=== PATIENT | male | born 1950 ===

== ENCOUNTER 2017-01-28 16:00 | Inpatient (IN) | payer MEDICAID, OTHER, SELFPAY ==
[2017-01-28 16:01] VITALS: BMI 26.4
[2017-01-28 17:15] LABS: BASO % 0.3 % (0.0-2.0); EOS # 0.1 K/uL (0.0-0.7); EOS % 0.8 % (0.0-4.0); HEMATOCRIT 26.5 % (35.0-51.0); LYMPH # 1.7 K/uL (1.0-4.3); LYMPH % 16.9 % (20.0-40.0); MEAN CELL VOLUME 95.9 fl (80.0-94.0); MEAN CORPUSCULAR HEMOGLOBIN 31.2 pg (27.0-31.0); MEAN CORPUSCULAR HGB CONC 32.6 g/dL (33.0-37.0); MEAN PLATELET VOLUME 7.4 fl (7.2-11.7); MONO # 0.8 K/uL (0.0-0.8); MONO % 7.7 % (0.0-10.0); NEUT # 7.4 K/uL (1.8-7.0); NEUT % 74.3 % (50.0-75.0); RED CELL DISTRIBUTION WIDTH 14.7 % (11.5-14.5); WHITE BLOOD COUNT 9.9 K/uL (4.8-10.8)
[2017-01-28 17:25] LABS: ALB/GLOB RATIO 0.9 (1.0-2.1); BILIRUBIN,TOTAL 0.4 mg/dl (0.2-1.3); TOTAL PROTEIN 5.9 G/DL (6.3-8.2)
[2017-01-28 17:30] LABS: POTASSIUM 5.6 MMOL/L (3.6-5.0)
[2017-01-28 17:37] LABS: TROPONIN I 0.021 ng/mL (0.00-0.120)
[2017-01-28] MEDS ORDERED: Dextrose 50% SYRINGE Inj (50 ml) IVP ONE (17:54)
[2017-01-28] MEDS ORDERED: Insulin Regular 100 units/ml IV STA (17:54)
[2017-01-28] MEDS ORDERED: Nitroglycerin 2% 1GM UD TOP STA (17:57)
--- NOTE | 2017-01-28 18:10 | ED PDOC ---
Lower Extremity Pain/Injury Time Seen by Provider: 01/28/17 16:08 Chief Complaint (Nursing): Lower Extremity Problem/Injury Chief Complaint (Provider): Bilateral Leg Swelling History Per: Patient History/Exam Limitations: no limitations Onset/Duration Of Symptoms: Days (x2 weeks) Current Symptoms Are (Timing): Still Present Severity: Moderate Additional Complaint(s): Иван Merritt is a 67 year old male, with a past medical history inclusive of HTN, COPD, anemia, CKD and alcohol abuse, who presents to the ED on 01/28/17, via EMS, for the evaluation of moderate, bilateral leg swelling that he has experienced x2 weeks. Associated lower extremity/foot redness also reported in addition to some shortness of breath, with patient reporting that symptoms have grown worse since onset. He has also noted the presence of chills and a nonproductive cough, but otherwise denies fever or chest pain. Of note, patient was recently admitted to this facility for acute renal failure 1 month ago under the service of the [facility] residents. He is a current resident of a local homeless fci. PMD: [facility] Past Medical History Reviewed: Historical Data, Nursing Documentation, Vital Signs Vital Signs: Last Vital Signs Temp 98.6 F 01/28/17 16:04 Pulse 100 H 01/28/17 16:04 Resp 22 01/28/17 16:04 BP 183/82 H 01/28/17 16:04 Pulse Ox 94 L 01/28/17 16:04 - Medical History PMH: Anemia, Arthritis, COPD, Depression, HTN, Pneumonia, Chronic Kidney Disease , Seizures Denies: HIV - Surgical History Surgical History: Denies: Coronary Stent - Family History Family History: States: Unknown Family Hx - Social History Current smoker - smoking cessation education provided: Yes (heavy (>10 cigarettes/day)) Alcohol: > 2 Drinks/Day Drugs: Denies - Immunization History Hx Tetanus Toxoid Vaccination: No Hx Influenza Vaccination: No Hx Pneumococcal Vaccination: No - Home Medications Home Medications: Ambulatory Orders Medication Instructions Recorded Citalopram [celEXA] 20 mg PO DAILY #30 tab 01/12/17 Furosemide [Lasix] 40 mg PO DAILY #30 tab 01/12/17 Labetalol [Trandate] 200 mg PO BID@0900,2100 #60 tab 01/12/17 amLODIPine [Norvasc] 10 mg PO DAILY #30 tab 01/12/17 cloNIDine [Catapres] 0.3 mg PO TID #90 tab 01/12/17 hydrALAZINE [Apresoline] 20 mg PO Q8 #90 tab 01/12/17 predniSONE [Prednisone] 20 mg PO DAILY #7 tab 01/12/17 - Allergies Allergies/Adverse Reactions: Allergies Allergy/AdvReac Type Severity Reaction Status Date / Time sulfamethoxazole Allergy RASH Verified 04/09/16 11:57 [From ] trimethoprim [From ] Allergy RASH Verified 04/09/16 11:57 Review of Systems Constitutional: Positive for: Chills. Negative for: Fever Cardiovascular: Positive for: Edema (b/l LE swelling w/redness extending to/ including feet). Negative for: Chest Pain Respiratory: Positive for: Cough. Negative for: Sputum Physical Exam - Reviewed Nursing Documentation Reviewed: Yes Vital Signs Reviewed: Yes - Physical Exam Appears: Positive for: Non-toxic, No Acute Distress (disheveled) Head Exam: Positive for: ATRAUMATIC, NORMOCEPHALIC Skin: Positive for: Normal Color, Warm, Dry Eye Exam: Positive for: Normal appearance, PERRL Neck: Positive for: Normal, Painless ROM, Supple Cardiovascular/Chest: Positive for: Regular Rate, Rhythm, Edema (pitting edema noted to b/l LE both above and below knee, inclusive of feet). Negative for: Murmur Respiratory: Positive for: Rhonchi, Respiratory Distress (mild). Negative for: Decreased Breath Sounds, Rales, Wheezing Gastrointestinal/Abdominal: Positive for: Normal Exam, Soft. Negative for: Tenderness, Distended Extremity: Positive for: Normal ROM, Other (erythema noted to b/l LE) Neurologic/Psych: Positive for: Alert, Oriented (x3) - Laboratory Results Result Diagrams: 01/28/17 17:10 01/28/17 17:10 - ECG ECG: Positive for: Interpreted By Me, Viewed By Me ECG Rhythm: Positive for: Normal QRS, Normal ST Segment, Sinus Rhythm, 1st Degree Heart Block. Negative for: ST/T Changes Rate: 89 O2 Sat by Pulse Oximetry: 94 (RA) Pulse Ox Interpretation: Normal - Radiology X-Ray: Interpreted by Me, Viewed By Me X-Ray Interpretation: Other (CHF) - CT Scan/US US LE Vein Bilat Other Rad Studies (CT/US): Read By Radiologist, Radiology Report Reviewed Other Rad Interpretation: no DVT in visualized vascular segments of the LE Medical Decision Making Medical Decision Makin:08 Initial Impression: bilateral LE swelling/erythema, shortness of breath Differential diagnoses include acute on chronic renal failure, anasarca, new onset CHF. Initial Plan: * EKG * Duplex LE Vein Bilat * CXR * Labs * Troponin I * BNP * Reevaluation 17:54 Labs reviewed, indicative of acute on chronic renal failure and hyperkalemia. Additional Orders: * Blood Type/Screen * Blood Culture * Dextrose 50% 50ml IVP * Insulin HR 4 Units IV * Lasix 40mg IVP * Nitro 1in TOP * Albuterol 0.083% 2.5mg INH * Peak Flow Pre/Post Treatment 18:23 US report reviewed: no DVT in the visualized vascular segments of the LE. See full report for further details. Patient will be admitted to Telemetry as a full inpatient under the service of [facility] for further treatment of acute on chronic renal failure and possible new onset CHF. Plan has been discussed with patient, who is in agreement. Condition fair. Scribe Attestation: Documented by Catarina Meyer, acting as a scribe for Dona Moran MD. Provider Scribe Attestation: All medical record entries made by the Scribe were at my direction and personally dictated by me. I have reviewed the chart and agree that the record accurately reflects my personal performance of the history, physical exam, medical decision making, and the department course for this patient. I have also personally directed, reviewed, and agree with the discharge instructions and disposition. Disposition - Clinical Impression Clinical Impression: Anasarca, Acute on chronic renal failure, Hyperkalemia, Anemia - Patient ED Disposition Is Patient to be Admitted: Yes Discussed With Dr.: Jennifer Barrera Doctor Will See Patient In The: ED Counseled Patient/Family Regarding: Studies Performed, Diagnosis - Disposition Disposition Time: 18:23 Condition: FAIR - Pt Status Changed To: Hospital Disposition Of: Inpatient - Admit Certification Admit to Inpatient:: After my assessment, the patient will require hospitalization for at least two midnights. This is because of the severity of symptoms shown, intensity of services needed, and/or the medical risk in this patient being treated as an outpatient. - POA Present On Arrival: None
[2017-01-28] MEDS ORDERED: Insulin Regular 100 units/ml ONE (18:12)
[2017-01-28] MEDS ORDERED: Nitroglycerin 2% 1GM UD ONE (18:13)
[2017-01-28] MEDS ORDERED: Dextrose 50% SYRINGE Inj (50 ml) ONE (18:13)
[2017-01-28] MEDS ORDERED: Albuterol 0.083% Inhal Sol (2.5 mg/3 mL) UD ONE (18:14)
--- NOTE | 2017-01-28 18:23 | US ---
EXAM: US Duplex Bilateral Lower Extremity Veins. CLINICAL HISTORY: 67 years old, male; Pain; Leg, lower; Bilateral; Additional info: Leg swelling pain TECHNIQUE: Real-time ultrasound scan of the veins of the bilateral lower extremities with color Doppler flow, spectral waveform analysis and compression. EXAM DATE/TIME: 01/28/2017 6:11 PM COMPARISON: There are no prior studies for comparison. FINDINGS: Right deep veins: Common femoral, superficial femoral, popliteal and posterior tibial veins were evaluated. All veins examined are compressible. There are no intraluminal filling defects. There is expected blood flow on Doppler imaging. There is change in waveform with augmentation. Left deep veins: unremarkable Common femoral, superficial femoral, popliteal and posterior tibial veins were evaluated. All veins examined are compressible. There are no intraluminal filling defects. There is expected blood flow on Doppler imaging. There is change in waveform with augmentation. Impression: No deep venous thrombosis in the visualized vascular segments of the lower extremities
[2017-01-28] MEDS: Albuterol 0.083% Inhal Sol (2.5 mg/3 mL) UD INH STA ×2 (18:52→18:53)
--- NOTE | 2017-01-28 20:06 | CP.PCM.HP ---
History of Present Illness - History of Present Illness History of Present Illness: Chief complaint: Flu like Symptoms/ Bilateral leg swelling HPI: 67yo homeless M with PMHx HTN, Alcohol abuse, seizure and COPD, sCHF (2016 ECHO LVEF 45-50%) c/o SOB and GUIDRY admitted for CHF excerbation and acute on chronic CKD. Duration x3-4 weeks which have remained the same, no changes recently. a/w GUIDRY. Denies fever, chills, chest pain, palpitation, headache, dizziness, abdominal pain. Compliant with medications. Went to chest clinic and [place], no new meds recieved. Didn't follow up with [facility] or Nephrology Dr. Sandoval. Denies hemoptysis, weight loss. 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 Due for Cyclophosphamide . Evaluated by Nephro, ID, Pulm, H/O. PMHx: COPD, HTN, alcohol abuse, Seizure, Anemia, Hemorrhoids, Depression, arthritis, Epidural Abscess, CHF PSHx: Denies Social hx: ex smoker. h/o Alcohol abuse. denies drug use. Homeless FHx: denies Allergies: Sulfamethoxazole/ trimethoprim Medications: checked in [facility] and last discharge note PCP: [facility], last visit 02/18/16 ED course: CBC CMP pBNP elevated CXR EKG albuterol lasix 40mg IV x1 Insulin 5mg IV x1 Present on Admission - Present on Admission Any Indicators Present on Admission: No Review of Systems - Constitutional Constitutional: absent: Chills, Fever - Cardiovascular Cardiovascular: Dyspnea. absent: Chest Pain - Respiratory Respiratory: Dyspnea, Dyspnea on Exertion - Gastrointestinal Gastrointestinal: absent: Abdominal Pain - Genitourinary Genitourinary: Voiding Freq/Small Amts - Musculoskeletal Musculoskeletal: absent: Back Pain - Neurological Neurological: absent: Headaches Past Patient History - Infectious Disease Hx of Infectious Diseases: None - Past Medical History & Family History Past Medical History?: Yes - Past Social History Alcohol: > 2 Drinks/Day Drugs: Denies - CARDIAC Hx Cardiac Disorders: Yes - PULMONARY Hx Respiratory Disorders: Yes - NEUROLOGICAL Hx Neurological Disorder: No - HEENT Hx HEENT Problems: No - RENAL Hx Chronic Kidney Disease: Yes - ENDOCRINE/METABOLIC Hx Endocrine Disorders: No - HEMATOLOGICAL/ONCOLOGICAL Hx Blood Disorders: No - INTEGUMENTARY Hx Dermatological Problems: No - MUSCULOSKELETAL/RHEUMATOLOGICAL Hx Musculoskeletal Disorders: Yes - GASTROINTESTINAL Hx Gastrointestinal Disorders: Yes Hx Hemorrhoids: Yes - GENITOURINARY/GYNECOLOGICAL Hx Genitourinary Disorders: No - PSYCHIATRIC Hx Psychophysiologic Disorder: Yes - SURGICAL HISTORY Hx Coronary Stent: No - ANESTHESIA Hx Anesthesia: Yes Hx Anesthesia Reactions: No Meds Allergies/Adverse Reactions: Allergies Allergy/AdvReac Type Severity Reaction Status Date / Time sulfamethoxazole Allergy RASH Verified 04/09/16 11:57 [From ] trimethoprim [From ] Allergy RASH Verified 04/09/16 11:57 Physical Exam - Constitutional Appears: Non-toxic, Chronically Ill - Head Exam Head Exam: ATRAUMATIC, NORMAL INSPECTION - Eye Exam Eye Exam: EOMI. absent: Scleral icterus - ENT Exam ENT Exam: Mucous Membranes Moist - Neck Exam Neck exam: Positive for: Normal Inspection - Respiratory Exam Respiratory Exam: Decreased Breath Sounds (upper lung [place]), Rales (lower lung fieds). absent: Wheezes - Cardiovascular Exam Cardiovascular Exam: REGULAR RHYTHM - GI/Abdominal Exam GI & Abdominal Exam: Normal Bowel Sounds, Soft - Extremities Exam Extremities exam: Positive for: pedal edema (pitting 3+/4+), tenderness - Neurological Exam Neurological exam: Alert, Oriented x3 Results - Vital Signs Recent Vital Signs: Last Vital Signs Temp 98 F 01/28/17 19:53 Pulse 100 H 01/28/17 19:53 Resp 20 01/28/17 19:53 BP 142/88 01/28/17 19:53 Pulse Ox 94 L 01/28/17 18:49 - Labs Result Diagrams: 01/28/17 17:10 01/28/17 17:10 Labs: Laboratory Results - last 24 hr 01/28/17 18:45 Blood Type A POSITIVE Antibody Screen Negative BBK History Checked Patient has bt Assessment & Plan - Assessment and Plan (Free Text) Assessment: 67yo homeless M with PMHx HTN, Alcohol abuse, seizure and COPD, sCHF (12/2016 ECHO LVEF 45-50%) c/o SOB and GUIDRY admitted for CHF excerbation and acute on chronic CKD. 1) acute Systolic CHF exacerbation 12/2016 ECHO LVEF 45-50% -pBNP 7860 -lasix 20mg IV BID -daily weight -I/O -cont tele -duonebs -c/s cardio 2) acute on chronic CKD, h/o +ANCA glomerulonephropathy -monitor BUN/Cr -next cyclophosphamide 600mg PO x1 scheduled for 01/31/17 -c/s [employer] Dr Sandoval 3) HTN, secondary to glomerulopathy -c/w hydralazine, amlodipine, clonidine -hold labetolol d/t CHF exacerbation 4)Latent TB -received immunosuppressive tx cyclophosphamide -INH and vitamin 6 5)hyperkalemia K+ 5.6 -recieved insulin in ED -repeat BMP 6)Anemia, chronic -secondary to CKD -F/U H/H 7)Depression -Celexa 8)DVT prophylaxis -heparin -SCDs prn Decision To Admit - Pt Status Changed To: Hospital Disposition Of: Inpatient - Admit Certification Admit to Inpatient:: After my assessment, the patient will require hospitalization for at least two midnights. This is because of the severity of symptoms shown, intensity of services needed, and/or the medical risk in this patient being treated as an outpatient. - . Bed Request Type: Telemetry Admitting Physician: Andrey Mcwilliams
--- NOTE | 2017-01-29 06:56 | RAD ---
HISTORY: dyspnea COMPARISON: 01/09/2017 FINDINGS: LUNGS: Right upper lobe pneumonia. PLEURA: Small left pleural effusion. CARDIOVASCULAR: Normal. OSSEOUS STRUCTURES: No significant abnormalities. VISUALIZED UPPER ABDOMEN: Normal. OTHER FINDINGS: None. IMPRESSION: Right upper lobe pneumonia and small left pleural effusion.
[2017-01-29] MEDS: Albuterol-Ipratrop 3 mg / 0.5 (3 ml) UD INH SCH ×3 (07:59→19:30)
--- NOTE | 2017-01-29 08:18 | CARD ---
APPROVED REPORT EKG Measurement Heart [id number] <Conclusion> Sinus rhythm with 1st degree AV block Right atrial enlargement Borderline ECG
[2017-01-29] MEDS: Pyridoxine 100 mg Tab PO SCH (08:26)
[2017-01-29 08:58] LABS: HEMATOCRIT 23.5 % (35.0-51.0); MEAN CELL VOLUME 95.2 fl (80.0-94.0); MEAN CORPUSCULAR HEMOGLOBIN 31.2 pg (27.0-31.0); MEAN CORPUSCULAR HGB CONC 32.8 g/dL (33.0-37.0); RED CELL DISTRIBUTION WIDTH 14.9 % (11.5-14.5); WHITE BLOOD COUNT 7.1 K/uL (4.8-10.8)
[2017-01-29] MEDS ORDERED: Enoxaparin 30 mg Syringe SC SCH (09:00)
[2017-01-29 09:05] LABS: CALCIUM 7.8 mg/dL (8.4-10.2); POTASSIUM 4.8 MMOL/L (3.6-5.0)
[2017-01-29 12:02] LABS: MAGNESIUM 1.6 MG/DL (1.6-2.3); PHOSPHOROUS 5.1 mg/dl (2.5-4.5)
--- NOTE | 2017-01-29 13:45 | CP.PCM.PCO ---
Physician Communication Note - Physician Communication Note Physician Communication Note: Kaykay MEDRANO Addendum Addendum: 01/29/17 13:36 67 YO M resting comfortable in bed, was admitted early this morning. PT states his breathing has improved overnight and he is feeling better. Denies Chest pain, N/V/D. - Continue current management.
[2017-01-30 06:56] LABS: HEMATOCRIT 24.2 % (35.0-51.0); MEAN CELL VOLUME 95.5 fl (80.0-94.0); MEAN CORPUSCULAR HGB CONC 32.5 g/dL (33.0-37.0); RED CELL DISTRIBUTION WIDTH 14.9 % (11.5-14.5); WHITE BLOOD COUNT 7.4 K/uL (4.8-10.8)
[2017-01-30 07:14] LABS: ALB/GLOB RATIO 0.8 (1.0-2.1); BILIRUBIN,TOTAL 0.3 mg/dl (0.2-1.3); CALCIUM 7.8 mg/dL (8.4-10.2); MAGNESIUM 1.6 MG/DL (1.6-2.3); PHOSPHOROUS 5.5 mg/dl (2.5-4.5); TOTAL PROTEIN 5.4 G/DL (6.3-8.2)
[2017-01-30 07:20] LABS: POTASSIUM 5.5 MMOL/L (3.6-5.0)
[2017-01-30] MEDS: Albuterol-Ipratrop 3 mg / 0.5 (3 ml) UD INH SCH ×4 (07:41→21:33)
--- NOTE | 2017-01-30 09:31 | CP.PCM.PN ---
Subjective - Date & Time of Evaluation Date of Evaluation: 01/30/17 Time of Evaluation: 07:15 - Subjective Subjective: Patient seen and examined bedside. looks comfortable using O2 NC. Reports B/L swelling worse during the last 7 days. Denies chest pain, SOB, N/V. Reports 1 nonbloddy diarrhea today. Patient pending for cyclophosphamide tomorrow. Objective - Vital Signs/Intake and Output Vital Signs (last 24 hours): Temp Pulse Resp BP Pulse Ox 98.9 F 86 18 128/61 94 L 01/30/17 05:27 01/30/17 05:27 01/30/17 05:27 01/30/17 05:27 01/30/17 05:27 Intake and Output: 01/30/17 01/30/17 06:59 18:59 Intake Total 360 Output Total 400 Balance -40 - Medications Medications: Current Medications Albuterol/Ipratropium (Duoneb 3 Mg/0.5 Mg (3 Ml) Ud) 3 ml INH RTID [facility] Last Admin: 01/30/17 07:41 Dose: 3 ml Amlodipine Besylate (Norvasc) 5 mg PO DAILY [facility] Last Admin: 01/29/17 12:30 Dose: 5 mg Citalopram Hydrobromide (Celexa) 20 mg PO DAILY [facility] Last Admin: 01/29/17 08:22 Dose: 20 mg Clonidine HCl (Catapres) 0.3 mg PO TID [facility] Last Admin: 01/29/17 16:47 Dose: 0.3 mg Furosemide (Lasix) 40 mg IVP STAT STA Stop: 01/30/17 09:30 Furosemide (Lasix) 40 mg IVP DAILY [facility] Heparin Sodium (Porcine) (Heparin) 5,000 units SC Q12 [facility] PRN Reason: Protocol Last Admin: 01/29/17 21:42 Dose: 5,000 units Hydralazine HCl (Apresoline) 25 mg PO Q6 [facility] Last Admin: 01/30/17 05:00 Dose: 25 mg Isoniazid (Niazid) 300 mg PO DAILY [facility] Last Admin: 01/29/17 08:25 Dose: 300 mg Labetalol HCl (Trandate) 200 mg PO BID@0900,2100 [facility] Pyridoxine HCl (Vitamin B6) 100 mg PO DAILY [facility] Last Admin: 01/29/17 08:26 Dose: 100 mg - Labs Labs: 01/30/17 06:10 01/30/17 06:10 - Constitutional Appears: Non-toxic, No Acute Distress - Head Exam Head Exam: ATRAUMATIC, NORMOCEPHALIC - Eye Exam Eye Exam: Normal appearance - Respiratory Exam Respiratory Exam: Decreased Breath Sounds, Rales Additional comments: B/L lung bases rales, Left lung base decreased breath entry - Cardiovascular Exam Cardiovascular Exam: REGULAR RHYTHM, +S1, +S2 - GI/Abdominal Exam GI & Abdominal Exam: Distended, Soft, Normal Bowel Sounds Additional comments: distended for fatty tissue or for anasarca in SHERRY - Extremities Exam Extremities Exam: Pedal Edema - Neurological Exam Neurological Exam: Alert, Awake, Oriented x3 - Psychiatric Exam Psychiatric exam: Normal Affect, Normal Mood - Skin Skin Exam: Erythema (scattered small areas of erythema B/L legs ) Assessment and Plan - Assessment and Plan (Free Text) Plan: 67 yo, m , homeless living in a snf, PMHx HTN, Alcohol abuse, seizure, COPD, CHF (12/2016 ECHO LVEF 45-50%), 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 Cyclophosphamide aisha for tomorrow. cyclophosphamide 650 mg IV x1 scheduled for tomorrow. Cyclophosphamide every month x 6 months. Tomorrow second dosis. 3) Pneumonia HCAP -Recent hospitalization. recent discharge 01/13 -SOB, chills, subjective fever -Afebrile on hospital. possible secondary to immunodepression. -CXR: left upper lobe pneumonia. mild left pleural effusion. -Vancomycin 1.25g IV daily renal dosis -Levofloxacin 750 mg Q48 h renal dosis -Rocephin 1 g IV daily 4) HTN - secondary to glomerulopathy -c/w hydralazine, amlodipine, clonidine -hold labetolol d/t CHF exacerbation 5) Latent TB -Started on treatment on last admission -Uncertain if had f/u with chest clinic -c/w INH and vitamin 6 6)hyperkalemia -secondary to renal failure -K 5.5 -recieved insulin in ED -[employer] consult appreciated -F/U BMP 7)Anemia, chronic -secondary to CKD -F/U H/H 8)Depression -Celexa 9)DVT prophylaxis -heparin -SCDs prn
[2017-01-30] MEDS: Pyridoxine 100 mg Tab PO SCH (09:59)
--- NOTE | 2017-01-30 11:08 | CP.PCM.CON ---
History of Present Illness - History of Present Illness History of Present Illness: Patient is 67 years of age admitted with leg swollen. 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 Patient was treated with Cytoxan 750 mg 4 weeks ago and he developed side effect. Review of Systems - Constitutional Constitutional: As Per HPI, Weakness - Cardiovascular Cardiovascular: Leg Edema. absent: Chest Pain - Respiratory Respiratory: Dyspnea on Exertion. absent: Cough - Gastrointestinal Gastrointestinal: absent: Abdominal Pain - Genitourinary Genitourinary: Nocturia - Musculoskeletal Musculoskeletal: Muscle Weakness - Psychiatric Psychiatric: As Per HPI - Endocrine Endocrine: As Per HPI - Hematologic/Lymphatic Hematologic: As Per HPI Past Patient History - Infectious Disease Hx of Infectious Diseases: None - Past Medical History & Family History Past Medical History?: Yes - Past Social History Alcohol: > 2 Drinks/Day Drugs: Denies - CARDIAC Hx Cardiac Disorders: Yes - PULMONARY Hx Respiratory Disorders: Yes - NEUROLOGICAL Hx Neurological Disorder: No - HEENT Hx HEENT Problems: No - RENAL Hx Chronic Kidney Disease: Yes - ENDOCRINE/METABOLIC Hx Endocrine Disorders: No - HEMATOLOGICAL/ONCOLOGICAL Hx Blood Disorders: No - INTEGUMENTARY Hx Dermatological Problems: No - MUSCULOSKELETAL/RHEUMATOLOGICAL Hx Musculoskeletal Disorders: Yes - GASTROINTESTINAL Hx Gastrointestinal Disorders: Yes Hx Hemorrhoids: Yes - GENITOURINARY/GYNECOLOGICAL Hx Genitourinary Disorders: No - PSYCHIATRIC Hx Psychophysiologic Disorder: Yes - SURGICAL HISTORY Hx Coronary Stent: No - ANESTHESIA Hx Anesthesia: Yes Hx Anesthesia Reactions: No Meds Allergies/Adverse Reactions: Allergies Allergy/AdvReac Type Severity Reaction Status Date / Time sulfamethoxazole Allergy RASH Verified 04/09/16 11:57 [From ] trimethoprim [From ] Allergy RASH Verified 04/09/16 11:57 - Medications Medications: Current Medications Albuterol/Ipratropium (Duoneb 3 Mg/0.5 Mg (3 Ml) Ud) 3 ml INH RTID [facility] Last Admin: 01/30/17 07:41 Dose: 3 ml Amlodipine Besylate (Norvasc) 5 mg PO DAILY [facility] Last Admin: 01/30/17 09:58 Dose: 5 mg Citalopram Hydrobromide (Celexa) 20 mg PO DAILY [facility] Last Admin: 01/30/17 09:46 Dose: 20 mg Clonidine HCl (Catapres) 0.3 mg PO TID [facility] Last Admin: 01/30/17 09:45 Dose: 0.3 mg Furosemide (Lasix) 40 mg IVP DAILY [facility] Heparin Sodium (Porcine) (Heparin) 5,000 units SC Q12 [facility] PRN Reason: Protocol Last Admin: 01/30/17 09:46 Dose: 5,000 units Hydralazine HCl (Apresoline) 25 mg PO Q6 [facility] Last Admin: 01/30/17 09:44 Dose: 25 mg Isoniazid (Niazid) 300 mg PO DAILY [facility] Last Admin: 01/30/17 09:57 Dose: 300 mg Labetalol HCl (Trandate) 200 mg PO BID@0900,2100 [facility] Pyridoxine HCl (Vitamin B6) 100 mg PO DAILY [facility] Last Admin: 01/30/17 09:59 Dose: 100 mg Physical Exam - Constitutional Appears: No Acute Distress - ENT Exam ENT Exam: Mucous Membranes Moist - Respiratory Exam Respiratory Exam: NORMAL BREATHING PATTERN. absent: Chest Wall Tenderness - Cardiovascular Exam Cardiovascular Exam: REGULAR RHYTHM. absent: Rubs - GI/Abdominal Exam GI & Abdominal Exam: Normal Bowel Sounds - Extremities Exam Extremities exam: Negative for: calf tenderness - Back Exam Back exam: absent: CVA tenderness (L), CVA tenderness (R) Results - Vital Signs Recent Vital Signs: Last Vital Signs Temp 98.9 F 01/30/17 05:27 Pulse 92 H 01/30/17 09:58 Resp 18 01/30/17 05:27 BP 150/77 01/30/17 09:59 Pulse Ox 94 L 01/30/17 05:27 - Labs Result Diagrams: 01/30/17 06:10 01/30/17 06:10 Labs: Laboratory Results - last 24 hr 01/29/17 01/30/17 11:47 06:10 WBC 7.4 RBC 2.53 L Hgb 7.8 L Hct 24.2 L MCV 95.5 H MCH 31.0 MCHC 32.5 L RDW 14.9 H Plt Count 229 Sodium 144 Potassium 5.5 H Chloride 115 H Carbon Dioxide 18 L Anion Gap 17 BUN 44 H Creatinine 3.3 H Est GFR ( Amer) 23 Est GFR (Non-Af Amer) 19 Random Glucose 95 Calcium 7.8 L Phosphorus 5.1 H 5.5 H Magnesium 1.6 1.6 Total Bilirubin 0.3 AST 18 ALT 29 Alkaline Phosphatase 79 Total Protein 5.4 L Albumin 2.4 L Globulin 3.0 Albumin/Globulin Ratio 0.8 L Assessment & Plan (1) Anemia Status: Acute Priority: High (2) Acute on chronic renal failure Assessment and Plan: Patient perhaps has at this point acute on chronic kidney disease With the kidney biopsy last admission showed: bx reviewed - 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 Patient was given Cytoxan 750 mg Lasix admission and he had some side effect for which he will need to have another dose of Cytoxan tomorrow which has been scheduled. But we will decrease the dose to 650 mg. Also please transfusion at least 1 unit of packed cells before the chemotherapy should be given which is scheduled for tomorrow. Status: Acute
[2017-01-31] MEDS ORDERED: Albuterol-Ipratrop 3 mg / 0.5 (3 ml) UD INH STA ×2 (00:17→06:36)
--- NOTE | 2017-01-31 02:42 | CP.PCM.CON ---
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 The patient is scheduled to receive Cytoxan tomorrow by nephrology. The patient denies blood problems in the past. He denies abnormal bleeding and bruising but did have hematuria during this admission. Past medical history: tobacco abuse, htn, Past surgical history: None Family history: Denies hematologic and oncologic problems Social history: 1ppd x 35 years, denies alcohol, and illicit drug use. Allergies: Bactrim Review of systems: All remaining review of systems including HEENT, cardiovascular, respiratory, gastrointestinal, genitourinary, musculoskeletal, dermatologic, neurologic, and psychiatric are negative unless mentioned in the HPI. Past Patient History - Infectious Disease Hx of Infectious Diseases: None - Past Medical History & Family History Past Medical History?: Yes - Past Social History Alcohol: > 2 Drinks/Day Drugs: Denies - CARDIAC Hx Cardiac Disorders: Yes - PULMONARY Hx Respiratory Disorders: Yes - NEUROLOGICAL Hx Neurological Disorder: No - HEENT Hx HEENT Problems: No - RENAL Hx Chronic Kidney Disease: Yes - ENDOCRINE/METABOLIC Hx Endocrine Disorders: No - HEMATOLOGICAL/ONCOLOGICAL Hx Blood Disorders: No - INTEGUMENTARY Hx Dermatological Problems: No - MUSCULOSKELETAL/RHEUMATOLOGICAL Hx Musculoskeletal Disorders: Yes - GASTROINTESTINAL Hx Gastrointestinal Disorders: Yes Hx Hemorrhoids: Yes - GENITOURINARY/GYNECOLOGICAL Hx Genitourinary Disorders: No - PSYCHIATRIC Hx Psychophysiologic Disorder: Yes - SURGICAL HISTORY Hx Coronary Stent: No - ANESTHESIA Hx Anesthesia: Yes Hx Anesthesia Reactions: No Meds Allergies/Adverse Reactions: Allergies Allergy/AdvReac Type Severity Reaction Status Date / Time sulfamethoxazole Allergy RASH Verified 04/09/16 11:57 [From ] trimethoprim [From ] Allergy RASH Verified 04/09/16 11:57 - Medications Medications: Current Medications Albuterol/Ipratropium (Duoneb 3 Mg/0.5 Mg (3 Ml) Ud) 3 ml INH RTID [facility] Last Admin: 01/30/17 21:33 Dose: 3 ml Amlodipine Besylate (Norvasc) 5 mg PO DAILY [facility] Last Admin: 01/30/17 09:58 Dose: 5 mg Citalopram Hydrobromide (Celexa) 20 mg PO DAILY [facility] Last Admin: 01/30/17 09:46 Dose: 20 mg Clonidine HCl (Catapres) 0.3 mg PO TID [facility] Last Admin: 01/30/17 17:17 Dose: 0.3 mg Famotidine (Pepcid) 20 mg IVPB ONCE ONE Stop: 01/31/17 11:41 Furosemide (Lasix) 40 mg IVP DAILY [facility] Heparin Sodium (Porcine) (Heparin) 5,000 units SC Q12 [facility] PRN Reason: Protocol Last Admin: 01/30/17 21:28 Dose: 5,000 units Hydralazine HCl (Apresoline) 25 mg PO Q6 [facility] Last Admin: 01/30/17 21:28 Dose: 25 mg Cyclophosphamide 650 mg/ (Sodium Chloride) 250 mls @ 0 mls/hr IV ONCE ONE PRN Reason: Per Protocol Stop: 01/31/17 11:36 Ondansetron HCl 16 mg/ Sodium (Chloride) 58 mls @ 116 mls/hr IVPB ONCE ONE Stop: 01/31/17 12:07 Diphenhydramine HCl 25 mg/ (Sodium Chloride) 50.5 mls @ 101 mls/hr IVPB ONCE ONE Stop: 01/31/17 12:08 Dexamethasone 10 mg/ Sodium (Chloride) 51 mls @ 102 mls/hr IVPB ONCE ONE Stop: 01/31/17 12:08 Levofloxacin/Dextrose (Levaquin 750mg) 150 mls @ 100 mls/hr IVPB QOTHERDAY@ 2100 [facility] Last Admin: 01/30/17 22:00 Dose: 100 mls/hr Ceftriaxone Sodium 1 gm/ (Sodium Chloride) 100 mls @ 100 mls/hr IVPB 2000 [facility] Last Admin: 01/30/17 20:45 Dose: 100 mls/hr Vancomycin HCl 1.25 gm/ Sodium (Chloride) 250 mls @ 166.667 mls/hr IVPB 2200 [facility] Last Admin: 01/31/17 00:33 Dose: 166.667 mls/hr Isoniazid (Niazid) 300 mg PO DAILY [facility] Last Admin: 01/30/17 09:57 Dose: 300 mg Labetalol HCl (Trandate) 200 mg PO BID@0900,2100 [facility] Pyridoxine HCl (Vitamin B6) 100 mg PO DAILY [facility] Last Admin: 01/30/17 09:59 Dose: 100 mg Physical Exam - Head Exam Head Exam: ATRAUMATIC - Eye Exam Eye Exam: Normal appearance - ENT Exam ENT Exam: Mucous Membranes Dry - Respiratory Exam Respiratory Exam: NORMAL BREATHING PATTERN - Cardiovascular Exam Cardiovascular Exam: +S1, +S2 - GI/Abdominal Exam GI & Abdominal Exam: Normal Bowel Sounds - Extremities Exam Extremities exam: Positive for: normal inspection - Neurological Exam Neurological exam: Oriented x3 - Psychiatric Exam Psychiatric exam: Normal Affect, Normal Mood - Skin Skin Exam: Warm Results - Vital Signs Recent Vital Signs: Last Vital Signs Temp 98.7 F 01/30/17 23:40 Pulse 78 01/30/17 23:40 Resp 16 01/30/17 23:40 BP 137/62 01/30/17 23:40 Pulse Ox 95 01/30/17 23:40 - Labs Result Diagrams: 01/30/17 06:10 01/30/17 06:10 Labs: Laboratory Results - last 24 hr 01/28/17 01/30/17 18:45 06:10 WBC 7.4 RBC 2.53 L Hgb 7.8 L Hct 24.2 L MCV 95.5 H MCH 31.0 MCHC 32.5 L RDW 14.9 H Plt Count 229 Sodium 144 Potassium 5.5 H Chloride 115 H Carbon Dioxide 18 L Anion Gap 17 BUN 44 H Creatinine 3.3 H Est GFR ( Amer) 23 Est GFR (Non-Af Amer) 19 Random Glucose 95 Calcium 7.8 L Phosphorus 5.5 H Magnesium 1.6 Total Bilirubin 0.3 AST 18 ALT 29 Alkaline Phosphatase 79 Total Protein 5.4 L Albumin 2.4 L Globulin 3.0 Albumin/Globulin Ratio 0.8 L Blood Type A POSITIVE Antibody Screen Negative Crossmatch See Detail BBK History Checked Patient has bt Assessment & Plan (1) Anemia Assessment and Plan: chronic disease, chemotherapy, renal disease recommend transfusing 2U PRBC consider Procrit supplementation to decrease transfusion dependence Thank you for this interesting consult. Status: Acute Priority: High
[2017-01-31 07:03] LABS: RBC URINE 167 /hpf (0-3); URINE BILIRUBIN NEGATIVE (NEGATIVE); URINE BLOOD MODERATE (NEGATIVE); URINE COLOR YELLOW (YELLOW); URINE GLUCOSE (UA) NEG (Normal); URINE KETONE NEGATIVE (NEGATIVE); URINE LEUKOCYTE ESTERASE NEG Leu/uL (Negative); URINE PROTEIN >=500 mg/dL (NEGATIVE); URINE UROBILINOGEN 0.2-1.0 mg/dL (0.2-1.0); WBC URINE 5 /hpf (0-5)
[2017-01-31 07:11] LABS: HEMATOCRIT 25.7 % (35.0-51.0); MEAN CELL VOLUME 94.4 fl (80.0-94.0); MEAN CORPUSCULAR HEMOGLOBIN 31.6 pg (27.0-31.0); MEAN CORPUSCULAR HGB CONC 33.5 g/dL (33.0-37.0); RED CELL DISTRIBUTION WIDTH 14.8 % (11.5-14.5); WHITE BLOOD COUNT 6.9 K/uL (4.8-10.8)
[2017-01-31 07:39] LABS: ALB/GLOB RATIO 0.8 (1.0-2.1); BILIRUBIN,TOTAL 0.2 mg/dl (0.2-1.3); CALCIUM 7.6 mg/dL (8.4-10.2); TOTAL PROTEIN 5.5 G/DL (6.3-8.2)
--- NOTE | 2017-01-31 08:10 | CP.PCM.PN ---
Subjective - Date & Time of Evaluation Date of Evaluation: 01/31/17 Time of Evaluation: 07:00 - Subjective Subjective: Patient seen and examined bedside. Reports dyspnea today in the morning when he was in the restroom. Duoneb given. Patient comfortable now, breathing w/o difficulty and coughing productive white expectoration . Denies chest pain, palpitation. Urinating frequent. no macrohematuria noted. Objective - Vital Signs/Intake and Output Vital Signs (last 24 hours): Temp Pulse Resp BP Pulse Ox 99.4 F 83 18 144/69 95 01/31/17 07:58 01/31/17 07:58 01/31/17 07:58 01/31/17 07:58 01/31/17 07:58 - Medications Medications: Current Medications Albuterol/Ipratropium (Duoneb 3 Mg/0.5 Mg (3 Ml) Ud) 3 ml INH RTID [facility] Last Admin: 01/30/17 21:33 Dose: 3 ml Amlodipine Besylate (Norvasc) 5 mg PO DAILY [facility] Last Admin: 01/30/17 09:58 Dose: 5 mg Citalopram Hydrobromide (Celexa) 20 mg PO DAILY [facility] Last Admin: 01/30/17 09:46 Dose: 20 mg Clonidine HCl (Catapres) 0.3 mg PO TID [facility] Last Admin: 01/30/17 17:17 Dose: 0.3 mg Famotidine (Pepcid) 20 mg IVPB ONCE ONE Stop: 01/31/17 11:41 Furosemide (Lasix) 40 mg IVP DAILY [facility] Heparin Sodium (Porcine) (Heparin) 5,000 units SC Q12 [facility] PRN Reason: Protocol Last Admin: 01/30/17 21:28 Dose: 5,000 units Hydralazine HCl (Apresoline) 25 mg PO Q6 [facility] Last Admin: 01/31/17 04:42 Dose: 25 mg Cyclophosphamide 650 mg/ (Sodium Chloride) 250 mls @ 0 mls/hr IV ONCE ONE PRN Reason: Per Protocol Stop: 01/31/17 11:36 Ondansetron HCl 16 mg/ Sodium (Chloride) 58 mls @ 116 mls/hr IVPB ONCE ONE Stop: 01/31/17 12:07 Diphenhydramine HCl 25 mg/ (Sodium Chloride) 50.5 mls @ 101 mls/hr IVPB ONCE ONE Stop: 01/31/17 12:08 Dexamethasone 10 mg/ Sodium (Chloride) 51 mls @ 102 mls/hr IVPB ONCE ONE Stop: 01/31/17 12:08 Levofloxacin/Dextrose (Levaquin 750mg) 150 mls @ 100 mls/hr IVPB QOTHERDAY@ 2100 [facility] Last Admin: 01/30/17 22:00 Dose: 100 mls/hr Ceftriaxone Sodium 1 gm/ (Sodium Chloride) 100 mls @ 100 mls/hr IVPB 1999 [facility] Last Admin: 01/30/17 20:45 Dose: 100 mls/hr Vancomycin HCl 1.25 gm/ Sodium (Chloride) 250 mls @ 166.667 mls/hr IVPB 2199 [facility] Last Admin: 01/31/17 00:33 Dose: 166.667 mls/hr Isoniazid (Niazid) 300 mg PO DAILY [facility] Last Admin: 01/30/17 09:57 Dose: 300 mg Labetalol HCl (Trandate) 200 mg PO BID@0900,2100 [facility] Pyridoxine HCl (Vitamin B6) 100 mg PO DAILY [facility] Last Admin: 01/30/17 09:59 Dose: 100 mg - Labs Labs: 01/31/17 05:35 01/31/17 05:35 - Constitutional Appears: Non-toxic, No Acute Distress - Head Exam Head Exam: ATRAUMATIC, NORMOCEPHALIC - Eye Exam Eye Exam: Normal appearance - Respiratory Exam Respiratory Exam: Decreased Breath Sounds, Rales Additional comments: Decreased breath sound left lung base. Scattered rales B/L lung bases - Cardiovascular Exam Cardiovascular Exam: REGULAR RHYTHM, +S1, +S2 - GI/Abdominal Exam GI & Abdominal Exam: Soft, Normal Bowel Sounds. 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 Second dosis due. -Cyclophosphamide hold for HCAP 3) Pneumonia HCAP -Recent hospitalization. recent discharge 01/13 -SOB, chills, subjective fever -Afebrile on hospital. possible secondary to immunodepression. -CXR: left upper lobe pneumonia. mild left pleural effusion. -Vancomycin 1.25g IV daily renal dosis -Levofloxacin 750 mg Q48 h renal dosis -Rocephin 1 g IV daily -ID consult suggested 4) HTN - secondary to glomerulopathy -c/w hydralazine, amlodipine, clonidine -hold labetolol d/t CHF exacerbation 5) Latent TB -Started on treatment on last admission -Uncertain if had f/u with chest clinic -c/w INH and vitamin 6 6)hyperkalemia -resolved -secondary to renal failure -K 5.0 corrected -duoneb received today -Piercing Mill Operator consult appreciated -F/U BMP 7)Anemia, chronic -secondary to CKD -F/U H/H 8)Depression -Celexa 9)DVT prophylaxis -heparin. Patient with CKD -SCDs prn
[2017-01-31] MEDS: Albuterol-Ipratrop 3 mg / 0.5 (3 ml) UD INH SCH ×3 (08:30→21:22)
[2017-01-31] MEDS: Pyridoxine 100 mg Tab PO SCH (09:48)
[2017-01-31] MEDS ORDERED: SODIUM CHLORIDE 0.45% IV ONE (11:35)
[2017-01-31] MEDS ORDERED: CYCLOPHOSPHAMIDE IV ONE (11:35)
[2017-01-31] MEDS ORDERED: Dexamethasone 10 MG in Sodium Chloride 0.9% 50 ML IVPB ONE (11:39)
[2017-01-31] MEDS ORDERED: Lidocaine 1% Inj (20ml) ONE (12:35)
--- NOTE | 2017-01-31 12:58 | PCM.SURG1 ---
Surgeon's Initial Post Op Note - Surgeon's Notes Surgeon: Gentry Long Line Teamster: None Type of Anesthesia: Local Pre-Operative Diagnosis: IV access Operative Findings: Patent right basilic vein Post-Operative Diagnosis: IV access Operation Performed: Right basilic vein 4F SL 40cm PICC placed. Specimen/Specimens Removed: None Estimated Blood Loss: EBL {In ML}: 1 Date of Surgery/Procedure: 01/31/17 Time of Surgery/Procedure: 12:55
--- NOTE | 2017-01-31 13:11 | CP.PCM.PN ---
Subjective - Date & Time of Evaluation Date of Evaluation: 01/31/17 Time of Evaluation: 13:00 - Subjective Subjective: No complaints. Objective - Vital Signs/Intake and Output Vital Signs (last 24 hours): Temp Pulse Resp BP Pulse Ox 98 F 80 18 143/76 97 01/31/17 12:47 01/31/17 12:47 01/31/17 12:47 01/31/17 12:47 01/31/17 12:19 - Medications Medications: Current Medications Albuterol/Ipratropium (Duoneb 3 Mg/0.5 Mg (3 Ml) Ud) 3 ml INH RTID [facility] Last Admin: 01/31/17 08:30 Dose: 3 ml Amlodipine Besylate (Norvasc) 5 mg PO DAILY [facility] Last Admin: 01/31/17 09:50 Dose: 5 mg Citalopram Hydrobromide (Celexa) 20 mg PO DAILY [facility] Last Admin: 01/31/17 09:50 Dose: 20 mg Clonidine HCl (Catapres) 0.3 mg PO TID [facility] Last Admin: 01/31/17 09:48 Dose: 0.3 mg Furosemide (Lasix) 40 mg IVP DAILY [facility] Last Admin: 01/31/17 09:51 Dose: 40 mg Heparin Sodium (Porcine) (Heparin) 5,000 units SC Q12 [facility] PRN Reason: Protocol Last Admin: 01/30/17 21:28 Dose: 5,000 units Hydralazine HCl (Apresoline) 25 mg PO Q6 [facility] Last Admin: 01/31/17 09:49 Dose: 25 mg Levofloxacin/Dextrose (Levaquin 750mg) 150 mls @ 100 mls/hr IVPB QOTHERDAY@ 2100 [facility] Last Admin: 01/30/17 22:00 Dose: 100 mls/hr Ceftriaxone Sodium 1 gm/ (Sodium Chloride) 100 mls @ 100 mls/hr IVPB 2000 [facility] Last Admin: 01/30/17 20:45 Dose: 100 mls/hr Vancomycin HCl 1.25 gm/ Sodium (Chloride) 250 mls @ 166.667 mls/hr IVPB 2200 [facility] Last Admin: 01/31/17 00:33 Dose: 166.667 mls/hr Isoniazid (Niazid) 300 mg PO DAILY [facility] Last Admin: 01/31/17 09:49 Dose: 300 mg Labetalol HCl (Trandate) 200 mg PO BID@0900,2100 [facility] Pyridoxine HCl (Vitamin B6) 100 mg PO DAILY [facility] Last Admin: 01/31/17 09:48 Dose: 100 mg - Labs Labs: 01/31/17 05:35 01/31/17 05:35 - Head Exam Head Exam: ATRAUMATIC - ENT Exam ENT Exam: Mucous Membranes Dry - Respiratory Exam Respiratory Exam: NORMAL BREATHING PATTERN - Cardiovascular Exam Cardiovascular Exam: +S1, +S2 - GI/Abdominal Exam GI & Abdominal Exam: Normal Bowel Sounds - Extremities Exam Extremities Exam: Pedal Edema Assessment and Plan (1) ANCA-associated vasculitis Assessment & Plan: on Cytoxan per nephrology would recommend holding chemotherapy while patient has active infection as chemotherapy will immunocompromise the patient Status: Acute (2) Anemia Assessment & Plan: chronic disease, renal diseas, prior chemotherapy agree with transfusion support Status: Acute
--- NOTE | 2017-01-31 14:28 | CP.PCM.PN ---
Subjective - Date & Time of Evaluation Date of Evaluation: 01/31/17 Time of Evaluation: 14:25 - Subjective Subjective: seen and examined feels warm Objective - Vital Signs/Intake and Output Vital Signs (last 24 hours): Temp Pulse Resp BP Pulse Ox 98 F 84 18 150/82 97 01/31/17 12:47 01/31/17 13:30 01/31/17 12:47 01/31/17 13:30 01/31/17 12:19 - Medications Medications: Current Medications Albuterol/Ipratropium (Duoneb 3 Mg/0.5 Mg (3 Ml) Ud) 3 ml INH RTID [facility] Last Admin: 01/31/17 13:54 Dose: 3 ml Amlodipine Besylate (Norvasc) 5 mg PO DAILY [facility] Last Admin: 01/31/17 09:50 Dose: 5 mg Citalopram Hydrobromide (Celexa) 20 mg PO DAILY [facility] Last Admin: 01/31/17 09:50 Dose: 20 mg Clonidine HCl (Catapres) 0.3 mg PO TID [facility] Last Admin: 01/31/17 13:30 Dose: Not Given Furosemide (Lasix) 40 mg IVP DAILY [facility] Last Admin: 01/31/17 09:51 Dose: 40 mg Heparin Sodium (Porcine) (Heparin) 5,000 units SC Q12 [facility] PRN Reason: Protocol Last Admin: 01/30/17 21:28 Dose: 5,000 units Hydralazine HCl (Apresoline) 25 mg PO Q6 [facility] Last Admin: 01/31/17 09:49 Dose: 25 mg Levofloxacin/Dextrose (Levaquin 750mg) 150 mls @ 100 mls/hr IVPB QOTHERDAY@ 2100 [facility] Last Admin: 01/30/17 22:00 Dose: 100 mls/hr Ceftriaxone Sodium 1 gm/ (Sodium Chloride) 100 mls @ 100 mls/hr IVPB 2000 [facility] Last Admin: 01/30/17 20:45 Dose: 100 mls/hr Vancomycin HCl 1.25 gm/ Sodium (Chloride) 250 mls @ 166.667 mls/hr IVPB 2200 [facility] Last Admin: 01/31/17 00:33 Dose: 166.667 mls/hr Isoniazid (Niazid) 300 mg PO DAILY [facility] Last Admin: 01/31/17 09:49 Dose: 300 mg Labetalol HCl (Trandate) 200 mg PO BID@0900,2100 [facility] Ondansetron HCl (Zofran Inj) 4 mg IVP Q6 [facility] PRN Reason: Nausea/Vomiting Last Admin: 01/31/17 14:22 Dose: 4 mg Pyridoxine HCl (Vitamin B6) 100 mg PO DAILY [facility] Last Admin: 01/31/17 09:48 Dose: 100 mg - Labs Labs: 01/31/17 05:35 01/31/17 05:35 - Constitutional Appears: Non-toxic - Head Exam Head Exam: ATRAUMATIC - Eye Exam Eye Exam: Normal appearance - ENT Exam ENT Exam: Normal Exam - Neck Exam Neck Exam: Normal Inspection - Respiratory Exam Additional comments: dec bs at bases - Cardiovascular Exam Cardiovascular Exam: +S1, +S2 - GI/Abdominal Exam GI & Abdominal Exam: Normal Bowel Sounds - Extremities Exam Additional comments: 1 +edema - Neurological Exam Neurological Exam: Alert, Oriented x3 - Psychiatric Exam Psychiatric exam: Normal Affect - Skin Skin Exam: Warm Assessment and Plan - Assessment and Plan (Free Text) Assessment: arf / pauci-immune gn / anemia / ? gn / chf / htn plan: nicki - renal fxn stable. Cytoxan was held today given concern for infection. Its not clear if he actually has PNA - could possibly be manifestation of vasculitis? Discussed w/ Dr. Jesse Obrien to consider pulm consult for BAL and chest CT to image further. Also he should be on prednisone since his initial diagnosis of pauci-immune vasculitis will restart 40 mg po daily - does not sound like he was taking any po pred after his last discharge. will check crp/esr/ repeat anca. Recc also consider procalcitonin. Please check vanc levels.
--- NOTE | 2017-01-31 18:54 | VASCULAR ---
Procedure: Ultrasound and fluoroscopically placed Right upper extremity PICC. Clinical indication: Long-term IV antibiotics. Technique: The relative risks and indications of the procedure were explained to the patient and written informed consent obtained. The patient was placed supine on the angiographic table and the right arm prepped and draped in the usual sterile fashion. A tourniquet was applied to the right axilla. 1% lidocaine was used to anesthetize the skin and soft tissues at the puncture site above the elbow. The right basilic vein was punctured under direct ultrasound guidance with a micropuncture set. A permanent image was stored. A 0.018 guidewire was advanced centrally and used to measure the length to the SVC/RA junction. A 4 Citizen [place] single-lumen PICC, size 40 cm, was advanced to the SVC/RA junction under fluoroscopic guidance. The catheter was flushed and secured. The patient tolerated the procedure well. Postprocedure chest image was obtained to ensure location of the catheter tip at the SVC right atrial junction. Impression: Ultrasound and fluoroscopically placed right upper extremity PICC. A 4 Citizen [place] single-lumen PICC, size 40 cm was advanced to the SVC/RA junction. PICC ready for use.
[2017-02-01 08:12] LABS: BASO % 0.3 % (0.0-2.0); HEMATOCRIT 26.7 % (35.0-51.0); LYMPH # 0.6 K/uL (1.0-4.3); LYMPH % 14.6 % (20.0-40.0); MEAN CELL VOLUME 95.4 fl (80.0-94.0); MEAN CORPUSCULAR HGB CONC 32.4 g/dL (33.0-37.0); MONO # 0.1 K/uL (0.0-0.8); MONO % 2.8 % (0.0-10.0); NEUT # 3.3 K/uL (1.8-7.0); NEUT % 82.3 % (50.0-75.0); RED CELL DISTRIBUTION WIDTH 14.8 % (11.5-14.5)
[2017-02-01] MEDS: Albuterol-Ipratrop 3 mg / 0.5 (3 ml) UD INH SCH ×3 (08:16→20:47)
[2017-02-01 08:33] LABS: ALB/GLOB RATIO 0.8 (1.0-2.1); BILIRUBIN,TOTAL 0.2 mg/dl (0.2-1.3); TOTAL PROTEIN 5.6 G/DL (6.3-8.2)
[2017-02-01] MEDS: Pyridoxine 100 mg Tab PO SCH (08:36)
--- NOTE | 2017-02-01 08:50 | CP.PCM.PN ---
Subjective - Date & Time of Evaluation Date of Evaluation: 02/01/17 Time of Evaluation: 07:35 - Subjective Subjective: Patient seen and examined bedside feeling better compared with yesterday. Using O2 Nc. Breathing comfortable w/o dyspnea. Denies fever, chest pain, palpitation , N/V/D. Reports is urinating less than usual aprox 600 ml from yesterday. Will ask nurse to f/u diuresis closely Objective - Vital Signs/Intake and Output Vital Signs (last 24 hours): Temp Pulse Resp BP Pulse Ox 97.8 F 68 18 147/75 97 02/01/17 08:14 02/01/17 08:36 02/01/17 08:14 02/01/17 08:36 02/01/17 08:14 - Medications Medications: Current Medications Albuterol/Ipratropium (Duoneb 3 Mg/0.5 Mg (3 Ml) Ud) 3 ml INH RTID [facility] Last Admin: 02/01/17 08:16 Dose: 3 ml Amlodipine Besylate (Norvasc) 5 mg PO DAILY [facility] Last Admin: 02/01/17 08:36 Dose: 5 mg Citalopram Hydrobromide (Celexa) 20 mg PO DAILY [facility] Last Admin: 02/01/17 08:36 Dose: 20 mg Clonidine HCl (Catapres) 0.3 mg PO TID [facility] Last Admin: 02/01/17 08:35 Dose: 0.3 mg Furosemide (Lasix) 40 mg IVP DAILY [facility] Last Admin: 02/01/17 08:36 Dose: 40 mg Heparin Sodium (Porcine) (Heparin) 5,000 units SC Q12 [facility] PRN Reason: Protocol Last Admin: 02/01/17 08:37 Dose: 5,000 units Hydralazine HCl (Apresoline) 25 mg PO Q6 [facility] Last Admin: 02/01/17 04:36 Dose: 25 mg Levofloxacin/Dextrose (Levaquin 750mg) 150 mls @ 100 mls/hr IVPB QOTHERDAY@ 2100 [facility] Last Admin: 01/30/17 22:00 Dose: 100 mls/hr Ceftriaxone Sodium 1 gm/ (Sodium Chloride) 100 mls @ 100 mls/hr IVPB 2000 [facility] Last Admin: 01/31/17 21:30 Dose: 100 mls/hr Vancomycin HCl 1.25 gm/ Sodium (Chloride) 250 mls @ 166.667 mls/hr IVPB 2200 [facility] Last Admin: 01/31/17 22:15 Dose: 166.667 mls/hr Isoniazid (Niazid) 300 mg PO DAILY [facility] Last Admin: 02/01/17 08:36 Dose: 300 mg Labetalol HCl (Trandate) 200 mg PO BID@0900,2100 [facility] Ondansetron HCl (Zofran Inj) 4 mg IVP Q6 [facility] PRN Reason: Nausea/Vomiting Last Admin: 01/31/17 14:22 Dose: 4 mg Prednisone (Prednisone Tab) 40 mg PO DAILY [facility] Last Admin: 02/01/17 08:36 Dose: 40 mg Pyridoxine HCl (Vitamin B6) 100 mg PO DAILY [facility] Last Admin: 02/01/17 08:36 Dose: 100 mg - Labs Labs: 02/01/17 06:45 02/01/17 06:45 - Constitutional Appears: Non-toxic, No Acute Distress - Head Exam Head Exam: ATRAUMATIC, NORMOCEPHALIC - ENT Exam ENT Exam: Normal Exam - Respiratory Exam Respiratory Exam: Decreased Breath Sounds, Rales, Rhonchi Additional comments: Left lung base decreased breath sound and Scattered rales Scattered rales right lung base scattered rhonci anterior chest - Cardiovascular Exam Cardiovascular Exam: REGULAR RHYTHM, +S1, +S2 - GI/Abdominal Exam GI & Abdominal Exam: Soft, Normal Bowel Sounds. 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 Cyclophosphamide hold for possible sepsis (HCAP). next will be second dosis. 3) Pneumonia HCAP -Recent hospitalization. recent discharge 01/13 -SOB, chills, subjective fever -Afebrile on hospital. possible secondary to immunodepression. -CXR: left upper lobe pneumonia. mild left pleural effusion. -Vancomycin 1.25g IV daily renal dosis 3day -Levofloxacin 750 mg Q48 h renal dosis 2day -Rocephin 1 g IV daily 3day -ID consult suggested -Pulmonology consult appreciated -vanco trough for tomorrow 4) HTN - secondary to glomerulopathy -c/w hydralazine, amlodipine, clonidine -hold labetolol d/t CHF exacerbation 5) Latent TB -Started on treatment on last admission -Uncertain if had f/u with chest clinic -c/w INH and vitamin 6 6)hyperkalemia -secondary to renal failure -K 6.0 -duoneb 2 doses yest and 1 dose received today -Kayexalate 30 mg PO -Bradder consult appreciated -F/U BMP 16:00 7)Anemia, chronic -secondary to CKD -Hem-Onc consult appreciated: hold cyclophosphamide for now -F/U H/H 8)Depression -Celexa 9)DVT prophylaxis -heparin. Patient with CKD
--- NOTE | 2017-02-01 09:34 | CT ---
PROCEDURE: HISTORY: RUL Pna COMPARISON: 12/24/2016 TECHNIQUE: FINDINGS: There is re-demonstration of large bilateral pleural effusions with compressive atelectasis at the lung bases. There is a new right upper lobe interstitial infiltrate as well as alveolar infiltrate in the right middle lobe and right lower lobe. There is a small pericardial effusion. There is no significant adenopathy. Right PICC line is in place. The proximal tracheobronchial tree is patent. The upper abdomen is unremarkable. No suspicious skeletal lesions are observed. IMPRESSION: No significant change in large bilateral pleural effusions. New right upper lobe, right middle lobe and right lower lobe infiltrates. Small pericardial effusion.
[2017-02-01] MEDS ORDERED: Sod Polystyrene Sulf 15 gm/60 ml Oral Susp PO ONE ×2 (09:45→18:59)
--- NOTE | 2017-02-01 09:58 | CP.PCM.CON ---
History of Present Illness - History of Present Illness History of Present Illness: This 67 year old male, former cigarette smoker with latent Tb, presented to the emergency room with increased dyspnea on exertion. 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 He had been on treatment and received one dose of cyclophosphamide and was scheduled for another dose when he presented with the above. He has been receiving prophylactic INH along with his other medications. He has had a CT chest performed which shows bilateral pleural effusions and passive basal atelectasis, but also reveals a RUL interstitial and alveolar infiltrate as well. He denies any chest pain or productive cough. No hemoptysis. No fever or chills. Past Patient History - Infectious Disease Hx of Infectious Diseases: None - Past Medical History & Family History Past Medical History?: Yes - Past Social History Smoking Status: Former Smoker (recently quit, was heavy smoker before) Chewing Tobacco Use: No Cigar Use: No Alcohol: > 2 Drinks/Day (previous heavy alcohol intake) Drugs: Denies Home Situation {Lives}: Homeless - CARDIAC Hx Hypertension: Yes - PULMONARY Hx Chronic Obstructive Pulmonary Disease (COPD): Yes Hx Pneumonia: Yes Other/Comment: latent tuberculosis - NEUROLOGICAL Hx Neurological Disorder: No - HEENT Hx HEENT Problems: No - RENAL Hx Chronic Kidney Disease: Yes Other/Comment: glomerulonephritis - ENDOCRINE/METABOLIC Hx Endocrine Disorders: No - HEMATOLOGICAL/ONCOLOGICAL Hx Anemia: Yes - INTEGUMENTARY Hx Dermatological Problems: No - MUSCULOSKELETAL/RHEUMATOLOGICAL Other/Comment: paraspinal abscess - GASTROINTESTINAL Hx Gastrointestinal Disorders: Yes Hx Hemorrhoids: Yes - GENITOURINARY/GYNECOLOGICAL Hx Genitourinary Disorders: No - PSYCHIATRIC Hx Anxiety: Yes - ANESTHESIA Hx Anesthesia: Yes Hx Anesthesia Reactions: No Meds Allergies/Adverse Reactions: Allergies Allergy/AdvReac Type Severity Reaction Status Date / Time sulfamethoxazole Allergy RASH Verified 04/09/16 11:57 [From ] trimethoprim [From ] Allergy RASH Verified 04/09/16 11:57 - Medications Medications: Current Medications Albuterol/Ipratropium (Duoneb 3 Mg/0.5 Mg (3 Ml) Ud) 3 ml INH RTID [facility] Last Admin: 02/01/17 08:16 Dose: 3 ml Amlodipine Besylate (Norvasc) 5 mg PO DAILY [facility] Last Admin: 02/01/17 08:36 Dose: 5 mg Citalopram Hydrobromide (Celexa) 20 mg PO DAILY [facility] Last Admin: 02/01/17 08:36 Dose: 20 mg Clonidine HCl (Catapres) 0.3 mg PO TID [facility] Last Admin: 02/01/17 08:35 Dose: 0.3 mg Furosemide (Lasix) 40 mg IVP DAILY [facility] Last Admin: 02/01/17 08:36 Dose: 40 mg Heparin Sodium (Porcine) (Heparin) 5,000 units SC Q12 [facility] PRN Reason: Protocol Last Admin: 02/01/17 08:37 Dose: 5,000 units Hydralazine HCl (Apresoline) 25 mg PO Q6 [facility] Last Admin: 02/01/17 04:36 Dose: 25 mg Levofloxacin/Dextrose (Levaquin 750mg) 150 mls @ 100 mls/hr IVPB QOTHERDAY@ 2100 [facility] Last Admin: 01/30/17 22:00 Dose: 100 mls/hr Ceftriaxone Sodium 1 gm/ (Sodium Chloride) 100 mls @ 100 mls/hr IVPB 2000 [facility] Last Admin: 01/31/17 21:30 Dose: 100 mls/hr Vancomycin HCl 1.25 gm/ Sodium (Chloride) 250 mls @ 166.667 mls/hr IVPB 2200 [facility] Last Admin: 01/31/17 22:15 Dose: 166.667 mls/hr Isoniazid (Niazid) 300 mg PO DAILY [facility] Last Admin: 02/01/17 08:36 Dose: 300 mg Labetalol HCl (Trandate) 200 mg PO BID@0900,2100 [facility] Ondansetron HCl (Zofran Inj) 4 mg IVP Q6 PRN PRN Reason: Nausea/Vomiting Last Admin: 01/31/17 14:22 Dose: 4 mg Prednisone (Prednisone Tab) 40 mg PO DAILY [facility] Last Admin: 02/01/17 08:36 Dose: 40 mg Pyridoxine HCl (Vitamin B6) 100 mg PO DAILY [facility] Last Admin: 02/01/17 08:36 Dose: 100 mg Physical Exam - Additional Findings Additional findings: Well nourished, well developed, in no distress, cooperative with the exam. No jaundice, + dependant edema of both legs to the knees, no cyanosis, no calf tenderness. Pharynx is pink and moist, no exudate. Nares are patent bilaterally, no bleeding. Neck is supple and trachea midline, no JVD or carotid bruit. + myoid edema, no palpable lymphadenopathy. Dullness on percussion of lung bases, no subcutaneous emphysema, equal expansion. Breath sounds are diminished bilaterally w/o audible wheezing. No bronchial breathing, no egophony, medium rales in the RUL laterally and posteriorly. Sonorous rhonchi are present in dependant areas of both lungs. Heart sounds are distant, rhythm is regular. Results - Vital Signs Recent Vital Signs: Last Vital Signs Temp 97.8 F 02/01/17 08:14 Pulse 68 02/01/17 09:00 Resp 18 02/01/17 08:14 BP 147/75 02/01/17 08:36 Pulse Ox 97 02/01/17 08:14 - Labs Result Diagrams: 02/01/17 06:45 02/03/17 05:20 Labs: Laboratory Results - last 24 hr 01/31/17 01/31/17 02/01/17 16:51 21:30 06:45 WBC 4.0 L RBC 2.80 L Hgb 8.7 L Hct 26.7 L MCV 95.4 H MCH 31.0 MCHC 32.4 L RDW 14.8 H Plt Count 244 MPV 8.0 Neut % (Auto) 82.3 H Lymph % (Auto) 14.6 L [place] % (Auto) 2.8 Eos % (Auto) 0.0 Baso % (Auto) 0.3 Neut # 3.3 Lymph # 0.6 L [place] # 0.1 Eos # 0.0 Baso # 0.0 Sodium 142 Potassium 6.0 H Chloride 111 H Carbon Dioxide 18 L Anion Gap 19 BUN 39 H Creatinine 3.2 H Est GFR ( Amer) 24 Est GFR (Non-Af Amer) 20 Random Glucose 145 H Calcium 8.0 L Total Bilirubin 0.2 AST 21 ALT 22 Alkaline Phosphatase 81 C-React Prot High Sens > 15.00 H Total Protein 5.6 L Albumin 2.5 L Globulin 3.1 Albumin/Globulin Ratio 0.8 L Ur Random Creatinine 41.9 Assessment & Plan (1) ANCA-associated vasculitis Status: Chronic Priority: High (2) Pneumonia Status: Acute Priority: High (3) Pleural effusion Status: Acute Priority: High - Assessment and Plan (Free Text) Plan: Agree with antibiotic regimen for RUL pneumonia in an immune compromised host. Cyclophosphamide currently being held until pneumonia improves. - Date & Time Date: 02/01/17 Time: 09:57
--- NOTE | 2017-02-01 13:43 | CP.PCM.CON ---
History of Present Illness - History of Present Illness History of Present Illness: 67yo homeless M with PMHx HTN, Alcohol abuse, seizure and COPD, sCHF (12/2016 ECHO LVEF 45-50%) c/o SOB and GUIDRY admitted for CHF excerbation and acute on chronic CKD. Duration x3-4 weeks which have remained the same, no changes recently. a/w GUIDRY. Denies fever, chills, chest pain, palpitation, headache, dizziness, abdominal pain. Compliant with medications. Went to chest clinic and [place], no new meds recieved. Didn't follow up with [facility] or Nephrology Dr. Sandoval. Denies hemoptysis, weight loss. 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 Due for Cyclophosphamide . Evaluated by Nephro, ID, Pulm, H/O. PMHx: COPD, HTN, alcohol abuse, Seizure, Anemia, Hemorrhoids, Depression, arthritis, Epidural Abscess, CHF PSHx: Denies Social hx: ex smoker. h/o Alcohol abuse. denies drug use. Homeless FHx: denies Allergies: Sulfamethoxazole/ trimethoprim Review of Systems - Constitutional Constitutional: As Per HPI - EENT Eyes: absent: As Per HPI, Blind Spots, Blurred Vision, Change in Vision, Decreased Night Vision, Diplopia, Discharge, Dry Eye, Exophthalmos, Floaters, Irritation, Itchy Eyes, Loss of Peripheral Vision, Pain, Photophobia, Requires Corrective Lenses, Sees Flashes, Spots in Vision, Tunnel Vision, Other Visual Disturbances, Loss of Vision, Other Ears: absent: As Per HPI, Decreased Hearing, Ear Discharge, Ear Pain, Tinnitus, Abnormal Hearing, Disequilibrium, Dizziness, Other Nose/Mouth/Throat: absent: As Per HPI, Epistaxis, Nasal Congestion, Nasal Discharge, Nasal Obstruction, Nasal Trauma, Nose Pain, Post Nasal Drip, Sinus Pain, Sinus Pressure, Bleeding Gums, Change in Voice, Dental Pain, Dry Mouth, Dysphagia, Halitosis, Hoarsness, Lip Swelling, Mouth Lesions, Mouth Pain, Odynophagia, Sore Throat, Throat Swelling, Tongue Swelling, Facial Pain, Neck Pain, Neck Mass, Other - Cardiovascular Cardiovascular: absent: As Per HPI, Acrocyanosis, Chest Pain, Chest Pain at Rest , Chest Pain with Activity, Claudication, Diaphoresis, Dyspnea, Dyspnea on Exertion, Edema, Irregular Heart Rhythm, Pain Radiating to Arm/Neck/Jaw, Leg Edema, Leg Ulcers, Lightheadedness, Orthopnea, Palpitations, Paroxysmal Nocturnal Dyspnea, Pedal Edema, Radiating Pain, Rapid Heart Rate, Slow Heart Rate, Syncope, Other - Respiratory Respiratory: As Per HPI, Cough, Dyspnea. absent: Hemoptysis - Gastrointestinal Gastrointestinal: absent: As Per HPI, Abdominal Pain, Belching, Bloating, Change in Bowel Habits, Change in Stool Character, [place] Emesis, Constipation, Cramping, Diarrhea, Dyspepsia, Dysphagia, Early Satiety, Excessive Flatus, Fecal Incontinence, Heartburn, Hematemesis, Hematochezia, Loose Stools, Melena, Nausea, Odynophagia, Temesmus, Vomiting, Other - Genitourinary Genitourinary: absent: As Per HPI, Change in Urinary Stream, Difficulty Urinating, Dysuria, Flank Pain, Hematuria, Pyuria, Nocturia, Urinary Incontinence, Urinary Frequency, Urinary Hesitance, Urinary Urgency, Voiding Freq/Small Amts, Freq UTI, Hx Renal/Bladder Calculi, Hx /Renal Surgery, Bladder Distension, Other - Musculoskeletal Musculoskeletal: As Per HPI - Integumentary Integumentary: As Per HPI - Neurological Neurological: absent: As Per HPI, Abnormal Gait, Abnormal Hearing, Abnormal Movements, Abnormal Speech, Behavioral Changes, Burning Sensations, Confusion, Convulsions, Disequilibrium, Dizziness, Numbness, Focal Weakness, Frequent Falls , Headaches, Lack of Coordination, Loss of Vision, Memory Loss, Paresthesias, Radicular Pain, Restless Legs, Sensory Deficit, Syncope, Tingling, Tremor, Vertigo, Weakness, Other Visual Disturbances, Other - Psychiatric Psychiatric: absent: As Per HPI, Abnormal Sleep Pattern, Anhedonia, Anxiety, Auditory Hallucinations, Behavioral Changes, Change in Appetite, Change in Libido, Confusion, Depression, Difficulty Concentrating, Hallucinations, Homicidal Ideation, Hopelessness, Irritability, Memory Loss, Mood Swings, Panic Attacks, Paranoia, Suicidal Ideation, Visual Hallucinations, Tactile Hallucinations, Other - Endocrine Endocrine: absent: As Per HPI, Change in Body Appearance, Change in Libido, Cold Intolorance, Deepening of Voice, Excessive Sweating, Fatigue, Flushing, Heat Intolorance, Increase in Ring/Shoe/Hat Size, Palpitations, Polydipsia, Polyphagia, Polyuria, Other - Hematologic/Lymphatic Hematologic: absent: As Per HPI, Easy Bleeding, Easy Bruising, Lymphadenopathy, Other Past Patient History - Infectious Disease Hx of Infectious Diseases: None - Past Medical History & Family History Past Medical History?: Yes - Past Social History Alcohol: > 2 Drinks/Day Drugs: Denies - CARDIAC Hx Cardiac Disorders: Yes - PULMONARY Hx Respiratory Disorders: Yes - NEUROLOGICAL Hx Neurological Disorder: No - HEENT Hx HEENT Problems: No - RENAL Hx Chronic Kidney Disease: Yes - ENDOCRINE/METABOLIC Hx Endocrine Disorders: No - HEMATOLOGICAL/ONCOLOGICAL Hx Blood Disorders: No - INTEGUMENTARY Hx Dermatological Problems: No - MUSCULOSKELETAL/RHEUMATOLOGICAL Hx Musculoskeletal Disorders: Yes - GASTROINTESTINAL Hx Gastrointestinal Disorders: Yes Hx Hemorrhoids: Yes - GENITOURINARY/GYNECOLOGICAL Hx Genitourinary Disorders: No - PSYCHIATRIC Hx Psychophysiologic Disorder: Yes - SURGICAL HISTORY Hx Coronary Stent: No - ANESTHESIA Hx Anesthesia: Yes Hx Anesthesia Reactions: No Meds Allergies/Adverse Reactions: Allergies Allergy/AdvReac Type Severity Reaction Status Date / Time sulfamethoxazole Allergy RASH Verified 04/09/16 11:57 [From ] trimethoprim [From ] Allergy RASH Verified 04/09/16 11:57 - Medications Medications: Current Medications Albuterol/Ipratropium (Duoneb 3 Mg/0.5 Mg (3 Ml) Ud) 3 ml INH RTID [facility] Last Admin: 02/01/17 08:16 Dose: 3 ml Amlodipine Besylate (Norvasc) 5 mg PO DAILY [facility] Last Admin: 02/01/17 08:36 Dose: 5 mg Citalopram Hydrobromide (Celexa) 20 mg PO DAILY [facility] Last Admin: 02/01/17 08:36 Dose: 20 mg Clonidine HCl (Catapres) 0.3 mg PO TID [facility] Last Admin: 02/01/17 12:30 Dose: 0.3 mg Furosemide (Lasix) 40 mg IVP DAILY [facility] Last Admin: 02/01/17 08:36 Dose: 40 mg Heparin Sodium (Porcine) (Heparin) 5,000 units SC Q12 [facility] PRN Reason: Protocol Last Admin: 02/01/17 08:37 Dose: 5,000 units Hydralazine HCl (Apresoline) 25 mg PO Q6 [facility] Last Admin: 02/01/17 10:00 Dose: 25 mg Levofloxacin/Dextrose (Levaquin 750mg) 150 mls @ 100 mls/hr IVPB QOTHERDAY@ 2100 [facility] Last Admin: 01/30/17 22:00 Dose: 100 mls/hr Ceftriaxone Sodium 1 gm/ (Sodium Chloride) 100 mls @ 100 mls/hr IVPB 2000 [facility] Last Admin: 01/31/17 21:30 Dose: 100 mls/hr Vancomycin HCl 1.25 gm/ Sodium (Chloride) 250 mls @ 166.667 mls/hr IVPB 2200 [facility] Last Admin: 01/31/17 22:15 Dose: 166.667 mls/hr Isoniazid (Niazid) 300 mg PO DAILY [facility] Last Admin: 02/01/17 08:36 Dose: 300 mg Labetalol HCl (Trandate) 200 mg PO BID@0900,2100 [facility] Ondansetron HCl (Zofran Inj) 4 mg IVP Q6 PRN PRN Reason: Nausea/Vomiting Last Admin: 01/31/17 14:22 Dose: 4 mg Prednisone (Prednisone Tab) 40 mg PO DAILY [facility] Last Admin: 02/01/17 08:36 Dose: 40 mg Pyridoxine HCl (Vitamin B6) 100 mg PO DAILY [facility] Last Admin: 02/01/17 08:36 Dose: 100 mg Physical Exam - Constitutional Appears: Non-toxic, Chronically Ill - Head Exam Head Exam: NORMOCEPHALIC - Eye Exam Eye Exam: PERRL. absent: Scleral icterus - ENT Exam ENT Exam: Mucous Membranes Dry, Normal External Ear Exam - Neck Exam Neck exam: Negative for: Lymphadenopathy, Thyromegaly - Respiratory Exam Respiratory Exam: Decreased Breath Sounds, Rhonchi - Cardiovascular Exam Cardiovascular Exam: REGULAR RHYTHM, +S1, +S2 - GI/Abdominal Exam GI & Abdominal Exam: Diminished Bowel Sounds, Soft. absent: Tenderness - Rectal Exam Rectal Exam: Deferred - Exam Exam: NORMAL INSPECTION - Extremities Exam Extremities exam: Positive for: pedal edema, pedal pulses present. Negative for : calf tenderness, tenderness - Back Exam Back exam: absent: CVA tenderness (L), CVA tenderness (R) - Neurological Exam Neurological exam: Alert, CN II-XII Intact, Oriented x3, Reflexes Normal - Psychiatric Exam Psychiatric exam: Normal Mood - Skin Skin Exam: Dry Results - Vital Signs Recent Vital Signs: Last Vital Signs Temp 98.5 F 02/01/17 12:01 Pulse 77 02/01/17 12:30 Resp 18 02/01/17 12:01 BP 148/75 02/01/17 12:30 Pulse Ox 97 02/01/17 12:01 - Labs Result Diagrams: 02/01/17 06:45 02/01/17 06:45 Labs: Laboratory Results - last 24 hr 01/31/17 01/31/17 02/01/17 16:51 21:30 06:45 WBC 4.0 L RBC 2.80 L Hgb 8.7 L Hct 26.7 L MCV 95.4 H MCH 31.0 MCHC 32.4 L RDW 14.8 H Plt Count 244 MPV 8.0 Neut % (Auto) 82.3 H Lymph % (Auto) 14.6 L [place] % (Auto) 2.8 Eos % (Auto) 0.0 Baso % (Auto) 0.3 Neut # 3.3 Lymph # 0.6 L [place] # 0.1 Eos # 0.0 Baso # 0.0 Sodium 142 Potassium 6.0 H Chloride 111 H Carbon Dioxide 18 L Anion Gap 19 BUN 39 H Creatinine 3.2 H Est GFR ( Amer) 24 Est GFR (Non-Af Amer) 20 Random Glucose 145 H Calcium 8.0 L Total Bilirubin 0.2 AST 21 ALT 22 Alkaline Phosphatase 81 C-React Prot High Sens > 15.00 H Total Protein 5.6 L Albumin 2.5 L Globulin 3.1 Albumin/Globulin Ratio 0.8 L Ur Random Creatinine 41.9 Assessment & Plan (1) ANCA-associated vasculitis Status: Acute (2) Acute on chronic renal failure Status: Acute (3) Anasarca Status: Acute
--- NOTE | 2017-02-01 16:20 | CP.PCM.PN ---
Subjective - Date & Time of Evaluation Date of Evaluation: 02/01/17 Time of Evaluation: 04:20 - Subjective Subjective: Sitting up in bed. Feels better with oxygen Objective - Vital Signs/Intake and Output Vital Signs (last 24 hours): Temp Pulse Resp BP Pulse Ox 98.5 F 77 18 148/75 97 02/01/17 12:01 02/01/17 12:30 02/01/17 12:01 02/01/17 12:30 02/01/17 12:01 - Medications Medications: Current Medications Albuterol/Ipratropium (Duoneb 3 Mg/0.5 Mg (3 Ml) Ud) 3 ml INH RTID [facility] Last Admin: 02/01/17 08:16 Dose: 3 ml Amlodipine Besylate (Norvasc) 5 mg PO DAILY [facility] Last Admin: 02/01/17 08:36 Dose: 5 mg Citalopram Hydrobromide (Celexa) 20 mg PO DAILY [facility] Last Admin: 02/01/17 08:36 Dose: 20 mg Clonidine HCl (Catapres) 0.3 mg PO TID [facility] Last Admin: 02/01/17 12:30 Dose: 0.3 mg Furosemide (Lasix) 40 mg IVP DAILY [facility] Last Admin: 02/01/17 08:36 Dose: 40 mg Heparin Sodium (Porcine) (Heparin) 5,000 units SC Q12 [facility] PRN Reason: Protocol Last Admin: 02/01/17 08:37 Dose: 5,000 units Hydralazine HCl (Apresoline) 25 mg PO Q6 [facility] Last Admin: 02/01/17 10:00 Dose: 25 mg Levofloxacin/Dextrose (Levaquin 750mg) 150 mls @ 100 mls/hr IVPB QOTHERDAY@ 2100 [facility] Last Admin: 01/30/17 22:00 Dose: 100 mls/hr Ceftriaxone Sodium 1 gm/ (Sodium Chloride) 100 mls @ 100 mls/hr IVPB 2000 [facility] Last Admin: 01/31/17 21:30 Dose: 100 mls/hr Isoniazid (Niazid) 300 mg PO DAILY [facility] Last Admin: 02/01/17 08:36 Dose: 300 mg Labetalol HCl (Trandate) 200 mg PO BID@0900,2100 [facility] Ondansetron HCl (Zofran Inj) 4 mg IVP Q6 PRN PRN Reason: Nausea/Vomiting Last Admin: 01/31/17 14:22 Dose: 4 mg Prednisone (Prednisone Tab) 40 mg PO DAILY [facility] Last Admin: 02/01/17 08:36 Dose: 40 mg Pyridoxine HCl (Vitamin B6) 100 mg PO DAILY [facility] Last Admin: 02/01/17 08:36 Dose: 100 mg - Labs Labs: 02/01/17 06:45 02/01/17 06:45 - Respiratory Exam Additional comments: B/L expiratory wheezes & rhonchi - Cardiovascular Exam Cardiovascular Exam: REGULAR RHYTHM Additional comments: sinus rythm - Extremities Exam Additional comments: 2-3+ b/l pedal edema Assessment and Plan - Assessment and Plan (Free Text) Assessment: 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 Creatine was stable @ 2.4 Now has developed hyperkalemia Hx/o CHF ? excacerbation Pneumonia with Rt lung infiltrates Plan: Suggest to increase lasix to bid for 2-3 days Low K+ diet Will hold Cytoxan because currently Pt is treated for occult TB
[2017-02-01 17:28] LABS: CALCIUM 5.6 mg/dL (8.4-10.2)
[2017-02-01 17:32] LABS: POTASSIUM 4.2 MMOL/L (3.6-5.0)
[2017-02-01 18:32] LABS: ALB/GLOB RATIO 0.8 (1.0-2.1); BILIRUBIN,TOTAL 0.4 mg/dl (0.2-1.3); CALCIUM 8.1 mg/dL (8.4-10.2); TOTAL PROTEIN 6.2 G/DL (6.3-8.2)
[2017-02-01 18:35] LABS: POTASSIUM 5.8 MMOL/L (3.6-5.0)
[2017-02-02] MEDS: Albuterol-Ipratrop 3 mg / 0.5 (3 ml) UD INH SCH ×3 (07:34→19:35)
[2017-02-02] MEDS: Pyridoxine 100 mg Tab PO SCH (08:30)
[2017-02-02 08:58] LABS: CALCIUM 7.9 mg/dL (8.4-10.2); POTASSIUM 4.9 MMOL/L (3.6-5.0)
[2017-02-02 09:10] LABS: CREATININE, RANDOM URINE 55 mg/dL (20-370)
--- NOTE | 2017-02-02 10:23 | CP.PCM.PN ---
Subjective - Date & Time of Evaluation Date of Evaluation: 02/02/17 Time of Evaluation: 07:40 - Subjective Subjective: Patient seen and examined bedside. Looks comfortable today, breathing w/o difficulty using O2 NC. Reports mild SOB on exertion and 4 nonbloddy diarrhea yesterday (kayexalate related). Denies fever, chest pain, N/V, abd pain. urinating less frequent. Patient agree to have family meeting. We will contact next of kin German King ( brother) [phone]. Next of kin contacted. Is available for family meeting on next Monday afternoon. Objective - Vital Signs/Intake and Output Vital Signs (last 24 hours): Temp Pulse Resp BP Pulse Ox 98.1 F 85 18 171/91 H 95 02/02/17 08:04 02/02/17 08:31 02/02/17 08:04 02/02/17 08:32 02/02/17 08:04 - Medications Medications: Current Medications Albuterol/Ipratropium (Duoneb 3 Mg/0.5 Mg (3 Ml) Ud) 3 ml INH RTID [facility] Last Admin: 02/02/17 07:34 Dose: 3 ml Amlodipine Besylate (Norvasc) 5 mg PO DAILY [facility] Last Admin: 02/02/17 08:31 Dose: 5 mg Citalopram Hydrobromide (Celexa) 20 mg PO DAILY [facility] Last Admin: 02/02/17 08:31 Dose: 20 mg Clonidine HCl (Catapres) 0.3 mg PO TID [facility] Last Admin: 02/02/17 08:30 Dose: 0.3 mg Furosemide (Lasix) 40 mg IVP BID [facility] Last Admin: 02/02/17 08:32 Dose: 40 mg Heparin Sodium (Porcine) (Heparin) 5,000 units SC Q12 [facility] PRN Reason: Protocol Last Admin: 02/02/17 08:32 Dose: 5,000 units Hydralazine HCl (Apresoline) 25 mg PO Q6 [facility] Last Admin: 02/02/17 04:34 Dose: 25 mg Levofloxacin/Dextrose (Levaquin 750mg) 150 mls @ 100 mls/hr IVPB QOTHERDAY@ 2100 [facility] Last Admin: 02/01/17 21:30 Dose: 100 mls/hr Ceftriaxone Sodium 1 gm/ (Sodium Chloride) 100 mls @ 100 mls/hr IVPB 2000 [facility] Last Admin: 02/01/17 19:52 Dose: 100 mls/hr Isoniazid (Niazid) 300 mg PO DAILY [facility] Last Admin: 02/02/17 08:30 Dose: 300 mg Labetalol HCl (Trandate) 200 mg PO BID@0900,2100 [facility] Ondansetron HCl (Zofran Inj) 4 mg IVP Q6 PRN PRN Reason: Nausea/Vomiting Last Admin: 01/31/17 14:22 Dose: 4 mg Prednisone (Prednisone Tab) 40 mg PO DAILY [facility] Last Admin: 02/02/17 08:30 Dose: 40 mg Pyridoxine HCl (Vitamin B6) 100 mg PO DAILY [facility] Last Admin: 02/02/17 08:30 Dose: 100 mg - Labs Labs: 02/01/17 06:45 02/02/17 08:00 - Constitutional Appears: Non-toxic, No Acute Distress - Head Exam Head Exam: ATRAUMATIC, NORMOCEPHALIC - Eye Exam Eye Exam: Normal appearance - Respiratory Exam Respiratory Exam: Decreased Breath Sounds, Rales, Wheezes Additional comments: scattered wheezing anterior chest wall. decreased left lung base breath sounds. rales B/L lung bases. - Cardiovascular Exam Cardiovascular Exam: REGULAR RHYTHM, +S1, +S2 - GI/Abdominal Exam GI & Abdominal Exam: Soft, Normal Bowel Sounds. absent: Tenderness - Extremities Exam Extremities Exam: Pedal Edema. 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 1) acute Systolic CHF exacerbation -ECHO LVEF 45-50% 12/2016 -pBNP 7860 -lasix 40 mg IV BID -daily weight -I/O - Admit to tele 2) acute on chronic CKD IV - h/o +ANCA glomerulonephropathy -monitor BUN/Cr 44/3.0 -French Comber consult appreciated Dr Sandoval: Suggest c/w Lasix,prednisione, low K diet. Cyclophosphamide hold for possible infection (HCAP). next doses would be the second doses for a cycle of 6 doses monthly 3) Pneumonia HCAP -Recent hospitalization. recent discharge 01/13 -SOB, chills, subjective fever -Afebrile on hospital. possible secondary to immunodepression. -CXR: left upper lobe pneumonia. mild left pleural effusion. -Levofloxacin 750 mg Q48 h renal dosis 2day -Rocephin 1 g IV daily 3day -ID consult appreciated -Pulmonology consult appreciated 4) HTN - secondary to glomerulopathy -c/w hydralazine, amlodipine, clonidine -hold labetolol d/t CHF exacerbation 5) Latent TB -Started on treatment on last admission -Uncertain if had f/u with chest clinic -c/w INH and vitamin 6 6)hyperkalemia -resolved -secondary to renal failure -K 4.9 -duoneb PRN -French Comber consult appreciated -F/U BMP 7)Anemia, chronic -secondary to CKD hgb: 8.7 -Hem-Onc consult appreciated: hold cyclophosphamide for now -F/U H/H 8)Depression -Celexa 9)DVT prophylaxis -heparin. Patient with CKD
--- NOTE | 2017-02-02 13:33 | CP.PCM.PN ---
Subjective - Date & Time of Evaluation Date of Evaluation: 02/02/17 Time of Evaluation: 01:25 - Subjective Subjective: Less SOB today Sitting up in bed & eating Objective - Vital Signs/Intake and Output Vital Signs (last 24 hours): Temp Pulse Resp BP Pulse Ox 98.1 F 81 18 160/80 H 97 02/02/17 12:40 02/02/17 12:40 02/02/17 12:40 02/02/17 12:40 02/02/17 12:40 - Medications Medications: Current Medications Albuterol/Ipratropium (Duoneb 3 Mg/0.5 Mg (3 Ml) Ud) 3 ml INH RTID [facility] Last Admin: 02/02/17 07:34 Dose: 3 ml Amlodipine Besylate (Norvasc) 5 mg PO DAILY [facility] Last Admin: 02/02/17 08:31 Dose: 5 mg Citalopram Hydrobromide (Celexa) 20 mg PO DAILY [facility] Last Admin: 02/02/17 08:31 Dose: 20 mg Clonidine HCl (Catapres) 0.3 mg PO TID [facility] Last Admin: 02/02/17 08:30 Dose: 0.3 mg Furosemide (Lasix) 40 mg IVP BID [facility] Last Admin: 02/02/17 08:32 Dose: 40 mg Heparin Sodium (Porcine) (Heparin) 5,000 units SC Q12 [facility] PRN Reason: Protocol Last Admin: 02/02/17 08:32 Dose: 5,000 units Hydralazine HCl (Apresoline) 25 mg PO Q6 [facility] Last Admin: 02/02/17 04:34 Dose: 25 mg Levofloxacin/Dextrose (Levaquin 750mg) 150 mls @ 100 mls/hr IVPB QOTHERDAY@ 2100 [facility] Last Admin: 02/01/17 21:30 Dose: 100 mls/hr Ceftriaxone Sodium 1 gm/ (Sodium Chloride) 100 mls @ 100 mls/hr IVPB 2000 [facility] Last Admin: 02/01/17 19:52 Dose: 100 mls/hr Isoniazid (Niazid) 300 mg PO DAILY [facility] Last Admin: 02/02/17 08:30 Dose: 300 mg Labetalol HCl (Trandate) 200 mg PO BID@0900,2100 [facility] Ondansetron HCl (Zofran Inj) 4 mg IVP Q6 PRN PRN Reason: Nausea/Vomiting Last Admin: 01/31/17 14:22 Dose: 4 mg Prednisone (Prednisone Tab) 40 mg PO DAILY [facility] Last Admin: 02/02/17 08:30 Dose: 40 mg Pyridoxine HCl (Vitamin B6) 100 mg PO DAILY [facility] Last Admin: 02/02/17 08:30 Dose: 100 mg - Labs Labs: 02/01/17 06:45 02/02/17 08:00 - Respiratory Exam Additional comments: Less wheezing today - Cardiovascular Exam Cardiovascular Exam: REGULAR RHYTHM - Extremities Exam Additional comments: 3-4 + bipedaledema while sitting up RErythema & warmth of both lower extrem Assessment and Plan - Assessment and Plan (Free Text) Assessment: Pauci immune crescentic GN. Cytoxan is on hold because of possible latent TB There has been an increase in serum creat & has developed hyperkalemia Pedal edema sec to nephrotic syndrome & CHF Cellulitis of LEs HTN Rt lung pneumonia with RUL infiltrate On Levaquin & INH Plan: Continue with Lasix BID Low K+ diet
[2017-02-02] MEDS ORDERED: Sodium Chloride 3% for Inhalation 4 ML VIAL.NEB IH PRN (17:17)
--- NOTE | 2017-02-02 23:44 | CP.PCM.PN ---
Subjective - Date & Time of Evaluation Date of Evaluation: 02/02/17 Time of Evaluation: 11:00 - Subjective Subjective: Feeling better Objective - Vital Signs/Intake and Output Vital Signs (last 24 hours): Temp Pulse Resp BP Pulse Ox 97.6 F 80 18 155/74 H 95 02/02/17 17:00 02/02/17 21:06 02/02/17 17:00 02/02/17 21:06 02/02/17 17:00 - Medications Medications: Current Medications Albuterol/Ipratropium (Duoneb 3 Mg/0.5 Mg (3 Ml) Ud) 3 ml INH RTID [facility] Last Admin: 02/02/17 19:35 Dose: 3 ml Amlodipine Besylate (Norvasc) 5 mg PO DAILY [facility] Last Admin: 02/02/17 08:31 Dose: 5 mg Citalopram Hydrobromide (Celexa) 20 mg PO DAILY [facility] Last Admin: 02/02/17 08:31 Dose: 20 mg Clonidine HCl (Catapres) 0.3 mg PO TID [facility] Last Admin: 02/02/17 16:16 Dose: 0.3 mg Furosemide (Lasix) 40 mg IVP BID [facility] Last Admin: 02/02/17 16:43 Dose: 40 mg Heparin Sodium (Porcine) (Heparin) 5,000 units SC Q12 [facility] PRN Reason: Protocol Last Admin: 02/02/17 21:07 Dose: 5,000 units Hydralazine HCl (Apresoline) 25 mg PO Q6 [facility] Last Admin: 02/02/17 21:06 Dose: 25 mg Levofloxacin/Dextrose (Levaquin 750mg) 150 mls @ 100 mls/hr IVPB QOTHERDAY@ 2100 [facility] Last Admin: 02/01/17 21:30 Dose: 100 mls/hr Ceftriaxone Sodium 1 gm/ (Sodium Chloride) 100 mls @ 100 mls/hr IVPB 2000 [facility] Last Admin: 02/02/17 21:00 Dose: 100 mls/hr Isoniazid (Niazid) 300 mg PO DAILY [facility] Last Admin: 02/02/17 08:30 Dose: 300 mg Labetalol HCl (Trandate) 200 mg PO BID@0900,2100 [facility] Ondansetron HCl (Zofran Inj) 4 mg IVP Q6 PRN PRN Reason: Nausea/Vomiting Last Admin: 01/31/17 14:22 Dose: 4 mg Prednisone (Prednisone Tab) 40 mg PO DAILY [facility] Last Admin: 02/02/17 08:30 Dose: 40 mg Pyridoxine HCl (Vitamin B6) 100 mg PO DAILY [facility] Last Admin: 02/02/17 08:30 Dose: 100 mg - Labs Labs: 02/01/17 06:45 02/02/17 08:00 - Head Exam Head Exam: ATRAUMATIC - Eye Exam Eye Exam: Normal appearance - ENT Exam ENT Exam: Mucous Membranes Dry - Respiratory Exam Respiratory Exam: NORMAL BREATHING PATTERN - Cardiovascular Exam Cardiovascular Exam: +S1, +S2 - GI/Abdominal Exam GI & Abdominal Exam: Normal Bowel Sounds - Extremities Exam Extremities Exam: Pedal Edema Assessment and Plan (1) ANCA-associated vasculitis Assessment & Plan: Agree with holding immunosuppression until active infection cleared up. Status: Acute (2) Anemia Assessment & Plan: chronic disease, renal disease Status: Acute
[2017-02-03] MEDS ORDERED: Albuterol-Ipratrop 3 mg / 0.5 (3 ml) UD INH STA (03:02)
[2017-02-03 07:27] LABS: CALCIUM 7.5 mg/dL (8.4-10.2); MAGNESIUM 1.4 MG/DL (1.6-2.3); PHOSPHOROUS 6.3 mg/dl (2.5-4.5); POTASSIUM 4.6 MMOL/L (3.6-5.0)
[2017-02-03] MEDS: Albuterol-Ipratrop 3 mg / 0.5 (3 ml) UD INH SCH ×3 (07:47→19:22)
--- NOTE | 2017-02-03 08:09 | CP.PCM.PN ---
<PrabhakarRuddy gupta - Last Filed: 02/03/17 15:45> Subjective - Date & Time of Evaluation Date of Evaluation: 02/03/17 Time of Evaluation: 07:30 - Subjective Subjective: Patient seen and examined bedside feeling better. Using O2 NC. Reports sob last night improved with duoneb. Reports productive cough with white nonbloddy expectoration mainly in the morning. Denies chest pain, N/V/D, dysuria. Objective - Vital Signs/Intake and Output Vital Signs (last 24 hours): Temp Pulse Resp BP Pulse Ox 97.9 F 76 20 151/78 H 96 02/03/17 04:44 02/03/17 04:44 02/03/17 04:44 02/03/17 04:44 02/03/17 04:44 Intake and Output: 02/03/17 02/03/17 06:59 18:59 Intake Total 340 Output Total 400 Balance -60 - Medications Medications: Current Medications Albuterol/Ipratropium (Duoneb 3 Mg/0.5 Mg (3 Ml) Ud) 3 ml INH RTID [facility] Last Admin: 02/03/17 07:47 Dose: 3 ml Amlodipine Besylate (Norvasc) 5 mg PO DAILY [facility] Last Admin: 02/02/17 08:31 Dose: 5 mg Citalopram Hydrobromide (Celexa) 20 mg PO DAILY [facility] Last Admin: 02/02/17 08:31 Dose: 20 mg Clonidine HCl (Catapres) 0.3 mg PO TID [facility] Last Admin: 02/02/17 16:16 Dose: 0.3 mg Furosemide (Lasix) 40 mg IVP BID [facility] Last Admin: 02/02/17 16:43 Dose: 40 mg Heparin Sodium (Porcine) (Heparin) 5,000 units SC Q12 [facility] PRN Reason: Protocol Last Admin: 02/02/17 21:07 Dose: 5,000 units Hydralazine HCl (Apresoline) 25 mg PO Q6 [facility] Last Admin: 02/03/17 04:05 Dose: 25 mg Levofloxacin/Dextrose (Levaquin 750mg) 150 mls @ 100 mls/hr IVPB QOTHERDAY@ 2100 [facility] Last Admin: 02/01/17 21:30 Dose: 100 mls/hr Ceftriaxone Sodium 1 gm/ (Sodium Chloride) 100 mls @ 100 mls/hr IVPB 2000 [facility] Last Admin: 02/02/17 21:00 Dose: 100 mls/hr Isoniazid (Niazid) 300 mg PO DAILY [facility] Last Admin: 02/02/17 08:30 Dose: 300 mg Labetalol HCl (Trandate) 200 mg PO BID@0900,2100 [facility] Ondansetron HCl (Zofran Inj) 4 mg IVP Q6 PRN PRN Reason: Nausea/Vomiting Last Admin: 01/31/17 14:22 Dose: 4 mg Prednisone (Prednisone Tab) 40 mg PO DAILY [facility] Last Admin: 02/02/17 08:30 Dose: 40 mg Pyridoxine HCl (Vitamin B6) 100 mg PO DAILY [facility] Last Admin: 02/02/17 08:30 Dose: 100 mg - Labs Labs: 02/01/17 06:45 02/03/17 05:20 - Constitutional Appears: Non-toxic, No Acute Distress - Head Exam Head Exam: ATRAUMATIC, NORMOCEPHALIC - Eye Exam Eye Exam: Normal appearance - Respiratory Exam Respiratory Exam: Decreased Breath Sounds, Rales, Rhonchi, Wheezes Additional comments: left decreased breath sound left lung base. scattered rales left lung base. Scattered rhonchi and wheezing posterior and anterior chest - Cardiovascular Exam Cardiovascular Exam: REGULAR RHYTHM, +S1, +S2 - GI/Abdominal Exam GI & Abdominal Exam: Soft, Normal Bowel Sounds. absent: Tenderness - Extremities Exam Extremities Exam: Pedal Edema. 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 Family meeting with patient's brother German King ([phone]) and Dr Jesse Obrien Monday 3: 00 PM 1) acute Systolic CHF exacerbation -ECHO LVEF 45-50% 12/2016 -pBNP 7860 -lasix 40 mg IV BID -daily weight -I/O - Admit to tele 2) acute on chronic CKD IV - h/o +ANCA glomerulonephropathy -monitor BUN/Cr 47/2.9 GFR: 22 -Tool Worker consult appreciated Dr Sandoval: Suggest c/w Lasix,prednisione, low K diet. Cyclophosphamide hold for possible infection (HCAP). next doses would be the second doses for a cycle of 6 doses monthly 3) Pneumonia HCAP -Recent hospitalization. recent discharge 01/13 -SOB, chills, subjective fever -Afebrile on hospital. possible secondary to immunodepression. -CXR: left upper lobe pneumonia. mild left pleural effusion. -Levofloxacin 750 mg Q48 h renal dosis 2day -Rocephin 1 g IV daily 4 day -AFB sputum ordered. -Isolation. droplet precaution -ID consult appreciated -Pulmonology consult appreciated: Possible bonchoscopy by monday 4) HTN - secondary to glomerulopathy -c/w hydralazine, amlodipine, clonidine -hold labetolol d/t CHF exacerbation 5) Latent TB -Started on treatment on last admission -Uncertain if had f/u with chest clinic -c/w INH and vitamin 6 -AFB sputum -Isolation. droplet precaution 6)hyperkalemia -resolved -secondary to renal failure -K 4.6 -duoneb PRN -Tool Worker consult appreciated -F/U BMP 7)Anemia, chronic -secondary to CKD hgb: 8.7 -Hem-Onc consult appreciated: hold cyclophosphamide for now -F/U H/H 8)Depression -Celexa 9)DVT prophylaxis -heparin. Patient with CKD <Chasity Boston - Last Filed: 02/05/17 08:39> Objective - Vital Signs/Intake and Output Vital Signs (last 24 hours): Temp Pulse Resp BP Pulse Ox 97.8 F 69 20 170/86 H 96 02/05/17 04:34 02/05/17 04:34 02/05/17 04:34 02/05/17 04:34 02/05/17 04:34 Intake and Output: 02/05/17 02/05/17 06:59 18:59 Output Total 120 Balance -120 - Medications Medications: Current Medications Albuterol/Ipratropium (Duoneb 3 Mg/0.5 Mg (3 Ml) Ud) 3 ml INH RTID [facility] Last Admin: 02/05/17 07:35 Dose: 3 ml Amlodipine Besylate (Norvasc) 5 mg PO DAILY [facility] Last Admin: 02/04/17 09:13 Dose: 5 mg Citalopram Hydrobromide (Celexa) 20 mg PO DAILY [facility] Last Admin: 02/04/17 09:15 Dose: 20 mg Clonidine HCl (Catapres) 0.3 mg PO TID [facility] Last Admin: 02/04/17 17:42 Dose: 0.3 mg Furosemide (Lasix) 80 mg IV DAILY [facility] Last Admin: 02/04/17 17:38 Dose: 80 mg Hydralazine HCl (Apresoline) 25 mg PO Q6 [facility] Last Admin: 02/05/17 04:33 Dose: 25 mg Levofloxacin/Dextrose (Levaquin 750mg) 150 mls @ 100 mls/hr IVPB QOTHERDAY@ 2100 [facility] Last Admin: 02/03/17 21:43 Dose: 100 mls/hr Ceftriaxone Sodium 1 gm/ (Sodium Chloride) 100 mls @ 100 mls/hr IVPB 2000 [facility] Last Admin: 02/04/17 22:28 Dose: 100 mls/hr Heparin Sodium/Dextrose (Heparin 25,000 Units/250ml In D5w) 250 mls @ 16 mls/ hr IV .[id number] [facility] PRN Reason: Protocol Isoniazid (Niazid) 300 mg PO DAILY [facility] Last Admin: 02/04/17 09:12 Dose: 300 mg Labetalol HCl (Trandate) 200 mg PO BID@0900,2100 [facility] Ondansetron HCl (Zofran Inj) 4 mg IVP Q6 PRN PRN Reason: Nausea/Vomiting Last Admin: 01/31/17 14:22 Dose: 4 mg Prednisone (Prednisone Tab) 40 mg PO DAILY [facility] Last Admin: 02/04/17 09:14 Dose: 40 mg Pyridoxine HCl (Vitamin B6) 100 mg PO DAILY [facility] Last Admin: 02/04/17 09:12 Dose: 100 mg - Labs Labs: 02/05/17 06:09 02/05/17 06:09 PT 11.3 SECONDS (9.6-11.2) H 02/04/17 16:00 INR 1.09 (0.92-1.08) H 02/04/17 16:00 APTT 52.6 SECONDS (23.3-32.5) H 02/05/17 06:09 - Skin Additional comments: ATTESTATION STATEMENT ATTENDING STATEMENT PATIENT SEEN AND EXAMINED. DENIES COMPLAINT TODAY. PATIENT UNDER TX FOR HOSPITAL ACQUIRED PNEUMONIA. WILL SPUTUM FOR AFB. CASE DISCUSSED WITH RESIDENT. AGREE WITH PLAN.
[2017-02-03] MEDS ORDERED: Magnesium Sulfate 2 GM in Sodium Chloride 0.9% 100 ML IVPB ONE (08:12)
[2017-02-03] MEDS: Pyridoxine 100 mg Tab PO SCH (09:20)
--- NOTE | 2017-02-03 14:15 | CP.PCM.PN ---
Subjective - Date & Time of Evaluation Date of Evaluation: 02/03/17 Time of Evaluation: 09:00 - Subjective Subjective: afebrile cough less no bloody sputum would not add zyvox at this time as cultures neg thus far Objective - Vital Signs/Intake and Output Vital Signs (last 24 hours): Temp Pulse Resp BP Pulse Ox 98.5 F 81 18 151/84 H 95 02/03/17 08:00 02/03/17 09:26 02/03/17 08:00 02/03/17 09:26 02/03/17 08:00 Intake and Output: 02/03/17 02/03/17 06:59 18:59 Intake Total 340 Output Total 400 Balance -60 - Medications Medications: Current Medications Albuterol/Ipratropium (Duoneb 3 Mg/0.5 Mg (3 Ml) Ud) 3 ml INH RTID [facility] Last Admin: 02/03/17 13:10 Dose: 3 ml Amlodipine Besylate (Norvasc) 5 mg PO DAILY [facility] Last Admin: 02/03/17 09:20 Dose: 5 mg Citalopram Hydrobromide (Celexa) 20 mg PO DAILY [facility] Last Admin: 02/03/17 09:25 Dose: 20 mg Clonidine HCl (Catapres) 0.3 mg PO TID [facility] Last Admin: 02/03/17 09:21 Dose: 0.3 mg Furosemide (Lasix) 40 mg IVP BID [facility] Last Admin: 02/03/17 09:24 Dose: 40 mg Heparin Sodium (Porcine) (Heparin) 5,000 units SC Q12 [facility] PRN Reason: Protocol Last Admin: 02/03/17 09:24 Dose: 5,000 units Hydralazine HCl (Apresoline) 25 mg PO Q6 [facility] Last Admin: 02/03/17 09:26 Dose: 25 mg Levofloxacin/Dextrose (Levaquin 750mg) 150 mls @ 100 mls/hr IVPB QOTHERDAY@ 2100 [facility] Last Admin: 02/01/17 21:30 Dose: 100 mls/hr Ceftriaxone Sodium 1 gm/ (Sodium Chloride) 100 mls @ 100 mls/hr IVPB 2000 [facility] Last Admin: 02/02/17 21:00 Dose: 100 mls/hr Isoniazid (Niazid) 300 mg PO DAILY [facility] Last Admin: 02/03/17 09:22 Dose: 300 mg Labetalol HCl (Trandate) 200 mg PO BID@0900,2100 [facility] Ondansetron HCl (Zofran Inj) 4 mg IVP Q6 PRN PRN Reason: Nausea/Vomiting Last Admin: 01/31/17 14:22 Dose: 4 mg Prednisone (Prednisone Tab) 40 mg PO DAILY [facility] Last Admin: 02/03/17 09:22 Dose: 40 mg Pyridoxine HCl (Vitamin B6) 100 mg PO DAILY [facility] Last Admin: 02/03/17 09:20 Dose: 100 mg - Labs Labs: 02/01/17 06:45 02/03/17 05:20 - Constitutional Appears: Non-toxic, Chronically Ill - Head Exam Head Exam: NORMOCEPHALIC - Eye Exam Eye Exam: absent: Scleral icterus - ENT Exam ENT Exam: Mucous Membranes Dry - Neck Exam Neck Exam: absent: Lymphadenopathy - Respiratory Exam Respiratory Exam: Decreased Breath Sounds, Rhonchi - Cardiovascular Exam Cardiovascular Exam: REGULAR RHYTHM, +S1, +S2 - GI/Abdominal Exam GI & Abdominal Exam: Distended, Soft. absent: Tenderness - Rectal Exam Rectal Exam: Deferred - Extremities Exam Extremities Exam: Pedal Edema. absent: Tenderness - Back Exam Back Exam: absent: CVA tenderness (L), CVA tenderness (R) Assessment and Plan (1) ANCA-associated vasculitis Status: Acute (2) Acute on chronic renal failure Status: Acute (3) Anasarca Status: Acute
--- NOTE | 2017-02-03 14:25 | CP.PCM.PN ---
Subjective - Date & Time of Evaluation Date of Evaluation: 02/03/17 Time of Evaluation: 14:22 - Subjective Subjective: Discussed with renal and heme. Agree that FFB with BAL and brush biopsies of the RUL are warranted since all cultures remain negative. Have discussed this with the patient and he agrees to the procedure. Scheduled for Monday 7:45 AM. Objective - Vital Signs/Intake and Output Vital Signs (last 24 hours): Temp Pulse Resp BP Pulse Ox 98.5 F 81 18 151/84 H 95 02/03/17 08:00 02/03/17 09:26 02/03/17 08:00 02/03/17 09:26 02/03/17 08:00 Intake and Output: 02/03/17 02/03/17 11:59 23:59 Intake Total 340 Output Total 400 Balance -60 - Medications Medications: Current Medications Albuterol/Ipratropium (Duoneb 3 Mg/0.5 Mg (3 Ml) Ud) 3 ml INH RTID [facility] Last Admin: 02/03/17 13:10 Dose: 3 ml Amlodipine Besylate (Norvasc) 5 mg PO DAILY [facility] Last Admin: 02/03/17 09:20 Dose: 5 mg Citalopram Hydrobromide (Celexa) 20 mg PO DAILY [facility] Last Admin: 02/03/17 09:25 Dose: 20 mg Clonidine HCl (Catapres) 0.3 mg PO TID [facility] Last Admin: 02/03/17 09:21 Dose: 0.3 mg Furosemide (Lasix) 40 mg IVP BID [facility] Last Admin: 02/03/17 09:24 Dose: 40 mg Heparin Sodium (Porcine) (Heparin) 5,000 units SC Q12 [facility] PRN Reason: Protocol Last Admin: 02/03/17 09:24 Dose: 5,000 units Hydralazine HCl (Apresoline) 25 mg PO Q6 [facility] Last Admin: 02/03/17 09:26 Dose: 25 mg Levofloxacin/Dextrose (Levaquin 750mg) 150 mls @ 100 mls/hr IVPB QOTHERDAY@ 2100 [facility] Last Admin: 02/01/17 21:30 Dose: 100 mls/hr Ceftriaxone Sodium 1 gm/ (Sodium Chloride) 100 mls @ 100 mls/hr IVPB 2000 [facility] Last Admin: 02/02/17 21:00 Dose: 100 mls/hr Isoniazid (Niazid) 300 mg PO DAILY [facility] Last Admin: 02/03/17 09:22 Dose: 300 mg Labetalol HCl (Trandate) 200 mg PO BID@0900,2100 [facility] Ondansetron HCl (Zofran Inj) 4 mg IVP Q6 PRN PRN Reason: Nausea/Vomiting Last Admin: 01/31/17 14:22 Dose: 4 mg Prednisone (Prednisone Tab) 40 mg PO DAILY [facility] Last Admin: 02/03/17 09:22 Dose: 40 mg Pyridoxine HCl (Vitamin B6) 100 mg PO DAILY [facility] Last Admin: 02/03/17 09:20 Dose: 100 mg - Labs Labs: 02/01/17 06:45 02/03/17 05:20 Assessment and Plan (1) ANCA-associated vasculitis Status: Chronic (2) Pneumonia Status: Acute (3) Pleural effusion Status: Acute
--- NOTE | 2017-02-03 16:18 | CP.PCM.PN ---
Subjective - Date & Time of Evaluation Date of Evaluation: 02/03/17 Time of Evaluation: 13:05 - Subjective Subjective: seen and examined complains of swelling Objective - Vital Signs/Intake and Output Vital Signs (last 24 hours): Temp Pulse Resp BP Pulse Ox 98.5 F 86 18 155/76 H 95 02/03/17 08:00 02/03/17 14:28 02/03/17 08:00 02/03/17 14:28 02/03/17 08:00 Intake and Output: 02/03/17 02/03/17 06:59 18:59 Intake Total 340 Output Total 400 Balance -60 - Medications Medications: Current Medications Albuterol/Ipratropium (Duoneb 3 Mg/0.5 Mg (3 Ml) Ud) 3 ml INH RTID [facility] Last Admin: 02/03/17 13:10 Dose: 3 ml Amlodipine Besylate (Norvasc) 5 mg PO DAILY [facility] Last Admin: 02/03/17 09:20 Dose: 5 mg Citalopram Hydrobromide (Celexa) 20 mg PO DAILY [facility] Last Admin: 02/03/17 09:25 Dose: 20 mg Clonidine HCl (Catapres) 0.3 mg PO TID [facility] Last Admin: 02/03/17 14:28 Dose: 0.3 mg Furosemide (Lasix) 40 mg IVP BID [facility] Last Admin: 02/03/17 09:24 Dose: 40 mg Heparin Sodium (Porcine) (Heparin) 5,000 units SC Q12 [facility] PRN Reason: Protocol Stop: 02/05/17 12:00 Last Admin: 02/03/17 09:24 Dose: 5,000 units Hydralazine HCl (Apresoline) 25 mg PO Q6 [facility] Last Admin: 02/03/17 09:26 Dose: 25 mg Levofloxacin/Dextrose (Levaquin 750mg) 150 mls @ 100 mls/hr IVPB QOTHERDAY@ 2100 [facility] Last Admin: 02/01/17 21:30 Dose: 100 mls/hr Ceftriaxone Sodium 1 gm/ (Sodium Chloride) 100 mls @ 100 mls/hr IVPB 2000 [facility] Last Admin: 02/02/17 21:00 Dose: 100 mls/hr Isoniazid (Niazid) 300 mg PO DAILY [facility] Last Admin: 02/03/17 09:22 Dose: 300 mg Labetalol HCl (Trandate) 200 mg PO BID@0900,2100 [facility] Ondansetron HCl (Zofran Inj) 4 mg IVP Q6 PRN PRN Reason: Nausea/Vomiting Last Admin: 01/31/17 14:22 Dose: 4 mg Prednisone (Prednisone Tab) 40 mg PO DAILY [facility] Last Admin: 02/03/17 09:22 Dose: 40 mg Pyridoxine HCl (Vitamin B6) 100 mg PO DAILY [facility] Last Admin: 02/03/17 09:20 Dose: 100 mg - Labs Labs: 02/01/17 06:45 02/03/17 05:20 - Constitutional Appears: Non-toxic - Head Exam Head Exam: ATRAUMATIC - Eye Exam Eye Exam: Normal appearance - ENT Exam ENT Exam: Normal Exam - Neck Exam Neck Exam: Normal Inspection - Respiratory Exam Additional comments: coarse bs at bases - Cardiovascular Exam Cardiovascular Exam: +S1, +S2 - GI/Abdominal Exam GI & Abdominal Exam: Normal Bowel Sounds - Extremities Exam Additional comments: 2+ edema - Neurological Exam Neurological Exam: Alert, Oriented x3 - Psychiatric Exam Psychiatric exam: Normal Affect - Skin Skin Exam: Warm Assessment and Plan - Assessment and Plan (Free Text) Assessment: ARF / Glomerulonephritis/ Anemia/ CHF/ Latent Tb/ Anemia plan: SHERRY - renal fxn stable, biopsy previously consistent w/ anca neg pauci immune gn s/p 1 dose iv cytoxan which is now on hold due to multiple infiltrates on CT and concern for infection. Reviewed ct w/ Dr. Mayes who agrees that pt needs bronch which will be done on monday. recc inc lasix to 80 iv bid given the persistent significant edema.
[2017-02-04 06:23] LABS: HEMATOCRIT 27.2 % (35.0-51.0); MEAN CELL VOLUME 94.6 fl (80.0-94.0); MEAN CORPUSCULAR HEMOGLOBIN 30.5 pg (27.0-31.0); MEAN CORPUSCULAR HGB CONC 32.2 g/dL (33.0-37.0); RED CELL DISTRIBUTION WIDTH 14.3 % (11.5-14.5); WHITE BLOOD COUNT 7.1 K/uL (4.8-10.8)
[2017-02-04 06:40] LABS: ALB/GLOB RATIO 0.8 (1.0-2.1); BILIRUBIN,TOTAL 0.3 mg/dl (0.2-1.3); CALCIUM 7.6 mg/dL (8.4-10.2); POTASSIUM 4.8 MMOL/L (3.6-5.0); TOTAL PROTEIN 5.5 G/DL (6.3-8.2)
[2017-02-04] MEDS: Albuterol-Ipratrop 3 mg / 0.5 (3 ml) UD INH SCH ×3 (08:45→20:06)
[2017-02-04] MEDS: Pyridoxine 100 mg Tab PO SCH (09:12)
--- NOTE | 2017-02-04 11:27 | CP.PCM.PN ---
Subjective - Date & Time of Evaluation Date of Evaluation: 02/04/17 Time of Evaluation: 11:00 - Subjective Subjective: C/o cough & feeks weak Objective - Vital Signs/Intake and Output Vital Signs (last 24 hours): Temp Pulse Resp BP Pulse Ox 98.8 F 78 20 122/86 95 02/04/17 08:00 02/04/17 09:13 02/04/17 08:00 02/04/17 10:59 02/04/17 08:00 - Medications Medications: Current Medications Albuterol/Ipratropium (Duoneb 3 Mg/0.5 Mg (3 Ml) Ud) 3 ml INH RTID [facility] Last Admin: 02/04/17 08:45 Dose: 3 ml Amlodipine Besylate (Norvasc) 5 mg PO DAILY [facility] Last Admin: 02/04/17 09:13 Dose: 5 mg Citalopram Hydrobromide (Celexa) 20 mg PO DAILY [facility] Last Admin: 02/04/17 09:15 Dose: 20 mg Clonidine HCl (Catapres) 0.3 mg PO TID [facility] Last Admin: 02/04/17 09:13 Dose: 0.3 mg Furosemide (Lasix) 40 mg IVP BID [facility] Last Admin: 02/04/17 09:15 Dose: 40 mg Heparin Sodium (Porcine) (Heparin) 5,000 units SC Q12 [facility] PRN Reason: Protocol Stop: 02/05/17 12:00 Last Admin: 02/04/17 09:14 Dose: 5,000 units Hydralazine HCl (Apresoline) 25 mg PO Q6 [facility] Last Admin: 02/04/17 09:12 Dose: 25 mg Levofloxacin/Dextrose (Levaquin 750mg) 150 mls @ 100 mls/hr IVPB QOTHERDAY@ 2100 [facility] Last Admin: 02/03/17 21:43 Dose: 100 mls/hr Ceftriaxone Sodium 1 gm/ (Sodium Chloride) 100 mls @ 100 mls/hr IVPB 1999 [facility] Last Admin: 02/03/17 20:30 Dose: 100 mls/hr Isoniazid (Niazid) 300 mg PO DAILY [facility] Last Admin: 02/04/17 09:12 Dose: 300 mg Labetalol HCl (Trandate) 200 mg PO BID@0900,2100 [facility] Ondansetron HCl (Zofran Inj) 4 mg IVP Q6 PRN PRN Reason: Nausea/Vomiting Last Admin: 01/31/17 14:22 Dose: 4 mg Prednisone (Prednisone Tab) 40 mg PO DAILY [facility] Last Admin: 02/04/17 09:14 Dose: 40 mg Pyridoxine HCl (Vitamin B6) 100 mg PO DAILY [facility] Last Admin: 02/04/17 09:12 Dose: 100 mg - Labs Labs: 02/04/17 06:00 02/04/17 06:00 - Respiratory Exam Additional comments: Lungs rhonchi - Cardiovascular Exam Cardiovascular Exam: REGULAR RHYTHM - Extremities Exam Additional comments: 2-3+ bipedal edema Assessment and Plan - Assessment and Plan (Free Text) Assessment: 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 Currently treated with Rocephin & INH CHF Plan: Continue diuretics Renal function is improving For Bronchoscopy on Mon.
--- NOTE | 2017-02-04 11:40 | CP.PCM.PN ---
<Felix Medeiros - Last Filed: 02/04/17 12:27> Subjective - Date & Time of Evaluation Date of Evaluation: 02/04/17 Time of Evaluation: 11:40 - Subjective Subjective: pt seen and examined at bedside this morning. Pt had an uneventful overnight. Lying in bed comfortably in NAD on O2 via NC. Reports worsening SOB and GUIDRY ( GUIDRY while talking) as of last night. Has no other complaints. Denies fever, headache, changes in vision, cough, chest pain, N/V/D, urinary symptoms, numbness/tingling, leg pain. Objective - Vital Signs/Intake and Output Vital Signs (last 24 hours): Temp Pulse Resp BP Pulse Ox 98.8 F 78 20 122/86 95 02/04/17 08:00 02/04/17 09:13 02/04/17 08:00 02/04/17 10:59 02/04/17 08:00 - Medications Medications: Current Medications Albuterol/Ipratropium (Duoneb 3 Mg/0.5 Mg (3 Ml) Ud) 3 ml INH RTID [facility] Last Admin: 02/04/17 08:45 Dose: 3 ml Amlodipine Besylate (Norvasc) 5 mg PO DAILY [facility] Last Admin: 02/04/17 09:13 Dose: 5 mg Citalopram Hydrobromide (Celexa) 20 mg PO DAILY [facility] Last Admin: 02/04/17 09:15 Dose: 20 mg Clonidine HCl (Catapres) 0.3 mg PO TID [facility] Last Admin: 02/04/17 09:13 Dose: 0.3 mg Furosemide (Lasix) 40 mg IVP BID [facility] Last Admin: 02/04/17 09:15 Dose: 40 mg Heparin Sodium (Porcine) (Heparin) 5,000 units SC Q12 [facility] PRN Reason: Protocol Stop: 02/05/17 12:00 Last Admin: 02/04/17 09:14 Dose: 5,000 units Hydralazine HCl (Apresoline) 25 mg PO Q6 [facility] Last Admin: 02/04/17 09:12 Dose: 25 mg Levofloxacin/Dextrose (Levaquin 750mg) 150 mls @ 100 mls/hr IVPB QOTHERDAY@ 2100 [facility] Last Admin: 02/03/17 21:43 Dose: 100 mls/hr Ceftriaxone Sodium 1 gm/ (Sodium Chloride) 100 mls @ 100 mls/hr IVPB 2000 [facility] Last Admin: 02/03/17 20:30 Dose: 100 mls/hr Isoniazid (Niazid) 300 mg PO DAILY [facility] Last Admin: 02/04/17 09:12 Dose: 300 mg Labetalol HCl (Trandate) 200 mg PO BID@0900,2100 [facility] Ondansetron HCl (Zofran Inj) 4 mg IVP Q6 PRN PRN Reason: Nausea/Vomiting Last Admin: 01/31/17 14:22 Dose: 4 mg Prednisone (Prednisone Tab) 40 mg PO DAILY [facility] Last Admin: 02/04/17 09:14 Dose: 40 mg Pyridoxine HCl (Vitamin B6) 100 mg PO DAILY [facility] Last Admin: 02/04/17 09:12 Dose: 100 mg - Labs Labs: 02/04/17 06:00 02/04/17 06:00 - Constitutional Appears: Non-toxic, No Acute Distress - Eye Exam Eye Exam: EOMI. absent: Conjunctival injection, Periorbital swelling, Scleral icterus Pupil Exam: PERRL - ENT Exam ENT Exam: Mucous Membranes Moist - Respiratory Exam Respiratory Exam: Rales, Wheezes. absent: Accessory Muscle Use, Chest Wall Tenderness, Respiratory Distress Additional comments: bibasilar rales. Wheezing throughout both lung [place]. - Cardiovascular Exam Cardiovascular Exam: REGULAR RHYTHM, RRR, +S1, +S2. absent: Gallop, JVD, Rubs, Murmur - GI/Abdominal Exam GI & Abdominal Exam: Soft, Normal Bowel Sounds. absent: Distended, Guarding, Rigid, Tenderness - Extremities Exam Extremities Exam: Pedal Edema. absent: Calf Tenderness, Tenderness Additional comments: 2+ pitting edema bilaterally. - Neurological Exam Neurological Exam: Alert, Awake, CN II-XII Intact, Oriented x3 - Psychiatric Exam Psychiatric exam: Normal Affect, Normal Mood Assessment and Plan - Assessment and Plan (Free Text) Assessment: 67 y/o homeless male with PMHx remarkable for HTN, ETOH abuse, seizures, COPD, Systolic HF (LVEF 45-50%), 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 1) Systolic CHF Exacerbation -pBNP 7860 -increased Lasix to 80mg IV BID -daily weight checks, increased to 188lbs (+8lb gain) -I/O: -60 2) Acute on CKD Stage IV - h/o +ANCA glomerulonephropathy -monitor BUN/Cr 47/2.9 GFR: 22 -renal function improving as per Dr. Kapoor. -Nephrology consult as per Dr. Sandoval: Suggests prednisione, low K diet. Cyclophosphamide held due to multiple lung infiltrates on CT, recommends increasing Lasix dosage to 80mg IV BID. 3) HCAP -Recent discharge from hospital 01/13 -Afebrile -CXR: right upper lobe pneumonia. mild left pleural effusion. -Levofloxacin 750 mg Q48 h renal dosage -Rocephin 1 g IV daily -Isolation. droplet precaution -As per Dr. Mayes, pt for bronchoscopy on Tuesday 02/06 at 7:45am. 4) Hypertension, uncontrolled - secondary to glomerulopathy -c/w hydralazine, amlodipine, clonidine -hold labetolol d/t CHF exacerbation 5) Latent TB -c/w INH and vitamin B6 supplementation -AFB sputum 6) Hyperkalemia (resolved) -secondary to renal failure -K 4.6 -follow BMPs 7) Anemia, chronic -secondary to CKD hgb: 8.7 -Hem-Onc consult appreciated: hold cyclophosphamide for now -F/U H/H 8) Depression -Celexa 9) DVT prophylaxis -Heparin <Chasity Boston - Last Filed: 02/05/17 08:53> Objective - Vital Signs/Intake and Output Vital Signs (last 24 hours): Temp Pulse Resp BP Pulse Ox 97.8 F 69 20 170/86 H 96 02/05/17 04:34 02/05/17 04:34 02/05/17 04:34 02/05/17 04:34 02/05/17 04:34 Intake and Output: 02/05/17 02/05/17 06:59 18:59 Output Total 120 Balance -120 - Medications Medications: Current Medications Albuterol/Ipratropium (Duoneb 3 Mg/0.5 Mg (3 Ml) Ud) 3 ml INH RTID [facility] Last Admin: 02/05/17 07:35 Dose: 3 ml Amlodipine Besylate (Norvasc) 5 mg PO DAILY [facility] Last Admin: 02/04/17 09:13 Dose: 5 mg Citalopram Hydrobromide (Celexa) 20 mg PO DAILY [facility] Last Admin: 02/04/17 09:15 Dose: 20 mg Clonidine HCl (Catapres) 0.3 mg PO TID [facility] Last Admin: 02/04/17 17:42 Dose: 0.3 mg Furosemide (Lasix) 80 mg IV DAILY [facility] Last Admin: 02/04/17 17:38 Dose: 80 mg Hydralazine HCl (Apresoline) 25 mg PO Q6 [facility] Last Admin: 02/05/17 04:33 Dose: 25 mg Levofloxacin/Dextrose (Levaquin 750mg) 150 mls @ 100 mls/hr IVPB QOTHERDAY@ 2100 [facility] Last Admin: 02/03/17 21:43 Dose: 100 mls/hr Ceftriaxone Sodium 1 gm/ (Sodium Chloride) 100 mls @ 100 mls/hr IVPB 2000 [facility] Last Admin: 02/04/17 22:28 Dose: 100 mls/hr Heparin Sodium/Dextrose (Heparin 25,000 Units/250ml In D5w) 250 mls @ 16 mls/ hr IV .[id number] [facility] PRN Reason: Protocol Isoniazid (Niazid) 300 mg PO DAILY [facility] Last Admin: 02/04/17 09:12 Dose: 300 mg Labetalol HCl (Trandate) 200 mg PO BID@0900,2100 [facility] Ondansetron HCl (Zofran Inj) 4 mg IVP Q6 PRN PRN Reason: Nausea/Vomiting Last Admin: 01/31/17 14:22 Dose: 4 mg Prednisone (Prednisone Tab) 40 mg PO DAILY [facility] Last Admin: 02/04/17 09:14 Dose: 40 mg Pyridoxine HCl (Vitamin B6) 100 mg PO DAILY [facility] Last Admin: 02/04/17 09:12 Dose: 100 mg - Labs Labs: 02/05/17 06:09 02/05/17 06:09 PT 11.3 SECONDS (9.6-11.2) H 02/04/17 16:00 INR 1.09 (0.92-1.08) H 02/04/17 16:00 APTT 52.6 SECONDS (23.3-32.5) H 02/05/17 06:09 - Skin Additional comments: ATTESTATION STATEMENT ATTENDING STATEMENT PATIENT SEEN AND EXAMINED. TIME OF EXAM IN AM. PATIENT APPEARS SHORT OF BREATH ABLE TO SPEAK IN 2-3 WORD SENTENCES. POSITIVE PERIPHERAL EDEMA.. LUNGS BILATERAL EXP WHEEZES AND BIBASILAR CRACKLES. CASE DISCUSSED WITH RESIDENT. IMP WORSENING FLUID OVERLOAD. WILL GIVE ADDITIONAL LASIX 40MG IV THIS AM. RESIDENT TO REEVALUATE IN THIS AFTERNOON FOR ADDITIONAL DIURETIC. AGREE WITH THIS PLAN.
--- NOTE | 2017-02-04 13:43 | US ---
PROCEDURE: Right Upper Extremity Venous Doppler HISTORY: Right forearm swelling. R/O DVT COMPARISON: None available. TECHNIQUE: Right upper extremity deep veins, including the lower internal jugular, subclavian, axillary and brachial veins, were evaluated flow, compressibility and respiratory phasicity. FINDINGS: Normal flow, compressibility and respiratory phasicity was evaluated in the right upper extremity deep veins. The subclavian vein, axillary vein were fully compressible. The basilic vein is partially compressible. This could be partially due to the catheter versus developing thrombus surrounding the catheter. The cephalic vein is fully compressible. Catheter is seen within the subclavian vein and the axillary vein. Echogenic material seen surrounding the catheter within the subclavian vein which could represent fibrin versus thrombus. Full compressibility of the right antecubital vein, ulnar vein and radial veins were seen. IMPRESSION: Possible developing thrombus in the basilic and axillary veins surrounding the PICC. Discussed with nurse Mcdonough at approximately 1:40 p.m. on 02/04/2017.
--- NOTE | 2017-02-04 15:57 | CP.PCM.PN ---
<DeltaErin - Last Filed: 02/04/17 15:55> Subjective - Date & Time of Evaluation Date of Evaluation: 02/04/17 Time of Evaluation: 14:00 - Subjective Subjective: right upper Ext Doppler US showed possible thrombus formation surrounding PICC line in axillary vein . Will Start Heparin drip will f/u Heparin Nomogram Objective - Vital Signs/Intake and Output Vital Signs (last 24 hours): Temp Pulse Resp BP Pulse Ox 98 F 72 20 158/80 H 96 02/04/17 12:24 02/04/17 12:24 02/04/17 12:24 02/04/17 12:24 02/04/17 12:24 - Medications Medications: Current Medications Albuterol/Ipratropium (Duoneb 3 Mg/0.5 Mg (3 Ml) Ud) 3 ml INH RTID [facility] Last Admin: 02/04/17 13:41 Dose: 3 ml Amlodipine Besylate (Norvasc) 5 mg PO DAILY [facility] Last Admin: 02/04/17 09:13 Dose: 5 mg Citalopram Hydrobromide (Celexa) 20 mg PO DAILY [facility] Last Admin: 02/04/17 09:15 Dose: 20 mg Clonidine HCl (Catapres) 0.3 mg PO TID [facility] Last Admin: 02/04/17 12:03 Dose: 0.3 mg Furosemide (Lasix) 80 mg IV DAILY [facility] Heparin Sodium (Porcine) (Heparin) 5,000 units SC Q12 [facility] PRN Reason: Protocol Stop: 02/05/17 12:00 Last Admin: 02/04/17 09:14 Dose: 5,000 units Hydralazine HCl (Apresoline) 25 mg PO Q6 [facility] Last Admin: 02/04/17 09:12 Dose: 25 mg Levofloxacin/Dextrose (Levaquin 750mg) 150 mls @ 100 mls/hr IVPB QOTHERDAY@ 2100 [facility] Last Admin: 02/03/17 21:43 Dose: 100 mls/hr Ceftriaxone Sodium 1 gm/ (Sodium Chloride) 100 mls @ 100 mls/hr IVPB 2000 [facility] Last Admin: 02/03/17 20:30 Dose: 100 mls/hr Isoniazid (Niazid) 300 mg PO DAILY [facility] Last Admin: 02/04/17 09:12 Dose: 300 mg Labetalol HCl (Trandate) 200 mg PO BID@0900,2100 [facility] Ondansetron HCl (Zofran Inj) 4 mg IVP Q6 PRN PRN Reason: Nausea/Vomiting Last Admin: 01/31/17 14:22 Dose: 4 mg Prednisone (Prednisone Tab) 40 mg PO DAILY [facility] Last Admin: 02/04/17 09:14 Dose: 40 mg Pyridoxine HCl (Vitamin B6) 100 mg PO DAILY [facility] Last Admin: 02/04/17 09:12 Dose: 100 mg - Labs Labs: 02/04/17 06:00 02/04/17 06:00 <Chasity Boston - Last Filed: 02/05/17 09:04> Objective - Vital Signs/Intake and Output Vital Signs (last 24 hours): Temp Pulse Resp BP Pulse Ox 79.5 F L 80 20 164/82 H 96 02/05/17 08:00 02/05/17 08:00 02/05/17 08:00 02/05/17 08:00 02/05/17 08:00 Intake and Output: 02/05/17 02/05/17 06:59 18:59 Output Total 120 Balance -120 - Medications Medications: Current Medications Albuterol/Ipratropium (Duoneb 3 Mg/0.5 Mg (3 Ml) Ud) 3 ml INH RTID [facility] Last Admin: 02/05/17 07:35 Dose: 3 ml Amlodipine Besylate (Norvasc) 5 mg PO DAILY [facility] Last Admin: 02/04/17 09:13 Dose: 5 mg Citalopram Hydrobromide (Celexa) 20 mg PO DAILY [facility] Last Admin: 02/04/17 09:15 Dose: 20 mg Clonidine HCl (Catapres) 0.3 mg PO TID [facility] Last Admin: 02/04/17 17:42 Dose: 0.3 mg Furosemide (Lasix) 80 mg IV DAILY [facility] Last Admin: 02/04/17 17:38 Dose: 80 mg Hydralazine HCl (Apresoline) 25 mg PO Q6 [facility] Last Admin: 02/05/17 04:33 Dose: 25 mg Levofloxacin/Dextrose (Levaquin 750mg) 150 mls @ 100 mls/hr IVPB QOTHERDAY@ 2100 [facility] Last Admin: 02/03/17 21:43 Dose: 100 mls/hr Ceftriaxone Sodium 1 gm/ (Sodium Chloride) 100 mls @ 100 mls/hr IVPB 2000 [facility] Last Admin: 02/04/17 22:28 Dose: 100 mls/hr Heparin Sodium/Dextrose (Heparin 25,000 Units/250ml In D5w) 250 mls @ 16 mls/ hr IV .[id number] [facility] PRN Reason: Protocol Isoniazid (Niazid) 300 mg PO DAILY [facility] Last Admin: 02/04/17 09:12 Dose: 300 mg Labetalol HCl (Trandate) 200 mg PO BID@0900,2100 [facility] Ondansetron HCl (Zofran Inj) 4 mg IVP Q6 PRN PRN Reason: Nausea/Vomiting Last Admin: 01/31/17 14:22 Dose: 4 mg Prednisone (Prednisone Tab) 40 mg PO DAILY [facility] Last Admin: 02/04/17 09:14 Dose: 40 mg Pyridoxine HCl (Vitamin B6) 100 mg PO DAILY [facility] Last Admin: 02/04/17 09:12 Dose: 100 mg - Labs Labs: 02/05/17 06:09 02/05/17 06:09 PT 11.3 SECONDS (9.6-11.2) H 02/04/17 16:00 INR 1.09 (0.92-1.08) H 02/04/17 16:00 APTT 52.6 SECONDS (23.3-32.5) H 02/05/17 06:09 - Skin Additional comments: CASE DISCUSSED WITH RESIDENT. WILL START ON IV HEPARIN DRIP FOR UPPER EXTREMITY DVT. 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 PATIENT REPORTS TO IMPROVEMENT IN SOB. AGREE WITH PLAN.
[2017-02-04] MEDS ORDERED: Heparin 25,000units in D5W 250 ML IV SCH (16:00)
[2017-02-04 17:32] LABS: PARTIAL THROMBOPLASTIN TIME 27.7 SECONDS (23.3-32.5)
[2017-02-05 06:15] LABS: BASO % 0.2 % (0.0-2.0); HEMATOCRIT 27.4 % (35.0-51.0); LYMPH # 1.3 K/uL (1.0-4.3); LYMPH % 16.3 % (20.0-40.0); MEAN CELL VOLUME 94.9 fl (80.0-94.0); MEAN CORPUSCULAR HEMOGLOBIN 30.7 pg (27.0-31.0); MEAN CORPUSCULAR HGB CONC 32.4 g/dL (33.0-37.0); MEAN PLATELET VOLUME 7.5 fl (7.2-11.7); MONO # 0.6 K/uL (0.0-0.8); MONO % 7.3 % (0.0-10.0); NEUT # 5.9 K/uL (1.8-7.0); NEUT % 76.2 % (50.0-75.0); RED CELL DISTRIBUTION WIDTH 14.5 % (11.5-14.5); WHITE BLOOD COUNT 7.8 K/uL (4.8-10.8)
[2017-02-05 06:26] LABS: ALB/GLOB RATIO 0.8 (1.0-2.1); BILIRUBIN,TOTAL 0.2 mg/dl (0.2-1.3); CALCIUM 7.8 mg/dL (8.4-10.2); TOTAL PROTEIN 5.4 G/DL (6.3-8.2)
[2017-02-05 06:30] LABS: POTASSIUM 5.3 MMOL/L (3.6-5.0)
[2017-02-05] MEDS ORDERED: Heparin 25,000units in D5W 250 ML IV SCH (06:37)
[2017-02-05] MEDS: Albuterol-Ipratrop 3 mg / 0.5 (3 ml) UD INH SCH ×3 (07:35→19:59)
[2017-02-05] MEDS: Pyridoxine 100 mg Tab PO SCH (09:02)
--- NOTE | 2017-02-05 09:33 | CP.PCM.PN ---
<Angel Mcgill - Last Filed: 02/05/17 11:10> Subjective - Date & Time of Evaluation Date of Evaluation: 02/05/17 Time of Evaluation: 09:27 - Subjective Subjective: The patient is a 67 y/o homeless man with PMHx HTN, Alcohol abuse, seizure and COPD, sCHF (12/2016 ECHO LVEF 45-50%) c/o SOB and GUIDRY admitted for CHF excerbation and acute on chronic CKD. The patient was seen this morning. There are no acute events overnight. The patient is not in acute distress. The patient reports that the swelling in the arms are better but still has a lot of swelling in the legs. The patient is on O2 nasal cannula at 3L. The patient is tolerating PO and has no complaints. The patient denies bleeding from the nose, mouth, gums, urine, and stool. The patient denies headaches, dizziness, chest pain, dyspnea, abdominal pain, nausea , vomiting, diarrhea, dysuria, and fever. The patient gained 1 lb overnight. Objective - Vital Signs/Intake and Output Vital Signs (last 24 hours): Temp Pulse Resp BP Pulse Ox 79.5 F L 80 20 164/82 H 96 02/05/17 08:00 02/05/17 09:03 02/05/17 08:00 02/05/17 09:03 02/05/17 08:00 Intake and Output: 02/05/17 02/05/17 06:59 18:59 Output Total 120 Balance -120 - Medications Medications: Current Medications Albuterol/Ipratropium (Duoneb 3 Mg/0.5 Mg (3 Ml) Ud) 3 ml INH RTID [facility] Last Admin: 02/05/17 07:35 Dose: 3 ml Amlodipine Besylate (Norvasc) 5 mg PO DAILY [facility] Last Admin: 02/05/17 09:02 Dose: 5 mg Citalopram Hydrobromide (Celexa) 20 mg PO DAILY [facility] Last Admin: 02/05/17 09:02 Dose: 20 mg Clonidine HCl (Catapres) 0.3 mg PO TID [facility] Last Admin: 02/05/17 09:03 Dose: 0.3 mg Furosemide (Lasix) 80 mg IV DAILY [facility] Last Admin: 02/05/17 09:02 Dose: 80 mg Hydralazine HCl (Apresoline) 25 mg PO Q6 [facility] Last Admin: 02/05/17 09:03 Dose: 25 mg Levofloxacin/Dextrose (Levaquin 750mg) 150 mls @ 100 mls/hr IVPB QOTHERDAY@ 2100 [facility] Last Admin: 02/03/17 21:43 Dose: 100 mls/hr Ceftriaxone Sodium 1 gm/ (Sodium Chloride) 100 mls @ 100 mls/hr IVPB 2000 [facility] Last Admin: 02/04/17 22:28 Dose: 100 mls/hr Heparin Sodium/Dextrose (Heparin 25,000 Units/250ml In D5w) 250 mls @ 16 mls/ hr IV .[id number] [facility] PRN Reason: Protocol Last Admin: 02/05/17 09:14 Dose: 16 mls/hr Isoniazid (Niazid) 300 mg PO DAILY [facility] Last Admin: 02/05/17 09:02 Dose: 300 mg Labetalol HCl (Trandate) 200 mg PO BID@0900,2100 [facility] Ondansetron HCl (Zofran Inj) 4 mg IVP Q6 PRN PRN Reason: Nausea/Vomiting Last Admin: 01/31/17 14:22 Dose: 4 mg Prednisone (Prednisone Tab) 40 mg PO DAILY [facility] Last Admin: 02/05/17 09:04 Dose: 40 mg Pyridoxine HCl (Vitamin B6) 100 mg PO DAILY [facility] Last Admin: 02/05/17 09:02 Dose: 100 mg - Labs Labs: 02/05/17 06:09 02/05/17 06:09 PT 11.3 SECONDS (9.6-11.2) H 02/04/17 16:00 INR 1.09 (0.92-1.08) H 02/04/17 16:00 APTT 52.6 SECONDS (23.3-32.5) H 02/05/17 06:09 - Constitutional Appears: No Acute Distress - Head Exam Head Exam: ATRAUMATIC, NORMOCEPHALIC - Eye Exam Eye Exam: absent: Periorbital swelling, Periorbital tenderness, Scleral icterus - ENT Exam ENT Exam: Mucous Membranes Moist - Neck Exam Neck Exam: Full ROM - Respiratory Exam Respiratory Exam: Rhonchi, Wheezes. absent: Accessory Muscle Use, Decreased Breath Sounds, Respiratory Distress, NORMAL BREATHING PATTERN Additional comments: on O2 nasal cannula 3L - Cardiovascular Exam Cardiovascular Exam: REGULAR RHYTHM. absent: Tachycardia - GI/Abdominal Exam GI & Abdominal Exam: Soft, Normal Bowel Sounds. absent: Distended, Tenderness - Extremities Exam Extremities Exam: Pedal Edema. absent: Calf Tenderness, Tenderness Additional comments: +3 bilateral lower extremities - Neurological Exam Neurological Exam: Alert, Awake, Oriented x3 - Skin Skin Exam: Dry, Intact, Warm Assessment and Plan - Assessment and Plan (Free Text) Assessment: The patient is a 67 y/o homeless man with PMHx remarkable for HTN, ETOH abuse, seizures, COPD, Systolic HF (LVEF 45-50%), SHERRY secondary to Khanh Granulomatosis vasculitis admitted for CHF exacerbation and acute on CKD Plan: 1) Systolic CHF Exacerbation -pBNP 7860 -increased Lasix to 80mg IV BID -daily weight checks, increased to 189lbs (+1lb gain) -I/O: -120 -cardiology consult ordered 2) Acute on CKD Stage IV - h/o +ANCA glomerulonephropathy -monitor BUN/Cr 56/2.8 GFR: 23 -renal function improving as per Dr. Kapoor. -Nephrology consult as per Dr. Sandoval: Suggests prednisione, low K diet. Cyclophosphamide held due to multiple lung infiltrates on CT, recommends increasing Lasix dosage to 80mg IV BID. -right upper Ext Doppler US 02/03 showed possible thrombus formation surrounding PICC line in axillary vein 3) HCAP -Recent discharge from hospital 01/13 -Afebrile -CXR: right upper lobe pneumonia. mild left pleural effusion. -Levofloxacin 750 mg Q48 h renal dosage -Rocephin 1 g IV daily -Isolation. droplet precaution -As per Dr. Mayes, pt for bronchoscopy on Tuesday 02/06 at 7:45am. 4) Hypertension, uncontrolled - secondary to glomerulopathy -c/w hydralazine, amlodipine, clonidine -hold labetolol d/t CHF exacerbation 5) Latent TB -c/w INH and vitamin B6 supplementation -AFB sputum 6) Hyperkalemia -secondary to renal failure -K 5.3, possibly due to heparin -follow BMPs 7) Anemia, chronic -secondary to CKD -hgb: 8.9 -Hem-Onc consult appreciated: hold cyclophosphamide for now -F/U H/H 8) Depression -Celexa 9) DVT prophylaxis -Heparin <Darvin,Chasity - Last Filed: 02/06/17 08:21> Objective - Vital Signs/Intake and Output Vital Signs (last 24 hours): Temp Pulse Resp BP Pulse Ox 97.5 F L 73 20 175/88 H 99 02/06/17 05:00 02/06/17 05:21 02/06/17 05:00 02/06/17 07:11 02/06/17 05:00 Intake and Output: 02/06/17 02/06/17 06:59 18:59 Output Total 300 Balance -300 - Medications Medications: Current Medications Albuterol/Ipratropium (Duoneb 3 Mg/0.5 Mg (3 Ml) Ud) 3 ml INH RTID [facility] Last Admin: 02/05/17 19:59 Dose: 3 ml Amlodipine Besylate (Norvasc) 5 mg PO DAILY [facility] Last Admin: 02/05/17 09:02 Dose: 5 mg Citalopram Hydrobromide (Celexa) 20 mg PO DAILY [facility] Last Admin: 02/05/17 09:02 Dose: 20 mg Clonidine HCl (Catapres) 0.3 mg PO TID [facility] Last Admin: 02/05/17 17:26 Dose: 0.3 mg Furosemide (Lasix) 80 mg IV BID [facility] Hydralazine HCl (Apresoline) 25 mg PO Q6 [facility] Last Admin: 02/06/17 05:21 Dose: 25 mg Levofloxacin/Dextrose (Levaquin 750mg) 150 mls @ 100 mls/hr IVPB QOTHERDAY@ 2100 [facility] Last Admin: 02/05/17 23:15 Dose: 100 mls/hr Ceftriaxone Sodium 1 gm/ (Sodium Chloride) 100 mls @ 100 mls/hr IVPB 2000 [facility] Last Admin: 02/05/17 22:16 Dose: 100 mls/hr Isoniazid (Niazid) 300 mg PO DAILY [facility] Last Admin: 02/05/17 09:02 Dose: 300 mg Labetalol HCl (Trandate) 200 mg PO BID@0900,2100 [facility] Metolazone (Zaroxolyn) 5 mg PO QOD [facility] Ondansetron HCl (Zofran Inj) 4 mg IVP Q6 PRN PRN Reason: Nausea/Vomiting Last Admin: 01/31/17 14:22 Dose: 4 mg Prednisone (Prednisone Tab) 40 mg PO DAILY [facility] Last Admin: 02/05/17 09:04 Dose: 40 mg Pyridoxine HCl (Vitamin B6) 100 mg PO DAILY [facility] Last Admin: 02/05/17 09:02 Dose: 100 mg - Labs Labs: 02/06/17 06:30 02/06/17 06:30 PT 11.3 SECONDS (9.6-11.2) H 02/04/17 16:00 INR 1.09 (0.92-1.08) H 02/04/17 16:00 APTT 42.3 SECONDS (23.3-32.5) H 02/05/17 18:30 - Skin Additional comments: Attestation statement Attending aurelio Patient seen and examined. CAse discussed with resident. Zaroxyln added by Leverman. Foor bronchoscopy Mon. 02/06. Patient reports breathing easier today. Agree with plan.
[2017-02-05] MEDS ORDERED: Sod Polystyrene Sulf 15 gm/60 ml Oral Susp PO ONE (10:12)
[2017-02-05] MEDS ORDERED: metOLazone 5 MG TAB PO SCH (11:30)
--- NOTE | 2017-02-05 11:42 | CP.PCM.CON ---
History of Present Illness - History of Present Illness History of Present Illness: History of Present Illness: This 67 year old male, former cigarette smoker with latent Tb, presented to the emergency room with increased dyspnea on exertion. 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 He had been on treatment and received one dose of cyclophosphamide and was scheduled for another dose when he presented with the above. He has been receiving prophylactic INH along with his other medications. He has had a CT chest performed which shows bilateral pleural effusions and passive basal atelectasis, but also reveals a RUL interstitial and alveolar infiltrate as well. He denies any chest pain or productive cough. No hemoptysis. No fever or chills. Cardiology consult called for elevated BNP on 01/28 : 7860 Creat: 2.8 Pt has CKD COPD HTN EKG: NSR Echo: EF: 45-50% Pt denies sob/monzon, chest pain at present Past Patient History - Infectious Disease Hx of Infectious Diseases: None - Past Medical History & Family History Past Medical History?: Yes - Past Social History Smoking Status: Former Smoker (recently quit, was heavy smoker before) Chewing Tobacco Use: No Cigar Use: No Alcohol: > 2 Drinks/Day (previous heavy alcohol intake) Drugs: Denies Home Situation {Lives}: Homeless - CARDIAC Hx Hypertension: Yes - PULMONARY Hx Chronic Obstructive Pulmonary Disease (COPD): Yes Hx Pneumonia: Yes Other/Comment: latent tuberculosis - NEUROLOGICAL Hx Neurological Disorder: No - HEENT Hx HEENT Problems: No - RENAL Hx Chronic Kidney Disease: Yes Other/Comment: glomerulonephritis - ENDOCRINE/METABOLIC Hx Endocrine Disorders: No - HEMATOLOGICAL/ONCOLOGICAL Hx Anemia: Yes - INTEGUMENTARY Hx Dermatological Problems: No - MUSCULOSKELETAL/RHEUMATOLOGICAL Other/Comment: paraspinal abscess - GASTROINTESTINAL Hx Gastrointestinal Disorders: Yes Hx Hemorrhoids: Yes - GENITOURINARY/GYNECOLOGICAL Hx Genitourinary Disorders: No - PSYCHIATRIC Hx Anxiety: Yes - SURGICAL HISTORY Hx Coronary Stent: No - ANESTHESIA Hx Anesthesia: Yes Hx Anesthesia Reactions: No Meds Allergies/Adverse Reactions: Allergies Allergy/AdvReac Type Severity Reaction Status Date / Time sulfamethoxazole Allergy RASH Verified 04/09/16 11:57 [From ] trimethoprim [From ] Allergy RASH Verified 04/09/16 11:57 - Medications Medications: Current Medications Albuterol/Ipratropium (Duoneb 3 Mg/0.5 Mg (3 Ml) Ud) 3 ml INH RTID [facility] Last Admin: 02/05/17 07:35 Dose: 3 ml Amlodipine Besylate (Norvasc) 5 mg PO DAILY [facility] Last Admin: 02/05/17 09:02 Dose: 5 mg Citalopram Hydrobromide (Celexa) 20 mg PO DAILY [facility] Last Admin: 02/05/17 09:02 Dose: 20 mg Clonidine HCl (Catapres) 0.3 mg PO TID [facility] Last Admin: 02/05/17 09:03 Dose: 0.3 mg Furosemide (Lasix) 80 mg IV DAILY [facility] Last Admin: 02/05/17 09:02 Dose: 80 mg Hydralazine HCl (Apresoline) 25 mg PO Q6 [facility] Last Admin: 02/05/17 09:03 Dose: 25 mg Levofloxacin/Dextrose (Levaquin 750mg) 150 mls @ 100 mls/hr IVPB QOTHERDAY@ 2100 [facility] Last Admin: 02/03/17 21:43 Dose: 100 mls/hr Ceftriaxone Sodium 1 gm/ (Sodium Chloride) 100 mls @ 100 mls/hr IVPB 2000 [facility] Last Admin: 02/04/17 22:28 Dose: 100 mls/hr Heparin Sodium/Dextrose (Heparin 25,000 Units/250ml In D5w) 250 mls @ 16 mls/ hr IV .[id number] [facility] PRN Reason: Protocol Last Admin: 02/05/17 09:14 Dose: 16 mls/hr Isoniazid (Niazid) 300 mg PO DAILY [facility] Last Admin: 02/05/17 09:02 Dose: 300 mg Labetalol HCl (Trandate) 200 mg PO BID@0900,2100 [facility] Metolazone (Zaroxolyn) 5 mg PO QOD [facility] Ondansetron HCl (Zofran Inj) 4 mg IVP Q6 PRN PRN Reason: Nausea/Vomiting Last Admin: 01/31/17 14:22 Dose: 4 mg Prednisone (Prednisone Tab) 40 mg PO DAILY [facility] Last Admin: 02/05/17 09:04 Dose: 40 mg Pyridoxine HCl (Vitamin B6) 100 mg PO DAILY [facility] Last Admin: 02/05/17 09:02 Dose: 100 mg Physical Exam - Respiratory Exam Respiratory Exam: Clear to Auscultation Bilateral, NORMAL BREATHING PATTERN - Cardiovascular Exam Cardiovascular Exam: REGULAR RHYTHM Results - Vital Signs Recent Vital Signs: Last Vital Signs Temp 97.5 F L 02/05/17 09:00 Pulse 80 02/05/17 09:03 Resp 20 02/05/17 09:00 BP 164/82 H 02/05/17 09:03 Pulse Ox 96 02/05/17 09:00 - Labs Result Diagrams: 02/05/17 06:09 02/05/17 06:09 Labs: Laboratory Results - last 24 hr 02/04/17 02/04/17 02/05/17 16:00 23:49 06:09 WBC 7.8 RBC 2.89 L Hgb 8.9 L Hct 27.4 L MCV 94.9 H MCH 30.7 MCHC 32.4 L RDW 14.5 Plt Count 272 MPV 7.5 Neut % (Auto) 76.2 H Lymph % (Auto) 16.3 L Scurry % (Auto) 7.3 Eos % (Auto) 0.0 Baso % (Auto) 0.2 Neut # 5.9 Lymph # 1.3 Scurry # 0.6 Eos # 0.0 Baso # 0.0 PT 11.3 H INR 1.09 H APTT 27.7 52.4 H 52.6 H Sodium 139 Potassium 5.3 H Chloride 108 H Carbon Dioxide 20 L Anion Gap 16 BUN 56 H Creatinine 2.8 H Est GFR ( Amer) 28 Est GFR (Non-Af Amer) 23 Random Glucose 110 Calcium 7.8 L Total Bilirubin 0.2 AST 20 ALT 21 Alkaline Phosphatase 71 Total Protein 5.4 L Albumin 2.5 L Globulin 3.0 Albumin/Globulin Ratio 0.8 L Assessment & Plan (1) Acute on chronic renal failure Status: Acute (2) Elevated brain natriuretic peptide (BNP) level Assessment and Plan: Probably represents an element of CHF Although his EF is 45-50% Would suggest continuing Lasix IV Repeat BNP Status: Chronic (3) Hypertension Status: Chronic Priority: Medium (4) History of ETOH abuse Status: Chronic Priority: Low (5) Tobacco abuse Status: Chronic
--- NOTE | 2017-02-05 14:29 | CP.PCM.PN ---
Subjective - Date & Time of Evaluation Date of Evaluation: 02/05/17 Time of Evaluation: 02:30 - Subjective Subjective: Less son today Objective - Vital Signs/Intake and Output Vital Signs (last 24 hours): Temp Pulse Resp BP Pulse Ox 97.5 F L 81 20 164/81 H 96 02/05/17 09:00 02/05/17 12:54 02/05/17 09:00 02/05/17 12:54 02/05/17 09:00 Intake and Output: 02/05/17 02/05/17 06:59 18:59 Output Total 120 Balance -120 - Medications Medications: Current Medications Albuterol/Ipratropium (Duoneb 3 Mg/0.5 Mg (3 Ml) Ud) 3 ml INH RTID [facility] Last Admin: 02/05/17 11:52 Dose: 3 ml Amlodipine Besylate (Norvasc) 5 mg PO DAILY [facility] Last Admin: 02/05/17 09:02 Dose: 5 mg Citalopram Hydrobromide (Celexa) 20 mg PO DAILY [facility] Last Admin: 02/05/17 09:02 Dose: 20 mg Clonidine HCl (Catapres) 0.3 mg PO TID [facility] Last Admin: 02/05/17 12:54 Dose: 0.3 mg Furosemide (Lasix) 80 mg IV DAILY [facility] Last Admin: 02/05/17 09:02 Dose: 80 mg Hydralazine HCl (Apresoline) 25 mg PO Q6 [facility] Last Admin: 02/05/17 09:03 Dose: 25 mg Levofloxacin/Dextrose (Levaquin 750mg) 150 mls @ 100 mls/hr IVPB QOTHERDAY@ 2100 [facility] Last Admin: 02/03/17 21:43 Dose: 100 mls/hr Ceftriaxone Sodium 1 gm/ (Sodium Chloride) 100 mls @ 100 mls/hr IVPB 2000 [facility] Last Admin: 02/04/17 22:28 Dose: 100 mls/hr Heparin Sodium/Dextrose (Heparin 25,000 Units/250ml In D5w) 250 mls @ 16 mls/ hr IV .[id number] [facility] PRN Reason: Protocol Last Admin: 02/05/17 09:14 Dose: 16 mls/hr Isoniazid (Niazid) 300 mg PO DAILY [facility] Last Admin: 02/05/17 09:02 Dose: 300 mg Labetalol HCl (Trandate) 200 mg PO BID@0900,2100 [facility] Metolazone (Zaroxolyn) 5 mg PO QOD [facility] Ondansetron HCl (Zofran Inj) 4 mg IVP Q6 PRN PRN Reason: Nausea/Vomiting Last Admin: 01/31/17 14:22 Dose: 4 mg Prednisone (Prednisone Tab) 40 mg PO DAILY [facility] Last Admin: 02/05/17 09:04 Dose: 40 mg Pyridoxine HCl (Vitamin B6) 100 mg PO DAILY [facility] Last Admin: 02/05/17 09:02 Dose: 100 mg - Labs Labs: 02/05/17 06:09 02/05/17 06:09 PT 11.3 SECONDS (9.6-11.2) H 02/04/17 16:00 INR 1.09 (0.92-1.08) H 02/04/17 16:00 APTT 54.1 SECONDS (23.3-32.5) H 02/05/17 12:10 - Respiratory Exam Additional comments: Lungs rhonchi - Cardiovascular Exam Cardiovascular Exam: REGULAR RHYTHM - Extremities Exam Additional comments: 3+ b/l pedal edema Assessment and Plan - Assessment and Plan (Free Text) Assessment: 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 Pedal edema persists. Zaroxolyn is added Pneumonia Plan: For bronch tomorrow Kayexalate given. Zaroxolyn will promote kaliuresis & help control K+
--- NOTE | 2017-02-05 14:33 | CP.PCM.PN ---
Subjective - Date & Time of Evaluation Date of Evaluation: 02/05/17 Time of Evaluation: 09:00 - Subjective Subjective: remains afebrile with normal wbc's all afb smears/ cultures from prior admmission are negative cultures all negative thus far and renal function about the same cardiac work up in progress no clearcut infectious etiology at this time Objective - Vital Signs/Intake and Output Vital Signs (last 24 hours): Temp Pulse Resp BP Pulse Ox 97.5 F L 81 20 164/81 H 96 02/05/17 09:00 02/05/17 12:54 02/05/17 09:00 02/05/17 12:54 02/05/17 09:00 Intake and Output: 02/05/17 02/05/17 06:59 18:59 Output Total 120 Balance -120 - Medications Medications: Current Medications Albuterol/Ipratropium (Duoneb 3 Mg/0.5 Mg (3 Ml) Ud) 3 ml INH RTID [facility] Last Admin: 02/05/17 11:52 Dose: 3 ml Amlodipine Besylate (Norvasc) 5 mg PO DAILY [facility] Last Admin: 02/05/17 09:02 Dose: 5 mg Citalopram Hydrobromide (Celexa) 20 mg PO DAILY [facility] Last Admin: 02/05/17 09:02 Dose: 20 mg Clonidine HCl (Catapres) 0.3 mg PO TID [facility] Last Admin: 02/05/17 12:54 Dose: 0.3 mg Furosemide (Lasix) 80 mg IV DAILY [facility] Last Admin: 02/05/17 09:02 Dose: 80 mg Hydralazine HCl (Apresoline) 25 mg PO Q6 [facility] Last Admin: 02/05/17 09:03 Dose: 25 mg Levofloxacin/Dextrose (Levaquin 750mg) 150 mls @ 100 mls/hr IVPB QOTHERDAY@ 2100 [facility] Last Admin: 02/03/17 21:43 Dose: 100 mls/hr Ceftriaxone Sodium 1 gm/ (Sodium Chloride) 100 mls @ 100 mls/hr IVPB 2000 [facility] Last Admin: 02/04/17 22:28 Dose: 100 mls/hr Heparin Sodium/Dextrose (Heparin 25,000 Units/250ml In D5w) 250 mls @ 16 mls/ hr IV .[id number] [facility] PRN Reason: Protocol Last Admin: 02/05/17 09:14 Dose: 16 mls/hr Isoniazid (Niazid) 300 mg PO DAILY [facility] Last Admin: 02/05/17 09:02 Dose: 300 mg Labetalol HCl (Trandate) 200 mg PO BID@0900,2100 [facility] Metolazone (Zaroxolyn) 5 mg PO QOD [facility] Ondansetron HCl (Zofran Inj) 4 mg IVP Q6 PRN PRN Reason: Nausea/Vomiting Last Admin: 01/31/17 14:22 Dose: 4 mg Prednisone (Prednisone Tab) 40 mg PO DAILY [facility] Last Admin: 02/05/17 09:04 Dose: 40 mg Pyridoxine HCl (Vitamin B6) 100 mg PO DAILY [facility] Last Admin: 02/05/17 09:02 Dose: 100 mg - Labs Labs: 02/05/17 06:09 02/05/17 06:09 PT 11.3 SECONDS (9.6-11.2) H 02/04/17 16:00 INR 1.09 (0.92-1.08) H 02/04/17 16:00 APTT 54.1 SECONDS (23.3-32.5) H 02/05/17 12:10 - Constitutional Appears: Non-toxic, Cachectic, Chronically Ill - Head Exam Head Exam: NORMOCEPHALIC - Eye Exam Eye Exam: absent: Scleral icterus - ENT Exam ENT Exam: Mucous Membranes Dry, Normal External Ear Exam - Neck Exam Neck Exam: absent: Lymphadenopathy - Respiratory Exam Respiratory Exam: Decreased Breath Sounds, Rales, Rhonchi - Cardiovascular Exam Cardiovascular Exam: REGULAR RHYTHM, +S1, +S2 - GI/Abdominal Exam GI & Abdominal Exam: Distended, Soft. absent: Tenderness - Rectal Exam Rectal Exam: Deferred - Exam Exam: NORMAL INSPECTION - Extremities Exam Extremities Exam: absent: Pedal Edema Assessment and Plan (1) ANCA-associated vasculitis Status: Chronic (2) Acute on chronic renal failure Status: Acute (3) Anasarca Status: Acute - Assessment and Plan (Free Text) Assessment: poor prognosis
[2017-02-06] MEDS ORDERED: Propofol 10 mg/ml Inj (20 ML) ONE (07:03)
[2017-02-06] MEDS ORDERED: Midazolam 2 MG/2 ML VIAL ONE (07:03)
[2017-02-06] MEDS ORDERED: Ketamine 50 mg/ml Inj (10 ml) ONE (07:03)
[2017-02-06] MEDS ORDERED: Succinylcholine 200 mg/10 ml Inj IV ONE (07:17)
[2017-02-06 07:28] LABS: HEMATOCRIT 26.2 % (35.0-51.0); MEAN CELL VOLUME 93.1 fl (80.0-94.0); MEAN CORPUSCULAR HEMOGLOBIN 31.4 pg (27.0-31.0); MEAN CORPUSCULAR HGB CONC 33.8 g/dL (33.0-37.0); RED CELL DISTRIBUTION WIDTH 14.2 % (11.5-14.5); WHITE BLOOD COUNT 8.6 K/uL (4.8-10.8)
[2017-02-06] MEDS ORDERED: Lidocaine 2% Jelly (5 ml) TOP ONE ×2 (07:31→07:53)
[2017-02-06] MEDS ORDERED: Lidocaine 1% Inj (20ml) ONE (07:31)
[2017-02-06] MEDS ORDERED: Sodium Chloride 0.9% 250 ML IV ONE ×3 (07:45→08:20)
[2017-02-06 07:49] LABS: ALB/GLOB RATIO 0.8 (1.0-2.1); BILIRUBIN,TOTAL 0.2 mg/dl (0.2-1.3); CALCIUM 7.7 mg/dL (8.4-10.2); POTASSIUM 5.4 MMOL/L (3.6-5.0); TOTAL PROTEIN 5.3 G/DL (6.3-8.2)
[2017-02-06] MEDS ORDERED: Lidocaine 1% Inj (20ml) TP ONE (07:53)
[2017-02-06] MEDS: Albuterol-Ipratrop 3 mg / 0.5 (3 ml) UD INH SCH ×4 (08:58→19:12)
--- NOTE | 2017-02-06 09:20 | CP.PCM.PN ---
Subjective - Date & Time of Evaluation Date of Evaluation: 02/06/17 Time of Evaluation: 07:00 - Subjective Subjective: pt seen and examined at bedside this morning. Pt had an uneventful overnight. Currently lying in bed on NC, in NAD. Reports slight improvement in SOB from the weekend. Denies improvement in pedal edema. Reports improvement in right arm pain and edema. Has no other complaints. OOB/ambulating without dizziness. Weight today remains at 189lbs. Denies fever/chills, headaches, changes in vision, chest pain, palpitations, N/V/D/C, bleeding episodes, urinary symptoms, leg pain. Objective - Vital Signs/Intake and Output Vital Signs (last 24 hours): Temp Pulse Resp BP Pulse Ox 97.8 F 78 20 156/82 H 99 02/06/17 08:20 02/06/17 09:05 02/06/17 09:05 02/06/17 09:05 02/06/17 09:05 Intake and Output: 02/06/17 02/06/17 06:59 18:59 Intake Total 300 Output Total 300 Balance -300 300 - Medications Medications: Current Medications Albuterol/Ipratropium (Duoneb 3 Mg/0.5 Mg (3 Ml) Ud) 3 ml INH RQID [facility] Amlodipine Besylate (Norvasc) 5 mg PO DAILY [facility] Last Admin: 02/05/17 09:02 Dose: 5 mg Citalopram Hydrobromide (Celexa) 20 mg PO DAILY [facility] Last Admin: 02/05/17 09:02 Dose: 20 mg Clonidine HCl (Catapres) 0.3 mg PO TID [facility] Last Admin: 02/05/17 17:26 Dose: 0.3 mg Furosemide (Lasix) 80 mg IV BID [facility] Hydralazine HCl (Apresoline) 25 mg PO Q6 [facility] Last Admin: 02/06/17 05:21 Dose: 25 mg Levofloxacin/Dextrose (Levaquin 750mg) 150 mls @ 100 mls/hr IVPB QOTHERDAY@ 2100 [facility] Last Admin: 02/05/17 23:15 Dose: 100 mls/hr Ceftriaxone Sodium 1 gm/ (Sodium Chloride) 100 mls @ 100 mls/hr IVPB 2000 [facility] Last Admin: 02/05/17 22:16 Dose: 100 mls/hr Isoniazid (Niazid) 300 mg PO DAILY [facility] Last Admin: 02/05/17 09:02 Dose: 300 mg Labetalol HCl (Trandate) 200 mg PO BID@0900,2100 [facility] Metolazone (Zaroxolyn) 5 mg PO QOD [facility] Ondansetron HCl (Zofran Inj) 4 mg IVP Q6 PRN PRN Reason: Nausea/Vomiting Last Admin: 01/31/17 14:22 Dose: 4 mg Prednisone (Prednisone Tab) 40 mg PO DAILY [facility] Last Admin: 02/05/17 09:04 Dose: 40 mg Pyridoxine HCl (Vitamin B6) 100 mg PO DAILY [facility] Last Admin: 02/05/17 09:02 Dose: 100 mg - Labs Labs: 02/06/17 06:30 02/06/17 06:30 PT 11.3 SECONDS (9.6-11.2) H 02/04/17 16:00 INR 1.09 (0.92-1.08) H 02/04/17 16:00 APTT 42.3 SECONDS (23.3-32.5) H 02/05/17 18:30 - Constitutional Appears: Non-toxic, No Acute Distress - Eye Exam Eye Exam: EOMI Pupil Exam: PERRL - ENT Exam ENT Exam: Mucous Membranes Moist - Respiratory Exam Respiratory Exam: Rales, Wheezes. absent: Accessory Muscle Use, Chest Wall Tenderness, Respiratory Distress Additional comments: bibasilar rales, diffuse wheezing. No change in lung sounds from Monday's examination. - Cardiovascular Exam Cardiovascular Exam: REGULAR RHYTHM, RRR, +S1, +S2. absent: Gallop, JVD, Rubs, Murmur - GI/Abdominal Exam GI & Abdominal Exam: Soft, Normal Bowel Sounds. absent: Guarding, Rigid, Tenderness, Rebound - Extremities Exam Extremities Exam: Pedal Edema. 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 Kapoor. -Nephrology consult as per Dr. Sandoval: Suggests prednisione, low K diet. Cyclophosphamide held due to multiple lung infiltrates on CT, recommends increasing Lasix dosage to 80mg IV BID. -right upper Ext Doppler US 02/03 showed possible thrombus formation surrounding PICC line in axillary vein -restarted on Heparin 25,000 units at 16mls/hr -follow PTT q6 hours -f/u right extremity U/S ordered for tomorrow AM. 3) HCAP -Recent discharge from hospital 01/13 -Afebrile -CXR: right upper lobe pneumonia. mild left pleural effusion. -Levofloxacin 750 mg Q48 h renal dosage -Rocephin 1 g IV daily -Isolation. droplet precaution -Bronchoscopy performed on 02/06, samples were obtained for culture. 4) Hypertension, uncontrolled - secondary to glomerulopathy -c/w hydralazine, amlodipine, clonidine -hold labetolol d/t CHF exacerbation 5) Latent TB -c/w INH and vitamin B6 supplementation -AFB sputum 6) Hyperkalemia -secondary to renal failure -K 5.4 -kayexalate ordered by Dr. Kapoor -follow BMPs 7) Anemia, chronic -secondary to CKD -hgb: 8.9 -Hem-Onc consult: hold cyclophosphamide -F/U H/H 8) Depression -Celexa 9) DVT prophylaxis -restarted on Heparin 25,000 units at 16mls/hr, will follow PTT every 6 hours and base treatment on normogram.
--- NOTE | 2017-02-06 09:26 | RAD ---
HISTORY: post bronchoscopy COMPARISON: Comparison is made to the previous study dated 01/28/2017 FINDINGS: LUNGS: Interval improvement in the previously seen heterogeneous opacity at the right upper lobe. Mild pulmonary vascular congestion. PLEURA: Blunting of the left costophrenic angle suggestive of small pleural effusion. CARDIOVASCULAR: The cardiac silhouette is prominent in size. OSSEOUS STRUCTURES: No significant abnormalities. VISUALIZED UPPER ABDOMEN: Normal. OTHER FINDINGS: None. IMPRESSION: Interval improvement in the right upper lobe. Left pleural effusion. No evidence of pneumothorax.
[2017-02-06] MEDS: Pyridoxine 100 mg Tab PO SCH (11:14)
[2017-02-06] MEDS ORDERED: Heparin 25,000units in D5W 250 ML IV SCH ×2 (13:00→20:30)
--- NOTE | 2017-02-06 13:24 | CP.PCM.PN ---
Subjective - Date & Time of Evaluation Date of Evaluation: 02/06/17 Time of Evaluation: 01:00 - Subjective Subjective: comfortable in bed. Objective - Vital Signs/Intake and Output Vital Signs (last 24 hours): Temp Pulse Resp BP Pulse Ox 97.4 F L 84 18 141/72 96 02/06/17 12:16 02/06/17 12:16 02/06/17 12:16 02/06/17 12:16 02/06/17 12:16 Intake and Output: 02/06/17 02/06/17 06:59 18:59 Intake Total 400 Output Total 300 Balance -300 400 - Medications Medications: Current Medications Albuterol/Ipratropium (Duoneb 3 Mg/0.5 Mg (3 Ml) Ud) 3 ml INH RQID [facility] Amlodipine Besylate (Norvasc) 5 mg PO DAILY [facility] Last Admin: 02/06/17 11:10 Dose: 5 mg Citalopram Hydrobromide (Celexa) 20 mg PO DAILY [facility] Last Admin: 02/06/17 11:06 Dose: 20 mg Clonidine HCl (Catapres) 0.3 mg PO TID [facility] Last Admin: 02/06/17 11:12 Dose: 0.3 mg Furosemide (Lasix) 80 mg IV BID [facility] Hydralazine HCl (Apresoline) 25 mg PO Q6 [facility] Last Admin: 02/06/17 11:11 Dose: 25 mg Levofloxacin/Dextrose (Levaquin 750mg) 150 mls @ 100 mls/hr IVPB QOTHERDAY@ 2100 [facility] Last Admin: 02/05/17 23:15 Dose: 100 mls/hr Ceftriaxone Sodium 1 gm/ (Sodium Chloride) 100 mls @ 100 mls/hr IVPB 2000 [facility] Last Admin: 02/05/17 22:16 Dose: 100 mls/hr Heparin Sodium/Dextrose (Heparin 25,000 Units/250ml In D5w) 250 mls @ 16 mls/ hr IV .[id number] [facility] PRN Reason: Protocol Isoniazid (Niazid) 300 mg PO DAILY [facility] Last Admin: 02/06/17 11:07 Dose: 300 mg Labetalol HCl (Trandate) 200 mg PO BID@0900,2100 [facility] Metolazone (Zaroxolyn) 5 mg PO QOD [facility] Ondansetron HCl (Zofran Inj) 4 mg IVP Q6 PRN PRN Reason: Nausea/Vomiting Last Admin: 01/31/17 14:22 Dose: 4 mg Prednisone (Prednisone Tab) 40 mg PO DAILY [facility] Last Admin: 02/06/17 11:15 Dose: 40 mg Pyridoxine HCl (Vitamin B6) 100 mg PO DAILY [facility] Last Admin: 02/06/17 11:14 Dose: 100 mg - Labs Labs: 02/06/17 06:30 02/06/17 06:30 PT 11.3 SECONDS (9.6-11.2) H 02/04/17 16:00 INR 1.09 (0.92-1.08) H 02/04/17 16:00 APTT 42.3 SECONDS (23.3-32.5) H 02/05/17 18:30 - Respiratory Exam Respiratory Exam: Rhonchi, NORMAL BREATHING PATTERN - Cardiovascular Exam Cardiovascular Exam: REGULAR RHYTHM - Extremities Exam Extremities Exam: Pedal Edema Additional comments: Some decrease in pedal edema Assessment and Plan - Assessment and Plan (Free Text) Assessment: Crescentic GN ( pauci immune) Creat is stable Hyperkalemia Pneumonia Rt lung) Plan: Kayexalate ordered Continue with Lasix & Metolazone
[2017-02-06] MEDS ORDERED: Sod Polystyrene Sulf 15 gm/60 ml Oral Susp PO ONE (13:29)
[2017-02-07 02:03] LABS: PARTIAL THROMBOPLASTIN TIME 93.4 SECONDS (23.3-32.5)
[2017-02-07] MEDS ORDERED: Heparin 25,000units in D5W 250 ML IV SCH (02:15)
[2017-02-07 07:06] LABS: HEMATOCRIT 26.8 % (35.0-51.0); MEAN CELL VOLUME 93.8 fl (80.0-94.0); MEAN CORPUSCULAR HEMOGLOBIN 30.7 pg (27.0-31.0); MEAN CORPUSCULAR HGB CONC 32.7 g/dL (33.0-37.0); RED CELL DISTRIBUTION WIDTH 14.4 % (11.5-14.5); WHITE BLOOD COUNT 10.4 K/uL (4.8-10.8)
[2017-02-07 07:24] LABS: CALCIUM 7.5 mg/dL (8.4-10.2); POTASSIUM 4.3 MMOL/L (3.6-5.0)
[2017-02-07 07:51] LABS: PARTIAL THROMBOPLASTIN TIME 76.3 SECONDS (23.3-32.5)
[2017-02-07] MEDS: Albuterol-Ipratrop 3 mg / 0.5 (3 ml) UD INH SCH ×4 (07:58→19:26)
--- NOTE | 2017-02-07 09:18 | CP.PCM.PN ---
Subjective - Date & Time of Evaluation Date of Evaluation: 02/07/17 Time of Evaluation: 07:30 - Subjective Subjective: pt seen and examined at bedside. Pt had an uneventful overnight. Currently sitting in bed upright in NAD. Pt reports substantial improvement in SOB symptoms since yesterday. Reports he feels like he can breath more comfortably. Able to speak in complete sentences without dyspnea. Reports one episode of epistaxis while sneezing earlier this morning that resolved without further bleeding. Denies any other bleeding such as hematuria, melena, hematochezia, hemoptysis, gingival bleed. Still complains of bilateral lower extremity edema but feels there maybe minor improvement. Has no other complaints. Denies fever/ chills, headaches, changes in vision, CP/SOB, N/V/D/C, urinary symptoms, numbness/tingling. Objective - Vital Signs/Intake and Output Vital Signs (last 24 hours): Temp Pulse Resp BP Pulse Ox 97.9 F 70 18 171/84 H 95 02/07/17 08:00 02/07/17 08:00 02/07/17 08:00 02/07/17 08:00 02/07/17 08:00 - Medications Medications: Current Medications Albuterol/Ipratropium (Duoneb 3 Mg/0.5 Mg (3 Ml) Ud) 3 ml INH RQID [facility] Last Admin: 02/07/17 07:58 Dose: Not Given Amlodipine Besylate (Norvasc) 5 mg PO DAILY [facility] Last Admin: 02/06/17 11:10 Dose: 5 mg Citalopram Hydrobromide (Celexa) 20 mg PO DAILY [facility] Last Admin: 02/06/17 11:06 Dose: 20 mg Clonidine HCl (Catapres) 0.3 mg PO TID [facility] Last Admin: 02/06/17 16:19 Dose: 0.3 mg Furosemide (Lasix) 80 mg IV BID [facility] Last Admin: 02/06/17 16:20 Dose: 80 mg Hydralazine HCl (Apresoline) 25 mg PO Q6 [facility] Last Admin: 02/07/17 04:07 Dose: 25 mg Levofloxacin/Dextrose (Levaquin 750mg) 150 mls @ 100 mls/hr IVPB QOTHERDAY@ 2100 [facility] Last Admin: 02/05/17 23:15 Dose: 100 mls/hr Ceftriaxone Sodium 1 gm/ (Sodium Chloride) 100 mls @ 100 mls/hr IVPB 2000 [facility] Last Admin: 02/06/17 20:30 Dose: 100 mls/hr Heparin Sodium/Dextrose (Heparin 25,000 Units/250ml In D5w) 250 mls @ 15.5 mls/ hr IV .Q16H8M [facility] PRN Reason: Protocol Isoniazid (Niazid) 300 mg PO DAILY [facility] Last Admin: 02/06/17 11:07 Dose: 300 mg Labetalol HCl (Trandate) 200 mg PO BID@0900,2100 [facility] Metolazone (Zaroxolyn) 5 mg PO QOD [facility] Ondansetron HCl (Zofran Inj) 4 mg IVP Q6 PRN PRN Reason: Nausea/Vomiting Last Admin: 01/31/17 14:22 Dose: 4 mg Prednisone (Prednisone Tab) 40 mg PO DAILY [facility] Last Admin: 02/06/17 11:15 Dose: 40 mg Pyridoxine HCl (Vitamin B6) 100 mg PO DAILY [facility] Last Admin: 02/06/17 11:14 Dose: 100 mg - Labs Labs: 02/07/17 06:40 02/07/17 06:45 PT 12.0 SECONDS (9.6-11.2) H 02/07/17 06:45 INR 1.15 (0.92-1.08) H 02/07/17 06:45 APTT 76.3 SECONDS (23.3-32.5) H* D 02/07/17 06:45 - Constitutional Appears: Non-toxic, No Acute Distress - Eye Exam Eye Exam: EOMI. absent: Conjunctival injection, Periorbital swelling, Scleral icterus Pupil Exam: PERRL - ENT Exam ENT Exam: Mucous Membranes Moist - Respiratory Exam Respiratory Exam: Rales, Wheezes, NORMAL BREATHING PATTERN. absent: Accessory Muscle Use, Chest Wall Tenderness, Respiratory Distress Additional comments: improved lung sounds today. Minor wheezes and rales still appreciated on exam. No accessory muscle use. Pt able to speak in complete sentences. - Cardiovascular Exam Cardiovascular Exam: REGULAR RHYTHM, RRR, +S1, +S2. absent: Gallop, JVD, Rubs, Murmur - GI/Abdominal Exam GI & Abdominal Exam: Soft, Normal Bowel Sounds. absent: Guarding, Rigid, Tenderness, Rebound - Extremities Exam Extremities Exam: Pedal Edema Additional comments: 2+ pitting bilaterally. Minor erythema bilaterally on RLE and LLE. No tenderness. 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 Kapoor. -Nephrology consult as per Dr. Sandoval: Suggests prednisione, low K diet. Cyclophosphamide held due to multiple lung infiltrates on CT, recommends increasing Lasix dosage to 80mg IV BID. -right upper Ext Doppler US 02/03 showed: possible thrombus formation surrounding PICC line in axillary vein -Follow up right upper ext doppler: nonocclusive thrombus in distal axillary vein, occulsive thrombus in the basilic vein with a PICC line in place -Heparin continued, may consider removing PICC line and using peripheral line instead. 3) HCAP -Recent discharge from hospital 01/13 -Afebrile -CXR: right upper lobe pneumonia. mild left pleural effusion. -Abx day #8 -Levofloxacin 750 mg Q48 h renal dosage -Rocephin 1 g IV daily -Isolation: droplet precaution -Bronchoscopy performed on 02/06, samples were obtained for culture. -Post Bronchoscopy CXR: interval improvement in right upper lobe infiltrate. No pneumothorax. 4) Hypertension, uncontrolled - secondary to glomerulopathy -c/w hydralazine, amlodipine, clonidine -hold labetolol d/t CHF exacerbation 5) Latent TB -c/w INH and vitamin B6 supplementation -AFB sputum, cytology with PAS staining requested as per Dr. Mayes. 6) Hyperkalemia (resolved) -secondary to renal failure -K 4.3 -follow BMPs 7) Anemia, chronic -secondary to CKD -hgb: 8.8 -Hem-Onc consult: hold cyclophosphamide -F/U H/H 8) Depression -Celexa 9) DVT prophylaxis -last PTT 76.3, heparin adjusted as per normogram -PTT check q6 hours, next check @ 13:00 -Heparin 25,000 units at 15.5mls/hr 10) Pt prefers brother Brady as Power of insurance defense attorney -Contact for Brady is [phone]
[2017-02-07] MEDS: Pyridoxine 100 mg Tab PO SCH (09:32)
--- NOTE | 2017-02-07 09:40 | US ---
PROCEDURE: Upper Extremity Venous Duplex Exam HISTORY: f/u thrombus formation PRIORS: None. TECHNIQUE: Bilateral upper extremity, internal jugular, subclavian, axillary, brachial, ulnar, radial, basilic and upper cephalic veins were evaluated. Flow was assessed with color Doppler, compressibility, assessment of phasic flow and augmentation response. Report prepared by vascular technician. FINDINGS: RIGHT: 1. Internal Jugular: 1.1. Compressibility - Fully compressible: Thrombus - None : Flow - Phasic: Augmentation -Normal: Reflux - None. 2. Subclavian: 2.1. Compressibility - Fully compressible: Thrombus - None : Flow - Phasic: Augmentation -Normal: Reflux - None. 3. Axillary: 3.1. There is a nonocclusive thrombus in the distal axillary vein with partial loss of compressibility and color flow.. 4. Brachial: 4.1. Compressibility - Fully compressible: Thrombus - None: Flow - Phasic: Augmentation -Normal: Reflux - None. 5. Ulnar: 5.1. Compressibility - Fully compressible: Thrombus - None: Flow - Phasic: Augmentation -Normal: Reflux - None. 6. Radial: 6.1. Compressibility - Fully compressible: Thrombus - None: Flow - Phasic: Augmentation - Normal: Reflux - None. 7. Cephalic: 7.1. Compressibility - Fully compressible: Thrombus - None: Flow - Phasic: Augmentation -Normal: Reflux - None. 8. Basilic: 8.1. There is a PICC line in the basilic vein and an occlusive thrombus with loss of compressibility and color flow. OTHER FINDINGS: Right: There is diffuse subcutaneous edema in the forearm. IMPRESSION: 1. Nonocclusive thrombus in the distal axillary vein. 2. Occlusive thrombus in the basilic vein with a PICC line in place.
[2017-02-07] MEDS: Heparin 25,000units in D5W 250 ML IV SCH (09:50)
--- NOTE | 2017-02-07 10:42 | CP.PCM.PN ---
Subjective - Date & Time of Evaluation Date of Evaluation: 02/07/17 Time of Evaluation: 10:39 - Subjective Subjective: Vital signs have been stable. No febrile spike post-bronchoscopy. Oxygenation remains okay. Had some bloody secretions from the nose, but no hemoptysis. Post-bronch CXR shows interval improvement in the RUL infiltrate. Awaiting cytology (with PAS staining requested) and cultures (inclusive of AFB). Objective - Vital Signs/Intake and Output Vital Signs (last 24 hours): Temp Pulse Resp BP Pulse Ox 97.9 F 70 18 171/84 H 95 02/07/17 08:00 02/07/17 09:33 02/07/17 08:00 02/07/17 09:36 02/07/17 08:00 - Medications Medications: Current Medications Albuterol/Ipratropium (Duoneb 3 Mg/0.5 Mg (3 Ml) Ud) 3 ml INH RQID [facility] Last Admin: 02/07/17 07:58 Dose: Not Given Amlodipine Besylate (Norvasc) 5 mg PO DAILY [facility] Last Admin: 02/07/17 09:32 Dose: 5 mg Citalopram Hydrobromide (Celexa) 20 mg PO DAILY [facility] Last Admin: 02/07/17 09:32 Dose: 20 mg Clonidine HCl (Catapres) 0.3 mg PO TID [facility] Last Admin: 02/07/17 09:33 Dose: 0.3 mg Furosemide (Lasix) 80 mg IV BID [facility] Last Admin: 02/07/17 09:36 Dose: 80 mg Hydralazine HCl (Apresoline) 25 mg PO Q6 [facility] Last Admin: 02/07/17 09:32 Dose: 25 mg Levofloxacin/Dextrose (Levaquin 750mg) 150 mls @ 100 mls/hr IVPB QOTHERDAY@ 2100 [facility] Last Admin: 02/05/17 23:15 Dose: 100 mls/hr Ceftriaxone Sodium 1 gm/ (Sodium Chloride) 100 mls @ 100 mls/hr IVPB 2000 [facility] Last Admin: 02/06/17 20:30 Dose: 100 mls/hr Heparin Sodium/Dextrose (Heparin 25,000 Units/250ml In D5w) 250 mls @ 15.5 mls/ hr IV .Q16H8M [facility] PRN Reason: Protocol Last Admin: 02/07/17 09:50 Dose: 15.5 mls/hr Isoniazid (Niazid) 300 mg PO DAILY [facility] Last Admin: 02/07/17 09:32 Dose: 300 mg Labetalol HCl (Trandate) 200 mg PO BID@0900,2100 [facility] Metolazone (Zaroxolyn) 5 mg PO QOD [facility] Last Admin: 02/07/17 09:32 Dose: 5 mg Ondansetron HCl (Zofran Inj) 4 mg IVP Q6 PRN PRN Reason: Nausea/Vomiting Last Admin: 01/31/17 14:22 Dose: 4 mg Prednisone (Prednisone Tab) 40 mg PO DAILY [facility] Last Admin: 02/07/17 09:37 Dose: 40 mg Pyridoxine HCl (Vitamin B6) 100 mg PO DAILY [facility] Last Admin: 02/07/17 09:32 Dose: 100 mg - Labs Labs: 02/07/17 06:40 02/07/17 06:45 PT 12.0 SECONDS (9.6-11.2) H 02/07/17 06:45 INR 1.15 (0.92-1.08) H 02/07/17 06:45 APTT 76.3 SECONDS (23.3-32.5) H* D 02/07/17 06:45 Assessment and Plan (1) ANCA-associated vasculitis Status: Chronic (2) Pneumonia Status: Acute (3) Pleural effusion Status: Acute
--- NOTE | 2017-02-07 10:58 | CP.PCM.PN ---
Subjective - Date & Time of Evaluation Date of Evaluation: 02/07/17 Time of Evaluation: 10:20 - Subjective Subjective: Feels less SOB today Objective - Vital Signs/Intake and Output Vital Signs (last 24 hours): Temp Pulse Resp BP Pulse Ox 97.9 F 70 18 171/84 H 95 02/07/17 08:00 02/07/17 09:33 02/07/17 08:00 02/07/17 09:36 02/07/17 08:00 - Medications Medications: Current Medications Albuterol/Ipratropium (Duoneb 3 Mg/0.5 Mg (3 Ml) Ud) 3 ml INH RQID [facility] Last Admin: 02/07/17 07:58 Dose: Not Given Amlodipine Besylate (Norvasc) 5 mg PO DAILY [facility] Last Admin: 02/07/17 09:32 Dose: 5 mg Citalopram Hydrobromide (Celexa) 20 mg PO DAILY [facility] Last Admin: 02/07/17 09:32 Dose: 20 mg Clonidine HCl (Catapres) 0.3 mg PO TID [facility] Last Admin: 02/07/17 09:33 Dose: 0.3 mg Furosemide (Lasix) 80 mg IV BID [facility] Last Admin: 02/07/17 09:36 Dose: 80 mg Hydralazine HCl (Apresoline) 25 mg PO Q6 [facility] Last Admin: 02/07/17 09:32 Dose: 25 mg Levofloxacin/Dextrose (Levaquin 750mg) 150 mls @ 100 mls/hr IVPB QOTHERDAY@ 2100 [facility] Last Admin: 02/05/17 23:15 Dose: 100 mls/hr Ceftriaxone Sodium 1 gm/ (Sodium Chloride) 100 mls @ 100 mls/hr IVPB 2000 [facility] Last Admin: 02/06/17 20:30 Dose: 100 mls/hr Heparin Sodium/Dextrose (Heparin 25,000 Units/250ml In D5w) 250 mls @ 15.5 mls/ hr IV .Q16H8M [facility] PRN Reason: Protocol Last Admin: 02/07/17 09:50 Dose: 15.5 mls/hr Isoniazid (Niazid) 300 mg PO DAILY [facility] Last Admin: 02/07/17 09:32 Dose: 300 mg Labetalol HCl (Trandate) 200 mg PO BID@0900,2100 [facility] Metolazone (Zaroxolyn) 5 mg PO QOD [facility] Last Admin: 02/07/17 09:32 Dose: 5 mg Ondansetron HCl (Zofran Inj) 4 mg IVP Q6 PRN PRN Reason: Nausea/Vomiting Last Admin: 01/31/17 14:22 Dose: 4 mg Prednisone (Prednisone Tab) 40 mg PO DAILY [facility] Last Admin: 02/07/17 09:37 Dose: 40 mg Pyridoxine HCl (Vitamin B6) 100 mg PO DAILY [facility] Last Admin: 02/07/17 09:32 Dose: 100 mg - Labs Labs: 02/07/17 06:40 02/07/17 06:45 PT 12.0 SECONDS (9.6-11.2) H 02/07/17 06:45 INR 1.15 (0.92-1.08) H 02/07/17 06:45 APTT 76.3 SECONDS (23.3-32.5) H* D 02/07/17 06:45 - Respiratory Exam Additional comments: B/L rhonchi - Cardiovascular Exam Cardiovascular Exam: REGULAR RHYTHM - Extremities Exam Additional comments: Remain edematous Assessment and Plan - Assessment and Plan (Free Text) Assessment: Pauci immune crescentic GN, Creat is stable CHF Pneumonia S/P bronchoscopy Rt arm DVT on anticoagulation Plan: Continue with Lasix & diuretics. K+ is controlled
--- NOTE | 2017-02-07 21:55 | CP.PCM.PN ---
Subjective - Date & Time of Evaluation Date of Evaluation: 02/07/17 Time of Evaluation: 15:00 - Subjective Subjective: Appears comfortable Objective - Vital Signs/Intake and Output Vital Signs (last 24 hours): Temp Pulse Resp BP Pulse Ox 98.0 F 97 H 20 155/78 H 96 02/07/17 15:44 02/07/17 21:51 02/07/17 15:44 02/07/17 21:51 02/07/17 15:44 Intake and Output: 02/07/17 02/08/17 18:59 06:59 Intake Total 600 Balance 600 - Medications Medications: Current Medications Albuterol/Ipratropium (Duoneb 3 Mg/0.5 Mg (3 Ml) Ud) 3 ml INH RQID [facility] Last Admin: 02/07/17 19:26 Dose: 3 ml Amlodipine Besylate (Norvasc) 5 mg PO DAILY [facility] Last Admin: 02/07/17 09:32 Dose: 5 mg Citalopram Hydrobromide (Celexa) 20 mg PO DAILY [facility] Last Admin: 02/07/17 09:32 Dose: 20 mg Clonidine HCl (Catapres) 0.3 mg PO TID [facility] Last Admin: 02/07/17 16:28 Dose: 0.3 mg Furosemide (Lasix) 80 mg IV BID [facility] Last Admin: 02/07/17 18:19 Dose: 80 mg Hydralazine HCl (Apresoline) 25 mg PO Q6 [facility] Last Admin: 02/07/17 21:51 Dose: 25 mg Levofloxacin/Dextrose (Levaquin 750mg) 150 mls @ 100 mls/hr IVPB QOTHERDAY@ 2100 [facility] Last Admin: 02/05/17 23:15 Dose: 100 mls/hr Ceftriaxone Sodium 1 gm/ (Sodium Chloride) 100 mls @ 100 mls/hr IVPB 2000 [facility] Last Admin: 02/06/17 20:30 Dose: 100 mls/hr Heparin Sodium/Dextrose (Heparin 25,000 Units/250ml In D5w) 250 mls @ 15.5 mls/ hr IV .[id number] [facility] PRN Reason: Protocol Last Admin: 02/07/17 09:50 Dose: 15.5 mls/hr Isoniazid (Niazid) 300 mg PO DAILY [facility] Last Admin: 02/07/17 09:32 Dose: 300 mg Labetalol HCl (Trandate) 200 mg PO BID@0900,2100 [facility] Metolazone (Zaroxolyn) 5 mg PO QOD [facility] Last Admin: 02/07/17 09:32 Dose: 5 mg Ondansetron HCl (Zofran Inj) 4 mg IVP Q6 PRN PRN Reason: Nausea/Vomiting Last Admin: 01/31/17 14:22 Dose: 4 mg Prednisone (Prednisone Tab) 40 mg PO DAILY [facility] Last Admin: 02/07/17 09:37 Dose: 40 mg Pyridoxine HCl (Vitamin B6) 100 mg PO DAILY [facility] Last Admin: 02/07/17 09:32 Dose: 100 mg - Labs Labs: 02/07/17 06:40 02/07/17 06:45 PT 12.0 SECONDS (9.6-11.2) H 02/07/17 06:45 INR 1.15 (0.92-1.08) H 02/07/17 06:45 APTT 54.4 SECONDS (23.3-32.5) H 02/07/17 20:20 - Head Exam Head Exam: ATRAUMATIC - Eye Exam Eye Exam: Normal appearance - ENT Exam ENT Exam: Mucous Membranes Dry - Respiratory Exam Respiratory Exam: NORMAL BREATHING PATTERN - Cardiovascular Exam Cardiovascular Exam: +S1, +S2 - GI/Abdominal Exam GI & Abdominal Exam: Normal Bowel Sounds - Extremities Exam Extremities Exam: Normal Inspection Assessment and Plan (1) DVT (deep venous thrombosis) Assessment & Plan: PICC line related agree with therapeutic anticoagulation ultimately PICC line will need to be removed but if pt is to be treated with Cytoxan in the next few days, would wait until this is infused before pulling the patient will ultimately require 3 months of therapeutic anticoagulation given the axillary DVT. Status: Acute (2) ANCA-associated vasculitis Assessment & Plan: per renal Status: Chronic (3) Anemia Assessment & Plan: chronic disease, renal disease Status: Acute
[2017-02-08] MEDS: Heparin 25,000units in D5W 250 ML IV SCH ×3 (00:19→17:14)
[2017-02-08 03:24] LABS: PARTIAL THROMBOPLASTIN TIME 36.5 SECONDS (23.3-32.5)
[2017-02-08] MEDS: Albuterol-Ipratrop 3 mg / 0.5 (3 ml) UD INH SCH ×4 (08:05→19:06)
--- NOTE | 2017-02-08 08:37 | CP.PCM.PN ---
Subjective - Date & Time of Evaluation Date of Evaluation: 02/08/17 Time of Evaluation: 08:35 - Subjective Subjective: pt seen and examined at bedside this morning. Pt had no acute events overnight. Pt lying upright in bed in NAD. Reports one episode of hemoptysis (blood streaked sputum) last night. Denies worsening SOB. Denies improvement in pedal edema. Denies right arm pain/numbness/tingling. No other complaints. OOB/ ambulating without dizziness. Denies fever/chills, headaches, changes in vision , CP/SOB/Palpitations, N/V/D/C, epistaxis, gingival hemorrhage, hematemesis, melena, hematochezia, hematuria. Objective - Vital Signs/Intake and Output Vital Signs (last 24 hours): Temp Pulse Resp BP Pulse Ox 97.6 F 67 20 143/81 96 02/08/17 08:03 02/08/17 08:03 02/08/17 08:03 02/08/17 08:03 02/08/17 08:03 - Medications Medications: Current Medications Albuterol/Ipratropium (Duoneb 3 Mg/0.5 Mg (3 Ml) Ud) 3 ml INH RQID [facility] Last Admin: 02/08/17 08:05 Dose: 3 ml Amlodipine Besylate (Norvasc) 5 mg PO DAILY [facility] Last Admin: 02/07/17 09:32 Dose: 5 mg Citalopram Hydrobromide (Celexa) 20 mg PO DAILY [facility] Last Admin: 02/07/17 09:32 Dose: 20 mg Clonidine HCl (Catapres) 0.3 mg PO TID [facility] Last Admin: 02/07/17 16:28 Dose: 0.3 mg Furosemide (Lasix) 80 mg IV BID [facility] Last Admin: 02/07/17 18:19 Dose: 80 mg Hydralazine HCl (Apresoline) 25 mg PO Q6 [facility] Last Admin: 02/08/17 05:44 Dose: 25 mg Levofloxacin/Dextrose (Levaquin 750mg) 150 mls @ 100 mls/hr IVPB QOTHERDAY@ 2100 [facility] Last Admin: 02/07/17 21:51 Dose: 100 mls/hr Ceftriaxone Sodium 1 gm/ (Sodium Chloride) 100 mls @ 100 mls/hr IVPB 2000 [facility] Last Admin: 02/07/17 21:52 Dose: 100 mls/hr Heparin Sodium/Dextrose (Heparin 25,000 Units/250ml In D5w) 250 mls @ 19 mls/ hr IV .[id number] [facility] PRN Reason: Protocol Last Admin: 02/08/17 03:40 Dose: 19 mls/hr Isoniazid (Niazid) 300 mg PO DAILY [facility] Last Admin: 02/07/17 09:32 Dose: 300 mg Labetalol HCl (Trandate) 200 mg PO BID@0900,2100 [facility] Metolazone (Zaroxolyn) 5 mg PO QOD [facility] Last Admin: 02/07/17 09:32 Dose: 5 mg Ondansetron HCl (Zofran Inj) 4 mg IVP Q6 PRN PRN Reason: Nausea/Vomiting Last Admin: 01/31/17 14:22 Dose: 4 mg Prednisone (Prednisone Tab) 40 mg PO DAILY [facility] Last Admin: 02/07/17 09:37 Dose: 40 mg Pyridoxine HCl (Vitamin B6) 100 mg PO DAILY [facility] Last Admin: 02/07/17 09:32 Dose: 100 mg - Labs Labs: 02/07/17 06:40 02/07/17 06:45 PT 11.5 SECONDS (9.6-11.2) H 02/08/17 01:30 INR 1.11 (0.92-1.08) H 02/08/17 01:30 APTT 36.5 SECONDS (23.3-32.5) H 02/08/17 01:30 - Constitutional Appears: Non-toxic, No Acute Distress - Eye Exam Eye Exam: EOMI. absent: Conjunctival injection, Periorbital swelling, Scleral icterus Pupil Exam: PERRL - ENT Exam ENT Exam: Mucous Membranes Moist - Respiratory Exam Respiratory Exam: Wheezes, NORMAL BREATHING PATTERN. absent: Rhonchi Additional comments: slight expiratory wheezes still appreciated throughout both lung [place] - Cardiovascular Exam Cardiovascular Exam: REGULAR RHYTHM, RRR, +S1, +S2. absent: Gallop, JVD, Rubs, Murmur - GI/Abdominal Exam GI & Abdominal Exam: Soft, Normal Bowel Sounds. absent: Distended, Firm, Guarding, Rigid, Tenderness - Extremities Exam Extremities Exam: Pedal Edema. absent: Tenderness Additional comments: 2+ pedal edema still observed bilaterally on examination. No erythema, nontender , negative homans. - Back Exam Back Exam: NORMAL INSPECTION. 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 Sandoval's recommendations. 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 Kapoor. -Nephrology consult as per Dr. Sandoval: Suggests prednisione, low K diet. Cyclophosphamide held due to multiple lung infiltrates on CT, recommends increasing Lasix dosage to 80mg IV BID. -strict I/Os, possible increase in Lasix dose. 3) Right Axillary DVT -right upper Ext Doppler US 02/03 showed: possible thrombus formation surrounding PICC line in axillary vein -Follow up right upper ext doppler: nonocclusive thrombus in distal axillary vein, occulsive thrombus in the basilic vein with a PICC line in place -Heparin continued, may consider removing PICC line and using peripheral line instead. -last PTT 48.3, heparin adjusted as per normogram -PTT check q6 hours, next check: pending (ordered at 15:00) -Heparin 25,000 units at 19.0mls/hr -pt will need 3 months of anticoagulation 4) HCAP -Recent discharge from hospital 01/13 -Afebrile -CXR: right upper lobe pneumonia. mild left pleural effusion. -Abx day #9 -Levofloxacin 750 mg Q48 h renal dosage -Rocephin 1 g IV daily -Isolation: droplet precaution -Bronchoscopy performed on 02/06, samples were obtained for culture. -Post Bronchoscopy CXR: interval improvement in right upper lobe infiltrate. No pneumothorax. 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 Mayes. 7) Hyperkalemia (resolved) -secondary to renal failure -K 4.3 -follow BMPs 8) Anemia, chronic -secondary to CKD -hgb: 8.8 -Hem-Onc consult: hold cyclophosphamide -F/U H/H 9) Depression -Celexa 10) DVT prophylaxis -last PTT 48.3, heparin adjusted as per normogram -PTT check q6 hours, next check: pending (ordered for 15:00) -Heparin 25,000 units at 19.0mls/hr 11) Pt prefers brother Brady as Power of follow up specialist -Contact for Brady is [phone]
[2017-02-08] MEDS: Pyridoxine 100 mg Tab PO SCH (09:16)
[2017-02-08 09:44] LABS: PARTIAL THROMBOPLASTIN TIME 48.3 SECONDS (23.3-32.5)
--- NOTE | 2017-02-08 10:01 | CP.PCM.PN ---
Subjective - Date & Time of Evaluation Date of Evaluation: 02/08/17 Time of Evaluation: 09:59 - Subjective Subjective: seen and examined no complaints Objective - Vital Signs/Intake and Output Vital Signs (last 24 hours): Temp Pulse Resp BP Pulse Ox 97.6 F 67 20 143/81 96 02/08/17 08:03 02/08/17 09:15 02/08/17 08:03 02/08/17 09:16 02/08/17 08:03 - Medications Medications: Current Medications Albuterol/Ipratropium (Duoneb 3 Mg/0.5 Mg (3 Ml) Ud) [address] [facility] Last Admin: 02/08/17 08:05 Dose: 3 ml Amlodipine Besylate (Norvasc) [address] [facility] Last Admin: 02/08/17 09:15 Dose: 5 mg Citalopram Hydrobromide (Celexa) [address] [facility] Last Admin: 02/08/17 09:15 Dose: 20 mg Clonidine HCl (Catapres) 0.[address] [facility] Last Admin: 02/08/17 09:15 Dose: 0.3 mg Furosemide (Lasix) [address] [facility] Last Admin: 02/08/17 09:16 Dose: 80 mg Hydralazine HCl (Apresoline) [address] [facility] Last Admin: 02/08/17 09:15 Dose: 25 mg Levofloxacin/Dextrose (Levaquin 750mg) 150 mls @ 100 mls/hr IVPB QOTHERDAY@ 2100 [facility] Last Admin: 02/07/17 21:51 Dose: 100 mls/hr Ceftriaxone Sodium 1 gm/ (Sodium Chloride) 100 mls @ 100 mls/hr IVPB 2000 [facility] Last Admin: 02/07/17 21:52 Dose: 100 mls/hr Heparin Sodium/Dextrose (Heparin 25,000 Units/250ml In D5w) 250 mls @ 19 mls/ hr IV .[id number] [facility] PRN Reason: Protocol Last Admin: 02/08/17 03:40 Dose: 19 mls/hr Isoniazid (Niazid) [address] [facility] Last Admin: 02/08/17 09:16 Dose: 300 mg Labetalol HCl (Trandate) 200 mg PO BID@0900,2100 [facility] Metolazone (Zaroxolyn) [address] [facility] Last Admin: 02/07/17 09:32 Dose: 5 mg Ondansetron HCl (Zofran Inj) 4 mg IVP Q6 PRN PRN Reason: Nausea/Vomiting Last Admin: 01/31/17 14:22 Dose: 4 mg Prednisone (Prednisone Tab) [address] [facility] Last Admin: 02/08/17 09:16 Dose: 40 mg Pyridoxine HCl (Vitamin B6) [address] [facility] Last Admin: 02/08/17 09:16 Dose: 100 mg - Labs Labs: 02/07/17 06:40 02/07/17 06:45 PT 11.8 SECONDS (9.6-11.2) H 02/08/17 09:24 INR 1.13 (0.92-1.08) H 02/08/17 09:24 APTT 48.3 SECONDS (23.3-32.5) H 02/08/17 09:24 - Constitutional Appears: Well - Head Exam Head Exam: ATRAUMATIC - Eye Exam Eye Exam: Normal appearance - ENT Exam ENT Exam: Normal Exam - Neck Exam Neck Exam: Normal Inspection - Respiratory Exam Additional comments: wheezing b/l - Cardiovascular Exam Cardiovascular Exam: +S1, +S2 - GI/Abdominal Exam GI & Abdominal Exam: Soft - Extremities Exam Additional comments: 2+ - Neurological Exam Neurological Exam: Alert, Oriented x3 - Psychiatric Exam Psychiatric exam: Normal Affect - Skin Skin Exam: Normal Color Assessment and Plan - Assessment and Plan (Free Text) Assessment: ARF / Pulmonary Infiltartes / Latent Tb/ CHF/ HTN plan: SHERRY - cr remains stable. cyotxan on hold given infection. On po pred. Infiltrates - s/p bronch awaiting results tb per ID. recc give metolazone bid w/ lasx instead of qod. Its not clear how much he is diuresing - output not being recorded
[2017-02-08] MEDS: metOLazone 5 MG TAB PO SCH (17:05)
[2017-02-09 03:56] LABS: PARTIAL THROMBOPLASTIN TIME 74.2 SECONDS (23.3-32.5)
[2017-02-09] MEDS: Heparin 25,000units in D5W 250 ML IV SCH ×2 (05:29→20:32)
[2017-02-09 06:46] LABS: HEMATOCRIT 26.2 % (35.0-51.0); MEAN CELL VOLUME 93.1 fl (80.0-94.0); MEAN CORPUSCULAR HEMOGLOBIN 31.7 pg (27.0-31.0); MEAN CORPUSCULAR HGB CONC 34.1 g/dL (33.0-37.0); RED CELL DISTRIBUTION WIDTH 14.4 % (11.5-14.5); WHITE BLOOD COUNT 9.7 K/uL (4.8-10.8)
[2017-02-09 07:33] LABS: POTASSIUM 4.6 MMOL/L (3.6-5.0)
[2017-02-09 07:37] LABS: CALCIUM 7.6 mg/dL (8.4-10.2)
[2017-02-09] MEDS: Albuterol-Ipratrop 3 mg / 0.5 (3 ml) UD INH SCH ×4 (07:59→19:35)
[2017-02-09] MEDS: metOLazone 5 MG TAB PO SCH ×2 (09:22→16:07)
[2017-02-09] MEDS: Pyridoxine 100 mg Tab PO SCH (09:22)
--- NOTE | 2017-02-09 09:34 | CP.PCM.PN ---
Subjective - Date & Time of Evaluation Date of Evaluation: 02/09/17 Time of Evaluation: 07:00 - Subjective Subjective: pt seen and examined at bedside this morning. No acute events overnight. Trending PTT values. Pt has no new complaints. Lying upright in bed, NAD. Reports feeling as if his condition has improved. Feels as if pedal edema has decreased since yesterday. Reports urinating every 10 minutes. OOB/ambulating without dizziness. Maintained improvement in SOB. Denies fever/chills, headaches , changes in vision, CP/palpitations/orthopnea, N/V/D/C, epistaxis, gingival bleeding, hemoptysis, hematuria, hematochezia, melena, numbness/tingling, leg pain. Objective - Vital Signs/Intake and Output Vital Signs (last 24 hours): Temp Pulse Resp BP Pulse Ox 97.9 F 72 20 152/77 H 99 02/09/17 08:13 02/09/17 09:26 02/09/17 08:13 02/09/17 09:26 02/09/17 08:13 - Medications Medications: Current Medications Albuterol/Ipratropium (Duoneb 3 Mg/0.5 Mg (3 Ml) Ud) 3 ml INH RQID [facility] Last Admin: 02/09/17 07:59 Dose: 3 ml Amlodipine Besylate (Norvasc) 5 mg PO DAILY [facility] Last Admin: 02/09/17 09:26 Dose: 5 mg Citalopram Hydrobromide (Celexa) 20 mg PO DAILY [facility] Last Admin: 02/09/17 09:22 Dose: 20 mg Clonidine HCl (Catapres) 0.3 mg PO TID [facility] Last Admin: 02/09/17 09:22 Dose: 0.3 mg Furosemide (Lasix) 80 mg IV BID [facility] Last Admin: 02/09/17 09:21 Dose: 80 mg Hydralazine HCl (Apresoline) 25 mg PO Q6 [facility] Last Admin: 02/09/17 09:24 Dose: 25 mg Levofloxacin/Dextrose (Levaquin 750mg) 150 mls @ 100 mls/hr IVPB QOTHERDAY@ 2100 [facility] Last Admin: 02/07/17 21:51 Dose: 100 mls/hr Ceftriaxone Sodium 1 gm/ (Sodium Chloride) 100 mls @ 100 mls/hr IVPB 2000 [facility] Last Admin: 02/08/17 21:00 Dose: 100 mls/hr Heparin Sodium/Dextrose (Heparin 25,000 Units/250ml In D5w) 250 mls @ 19 mls/ hr IV .[id number] [facility] PRN Reason: Protocol Last Admin: 02/09/17 05:29 Dose: 19 mls/hr Isoniazid (Niazid) 300 mg PO DAILY [facility] Last Admin: 02/09/17 09:22 Dose: 300 mg Labetalol HCl (Trandate) 200 mg PO BID@0900,2100 [facility] Metolazone (Zaroxolyn) 5 mg PO BID [facility] Last Admin: 02/09/17 09:22 Dose: 5 mg Ondansetron HCl (Zofran Inj) 4 mg IVP Q6 PRN PRN Reason: Nausea/Vomiting Last Admin: 01/31/17 14:22 Dose: 4 mg Prednisone (Prednisone Tab) 40 mg PO DAILY [facility] Last Admin: 02/09/17 09:23 Dose: 40 mg Pyridoxine HCl (Vitamin B6) 100 mg PO DAILY [facility] Last Admin: 02/09/17 09:22 Dose: 100 mg - Labs Labs: 02/09/17 05:30 02/09/17 05:30 PT 11.8 SECONDS (9.6-11.2) H 02/09/17 03:33 INR 1.13 (0.92-1.08) H 02/09/17 03:33 APTT 74.2 SECONDS (23.3-32.5) H* 02/09/17 03:33 - Constitutional Appears: Non-toxic, No Acute Distress - Eye Exam Eye Exam: EOMI. absent: Conjunctival injection, Periorbital swelling, Scleral icterus Pupil Exam: PERRL - ENT Exam ENT Exam: Mucous Membranes Moist - Neck Exam Neck Exam: Full ROM - Respiratory Exam Respiratory Exam: Wheezes (expiratory wheezes still appreciated diffusely, but without worsening.), NORMAL BREATHING PATTERN. absent: Accessory Muscle Use, Chest Wall Tenderness, Respiratory Distress - Cardiovascular Exam Cardiovascular Exam: REGULAR RHYTHM, RRR, +S1, +S2. absent: Gallop, JVD, Rubs, Murmur - GI/Abdominal Exam GI & Abdominal Exam: Soft, Normal Bowel Sounds. absent: Distended, Guarding, Rigid, Tenderness, Mass, Rebound - Extremities Exam Extremities Exam: Pedal Edema (improving pedal edema, decrease in LE diameter bilaterally, 2+ today, ). absent: Calf Tenderness - Back Exam Back Exam: NORMAL INSPECTION. 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 Sandoval's recommendations. 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 Kapoor. -Nephrology consult as per Dr. Sandoval: Suggests prednisione, low K diet. Cyclophosphamide held due to multiple lung infiltrates on CT, recommends increasing Lasix dosage to 80mg IV BID. -strict I/Os, possible increase in Lasix dose. -non-ideal candidate for chemo as he is ill and a poor follow up 3) Right Axillary DVT -right upper Ext Doppler US 02/03 showed: possible thrombus formation surrounding PICC line in axillary vein -Follow up right upper ext doppler: nonocclusive thrombus in distal axillary vein, occulsive thrombus in the basilic vein with a PICC line in place -Heparin continued, may consider removing PICC line and using peripheral line instead. -last PTT 48.3, heparin adjusted as per normogram -PTT check q6 hours, next check: pending -Heparin 25,000 units at 19.0mls/hr -picc line will stay for now -pt will need 3 months of anticoagulation 4) HCAP -Recent discharge from hospital 01/13 -Afebrile -CXR: right upper lobe pneumonia. mild left pleural effusion. -Abx day #10 -Levofloxacin 750 mg Q48 h renal dosage -Rocephin 1 g IV daily -Isolation: droplet precaution -Bronchoscopy performed on 02/06, samples were obtained for culture. -Post Bronchoscopy CXR: interval improvement in right upper lobe infiltrate. No pneumothorax. 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 Mayes. 7) Hyperkalemia (resolved) -secondary to renal failure -K 4.6 -follow BMPs 8) Anemia, chronic -secondary to CKD -hgb: 8.8 -Hem-Onc consult: hold cyclophosphamide -F/U H/H 9) Depression -Celexa 10) DVT prophylaxis -last PTT 71.3, heparin adjusted as per normogram -PTT check q6 hours, next check: pending (ordered for 15:00) -Heparin 25,000 units at 19.0mls/hr 11) Pt prefers brother Brady as Power of assistant city attorney -Contact for Brady is [phone]
--- NOTE | 2017-02-09 09:40 | CP.PCM.PN ---
Subjective - Date & Time of Evaluation Date of Evaluation: 02/09/17 Time of Evaluation: 09:37 - Subjective Subjective: Spoke with laboratory; bronchoscopy specimen for cytology processed and awaiting final result. Microbiology specimen sent out to [facility] for AFB. Lab checking on routine and fungal cultures. Objective - Vital Signs/Intake and Output Vital Signs (last 24 hours): Temp Pulse Resp BP Pulse Ox 97.9 F 72 20 152/77 H 99 02/09/17 08:13 02/09/17 09:26 02/09/17 08:13 02/09/17 09:26 02/09/17 08:13 - Medications Medications: Current Medications Albuterol/Ipratropium (Duoneb 3 Mg/0.5 Mg (3 Ml) Ud) 3 ml INH RQID [facility] Last Admin: 02/09/17 07:59 Dose: 3 ml Amlodipine Besylate (Norvasc) 5 mg PO DAILY [facility] Last Admin: 02/09/17 09:26 Dose: 5 mg Citalopram Hydrobromide (Celexa) 20 mg PO DAILY [facility] Last Admin: 02/09/17 09:22 Dose: 20 mg Clonidine HCl (Catapres) 0.3 mg PO TID [facility] Last Admin: 02/09/17 09:22 Dose: 0.3 mg Furosemide (Lasix) 80 mg IV BID [facility] Last Admin: 02/09/17 09:21 Dose: 80 mg Hydralazine HCl (Apresoline) 25 mg PO Q6 [facility] Last Admin: 02/09/17 09:24 Dose: 25 mg Levofloxacin/Dextrose (Levaquin 750mg) 150 mls @ 100 mls/hr IVPB QOTHERDAY@ 2100 [facility] Last Admin: 02/07/17 21:51 Dose: 100 mls/hr Ceftriaxone Sodium 1 gm/ (Sodium Chloride) 100 mls @ 100 mls/hr IVPB 2000 [facility] Last Admin: 02/08/17 21:00 Dose: 100 mls/hr Heparin Sodium/Dextrose (Heparin 25,000 Units/250ml In D5w) 250 mls @ 19 mls/ hr IV .[id number] [facility] PRN Reason: Protocol Last Admin: 02/09/17 05:29 Dose: 19 mls/hr Isoniazid (Niazid) 300 mg PO DAILY [facility] Last Admin: 02/09/17 09:22 Dose: 300 mg Labetalol HCl (Trandate) 200 mg PO BID@0900,2100 [facility] Metolazone (Zaroxolyn) 5 mg PO BID [facility] Last Admin: 02/09/17 09:22 Dose: 5 mg Ondansetron HCl (Zofran Inj) 4 mg IVP Q6 PRN PRN Reason: Nausea/Vomiting Last Admin: 01/31/17 14:22 Dose: 4 mg Prednisone (Prednisone Tab) 40 mg PO DAILY [facility] Last Admin: 02/09/17 09:23 Dose: 40 mg Pyridoxine HCl (Vitamin B6) 100 mg PO DAILY [facility] Last Admin: 02/09/17 09:22 Dose: 100 mg - Labs Labs: 02/09/17 05:30 02/09/17 05:30 PT 11.8 SECONDS (9.6-11.2) H 02/09/17 03:33 INR 1.13 (0.92-1.08) H 02/09/17 03:33 APTT 74.2 SECONDS (23.3-32.5) H* 02/09/17 03:33 Assessment and Plan (1) ANCA-associated vasculitis Status: Chronic (2) Pneumonia Status: Acute (3) Pleural effusion Status: Acute
[2017-02-09] MEDS ORDERED: Heparin 25,000units in D5W 250 ML IV SCH (10:09)
[2017-02-10 07:20] LABS: HEMATOCRIT 26.5 % (35.0-51.0); MEAN CELL VOLUME 93.8 fl (80.0-94.0); MEAN CORPUSCULAR HEMOGLOBIN 31.2 pg (27.0-31.0); MEAN CORPUSCULAR HGB CONC 33.3 g/dL (33.0-37.0); RED CELL DISTRIBUTION WIDTH 14.4 % (11.5-14.5); WHITE BLOOD COUNT 10.9 K/uL (4.8-10.8)
[2017-02-10 07:37] LABS: ALB/GLOB RATIO 0.8 (1.0-2.1); BILIRUBIN,TOTAL 0.1 mg/dl (0.2-1.3); CALCIUM 7.6 mg/dL (8.4-10.2); POTASSIUM 4.4 MMOL/L (3.6-5.0); TOTAL PROTEIN 4.9 G/DL (6.3-8.2)
[2017-02-10] MEDS: Albuterol-Ipratrop 3 mg / 0.5 (3 ml) UD INH SCH ×4 (08:13→19:01)
--- NOTE | 2017-02-10 08:15 | CP.PCM.PN ---
Subjective - Date & Time of Evaluation Date of Evaluation: 02/10/17 Time of Evaluation: 08:12 - Subjective Subjective: pt seen and examined at bedside this morning. No acute events overnight. Lying in bed comfortably, NAD. Reports no change in condition since yesterday, feels the same. Reports increased painless edema in right upper extremity. No other complaints. Denies fever/chills, headaches, CP/SOB/palpitations, cough, N/V/D/C , epistaxis, hemoptysis, melena, hematochezia, hematuria. Objective - Vital Signs/Intake and Output Vital Signs (last 24 hours): Temp Pulse Resp BP Pulse Ox 98.4 F 80 20 152/81 H 95 02/10/17 04:56 02/10/17 04:59 02/10/17 04:56 02/10/17 04:59 02/10/17 04:56 Intake and Output: 02/10/17 02/10/17 06:59 18:59 Intake Total 730 Output Total 700 Balance 30 - Medications Medications: Current Medications Albuterol/Ipratropium (Duoneb 3 Mg/0.5 Mg (3 Ml) Ud) 3 ml INH RQID [facility] Last Admin: 02/09/17 19:35 Dose: 3 ml Amlodipine Besylate (Norvasc) 5 mg PO DAILY [facility] Last Admin: 02/09/17 09:26 Dose: 5 mg Citalopram Hydrobromide (Celexa) 20 mg PO DAILY [facility] Last Admin: 02/09/17 09:22 Dose: 20 mg Clonidine HCl (Catapres) 0.3 mg PO TID [facility] Last Admin: 02/09/17 16:06 Dose: 0.3 mg Furosemide (Lasix) 80 mg IV BID [facility] Last Admin: 02/09/17 16:06 Dose: 80 mg Hydralazine HCl (Apresoline) 25 mg PO Q6 [facility] Last Admin: 02/10/17 04:59 Dose: 25 mg Levofloxacin/Dextrose (Levaquin 750mg) 150 mls @ 100 mls/hr IVPB QOTHERDAY@ 2100 [facility] Last Admin: 02/09/17 21:27 Dose: 100 mls/hr Heparin Sodium/Dextrose (Heparin 25,000 Units/250ml In D5w) 250 mls @ 15.5 mls/ hr IV .Q16H8M [facility] PRN Reason: Protocol Last Admin: 02/09/17 20:32 Dose: 15.5 mls/hr Isoniazid (Niazid) 300 mg PO DAILY [facility] Last Admin: 02/09/17 09:22 Dose: 300 mg Labetalol HCl (Trandate) 200 mg PO BID@0900,2100 [facility] Metolazone (Zaroxolyn) 5 mg PO BID [facility] Last Admin: 02/09/17 16:07 Dose: 5 mg Ondansetron HCl (Zofran Inj) 4 mg IVP Q6 PRN PRN Reason: Nausea/Vomiting Last Admin: 01/31/17 14:22 Dose: 4 mg Prednisone (Prednisone Tab) 40 mg PO DAILY [facility] Last Admin: 02/09/17 09:23 Dose: 40 mg Pyridoxine HCl (Vitamin B6) 100 mg PO DAILY [facility] Last Admin: 02/09/17 09:22 Dose: 100 mg - Labs Labs: 02/10/17 06:30 02/10/17 06:30 PT 11.8 SECONDS (9.6-11.2) H 02/09/17 03:33 INR 1.13 (0.92-1.08) H 02/09/17 03:33 APTT 61.1 SECONDS (23.3-32.5) H* 02/10/17 06:30 - Constitutional Appears: Non-toxic, No Acute Distress - Eye Exam Eye Exam: EOMI Pupil Exam: PERRL - Respiratory Exam Respiratory Exam: Wheezes, NORMAL BREATHING PATTERN. absent: Clear to Ausculation Bilateral, Rales, Rhonchi, Respiratory Distress - Cardiovascular Exam Cardiovascular Exam: REGULAR RHYTHM, RRR, +S1, +S2. absent: Gallop, JVD, Rubs, Murmur - GI/Abdominal Exam GI & Abdominal Exam: Soft, Normal Bowel Sounds. absent: Distended, Guarding, Rigid, Tenderness - Extremities Exam Extremities Exam: Full ROM, Pedal Edema (improvement in pedal edema) Additional comments: worsening right forearm edema. 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 Sandoval's recommendations. 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 Kapoor. -Nephrology consult as per Dr. Sandoval: Suggests prednisione, low K diet. Cyclophosphamide held due to multiple lung infiltrates on CT, recommends increasing Lasix dosage to 80mg IV BID. -strict I/Os, possible increase in Lasix dose. -non-ideal candidate for chemo as he is ill and a poor follow up 3) Right Axillary DVT -right upper Ext Doppler US 02/03 showed: possible thrombus formation surrounding PICC line in axillary vein -Follow up right upper ext doppler: nonocclusive thrombus in distal axillary vein, occulsive thrombus in the basilic vein with a PICC line in place -Heparin continued, may consider removing PICC line and using peripheral line instead. -last PTT 48.3, heparin adjusted as per normogram -PTT check q6 hours, next check: pending -Heparin 25,000 units at 15.5mls/hr -picc line will stay for now -pt will need 3 months of anticoagulation -f/u Right duplex due to increased RUE edema. 4) HCAP -Recent discharge from hospital 01/13 -Afebrile -CXR: right upper lobe pneumonia. mild left pleural effusion. -Abx day #11 -Levofloxacin 750 mg Q48 h renal dosage -Rocephin 1 g IV (discontinued) -Isolation: discontinued -Bronchoscopy performed on 02/06, samples were obtained for culture. -Post Bronchoscopy CXR: interval improvement in right upper lobe infiltrate. No pneumothorax. 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 Mayes. 7) Hyperkalemia (resolved) -secondary to renal failure -K 4.6 -follow BMPs 8) Anemia, chronic -secondary to CKD -hgb: 8.8 -Hem-Onc consult: hold cyclophosphamide -F/U H/H 9) Depression -Celexa 10) DVT prophylaxis -last PTT 61.3, heparin adjusted as per normogram -PTT check q6 hours, next check: pending (ordered for 15:00) -Heparin 25,000 units at 15.5mls/hr 11) Pt prefers brother Brady as Power of traffic law attorney -Contact for Brady is [phone]
[2017-02-10] MEDS: Pyridoxine 100 mg Tab PO SCH (09:16)
[2017-02-10] MEDS: metOLazone 5 MG TAB PO SCH ×2 (09:16→16:18)
--- NOTE | 2017-02-10 12:05 | CP.PCM.PN ---
Subjective - Date & Time of Evaluation Date of Evaluation: 02/10/17 Time of Evaluation: 12:02 - Subjective Subjective: Remains afebrile. WBC has increased to 10.5 this morning. AFB smear of BAL fluid 'no AFB seen". Prior MTB cultures were negative x4. Fluid cytology was negative for malignancy as well as fungus smear. Routine culture apparently was not done? His CXR after the bronchoscopy showed significant improvement in the pneumonic infiltrate. I see no reason to continue respiratory isolation at this time. A follow up CXR has been requested. Final AFB and fungal cultures are pending. Objective - Vital Signs/Intake and Output Vital Signs (last 24 hours): Temp Pulse Resp BP Pulse Ox 97.6 F 75 20 154/71 H 95 02/10/17 08:34 02/10/17 09:16 02/10/17 08:34 02/10/17 09:16 02/10/17 08:34 Intake and Output: 02/10/17 02/10/17 11:59 23:59 Intake Total 730 Output Total 700 Balance 30 - Medications Medications: Current Medications Albuterol/Ipratropium (Duoneb 3 Mg/0.5 Mg (3 Ml) Ud) 3 ml INH RQID [facility] Last Admin: 02/10/17 11:59 Dose: 3 ml Amlodipine Besylate (Norvasc) 5 mg PO DAILY [facility] Last Admin: 02/10/17 09:16 Dose: 5 mg Citalopram Hydrobromide (Celexa) 20 mg PO DAILY [facility] Last Admin: 02/10/17 09:16 Dose: 20 mg Clonidine HCl (Catapres) 0.3 mg PO TID [facility] Last Admin: 02/10/17 09:14 Dose: 0.3 mg Furosemide (Lasix) 80 mg IV BID [facility] Last Admin: 02/10/17 09:12 Dose: 80 mg Hydralazine HCl (Apresoline) 25 mg PO Q6 [facility] Last Admin: 02/10/17 09:15 Dose: 25 mg Levofloxacin/Dextrose (Levaquin 750mg) 150 mls @ 100 mls/hr IVPB QOTHERDAY@ 2100 [facility] Last Admin: 02/09/17 21:27 Dose: 100 mls/hr Heparin Sodium/Dextrose (Heparin 25,000 Units/250ml In D5w) 250 mls @ 15.5 mls/ hr IV .Q16H8M [facility] PRN Reason: Protocol Last Admin: 02/09/17 20:32 Dose: 15.5 mls/hr Isoniazid (Niazid) 300 mg PO DAILY [facility] Last Admin: 02/10/17 09:16 Dose: 300 mg Labetalol HCl (Trandate) 200 mg PO BID@0900,2100 [facility] Metolazone (Zaroxolyn) 5 mg PO BID [facility] Last Admin: 02/10/17 09:16 Dose: 5 mg Ondansetron HCl (Zofran Inj) 4 mg IVP Q6 PRN PRN Reason: Nausea/Vomiting Last Admin: 01/31/17 14:22 Dose: 4 mg Prednisone (Prednisone Tab) 40 mg PO DAILY [facility] Last Admin: 02/10/17 09:16 Dose: 40 mg Pyridoxine HCl (Vitamin B6) 100 mg PO DAILY [facility] Last Admin: 02/10/17 09:16 Dose: 100 mg - Labs Labs: 02/10/17 06:30 02/10/17 06:30 PT 11.8 SECONDS (9.6-11.2) H 02/09/17 03:33 INR 1.13 (0.92-1.08) H 02/09/17 03:33 APTT 61.1 SECONDS (23.3-32.5) H* 02/10/17 06:30 Assessment and Plan (1) ANCA-associated vasculitis Status: Chronic (2) Pneumonia Status: Acute (3) Pleural effusion Status: Acute
[2017-02-10] MEDS: Heparin 25,000units in D5W 250 ML IV SCH ×2 (13:03→16:10)
--- NOTE | 2017-02-10 15:36 | US ---
PROCEDURE: Right Upper Extremity Venous Doppler HISTORY: right axillary DVT COMPARISON: 02/07/2017 TECHNIQUE: Right extremity deep veins, including the lower internal jugular, subclavian, axillary and brachial veins, were evaluated flow, compressibility and respiratory phasicity. FINDINGS: A right PICC line remains in place. There is redemonstration of partially occlusive thrombus in the axillary vein. There is thrombophlebitis in the basilic vein with loss of compressibility and color flow. The subclavian, brachial and cephalic veins are patent IMPRESSION: 1. Redemonstration of non occlusive thrombus in the axillary vein. 2. Persistent basilic thrombophlebitis.
--- NOTE | 2017-02-10 15:55 | RAD ---
HISTORY: Pneumonia COMPARISON: 02/06/2017 TECHNIQUE: Chest PA and lateral FINDINGS: The right PICC line terminates in the SVC. LUNGS: There is improving right upper lobe pneumonia with residual mild airspace disease. There is a left retrocardiac opacity. PLEURA: There is a small left pleural effusion. There is no large right pleural effusion. No pneumothorax. CARDIOVASCULAR: Normal. OSSEOUS STRUCTURES: No significant abnormalities. VISUALIZED UPPER ABDOMEN: Normal. OTHER FINDINGS: None. IMPRESSION: 1. Improving right upper lobe pneumonia. 2. Small left pleural effusion. Left lower lobe airspace disease cannot be excluded.
[2017-02-11] MEDS: Heparin 25,000units in D5W 250 ML IV SCH ×2 (06:39→18:49)
--- NOTE | 2017-02-11 06:53 | CP.PCM.PN ---
Subjective - Date & Time of Evaluation Date of Evaluation: 02/11/17 Time of Evaluation: 06:53 - Subjective Subjective: pt seen and examined at bedside this morning. No acute events overnight. Lying in bed upright in NAD. Reports feeling the same as yesterday but improvement in right upper extremity edema. No new complaints. Reports urinating frequently. OOB/ambulating without dizziness/lightheadedness. Tolerating PO intake without difficulty. Denies fever/chills, headaches, cough, CP/SOB/Palpitations, N/V/D/C , epistaxis, hemoptysis, hematochezia, melena, hematuria, leg pain, numbness/ tingling. Objective - Vital Signs/Intake and Output Vital Signs (last 24 hours): Temp Pulse Resp BP Pulse Ox 97.9 F 82 20 165/79 H 95 02/11/17 04:14 02/11/17 04:14 02/11/17 04:14 02/11/17 04:14 02/11/17 04:14 Intake and Output: 02/10/17 02/11/17 18:59 06:59 Intake Total 1266 Output Total 1250 Balance 16 - Medications Medications: Current Medications Albuterol/Ipratropium (Duoneb 3 Mg/0.5 Mg (3 Ml) Ud) 3 ml INH RQID [facility] Last Admin: 02/10/17 19:01 Dose: 3 ml Amlodipine Besylate (Norvasc) 5 mg PO DAILY [facility] Last Admin: 02/10/17 09:16 Dose: 5 mg Citalopram Hydrobromide (Celexa) 20 mg PO DAILY [facility] Last Admin: 02/10/17 09:16 Dose: 20 mg Clonidine HCl (Catapres) 0.3 mg PO TID [facility] Last Admin: 02/10/17 16:16 Dose: 0.3 mg Furosemide (Lasix) 80 mg IV BID [facility] Last Admin: 02/10/17 16:16 Dose: 80 mg Hydralazine HCl (Apresoline) 25 mg PO Q6 [facility] Last Admin: 02/11/17 03:22 Dose: 25 mg Levofloxacin/Dextrose (Levaquin 750mg) 150 mls @ 100 mls/hr IVPB QOTHERDAY@ 2100 [facility] Last Admin: 02/09/17 21:27 Dose: 100 mls/hr Heparin Sodium/Dextrose (Heparin 25,000 Units/250ml In D5w) 250 mls @ 15.5 mls/ hr IV .Q16H8M [facility] PRN Reason: Protocol Last Admin: 02/11/17 06:39 Dose: 15.5 mls/hr Isoniazid (Niazid) 300 mg PO DAILY [facility] Last Admin: 02/10/17 09:16 Dose: 300 mg Labetalol HCl (Trandate) 200 mg PO BID@0900,2100 [facility] Metolazone (Zaroxolyn) 5 mg PO BID [facility] Last Admin: 02/10/17 16:18 Dose: 5 mg Ondansetron HCl (Zofran Inj) 4 mg IVP Q6 PRN PRN Reason: Nausea/Vomiting Last Admin: 01/31/17 14:22 Dose: 4 mg Prednisone (Prednisone Tab) 40 mg PO DAILY [facility] Last Admin: 02/10/17 09:16 Dose: 40 mg Pyridoxine HCl (Vitamin B6) 100 mg PO DAILY [facility] Last Admin: 02/10/17 09:16 Dose: 100 mg - Labs Labs: 02/10/17 06:30 02/10/17 06:30 PT 11.8 SECONDS (9.6-11.2) H 02/09/17 03:33 INR 1.13 (0.92-1.08) H 02/09/17 03:33 APTT 55.9 SECONDS (23.3-32.5) H 02/10/17 23:46 - Constitutional Appears: Non-toxic, No Acute Distress - Eye Exam Eye Exam: EOMI. absent: Conjunctival injection, Periorbital swelling, Scleral icterus Pupil Exam: PERRL - ENT Exam ENT Exam: Mucous Membranes Moist - Respiratory Exam Respiratory Exam: Wheezes, NORMAL BREATHING PATTERN. absent: Rales, Rhonchi Additional comments: bilateral expiratory wheezes, no change since yesterday - Cardiovascular Exam Cardiovascular Exam: REGULAR RHYTHM, RRR, +S1, +S2. absent: Gallop, JVD, Rubs, Murmur - GI/Abdominal Exam GI & Abdominal Exam: Soft, Normal Bowel Sounds. absent: Distended, Guarding, Rigid, Tenderness - Extremities Exam Extremities Exam: Pedal Edema. absent: Calf Tenderness Additional comments: 3+ pitting edema bilaterally. Decreased LE edema. 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 Sandoval's recommendations. 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 Kapoor. -Nephrology consult as per Dr. Sandoval: Suggests prednisione, low K diet. Cyclophosphamide held due to multiple lung infiltrates on CT, recommends increasing Lasix dosage to 80mg IV BID. -strict I/Os, possible increase in Lasix dose. -non-ideal candidate for chemo as he is ill and a poor follow up 3) Right Axillary DVT -right upper Ext Doppler US 02/03 showed: possible thrombus formation surrounding PICC line in axillary vein -Follow up right upper ext doppler: nonocclusive thrombus in distal axillary vein, occulsive thrombus in the basilic vein with a PICC line in place -Heparin continued, may consider removing PICC line and using peripheral line instead. -last PTT 57.8, heparin adjusted as per normogram -PTT check q6 hours, next check: pending -Heparin 25,000 units at 15.5mls/hr -picc line will stay for now -f/u Right duplex due to increased RUE edema: redemonstration of nonocclusive thrombus in axillary vein; persistent basilic thrombophlebitis. 4) HCAP -Recent discharge from hospital 01/13 -Afebrile -CXR: right upper lobe pneumonia. mild left pleural effusion. -Abx day #12 -Levofloxacin 750 mg Q48 h renal dosage -Rocephin 1 g IV (discontinued) -Isolation: discontinued -Bronchoscopy performed on 04/03, samples were obtained for culture. -Post Bronchoscopy CXR: interval improvement in right upper lobe infiltrate. No pneumothorax. -Legionella: negative -CXR (02/10): improving Right upper lobe pneumonia; small left pleural effusion ; left lower lobe airspace disease cannot be excluded. 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 Mayes. -AFB negative x4 7) Hyperkalemia (resolved) -secondary to renal failure -K 4.4 -follow BMPs 8) Anemia, chronic -secondary to CKD -hgb: 8.5 -Hem-Onc consult: hold cyclophosphamide -F/U H/H 9) Depression -Celexa 10) DVT prophylaxis -last PTT 57.8, heparin adjusted as per normogram -PTT check q6 hours, next check: pending (ordered for 15:00) -Heparin 25,000 units at 15.5mls/hr 11) Pt prefers brother Brady as Power of employment attorney -Contact for Brady is [phone]
[2017-02-11] MEDS: Albuterol-Ipratrop 3 mg / 0.5 (3 ml) UD INH SCH ×4 (07:28→19:20)
[2017-02-11 07:58] LABS: CALCIUM 7.8 mg/dL (8.4-10.2); POTASSIUM 4.4 MMOL/L (3.6-5.0)
[2017-02-11 08:17] LABS: HEMATOCRIT 25.6 % (35.0-51.0); MEAN CORPUSCULAR HEMOGLOBIN 30.8 pg (27.0-31.0); MEAN CORPUSCULAR HGB CONC 33.1 g/dL (33.0-37.0); RED CELL DISTRIBUTION WIDTH 14.7 % (11.5-14.5); WHITE BLOOD COUNT 11.3 K/uL (4.8-10.8)
[2017-02-11] MEDS: Pyridoxine 100 mg Tab PO SCH (08:45)
[2017-02-11] MEDS: metOLazone 5 MG TAB PO SCH ×2 (08:46→16:51)
[2017-02-12] MEDS ORDERED: Heparin 25,000units in D5W 250 ML IV SCH (07:00)
[2017-02-12] MEDS: Albuterol-Ipratrop 3 mg / 0.5 (3 ml) UD INH SCH ×4 (07:54→19:31)
[2017-02-12] MEDS: metOLazone 5 MG TAB PO SCH ×2 (08:42→16:13)
[2017-02-12] MEDS: Pyridoxine 100 mg Tab PO SCH (08:43)
--- NOTE | 2017-02-12 09:57 | CP.PCM.PN ---
Subjective - Date & Time of Evaluation Date of Evaluation: 02/12/17 Time of Evaluation: 09:55 - Subjective Subjective: The patient is a 67 y/o homeless male with PMHx remarkable for HTN, ETOH abuse, seizures, COPD, Systolic HF (LVEF 45-50%), 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 The patient was seen and examined at bedside this morning. No acute events overnight. Lying in bed upright in NAD. Reports feeling the same as yesterday but improvement in right upper extremity edema. No new complaints. Reports urinating frequently. OOB/ambulating without dizziness/lightheadedness. Tolerating PO intake without difficulty. Denies fever/chills, headaches, cough, CP/SOB/Palpitations, N/V/D/C, epistaxis, hemoptysis, hematochezia, melena, hematuria, leg pain, numbness/tingling. Objective - Vital Signs/Intake and Output Vital Signs (last 24 hours): Temp Pulse Resp BP Pulse Ox 97.7 F 74 18 155/81 H 98 02/12/17 08:01 02/12/17 09:16 02/12/17 08:01 02/12/17 09:16 02/12/17 08:01 Intake and Output: 02/12/17 02/12/17 06:59 18:59 Intake Total 538 Output Total 1720 Balance -1182 - Medications Medications: Current Medications Albuterol/Ipratropium (Duoneb 3 Mg/0.5 Mg (3 Ml) Ud) 3 ml INH RQID [facility] Last Admin: 02/12/17 07:54 Dose: 3 ml Amlodipine Besylate (Norvasc) 5 mg PO DAILY [facility] Last Admin: 02/11/17 08:44 Dose: 5 mg Citalopram Hydrobromide (Celexa) 20 mg PO DAILY [facility] Last Admin: 02/12/17 08:41 Dose: 20 mg Clonidine HCl (Catapres) 0.3 mg PO TID [facility] Last Admin: 02/12/17 08:40 Dose: 0.3 mg Furosemide (Lasix) 80 mg IV BID [facility] Last Admin: 02/12/17 08:42 Dose: 80 mg Hydralazine HCl (Apresoline) 25 mg PO Q6 [facility] Last Admin: 02/12/17 09:16 Dose: 25 mg Heparin Sodium/Dextrose (Heparin 25,000 Units/250ml In D5w) 250 mls @ 15.5 mls/ hr IV .Q16H8M [facility] PRN Reason: Protocol Last Admin: 02/12/17 07:21 Dose: 15.5 mls/hr Isoniazid (Niazid) 300 mg PO DAILY [facility] Last Admin: 02/12/17 08:41 Dose: 300 mg Labetalol HCl (Trandate) 200 mg PO BID@0900,2100 [facility] Lactic Acid (Lac-Hydrin 12% Lotion (225 G)) 1 applic TOP TID [facility] Last Admin: 02/12/17 08:41 Dose: 1 applic Metolazone (Zaroxolyn) 5 mg PO BID [facility] Last Admin: 02/12/17 08:42 Dose: 5 mg Ondansetron HCl (Zofran Inj) 4 mg IVP Q6 PRN PRN Reason: Nausea/Vomiting Last Admin: 01/31/17 14:22 Dose: 4 mg Prednisone (Prednisone Tab) 40 mg PO DAILY [facility] Last Admin: 02/12/17 08:43 Dose: 40 mg Pyridoxine HCl (Vitamin B6) 100 mg PO DAILY [facility] Last Admin: 02/12/17 08:43 Dose: 100 mg - Labs Labs: 02/11/17 05:30 02/11/17 05:30 PT 11.8 SECONDS (9.6-11.2) H 02/09/17 03:33 INR 1.13 (0.92-1.08) H 02/09/17 03:33 APTT 57.4 SECONDS (23.3-32.5) H 02/12/17 07:00 - Constitutional Appears: No Acute Distress - Head Exam Head Exam: ATRAUMATIC, NORMOCEPHALIC - Eye Exam Eye Exam: EOMI. absent: Periorbital swelling Pupil Exam: PERRL - ENT Exam ENT Exam: Mucous Membranes Moist - Respiratory Exam Respiratory Exam: Wheezes. absent: Accessory Muscle Use, Chest Wall Tenderness , Respiratory Distress Additional comments: bibasilar crackles, mild faint diffuse wheeze - Cardiovascular Exam Cardiovascular Exam: REGULAR RHYTHM. absent: Tachycardia - GI/Abdominal Exam GI & Abdominal Exam: Soft, Normal Bowel Sounds. absent: Distended, Tenderness - Extremities Exam Extremities Exam: Pedal Edema. absent: Calf Tenderness, Tenderness Additional comments: 3+ pitting edema bilaterally. Decreased LE edema. -decreased right upper extremity edema - Neurological Exam Neurological Exam: Alert, Awake, Oriented x3 - Skin Skin Exam: Dry, Intact, Normal Color, Warm Assessment and Plan - Assessment and Plan (Free Text) Assessment: The patient is a 67 y/o homeless male with PMHx remarkable for HTN, ETOH abuse, seizures, COPD, Systolic HF (LVEF 45-50%), 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 Plan: 1) Systolic CHF Exacerbation -pBNP 7860 -Lasix 80mg IV BID -Metolazone 5mg PO BID added as per Dr. Sandoval's recommendations. 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 Kapoor. -Nephrology consult as per Dr. Sandoval: Suggests prednisione, low K diet. Cyclophosphamide held due to multiple lung infiltrates on CT, recommends increasing Lasix dosage to 80mg IV BID. -strict I/Os, possible increase in Lasix dose. -non-ideal candidate for chemo as he is ill and a poor follow up 3) Right Axillary DVT -right upper Ext Doppler US 02/03 showed: possible thrombus formation surrounding PICC line in axillary vein -Follow up right upper ext doppler: nonocclusive thrombus in distal axillary vein, occulsive thrombus in the basilic vein with a PICC line in place -Heparin continued, may consider removing PICC line and using peripheral line instead. -last PTT 57.4, heparin adjusted as per normogram -PTT check q6 hours, next check: pending -Heparin 25,000 units at 15.5mls/hr -picc line will stay for now -f/u Right duplex due to increased RUE edema: redemonstration of nonocclusive thrombus in axillary vein; persistent basilic thrombophlebitis. 4) HCAP -Recent discharge from hospital 01/13 -Afebrile -CXR: right upper lobe pneumonia. mild left pleural effusion. -Abx day #12 -DC'ed Levofloxacin 750 mg Q48 h renal dosage -Rocephin 1 g IV (discontinued) -Isolation: discontinued -Bronchoscopy performed on 02/06, samples were obtained for culture. -Post Bronchoscopy CXR: interval improvement in right upper lobe infiltrate. No pneumothorax. -Legionella: negative -CXR (02/10): improving Right upper lobe pneumonia; small left pleural effusion ; left lower lobe airspace disease cannot be excluded. 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 Mayes. -AFB negative x4 7) Hyperkalemia (resolved) -secondary to renal failure -K 4.4 -follow BMPs 8) Anemia, chronic -secondary to CKD -hgb: 8.5 -Hem-Onc consult: hold cyclophosphamide -F/U CBC 9) Depression -Celexa 10) DVT prophylaxis -last PTT 57.4, heparin adjusted as per normogram -PTT check q6 hours, next check: pending (ordered for 13:00) -Heparin 25,000 units at 15.5mls/hr 11) Pt prefers brother Brady as Power of trade mark attorney -Contact for Brady is [phone]
[2017-02-12] MEDS: Heparin 25,000units in D5W 250 ML IV SCH (12:16)
[2017-02-13] MEDS: Heparin 25,000units in D5W 250 ML IV SCH (06:31)
[2017-02-13 06:43] LABS: HEMATOCRIT 24.9 % (35.0-51.0); MEAN CELL VOLUME 93.4 fl (80.0-94.0); MEAN CORPUSCULAR HEMOGLOBIN 30.5 pg (27.0-31.0); MEAN CORPUSCULAR HGB CONC 32.7 g/dL (33.0-37.0); RED CELL DISTRIBUTION WIDTH 14.7 % (11.5-14.5); WHITE BLOOD COUNT 13.3 K/uL (4.8-10.8)
[2017-02-13 07:02] LABS: CALCIUM 7.9 mg/dL (8.4-10.2); POTASSIUM 4.4 MMOL/L (3.6-5.0)
--- NOTE | 2017-02-13 08:03 | CP.PCM.PN ---
Subjective - Date & Time of Evaluation Date of Evaluation: 02/13/17 Time of Evaluation: 07:59 - Subjective Subjective: pt seen and examined at bedside this morning. NAEO. Lying in bed comfortably, NAD. No new complaints. Reports feeling better overall. Reports his legs feel less swollen today. Skin dryness improved with TID ointment application. OOB/ ambulating without dizziness. Reports urinating every 20-30 minutes. Denies fever/chills, headaches, changes in vision, CP/SOB/palpitations, N/V/D/C, bleeding episodes, urinary symptoms, leg pain. Objective - Vital Signs/Intake and Output Vital Signs (last 24 hours): Temp Pulse Resp BP Pulse Ox 97.7 F 110 H 18 164/92 H 95 02/13/17 05:03 02/13/17 05:03 02/13/17 05:03 02/13/17 05:03 02/13/17 05:03 - Medications Medications: Current Medications Albuterol/Ipratropium (Duoneb 3 Mg/0.5 Mg (3 Ml) Ud) 3 ml INH RQID [facility] Last Admin: 02/12/17 19:31 Dose: 3 ml Amlodipine Besylate (Norvasc) 5 mg PO DAILY [facility] Last Admin: 02/12/17 09:15 Dose: 5 mg Citalopram Hydrobromide (Celexa) 20 mg PO DAILY [facility] Last Admin: 02/12/17 08:41 Dose: 20 mg Clonidine HCl (Catapres) 0.3 mg PO TID [facility] Last Admin: 02/12/17 16:14 Dose: 0.3 mg Furosemide (Lasix) 80 mg IV BID [facility] Last Admin: 02/12/17 16:14 Dose: 80 mg Hydralazine HCl (Apresoline) 25 mg PO Q6 [facility] Last Admin: 02/13/17 04:33 Dose: 25 mg Heparin Sodium/Dextrose (Heparin 25,000 Units/250ml In D5w) 250 mls @ 15.5 mls/ hr IV .Q16H8M [facility] PRN Reason: Protocol Last Admin: 02/13/17 06:31 Dose: 15.5 mls/hr Isoniazid (Niazid) 300 mg PO DAILY [facility] Last Admin: 02/12/17 08:41 Dose: 300 mg Lactic Acid (Lac-Hydrin 12% Lotion (225 G)) 1 applic TOP TID [facility] Last Admin: 02/12/17 16:13 Dose: 1 applic Metolazone (Zaroxolyn) 5 mg PO BID [facility] Last Admin: 02/12/17 16:13 Dose: 5 mg Ondansetron HCl (Zofran Inj) 4 mg IVP Q6 PRN PRN Reason: Nausea/Vomiting Last Admin: 01/31/17 14:22 Dose: 4 mg Prednisone (Prednisone Tab) 40 mg PO DAILY [facility] Last Admin: 02/12/17 08:43 Dose: 40 mg Pyridoxine HCl (Vitamin B6) 100 mg PO DAILY [facility] Last Admin: 02/12/17 08:43 Dose: 100 mg - Labs Labs: 02/13/17 06:15 02/13/17 06:15 PT 11.8 SECONDS (9.6-11.2) H 02/09/17 03:33 INR 1.13 (0.92-1.08) H 02/09/17 03:33 APTT 57.7 SECONDS (23.3-32.5) H 02/12/17 18:20 - Constitutional Appears: Non-toxic, No Acute Distress - Eye Exam Eye Exam: EOMI. absent: Scleral icterus Pupil Exam: PERRL - ENT Exam ENT Exam: Mucous Membranes Moist - Respiratory Exam Respiratory Exam: Wheezes, NORMAL BREATHING PATTERN. absent: Clear to Ausculation Bilateral, Rales, Respiratory Distress Additional comments: expiratory wheezes appreciated diffusely posteriorly. No change in lung sounds since prior examination. - Cardiovascular Exam Cardiovascular Exam: REGULAR RHYTHM, RRR, +S1, +S2. absent: Gallop, JVD, Rubs, Murmur - GI/Abdominal Exam GI & Abdominal Exam: Soft, Normal Bowel Sounds. absent: Distended, Guarding, Rigid, Tenderness, Rebound - Extremities Exam Extremities Exam: Full ROM, Pedal Edema. absent: Calf Tenderness - Back Exam Back Exam: NORMAL INSPECTION. absent: rash noted - Neurological Exam Neurological Exam: Alert, Awake, CN II-XII Intact, Oriented x3 - Psychiatric Exam Psychiatric exam: Normal Affect, Normal Mood - Skin Skin Exam: Dry, Intact, Normal Color, Warm Assessment and Plan - Assessment and Plan (Free Text) Assessment: 67 y/o homeless male with PMHx remarkable for HTN, ETOH abuse, seizures, COPD, Systolic HF (LVEF 45-50%), SHERRY secondary to Khanh Granulomatosis vasculitis admitted for CHF exacerbation and acute on CKD Plan: 1) Systolic CHF Exacerbation -pBNP 7860 -daily weight checks: 185lbs (-4lb) -voided: 2100 -cardiology consult ordered 2) Acute on CKD Stage IV - 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 -strict I/Os -non-ideal candidate for chemo as he is ill and a poor follow up 3) Right Axillary DVT -right upper Ext Doppler US 02/03 showed: possible thrombus formation surrounding PICC line in axillary vein -Follow up right upper ext doppler: nonocclusive thrombus in distal axillary vein, occulsive thrombus in the basilic vein with a PICC line in place -f/u Right duplex due to increased RUE edema: redemonstration of nonocclusive thrombus in axillary vein; persistent basilic thrombophlebitis. -Heparin to be held today, possible PICC line removal this afternoon or tomorrow AM. 4) HCAP (resolved) -Afebrile -Abx: discontinued -Isolation: discontinued -Bronchoscopy performed on 02/06, samples were obtained for culture. -Post Bronchoscopy CXR: interval improvement in right upper lobe infiltrate. No pneumothorax. -Legionella: negative -CXR (02/10): improving Right upper lobe pneumonia; small left pleural effusion ; left lower lobe airspace disease cannot be excluded. 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 Mayes. -AFB negative x4 7) Hyperkalemia (resolved) -secondary to renal failure -K 4.4 -follow BMPs 8) Anemia, chronic -secondary to CKD -hgb: 8.5 -Hem-Onc consult: hold cyclophosphamide -F/U H/H 9) Depression -Celexa 10) DVT prophylaxis -Heparin held due to PICC line removal today or tomorrow AM. 11) Pt prefers brother Brady as Power of wage conciliator -Contact for Brady is [phone]
[2017-02-13] MEDS: Albuterol-Ipratrop 3 mg / 0.5 (3 ml) UD INH SCH ×4 (08:40→20:06)
[2017-02-13] MEDS: Pyridoxine 100 mg Tab PO SCH (08:59)
[2017-02-13] MEDS: metOLazone 5 MG TAB PO SCH (09:00)
--- NOTE | 2017-02-13 15:23 | PCM.IRP ---
History of Present Illness - History of Present Illness History of Present Illness: IR requested to remove picc from right arm. Pt with right upper extremity DVT secondary to picc. Picc removed at bedside. Dressing applied. Objective - Vital Signs/Intake and Output Vital Signs (last 24 hours): Vital Signs - 24 hr 02/12/17 02/12/17 02/12/17 15:46 16:13 16:14 Temperature 98.4 F Pulse Rate 74 74 74 Respiratory 20 Rate Blood Pressure 139/68 139/68 139/68 O2 Sat by Pulse 96 Oximetry 02/12/17 02/12/17 02/13/17 21:00 22:20 00:07 Temperature 98.2 F Pulse Rate 79 98 H 88 Respiratory 18 Rate Blood Pressure 152/90 H 156/72 H O2 Sat by Pulse 96 Oximetry 02/13/17 02/13/17 02/13/17 01:00 04:33 05:03 Temperature 98.2 F 97.7 F Pulse Rate 88 108 H 110 H Respiratory 18 18 Rate Blood Pressure 156/72 H 164/92 H 164/92 H O2 Sat by Pulse 96 95 Oximetry 02/13/17 02/13/17 02/13/17 07:59 08:14 08:19 Temperature 97.9 F 97.9 F Pulse Rate 105 H 77 105 H Respiratory 18 18 Rate Blood Pressure 168/88 H 168/88 H O2 Sat by Pulse 96 96 Oximetry 02/13/17 02/13/17 02/13/17 09:00 09:01 09:54 Temperature Pulse Rate 105 H 105 H Respiratory Rate Blood Pressure 168/88 H 168/88 H 168/88 H O2 Sat by Pulse Oximetry 02/13/17 02/13/17 02/13/17 09:55 12:00 12:59 Temperature 97.3 F L Pulse Rate 105 H 84 84 Respiratory 18 Rate Blood Pressure 168/88 H 129/67 126/67 O2 Sat by Pulse 95 Oximetry 02/13/17 13:00 Temperature 97.3 F L Pulse Rate 84 Respiratory 18 Rate Blood Pressure 126/67 O2 Sat by Pulse 95 Oximetry Intake and Output (last 12 hours): Intake & Output 02/12/17 02/13/17 02/13/17 18:59 06:59 18:59 Other: # Bowel Movements 1 - Medications Medications: Current Medications Albuterol/Ipratropium (Duoneb 3 Mg/0.5 Mg (3 Ml) Ud) 3 ml INH RQID [facility] Last Admin: 02/13/17 11:32 Dose: 3 ml Amlodipine Besylate (Norvasc) 5 mg PO DAILY [facility] Last Admin: 02/13/17 09:55 Dose: 5 mg Citalopram Hydrobromide (Celexa) 20 mg PO DAILY [facility] Last Admin: 02/13/17 08:59 Dose: 20 mg Clonidine HCl (Catapres) 0.3 mg PO TID [facility] Last Admin: 02/13/17 12:59 Dose: 0.3 mg Enoxaparin Sodium (Lovenox) 84 mg SC Q12 [facility] PRN Reason: Protocol Hydralazine HCl (Apresoline) 25 mg PO Q6 [facility] Last Admin: 02/13/17 09:00 Dose: 25 mg Isoniazid (Niazid) 300 mg PO DAILY [facility] Last Admin: 02/13/17 08:59 Dose: 300 mg Lactic Acid (Lac-Hydrin 12% Lotion (225 G)) 1 applic TOP TID [facility] Last Admin: 02/13/17 12:59 Dose: 1 applic Ondansetron HCl (Zofran Inj) 4 mg IVP Q6 PRN PRN Reason: Nausea/Vomiting Last Admin: 01/31/17 14:22 Dose: 4 mg Prednisone (Prednisone Tab) 40 mg PO DAILY [facility] Last Admin: 02/13/17 09:00 Dose: 40 mg Pyridoxine HCl (Vitamin B6) 100 mg PO DAILY [facility] Last Admin: 02/13/17 08:59 Dose: 100 mg - Labs Labs (last 24 hours): Laboratory Results - last 24 hr 02/12/17 02/13/17 18:20 06:15 WBC 13.3 H RBC 2.66 L Hgb 8.1 L Hct 24.9 L MCV 93.4 MCH 30.5 MCHC 32.7 L RDW 14.7 H Plt Count 217 APTT 57.7 H Sodium 134 Potassium 4.4 Chloride 101 Carbon Dioxide 24 Anion Gap 14 BUN 90 H Creatinine 2.4 H Est GFR ( Amer) 33 Est GFR (Non-Af Amer) 27 Random Glucose 83 Calcium 7.9 L
[2017-02-13] MEDS: Enoxaparin 80 mg Syringe SC SCH (17:25)
[2017-02-14 06:57] LABS: HEMATOCRIT 28.1 % (35.0-51.0); MEAN CELL VOLUME 93.9 fl (80.0-94.0); MEAN CORPUSCULAR HEMOGLOBIN 30.8 pg (27.0-31.0); MEAN CORPUSCULAR HGB CONC 32.8 g/dL (33.0-37.0); RED CELL DISTRIBUTION WIDTH 15.2 % (11.5-14.5); WHITE BLOOD COUNT 13.4 K/uL (4.8-10.8)
[2017-02-14 07:00] LABS: CALCIUM 8.4 mg/dL (8.4-10.2); POTASSIUM 4.5 MMOL/L (3.6-5.0)
[2017-02-14] MEDS: Albuterol-Ipratrop 3 mg / 0.5 (3 ml) UD INH SCH ×3 (08:02→17:10)
--- NOTE | 2017-02-14 09:03 | CP.PCM.PN ---
Subjective - Date & Time of Evaluation Date of Evaluation: 02/14/17 Time of Evaluation: 08:56 - Subjective Subjective: pt seen and examined at bedside today. NAEO. Lying upright in bed comfortably in NAD. Urinating less frequently today since diuretics were stopped yesterday. Complaining of worsening pedal edema since yesterday. No other complaints. OOB/ ambulating with discomfort due to pedal edema. No other complaints. Reports he wants to go back to [place] this winter and stay with his family. Denies fever/ chills, headaches, changes in vision, CP/SOB/GUIDRY, N/V/D/C, bleeding episodes, urinary symptoms, leg/arm pain. Objective - Vital Signs/Intake and Output Vital Signs (last 24 hours): Temp Pulse Resp BP Pulse Ox 97.4 F L 106 H 18 167/84 H 96 02/14/17 05:00 02/14/17 05:04 02/14/17 05:00 02/14/17 05:04 02/14/17 05:00 - Medications Medications: Current Medications Albuterol/Ipratropium (Duoneb 3 Mg/0.5 Mg (3 Ml) Ud) 3 ml INH RQID [facility] Last Admin: 02/14/17 08:02 Dose: 3 ml Amlodipine Besylate (Norvasc) 5 mg PO DAILY [facility] Last Admin: 02/13/17 09:55 Dose: 5 mg Citalopram Hydrobromide (Celexa) 20 mg PO DAILY [facility] Last Admin: 02/13/17 08:59 Dose: 20 mg Clonidine HCl (Catapres) 0.3 mg PO TID [facility] Last Admin: 02/13/17 17:24 Dose: 0.3 mg Enoxaparin Sodium (Lovenox) 80 mg SC DAILY [facility] PRN Reason: Protocol Last Admin: 02/13/17 17:25 Dose: 80 mg Hydralazine HCl (Apresoline) 25 mg PO Q6 [facility] Last Admin: 02/14/17 05:04 Dose: 25 mg Isoniazid (Niazid) 300 mg PO DAILY [facility] Last Admin: 02/13/17 08:59 Dose: 300 mg Lactic Acid (Lac-Hydrin 12% Lotion (225 G)) 1 applic TOP TID [facility] Last Admin: 02/13/17 17:24 Dose: 1 applic Ondansetron HCl (Zofran Inj) 4 mg IVP Q6 PRN PRN Reason: Nausea/Vomiting Last Admin: 01/31/17 14:22 Dose: 4 mg Prednisone (Prednisone Tab) 40 mg PO DAILY [facility] Last Admin: 02/13/17 09:00 Dose: 40 mg Pyridoxine HCl (Vitamin B6) 100 mg PO DAILY [facility] Last Admin: 02/13/17 08:59 Dose: 100 mg Warfarin Sodium (Coumadin) 5 mg PO ONCE ONE PRN Reason: Protocol Stop: 02/14/17 09:01 - Labs Labs: 02/14/17 06:15 02/14/17 06:15 PT 10.5 SECONDS (9.6-11.2) 02/14/17 06:15 INR 1.01 (0.92-1.08) 02/14/17 06:15 APTT 25.1 SECONDS (23.3-32.5) D 02/13/17 19:10 - Constitutional Appears: Non-toxic, No Acute Distress - Eye Exam Eye Exam: EOMI. absent: Conjunctival injection, Periorbital swelling, Scleral icterus Pupil Exam: PERRL - ENT Exam ENT Exam: Mucous Membranes Moist - Neck Exam Neck Exam: Full ROM, Normal Inspection - Respiratory Exam Respiratory Exam: Rhonchi, Wheezes. absent: Accessory Muscle Use, Chest Wall Tenderness, Clear to Ausculation Bilateral Additional comments: worsened wheezes and rhonic diffusely on posterior lung [place]. - Cardiovascular Exam Cardiovascular Exam: REGULAR RHYTHM, +S1, +S2. absent: Tachycardia, Gallop, JVD , Rubs, Murmur - GI/Abdominal Exam GI & Abdominal Exam: Soft, Normal Bowel Sounds. absent: Distended, Firm, Guarding, Rigid, Tenderness - Extremities Exam Extremities Exam: Pedal Edema. absent: Calf Tenderness, Tenderness Additional comments: 4+ pitting pedal edema bilaterally. Doubled in size since yesterday. Skin intact , well moisturized. 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 -strict I/Os -non-ideal candidate for chemo as he is ill and a poor follow up 3) Right Axillary DVT -right upper Ext Doppler US 02/03 showed: possible thrombus formation surrounding PICC line in axillary vein -Follow up right upper ext doppler: nonocclusive thrombus in distal axillary vein, occulsive thrombus in the basilic vein with a PICC line in place -f/u Right duplex due to increased RUE edema: redemonstration of nonocclusive thrombus in axillary vein; persistent basilic thrombophlebitis. -PICC line removed, started on 80mg Lovenox q daily as pt has an adjust CrCl of 30 -Warfarin bridging started today, first dose of 5mg 4) HCAP (resolved) -Afebrile -Abx: discontinued -Isolation: discontinued -Bronchoscopy performed on 02/06, samples were obtained for culture. -Post Bronchoscopy CXR: interval improvement in right upper lobe infiltrate. No pneumothorax. -Legionella: negative -CXR (02/10): improving Right upper lobe pneumonia; small left pleural effusion ; left lower lobe airspace disease cannot be excluded. 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 Mayes. -AFB negative x4 7) Hyperkalemia (resolved) -secondary to renal failure -K 4.4 -follow BMPs 8) Anemia, chronic -secondary to CKD -hgb: 8.5 -Hem-Onc consult: hold cyclophosphamide -F/U H/H 9) Depression -Celexa 10) DVT prophylaxis -Lovenox 80mg SC q daily -Warfarin 5mg PO 11) Pt prefers brother Brady as Power of attorney law clerk -Contact for Brady is [phone]
[2017-02-14 09:35] VITALS: RESP 20
[2017-02-14] MEDS: Pyridoxine 100 mg Tab PO SCH (09:54)
[2017-02-14] MEDS: Enoxaparin 80 mg Syringe SC SCH (09:54)
--- NOTE | 2017-02-14 13:41 | CP.PCM.DIS ---
Provider - Provider Date of Admission: 01/28/17 18:33 Attending physician: Aaliyah Knott MD Time Spent in preparation of Discharge (in minutes): 35 Diagnosis - Discharge Diagnosis (1) Acute on chronic renal failure Status: Chronic Hospital Course - Lab Results Lab Results: Micro Results 02/04/17 09:10 Sputum Gram Stain - Final 02/04/17 09:10 Sputum Sputum Culture - Final Yeast Species 01/28/17 18:55 Blood-Venous Blood Culture - Final NO GROWTH AFTER 5 DAYS 01/28/17 18:55 Blood-Venous Gram Stain - Final TEST NOT PERFORMED Most Recent Lab Values WBC 13.4 K/uL (4.8-10.8) H 02/14/17 06:15 RBC 2.99 Mil/uL (4.40-5.90) L 02/14/17 06:15 Hgb 9.2 g/dL (12.0-18.0) L 02/14/17 06:15 Hct 28.1 % (35.0-51.0) L 02/14/17 06:15 MCV 93.9 fl (80.0-94.0) 02/14/17 06:15 MCH 30.8 pg (27.0-31.0) 02/14/17 06:15 MCHC 32.8 g/dL (33.0-37.0) L 02/14/17 06:15 RDW 15.2 % (11.5-14.5) H 02/14/17 06:15 Plt Count 241 K/uL (130-400) 02/14/17 06:15 MPV 7.5 fl (7.2-11.7) 02/05/17 06:09 Neut % (Auto) 76.2 % (50.0-75.0) H 02/05/17 06:09 Lymph % (Auto) 16.3 % (20.0-40.0) L 02/05/17 06:09 Dawson % (Auto) 7.3 % (0.0-10.0) 02/05/17 06:09 Eos % (Auto) 0.0 % (0.0-4.0) 02/05/17 06:09 Baso % (Auto) 0.2 % (0.0-2.0) 02/05/17 06:09 Neut # 5.9 K/uL (1.8-7.0) 02/05/17 06:09 Lymph # 1.3 K/uL (1.0-4.3) 02/05/17 06:09 Dawson # 0.6 K/uL (0.0-0.8) 02/05/17 06:09 Eos # 0.0 K/uL (0.0-0.7) 02/05/17 06:09 Baso # 0.0 K/uL (0.0-0.2) 02/05/17 06:09 PT 10.5 SECONDS (9.6-11.2) 02/14/17 06:15 INR 1.01 (0.92-1.08) 02/14/17 06:15 APTT 25.1 SECONDS (23.3-32.5) D 02/13/17 19:10 Sodium 136 mmol/l (132-148) 02/14/17 06:15 Potassium 4.5 MMOL/L (3.6-5.0) 02/14/17 06:15 Chloride 100 mmol/L (98-107) 02/14/17 06:15 Carbon Dioxide 24 mmol/L (22-30) 02/14/17 06:15 Anion Gap 16 (10-20) 02/14/17 06:15 BUN 98 mg/dl (9-20) H 02/14/17 06:15 Creatinine 2.4 mg/dL (0.8-1.5) H 02/14/17 06:15 Est GFR ( Amer) 33 02/14/17 06:15 Est GFR (Non-Af Amer) 27 02/14/17 06:15 POC Glucose (mg/dL) 203 mg/dL (65-110) H 02/07/17 21:11 Random Glucose 81 mg/dL (75-110) 02/14/17 06:15 Calcium 8.4 mg/dL (8.4-10.2) 02/14/17 06:15 Ionized Calcium 4.1 mg/dL (4.80-5.60) L 02/02/17 11:00 Phosphorus 6.3 mg/dl (2.5-4.5) H 02/03/17 05:20 Magnesium 1.9 MG/DL (1.6-2.3) 02/03/17 18:00 Total Bilirubin 0.1 mg/dl (0.2-1.3) L 02/10/17 06:30 AST 20 U/L (17-59) 02/10/17 06:30 ALT 15 U/L (21-72) L D 02/10/17 06:30 Alkaline Phosphatase 56 U/L (38-126) 02/10/17 06:30 Troponin I 0.0210 ng/mL (0.00-0.120) 01/28/17 17:10 C-React Prot High Sens > 15.00 mg/L (1.00-3.00) H 01/31/17 16:51 NT-Pro-B Natriuret Pep 6980 pg/ml (0-900) H 02/06/17 06:30 Total Protein 4.9 G/DL (6.3-8.2) L 02/10/17 06:30 Albumin 2.2 g/dL (3.5-5.0) L 02/10/17 06:30 Globulin 2.7 gm/dL (2.2-3.9) 02/10/17 06:30 Albumin/Globulin Ratio 0.8 (1.0-2.1) L 02/10/17 06:30 Triglycerides 99 mg/DL (0-149) D 02/03/17 05:20 Cholesterol 212 mg/dL (0-199) H 02/03/17 05:20 LDL Cholesterol Direct 122 mg/dL (0-129) 02/03/17 05:20 HDL Cholesterol 39 MG/DL (30-70) 02/03/17 05:20 Procalcitonin 0.06 NG/ML (0.19-0.49) L 02/08/17 05:55 PTH Intact Whole Molec 277 pg/mL (14-64) H 02/02/17 11:00 Urine Color Yellow (YELLOW) 01/30/17 06:48 Urine Clarity Clear (Clear) 01/30/17 06:48 Urine pH 6.0 (5.0-8.0) 01/30/17 06:48 Ur Specific [place] 1.011 (1.003-1.030) 01/30/17 06:48 Urine Protein >=500 mg/dL (NEGATIVE) 01/30/17 06:48 Urine Glucose (UA) Neg mg/dL (Normal) 01/30/17 06:48 Urine Ketones Negative mg/dL (NEGATIVE) 01/30/17 06:48 Urine Blood Moderate (NEGATIVE) 01/30/17 06:48 Urine Nitrate Negative (NEGATIVE) 01/30/17 06:48 Urine Bilirubin Negative (NEGATIVE) 01/30/17 06:48 Urine Urobilinogen 0.2-1.0 mg/dL (0.2-1.0) 01/30/17 06:48 Ur Leukocyte Esterase Neg [place]/uL (Negative) 01/30/17 06:48 Urine RBC (Auto) 167 /hpf (0-3) H 01/30/17 06:48 Urine Microscopic WBC 5 /hpf (0-5) 01/30/17 06:48 Ur Squamous Epith Cells < 1 /hpf (0-5) 01/30/17 06:48 Hyaline Casts 3-5 /hpf (0-2) H 01/30/17 06:48 Urine Yeast (Budding) Occ /hpf (NEGATIVE) H 01/30/17 06:48 Ur Random Creatinine 41.9 mg/dL 01/31/17 21:30 U Random Total Protein 4769 mg/g creat (22-128) H 01/31/17 21:30 Ur Random Sodium 73 meq/L 01/30/17 06:48 Ur Random Potassium 38.6 mmol/L 01/30/17 06:48 Vancomycin Trough 16.0 ug/mL (5.0-10.0) H 02/02/17 08:00 Urine Opiates Screen Negative (NEGATIVE) 01/30/17 06:48 Urine Methadone Screen Negative (NEGATIVE) 01/30/17 06:48 Ur Barbiturates Screen Negative (NEGATIVE) 01/30/17 06:48 Ur Phencyclidine Scrn Negative (NEGATIVE) 01/30/17 06:48 Ur Amphetamines Screen Negative (NEGATIVE) 01/30/17 06:48 U Benzodiazepines Scrn Negative (NEGATIVE) 01/30/17 06:48 U Oth Cocaine Metabols Negative (NEGATIVE) 01/30/17 06:48 U Cannabinoids Screen Negative (NEGATIVE) 01/30/17 06:48 ANCA Screen Negative (NEGATIVE) 01/31/17 16:51 c-ANCA Titer TNP 01/31/17 16:51 Proteinase 3 (PR3) <1.0 AI (<1.0) 01/31/17 16:51 p-ANCA Titer TNP 01/31/17 16:51 Atypical p-ANCA Titer TNP 01/31/17 16:51 Myeloperoxidase Ab <1.0 AI (<1.0) 01/31/17 16:51 Urine Legionella Ag Not detected (Not Detected) 02/02/17 18:01 Blood Type A POSITIVE 01/28/17 18:45 Antibody Screen Negative 01/28/17 18:45 Crossmatch See Detail 01/28/17 18:45 BBK History Checked Patient has bt 01/28/17 18:45 - Hospital Course Hospital Course: 67 y/o homeless male with PMHx remarkable for HTN, ETOH abuse, seizures, COPD, Systolic HF (LVEF 45-50%), 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 Pt was started on Lasix and Predisone for SHERRY and fluid retention. During hospital stay he also was diagnosed with HCAP. He had a bronchoscopy which showed a yeast species. After a course of abx and bronch, his condition improved. Pt reported obvious improvement in his SOB, and was able to sleep and ambulate without GUIDRY or additional O2. Little or no improvement in peripheral edema even when on dual diuretic therapy. Pt also had a PICC line put in for potential cyclophosphamide tx but was an unfavorable candidate. He suffered from an axillary DVT and was started on heparin, then switched to Lovenox and began bridging with warfarin. Pt had an uneventful hospital stay and was discharged in stable condition with an appointment on February 28 at the [facility]. Prescriptions on Discharge: Lovenox 80mg QD Warfarin 5mg QD Prednisone 20mg QD Lasix 80mg BID Follow up CBC/BMP/PT/INR Discharge Exam - Head Exam Head Exam: ATRAUMATIC, NORMOCEPHALIC - Eye Exam Eye Exam: EOMI Pupil Exam: PERRL - ENT Exam ENT Exam: Mucous Membranes Moist - Respiratory Exam Respiratory Exam: Rales, Rhonchi, Wheezes. absent: Accessory Muscle Use, Chest Wall Tenderness, Clear to PA & Lateral, Respiratory Distress - Cardiovascular Exam Cardiovascular Exam: REGULAR RHYTHM, RRR, +S1, +S2. absent: Tachycardia, Clicks , Gallop, JVD, Rubs - GI/Abdominal Exam GI & Abdominal Exam: Normal Bowel Sounds, Soft, Unremarkable. absent: Distended , Tenderness Discharge Plan - Discharge Medications Prescriptions: Furosemide [Lasix] 80 mg PO BID #60 tablet NS - Follow Up Plan Condition: FAIR Disposition: HOME/ ROUTINE Additional Instructions: come in daily for Lovenox dose Follow up PT/INR Follow up CBC/BMP Follow up appointment with Dr. Carty @ [facility] on 02/28 Any worsening of symptoms, such as shortness of breath, edema, bleeding, return to the ER.
[2017-02-14 16:08] VITALS: BP 138/78; PULSE 83; O2SAT 96
[2017-02-14 16:38] VITALS: TEMP 97.7
== END 2017-02-14 20:15 | disposition home or self-care (01) | DRG 550 ==
LOC: H.ER 16:00 → H.ERHOLD 18:33 → H.TEL 21:27 → UNDODISIN 02-14 14:00
PROVIDERS: ADMIT Family Medicine Geriatric Medicine; ATTEND Family Medicine Geriatric Medicine
PROC: 02HV33Z Insertion of Infusion Device into Superior Vena Cava, Percutaneous Approach (ICD-10-PCS; 2017-01-31)
PROC: B518ZZA Fluoroscopy of Superior Vena Cava, Guidance (ICD-10-PCS; 2017-01-31)
PROC: B548ZZA Ultrasonography of Superior Vena Cava, Guidance (ICD-10-PCS; 2017-01-31)
PROC: 0B948ZX Drainage of Right Upper Lobe Bronchus, Via Natural or Artificial Opening Endoscopic, Diagnostic (ICD-10-PCS; 2017-02-06)
PROC: 0BBC8ZX Excision of Right Upper Lung Lobe, Via Natural or Artificial Opening Endoscopic, Diagnostic (ICD-10-PCS; principal; 2017-02-06 07:45)
PROC: 02PYX3Z Removal of Infusion Device from Great Vessel, External Approach (ICD-10-PCS; 2017-02-13)
DX: I13.0 Hypertensive heart and chronic kidney disease with heart failure and stage 1 through stage 4 chronic kidney disease, or unspecified chronic kidney disease (principal); I50.23 Acute on chronic systolic (congestive) heart failure; N17.9 Acute kidney failure, unspecified; M31.31 Wegener's granulomatosis with renal involvement; J18.9 Pneumonia, unspecified organism; I82.621 Acute embolism and thrombosis of deep veins of right upper extremity; N05.9 Unspecified nephritic syndrome with unspecified morphologic changes; N18.4 Chronic kidney disease, stage 4 (severe); E87.5 Hyperkalemia; T82.868A Thrombosis due to vascular prosthetic devices, implants and grafts, initial encounter; J44.0 Chronic obstructive pulmonary disease with (acute) lower respiratory infection; D63.1 Anemia in chronic kidney disease; F32.9 Major depressive disorder, single episode, unspecified; F10.10 Alcohol abuse, uncomplicated; F17.210 Nicotine dependence, cigarettes, uncomplicated; Z59.0 Homelessness; G40.909 Epilepsy, unspecified, not intractable, without status epilepticus; Y95 Nosocomial condition; Y84.8 Other medical procedures as the cause of abnormal reaction of the patient, or of later complication, without mention of misadventure at the time of the procedure; R76.11 Nonspecific reaction to tuberculin skin test without active tuberculosis

== ENCOUNTER 2017-02-14 20:31 | Inpatient (IN) | payer SELFPAY ==
[2017-02-14 20:31] VITALS: BMI 26.4
[2017-02-14 21:27] LABS: BASO % 0.1 % (0.0-2.0); EOS % 0.3 % (0.0-4.0); HEMATOCRIT 23.9 % (35.0-51.0); LYMPH # 0.6 K/uL (1.0-4.3); LYMPH % 5.5 % (20.0-40.0); MEAN CELL VOLUME 93.3 fl (80.0-94.0); MEAN CORPUSCULAR HEMOGLOBIN 31.4 pg (27.0-31.0); MEAN CORPUSCULAR HGB CONC 33.7 g/dL (33.0-37.0); MEAN PLATELET VOLUME 8.5 fl (7.2-11.7); MONO # 0.3 K/uL (0.0-0.8); MONO % 2.9 % (0.0-10.0); NEUT # 9.9 K/uL (1.8-7.0); NEUT % 91.2 % (50.0-75.0); PLATELET COUNT 217 K/uL (130-400); RED CELL DISTRIBUTION WIDTH 14.9 % (11.5-14.5); WHITE BLOOD COUNT 10.8 K/uL (4.8-10.8)
[2017-02-14 21:36] LABS: CALCIUM 8.1 mg/dL (8.4-10.2); POTASSIUM 5.4 MMOL/L (3.6-5.0)
--- NOTE | 2017-02-14 21:36 | ED PDOC ---
HPI: SOB/CHF/COPD Time Seen by Provider: 02/14/17 20:51 Chief Complaint (Nursing): Shortness Of Breath Chief Complaint (Provider): Shortness of Breath History Per: Patient History/Exam Limitations: no limitations Onset/Duration Of Symptoms: Days (today) Current Symptoms Are (Timing): Still Present Exacerbating Factor(s): Exertion Associated Symptoms: Ankle/Leg Swelling Additional Complaint(s): Иван Merritt is a 67 year old male, with a past medical history inclusive of CHF, HTN, COPD, anemia and CKD, who presents to the ED on 02/14/17 with complaints of moderate shortness of breath. Patient reports having been discharged from the hospital this morning where he had been admitted for both CHF exacerbation and acute on chronic renal failure, but that upon leaving the hospital he was unable to walk more than 1 block without becoming acutely short of breath. Associated b/l leg pain (right greater than left) and swelling also reported, with patient returning to ED secondary to feeling as if he is unable to be at home alone. Of note, patient is already receiving anticoagulants for the treatment of a DVT within his RUE. PMD: unable to recall Past Medical History Reviewed: Historical Data, Nursing Documentation, Vital Signs Vital Signs: Last Vital Signs Temp 98.2 F 02/14/17 20:46 Pulse 88 02/14/17 20:46 Resp 16 02/14/17 20:46 BP 139/75 02/14/17 20:46 Pulse Ox 97 02/14/17 22:23 - Medical History PMH: Anemia, Anxiety, Arthritis, CHF, COPD, Depression, Deep Vein Thrombosis ( RUE), HTN, Pneumonia, Chronic Kidney Disease, Seizures Denies: HIV - Surgical History Surgical History: Denies: Coronary Stent - Family History Family History: States: Unknown Family Hx - Social History Ex-Smoker (has not smoked in the last 12 months): Yes Alcohol: Other (yes) Drugs: Denies - Immunization History Hx Tetanus Toxoid Vaccination: No Hx Influenza Vaccination: No Hx Pneumococcal Vaccination: No - Home Medications Home Medications: Ambulatory Orders Medication Instructions Recorded Labetalol [Trandate] 200 mg PO BID@0900,2100 #60 tab 01/12/17 predniSONE [predniSONE Tab] 20 mg PO DAILY #7 tab 01/12/17 Citalopram [celEXA] 20 mg PO DAILY #30 tab 02/14/17 Furosemide [Lasix] 80 mg PO BID #60 tablet NS 02/14/17 amLODIPine [Norvasc] 10 mg PO DAILY #30 tab 02/14/17 cloNIDine [Catapres] 0.3 mg PO TID #90 tab 02/14/17 hydrALAZINE [Apresoline] 20 mg PO Q8 #90 tab 02/14/17 - Allergies Allergies/Adverse Reactions: Allergies Allergy/AdvReac Type Severity Reaction Status Date / Time sulfamethoxazole Allergy RASH Verified 02/14/17 20:45 [From ] trimethoprim [From ] Allergy RASH Verified 02/14/17 20:45 Review of Systems ROS Statement: Except As Marked, All Systems Reviewed And Found Negative Cardiovascular: Positive for: Edema (b/l LE) Respiratory: Positive for: Shortness of Breath, SOB with Exertion Musculoskeletal: Positive for: Leg Pain (b/l) Physical Exam - Reviewed Nursing Documentation Reviewed: Yes Vital Signs Reviewed: Yes - Physical Exam Appears: Positive for: Non-toxic, No Acute Distress Head Exam: Positive for: ATRAUMATIC, NORMOCEPHALIC Skin: Positive for: Normal Color, Warm, Dry Eye Exam: Positive for: Normal appearance, PERRL Neck: Positive for: Normal, Painless ROM, Supple Cardiovascular/Chest: Positive for: Regular Rate, Rhythm, Edema (noted to b/l knees, pitting). Negative for: Murmur Respiratory: Positive for: Normal Breath Sounds. Negative for: Rales, Rhonchi, Wheezing, Respiratory Distress Gastrointestinal/Abdominal: Positive for: Normal Exam, Soft. Negative for: Tenderness Extremity: Positive for: Normal ROM, Calf Tenderness (b/l, right greater than left) Neurologic/Psych: Positive for: Alert, Oriented - Laboratory Results Result Diagrams: 02/14/17 21:15 02/14/17 21:15 - ECG O2 Sat by Pulse Oximetry: 97 (RA) Pulse Ox Interpretation: Normal (R) Medical Decision Making Medical Decision Makin:51 Initial Impression: CHF exacerbation, possible pulmonary embolism though patient is already being anticoagulated for a RUE DVT. Previous records reviewed: 01/30/17 ED Evaluation and subsequent admission progress notes. Initial Plan: * CT Angio Chest PE Protocol * CXR * Duplex LE Vein, Right * Labs * Troponin I * BNP * Urinalysis * Toradol 15mg IVP * Reevaluation 22:22 Discussed case with Family Practice residents, patient will be hospitalized under their service within [facility] for further treatment of CHF exacerbation. Plan has been discussed with patient, who is in agreement. Condition fair. Scribe Attestation: Documented by Catarina Meyer, acting as a scribe for Vick Smith MD. Provider Scribe Attestation: All medical record entries made by the Scribe were at my direction and personally dictated by me. I have reviewed the chart and agree that the record accurately reflects my personal performance of the history, physical exam, medical decision making, and the department course for this patient. I have also personally directed, reviewed, and agree with the discharge instructions and disposition. Disposition - Clinical Impression Clinical Impression: Congestive heart failure - Patient ED Disposition Is Patient to be Admitted: Yes - Disposition Referrals: Brady Anne MD [Primary Care Provider] - Disposition Time: 22:22 Condition: STABLE - Pt Status Changed To: Hospital Disposition Of: Observation
[2017-02-14 21:48] LABS: TROPONIN I 0.018 ng/mL (0.00-0.120)
[2017-02-14 22:15] LABS: MYELOCYTE 1 % (0-0); NEUTROPHIL 91 % (42-75); TOTAL CELLS COUNTED 100
[2017-02-14 22:17] LABS: GIANT PLATELETS PRESENT; LARGE PLATELETS PRESENT
--- NOTE | 2017-02-14 22:39 | US ---
EXAM: US Duplex Right Lower Extremity Veins CLINICAL HISTORY: 67 years old, male; Signs and symptoms; Other: SOB; Additional info: R/O dvt TECHNIQUE: Real-time ultrasound scan of the veins of the right lower extremity with color Doppler flow, spectral waveform analysis and compression. COMPARISON: US - DUPLEX LOWER EXTRM VEIN BILAT 01/28/2017 5:29:30 PM FINDINGS: Deep veins: Unremarkable. No DVT in the common femoral, femoral, proximal deep femoral or popliteal veins. The veins are compressible with normal color flow and augmentation. Superficial veins: Unremarkable. No thrombus in the visualized greater saphenous vein. Soft tissues: No acute findings. No popliteal cyst. IMPRESSION: Normal right lower extremity duplex venous ultrasound.
--- NOTE | 2017-02-15 02:48 | CP.PCM.HP ---
History of Present Illness - History of Present Illness History of Present Illness: 67 yo homeless M w PMHx of ANCA Vasculitis, DVT of RUE, CKD, HTN, etoh abuse, COPD, and CHF is admitted for worsening SOB likely due to CHF & CKD. Pt states that he experiences mild sob while lying supine, however that it worsens to dyspnea upon exertion, limiting him to being able to walk less than 1 block. He also complains of moderate, nonproductive cough and b/l lower extremity edema associated w leg pain. He denies fevers/chills, dizziness, LOC, headaches, chest pain, or palpitations. During previous hospital stay, pt was placed on anticoagulation for which he will receive a total of 3 months of therapy. He also denies n/v/d/c, abdominal pain, or other myalgias. 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 h/o Alcohol abuse. denies drug use. Homeless FHx: denies Medications: Lovenox 80 QD, Warfarin 5 QD, Prednisone 20 QD, Lasix 80 BID, Clonidine 0.3 PO TID, Celexa 20 QD, Norvasc 5 QD, Pyridoxine 100 QD, Metolazone 5 QD ED course: -CBC -BMP -BNP -Troponin STAT x1 -Toradol 15mg x1 -CXR -LE U/S -CTA Chest -UA Present on Admission - Present on Admission Any Indicators Present on Admission: Yes History of DVT/PE: Yes History of Uncontrolled Diabetes: No Urinary Catheter: No Decubitus Ulcer Present: No Review of Systems - Review of Systems Review of Systems: see HPI Past Patient History - Infectious Disease Hx of Infectious Diseases: None - Past Medical History & Family History Past Medical History?: Yes - Past Social History Alcohol: Other (yes) Drugs: Denies - CARDIAC Hx Congestive Heart Failure: Yes Hx Hypertension: Yes - PULMONARY Hx Chronic Obstructive Pulmonary Disease (COPD): Yes Hx Pneumonia: Yes - NEUROLOGICAL Hx Seizures: Yes - HEENT Hx HEENT Problems: No - RENAL Hx Chronic Kidney Disease: Yes - ENDOCRINE/METABOLIC Hx Endocrine Disorders: No - HEMATOLOGICAL/ONCOLOGICAL Hx Anemia: Yes Hx Human Immunodeficiency Virus (HIV): No - INTEGUMENTARY Hx Dermatological Problems: No - MUSCULOSKELETAL/RHEUMATOLOGICAL Hx Arthritis: Yes - GASTROINTESTINAL Hx Gastrointestinal Disorders: Yes Hx Hemorrhoids: Yes - GENITOURINARY/GYNECOLOGICAL Hx Genitourinary Disorders: No - PSYCHIATRIC Hx Anxiety: Yes Hx Depression: Yes - SURGICAL HISTORY Hx Coronary Stent: No - ANESTHESIA Hx Anesthesia: Yes Hx Anesthesia Reactions: No Meds Allergies/Adverse Reactions: Allergies Allergy/AdvReac Type Severity Reaction Status Date / Time sulfamethoxazole Allergy RASH Verified 02/14/17 20:45 [From ] trimethoprim [From ] Allergy RASH Verified 02/14/17 20:45 Physical Exam - Constitutional Appears: No Acute Distress, Unkempt, Older Than Stated Age - Head Exam Head Exam: ATRAUMATIC, NORMAL INSPECTION - Eye Exam Eye Exam: EOMI Pupil Exam: PERRL - ENT Exam ENT Exam: Mucous Membranes Dry - Neck Exam Neck exam: Positive for: Full Rom. Negative for: Tenderness - Respiratory Exam Respiratory Exam: Clear to Auscultation Bilateral, NORMAL BREATHING PATTERN. absent: Rhonchi, Wheezes - Cardiovascular Exam Cardiovascular Exam: REGULAR RHYTHM - GI/Abdominal Exam GI & Abdominal Exam: Normal Bowel Sounds, Soft. absent: Tenderness - Extremities Exam Extremities exam: Positive for: calf tenderness, pedal edema. Negative for: normal inspection Additional comments: b/l pitting edema to knees; +TTP - Neurological Exam Neurological exam: Alert, CN II-XII Intact, Oriented x3 - Psychiatric Exam Psychiatric exam: Anxious, Normal Mood - Skin Skin Exam: Dry, Intact, Normal Color, Warm Results - Vital Signs Recent Vital Signs: Last Vital Signs Temp 98.6 F 02/15/17 01:19 Pulse 75 02/15/17 01:19 Resp 17 02/15/17 01:19 BP 156/77 H 02/15/17 01:19 Pulse Ox 96 02/15/17 01:19 - Labs Result Diagrams: 02/14/17 21:15 02/14/17 21:15 Assessment & Plan - Assessment and Plan (Free Text) Plan: 67 yo homeless M w PMHx of ANCA Vasculitis, DVT of RUE, CKD, HTN, etoh abuse, COPD, and CHF is admitted for worsening SOB likely due to CHF & CKD 1) SOB; Likely due to exacerbation of Systolic CHF -pBNP: 2490 -Lasix 80mg PO BID -f/u Daily Weights -f/u I/O's -f/u CTA Chest -f/u Cardio Consult -f/u Pulm Consult 2) Acute exacerbation of CKD Stage 4 -GFR 29 -- BUN/Cr 107/2.3 -f/u Nephro Consult -f/u BMP 3) RUE DVT -Will need total of 3 months of anticoagulation, as per previous admission note -Warfarin 5mg PO QD -Lovenox 80mg ---Will f/u morning labs to determine if full dose of Lovenox may be given or not -f/u PT/INR/PTT -f/u Hem/Onc Consult 4) HTN -Hydralazine 25mg PO Q8H -Clonidine 0.3mg PO TID -Norvasc 5mg PO Daily 5) Latent TB -Isoniazid 300mg PO Daily -Pyridoxine 100mg PO Daily -f/u ID Consult 6) Anemia -Chronic, secondary to CKD -H/H: 8.0/23.9 -Cyclophosphamide HELD -f/u H/H 7) Depression -Celexa 20mg PO Daily 8) DVT Prophylaxis -Normal RLE U/S -SCDs -Lovenox 80mg
[2017-02-15 02:55] LABS: RBC URINE 456 /hpf (0-3); URINE BACTERIA RARE (<OCC); URINE BILIRUBIN NEGATIVE (NEGATIVE); URINE BLOOD LARGE (NEGATIVE); URINE COLOR YELLOW (YELLOW); URINE GLUCOSE (UA) NEG (Normal); URINE KETONE NEGATIVE (NEGATIVE); URINE LEUKOCYTE ESTERASE NEG Leu/uL (Negative); URINE PROTEIN 100 mg/dL (NEGATIVE); URINE UROBILINOGEN 0.2-1.0 mg/dL (0.2-1.0); WBC URINE 2 /hpf (0-5)
[2017-02-15 06:14] LABS: CALCIUM 8.3 mg/dL (8.4-10.2); POTASSIUM 5.5 MMOL/L (3.6-5.0)
[2017-02-15 06:24] LABS: PARTIAL THROMBOPLASTIN TIME 26.9 SECONDS (23.3-32.5)
[2017-02-15] MEDS ORDERED: Sod Polystyrene Sulf 15 gm/60 ml Oral Susp PO ONE (06:43)
[2017-02-15] MEDS ORDERED: Sod Polystyrene Sulf 15 gm/60 ml Oral Susp ONE (07:10)
[2017-02-15] MEDS ORDERED: Albuterol-Ipratrop 3 mg / 0.5 (3 ml) UD ONE (08:00)
[2017-02-15] MEDS: Pyridoxine 100 mg Tab PO SCH (08:13)
[2017-02-15] MEDS: metOLazone 5 MG TAB PO SCH ×2 (08:14→17:17)
[2017-02-15] MEDS: Albuterol-Ipratrop 3 mg / 0.5 (3 ml) UD INH SCH ×4 (08:18→19:52)
[2017-02-15] MEDS ORDERED: Enoxaparin 80 mg Syringe SC SCH (09:00)
--- NOTE | 2017-02-15 10:33 | CP.PCM.CON ---
History of Present Illness - History of Present Illness History of Present Illness: This patient who is 67 years old homeless who was discharged yesterday afternoon and he came this morning what he said increasing shortness of breath which has not been changed since he left. 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 Review of Systems - Constitutional Constitutional: As Per HPI - EENT Eyes: As Per HPI - Cardiovascular Cardiovascular: Dyspnea on Exertion, Edema. absent: Chest Pain - Respiratory Respiratory: Dyspnea on Exertion - Gastrointestinal Gastrointestinal: Abdominal Pain. absent: Vomiting - Integumentary Integumentary: As Per HPI - Neurological Neurological: As Per HPI - Psychiatric Psychiatric: As Per HPI Past Patient History - Infectious Disease Hx of Infectious Diseases: None - Past Medical History & Family History Past Medical History?: Yes - Past Social History Alcohol: Other (yes) Drugs: Denies - CARDIAC Hx Cardiac Disorders: Yes (HTN,CHF,DVT) - PULMONARY Hx Respiratory Disorders: Yes (COPD) - NEUROLOGICAL Hx Neurological Disorder: Yes (SEIZURE) - HEENT Hx HEENT Problems: No - RENAL Hx Chronic Kidney Disease: Yes - ENDOCRINE/METABOLIC Hx Endocrine Disorders: No - HEMATOLOGICAL/ONCOLOGICAL Hx Blood Disorders: Yes (ANEMIA) - INTEGUMENTARY Hx Dermatological Problems: No - MUSCULOSKELETAL/RHEUMATOLOGICAL Hx Musculoskeletal Disorders: Yes (ARTHRITIS) - GASTROINTESTINAL Hx Gastrointestinal Disorders: Yes Hx Hemorrhoids: Yes - GENITOURINARY/GYNECOLOGICAL Hx Genitourinary Disorders: No - PSYCHIATRIC Hx Psychophysiologic Disorder: Yes (DEPRESSION) - SURGICAL HISTORY Hx Coronary Stent: No - ANESTHESIA Hx Anesthesia: Yes Hx Anesthesia Reactions: No Meds Allergies/Adverse Reactions: Allergies Allergy/AdvReac Type Severity Reaction Status Date / Time sulfamethoxazole Allergy RASH Verified 02/14/17 20:45 [From ] trimethoprim [From ] Allergy RASH Verified 02/14/17 20:45 - Medications Medications: Current Medications Albuterol/Ipratropium (Duoneb 3 Mg/0.5 Mg (3 Ml) Ud) 3 ml INH RQID [facility] Last Admin: 02/15/17 08:18 Dose: 3 ml Amlodipine Besylate (Norvasc) 5 mg PO DAILY [facility] Last Admin: 02/15/17 08:12 Dose: 5 mg Citalopram Hydrobromide (Celexa) 20 mg PO DAILY [facility] Last Admin: 02/15/17 08:12 Dose: 20 mg Clonidine HCl (Catapres) 0.3 mg PO TID [facility] Last Admin: 02/15/17 08:12 Dose: 0.3 mg Enoxaparin Sodium (Lovenox) 80 mg SC DAILY [facility] PRN Reason: Protocol Furosemide (Lasix) 80 mg PO BID [facility] Last Admin: 02/15/17 08:13 Dose: 80 mg Hydralazine HCl (Apresoline) 25 mg PO Q8 [facility] Last Admin: 02/15/17 08:16 Dose: 25 mg Isoniazid (Niazid) 300 mg PO DAILY [facility] Last Admin: 02/15/17 08:12 Dose: 300 mg Metolazone (Zaroxolyn) 5 mg PO BID [facility] Last Admin: 02/15/17 08:14 Dose: 5 mg Ondansetron HCl (Zofran Inj) 4 mg IVP Q6 PRN PRN Reason: Nausea/Vomiting Prednisone (Prednisone Tab) 40 mg PO DAILY [facility] Last Admin: 02/15/17 08:13 Dose: 40 mg Prednisone (Prednisone Tab) 30 mg PO DAILY [facility] Pyridoxine HCl (Vitamin B6) 100 mg PO DAILY [facility] Last Admin: 02/15/17 08:13 Dose: 100 mg Warfarin Sodium (Coumadin) 5 mg PO QD5 [facility] PRN Reason: Protocol Stop: 02/16/17 17:01 Physical Exam - Constitutional Appears: No Acute Distress - ENT Exam ENT Exam: Mucous Membranes Moist - Respiratory Exam Respiratory Exam: Rhonchi. absent: Chest Wall Tenderness - Cardiovascular Exam Cardiovascular Exam: absent: Rubs - Extremities Exam Extremities exam: Negative for: calf tenderness - Back Exam Back exam: absent: CVA tenderness (L), CVA tenderness (R) - Neurological Exam Neurological exam: Alert Results - Vital Signs Recent Vital Signs: Last Vital Signs Temp 98 F 02/15/17 09:30 Pulse 69 02/15/17 09:30 Resp 17 02/15/17 09:30 BP 152/88 H 02/15/17 09:30 Pulse Ox 95 02/15/17 09:30 - Labs Result Diagrams: 02/14/17 21:15 02/15/17 05:16 Labs: Laboratory Results - last 24 hr 02/15/17 02/15/17 02:35 05:16 PT 10.7 INR 1.03 APTT 26.9 Sodium 134 Potassium 5.5 H Chloride 100 Carbon Dioxide 23 Anion Gap 17 BUN 107 H* Creatinine 2.4 H Est GFR ( Amer) 33 Est GFR (Non-Af Amer) 27 Random Glucose 88 Calcium 8.3 L Urine Color Yellow Urine Clarity Slighty-cloudy Urine pH 5.0 Ur Specific [place] 1.009 Urine Protein 100 Urine Glucose (UA) Neg Urine Ketones Negative Urine Blood Large Urine Nitrate Negative Urine Bilirubin Negative Urine Urobilinogen 0.2-1.0 Ur Leukocyte Esterase Neg Urine RBC (Auto) 456 H Urine Microscopic WBC 2 Ur Squamous Epith Cells < 1 Urine Bacteria Rare Assessment & Plan - Assessment and Plan (Free Text) Assessment: 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 The issue of Cytoxan has to be discussed with the primary care physician and also with the ID regarding the risk of tuberculosis versus the Cytoxan with his disease? So we will debate this issue. And meantime we'll continue current treatment as outlined above
--- NOTE | 2017-02-15 10:33 | RAD ---
HISTORY: SOB COMPARISON: No prior. FINDINGS: LUNGS: Stable, large left lower lobe infiltrate. PLEURA: Stable left pleural effusion. CARDIOVASCULAR: No radiographic findings to suggest acute or significant cardiovascular disease. OSSEOUS STRUCTURES: No significant abnormalities. VISUALIZED UPPER ABDOMEN: Normal. OTHER FINDINGS: None. IMPRESSION: No significant interval change compared to the prior examination(s). Persistent left lower lobe infiltrate/left pleural effusion.
--- NOTE | 2017-02-15 10:45 | CP.PCM.CON ---
History of Present Illness - History of Present Illness History of Present Illness: This 67 year old male is well known to me from prior admission to this hospital. He is a cigarette smoker who has not smoked since his last admission a few weeks back. He has a chronic cough with a positive Quantiferon TB Gold test, but multiple sputa, pleural fluid, and a recent BAL have all been negative for tuberculosis. One of those specimens did grow M gordonae. He has glomerulonephritis with nephrotic syndrome and had been given one dose of cyclophosphamide. He has been receiving Isoniazid for prophylaxis of latent tuberculosis. He had been discharged, but returned within a short time because of painful swelling of the LE's (especially the right), SOB and generalized weakness. Past Patient History - Infectious Disease Hx of Infectious Diseases: None - Past Medical History & Family History Past Medical History?: Yes - Past Social History Smoking Status: Smoker Currrent Status Unknown Chewing Tobacco Use: No Cigar Use: No Alcohol: Other (former heavy alcohol consumption) Drugs: Denies - CARDIAC Hx Congestive Heart Failure: Yes Hx Hypertension: Yes - PULMONARY Hx Chronic Obstructive Pulmonary Disease (COPD): Yes Other/Comment: latent TB - NEUROLOGICAL Hx Seizures: Yes - HEENT Hx HEENT Problems: No - RENAL Hx Chronic Kidney Disease: Yes Other/Comment: GN - ENDOCRINE/METABOLIC Hx Endocrine Disorders: No - HEMATOLOGICAL/ONCOLOGICAL Hx Anemia: Yes Hx Chemotherapy: Yes (one dose cyclophosphamide) - INTEGUMENTARY Hx Dermatological Problems: No - MUSCULOSKELETAL/RHEUMATOLOGICAL Hx Arthritis: Yes - GASTROINTESTINAL Hx Hemorrhoids: Yes - GENITOURINARY/GYNECOLOGICAL Hx Genitourinary Disorders: No - PSYCHIATRIC Hx Depression: Yes - ANESTHESIA Hx Anesthesia: Yes Hx Anesthesia Reactions: No Meds Allergies/Adverse Reactions: Allergies Allergy/AdvReac Type Severity Reaction Status Date / Time sulfamethoxazole Allergy RASH Verified 02/14/17 20:45 [From ] trimethoprim [From ] Allergy RASH Verified 02/14/17 20:45 - Medications Medications: Current Medications Albuterol/Ipratropium (Duoneb 3 Mg/0.5 Mg (3 Ml) Ud) 3 ml INH RQID [facility] Last Admin: 02/15/17 08:18 Dose: 3 ml Amlodipine Besylate (Norvasc) 5 mg PO DAILY [facility] Last Admin: 02/15/17 08:12 Dose: 5 mg Citalopram Hydrobromide (Celexa) 20 mg PO DAILY [facility] Last Admin: 02/15/17 08:12 Dose: 20 mg Clonidine HCl (Catapres) 0.3 mg PO TID [facility] Last Admin: 02/15/17 08:12 Dose: 0.3 mg Enoxaparin Sodium (Lovenox) 80 mg SC DAILY [facility] PRN Reason: Protocol Furosemide (Lasix) 80 mg PO BID [facility] Last Admin: 02/15/17 08:13 Dose: 80 mg Hydralazine HCl (Apresoline) 25 mg PO Q8 [facility] Last Admin: 02/15/17 08:16 Dose: 25 mg Isoniazid (Niazid) 300 mg PO DAILY [facility] Last Admin: 02/15/17 08:12 Dose: 300 mg Metolazone (Zaroxolyn) 5 mg PO BID [facility] Last Admin: 02/15/17 08:14 Dose: 5 mg Ondansetron HCl (Zofran Inj) 4 mg IVP Q6 PRN PRN Reason: Nausea/Vomiting Prednisone (Prednisone Tab) 40 mg PO DAILY [facility] Last Admin: 02/15/17 08:13 Dose: 40 mg Prednisone (Prednisone Tab) 30 mg PO DAILY [facility] Pyridoxine HCl (Vitamin B6) 100 mg PO DAILY [facility] Last Admin: 02/15/17 08:13 Dose: 100 mg Warfarin Sodium (Coumadin) 5 mg PO QD5 [facility] PRN Reason: Protocol Stop: 02/16/17 17:01 Physical Exam - Additional Findings Additional findings: Well nourished, well developed, cooperative, follows commands. Alert with apparent good recall. No cyanosis, ++ dependant edema of both LE's. Erythema and increased warmth of the LE's as well (more R than L). No palpable cervical or axillary adenopathy. Neck is supple and trachea midline, no visible JVD. Dullness on percussion left base posteriorly, unequal expansion. Breath sounds are present bilaterally, but diminished in the left base. Scattered sonorous rhonchi are heard in lower lobes (more right than left). No audible wheezes, no bronchial breath sounds. Few basal rales bilaterally. Heart sounds are distant, rhythm regular. Abdomen seems distended, not tympanitic, non-tender. Results - Vital Signs Recent Vital Signs: Last Vital Signs Temp 98 F 02/15/17 09:30 Pulse 69 02/15/17 09:30 Resp 17 02/15/17 09:30 BP 152/88 H 02/15/17 09:30 Pulse Ox 95 02/15/17 09:30 - Labs Result Diagrams: 02/16/17 06:50 02/16/17 06:50 Labs: Laboratory Results - last 24 hr 02/15/17 02/15/17 02:35 05:16 PT 10.7 INR 1.03 APTT 26.9 Sodium 134 Potassium 5.5 H Chloride 100 Carbon Dioxide 23 Anion Gap 17 BUN 107 H* Creatinine 2.4 H Est GFR ( Amer) 33 Est GFR (Non-Af Amer) 27 Random Glucose 88 Calcium 8.3 L Urine Color Yellow Urine Clarity Slighty-cloudy Urine pH 5.0 Ur Specific [place] 1.009 Urine Protein 100 Urine Glucose (UA) Neg Urine Ketones Negative Urine Blood Large Urine Nitrate Negative Urine Bilirubin Negative Urine Urobilinogen 0.2-1.0 Ur Leukocyte Esterase Neg Urine RBC (Auto) 456 H Urine Microscopic WBC 2 Ur Squamous Epith Cells < 1 Urine Bacteria Rare Assessment & Plan (1) ANCA-associated vasculitis Status: Chronic Priority: High (2) Anasarca Status: Chronic Priority: High (3) Productive cough Status: Chronic Priority: High (4) Bronchiectasis Status: Chronic Priority: High - Assessment and Plan (Free Text) Plan: Assess the amount of pleural effusion and possible presence of ascites. I would not treat the M gordonae isolated in one culture. This may have been a contaminant. All MTB cultures have been negative, the last one still being processed. He seems to be tolerating the isoniazid therapy w/o difficulty. Case discussed with Nephrology. Will follow with you. - Date & Time Date: 02/15/17 Time: 10:52
--- NOTE | 2017-02-15 18:02 | CP.PCM.CON ---
History of Present Illness - History of Present Illness History of Present Illness: 67 yo homeless M w PMHx of ANCA Vasculitis, DVT of RUE, CKD, HTN, etoh abuse, COPD, and CHF is admitted for worsening SOB . He denies fevers/chills, dizziness, LOC, headaches, chest pain, or palpitations. 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 h/o Alcohol abuse. denies drug use. Homeless FHx: denies Medications: Lovenox 80 QD, Warfarin 5 QD, Prednisone 20 QD, Lasix 80 BID, Clonidine 0.3 PO TID, Celexa 20 QD, Norvasc 5 QD, Pyridoxine 100 QD, Metolazone 5 QD Review of Systems - Constitutional Constitutional: As Per HPI, Anorexia, Malaise - EENT Eyes: absent: As Per HPI, Blind Spots, Blurred Vision, Change in Vision, Decreased Night Vision, Diplopia, Discharge, Dry Eye, Exophthalmos, Floaters, Irritation, Itchy Eyes, Loss of Peripheral Vision, Pain, Photophobia, Requires Corrective Lenses, Sees Flashes, Spots in Vision, Tunnel Vision, Other Visual Disturbances, Loss of Vision, Other Ears: absent: As Per HPI, Decreased Hearing, Ear Discharge, Ear Pain, Tinnitus, Abnormal Hearing, Disequilibrium, Dizziness, Other Nose/Mouth/Throat: absent: As Per HPI, Epistaxis, Nasal Congestion, Nasal Discharge, Nasal Trauma, Nose Pain, Post Nasal Drip, Sinus Pain, Sinus Pressure , Bleeding Gums, Change in Voice, Dental Pain, Dry Mouth, Dysphagia, Halitosis, Hoarsness, Lip Swelling, Mouth Lesions, Mouth Pain, Odynophagia, Sore Throat, Throat Swelling, Tongue Swelling, Facial Pain, Neck Pain, Neck Mass, Other - Cardiovascular Cardiovascular: As Per HPI - Respiratory Respiratory: As Per HPI - Gastrointestinal Gastrointestinal: absent: As Per HPI, Abdominal Pain, Belching, Bloating, Change in Bowel Habits, Change in Stool Character, Coffee Ground Emesis, Constipation, Cramping, Diarrhea, Dyspepsia, Dysphagia, Early Satiety, Excessive Flatus, Fecal Incontinence, Heartburn, Hematemesis, Hematochezia, Loose Stools, Melena, Nausea, Odynophagia, Temesmus, Vomiting, Other - Genitourinary Genitourinary: absent: As Per HPI, Change in Urinary Stream, Difficulty Urinating, Dysuria, Flank Pain, Hematuria, Pyuria, Nocturia, Urinary Incontinence, Urinary Frequency, Urinary Hesitance, Urinary Urgency, Voiding Freq/Small Amts, Freq UTI, Hx Renal/Bladder Calculi, Hx /Renal Surgery, Bladder Distension, Other - Musculoskeletal Musculoskeletal: As Per HPI - Integumentary Integumentary: As Per HPI - Neurological Neurological: absent: As Per HPI, Abnormal Gait, Abnormal Hearing, Abnormal Movements, Abnormal Speech, Behavioral Changes, Burning Sensations, Confusion, Convulsions, Disequilibrium, Dizziness, Numbness, Focal Weakness, Frequent Falls , Headaches, Lack of Coordination, Loss of Vision, Memory Loss, Paresthesias, Radicular Pain, Restless Legs, Sensory Deficit, Syncope, Tingling, Tremor, Vertigo, Weakness, Other Visual Disturbances, Other - Psychiatric Psychiatric: absent: As Per HPI, Abnormal Sleep Pattern, Anhedonia, Anxiety, Auditory Hallucinations, Behavioral Changes, Change in Appetite, Change in Libido, Confusion, Depression, Difficulty Concentrating, Hallucinations, Homicidal Ideation, Hopelessness, Irritability, Memory Loss, Mood Swings, Panic Attacks, Paranoia, Suicidal Ideation, Visual Hallucinations, Tactile Hallucinations, Other - Endocrine Endocrine: absent: As Per HPI, Change in Body Appearance, Change in Libido, Cold Intolorance, Deepening of Voice, Excessive Sweating, Fatigue, Flushing, Heat Intolorance, Increase in Ring/Shoe/Hat Size, Palpitations, Polydipsia, Polyphagia, Polyuria, Other - Hematologic/Lymphatic Hematologic: absent: As Per HPI, Easy Bleeding, Easy Bruising, Lymphadenopathy, Other Past Patient History - Infectious Disease Hx of Infectious Diseases: None - Past Medical History & Family History Past Medical History?: Yes - Past Social History Smoking Status: Former Smoker - CARDIAC Hx Congestive Heart Failure: Yes Hx Hypertension: Yes - PULMONARY Hx Chronic Obstructive Pulmonary Disease (COPD): Yes Other/Comment: latent TB - NEUROLOGICAL Hx Seizures: Yes - HEENT Hx HEENT Problems: No - RENAL Hx Chronic Kidney Disease: Yes Other/Comment: GN - ENDOCRINE/METABOLIC Hx Endocrine Disorders: No - HEMATOLOGICAL/ONCOLOGICAL Hx Anemia: Yes Hx Chemotherapy: Yes (one dose cyclophosphamide) - INTEGUMENTARY Hx Dermatological Problems: No - MUSCULOSKELETAL/RHEUMATOLOGICAL Hx Arthritis: Yes Hx Falls: No - GASTROINTESTINAL Hx Hemorrhoids: Yes - GENITOURINARY/GYNECOLOGICAL Hx Genitourinary Disorders: No - PSYCHIATRIC Hx Depression: Yes - SURGICAL HISTORY Hx Coronary Stent: No - ANESTHESIA Hx Anesthesia: Yes Hx Anesthesia Reactions: No Meds Allergies/Adverse Reactions: Allergies Allergy/AdvReac Type Severity Reaction Status Date / Time sulfamethoxazole Allergy RASH Verified 02/14/17 20:45 [From ] trimethoprim [From ] Allergy RASH Verified 02/14/17 20:45 - Medications Medications: Current Medications Albuterol/Ipratropium (Duoneb 3 Mg/0.5 Mg (3 Ml) Ud) 3 ml INH RQID [facility] Last Admin: 02/15/17 16:00 Dose: 3 ml Amlodipine Besylate (Norvasc) 5 mg PO DAILY [facility] Last Admin: 02/15/17 08:12 Dose: 5 mg Citalopram Hydrobromide (Celexa) 20 mg PO DAILY [facility] Last Admin: 02/15/17 08:12 Dose: 20 mg Clonidine HCl (Catapres) 0.3 mg PO TID [facility] Last Admin: 02/15/17 17:17 Dose: 0.3 mg Enoxaparin Sodium (Lovenox) 80 mg SC DAILY [facility] PRN Reason: Protocol Furosemide (Lasix) 80 mg PO BID [facility] Last Admin: 02/15/17 17:18 Dose: 80 mg Hydralazine HCl (Apresoline) 25 mg PO Q8 [facility] Last Admin: 02/15/17 17:18 Dose: 25 mg Isoniazid (Niazid) 300 mg PO DAILY [facility] Last Admin: 02/15/17 08:12 Dose: 300 mg Metolazone (Zaroxolyn) 5 mg PO BID [facility] Last Admin: 02/15/17 17:17 Dose: 5 mg Ondansetron HCl (Zofran Inj) 4 mg IVP Q6 PRN PRN Reason: Nausea/Vomiting Prednisone (Prednisone Tab) 30 mg PO DAILY [facility] Last Admin: 02/15/17 12:37 Dose: 30 mg Pyridoxine HCl (Vitamin B6) 100 mg PO DAILY [facility] Last Admin: 02/15/17 08:13 Dose: 100 mg Warfarin Sodium (Coumadin) 5 mg PO QD5 [facility] PRN Reason: Protocol Stop: 02/16/17 17:01 Physical Exam - Constitutional Appears: Non-toxic, Chronically Ill - Head Exam Head Exam: ATRAUMATIC, NORMAL INSPECTION, NORMOCEPHALIC - Eye Exam Eye Exam: EOMI, PERRL. absent: Scleral icterus - ENT Exam ENT Exam: Mucous Membranes Dry - Neck Exam Neck exam: Negative for: Lymphadenopathy, Thyromegaly - Respiratory Exam Respiratory Exam: Decreased Breath Sounds, Rhonchi - Cardiovascular Exam Cardiovascular Exam: REGULAR RHYTHM, +S1, +S2 - GI/Abdominal Exam GI & Abdominal Exam: Diminished Bowel Sounds, Soft. absent: Tenderness - Rectal Exam Rectal Exam: Deferred - Exam Exam: NORMAL INSPECTION - Extremities Exam Extremities exam: Positive for: pedal edema, pedal pulses present. Negative for : calf tenderness, tenderness - Back Exam Back exam: absent: CVA tenderness (L), CVA tenderness (R), paraspinal tenderness - Neurological Exam Neurological exam: Alert, CN II-XII Intact, Oriented x3, Reflexes Normal - Psychiatric Exam Psychiatric exam: Depressed - Skin Skin Exam: Dry Results - Vital Signs Recent Vital Signs: Last Vital Signs Temp 98.0 F 02/15/17 15:48 Pulse 75 02/15/17 17:18 Resp 18 02/15/17 15:48 BP 159/79 H 02/15/17 17:18 Pulse Ox 99 02/15/17 15:48 - Labs Result Diagrams: 02/14/17 21:15 02/15/17 05:16 Assessment & Plan (1) CHF (congestive heart failure) Status: Acute (2) Vasculitis Status: Acute (3) COPD (chronic obstructive pulmonary disease) with chronic bronchitis Status: Acute - Assessment and Plan (Free Text) Assessment: cont INH prophylaxis panculture for fever
[2017-02-16 07:24] LABS: HEMATOCRIT 26.1 % (35.0-51.0); MEAN CELL VOLUME 93.2 fl (80.0-94.0); MEAN CORPUSCULAR HEMOGLOBIN 31.2 pg (27.0-31.0); MEAN CORPUSCULAR HGB CONC 33.5 g/dL (33.0-37.0); RED CELL DISTRIBUTION WIDTH 15.5 % (11.5-14.5); WHITE BLOOD COUNT 10.8 K/uL (4.8-10.8)
[2017-02-16] MEDS: Albuterol-Ipratrop 3 mg / 0.5 (3 ml) UD INH SCH ×4 (07:30→19:56)
[2017-02-16 07:33] LABS: BILIRUBIN,TOTAL 0.3 mg/dl (0.2-1.3); CALCIUM 8.2 mg/dL (8.4-10.2); POTASSIUM 4.7 MMOL/L (3.6-5.0); TOTAL PROTEIN 5.5 G/DL (6.3-8.2)
[2017-02-16] MEDS: Pyridoxine 100 mg Tab PO SCH (08:26)
[2017-02-16] MEDS: Enoxaparin 80 mg Syringe SC SCH (08:26)
[2017-02-16] MEDS: metOLazone 5 MG TAB PO SCH ×2 (08:28→16:43)
--- NOTE | 2017-02-16 09:31 | CP.PCM.PN ---
Subjective - Date & Time of Evaluation Date of Evaluation: 02/16/17 Time of Evaluation: 09:31 - Subjective Subjective: pt seen and examined at beside this morning. NAEO. No new complaints. Reports leg edema seemed to improve yesterday but once he began ambulating today it increased again. Reports poor sleep due to commotion on the floor. Has started urinating more frequently as of yesterdays Lasix administration. SOB has been the same. Refused PT today. Denies fever/chills, headaches, changes in vision, CP/palpitations, N/V/D/C, urinary symptoms, leg pain. Objective - Vital Signs/Intake and Output Vital Signs (last 24 hours): Temp Pulse Resp BP Pulse Ox 98 F 69 20 164/82 H 96 02/16/17 08:00 02/16/17 08:27 02/16/17 08:00 02/16/17 08:27 02/16/17 08:00 - Medications Medications: Current Medications Albuterol/Ipratropium (Duoneb 3 Mg/0.5 Mg (3 Ml) Ud) 3 ml INH RQID [facility] Last Admin: 02/16/17 07:30 Dose: 3 ml Amlodipine Besylate (Norvasc) 5 mg PO DAILY [facility] Last Admin: 02/16/17 08:26 Dose: 5 mg Citalopram Hydrobromide (Celexa) 20 mg PO DAILY [facility] Last Admin: 02/16/17 08:28 Dose: 20 mg Clonidine HCl (Catapres) 0.3 mg PO TID [facility] Last Admin: 02/16/17 08:27 Dose: 0.3 mg Enoxaparin Sodium (Lovenox) 80 mg SC DAILY [facility] PRN Reason: Protocol Last Admin: 02/16/17 08:26 Dose: 80 mg Furosemide (Lasix) 80 mg PO BID [facility] Last Admin: 02/16/17 08:27 Dose: 80 mg Hydralazine HCl (Apresoline) 25 mg PO Q8 [facility] Last Admin: 02/16/17 08:27 Dose: 25 mg Isoniazid (Niazid) 300 mg PO DAILY [facility] Last Admin: 02/16/17 08:27 Dose: 300 mg Metolazone (Zaroxolyn) 5 mg PO BID [facility] Last Admin: 02/16/17 08:28 Dose: 5 mg Ondansetron HCl (Zofran Inj) 4 mg IVP Q6 PRN PRN Reason: Nausea/Vomiting Prednisone (Prednisone Tab) 30 mg PO DAILY [facility] Last Admin: 02/16/17 08:28 Dose: 30 mg Pyridoxine HCl (Vitamin B6) 100 mg PO DAILY [facility] Last Admin: 02/16/17 08:26 Dose: 100 mg Warfarin Sodium (Coumadin) 5 mg PO QD5 [facility] PRN Reason: Protocol Stop: 02/16/17 17:01 Last Admin: 02/15/17 18:41 Dose: 5 mg - Labs Labs: 02/16/17 06:50 02/16/17 06:50 PT 10.7 SECONDS (9.6-11.2) 02/15/17 05:16 INR 1.03 (0.92-1.08) 02/15/17 05:16 APTT 26.9 SECONDS (23.3-32.5) 02/15/17 05:16 - Constitutional Appears: Non-toxic, No Acute Distress - Eye Exam Eye Exam: EOMI. absent: Periorbital swelling, Scleral icterus Pupil Exam: PERRL Additional comments: left lateral subconjunctival hemorrhage - ENT Exam ENT Exam: Mucous Membranes Moist - Respiratory Exam Respiratory Exam: Rales, Wheezes. absent: Accessory Muscle Use, Respiratory Distress Additional comments: rales and wheezes still appreciated on examination, unchanged since prior examination - Cardiovascular Exam Cardiovascular Exam: REGULAR RHYTHM, RRR, +S1, +S2. absent: Gallop, JVD, Rubs, Murmur - GI/Abdominal Exam GI & Abdominal Exam: Soft, Normal Bowel Sounds. absent: Distended, Firm, Guarding, Rigid, Tenderness - Extremities Exam Extremities Exam: Full ROM, Pedal Edema. absent: Calf Tenderness Additional comments: 4+ pitting edema, skin well moisturized without dryness or cracking. Decreased distal LE erythema from prior examination. 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 -pBNP: 2490 -Lasix 80mg PO BID -Weight: 183 (-6lbs) -f/u I/O's -CTA Chest -f/u Cardio Consult -f/u Pulm Consult 2) Acute exacerbation of CKD Stage 4 -GFR 29 -- BUN/Cr 112/2.3 -f/u Nephro Consult -f/u BMP 3) RUE DVT -Will need total of 3 months of anticoagulation, as per previous admission note -Warfarin 5mg PO QD -Lovenox 80mg -f/u PT/INR/PTT -f/u Hem/Onc Consult 4) HTN (uncontrolled) -Hydralazine 25mg PO Q8H -Clonidine 0.3mg PO TID -Norvasc 5mg PO Daily 5) Latent TB -Isoniazid 300mg PO Daily -Pyridoxine 100mg PO Daily -f/u ID Consult 6) Anemia -Chronic, secondary to CKD -H/H: 8.0/23.9 -Cyclophosphamide HELD -f/u H/H 7) Depression -Celexa 20mg PO Daily 8) DVT Prophylaxis -Normal RLE U/S -SCDs -Lovenox 80mg
--- NOTE | 2017-02-16 14:51 | CON ---
DATE: 02/16/2017 REASON FOR CONSULTATION: Shortness of breath and leg swelling. 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 T he patient also has a history of pulmonary tuberculosis. He presented because of shortness of breath and worsening of leg swelling. The patient denies going back to smoking or drinking. MEDICATIONS: Hydralazine 25 mg q. 8 hours, clonidine 0.3 mg t.i.d., Celexa 20 mg once a day, Coumadi n 5 mg daily, Lasix 80 mg p.o. twice a day, Lovenox 80 mg subcutaneously daily, INH 300 mg once a day , Norvasc 5 mg once a day, prednisone 30 mg once a day, pyridoxine 100 mg once a day, Zaroxolyn 5 mg twice a day. PHYSICAL EXAMINATION: GENERAL: The patient is an elderly male who does not appear to be in acute distress. VITAL SIGNS: Blood pressure 148/62, heart rate 90, temperature 98.3, respirations 20. HEENT: Pale conjunctivae. NECK: No JVD. CHEST: Absent breath sounds over the bases. HEART: S1, S2 regular. ABDOMEN: Soft. EXTREMITIES: 2+ pitting edema. Chest x-ray revealed mild cardiomegaly with prominent bronchovascular markings. EKG revealed sinus r hythm at a rate of 92, left atrial enlargement. LABORATORIES: Hemoglobin and hematocrit 8.7 and 26.1, white count and platelet count are within norm al limit. Today's BUN and creatinine are 112 and 2.3. ProBNP is 2490. Venous Doppler of the lower extremities, normal study. Echocardiograph study performed in December this year revealed ejection fraction in the range of 45%-50%. ASSESSMENT: 1. Exacerbation of congestive heart failure, acute systolic. 2. Consider right-sided failure. 3. Anemia. 4. Chronic renal insufficiency. 5. Hypertension. RECOMMENDATIONS: Continue current hydralazine 25 mg q. 8 hours, clonidine 0.3 mg once a day. Change Lasix to 40 mg intravenously twice a day. The patient is not a suitable candidate for either MAN in hibitors or Aldactone therapy. Hi Miles MD cc: [id number] TT: 02/16/2017 14:51:13 Confirmation # [id number] Dictation # [id number] en
[2017-02-17 06:31] LABS: HEMATOCRIT 22.7 % (35.0-51.0); MEAN CELL VOLUME 93.3 fl (80.0-94.0); MEAN CORPUSCULAR HEMOGLOBIN 30.9 pg (27.0-31.0); MEAN CORPUSCULAR HGB CONC 33.1 g/dL (33.0-37.0); RED CELL DISTRIBUTION WIDTH 14.6 % (11.5-14.5); WHITE BLOOD COUNT 10.4 K/uL (4.8-10.8)
[2017-02-17 06:50] LABS: ALB/GLOB RATIO 0.9 (1.0-2.1); BILIRUBIN,TOTAL 0.2 mg/dl (0.2-1.3); CALCIUM 7.6 mg/dL (8.4-10.2); POTASSIUM 4.3 MMOL/L (3.6-5.0); TOTAL PROTEIN 4.8 G/DL (6.3-8.2)
--- NOTE | 2017-02-17 07:51 | CP.PCM.PN ---
Subjective - Date & Time of Evaluation Date of Evaluation: 02/17/17 Time of Evaluation: 07:51 - Subjective Subjective: pt seen and examined at bedside. NAEO. Reports feeling similar to yesterday. Restricted mobility secondary to pedal edema. Reports being able ambulate but feels his legs swell up shortly after. No other complaints. Objective - Vital Signs/Intake and Output Vital Signs (last 24 hours): Temp Pulse Resp BP Pulse Ox 97.9 F 81 20 156/80 H 94 L 02/17/17 05:13 02/17/17 05:13 02/17/17 05:13 02/17/17 05:13 02/17/17 05:13 - Medications Medications: Current Medications Albuterol/Ipratropium (Duoneb 3 Mg/0.5 Mg (3 Ml) Ud) 3 ml INH RQID [facility] Last Admin: 02/16/17 19:56 Dose: 3 ml Amlodipine Besylate (Norvasc) 5 mg PO DAILY [facility] Last Admin: 02/16/17 08:26 Dose: 5 mg Citalopram Hydrobromide (Celexa) 20 mg PO DAILY [facility] Last Admin: 02/16/17 08:28 Dose: 20 mg Clonidine HCl (Catapres) 0.3 mg PO TID [facility] Last Admin: 02/16/17 16:41 Dose: 0.3 mg Enoxaparin Sodium (Lovenox) 80 mg SC DAILY [facility] PRN Reason: Protocol Last Admin: 02/16/17 08:26 Dose: 80 mg Furosemide (Lasix) 80 mg PO BID [facility] Last Admin: 02/16/17 16:42 Dose: 80 mg Hydralazine HCl (Apresoline) 25 mg PO Q8 [facility] Last Admin: 02/17/17 00:35 Dose: 25 mg Isoniazid (Niazid) 300 mg PO DAILY [facility] Last Admin: 02/16/17 08:27 Dose: 300 mg Metolazone (Zaroxolyn) 5 mg PO BID [facility] Last Admin: 02/16/17 16:43 Dose: 5 mg Ondansetron HCl (Zofran Inj) 4 mg IVP Q6 PRN PRN Reason: Nausea/Vomiting Prednisone (Prednisone Tab) 30 mg PO DAILY [facility] Last Admin: 02/16/17 08:28 Dose: 30 mg Pyridoxine HCl (Vitamin B6) 100 mg PO DAILY [facility] Last Admin: 02/16/17 08:26 Dose: 100 mg Warfarin Sodium (Coumadin) 5 mg PO ONCE ONE PRN Reason: Protocol Stop: 02/17/17 17:47 - Labs Labs: 02/17/17 05:55 02/17/17 05:55 PT 19.4 SECONDS (9.6-11.2) H D 02/17/17 05:55 INR 1.87 (0.92-1.08) H D 02/17/17 05:55 APTT 26.9 SECONDS (23.3-32.5) 02/15/17 05:16 - Constitutional Appears: Non-toxic, No Acute Distress - Eye Exam Eye Exam: EOMI Pupil Exam: PERRL Additional comments: left lateral subconjunctival hemorrhage, less prominent today - ENT Exam ENT Exam: Mucous Membranes Moist - Neck Exam Neck Exam: Full ROM - Respiratory Exam Respiratory Exam: Rales, Wheezes (worse on left than right, still prominent diffusely, stable since yesterday ). absent: Accessory Muscle Use, Respiratory Distress - Cardiovascular Exam Cardiovascular Exam: REGULAR RHYTHM, RRR, +S1, +S2. absent: Clicks, Gallop, JVD , Rubs, Murmur - GI/Abdominal Exam GI & Abdominal Exam: Soft, Normal Bowel Sounds. absent: Distended, Firm, Guarding, Rigid, Tenderness - Extremities Exam Extremities Exam: Full ROM, Pedal Edema. absent: Calf Tenderness, Tenderness Additional comments: 3+ pedal edema bilaterally - Neurological Exam Neurological Exam: Alert, Awake, CN II-XII Intact, Oriented x3 - Psychiatric Exam Psychiatric exam: Normal Affect, Normal Mood - Skin Skin Exam: Dry, Intact, Normal Color, Warm Assessment and Plan - Assessment and Plan (Free Text) Assessment: 67 yo homeless M w PMHx of ANCA Vasculitis, DVT of RUE, CKD, HTN, etoh abuse, COPD, and CHF is admitted for worsening SOB. 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 Sandoval, cut steroid dosage in half as this can be causing the elevating BUN. 3) RUE DVT -Will need total of 3 months of anticoagulation, as per previous admission note -Warfarin 5mg PO QD -Lovenox 80mg -f/u PT/INR/PTT -Hem/Onc Consult 4) HTN (uncontrolled) -Hydralazine 25mg PO Q8H -Clonidine 0.3mg PO TID -Norvasc 5mg PO Daily 5) Latent TB -Isoniazid 300mg PO Daily -Pyridoxine 100mg PO Daily -f/u ID Consult 6) Chronic Anemia -Chronic, secondary to CKD -Type and screen -2 units PRBCs -H/H: 7.5/22.7 -once H/H is stable, Cyclophosphamide infusion on Monday 7) Depression -Celexa 20mg PO Daily 8) DVT Prophylaxis -SCDs -Lovenox 80mg -Warfarin 5mg
[2017-02-17] MEDS: Albuterol-Ipratrop 3 mg / 0.5 (3 ml) UD INH SCH ×4 (08:41→19:19)
[2017-02-17] MEDS: Enoxaparin 80 mg Syringe SC SCH (09:04)
[2017-02-17] MEDS: Pyridoxine 100 mg Tab PO SCH (09:04)
[2017-02-17] MEDS: metOLazone 5 MG TAB PO SCH ×2 (09:05→17:16)
--- NOTE | 2017-02-17 09:25 | CP.PCM.PN ---
Subjective - Date & Time of Evaluation Date of Evaluation: 02/17/17 Time of Evaluation: 09:22 - Subjective Subjective: Patient is out of bed sitting eating his breakfast He appears to be comfortable leg swollen decreasing Hemoglobin noted to be going down 7.5 Vital signs stable BUN going up higher disproportion to the creatinine perhaps because of the steroid. To cut down the steroid slowly The plan To give Cytoxan 600 mg however because of the hemoglobin 7.5 please give blood transfusion before we will give him Cytoxan. Objective - Vital Signs/Intake and Output Vital Signs (last 24 hours): Temp Pulse Resp BP Pulse Ox 98.3 F 73 20 154/74 H 96 02/17/17 08:00 02/17/17 09:04 02/17/17 08:00 02/17/17 09:04 02/17/17 08:00 - Medications Medications: Current Medications Albuterol/Ipratropium (Duoneb 3 Mg/0.5 Mg (3 Ml) Ud) 3 ml INH RQID [facility] Last Admin: 02/17/17 08:41 Dose: 3 ml Amlodipine Besylate (Norvasc) 5 mg PO DAILY [facility] Last Admin: 02/17/17 09:04 Dose: 5 mg Citalopram Hydrobromide (Celexa) 20 mg PO DAILY [facility] Last Admin: 02/17/17 09:02 Dose: 20 mg Clonidine HCl (Catapres) 0.3 mg PO TID [facility] Last Admin: 02/17/17 09:01 Dose: 0.3 mg Enoxaparin Sodium (Lovenox) 80 mg SC DAILY [facility] PRN Reason: Protocol Last Admin: 02/17/17 09:04 Dose: 80 mg Furosemide (Lasix) 80 mg PO BID [facility] Last Admin: 02/17/17 09:03 Dose: 80 mg Hydralazine HCl (Apresoline) 25 mg PO Q8 [facility] Last Admin: 02/17/17 09:01 Dose: 25 mg Isoniazid (Niazid) 300 mg PO DAILY [facility] Last Admin: 02/17/17 09:04 Dose: 300 mg Metolazone (Zaroxolyn) 5 mg PO BID [facility] Last Admin: 02/17/17 09:05 Dose: 5 mg Ondansetron HCl (Zofran Inj) 4 mg IVP Q6 PRN PRN Reason: Nausea/Vomiting Prednisone (Prednisone Tab) 30 mg PO DAILY [facility] Last Admin: 02/17/17 09:05 Dose: 30 mg Pyridoxine HCl (Vitamin B6) 100 mg PO DAILY [facility] Last Admin: 02/17/17 09:04 Dose: 100 mg Warfarin Sodium (Coumadin) 5 mg PO ONCE ONE PRN Reason: Protocol Stop: 02/17/17 17:47 - Labs Labs: 02/17/17 05:55 02/17/17 05:55 PT 19.4 SECONDS (9.6-11.2) H D 02/17/17 05:55 INR 1.87 (0.92-1.08) H D 02/17/17 05:55 APTT 26.9 SECONDS (23.3-32.5) 02/15/17 05:16
--- NOTE | 2017-02-17 12:08 | PN ---
DATE: 02/17/2017 SUBJECTIVE: The patient's shortness of breath has improved. He is still experiencing significant bi lateral leg swelling. PHYSICAL EXAMINATION: VITAL SIGNS: Blood pressure 154/74, heart rate 73, temperature 98.3. HEENT: Pale conjunctivae. CHEST: Diminished breath sounds at the bases. HEART: S1, S2. Regular. EXTREMITIES: 2+ pitting edema. LABORATORIES: Today's BUN and creatinine are 118 and 2.2, respectively. INR is 1.87. Today's hemog lobin and hematocrit 7.5 and 22.7, white count and platelet count are within normal limit. Venous du plex performed on 02/10 revealed redemonstration of nonocclusive thrombus in the axillary vein, with persistent phlebitis in the right upper extremity. revealed short run of multifocal atri al tachycardia rather than an atrial fibrillation. ASSESSMENT: 1. Congestive heart failure. 2. Short run of multifocal atrial tachycardia. 3. Anemia. 4. Right axillary nonocclusive thrombus with persistent basics thrombophlebitis. 5. Chronic renal insufficiency. 6. History of pulmonary tuberculosis. RECOMMENDATIONS: Continue hydralazine 25 mg q. 8 hours, clonidine 0.2 mg t.i.d., Coumadin 5 mg to be administered today, Lasix was changed to IV push as 40 mg twice a day. Continue therapeutic subcuta neous Lovenox until therapeutic INR is achieved. Consider verapamil therapy if MAT becomes more freq uent. Hi Miles MD cc: [id number] TT: 02/17/2017 12:08:00 Confirmation # [id number] Dictation # [id number]
[2017-02-18 06:24] LABS: HEMATOCRIT 27.8 % (35.0-51.0); MEAN CELL VOLUME 92.9 fl (80.0-94.0); MEAN CORPUSCULAR HGB CONC 33.4 g/dL (33.0-37.0); RED CELL DISTRIBUTION WIDTH 15.5 % (11.5-14.5)
[2017-02-18 06:41] LABS: CALCIUM 7.6 mg/dL (8.4-10.2); POTASSIUM 4.2 MMOL/L (3.6-5.0)
[2017-02-18] MEDS: Albuterol-Ipratrop 3 mg / 0.5 (3 ml) UD INH SCH ×4 (08:06→19:49)
[2017-02-18] MEDS: metOLazone 5 MG TAB PO SCH ×2 (08:24→17:25)
[2017-02-18] MEDS: Pyridoxine 100 mg Tab PO SCH (08:24)
[2017-02-18] MEDS: Enoxaparin 80 mg Syringe SC SCH (08:25)
--- NOTE | 2017-02-18 10:24 | CP.PCM.PN ---
Subjective - Date & Time of Evaluation Date of Evaluation: 02/18/17 Time of Evaluation: 10:24 - Subjective Subjective: pt seen and examined at bedside. NAEO. Lying comfortably in bed, in pleasant mood, NAD. S/P 2 units PRBC transfusion. Tolerated well without complications. Reports no problems with breathing, and feels his pedal edema has improved. Has no new complaints. OOB/ambulating to bathroom with some difficulty as he feels his legs swell up the longer he walks. Denies fever/chills, headaches, changes in vision, CP/SOB/Palpitations, N/V/D/C, numbness/tingling. Objective - Vital Signs/Intake and Output Vital Signs (last 24 hours): Temp Pulse Resp BP Pulse Ox 98.4 F 112 H 18 154/82 H 96 02/18/17 08:00 02/18/17 08:26 02/18/17 08:00 02/18/17 08:26 02/18/17 08:00 - Medications Medications: Current Medications Albuterol/Ipratropium (Duoneb 3 Mg/0.5 Mg (3 Ml) Ud) 3 ml INH RQID [facility] Last Admin: 02/18/17 08:06 Dose: 3 ml Amlodipine Besylate (Norvasc) 5 mg PO DAILY [facility] Last Admin: 02/18/17 08:26 Dose: 5 mg Citalopram Hydrobromide (Celexa) 20 mg PO DAILY [facility] Last Admin: 02/18/17 08:25 Dose: 20 mg Clonidine HCl (Catapres) 0.3 mg PO TID [facility] Last Admin: 02/18/17 08:23 Dose: 0.3 mg Enoxaparin Sodium (Lovenox) 80 mg SC DAILY [facility] PRN Reason: Protocol Last Admin: 02/18/17 08:25 Dose: 80 mg Furosemide (Lasix) 40 mg IVP BID [facility] Last Admin: 02/18/17 08:25 Dose: 40 mg Hydralazine HCl (Apresoline) 25 mg PO Q8 [facility] Last Admin: 02/18/17 08:24 Dose: 25 mg Isoniazid (Niazid) 300 mg PO DAILY [facility] Last Admin: 02/18/17 08:24 Dose: 300 mg Metolazone (Zaroxolyn) 5 mg PO BID [facility] Last Admin: 02/18/17 08:24 Dose: 5 mg Ondansetron HCl (Zofran Inj) 4 mg IVP Q6 PRN PRN Reason: Nausea/Vomiting Prednisone (Prednisone Tab) 25 mg PO DAILY [facility] Last Admin: 02/18/17 08:26 Dose: 25 mg Pyridoxine HCl (Vitamin B6) 100 mg PO DAILY [facility] Last Admin: 02/18/17 08:24 Dose: 100 mg Warfarin Sodium (Coumadin) 5 mg PO ONCE ONE PRN Reason: Protocol Stop: 02/18/17 17:01 - Labs Labs: 02/18/17 05:57 02/18/17 06:02 PT 29.0 SECONDS (9.6-11.2) H D 02/18/17 05:57 INR 2.79 (0.92-1.08) H D 02/18/17 05:57 APTT 26.9 SECONDS (23.3-32.5) 02/15/17 05:16 - Constitutional Appears: Well, Non-toxic, No Acute Distress - Eye Exam Eye Exam: EOMI Pupil Exam: PERRL Additional comments: fading left subconjunctial hemorrhage. - ENT Exam ENT Exam: Mucous Membranes Moist - Respiratory Exam Respiratory Exam: Wheezes, NORMAL BREATHING PATTERN. absent: Rales, Rhonchi Additional comments: wheezing appreciated diffusely through both posterior lung magaña. Much improved since days prior. - Cardiovascular Exam Cardiovascular Exam: REGULAR RHYTHM, RRR, +S1, +S2. absent: Clicks, Gallop, JVD , Rubs, Murmur - Extremities Exam Extremities Exam: Normal Capillary Refill, Pedal Edema. absent: Calf Tenderness Additional comments: improving pedal edema. 2+ pitting today - Neurological Exam Neurological Exam: Alert, Awake, CN II-XII Intact, Oriented x3 - Psychiatric Exam Psychiatric exam: Normal Affect, Normal Mood - Skin Skin Exam: Intact, Normal Color, Warm. absent: Diaphoretic, Rash, Urticaria Assessment and Plan - Assessment and Plan (Free Text) Assessment: 67 yo homeless M w PMHx of ANCA Vasculitis, DVT of RUE, CKD, HTN, etoh abuse, COPD, and CHF is admitted for worsening SOB. 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 Sandoval, cut steroid dosage in half as this can be causing the elevating BUN. 3) RUE DVT -Will need total of 3 months of anticoagulation, as per previous admission note -Warfarin 5mg PO QD -Lovenox 80mg -INR: 2.79 -Hem/Onc Consult 4) HTN (uncontrolled) -Hydralazine 25mg PO Q8H -Clonidine 0.3mg PO TID -Norvasc 5mg PO Daily 5) Latent TB -Isoniazid 300mg PO Daily -Pyridoxine 100mg PO Daily -f/u ID Consult 6) Chronic Anemia -Chronic, secondary to CKD -Type and screen -S/P 2 units PRBCs -H/H: 9.3/27.8 -once H/H is stable, Cyclophosphamide infusion on Monday 7) Depression -Celexa 20mg PO Daily 8) DVT Prophylaxis -SCDs -Lovenox 80mg -Warfarin 5mg
--- NOTE | 2017-02-18 12:17 | CP.PCM.PN ---
Subjective - Date & Time of Evaluation Date of Evaluation: 02/18/17 Time of Evaluation: 09:00 - Subjective Subjective: no fever all cultures neg thus far Objective - Vital Signs/Intake and Output Vital Signs (last 24 hours): Temp Pulse Resp BP Pulse Ox 98.4 F 112 H 18 154/82 H 96 02/18/17 08:00 02/18/17 09:00 02/18/17 08:00 02/18/17 08:26 02/18/17 08:00 - Medications Medications: Current Medications Albuterol/Ipratropium (Duoneb 3 Mg/0.5 Mg (3 Ml) Ud) 3 ml INH RQID [facility] Last Admin: 02/18/17 11:30 Dose: 3 ml Amlodipine Besylate (Norvasc) 5 mg PO DAILY [facility] Last Admin: 02/18/17 08:26 Dose: 5 mg Citalopram Hydrobromide (Celexa) 20 mg PO DAILY [facility] Last Admin: 02/18/17 08:25 Dose: 20 mg Clonidine HCl (Catapres) 0.3 mg PO TID [facility] Last Admin: 02/18/17 08:23 Dose: 0.3 mg Enoxaparin Sodium (Lovenox) 80 mg SC DAILY [facility] PRN Reason: Protocol Last Admin: 02/18/17 08:25 Dose: 80 mg Furosemide (Lasix) 40 mg IVP BID [facility] Last Admin: 02/18/17 08:25 Dose: 40 mg Hydralazine HCl (Apresoline) 25 mg PO Q8 [facility] Last Admin: 02/18/17 08:24 Dose: 25 mg Isoniazid (Niazid) 300 mg PO DAILY [facility] Last Admin: 02/18/17 08:24 Dose: 300 mg Metolazone (Zaroxolyn) 5 mg PO BID [facility] Last Admin: 02/18/17 08:24 Dose: 5 mg Ondansetron HCl (Zofran Inj) 4 mg IVP Q6 PRN PRN Reason: Nausea/Vomiting Prednisone (Prednisone Tab) 25 mg PO DAILY [facility] Last Admin: 02/18/17 08:26 Dose: 25 mg Pyridoxine HCl (Vitamin B6) 100 mg PO DAILY [facility] Last Admin: 02/18/17 08:24 Dose: 100 mg Warfarin Sodium (Coumadin) 5 mg PO ONCE ONE PRN Reason: Protocol Stop: 02/18/17 17:01 - Labs Labs: 02/18/17 05:57 02/18/17 06:02 PT 29.0 SECONDS (9.6-11.2) H D 02/18/17 05:57 INR 2.79 (0.92-1.08) H D 02/18/17 05:57 APTT 26.9 SECONDS (23.3-32.5) 02/15/17 05:16 - Constitutional Appears: Non-toxic, Cachectic, Chronically Ill - Head Exam Head Exam: NORMOCEPHALIC - Eye Exam Eye Exam: PERRL. absent: Scleral icterus - Neck Exam Neck Exam: absent: Lymphadenopathy - Respiratory Exam Respiratory Exam: Decreased Breath Sounds, Rhonchi - Cardiovascular Exam Cardiovascular Exam: REGULAR RHYTHM, +S1, +S2 - GI/Abdominal Exam GI & Abdominal Exam: Distended, Soft. absent: Tenderness - Rectal Exam Rectal Exam: Deferred - Exam Exam: NORMAL INSPECTION Assessment and Plan (1) CHF (congestive heart failure) Status: Acute (2) Vasculitis Status: Acute (3) COPD (chronic obstructive pulmonary disease) with chronic bronchitis Status: Acute
--- NOTE | 2017-02-18 15:12 | PN ---
DATE: 02/18/2017 The patient denies chest pain. His leg swelling has improved. PHYSICAL EXAMINATION: VITAL SIGNS: Blood pressure 147/70, heart rate 98, temperature 98.2, respirations 20. HEENT: Pale conjunctivae. CHEST: Bilateral rhonchi. HEART: S1, S2 regular. EXTREMITIES: 1+ pitting edema. LABORATORIES: Hemoglobin and hematocrit 9.3 and 27.8, white count and platelet count are within norm al limits. Today's BUN and creatinine are 111 and 1.9. ProBNP is 2290. ASSESSMENT: 1. Improved systolic heart failure. 2. Chronic renal insufficiency. 3. History of vasculitis. 4. Subclavian vein thrombosis. RECOMMENDATIONS: Continue clonidine 0.3 mg once a day, Lasix 40 mg intravenous twice a day, Zaroxoly n 5 mg orally twice a day. Today's INR is 2.79 and the patient will receive Coumadin 5 mg. In the m eantime, I will discontinue subcutaneous Lovenox. Hi Miles MD cc: [id number] TT: 02/18/2017 15:11:59 Confirmation # [id number] Dictation # [id number]
--- NOTE | 2017-02-18 23:13 | CP.PCM.PN ---
Subjective - Date & Time of Evaluation Date of Evaluation: 02/18/17 Time of Evaluation: 11:00 - Subjective Subjective: no new complaints edema + no sob Objective - Vital Signs/Intake and Output Vital Signs (last 24 hours): Temp Pulse Resp BP Pulse Ox 98.4 F 89 16 131/70 96 02/18/17 21:15 02/18/17 21:15 02/18/17 21:15 02/18/17 21:15 02/18/17 21:15 - Medications Medications: Current Medications Albuterol/Ipratropium (Duoneb 3 Mg/0.5 Mg (3 Ml) Ud) 3 ml INH RQID [facility] Last Admin: 02/18/17 19:49 Dose: 3 ml Amlodipine Besylate (Norvasc) 5 mg PO DAILY [facility] Last Admin: 02/18/17 08:26 Dose: 5 mg Citalopram Hydrobromide (Celexa) 20 mg PO DAILY [facility] Last Admin: 02/18/17 08:25 Dose: 20 mg Clonidine HCl (Catapres) 0.3 mg PO TID [facility] Last Admin: 02/18/17 17:25 Dose: Not Given Furosemide (Lasix) 40 mg IVP BID [facility] Last Admin: 02/18/17 17:26 Dose: 40 mg Hydralazine HCl (Apresoline) 25 mg PO Q8 [facility] Last Admin: 02/18/17 17:25 Dose: Not Given Isoniazid (Niazid) 300 mg PO DAILY [facility] Last Admin: 02/18/17 08:24 Dose: 300 mg Metolazone (Zaroxolyn) 5 mg PO BID [facility] Last Admin: 02/18/17 17:25 Dose: 5 mg Ondansetron HCl (Zofran Inj) 4 mg IVP Q6 PRN PRN Reason: Nausea/Vomiting Prednisone (Prednisone Tab) 25 mg PO DAILY [facility] Last Admin: 02/18/17 08:26 Dose: 25 mg Pyridoxine HCl (Vitamin B6) 100 mg PO DAILY [facility] Last Admin: 02/18/17 08:24 Dose: 100 mg - Labs Labs: 02/18/17 05:57 02/18/17 06:02 PT 29.0 SECONDS (9.6-11.2) H D 02/18/17 05:57 INR 2.79 (0.92-1.08) H D 02/18/17 05:57 APTT 26.9 SECONDS (23.3-32.5) 02/15/17 05:16 - Constitutional Appears: Well, Non-toxic, No Acute Distress - Head Exam Head Exam: NORMAL INSPECTION - Eye Exam Eye Exam: Normal appearance - ENT Exam ENT Exam: Mucous Membranes Moist - Neck Exam Neck Exam: Normal Inspection - Respiratory Exam Respiratory Exam: NORMAL BREATHING PATTERN - Cardiovascular Exam Cardiovascular Exam: REGULAR RHYTHM - GI/Abdominal Exam GI & Abdominal Exam: Soft - Extremities Exam Extremities Exam: Pedal Edema - Neurological Exam Neurological Exam: Alert, Oriented x3 Assessment and Plan - Assessment and Plan (Free Text) Plan: Cipriano/crescentric pauciimmune GN ANCA vasculitis/azotemia continue diuretics for edema on prednisone and cytoxan, next dose on monday lytes reviewed bp reviewed, continue meds
[2017-02-19] MEDS: Albuterol-Ipratrop 3 mg / 0.5 (3 ml) UD INH SCH ×4 (08:00→19:37)
--- NOTE | 2017-02-19 09:09 | CP.PCM.PN ---
Subjective - Date & Time of Evaluation Date of Evaluation: 02/19/17 Time of Evaluation: 08:00 - Subjective Subjective: Pt seen sitting up in bed with NC in place. States he is feeling somewhat better today. Pt reports sleeping well and good appetite. States that this morning when he first woke up, he felt a slight chest discomfort which lasted only a few seconds and resolved. When questioned further regarding this, denied feeling chest pain. States it was a "feeling that pain was going to start, but didn't." No chest discomfort since then. Denies SOB. Mild leg swelling, worsens when pt is OOB. Denies fever, chills, N/V/D or abdominal pain. Objective - Vital Signs/Intake and Output Vital Signs (last 24 hours): Temp Pulse Resp BP Pulse Ox 98.6 F 84 20 169/86 H 96 02/19/17 08:00 02/19/17 08:00 02/19/17 08:00 02/19/17 08:00 02/19/17 08:00 - Medications Medications: Current Medications Albuterol/Ipratropium (Duoneb 3 Mg/0.5 Mg (3 Ml) Ud) 3 ml INH RQID [facility] Last Admin: 02/19/17 08:00 Dose: 3 ml Amlodipine Besylate (Norvasc) 5 mg PO DAILY [facility] Last Admin: 02/18/17 08:26 Dose: 5 mg Citalopram Hydrobromide (Celexa) 20 mg PO DAILY [facility] Last Admin: 02/18/17 08:25 Dose: 20 mg Clonidine HCl (Catapres) 0.3 mg PO TID [facility] Last Admin: 02/18/17 17:25 Dose: Not Given Furosemide (Lasix) 40 mg IVP BID [facility] Last Admin: 02/18/17 17:26 Dose: 40 mg Hydralazine HCl (Apresoline) 25 mg PO Q8 [facility] Last Admin: 02/19/17 00:59 Dose: 25 mg Isoniazid (Niazid) 300 mg PO DAILY [facility] Last Admin: 02/18/17 08:24 Dose: 300 mg Metolazone (Zaroxolyn) 5 mg PO BID [facility] Last Admin: 02/18/17 17:25 Dose: 5 mg Ondansetron HCl (Zofran Inj) 4 mg IVP Q6 PRN PRN Reason: Nausea/Vomiting Prednisone (Prednisone Tab) 25 mg PO DAILY [facility] Last Admin: 02/18/17 08:26 Dose: 25 mg Pyridoxine HCl (Vitamin B6) 100 mg PO DAILY [facility] Last Admin: 02/18/17 08:24 Dose: 100 mg - Labs Labs: 02/18/17 05:57 02/18/17 06:02 PT 29.0 SECONDS (9.6-11.2) H D 02/18/17 05:57 INR 2.79 (0.92-1.08) H D 02/18/17 05:57 APTT 26.9 SECONDS (23.3-32.5) 02/15/17 05:16 - Constitutional Appears: No Acute Distress - Eye Exam Eye Exam: Normal appearance - ENT Exam ENT Exam: Mucous Membranes Moist - Respiratory Exam Respiratory Exam: Wheezes (scattered, diffuse), NORMAL BREATHING PATTERN. absent: Accessory Muscle Use, Respiratory Distress - Cardiovascular Exam Cardiovascular Exam: REGULAR RHYTHM, RRR. absent: Gallop, Rubs, Murmur - GI/Abdominal Exam GI & Abdominal Exam: Soft, Normal Bowel Sounds. absent: Tenderness - Extremities Exam Extremities Exam: Pedal Edema (2+). absent: Calf Tenderness - Neurological Exam Neurological Exam: Alert, Awake, Oriented x3 - Psychiatric Exam Psychiatric exam: Normal Affect, Normal Mood - Skin Skin Exam: Dry, Warm Assessment and Plan - Assessment and Plan (Free Text) Assessment: 67 yo homeless M w PMHx of ANCA Vasculitis, DVT of RUE, CKD, HTN, etoh abuse, COPD, and CHF is admitted for worsening SOB. 1. 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 Acute exacerbation of CHF, systolic -Cardio Consult: likely acute systolic HF, consider right sided -Lasix 40mg IV BID -daily weights -f/u I/O's -LE edema improving 3. Acute exacerbation of CKD Stage 4 -BUN/Cr slowly trending down; today 105/1.8 -prednisone dosage decreased, as this can contribute to worsening kidney function 4. RUE DVT -Will need total of 3 months of anticoagulation, as per previous admission note -Lovenox last day was yesterday; now only on warfarin -INR: 3.07 today, slightly supratherapeutic; no bleeding -Decrease warfarin to 4mg today; f/u INR tomorrow -Hem/Onc Consult 5. HTN (uncontrolled) -Hydralazine 25mg PO Q8H -Clonidine 0.3mg PO TID -Norvasc 5mg PO Daily 6. Latent TB -Isoniazid 300mg PO Daily -Pyridoxine 100mg PO Daily -f/u ID Consult 7. Chronic Anemia -Chronic, secondary to CKD -Type and screen -S/P 2 units PRBCs -maintaining H/H 9.3/27.9 8. Depression -Celexa 20mg PO Daily 9. DVT Prophylaxis -SCDs -Warfarin 5mg
[2017-02-19] MEDS: Pyridoxine 100 mg Tab PO SCH (09:32)
[2017-02-19] MEDS: metOLazone 5 MG TAB PO SCH ×2 (09:32→17:29)
[2017-02-19 12:06] LABS: CALCIUM 7.7 mg/dL (8.4-10.2); POTASSIUM 4.5 MMOL/L (3.6-5.0)
[2017-02-19 12:08] LABS: HEMATOCRIT 27.9 % (35.0-51.0); MEAN CELL VOLUME 92.7 fl (80.0-94.0); MEAN CORPUSCULAR HEMOGLOBIN 31.1 pg (27.0-31.0); MEAN CORPUSCULAR HGB CONC 33.5 g/dL (33.0-37.0); WHITE BLOOD COUNT 11.8 K/uL (4.8-10.8)
[2017-02-19] MEDS ORDERED: Metoprolol 1 mg/ml Inj IVP ONE ×2 (16:08→16:59)
--- NOTE | 2017-02-19 16:38 | PCM.RRTMUL ---
COLD STRIP ROLLER Nurse Assessment - Situation COLD STRIP ROLLER Responder Arrival Time:: 08:00 - Ventilator Settings Ventilator Respiratory Rate Setting:: 12 Ventilator Tidal Volume Setting:: 600 - Vital Signs Blood Pressure:: 173/96 Pulse Rate:: 136 Respiratory Rate:: 18 Temperature:: 36.7 C Responder Note - Time COLD STRIP ROLLER was called Time COLD STRIP ROLLER was called:: 15:54 - Location Location: [facility] Discovered by:: Staff - COLD STRIP ROLLER Team COLD STRIP ROLLER Leader:: Rigo Glover Resident:: Shena Ramírez - Vital Signs at Initial Assessment Blood Pressure:: 142/80 Pulse Rate:: 120 Respiratory Rate:: 18 O2 Sat by Pulse Oximetry:: 98 - Acute Change in Patient Acute Change in Patient: (Select all that apply): Acute change in heart rate less than 50 or greater than 120 (>140) - Chest Pain Chest Pain:(If answer is yes, complete next 2 questions): No - Seizure Seizure:: No New Onset:: No - Neurological Status Neurological Status (Select all that apply):: Alert, Responsive, Oriented, Verbal, Follows Commands - Assessment of Findings COLD STRIP ROLLER Interventions: EKG, Lopressor 5mg, IV, x1 EKG: SVT, no acute ST-T changes from prior Summary - Summary of Event Summary of Event: 67M asymptomatic tachycardia denies nausea, diaphoresis, chest pain, or palpitations. A little anxious after family at bedside. GEN: mildly anxious PULM: CTAB, no wheeze/rales CARD: regular tachycardia, no murmurs noted, no JVD ABD: soft, NTND EXT: baseline b/l edema on lasix A/P: 67M with known hypertensive problems after review of charts since this admission consistently hypertensive from midnight - ~0900 in the morning and systolic heart failure. Otherwise patient is - EKG: SVT - Lopressor 5mg, IV, x1 - Re-start Labetalol 200mg, PO, Q12H - plan d/w Dr Glover
[2017-02-20 05:11] LABS: HEMATOCRIT 26.1 % (35.0-51.0); MEAN CELL VOLUME 94.6 fl (80.0-94.0); MEAN CORPUSCULAR HEMOGLOBIN 31.5 pg (27.0-31.0); MEAN CORPUSCULAR HGB CONC 33.3 g/dL (33.0-37.0); RED CELL DISTRIBUTION WIDTH 15.1 % (11.5-14.5); WHITE BLOOD COUNT 9.4 K/uL (4.8-10.8)
[2017-02-20 05:26] LABS: CALCIUM 7.6 mg/dL (8.4-10.2); POTASSIUM 4.7 MMOL/L (3.6-5.0)
[2017-02-20] MEDS: Albuterol-Ipratrop 3 mg / 0.5 (3 ml) UD INH SCH ×4 (07:49→19:10)
--- NOTE | 2017-02-20 09:42 | CP.PCM.PN ---
Subjective - Date & Time of Evaluation Date of Evaluation: 02/20/17 Time of Evaluation: 09:42 - Subjective Subjective: pt seen and examined at beside. S/P BOX GLUER at 16:00 yesterday for asymptomatic tachycardia which resolved after Lopressor dosage and was restarted on Labetolol 200mg for HTN. Other than that, no acute events overnight. Pt sitting upright in bed, comfortably, NAD. Feeling a little down after experience with his family last night. OOB/ambulating with limitations as his legs swell. No new complaints. Denies fever/chills, headaches, changes in vision, CP/SOB/ palpitations, N/V/D/C, urinary symptoms, numbness/tingling. Objective - Vital Signs/Intake and Output Vital Signs (last 24 hours): Temp Pulse Resp BP Pulse Ox 98.4 F 77 18 158/88 H 95 02/20/17 08:35 02/20/17 08:35 02/20/17 08:35 02/20/17 08:35 02/20/17 08:35 Intake and Output: 02/20/17 02/20/17 06:59 18:59 Intake Total 360 Balance 360 - Medications Medications: Current Medications Albuterol/Ipratropium (Duoneb 3 Mg/0.5 Mg (3 Ml) Ud) 3 ml INH RQID [facility] Last Admin: 02/20/17 07:49 Dose: 3 ml Amlodipine Besylate (Norvasc) 5 mg PO DAILY [facility] Last Admin: 02/19/17 09:33 Dose: 5 mg Citalopram Hydrobromide (Celexa) 20 mg PO DAILY [facility] Last Admin: 02/19/17 09:34 Dose: 20 mg Clonidine HCl (Catapres) 0.3 mg PO TID [facility] Last Admin: 02/19/17 17:28 Dose: 0.3 mg Fluticasone Propionate (Flonase) 2 spr JEFE DAILY [facility] Last Admin: 02/19/17 10:30 Dose: 2 spr Furosemide (Lasix) 40 mg IVP BID [facility] Last Admin: 02/19/17 17:29 Dose: 40 mg Hydralazine HCl (Apresoline) 25 mg PO Q8 [facility] Last Admin: 02/20/17 00:06 Dose: 25 mg Isoniazid (Niazid) 300 mg PO DAILY [facility] Last Admin: 02/19/17 09:35 Dose: 300 mg Labetalol HCl (Trandate) 200 mg PO Q12H [facility] Last Admin: 02/19/17 20:46 Dose: 200 mg Metolazone (Zaroxolyn) 5 mg PO BID [facility] Last Admin: 02/19/17 17:29 Dose: 5 mg Ondansetron HCl (Zofran Inj) 4 mg IVP Q6 PRN PRN Reason: Nausea/Vomiting Prednisone (Prednisone Tab) 25 mg PO DAILY [facility] Last Admin: 02/19/17 09:32 Dose: 25 mg Pyridoxine HCl (Vitamin B6) 100 mg PO DAILY [facility] Last Admin: 02/19/17 09:32 Dose: 100 mg - Labs Labs: 02/20/17 04:00 02/20/17 04:00 PT 38.0 SECONDS (9.6-11.2) H* D 02/20/17 04:00 INR 3.65 (0.92-1.08) H 02/20/17 04:00 APTT 26.9 SECONDS (23.3-32.5) 02/15/17 05:16 - Constitutional Appears: Non-toxic, No Acute Distress - Eye Exam Eye Exam: EOMI Pupil Exam: PERRL - ENT Exam ENT Exam: Mucous Membranes Moist - Respiratory Exam Respiratory Exam: Wheezes, NORMAL BREATHING PATTERN. absent: Rales, Rhonchi, Respiratory Distress Additional comments: minor scattered expiratory wheezes in both lung magaña, stable since last physical. - Cardiovascular Exam Cardiovascular Exam: REGULAR RHYTHM, RRR, +S1, +S2, Murmur. absent: JVD, Rubs Additional comments: chronic systolic murmur - GI/Abdominal Exam GI & Abdominal Exam: Soft, Normal Bowel Sounds. absent: Distended, Firm, Guarding, Rigid, Tenderness - Extremities Exam Extremities Exam: Full ROM, Pedal Edema. absent: Calf Tenderness, Joint Swelling, Tenderness Additional comments: - -2+ pitting pedal edema bilaterally -bilateral upper extremity edema, secondary from prolonged positioning - Neurological Exam Neurological Exam: Alert, Awake, CN II-XII Intact, Normal Gait - Psychiatric Exam Psychiatric exam: Normal Affect, Normal Mood. absent: Homicidal Ideation, Suicidal Ideation - Skin Skin Exam: Dry, Intact, Normal Color, Warm Assessment and Plan - Assessment and Plan (Free Text) Assessment: 67 yo homeless M w PMHx of ANCA Vasculitis, DVT of RUE, CKD, HTN, etoh abuse, COPD, and CHF is admitted for worsening SOB. 1. 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 Acute exacerbation of CHF, systolic -Cardio Consult: likely acute systolic HF, consider right sided -Lasix 40mg IV BID -daily weights -f/u I/O's -LE edema stable 3. Acute exacerbation of CKD Stage 4 -BUN/Cr slowly trending down; today 102/1.9 -prednisone dosage at 40 4. RUE DVT/DVT prophylaxis -Will need total of 3 months of anticoagulation, as per previous admission note -Lovenox last dose 02/19; now only on warfarin -INR: 3.65 today, supratherapeutic; no bleeding, will hold warfarin dose today and f/u PT/INR on 02/21. -Hem/Onc Consult -SCDs/ambulation 5. HTN (uncontrolled) -Hydralazine 25mg PO Q8H -Clonidine 0.3mg PO TID -Norvasc 5mg PO Daily -Labetolol 200mg BID added 6. Latent TB -Isoniazid 300mg PO Daily -Pyridoxine 100mg PO Daily -f/u ID Consult 7. Chronic Anemia -Chronic, secondary to CKD -Type and screen -S/P 2 units PRBCs (02/18) -repeat H/H: 8.7/21.1 -discussed case with Dr. Sandoval, pt will recieve one more unit of PRBCs before initiating cyclophosphamide tx on 02/21. 8. Depression -Celexa 20mg PO Daily
[2017-02-20] MEDS: metOLazone 5 MG TAB PO SCH ×2 (09:52→17:19)
[2017-02-20] MEDS: Pyridoxine 100 mg Tab PO SCH (09:56)
--- NOTE | 2017-02-20 16:06 | CARD ---
APPROVED REPORT EKG Measurement Heart [id number] MI [id number] <Conclusion> Sinus tachycardia Possible Left atrial enlargement Septal infarct, age undetermined Abnormal ECG
[2017-02-21 07:12] LABS: HEMATOCRIT 31.8 % (35.0-51.0); MEAN CELL VOLUME 92.3 fl (80.0-94.0); MEAN CORPUSCULAR HEMOGLOBIN 30.8 pg (27.0-31.0); MEAN CORPUSCULAR HGB CONC 33.3 g/dL (33.0-37.0); RED CELL DISTRIBUTION WIDTH 16.2 % (11.5-14.5); WHITE BLOOD COUNT 10.7 K/uL (4.8-10.8)
[2017-02-21 07:17] LABS: CALCIUM 8.2 mg/dL (8.4-10.2); POTASSIUM 4.9 MMOL/L (3.6-5.0)
[2017-02-21] MEDS: Albuterol-Ipratrop 3 mg / 0.5 (3 ml) UD INH SCH ×4 (07:30→19:42)
--- NOTE | 2017-02-21 07:48 | CP.PCM.PN ---
Subjective - Date & Time of Evaluation Date of Evaluation: 02/21/17 Time of Evaluation: 07:48 - Subjective Subjective: pt seen and examined at bedside this morning. No acute events overnight. S/P 1 unit PRBC transfusion last night. Sitting upright comfortably in bed, NAD. Only complaint is that he is worried about beginning the cyclophosphamide treatment after the way it made him feel last time. No other new medical complaints. OOB/ ambulating without dizziness. Denies fever/chills, headaches, changes in vision , dizziness/lightheadedness, CP/SOB/palpitations, N/V/D/C, bleeding episodes, numbness/tingling. Objective - Vital Signs/Intake and Output Vital Signs (last 24 hours): Temp Pulse Resp BP Pulse Ox 97.6 F 110 H 20 183/96 H 95 02/21/17 05:00 02/21/17 05:00 02/21/17 05:00 02/21/17 07:02 02/21/17 05:00 - Medications Medications: Current Medications Albuterol/Ipratropium (Duoneb 3 Mg/0.5 Mg (3 Ml) Ud) 3 ml INH RQID [facility] Last Admin: 02/20/17 19:10 Dose: 3 ml Amlodipine Besylate (Norvasc) 5 mg PO DAILY [facility] Last Admin: 02/20/17 09:52 Dose: 5 mg Citalopram Hydrobromide (Celexa) 20 mg PO DAILY [facility] Last Admin: 02/20/17 09:51 Dose: 20 mg Clonidine HCl (Catapres) 0.3 mg PO TID [facility] Last Admin: 02/20/17 17:18 Dose: 0.3 mg Famotidine (Pepcid) 20 mg IVP ONCE ONE Stop: 02/21/17 10:01 Fluticasone Propionate (Flonase) 2 spr JEFE DAILY [facility] Last Admin: 02/20/17 09:51 Dose: 2 spr Furosemide (Lasix) 40 mg IVP BID [facility] Last Admin: 02/20/17 18:59 Dose: Not Given Hydralazine HCl (Apresoline) 25 mg PO Q8 [facility] Last Admin: 02/21/17 00:41 Dose: 25 mg Cyclophosphamide 600 mg/ (Sodium Chloride) 250 mls @ 0 mls/hr IV ONCE ONE PRN Reason: Per Protocol Stop: 02/21/17 11:32 Dexamethasone 10 mg/ Sodium (Chloride) 51 mls @ 102 mls/hr IVPB ONCE ONE Stop: 02/21/17 12:07 Diphenhydramine HCl 25 mg/ (Sodium Chloride) 50.5 mls @ 101 mls/hr IVPB ONCE ONE Stop: 02/21/17 12:03 Isoniazid (Niazid) 300 mg PO DAILY [facility] Last Admin: 02/20/17 09:52 Dose: 300 mg Labetalol HCl (Trandate) 200 mg PO Q12H [facility] Last Admin: 02/20/17 21:33 Dose: 200 mg Metolazone (Zaroxolyn) 5 mg PO BID [facility] Last Admin: 02/20/17 17:19 Dose: 5 mg Ondansetron HCl (Zofran Inj) 4 mg IVP Q6 PRN PRN Reason: Nausea/Vomiting Prednisone (Prednisone Tab) 25 mg PO DAILY [facility] Last Admin: 02/20/17 09:53 Dose: 25 mg Pyridoxine HCl (Vitamin B6) 100 mg PO DAILY [facility] Last Admin: 02/20/17 09:56 Dose: 100 mg - Labs Labs: 02/21/17 05:50 02/21/17 05:50 PT 31.4 SECONDS (9.6-11.2) H* D 02/21/17 05:50 INR 3.02 (0.92-1.08) H 02/21/17 05:50 APTT 26.9 SECONDS (23.3-32.5) 02/15/17 05:16 - Constitutional Appears: Non-toxic, No Acute Distress - Eye Exam Eye Exam: Conjunctival injection, EOMI Pupil Exam: PERRL - ENT Exam ENT Exam: Mucous Membranes Moist - Respiratory Exam Respiratory Exam: Decreased Breath Sounds, Wheezes, NORMAL BREATHING PATTERN. absent: Rales, Rhonchi, Respiratory Distress Additional comments: decreased breath sounds at lung bases, wheezes not as pronounced today. - Cardiovascular Exam Cardiovascular Exam: REGULAR RHYTHM, RRR, +S1, +S2, Murmur (systolic murmur). absent: JVD - GI/Abdominal Exam GI & Abdominal Exam: Soft, Normal Bowel Sounds. absent: Firm, Guarding, Rigid, Tenderness - Extremities Exam Extremities Exam: Full ROM, Pedal Edema. absent: Calf Tenderness, Tenderness Additional comments: 2+ pitting pedal edema bilaterally, drying skin -decreased bilateral edema of upper extremities after pt has increased activity and ambulation - Neurological Exam Neurological Exam: Alert, Awake, CN II-XII Intact, Oriented x3 - Psychiatric Exam Psychiatric exam: Normal Affect, Normal Mood - Skin Skin Exam: Dry, Intact, Normal Color, Warm Assessment and Plan - Assessment and Plan (Free Text) Assessment: 67 yo homeless M w PMHx of ANCA Vasculitis, DVT of RUE, CKD, HTN, etoh abuse, COPD, and CHF is admitted for worsening SOB. 1. 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 Acute exacerbation of CHF, systolic -Cardio Consult: likely acute systolic HF, consider right sided -Lasix 40mg IV BID -daily weights -f/u I/O's -LE edema stable 3. Acute exacerbation of CKD Stage 4 -BUN/Cr stabilizing; today 103/1.9 -prednisone dosage at 40mg 4. RUE DVT/DVT prophylaxis -Will need total of 3 months of anticoagulation, as per previous admission note -Lovenox last dose 02/19; now only on warfarin -INR: 3.02 today, supratherapeutic; no bleeding, will resume warfarin dose today and f/u PT/INR on 02/22. -Hem/Onc Consult -SCDs/ambulation -Warfarin 4mg 5. HTN (uncontrolled) -Hydralazine 25mg PO Q8H -Clonidine 0.3mg PO TID -Norvasc 5mg PO Daily -Labetolol 200mg BID 6. Latent TB -Isoniazid 300mg PO Daily -Pyridoxine 100mg PO Daily 7. Chronic Anemia -Chronic, secondary to CKD -S/P 3 units PRBCs (02/18)/(02/20) -02/21 H/H: 10.6/31.8 8. Depression -Celexa 20mg PO Daily
[2017-02-21] MEDS ORDERED: Dexamethasone 10 MG in Sodium Chloride 0.9% 50 ML IVPB ONE (09:15)
[2017-02-21] MEDS: Pyridoxine 100 mg Tab PO SCH (09:21)
[2017-02-21] MEDS: metOLazone 5 MG TAB PO SCH ×2 (09:21→17:12)
--- NOTE | 2017-02-21 09:29 | CP.PCM.PN ---
Subjective - Date & Time of Evaluation Date of Evaluation: 02/21/17 Time of Evaluation: 09:25 - Subjective Subjective: Interim events noted. Seated up on EOB. Had [employer] the other day because of tachyarrhythmia. Feels relatively well at the present time. Dependant edema ++ bilaterally. Dullness to percussion of the left lung base. Breath sounds are diminished, but otherwise unremarkable. No egophony or bronchial breathing. Will request CXR 4 views. Objective - Vital Signs/Intake and Output Vital Signs (last 24 hours): Temp Pulse Resp BP Pulse Ox 97.6 F 111 H 18 162/85 H 96 02/21/17 08:00 02/21/17 09:20 02/21/17 08:00 02/21/17 09:22 02/21/17 08:00 - Medications Medications: Current Medications Albuterol/Ipratropium (Duoneb 3 Mg/0.5 Mg (3 Ml) Ud) 3 ml INH RQID [facility] Last Admin: 02/21/17 07:30 Dose: 3 ml Amlodipine Besylate (Norvasc) 5 mg PO DAILY [facility] Last Admin: 02/21/17 09:20 Dose: 5 mg Citalopram Hydrobromide (Celexa) 20 mg PO DAILY [facility] Last Admin: 02/21/17 09:20 Dose: 20 mg Clonidine HCl (Catapres) 0.3 mg PO TID [facility] Last Admin: 02/21/17 09:18 Dose: 0.3 mg Fluticasone Propionate (Flonase) 2 spr JEFE DAILY [facility] Last Admin: 02/21/17 09:20 Dose: 2 spr Furosemide (Lasix) 40 mg IVP BID [facility] Last Admin: 02/21/17 09:22 Dose: 40 mg Hydralazine HCl (Apresoline) 25 mg PO Q8 [facility] Last Admin: 02/21/17 09:19 Dose: 25 mg Cyclophosphamide 600 mg/ (Sodium Chloride) 250 mls @ 0 mls/hr IV ONCE ONE PRN Reason: Per Protocol Stop: 02/21/17 11:32 Dexamethasone 10 mg/ Sodium (Chloride) 51 mls @ 102 mls/hr IVPB ONCE ONE Stop: 02/21/17 09:44 Diphenhydramine HCl 25 mg/ (Sodium Chloride) 50.5 mls @ 101 mls/hr IVPB ONCE ONE Stop: 02/21/17 09:44 Famotidine 20 mg/ Sodium (Chloride) 52 mls @ 104 mls/hr IVPB ONCE ONE Stop: 02/21/17 09:44 Ondansetron HCl 16 mg/ Sodium (Chloride) 58 mls @ 116 mls/hr IVPB ONCE ONE Stop: 02/21/17 09:45 Isoniazid (Niazid) 300 mg PO DAILY [facility] Last Admin: 02/21/17 09:19 Dose: 300 mg Labetalol HCl (Trandate) 200 mg PO Q12H [facility] Last Admin: 02/21/17 09:19 Dose: 200 mg Metolazone (Zaroxolyn) 5 mg PO BID [facility] Last Admin: 02/21/17 09:21 Dose: 5 mg Ondansetron HCl (Zofran Inj) 4 mg IVP Q6 PRN PRN Reason: Nausea/Vomiting Prednisone (Prednisone Tab) 25 mg PO DAILY [facility] Last Admin: 02/21/17 09:18 Dose: 25 mg Pyridoxine HCl (Vitamin B6) 100 mg PO DAILY [facility] Last Admin: 02/21/17 09:21 Dose: 100 mg - Labs Labs: 02/21/17 05:50 02/21/17 05:50 PT 31.4 SECONDS (9.6-11.2) H* D 02/21/17 05:50 INR 3.02 (0.92-1.08) H 02/21/17 05:50 APTT 26.9 SECONDS (23.3-32.5) 02/15/17 05:16 Assessment and Plan (1) ANCA-associated vasculitis Status: Chronic (2) Anasarca Status: Chronic (3) Productive cough Status: Chronic (4) Bronchiectasis Status: Chronic
--- NOTE | 2017-02-21 12:39 | CP.PCM.PN ---
Subjective - Date & Time of Evaluation Date of Evaluation: 02/21/17 Time of Evaluation: 12:35 - Subjective Subjective: Patient is out of bed No significant changes noted No daily weight reported Patient was given 1 unit of packed cells and repeat hemoglobin 10.8 Patient to receive Cytoxan today order was given. Continue monitoring Patient remained having leg edema continue Lasix and Zaroxolyn as order. 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 Objective - Vital Signs/Intake and Output Vital Signs (last 24 hours): Temp Pulse Resp BP Pulse Ox 97.6 F 111 H 18 162/85 H 96 02/21/17 08:00 02/21/17 09:20 02/21/17 08:00 02/21/17 09:22 02/21/17 08:00 - Medications Medications: Current Medications Albuterol/Ipratropium (Duoneb 3 Mg/0.5 Mg (3 Ml) Ud) 3 ml INH RQID [facility] Last Admin: 02/21/17 12:17 Dose: 3 ml Amlodipine Besylate (Norvasc) 5 mg PO DAILY [facility] Last Admin: 02/21/17 09:20 Dose: 5 mg Calcium/Vitamin D (Oyster Shell Calcium/Vitamin D 500 Mg-200 Iu) 1 tab PO BIDWM [facility] Citalopram Hydrobromide (Celexa) 20 mg PO DAILY [facility] Last Admin: 02/21/17 09:20 Dose: 20 mg Clonidine HCl (Catapres) 0.3 mg PO TID [facility] Last Admin: 02/21/17 09:18 Dose: 0.3 mg Fluticasone Propionate (Flonase) 2 spr JEFE DAILY [facility] Last Admin: 02/21/17 09:20 Dose: 2 spr Furosemide (Lasix) 40 mg IVP BID [facility] Last Admin: 02/21/17 09:22 Dose: 40 mg Hydralazine HCl (Apresoline) 25 mg PO Q8 [facility] Last Admin: 02/21/17 09:19 Dose: 25 mg Cyclophosphamide 600 mg/ (Sodium Chloride) 250 mls @ 0 mls/hr IV ONCE ONE PRN Reason: Per Protocol Stop: 02/21/17 11:32 Isoniazid (Niazid) 300 mg PO DAILY [facility] Last Admin: 02/21/17 09:19 Dose: 300 mg Labetalol HCl (Trandate) 200 mg PO Q12H [facility] Last Admin: 02/21/17 09:19 Dose: 200 mg Metolazone (Zaroxolyn) 5 mg PO BID [facility] Last Admin: 02/21/17 09:21 Dose: 5 mg Ondansetron HCl (Zofran Inj) 4 mg IVP Q6 PRN PRN Reason: Nausea/Vomiting Prednisone (Prednisone Tab) 25 mg PO DAILY [facility] Last Admin: 02/21/17 09:18 Dose: 25 mg Pyridoxine HCl (Vitamin B6) 100 mg PO DAILY [facility] Last Admin: 02/21/17 09:21 Dose: 100 mg Warfarin Sodium (Coumadin) 4 mg PO QD5 [facility] PRN Reason: Protocol Stop: 02/21/17 17:01 - Labs Labs: 02/21/17 05:50 02/21/17 05:50 PT 31.4 SECONDS (9.6-11.2) H* D 02/21/17 05:50 INR 3.02 (0.92-1.08) H 02/21/17 05:50 APTT 26.9 SECONDS (23.3-32.5) 02/15/17 05:16
[2017-02-21] MEDS ORDERED: SODIUM CHLORIDE 0.45% IV ONE (13:15)
[2017-02-21] MEDS ORDERED: CYCLOPHOSPHAMIDE IV ONE (13:15)
--- NOTE | 2017-02-21 13:34 | RAD ---
HISTORY: Pleural effusion. COMPARISON: 02/14/2017. TECHNIQUE: Chest PA and lateral FINDINGS: LUNGS: Left lower lobe consolidative changes likely related to left pleural effusion. PLEURA: Left pleural effusion, trace right pleural effusion. CARDIOVASCULAR: No radiographic findings to suggest acute or significant cardiovascular disease. OSSEOUS STRUCTURES: No significant abnormalities. VISUALIZED UPPER ABDOMEN: Normal. OTHER FINDINGS: None. IMPRESSION: Bilateral pleural effusions left larger than right with associated compressive atelectasis left lower lobe. Findings more prominent/conspicuous but likely unchanged compared to prior studies accounting for differences in technique.
--- NOTE | 2017-02-21 13:35 | RAD ---
PROCEDURE: Chest including decubitus views. HISTORY: pleural effusion COMPARISON: February 21, 2017. Two-view chest TECHNIQUE: Standard protocol for this study/examination. FINDINGS: Decubitus radiographs confirm bilateral pleural effusions left larger than right. These are free-flowing pleural effusions. Consolidative changes also identified primarily left lower lobe. IMPRESSION: Bilateral free-flowing pleural effusions.
[2017-02-21] MEDS: Calcium-Vit D 500 mg-200 Units Tab UD PO SCH (17:11)
[2017-02-22] MEDS ORDERED: Oxycodone/Acetaminophen 5/325 mg Tab PO ONE (04:21)
[2017-02-22] MEDS: Albuterol-Ipratrop 3 mg / 0.5 (3 ml) UD INH SCH ×3 (07:43→15:09)
--- NOTE | 2017-02-22 08:21 | CP.PCM.PN ---
Subjective - Date & Time of Evaluation Date of Evaluation: 02/22/17 Time of Evaluation: 08:09 - Subjective Subjective: pt seen and examined at bedside this morning. S/P cyclophosphamide treatment yesterday. Sitting up in bed, comfortably, no acute distress. Reports feeling well overall. OOB/ambulating without difficulty but reports legs swell after prolonged walking/standing. No new medical complaints. Reports feeling relieved and more positive. Denies fever/chills, headaches, changes in vision, CP/SOB/ Palpitations, N/V/D/C, urinary symptoms, numbness/tingling. Objective - Vital Signs/Intake and Output Vital Signs (last 24 hours): Temp Pulse Resp BP Pulse Ox 98.6 F 73 20 176/83 H 98 02/22/17 00:48 02/22/17 02:35 02/22/17 00:48 02/22/17 02:35 02/22/17 00:48 - Medications Medications: Current Medications Albuterol/Ipratropium (Duoneb 3 Mg/0.5 Mg (3 Ml) Ud) 3 ml INH RQID [facility] Last Admin: 02/22/17 07:43 Dose: 3 ml Amlodipine Besylate (Norvasc) 5 mg PO DAILY [facility] Last Admin: 02/21/17 09:20 Dose: 5 mg Calcium/Vitamin D (Oyster Shell Calcium/Vitamin D 500 Mg-200 Iu) 1 tab PO BIDWM [facility] Last Admin: 02/21/17 17:11 Dose: 1 tab Citalopram Hydrobromide (Celexa) 20 mg PO DAILY [facility] Last Admin: 02/21/17 09:20 Dose: 20 mg Clonidine HCl (Catapres) 0.3 mg PO TID [facility] Last Admin: 02/21/17 17:13 Dose: 0.3 mg Fluticasone Propionate (Flonase) 2 spr JEFE DAILY [facility] Last Admin: 02/21/17 09:20 Dose: 2 spr Furosemide (Lasix) 40 mg IVP BID [facility] Last Admin: 02/21/17 17:14 Dose: 40 mg Hydralazine HCl (Apresoline) 25 mg PO Q8 [facility] Last Admin: 02/22/17 02:35 Dose: 25 mg Isoniazid (Niazid) 300 mg PO DAILY [facility] Last Admin: 02/21/17 09:19 Dose: 300 mg Labetalol HCl (Trandate) 200 mg PO Q12H [facility] Last Admin: 02/21/17 23:19 Dose: 200 mg Lactic Acid (Lac-Hydrin 12% Lotion (225 G)) 1 applic TOP TID [facility] Last Admin: 02/21/17 17:13 Dose: 1 applic Metolazone (Zaroxolyn) 5 mg PO BID [facility] Last Admin: 02/21/17 17:12 Dose: 5 mg Ondansetron HCl (Zofran Inj) 4 mg IVP Q4 PRN PRN Reason: Nausea/Vomiting Prednisone (Prednisone Tab) 25 mg PO DAILY [facility] Last Admin: 02/21/17 09:18 Dose: 25 mg Pyridoxine HCl (Vitamin B6) 100 mg PO DAILY [facility] Last Admin: 02/21/17 09:21 Dose: 100 mg - Labs Labs: 02/21/17 05:50 02/21/17 05:50 PT 38.5 SECONDS (9.6-11.2) H* D 02/22/17 04:45 INR 3.70 (0.92-1.08) H 02/22/17 04:45 APTT 26.9 SECONDS (23.3-32.5) 02/15/17 05:16 - Constitutional Appears: Non-toxic, No Acute Distress - Eye Exam Eye Exam: EOMI Pupil Exam: PERRL Additional comments: left lateral subconjuctival hemorrhage still appreciated, diminishing - ENT Exam ENT Exam: Mucous Membranes Moist - Respiratory Exam Respiratory Exam: Decreased Breath Sounds, Wheezes, NORMAL BREATHING PATTERN. absent: Accessory Muscle Use, Clear to Ausculation Bilateral, Rales, Respiratory Distress Additional comments: decreased breath sounds at lung bases, scattered wheezes throughout - Cardiovascular Exam Cardiovascular Exam: REGULAR RHYTHM, RRR, +S1, +S2. absent: Tachycardia, JVD, Rubs, Murmur - GI/Abdominal Exam GI & Abdominal Exam: Soft, Normal Bowel Sounds. absent: Firm, Guarding, Rigid, Tenderness - Extremities Exam Additional comments: bilateral pitting pedal edema, 2+, dry skin improved after topical ointment application - Neurological Exam Neurological Exam: Alert, Awake, Oriented x3 - Psychiatric Exam Psychiatric exam: Normal Affect, Normal Mood Assessment and Plan - Assessment and Plan (Free Text) Assessment: 67 yo homeless M w PMHx of ANCA Vasculitis, DVT of RUE, CKD, HTN, etoh abuse, COPD, and CHF is admitted for worsening SOB. 1. 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 Acute exacerbation of CHF, systolic -Cardio Consult: likely acute systolic HF, consider right sided -Lasix 40mg IV BID -Metolazone 5mg BID -daily weights -f/u I/O's -LE edema stable -Pulmonology consult: Dr. Mayes reports progressive improvement in lungs as per CXR. 3. Acute exacerbation of CKD Stage 4 -BUN/Cr stabilizing; today 103/1.9 -prednisone dosage at 25mg 4. RUE DVT/DVT prophylaxis -Will need total of 3 months of anticoagulation, as per previous admission note -Lovenox last dose 02/19; now only on warfarin -INR: 3.75 today, supratherapeutic; no bleeding, will hold warfarin today -SCDs/ambulation 5. HTN (uncontrolled) -Hydralazine 25mg PO Q8H -Clonidine 0.3mg PO TID -Norvasc 5mg PO Daily -Labetolol 200mg BID 6. Latent TB -Isoniazid 300mg PO Daily -Pyridoxine 100mg PO Daily 7. Chronic Anemia -Chronic, secondary to CKD -S/P 3 units PRBCs (02/18)/(02/20) -02/21 H/H: 10.6/31.8 8. Depression -Celexa 20mg PO Daily
--- NOTE | 2017-02-22 09:12 | CP.PCM.PN ---
Subjective - Date & Time of Evaluation Date of Evaluation: 02/22/17 Time of Evaluation: 09:10 - Subjective Subjective: Chest x-rays show small, free-flowing pleural effusions bilaterally. There appears to be an element of pleural thickening at the left base as well. This represents significant improvement from prior studies. Objective - Vital Signs/Intake and Output Vital Signs (last 24 hours): Temp Pulse Resp BP Pulse Ox 97.7 F 73 20 153/75 H 97 02/22/17 08:00 02/22/17 08:00 02/22/17 08:00 02/22/17 08:00 02/22/17 08:00 Intake and Output: 02/21/17 02/22/17 23:59 11:59 Intake Total 450 Balance 450 - Medications Medications: Current Medications Albuterol/Ipratropium (Duoneb 3 Mg/0.5 Mg (3 Ml) Ud) 3 ml INH RQID [facility] Last Admin: 02/22/17 07:43 Dose: 3 ml Amlodipine Besylate (Norvasc) 5 mg PO DAILY [facility] Last Admin: 02/21/17 09:20 Dose: 5 mg Calcium/Vitamin D (Oyster Shell Calcium/Vitamin D 500 Mg-200 Iu) 1 tab PO BIDWM [facility] Last Admin: 02/21/17 17:11 Dose: 1 tab Citalopram Hydrobromide (Celexa) 20 mg PO DAILY [facility] Last Admin: 02/21/17 09:20 Dose: 20 mg Clonidine HCl (Catapres) 0.3 mg PO TID [facility] Last Admin: 02/21/17 17:13 Dose: 0.3 mg Fluticasone Propionate (Flonase) 2 spr JEFE DAILY [facility] Last Admin: 02/21/17 09:20 Dose: 2 spr Furosemide (Lasix) 40 mg IVP BID [facility] Last Admin: 02/21/17 17:14 Dose: 40 mg Hydralazine HCl (Apresoline) 25 mg PO Q8 [facility] Last Admin: 02/22/17 02:35 Dose: 25 mg Isoniazid (Niazid) 300 mg PO DAILY [facility] Last Admin: 02/21/17 09:19 Dose: 300 mg Labetalol HCl (Trandate) 200 mg PO Q12H [facility] Last Admin: 02/21/17 23:19 Dose: 200 mg Lactic Acid (Lac-Hydrin 12% Lotion (225 G)) 1 applic TOP TID [facility] Last Admin: 02/21/17 17:13 Dose: 1 applic Metolazone (Zaroxolyn) 5 mg PO BID [facility] Last Admin: 02/21/17 17:12 Dose: 5 mg Ondansetron HCl (Zofran Inj) 4 mg IVP Q4 PRN PRN Reason: Nausea/Vomiting Prednisone (Prednisone Tab) 25 mg PO DAILY [facility] Last Admin: 02/21/17 09:18 Dose: 25 mg Pyridoxine HCl (Vitamin B6) 100 mg PO DAILY [facility] Last Admin: 02/21/17 09:21 Dose: 100 mg - Labs Labs: 02/21/17 05:50 02/21/17 05:50 PT 38.5 SECONDS (9.6-11.2) H* D 02/22/17 04:45 INR 3.70 (0.92-1.08) H 02/22/17 04:45 APTT 26.9 SECONDS (23.3-32.5) 02/15/17 05:16 Assessment and Plan (1) ANCA-associated vasculitis Status: Chronic (2) Anasarca Status: Chronic (3) Productive cough Status: Chronic (4) Bronchiectasis Status: Chronic
[2017-02-22] MEDS: Pyridoxine 100 mg Tab PO SCH (09:14)
[2017-02-22] MEDS: metOLazone 5 MG TAB PO SCH ×2 (09:16→16:19)
[2017-02-22] MEDS: Calcium-Vit D 500 mg-200 Units Tab UD PO SCH ×2 (09:18→16:19)
[2017-02-22 12:41] VITALS: PULSE 78
[2017-02-22 15:58] VITALS: RESP 20; TEMP 97.9; O2SAT 98
[2017-02-22 16:24] VITALS: BP 149/79
--- NOTE | 2017-02-23 10:05 | CP.PCM.DIS ---
Provider - Provider Date of Admission: 02/15/17 15:27 Attending physician: Aaliyah Knott MD Primary care physician: Brady Anne MD Time Spent in preparation of Discharge (in minutes): 35 Hospital Course - Lab Results Lab Results: Most Recent Lab Values WBC 10.7 K/uL (4.8-10.8) 02/21/17 05:50 RBC 3.44 Mil/uL (4.40-5.90) L 02/21/17 05:50 Hgb 10.6 g/dL (12.0-18.0) L 02/21/17 05:50 Hct 31.8 % (35.0-51.0) L 02/21/17 05:50 MCV 92.3 fl (80.0-94.0) D 02/21/17 05:50 MCH 30.8 pg (27.0-31.0) 02/21/17 05:50 MCHC 33.3 g/dL (33.0-37.0) 02/21/17 05:50 RDW 16.2 % (11.5-14.5) H 02/21/17 05:50 Plt Count 169 K/uL (130-400) 02/21/17 05:50 MPV 8.5 fl (7.2-11.7) 02/14/17 21:15 Neut % (Auto) 91.2 % (50.0-75.0) H 02/14/17 21:15 Lymph % (Auto) 5.5 % (20.0-40.0) L 02/14/17 21:15 Harding % (Auto) 2.9 % (0.0-10.0) 02/14/17 21:15 Eos % (Auto) 0.3 % (0.0-4.0) 02/14/17 21:15 Baso % (Auto) 0.1 % (0.0-2.0) 02/14/17 21:15 Neut # 9.9 K/uL (1.8-7.0) H 02/14/17 21:15 Lymph # 0.6 K/uL (1.0-4.3) L 02/14/17 21:15 Harding # 0.3 K/uL (0.0-0.8) 02/14/17 21:15 Eos # 0.0 K/uL (0.0-0.7) 02/14/17 21:15 Baso # 0.0 K/uL (0.0-0.2) 02/14/17 21:15 Neutrophils % (Manual) 91 % (42-75) H 02/14/17 21:15 Band Neutrophils % 1 % (0-2) 02/14/17 21:15 Lymphocytes % (Manual) 4 % (20-50) L 02/14/17 21:15 Monocytes % (Manual) 3 % (0-10) 02/14/17 21:15 Myelocytes % 1 % (0-0) H 02/14/17 21:15 Platelet Estimate Normal (NORMAL) 02/14/17 21:15 Large Platelets Present 02/14/17 21:15 Giant Platelets Present 02/14/17 21:15 Hypochromasia (manual) Moderate 02/14/17 21:15 Anisocytosis (manual) Slight 02/14/17 21:15 Ovalocytes Slight 02/14/17 21:15 Schistocytes Slight 02/14/17 21:15 PT 38.5 SECONDS (9.6-11.2) H* D 02/22/17 04:45 INR 3.70 (0.92-1.08) H 02/22/17 04:45 APTT 26.9 SECONDS (23.3-32.5) 02/15/17 05:16 Sodium 139 mmol/l (132-148) 02/21/17 05:50 Potassium 4.9 MMOL/L (3.6-5.0) 02/21/17 05:50 Chloride 105 mmol/L (98-107) 02/21/17 05:50 Carbon Dioxide 22 mmol/L (22-30) 02/21/17 05:50 Anion Gap 17 (10-20) 02/21/17 05:50 BUN 103 mg/dl (9-20) H* 02/21/17 05:50 Creatinine 1.9 mg/dL (0.8-1.5) H 02/21/17 05:50 Est GFR ( Amer) 43 02/21/17 05:50 Est GFR (Non-Af Amer) 36 02/21/17 05:50 Random Glucose 87 mg/dL (75-110) 02/21/17 05:50 Calcium 8.2 mg/dL (8.4-10.2) L 02/21/17 05:50 Total Bilirubin 0.2 mg/dl (0.2-1.3) 02/17/17 05:55 AST 28 U/L (17-59) 02/17/17 05:55 ALT 29 U/L (21-72) 02/17/17 05:55 Alkaline Phosphatase 41 U/L (38-126) 02/17/17 05:55 Troponin I 0.0180 ng/mL (0.00-0.120) 02/14/17 21:15 NT-Pro-B Natriuret Pep 2290 pg/ml (0-900) H 02/18/17 06:02 Total Protein 4.8 G/DL (6.3-8.2) L 02/17/17 05:55 Albumin 2.3 g/dL (3.5-5.0) L 02/17/17 05:55 Globulin 2.5 gm/dL (2.2-3.9) 02/17/17 05:55 Albumin/Globulin Ratio 0.9 (1.0-2.1) L 02/17/17 05:55 Urine Color Yellow (YELLOW) 02/15/17 02:35 Urine Clarity Slighty-cloudy (Clear) 02/15/17 02:35 Urine pH 5.0 (5.0-8.0) 02/15/17 02:35 Ur Specific [place] 1.009 (1.003-1.030) 02/15/17 02:35 Urine Protein 100 mg/dL (NEGATIVE) 02/15/17 02:35 Urine Glucose (UA) Neg mg/dL (Normal) 02/15/17 02:35 Urine Ketones Negative mg/dL (NEGATIVE) 02/15/17 02:35 Urine Blood Large (NEGATIVE) 02/15/17 02:35 Urine Nitrate Negative (NEGATIVE) 02/15/17 02:35 Urine Bilirubin Negative (NEGATIVE) 02/15/17 02:35 Urine Urobilinogen 0.2-1.0 mg/dL (0.2-1.0) 02/15/17 02:35 Ur Leukocyte Esterase Neg Thai/uL (Negative) 02/15/17 02:35 Urine RBC (Auto) 456 /hpf (0-3) H 02/15/17 02:35 Urine Microscopic WBC 2 /hpf (0-5) 02/15/17 02:35 Ur Squamous Epith Cells < 1 /hpf (0-5) 02/15/17 02:35 Urine Bacteria Rare (<OCC) 02/15/17 02:35 Blood Type A POSITIVE 02/20/17 12:23 Antibody Screen Negative 02/20/17 12:23 Crossmatch See Detail 02/20/17 12:23 BBK History Checked Patient has bt 02/20/17 12:23 - Hospital Course Hospital Course: 67 yo homeless male with a PMHx remarkable for ANCA Vasculitis, DVT of RUE, CKD , HTN, etoh abuse, COPD, and CHF was admitted for worsening SOB. He was found to have SOB secondary to acute exacerbation of systolic CHF and his ANCA negative paucimmune GN. During his stay, his SOB improved with IV lasix administration and pulmonology and nephrology were on board. It was decided he would need cyclophosphomide treatment. He was transfused with 3 units of PRBCs. Hemoglobin was stable at 10.6. He was given a lower dose of cyclophosphamide and tolerated it well. Pulmonology and Nephrology signed off and considered the pt stable. After an uneventful hospital stay he was discharged in stable condition. Prescriptions: Hydralazine 25mg PO Q8 Clonidine 0.3 PO TID Furosemide 40mg PO daily Amlodipine 10mg PO Daily Labetolol 200mg PO BID Prednisone 20mg PO daily Discharge Exam - Head Exam Head Exam: NORMAL INSPECTION - Eye Exam Eye Exam: EOMI Pupil Exam: PERRL Additional comments: left subconjunctival hemorrhage, resolving - ENT Exam ENT Exam: Mucous Membranes Moist - Neck Exam Neck exam: Full Rom - Respiratory Exam Respiratory Exam: Wheezes, NORMAL BREATHING PATTERN. absent: Accessory Muscle Use, Rales, Rhonchi Additional comments: scattered wheezes throughout, decreased breath sounds at lung bases - Cardiovascular Exam Cardiovascular Exam: REGULAR RHYTHM, RRR, +S1, +S2, Systolic Murmur. absent: JVD - GI/Abdominal Exam GI & Abdominal Exam: Normal Bowel Sounds, Unremarkable - Extremities Exam Extremities exam: pedal edema, pedal pulses present Additional comments: 2+ pitting edema - Neurological Exam Neurological exam: Alert, CN II-XII Intact, Normal Gait, Oriented x3, Reflexes Normal - Psychiatric Exam Psychiatric exam: Normal Affect, Normal Mood - Skin Skin Exam: Dry, Intact, Normal Color, Warm Discharge Plan - Follow Up Plan Condition: STABLE Disposition: HOME/ ROUTINE Instructions: Cyclophosphamide (By injection), Heart Failure (DC), Neutropenia (GEN), Chemo Induced Nausea and Vomiting (GEN) Additional Instructions: FOLLOW UP::[facility] 02/24/17 for latent TB at [address]am [address] [place] [address] Please bring discharge instructions with you. FOLLOW UP:: Infusion Center at 9am 03/21/17 [facility] [phone] Time :8 am Referrals: Brady Anne MD [Primary Care Provider] -
== END 2017-02-22 16:10 | disposition home or self-care (01) | DRG 561 ==
LOC: H.ER 20:31 → H.ERHOLD 22:22 → H.TEL 02-15 10:17 → OBSVTOIN 02-15 15:27 → H.TEL 02-16 19:22
PROVIDERS: ADMIT Family Medicine Geriatric Medicine; ATTEND Family Medicine Geriatric Medicine
PROC: 3E0F7GC Introduction of Other Therapeutic Substance into Respiratory Tract, Via Natural or Artificial Opening (ICD-10-PCS; principal; 2017-02-15)
DX: I77.6 Arteritis, unspecified (principal); I50.33 Acute on chronic diastolic (congestive) heart failure; J90 Pleural effusion, not elsewhere classified; N18.4 Chronic kidney disease, stage 4 (severe); I82.621 Acute embolism and thrombosis of deep veins of right upper extremity; N04.9 Nephrotic syndrome with unspecified morphologic changes; I47.1 Supraventricular tachycardia; I13.0 Hypertensive heart and chronic kidney disease with heart failure and stage 1 through stage 4 chronic kidney disease, or unspecified chronic kidney disease; J44.9 Chronic obstructive pulmonary disease, unspecified; Z59.0 Homelessness; J47.9 Bronchiectasis, uncomplicated; Z86.718 Personal history of other venous thrombosis and embolism; Z79.01 Long term (current) use of anticoagulants; R76.11 Nonspecific reaction to tuberculin skin test without active tuberculosis; F32.9 Major depressive disorder, single episode, unspecified; G40.909 Epilepsy, unspecified, not intractable, without status epilepticus; F10.10 Alcohol abuse, uncomplicated; M19.90 Unspecified osteoarthritis, unspecified site; K64.9 Unspecified hemorrhoids; Z87.891 Personal history of nicotine dependence; D63.1 Anemia in chronic kidney disease

== ENCOUNTER 2017-02-24 15:51 | Inpatient (IN) | payer SELFPAY ==
[2017-02-24 15:51] VITALS: BMI 26.4
--- NOTE | 2017-02-24 16:34 | ED PDOC ---
HPI: General Adult Time Seen by Provider: 02/24/17 16:12 Chief Complaint (Nursing): Shortness Of Breath Chief Complaint (Provider): Shortness Of Breath History Per: Patient History/Exam Limitations: no limitations Onset/Duration Of Symptoms: Days (x2 days) Additional Complaint(s): 67 y/o male with a past medical history of CHF, COPD, Deep Vein thrombosis, and hypertension who presents to the emergency department with a complaint of shortness of breath x2 days. Associated with vomiting (non-bloody), bloody urine (no clots), and back pain. Reports taking all high blood pressure medications as directed. Denies diarrhea. Of note, patient visited the ER on 02/23/17 and was diagnosed with ANCA Vasculitis, DVT of RUE, CKD, hTN, COPD, and CHF. Was admitted for worsening shortness of breath. PMD: Dr. Quentin Chu MD Past Medical History Reviewed: Historical Data, Nursing Documentation, Vital Signs Vital Signs: Last Vital Signs Temp 99.1 F 02/28/17 13:00 Pulse 83 02/28/17 13:00 Resp 18 02/28/17 13:00 BP 151/73 H 02/28/17 13:00 Pulse Ox 95 02/28/17 13:00 - Medical History PMH: Anemia, Anxiety, Arthritis, CHF, COPD, Depression, Deep Vein Thrombosis ( RUE), HTN, Pneumonia, Chronic Kidney Disease, Seizures Denies: HIV - Surgical History Surgical History: Denies: Coronary Stent - Family History Family History: States: Unknown Family Hx - Social History Alcohol: Social Drugs: Denies - Immunization History Hx Tetanus Toxoid Vaccination: No Hx Influenza Vaccination: No Hx Pneumococcal Vaccination: No - Home Medications Home Medications: Ambulatory Orders Medication Instructions Recorded Furosemide [Lasix] 40 mg PO DAILY vial 02/22/17 Labetalol [Trandate] 200 mg PO BID tab 02/22/17 amLODIPine [Norvasc] 10 mg PO DAILY tab 02/22/17 cloNIDine [Catapres] 0.3 mg PO TID tab 02/22/17 hydrALAZINE [Apresoline] 20 mg PO Q8 tab 02/22/17 predniSONE [predniSONE Tab] 20 mg PO DAILY tab 02/22/17 - Allergies Allergies/Adverse Reactions: Allergies Allergy/AdvReac Type Severity Reaction Status Date / Time sulfamethoxazole Allergy RASH Verified 02/24/17 15:59 [From ] trimethoprim [From ] Allergy RASH Verified 02/24/17 15:59 Review of Systems ROS Statement: Except As Marked, All Systems Reviewed And Found Negative Gastrointestinal: Positive for: Vomiting (Non bloody). Negative for: Diarrhea Genitourinary Male: Positive for: Hematuria (No clogs) Musculoskeletal: Positive for: Back Pain Physical Exam - Reviewed Nursing Documentation Reviewed: Yes Vital Signs Reviewed: Yes - Physical Exam Appears: Positive for: Non-toxic, Uncomfortable, In Acute Distress Head Exam: Positive for: ATRAUMATIC, NORMOCEPHALIC Skin: Positive for: Normal Color, Warm, Dry ENT: Positive for: Normal ENT Inspection. Negative for: Pharyngeal Erythema Neck: Positive for: Normal, Supple Cardiovascular/Chest: Positive for: Tachycardia (with regular rhythm). Negative for: Murmur Respiratory: Positive for: Normal Breath Sounds. Negative for: Accessory Muscle Use, Respiratory Distress Gastrointestinal/Abdominal: Positive for: Normal Exam, Soft. Negative for: Tenderness Extremity: Positive for: Pedal Edema (3+ pitting edema bilaterally to lower legs ). Negative for: Deformity Neurologic/Psych: Positive for: Alert, Oriented - Laboratory Results Result Diagrams: 02/27/17 06:25 02/28/17 05:40 - ECG O2 Sat by Pulse Oximetry: 96 (RA) Pulse Ox Interpretation: Normal Medical Decision Making Medical Decision Making: Time: 16:12 Initial impression: Vomiting differential includes gastritis, electrolyte abnormality, exacerbation of acute on chronic kidney disease, and coronary syndrome Initial plan: Type and Screen Stat ABG Shock Panel Electrocardiogram Stat Alcohol Serum Stat B-type Natriuretic Peptide COMP Metabolic Panel Magnesium Stat Phosphorous Stat Troponin I Stat ED Urine (POC) EKG-ED (EDNURTX) Stat CBC w/ differential Partial Thromboplastin Time (COAG) Chest Portable (RAD) Catapres 0.1 mg PO Lasix 40 mg IVP Blood Culture Stat Urine Culture Stat [place] Neck Whipper CONT IV Insertion ([place]) Urinalysis Stat Reevaluation Pt's labs c/w renal disease and heart failure. CXR w LEFT pleural effusion. 1600 On reeval, persistent tachycardia. Pt has comorbidities concerning for acute coronary disease and worsening heart/renal failure, w clinical signs demonstrating this. Needs hospitalization for stabilization. Scribe Attestation: Documented by Citlalli Mccollum, acting as a scribe for Katy Montano MD. Provider Scribe Attestation: All medical record entries made by the Scribe were at my direction and personally dictated by me. I have reviewed the chart and agree that the record accurately reflects my personal performance of the history, physical exam, medical decision making, and the department course for this patient. I have also personally directed, reviewed, and agree with the discharge instructions and disposition. Disposition - Clinical Impression Clinical Impression: Heart failure, CHF (congestive heart failure), Hypertension, Tachycardia Discussed With : Jennifer Barrera Counseled Patient/Family Regarding: Studies Performed, Diagnosis - Disposition Disposition Time: 18:00 Condition: GUARDED - Pt Status Changed To: Hospital Disposition Of: Observation - POA Present On Arrival: Deep Vein Thrombosis / PE (history)
[2017-02-24 16:38] LABS: ABG ALLEN TEST YES; ARTERIAL BLOOD GAS HCO3 23.6 mmol/L (21-28); ARTERIAL BLOOD GAS PH 7.42 (7.35-7.45); ARTERIAL BLOOD GAS PO2 85 mm/Hg (80-100)
[2017-02-24 17:09] LABS: BASO % 0.5 % (0.0-2.0); EOS # 0.2 K/uL (0.0-0.7); EOS % 2.1 % (0.0-4.0); LYMPH # 1.3 K/uL (1.0-4.3); LYMPH % 16.4 % (20.0-40.0); MEAN CELL VOLUME 91.6 fl (80.0-94.0); MEAN CORPUSCULAR HEMOGLOBIN 31.4 pg (27.0-31.0); MEAN CORPUSCULAR HGB CONC 34.2 g/dL (33.0-37.0); MEAN PLATELET VOLUME 7.7 fl (7.2-11.7); MONO # 0.4 K/uL (0.0-0.8); NEUT # 5.8 K/uL (1.8-7.0); WHITE BLOOD COUNT 7.6 K/uL (4.8-10.8)
--- NOTE | 2017-02-24 17:11 | RAD ---
HISTORY: Shortness of breath COMPARISON: 02/21/2017 FINDINGS: LUNGS: There is mild pulmonary venous congestion. PLEURA: There is no large right pleural effusion. There is a small left pleural effusion. No pneumothorax. There is fluid in the horizontal fissure. CARDIOVASCULAR: There is mild cardiomegaly. OSSEOUS STRUCTURES: No significant abnormalities. VISUALIZED UPPER ABDOMEN: Normal. OTHER FINDINGS: None. IMPRESSION: Small left pleural effusion. No evidence of large or pleural effusion. Mild pulmonary venous congestion.
[2017-02-24 17:30] LABS: ALCOHOL SERUM < 10 mg/dl (0-10); ALKALINE PHOSPHATASE 57 U/L (38-126); ALT/SGPT 28 U/L (21-72); AST/SGOT 33 U/L (17-59); BILIRUBIN,TOTAL 0.5 mg/dl (0.2-1.3); CARBON DIOXIDE 22 mmol/L (22-30); CHLORIDE 106 mmol/L (98-107); GFR AFRICAN-AMERICAN 29; GLUCOSE,RANDOM 102 mg/dL (75-110); MAGNESIUM 1.9 MG/DL (1.6-2.3); PHOSPHOROUS 5.5 mg/dl (2.5-4.5); SODIUM 139 mmol/l (132-148); TOTAL PROTEIN 5.8 G/DL (6.3-8.2)
[2017-02-24 17:41] LABS: PARTIAL THROMBOPLASTIN TIME 33.2 SECONDS (23.3-32.5)
[2017-02-24 17:43] LABS: BLOOD UREA NITROGEN 104 mg/dl (9-20)
[2017-02-24] MEDS ORDERED: Metoprolol Succinate 100 mg XL Tab PO STA (18:22)
[2017-02-24 18:50] LABS: RBC URINE 1558 /hpf (0-3); URINE BACTERIA RARE (<OCC); URINE BILIRUBIN NEGATIVE (NEGATIVE); URINE BLOOD LARGE (NEGATIVE); URINE COLOR RED (YELLOW); URINE GLUCOSE (UA) NEG (Normal); URINE KETONE NEGATIVE (NEGATIVE); URINE LEUKOCYTE ESTERASE NEG Leu/uL (Negative); URINE PROTEIN >=500 mg/dL (NEGATIVE); URINE UROBILINOGEN 0.2-1.0 mg/dL (0.2-1.0); WBC URINE 1 /hpf (0-5)
--- NOTE | 2017-02-24 18:59 | CP.PCM.HP ---
History of Present Illness - History of Present Illness History of Present Illness: 67 yo homeless M w PMHx of ANCA Vasculitis, DVT of RUE, CKD, HTN, etoh abuse, COPD, and CHF is admitted for SOB likely due to CHF & CKD. SOB in all positions , a/w GUIDRY and b/l lower extremity edema and tenderness. SOB same from last admission. He denies fevers/chills, dizziness, LOC, headaches, chest pain, or palpitations. During previous hospital stay, pt completed cytoxan and was transfused 3u pRBC, a/w vomiting. c/o hematuria, dysuria, left groin pain x3 days. On coumadin, duration for 3 months. 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 h/o Alcohol abuse. denies drug use. Homeless FHx: denies Medications: Warfarin 5 PO daily Celexa 20 PO daily Hydralazine 25mg PO Q8 Clonidine 0.3 PO TID Furosemide 40mg PO daily Amlodipine 10mg PO Daily Labetolol 200mg PO BID Prednisone 20mg PO daily ED course: -CBC, CMP BUN/Cr 104/2.7 INR 1.7 ABG pCO2/pO2/pH/lactate 34/85/7.42/0.4 pBNP 4290 -EKG with tachycardia -UA with RBC 1558 metoprolol 100mg PO x1 clonidine 0.1mg x1 lasix 40mg IV x1 Present on Admission - Present on Admission Any Indicators Present on Admission: Yes History of DVT/PE: Yes Review of Systems - Constitutional Constitutional: absent: Chills, Fever - EENT Eyes: absent: Change in Vision - Cardiovascular Cardiovascular: Dyspnea. absent: Chest Pain - Respiratory Respiratory: Dyspnea - Gastrointestinal Gastrointestinal: absent: Abdominal Pain - Genitourinary Genitourinary: Dysuria, Flank Pain, Hematuria - Musculoskeletal Musculoskeletal: absent: Back Pain - Integumentary Integumentary: absent: Unusual Bruising - Neurological Neurological: absent: Headaches - Hematologic/Lymphatic Hematologic: absent: Easy Bleeding Past Patient History - Infectious Disease Hx of Infectious Diseases: None - Past Medical History & Family History Past Medical History?: Yes - Past Social History Alcohol: Social Drugs: Denies - CARDIAC Hx Congestive Heart Failure: Yes Hx Hypertension: Yes - PULMONARY Hx Chronic Obstructive Pulmonary Disease (COPD): Yes Hx Pneumonia: Yes - NEUROLOGICAL Hx Seizures: Yes - HEENT Hx HEENT Problems: No - RENAL Hx Chronic Kidney Disease: Yes - ENDOCRINE/METABOLIC Hx Endocrine Disorders: No - HEMATOLOGICAL/ONCOLOGICAL Hx Anemia: Yes Hx Human Immunodeficiency Virus (HIV): No - INTEGUMENTARY Hx Dermatological Problems: No - MUSCULOSKELETAL/RHEUMATOLOGICAL Hx Arthritis: Yes - GASTROINTESTINAL Hx Hemorrhoids: Yes - GENITOURINARY/GYNECOLOGICAL Hx Genitourinary Disorders: No - PSYCHIATRIC Hx Anxiety: Yes Hx Depression: Yes - SURGICAL HISTORY Hx Coronary Stent: No - ANESTHESIA Hx Anesthesia: Yes Hx Anesthesia Reactions: No Meds Allergies/Adverse Reactions: Allergies Allergy/AdvReac Type Severity Reaction Status Date / Time sulfamethoxazole Allergy RASH Verified 02/24/17 15:59 [From ] trimethoprim [From ] Allergy RASH Verified 02/24/17 15:59 Physical Exam - Constitutional Appears: Well, No Acute Distress - Head Exam Head Exam: ATRAUMATIC, NORMAL INSPECTION - Eye Exam Eye Exam: Normal appearance - Neck Exam Neck exam: Positive for: Normal Inspection - Respiratory Exam Respiratory Exam: Rales (lower lung [place]) - Cardiovascular Exam Cardiovascular Exam: Tachycardia - GI/Abdominal Exam GI & Abdominal Exam: Soft. absent: Tenderness - Extremities Exam Extremities exam: Positive for: pedal edema, tenderness Additional comments: b/l posterior tib pulse present - Neurological Exam Neurological exam: Alert, Oriented x3 - Skin Skin Exam: Dry, Warm Results - Vital Signs Recent Vital Signs: Last Vital Signs Temp 98.3 F 02/24/17 16:00 Pulse 119 H 02/24/17 18:13 Resp 23 02/24/17 18:13 BP 175/99 H 02/24/17 18:13 Pulse Ox 96 02/24/17 18:13 - Labs Result Diagrams: 02/24/17 17:00 02/24/17 17:00 - EKG Data Rate: Tachycardia Assessment & Plan - Assessment and Plan (Free Text) Assessment: 67 yo homeless M w PMHx of ANCA Vasculitis, DVT of RUE, CKD, HTN, etoh abuse, COPD, and CHF is admitted for SOB likely due to CHF exacerbation and fluid overload 1) acute exacerbation of Systolic CHF, fluid overload -likely d/t recent transfusion -EKG with tachycardia -pBNP: 4290 -Lasix 40mg PO BID -Daily Weights -I/O's 2) hematuria - may be 2/2 cytoxan or coumadin -UA RBC 1558 - hold coumadin -H/H stable 3) RUE DVT -INR 1.7 -held Warfarin 5mg PO QD d/t hematuria -consider Hem/Onc Consult 4) HTN -Hydralazine 25mg PO Q8H -Clonidine 0.3mg PO TID -Norvasc 10mg PO Daily -Labetolol 200mg PO BID 5) CKD Stage 4, ANCA Vasculitis -BUN/Cr 104/2.7 -CrCl 32 -Prednisone 20mg PO daily -consider Nephro Consult 6) chronic Anemia -recent transfusion -H/H stable 7) Depression -Celexa 20mg PO Daily 8) Latent TB -Isoniazid 300mg PO Daily -Pyridoxine 100mg PO Daily 9) DVT Prophylaxis -held coumadin d/t hematuria -SCDs Decision To Admit - Pt Status Changed To: Hospital Disposition Of: Inpatient - Admit Certification Admit to Inpatient:: After my assessment, the patient will require hospitalization for at least two midnights. This is because of the severity of symptoms shown, intensity of services needed, and/or the medical risk in this patient being treated as an outpatient. - . Bed Request Type: Telemetry Admitting Physician: Samantha Lopez
[2017-02-25 06:13] LABS: HEMATOCRIT 27.4 % (35.0-51.0); MEAN CELL VOLUME 91.9 fl (80.0-94.0); MEAN CORPUSCULAR HEMOGLOBIN 31.1 pg (27.0-31.0); MEAN CORPUSCULAR HGB CONC 33.8 g/dL (33.0-37.0); WHITE BLOOD COUNT 6.6 K/uL (4.8-10.8)
[2017-02-25 06:29] LABS: ALB/GLOB RATIO 0.9 (1.0-2.1); BILIRUBIN,TOTAL 0.4 mg/dl (0.2-1.3); CALCIUM 7.7 mg/dL (8.4-10.2); POTASSIUM 4.9 MMOL/L (3.6-5.0); TOTAL PROTEIN 5.1 G/DL (6.3-8.2)
[2017-02-25 06:35] LABS: PARTIAL THROMBOPLASTIN TIME 39.3 SECONDS (23.3-32.5)
--- NOTE | 2017-02-25 07:26 | CP.PCM.PN ---
Addendum entered and electronically signed by Micki Ryan MD 02/25/17 13:55: Pt noted to be DNR/DNI on prior admission. I spoke to pt regarding this. Pt states that if his heart were to stop, he wants everything done to help him. States if his breathing stops, would like everything done to help him. Pt then adds that if nothing works, then he "doesn 't want to be a vegetable." Full code status maintained as of now. Original Note: Subjective - Date & Time of Evaluation Date of Evaluation: 02/25/17 Time of Evaluation: 08:00 - Subjective Subjective: Pt seen this morning, with c/o severe left sided groin/back pain and nausea. States his urine continues to be red. Bilateral leg swelling continues. Denies any current chest pain. C/o mild shortness of breath, but is not currently using NC. Pt also c/o severe right foot pain since yesterday. Denies trauma or injury. Objective - Vital Signs/Intake and Output Vital Signs (last 24 hours): Temp Pulse Resp BP Pulse Ox 98.8 F 79 20 138/66 94 L 02/25/17 04:53 02/25/17 04:53 02/25/17 04:53 02/25/17 04:53 02/25/17 04:53 Intake and Output: 02/25/17 02/25/17 06:59 18:59 Intake Total 240 Output Total 400 Balance -160 - Medications Medications: Current Medications Acetaminophen (Tylenol 325mg Tab) 650 mg PO Q6 PRN PRN Reason: Pain, Mild (1-3) Last Admin: 02/25/17 01:56 Dose: 650 mg Amlodipine Besylate (Norvasc) 10 mg PO DAILY [facility] Citalopram Hydrobromide (Celexa) 20 mg PO DAILY [facility] Clonidine HCl (Catapres) 0.3 mg PO TID [facility] Furosemide (Lasix) 40 mg IV BID [facility] Last Admin: 02/25/17 00:31 Dose: 40 mg Hydralazine HCl (Apresoline) 20 mg PO Q8 [facility] Last Admin: 02/25/17 00:35 Dose: 20 mg Isoniazid (Niazid) 300 mg PO DAILY [facility] Labetalol HCl (Trandate) 200 mg PO BID [facility] Metoclopramide HCl (Reglan) 10 mg IVP Q6 PRN PRN Reason: Nausea/Vomiting Prednisone (Prednisone Tab) 20 mg PO DAILY [facility] Pyridoxine HCl (Vitamin B6) 100 mg PO DAILY [facility] - Labs Labs: 02/25/17 05:53 02/25/17 05:53 PT 17.8 SECONDS (9.6-11.2) H 02/25/17 05:53 INR 1.71 (0.92-1.08) H 02/25/17 05:53 APTT 39.3 SECONDS (23.3-32.5) H 02/25/17 05:53 - Constitutional Appears: Non-toxic, No Acute Distress - Head Exam Head Exam: NORMAL INSPECTION - Eye Exam Eye Exam: EOMI, Normal appearance, PERRL - ENT Exam ENT Exam: Mucous Membranes Moist - Neck Exam Neck Exam: Full ROM - Respiratory Exam Respiratory Exam: Rales (crackles at b/l bases, L>R), NORMAL BREATHING PATTERN. absent: Rhonchi, Wheezes, Respiratory Distress - Cardiovascular Exam Cardiovascular Exam: REGULAR RHYTHM, RRR. absent: Irregular Rhythm - GI/Abdominal Exam GI & Abdominal Exam: Soft, Tenderness (left flank fullness/tenderness to palpation with some guarding), Normal Bowel Sounds. absent: Distended - Back Exam Back Exam: CVA tenderness (L) - Neurological Exam Neurological Exam: Alert, Awake, Oriented x3 Assessment and Plan - Assessment and Plan (Free Text) Assessment: 67 yo homeless M w PMHx of ANCA Vasculitis, DVT of RUE, CKD, HTN, etoh abuse, COPD, and CHF is admitted for CHF exacerbation and gross hematuria. 1. Acute exacerbation of Systolic CHF, fluid overload -pBNP: 4290 -Lasix 40mg PO BID -added on Metolazone 5mg PO every other day for better diuresis -consider increasing hydralazine dose -Daily Weights -I/O's 2. Hematuria -likely 2/2 nephrolithasis -hold coumadin for now; no anticoagulation meds at all for now -CT abd/pelv without contrast done - shows 3mm nonobstructing stone in lower pole of left kidney with no hydronephrosis -monitor H/H -Flomax daily; no IVF because of CHF/fluid overload -strain urine -if persists, consider other causes; consider urology referral -abdominal US ordered to r/o hemoperitoneum, as pt was on anticoagulation recently 3. RUE DVT -INR 1.7 -held Warfarin 5mg PO QD d/t hematuria -consider Hem/Onc Consult 4. HTN -Hydralazine 25mg PO Q8H -Clonidine 0.3mg PO TID -Labetolol 200mg PO BID -Norvasc discontinued, as this may further lead to LE swelling 5. CKD Stage 4, ANCA Vasculitis -BUN/Cr worse today than admission, with Cr 3.2 -Nephro consult appreciated -f/u myloperoxidase Ab and proteinase-3 Ab 6. Chronic Anemia -s/p 3 units PRBCs during prior admission -H/H dropped 1 point over 1 day -possibly 2/2 hematuria vs other pathology -f/u fecal occult blood -monitor 7. Depression -Celexa 20mg PO Daily 8. Latent TB -Isoniazid 300mg PO Daily -Pyridoxine 100mg PO Daily 9. DVT Prophylaxis -SCDs for now
[2017-02-25] MEDS ORDERED: Oxycodone/Acetaminophen 5/325 mg Tab PO STA (08:17)
[2017-02-25] MEDS: Pyridoxine 100 mg Tab PO SCH (09:12)
[2017-02-25] MEDS ORDERED: Oxycodone/Acetaminophen 5/325 mg Tab PO PRN (11:25)
--- NOTE | 2017-02-25 11:41 | CT ---
PROCEDURE: CT Abdomen and Pelvis without intravenous contrast HISTORY: hematuria, CKD, LLQ pain COMPARISON: None. TECHNIQUE: Helical CT scan of the abdomen and pelvis was performed without administration of intravenous contrast. Oral contrast was not administered. Coronal and sagittal reformatted images were obtained. [employer]. Radiation dose: Total exam DLP = 901.92 mGy-cm. This CT exam was performed using one or more of the following dose reduction techniques: Automated exposure control, adjustment of the mA and/or kV according to patient size, and/or use of iterative reconstruction technique. FINDINGS: LOWER THORAX: There is a small right pleural effusion. There is a live moderate left pleural effusion with compressive atelectasis in the left lower lobe. LIVER: The liver is normal in size. There is no intrahepatic biliary ductal dilatation. GALLBLADDER AND BILE DUCTS: There are probable small gallstones. PANCREAS: The pancreas is normal in size without calcifications or ductal dilatation. SPLEEN: The spleen is normal in size. ADRENALS: Both adrenal glands are normal in size without discrete nodule. KIDNEYS AND URETERS: Both kidneys are normal in size. There is no hydronephrosis. There is a 3 mm nonobstructing stone in the left lower pole. VASCULATURE: There are early atherosclerotic aortoiliac. No aortic aneurysm. BOWEL: Calcifications the small bowel loops are normal in caliber. There is mild colonic diverticulosis without CT evidence for acute diverticulitis. No bowel dilatation or obstruction. APPENDIX: Normal appendix. PERITONEUM: No free fluid. No free air. LYMPH NODES: Unremarkable. No enlarged lymph nodes. BLADDER: Grossly normal in appearance. REPRODUCTIVE: There is mild enlargement of the prostate gland with central coarse calcifications. BONES: No acute fracture. There is mild multilevel degenerative disc disease. OTHER FINDINGS: There is diffuse anasarca. IMPRESSION: 1. 3 mm nonobstructing stone in the lower pole of the left kidney. No hydronephrosis. 2. Mild colonic diverticulosis without CT evidence for acute diverticulitis. 3. Small right and moderate left pleural effusions and diffuse anasarca.
--- NOTE | 2017-02-25 11:41 | CP.PCM.CON ---
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 Review of Systems - Constitutional Constitutional: As Per HPI Past Patient History - Infectious Disease Hx of Infectious Diseases: None - Past Medical History & Family History Past Medical History?: Yes - Past Social History Alcohol: Social Drugs: Denies - CARDIAC Hx Congestive Heart Failure: Yes Hx Hypertension: Yes - PULMONARY Hx Chronic Obstructive Pulmonary Disease (COPD): Yes Hx Pneumonia: Yes - NEUROLOGICAL Hx Seizures: Yes - HEENT Hx HEENT Problems: No - RENAL Hx Chronic Kidney Disease: Yes - ENDOCRINE/METABOLIC Hx Endocrine Disorders: No - HEMATOLOGICAL/ONCOLOGICAL Hx Anemia: Yes Hx Human Immunodeficiency Virus (HIV): No - INTEGUMENTARY Hx Dermatological Problems: No - MUSCULOSKELETAL/RHEUMATOLOGICAL Hx Arthritis: Yes - GASTROINTESTINAL Hx Hemorrhoids: Yes - GENITOURINARY/GYNECOLOGICAL Hx Genitourinary Disorders: No - PSYCHIATRIC Hx Anxiety: Yes Hx Depression: Yes - SURGICAL HISTORY Hx Coronary Stent: No - ANESTHESIA Hx Anesthesia: Yes Hx Anesthesia Reactions: No Meds Allergies/Adverse Reactions: Allergies Allergy/AdvReac Type Severity Reaction Status Date / Time sulfamethoxazole Allergy RASH Verified 02/24/17 15:59 [From ] trimethoprim [From ] Allergy RASH Verified 02/24/17 15:59 - Medications Medications: Current Medications Acetaminophen (Tylenol 325mg Tab) 650 mg PO Q6 PRN PRN Reason: Pain, Mild (1-3) Last Admin: 02/25/17 01:56 Dose: 650 mg Amlodipine Besylate (Norvasc) 10 mg PO DAILY [facility] Last Admin: 02/25/17 09:12 Dose: 10 mg Citalopram Hydrobromide (Celexa) 20 mg PO DAILY [facility] Last Admin: 02/25/17 09:13 Dose: 20 mg Clonidine HCl (Catapres) 0.3 mg PO TID [facility] Last Admin: 02/25/17 09:11 Dose: 0.3 mg Furosemide (Lasix) 40 mg IV BID [facility] Last Admin: 02/25/17 09:14 Dose: 40 mg Hydralazine HCl (Apresoline) 20 mg PO Q8 [facility] Last Admin: 02/25/17 09:12 Dose: 20 mg Isoniazid (Niazid) 300 mg PO DAILY [facility] Last Admin: 02/25/17 09:12 Dose: 300 mg Labetalol HCl (Trandate) 200 mg PO BID [facility] Last Admin: 02/25/17 09:13 Dose: 200 mg Morphine Sulfate (Morphine) 2 mg IVP Q4 PRN PRN Reason: Pain, severe (8-10) Ondansetron HCl (Zofran Inj) 4 mg IVP Q4 PRN PRN Reason: Nausea/Vomiting Oxycodone/Acetaminophen (Percocet 5/325 Mg Tab) 2 tab PO Q4 PRN PRN Reason: Pain, moderate (4-7) Stop: 02/28/17 11:26 Prednisone (Prednisone Tab) 20 mg PO DAILY [facility] Last Admin: 02/25/17 09:12 Dose: 20 mg Pyridoxine HCl (Vitamin B6) 100 mg PO DAILY [facility] Last Admin: 02/25/17 09:12 Dose: 100 mg Physical Exam - Constitutional Appears: Chronically Ill - Head Exam Head Exam: ATRAUMATIC, NORMOCEPHALIC - Eye Exam Additional comments: No icterus. Conjunctiva pale - ENT Exam ENT Exam: Mucous Membranes Moist - Neck Exam Additional comments: JVD + @ 40 degrees - Respiratory Exam Additional comments: B/L crackles - Cardiovascular Exam Cardiovascular Exam: REGULAR RHYTHM - GI/Abdominal Exam Additional comments: Fullness & tenderness with guarding over Lt lower abdomen /flank - Rectal Exam Rectal Exam: Deferred - Extremities Exam Additional comments: Massive edema of both LEs upto thighs Results - Vital Signs Recent Vital Signs: Last Vital Signs Temp 99.4 F 02/25/17 07:57 Pulse 84 02/25/17 09:13 Resp 18 02/25/17 07:57 BP 153/75 H 02/25/17 09:14 Pulse Ox 95 02/25/17 07:57 - Labs Result Diagrams: 02/25/17 05:53 02/25/17 05:53 Labs: Laboratory Results - last 24 hr 02/25/17 05:53 WBC 6.6 RBC 2.98 L Hgb 9.3 L Hct 27.4 L MCV 91.9 MCH 31.1 H MCHC 33.8 RDW 16.0 H Plt Count 140 PT 17.8 H INR 1.71 H APTT 39.3 H Sodium 139 Potassium 4.9 Chloride 106 Carbon Dioxide 21 L Anion Gap 17 BUN 101 H* Creatinine 3.2 H Est GFR ( Amer) 24 Est GFR (Non-Af Amer) 20 Random Glucose 85 Calcium 7.7 L Total Bilirubin 0.4 AST 28 ALT 27 Alkaline Phosphatase 52 Total Protein 5.1 L Albumin 2.5 L Globulin 2.7 Albumin/Globulin Ratio 0.9 L Assessment & Plan - Assessment and Plan (Free Text) Assessment: 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 Suggest to add Metolazone Control of CHF will improve renal perfusion & function Discontinue Norvasc which may be contributing to pedal edema. Hydralazine dose can be increased. Will repeat proteinase 3 & myeloperoxidase Abs
--- NOTE | 2017-02-25 11:51 | RAD ---
PROCEDURE: Right Foot Radiographs. HISTORY: pain, tenderness to midfoot COMPARISON: 12/17/2016 FINDINGS: BONES: There is no acute fracture or bone destruction. Bone alignment and mineralization are normal. JOINTS: There is mild degenerative osteoarthrosis in the 1st MTP joint. There is a small plantar calcaneal spur. SOFT TISSUES: There is moderate dorsal soft tissue swelling. OTHER FINDINGS: None. IMPRESSION: No acute fracture or dislocation. Moderate dorsal soft tissue swelling.
[2017-02-26 07:28] LABS: CALCIUM 7.7 mg/dL (8.4-10.2); PARTIAL THROMBOPLASTIN TIME 39.8 SECONDS (23.3-32.5); POTASSIUM 4.7 MMOL/L (3.6-5.0)
[2017-02-26 07:35] LABS: BASO % 0.3 % (0.0-2.0); EOS # 0.1 K/uL (0.0-0.7); EOS % 1.7 % (0.0-4.0); HEMATOCRIT 25.3 % (35.0-51.0); LYMPH # 0.9 K/uL (1.0-4.3); MEAN CELL VOLUME 91.2 fl (80.0-94.0); MEAN CORPUSCULAR HEMOGLOBIN 31.1 pg (27.0-31.0); MEAN CORPUSCULAR HGB CONC 34.1 g/dL (33.0-37.0); MEAN PLATELET VOLUME 7.9 fl (7.2-11.7); MONO # 0.3 K/uL (0.0-0.8); MONO % 5.4 % (0.0-10.0); NEUT # 3.7 K/uL (1.8-7.0); NEUT % 74.6 % (50.0-75.0); RED CELL DISTRIBUTION WIDTH 15.5 % (11.5-14.5)
[2017-02-26] MEDS: Pyridoxine 100 mg Tab PO SCH (08:45)
--- NOTE | 2017-02-26 09:24 | CP.PCM.PN ---
Subjective - Date & Time of Evaluation Date of Evaluation: 02/26/17 Time of Evaluation: 09:18 - Subjective Subjective: pt seen and examined at bedside. No acute events overnight. Lying in bed comfortably, NAD. Reports mild improvement in flank pain. States hematuria has improved as well, yesterday urine was bright red "koolaid" colored but today it is more brownish but w/o dysuria, pyuria, increased freq. Unsure if he has passed a stone yet. Denies having an appetite or thirst and has not been taking much PO. Foot pain from yesterday improved and no longer symptomatic. No new medical complaints. Denies fever/chills, headaches, changes in vision, CP/SOB/ palpitations, V/D/C, urinary symptoms, numbness/tingling. Objective - Vital Signs/Intake and Output Vital Signs (last 24 hours): Temp Pulse Resp BP Pulse Ox 98.2 F 112 H 18 145/81 94 L 02/26/17 08:06 02/26/17 08:45 02/26/17 08:06 02/26/17 08:45 02/26/17 08:06 - Medications Medications: Current Medications Acetaminophen (Tylenol 325mg Tab) 650 mg PO Q6 PRN PRN Reason: Pain, Mild (1-3) Last Admin: 02/25/17 01:56 Dose: 650 mg Citalopram Hydrobromide (Celexa) 20 mg PO DAILY [facility] Last Admin: 02/26/17 08:45 Dose: 20 mg Clonidine HCl (Catapres) 0.3 mg PO TID [facility] Last Admin: 02/26/17 08:45 Dose: 0.3 mg Furosemide (Lasix) 40 mg IV BID [facility] Last Admin: 02/25/17 18:35 Dose: 40 mg Hydralazine HCl (Apresoline) 20 mg PO Q8 [facility] Last Admin: 02/26/17 08:42 Dose: 20 mg Isoniazid (Niazid) 300 mg PO DAILY [facility] Last Admin: 02/26/17 08:46 Dose: 300 mg Labetalol HCl (Trandate) 200 mg PO BID [facility] Last Admin: 02/26/17 08:45 Dose: 200 mg Metolazone (Zaroxolyn) 5 mg PO QOTHERDAY [facility] Morphine Sulfate (Morphine) 2 mg IVP Q4 PRN PRN Reason: Pain, severe (8-10) Ondansetron HCl (Zofran Inj) 4 mg IVP Q4 PRN PRN Reason: Nausea/Vomiting Last Admin: 02/25/17 18:33 Dose: 4 mg Oxycodone/Acetaminophen (Percocet 5/325 Mg Tab) 2 tab PO Q4 PRN PRN Reason: Pain, moderate (4-7) Stop: 02/28/17 11:26 Prednisone (Prednisone Tab) 20 mg PO DAILY [facility] Last Admin: 02/26/17 08:45 Dose: 20 mg Pyridoxine HCl (Vitamin B6) 100 mg PO DAILY [facility] Last Admin: 02/26/17 08:45 Dose: 100 mg Tamsulosin HCl (Flomax) 0.4 mg PO DAILY [facility] Last Admin: 02/26/17 08:47 Dose: 0.4 mg - Labs Labs: 02/26/17 05:05 02/26/17 05:05 PT 16.0 SECONDS (9.6-11.2) H 02/26/17 05:05 INR 1.54 (0.92-1.08) H 02/26/17 05:05 APTT 39.8 SECONDS (23.3-32.5) H 02/26/17 05:05 - Constitutional Appears: Non-toxic, No Acute Distress - Eye Exam Eye Exam: EOMI Pupil Exam: PERRL - ENT Exam ENT Exam: Mucous Membranes Moist - Respiratory Exam Respiratory Exam: Rales, NORMAL BREATHING PATTERN. absent: Rhonchi, Wheezes, Respiratory Distress Additional comments: bibasilar rales - Cardiovascular Exam Cardiovascular Exam: REGULAR RHYTHM, RRR, +S1, +S2, Murmur. absent: Tachycardia , JVD, Rubs - GI/Abdominal Exam GI & Abdominal Exam: Firm (LUQ/LLQ), Tenderness (LLQ), Normal Bowel Sounds. absent: Guarding, Rigid, Organomegaly, Rebound - Extremities Exam Extremities Exam: Full ROM, Pedal Edema (2+ bilaterally, Neg Amanda's, no erythema). absent: Calf Tenderness - Back Exam Back Exam: NORMAL INSPECTION. absent: CVA tenderness (L), CVA tenderness (R) - Neurological Exam Neurological Exam: Alert, Awake, CN II-XII Intact, Oriented x3 - Psychiatric Exam Psychiatric exam: Normal Affect, Normal Mood - Skin Skin Exam: Dry, Intact, Normal Color, Warm Assessment and Plan - Assessment and Plan (Free Text) Assessment: 67 yo homeless M w PMHx of ANCA Vasculitis, DVT of RUE, CKD, HTN, etoh abuse, COPD, and CHF is admitted for CHF exacerbation and gross hematuria. 1. Acute exacerbation of Systolic CHF, fluid overload -pBNP: 4290 -Lasix 40mg PO BID -Metolazone 5mg PO every other day -consider increasing hydralazine dose -Daily Weights -I/O's 2. Hematuria -likely 2/2 nephrolithasis -hold coumadin for now; no anticoagulation meds at all for now -CT abd/pelv without contrast done - shows 3mm nonobstructing stone in lower pole of left kidney with no hydronephrosis -monitor H/H -Flomax daily; no IVF because of CHF/fluid overload -strain urine -if persists, consider other causes; consider urology referral -abdominal US ordered to r/o hemoperitoneum, as pt was on anticoagulation recently -1st Urine Cx: VRE -ID Consult appreciated -F/u Urine Cx: pending 3. RUE DVT -INR 1.54 -held Warfarin 5mg PO QD d/t hematuria -consider Hem/Onc Consult 4. HTN -Hydralazine 25mg PO Q8H -Clonidine 0.3mg PO BID -Labetolol 200mg PO BID -Norvasc discontinued, as this may further lead to LE swelling 5. CKD Stage 4, ANCA Vasculitis -BUN/Cr worse today than admission, with Cr 3.7 -Nephro consult appreciated -f/u myloperoxidase Ab and proteinase-3 Ab 6. Chronic Anemia -s/p 3 units PRBCs during prior admission -H/H dropped 1 point over 1 day -possibly 2/2 hematuria vs other pathology -f/u fecal occult blood -monitor 7. Depression -Celexa 20mg PO Daily 8. Latent TB -Isoniazid 300mg PO Daily -Pyridoxine 100mg PO Daily 9. DVT Prophylaxis -SCDs/ambulation for now
[2017-02-26] MEDS ORDERED: Sodium Chloride 0.9% 500 ML IV ONE (10:45)
[2017-02-26] MEDS: metOLazone 5 MG TAB PO SCH (12:29)
--- NOTE | 2017-02-26 13:49 | CP.PCM.PN ---
Subjective - Date & Time of Evaluation Date of Evaluation: 02/26/17 Time of Evaluation: 01:50 - Subjective Subjective: Less SOB today Objective - Vital Signs/Intake and Output Vital Signs (last 24 hours): Temp Pulse Resp BP Pulse Ox 97.8 F 77 18 130/68 95 02/26/17 12:38 02/26/17 12:38 02/26/17 12:38 02/26/17 12:38 02/26/17 12:38 - Medications Medications: Current Medications Acetaminophen (Tylenol 325mg Tab) 650 mg PO Q6 PRN PRN Reason: Pain, Mild (1-3) Last Admin: 02/25/17 01:56 Dose: 650 mg Citalopram Hydrobromide (Celexa) 20 mg PO DAILY [facility] Last Admin: 02/26/17 08:45 Dose: 20 mg Clonidine HCl (Catapres) 0.3 mg PO BID [facility] Furosemide (Lasix) 40 mg PO BID [facility] Hydralazine HCl (Apresoline) 20 mg PO Q8 [facility] Last Admin: 02/26/17 08:42 Dose: 20 mg Isoniazid (Niazid) 300 mg PO DAILY [facility] Last Admin: 02/26/17 08:46 Dose: 300 mg Labetalol HCl (Trandate) 200 mg PO BID [facility] Last Admin: 02/26/17 08:45 Dose: 200 mg Metolazone (Zaroxolyn) 5 mg PO QOTHERDAY [facility] Last Admin: 02/26/17 12:29 Dose: 5 mg Morphine Sulfate (Morphine) 2 mg IVP Q4 PRN PRN Reason: Pain, severe (8-10) Ondansetron HCl (Zofran Inj) 4 mg IVP Q4 PRN PRN Reason: Nausea/Vomiting Last Admin: 02/25/17 18:33 Dose: 4 mg Oxycodone/Acetaminophen (Percocet 5/325 Mg Tab) 2 tab PO Q4 PRN PRN Reason: Pain, moderate (4-7) Stop: 02/28/17 11:26 Prednisone (Prednisone Tab) 20 mg PO DAILY [facility] Last Admin: 02/26/17 08:45 Dose: 20 mg Pyridoxine HCl (Vitamin B6) 100 mg PO DAILY [facility] Last Admin: 02/26/17 08:45 Dose: 100 mg Tamsulosin HCl (Flomax) 0.4 mg PO DAILY [facility] Last Admin: 02/26/17 08:47 Dose: 0.4 mg - Labs Labs: 02/26/17 05:05 02/26/17 05:05 PT 16.0 SECONDS (9.6-11.2) H 02/26/17 05:05 INR 1.54 (0.92-1.08) H 02/26/17 05:05 APTT 39.8 SECONDS (23.3-32.5) H 02/26/17 05:05 - Respiratory Exam Additional comments: B/L rhonchi - Cardiovascular Exam Cardiovascular Exam: REGULAR RHYTHM - GI/Abdominal Exam GI & Abdominal Exam: Soft Additional comments: Lt flank tenderness - Extremities Exam Additional comments: Significant decrease in pedal edema Assessment and Plan - Assessment and Plan (Free Text) Assessment: Pauci immune crescentic GN Acute on chronic renal failure. Decompensated CHF sec to missed meds Lt renal calculus Plan: Continue current meds & monitor renal function BUN has been high since last adm, ? sec to steroids.Chect FOB to r/o blood in GI tract Suggest Urology evaluation
--- NOTE | 2017-02-26 14:38 | US ---
HISTORY: left flank fullness; r/o hemoperitoneum COMPARISON: None. TECHNIQUE: Grayscale imaging was performed. FINDINGS: LIVER: Measures 18.6 cm. Normal echogenicity of the liver parenchyma. No mass. No intrahepatic bile duct dilatation. GALLBLADDER: Contracted. COMMON BILE DUCT: Measures 5 mm. No stones. No dilatation. PANCREAS: Unremarkable as visualized. No mass. No ductal dilatation. RIGHT KIDNEY: Measures 10.7cm. Normal echogenicity. No calculus, mass, or hydronephrosis. LEFT KIDNEY: Measures 7.9cm. Normal echogenicity. No calculus, mass, or hydronephrosis. SPLEEN: Normal in size and contour. No mass. AORTA: No aneurysmal dilatation. IVC: Unremarkable. OTHER FINDINGS: There are bilateral pleural effusions, left larger than right. No ascites. IMPRESSION: Bilateral pleural effusions, left larger than right. No ascites.
[2017-02-26 17:24] LABS: PROTEINASE-3 <1.0 AI (<1.0)
[2017-02-27 07:41] LABS: BASO % 0.5 % (0.0-2.0); EOS # 0.2 K/uL (0.0-0.7); EOS % 2.4 % (0.0-4.0); HEMATOCRIT 27.2 % (35.0-51.0); LYMPH # 0.9 K/uL (1.0-4.3); LYMPH % 14.6 % (20.0-40.0); MEAN CELL VOLUME 91.4 fl (80.0-94.0); MEAN CORPUSCULAR HEMOGLOBIN 30.7 pg (27.0-31.0); MEAN CORPUSCULAR HGB CONC 33.6 g/dL (33.0-37.0); MEAN PLATELET VOLUME 7.5 fl (7.2-11.7); MONO # 0.3 K/uL (0.0-0.8); MONO % 5.1 % (0.0-10.0); NEUT # 4.9 K/uL (1.8-7.0); NEUT % 77.4 % (50.0-75.0); RED CELL DISTRIBUTION WIDTH 15.7 % (11.5-14.5); WHITE BLOOD COUNT 6.4 K/uL (4.8-10.8)
[2017-02-27 07:59] LABS: ALB/GLOB RATIO 0.9 (1.0-2.1); BILIRUBIN,TOTAL 0.3 mg/dl (0.2-1.3); CALCIUM 7.5 mg/dL (8.4-10.2); POTASSIUM 4.5 MMOL/L (3.6-5.0); TOTAL PROTEIN 5.5 G/DL (6.3-8.2)
[2017-02-27] MEDS: Pyridoxine 100 mg Tab PO SCH (09:31)
--- NOTE | 2017-02-27 09:46 | CP.PCM.PN ---
Subjective - Date & Time of Evaluation Date of Evaluation: 02/27/17 Time of Evaluation: 07:10 - Subjective Subjective: pt seen and examined at bedside this morning. No acute events overnight. Sitting upright in bed, comfortably, NAD. Reports minor right sided chest congestion that bothered him for 20ish minutes and resolved. OOB/ambulating without difficulty but reports prolonged ambulation or standing makes his right foot hurt. Improved enuresis without visible hematuria. Urine is yellow today. Unsure if he passed stone but still reports minor 3/10 left flank pain. No new medical complaints. Denies fever/chills, headaches, visual disturbances, CP/SOB/ Palpitations, N/V/D/C, urinary symptoms, numbness/tingling. Objective - Vital Signs/Intake and Output Vital Signs (last 24 hours): Temp Pulse Resp BP Pulse Ox 97.8 F 72 18 156/78 H 94 L 02/27/17 08:00 02/27/17 08:00 02/27/17 08:00 02/27/17 09:30 02/27/17 08:00 Intake and Output: 02/27/17 02/27/17 06:59 18:59 Intake Total 250 Balance 250 - Medications Medications: Current Medications Acetaminophen (Tylenol 325mg Tab) 650 mg PO Q6 PRN PRN Reason: Pain, Mild (1-3) Last Admin: 02/25/17 01:56 Dose: 650 mg Citalopram Hydrobromide (Celexa) 20 mg PO DAILY [facility] Last Admin: 02/27/17 09:30 Dose: 20 mg Clonidine HCl (Catapres) 0.3 mg PO BID [facility] Last Admin: 02/27/17 09:29 Dose: 0.3 mg Furosemide (Lasix) 40 mg PO BID [facility] Last Admin: 02/27/17 09:30 Dose: 40 mg Hydralazine HCl (Apresoline) 20 mg PO Q8 [facility] Last Admin: 02/27/17 09:28 Dose: 20 mg Isoniazid (Niazid) 300 mg PO DAILY [facility] Last Admin: 02/27/17 09:31 Dose: 300 mg Labetalol HCl (Trandate) 200 mg PO BID [facility] Last Admin: 02/27/17 09:31 Dose: 200 mg Metolazone (Zaroxolyn) 5 mg PO QOTHERDAY [facility] Last Admin: 02/26/17 12:29 Dose: 5 mg Morphine Sulfate (Morphine) 2 mg IVP Q4 PRN PRN Reason: Pain, severe (8-10) Ondansetron HCl (Zofran Inj) 4 mg IVP Q4 PRN PRN Reason: Nausea/Vomiting Last Admin: 02/25/17 18:33 Dose: 4 mg Oxycodone/Acetaminophen (Percocet 5/325 Mg Tab) 2 tab PO Q4 PRN PRN Reason: Pain, moderate (4-7) Stop: 02/28/17 11:26 Prednisone (Prednisone Tab) 20 mg PO DAILY [facility] Last Admin: 02/27/17 09:31 Dose: 20 mg Pyridoxine HCl (Vitamin B6) 100 mg PO DAILY [facility] Last Admin: 02/27/17 09:31 Dose: 100 mg Tamsulosin HCl (Flomax) 0.4 mg PO DAILY [facility] Last Admin: 02/27/17 09:30 Dose: 0.4 mg - Labs Labs: 02/27/17 06:25 02/27/17 06:25 PT 14.8 SECONDS (9.6-11.2) H 02/27/17 06:25 INR 1.42 (0.92-1.08) H 02/27/17 06:25 APTT 39.8 SECONDS (23.3-32.5) H 02/26/17 05:05 - Constitutional Appears: Non-toxic, No Acute Distress - Eye Exam Eye Exam: EOMI Pupil Exam: PERRL - ENT Exam ENT Exam: Mucous Membranes Moist - Respiratory Exam Respiratory Exam: Rales (bibasilar rales, unchanged from previous examination), NORMAL BREATHING PATTERN. absent: Accessory Muscle Use, Wheezes, Respiratory Distress - Cardiovascular Exam Cardiovascular Exam: REGULAR RHYTHM, RRR, +S1, +S2, Murmur. absent: Tachycardia , Gallop, JVD, Rubs - GI/Abdominal Exam GI & Abdominal Exam: Firm (left sided abdominal fullness), Soft, Tenderness ( LLQ tenderness to palpation), Normal Bowel Sounds. absent: Distended, Guarding , Rigid, Mass, Rebound - Extremities Exam Extremities Exam: Pedal Edema (bilateral 2+ pitting edema. No erythema, skin moist and intact. ), Tenderness (tenderness to palpation of dorsal aspect of left foot. No signs of trauma/injury/infection.). absent: Calf Tenderness, Joint Swelling - Back Exam Back Exam: NORMAL INSPECTION. absent: CVA tenderness (L), CVA tenderness (R) - Neurological Exam Neurological Exam: Alert, Awake, CN II-XII Intact, Oriented x3 - Psychiatric Exam Psychiatric exam: Normal Affect, Normal Mood - Skin Skin Exam: Dry, Intact, Normal Color, Warm Assessment and Plan - Assessment and Plan (Free Text) Assessment: 67 yo homeless M w PMHx of ANCA Vasculitis, DVT of RUE, CKD, HTN, etoh abuse, COPD, and CHF is admitted for CHF exacerbation and gross hematuria. Plan: 1. Acute exacerbation of Systolic CHF, fluid overload -pBNP: 4290 -Lasix 40mg PO BID -Metolazone 5mg PO every other day -consider increasing hydralazine dose -Daily Weights -I/O's 2. Hematuria -likely 2/2 nephrolithasis -CT abd/pelv without contrast done - shows 3mm nonobstructing stone in lower pole of left kidney with no hydronephrosis -monitor H/H -Flomax daily -strain urine -abdominal US: b/l pleural effusions, left greater than right. No ascites. -1st Urine Cx: VRE -ID Consult appreciated: recommends no ABx treatment as he is afebrile and asymptomatic -F/u Urine Cx: pending -F/u UA: negative for infection. +RBCs, less than on admission. 3. RUE DVT -INR 1.42 -restarted Warfarin 5mg PO QD 4. HTN -Hydralazine 25mg PO Q8H -Clonidine 0.3mg PO BID -Labetolol 200mg PO BID -Norvasc discontinued, as this may further lead to LE swelling 5. CKD Stage 4, ANCA Vasculitis -BUN/Cr: 98/3.7 (02/27) -Nephro consult appreciated -myeloperoxidase Ab: <1.0 -proteinase-3 Ab: <1.0 6. Chronic Anemia -s/p 3 units PRBCs during prior admission -H/H dropped 1 point over 1 day -possibly 2/2 hematuria vs other pathology -f/u fecal occult blood -monitor 7. Depression -Celexa 20mg PO Daily 8. Latent TB -Isoniazid 300mg PO Daily -Pyridoxine 100mg PO Daily 9. DVT Prophylaxis -Lovenox 30 SC QD -SCDs/ambulation for now
[2017-02-27 11:49] LABS: RBC URINE 252 /hpf (0-3); URINE BACTERIA RARE (<OCC); URINE BILIRUBIN NEGATIVE (NEGATIVE); URINE BLOOD LARGE (NEGATIVE); URINE COLOR YELLOW (YELLOW); URINE GLUCOSE (UA) NEG (Normal); URINE KETONE NEGATIVE (NEGATIVE); URINE LEUKOCYTE ESTERASE NEG Leu/uL (Negative); URINE PROTEIN >=500 mg/dL (NEGATIVE); URINE UROBILINOGEN 0.2-1.0 mg/dL (0.2-1.0); WBC URINE 8 /hpf (0-5)
--- NOTE | 2017-02-27 13:17 | CP.PCM.CON ---
History of Present Illness - History of Present Illness History of Present Illness: 67 yo homeless male with PMHx of ANCA Vasculitis, DVT of RUE, CKD, HTN, etoh abuse, COPD, and CHF is admitted for SOB likely due to CHF & CKD. During previous hospital stay, pt completed cytoxan and was transfused 3u pRBC, a/w vomiting. c/o hematuria, dysuria, left groin pain x3 days. On coumadin, duration for 3 months. Urine culture positive for VRE and ID consulted Past Patient History - Infectious Disease Hx of Infectious Diseases: None - Past Medical History & Family History Past Medical History?: Yes - Past Social History Alcohol: Social Drugs: Denies - CARDIAC Hx Congestive Heart Failure: Yes Hx Hypertension: Yes - PULMONARY Hx Chronic Obstructive Pulmonary Disease (COPD): Yes Hx Pneumonia: Yes - NEUROLOGICAL Hx Seizures: Yes - HEENT Hx HEENT Problems: No - RENAL Hx Chronic Kidney Disease: Yes - ENDOCRINE/METABOLIC Hx Endocrine Disorders: No - HEMATOLOGICAL/ONCOLOGICAL Hx Anemia: Yes Hx Human Immunodeficiency Virus (HIV): No - INTEGUMENTARY Hx Dermatological Problems: No - MUSCULOSKELETAL/RHEUMATOLOGICAL Hx Arthritis: Yes - GASTROINTESTINAL Hx Hemorrhoids: Yes - GENITOURINARY/GYNECOLOGICAL Hx Genitourinary Disorders: No - PSYCHIATRIC Hx Anxiety: Yes Hx Depression: Yes - SURGICAL HISTORY Hx Coronary Stent: No - ANESTHESIA Hx Anesthesia: Yes Hx Anesthesia Reactions: No Meds Allergies/Adverse Reactions: Allergies Allergy/AdvReac Type Severity Reaction Status Date / Time sulfamethoxazole Allergy RASH Verified 02/24/17 15:59 [From ] trimethoprim [From ] Allergy RASH Verified 02/24/17 15:59 - Medications Medications: Current Medications Acetaminophen (Tylenol 325mg Tab) 650 mg PO Q6 PRN PRN Reason: Pain, Mild (1-3) Last Admin: 02/25/17 01:56 Dose: 650 mg Citalopram Hydrobromide (Celexa) 20 mg PO DAILY [facility] Last Admin: 02/27/17 09:30 Dose: 20 mg Clonidine HCl (Catapres) 0.3 mg PO BID [facility] Last Admin: 02/27/17 09:29 Dose: 0.3 mg Enoxaparin Sodium (Lovenox) 30 mg SC DAILY [facility] PRN Reason: Protocol Furosemide (Lasix) 40 mg PO BID [facility] Last Admin: 02/27/17 09:30 Dose: 40 mg Hydralazine HCl (Apresoline) 20 mg PO Q8 [facility] Last Admin: 02/27/17 09:28 Dose: 20 mg Isoniazid (Niazid) 300 mg PO DAILY [facility] Last Admin: 02/27/17 09:31 Dose: 300 mg Labetalol HCl (Trandate) 200 mg PO BID [facility] Last Admin: 02/27/17 09:31 Dose: 200 mg Metolazone (Zaroxolyn) 5 mg PO QOTHERDAY [facility] Last Admin: 02/26/17 12:29 Dose: 5 mg Morphine Sulfate (Morphine) 2 mg IVP Q4 PRN PRN Reason: Pain, severe (8-10) Ondansetron HCl (Zofran Inj) 4 mg IVP Q4 PRN PRN Reason: Nausea/Vomiting Last Admin: 02/25/17 18:33 Dose: 4 mg Oxycodone/Acetaminophen (Percocet 5/325 Mg Tab) 2 tab PO Q4 PRN PRN Reason: Pain, moderate (4-7) Stop: 02/28/17 11:26 Last Admin: 02/27/17 12:28 Dose: 2 tab Prednisone (Prednisone Tab) 20 mg PO DAILY [facility] Last Admin: 02/27/17 09:31 Dose: 20 mg Pyridoxine HCl (Vitamin B6) 100 mg PO DAILY [facility] Last Admin: 02/27/17 09:31 Dose: 100 mg Tamsulosin HCl (Flomax) 0.4 mg PO DAILY [facility] Last Admin: 02/27/17 09:30 Dose: 0.4 mg Warfarin Sodium (Coumadin) 5 mg PO QD5 [facility] PRN Reason: Protocol Stop: 02/27/17 17:01 Results - Vital Signs Recent Vital Signs: Last Vital Signs Temp 97.8 F 02/27/17 08:00 Pulse 72 02/27/17 08:00 Resp 18 02/27/17 08:00 BP 156/78 H 02/27/17 09:30 Pulse Ox 94 L 02/27/17 08:00 - Labs Result Diagrams: 02/27/17 06:25 02/27/17 06:25 Labs: Laboratory Results - last 24 hr 02/25/17 02/27/17 02/27/17 13:19 06:25 11:27 WBC 6.4 RBC 2.97 L Hgb 9.1 L Hct 27.2 L MCV 91.4 MCH 30.7 MCHC 33.6 RDW 15.7 H Plt Count 148 MPV 7.5 Neut % (Auto) 77.4 H Lymph % (Auto) 14.6 L [place] % (Auto) 5.1 Eos % (Auto) 2.4 Baso % (Auto) 0.5 Neut # 4.9 Lymph # 0.9 L [place] # 0.3 Eos # 0.2 Baso # 0.0 PT 14.8 H INR 1.42 H Sodium 139 Potassium 4.5 Chloride 103 Carbon Dioxide 21 L Anion Gap 20 BUN 98 H Creatinine 3.7 H Est GFR ( Amer) 20 Est GFR (Non-Af Amer) 17 Random Glucose 102 Calcium 7.5 L Total Bilirubin 0.3 AST 25 ALT 25 Alkaline Phosphatase 53 Total Protein 5.5 L Albumin 2.6 L Globulin 2.9 Albumin/Globulin Ratio 0.9 L Urine Color Yellow Urine Clarity Clear Urine pH 6.0 Ur Specific [place] 1.012 Urine Protein >=500 Urine Glucose (UA) Neg Urine Ketones Negative Urine Blood Large Urine Nitrate Negative Urine Bilirubin Negative Urine Urobilinogen 0.2-1.0 Ur Leukocyte Esterase Neg Urine RBC (Auto) 252 H Urine Microscopic WBC 8 H Ur Squamous Epith Cells 1 Urine Bacteria Rare Hyaline Casts 0-2 Proteinase 3 (PR3) <1.0 Myeloperoxidase Ab <1.0 Assessment & Plan - Assessment and Plan (Free Text) Assessment: VRE fecium in urine culture in absence of any system signs of infection. Repeat UA negative for signs of infection. VRE most likely a colonizer. Monitor Pt at this time
--- NOTE | 2017-02-27 18:57 | CARD ---
APPROVED REPORT EKG Measurement Heart [id number] <Conclusion> Sinus tachycardia Otherwise normal ECG
[2017-02-28 06:56] LABS: CALCIUM 7.5 mg/dL (8.4-10.2); POTASSIUM 4.5 MMOL/L (3.6-5.0)
--- NOTE | 2017-02-28 08:08 | CP.PCM.PN ---
Subjective - Date & Time of Evaluation Date of Evaluation: 02/28/17 Time of Evaluation: 08:04 - Subjective Subjective: pt seen and examined at bedside. No acute events overnight. Pt became agitated and angry when breakfast was delivered late. Sitting up in bed comfortably, NAD. Reports worsening right ankle pain. Denies inciting event, just reports the it "pulsates and hurts" cant describe the pain further. It is 4/10, nonradiating, constant, and exacerbated with ambulation and weight bearing. Also reports an episode of dizziness that resolved with rest. Hmeaturia resolved. Lingering left flank pain controlled with medications. No other new medical complaints. Denies fever/chills, changes in vision, bleeding, CP/SOB/ Palpitations, N/V/D/C, urinary symptoms, numbness/tingling. Objective - Vital Signs/Intake and Output Vital Signs (last 24 hours): Temp Pulse Resp BP Pulse Ox 97.6 F 72 20 151/79 H 95 02/28/17 00:13 02/28/17 02:20 02/28/17 00:13 02/28/17 02:20 02/28/17 00:13 Intake and Output: 02/28/17 02/28/17 06:59 18:59 Intake Total 850 Balance 850 - Medications Medications: Current Medications Acetaminophen (Tylenol 325mg Tab) 650 mg PO Q6 PRN PRN Reason: Pain, Mild (1-3) Last Admin: 02/25/17 01:56 Dose: 650 mg Citalopram Hydrobromide (Celexa) 20 mg PO DAILY [facility] Last Admin: 02/27/17 09:30 Dose: 20 mg Clonidine HCl (Catapres) 0.3 mg PO BID [facility] Last Admin: 02/27/17 16:51 Dose: 0.3 mg Furosemide (Lasix) 40 mg PO BID [facility] Last Admin: 02/27/17 16:52 Dose: 40 mg Heparin Sodium (Porcine) (Heparin) 5,000 units SC Q12 [facility] PRN Reason: Protocol Last Admin: 02/27/17 21:28 Dose: 5,000 units Hydralazine HCl (Apresoline) 20 mg PO Q8 [facility] Last Admin: 02/28/17 02:20 Dose: 20 mg Isoniazid (Niazid) 300 mg PO DAILY [facility] Last Admin: 02/27/17 09:31 Dose: 300 mg Labetalol HCl (Trandate) 200 mg PO BID [facility] Last Admin: 02/27/17 16:53 Dose: 200 mg Metolazone (Zaroxolyn) 5 mg PO QOTHERDAY [facility] Last Admin: 02/26/17 12:29 Dose: 5 mg Morphine Sulfate (Morphine) 2 mg IVP Q4 PRN PRN Reason: Pain, severe (8-10) Ondansetron HCl (Zofran Inj) 4 mg IVP Q4 PRN PRN Reason: Nausea/Vomiting Last Admin: 02/25/17 18:33 Dose: 4 mg Oxycodone/Acetaminophen (Percocet 5/325 Mg Tab) 2 tab PO Q4 PRN PRN Reason: Pain, moderate (4-7) Stop: 02/28/17 11:26 Last Admin: 02/27/17 12:28 Dose: 2 tab Prednisone (Prednisone Tab) 20 mg PO DAILY [facility] Last Admin: 02/27/17 09:31 Dose: 20 mg Pyridoxine HCl (Vitamin B6) 100 mg PO DAILY [facility] Last Admin: 02/27/17 09:31 Dose: 100 mg Tamsulosin HCl (Flomax) 0.4 mg PO DAILY [facility] Last Admin: 02/27/17 09:30 Dose: 0.4 mg - Labs Labs: 02/27/17 06:25 02/28/17 05:40 PT 13.6 SECONDS (9.6-11.2) H 02/28/17 05:40 INR 1.31 (0.92-1.08) H 02/28/17 05:40 APTT 39.8 SECONDS (23.3-32.5) H 02/26/17 05:05 - Constitutional Appears: Non-toxic, No Acute Distress - Eye Exam Eye Exam: EOMI Pupil Exam: PERRL - ENT Exam ENT Exam: Mucous Membranes Moist - Respiratory Exam Respiratory Exam: Rales (bibasilar rales ), Wheezes (expiratory wheezes ant and posterior, diffusely throught all lung [place].), NORMAL BREATHING PATTERN. absent: Accessory Muscle Use, Clear to Ausculation Bilateral, Rhonchi, Respiratory Distress - Cardiovascular Exam Cardiovascular Exam: REGULAR RHYTHM, RRR, +S1, +S2, Murmur (systolic murmur). absent: Tachycardia, JVD, Rubs - GI/Abdominal Exam GI & Abdominal Exam: Soft, Tenderness (left flank tenderness to palpation, 3/10) , Normal Bowel Sounds. absent: Distended, Firm, Guarding, Rigid, Rebound - Extremities Exam Extremities Exam: Full ROM, Pedal Edema (2+ pitting edema bilaterally, slight improvement since yesterday), Tenderness (right ankle tenderness around lateral and medial malleloi, no erythema, bruising). absent: Calf Tenderness - Back Exam Back Exam: absent: CVA tenderness (L), CVA tenderness (R) - Neurological Exam Neurological Exam: Awake, CN II-XII Intact, Oriented x3 - Psychiatric Exam Psychiatric exam: Normal Affect, Normal Mood - Skin Skin Exam: Dry, Intact, Normal Color, Warm Assessment and Plan - Assessment and Plan (Free Text) Assessment: 67 yo homeless M w PMHx of ANCA Vasculitis, DVT of RUE, CKD, HTN, etoh abuse, COPD, and CHF is admitted for CHF exacerbation and gross hematuria. Plan: 1. Acute on Chronic Kidney Injury -CKD Stage 4, ANCA Vasculitis -BUN/Cr: 95/3.5 (02/28) -Nephro consult appreciated -myeloperoxidase Ab: <1.0 -proteinase-3 Ab: <1.0 2. Hematuria (resolved) -secondary to nephrolithasis -CT abd/pelv without contrast done - shows 3mm nonobstructing stone in lower pole of left kidney with no hydronephrosis -monitor H/H -Flomax daily -abdominal US: b/l pleural effusions, left greater than right. No ascites. -1st Urine Cx: VRE -ID Consult appreciated: recommends no ABx treatment as he is afebrile and asymptomatic -F/u UA: negative for infection. +RBCs, less than on admission. -F/u Urine Cx: negative for growth 3. Systolic CHF -pBNP: 4290 -Lasix 40mg PO BID -Metolazone 5mg PO every other day -consider increasing hydralazine dose -Daily Weights -I/O's 4. RUE DVT -INR 1.31 (subtherapeutic) -restarted Warfarin 5mg PO QD 5. HTN (uncontrolled) -Hydralazine 25mg PO Q8H -Clonidine 0.3mg PO BID -Labetolol 200mg PO BID 6. Chronic Anemia -s/p 3 units PRBCs during prior admission -H/H dropped 1 point over 1 day -possibly 2/2 hematuria vs other pathology -f/u fecal occult blood -monitor 7. Depression -Celexa 20mg PO Daily 8. Latent TB -Isoniazid 300mg PO Daily -Pyridoxine 100mg PO Daily 9. DVT Prophylaxis -Heparin 5000 units SC BID -ambulation encouraged
[2017-02-28] MEDS ORDERED: Enoxaparin 30 mg Syringe SC SCH (09:00)
[2017-02-28] MEDS: Pyridoxine 100 mg Tab PO SCH (09:19)
[2017-02-28] MEDS: metOLazone 5 MG TAB PO SCH (09:20)
--- NOTE | 2017-02-28 11:18 | CP.PCM.PN ---
Subjective - Date & Time of Evaluation Date of Evaluation: 02/28/17 Time of Evaluation: 11:15 - Subjective Subjective: Patient appeared to be comfortable in the bed No distress not whatsoever Eating well , sitting down Serum creatinine coming down slightly and improving so the B UN Hemoglobin noted to be stable Legs edema decreasing The impression and plan Patient with end can negative vasculitis who was given Cytoxan about 10 days ago or so that he required Cytoxan every 4 weeks for additional 4 doses. Hematuria appeared to be resolving whites the Coumadin dose Continue diuretics Lasix and Zaroxolyn From renal standpoint of view I we will follow-up him as needed. to be follow- up as outpatient. Objective - Vital Signs/Intake and Output Vital Signs (last 24 hours): Temp Pulse Resp BP Pulse Ox 97.7 F 117 H 18 146/90 96 02/28/17 08:04 02/28/17 09:00 02/28/17 08:04 02/28/17 08:04 02/28/17 08:04 Intake and Output: 02/28/17 02/28/17 06:59 18:59 Intake Total 850 Balance 850 - Medications Medications: Current Medications Acetaminophen (Tylenol 325mg Tab) 650 mg PO Q6 PRN PRN Reason: Pain, Mild (1-3) Last Admin: 02/25/17 01:56 Dose: 650 mg Citalopram Hydrobromide (Celexa) 20 mg PO DAILY [facility] Last Admin: 02/28/17 09:20 Dose: 20 mg Clonidine HCl (Catapres) 0.3 mg PO BID [facility] Last Admin: 02/28/17 09:18 Dose: 0.3 mg Furosemide (Lasix) 40 mg PO BID [facility] Last Admin: 02/28/17 09:19 Dose: 40 mg Heparin Sodium (Porcine) (Heparin) 5,000 units SC Q12 [facility] PRN Reason: Protocol Last Admin: 02/28/17 09:21 Dose: 5,000 units Hydralazine HCl (Apresoline) 20 mg PO Q8 [facility] Last Admin: 02/28/17 09:19 Dose: 20 mg Isoniazid (Niazid) 300 mg PO DAILY [facility] Last Admin: 02/28/17 09:19 Dose: 300 mg Labetalol HCl (Trandate) 200 mg PO BID [facility] Last Admin: 02/28/17 09:20 Dose: 200 mg Metolazone (Zaroxolyn) 5 mg PO QOTHERDAY [facility] Last Admin: 02/28/17 09:20 Dose: 5 mg Morphine Sulfate (Morphine) 2 mg IVP Q4 PRN PRN Reason: Pain, severe (8-10) Ondansetron HCl (Zofran Inj) 4 mg IVP Q4 PRN PRN Reason: Nausea/Vomiting Last Admin: 02/25/17 18:33 Dose: 4 mg Oxycodone/Acetaminophen (Percocet 5/325 Mg Tab) 2 tab PO Q4 PRN PRN Reason: Pain, moderate (4-7) Stop: 02/28/17 11:26 Last Admin: 02/27/17 12:28 Dose: 2 tab Prednisone (Prednisone Tab) 20 mg PO DAILY [facility] Last Admin: 02/28/17 09:20 Dose: 20 mg Pyridoxine HCl (Vitamin B6) 100 mg PO DAILY [facility] Last Admin: 02/28/17 09:19 Dose: 100 mg Tamsulosin HCl (Flomax) 0.4 mg PO DAILY [facility] Last Admin: 02/28/17 09:18 Dose: 0.4 mg Warfarin Sodium (Coumadin) 5 mg PO QD5 [facility] PRN Reason: Protocol Stop: 02/28/17 17:01 - Labs Labs: 02/27/17 06:25 02/28/17 05:40 PT 13.6 SECONDS (9.6-11.2) H 02/28/17 05:40 INR 1.31 (0.92-1.08) H 02/28/17 05:40 APTT 39.8 SECONDS (23.3-32.5) H 02/26/17 05:05
[2017-03-01 07:06] LABS: CALCIUM 7.5 mg/dL (8.4-10.2); POTASSIUM 4.6 MMOL/L (3.6-5.0)
[2017-03-01 08:18] VITALS: RESP 18
[2017-03-01] MEDS: Pyridoxine 100 mg Tab PO SCH (10:01)
[2017-03-01 12:06] VITALS: BP 145/85; PULSE 87; TEMP 98.3; O2SAT 95
--- NOTE | 2017-03-02 06:42 | CP.PCM.DIS ---
Provider - Provider Date of Admission: 02/24/17 18:24 Attending physician: Aaliyah Knott MD Time Spent in preparation of Discharge (in minutes): 35 Diagnosis - Discharge Diagnosis (1) SHERRY (acute kidney injury) Status: Acute Priority: Medium (2) Nephrolithiasis Status: Acute Hospital Course - Lab Results Lab Results: Micro Results 02/27/17 11:27 Urine,Clean Catch Urine Culture - Final No Growth (<1,000 CFU/ML) 02/26/17 13:00 Urine,Clean Catch Urine Culture - Final No Growth (<1,000 CFU/ML) Most Recent Lab Values WBC 6.4 K/uL (4.8-10.8) 02/27/17 06:25 RBC 2.97 Mil/uL (4.40-5.90) L 02/27/17 06:25 Hgb 9.1 g/dL (12.0-18.0) L 02/27/17 06:25 Hct 27.2 % (35.0-51.0) L 02/27/17 06:25 MCV 91.4 fl (80.0-94.0) 02/27/17 06:25 MCH 30.7 pg (27.0-31.0) 02/27/17 06:25 MCHC 33.6 g/dL (33.0-37.0) 02/27/17 06:25 RDW 15.7 % (11.5-14.5) H 02/27/17 06:25 Plt Count 148 K/uL (130-400) 02/27/17 06:25 MPV 7.5 fl (7.2-11.7) 02/27/17 06:25 Neut % (Auto) 77.4 % (50.0-75.0) H 02/27/17 06:25 Lymph % (Auto) 14.6 % (20.0-40.0) L 02/27/17 06:25 [place] % (Auto) 5.1 % (0.0-10.0) 02/27/17 06:25 Eos % (Auto) 2.4 % (0.0-4.0) 02/27/17 06:25 Baso % (Auto) 0.5 % (0.0-2.0) 02/27/17 06:25 Neut # 4.9 K/uL (1.8-7.0) 02/27/17 06:25 Lymph # 0.9 K/uL (1.0-4.3) L 02/27/17 06:25 [place] # 0.3 K/uL (0.0-0.8) 02/27/17 06:25 Eos # 0.2 K/uL (0.0-0.7) 02/27/17 06:25 Baso # 0.0 K/uL (0.0-0.2) 02/27/17 06:25 ESR 88 mm/hr (0-20) H 02/25/17 13:19 PT 18.8 SECONDS (9.6-11.2) H D 03/01/17 04:35 INR 1.81 (0.92-1.08) H D 03/01/17 04:35 APTT 39.8 SECONDS (23.3-32.5) H 02/26/17 05:05 pCO2 34 mm/Hg (35-45) L 02/24/17 16:30 pO2 85 mm/Hg (80-100) 02/24/17 16:30 HCO3 23.6 mmol/L (21-28) 02/24/17 16:30 ABG pH 7.42 (7.35-7.45) 02/24/17 16:30 ABG Total CO2 23.1 mmol/L (22-28) 02/24/17 16:30 ABG O2 Saturation 100.2 % (95-98) H 02/24/17 16:30 ABG Base Excess -1.7 mmol/L (-2.0-3.0) 02/24/17 16:30 [place] Test Yes 02/24/17 16:30 ABG Potassium 4.7 mmol/L (3.6-5.2) 02/24/17 16:30 A-a O2 Difference 101.0 mm/Hg 02/24/17 16:30 Sodium 135.0 mmol/L (132-148) 02/24/17 16:30 Chloride 109.0 mmol/L (98-107) H 02/24/17 16:30 Glucose 101 mg/dL (75-110) 02/24/17 16:30 Lactate 0.4 mmol/L (0.7-2.1) L 02/24/17 16:30 FiO2 32.0 % 02/24/17 16:30 Sodium 138 mmol/l (132-148) 03/01/17 04:35 Potassium 4.6 MMOL/L (3.6-5.0) 03/01/17 04:35 Chloride 105 mmol/L (98-107) 03/01/17 04:35 Carbon Dioxide 22 mmol/L (22-30) 03/01/17 04:35 Anion Gap 16 (10-20) 03/01/17 04:35 BUN 88 mg/dl (9-20) H 03/01/17 04:35 Creatinine 3.4 mg/dL (0.8-1.5) H 03/01/17 04:35 Est GFR ( Amer) 22 03/01/17 04:35 Est GFR (Non-Af Amer) 18 03/01/17 04:35 Random Glucose 90 mg/dL (75-110) 03/01/17 04:35 Calcium 7.5 mg/dL (8.4-10.2) L 03/01/17 04:35 Phosphorus 5.5 mg/dl (2.5-4.5) H 02/24/17 17:00 Magnesium 1.9 MG/DL (1.6-2.3) 02/24/17 17:00 Total Bilirubin 0.3 mg/dl (0.2-1.3) 02/27/17 06:25 AST 25 U/L (17-59) 02/27/17 06:25 ALT 25 U/L (21-72) 02/27/17 06:25 Alkaline Phosphatase 53 U/L (38-126) 02/27/17 06:25 Troponin I 0.0250 ng/mL (0.00-0.120) 02/24/17 17:00 NT-Pro-B Natriuret Pep 4290 pg/ml (0-900) H 02/24/17 17:00 Total Protein 5.5 G/DL (6.3-8.2) L 02/27/17 06:25 Albumin 2.6 g/dL (3.5-5.0) L 02/27/17 06:25 Globulin 2.9 gm/dL (2.2-3.9) 02/27/17 06:25 Albumin/Globulin Ratio 0.9 (1.0-2.1) L 02/27/17 06:25 Procalcitonin 1.26 NG/ML (0.19-0.49) H 02/26/17 13:30 Arterial Blood Potassium 4.7 mmol/L (3.6-5.2) 02/24/17 16:30 Urine Color Yellow (YELLOW) 02/27/17 11:27 Urine Clarity Clear (Clear) 02/27/17 11:27 Urine pH 6.0 (5.0-8.0) 02/27/17 11:27 Ur Specific [place] 1.012 (1.003-1.030) 02/27/17 11:27 Urine Protein >=500 mg/dL (NEGATIVE) 02/27/17 11:27 Urine Glucose (UA) Neg mg/dL (Normal) 02/27/17 11:27 Urine Ketones Negative mg/dL (NEGATIVE) 02/27/17 11:27 Urine Blood Large (NEGATIVE) 02/27/17 11:27 Urine Nitrate Negative (NEGATIVE) 02/27/17 11:27 Urine Bilirubin Negative (NEGATIVE) 02/27/17 11:27 Urine Urobilinogen 0.2-1.0 mg/dL (0.2-1.0) 02/27/17 11:27 Ur Leukocyte Esterase Neg [place]/uL (Negative) 02/27/17 11:27 Urine RBC (Auto) 252 /hpf (0-3) H 02/27/17 11:27 Urine Microscopic WBC 8 /hpf (0-5) H 02/27/17 11:27 Ur Squamous Epith Cells 1 /hpf (0-5) 02/27/17 11:27 Urine Bacteria Rare (<OCC) 02/27/17 11:27 Hyaline Casts 0-2 /hpf (0-2) 02/27/17 11:27 Alcohol, Quantitative < 10 mg/dl (0-10) 02/24/17 17:00 Proteinase 3 (PR3) <1.0 AI (<1.0) 02/25/17 13:19 Myeloperoxidase Ab <1.0 AI (<1.0) 02/25/17 13:19 Blood Type A POSITIVE 02/24/17 17:00 Antibody Screen Negative 02/24/17 17:00 BBK History Checked Patient has bt 02/24/17 17:00 - Hospital Course Hospital Course: 67 yo homeless M w PMHx of ANCA Vasculitis, DVT of RUE, CKD, HTN, etoh abuse, COPD, and CHF is admitted for CHF exacerbation and gross hematuria.During his stay, BUN was found to be 108 and Cr 3.7. On abdominal CT he was found to have a left kidney stone. During his stay he was treated with pain medications and cautious fluids. Over the course of several days, his hematuria resolved but no kidney stone was found. He was found to have SHERRY on top of chronic renal insuff that slowly improved during his stay. Nephro was consulted, Steroids were continued, as well as diuresis. BUN/Cr trended down to 95/3.4 respectively. After an uneventful hospital stay, the pt was discharged in stable condition with orders to follow up at the [facility] and with Cardiology on 03/07. Discharge Exam - Head Exam Head Exam: ATRAUMATIC, NORMOCEPHALIC - Eye Exam Eye Exam: EOMI Pupil Exam: PERRL - ENT Exam ENT Exam: Mucous Membranes Moist - Neck Exam Neck exam: Full Rom - Respiratory Exam Respiratory Exam: Rales (bibasilar rales, unchanged ), NORMAL BREATHING PATTERN. absent: Accessory Muscle Use, Wheezes, Respiratory Distress - Cardiovascular Exam Cardiovascular Exam: REGULAR RHYTHM, RRR, +S1, +S2, Systolic Murmur. absent: Tachycardia, JVD, Rubs - GI/Abdominal Exam GI & Abdominal Exam: Normal Bowel Sounds, Soft, Unremarkable. absent: Tenderness - Extremities Exam Extremities exam: pedal edema (2+ pitting edema bilaterally) - Back Exam Back exam: absent: CVA tenderness (L), CVA tenderness (R) - Neurological Exam Neurological exam: Alert, CN II-XII Intact, Oriented x3 Discharge Plan - Discharge Medications Prescriptions: Citalopram [celEXA] 20 mg PO DAILY #30 tab cloNIDine [Catapres] 0.3 mg PO BID #60 tab Furosemide [Lasix] 40 mg PO BID #60 tab hydrALAZINE [Apresoline] 20 mg PO Q8 #90 tab Isoniazid [Niazid] 300 mg PO DAILY #30 tab Labetalol [Trandate] 200 mg PO BID #60 tab predniSONE [predniSONE Tab] 10 mg PO DAILY #10 tab Pyridoxine [Vitamin B6] 100 mg PO DAILY #30 tab Warfarin [Coumadin] 5 mg PO 1800 #30 tab - Follow Up Plan Condition: GUARDED Disposition: HOME/ ROUTINE Instructions: Heart Failure (DC), Hypertension (DC) Additional Instructions: follow up with on 03/07/17
== END 2017-03-01 15:30 | disposition home or self-care (01) | DRG 544 ==
LOC: H.ER 15:51 → H.ERHOLD 18:24 → H.TEL 20:35
PROVIDERS: ADMIT Family Medicine Geriatric Medicine; ATTEND Family Medicine Geriatric Medicine
DX: I13.0 Hypertensive heart and chronic kidney disease with heart failure and stage 1 through stage 4 chronic kidney disease, or unspecified chronic kidney disease (principal); I50.23 Acute on chronic systolic (congestive) heart failure; N17.9 Acute kidney failure, unspecified; N04.7 Nephrotic syndrome with diffuse crescentic glomerulonephritis; Z79.01 Long term (current) use of anticoagulants; N18.4 Chronic kidney disease, stage 4 (severe); Z86.718 Personal history of other venous thrombosis and embolism; R31.0 Gross hematuria; N20.0 Calculus of kidney; R76.11 Nonspecific reaction to tuberculin skin test without active tuberculosis; D64.9 Anemia, unspecified; F32.9 Major depressive disorder, single episode, unspecified; F41.8 Other specified anxiety disorders; Z88.2 Allergy status to sulfonamides; I77.89 Other specified disorders of arteries and arterioles

== ENCOUNTER 2017-03-06 17:06 | Inpatient (IN) | payer SELFPAY ==
[2017-03-06] MEDS ORDERED: Iohexol 240 (50 ml) PO STA (18:22)
[2017-03-06] MEDS ORDERED: Sodium Chloride 0.9% 1,000 ML IV STA (18:22)
--- NOTE | 2017-03-06 18:45 | ED PDOC ---
HPI: Abdomen Time Seen by Provider: 03/06/17 17:59 Chief Complaint (Nursing): GI Problem Chief Complaint (Provider): GI Problem History Per: Patient History/Exam Limitations: language barrier Onset/Duration Of Symptoms: Days (x7) Current Symptoms Are (Timing): Still Present Associated Symptoms: Fever, Vomiting, Diarrhea Additional Complaint(s): 17:59 Иван Merritt is a 67 year old male with a history of chronic kidney disease and hypertension that presents to the ED with a chief complaint of fever, vomiting, diarrhea, and a burning sensation in his chest that he has been experiencing for the past seven days. Past Medical History Reviewed: Historical Data, Nursing Documentation, Vital Signs Vital Signs: Last Vital Signs Temp 97.5 F L 03/08/17 12:36 Pulse 73 03/08/17 12:36 Resp 18 03/08/17 12:36 BP 166/84 H 03/08/17 12:36 Pulse Ox 97 03/08/17 12:36 - Medical History PMH: Anemia, Anxiety, Arthritis, CHF, COPD, Depression, Deep Vein Thrombosis ( RUE), HTN, Pneumonia, Chronic Kidney Disease, Seizures Denies: HIV - Surgical History Surgical History: Denies: Coronary Stent - Family History Family History: States: Unknown Family Hx - Immunization History Hx Tetanus Toxoid Vaccination: No Hx Influenza Vaccination: No Hx Pneumococcal Vaccination: No - Home Medications Home Medications: Ambulatory Orders Medication Instructions Recorded Citalopram Hydrobromide [Celexa] 20 mg PO DAILY 03/08/17 Furosemide [Lasix] 40 mg PO BID 03/08/17 Isoniazid [Niazid] 300 mg PO DAILY 03/08/17 Labetalol [Trandate] 200 mg PO BID 03/08/17 Pyridoxine [Vitamin B6] 100 mg PO DAILY 03/08/17 Warfarin [Coumadin] 5 mg PO 1800 03/08/17 cloNIDine [Catapres] 0.3 mg PO BID 03/08/17 hydrALAZINE [Apresoline] 20 mg PO Q8H 03/08/17 predniSONE [predniSONE Tab] 10 mg PO DAILY 03/08/17 - Allergies Allergies/Adverse Reactions: Allergies Allergy/AdvReac Type Severity Reaction Status Date / Time sulfamethoxazole Allergy RASH Verified 03/06/17 17:55 [From ] trimethoprim [From ] Allergy RASH Verified 03/06/17 17:55 Review of Systems Constitutional: Positive for: Fever Gastrointestinal: Positive for: Vomiting, Abdominal Pain, Diarrhea Physical Exam - Reviewed Nursing Documentation Reviewed: Yes Vital Signs Reviewed: Yes - Physical Exam Appears: Positive for: Non-toxic, In Acute Distress (in mild distress) Head Exam: Positive for: ATRAUMATIC, NORMOCEPHALIC Skin: Positive for: Normal Color, Warm, Dry Eye Exam: Positive for: Normal appearance, EOMI, PERRL Cardiovascular/Chest: Positive for: Regular Rate, Rhythm. Negative for: Murmur Respiratory: Positive for: Normal Breath Sounds, Respiratory Distress (in mild respiratory distress) Gastrointestinal/Abdominal: Positive for: Tenderness (generalized abdominal tenderness) Neurologic/Psych: Positive for: Alert, Oriented - Laboratory Results Result Diagrams: 03/08/17 09:45 03/08/17 05:15 - ECG Interpretation Of ECG: ST @ 99, no ST-T changes. O2 Sat by Pulse Oximetry: 94 (RA) Pulse Ox Interpretation: Normal - Radiology X-Ray: Interpreted by Me X-Ray Interpretation: COPD Medical Decision Making Medical Decision Makin:21 Initial Impression: Pyelonephritis vs. Acute Abdominal Pain Initial Plan: * CT A/P with PO and IV contrast * Chest X-Ray * EKG * Venous Blood Gas Shock Panel * CMP * CBC * PTT * PT * Lipase * Urine Dip * Urine culture * Urinalysis * Blood culture * Iohexol 50 ml PO * Sodium Chloride 1000 mL IV at 125 mLs/hr * Reevaluation Scribe Attestation: Documented by Cindy George, acting as a scribe for Sofie Dennis MD. Provider Scribe Attestation: All medical record entries made by the Scribe were at my direction and personally dictated by me. I have reviewed the chart and agree that the record accurately reflects my personal performance of the history, physical exam, medical decision making, and the department course for this patient. I have also personally directed, reviewed, and agree with the discharge instructions and disposition. Disposition - Clinical Impression Clinical Impression: Chest pain, Acute on chronic renal failure - Patient ED Disposition Is Patient to be Admitted: Transfer of Care - Disposition Disposition Time: 19:00 Condition: STABLE Patient Signed Over To: Vick Smith Handoff Comments: Pending CT.
[2017-03-06 18:48] LABS: BASO # 0.1 K/uL (0.0-0.2); EOS # 0.1 K/uL (0.0-0.7); EOS % 0.7 % (0.0-4.0); HEMATOCRIT 29.7 % (35.0-51.0); LYMPH # 1.3 K/uL (1.0-4.3); LYMPH % 18.2 % (20.0-40.0); MEAN CELL VOLUME 91.3 fl (80.0-94.0); MEAN CORPUSCULAR HEMOGLOBIN 30.5 pg (27.0-31.0); MEAN CORPUSCULAR HGB CONC 33.4 g/dL (33.0-37.0); MEAN PLATELET VOLUME 7.2 fl (7.2-11.7); MONO # 0.4 K/uL (0.0-0.8); MONO % 5.1 % (0.0-10.0); NEUT # 5.4 K/uL (1.8-7.0); RED CELL DISTRIBUTION WIDTH 16.1 % (11.5-14.5); WHITE BLOOD COUNT 7.2 K/uL (4.8-10.8)
[2017-03-06] MEDS ORDERED: Iohexol 240 (50 ml) ONE (18:52)
[2017-03-06] MEDS ORDERED: Albuterol-Ipratrop 3 mg / 0.5 (3 ml) UD INH STA (18:55)
[2017-03-06 18:57] LABS: VENOUS BLOOD GAS BASE EXCESS -3.8 mmol/L (0.0-2.0); VENOUS BLOOD GAS PCO2 34 mmHg (40-60); VENOUS BLOOD PH 7.39 (7.32-7.43)
[2017-03-06 19:02] LABS: RBC URINE 952 /hpf (0-3); URINE BILIRUBIN NEGATIVE (NEGATIVE); URINE BLOOD LARGE (NEGATIVE); URINE COLOR RED (YELLOW); URINE GLUCOSE (UA) 50 mg/dL (Normal); URINE KETONE NEGATIVE (NEGATIVE); URINE LEUKOCYTE ESTERASE NEG Leu/uL (Negative); URINE PROTEIN >=500 mg/dL (NEGATIVE); URINE UROBILINOGEN 0.2-1.0 mg/dL (0.2-1.0)
[2017-03-06 19:05] LABS: ALB/GLOB RATIO 0.9 (1.0-2.1); BILIRUBIN,TOTAL 0.6 mg/dl (0.2-1.3); CALCIUM 8.3 mg/dL (8.4-10.2); POTASSIUM 4.5 MMOL/L (3.6-5.0); TOTAL PROTEIN 7.1 G/DL (6.3-8.2)
[2017-03-06 19:27] LABS: PARTIAL THROMBOPLASTIN TIME 27.4 SECONDS (23.3-32.5)
--- NOTE | 2017-03-06 20:16 | ED PDOC ---
- Laboratory Results Result Diagrams: 03/06/17 18:30 03/06/17 18:30 - ECG O2 Sat by Pulse Oximetry: 94 (RA) Medical Decision Making Medical Decision Makin:00 Patient signed over to me by Dr. Sofie Dennis pending remainder of ED workup. 1130PM: Pt. w/ worsening Cr, neg trop, pt. states he's still c/o of CP. Will admit for r/o ACS and worsening renal failure. Disposition - Clinical Impression Clinical Impression: Chest pain, Acute on chronic renal failure - POA Present On Arrival: None - Disposition Disposition: Hospitalized as Observation Patient Disposition Time: 23:30 Condition: STABLE
--- NOTE | 2017-03-06 22:46 | CT ---
EXAM: CT Abdomen and Pelvis without and with Intravenous Contrast CLINICAL HISTORY: 67 years old, male; Pain; Abdominal pain; Generalized; Additional info: Abd pain, fever, v/d TECHNIQUE: Axial computed tomography images of the abdomen and pelvis without intravenous contrast. Oral contrast was utilized. This CT exam was performed using one or more of the following dose reduction techniques: automated exposure control, adjustment of the mA and/or kV according to patient size, and/or use of iterative reconstruction technique. Coronal and sagittal reformatted images were created and reviewed. COMPARISON: CT - ABD PELVIS W/O PO OR IV CONT 02/25/2017 9:47:29 AM FINDINGS: Lower thorax: Small left-sided pleural effusion, with adjacent compressive atelectasis. The heart is enlarged, with a small pericardial effusion. ABDOMEN: Liver: No acute findings. Gallbladder and bile ducts: The gallbladder is minimally distended, without calcified stones. No significant intra- or extrahepatic biliary ductal dilation. Pancreas: Limited evaluation without intravenous contrast. Spleen: No acute findings. Adrenals: No acute findings. Kidneys and ureters: No acute findings. No hydronephrosis or renal calculi. PELVIS: Bladder: No acute findings. Reproductive: No acute findings. Appendix: The appendix is not visualized, however no pericecal inflammatory change is detected. ABDOMEN and PELVIS: Stomach and bowel: Trace dilatation within multiple loops of small bowel with mild mural thickening. No surrounding inflammation or fluid is identified to confirm an enteritis. Colonic diverticulosis, without inflammation. Peritoneum: No significant fluid collection. No free air. Lymph nodes: No pathologically enlarged lymph nodes. Vasculature: Calcified atherosclerotic disease. Bones: No acute fracture. Moderate degenerative disease, with osteophyte formation and disc space narrowing, specifically at the levels of L4/L5. In IMPRESSION: Mural thickening with mild dilatation within multiple loops of small bowel without surrounding inflammation or fluid to confirm an enteritis. Small left-sided pleural effusion with adjacent compressive atelectasis. Scattered diverticulosis, without diverticulitis.
--- NOTE | 2017-03-06 23:53 | CP.PCM.HP ---
History of Present Illness - History of Present Illness History of Present Illness: CC: fever, vomiting, diarrhea, and a burning sensation in his chest x 7 days 67 yo homeless M w PMHx of ANCA Vasculitis, DVT of RUE, CKD, HTN, etoh abuse, COPD, and CHF is admitted for c/o fever, vomiting, diarrhea, and a burning sensation in his chest that he has been experiencing for the past seven days. Also states gross hematuria ( due to underlying vasculitis). He denies chills, dizziness,LOC, headaches, SOB, cough, chest pain, or palpitations, abdominal pain or focal weakness. Patient admits being non adherent to all medications since last discharge from hospital 3 days ago. Of note: during previous hospital stay at [facility], (DC date 03/02/17) pt was treated for CHF exacerbation and gross hematuria. Patient has not been to PMD since then. PMD: 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 h/o Alcohol abuse. denies drug use. Homeless FHx: denies Medications: (not currently adherent to any medication), list below from last DC summary 03/02/17 Citalopram [celEXA] 20 mg PO DAILY cloNIDine [Catapres] 0.3 mg PO BID Furosemide [Lasix] 40 mg PO BID hydrALAZINE [Apresoline] 20 mg PO Q8 Isoniazid [Niazid] 300 mg PO DAILY Labetalol [Trandate] 200 mg PO BID predniSONE [predniSONE Tab] 10 mg PO DAILY Pyridoxine [Vitamin B6] 100 mg PO DAILY Warfarin [Coumadin] 5 mg PO ED course: CT A/P with PO and IV contrast Chest X-Ray EKG Venous Blood Gas Shock Panel CMP CBC coags, troponins Lipase Urine Dip Urine culture Urinalysis Blood culture IVF Present on Admission - Present on Admission Any Indicators Present on Admission: No Review of Systems - Review of Systems Review of Systems: see hpi Past Patient History - Infectious Disease Hx of Infectious Diseases: None - Past Medical History & Family History Past Medical History?: Yes - Past Social History Smoking Status: Never Smoked - CARDIAC Hx Congestive Heart Failure: Yes Hx Hypertension: Yes - PULMONARY Hx Chronic Obstructive Pulmonary Disease (COPD): Yes Hx Pneumonia: Yes - NEUROLOGICAL Hx Seizures: Yes - HEENT Hx HEENT Problems: No - RENAL Hx Chronic Kidney Disease: Yes - ENDOCRINE/METABOLIC Hx Endocrine Disorders: No - HEMATOLOGICAL/ONCOLOGICAL Hx Anemia: Yes Hx Human Immunodeficiency Virus (HIV): No - INTEGUMENTARY Hx Dermatological Problems: No - MUSCULOSKELETAL/RHEUMATOLOGICAL Hx Arthritis: Yes - GASTROINTESTINAL Hx Hemorrhoids: Yes - GENITOURINARY/GYNECOLOGICAL Hx Genitourinary Disorders: No - PSYCHIATRIC Hx Anxiety: Yes Hx Depression: Yes - SURGICAL HISTORY Hx Coronary Stent: No - ANESTHESIA Hx Anesthesia: Yes Hx Anesthesia Reactions: No Meds Allergies/Adverse Reactions: Allergies Allergy/AdvReac Type Severity Reaction Status Date / Time sulfamethoxazole Allergy RASH Verified 03/06/17 17:55 [From ] trimethoprim [From ] Allergy RASH Verified 03/06/17 17:55 Physical Exam - Constitutional Appears: No Acute Distress, Unkempt - Head Exam Head Exam: ATRAUMATIC - Eye Exam Eye Exam: EOMI Pupil Exam: PERRL - ENT Exam ENT Exam: Mucous Membranes Moist - Neck Exam Neck exam: Positive for: Full Rom. Negative for: Tenderness - Respiratory Exam Respiratory Exam: Clear to Auscultation Bilateral. absent: Accessory Muscle Use , Respiratory Distress - Cardiovascular Exam Cardiovascular Exam: +S1, +S2 - GI/Abdominal Exam GI & Abdominal Exam: Normal Bowel Sounds, Soft, Tenderness. absent: Distended Additional comments: mild generalized non specific abdominal tenderness to palpation - Extremities Exam Extremities exam: Positive for: pedal pulses present. Negative for: calf tenderness - Back Exam Back exam: absent: CVA tenderness (L), CVA tenderness (R) - Neurological Exam Neurological exam: Alert, Oriented x3 - Psychiatric Exam Psychiatric exam: Normal Affect - Skin Skin Exam: Dry, Warm Results - Vital Signs Recent Vital Signs: Last Vital Signs Temp 100.1 F H 03/06/17 17:55 Pulse 92 H 03/06/17 17:55 Resp 16 03/06/17 17:55 BP 163/91 H 03/06/17 17:55 Pulse Ox 94 L 03/06/17 20:16 - Labs Result Diagrams: 03/06/17 18:30 03/06/17 18:30 Labs: Laboratory Results - last 24 hr 03/06/17 03/06/17 03/06/17 18:30 18:30 18:30 WBC 7.2 RBC 3.25 L Hgb 9.9 L Hct 29.7 L MCV 91.3 MCH 30.5 MCHC 33.4 RDW 16.1 H Plt Count 234 MPV 7.2 Neut % (Auto) 75.0 Lymph % (Auto) 18.2 L [place] % (Auto) 5.1 Eos % (Auto) 0.7 Baso % (Auto) 1.0 Neut # 5.4 Lymph # 1.3 [place] # 0.4 Eos # 0.1 Baso # 0.1 PT 12.9 H INR 1.24 H APTT 27.4 pO2 VBG pH VBG pCO2 VBG HCO3 VBG Total CO2 VBG O2 Sat (Calc) VBG Base Excess VBG Potassium Glucose Lactate FiO2 Sodium 139 Potassium 4.5 Chloride 107 Carbon Dioxide 19 L Anion Gap 18 BUN 79 H Creatinine 4.4 H Est GFR ( Amer) 16 Est GFR (Non-Af Amer) 14 Random Glucose 104 Calcium 8.3 L Total Bilirubin 0.6 AST 35 ALT 18 L D Alkaline Phosphatase 61 Total Protein 7.1 Albumin 3.3 L D Globulin 3.8 Albumin/Globulin Ratio 0.9 L Lipase 135 Venous Blood Potassium Urine Color Urine Clarity Urine pH Ur Specific [place] Urine Protein Urine Glucose (UA) Urine Ketones Urine Blood Urine Nitrate Urine Bilirubin Urine Urobilinogen Ur Leukocyte Esterase Urine RBC (Auto) Ur Squamous Epith Cells Hyaline Casts 03/06/17 03/06/17 18:30 18:55 WBC RBC Hgb Hct MCV MCH MCHC RDW Plt Count MPV Neut % (Auto) Lymph % (Auto) [place] % (Auto) Eos % (Auto) Baso % (Auto) Neut # Lymph # [place] # Eos # Baso # PT INR APTT pO2 39 VBG pH 7.39 VBG pCO2 34 L VBG HCO3 21.6 VBG Total CO2 21.6 L VBG O2 Sat (Calc) 83.8 H VBG Base Excess -3.8 L VBG Potassium 4.4 Glucose 102 Lactate 0.7 FiO2 21.0 Sodium 137.0 Potassium Chloride 107.0 Carbon Dioxide Anion Gap BUN Creatinine Est GFR ( Amer) Est GFR (Non-Af Amer) Random Glucose Calcium Total Bilirubin AST ALT Alkaline Phosphatase Total Protein Albumin Globulin Albumin/Globulin Ratio Lipase Venous Blood Potassium 4.4 Urine Color Red Urine Clarity Slighty-cloudy Urine pH 6.0 Ur Specific [place] 1.016 Urine Protein >=500 Urine Glucose (UA) 50 Urine Ketones Negative Urine Blood Large Urine Nitrate Negative Urine Bilirubin Negative Urine Urobilinogen 0.2-1.0 Ur Leukocyte Esterase Neg Urine RBC (Auto) 952 H Ur Squamous Epith Cells < 1 Hyaline Casts >20 H Assessment & Plan - Assessment and Plan (Free Text) Assessment: 67 yo homeless M w PMHx of ANCA Vasculitis, DVT of RUE, CKD, HTN, etoh abuse, COPD, and CHF is admitted to rule out ACS, c/o fever, vomiting, diarrhea, and a burning sensation in his chest. Chest discomfort GERD v. ACS troponins x 3 ( #1 WNL, 2, 3 pending) EKG: no ST changes ED course:CT A/P with PO and IV contrast Chest X-Ray EKG Venous Blood Gas Shock Panel, cbc, cmp, lipase,Urine culture,Urinalysis,Blood culture, IVF admit to telemetry cont cardiac monitoring Echocardiogram on 12/08/2016 reports LVEF of 45-50% with infero-lateral wall hypokinesis and mild concentric left ventricular hypertrophy. Non localized, general abdominal pain CT abdo w/ contrast: unremarkable Pepcid PO BID CKD 2/2 pauci immune, ANCA vasculitis restart home meds cautious hydration if necessary( received IVF in ER) repeat labs in AM Chronic HTN 2/2 CKD restart home medication CHF, systolic Echocardiogram on 12/08/2016 reports LVEF of 45-50% with infero-lateral wall hypokinesis and mild concentric left ventricular hypertrophy. Ppx DVT - Patient to restart home med warfarin 5mg PO daily Diet HH, renal diet
--- NOTE | 2017-03-07 07:22 | CARD ---
APPROVED REPORT EKG Measurement Heart [id number] <Conclusion> Sinus rhythm with frequent ventricular-paced complexes Prolonged QT Abnormal ECG
[2017-03-07] MEDS: Pyridoxine 100 mg Tab PO SCH (08:56)
[2017-03-07] MEDS ORDERED: Sodium Chloride 0.9% 1,000 ML IV SCH ×2 (09:15→10:46)
[2017-03-07 09:26] LABS: ALB/GLOB RATIO 0.8 (1.0-2.1); BILIRUBIN,TOTAL 0.4 mg/dl (0.2-1.3); POTASSIUM 4.3 MMOL/L (3.6-5.0)
--- NOTE | 2017-03-07 09:38 | CP.PCM.PN ---
Subjective - Date & Time of Evaluation Date of Evaluation: 03/07/17 Time of Evaluation: 07:55 - Subjective Subjective: Patient was seen and examined at bedside this morning. 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 Patient reports a history of nausea, vomiting, non bloody diarrheas since the last 8 days. Patient is complaining of abdominal pain, and epigastric burning sensation. Objective - Vital Signs/Intake and Output Vital Signs (last 24 hours): Temp Pulse Resp BP Pulse Ox 98.6 F 122 H 18 167/82 H 92 L 03/07/17 08:06 03/07/17 08:56 03/07/17 08:06 03/07/17 08:56 03/07/17 08:06 - Medications Medications: Current Medications Amlodipine Besylate (Norvasc) 10 mg PO DAILY [facility] Last Admin: 03/07/17 08:56 Dose: 10 mg Clonidine HCl (Catapres) 0.3 mg PO BID [facility] Last Admin: 03/07/17 08:54 Dose: 0.3 mg Famotidine (Pepcid) 20 mg PO BID [facility] Last Admin: 03/07/17 08:56 Dose: 20 mg Furosemide (Lasix) 40 mg PO DAILY [facility] Last Admin: 03/07/17 08:55 Dose: 40 mg Hydralazine HCl (Apresoline) 20 mg PO Q8 [facility] Last Admin: 03/07/17 08:54 Dose: 20 mg Hydralazine HCl (Apresoline) 20 mg IV TID [facility] Sodium Chloride (Sodium Chloride 0.9%) 1,000 mls @ 100 mls/hr IV .Q10H [facility] Stop: 03/08/17 09:02 Isoniazid (Niazid) 300 mg PO DAILY [facility] Last Admin: 03/07/17 08:55 Dose: 300 mg Labetalol HCl (Trandate) 200 mg PO BID [facility] Last Admin: 03/07/17 08:56 Dose: 200 mg Lactic Acid (Lac-Hydrin 12% Lotion (225 G)) 1 applic TOP DAILY [facility] Last Admin: 03/07/17 08:56 Dose: 1 applic Pantoprazole Sodium (Protonix Inj) 40 mg IVP DAILY [facility] Prednisone (Prednisone Tab) 20 mg PO DAILY [facility] Pyridoxine HCl (Vitamin B6) 100 mg PO DAILY [facility] Last Admin: 03/07/17 08:56 Dose: 100 mg Warfarin Sodium (Coumadin) 5 mg PO QD5 [facility] PRN Reason: Protocol Stop: 03/07/17 17:01 - Labs Labs: 03/07/17 07:50 PT 13.2 SECONDS (9.6-11.2) H 03/07/17 07:50 INR 1.27 (0.92-1.08) H 03/07/17 07:50 APTT 27.4 SECONDS (23.3-32.5) 03/06/17 18:30 - Constitutional Appears: Other (looks uncomfortable because pain and general discomfort) - Eye Exam Eye Exam: Normal appearance - ENT Exam ENT Exam: Mucous Membranes Moist - Respiratory Exam Respiratory Exam: Clear to Ausculation Bilateral (clear right lung field to auscultation), Rales (middle and lower left lung field) - Cardiovascular Exam Cardiovascular Exam: REGULAR RHYTHM, +S1, +S2, Murmur - GI/Abdominal Exam GI & Abdominal Exam: Distended, Soft, Tenderness (diffuse tender to palpation, but no rigidity or rebound noted), Hyperactive Bowel Sounds. absent: Guarding, Rigid - Extremities Exam Extremities Exam: Pedal Edema Additional comments: Bilateral lower extremities edema below knees, pitting 2 +, DP and PT pulses diminished bilateral - Neurological Exam Neurological Exam: Alert, Awake, Oriented x3 - Skin Skin Exam: Dry, Intact, Normal Color Assessment and Plan - Assessment and Plan (Free Text) Assessment: 67 yo homeless M w PMHx of ANCA Vasculitis, DVT of RUE, CKD, HTN, etoh abuse, COPD, and CHF is admitted to rule out ACS, complaining of PO intolerance and diarrheas. Plan: Plan: 1) Nausea, vomiting, diarrheas and abdominal pain. -NPO -Hold IV fluids hydration for now until Nephrology evaluates patient -F/U obstructive abdominal X ray series ordered on 03/07/17. Pending official report. -CT abdomen at ED showed : Mural thickening with mild dilatation within multiple loops of small bowel without surrounding inflammation or fluid to confirm an enteritis. Small left- sided pleural effusion with adjacent compressive atelectasis. Scattered diverticulosis, without diverticulitis. 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 F/U Nephrology consult recommendations. Dr Joaquin -Repeat BUN/Creatinine on 03/07/17: 7.3/4.4 -BUN/creatinine at ED was :74/4.4 -Prednisone 20 mg PO on hold for now -Start Methylprednisolone 20 mg IV daily 4)Congestive Heart Failure -Pro-BNP on 03/07/17 was 4410, but stable from previous baseline -Continue Furosemide 40 mg IV daily -Hold Furosemide 40 mg PO because NPO status 5) HTN most likely secondary to CKD -Hydralazine 20 mg IV TID -Labetalol 20 mg IV BID -Hold PO antihypertensive while NPO, resume PO medications and discontinue IV antihypertensives when patient is out of NPO -Hold Hydralazine 20 mg PO TID -Hold Labetalol 200 mg PO BID 6)DVT prophylaxis -SCDs -Heparin 5000 units BID SC -No Lovenox due to impaired renal function -Hold Walfarin PO 7) Latent TB -Positive QFT on 12/2016 -Isoniazid 300 mg daily -Patient reports he has not been complaint with TB treatment -Hold Isoniazid 8)H/O Reactive FTA-ABS -Asymptomatic at this time -F/U T. Pallidum antibodies titer ordered on 03/07/17
--- NOTE | 2017-03-07 10:22 | CARD ---
APPROVED REPORT EKG Measurement Heart [id number] <Conclusion> Sinus tachycardia Otherwise normal ECG
--- NOTE | 2017-03-07 11:01 | RAD ---
HISTORY: Fever COMPARISON: No prior. FINDINGS: LUNGS: There appears to be mild asymmetric pulmonary vascular congestive changes right side more pronounced than the left. Previously noted small left-sided effusion has diminished in size PLEURA: No significant pleural effusion identified, no pneumothorax apparent. CARDIOVASCULAR: Heart size unchanged OSSEOUS STRUCTURES: No significant abnormalities. VISUALIZED UPPER ABDOMEN: Normal. OTHER FINDINGS: None. IMPRESSION: There appears to be mild asymmetric pulmonary vascular congestive changes right side more pronounced than the left. Previously noted small left-sided effusion has diminished in size
--- NOTE | 2017-03-07 12:35 | RAD ---
Chest abdominal series dated 03/07/2017. History: Rule out abdominal obstruction. Frontal view of the chest and supine/erect views of the abdomen performed. Comparison made with chest radiograph and CT scan chest both dated 03/06/2017. Findings: The current study reveals patchy infiltrate changes seen throughout the right upper and to a lesser degree right mid lung field. No free air seen under the diaphragmatic surfaces. The no evidence of acute mechanical bowel obstruction with oral contrast material not present in the colon. Distended air-filled loop of bowel in the mid abdomen could represent air within the stomach as well as small bowel. Impression: Patchy infiltrate changes seen in the right upper and to a lesser degree right mid lung zone. No evidence of acute mechanical bowel obstruction.
[2017-03-07] MEDS: Sodium Chloride 0.9% 1,000 ML IV SCH (15:40)
[2017-03-07] MEDS: Labetalol 5mg/ml (4ml) IVP SCH (16:01)
[2017-03-07] MEDS: methylPREDNISolone 20 MG in Sodium Chloride 0.9% 50 ML IVPB SCH (17:00)
[2017-03-08 07:32] LABS: CALCIUM 7.8 mg/dL (8.4-10.2); POTASSIUM 4.9 MMOL/L (3.6-5.0)
[2017-03-08 07:44] LABS: BASO % 0.4 % (0.0-2.0); EOS % 0.1 % (0.0-4.0); HEMATOCRIT 25.6 % (35.0-51.0); LYMPH # 0.5 K/uL (1.0-4.3); LYMPH % 16.8 % (20.0-40.0); MEAN CELL VOLUME 90.5 fl (80.0-94.0); MEAN CORPUSCULAR HEMOGLOBIN 30.4 pg (27.0-31.0); MEAN CORPUSCULAR HGB CONC 33.6 g/dL (33.0-37.0); MEAN PLATELET VOLUME 7.5 fl (7.2-11.7); MONO # 0.1 K/uL (0.0-0.8); MONO % 3.5 % (0.0-10.0); NEUT # 2.2 K/uL (1.8-7.0); NEUT % 79.2 % (50.0-75.0); RED CELL DISTRIBUTION WIDTH 15.2 % (11.5-14.5)
[2017-03-08 07:46] LABS: WHITE BLOOD COUNT 2.8 K/uL (4.8-10.8)
[2017-03-08] MEDS: methylPREDNISolone 20 MG in Sodium Chloride 0.9% 50 ML IVPB SCH (08:52)
[2017-03-08] MEDS: Labetalol 5mg/ml (4ml) IVP SCH ×2 (08:52→16:03)
[2017-03-08] MEDS: Pyridoxine 100 mg Tab PO SCH (08:53)
--- NOTE | 2017-03-08 08:54 | CP.PCM.PN ---
Subjective - Date & Time of Evaluation Date of Evaluation: 03/08/17 Time of Evaluation: 07:00 - Subjective Subjective: Patient was seen and examined at bedside this morning. Patient feels better this morning, and states he feels hungry. Denies nausea, vomiting, diarrheas, heartburn sensation, abdominal pain at this evaluation. Reports mild pain in his feet. Patient had an uneventful night. Objective - Vital Signs/Intake and Output Vital Signs (last 24 hours): Temp Pulse Resp BP Pulse Ox 97.5 F L 80 18 156/79 H 97 03/08/17 08:10 03/08/17 08:10 03/08/17 08:10 03/08/17 08:10 03/08/17 08:10 Intake and Output: 03/08/17 03/08/17 06:59 18:59 Intake Total 1200 Balance 1200 - Medications Medications: Current Medications Furosemide (Lasix) 40 mg IVP DAILY [facility] Heparin Sodium (Porcine) (Heparin) 5,000 units SC Q12 ZORAIDA PRN Reason: Protocol Last Admin: 03/07/17 21:33 Dose: 5,000 units Sodium Chloride (Sodium Chloride 0.9%) 1,000 mls @ 80 mls/hr IV .[id number] [facility] Stop: 03/08/17 14:43 Last Admin: 03/07/17 15:40 Dose: 80 mls/hr Methylprednisolone 20 mg/ (Sodium Chloride) 50 mls @ 100 mls/hr IVPB DAILY [facility] Last Admin: 03/07/17 17:00 Dose: 100 mls/hr Ketorolac Tromethamine (Toradol) 15 mg IVP Q12 PRN PRN Reason: Pain, moderate (4-7) Last Admin: 03/07/17 16:04 Dose: 15 mg Labetalol HCl (Trandate) 20 mg IVP BID [facility] Last Admin: 03/07/17 16:01 Dose: 20 mg Lactic Acid (Lac-Hydrin 12% Lotion (225 G)) 1 applic TOP DAILY [facility] Last Admin: 03/07/17 08:56 Dose: 1 applic Pantoprazole Sodium (Protonix Inj) 40 mg IVP DAILY [facility] Last Admin: 03/07/17 10:29 Dose: 40 mg Pyridoxine HCl (Vitamin B6) 100 mg PO DAILY [facility] Last Admin: 03/07/17 08:56 Dose: 100 mg - Labs Labs: 03/08/17 05:15 03/08/17 05:15 PT 13.2 SECONDS (9.6-11.2) H 03/07/17 07:50 INR 1.27 (0.92-1.08) H 03/07/17 07:50 APTT 27.4 SECONDS (23.3-32.5) 03/06/17 18:30 - Constitutional Appears: Non-toxic, No Acute Distress - Eye Exam Eye Exam: Normal appearance - ENT Exam ENT Exam: Mucous Membranes Moist - Respiratory Exam Respiratory Exam: Clear to Ausculation Bilateral (right lung field), Rales ( fine rales in middle and lower lung field), NORMAL BREATHING PATTERN - Cardiovascular Exam Cardiovascular Exam: REGULAR RHYTHM, +S1, +S2 - GI/Abdominal Exam GI & Abdominal Exam: Soft, Normal Bowel Sounds. absent: Distended, Tenderness - Extremities Exam Extremities Exam: Pedal Edema. absent: Calf Tenderness Additional comments: Bilateral below knees edema, pitting 2+. DP and PT pulses diminished bilateral. Radial pulses bilateral. - Neurological Exam Neurological Exam: Alert, Awake, Oriented x3 - Psychiatric Exam Psychiatric exam: Normal Affect, Normal Mood - Skin Skin Exam: Dry, Intact, Pallor Assessment and Plan - Assessment and Plan (Free Text) Assessment: 67 yo homeless M w PMHx of ANCA Vasculitis, DVT of RUE, CKD, HTN, etoh abuse, COPD, and CHF is admitted to rule out ACS, complaining of PO intolerance and diarrheas, improving. Plan: Plan: 1) Nausea, vomiting, diarrheas and abdominal pain. -Improving, denies symptoms at this time -Advance diet from Liquid clear to [place] diet, assess diet tolerance -IV fluids @ 60 ml/hr as per Nephrology recommendations,f/u Nephrology recommendations -Obstructive abdominal X ray series ordered on 03/07/17 showed patchy infiltrate changes seen in the right upper and to a lesser degree right mid lung zone. No evidence of acute mechanical bowel obstruction. -CT abdomen at ED showed : Mural thickening with mild dilatation within multiple loops of small bowel without surrounding inflammation or fluid to confirm an enteritis. Small left- sided pleural effusion with adjacent compressive atelectasis. Scattered diverticulosis, without diverticulitis. 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 Nephrology consult recommendations. Dr Sandoval suggested to continue gentle hydration perhaps 60 mL/h for the next 24 hours and GI evaluation. Keep monitor kidney function. Dr. Sandoval will check the date of the last Cytoxan was given to determine the next dose. -Repeat BUN/Creatinine trending up 78/5.2 -BUN/creatinine at ED was :74/4.4 -Prednisone 20 mg PO on hold for now -Methylprednisolone 20 mg IV daily -F/U CBC w/diff and BMP 4) Leucopenia with persistent anemia. -Anemia could be related to CKD, and vasculitis but active bleeding can not be r /o -Jluis/Onc consult appreciated. Dr. Bobo. F/u recommendations -F/U FOBT -F/U Fugitell test -F/U temperature, if decrease, then consider ID consult 5)Congestive Heart Failure -Improving at physical exam -Pro-BNP on 03/07/17 was 4410, but stable from previous baseline -Continue Furosemide 40 mg IV daily -Hold Furosemide 40 mg PO because NPO status 6) HTN most likely secondary to CKD -Hydralazine 20 mg IV TID -Labetalol 20 mg IV BID -Hold Hydralazine 20 mg PO TID -Hold Labetalol 200 mg PO BID 7)DVT prophylaxis -SCDs -Heparin 5000 units BID SC -No Lovenox due to impaired renal function -Hold Walfarin PO 8) Latent TB -Positive QFT on 12/2016 -Isoniazid 300 mg daily -Patient reports he has not been complaint with TB treatment -Hold Isoniazid 9)H/O Reactive FTA-ABS -Asymptomatic at this time -F/U T. Pallidum antibodies titer ordered on 03/07/17.Pending
[2017-03-08 09:59] LABS: HEMATOCRIT 25.5 % (35.0-51.0); MEAN CELL VOLUME 90.6 fl (80.0-94.0); MEAN CORPUSCULAR HEMOGLOBIN 30.6 pg (27.0-31.0); MEAN CORPUSCULAR HGB CONC 33.8 g/dL (33.0-37.0); RED CELL DISTRIBUTION WIDTH 15.4 % (11.5-14.5); WHITE BLOOD COUNT 3.6 K/uL (4.8-10.8)
--- NOTE | 2017-03-08 12:50 | CP.PCM.CON ---
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 h/o Alcohol abuse. denies drug use. Homeless FHx: denies Medications: (not currently adherent to any medication), list below from last DC summary 03/02/17 Citalopram [celEXA] 20 mg PO DAILY cloNIDine [Catapres] 0.3 mg PO BID Furosemide [Lasix] 40 mg PO BID hydrALAZINE [Apresoline] 20 mg PO Q8 Isoniazid [Niazid] 300 mg PO DAILY Labetalol [Trandate] 200 mg PO BID predniSONE [predniSONE Tab] 10 mg PO DAILY Pyridoxine [Vitamin B6] 100 mg PO DAILY Warfarin [Coumadin] 5 mg PO Review of Systems - Constitutional Constitutional: As Per HPI - EENT Eyes: As Per HPI - Cardiovascular Cardiovascular: As Per HPI. absent: Chest Pain - Respiratory Respiratory: As Per HPI. absent: Hemoptysis - Gastrointestinal Gastrointestinal: Abdominal Pain, Vomiting - Reproductive: Male Reproductive:Male: As Per HPI - Musculoskeletal Musculoskeletal: As Per HPI - Neurological Neurological: As Per HPI Past Patient History - Infectious Disease Hx of Infectious Diseases: None - Past Medical History & Family History Past Medical History?: Yes - Past Social History Smoking Status: Never Smoked - CARDIAC Hx Congestive Heart Failure: Yes Hx Hypertension: Yes - PULMONARY Hx Chronic Obstructive Pulmonary Disease (COPD): Yes Hx Pneumonia: Yes - NEUROLOGICAL Hx Seizures: Yes - HEENT Hx HEENT Problems: No - RENAL Hx Chronic Kidney Disease: Yes - ENDOCRINE/METABOLIC Hx Endocrine Disorders: No - HEMATOLOGICAL/ONCOLOGICAL Hx Anemia: Yes Hx Human Immunodeficiency Virus (HIV): No - INTEGUMENTARY Hx Dermatological Problems: No - MUSCULOSKELETAL/RHEUMATOLOGICAL Hx Arthritis: Yes Hx Falls: Yes - GASTROINTESTINAL Hx Hemorrhoids: Yes - GENITOURINARY/GYNECOLOGICAL Hx Genitourinary Disorders: No - PSYCHIATRIC Hx Anxiety: Yes Hx Depression: Yes Hx Substance Use: No - SURGICAL HISTORY Hx Coronary Stent: No - ANESTHESIA Hx Anesthesia: Yes Hx Anesthesia Reactions: No Meds Allergies/Adverse Reactions: Allergies Allergy/AdvReac Type Severity Reaction Status Date / Time sulfamethoxazole Allergy RASH Verified 03/06/17 17:55 [From ] trimethoprim [From ] Allergy RASH Verified 03/06/17 17:55 - Medications Medications: Current Medications Furosemide (Lasix) 40 mg IVP DAILY [facility] Last Admin: 03/08/17 08:51 Dose: 40 mg Heparin Sodium (Porcine) (Heparin) 5,000 units SC Q12 ZORAIDA PRN Reason: Protocol Last Admin: 03/08/17 08:51 Dose: 5,000 units Sodium Chloride (Sodium Chloride 0.9%) 1,000 mls @ 80 mls/hr IV .[id number] [facility] Stop: 03/08/17 14:43 Last Admin: 03/07/17 15:40 Dose: 80 mls/hr Methylprednisolone 20 mg/ (Sodium Chloride) 50 mls @ 100 mls/hr IVPB DAILY [facility] Last Admin: 03/08/17 08:52 Dose: 100 mls/hr Ketorolac Tromethamine (Toradol) 15 mg IVP Q12 PRN PRN Reason: Pain, moderate (4-7) Last Admin: 03/07/17 16:04 Dose: 15 mg Labetalol HCl (Trandate) 20 mg IVP BID [facility] Last Admin: 03/08/17 08:52 Dose: 20 mg Lactic Acid (Lac-Hydrin 12% Lotion (225 G)) 1 applic TOP DAILY [facility] Last Admin: 03/08/17 08:51 Dose: 1 applic Pantoprazole Sodium (Protonix Inj) 40 mg IVP DAILY [facility] Last Admin: 03/08/17 08:52 Dose: 40 mg Pyridoxine HCl (Vitamin B6) 100 mg PO DAILY [facility] Last Admin: 03/08/17 08:53 Dose: 100 mg Physical Exam - Constitutional Appears: No Acute Distress - ENT Exam ENT Exam: Mucous Membranes Dry - Neck Exam Neck exam: Negative for: Lymphadenopathy - Respiratory Exam Respiratory Exam: NORMAL BREATHING PATTERN. absent: Chest Wall Tenderness - Cardiovascular Exam Cardiovascular Exam: REGULAR RHYTHM. absent: Rubs - GI/Abdominal Exam GI & Abdominal Exam: Normal Bowel Sounds - Extremities Exam Extremities exam: Negative for: calf tenderness - Back Exam Back exam: absent: CVA tenderness (L), CVA tenderness (R) - Neurological Exam Neurological exam: Alert Results - Vital Signs Recent Vital Signs: Last Vital Signs Temp 97.5 F L 03/08/17 12:36 Pulse 73 03/08/17 12:36 Resp 18 03/08/17 12:36 BP 166/84 H 03/08/17 12:36 Pulse Ox 97 03/08/17 12:36 - Labs Result Diagrams: 03/08/17 09:45 03/08/17 05:15 Labs: Laboratory Results - last 24 hr 03/07/17 03/08/17 03/08/17 16:30 05:15 05:15 WBC 2.8 L D RBC 2.83 L Hgb 8.6 L Hct 25.6 L MCV 90.5 MCH 30.4 MCHC 33.6 RDW 15.2 H Plt Count 218 MPV 7.5 Neut % (Auto) 79.2 H Lymph % (Auto) 16.8 L Stokes % (Auto) 3.5 Eos % (Auto) 0.1 Baso % (Auto) 0.4 Neut # 2.2 Lymph # 0.5 L Stokes # 0.1 Eos # 0.0 Baso # 0.0 Sodium 134 Potassium 4.9 Chloride 106 Carbon Dioxide 19 L Anion Gap 14 BUN 78 H Creatinine 5.2 H Est GFR ( Amer) 14 Est GFR (Non-Af Amer) 11 Random Glucose 173 H Calcium 7.8 L Troponin I 0.0350 03/08/17 09:45 WBC 3.6 L RBC 2.81 L Hgb 8.6 L Hct 25.5 L MCV 90.6 MCH 30.6 MCHC 33.8 RDW 15.4 H Plt Count 214 MPV Neut % (Auto) Lymph % (Auto) Stokes % (Auto) Eos % (Auto) Baso % (Auto) Neut # Lymph # Stokes # Eos # Baso # Sodium Potassium Chloride Carbon Dioxide Anion Gap BUN Creatinine Est GFR ( Amer) Est GFR (Non-Af Amer) Random Glucose Calcium Troponin I Assessment & Plan - Assessment and Plan (Free Text) Assessment: Patient appears to have acute kidney injury superimposed on chronic kidney disease which is probably related to his vasculitis Patient appeared to be hypovolemic and intravascular. Suggest to continue gentle hydration perhaps 60 mL/h for the next 24 hours and the GI evaluation Keep monitor kidney function We will check the date of the last Cytoxan was given to determine the next dose.
--- NOTE | 2017-03-08 13:37 | CP.PCM.CON ---
History of Present Illness - History of Present Illness History of Present Illness: 67 year old male with a history of tobacco abuse, HTN, latent TB, renal failure secondary to ANCA vasculitis s/p steroids and Cytoxan, admitted with vomiting, chest pain, and hematuria, found to be leukopenic and anemic. The patient is well known to me from prior admissions. His hematuria in the past was felt to be related to vasculitis. He has not had leukopenia in the past. Past medical history: tobacco abuse, htn, Past surgical history: None Family history: Denies hematologic and oncologic problems Social history: 1ppd x 35 years, denies alcohol, and illicit drug use. Allergies: Bactrim Review of systems: All remaining review of systems including HEENT, cardiovascular, respiratory, gastrointestinal, genitourinary, musculoskeletal, dermatologic, neurologic, and psychiatric are negative unless mentioned in the HPI. Past Patient History - Infectious Disease Hx of Infectious Diseases: None - Past Medical History & Family History Past Medical History?: Yes - Past Social History Smoking Status: Never Smoked - CARDIAC Hx Congestive Heart Failure: Yes Hx Hypertension: Yes - PULMONARY Hx Chronic Obstructive Pulmonary Disease (COPD): Yes Hx Pneumonia: Yes - NEUROLOGICAL Hx Seizures: Yes - HEENT Hx HEENT Problems: No - RENAL Hx Chronic Kidney Disease: Yes - ENDOCRINE/METABOLIC Hx Endocrine Disorders: No - HEMATOLOGICAL/ONCOLOGICAL Hx Anemia: Yes Hx Human Immunodeficiency Virus (HIV): No - INTEGUMENTARY Hx Dermatological Problems: No - MUSCULOSKELETAL/RHEUMATOLOGICAL Hx Arthritis: Yes Hx Falls: Yes - GASTROINTESTINAL Hx Hemorrhoids: Yes - GENITOURINARY/GYNECOLOGICAL Hx Genitourinary Disorders: No - PSYCHIATRIC Hx Anxiety: Yes Hx Depression: Yes Hx Substance Use: No - SURGICAL HISTORY Hx Coronary Stent: No - ANESTHESIA Hx Anesthesia: Yes Hx Anesthesia Reactions: No Meds Allergies/Adverse Reactions: Allergies Allergy/AdvReac Type Severity Reaction Status Date / Time sulfamethoxazole Allergy RASH Verified 03/06/17 17:55 [From ] trimethoprim [From ] Allergy RASH Verified 03/06/17 17:55 - Medications Medications: Current Medications Furosemide (Lasix) 40 mg IVP DAILY [facility] Last Admin: 03/08/17 08:51 Dose: 40 mg Heparin Sodium (Porcine) (Heparin) 5,000 units SC Q12 ZORAIDA PRN Reason: Protocol Last Admin: 03/08/17 08:51 Dose: 5,000 units Sodium Chloride (Sodium Chloride 0.9%) 1,000 mls @ 80 mls/hr IV .[id number] [facility] Stop: 03/08/17 14:43 Last Admin: 03/07/17 15:40 Dose: 80 mls/hr Methylprednisolone 20 mg/ (Sodium Chloride) 50 mls @ 100 mls/hr IVPB DAILY [facility] Last Admin: 03/08/17 08:52 Dose: 100 mls/hr Ketorolac Tromethamine (Toradol) 15 mg IVP Q12 PRN PRN Reason: Pain, moderate (4-7) Last Admin: 03/07/17 16:04 Dose: 15 mg Labetalol HCl (Trandate) 20 mg IVP BID [facility] Last Admin: 03/08/17 08:52 Dose: 20 mg Lactic Acid (Lac-Hydrin 12% Lotion (225 G)) 1 applic TOP DAILY [facility] Last Admin: 03/08/17 08:51 Dose: 1 applic Pantoprazole Sodium (Protonix Inj) 40 mg IVP DAILY [facility] Last Admin: 03/08/17 08:52 Dose: 40 mg Pyridoxine HCl (Vitamin B6) 100 mg PO DAILY [facility] Last Admin: 03/08/17 08:53 Dose: 100 mg Physical Exam - Head Exam Head Exam: ATRAUMATIC - Eye Exam Eye Exam: Normal appearance - ENT Exam ENT Exam: Mucous Membranes Dry - Respiratory Exam Respiratory Exam: NORMAL BREATHING PATTERN - Cardiovascular Exam Cardiovascular Exam: +S1, +S2 - GI/Abdominal Exam GI & Abdominal Exam: Normal Bowel Sounds - Extremities Exam Extremities exam: Positive for: pedal edema - Neurological Exam Neurological exam: Oriented x3 - Psychiatric Exam Psychiatric exam: Normal Affect, Normal Mood - Skin Skin Exam: Warm Results - Vital Signs Recent Vital Signs: Last Vital Signs Temp 97.5 F L 03/08/17 12:36 Pulse 73 03/08/17 12:36 Resp 18 03/08/17 12:36 BP 166/84 H 03/08/17 12:36 Pulse Ox 97 03/08/17 12:36 - Labs Result Diagrams: 03/08/17 09:45 03/08/17 05:15 Labs: Laboratory Results - last 24 hr 03/07/17 03/08/17 03/08/17 16:30 05:15 05:15 WBC 2.8 L D RBC 2.83 L Hgb 8.6 L Hct 25.6 L MCV 90.5 MCH 30.4 MCHC 33.6 RDW 15.2 H Plt Count 218 MPV 7.5 Neut % (Auto) 79.2 H Lymph % (Auto) 16.8 L Bledsoe % (Auto) 3.5 Eos % (Auto) 0.1 Baso % (Auto) 0.4 Neut # 2.2 Lymph # 0.5 L Bledsoe # 0.1 Eos # 0.0 Baso # 0.0 Sodium 134 Potassium 4.9 Chloride 106 Carbon Dioxide 19 L Anion Gap 14 BUN 78 H Creatinine 5.2 H Est GFR ( Amer) 14 Est GFR (Non-Af Amer) 11 Random Glucose 173 H Calcium 7.8 L Troponin I 0.0350 03/08/17 09:45 WBC 3.6 L RBC 2.81 L Hgb 8.6 L Hct 25.5 L MCV 90.6 MCH 30.6 MCHC 33.8 RDW 15.4 H Plt Count 214 MPV Neut % (Auto) Lymph % (Auto) Bledsoe % (Auto) Eos % (Auto) Baso % (Auto) Neut # Lymph # Bledsoe # Eos # Baso # Sodium Potassium Chloride Carbon Dioxide Anion Gap BUN Creatinine Est GFR ( Amer) Est GFR (Non-Af Amer) Random Glucose Calcium Troponin I Assessment & Plan (1) Leukopenia Assessment and Plan: likely benign no neutropenia Status: Acute (2) Anemia Assessment and Plan: hematuria prior work up consistent with chronic disease and chronic kidney disease transfusion support PRN Thank you for this interesting consult. Status: Acute Priority: High
[2017-03-08] MEDS: Sodium Chloride 0.9% 1,000 ML IV SCH ×2 (15:44→15:45)
[2017-03-09 07:12] LABS: BASO % 0.2 % (0.0-2.0); HEMATOCRIT 24.7 % (35.0-51.0); LYMPH # 0.8 K/uL (1.0-4.3); LYMPH % 11.3 % (20.0-40.0); MEAN CORPUSCULAR HEMOGLOBIN 30.9 pg (27.0-31.0); MEAN CORPUSCULAR HGB CONC 34.3 g/dL (33.0-37.0); MEAN PLATELET VOLUME 7.5 fl (7.2-11.7); MONO # 0.5 K/uL (0.0-0.8); MONO % 6.8 % (0.0-10.0); NEUT # 5.5 K/uL (1.8-7.0); NEUT % 81.7 % (50.0-75.0); RED CELL DISTRIBUTION WIDTH 15.4 % (11.5-14.5); WHITE BLOOD COUNT 6.7 K/uL (4.8-10.8)
[2017-03-09 07:34] LABS: CALCIUM 7.6 mg/dL (8.4-10.2); POTASSIUM 5.2 MMOL/L (3.6-5.0)
[2017-03-09] MEDS: Pyridoxine 100 mg Tab PO SCH ×2 (08:37→10:22)
--- NOTE | 2017-03-09 08:52 | CP.PCM.PN ---
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 Worsening kidney function despite direct clinically doing better Patient was given Cytoxan approximately 3 weeks ago If kidney function continued to rise by tomorrow we will give the dose of Cytoxan perhaps tomorrow instead of next week. Objective - Vital Signs/Intake and Output Vital Signs (last 24 hours): Temp Pulse Resp BP Pulse Ox 98.9 F 86 18 158/86 H 96 03/09/17 08:14 03/09/17 08:31 03/09/17 08:14 03/09/17 08:31 03/09/17 08:14 Intake and Output: 03/09/17 03/09/17 06:59 18:59 Output Total 100 Balance -100 - Medications Medications: Current Medications Citalopram Hydrobromide (Celexa) 20 mg PO DAILY [facility]S [facility] Last Admin: 03/09/17 08:29 Dose: 20 mg Clonidine HCl (Catapres) 0.3 mg PO BID [facility] 234 BEDS AT [facility] Last Admin: 03/09/17 08:28 Dose: 0.3 mg Furosemide (Lasix) 40 mg PO BID [facility] 234 BEDS AT [facility] Heparin Sodium (Porcine) (Heparin) 5,000 units SC Q12 ZORAIDA PRN Reason: Protocol Last Admin: 03/09/17 08:29 Dose: 5,000 units Hydralazine HCl (Apresoline) 20 mg PO Q8H [facility]S [facility]CLUDE 234 BEDS AT [facility] Sodium Chloride (Sodium Chloride 0.9%) 1,000 mls @ 60 mls/hr IV .[id number] [facility]S [facility] 234 BEDS AT [facility] Stop: 03/09/17 15:22 Last Admin: 03/08/17 15:45 Dose: 60 mls/hr Ketorolac Tromethamine (Toradol) 15 mg IVP Q12 PRN PRN Reason: Pain, moderate (4-7) Last Admin: 03/07/17 16:04 Dose: 15 mg Labetalol HCl (Trandate) 200 mg PO BID [facility] 234 BEDS [facility] Last Admin: 03/09/17 08:31 Dose: 200 mg Lactic Acid (Lac-Hydrin 12% Lotion (225 G)) 1 applic TOP DAILY [facility] 234 B[facility]S AT [facility] Last Admin: 03/09/17 08:30 Dose: 1 applic Pantoprazole Sodium (Protonix Inj) 40 mg IVP DAILY [facility] 234 BEDS AT [facility] Last Admin: 03/09/17 08:31 Dose: 40 mg Prednisone (Prednisone Tab) 10 mg PO DAILY [facility] 234 B[facility]S [facility] Last Admin: 03/09/17 08:30 Dose: 10 mg Pyridoxine HCl (Vitamin B6) 100 mg PO DAILY [facility] 234 BEDS AT [facility] Last Admin: 03/09/17 08:37 Dose: Not Given - Labs Labs: 03/09/17 05:40 03/09/17 05:40 PT 13.2 SECONDS (9.6-11.2) H 03/07/17 07:50 INR 1.27 (0.92-1.08) H 03/07/17 07:50 APTT 27.4 SECONDS (23.3-32.5) 03/06/17 18:30
[2017-03-09] MEDS ORDERED: Pyridoxine 100 mg Tab PO SCH (09:00)
--- NOTE | 2017-03-09 09:03 | CP.PCM.PN ---
Subjective - Date & Time of Evaluation Date of Evaluation: 03/09/17 Time of Evaluation: 07:00 - Subjective Subjective: Patient was seen and examined at bedside this morning. Patient feels better than yesterday. Denies nausea, vomiting, abdominal pain or other complains at this evaluation. Reports he is voiding well, but has not had a bowel movement since admission. Objective - Vital Signs/Intake and Output Vital Signs (last 24 hours): Temp Pulse Resp BP Pulse Ox 98.9 F 86 18 158/86 H 96 03/09/17 08:14 03/09/17 08:31 03/09/17 08:14 03/09/17 08:31 03/09/17 08:14 Intake and Output: 03/09/17 03/09/17 06:59 18:59 Output Total 100 Balance -100 - Medications Medications: Current Medications Citalopram Hydrobromide (Celexa) 20 mg PO DAILY [facility] Last Admin: 03/09/17 08:29 Dose: 20 mg Clonidine HCl (Catapres) 0.3 mg PO BID [facility] Last Admin: 03/09/17 08:28 Dose: 0.3 mg Furosemide (Lasix) 40 mg PO BID [facility] Heparin Sodium (Porcine) (Heparin) 5,000 units SC Q12 [facility] PRN Reason: Protocol Last Admin: 03/09/17 08:29 Dose: 5,000 units Hydralazine HCl (Apresoline) 20 mg PO Q8H [facility] Sodium Chloride (Sodium Chloride 0.9%) 1,000 mls @ 60 mls/hr IV .[id number] [facility] Stop: 03/09/17 15:22 Last Admin: 03/08/17 15:45 Dose: 60 mls/hr Ketorolac Tromethamine (Toradol) 15 mg IVP Q12 PRN PRN Reason: Pain, moderate (4-7) Last Admin: 03/07/17 16:04 Dose: 15 mg Labetalol HCl (Trandate) 200 mg PO BID [facility] Last Admin: 03/09/17 08:31 Dose: 200 mg Lactic Acid (Lac-Hydrin 12% Lotion (225 G)) 1 applic TOP DAILY [facility] Last Admin: 03/09/17 08:30 Dose: 1 applic Pantoprazole Sodium (Protonix Inj) 40 mg IVP DAILY [facility] Last Admin: 03/09/17 08:31 Dose: 40 mg Prednisone (Prednisone Tab) 10 mg PO DAILY [facility] Last Admin: 03/09/17 08:30 Dose: 10 mg Pyridoxine HCl (Vitamin B6) 100 mg PO DAILY [facility] Last Admin: 03/09/17 08:37 Dose: Not Given - Labs Labs: 03/09/17 05:40 03/09/17 05:40 PT 13.2 SECONDS (9.6-11.2) H 03/07/17 07:50 INR 1.27 (0.92-1.08) H 03/07/17 07:50 APTT 27.4 SECONDS (23.3-32.5) 03/06/17 18:30 - Constitutional Appears: Non-toxic, No Acute Distress - Eye Exam Eye Exam: Normal appearance - ENT Exam ENT Exam: Mucous Membranes Moist - Respiratory Exam Respiratory Exam: Rales (fine rales to auscultation in middle and lower left lung field, right lung clear to auscultation), NORMAL BREATHING PATTERN. absent : Rhonchi, Wheezes - Cardiovascular Exam Cardiovascular Exam: REGULAR RHYTHM, +S1, +S2 - GI/Abdominal Exam GI & Abdominal Exam: Soft, Normal Bowel Sounds (Protuberant, but no rigidity or guarding noted). absent: Tenderness - Extremities Exam Extremities Exam: Pedal Edema Additional comments: Bilateral pitting 2+ edema of lower extremities below knees, improved from previous exam - Neurological Exam Neurological Exam: Alert, Awake, Oriented x3 - Psychiatric Exam Psychiatric exam: Normal Affect, Normal Mood - Skin Skin Exam: Dry, Intact, Pallor Assessment and Plan - Assessment and Plan (Free Text) Assessment: 67 yo homeless M w PMHx of ANCA Vasculitis, DVT of RUE, CKD, HTN, etoh abuse, COPD, and CHF who was admitted to rule out ACS, PO intolerance likely related to a viral gastroenteritis, now with worsening kidney function. Plan: Plan: 1) Nausea, vomiting, diarrheas and abdominal pain most likely due to a viral gastroenteritis -resolving, afebrile, denies symptoms at this time -Advance tolerating [place] diet, assess diet tolerance and advance -IV fluids @ 60 ml/hr as per Nephrology recommendations,f/u Nephrology recommendations -CT abdomen at ED showed : Mural thickening with mild dilatation within multiple loops of small bowel without surrounding inflammation or fluid to confirm an enteritis. Small left-sided pleural effusion with adjacent compressive atelectasis. Scattered diverticulosis, without diverticulitis. 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 Nephrology consult recommendations. Dr Sandoval suggested to continue gentle hydration perhaps 60 mL/h for the next 24 hours and GI evaluation. Keep monitor kidney function. As per Dr. Sandoval patient was given Cytoxan approximately 3 weeks ago.Recommendations are: If kidney function continued to rise by tomorrow we will give the dose of Cytoxan perhaps tomorrow instead of next week. -Repeat BUN/Creatinine trending up 84/5.4 -BUN/creatinine at ED was :74/4.4 -Prednisone 10 mg PO daily -BMP today showed a K+ 5.2, patient asymptomatic -EKG stat ordered, f/u results -Repeat potassium at 2 pm. f/u results -Kayexalate 15 mg PO once 3)Chest pain, most likely due to GERD -Resolved -EKG at ED showed no acute ST/T wave changes -Repeat EKG on 03/08/17 showed NSR -Troponin x 3: first two WNL, #3 was indeterminate:<0.05, repeat troponin on 03/09 was WNL -Protonix 40 mg PO daily 4) Leucopenia with persistent anemia. -Anemia could be related to CKD, and vasculitis but active bleeding can not be r /o -Jluis/Onc consult appreciated. Leucopenia likely benign -F/U FOBT -F/U Fugitell test -F/U temperature, if decrease, then consider ID consult 5)Congestive Heart Failure -Improving at physical exam -Pro-BNP on 03/07/17 was 4410, but stable from previous baseline -Continue Furosemide 40 mg PO BID 6) HTN most likely secondary to CKD -Hydralazine 20 mg PO TID -Labetalol 200 mg PO BID -Continue monitoring 7)DVT prophylaxis -SCDs -Heparin 5000 units BID SC -No Lovenox due to impaired renal function -Hold Walfarin PO 8) Latent TB -Positive QFT on 12/2016 -Isoniazid 300 mg daily -Patient reports he has not been complaint with TB treatment -Hold Isoniazid 9)H/O Reactive FTA-ABS -Asymptomatic at this time -F/U T. Pallidum antibodies titer ordered on 03/07/17.Pending
[2017-03-09] MEDS ORDERED: Sod Polystyrene Sulf 15 gm/60 ml Oral Susp PO ONE (09:45)
--- NOTE | 2017-03-09 15:49 | CT ---
PROCEDURE: CT Chest without contrast HISTORY: crackles on left lower lobe COMPARISON: Comparison is made to the previous study dated 01/31/2017 TECHNIQUE: Contiguous axial images were obtained through the chest without intravenous contrast enhancement. Sagittal and coronal reconstructions were performed. Radiation dose (DLP): 525.03 mGy-cm. This CT exam was performed using one or more of the following dose reduction techniques: Automated exposure control, adjustment of the mA and/or kV according to patient size, and/or use of iterative reconstruction technique. FINDINGS: LUNGS: Interval significant improvement in the previously seen right upper lobe opacities and infiltrate since the previous exam. Mild central bronchiectasis is seen at the right lung upper lobe. Interval appearance of small opacity at the lingula. Otherwise no significant interval change in the lungs. MEDIASTINUM: Unremarkable thoracic aorta. No aneurysm. [id number] cardiomegaly. Main pulmonary artery unremarkable. No vascular congestion. Slightly prominent lymph nodes are again seen. PLEURA: Moderate bilateral pleural effusions are again seen. The pleural effusions are slightly smaller compared to the previous exam. BONES: No fracture. No destructive lesion. UPPER ABDOMEN: No evidence of acute pathology. OTHER FINDINGS: None. IMPRESSION: Interval improvement in the right upper lobe opacities and infiltrates in the previous exam. Interval appearance of small infiltrate at the lingula since the previous study. Interval slight decrease in the size of the bilateral moderate pleural effusions since the previous study. Otherwise no significant interval change.
[2017-03-09] MEDS: Sodium Chloride 0.9% 1,000 ML IV SCH (17:07)
--- NOTE | 2017-03-10 08:43 | CARD ---
APPROVED REPORT EKG Measurement Heart [id number] [place] [id number] <Conclusion> Normal sinus rhythm Prolonged QT Abnormal ECG
[2017-03-10 09:43] LABS: HEMATOCRIT 24.8 % (35.0-51.0); MEAN CELL VOLUME 90.4 fl (80.0-94.0); MEAN CORPUSCULAR HEMOGLOBIN 30.7 pg (27.0-31.0); MEAN CORPUSCULAR HGB CONC 33.9 g/dL (33.0-37.0); RED CELL DISTRIBUTION WIDTH 15.5 % (11.5-14.5); WHITE BLOOD COUNT 7.1 K/uL (4.8-10.8)
[2017-03-10] MEDS: Pyridoxine 100 mg Tab PO SCH (09:44)
--- NOTE | 2017-03-10 09:57 | CP.PCM.PN ---
Subjective - Date & Time of Evaluation Date of Evaluation: 03/10/17 Time of Evaluation: 07:40 - Subjective Subjective: Patient was seen and examined at bedside this morning. Patient reports white sputum production since yesterday, denies blood in it. Denies chest pain, nausea , vomiting, abdominal pain, diarrheas or other complains at this evaluation. Objective - Vital Signs/Intake and Output Vital Signs (last 24 hours): Temp Pulse Resp BP Pulse Ox 97.8 F 80 18 150/85 95 03/10/17 08:09 03/10/17 08:09 03/10/17 08:09 03/10/17 08:09 03/10/17 08:09 - Medications Medications: Current Medications Citalopram Hydrobromide (Celexa) 20 mg PO DAILY [facility] Last Admin: 03/09/17 08:29 Dose: 20 mg Clonidine HCl (Catapres) 0.3 mg PO BID [facility] Last Admin: 03/09/17 17:02 Dose: 0.3 mg Furosemide (Lasix) 40 mg PO BID [facility] Last Admin: 03/09/17 17:03 Dose: 40 mg Heparin Sodium (Porcine) (Heparin) 5,000 units SC Q12 [facility] PRN Reason: Protocol Last Admin: 03/09/17 21:47 Dose: 5,000 units Hydralazine HCl (Apresoline) 20 mg PO Q8H [facility] Last Admin: 03/10/17 02:00 Dose: Not Given Ketorolac Tromethamine (Toradol) 15 mg IVP Q12 PRN PRN Reason: Pain, moderate (4-7) Last Admin: 03/07/17 16:04 Dose: 15 mg Labetalol HCl (Trandate) 200 mg PO BID [facility] Last Admin: 03/09/17 17:03 Dose: 200 mg Lactic Acid (Lac-Hydrin 12% Lotion (225 G)) 1 applic TOP DAILY [facility] Last Admin: 03/09/17 08:30 Dose: 1 applic Metronidazole (Flagyl) 500 mg PO Q8 [facility] Pantoprazole Sodium (Protonix Inj) 40 mg IVP DAILY [facility] Last Admin: 03/09/17 08:31 Dose: 40 mg Prednisone (Prednisone Tab) 10 mg PO DAILY [facility] Last Admin: 03/09/17 08:30 Dose: 10 mg Pyridoxine HCl (Vitamin B6) 100 mg PO DAILY [facility] Last Admin: 03/09/17 10:22 Dose: 100 mg - Labs Labs: 03/09/17 05:40 03/09/17 10:30 PT 13.2 SECONDS (9.6-11.2) H 03/07/17 07:50 INR 1.27 (0.92-1.08) H 03/07/17 07:50 APTT 27.4 SECONDS (23.3-32.5) 03/06/17 18:30 - Constitutional Appears: Non-toxic, No Acute Distress - Eye Exam Eye Exam: Normal appearance - ENT Exam ENT Exam: Mucous Membranes Moist - Respiratory Exam Respiratory Exam: Rales (fine rales to auscultation of middle and lower lobes on left lung field), NORMAL BREATHING PATTERN - Cardiovascular Exam Cardiovascular Exam: REGULAR RHYTHM, +S1, +S2 - GI/Abdominal Exam GI & Abdominal Exam: Soft, Normal Bowel Sounds. absent: Guarding, Rigid, Tenderness, Rebound Additional comments: Protuberant - Extremities Exam Additional comments: Bilateral lower extremities edema pitting 2+, DP and PT pulses diminished bilateral. Radial pulses present and bilateral. - Neurological Exam Neurological Exam: Alert, Awake, Oriented x3 - Psychiatric Exam Psychiatric exam: Normal Affect, Normal Mood - Skin Skin Exam: Dry, Intact, Normal Color Assessment and Plan - Assessment and Plan (Free Text) Assessment: 67 yo homeless M w PMHx of ANCA Vasculitis, DVT of RUE, CKD, HTN, etoh abuse, COPD, and CHF who was admitted to rule out ACS, PO intolerance likely related to a viral gastroenteritis that is improving, now with worsening kidney function. Plan: Plan: 1) CKD most likely secondary to ANCA vasculitis, with associated dehydration -Nephrology consult appreciated. Nephrology consult recommendations. Dr Sandoval suggested to continue gentle hydration perhaps 60 mL/h for the next 24 hours and GI evaluation. Keep monitor kidney function. As per Dr. Sandoval patient was given Cytoxan approximately 3 weeks ago.Recommendations are: If kidney function continued to rise by tomorrow we will give the dose of Cytoxan perhaps today instead of next week. F/u Grill Cook recommendations -Repeat BUN/Creatinine stable: 83/4.8 -BUN/creatinine at ED was :74/4.4 -Prednisone 10 mg PO daily -BMP today showed a K+ 4.1/WNL -EKG stat showed persistent QT prolongation seen in previous EKG -s/p Kayexalate 15 mg PO once 2)Nausea, vomiting, diarrheas and abdominal pain most likely due to a viral gastroenteritis -resolving, afebrile, denies symptoms at this time -Renal diet, tolerating PO. IV fluids discontinued -C-diff toxin positive: Start Flagyl 500 mg TID PO -Blood culture showed no growth after 3 days -CT abdomen at ED showed : Mural thickening with mild dilatation within multiple loops of small bowel without surrounding inflammation or fluid to confirm an enteritis. Small left-sided pleural effusion with adjacent compressive atelectasis. Scattered diverticulosis, without diverticulitis. -Lipase at ED was WNL/135 3)Chest pain, most likely due to GERD -Resolved -EKG at ED showed no acute ST/T wave changes -Repeat EKG on 03/08/17 showed NSR -Troponin x 3: first two WNL, #3 was indeterminate:<0.05, repeat troponin on 03/09 was WNL -Protonix 40 mg PO daily 4) Leucopenia with persistent anemia. -Anemia could be related to CKD, and vasculitis but active bleeding can not be r /o -Jluis/Onc consult appreciated. Leucopenia likely benign -F/U FOBT -F/U Fugitell test -F/U temperature, if decrease, then consider ID consult 5)Congestive Heart Failure -Improving at physical exam -Pro-BNP on 03/07/17 was 4410, but stable from previous baseline -Continue Furosemide 40 mg PO BID 6) HTN most likely secondary to CKD -Hydralazine 20 mg PO TID -Labetalol 200 mg PO BID -Continue monitoring 7)DVT prophylaxis -SCDs -Heparin 5000 units BID SC -No Lovenox due to impaired renal function -Hold Walfarin PO 8) Latent TB -Positive QFT on 12/2016 -Isoniazid 300 mg daily -Hold Isoniazid. There is a possibility that Isoniazid was stopped by TB center. But we need confirmation. 9)H/O Reactive FTA-ABS -Asymptomatic at this time -F/U T. Pallidum antibodies titer ordered on 03/07/17.Pending
[2017-03-10 10:05] LABS: CALCIUM 7.1 mg/dL (8.4-10.2); POTASSIUM 4.1 MMOL/L (3.6-5.0)
--- NOTE | 2017-03-10 10:58 | CP.PCM.PN ---
Subjective - Date & Time of Evaluation Date of Evaluation: 03/08/17 Time of Evaluation: 11:00 - Subjective Subjective: No SOB Objective - Vital Signs/Intake and Output Vital Signs (last 24 hours): Temp Pulse Resp BP Pulse Ox 97.8 F 80 18 150/85 95 03/10/17 08:09 03/10/17 09:46 03/10/17 08:09 03/10/17 09:46 03/10/17 08:09 - Medications Medications: Current Medications Citalopram Hydrobromide (Celexa) 20 mg PO DAILY [facility] Last Admin: 03/10/17 09:44 Dose: 20 mg Clonidine HCl (Catapres) 0.3 mg PO BID [facility] Last Admin: 03/10/17 09:46 Dose: 0.3 mg Furosemide (Lasix) 40 mg PO BID [facility] Last Admin: 03/10/17 09:45 Dose: 40 mg Heparin Sodium (Porcine) (Heparin) 5,000 units SC Q12 [facility] PRN Reason: Protocol Last Admin: 03/10/17 09:44 Dose: 5,000 units Hydralazine HCl (Apresoline) 20 mg PO Q8H [facility] Last Admin: 03/10/17 09:45 Dose: 20 mg Ketorolac Tromethamine (Toradol) 15 mg IVP Q12 PRN PRN Reason: Pain, moderate (4-7) Last Admin: 03/07/17 16:04 Dose: 15 mg Labetalol HCl (Trandate) 200 mg PO BID [facility] Last Admin: 03/10/17 09:43 Dose: 200 mg Lactic Acid (Lac-Hydrin 12% Lotion (225 G)) 1 applic TOP DAILY [facility] Last Admin: 03/10/17 09:46 Dose: 1 applic Metronidazole (Flagyl) 500 mg PO Q8 [facility] Last Admin: 03/10/17 09:42 Dose: 500 mg Pantoprazole Sodium (Protonix Inj) 40 mg IVP DAILY [facility] Last Admin: 03/10/17 09:47 Dose: 40 mg Prednisone (Prednisone Tab) 10 mg PO DAILY [facility] Last Admin: 03/10/17 09:46 Dose: 10 mg Pyridoxine HCl (Vitamin B6) 100 mg PO DAILY [facility] Last Admin: 03/10/17 09:44 Dose: 100 mg - Labs Labs: 03/10/17 09:00 03/10/17 09:00 PT 13.2 SECONDS (9.6-11.2) H 03/07/17 07:50 INR 1.27 (0.92-1.08) H 03/07/17 07:50 APTT 27.4 SECONDS (23.3-32.5) 03/06/17 18:30 - Respiratory Exam Additional comments: Lungs clear - Cardiovascular Exam Cardiovascular Exam: REGULAR RHYTHM - Extremities Exam Additional comments: 1-2+ bipedal edema Assessment and Plan - Assessment and Plan (Free Text) Assessment: Pauci immune crescentic GN. Renal function is stable CHF HTN C.diff colitis Plan: Continue current MX Cytoxan when C. diff is resolved
[2017-03-10] MEDS: guaiFENesin 100 mg/5 ml Syrup UD PO PRN (23:00)
[2017-03-11 08:04] LABS: HEMATOCRIT 24.4 % (35.0-51.0); MEAN CORPUSCULAR HEMOGLOBIN 30.8 pg (27.0-31.0); MEAN CORPUSCULAR HGB CONC 34.3 g/dL (33.0-37.0); RED CELL DISTRIBUTION WIDTH 15.5 % (11.5-14.5); WHITE BLOOD COUNT 5.8 K/uL (4.8-10.8)
[2017-03-11 08:11] LABS: CALCIUM 6.9 mg/dL (8.4-10.2); POTASSIUM 4.2 MMOL/L (3.6-5.0)
--- NOTE | 2017-03-11 09:07 | CP.PCM.PN ---
Addendum entered and electronically signed by Ana Davison MD 03/11/17 18:42: Patient was noted to be tachycardic, EKG was ordered and HR was WNL, and did not show acute ST or T wave changes, similar findings seen in previous EKG. Consider H/H,and Type & Scree if patient is found to be persistently tachycardic. Consider PRBC transfusion as needed. Consider CT angio if Fever associated w/ tachycardia due to recent history of DVT. Original Note: Subjective - Date & Time of Evaluation Date of Evaluation: 03/11/17 Time of Evaluation: 08:15 - Subjective Subjective: 67 yo homeless M w PMHx of ANCA Vasculitis, DVT of RUE, CKD, HTN, etoh abuse, COPD, and CHF who was admitted with N/V/, PO intolerance, fever, abd pain, diarrhea, hematuria. Patient's GI symptoms have resolved, PO well tolerated. We are following impaired renal function secondary to chronic vasculitis , and recent complains of productive cough, SOB, and new infiltrate in left lung most likely evidence of pneumonia. Patient was seen and examined at bedside this morning. Patient was having his breakfast at the time of evaluation. Still reporting productive cough associated with white sputum, without blood in it, and a increased SOB from baseline. Denies chest pain, heartburn, nausea, vomiting, abdominal pain, diarrheas. Objective - Vital Signs/Intake and Output Vital Signs (last 24 hours): Temp Pulse Resp BP Pulse Ox 98.7 F 99 H 18 175/83 H 94 L 03/11/17 08:01 03/11/17 08:48 03/11/17 08:01 03/11/17 08:48 03/11/17 08:01 - Medications Medications: Current Medications Citalopram Hydrobromide (Celexa) 20 mg PO DAILY [facility] Last Admin: 03/11/17 08:48 Dose: 20 mg Clonidine HCl (Catapres) 0.3 mg PO BID [facility] Last Admin: 03/11/17 08:48 Dose: 0.3 mg Furosemide (Lasix) 40 mg PO BID [facility] Last Admin: 03/11/17 08:47 Dose: 40 mg Guaifenesin (Robitussin) 100 mg PO Q6 PRN PRN Reason: Cough Last Admin: 03/10/17 23:00 Dose: 100 mg Heparin Sodium (Porcine) (Heparin) 5,000 units SC Q12 [facility] PRN Reason: Protocol Last Admin: 03/11/17 08:46 Dose: 5,000 units Hydralazine HCl (Apresoline) 20 mg PO Q8H [facility] Last Admin: 03/11/17 00:48 Dose: 20 mg Ketorolac Tromethamine (Toradol) 15 mg IVP Q12 PRN PRN Reason: Pain, moderate (4-7) Last Admin: 03/07/17 16:04 Dose: 15 mg Labetalol HCl (Trandate) 200 mg PO BID [facility] Last Admin: 03/11/17 08:47 Dose: 200 mg Lactic Acid (Lac-Hydrin 12% Lotion (225 G)) 1 applic TOP DAILY [facility] Last Admin: 03/11/17 08:44 Dose: 1 applic Metronidazole (Flagyl) 500 mg PO Q8 [facility] Last Admin: 03/11/17 08:46 Dose: 500 mg Pantoprazole Sodium (Protonix Inj) 40 mg IVP DAILY [facility] Last Admin: 03/11/17 08:48 Dose: 40 mg Prednisone (Prednisone Tab) 10 mg PO DAILY [facility] Last Admin: 03/11/17 08:47 Dose: 10 mg Warfarin Sodium (Coumadin) 3 mg PO ONCE ONE PRN Reason: Protocol Stop: 03/10/17 15:38 - Labs Labs: 03/11/17 05:30 03/11/17 06:00 PT 11.7 SECONDS (9.6-11.2) H 03/11/17 05:30 INR 1.13 (0.92-1.08) H 03/11/17 05:30 APTT 27.4 SECONDS (23.3-32.5) 03/06/17 18:30 - Constitutional Appears: Non-toxic, No Acute Distress - Eye Exam Eye Exam: Normal appearance - ENT Exam ENT Exam: Mucous Membranes Moist - Respiratory Exam Respiratory Exam: Rales (Fine rales in left lower lobe, improving. Right lung fild clear to auscultation. ), NORMAL BREATHING PATTERN - Cardiovascular Exam Cardiovascular Exam: REGULAR RHYTHM, +S1, +S2 - GI/Abdominal Exam GI & Abdominal Exam: Soft, Normal Bowel Sounds. absent: Guarding, Rigid, Tenderness Additional comments: Protuberant - Extremities Exam Extremities Exam: absent: Calf Tenderness Additional comments: Bilateral lower extremities edema, pitting 2 +, below knees. Radial pulses present and bilateral. DP pulses diminished bilateral - Neurological Exam Neurological Exam: Alert, Awake, Oriented x3 - Psychiatric Exam Psychiatric exam: Normal Affect, Normal Mood - Skin Skin Exam: Dry, Intact, Normal Color Assessment and Plan - Assessment and Plan (Free Text) Assessment: 67 yo homeless M w PMHx of ANCA Vasculitis, DVT of RUE, CKD, HTN, etoh abuse, COPD, and CHF who was admitted to rule out ACS, PO intolerance likely related to a viral gastroenteritis that resolved, now with worsening kidney function most likely due to ANCA vasculitis, found C-diff toxin positive. Plan: 1)Cough Patient is complaining of 1 days productive cough associated with white sputum production, and increased baseline SOB -Chest CT scan showed small infiltrate at the lingula most likely due to a HCAP because patient recent hospitalization -Nephrology was consulted, Dr. Kapoor, and patient was placed in renal dose of antibiotics -Vancomycin 650 mg IV BID -Zosyn 2.25 mg IV TID -Start Duoneb Q 8 scheduled -f/u Vanco Trough on 03/13/17 -Nasal cannula 2 LPM -monitor respiratory status, O2 Sat, VS -ID consulted, Dr. Silver, because recurrent HCAP and treatment with different antibiotics. Waiting for Dr. Silver recommendations. -Pulmunology consulted, Dr. Pate on board. Agreed with current antibiotics , and will see patient today or tomorrow. 2) CKD most likely secondary to ANCA vasculitis, with associated dehydration -Nephrology consult appreciated. Nephrology consult recommendations. Dr Sandoval suggested to continue gentle hydration perhaps 60 mL/h for the next 24 hours and GI evaluation. Keep monitor kidney function. As per Dr. Sandoval patient was given Cytoxan approximately 3 weeks ago.Recommendations are: If kidney function continued to rise by tomorrow we will give the dose of Cytoxan perhaps today instead of next week. F/u Visual Manager recommendations -Repeat BUN/Creatinine still elevated but stable on 03/11/17:82/4.5 -BUN/creatinine at ED was :74/4.4 -Prednisone 10 mg PO daily -BMP today showed a K+ 4.1/WNL -EKG stat showed persistent QT prolongation seen in previous EKG -s/p Kayexalate 15 mg PO once -Renal diet, tolerating PO. IV fluids discontinued -F/U BMP, Albumin -F/U Creatinine clearance, 24 hours 2)C-diff toxin positive -Asymptomatic -Continue Flagyl 500 mg TID PO -Continue contact precautions 3) GERD -Asymptomatic -Protonix 40 mg PO daily 4)Chronic anemia most likely secondary to CKD -Resolved leucopenia -Stable, afebrile, no evidence of active bleeding -H/H on 03/11/17 stable, 8.3/24.4 -Jluis/Onc consult appreciated. Leucopenia likely benign, no intervention at this time. Recommended transfusion support PRN. -FOBT : negative -F/U Fugitell test -F/U temperature, if decrease, then consider ID consult -Blood culture showed no growth after 4 days -F/U CBC 5)Congestive Heart Failure -Improving at physical exam -Pro-BNP on 03/07/17 was 4410, but stable from previous baseline -Continue Furosemide 40 mg PO BID 6) HTN most likely secondary to CKD -Hydralazine 20 mg PO TID -Labetalol 200 mg PO BID -Continue monitoring 7)H/O DVT in RUE -I spoke with Dr. Bobo, and He is aware of patient previous DVT in RUE, Hematuria found in current admission. He recommended RUE dupplex venous ultrasound. If DVT treat with Heparin drip and warfarin 5 mg daily; if no DVT continue with prophylactic heparin. -Heparin prophylactic 5000 units BID SC -No Lovenox due to impaired renal function -Hold Walfarin PO 5 mg daily -PT/INR on 03/11/17: 11.7/1.13 -F/U Pt/INR -F/U RUE venous ultrasound ordered for 03/12/17 8) Latent TB -Positive QFT on 12/2016 -Isoniazid 300 mg daily -Hold Isoniazid. There is a possibility that Isoniazid was stopped by TB center. But we need confirmation. 9)H/O Reactive FTA-ABS -Asymptomatic at this time -F/U T. Pallidum antibodies titer ordered on 03/07/17.Pending
--- NOTE | 2017-03-11 10:43 | CP.PCM.PN ---
Subjective - Date & Time of Evaluation Date of Evaluation: 03/11/17 Time of Evaluation: 10:10 - Subjective Subjective: Feels better. No respiratory distress. Objective - Vital Signs/Intake and Output Vital Signs (last 24 hours): Temp Pulse Resp BP Pulse Ox 98.7 F 99 H 18 175/83 H 94 L 03/11/17 08:01 03/11/17 10:06 03/11/17 08:01 03/11/17 10:06 03/11/17 08:01 - Medications Medications: Current Medications Citalopram Hydrobromide (Celexa) 20 mg PO DAILY [facility] Last Admin: 03/11/17 08:48 Dose: 20 mg Clonidine HCl (Catapres) 0.3 mg PO BID [facility] Last Admin: 03/11/17 08:48 Dose: 0.3 mg Furosemide (Lasix) 40 mg PO BID [facility] Last Admin: 03/11/17 08:47 Dose: 40 mg Guaifenesin (Robitussin) 100 mg PO Q6 PRN PRN Reason: Cough Last Admin: 03/10/17 23:00 Dose: 100 mg Heparin Sodium (Porcine) (Heparin) 5,000 units SC Q12 [facility] PRN Reason: Protocol Last Admin: 03/11/17 08:46 Dose: 5,000 units Hydralazine HCl (Apresoline) 20 mg PO Q8H [facility] Last Admin: 03/11/17 10:06 Dose: 20 mg Ketorolac Tromethamine (Toradol) 15 mg IVP Q12 PRN PRN Reason: Pain, moderate (4-7) Last Admin: 03/07/17 16:04 Dose: 15 mg Labetalol HCl (Trandate) 200 mg PO BID [facility] Last Admin: 03/11/17 08:47 Dose: 200 mg Lactic Acid (Lac-Hydrin 12% Lotion (225 G)) 1 applic TOP DAILY [facility] Last Admin: 03/11/17 08:44 Dose: 1 applic Metronidazole (Flagyl) 500 mg PO Q8 [facility] Last Admin: 03/11/17 08:46 Dose: 500 mg Pantoprazole Sodium (Protonix Inj) 40 mg IVP DAILY [facility] Last Admin: 03/11/17 08:48 Dose: 40 mg Prednisone (Prednisone Tab) 10 mg PO DAILY [facility] Last Admin: 03/11/17 08:47 Dose: 10 mg - Labs Labs: 03/11/17 05:30 03/11/17 06:00 PT 11.7 SECONDS (9.6-11.2) H 03/11/17 05:30 INR 1.13 (0.92-1.08) H 03/11/17 05:30 APTT 27.4 SECONDS (23.3-32.5) 03/06/17 18:30 - Respiratory Exam Additional comments: B/L rhonchi - Cardiovascular Exam Cardiovascular Exam: REGULAR RHYTHM - Extremities Exam Additional comments: 1+ pitting edema of both LEs Assessment and Plan - Assessment and Plan (Free Text) Assessment: Pauci immune crescentic GN. Renal function is improving CHF stable but still has some pedal edema. On Lasix Pnueumonia Anemia C.diff colitis Plan: Continue to monitor renal function Due for second dose of Cytoxan. Will hold cytoxan untill C. diff infection is cleared C.diff test was performed on 03/09/17
[2017-03-11] MEDS: SODIUM CHLORIDE 0.9% IVPB SCH (13:23)
[2017-03-11] MEDS: VANCOMYCIN IVPB SCH (13:23)
--- NOTE | 2017-03-11 16:38 | US ---
PROCEDURE: Right Upper Extremity Venous Doppler HISTORY: h/o recent DVT in RUE COMPARISON: 02/10/2017 TECHNIQUE: Right upper extremity deep veins, including the lower internal jugular, subclavian, axillary and brachial veins, were evaluated flow, compressibility and respiratory phasicity. FINDINGS: Previously identified right PICC line has been removed. Previously identified echogenic thrombus anteriorly in the right axillary vein is not as well appreciated. Minor amount of anterior wall thickening is noted although the vessel is patent with normal compressibility. Right internal jugular vein and right subclavian vein are patent with normal compressibility and no thrombus. Right brachium vein is patent with normal compressibility. There is some mild wall thickening anteriorly in the region of the right basilic vein, decreased from prior study. Vessel compresses and has flow on the present study. Right brachium vein right cephalic vein are unremarkable. Right ulnar vein is also within normal limits as well as the right radial vein. IMPRESSION: Interval decrease in thrombus in the right axillary vein with some mild persistent wall thickening. Interval decrease in thrombophlebitis and echogenicity involving the right basilic vein with a mild amount of residual anterior wall thickening noted. The vessel is patent on the present study. No appreciable acute thrombus noted.
--- NOTE | 2017-03-11 18:46 | CP.PCM.CON ---
History of Present Illness - History of Present Illness History of Present Illness: CC: PNA. Pulmonary consult for a 67 y/o M with new onset of productive cough with tick scanty whitish sputum, non bloody, associated to SOB, chest congestion and worsening symptom of for 2 days with no relief. Aggravated factor: Hx of PPD (+ ) 15 yrs ago, never Tx with INH due to ETOH abuse, Patient AD on 03-09 with CC of abdominal pain ,fever , vomiting , diarrhea with improvement As per Pt; He was born in [facility], came to [facility] 32 yrs ago, 15 yrs ago for the work he had PPD + but was told could not take any medication 2nd to alcohol abuse. Pt said he stop drinking and smoking 1 yr ago. 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 Pt was admitted to [facility] [place] was on 02/24/17 for CHF Exacerbation, gross hematuria, discharged on 03/01/17, Pt did not f/u with PMD since discharged. Actually Pt is homeless, admitted to [facility], [facility] on 03/07/17 due to Abdominal pain, v/n, leg edema,gross hematuria 2nd to underlying vasculitis, burning sensation in chest, fever 100.1 CT Chest 03/09/17, reported improved infiltrate RUL, decreased b/l pleural effusion, new small infiltrate at the lingula. Pt denied: Fever, chills, dizziness, coughing with blood, CP, palpitations, abdominal pain, n/v/d, sick contact. PMHx: COPD, PNA, PPD (+), ANCA Vasculitis DVT RUE, CKD, HTN, CHF systolic, Seizure, Thrombocytopenia, O/A, Depression, Hx of Alcohol abuse and heavy smoker one yr ago. Ext U-S showed: wall thickening in the R axillary vein, R bacilic vein. No acute thrombus noted. Stool C Dif (pos) Review of Systems - Constitutional Constitutional: Fever (on date of admission) - EENT Eyes: Other (negative) Ears: Other (negative) Nose/Mouth/Throat: Other (negative) - Cardiovascular Cardiovascular: Rapid Heart Rate - Respiratory Respiratory: Cough, Dyspnea, Dyspnea on Exertion, Wheezing, Chest Congestion - Gastrointestinal Gastrointestinal: Other (negative) - Musculoskeletal Musculoskeletal: Arthralgias - Integumentary Integumentary: Other (negative) - Neurological Neurological: Other (negative) - Psychiatric Psychiatric: Anxiety, Depression - Endocrine Endocrine: Other (negative) - Hematologic/Lymphatic Hematologic: Other (anemia) Past Patient History - Infectious Disease Hx of Infectious Diseases: None - Past Medical History & Family History Past Medical History?: Yes Pertinent Family History: Unknown - Past Social History Smoking Status: Former Smoker (1 PPD one year ago.) Alcohol: Other (Alcohol abuse stopped one year ago.) Drugs: Denies Home Situation {Lives}: With Family - CARDIAC Hx Cardiac Disorders: Yes Hx Congestive Heart Failure: Yes Hx Hypertension: Yes - PULMONARY Hx Respiratory Disorders: Yes Hx Chronic Obstructive Pulmonary Disease (COPD): Yes Hx Pneumonia: Yes - NEUROLOGICAL Hx Neurological Disorder: Yes Hx Seizures: Yes - HEENT Hx HEENT Problems: No - RENAL Hx Chronic Kidney Disease: Yes - ENDOCRINE/METABOLIC Hx Endocrine Disorders: No - HEMATOLOGICAL/ONCOLOGICAL Hx Anemia: Yes Hx Human Immunodeficiency Virus (HIV): No - INTEGUMENTARY Hx Dermatological Problems: No - MUSCULOSKELETAL/RHEUMATOLOGICAL Hx Musculoskeletal Disorders: Yes Hx Arthritis: Yes Hx Falls: Yes - GASTROINTESTINAL Hx Gastrointestinal Disorders: Yes Hx Hemorrhoids: Yes - GENITOURINARY/GYNECOLOGICAL Hx Genitourinary Disorders: No - PSYCHIATRIC Hx Psychophysiologic Disorder: Yes Hx Anxiety: Yes Hx Depression: Yes Hx Substance Use: No - SURGICAL HISTORY Hx Coronary Stent: No - ANESTHESIA Hx Anesthesia: Yes Hx Anesthesia Reactions: No Meds Allergies/Adverse Reactions: Allergies Allergy/AdvReac Type Severity Reaction Status Date / Time sulfamethoxazole Allergy RASH Verified 03/06/17 17:55 [From ] trimethoprim [From ] Allergy RASH Verified 03/06/17 17:55 - Medications Medications: Current Medications Albuterol/Ipratropium (Duoneb 3 Mg/0.5 Mg (3 Ml) Ud) 3 ml INH RQ8 [facility] Citalopram Hydrobromide (Celexa) 20 mg PO DAILY [facility] Last Admin: 03/11/17 08:48 Dose: 20 mg Clonidine HCl (Catapres) 0.3 mg PO BID [facility] Last Admin: 03/11/17 17:19 Dose: 0.3 mg Furosemide (Lasix) 40 mg PO BID [facility] Last Admin: 03/11/17 17:17 Dose: 40 mg Guaifenesin (Robitussin) 100 mg PO Q6 PRN PRN Reason: Cough Last Admin: 03/10/17 23:00 Dose: 100 mg Heparin Sodium (Porcine) (Heparin) 5,000 units SC Q12 [facility] PRN Reason: Protocol Last Admin: 03/11/17 08:46 Dose: 5,000 units Hydralazine HCl (Apresoline) 20 mg PO Q8H [facility] Last Admin: 03/11/17 17:45 Dose: 20 mg Vancomycin HCl 650 mg/ Sodium (Chloride) 250 mls @ 250 mls/hr IVPB Q12H [facility] Last Admin: 03/11/17 13:23 Dose: 250 mls/hr Piperacillin Sod/Tazobactam (Sod 2.25 gm/ Sodium Chloride) 100 mls @ 100 mls/ hr IVPB Q8 [facility] Last Admin: 03/11/17 17:45 Dose: 100 mls/hr Ketorolac Tromethamine (Toradol) 15 mg IVP Q12 PRN PRN Reason: Pain, moderate (4-7) Last Admin: 03/07/17 16:04 Dose: 15 mg Labetalol HCl (Trandate) 200 mg PO BID [facility] Last Admin: 03/11/17 17:17 Dose: 200 mg Lactic Acid (Lac-Hydrin 12% Lotion (225 G)) 1 applic TOP DAILY [facility] Last Admin: 03/11/17 08:44 Dose: 1 applic Metronidazole (Flagyl) 500 mg PO Q8 [facility] Last Admin: 03/11/17 17:18 Dose: 500 mg Pantoprazole Sodium (Protonix Inj) 40 mg IVP DAILY [facility] Last Admin: 03/11/17 08:48 Dose: 40 mg Prednisone (Prednisone Tab) 10 mg PO DAILY [facility] Last Admin: 03/11/17 08:47 Dose: 10 mg Physical Exam - Constitutional Appears: No Acute Distress - Head Exam Head Exam: NORMAL INSPECTION - Eye Exam Eye Exam: PERRL - ENT Exam ENT Exam: Normal Oropharynx - Neck Exam Neck exam: Positive for: Normal Inspection - Respiratory Exam Respiratory Exam: Decreased Breath Sounds (at bases), Rhonchi (scattered), Wheezes (few) - Cardiovascular Exam Cardiovascular Exam: REGULAR RHYTHM, Systolic Murmur (1/6 LSB) - GI/Abdominal Exam GI & Abdominal Exam: Normal Bowel Sounds, Soft - Extremities Exam Additional comments: +3 Pitting edema L/E. - Back Exam Back exam: NORMAL INSPECTION - Neurological Exam Neurological exam: Alert, Oriented x3 Additional comments: no focal motor/sensory deficit - Psychiatric Exam Psychiatric exam: Depressed - Skin Skin Exam: Warm Results - Vital Signs Recent Vital Signs: Last Vital Signs Temp 97.3 F L 03/11/17 16:36 Pulse 85 03/11/17 17:45 Resp 20 03/11/17 16:36 BP 143/75 03/11/17 17:45 Pulse Ox 98 03/11/17 16:36 reviewed J.P. - Labs Result Diagrams: 03/14/17 06:15 03/14/17 06:15 Labs: Laboratory Results - last 24 hr 03/10/17 03/11/17 03/11/17 15:00 05:30 05:30 WBC 5.8 RBC 2.71 L Hgb 8.3 L Hct 24.4 L MCV 90.0 MCH 30.8 MCHC 34.3 RDW 15.5 H Plt Count 236 PT 11.7 H INR 1.13 H Sodium Potassium Chloride Carbon Dioxide Anion Gap BUN Creatinine Est GFR ( Amer) Est GFR (Non-Af Amer) Random Glucose Calcium Stool Occult Blood Negative 03/11/17 06:00 WBC RBC Hgb Hct MCV MCH MCHC RDW Plt Count PT INR Sodium 137 Potassium 4.2 Chloride 110 H Carbon Dioxide 18 L Anion Gap 13 BUN 82 H Creatinine 4.5 H Est GFR ( Amer) 16 Est GFR (Non-Af Amer) 13 Random Glucose 86 Calcium 6.9 L Stool Occult Blood reviewed J.P. - EKG Data EKG comments: Reviewed J.P. - Imaging and Cardiology CT scan - chest Status: Report reviewed by me (RachelP.) CT scan - abdomen Status: Report reviewed by me (RachelP.) CT scan - pelvis Status: Report reviewed by me (JEthanP.) Venous US Status: Report reviewed by me (RachelP.) Assessment & Plan - Assessment and Plan (Free Text) Assessment: L UL new infiltrate Acute high. Improved RUL infiltrate on CT chest 03/09. Pt has developed a new small infiltrate at the Lingula COPD Chronic high Plan: Pt had + PPD, not been Tx with due to Hx of alcohol abuse. Previous infiltrate RUL January improved, He has developed a new infiltrate at the Lingula, Patient is immunosuppressed treated with Cytoxan and Prednisone can not r/o active TB. To be in respiratory isolation, sputum AFB x 3, continue current abx coverage. - Date & Time Date: 03/11/17 Time: 18:00
--- NOTE | 2017-03-11 21:09 | CP.PCM.PN ---
Subjective - Date & Time of Evaluation Date of Evaluation: 03/11/17 Time of Evaluation: 18:15 - Subjective Subjective: No complaints. Objective - Vital Signs/Intake and Output Vital Signs (last 24 hours): Temp Pulse Resp BP Pulse Ox 98 F 73 18 140/68 98 03/11/17 20:01 03/11/17 20:01 03/11/17 20:01 03/11/17 20:01 03/11/17 20:01 - Medications Medications: Current Medications Albuterol/Ipratropium (Duoneb 3 Mg/0.5 Mg (3 Ml) Ud) 3 ml INH RQ8 [facility] Citalopram Hydrobromide (Celexa) 20 mg PO DAILY [facility] Last Admin: 03/11/17 08:48 Dose: 20 mg Clonidine HCl (Catapres) 0.3 mg PO BID [facility] Last Admin: 03/11/17 17:19 Dose: 0.3 mg Furosemide (Lasix) 40 mg PO BID [facility] Last Admin: 03/11/17 17:17 Dose: 40 mg Guaifenesin (Robitussin) 100 mg PO Q6 PRN PRN Reason: Cough Last Admin: 03/10/17 23:00 Dose: 100 mg Heparin Sodium (Porcine) (Heparin) 5,000 units SC Q12 [facility] PRN Reason: Protocol Last Admin: 03/11/17 08:46 Dose: 5,000 units Hydralazine HCl (Apresoline) 20 mg PO Q8H [facility] Last Admin: 03/11/17 17:45 Dose: 20 mg Vancomycin HCl 650 mg/ Sodium (Chloride) 250 mls @ 250 mls/hr IVPB Q12H [facility] Last Admin: 03/11/17 13:23 Dose: 250 mls/hr Piperacillin Sod/Tazobactam (Sod 2.25 gm/ Sodium Chloride) 100 mls @ 100 mls/ hr IVPB Q8 [facility] Last Admin: 03/11/17 17:45 Dose: 100 mls/hr Ketorolac Tromethamine (Toradol) 15 mg IVP Q12 PRN PRN Reason: Pain, moderate (4-7) Last Admin: 03/07/17 16:04 Dose: 15 mg Labetalol HCl (Trandate) 200 mg PO BID [facility] Last Admin: 03/11/17 17:17 Dose: 200 mg Lactic Acid (Lac-Hydrin 12% Lotion (225 G)) 1 applic TOP DAILY [facility] Last Admin: 03/11/17 08:44 Dose: 1 applic Metronidazole (Flagyl) 500 mg PO Q8 [facility] Last Admin: 03/11/17 17:18 Dose: 500 mg Pantoprazole Sodium (Protonix Inj) 40 mg IVP DAILY [facility] Last Admin: 03/11/17 08:48 Dose: 40 mg Prednisone (Prednisone Tab) 10 mg PO DAILY [facility] Last Admin: 03/11/17 08:47 Dose: 10 mg - Labs Labs: 03/11/17 05:30 03/11/17 06:00 PT 11.7 SECONDS (9.6-11.2) H 03/11/17 05:30 INR 1.13 (0.92-1.08) H 03/11/17 05:30 APTT 27.4 SECONDS (23.3-32.5) 03/06/17 18:30 - Head Exam Head Exam: ATRAUMATIC - Eye Exam Eye Exam: Normal appearance - ENT Exam ENT Exam: Mucous Membranes Dry - Respiratory Exam Respiratory Exam: NORMAL BREATHING PATTERN - Cardiovascular Exam Cardiovascular Exam: +S1, +S2 - GI/Abdominal Exam GI & Abdominal Exam: Normal Bowel Sounds - Extremities Exam Extremities Exam: Pedal Edema Assessment and Plan (1) Anemia Assessment & Plan: work up consistent with hypoproliferative erythroid response anemia of CKD and chronic disease FOBT negative consider erythropoietin to decreased transfusion dependence Status: Acute (2) DVT (deep venous thrombosis) Assessment & Plan: provoked from PICC line on prior admission repeat ultrasound; if residual thrombus then would recommend heparin drip fdc anticoagulation may be difficult and not safe if medical compliance and f/u remains an issue Status: Acute
[2017-03-12] MEDS: VANCOMYCIN IVPB SCH (00:08)
[2017-03-12] MEDS: SODIUM CHLORIDE 0.9% IVPB SCH (00:08)
[2017-03-12 06:58] LABS: MEAN CELL VOLUME 91.3 fl (80.0-94.0); MEAN CORPUSCULAR HEMOGLOBIN 30.6 pg (27.0-31.0); MEAN CORPUSCULAR HGB CONC 33.5 g/dL (33.0-37.0); RED CELL DISTRIBUTION WIDTH 15.4 % (11.5-14.5); WHITE BLOOD COUNT 5.8 K/uL (4.8-10.8)
[2017-03-12 07:17] LABS: CALCIUM 6.8 mg/dL (8.4-10.2); POTASSIUM 4.3 MMOL/L (3.6-5.0)
[2017-03-12] MEDS: Albuterol-Ipratrop 3 mg / 0.5 (3 ml) UD INH SCH ×4 (07:28→23:54)
--- NOTE | 2017-03-12 09:05 | CP.PCM.PN ---
Addendum entered and electronically signed by Tiffany Fajardo MD 03/12/17 14:02: Discuss result of right upper extermity u/s with Dr. Bobo, heme/onc. He recommends starting on heparin drip per nomogram and monitor H:H. Original Note: Subjective - Date & Time of Evaluation Date of Evaluation: 03/12/17 Time of Evaluation: 09:05 - Subjective Subjective: Pt being followed for HAP and C diff. No overnight event, afebrile. Patient states diarrhea has improved with 1 loos bowel movement a day and tolerating po well. He reports productive cough and SOB has improved also. Denies chest pain and palpitation. Denies fever, chill, nausea, vomiting, abdominal pain, blood in stool. Objective - Vital Signs/Intake and Output Vital Signs (last 24 hours): Temp Pulse Resp BP Pulse Ox 97.6 F 87 20 161/80 H 93 L 03/12/17 07:54 03/12/17 08:58 03/12/17 07:54 03/12/17 08:58 03/12/17 07:54 Intake and Output: 03/12/17 03/12/17 06:59 18:59 Intake Total 450 Output Total 800 Balance -350 - Medications Medications: Current Medications Albuterol/Ipratropium (Duoneb 3 Mg/0.5 Mg (3 Ml) Ud) 3 ml INH RQ8 [facility] Last Admin: 03/12/17 07:28 Dose: 3 ml Citalopram Hydrobromide (Celexa) 20 mg PO DAILY [facility] Last Admin: 03/12/17 08:57 Dose: 20 mg Clonidine HCl (Catapres) 0.3 mg PO BID [facility] Last Admin: 03/12/17 08:56 Dose: 0.3 mg Furosemide (Lasix) 40 mg PO BID [facility] Last Admin: 03/12/17 08:58 Dose: 40 mg Guaifenesin (Robitussin) 100 mg PO Q6 PRN PRN Reason: Cough Last Admin: 03/10/17 23:00 Dose: 100 mg Heparin Sodium (Porcine) (Heparin) 5,000 units SC Q12 [facility] PRN Reason: Protocol Last Admin: 03/12/17 08:57 Dose: 5,000 units Hydralazine HCl (Apresoline) 20 mg PO Q8H [facility] Last Admin: 03/12/17 08:56 Dose: 20 mg Vancomycin HCl 650 mg/ Sodium (Chloride) 250 mls @ 250 mls/hr IVPB Q12H [facility] Last Admin: 03/12/17 00:08 Dose: 250 mls/hr Piperacillin Sod/Tazobactam (Sod 2.25 gm/ Sodium Chloride) 100 mls @ 100 mls/ hr IVPB Q8 [facility] Last Admin: 03/12/17 08:59 Dose: 100 mls/hr Ketorolac Tromethamine (Toradol) 15 mg IVP Q12 PRN PRN Reason: Pain, moderate (4-7) Last Admin: 03/07/17 16:04 Dose: 15 mg Labetalol HCl (Trandate) 200 mg PO BID [facility] Last Admin: 03/12/17 08:58 Dose: 200 mg Lactic Acid (Lac-Hydrin 12% Lotion (225 G)) 1 applic TOP DAILY [facility] Last Admin: 03/12/17 08:57 Dose: 1 applic Metronidazole (Flagyl) 500 mg PO Q8 [facility] Last Admin: 03/12/17 01:00 Dose: 500 mg Pantoprazole Sodium (Protonix Inj) 40 mg IVP DAILY [facility] Last Admin: 03/12/17 08:58 Dose: 40 mg Prednisone (Prednisone Tab) 10 mg PO DAILY [facility] Last Admin: 03/12/17 08:58 Dose: 10 mg - Labs Labs: 03/12/17 05:15 03/12/17 05:15 PT 11.8 SECONDS (9.6-11.2) H 03/12/17 05:15 INR 1.13 (0.92-1.08) H 03/12/17 05:15 APTT 27.4 SECONDS (23.3-32.5) 03/06/17 18:30 - Additional Findings Additional findings: - Constitutional Appears: Non-toxic, No Acute Distress, Pleasant, Talking in full sentence - Eye Exam Eye Exam: Normal appearance - ENT Exam ENT Exam: Mucous Membranes Moist - Respiratory Exam Respiratory Exam: Fine rales in left lower lobe, improving since admission. NORMAL BREATHING PATTERN. - Cardiovascular Exam Cardiovascular Exam: REGULAR RHYTHM, +S1, +S2, no appreciable murmur, gallop, rub - GI/Abdominal Exam GI & Abdominal Exam: Soft, Normal Bowel Sounds. absent: Guarding, Rigid, Tenderness Additional comments: Protuberant - Extremities Exam Extremities Exam: absent: Calf Tenderness Additional comments: Bilateral lower extremities edema, pitting 2 +, below knees. Radial pulses present and bilateral. DP pulses +1 faint bilateral - Neurological Exam Neurological Exam: Alert, Awake, Oriented x3 - Psychiatric Exam Psychiatric exam: Normal Affect, Normal Mood - Skin Skin Exam: Dry, Intact, Normal Color Assessment and Plan - Assessment and Plan (Free Text) Assessment: 67 yo homeless M w PMHx of ANCA Vasculitis, Provoke DVT of RUE (01/2017), CKD, HTN, etoh abuse, COPD, and CHF who was admitted to rule out ACS. ACS ruled out but found to have C-diff toxin positive and Pneumonia. Plan: Hospital acquire Pneumonia -Pulmunology consult appreciated, Dr. Pate -ID consult appreciated, Dr. 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 Keep monitor kidney function. -BUN/creatinine stable at 79/4.3 -c/w Prednisone 10 mg PO daily -will consider starting cytoxan once c. diff infection resolve -F/U Creatinine clearance, 24 hours C-diff toxin positive -Asymptomatic -Continue Flagyl 500 mg TID PO day #2 (03/10) -Continue contact precautions H/O Provoke DVT in RUE -Jluis/Onc consult appreciated, Dr. Bobo -stable -repeat u/s right upper ex 03/11: interval decrease in thrombus, mild amount of residual anterior wall thickening, vessel is patent, no appreciable acute thrombus note -will hold heparin drip and c/w prophylactic Heparin 5000 units BID [facility] -Hold home medication Warfarin PO 5 mg daily secondary to hematuria -correction anticoagulation not recommend secondary to pt noncompliance Chronic anemia most likely secondary to CKD -Jluis/Onc consult appreciated, Dr. Bobo -no evidence of active bleeding, FOBT : negative -H/H stable, 8.02/28 -will consider erythropoietin to prevent transfusion Latent TB -Pulmunology consult appreciated, Dr. Pate -Positive QFT on 12/2016 -Isoniazid was stopped per TB center, awaiting confirmation -f/u sputum cx r/o active TB and c/w tb precaution per pulmonary H/O Reactive FTA-ABS -Asymptomatic at this time -F/U T. Pallidum antibodies titer ordered on 03/07/17.Pending Congestive Heart Failure -Improving at physical exam -Pro-BNP on 03/07/17 was 4410, but stable from previous baseline -Continue Furosemide 40 mg PO BID HTN most likely secondary to CKD -Hydralazine 20 mg PO TID -Labetalol 200 mg PO BID -Continue monitoring GERD -Asymptomatic -Protonix 40 mg PO daily
--- NOTE | 2017-03-12 13:24 | CP.PCM.CON ---
History of Present Illness - History of Present Illness History of Present Illness: 67 yo homeless M is admitted for c/o fever, vomiting, diarrhea, and a burning sensation in his chest that he has been experiencing for the past seven days. Also states gross hematuria ( due to underlying vasculitis). 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 h/o Alcohol abuse. denies drug use. Homeless FHx: denies Review of Systems - Constitutional Constitutional: As Per HPI - EENT Eyes: absent: As Per HPI, Blind Spots, Blurred Vision, Change in Vision, Decreased Night Vision, Diplopia, Discharge, Dry Eye, Exophthalmos, Floaters, Irritation, Itchy Eyes, Loss of Peripheral Vision, Pain, Photophobia, Requires Corrective Lenses, Sees Flashes, Spots in Vision, Tunnel Vision, Other Visual Disturbances, Loss of Vision, Other Ears: absent: As Per HPI, Decreased Hearing, Ear Discharge, Ear Pain, Tinnitus, Abnormal Hearing, Disequilibrium, Dizziness, Other Nose/Mouth/Throat: absent: As Per HPI, Epistaxis, Nasal Congestion, Nasal Discharge, Nasal Obstruction, Nasal Trauma, Nose Pain, Post Nasal Drip, Sinus Pain, Sinus Pressure, Bleeding Gums, Change in Voice, Dental Pain, Dry Mouth, Dysphagia, Halitosis, Hoarsness, Lip Swelling, Mouth Lesions, Mouth Pain, Odynophagia, Sore Throat, Throat Swelling, Tongue Swelling, Facial Pain, Neck Pain, Neck Mass, Other - Cardiovascular Cardiovascular: As Per HPI - Respiratory Respiratory: As Per HPI, Cough, Dyspnea. absent: Hemoptysis - Gastrointestinal Gastrointestinal: As Per HPI, Diarrhea - Genitourinary Genitourinary: As Per HPI, Hematuria - Musculoskeletal Musculoskeletal: absent: As Per HPI, Abnormal Gait, Arthralgias, Atrophy, Back Pain, Deformity, Joint Swelling, Limited Range of Motion, Loss of Height, Muscle Cramps, Muscle Weakness, Myalgias, Neck Pain, Numbness, Radiating Pain into Limb, Stiffness, Tingling, Other - Integumentary Integumentary: absent: As Per HPI, Acne, Alopecia, Bleeding Lesions, Change in Hair, Change in Nails, Change in Pigmentation, Changing Lesions, Dry Skin, Erythema, Furuncle, Hirsutism, Lesions, New Lesions, Non-Healing Lesions, Photosensitivity, Pruritus, Rash, Skin Pain, Skin Ulcer, Sores, Striae, Swelling , Unusual Bruising, Wounds, Jaundice, Other - Neurological Neurological: absent: As Per HPI, Abnormal Gait, Abnormal Hearing, Abnormal Movements, Abnormal Speech, Behavioral Changes, Burning Sensations, Confusion, Convulsions, Disequilibrium, Dizziness, Numbness, Focal Weakness, Frequent Falls , Headaches, Lack of Coordination, Loss of Vision, Memory Loss, Paresthesias, Radicular Pain, Restless Legs, Sensory Deficit, Syncope, Tingling, Tremor, Vertigo, Weakness, Other Visual Disturbances, Other - Psychiatric Psychiatric: absent: As Per HPI, Abnormal Sleep Pattern, Anhedonia, Anxiety, Auditory Hallucinations, Behavioral Changes, Change in Appetite, Change in Libido, Confusion, Depression, Difficulty Concentrating, Hallucinations, Homicidal Ideation, Hopelessness, Irritability, Memory Loss, Mood Swings, Panic Attacks, Paranoia, Suicidal Ideation, Visual Hallucinations, Tactile Hallucinations, Other - Endocrine Endocrine: absent: As Per HPI, Change in Body Appearance, Change in Libido, Cold Intolorance, Deepening of Voice, Excessive Sweating, Fatigue, Flushing, Heat Intolorance, Increase in Ring/Shoe/Hat Size, Palpitations, Polydipsia, Polyphagia, Polyuria, Other - Hematologic/Lymphatic Hematologic: absent: As Per HPI, Easy Bleeding, Easy Bruising, Lymphadenopathy, Other Past Patient History - Infectious Disease Hx of Infectious Diseases: None - Past Medical History & Family History Past Medical History?: Yes - Past Social History Smoking Status: Former Smoker (1 PPD one year ago.) Alcohol: Other (Alcohol abuse stopped one year ago.) Drugs: Denies Home Situation {Lives}: With Family - CARDIAC Hx Cardiac Disorders: Yes Hx Congestive Heart Failure: Yes Hx Hypertension: Yes - PULMONARY Hx Respiratory Disorders: Yes Hx Chronic Obstructive Pulmonary Disease (COPD): Yes Hx Pneumonia: Yes - NEUROLOGICAL Hx Neurological Disorder: Yes Hx Seizures: Yes - HEENT Hx HEENT Problems: No - RENAL Hx Chronic Kidney Disease: Yes - ENDOCRINE/METABOLIC Hx Endocrine Disorders: No - HEMATOLOGICAL/ONCOLOGICAL Hx Anemia: Yes Hx Human Immunodeficiency Virus (HIV): No - INTEGUMENTARY Hx Dermatological Problems: No - MUSCULOSKELETAL/RHEUMATOLOGICAL Hx Musculoskeletal Disorders: Yes Hx Arthritis: Yes Hx Falls: Yes - GASTROINTESTINAL Hx Gastrointestinal Disorders: Yes Hx Hemorrhoids: Yes - GENITOURINARY/GYNECOLOGICAL Hx Genitourinary Disorders: No - PSYCHIATRIC Hx Psychophysiologic Disorder: Yes Hx Anxiety: Yes Hx Depression: Yes Hx Substance Use: No - SURGICAL HISTORY Hx Coronary Stent: No - ANESTHESIA Hx Anesthesia: Yes Hx Anesthesia Reactions: No Meds Allergies/Adverse Reactions: Allergies Allergy/AdvReac Type Severity Reaction Status Date / Time sulfamethoxazole Allergy RASH Verified 03/06/17 17:55 [From ] trimethoprim [From ] Allergy RASH Verified 03/06/17 17:55 - Medications Medications: Current Medications Albuterol/Ipratropium (Duoneb 3 Mg/0.5 Mg (3 Ml) Ud) 3 ml INH RQ8 [facility] Last Admin: 03/12/17 07:28 Dose: 3 ml Citalopram Hydrobromide (Celexa) 20 mg PO DAILY [facility] Last Admin: 03/12/17 08:57 Dose: 20 mg Clonidine HCl (Catapres) 0.3 mg PO BID [facility] Last Admin: 03/12/17 08:56 Dose: 0.3 mg Furosemide (Lasix) 40 mg PO BID [facility] Last Admin: 03/12/17 08:58 Dose: 40 mg Guaifenesin (Robitussin) 100 mg PO Q6 PRN PRN Reason: Cough Last Admin: 03/10/17 23:00 Dose: 100 mg Heparin Sodium (Porcine) (Heparin) 5,000 units SC Q12 [facility]AIDA PRN Reason: Protocol Last Admin: 03/12/17 08:57 Dose: 5,000 units Hydralazine HCl (Apresoline) 20 mg PO Q8H [facility] Last Admin: 03/12/17 08:56 Dose: 20 mg Vancomycin HCl 650 mg/ Sodium (Chloride) 250 mls @ 250 mls/hr IVPB Q12H [facility] Last Admin: 03/12/17 00:08 Dose: 250 mls/hr Piperacillin Sod/Tazobactam (Sod 2.25 gm/ Sodium Chloride) 100 mls @ 100 mls/ hr IVPB Q8 [facility] Last Admin: 03/12/17 08:59 Dose: 100 mls/hr Ketorolac Tromethamine (Toradol) 15 mg IVP Q12 PRN PRN Reason: Pain, moderate (4-7) Last Admin: 03/07/17 16:04 Dose: 15 mg Labetalol HCl (Trandate) 200 mg PO BID [facility] Last Admin: 03/12/17 08:58 Dose: 200 mg Lactic Acid (Lac-Hydrin 12% Lotion (225 G)) 1 applic TOP DAILY [facility] Last Admin: 03/12/17 08:57 Dose: 1 applic Metronidazole (Flagyl) 500 mg PO Q8 [facility] Last Admin: 03/12/17 10:00 Dose: Not Given Pantoprazole Sodium (Protonix Inj) 40 mg IVP DAILY [facility] Last Admin: 03/12/17 08:58 Dose: 40 mg Prednisone (Prednisone Tab) 10 mg PO DAILY [facility] Last Admin: 03/12/17 08:58 Dose: 10 mg Physical Exam - Constitutional Appears: Non-toxic, Chronically Ill - Head Exam Head Exam: ATRAUMATIC, NORMAL INSPECTION, NORMOCEPHALIC - Eye Exam Eye Exam: PERRL. absent: Scleral icterus - ENT Exam ENT Exam: Mucous Membranes Dry, Normal External Ear Exam, Normal Oropharynx - Neck Exam Neck exam: Negative for: Lymphadenopathy, Thyromegaly - Respiratory Exam Respiratory Exam: Decreased Breath Sounds, Rhonchi - Cardiovascular Exam Cardiovascular Exam: Tachycardia, REGULAR RHYTHM, +S1, +S2 - GI/Abdominal Exam GI & Abdominal Exam: Diminished Bowel Sounds, Distended, Soft. absent: Guarding , Rebound, Rigid, Tenderness - Rectal Exam Rectal Exam: Deferred - Exam Exam: NORMAL INSPECTION - Extremities Exam Extremities exam: Positive for: pedal edema, pedal pulses present. Negative for : calf tenderness, tenderness - Back Exam Back exam: absent: CVA tenderness (L), CVA tenderness (R), paraspinal tenderness - Neurological Exam Neurological exam: Alert, CN II-XII Intact, Oriented x3, Reflexes Normal - Psychiatric Exam Psychiatric exam: Depressed - Skin Skin Exam: Dry Results - Vital Signs Recent Vital Signs: Last Vital Signs Temp 98.1 F 03/12/17 11:55 Pulse 113 H 05/07/17 11:55 Resp 20 03/12/17 11:55 BP 153/86 H 03/12/17 11:55 Pulse Ox 97 03/12/17 11:55 - Labs Result Diagrams: 03/12/17 05:15 03/12/17 05:15 Labs: Laboratory Results - last 24 hr 03/12/17 03/12/17 03/12/17 05:15 05:15 05:15 WBC 5.8 RBC 2.74 L Hgb 8.4 L Hct 25.0 L MCV 91.3 MCH 30.6 MCHC 33.5 RDW 15.4 H Plt Count 257 PT 11.8 H INR 1.13 H Sodium 139 Potassium 4.3 Chloride 110 H Carbon Dioxide 19 L Anion Gap 14 BUN 79 H Creatinine 4.3 H Est GFR ( Amer) 17 Est GFR (Non-Af Amer) 14 Random Glucose 79 Calcium 6.8 L Albumin 2.4 L Assessment & Plan (1) Acute on chronic renal failure Status: Acute (2) Chest pain Status: Acute (3) Leukopenia Status: Acute (4) Anemia Status: Acute Priority: High (5) CHF (congestive heart failure) Status: Acute (6) COPD (chronic obstructive pulmonary disease) with chronic bronchitis Status: Acute - Assessment and Plan (Free Text) Assessment: infiltrates of unclear etiology if cultures negativew consider d/c antibiotics recc PO vanco and IV Flagyl for c diff needs follow up in chest clinic
[2017-03-12] MEDS ORDERED: Sodium Chloride 3% for Inhalation 4 ML VIAL.NEB IH PRN (13:33)
--- NOTE | 2017-03-12 14:07 | CP.PCM.PN ---
Subjective - Date & Time of Evaluation Date of Evaluation: 03/12/17 Time of Evaluation: 02:15 - Subjective Subjective: No sob noted Pt states that he vomited today Objective - Vital Signs/Intake and Output Vital Signs (last 24 hours): Temp Pulse Resp BP Pulse Ox 98.1 F 113 H 20 153/86 H 97 03/12/17 11:55 03/12/17 11:55 03/12/17 11:55 03/12/17 11:55 03/12/17 11:55 Intake and Output: 03/12/17 03/12/17 06:59 18:59 Intake Total 450 Output Total 800 Balance -350 - Medications Medications: Current Medications Albuterol/Ipratropium (Duoneb 3 Mg/0.5 Mg (3 Ml) Ud) 3 ml INH RQ8 [facility] Last Admin: 03/12/17 07:28 Dose: 3 ml Citalopram Hydrobromide (Celexa) 20 mg PO DAILY [facility] Last Admin: 03/12/17 08:57 Dose: 20 mg Clonidine HCl (Catapres) 0.3 mg PO BID [facility] Last Admin: 03/12/17 08:56 Dose: 0.3 mg Furosemide (Lasix) 40 mg PO BID [facility] Last Admin: 03/12/17 08:58 Dose: 40 mg Guaifenesin (Robitussin) 100 mg PO Q6 PRN PRN Reason: Cough Last Admin: 03/10/17 23:00 Dose: 100 mg Hydralazine HCl (Apresoline) 20 mg PO Q8H [facility] Last Admin: 03/12/17 08:56 Dose: 20 mg Piperacillin Sod/Tazobactam (Sod 2.25 gm/ Sodium Chloride) 100 mls @ 100 mls/ hr IVPB Q8 [facility] Last Admin: 03/12/17 08:59 Dose: 100 mls/hr Metronidazole (Flagyl 500mg/100ml Ns) 100 mls @ 100 mls/hr IVPB Q8 [facility] Ketorolac Tromethamine (Toradol) 15 mg IVP Q12 PRN PRN Reason: Pain, moderate (4-7) Last Admin: 03/07/17 16:04 Dose: 15 mg Labetalol HCl (Trandate) 200 mg PO BID [facility] Last Admin: 03/12/17 08:58 Dose: 200 mg Lactic Acid (Lac-Hydrin 12% Lotion (225 G)) 1 applic TOP DAILY [facility] Last Admin: 03/12/17 08:57 Dose: 1 applic Pantoprazole Sodium (Protonix Inj) 40 mg IVP DAILY [facility] Last Admin: 03/12/17 08:58 Dose: 40 mg Prednisone (Prednisone Tab) 10 mg PO DAILY [facility] Last Admin: 03/12/17 08:58 Dose: 10 mg Vancomycin HCl (Vancocin (Oral/Rectal Use)) 250 mg PO Q8 [facility] - Labs Labs: 03/12/17 05:15 03/12/17 05:15 PT 11.8 SECONDS (9.6-11.2) H 03/12/17 05:15 INR 1.13 (0.92-1.08) H 03/12/17 05:15 APTT 27.4 SECONDS (23.3-32.5) 03/06/17 18:30 - Respiratory Exam Additional comments: Lungs clear - Cardiovascular Exam Cardiovascular Exam: REGULAR RHYTHM - Extremities Exam Additional comments: No chane Pitting edema persists Assessment and Plan - Assessment and Plan (Free Text) Assessment: Orescentic pauci immune GN ( vasculitis) Renal function is stable Pneumonia CHF C.diff colitis Plan: Continue to monitor renal function Monitor vanco peak & trough levels
[2017-03-12] MEDS ORDERED: Heparin 25,000units in D5W 250 ML IV SCH ×2 (14:15→18:00)
[2017-03-12] MEDS: metroNIDAZOLE 500mg/100ml NS 100 ML IVPB SCH (16:09)
[2017-03-12] MEDS: Vancomycin 500 mg (Oral/Rectal USE) PO SCH (16:13)
[2017-03-12] MEDS: guaiFENesin 100 mg/5 ml Syrup UD PO PRN ×2 (16:14→21:15)
--- NOTE | 2017-03-12 16:33 | CP.PCM.PN ---
Subjective - Date & Time of Evaluation Date of Evaluation: 03/12/17 Time of Evaluation: 13:00 - Subjective Subjective: F/U Infiltrate GREGORY Pt c/o of cough with white phlegms, chest congestion. Objective - Vital Signs/Intake and Output Vital Signs (last 24 hours): Temp Pulse Resp BP Pulse Ox 97.4 F L 81 20 147/70 96 03/12/17 15:47 03/12/17 16:14 03/12/17 15:47 03/12/17 16:14 03/12/17 15:47 Intake and Output: 03/12/17 03/12/17 06:59 18:59 Intake Total 450 Output Total 800 Balance -350 - Medications Medications: Current Medications Albuterol/Ipratropium (Duoneb 3 Mg/0.5 Mg (3 Ml) Ud) 3 ml INH RQ8 [facility] Last Admin: 03/12/17 16:01 Dose: 3 ml Citalopram Hydrobromide (Celexa) 20 mg PO DAILY [facility] Last Admin: 03/12/17 08:57 Dose: 20 mg Clonidine HCl (Catapres) 0.3 mg PO BID [facility] Last Admin: 03/12/17 16:13 Dose: 0.3 mg Furosemide (Lasix) 40 mg PO BID [facility] Last Admin: 03/12/17 16:13 Dose: 40 mg Guaifenesin (Robitussin) 100 mg PO Q6 PRN PRN Reason: Cough Last Admin: 03/12/17 16:14 Dose: 100 mg Hydralazine HCl (Apresoline) 20 mg PO Q8H [facility] Last Admin: 03/12/17 08:56 Dose: 20 mg Piperacillin Sod/Tazobactam (Sod 2.25 gm/ Sodium Chloride) 100 mls @ 100 mls/ hr IVPB Q8 [facility] Last Admin: 03/12/17 08:59 Dose: 100 mls/hr Metronidazole (Flagyl 500mg/100ml Ns) 100 mls @ 100 mls/hr IVPB Q8 [facility] Last Admin: 03/12/17 16:09 Dose: 100 mls/hr Heparin Sodium/Dextrose (Heparin 25,000 Units/250ml In D5w) 250 mls @ 15 mls/ hr IV .[id number] [facility]ORAIDA PRN Reason: Protocol Ketorolac Tromethamine (Toradol) 15 mg IVP Q12 PRN PRN Reason: Pain, moderate (4-7) Last Admin: 03/07/17 16:04 Dose: 15 mg Labetalol HCl (Trandate) 200 mg PO BID [facility] Last Admin: 03/12/17 16:14 Dose: 200 mg Lactic Acid (Lac-Hydrin 12% Lotion (225 G)) 1 applic TOP DAILY [facility] Last Admin: 03/12/17 08:57 Dose: 1 applic Pantoprazole Sodium (Protonix Inj) 40 mg IVP DAILY [facility] Last Admin: 03/12/17 08:58 Dose: 40 mg Prednisone (Prednisone Tab) 10 mg PO DAILY [facility] Last Admin: 03/12/17 08:58 Dose: 10 mg Vancomycin HCl (Vancocin (Oral/Rectal Use)) 250 mg PO Q8 [facility] Last Admin: 03/12/17 16:13 Dose: 250 mg - Labs Labs: 03/12/17 05:15 03/12/17 05:15 PT 11.8 SECONDS (9.6-11.2) H 03/12/17 05:15 INR 1.13 (0.92-1.08) H 03/12/17 05:15 APTT 28.9 SECONDS (23.3-32.5) 03/12/17 15:00 - Constitutional Appears: No Acute Distress - Head Exam Head Exam: NORMAL INSPECTION - Eye Exam Eye Exam: PERRL - ENT Exam ENT Exam: Normal Oropharynx - Neck Exam Neck Exam: Normal Inspection - Respiratory Exam Respiratory Exam: Decreased Breath Sounds (at bases), Rhonchi (b/l), Wheezes ( few scattered) - Cardiovascular Exam Cardiovascular Exam: REGULAR RHYTHM, Murmur (systolic 1/6 LSB) - GI/Abdominal Exam GI & Abdominal Exam: Soft, Normal Bowel Sounds - Extremities Exam Additional comments: +3 Pitting L/E - Back Exam Back Exam: NORMAL INSPECTION - Neurological Exam Neurological Exam: Alert, Oriented x3 - Psychiatric Exam Psychiatric exam: Depressed - Skin Skin Exam: Warm Assessment and Plan (1) Lung infiltrate on CT Assessment & Plan: Left lung. Status: Acute (2) COPD (chronic obstructive pulmonary disease) Status: Chronic - Assessment and Plan (Free Text) Plan: Continue respiratory isolation, f/u Sputum AFB, continue current abx coverage.
[2017-03-12] MEDS ORDERED: Heparin 25,000units in D5W 25,000 UNITS/250 ML BAG IV ONE (19:00)
[2017-03-13] MEDS: Vancomycin 500 mg (Oral/Rectal USE) PO SCH ×3 (00:42→17:13)
[2017-03-13] MEDS: metroNIDAZOLE 500mg/100ml NS 100 ML IVPB SCH ×3 (01:37→17:16)
[2017-03-13 07:17] LABS: HEMATOCRIT 29.3 % (35.0-51.0); MEAN CELL VOLUME 95.2 fl (80.0-94.0); MEAN CORPUSCULAR HEMOGLOBIN 30.3 pg (27.0-31.0); MEAN CORPUSCULAR HGB CONC 31.8 g/dL (33.0-37.0); WHITE BLOOD COUNT 8.4 K/uL (4.8-10.8)
[2017-03-13 07:35] LABS: PARTIAL THROMBOPLASTIN TIME 41.8 SECONDS (23.3-32.5)
[2017-03-13] MEDS: Albuterol-Ipratrop 3 mg / 0.5 (3 ml) UD INH SCH ×3 (08:03→23:56)
[2017-03-13 09:40] LABS: CALCIUM 6.9 mg/dL (8.4-10.2); POTASSIUM 4.2 MMOL/L (3.6-5.0)
--- NOTE | 2017-03-13 10:03 | CP.PCM.PN ---
Subjective - Date & Time of Evaluation Date of Evaluation: 03/13/17 Time of Evaluation: 07:10 - Subjective Subjective: 67 yo homeless M w PMHx of ANCA Vasculitis, DVT of RUE, CKD, HTN, etoh abuse, COPD, and CHF who was admitted with N/V/, PO intolerance, fever, abd pain, diarrhea, hematuria. Patient's GI symptoms have resolved, PO well tolerated. We are following impaired renal function secondary to chronic vasculitis , and recent complains of persistent SOB, and cough. Patient was seen and examined at bedside this morning. Patient still complaining of cough, but without sputum production. Patient still reporting SOB today. Patient is in continuous 2 LMP nasal cannula. Denies nausea, vomiting , and abdominal pain, but reports one large diarrhea this morning, without blood in it. Patient is voiding without any complains. Objective - Vital Signs/Intake and Output Vital Signs (last 24 hours): Temp Pulse Resp BP Pulse Ox 99.2 F 122 H 20 179/93 H 93 L 03/13/17 08:06 03/13/17 09:43 03/13/17 08:06 03/13/17 09:43 03/13/17 08:06 - Medications Medications: Current Medications Albuterol/Ipratropium (Duoneb 3 Mg/0.5 Mg (3 Ml) Ud) 3 ml INH RQ8 [facility] Last Admin: 03/13/17 08:03 Dose: 3 ml Citalopram Hydrobromide (Celexa) 20 mg PO DAILY [facility] Last Admin: 03/13/17 09:43 Dose: 20 mg Clonidine HCl (Catapres) 0.3 mg PO BID [facility] Last Admin: 03/13/17 09:43 Dose: 0.3 mg Furosemide (Lasix) 40 mg PO BID [facility] Last Admin: 03/13/17 09:42 Dose: 40 mg Guaifenesin (Robitussin) 100 mg PO Q6 PRN PRN Reason: Cough Last Admin: 03/12/17 21:15 Dose: 100 mg Hydralazine HCl (Apresoline) 20 mg PO Q8H [facility] Last Admin: 03/13/17 09:38 Dose: 20 mg Piperacillin Sod/Tazobactam (Sod 2.25 gm/ Sodium Chloride) 100 mls @ 100 mls/ hr IVPB Q8 [facility] Last Admin: 03/13/17 00:41 Dose: 100 mls/hr Metronidazole (Flagyl 500mg/100ml Ns) 100 mls @ 100 mls/hr IVPB Q8 [facility] Last Admin: 03/13/17 09:38 Dose: 100 mls/hr Heparin Sodium/Dextrose (Heparin 25,000 Units/250ml In D5w) 25,000 units in 250 mls @ 15 mls/hr IV .[id number] ONE Stop: 03/13/17 11:39 Last Admin: 03/12/17 21:07 Dose: 15 mls/hr Ketorolac Tromethamine (Toradol) 15 mg IVP Q12 PRN PRN Reason: Pain, moderate (4-7) Last Admin: 03/07/17 16:04 Dose: 15 mg Labetalol HCl (Trandate) 200 mg PO BID [facility] Last Admin: 03/13/17 09:40 Dose: 200 mg Lactic Acid (Lac-Hydrin 12% Lotion (225 G)) 1 applic TOP DAILY [facility] Last Admin: 03/13/17 09:42 Dose: 1 applic Pantoprazole Sodium (Protonix Inj) 40 mg IVP DAILY [facility] Last Admin: 03/13/17 09:44 Dose: 40 mg Prednisone (Prednisone Tab) 10 mg PO DAILY [facility] Last Admin: 03/13/17 09:44 Dose: 10 mg Vancomycin HCl (Vancocin (Oral/Rectal Use)) 250 mg PO Q8 [facility] Last Admin: 03/13/17 09:45 Dose: 250 mg - Labs Labs: 03/13/17 05:55 03/13/17 09:15 PT 12.1 SECONDS (9.6-11.2) H 03/13/17 05:15 INR 1.16 (0.92-1.08) H 03/13/17 05:15 APTT 41.8 SECONDS (23.3-32.5) H 03/13/17 05:15 - Constitutional Appears: Non-toxic, No Acute Distress - Eye Exam Eye Exam: Normal appearance - ENT Exam ENT Exam: Mucous Membranes Moist - Respiratory Exam Respiratory Exam: NORMAL BREATHING PATTERN Additional comments: fine left lower lobe crackles to auscultation, but improving from previous exam. Clear right lung field to auscultation. NC at 3 LPM. - Cardiovascular Exam Cardiovascular Exam: Tachycardia, REGULAR RHYTHM, +S1, +S2 - GI/Abdominal Exam GI & Abdominal Exam: Soft, Normal Bowel Sounds. absent: Tenderness Additional comments: Protuberant. - Extremities Exam Extremities Exam: absent: Calf Tenderness Additional comments: Bilateral pitting 2 + edema of lower extremities, improving from previous exam. - Neurological Exam Neurological Exam: Alert, Awake, Oriented x3 - Skin Skin Exam: Dry, Intact, Pallor Assessment and Plan - Assessment and Plan (Free Text) Assessment: 67 yo homeless M w PMHx of ANCA Vasculitis, DVT of RUE, CKD, HTN, etoh abuse, COPD, and CHF who was admitted to rule out ACS, PO intolerance likely related to a viral gastroenteritis that resolved, now with worsening kidney function most likely due to ANCA vasculitis, found to have C-diff toxin positive and Pneumonia. Plan: Hospital acquire Pneumonia -Pulmunology consult appreciated, Dr. Echols : wants to r/o active TB; respiratory isolation, sputum AFB x 3, continue current abx coverage -ID consult appreciated, Dr. Silver: Recommended PO Vanco, and IV Flagyl for C- diff. F/U in chest clinic( Flagyl was changed from PO to IV on 03/12/17)( Flagyl PO was started on 03/10/17) day #3 -Chest CT scan showed small infiltrate at the lingula most likely due to a HCAP (recent hospitalization 01/2017) -Now on Vancomycin 250 mg PO Q8 and Zosyn 2.25 mg IV TID renal dose (approved by Nephrology) day #3 ( started on 03/11/17) -c/w Duoneb Q 8 scheduled -c/w Oxygen 2 LPM in NC -f/u Vanco Trough on 03/13/17. Pendingbmp -f/u Fugitell test. Pending -f/u sputum for TB (history of la+ QFG, previously on INH). Pending CKD most likely secondary to ANCA vasculitis -Nephrology consult appreciated: Dr Sandoval and Dr. Kapoor on board - GI evaluation. Keep monitor kidney function. -BUN/creatinine stable at 73/4.2 -c/w Prednisone 10 mg PO daily -will consider starting cytoxan once c. diff infection resolve -Creatinine clearance, 24 hours: 12/low levels C-diff toxin positive -Asymptomatic -Changed to IV route as per ID recommendations, Flagyl 500 mg TID IV day #3 () -Continue contact precautions H/O Provoke DVT in RUE -Jluis/Onc consult appreciated, Dr. Bobo -stable -repeat u/s right upper ex /: interval decrease in thrombus, mild amount of residual anterior wall thickening, vessel is patent, no appreciable acute thrombus note -started Heparin drip on 03/12/17, bolus and infusion 15ml/hr, PTT 6 hours after was 41.8. As per DVT nomogram we continue with rebolus: 3360 units, and then infusion 16.5 ml/hr -Hold home medication Warfarin PO 5 mg daily because patient is in therapeutic treatment for DVT -fpc anticoagulation not recommend secondary to pt noncompliance Chronic anemia most likely secondary to CKD -Jluis/Onc consult appreciated, Dr. Bobo -no evidence of active bleeding, FOBT : negative -H/H stable, 9.3/29.3 -will consider erythropoietin to prevent transfusion Latent TB -Pulmunology consult appreciated, Dr. Pate -Positive QFT on 12/2016 -Isoniazid was stopped per TB center, awaiting confirmation -f/u sputum cx r/o active TB and c/w tb precaution per pulmonary H/O Reactive FTA-ABS -Asymptomatic at this time -F/U T. Pallidum antibodies titer ordered on 03/07/17.Pending Congestive Heart Failure -Improving at physical exam -Pro-BNP on 03/07/17 was 4410, but stable from previous baseline -Continue Furosemide 40 mg PO BID HTN most likely secondary to CKD -Hydralazine 20 mg PO TID -Labetalol 200 mg PO BID -Continue monitoring GERD -Asymptomatic -Protonix 40 mg PO daily
--- NOTE | 2017-03-13 11:16 | CP.PCM.PN ---
Subjective - Date & Time of Evaluation Date of Evaluation: 03/13/17 Time of Evaluation: 10:35 - Subjective Subjective: C/o diarrhea, fatigue Objective - Vital Signs/Intake and Output Vital Signs (last 24 hours): Temp Pulse Resp BP Pulse Ox 99.2 F 122 H 20 179/93 H 93 L 03/13/17 08:06 03/13/17 09:43 03/13/17 08:06 03/13/17 09:43 03/13/17 08:06 - Medications Medications: Current Medications Albuterol/Ipratropium (Duoneb 3 Mg/0.5 Mg (3 Ml) Ud) 3 ml INH RQ8 [facility] Last Admin: 03/13/17 08:03 Dose: 3 ml Citalopram Hydrobromide (Celexa) 20 mg PO DAILY [facility] Last Admin: 03/13/17 09:43 Dose: 20 mg Clonidine HCl (Catapres) 0.3 mg PO BID [facility] Last Admin: 03/13/17 09:43 Dose: 0.3 mg Furosemide (Lasix) 40 mg PO BID [facility] Last Admin: 03/13/17 09:42 Dose: 40 mg Guaifenesin (Robitussin) 100 mg PO Q6 PRN PRN Reason: Cough Last Admin: 03/12/17 21:15 Dose: 100 mg Hydralazine HCl (Apresoline) 20 mg PO Q8H [facility] Last Admin: 03/13/17 09:38 Dose: 20 mg Piperacillin Sod/Tazobactam (Sod 2.25 gm/ Sodium Chloride) 100 mls @ 100 mls/ hr IVPB Q8 [facility] Last Admin: 03/13/17 00:41 Dose: 100 mls/hr Metronidazole (Flagyl 500mg/100ml Ns) 100 mls @ 100 mls/hr IVPB Q8 [facility] Last Admin: 03/13/17 09:38 Dose: 100 mls/hr Heparin Sodium/Dextrose (Heparin 25,000 Units/250ml In D5w) 25,000 units in 250 mls @ 15 mls/hr IV .[id number] ONE Stop: 03/13/17 11:39 Last Admin: 03/12/17 21:07 Dose: 15 mls/hr Ketorolac Tromethamine (Toradol) 15 mg IVP Q12 PRN PRN Reason: Pain, moderate (4-7) Last Admin: 03/07/17 16:04 Dose: 15 mg Labetalol HCl (Trandate) 200 mg PO BID [facility] Last Admin: 03/13/17 09:40 Dose: 200 mg Lactic Acid (Lac-Hydrin 12% Lotion (225 G)) 1 applic TOP DAILY [facility] Last Admin: 03/13/17 09:42 Dose: 1 applic Pantoprazole Sodium (Protonix Inj) 40 mg IVP DAILY [facility] Last Admin: 03/13/17 09:44 Dose: 40 mg Prednisone (Prednisone Tab) 10 mg PO DAILY [facility] Last Admin: 03/13/17 09:44 Dose: 10 mg Vancomycin HCl (Vancocin (Oral/Rectal Use)) 250 mg PO Q8 [facility] Last Admin: 03/13/17 09:45 Dose: 250 mg - Labs Labs: 03/13/17 05:55 03/13/17 09:15 PT 12.1 SECONDS (9.6-11.2) H 03/13/17 05:15 INR 1.16 (0.92-1.08) H 03/13/17 05:15 APTT 41.8 SECONDS (23.3-32.5) H 03/13/17 05:15 - Respiratory Exam Additional comments: Lungs clear - Cardiovascular Exam Cardiovascular Exam: REGULAR RHYTHM - Extremities Exam Extremities Exam: Pedal Edema Additional comments: No change Assessment and Plan - Assessment and Plan (Free Text) Assessment: Crescentic GN(pauci immune) Creat. is stable Pneumonia on ABx Anemia Hb is improved Plan: Continue to monitor renal function Monitor vanco peak & trough levels
[2017-03-13] MEDS ORDERED: Heparin 25,000units in D5W 25,000 UNITS/250 ML BAG IV SCH (13:00)
--- NOTE | 2017-03-13 13:19 | CARD ---
APPROVED REPORT EKG Measurement Heart [id number] <Conclusion> Normal sinus rhythm Possible septal infarct, age undetermined Abnormal ECG
--- NOTE | 2017-03-13 17:58 | CP.PCM.PN ---
Subjective - Date & Time of Evaluation Date of Evaluation: 03/13/17 Time of Evaluation: 11:40 - Subjective Subjective: F/U L Lung infiltrate Cough productive , Chest congestion Objective - Vital Signs/Intake and Output Vital Signs (last 24 hours): Temp Pulse Resp BP Pulse Ox 97.8 F 82 20 145/76 98 03/13/17 17:17 03/13/17 17:17 03/13/17 17:17 03/13/17 17:17 03/13/17 17:17 - Medications Medications: Current Medications Albuterol/Ipratropium (Duoneb 3 Mg/0.5 Mg (3 Ml) Ud) 3 ml INH RQ8 [facility] Last Admin: 03/13/17 16:11 Dose: 3 ml Citalopram Hydrobromide (Celexa) 20 mg PO DAILY [facility] Last Admin: 03/13/17 09:43 Dose: 20 mg Clonidine HCl (Catapres) 0.3 mg PO BID [facility] Last Admin: 03/13/17 09:43 Dose: 0.3 mg Ferrous Sulfate (Feosol) 325 mg PO DAILY [facility] Last Admin: 03/13/17 13:14 Dose: 325 mg Furosemide (Lasix) 60 mg PO BID [facility] Last Admin: 03/13/17 17:12 Dose: 60 mg Guaifenesin (Robitussin) 100 mg PO Q6 PRN PRN Reason: Cough Last Admin: 03/12/17 21:15 Dose: 100 mg Hydralazine HCl (Apresoline) 20 mg PO Q8H [facility] Last Admin: 03/13/17 17:09 Dose: 20 mg Piperacillin Sod/Tazobactam (Sod 2.25 gm/ Sodium Chloride) 100 mls @ 100 mls/ hr IVPB Q8 [facility] Last Admin: 03/13/17 11:41 Dose: 100 mls/hr Metronidazole (Flagyl 500mg/100ml Ns) 100 mls @ 100 mls/hr IVPB Q8 [facility] Last Admin: 03/13/17 17:16 Dose: 100 mls/hr Heparin Sodium/Dextrose (Heparin 25,000 Units/250ml In D5w) 25,000 units in 250 mls @ 16.5 mls/hr IV .[id number] [facility] PRN Reason: Protocol Last Admin: 03/13/17 13:21 Dose: 16.5 mls/hr Ketorolac Tromethamine (Toradol) 15 mg IVP Q12 PRN PRN Reason: Pain, moderate (4-7) Last Admin: 03/07/17 16:04 Dose: 15 mg Labetalol HCl (Trandate) 200 mg PO BID [facility] Last Admin: 03/13/17 17:13 Dose: 200 mg Lactic Acid (Lac-Hydrin 12% Lotion (225 G)) 1 applic TOP DAILY [facility] Last Admin: 03/13/17 09:42 Dose: 1 applic Pantoprazole Sodium (Protonix Ec Tab) 40 mg PO DAILY [facility] Prednisone (Prednisone Tab) 10 mg PO DAILY [facility] Last Admin: 03/13/17 09:44 Dose: 10 mg Vancomycin HCl (Vancocin (Oral/Rectal Use)) 250 mg PO Q8 [facility] Last Admin: 03/13/17 17:13 Dose: 250 mg - Labs Labs: 03/13/17 05:55 03/13/17 11:38 PT 12.1 SECONDS (9.6-11.2) H 03/13/17 05:15 INR 1.16 (0.92-1.08) H 03/13/17 05:15 APTT 41.8 SECONDS (23.3-32.5) H 03/13/17 05:15 - Constitutional Appears: No Acute Distress - Head Exam Head Exam: NORMAL INSPECTION - Eye Exam Eye Exam: PERRL - ENT Exam ENT Exam: Normal Oropharynx - Neck Exam Neck Exam: Normal Inspection - Respiratory Exam Respiratory Exam: Decreased Breath Sounds (at bases), Rhonchi (b/l), Wheezes ( few scattered) - Cardiovascular Exam Cardiovascular Exam: REGULAR RHYTHM, Murmur (systolic 1/6 LSB) - GI/Abdominal Exam GI & Abdominal Exam: Soft, Normal Bowel Sounds - Extremities Exam Extremities Exam: Pedal Edema Additional comments: +3 pitting edema L/E - Back Exam Back Exam: NORMAL INSPECTION - Neurological Exam Neurological Exam: Alert, Oriented x3 Additional comments: no focal motor/sensory deficit - Psychiatric Exam Psychiatric exam: Depressed - Skin Skin Exam: Warm Assessment and Plan (1) Lung infiltrate on CT Status: Acute (2) COPD (chronic obstructive pulmonary disease) Status: Chronic - Assessment and Plan (Free Text) Plan: Continue current Abt Tx , one sputum AFB (neg) , Patient on C Diff Rx
--- NOTE | 2017-03-13 21:16 | CP.PCM.PCO ---
Assessment & Plan - Assessment and Plan (Free Text) Plan: PTT supratherapeutic at 129.8 - according to nomogram will hold Heparin drip x 1 hr and decrease infusion by 3 units/kg/hr - will repeat PTT in 3 hours and then again Q6, dose will be adjusted accordingly - plan was formulated after speaking to pharmacy in accordance with subhash heparin nomogram Tanja PGY2
[2017-03-14] MEDS: Vancomycin 500 mg (Oral/Rectal USE) PO SCH ×3 (00:06→17:12)
[2017-03-14] MEDS: metroNIDAZOLE 500mg/100ml NS 100 ML IVPB SCH ×3 (01:06→18:04)
[2017-03-14 06:50] LABS: HEMATOCRIT 23.3 % (35.0-51.0); MEAN CELL VOLUME 90.8 fl (80.0-94.0); MEAN CORPUSCULAR HGB CONC 33.1 g/dL (33.0-37.0); RED CELL DISTRIBUTION WIDTH 15.8 % (11.5-14.5); WHITE BLOOD COUNT 6.1 K/uL (4.8-10.8)
[2017-03-14 06:55] LABS: CALCIUM 6.7 mg/dL (8.4-10.2); POTASSIUM 4.3 MMOL/L (3.6-5.0)
[2017-03-14] MEDS ORDERED: Sodium Chloride 3% for Inhalation 4 ML VIAL.NEB IH PRN (07:47)
[2017-03-14] MEDS: Albuterol-Ipratrop 3 mg / 0.5 (3 ml) UD INH SCH ×2 (07:52→16:25)
--- NOTE | 2017-03-14 08:52 | CP.PCM.PN ---
Subjective - Date & Time of Evaluation Date of Evaluation: 03/14/17 Time of Evaluation: 07:30 - Subjective Subjective: 67 yo homeless M w PMHx of ANCA Vasculitis, DVT of RUE, CKD, HTN, etoh abuse, COPD, and CHF who was admitted with N/V/, PO intolerance, fever, abd pain, diarrhea, hematuria. Patient's GI symptoms have resolved, PO well tolerated. We are following impaired renal function secondary to chronic vasculitis , and recent complains of persistent SOB/cough and DVT therapeutic treatment with Heparin drip. Patient was seen and examined at bedside this morning. Still complaining of SOB , and now non-productive cough. Reports a dark color diarrhea this morning, but denies fresh red blood in stools. Denies nausea, vomiting, chest pain, urinary symptoms, lightheadedness/dizziness or other complains. Objective - Vital Signs/Intake and Output Vital Signs (last 24 hours): Temp Pulse Resp BP Pulse Ox 97 F L 77 18 159/78 H 97 03/14/17 00:11 03/14/17 01:06 03/14/17 00:11 03/14/17 01:06 03/14/17 00:11 - Medications Medications: Current Medications Albuterol/Ipratropium (Duoneb 3 Mg/0.5 Mg (3 Ml) Ud) 3 ml INH RQ8 [facility] Last Admin: 03/14/17 07:52 Dose: 3 ml Citalopram Hydrobromide (Celexa) 20 mg PO DAILY [facility] Last Admin: 03/13/17 09:43 Dose: 20 mg Clonidine HCl (Catapres) 0.3 mg PO BID [facility] Last Admin: 03/13/17 18:18 Dose: 0.3 mg Ferrous Sulfate (Feosol) 325 mg PO DAILY [facility] Last Admin: 03/13/17 13:14 Dose: 325 mg Furosemide (Lasix) 60 mg PO BID [facility] Last Admin: 03/13/17 17:12 Dose: 60 mg Guaifenesin (Robitussin) 100 mg PO Q6 PRN PRN Reason: Cough Last Admin: 03/12/17 21:15 Dose: 100 mg Hydralazine HCl (Apresoline) 20 mg PO Q8H [facility] Last Admin: 03/14/17 01:06 Dose: 20 mg Piperacillin Sod/Tazobactam (Sod 2.25 gm/ Sodium Chloride) 100 mls @ 100 mls/ hr IVPB Q8 [facility] Last Admin: 03/14/17 00:06 Dose: 100 mls/hr Metronidazole (Flagyl 500mg/100ml Ns) 100 mls @ 100 mls/hr IVPB Q8 [facility] Last Admin: 03/14/17 01:06 Dose: 100 mls/hr Heparin Sodium/Dextrose (Heparin 25,000 Units/250ml In D5w) 25,000 units in 250 mls @ 16.5 mls/hr IV .[id number] [facility] PRN Reason: Protocol Last Admin: 03/13/17 13:21 Dose: 16.5 mls/hr Ketorolac Tromethamine (Toradol) 15 mg IVP Q12 PRN PRN Reason: Pain, moderate (4-7) Last Admin: 03/07/17 16:04 Dose: 15 mg Labetalol HCl (Trandate) 200 mg PO BID [facility] Last Admin: 03/13/17 17:13 Dose: 200 mg Lactic Acid (Lac-Hydrin 12% Lotion (225 G)) 1 applic TOP DAILY [facility] Last Admin: 03/13/17 09:42 Dose: 1 applic Pantoprazole Sodium (Protonix Ec Tab) 40 mg PO DAILY [facility] Prednisone (Prednisone Tab) 10 mg PO DAILY [facility] Last Admin: 03/13/17 09:44 Dose: 10 mg Vancomycin HCl (Vancocin (Oral/Rectal Use)) 250 mg PO Q8 [facility] Last Admin: 03/14/17 00:06 Dose: 250 mg - Labs Labs: 03/14/17 06:15 03/14/17 06:15 PT 12.1 SECONDS (9.6-11.2) H 03/13/17 05:15 INR 1.16 (0.92-1.08) H 03/13/17 05:15 APTT 67.9 SECONDS (23.3-32.5) H* D 03/14/17 06:30 - Constitutional Appears: Non-toxic, No Acute Distress - Eye Exam Eye Exam: Normal appearance - ENT Exam ENT Exam: Mucous Membranes Moist - Respiratory Exam Respiratory Exam: Rales (persistent fine lower lobe crackles to auscultation of left lung. Clear right lung field to auscultation. ), NORMAL BREATHING PATTERN - Cardiovascular Exam Cardiovascular Exam: REGULAR RHYTHM, +S1, +S2 - GI/Abdominal Exam GI & Abdominal Exam: Soft, Normal Bowel Sounds. absent: Tenderness Additional comments: Protuberant to inspection - Extremities Exam Extremities Exam: absent: Calf Tenderness Additional comments: Bilateral pitting 2+ edema in lower extremities below knees. Persistent, but stable. No lesions noted. - Neurological Exam Neurological Exam: Alert, Awake, Oriented x3 - Skin Skin Exam: Dry, Intact, Normal Color Assessment and Plan - Assessment and Plan (Free Text) Assessment: 67 yo homeless M w PMHx of ANCA Vasculitis, DVT of RUE, CKD, HTN, etoh abuse, COPD, and CHF who was admitted to rule out ACS, PO intolerance likely related to a viral gastroenteritis that resolved, now with worsening kidney function most likely due to ANCA vasculitis, receiving treatment for positive C-diff toxin, Pneumonia and persistent DVT in RUE with Heparin drip. Plan: Hospital acquire Pneumonia -Still symptomatic with SOB and cough, afebrile -Pulmunology consult appreciated, Dr. Echols : wants to r/o active TB; respiratory isolation, sputum AFB x 3, continue current abx coverage -ID consult appreciated, Dr. Silver: c/w PO vancomycin and IV Flagyl for C-diff -Chest CT scan showed small infiltrate at the lingula most likely due to a HCAP (recent hospitalization 01/2017) -c/w Vancomycin 250 mg PO Q8 day # 4 -c/w Zosyn 2.25 mg IV TID renal dose (approved by Nephrology) day #4 ( started on 03/11/17) -c/w Duoneb Q 8 scheduled -c/w Oxygen 2 LPM in [place] -Vanco Trough on 03/13/17 was 11.2, Vanco peak was 11.2 -f/u Fugitell test. Pending CKD most likely secondary to ANCA vasculitis -Nephrology consult appreciated: Dr Sandoval and Dr. Kapoor on board - GI evaluation. Keep monitor kidney function. -BUN/creatinine stable at 73/4.2 -c/w Prednisone 10 mg PO daily -will consider starting cytoxan once c. diff infection resolve -Creatinine clearance, 24 hours: 12/low levels C-diff toxin positive -Asymptomatic -Changed to IV route as per ID recommendations, Flagyl 500 mg TID IV day #4 () -Continue contact precautions H/O Provoke DVT in RUE -Jluis/Onc consult appreciated, Dr. Bobo -H/H this morning was 7.7/23.3, repeat STAT H/H was 8.1/23.9 -Heparin drip was stopped and discontinued -Type & cross -Transfuse 2 units of PRBC -F/U FOBT ordered today -repeat u/s right upper ex 03/11: interval decrease in thrombus, mild amount of residual anterior wall thickening, vessel is patent, no appreciable acute thrombus note -Hold home medication Warfarin PO 5 mg daily because patient is in therapeutic treatment for DVT -nursing home anticoagulation not recommend secondary to pt noncompliance Chronic anemia most likely secondary to CKD -Jluis/Onc consult appreciated, Dr. Bobo -no evidence of active bleeding, FOBT : negative -H/H stable, 9.3/29.3 -will consider erythropoietin to prevent transfusion Latent TB -Pulmunology consult appreciated, Dr. Pate -Positive QFT on 12/2016 -Isoniazid was stopped per TB center, awaiting confirmation -First sputum AFB was negative. f/u ABF X 2, sputum culture results. Pending. H/O Reactive FTA-ABS -Asymptomatic at this time -F/U T. Pallidum antibodies titer ordered on 03/07/17.Pending Congestive Heart Failure -Improving at physical exam, but persistent SOB and crackles at PE -Pro-BNP on 03/07/17 was 4410, but stable from previous baseline -Increased Furosemide from 40 mg to 60 mg PO BID -Give Furosemide 40 mg IVP once and re-assess HTN most likely secondary to CKD -Hydralazine 20 mg PO TID -Labetalol 200 mg PO BID -Continue monitoring GERD -Asymptomatic -Protonix 40 mg PO daily
[2017-03-14 09:39] LABS: HEMATOCRIT 23.9 % (35.0-51.0)
[2017-03-14] MEDS: Pantoprazole 40 mg EC Tab PO SCH (10:14)
--- NOTE | 2017-03-14 11:26 | RAD ---
HISTORY: SOB, cough COMPARISON: 03/06/2017 TECHNIQUE: Chest PA and lateral FINDINGS: LUNGS: Right upper lobe opacity. Infiltrate/atelectasis. Volume loss with elevation of minor fissure. Patchy opacity seen beneath minor fissure as well, new since prior examination. PLEURA: Small moderate left pleural effusion, new since prior examination. No right pleural effusion. CARDIOVASCULAR: Normal. OSSEOUS STRUCTURES: No significant abnormalities. VISUALIZED UPPER ABDOMEN: Normal. OTHER FINDINGS: None. IMPRESSION: Right upper lobe opacity with right upper lobe volume loss. Opacity mid right lung beneath level of minor fissure, new since prior examination. Small to moderate left pleural effusion, new since prior examination.
[2017-03-14 11:52] LABS: IRON 77 ug/dL (49-181)
[2017-03-14] MEDS: Calcium-Vit D 500 mg-200 Units Tab UD PO SCH ×2 (11:59→17:13)
--- NOTE | 2017-03-14 12:10 | CP.PCM.PN ---
Subjective - Date & Time of Evaluation Date of Evaluation: 03/14/17 Time of Evaluation: 06:00 - Subjective Subjective: afeb nad Objective - Vital Signs/Intake and Output Vital Signs (last 24 hours): Temp Pulse Resp BP Pulse Ox 97.8 F 84 18 154/72 H 98 03/14/17 09:00 03/14/17 10:15 03/14/17 09:00 03/14/17 11:56 03/14/17 09:00 - Medications Medications: Current Medications Albuterol/Ipratropium (Duoneb 3 Mg/0.5 Mg (3 Ml) Ud) 3 ml INH RQ8 [facility] Last Admin: 03/14/17 07:52 Dose: 3 ml Calcium/Vitamin D (Oyster Shell Calcium/Vitamin D 500 Mg-200 Iu) 1 tab PO BIDWM [facility] Last Admin: 03/14/17 11:59 Dose: 1 tab Citalopram Hydrobromide (Celexa) 20 mg PO DAILY [facility] Last Admin: 03/14/17 10:12 Dose: 20 mg Clonidine HCl (Catapres) 0.3 mg PO BID [facility] Last Admin: 03/14/17 10:11 Dose: 0.3 mg Ferrous Sulfate (Feosol) 325 mg PO DAILY [facility] Last Admin: 03/14/17 10:12 Dose: 325 mg Furosemide (Lasix) 60 mg PO BID [facility] Last Admin: 03/14/17 10:13 Dose: 60 mg Guaifenesin (Robitussin) 100 mg PO Q6 PRN PRN Reason: Cough Last Admin: 03/12/17 21:15 Dose: 100 mg Hydralazine HCl (Apresoline) 20 mg PO Q8H [facility] Last Admin: 03/14/17 10:10 Dose: 20 mg Piperacillin Sod/Tazobactam (Sod 2.25 gm/ Sodium Chloride) 100 mls @ 100 mls/ hr IVPB Q8 [facility] Last Admin: 03/14/17 10:17 Dose: 100 mls/hr Metronidazole (Flagyl 500mg/100ml Ns) 100 mls @ 100 mls/hr IVPB Q8 [facility] Last Admin: 03/14/17 11:58 Dose: 100 mls/hr Labetalol HCl (Trandate) 200 mg PO BID [facility] Last Admin: 03/14/17 10:15 Dose: 200 mg Lactic Acid (Lac-Hydrin 12% Lotion (225 G)) 1 applic TOP DAILY [facility] Last Admin: 03/14/17 10:12 Dose: 1 applic Pantoprazole Sodium (Protonix Ec Tab) 40 mg PO DAILY [facility] Last Admin: 03/14/17 10:14 Dose: 40 mg Prednisone (Prednisone Tab) 10 mg PO DAILY [facility] Last Admin: 03/14/17 10:14 Dose: 10 mg Sodium Bicarbonate (Sodium Bicarbonate Tab) 1,300 mg PO BID [facility] Last Admin: 03/14/17 11:59 Dose: 1,300 mg Vancomycin HCl (Vancocin (Oral/Rectal Use)) 250 mg PO Q8 [facility] Last Admin: 03/14/17 10:16 Dose: 250 mg - Labs Labs: 03/14/17 09:00 03/14/17 06:15 PT 12.1 SECONDS (9.6-11.2) H 03/13/17 05:15 INR 1.16 (0.92-1.08) H 03/13/17 05:15 APTT 67.9 SECONDS (23.3-32.5) H* D 03/14/17 06:30 - Constitutional Appears: Non-toxic, Chronically Ill - Head Exam Head Exam: NORMOCEPHALIC - Eye Exam Eye Exam: absent: Scleral icterus - ENT Exam ENT Exam: Mucous Membranes Dry - Neck Exam Neck Exam: absent: Lymphadenopathy - Respiratory Exam Respiratory Exam: Decreased Breath Sounds, Clear to Ausculation Bilateral - Cardiovascular Exam Cardiovascular Exam: REGULAR RHYTHM, +S1, +S2 - GI/Abdominal Exam GI & Abdominal Exam: Distended, Soft. absent: Tenderness Assessment and Plan (1) Acute on chronic renal failure Status: Acute (2) Chest pain Status: Acute (3) Leukopenia Status: Acute (4) Anemia Status: Acute (5) CHF (congestive heart failure) Status: Acute (6) COPD (chronic obstructive pulmonary disease) with chronic bronchitis Status: Acute
--- NOTE | 2017-03-14 14:32 | CP.PCM.PN ---
Subjective - Date & Time of Evaluation Date of Evaluation: 03/14/17 Time of Evaluation: 13:30 - Subjective Subjective: F/U L Lung infiltrate. Cough yellowish sputum , GUIDRY Objective - Vital Signs/Intake and Output Vital Signs (last 24 hours): Temp Pulse Resp BP Pulse Ox 97.6 F 82 18 154/72 H 98 03/14/17 13:00 03/14/17 13:00 03/14/17 13:00 03/14/17 13:00 03/14/17 13:00 Intake and Output: 03/14/17 03/14/17 06:59 18:59 Output Total 600 Balance -600 - Medications Medications: Current Medications Albuterol/Ipratropium (Duoneb 3 Mg/0.5 Mg (3 Ml) Ud) 3 ml INH RQ8 [facility] Last Admin: 03/14/17 07:52 Dose: 3 ml Calcium/Vitamin D (Oyster Shell Calcium/Vitamin D 500 Mg-200 Iu) 1 tab PO BIDWM [facility] Last Admin: 03/14/17 11:59 Dose: 1 tab Citalopram Hydrobromide (Celexa) 20 mg PO DAILY [facility] Last Admin: 03/14/17 10:12 Dose: 20 mg Clonidine HCl (Catapres) 0.3 mg PO BID [facility] Last Admin: 03/14/17 10:11 Dose: 0.3 mg Ferrous Sulfate (Feosol) 325 mg PO DAILY [facility] Last Admin: 03/14/17 10:12 Dose: 325 mg Furosemide (Lasix) 60 mg PO BID [facility] Last Admin: 03/14/17 10:13 Dose: 60 mg Guaifenesin (Robitussin) 100 mg PO Q6 PRN PRN Reason: Cough Last Admin: 03/12/17 21:15 Dose: 100 mg Hydralazine HCl (Apresoline) 20 mg PO Q8H [facility] Last Admin: 03/14/17 10:10 Dose: 20 mg Piperacillin Sod/Tazobactam (Sod 2.25 gm/ Sodium Chloride) 100 mls @ 100 mls/ hr IVPB Q8 [facility] Last Admin: 03/14/17 10:17 Dose: 100 mls/hr Metronidazole (Flagyl 500mg/100ml Ns) 100 mls @ 100 mls/hr IVPB Q8 [facility] Last Admin: 03/14/17 11:58 Dose: 100 mls/hr Labetalol HCl (Trandate) 200 mg PO BID [facility] Last Admin: 03/14/17 10:15 Dose: 200 mg Lactic Acid (Lac-Hydrin 12% Lotion (225 G)) 1 applic TOP DAILY [facility] Last Admin: 03/14/17 10:12 Dose: 1 applic Pantoprazole Sodium (Protonix Ec Tab) 40 mg PO DAILY [facility] Last Admin: 03/14/17 10:14 Dose: 40 mg Prednisone (Prednisone Tab) 10 mg PO DAILY [facility] Last Admin: 03/14/17 10:14 Dose: 10 mg Sodium Bicarbonate (Sodium Bicarbonate Tab) 1,300 mg PO BID [facility] Last Admin: 03/14/17 11:59 Dose: 1,300 mg Vancomycin HCl (Vancocin (Oral/Rectal Use)) 250 mg PO Q8 [facility] Last Admin: 03/14/17 10:16 Dose: 250 mg - Labs Labs: 03/14/17 09:00 03/14/17 06:15 PT 12.1 SECONDS (9.6-11.2) H 03/13/17 05:15 INR 1.16 (0.92-1.08) H 03/13/17 05:15 APTT 67.9 SECONDS (23.3-32.5) H* D 03/14/17 06:30 - Constitutional Appears: No Acute Distress - Head Exam Head Exam: NORMAL INSPECTION - Eye Exam Eye Exam: PERRL - ENT Exam ENT Exam: Normal Exam - Neck Exam Neck Exam: Normal Inspection - Respiratory Exam Respiratory Exam: Rhonchi (scattered), Wheezes (scattered) - Cardiovascular Exam Cardiovascular Exam: REGULAR RHYTHM - GI/Abdominal Exam GI & Abdominal Exam: Soft, Normal Bowel Sounds - Extremities Exam Extremities Exam: Pedal Edema (leg edema) - Back Exam Back Exam: NORMAL INSPECTION - Neurological Exam Neurological Exam: Alert. absent: Motor Sensory Deficit - Psychiatric Exam Psychiatric exam: Normal Mood - Skin Skin Exam: Warm Assessment and Plan (1) Lung infiltrate on CT Status: Acute (2) COPD (chronic obstructive pulmonary disease) Status: Chronic - Assessment and Plan (Free Text) Plan: Continue DuoNeb , Zosyn , treated for C Diff, Hgb 7.7, f/u Sputum AFB one negative
[2017-03-14] MEDS ORDERED: Epoetin Alfa 20000 UNIT/ML Inj SC ONE (15:31)
--- NOTE | 2017-03-14 15:38 | CP.PCM.PN ---
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 Hypertension control with meds as ordered. Patient not on ACEI/ARB due to SHERRY Monitor Input/Output, daily weights and renal function with basic metabolic panel will d/c NSAIDs. added Oscal D and sodium bicarb supplement. consider switching PO to IV lasix 80 mg twice a day. will also give Epogen. he got 1 unit PRBC today. ordered Iron studies Check urine analysis, spot protein/creatinine and albumin/creatinine ratio, renal sonogram. Urine for eosinophils, CPK, uric acid. Check for 25-OH vitamin D, iPTH, phosphorus level. order calcium acetate 667 mg TID with meals will hold dosing cytoxan until acute infection resolves. he had got 2 doses before Dose meds/antibiotics for reduced GFR. Avoid fleets enema/magnesium based laxatives. Avoid nephrotoxins/NSAIDs/ iodinated contrast (unless needed emergently) Glycemic control Further work up for as per primary team Thanks for allowing me to participate in care of your patient. Will follow patient with you. Please call if any Qs Dr Darren Samano Office: [phone] Subjective: Noted events overnight. Patients doesn't feel well. c/o leg swelling and SOB with cough. Denies chest pain, palpitation. denies urinary complaints Physical Examination: General Appearance: tachypnoea but in no acute respiratory distress, co- operative. Vitals reviewed and noted as below Lungs: Increased respiratory rate/effort. Breath sounds bilateral with crackles/ rales Heart: Normal rate. s1s2 normal. No rub or gallop. Extremities: 2+ edema. Neurological: Patient is alert, awake and oriented to person, place and time. No focal deficit. Strength bilateral appropriate and equal Skin: Warm and dry. Normal turgor. No rash. Palpitation: Normal elasticity for age Abdomen: Abdomen is soft. Bowel sounds +. There is no abdominal tenderness, no guarding/rigidity or organomegaly : kidney or bladder not palpable Labs/imaging reviewed. Past medical history, past surgical history, family history, social history, allergy reviewed and noted as below Objective - Vital Signs/Intake and Output Vital Signs (last 24 hours): Temp Pulse Resp BP Pulse Ox 97.6 F 82 18 154/72 H 98 03/14/17 13:00 03/14/17 13:00 03/14/17 13:00 03/14/17 13:00 03/14/17 13:00 Intake and Output: 03/14/17 03/14/17 06:59 18:59 Output Total 600 Balance -600 - Medications Medications: Current Medications Albuterol/Ipratropium (Duoneb 3 Mg/0.5 Mg (3 Ml) Ud) 3 ml INH RQ8 [facility] Last Admin: 03/14/17 07:52 Dose: 3 ml Calcium/Vitamin D (Oyster Shell Calcium/Vitamin D 500 Mg-200 Iu) 1 tab PO BIDWM [facility] Last Admin: 03/14/17 11:59 Dose: 1 tab Citalopram Hydrobromide (Celexa) 20 mg PO DAILY [facility] Last Admin: 03/14/17 10:12 Dose: 20 mg Clonidine HCl (Catapres) 0.3 mg PO BID [facility] Last Admin: 03/14/17 10:11 Dose: 0.3 mg Epoetin José Manuel (Procrit) 20,000 unit SC ONCE ONE Stop: 03/14/17 15:32 Ferrous Sulfate (Feosol) 325 mg PO DAILY [facility] Last Admin: 03/14/17 10:12 Dose: 325 mg Furosemide (Lasix) 60 mg PO BID [facility] Last Admin: 03/14/17 10:13 Dose: 60 mg Guaifenesin (Robitussin) 100 mg PO Q6 PRN PRN Reason: Cough Last Admin: 03/12/17 21:15 Dose: 100 mg Hydralazine HCl (Apresoline) 20 mg PO Q8H [facility] Last Admin: 03/14/17 10:10 Dose: 20 mg Piperacillin Sod/Tazobactam (Sod 2.25 gm/ Sodium Chloride) 100 mls @ 100 mls/ hr IVPB Q8 [facility] Last Admin: 03/14/17 10:17 Dose: 100 mls/hr Metronidazole (Flagyl 500mg/100ml Ns) 100 mls @ 100 mls/hr IVPB Q8 [facility] Last Admin: 03/14/17 11:58 Dose: 100 mls/hr Labetalol HCl (Trandate) 200 mg PO BID [facility] Last Admin: 03/14/17 10:15 Dose: 200 mg Lactic Acid (Lac-Hydrin 12% Lotion (225 G)) 1 applic TOP DAILY [facility] Last Admin: 03/14/17 10:12 Dose: 1 applic Pantoprazole Sodium (Protonix Ec Tab) 40 mg PO DAILY [facility] Last Admin: 03/14/17 10:14 Dose: 40 mg Prednisone (Prednisone Tab) 10 mg PO DAILY [facility] Last Admin: 03/14/17 10:14 Dose: 10 mg Sodium Bicarbonate (Sodium Bicarbonate Tab) 1,300 mg PO BID [facility] Last Admin: 03/14/17 11:59 Dose: 1,300 mg Vancomycin HCl (Vancocin (Oral/Rectal Use)) 250 mg PO Q8 [facility] Last Admin: 03/14/17 10:16 Dose: 250 mg - Labs Labs: 03/14/17 09:00 03/14/17 06:15 PT 12.1 SECONDS (9.6-11.2) H 03/13/17 05:15 INR 1.16 (0.92-1.08) H 03/13/17 05:15 APTT 67.9 SECONDS (23.3-32.5) H* D 03/14/17 06:30
--- NOTE | 2017-03-14 17:05 | CP.PCM.PN ---
Subjective - Date & Time of Evaluation Date of Evaluation: 03/14/17 Time of Evaluation: 15:00 - Subjective Subjective: Appears comfortable for PRBC transfusion today Objective - Vital Signs/Intake and Output Vital Signs (last 24 hours): Temp Pulse Resp BP Pulse Ox 97.6 F 84 18 156/79 H 94 L 03/14/17 16:13 03/14/17 16:13 03/14/17 16:13 03/14/17 16:13 03/14/17 16:13 Intake and Output: 03/14/17 03/14/17 06:59 18:59 Output Total 600 Balance -600 - Medications Medications: Current Medications Albuterol/Ipratropium (Duoneb 3 Mg/0.5 Mg (3 Ml) Ud) 3 ml INH RQ8 [facility] Last Admin: 03/14/17 16:25 Dose: 3 ml Calcium Acetate (Phoslo) 667 mg PO WM [facility] Calcium/Vitamin D (Oyster Shell Calcium/Vitamin D 500 Mg-200 Iu) 1 tab PO BIDWM [facility] Last Admin: 03/14/17 11:59 Dose: 1 tab Citalopram Hydrobromide (Celexa) 20 mg PO DAILY [facility] Last Admin: 03/14/17 10:12 Dose: 20 mg Clonidine HCl (Catapres) 0.3 mg PO BID [facility] Last Admin: 03/14/17 10:11 Dose: 0.3 mg Ferrous Sulfate (Feosol) 325 mg PO DAILY [facility] Last Admin: 03/14/17 10:12 Dose: 325 mg Furosemide (Lasix) 80 mg IV BID [facility] Guaifenesin (Robitussin) 100 mg PO Q6 PRN PRN Reason: Cough Last Admin: 03/12/17 21:15 Dose: 100 mg Hydralazine HCl (Apresoline) 20 mg PO Q8H [facility] Last Admin: 03/14/17 10:10 Dose: 20 mg Piperacillin Sod/Tazobactam (Sod 2.25 gm/ Sodium Chloride) 100 mls @ 100 mls/ hr IVPB Q8 [facility] Last Admin: 03/14/17 10:17 Dose: 100 mls/hr Metronidazole (Flagyl 500mg/100ml Ns) 100 mls @ 100 mls/hr IVPB Q8 [facility] Last Admin: 03/14/17 11:58 Dose: 100 mls/hr Labetalol HCl (Trandate) 200 mg PO BID [facility] Last Admin: 03/14/17 10:15 Dose: 200 mg Lactic Acid (Lac-Hydrin 12% Lotion (225 G)) 1 applic TOP DAILY [facility] Last Admin: 03/14/17 10:12 Dose: 1 applic Pantoprazole Sodium (Protonix Ec Tab) 40 mg PO DAILY [facility] Last Admin: 03/14/17 10:14 Dose: 40 mg Prednisone (Prednisone Tab) 10 mg PO DAILY [facility] Last Admin: 03/14/17 10:14 Dose: 10 mg Sodium Bicarbonate (Sodium Bicarbonate Tab) 1,300 mg PO BID [facility] Last Admin: 03/14/17 11:59 Dose: 1,300 mg Vancomycin HCl (Vancocin (Oral/Rectal Use)) 250 mg PO Q8 [facility] Last Admin: 03/14/17 10:16 Dose: 250 mg - Labs Labs: 03/14/17 09:00 03/14/17 06:15 PT 12.1 SECONDS (9.6-11.2) H 03/13/17 05:15 INR 1.16 (0.92-1.08) H 03/13/17 05:15 APTT 67.9 SECONDS (23.3-32.5) H* D 03/14/17 06:30 - Head Exam Head Exam: ATRAUMATIC - ENT Exam ENT Exam: Mucous Membranes Dry - Respiratory Exam Respiratory Exam: NORMAL BREATHING PATTERN - Cardiovascular Exam Cardiovascular Exam: +S1, +S2 - GI/Abdominal Exam GI & Abdominal Exam: Normal Bowel Sounds Assessment and Plan (1) Anemia Assessment & Plan: chronic disease, CKD 2U PRBC today will give procrit in AM if hgb < 11 Status: Acute (2) DVT (deep venous thrombosis) Assessment & Plan: provoked from DVT heparin drip given prior noncompliance, high risk for outpatient anticoagulation Status: Acute
[2017-03-14] MEDS ORDERED: Calcium Acetate 667 MG Capsule PO SCH (18:30)
[2017-03-14 22:26] LABS: VITAMIN D 25 OH TOTAL < 12.8 NG/ML (30.0-100.0)
[2017-03-15] MEDS: Albuterol-Ipratrop 3 mg / 0.5 (3 ml) UD INH SCH ×4 (00:46→23:23)
[2017-03-15] MEDS: Vancomycin 500 mg (Oral/Rectal USE) PO SCH ×3 (02:24→16:56)
[2017-03-15] MEDS: metroNIDAZOLE 500mg/100ml NS 100 ML IVPB SCH ×3 (03:20→17:03)
--- NOTE | 2017-03-15 06:29 | CP.PCM.PN ---
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 Patient was seen and examined at bedside this morning. Still complaining of SOB , and dry, non-productive cough this morning. Denies chest pain, nausea, vomiting, night sweats, abdominal pain. Reports that last episode of soft stools was yesterday afternoon. Voiding without any complains. Tolerating PO. Objective - Vital Signs/Intake and Output Vital Signs (last 24 hours): Temp Pulse Resp BP Pulse Ox 98.2 F 77 18 164/74 H 95 03/15/17 05:00 03/15/17 05:00 03/15/17 05:00 03/15/17 05:00 03/15/17 05:00 Intake and Output: 03/14/17 03/15/17 18:59 06:59 Intake Total 1445 Output Total 1350 2100 Balance 95 -2100 - Medications Medications: Current Medications Albuterol/Ipratropium (Duoneb 3 Mg/0.5 Mg (3 Ml) Ud) 3 ml INH RQ8 [facility] Last Admin: 03/15/17 00:46 Dose: 3 ml Calcium Acetate (Phoslo) 667 mg PO WM [facility] Last Admin: 03/14/17 18:40 Dose: 667 mg Calcium/Vitamin D (Oyster Shell Calcium/Vitamin D 500 Mg-200 Iu) 1 tab PO BIDWM [facility] Last Admin: 03/14/17 17:13 Dose: 1 tab Citalopram Hydrobromide (Celexa) 20 mg PO DAILY [facility] Last Admin: 03/14/17 10:12 Dose: 20 mg Clonidine HCl (Catapres) 0.3 mg PO BID [facility] Last Admin: 03/14/17 17:09 Dose: 0.3 mg Ferrous Sulfate (Feosol) 325 mg PO DAILY [facility] Last Admin: 03/14/17 10:12 Dose: 325 mg Furosemide (Lasix) 80 mg IV BID [facility] Last Admin: 03/14/17 18:05 Dose: 80 mg Guaifenesin (Robitussin) 100 mg PO Q6 PRN PRN Reason: Cough Last Admin: 03/12/17 21:15 Dose: 100 mg Hydralazine HCl (Apresoline) 20 mg PO Q8H [facility] Last Admin: 03/15/17 02:24 Dose: 20 mg Piperacillin Sod/Tazobactam (Sod 2.25 gm/ Sodium Chloride) 100 mls @ 100 mls/ hr IVPB Q8 [facility] Last Admin: 03/15/17 02:25 Dose: 100 mls/hr Metronidazole (Flagyl 500mg/100ml Ns) 100 mls @ 100 mls/hr IVPB Q8 [facility] Last Admin: 03/15/17 03:20 Dose: 100 mls/hr Labetalol HCl (Trandate) 200 mg PO BID [facility] Last Admin: 03/14/17 17:11 Dose: 200 mg Lactic Acid (Lac-Hydrin 12% Lotion (225 G)) 1 applic TOP DAILY [facility] Last Admin: 03/14/17 10:12 Dose: 1 applic Pantoprazole Sodium (Protonix Ec Tab) 40 mg PO DAILY [facility] Last Admin: 03/14/17 10:14 Dose: 40 mg Prednisone (Prednisone Tab) 10 mg PO DAILY [facility] Last Admin: 03/14/17 10:14 Dose: 10 mg Sodium Bicarbonate (Sodium Bicarbonate Tab) 1,300 mg PO BID [facility] Last Admin: 03/14/17 17:10 Dose: 1,300 mg Vancomycin HCl (Vancocin (Oral/Rectal Use)) 250 mg PO Q8 [facility] Last Admin: 03/15/17 02:24 Dose: 250 mg - Labs Labs: 03/14/17 09:00 03/14/17 06:15 PT 12.1 SECONDS (9.6-11.2) H 03/13/17 05:15 INR 1.16 (0.92-1.08) H 03/13/17 05:15 APTT 67.9 SECONDS (23.3-32.5) H* D 03/14/17 06:30 - Constitutional Appears: Non-toxic, No Acute Distress - Eye Exam Eye Exam: Normal appearance - ENT Exam ENT Exam: Mucous Membranes Moist - Respiratory Exam Respiratory Exam: Clear to Ausculation Bilateral, NORMAL BREATHING PATTERN. absent: Rales, Rhonchi, Wheezes - Cardiovascular Exam Cardiovascular Exam: REGULAR RHYTHM, +S1, +S2 - GI/Abdominal Exam GI & Abdominal Exam: Soft, Normal Bowel Sounds. absent: Tenderness Additional comments: Protuberant - Extremities Exam Extremities Exam: Pedal Edema (Bilateral lower extremities below knee edema pitting 2+, improving. ). absent: Calf Tenderness - Neurological Exam Neurological Exam: Alert, Awake, Oriented x3 - Psychiatric Exam Psychiatric exam: Normal Affect, Normal Mood - Skin Skin Exam: Dry, Intact, Normal Color Assessment and Plan - Assessment and Plan (Free Text) Assessment: 67 yo homeless M w PMHx of ANCA Vasculitis, DVT of RUE, CKD, HTN, etoh abuse, COPD, and CHF who was admitted to rule out ACS, PO intolerance likely related to a viral gastroenteritis that resolved, now with worsening kidney function most likely due to ANCA vasculitis, receiving treatment for positive C-diff toxin, Pneumonia. H/o positive TB QFT, pending for AFB sputum x 3. Plan: Hospital acquire Pneumonia -Still symptomatic with SOB and cough, but afebrile -Pulmunology consult appreciated, Dr. Echols : wants to r/o active TB; respiratory isolation, sputum AFB x 3, continue current abx coverage -ID consult appreciated, Dr. Silver: c/w PO vancomycin and IV Flagyl for C-diff -Chest CT scan showed small infiltrate at the lingula most likely due to a HCAP (recent hospitalization 01/2017) -c/w Vancomycin 250 mg PO Q8 day # 5 -c/w Zosyn 2.25 mg IV TID renal dose (approved by Nephrology) day #5 ( started on 03/11/17) -c/w Duoneb Q 8 scheduled -c/w Oxygen 2 LPM in [place] -Vanco Trough on 03/13/17 was 11.2, Vanco peak was 11.2 -f/u Fugitell test. Pending CKD most likely secondary to ANCA vasculitis -Nephrology on board - Keep monitor kidney function with BMP -BUN/creatinine improving, 64/4.0 -c/w Prednisone 10 mg PO daily -IV lasix 80 mg twice a day today and may be able to lower it to lasix 40 IV bid tomorrow -Vitamin D deficiency most likely secondary to CKD -Vitamin D 25 decreased : < 12.8 -Hypocalcemia most likely secondary to CKD -Start calcium acetate 667 mg TID with meals and weekly vit D 50,000 units -will consider starting cytoxan once c. diff infection resolve -Creatinine clearance, 24 hours: 12/low levels C-diff toxin positive -Improving -c/w Flagyl 500 mg TID IV day #5 (03/10) -Continue contact precautions H/O Provoke DVT in RUE -Jluis/Onc consult appreciated, Dr. Bobo -H/H improving this morning was 9.4/28.5 -Heparin drip was stopped and discontinued -s/p 2 units of transfused PRBC -FOBT ordered today -repeat u/s right upper ex 03/11: interval decrease in thrombus, mild amount of residual anterior wall thickening, vessel is patent, no appreciable acute thrombus note -Hold home medication Warfarin PO 5 mg daily because patient is in therapeutic treatment for DVT -senior care anticoagulation not recommend secondary to pt noncompliance Chronic anemia most likely secondary to CKD -Jluis/Onc consult appreciated, Dr. Bobo -no evidence of active bleeding, FOBT : negative -H/H improving this morning was 9.4/28.5 -S/p Procrit once Latent TB -AFB sputum stain negative X 2, pending -f/u third ABF sputum , sputum culture results. Pending. -Pulmunology consult appreciated, Dr. Echols -Positive QFT on 12/2016 -Isoniazid was stopped per TB center, awaiting confirmation H/O Reactive FTA-ABS -Asymptomatic at this time -F/U T. Pallidum antibodies titer ordered on 03/07/17.Pending Congestive Heart Failure -Improving at physical exam, but persistent SOB, but no crackles at PE -Pro-BNP on 03/07/17 was 4410, but stable from previous baseline -c/w Furosemide 40 mg IVP BID -Increased Labetalol dose from 200 mg to 400 PO BID -not on ACEI/ARB due to SHERRY. HTN most likely secondary to CKD -Hydralazine 20 mg PO TID -Increased Labetalol dose from 200 mg to 400 PO BID -Continue monitoring GERD -Asymptomatic -Protonix 40 mg PO daily
[2017-03-15 07:13] LABS: BASO % 0.4 % (0.0-2.0); EOS # 0.1 K/uL (0.0-0.7); EOS % 1.3 % (0.0-4.0); HEMATOCRIT 28.5 % (35.0-51.0); LYMPH # 1.4 K/uL (1.0-4.3); LYMPH % 22.7 % (20.0-40.0); MEAN CELL VOLUME 87.7 fl (80.0-94.0); MEAN CORPUSCULAR HEMOGLOBIN 28.9 pg (27.0-31.0); MEAN CORPUSCULAR HGB CONC 32.9 g/dL (33.0-37.0); MEAN PLATELET VOLUME 7.4 fl (7.2-11.7); MONO # 0.5 K/uL (0.0-0.8); MONO % 8.5 % (0.0-10.0); NEUT # 4.1 K/uL (1.8-7.0); NEUT % 67.1 % (50.0-75.0); NRBC % 0.1 % (0.0-0.0); RED CELL DISTRIBUTION WIDTH 17.5 % (11.5-14.5); WHITE BLOOD COUNT 6.1 K/uL (4.8-10.8)
[2017-03-15 07:25] LABS: CALCIUM 7.1 mg/dL (8.4-10.2)
[2017-03-15] MEDS: Ergocalciferol 50,000 Intl Units Cap PO SCH (09:10)
[2017-03-15] MEDS: Pantoprazole 40 mg EC Tab PO SCH (09:33)
[2017-03-15] MEDS ORDERED: Sodium Chloride 3% for Inhalation 4 ML VIAL.NEB IH PRN ×2 (09:38→09:40)
--- NOTE | 2017-03-15 10:39 | CARD ---
APPROVED REPORT EKG Measurement Heart [id number] <Conclusion> Poor data quality, interpretation may be adversely affected Normal sinus rhythm Septal infarct, age undetermined Abnormal ECG
--- NOTE | 2017-03-15 10:39 | CARD ---
APPROVED REPORT EKG Measurement Heart [id number] <Conclusion> Normal sinus rhythm with sinus arrhythmia Septal infarct, age undetermined Abnormal ECG
--- NOTE | 2017-03-15 11:25 | CP.PCM.PN ---
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 Hypertension control with meds as ordered. Patient not on ACEI/ARB due to SHERRY. will increase labetalol to 400 mg bid Monitor Input/Output, daily weights and renal function with basic metabolic panel continue with sodium bicarb supplement. continue with IV lasix 80 mg twice a day today and may be able to lower it to lasix 40 IV bid tomorrow. plan for Epogen as per heme. he got PRBC yesterday ordered calcium acetate 667 mg TID with meals and weekly vit D 50,000 units will hold dosing cytoxan until acute infection resolves. he had got 2 doses before Dose meds/antibiotics for reduced GFR. Avoid fleets enema/magnesium based laxatives. Avoid nephrotoxins/NSAIDs/ iodinated contrast (unless needed emergently) Further work up for as per primary team Thanks for allowing me to participate in care of your patient. Will follow patient with you. Please call if any Qs Dr Darren Samano Office: [phone] Subjective: Noted events overnight. Patients feels better. improved leg swelling and SOB. has cough. Denies chest pain, palpitation. denies urinary complaints. made 3.5 L urine with IV lasix Physical Examination: General Appearance: in no acute respiratory distress, co-operative. Vitals reviewed and noted as below Lungs: Improved respiratory rate/effort. Breath sounds bilateral clearer with basal crackles Heart: Normal rate. s1s2 normal. No rub or gallop. Extremities: 1+ edema. Neurological: Patient is alert, awake and oriented to person, place and time. No focal deficit. Strength bilateral appropriate and equal Skin: Warm and dry. Normal turgor. No rash. Palpitation: Normal elasticity for age Abdomen: Abdomen is soft. Bowel sounds +. There is no abdominal tenderness, no guarding/rigidity or organomegaly : kidney or bladder not palpable Labs/imaging reviewed. Past medical history, past surgical history, family history, social history, allergy reviewed Objective - Vital Signs/Intake and Output Vital Signs (last 24 hours): Temp Pulse Resp BP Pulse Ox 97.9 F 78 18 181/85 H 95 03/15/17 08:24 03/15/17 09:34 03/15/17 08:24 03/15/17 09:34 03/15/17 08:24 Intake and Output: 03/15/17 03/15/17 06:59 18:59 Output Total 2100 Balance -2100 - Medications Medications: Current Medications Albuterol/Ipratropium (Duoneb 3 Mg/0.5 Mg (3 Ml) Ud) 3 ml INH RQ8 [facility] Last Admin: 03/15/17 07:54 Dose: 3 ml Calcium Acetate (Phoslo) 667 mg PO WM [facility] Last Admin: 03/15/17 08:30 Dose: 667 mg Citalopram Hydrobromide (Celexa) 20 mg PO DAILY [facility] Last Admin: 03/15/17 09:31 Dose: 20 mg Clonidine HCl (Catapres) 0.3 mg PO BID [facility] Last Admin: 03/15/17 09:30 Dose: 0.3 mg Ergocalciferol (Drisdol 50,000 Intl Units Cap) 1 cap PO Q7D [facility] Last Admin: 03/15/17 09:10 Dose: 1 cap Ferrous Sulfate (Feosol) 325 mg PO DAILY [facility] Last Admin: 03/15/17 09:31 Dose: 325 mg Furosemide (Lasix) 80 mg IV BID [facility] Last Admin: 03/15/17 09:32 Dose: 80 mg Guaifenesin (Robitussin) 100 mg PO Q6 PRN PRN Reason: Cough Last Admin: 03/12/17 21:15 Dose: 100 mg Hydralazine HCl (Apresoline) 20 mg PO Q8H [facility] Last Admin: 03/15/17 09:30 Dose: 20 mg Piperacillin Sod/Tazobactam (Sod 2.25 gm/ Sodium Chloride) 100 mls @ 100 mls/ hr IVPB Q8 [facility] Last Admin: 03/15/17 09:34 Dose: 100 mls/hr Metronidazole (Flagyl 500mg/100ml Ns) 100 mls @ 100 mls/hr IVPB Q8 [facility] Last Admin: 03/15/17 09:31 Dose: 100 mls/hr Labetalol HCl (Trandate) 200 mg PO BID [facility] Last Admin: 03/15/17 09:34 Dose: 200 mg Lactic Acid (Lac-Hydrin 12% Lotion (225 G)) 1 applic TOP DAILY [facility] Last Admin: 03/15/17 09:32 Dose: 1 applic Pantoprazole Sodium (Protonix Ec Tab) 40 mg PO DAILY [facility] Last Admin: 03/15/17 09:33 Dose: 40 mg Prednisone (Prednisone Tab) 10 mg PO DAILY [facility] Last Admin: 03/15/17 09:33 Dose: 10 mg Sodium Bicarbonate (Sodium Bicarbonate Tab) 1,300 mg PO BID [facility] Last Admin: 03/15/17 09:33 Dose: 1,300 mg Vancomycin HCl (Vancocin (Oral/Rectal Use)) 250 mg PO Q8 [facility] Last Admin: 03/15/17 09:35 Dose: 250 mg - Labs Labs: 03/15/17 06:10 03/15/17 06:10 PT 12.1 SECONDS (9.6-11.2) H 03/13/17 05:15 INR 1.16 (0.92-1.08) H 03/13/17 05:15 APTT 30.3 SECONDS (23.3-32.5) D 03/15/17 06:10
--- NOTE | 2017-03-15 13:52 | CP.PCM.PN ---
Subjective - Date & Time of Evaluation Date of Evaluation: 03/15/17 Time of Evaluation: 10:00 - Subjective Subjective: F/U L Lung infiltrate Cough improved, occasional cough with productive scanty phlegms, less chest congestion, mild GUIDRY walking to bathroom. Objective - Vital Signs/Intake and Output Vital Signs (last 24 hours): Temp Pulse Resp BP Pulse Ox 98.4 F 74 18 159/83 H 97 03/15/17 12:33 03/15/17 12:33 03/15/17 12:33 03/15/17 12:33 03/15/17 12:33 Intake and Output: 03/15/17 03/15/17 06:59 18:59 Output Total 2100 Balance -2100 - Medications Medications: Current Medications Albuterol/Ipratropium (Duoneb 3 Mg/0.5 Mg (3 Ml) Ud) 3 ml INH RQ8 [facility] Last Admin: 03/15/17 07:54 Dose: 3 ml Calcium Acetate (Phoslo) 667 mg PO WM [facility] Last Admin: 03/15/17 12:50 Dose: 667 mg Citalopram Hydrobromide (Celexa) 20 mg PO DAILY [facility] Last Admin: 03/15/17 09:31 Dose: 20 mg Clonidine HCl (Catapres) 0.3 mg PO BID [facility] Last Admin: 03/15/17 09:30 Dose: 0.3 mg Ergocalciferol (Drisdol 50,000 Intl Units Cap) 1 cap PO Q7D [facility] Last Admin: 03/15/17 09:10 Dose: 1 cap Ferrous Sulfate (Feosol) 325 mg PO DAILY [facility] Last Admin: 03/15/17 09:31 Dose: 325 mg Furosemide (Lasix) 80 mg IV ONCE ONE Stop: 03/15/17 17:01 Furosemide (Lasix) 40 mg IVP BID [facility] Stop: 03/21/17 10:00 Guaifenesin (Robitussin) 100 mg PO Q6 PRN PRN Reason: Cough Last Admin: 03/12/17 21:15 Dose: 100 mg Hydralazine HCl (Apresoline) 20 mg PO Q8H [facility] Last Admin: 03/15/17 09:30 Dose: 20 mg Piperacillin Sod/Tazobactam (Sod 2.25 gm/ Sodium Chloride) 100 mls @ 100 mls/ hr IVPB Q8 [facility] Last Admin: 03/15/17 09:34 Dose: 100 mls/hr Metronidazole (Flagyl 500mg/100ml Ns) 100 mls @ 100 mls/hr IVPB Q8 [facility] Last Admin: 03/15/17 09:31 Dose: 100 mls/hr Labetalol HCl (Trandate) 400 mg PO BID [facility] Lactic Acid (Lac-Hydrin 12% Lotion (225 G)) 1 applic TOP DAILY [facility] Last Admin: 03/15/17 09:32 Dose: 1 applic Pantoprazole Sodium (Protonix Ec Tab) 40 mg PO DAILY [facility] Last Admin: 03/15/17 09:33 Dose: 40 mg Prednisone (Prednisone Tab) 10 mg PO DAILY [facility] Last Admin: 03/15/17 09:33 Dose: 10 mg Sodium Bicarbonate (Sodium Bicarbonate Tab) 1,300 mg PO BID [facility] Last Admin: 03/15/17 09:33 Dose: 1,300 mg Vancomycin HCl (Vancocin (Oral/Rectal Use)) 250 mg PO Q8 [facility] Last Admin: 03/15/17 09:35 Dose: 250 mg - Labs Labs: 03/15/17 06:10 03/15/17 06:10 PT 12.1 SECONDS (9.6-11.2) H 03/13/17 05:15 INR 1.16 (0.92-1.08) H 03/13/17 05:15 APTT 30.3 SECONDS (23.3-32.5) D 03/15/17 06:10 - Constitutional Appears: No Acute Distress - Head Exam Head Exam: NORMAL INSPECTION - Eye Exam Eye Exam: PERRL - ENT Exam ENT Exam: Normal Oropharynx - Neck Exam Neck Exam: Normal Inspection - Respiratory Exam Respiratory Exam: Rhonchi (b/l), Wheezes (scattered) - Cardiovascular Exam Cardiovascular Exam: REGULAR RHYTHM, Murmur (systolic 1/6 LSB) - GI/Abdominal Exam GI & Abdominal Exam: Soft, Normal Bowel Sounds - Extremities Exam Extremities Exam: Pedal Edema - Back Exam Back Exam: NORMAL INSPECTION - Neurological Exam Neurological Exam: Alert, Oriented x3. absent: Motor Sensory Deficit - Psychiatric Exam Psychiatric exam: Normal Mood - Skin Skin Exam: Warm Assessment and Plan (1) Lung infiltrate on CT Status: Acute (2) COPD (chronic obstructive pulmonary disease) Status: Chronic - Assessment and Plan (Free Text) Plan: Continue Zosyn. Vanco, Duoneb, Solumedrol, f/u [employer]
[2017-03-15 18:36] LABS: (1-3)-B-D GLUCAN 445 pg/mL
[2017-03-16] MEDS: metroNIDAZOLE 500mg/100ml NS 100 ML IVPB SCH ×3 (00:22→16:34)
[2017-03-16] MEDS: Vancomycin 500 mg (Oral/Rectal USE) PO SCH ×3 (01:00→16:37)
[2017-03-16 07:37] LABS: HEMATOCRIT 26.8 % (35.0-51.0); MEAN CELL VOLUME 86.1 fl (80.0-94.0); MEAN CORPUSCULAR HEMOGLOBIN 29.8 pg (27.0-31.0); MEAN CORPUSCULAR HGB CONC 34.6 g/dL (33.0-37.0); RED CELL DISTRIBUTION WIDTH 17.8 % (11.5-14.5); WHITE BLOOD COUNT 5.6 K/uL (4.8-10.8)
[2017-03-16 07:48] LABS: CALCIUM 7.1 mg/dL (8.4-10.2); POTASSIUM 3.9 MMOL/L (3.6-5.0)
[2017-03-16] MEDS: Albuterol-Ipratrop 3 mg / 0.5 (3 ml) UD INH SCH ×3 (08:13→23:43)
[2017-03-16] MEDS: Pantoprazole 40 mg EC Tab PO SCH (09:51)
--- NOTE | 2017-03-16 11:58 | CP.PCM.PN ---
Subjective - Date & Time of Evaluation Date of Evaluation: 03/16/17 Time of Evaluation: 11:45 - Subjective Subjective: Feels better today No sob Objective - Vital Signs/Intake and Output Vital Signs (last 24 hours): Temp Pulse Resp BP Pulse Ox 98 F 74 20 172/88 H 97 03/16/17 09:13 03/16/17 09:36 03/16/17 09:13 03/16/17 09:36 03/16/17 09:13 - Medications Medications: Current Medications Albuterol/Ipratropium (Duoneb 3 Mg/0.5 Mg (3 Ml) Ud) 3 ml INH RQ8 [facility] Last Admin: 03/16/17 08:13 Dose: 3 ml Calcium Acetate (Phoslo) 667 mg PO WM [facility] Last Admin: 03/16/17 08:30 Dose: 667 mg Citalopram Hydrobromide (Celexa) 20 mg PO DAILY [facility] Last Admin: 03/16/17 09:33 Dose: 20 mg Clonidine HCl (Catapres) 0.3 mg PO BID [facility] Last Admin: 03/16/17 09:33 Dose: 0.3 mg Ergocalciferol (Drisdol 50,000 Intl Units Cap) 1 cap PO Q7D [facility] Last Admin: 03/15/17 09:10 Dose: 1 cap Ferrous Sulfate (Feosol) 325 mg PO DAILY [facility] Last Admin: 03/16/17 09:34 Dose: 325 mg Furosemide (Lasix) 40 mg IVP BID [facility] Stop: 03/21/17 10:00 Last Admin: 03/16/17 09:34 Dose: 40 mg Guaifenesin (Robitussin) 100 mg PO Q6 PRN PRN Reason: Cough Last Admin: 03/12/17 21:15 Dose: 100 mg Heparin Sodium (Porcine) (Heparin) 5,000 units SC Q12 [facility] PRN Reason: Protocol Last Admin: 03/16/17 09:34 Dose: 5,000 units Hydralazine HCl (Apresoline) 20 mg PO Q8H [facility] Last Admin: 03/16/17 09:33 Dose: 20 mg Piperacillin Sod/Tazobactam (Sod 2.25 gm/ Sodium Chloride) 100 mls @ 100 mls/ hr IVPB Q8 [facility] Last Admin: 03/16/17 09:31 Dose: 100 mls/hr Metronidazole (Flagyl 500mg/100ml Ns) 100 mls @ 100 mls/hr IVPB Q8 [facility] Last Admin: 03/16/17 09:32 Dose: 100 mls/hr Labetalol HCl (Trandate) 400 mg PO BID [facility] Last Admin: 03/16/17 09:36 Dose: 400 mg Lactic Acid (Lac-Hydrin 12% Lotion (225 G)) 1 applic TOP DAILY [facility] Last Admin: 03/16/17 09:34 Dose: 1 applic Pantoprazole Sodium (Protonix Ec Tab) 40 mg PO DAILY [facility] Last Admin: 03/16/17 09:51 Dose: 40 mg Prednisone (Prednisone Tab) 10 mg PO DAILY [facility] Last Admin: 03/16/17 09:35 Dose: 10 mg Sodium Bicarbonate (Sodium Bicarbonate Tab) 1,300 mg PO BID [facility] Last Admin: 03/16/17 09:36 Dose: 1,300 mg Vancomycin HCl (Vancocin (Oral/Rectal Use)) 250 mg PO Q8 [facility] Last Admin: 03/16/17 09:36 Dose: 250 mg - Labs Labs: 03/16/17 06:40 03/16/17 06:40 PT 12.1 SECONDS (9.6-11.2) H 03/13/17 05:15 INR 1.16 (0.92-1.08) H 03/13/17 05:15 APTT 29.6 SECONDS (23.3-32.5) 03/16/17 06:40 - Respiratory Exam Additional comments: Lungs clear - Cardiovascular Exam Cardiovascular Exam: REGULAR RHYTHM - Extremities Exam Additional comments: improving pedal edema Assessment and Plan - Assessment and Plan (Free Text) Assessment: Crescentic ( pauci immune) GN. Renal function is stable HTN CHF C.diff colitis Plan: Continue to monitor renal function Tx with PO vanco for c.diff
--- NOTE | 2017-03-16 17:08 | CP.PCM.PN ---
Subjective - Date & Time of Evaluation Date of Evaluation: 03/16/17 Time of Evaluation: 10:00 - Subjective Subjective: F/U Lung Infiltrate Objective - Vital Signs/Intake and Output Vital Signs (last 24 hours): Temp Pulse Resp BP Pulse Ox 97.5 F L 71 18 153/76 H 94 L 03/16/17 16:26 03/16/17 16:37 03/16/17 16:26 03/16/17 16:37 03/16/17 16:26 - Medications Medications: Current Medications Albuterol/Ipratropium (Duoneb 3 Mg/0.5 Mg (3 Ml) Ud) 3 ml INH RQ8 [facility] Last Admin: 03/16/17 15:42 Dose: 3 ml Calcium Acetate (Phoslo) 667 mg PO WM [facility] Last Admin: 03/16/17 12:47 Dose: 667 mg Citalopram Hydrobromide (Celexa) 20 mg PO DAILY [facility] Last Admin: 03/16/17 09:33 Dose: 20 mg Clonidine HCl (Catapres) 0.3 mg PO BID [facility] Last Admin: 03/16/17 16:35 Dose: 0.3 mg Ergocalciferol (Drisdol 50,000 Intl Units Cap) 1 cap PO Q7D [facility] Last Admin: 03/15/17 09:10 Dose: 1 cap Ferrous Sulfate (Feosol) 325 mg PO DAILY [facility] Last Admin: 03/16/17 09:34 Dose: 325 mg Furosemide (Lasix) 40 mg IVP BID [facility] Stop: 03/21/17 10:00 Last Admin: 03/16/17 16:36 Dose: 40 mg Guaifenesin (Robitussin) 100 mg PO Q6 PRN PRN Reason: Cough Last Admin: 03/12/17 21:15 Dose: 100 mg Heparin Sodium (Porcine) (Heparin) 5,000 units SC Q12 [facility] PRN Reason: Protocol Last Admin: 03/16/17 09:34 Dose: 5,000 units Hydralazine HCl (Apresoline) 20 mg PO Q8H [facility] Last Admin: 03/16/17 16:35 Dose: 20 mg Piperacillin Sod/Tazobactam (Sod 2.25 gm/ Sodium Chloride) 100 mls @ 100 mls/ hr IVPB Q8 [facility] Last Admin: 05/11/17 09:31 Dose: 100 mls/hr Metronidazole (Flagyl 500mg/100ml Ns) 100 mls @ 100 mls/hr IVPB Q8 [facility] Last Admin: 03/16/17 16:34 Dose: 100 mls/hr Labetalol HCl (Trandate) 400 mg PO BID [facility] Last Admin: 03/16/17 16:37 Dose: 400 mg Lactic Acid (Lac-Hydrin 12% Lotion (225 G)) 1 applic TOP DAILY [facility] Last Admin: 03/16/17 09:34 Dose: 1 applic Pantoprazole Sodium (Protonix Ec Tab) 40 mg PO DAILY [facility] Last Admin: 03/16/17 09:51 Dose: 40 mg Prednisone (Prednisone Tab) 10 mg PO DAILY [facility] Last Admin: 03/16/17 09:35 Dose: 10 mg Sodium Bicarbonate (Sodium Bicarbonate Tab) 1,300 mg PO BID [facility] Last Admin: 03/16/17 16:36 Dose: 1,300 mg Vancomycin HCl (Vancocin (Oral/Rectal Use)) 250 mg PO Q8 [facility] Last Admin: 03/16/17 16:37 Dose: 250 mg - Labs Labs: 03/16/17 06:40 03/16/17 06:40 PT 12.1 SECONDS (9.6-11.2) H 03/13/17 05:15 INR 1.16 (0.92-1.08) H 03/13/17 05:15 APTT 29.6 SECONDS (23.3-32.5) 03/16/17 06:40 - Constitutional Appears: No Acute Distress - Head Exam Head Exam: NORMAL INSPECTION - Eye Exam Eye Exam: PERRL - ENT Exam ENT Exam: Normal Oropharynx - Neck Exam Neck Exam: Normal Inspection - Respiratory Exam Respiratory Exam: Rhonchi (b/l), Wheezes (scattered) - Cardiovascular Exam Cardiovascular Exam: REGULAR RHYTHM, Murmur (systolic 1/6 LSB) - GI/Abdominal Exam GI & Abdominal Exam: Soft, Normal Bowel Sounds - Extremities Exam Extremities Exam: Pedal Edema - Back Exam Back Exam: NORMAL INSPECTION - Neurological Exam Neurological Exam: Alert, Oriented x3. absent: Motor Sensory Deficit - Psychiatric Exam Psychiatric exam: Normal Mood - Skin Skin Exam: Warm Assessment and Plan (1) Lung infiltrate on CT Status: Acute (2) COPD (chronic obstructive pulmonary disease) Status: Chronic
[2017-03-16] MEDS ORDERED: Epoetin Alfa 20000 UNIT/ML Inj SC ONE (17:29)
--- NOTE | 2017-03-16 17:29 | CP.PCM.PN ---
Subjective - Date & Time of Evaluation Date of Evaluation: 03/16/17 Time of Evaluation: 16:00 - Subjective Subjective: No complaints. Objective - Vital Signs/Intake and Output Vital Signs (last 24 hours): Temp Pulse Resp BP Pulse Ox 97.5 F L 71 18 153/76 H 94 L 03/16/17 16:26 03/16/17 16:37 03/16/17 16:26 03/16/17 16:37 03/16/17 16:26 - Medications Medications: Current Medications Albuterol/Ipratropium (Duoneb 3 Mg/0.5 Mg (3 Ml) Ud) 3 ml INH RQ8 [facility] Last Admin: 03/16/17 15:42 Dose: 3 ml Calcium Acetate (Phoslo) 667 mg PO WM [facility] Last Admin: 03/16/17 12:47 Dose: 667 mg Citalopram Hydrobromide (Celexa) 20 mg PO DAILY [facility] Last Admin: 03/16/17 09:33 Dose: 20 mg Clonidine HCl (Catapres) 0.3 mg PO BID [facility] Last Admin: 03/16/17 16:35 Dose: 0.3 mg Ergocalciferol (Drisdol 50,000 Intl Units Cap) 1 cap PO Q7D [facility] Last Admin: 03/15/17 09:10 Dose: 1 cap Ferrous Sulfate (Feosol) 325 mg PO DAILY [facility] Last Admin: 03/16/17 09:34 Dose: 325 mg Furosemide (Lasix) 40 mg IVP BID [facility] Stop: 03/21/17 10:00 Last Admin: 03/16/17 16:36 Dose: 40 mg Guaifenesin (Robitussin) 100 mg PO Q6 PRN PRN Reason: Cough Last Admin: 03/12/17 21:15 Dose: 100 mg Heparin Sodium (Porcine) (Heparin) 5,000 units SC Q12 [facility] PRN Reason: Protocol Last Admin: 03/16/17 09:34 Dose: 5,000 units Hydralazine HCl (Apresoline) 20 mg PO Q8H [facility] Last Admin: 03/16/17 16:35 Dose: 20 mg Piperacillin Sod/Tazobactam (Sod 2.25 gm/ Sodium Chloride) 100 mls @ 100 mls/ hr IVPB Q8 [facility] Last Admin: 03/16/17 09:31 Dose: 100 mls/hr Metronidazole (Flagyl 500mg/100ml Ns) 100 mls @ 100 mls/hr IVPB Q8 [facility] Last Admin: 03/16/17 16:34 Dose: 100 mls/hr Labetalol HCl (Trandate) 400 mg PO BID [facility] Last Admin: 03/16/17 16:37 Dose: 400 mg Lactic Acid (Lac-Hydrin 12% Lotion (225 G)) 1 applic TOP DAILY [facility] Last Admin: 03/16/17 09:34 Dose: 1 applic Pantoprazole Sodium (Protonix Ec Tab) 40 mg PO DAILY [facility] Last Admin: 03/16/17 09:51 Dose: 40 mg Prednisone (Prednisone Tab) 10 mg PO DAILY [facility] Last Admin: 03/16/17 09:35 Dose: 10 mg Sodium Bicarbonate (Sodium Bicarbonate Tab) 1,300 mg PO BID [facility] Last Admin: 03/16/17 16:36 Dose: 1,300 mg Vancomycin HCl (Vancocin (Oral/Rectal Use)) 250 mg PO Q8 [facility] Last Admin: 03/16/17 16:37 Dose: 250 mg - Labs Labs: 03/16/17 06:40 03/16/17 06:40 PT 12.1 SECONDS (9.6-11.2) H 03/13/17 05:15 INR 1.16 (0.92-1.08) H 03/13/17 05:15 APTT 29.6 SECONDS (23.3-32.5) 03/16/17 06:40 - Head Exam Head Exam: ATRAUMATIC - Eye Exam Eye Exam: Normal appearance - ENT Exam ENT Exam: Mucous Membranes Dry - Respiratory Exam Respiratory Exam: NORMAL BREATHING PATTERN - Cardiovascular Exam Cardiovascular Exam: +S1, +S2 - GI/Abdominal Exam GI & Abdominal Exam: Normal Bowel Sounds Assessment and Plan (1) Anemia Assessment & Plan: episodes of hematuria, chronic disease, CKD s/p PRBC transfusion will given Procrit in attempts to decrease transfusion dependence Status: Acute (2) DVT (deep venous thrombosis) Assessment & Plan: provoked from PICC line heparin drip stopped for hematuria and drop in H/H not an ideal candidate for outpatient bed bug exterminator anticoagulation given concern for compliance agree with DVT prophylaxis for now Status: Acute
--- NOTE | 2017-03-16 18:15 | CP.PCM.PN ---
Subjective - Date & Time of Evaluation Date of Evaluation: 03/16/17 Time of Evaluation: 08:00 - Subjective Subjective: weak and coughing but less SOB denies fever all cultures negative AFB pending Objective - Vital Signs/Intake and Output Vital Signs (last 24 hours): Temp Pulse Resp BP Pulse Ox 97.5 F L 71 18 153/76 H 94 L 03/16/17 16:26 03/16/17 16:37 03/16/17 16:26 03/16/17 16:37 03/16/17 16:26 - Medications Medications: Current Medications Albuterol/Ipratropium (Duoneb 3 Mg/0.5 Mg (3 Ml) Ud) 3 ml INH RQ8 [facility] Last Admin: 03/16/17 15:42 Dose: 3 ml Calcium Acetate (Phoslo) 667 mg PO WM [facility] Last Admin: 03/16/17 17:53 Dose: 667 mg Citalopram Hydrobromide (Celexa) 20 mg PO DAILY [facility] Last Admin: 03/16/17 09:33 Dose: 20 mg Clonidine HCl (Catapres) 0.3 mg PO BID [facility] Last Admin: 03/16/17 16:35 Dose: 0.3 mg Ergocalciferol (Drisdol 50,000 Intl Units Cap) 1 cap PO Q7D [facility] Last Admin: 03/15/17 09:10 Dose: 1 cap Ferrous Sulfate (Feosol) 325 mg PO DAILY [facility] Last Admin: 03/16/17 09:34 Dose: 325 mg Furosemide (Lasix) 40 mg IVP BID [facility] Stop: 03/21/17 10:00 Last Admin: 03/16/17 16:36 Dose: 40 mg Guaifenesin (Robitussin) 100 mg PO Q6 PRN PRN Reason: Cough Last Admin: 03/12/17 21:15 Dose: 100 mg Heparin Sodium (Porcine) (Heparin) 5,000 units SC Q12 [facility] PRN Reason: Protocol Last Admin: 03/16/17 09:34 Dose: 5,000 units Hydralazine HCl (Apresoline) 20 mg PO Q8H [facility] Last Admin: 03/16/17 16:35 Dose: 20 mg Piperacillin Sod/Tazobactam (Sod 2.25 gm/ Sodium Chloride) 100 mls @ 100 mls/ hr IVPB Q8 [facility] Last Admin: 03/16/17 17:52 Dose: 100 mls/hr Metronidazole (Flagyl 500mg/100ml Ns) 100 mls @ 100 mls/hr IVPB Q8 [facility] Last Admin: 03/16/17 16:34 Dose: 100 mls/hr Labetalol HCl (Trandate) 400 mg PO BID [facility] Last Admin: 03/16/17 16:37 Dose: 400 mg Lactic Acid (Lac-Hydrin 12% Lotion (225 G)) 1 applic TOP DAILY [facility] Last Admin: 03/16/17 09:34 Dose: 1 applic Pantoprazole Sodium (Protonix Ec Tab) 40 mg PO DAILY [facility] Last Admin: 03/16/17 09:51 Dose: 40 mg Prednisone (Prednisone Tab) 10 mg PO DAILY [facility] Last Admin: 03/16/17 09:35 Dose: 10 mg Sodium Bicarbonate (Sodium Bicarbonate Tab) 1,300 mg PO BID [facility] Last Admin: 03/16/17 16:36 Dose: 1,300 mg Vancomycin HCl (Vancocin (Oral/Rectal Use)) 250 mg PO Q8 [facility] Last Admin: 03/16/17 16:37 Dose: 250 mg - Labs Labs: 03/16/17 06:40 03/16/17 06:40 PT 12.1 SECONDS (9.6-11.2) H 03/13/17 05:15 INR 1.16 (0.92-1.08) H 03/13/17 05:15 APTT 29.6 SECONDS (23.3-32.5) 03/16/17 06:40 - Constitutional Appears: Non-toxic, Chronically Ill - Head Exam Head Exam: NORMOCEPHALIC - Eye Exam Eye Exam: PERRL. absent: Scleral icterus - ENT Exam ENT Exam: Mucous Membranes Dry - Neck Exam Neck Exam: absent: Lymphadenopathy - Respiratory Exam Respiratory Exam: Decreased Breath Sounds, Prolonged Expiratory Phase, Rhonchi - Cardiovascular Exam Cardiovascular Exam: REGULAR RHYTHM, +S1, +S2 - GI/Abdominal Exam GI & Abdominal Exam: Distended, Soft. absent: Tenderness - Rectal Exam Rectal Exam: Deferred - Exam Exam: NORMAL INSPECTION - Extremities Exam Extremities Exam: Pedal Edema - Back Exam Back Exam: absent: CVA tenderness (L), CVA tenderness (R) - Neurological Exam Neurological Exam: Alert, Awake, Oriented x3 Neuro motor strength exam: Left Upper Extremity: 3, Right Upper Extremity: 3, Left Lower Extremity: 3, Right Lower Extremity: 3 Assessment and Plan (1) Acute on chronic renal failure Status: Acute (2) Chest pain Status: Acute (3) Leukopenia Status: Acute (4) Anemia Status: Acute (5) CHF (congestive heart failure) Status: Acute (6) COPD (chronic obstructive pulmonary disease) with chronic bronchitis Status: Acute - Assessment and Plan (Free Text) Assessment: s/p c diff colitis + TB quantiferon increased LFT's on INH last admission- followed at chest clinic
--- NOTE | 2017-03-16 18:22 | CP.PCM.PN ---
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 Patient was seen and examined at bedside this morning. Patient still complaining of SOB and dry cough, however have improved compare with yesterday. No bowel movements reported today, denies recent episode of diarrheas. Denies episodes of blood in stools. Denies chest pain, nausea, vomiting, abdominal pain or other complains. Objective - Vital Signs/Intake and Output Vital Signs (last 24 hours): Temp Pulse Resp BP Pulse Ox 97.5 F L 71 18 153/76 H 94 L 03/16/17 16:26 03/16/17 16:37 03/16/17 16:26 03/16/17 16:37 03/16/17 16:26 - Medications Medications: Current Medications Albuterol/Ipratropium (Duoneb 3 Mg/0.5 Mg (3 Ml) Ud) 3 ml INH RQ8 [facility] Last Admin: 03/16/17 15:42 Dose: 3 ml Calcium Acetate (Phoslo) 667 mg PO WM [facility] Last Admin: 03/16/17 17:53 Dose: 667 mg Citalopram Hydrobromide (Celexa) 20 mg PO DAILY [facility] Last Admin: 03/16/17 09:33 Dose: 20 mg Clonidine HCl (Catapres) 0.3 mg PO BID [facility] Last Admin: 03/16/17 16:35 Dose: 0.3 mg Ergocalciferol (Drisdol 50,000 Intl Units Cap) 1 cap PO Q7D [facility] Last Admin: 03/15/17 09:10 Dose: 1 cap Ferrous Sulfate (Feosol) 325 mg PO DAILY [facility] Last Admin: 03/16/17 09:34 Dose: 325 mg Furosemide (Lasix) 40 mg IVP BID [facility] Stop: 03/21/17 10:00 Last Admin: 03/16/17 16:36 Dose: 40 mg Guaifenesin (Robitussin) 100 mg PO Q6 PRN PRN Reason: Cough Last Admin: 05/07/17 21:15 Dose: 100 mg Heparin Sodium (Porcine) (Heparin) 5,000 units SC Q12 [facility] PRN Reason: Protocol Last Admin: 03/16/17 09:34 Dose: 5,000 units Hydralazine HCl (Apresoline) 20 mg PO Q8H [facility] Last Admin: 03/16/17 16:35 Dose: 20 mg Piperacillin Sod/Tazobactam (Sod 2.25 gm/ Sodium Chloride) 100 mls @ 100 mls/ hr IVPB Q8 [facility] Last Admin: 03/16/17 17:52 Dose: 100 mls/hr Metronidazole (Flagyl 500mg/100ml Ns) 100 mls @ 100 mls/hr IVPB Q8 [facility] Last Admin: 03/16/17 16:34 Dose: 100 mls/hr Labetalol HCl (Trandate) 400 mg PO BID [facility] Last Admin: 03/16/17 16:37 Dose: 400 mg Lactic Acid (Lac-Hydrin 12% Lotion (225 G)) 1 applic TOP DAILY [facility] Last Admin: 03/16/17 09:34 Dose: 1 applic Pantoprazole Sodium (Protonix Ec Tab) 40 mg PO DAILY [facility] Last Admin: 03/16/17 09:51 Dose: 40 mg Prednisone (Prednisone Tab) 10 mg PO DAILY [facility] Last Admin: 03/16/17 09:35 Dose: 10 mg Sodium Bicarbonate (Sodium Bicarbonate Tab) 1,300 mg PO BID [facility] Last Admin: 03/16/17 16:36 Dose: 1,300 mg Vancomycin HCl (Vancocin (Oral/Rectal Use)) 250 mg PO Q8 [facility] Last Admin: 03/16/17 16:37 Dose: 250 mg - Labs Labs: 03/16/17 06:40 03/16/17 06:40 PT 12.1 SECONDS (9.6-11.2) H 03/13/17 05:15 INR 1.16 (0.92-1.08) H 03/13/17 05:15 APTT 29.6 SECONDS (23.3-32.5) 03/16/17 06:40 - Constitutional Appears: Non-toxic, No Acute Distress - ENT Exam ENT Exam: Mucous Membranes Moist - Respiratory Exam Respiratory Exam: Rales (Persistent, but improved fine rales in left lower lobe , right lobes clear to auscultation), NORMAL BREATHING PATTERN - Cardiovascular Exam Cardiovascular Exam: REGULAR RHYTHM, +S1, +S2 - GI/Abdominal Exam GI & Abdominal Exam: Soft, Normal Bowel Sounds. absent: Tenderness Additional comments: Protuberant - Extremities Exam Extremities Exam: absent: Calf Tenderness Additional comments: Bilateral pitting 2+ edema in lower extremities below knees - Neurological Exam Neurological Exam: Alert, Awake, Oriented x3 - Skin Skin Exam: Dry, Intact, Normal Color Assessment and Plan - Assessment and Plan (Free Text) Assessment: 67 yo homeless M w PMHx of ANCA Vasculitis, DVT of RUE, CKD, HTN, etoh abuse, COPD, and CHF who was admitted to rule out ACS, PO intolerance likely related to a viral gastroenteritis that resolved, now with worsening kidney function most likely due to ANCA vasculitis, receiving treatment for positive C-diff toxin, Pneumonia. H/o positive TB QFT, pending for AFB sputum # 3 Plan: Hospital acquire Pneumonia -Still symptomatic with SOB and cough, but afebrile -Pulmunology consult appreciated, Dr. Echols : wants to r/o active TB; respiratory isolation, sputum AFB x 3, continue current abx coverage -ID consult appreciated, Dr. Silver: c/w PO vancomycin and IV Flagyl for C-diff -Chest CT scan showed small infiltrate at the lingula most likely due to a HCAP (recent hospitalization 01/2017) -c/w Vancomycin 250 mg PO Q8 day # 6 -c/w Zosyn 2.25 mg IV TID renal dose (approved by Nephrology) day #6 ( started on 03/11/17) -c/w Duoneb Q 8 scheduled -c/w Oxygen 2 LPM in [place] -Vanco Trough on 03/13/17 was 11.2, Vanco peak was 11.2 -f/u Fugitell test. Pending CKD most likely secondary to ANCA vasculitis -Nephrology on board - Keep monitor kidney function with BMP -BUN/creatinine still improving, 62/4.0 -c/w Prednisone 10 mg PO daily -IV lasix decreased to lasix 40 IV BID -Vitamin D deficiency most likely secondary to CKD -Vitamin D 25 decreased : < 12.8 -Hypocalcemia most likely secondary to CKD -Start calcium acetate 667 mg TID with meals and weekly vit D 50,000 units -will consider starting cytoxan once c. diff infection resolve -Creatinine clearance, 24 hours: 12/low levels C-diff toxin positive -Improving -c/w Flagyl 500 mg TID IV day #6 (03/10) -Continue contact precautions H/O Provoke DVT in RUE -Jluis/Onc consult appreciated, Dr. Bobo -H/H stable 9.3/.8 -s/p Heparin drip -s/p 2 units of transfused PRBC -FOBT ordered today -repeat u/s right upper ex 03/11: interval decrease in thrombus, mild amount of residual anterior wall thickening, vessel is patent, no appreciable acute thrombus note -senior living anticoagulation with Coumadin PO not recommended secondary to pt noncompliance with f/u and high risk for bleeding. Dr. Bobo agree for DVT prophylaxis for now Chronic anemia most likely secondary to CKD -Jluis/Onc consult appreciated, Dr. Bobo -no evidence of active bleeding, FOBT : negative -H/H stable 9.3.8 -S/p Procrit once Latent TB -AFB sputum stain negative X 3, pending cultures -Pulmunology consult appreciated, Dr. Echols -Positive QFT on 12/2016 -Isoniazid was stopped per TB center, awaiting confirmation H/O Reactive FTA-ABS -Asymptomatic at this time -F/U T. Pallidum antibodies titer ordered on 03/07/17.Pending Congestive Heart Failure -stable , improving SOB -Pro-BNP on 03/07/17 was 4410, but stable from previous baseline -c/w Furosemide 40 mg IVP BID -Increased Labetalol dose from 200 mg to 400 PO BID -not on ACEI/ARB due to SHERRY. HTN most likely secondary to CKD -Hydralazine 20 mg PO TID -Increased Labetalol dose from 200 mg to 400 PO BID -Continue monitoring GERD -Asymptomatic -Protonix 40 mg PO daily DVT prophylaxis Heparin 5000 units SC BID. Re-started on 03/15/17
[2017-03-17] MEDS: metroNIDAZOLE 500mg/100ml NS 100 ML IVPB SCH ×3 (00:23→16:36)
[2017-03-17] MEDS: Vancomycin 500 mg (Oral/Rectal USE) PO SCH ×3 (00:24→16:38)
[2017-03-17 06:41] LABS: MEAN CELL VOLUME 87.6 fl (80.0-94.0); MEAN CORPUSCULAR HEMOGLOBIN 29.7 pg (27.0-31.0); MEAN CORPUSCULAR HGB CONC 33.9 g/dL (33.0-37.0); RED CELL DISTRIBUTION WIDTH 17.1 % (11.5-14.5); WHITE BLOOD COUNT 6.6 K/uL (4.8-10.8)
[2017-03-17 07:47] LABS: CALCIUM 7.1 mg/dL (8.4-10.2); POTASSIUM 4.2 MMOL/L (3.6-5.0)
[2017-03-17] MEDS: Albuterol-Ipratrop 3 mg / 0.5 (3 ml) UD INH SCH ×2 (08:20→15:30)
[2017-03-17] MEDS: Pantoprazole 40 mg EC Tab PO SCH (09:01)
--- NOTE | 2017-03-17 11:00 | CP.PCM.PN ---
Subjective - Date & Time of Evaluation Date of Evaluation: 03/17/17 Time of Evaluation: 10:20 - Subjective Subjective: Feels better today No sob Objective - Vital Signs/Intake and Output Vital Signs (last 24 hours): Temp Pulse Resp BP Pulse Ox 97.3 F L 77 18 180/91 H 95 03/17/17 08:02 03/17/17 09:01 03/17/17 08:02 03/17/17 09:02 03/17/17 08:02 - Medications Medications: Current Medications Albuterol/Ipratropium (Duoneb 3 Mg/0.5 Mg (3 Ml) Ud) 3 ml INH RQ8 [facility] Last Admin: 03/17/17 08:20 Dose: 3 ml Calcium Acetate (Phoslo) 667 mg PO WM [facility] Last Admin: 03/17/17 09:01 Dose: 667 mg Citalopram Hydrobromide (Celexa) 20 mg PO DAILY [facility] Last Admin: 03/17/17 09:01 Dose: 20 mg Clonidine HCl (Catapres) 0.3 mg PO BID [facility] Last Admin: 03/17/17 09:01 Dose: 0.3 mg Ergocalciferol (Drisdol 50,000 Intl Units Cap) 1 cap PO Q7D [facility] Last Admin: 03/15/17 09:10 Dose: 1 cap Ferrous Sulfate (Feosol) 325 mg PO DAILY [facility] Last Admin: 03/17/17 09:02 Dose: 325 mg Furosemide (Lasix) 40 mg IVP BID [facility] Stop: 03/21/17 10:00 Last Admin: 03/17/17 09:02 Dose: 40 mg Guaifenesin (Robitussin) 100 mg PO Q6 PRN PRN Reason: Cough Last Admin: 03/12/17 21:15 Dose: 100 mg Heparin Sodium (Porcine) (Heparin) 5,000 units SC Q12 [facility] PRN Reason: Protocol Last Admin: 03/17/17 09:02 Dose: 5,000 units Hydralazine HCl (Apresoline) 20 mg PO Q8H [facility] Last Admin: 03/17/17 09:05 Dose: 20 mg Piperacillin Sod/Tazobactam (Sod 2.25 gm/ Sodium Chloride) 100 mls @ 100 mls/ hr IVPB Q8 [facility] Last Admin: 05/12/17 09:04 Dose: 100 mls/hr Metronidazole (Flagyl 500mg/100ml Ns) 100 mls @ 100 mls/hr IVPB Q8 [facility] Last Admin: 03/17/17 09:03 Dose: 100 mls/hr Labetalol HCl (Trandate) 400 mg PO BID [facility] Last Admin: 03/17/17 09:02 Dose: 400 mg Lactic Acid (Lac-Hydrin 12% Lotion (225 G)) 1 applic TOP DAILY [facility] Last Admin: 03/17/17 09:04 Dose: 1 applic Pantoprazole Sodium (Protonix Ec Tab) 40 mg PO DAILY [facility] Last Admin: 03/17/17 09:01 Dose: 40 mg Prednisone (Prednisone Tab) 10 mg PO DAILY [facility] Last Admin: 03/17/17 09:02 Dose: 10 mg Sodium Bicarbonate (Sodium Bicarbonate Tab) 1,300 mg PO BID [facility] Last Admin: 03/17/17 09:00 Dose: 1,300 mg Vancomycin HCl (Vancocin (Oral/Rectal Use)) 250 mg PO Q8 [facility] Last Admin: 03/17/17 09:03 Dose: 250 mg - Labs Labs: 03/17/17 05:45 03/17/17 05:45 PT 12.1 SECONDS (9.6-11.2) H 03/13/17 05:15 INR 1.16 (0.92-1.08) H 03/13/17 05:15 APTT 29.6 SECONDS (23.3-32.5) 03/16/17 06:40 - Respiratory Exam Additional comments: Lungs clear - Cardiovascular Exam Cardiovascular Exam: REGULAR RHYTHM - Extremities Exam Additional comments: No edema or cyanosis Assessment and Plan - Assessment and Plan (Free Text) Assessment: Crescentin GN ( pauci immune) Tx with steroids & Cytoxan Second dose of cytoxan is on hold because of C. diff colitis Pneumonis CHF Plan: Continue current Mx Repeat stool for C.diff toxin
--- NOTE | 2017-03-17 12:15 | CP.PCM.PN ---
Subjective - Date & Time of Evaluation Date of Evaluation: 03/17/17 Time of Evaluation: 06:50 - Subjective Subjective: Patient was seen and examined at bedside this morning. Patient reports that SOB and dry cough are imptoving. He had an uneventful night. Still on oxygen by [place]. Denies chest pain, nausea, vomiting, abdominal pain, diarrheas or other complains. Tolerating PO without difficulty. Objective - Vital Signs/Intake and Output Vital Signs (last 24 hours): Temp Pulse Resp BP Pulse Ox 97.3 F L 77 18 180/91 H 95 03/17/17 08:02 03/17/17 09:01 03/17/17 08:02 03/17/17 09:02 03/17/17 08:02 - Medications Medications: Current Medications Albuterol/Ipratropium (Duoneb 3 Mg/0.5 Mg (3 Ml) Ud) 3 ml INH RQ8 [facility] Last Admin: 03/17/17 08:20 Dose: 3 ml Calcium Acetate (Phoslo) 667 mg PO WM [facility] Last Admin: 03/17/17 09:01 Dose: 667 mg Citalopram Hydrobromide (Celexa) 20 mg PO DAILY [facility] Last Admin: 03/17/17 09:01 Dose: 20 mg Clonidine HCl (Catapres) 0.3 mg PO BID [facility] Last Admin: 03/17/17 09:01 Dose: 0.3 mg Ergocalciferol (Drisdol 50,000 Intl Units Cap) 1 cap PO Q7D [facility] Last Admin: 03/15/17 09:10 Dose: 1 cap Ferrous Sulfate (Feosol) 325 mg PO DAILY [facility] Last Admin: 03/17/17 09:02 Dose: 325 mg Furosemide (Lasix) 40 mg IVP BID [facility] Stop: 03/21/17 10:00 Last Admin: 03/17/17 09:02 Dose: 40 mg Guaifenesin (Robitussin) 100 mg PO Q6 PRN PRN Reason: Cough Last Admin: 03/12/17 21:15 Dose: 100 mg Heparin Sodium (Porcine) (Heparin) 5,000 units SC Q12 [facility] PRN Reason: Protocol Last Admin: 03/17/17 09:02 Dose: 5,000 units Hydralazine HCl (Apresoline) 20 mg PO Q8H [facility] Last Admin: 03/17/17 09:05 Dose: 20 mg Piperacillin Sod/Tazobactam (Sod 2.25 gm/ Sodium Chloride) 100 mls @ 100 mls/ hr IVPB Q8 [facility] Last Admin: 03/17/17 09:04 Dose: 100 mls/hr Metronidazole (Flagyl 500mg/100ml Ns) 100 mls @ 100 mls/hr IVPB Q8 [facility] Last Admin: 03/17/17 09:03 Dose: 100 mls/hr Labetalol HCl (Trandate) 400 mg PO BID [facility] Last Admin: 03/17/17 09:02 Dose: 400 mg Lactic Acid (Lac-Hydrin 12% Lotion (225 G)) 1 applic TOP DAILY [facility] Last Admin: 03/17/17 09:04 Dose: 1 applic Pantoprazole Sodium (Protonix Ec Tab) 40 mg PO DAILY [facility] Last Admin: 03/17/17 09:01 Dose: 40 mg Prednisone (Prednisone Tab) 10 mg PO DAILY [facility] Last Admin: 03/17/17 09:02 Dose: 10 mg Sodium Bicarbonate (Sodium Bicarbonate Tab) 1,300 mg PO BID [facility] Last Admin: 03/17/17 09:00 Dose: 1,300 mg Vancomycin HCl (Vancocin (Oral/Rectal Use)) 250 mg PO Q8 [facility] Last Admin: 03/17/17 09:03 Dose: 250 mg - Labs Labs: 03/17/17 05:45 03/17/17 05:45 PT 12.1 SECONDS (9.6-11.2) H 03/13/17 05:15 INR 1.16 (0.92-1.08) H 03/13/17 05:15 APTT 29.6 SECONDS (23.3-32.5) 03/16/17 06:40 - Constitutional Appears: Non-toxic, No Acute Distress - ENT Exam ENT Exam: Mucous Membranes Moist - Respiratory Exam Respiratory Exam: Rales, NORMAL BREATHING PATTERN. absent: Rhonchi, Wheezes Additional comments: Un-changed fine crackles in left middle and lower lung field. Clear right lung to auscultation. - Cardiovascular Exam Cardiovascular Exam: REGULAR RHYTHM, +S1, +S2 - GI/Abdominal Exam GI & Abdominal Exam: Soft, Normal Bowel Sounds. absent: Distended, Tenderness Additional comments: Protuberant - Neurological Exam Neurological Exam: Alert, Awake, Oriented x3 - Skin Skin Exam: Dry, Intact, Normal Color Assessment and Plan - Assessment and Plan (Free Text) Assessment: 67 yo homeless M w PMHx of ANCA Vasculitis, DVT of RUE, CKD, HTN, etoh abuse, COPD, and CHF who was admitted to rule out ACS, PO intolerance likely related to a viral gastroenteritis that resolved, now with worsening kidney function most likely due to ANCA vasculitis, receiving treatment for positive C-diff toxin, Pneumonia. H/o positive TB QFT, pending for AFB sputum # 3. Plan: Hospital acquire Pneumonia -Still symptomatic with SOB and cough, but afebrile, improving -Pulmunology consult appreciated, Dr. Echols : wants to r/o active TB; respiratory isolation, sputum AFB x 3, continue current abx coverage -Chest CT scan showed small infiltrate at the lingula most likely due to a HCAP (recent hospitalization 01/2017) -c/w Vancomycin 250 mg PO Q8 day # 5. -c/w Zosyn 2.25 mg IV TID renal dose (approved by Nephrology) day #6 ( started on 03/11/17). Continue 2 more days of Zosyn. Complete 7 days total and then discontinue. -c/w Duoneb Q 8hours -c/w Oxygen 2 LPM in [place] -Vanco Trough on 03/13/17 was 11.2, Vanco peak was 11.2 -f/u Fugitell test. Pending CKD most likely secondary to ANCA vasculitis -Nephrology on board - Keep monitor kidney function with BMP -BUN/creatinine still improving, 61/3.9 -c/w Prednisone 10 mg PO daily -IV lasix decreased to lasix 40 IV BID -Vitamin D deficiency most likely secondary to CKD -Vitamin D 25 decreased : < 12.8 -Hypocalcemia most likely secondary to CKD -Start calcium acetate 667 mg TID with meals and weekly vit D 50,000 units -will consider starting cytoxan once c. diff infection resolve -Creatinine clearance, 24 hours: 12/low levels C-diff toxin positive -Improving, denies diarrheas -ID consult appreciated, Dr. Silver: c/w PO vancomycin and IV Flagyl for C-diff on day #5 -Consider discontinuation after Zosyn treatment is completed. Then change IV Flagyl to PO for C-diff treatment. -Continue contact precautions H/O Provoke DVT in RUE -Jluis/Onc consult appreciated, Dr. Bobo -H/H stable 9.3/26.8 -s/p Heparin drip -s/p 2 units of transfused PRBC -FOBT ordered today -repeat u/s right upper ex /: interval decrease in thrombus, mild amount of residual anterior wall thickening, vessel is patent, no appreciable acute thrombus note -longterm anticoagulation with Coumadin PO not recommended secondary to pt noncompliance with f/u and high risk for bleeding. Dr. Bobo agree for DVT prophylaxis for now Chronic anemia most likely secondary to CKD -Jluis/Onc consult appreciated, Dr. Bobo -no evidence of active bleeding, FOBT : negative -H/H trending up: 9.8/29.0 -S/p Procrit once Latent TB -Airborne isolation -AFB sputum stain negative X 3, pending cultures -Pulmunology consult appreciated, Dr. Echols -Positive QFT on 12/2016 -Isoniazid was stopped per TB center, awaiting confirmation H/O Reactive FTA-ABS -Asymptomatic at this time -F/U T. Pallidum antibodies titer ordered on 03/07/17.Pending Congestive Heart Failure -stable , improving SOB -Pro-BNP on 03/07/17 was 4410, but stable from previous baseline -c/w Furosemide 40 mg IVP BID -Increased Labetalol dose from 200 mg to 400 PO BID -not on ACEI/ARB due to SHERRY. HTN most likely secondary to CKD -Hydralazine 20 mg PO TID -Increased Labetalol dose from 200 mg to 400 PO BID -Continue monitoring GERD -Asymptomatic -Protonix 40 mg PO daily DVT prophylaxis Heparin 5000 units SC BID. Re-started on 03/15/17
--- NOTE | 2017-03-17 14:48 | CP.PCM.PN ---
Subjective - Date & Time of Evaluation Date of Evaluation: 03/17/17 Time of Evaluation: 13:00 - Subjective Subjective: F/U Lung Infiltrate Less cough, less chest congestion, GUIRDY improved. Objective - Vital Signs/Intake and Output Vital Signs (last 24 hours): Temp Pulse Resp BP Pulse Ox 97.8 F 68 18 163/83 H 98 03/17/17 12:16 03/17/17 12:16 03/17/17 12:16 03/17/17 12:16 03/17/17 12:16 - Medications Medications: Current Medications Albuterol/Ipratropium (Duoneb 3 Mg/0.5 Mg (3 Ml) Ud) 3 ml INH RQ8 [facility] Last Admin: 03/17/17 08:20 Dose: 3 ml Calcium Acetate (Phoslo) 667 mg PO WM [facility] Last Admin: 03/17/17 09:01 Dose: 667 mg Citalopram Hydrobromide (Celexa) 20 mg PO DAILY [facility] Last Admin: 03/17/17 09:01 Dose: 20 mg Clonidine HCl (Catapres) 0.3 mg PO BID [facility] Last Admin: 03/17/17 09:01 Dose: 0.3 mg Ergocalciferol (Drisdol 50,000 Intl Units Cap) 1 cap PO Q7D [facility] Last Admin: 03/15/17 09:10 Dose: 1 cap Ferrous Sulfate (Feosol) 325 mg PO DAILY [facility] Last Admin: 03/17/17 09:02 Dose: 325 mg Furosemide (Lasix) 40 mg IVP BID [facility] Stop: 03/21/17 10:00 Last Admin: 03/17/17 09:02 Dose: 40 mg Guaifenesin (Robitussin) 100 mg PO Q6 PRN PRN Reason: Cough Last Admin: 03/12/17 21:15 Dose: 100 mg Heparin Sodium (Porcine) (Heparin) 5,000 units SC Q12 [facility] PRN Reason: Protocol Last Admin: 03/17/17 09:02 Dose: 5,000 units Hydralazine HCl (Apresoline) 20 mg PO Q8H [facility] Last Admin: 03/17/17 09:05 Dose: 20 mg Piperacillin Sod/Tazobactam (Sod 2.25 gm/ Sodium Chloride) 100 mls @ 100 mls/ hr IVPB Q8 [facility] Last Admin: 03/17/17 09:04 Dose: 100 mls/hr Metronidazole (Flagyl 500mg/100ml Ns) 100 mls @ 100 mls/hr IVPB Q8 [facility] Last Admin: 03/17/17 09:03 Dose: 100 mls/hr Labetalol HCl (Trandate) 400 mg PO BID [facility] Last Admin: 03/17/17 09:02 Dose: 400 mg Lactic Acid (Lac-Hydrin 12% Lotion (225 G)) 1 applic TOP DAILY [facility] Last Admin: 03/17/17 09:04 Dose: 1 applic Pantoprazole Sodium (Protonix Ec Tab) 40 mg PO DAILY [facility] Last Admin: 03/17/17 09:01 Dose: 40 mg Prednisone (Prednisone Tab) 10 mg PO DAILY [facility] Last Admin: 03/17/17 09:02 Dose: 10 mg Sodium Bicarbonate (Sodium Bicarbonate Tab) 1,300 mg PO BID [facility] Last Admin: 03/17/17 09:00 Dose: 1,300 mg Vancomycin HCl (Vancocin (Oral/Rectal Use)) 250 mg PO Q8 [facility] Last Admin: 03/17/17 09:03 Dose: 250 mg - Labs Labs: 03/17/17 05:45 03/17/17 05:45 PT 12.1 SECONDS (9.6-11.2) H 03/13/17 05:15 INR 1.16 (0.92-1.08) H 03/13/17 05:15 APTT 29.6 SECONDS (23.3-32.5) 03/16/17 06:40 - Constitutional Appears: No Acute Distress - Head Exam Head Exam: NORMAL INSPECTION - Eye Exam Eye Exam: PERRL - ENT Exam ENT Exam: Normal Oropharynx - Neck Exam Neck Exam: Normal Inspection - Respiratory Exam Respiratory Exam: Rhonchi (scattered) - Cardiovascular Exam Cardiovascular Exam: REGULAR RHYTHM, Murmur (systolic, 1/6 LSB) - GI/Abdominal Exam GI & Abdominal Exam: Soft, Normal Bowel Sounds - Extremities Exam Extremities Exam: Pedal Edema - Back Exam Back Exam: NORMAL INSPECTION - Neurological Exam Neurological Exam: Alert, Oriented x3. absent: Motor Sensory Deficit - Psychiatric Exam Psychiatric exam: Normal Affect, Normal Mood - Skin Skin Exam: Warm Assessment and Plan (1) Lung infiltrate on CT Status: Acute (2) COPD (chronic obstructive pulmonary disease) Status: Chronic - Assessment and Plan (Free Text) Plan: Waiting to complete 3 Sputum AFB, continue Zosyn, Vanco and rest of Tx.
[2017-03-18] MEDS: Vancomycin 500 mg (Oral/Rectal USE) PO SCH ×3 (00:29→16:49)
[2017-03-18] MEDS: Albuterol-Ipratrop 3 mg / 0.5 (3 ml) UD INH SCH ×3 (00:45→16:23)
[2017-03-18] MEDS: metroNIDAZOLE 500mg/100ml NS 100 ML IVPB SCH ×3 (01:37→16:46)
[2017-03-18 07:43] LABS: BASO % 0.4 % (0.0-2.0); EOS # 0.1 K/uL (0.0-0.7); EOS % 0.9 % (0.0-4.0); HEMATOCRIT 27.7 % (35.0-51.0); LYMPH % 25.7 % (20.0-40.0); MEAN CELL VOLUME 86.8 fl (80.0-94.0); MEAN CORPUSCULAR HEMOGLOBIN 29.6 pg (27.0-31.0); MEAN CORPUSCULAR HGB CONC 34.1 g/dL (33.0-37.0); MEAN PLATELET VOLUME 7.1 fl (7.2-11.7); MONO # 0.7 K/uL (0.0-0.8); MONO % 8.8 % (0.0-10.0); NEUT % 64.2 % (50.0-75.0); RED CELL DISTRIBUTION WIDTH 17.5 % (11.5-14.5); WHITE BLOOD COUNT 7.8 K/uL (4.8-10.8)
--- NOTE | 2017-03-18 08:51 | CP.PCM.PN ---
Subjective - Date & Time of Evaluation Date of Evaluation: 03/18/17 Time of Evaluation: 08:15 - Subjective Subjective: Pt is being follow up for Hospital acquire pneumonia with shortness of breath, in airborne isolation r/o TB and contact isolation for C diff +. Overnight: afebrile, 02 saturation >96% RA Pt is laying in bed NAD with NC 2L states that he is breathing better, less coughing. He reports tolerating po well and voiding without difficulty. Pt states diarrhea has resolved. Denies fever, chill, nausea, vomiting, sob, chest pain, palpitation, headache, dizziness. Objective - Vital Signs/Intake and Output Vital Signs (last 24 hours): Temp Pulse Resp BP Pulse Ox 98.0 F 64 20 185/99 H 98 03/18/17 08:19 03/18/17 08:19 03/18/17 08:19 03/18/17 08:19 03/18/17 08:19 - Medications Medications: Current Medications Albuterol/Ipratropium (Duoneb 3 Mg/0.5 Mg (3 Ml) Ud) 3 ml INH RQ8 [facility] Last Admin: 03/18/17 00:45 Dose: 3 ml Calcium Acetate (Phoslo) 667 mg PO WM [facility] Last Admin: 03/17/17 18:52 Dose: 667 mg Citalopram Hydrobromide (Celexa) 20 mg PO DAILY [facility] Last Admin: 03/17/17 09:01 Dose: 20 mg Clonidine HCl (Catapres) 0.3 mg PO BID [facility] Last Admin: 03/17/17 16:34 Dose: 0.3 mg Ergocalciferol (Drisdol 50,000 Intl Units Cap) 1 cap PO Q7D [facility] Last Admin: 03/15/17 09:10 Dose: 1 cap Ferrous Sulfate (Feosol) 325 mg PO DAILY [facility] Last Admin: 03/17/17 09:02 Dose: 325 mg Furosemide (Lasix) 40 mg IVP BID [facility] Stop: 03/21/17 10:00 Last Admin: 03/17/17 16:34 Dose: 40 mg Guaifenesin (Robitussin) 100 mg PO Q6 PRN PRN Reason: Cough Last Admin: 03/12/17 21:15 Dose: 100 mg Heparin Sodium (Porcine) (Heparin) 5,000 units SC Q12 [facility] PRN Reason: Protocol Last Admin: 03/17/17 21:30 Dose: 5,000 units Hydralazine HCl (Apresoline) 20 mg PO Q8H [facility] Last Admin: 03/18/17 00:28 Dose: 20 mg Piperacillin Sod/Tazobactam (Sod 2.25 gm/ Sodium Chloride) 100 mls @ 100 mls/ hr IVPB Q8 [facility] Last Admin: 03/18/17 00:30 Dose: 100 mls/hr Metronidazole (Flagyl 500mg/100ml Ns) 100 mls @ 100 mls/hr IVPB Q8 [facility] Last Admin: 03/18/17 01:37 Dose: 100 mls/hr Labetalol HCl (Trandate) 400 mg PO BID [facility] Last Admin: 03/17/17 16:38 Dose: 400 mg Lactic Acid (Lac-Hydrin 12% Lotion (225 G)) 1 applic TOP DAILY [facility] Last Admin: 03/17/17 09:04 Dose: 1 applic Pantoprazole Sodium (Protonix Ec Tab) 40 mg PO DAILY [facility] Last Admin: 03/17/17 09:01 Dose: 40 mg Prednisone (Prednisone Tab) 10 mg PO DAILY [facility] Last Admin: 03/17/17 09:02 Dose: 10 mg Sodium Bicarbonate (Sodium Bicarbonate Tab) 1,300 mg PO BID [facility] Last Admin: 03/17/17 16:35 Dose: 1,300 mg Vancomycin HCl (Vancocin (Oral/Rectal Use)) 250 mg PO Q8 [facility] Last Admin: 03/18/17 00:29 Dose: 250 mg - Labs Labs: 03/18/17 06:00 03/17/17 05:45 PT 12.1 SECONDS (9.6-11.2) H 03/13/17 05:15 INR 1.16 (0.92-1.08) H 03/13/17 05:15 APTT 29.6 SECONDS (23.3-32.5) 03/16/17 06:40 - Constitutional Appears: Non-toxic, No Acute Distress - Head Exam Head Exam: NORMAL INSPECTION - Eye Exam Eye Exam: Normal appearance - ENT Exam ENT Exam: Mucous Membranes Moist - Neck Exam Neck Exam: Full ROM - Respiratory Exam Additional comments: fine crackles in lower left lung. improve air entery - Cardiovascular Exam Cardiovascular Exam: REGULAR RHYTHM, +S1, +S2. absent: Murmur - GI/Abdominal Exam GI & Abdominal Exam: Soft, Normal Bowel Sounds. absent: Distended, Tenderness - Extremities Exam Extremities Exam: Full ROM, Normal Capillary Refill, Pedal Edema (+1). absent: Calf Tenderness - Back Exam Back Exam: Full ROM - Neurological Exam Neurological Exam: Alert, Awake, CN II-XII Intact, Oriented x3 - Psychiatric Exam Psychiatric exam: Normal Affect, Normal Mood - Skin Skin Exam: Normal Color, Warm Assessment and Plan - Assessment and Plan (Free Text) Assessment: 67 yo homeless M w PMHx of ANCA Vasculitis, CKD, DVT of RUE, HTN, etoh abuse, COPD, and CHF who was admitted to rule out ACS and viral gastroenteritis that resolving and receiving treatment for positive C-diff toxin, Pneumonia. H/o positive TB QFT, AFB sputum x 3 neg. Plan: Hospital acquire Pneumonia -Chest CT scan showed small infiltrate at the lingula, recent hospitalization 2016 - afebrile, no leukocytosis, clinically improving -Pulmunology consult appreciated, Dr. Echols : wants to r/o active TB sputum AFB x 3 negative, discontinue isolation today -c/w Zosyn 2.25 mg IV TID renal dose (approved by Nephrology) day #6 ( started on 03/12/17) will complete 7 days total and then discontinue. -c/w Duoneb Q 8hours, Oxygen 2L NC prn -f/u Fugitell test C-diff toxin positive -Improving, denies diarrheas -ID consult appreciated, Dr. 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 Samano and associates -BUN/creatinine improving, 61/3.9 -c/w Prednisone 10 mg PO daily -continue management as per nephro H/O Provoke DVT in RUE -Heme/Onc consult appreciated, Dr. Bobo snf anticoagulation with Coumadin PO not recommended secondary to pt noncompliance and high risk for bleeding. DVT prophylaxis -repeat u/s right upper ex 03/11: interval decrease in thrombus, mild amount of residual anterior wall thickening, vessel is patent, no appreciable acute thrombus note -s/p Heparin drip secondary to drop of H:H -continue management as per heme/onc Chronic anemia most likely secondary to CKD -Heme/Onc consult appreciated, Dr. Bobo -s/p 2 units of transfused PRBC and epotien x1 -H/H stable .3/.8 -no evidence of active bleeding, FOBT : negative -H/H stable at 08/02 -f/u FOBT Latent TB -Pulmunology consult appreciated, Dr. Echols -Isoniazid was stopped per TB center secondary to elevated liver enzyme -Positive QFT on 12/2016 -AFB sputum stain negative X 3 -Airborne isolation discontinue H/O Reactive FTA-ABS -Asymptomatic at this time -F/U T. Pallidum antibodies titer Congestive Heart Failure -stable, improving SOB -Pro-BNP on 03/07/17 was 4410, but stable from previous baseline -c/w Furosemide 40 mg IVP BID and Labetalol dose from 200 mg to 400 PO BID -not on ACEI/ARB due to SHERRY. HTN most likely secondary to CKD -mild elevation -started Norvasc 10mg po once today -Hydralazine 20 mg PO TID -Labetalol 400 PO BID -will consider increasing dosage -Continue monitoring GERD -Asymptomatic -Protonix 40 mg PO daily DVT prophylaxis Heparin 5000 units SC BID.
[2017-03-18] MEDS: Pantoprazole 40 mg EC Tab PO SCH (09:55)
--- NOTE | 2017-03-18 11:56 | CP.PCM.PN ---
Subjective - Date & Time of Evaluation Date of Evaluation: 03/18/17 Time of Evaluation: 11:56 - Subjective Subjective: no events overnight Objective - Vital Signs/Intake and Output Vital Signs (last 24 hours): Temp Pulse Resp BP Pulse Ox 98 F 64 20 185/99 H 98 03/18/17 09:00 03/18/17 09:58 03/18/17 09:00 03/18/17 09:58 03/18/17 09:00 - Medications Medications: Current Medications Albuterol/Ipratropium (Duoneb 3 Mg/0.5 Mg (3 Ml) Ud) 3 ml INH RQ8 [facility] Last Admin: 03/18/17 08:53 Dose: 3 ml Amlodipine Besylate (Norvasc) 10 mg PO DAILY [facility] Calcium Acetate (Phoslo) 667 mg PO WM [facility] Last Admin: 03/18/17 09:55 Dose: 667 mg Citalopram Hydrobromide (Celexa) 20 mg PO DAILY [facility] Last Admin: 03/18/17 09:57 Dose: 20 mg Clonidine HCl (Catapres) 0.3 mg PO BID [facility] Last Admin: 03/18/17 09:55 Dose: 0.3 mg Ergocalciferol (Drisdol 50,000 Intl Units Cap) 1 cap PO Q7D [facility] Last Admin: 03/15/17 09:10 Dose: 1 cap Ferrous Sulfate (Feosol) 325 mg PO DAILY [facility] Last Admin: 03/18/17 09:58 Dose: 325 mg Furosemide (Lasix) 40 mg IVP BID [facility] Stop: 03/21/17 10:00 Last Admin: 03/18/17 09:56 Dose: 40 mg Guaifenesin (Robitussin) 100 mg PO Q6 PRN PRN Reason: Cough Last Admin: 03/12/17 21:15 Dose: 100 mg Heparin Sodium (Porcine) (Heparin) 5,000 units SC Q12 [facility] PRN Reason: Protocol Last Admin: 03/18/17 09:56 Dose: 5,000 units Hydralazine HCl (Apresoline) 20 mg PO Q8H [facility] Last Admin: 03/18/17 09:58 Dose: 20 mg Piperacillin Sod/Tazobactam (Sod 2.25 gm/ Sodium Chloride) 100 mls @ 100 mls/ hr IVPB Q8 [facility] Last Admin: 03/18/17 10:00 Dose: 100 mls/hr Metronidazole (Flagyl 500mg/100ml Ns) 100 mls @ 100 mls/hr IVPB Q8 [facility] Last Admin: 03/18/17 10:01 Dose: 100 mls/hr Labetalol HCl (Trandate) 400 mg PO BID [facility] Last Admin: 03/18/17 09:57 Dose: 400 mg Lactic Acid (Lac-Hydrin 12% Lotion (225 G)) 1 applic TOP DAILY [facility] Last Admin: 03/18/17 09:58 Dose: 1 applic Pantoprazole Sodium (Protonix Ec Tab) 40 mg PO DAILY [facility] Last Admin: 03/18/17 09:55 Dose: 40 mg Prednisone (Prednisone Tab) 10 mg PO DAILY [facility] Last Admin: 03/18/17 09:59 Dose: 10 mg Sodium Bicarbonate (Sodium Bicarbonate Tab) 1,300 mg PO BID [facility] Last Admin: 03/18/17 09:55 Dose: 1,300 mg Vancomycin HCl (Vancocin (Oral/Rectal Use)) 250 mg PO Q8 [facility] Last Admin: 03/18/17 09:59 Dose: 250 mg - Labs Labs: 03/18/17 06:00 03/17/17 05:45 PT 12.1 SECONDS (9.6-11.2) H 03/13/17 05:15 INR 1.16 (0.92-1.08) H 03/13/17 05:15 APTT 29.6 SECONDS (23.3-32.5) 03/16/17 06:40 - Constitutional Appears: Well, Non-toxic, No Acute Distress - Head Exam Head Exam: NORMAL INSPECTION - Eye Exam Eye Exam: Normal appearance - ENT Exam ENT Exam: Mucous Membranes Moist - Neck Exam Neck Exam: Normal Inspection - Respiratory Exam Respiratory Exam: NORMAL BREATHING PATTERN - Cardiovascular Exam Cardiovascular Exam: +S1, +S2 - GI/Abdominal Exam GI & Abdominal Exam: Soft - Neurological Exam Neurological Exam: Alert, Awake, Oriented x3 - Psychiatric Exam Psychiatric exam: Flat Affect - Skin Skin Exam: Dry, Warm Assessment and Plan - Assessment and Plan (Free Text) Plan: Crescentric GN ( pauci immune)/c difficile colitis/chf renal function stable lytes reviewed on abx for c diff infection awaiting infection to resolve before giving another dose of cytoxan
--- NOTE | 2017-03-18 13:51 | CP.PCM.PN ---
Subjective - Date & Time of Evaluation Date of Evaluation: 03/18/17 - Subjective Subjective: F/U L Lung Infiltrate. Productive cough improved, less chest congestion, minimal GUIDRY when coming out from the bathroom Objective - Vital Signs/Intake and Output Vital Signs (last 24 hours): Temp Pulse Resp BP Pulse Ox 98.1 F 68 20 151/82 H 98 03/18/17 12:19 03/18/17 12:19 03/18/17 12:19 03/18/17 12:19 03/18/17 12:19 - Medications Medications: Current Medications Albuterol/Ipratropium (Duoneb 3 Mg/0.5 Mg (3 Ml) Ud) 3 ml INH RQ8 [facility] Last Admin: 03/18/17 08:53 Dose: 3 ml Amlodipine Besylate (Norvasc) 10 mg PO DAILY [facility] Calcium Acetate (Phoslo) 667 mg PO WM [facility] Last Admin: 03/18/17 09:55 Dose: 667 mg Citalopram Hydrobromide (Celexa) 20 mg PO DAILY [facility] Last Admin: 03/18/17 09:57 Dose: 20 mg Clonidine HCl (Catapres) 0.3 mg PO BID [facility] Last Admin: 03/18/17 09:55 Dose: 0.3 mg Ergocalciferol (Drisdol 50,000 Intl Units Cap) 1 cap PO Q7D [facility] Last Admin: 03/15/17 09:10 Dose: 1 cap Ferrous Sulfate (Feosol) 325 mg PO DAILY [facility] Last Admin: 03/18/17 09:58 Dose: 325 mg Furosemide (Lasix) 40 mg IVP BID [facility] Stop: 03/21/17 10:00 Last Admin: 03/18/17 09:56 Dose: 40 mg Guaifenesin (Robitussin) 100 mg PO Q6 PRN PRN Reason: Cough Last Admin: 03/12/17 21:15 Dose: 100 mg Heparin Sodium (Porcine) (Heparin) 5,000 units SC Q12 [facility] PRN Reason: Protocol Last Admin: 03/18/17 09:56 Dose: 5,000 units Hydralazine HCl (Apresoline) 20 mg PO Q8H [facility] Last Admin: 03/18/17 09:58 Dose: 20 mg Piperacillin Sod/Tazobactam (Sod 2.25 gm/ Sodium Chloride) 100 mls @ 100 mls/ hr IVPB Q8 [facility] Last Admin: 03/18/17 10:00 Dose: 100 mls/hr Metronidazole (Flagyl 500mg/100ml Ns) 100 mls @ 100 mls/hr IVPB Q8 [facility] Last Admin: 03/18/17 10:01 Dose: 100 mls/hr Labetalol HCl (Trandate) 400 mg PO BID [facility] Last Admin: 03/18/17 09:57 Dose: 400 mg Lactic Acid (Lac-Hydrin 12% Lotion (225 G)) 1 applic TOP DAILY [facility] Last Admin: 03/18/17 09:58 Dose: 1 applic Pantoprazole Sodium (Protonix Ec Tab) 40 mg PO DAILY [facility] Last Admin: 03/18/17 09:55 Dose: 40 mg Prednisone (Prednisone Tab) 10 mg PO DAILY [facility] Last Admin: 03/18/17 09:59 Dose: 10 mg Sodium Bicarbonate (Sodium Bicarbonate Tab) 1,300 mg PO BID [facility] Last Admin: 03/18/17 09:55 Dose: 1,300 mg Vancomycin HCl (Vancocin (Oral/Rectal Use)) 250 mg PO Q8 [facility] Last Admin: 03/18/17 09:59 Dose: 250 mg - Labs Labs: 03/18/17 06:00 03/17/17 05:45 PT 12.1 SECONDS (9.6-11.2) H 03/13/17 05:15 INR 1.16 (0.92-1.08) H 03/13/17 05:15 APTT 29.6 SECONDS (23.3-32.5) 03/16/17 06:40 - Constitutional Appears: No Acute Distress - Head Exam Head Exam: NORMAL INSPECTION - Eye Exam Eye Exam: PERRL - ENT Exam ENT Exam: Normal Oropharynx - Neck Exam Neck Exam: Normal Inspection - Respiratory Exam Respiratory Exam: Rhonchi (b/l) - Cardiovascular Exam Cardiovascular Exam: REGULAR RHYTHM, Murmur (systolic) - GI/Abdominal Exam GI & Abdominal Exam: Soft, Normal Bowel Sounds - Extremities Exam Extremities Exam: Pedal Edema - Back Exam Back Exam: NORMAL INSPECTION - Neurological Exam Neurological Exam: Alert, Oriented x3. absent: Motor Sensory Deficit - Psychiatric Exam Psychiatric exam: Normal Mood - Skin Skin Exam: Warm Assessment and Plan (1) Lung infiltrate on CT Status: Acute (2) COPD (chronic obstructive pulmonary disease) Status: Chronic - Assessment and Plan (Free Text) Plan: F/U Sputum AFB, continue Vanco, and rest of Tx.
[2017-03-19] MEDS: Albuterol-Ipratrop 3 mg / 0.5 (3 ml) UD INH SCH ×3 (00:19→15:55)
[2017-03-19] MEDS: metroNIDAZOLE 500mg/100ml NS 100 ML IVPB SCH ×3 (00:29→17:55)
[2017-03-19] MEDS: Vancomycin 500 mg (Oral/Rectal USE) PO SCH ×3 (00:34→17:56)
[2017-03-19] MEDS: Pantoprazole 40 mg EC Tab PO SCH (09:04)
--- NOTE | 2017-03-19 09:35 | CP.PCM.PN ---
Subjective - Date & Time of Evaluation Date of Evaluation: 03/19/17 Time of Evaluation: 08:10 - Subjective Subjective: Patient is being follow up for Hospital acquire pneumonia with shortness of breath, and contact isolation for positive C diff toxin. Patient is laying in bed in no acute distress, with NC 2LPM, had an uneventful night. Patient reports that is breathing with less SOB than yesterday, cough is improving as well. States one soft stool this morning, but denies blood in stool. Voiding without any complains. Denies chest pain, nausea, vomiting, chills, abdominal pain, or other complains. Objective - Vital Signs/Intake and Output Vital Signs (last 24 hours): Temp Pulse Resp BP Pulse Ox 97.8 F 81 18 152/88 H 93 L 03/19/17 04:58 03/19/17 09:09 03/19/17 04:58 03/19/17 09:09 03/19/17 04:58 Intake and Output: 03/19/17 03/19/17 06:59 18:59 Intake Total 540 Output Total 300 Balance 240 - Medications Medications: Current Medications Albuterol/Ipratropium (Duoneb 3 Mg/0.5 Mg (3 Ml) Ud) 3 ml INH RQ8 [facility] Last Admin: 03/19/17 08:00 Dose: 3 ml Amlodipine Besylate (Norvasc) 10 mg PO DAILY [facility] Last Admin: 03/19/17 09:09 Dose: 10 mg Calcium Acetate (Phoslo) 667 mg PO WM [facility] Last Admin: 03/19/17 09:09 Dose: 667 mg Citalopram Hydrobromide (Celexa) 20 mg PO DAILY [facility] Last Admin: 03/19/17 09:07 Dose: 20 mg Clonidine HCl (Catapres) 0.3 mg PO BID [facility] Last Admin: 03/19/17 09:07 Dose: 0.3 mg Ergocalciferol (Drisdol 50,000 Intl Units Cap) 1 cap PO Q7D [facility] Last Admin: 03/15/17 09:10 Dose: 1 cap Ferrous Sulfate (Feosol) 325 mg PO DAILY [facility] Last Admin: 03/19/17 09:05 Dose: 325 mg Furosemide (Lasix) 40 mg IVP BID [facility] Stop: 03/21/17 10:00 Last Admin: 03/19/17 09:08 Dose: 40 mg Guaifenesin (Robitussin) 100 mg PO Q6 PRN PRN Reason: Cough Last Admin: 03/12/17 21:15 Dose: 100 mg Heparin Sodium (Porcine) (Heparin) 5,000 units SC Q12 [facility] PRN Reason: Protocol Last Admin: 03/19/17 09:07 Dose: 5,000 units Hydralazine HCl (Apresoline) 20 mg PO Q8H [facility] Last Admin: 03/19/17 09:09 Dose: 20 mg Piperacillin Sod/Tazobactam (Sod 2.25 gm/ Sodium Chloride) 100 mls @ 100 mls/ hr IVPB Q8 [facility] Last Admin: 03/19/17 09:03 Dose: 100 mls/hr Metronidazole (Flagyl 500mg/100ml Ns) 100 mls @ 100 mls/hr IVPB Q8 [facility] Last Admin: 03/19/17 09:04 Dose: 100 mls/hr Labetalol HCl (Trandate) 400 mg PO Q12 [facility] Last Admin: 03/19/17 09:07 Dose: 400 mg Lactic Acid (Lac-Hydrin 12% Lotion (225 G)) 1 applic TOP DAILY [facility] Last Admin: 03/19/17 09:08 Dose: 1 applic Pantoprazole Sodium (Protonix Ec Tab) 40 mg PO DAILY [facility] Last Admin: 03/19/17 09:04 Dose: 40 mg Prednisone (Prednisone Tab) 10 mg PO DAILY [facility] Last Admin: 03/19/17 09:04 Dose: 10 mg Sodium Bicarbonate (Sodium Bicarbonate Tab) 1,300 mg PO BID [facility] Last Admin: 03/19/17 09:04 Dose: 1,300 mg Vancomycin HCl (Vancocin (Oral/Rectal Use)) 250 mg PO Q8 [facility] Last Admin: 03/19/17 09:05 Dose: 250 mg - Labs Labs: 03/18/17 06:00 03/17/17 05:45 PT 12.1 SECONDS (9.6-11.2) H 03/13/17 05:15 INR 1.16 (0.92-1.08) H 03/13/17 05:15 APTT 29.6 SECONDS (23.3-32.5) 03/16/17 06:40 - Constitutional Appears: Non-toxic, No Acute Distress - ENT Exam ENT Exam: Mucous Membranes Moist - Respiratory Exam Respiratory Exam: Clear to Ausculation Bilateral (Right lung clear to auscultation. ), Rales, NORMAL BREATHING PATTERN. absent: Rhonchi (very mild fine crackles, diffuse to auscultation in left lowe lung), Wheezes - Cardiovascular Exam Cardiovascular Exam: REGULAR RHYTHM, +S1, +S2 - GI/Abdominal Exam GI & Abdominal Exam: Soft, Normal Bowel Sounds. absent: Guarding, Rigid, Tenderness Additional comments: protuberant - Extremities Exam Extremities Exam: absent: Calf Tenderness Additional comments: Stable pitting 2+ bilateral edema in lower extremities below knees. - Neurological Exam Neurological Exam: Alert, Awake, Oriented x3 - Psychiatric Exam Psychiatric exam: Normal Affect, Normal Mood - Skin Skin Exam: Dry, Intact, Normal Color Assessment and Plan - Assessment and Plan (Free Text) Assessment: 67 yo homeless M w PMHx of ANCA Vasculitis, CKD, DVT of RUE, HTN, etoh abuse, COPD, and CHF who was admitted to rule out ACS and viral gastroenteritis that resolving and receiving treatment for positive C-diff toxin, Pneumonia. H/o positive TB QFT, AFB sputum x 3 neg. Plan: Hospital acquire Pneumonia -Chest CT scan showed small infiltrate at the lingula, recent hospitalization 2016 - afebrile, no leukocytosis, clinically improving -Pulmunology consult appreciated, Dr. Echols : wants to r/o active TB sputum AFB x 3 negative, discontinue isolation today -c/w Zosyn 2.25 mg IV TID renal dose (approved by Nephrology) day #7 ( started on 03/12/17) will complete 7 days total and then discontinue. Consider discontinue today. -c/w Duoneb Q 8hours, Oxygen 2L NC prn -f/u Fugitell test -Anticipated DC tomorrow. 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 -Call Nephrology tomorrow for discharge instructions C-diff toxin positive -Improving, denies diarrheas -ID consult appreciated, Dr. Silver: c/w PO vancomycin and IV Flagyl for C-diff on day #7 (renal dose) -Continue contact precautions. 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 Samano and associates -BUN/creatinine improving, 61/3.9 -c/w Prednisone 10 mg PO daily -continue management as per nephro H/O Provoke DVT in RUE -Heme/Onc consult appreciated, Dr. Bobo senior living anticoagulation with Coumadin PO not recommended secondary to pt noncompliance and high risk for bleeding. DVT prophylaxis -repeat u/s right upper ex 03/11: interval decrease in thrombus, mild amount of residual anterior wall thickening, vessel is patent, no appreciable acute thrombus note -s/p Heparin drip secondary to drop of H:H -continue management as per heme/onc -Consider Aspirin 81 mg as DC medication Chronic anemia most likely secondary to CKD -Heme/Onc consult appreciated, Dr. Bobo -s/p 2 units of transfused PRBC and epotien x1 -H/H stable ./.7 -no evidence of active bleeding, FOBT : negative -H/H stable at 08/02 -f/u FOBT Latent TB -Pulmunology consult appreciated, Dr. Echols -Isoniazid was stopped per TB center secondary to elevated liver enzyme -Positive QFT on 12/2016 -AFB sputum stain negative X 3 -Airborne isolation discontinue H/O Reactive FTA-ABS -Asymptomatic at this time -F/U T. Pallidum antibodies titer Congestive Heart Failure -stable, improving SOB -Pro-BNP on 03/07/17 was 4410, but stable from previous baseline -c/w Furosemide 40 mg IVP BID and Labetalol dose from 200 mg to 400 PO BID -not on ACEI/ARB due to SHERRY. HTN most likely secondary to CKD -mild elevation -started Norvasc 10mg po once today -Hydralazine 20 mg PO TID -Labetalol 400 PO BID -will consider increasing dosage -Continue monitoring GERD -Asymptomatic -Protonix 40 mg PO daily DVT prophylaxis Heparin 5000 units SC BID.
--- NOTE | 2017-03-19 17:03 | CP.PCM.PN ---
Subjective - Date & Time of Evaluation Date of Evaluation: 03/19/17 Time of Evaluation: 12:10 - Subjective Subjective: F/U L Lung infiltrate. Pt with occasional dry cough, no SOB, no GUIDRY, feels with not chest congested. Objective - Vital Signs/Intake and Output Vital Signs (last 24 hours): Temp Pulse Resp BP Pulse Ox 97.5 F L 109 H 18 132/80 96 03/19/17 16:00 03/19/17 16:00 03/19/17 16:00 03/19/17 16:00 03/19/17 16:00 Intake and Output: 03/19/17 03/19/17 06:59 18:59 Intake Total 540 Output Total 300 Balance 240 - Medications Medications: Current Medications Albuterol/Ipratropium (Duoneb 3 Mg/0.5 Mg (3 Ml) Ud) 3 ml INH RQ8 [facility]S [facility] 234 BEDS AT [facility] Last Admin: 03/19/17 15:55 Dose: 3 ml Amlodipine Besylate (Norvasc) 10 mg PO DAILY COUNTS INCLUDE 234 BEDS AT THE [facility] Last Admin: 03/19/17 09:09 Dose: 10 mg Calcium Acetate (Phoslo) 667 mg PO WM COUNTS INCLUDE 234 BEDS AT THE [facility] Last Admin: 03/19/17 12:54 Dose: 667 mg Citalopram Hydrobromide (Celexa) 20 mg PO DAILY COUNTS INCLUDE 234 BEDS AT THE [facility] Last Admin: 03/19/17 09:07 Dose: 20 mg Clonidine HCl (Catapres) 0.3 mg PO BID COUNTS INCLUDE 234 BEDS AT THE [facility] Last Admin: 03/19/17 09:07 Dose: 0.3 mg Ergocalciferol (Drisdol 50,000 Intl Units Cap) 1 cap PO Q7D COUNTS INCLUDE 234 BEDS AT THE [facility] Last Admin: 03/15/17 09:10 Dose: 1 cap Ferrous Sulfate (Feosol) 325 mg PO DAILY COUNTS INCLUDE 234 BEDS AT [facility] Last Admin: 03/19/17 09:05 Dose: 325 mg Furosemide (Lasix) 40 mg IVP BID COUNTS INCLUDE 234 BEDS AT THE [facility] Stop: 03/21/17 10:00 Last Admin: 03/19/17 09:08 Dose: 40 mg Guaifenesin (Robitussin) 100 mg PO Q6 PRN PRN Reason: Cough Last Admin: 03/12/17 21:15 Dose: 100 mg Heparin Sodium (Porcine) (Heparin) 5,000 units SC Q12 [facility] PRN Reason: Protocol Last Admin: 03/19/17 09:07 Dose: 5,000 units Hydralazine HCl (Apresoline) 20 mg PO Q8H COUNTS INCLUDE 234 BEDS AT THE [facility] Last Admin: 03/19/17 09:09 Dose: 20 mg Metronidazole (Flagyl 500mg/100ml Ns) 100 mls @ 100 mls/hr IVPB Q8 COUNTS INCLUDE 234 BEDS AT THE [facility] Last Admin: 03/19/17 09:04 Dose: 100 mls/hr Labetalol HCl (Trandate) 400 mg PO Q12 COUNTS INCLUDE 234 BEDS AT [facility] Last Admin: 03/19/17 09:07 Dose: 400 mg Lactic Acid (Lac-Hydrin 12% Lotion (225 G)) 1 applic TOP DAILY COUNTS INCLUDE 234 BEDS AT [facility] Last Admin: 03/19/17 09:08 Dose: 1 applic Pantoprazole Sodium (Protonix Ec Tab) 40 mg PO DAILY COUNTS INCLUDE 234 BEDS AT THE [facility] Last Admin: 03/19/17 09:04 Dose: 40 mg Prednisone (Prednisone Tab) 10 mg PO DAILY COUNTS INCLUDE 234 BEDS AT [facility] Last Admin: 03/19/17 09:04 Dose: 10 mg Fluticasone/Salmeterol (Advair Diskus 500/50) 1 puff IH Q12 COUNTS INCLUDE 234 BEDS AT THE [facility] Sodium Bicarbonate (Sodium Bicarbonate Tab) 1,300 mg PO BID COUNTS INCLUDE 234 BEDS AT THE [facility] Last Admin: 03/19/17 09:04 Dose: 1,300 mg Vancomycin HCl (Vancocin (Oral/Rectal Use)) 250 mg PO Q8 COUNTS INCLUDE 234 BEDS AT [facility] Last Admin: 03/19/17 09:05 Dose: 250 mg - Labs Labs: 03/18/17 06:00 03/17/17 05:45 PT 12.1 SECONDS (9.6-11.2) H 03/13/17 05:15 INR 1.16 (0.92-1.08) H 03/13/17 05:15 APTT 29.6 SECONDS (23.3-32.5) 03/16/17 06:40 - Constitutional Appears: No Acute Distress - Head Exam Head Exam: NORMAL INSPECTION - Eye Exam Eye Exam: PERRL - ENT Exam ENT Exam: Normal Oropharynx - Neck Exam Neck Exam: Normal Inspection - Respiratory Exam Respiratory Exam: Rhonchi (b/l scattered) - Cardiovascular Exam Cardiovascular Exam: REGULAR RHYTHM, Murmur (systolic 1/6 LSB) - GI/Abdominal Exam GI & Abdominal Exam: Soft, Normal Bowel Sounds - Extremities Exam Extremities Exam: Pedal Edema - Back Exam Back Exam: NORMAL INSPECTION - Neurological Exam Neurological Exam: Alert, Oriented x3. absent: Motor Sensory Deficit - Psychiatric Exam Psychiatric exam: Normal Mood - Skin Skin Exam: Warm Assessment and Plan (1) Lung infiltrate on CT Status: Acute (2) COPD (chronic obstructive pulmonary disease) Status: Chronic - Assessment and Plan (Free Text) Assessment: Sputum AFB negative, new Lung L lung infiltrate 2d to HCAP , previous RUL infiltrate from previous CT -28 was improved , COPD improved , f/u CT Chest 5- 14 Plan: Continue Duoneb, Prednisone, Advair and rest of Tx.
[2017-03-19] MEDS: Fluticasone-Salmeterol 500-50mcg Diskus IH SCH (21:58)
[2017-03-20] MEDS: Albuterol-Ipratrop 3 mg / 0.5 (3 ml) UD INH SCH ×3 (00:19→15:26)
[2017-03-20] MEDS: metroNIDAZOLE 500mg/100ml NS 100 ML IVPB SCH ×3 (01:54→17:29)
[2017-03-20] MEDS: Vancomycin 500 mg (Oral/Rectal USE) PO SCH ×3 (01:58→17:26)
[2017-03-20] MEDS: Fluticasone-Salmeterol 500-50mcg Diskus IH SCH ×2 (09:00→20:37)
[2017-03-20] MEDS: Pantoprazole 40 mg EC Tab PO SCH (09:05)
--- NOTE | 2017-03-20 09:29 | CP.PCM.PN ---
Subjective - Date & Time of Evaluation Date of Evaluation: 03/20/17 Time of Evaluation: 07:30 - Subjective Subjective: Patient is being follow up for Hospital acquire pneumonia , and positive C diff toxin infection. Patient was seen and examined at bedside this morning. Patient reports he feels better this morning, SOB and cough continue improving. Patient was seen lying in bed, in no acute distress and breathing comfortable in room air. Reports one soft non bloody stool this morning. Voiding without any complains. Denies chest pain, nausea, vomiting, abdominal pain or other complains at this evaluation. Objective - Vital Signs/Intake and Output Vital Signs (last 24 hours): Temp Pulse Resp BP Pulse Ox 97.9 F 108 H 18 172/97 H 96 03/20/17 08:03 03/20/17 09:05 03/20/17 08:03 03/20/17 09:05 03/20/17 08:03 - Medications Medications: Current Medications Albuterol/Ipratropium (Duoneb 3 Mg/0.5 Mg (3 Ml) Ud) 3 ml INH RQ8 [facility] Last Admin: 03/20/17 07:44 Dose: 3 ml Amlodipine Besylate (Norvasc) 10 mg PO DAILY [facility] Last Admin: 03/20/17 09:03 Dose: 10 mg Calcium Acetate (Phoslo) 667 mg PO WM [facility] Last Admin: 03/20/17 08:30 Dose: 667 mg Citalopram Hydrobromide (Celexa) 20 mg PO DAILY [facility] Last Admin: 03/20/17 09:02 Dose: 20 mg Clonidine HCl (Catapres) 0.3 mg PO BID [facility] Last Admin: 03/20/17 09:01 Dose: 0.3 mg Ergocalciferol (Drisdol 50,000 Intl Units Cap) 1 cap PO Q7D [facility] Last Admin: 03/15/17 09:10 Dose: 1 cap Ferrous Sulfate (Feosol) 325 mg PO DAILY [facility] Last Admin: 03/20/17 09:02 Dose: 325 mg Furosemide (Lasix) 40 mg IVP BID [facility] Stop: 03/21/17 10:00 Last Admin: 03/20/17 09:03 Dose: 40 mg Guaifenesin (Robitussin) 100 mg PO Q6 PRN PRN Reason: Cough Last Admin: 03/12/17 21:15 Dose: 100 mg Heparin Sodium (Porcine) (Heparin) 5,000 units SC Q12 [facility] PRN Reason: Protocol Last Admin: 03/20/17 09:02 Dose: 5,000 units Hydralazine HCl (Apresoline) 20 mg PO Q8H [facility] Last Admin: 03/20/17 09:00 Dose: 20 mg Metronidazole (Flagyl 500mg/100ml Ns) 100 mls @ 100 mls/hr IVPB Q8 [facility] Last Admin: 03/20/17 09:02 Dose: 100 mls/hr Labetalol HCl (Trandate) 400 mg PO Q12 [facility] Last Admin: 03/20/17 09:05 Dose: 400 mg Lactic Acid (Lac-Hydrin 12% Lotion (225 G)) 1 applic TOP DAILY [facility] Last Admin: 03/20/17 09:03 Dose: 1 applic Pantoprazole Sodium (Protonix Ec Tab) 40 mg PO DAILY [facility] Last Admin: 03/20/17 09:05 Dose: 40 mg Prednisone (Prednisone Tab) 10 mg PO DAILY [facility] Last Admin: 03/20/17 09:04 Dose: 10 mg Fluticasone/Salmeterol (Advair Diskus 500/50) 1 puff IH Q12 [facility] Last Admin: 03/20/17 09:00 Dose: 1 puff Sodium Bicarbonate (Sodium Bicarbonate Tab) 1,300 mg PO BID [facility] Last Admin: 03/20/17 09:05 Dose: 1,300 mg Vancomycin HCl (Vancocin (Oral/Rectal Use)) 250 mg PO Q8 [facility] Last Admin: 03/20/17 09:06 Dose: 250 mg - Labs Labs: 03/18/17 06:00 03/17/17 05:45 PT 12.1 SECONDS (9.6-11.2) H 03/13/17 05:15 INR 1.16 (0.92-1.08) H 03/13/17 05:15 APTT 29.6 SECONDS (23.3-32.5) 03/16/17 06:40 - Constitutional Appears: Non-toxic, No Acute Distress - ENT Exam ENT Exam: Mucous Membranes Moist - Respiratory Exam Respiratory Exam: Clear to Ausculation Bilateral, NORMAL BREATHING PATTERN - Cardiovascular Exam Cardiovascular Exam: REGULAR RHYTHM - Extremities Exam Extremities Exam: absent: Calf Tenderness Additional comments: Bilateral pitting 2+ edema below knees, improving. Amanda's sign negative bilateral - Neurological Exam Neurological Exam: Alert, Awake, Oriented x3 - Skin Skin Exam: Dry, Intact, Normal Color Assessment and Plan - Assessment and Plan (Free Text) Assessment: 67 yo homeless M w PMHx of ANCA Vasculitis, CKD, DVT of RUE, HTN, etoh abuse, COPD, and CHF who was admitted to rule out ACS and viral gastroenteritis that resolving and receiving treatment for positive C-diff toxin, Pneumonia. H/o positive TB QFT, AFB sputum x 3 neg. Plan: Hospital acquire Pneumonia -Chest CT scan showed small infiltrate at the lingula, recent hospitalization 2016 - afebrile, no leukocytosis, clinically improving -Pulmunology consult appreciated, Dr. Echols : wants to r/o active TB sputum AFB x 3 negative, discontinue isolation today -c/w Duoneb Q 8hours, Oxygen 2L NC prn -f/u Fugitell test -S/P Zosyn 2.25 mg IV TID renal dose for 7 days. -Anticipated DC after 3 days of abx treatment for c-diff infection. 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 -Call Nephrology for plan after DC C-diff toxin positive -Improving, denies diarrheas -ID consult appreciated, Dr. Silver: F/U recommendations for ABx after discharge c/w PO vancomycin and IV Flagyl for C-diff on day #8 (renal dose). ID recommendations to continue 3 mores days of current antibiotic regimen. -s/p Flagyl PO 03/10/17-03/12/17 -Continue contact precautions. 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 DVT prophylaxis -repeat u/s right upper ex 03/11: interval decrease in thrombus, mild amount of residual anterior wall thickening, vessel is patent, no appreciable acute thrombus note -s/p Heparin drip secondary to drop of H:H -continue management as per heme/onc -Consider Aspirin 81 mg as DC medication Chronic anemia most likely secondary to CKD -Heme/Onc consult appreciated, Dr. Bobo -s/p 2 units of transfused PRBC and epotien x1 -H/H stable .03/02.7 -no evidence of active bleeding, FOBT : negative -H/H stable at 08/02 -f/u FOBT Latent TB -Pulmunology consult appreciated, Dr. Echols -Isoniazid was stopped per TB center secondary to elevated liver enzyme -Positive QFT on 12/2016 -AFB sputum stain negative X 3 -Airborne isolation discontinue H/O Reactive FTA-ABS -Asymptomatic at this time -F/U T. Pallidum antibodies titer Congestive Heart Failure -stable, improving SOB -Pro-BNP on 03/07/17 was 4410, but stable from previous baseline -c/w Furosemide 40 mg IVP BID and Labetalol dose from 200 mg to 400 PO BID -not on ACEI/ARB due to SHERRY. HTN most likely secondary to CKD -mild elevation -started Norvasc 10mg po daily on 03/18/17. F/U lower extremities edema. -Hydralazine 20 mg PO TID -Labetalol 400 PO BID -will consider increasing dosage -Continue monitoring GERD -Asymptomatic -Protonix 40 mg PO daily DVT prophylaxis Heparin 5000 units SC BID.
[2017-03-20 10:39] LABS: BASO # 0.1 K/uL (0.0-0.2); BASO % 1.3 % (0.0-2.0); EOS # 0.1 K/uL (0.0-0.7); EOS % 1.1 % (0.0-4.0); HEMATOCRIT 27.4 % (35.0-51.0); LYMPH # 1.9 K/uL (1.0-4.3); LYMPH % 21.8 % (20.0-40.0); MEAN CELL VOLUME 88.1 fl (80.0-94.0); MEAN CORPUSCULAR HEMOGLOBIN 29.7 pg (27.0-31.0); MEAN CORPUSCULAR HGB CONC 33.7 g/dL (33.0-37.0); MEAN PLATELET VOLUME 6.8 fl (7.2-11.7); MONO # 0.6 K/uL (0.0-0.8); MONO % 6.9 % (0.0-10.0); NEUT % 68.9 % (50.0-75.0); NRBC % 0.1 % (0.0-0.0); RED CELL DISTRIBUTION WIDTH 17.6 % (11.5-14.5); WHITE BLOOD COUNT 8.7 K/uL (4.8-10.8)
--- NOTE | 2017-03-20 10:56 | CT ---
PROCEDURE: CT Chest without contrast HISTORY: PNA COMPARISON: 03/09/2017 TECHNIQUE: Contiguous axial images were obtained through the chest without intravenous contrast enhancement. Sagittal and coronal reconstructions were performed. Radiation dose (DLP): 483 mGy-cm. This CT exam was performed using one or more of the following dose reduction techniques: Automated exposure control, adjustment of the mA and/or kV according to patient size, and/or use of iterative reconstruction technique. FINDINGS: LUNGS: Worsening bilateral pleural effusions with compressive atelectasis at the lung bases. Additional patchy bilateral interstitial infiltrates/opacities. MEDIASTINUM: Unremarkable thoracic aorta. No aneurysm. Normal sized heart. Minimal pericardial effusion. Main pulmonary artery unremarkable. No vascular congestion. No lymphadenopathy. PLEURA: See above. BONES: No fracture. No destructive lesion. UPPER ABDOMEN: Grossly unremarkable. OTHER FINDINGS: None. IMPRESSION: Worsening bilateral pleural effusions with compressive atelectasis at the lung bases. Additional patchy bilateral interstitial infiltrates/opacities.
[2017-03-20 11:07] LABS: CALCIUM 6.7 mg/dL (8.4-10.2); PHOSPHOROUS 4.7 mg/dl (2.5-4.5); POTASSIUM 3.6 MMOL/L (3.6-5.0)
--- NOTE | 2017-03-20 13:23 | CP.PCM.PN ---
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 Hypertension control with meds as ordered. Patient not on ACEI/ARB due to SHERRY. continue with current BP regimen Monitor Input/Output, daily weights and renal function with basic metabolic panel while here continue with sodium bicarb supplement. change to lasix 40 PO bid . continue with calcium acetate 667 mg TID with meals and weekly vit D 50,000 units x 8 weeks will hold dosing cytoxan until acute infection resolves. he had got 2 doses before. likely will assess as outpt Dose meds/antibiotics for reduced GFR. Avoid fleets enema/magnesium based laxatives. Avoid nephrotoxins/NSAIDs/ iodinated contrast (unless needed emergently) Further work up as per primary team. pt being planned for d/c home. stable from renal perspective. Thanks for allowing me to participate in care of your patient. follow up in office 3-5 days after discharge. Please call if any Qs Dr Darren Samano Office: [phone] Subjective: Noted events overnight. Patients feels better. much improved leg swelling and SOB. Denies chest pain, palpitation. denies urinary complaints. Physical Examination: General Appearance: in no acute respiratory distress, co-operative. Vitals reviewed and noted as below Lungs: Improved respiratory rate/effort. Breath sounds bilateral clearer Heart: Normal rate. s1s2 normal. No rub or gallop. Extremities: trace edema. Neurological: Patient is alert, awake and oriented to person, place and time. No focal deficit. Strength bilateral appropriate and equal Skin: Warm and dry. Normal turgor. No rash. Palpitation: Normal elasticity for age Abdomen: Abdomen is soft. Bowel sounds +. There is no abdominal tenderness, no guarding/rigidity or organomegaly : kidney or bladder not palpable Labs/imaging reviewed. Past medical history, past surgical history, family history, social history, allergy reviewed Objective - Vital Signs/Intake and Output Vital Signs (last 24 hours): Temp Pulse Resp BP Pulse Ox 98.3 F 83 16 150/83 92 L 03/20/17 12:00 03/20/17 12:00 03/20/17 12:00 03/20/17 12:00 03/20/17 12:00 - Medications Medications: Current Medications Albuterol/Ipratropium (Duoneb 3 Mg/0.5 Mg (3 Ml) Ud) 3 ml INH RQ8 [facility] Last Admin: 03/20/17 07:44 Dose: 3 ml Amlodipine Besylate (Norvasc) 10 mg PO DAILY [facility] Last Admin: 03/20/17 09:03 Dose: 10 mg Calcium Acetate (Phoslo) 667 mg PO WM [facility] Last Admin: 03/20/17 11:21 Dose: 667 mg Citalopram Hydrobromide (Celexa) 20 mg PO DAILY [facility] Last Admin: 03/20/17 09:02 Dose: 20 mg Clonidine HCl (Catapres) 0.3 mg PO BID [facility] Last Admin: 03/20/17 09:01 Dose: 0.3 mg Ergocalciferol (Drisdol 50,000 Intl Units Cap) 1 cap PO Q7D [facility] Last Admin: 03/15/17 09:10 Dose: 1 cap Ferrous Sulfate (Feosol) 325 mg PO DAILY [facility] Last Admin: 03/20/17 09:02 Dose: 325 mg Furosemide (Lasix) 40 mg IVP BID [facility] Stop: 03/21/17 10:00 Last Admin: 03/20/17 09:03 Dose: 40 mg Guaifenesin (Robitussin) 100 mg PO Q6 PRN PRN Reason: Cough Last Admin: 03/12/17 21:15 Dose: 100 mg Heparin Sodium (Porcine) (Heparin) 5,000 units SC Q12 [facility] PRN Reason: Protocol Last Admin: 03/20/17 09:02 Dose: 5,000 units Hydralazine HCl (Apresoline) 20 mg PO Q8H [facility] Last Admin: 03/20/17 09:00 Dose: 20 mg Metronidazole (Flagyl 500mg/100ml Ns) 100 mls @ 100 mls/hr IVPB Q8 [facility] Last Admin: 03/20/17 09:02 Dose: 100 mls/hr Labetalol HCl (Trandate) 400 mg PO Q12 [facility] Last Admin: 03/20/17 09:05 Dose: 400 mg Lactic Acid (Lac-Hydrin 12% Lotion (225 G)) 1 applic TOP DAILY [facility] Last Admin: 03/20/17 09:03 Dose: 1 applic Pantoprazole Sodium (Protonix Ec Tab) 40 mg PO DAILY [facility] Last Admin: 03/20/17 09:05 Dose: 40 mg Prednisone (Prednisone Tab) 10 mg PO DAILY [facility] Last Admin: 03/20/17 09:04 Dose: 10 mg Fluticasone/Salmeterol (Advair Diskus 500/50) 1 puff IH Q12 [facility] Last Admin: 03/20/17 09:00 Dose: 1 puff Sodium Bicarbonate (Sodium Bicarbonate Tab) 1,300 mg PO BID [facility] Last Admin: 03/20/17 09:05 Dose: 1,300 mg Vancomycin HCl (Vancocin (Oral/Rectal Use)) 250 mg PO Q8 [facility] Last Admin: 03/20/17 09:06 Dose: 250 mg - Labs Labs: 03/20/17 10:30 03/20/17 10:30 PT 12.1 SECONDS (9.6-11.2) H 03/13/17 05:15 INR 1.16 (0.92-1.08) H 03/13/17 05:15 APTT 29.6 SECONDS (23.3-32.5) 03/16/17 06:40
--- NOTE | 2017-03-20 16:44 | CP.PCM.PN ---
Subjective - Date & Time of Evaluation Date of Evaluation: 03/20/17 Time of Evaluation: 09:20 - Subjective Subjective: F/U L Lung infiltrate. Pt with no SOB, no GUIDRY, no cough. Objective - Vital Signs/Intake and Output Vital Signs (last 24 hours): Temp Pulse Resp BP Pulse Ox 97.9 F 86 20 148/86 96 03/20/17 15:31 03/20/17 15:31 03/20/17 15:31 03/20/17 15:31 03/20/17 15:31 - Medications Medications: Current Medications Albuterol/Ipratropium (Duoneb 3 Mg/0.5 Mg (3 Ml) Ud) 3 ml INH RQ8 [facility] Last Admin: 03/20/17 15:26 Dose: 3 ml Amlodipine Besylate (Norvasc) 10 mg PO DAILY [facility] Last Admin: 03/20/17 09:03 Dose: 10 mg Calcium Acetate (Phoslo) 667 mg PO WM [facility] Last Admin: 03/20/17 11:21 Dose: 667 mg Citalopram Hydrobromide (Celexa) 20 mg PO DAILY [facility] Last Admin: 03/20/17 09:02 Dose: 20 mg Clonidine HCl (Catapres) 0.3 mg PO BID [facility] Last Admin: 03/20/17 09:01 Dose: 0.3 mg Ergocalciferol (Drisdol 50,000 Intl Units Cap) 1 cap PO Q7D [facility] Last Admin: 03/15/17 09:10 Dose: 1 cap Ferrous Sulfate (Feosol) 325 mg PO DAILY [facility] Last Admin: 03/20/17 09:02 Dose: 325 mg Furosemide (Lasix) 40 mg PO Q12 [facility] Guaifenesin (Robitussin) 100 mg PO Q6 PRN PRN Reason: Cough Last Admin: 03/12/17 21:15 Dose: 100 mg Heparin Sodium (Porcine) (Heparin) 5,000 units SC Q12 [facility] PRN Reason: Protocol Last Admin: 03/20/17 09:02 Dose: 5,000 units Hydralazine HCl (Apresoline) 20 mg PO Q8H [facility] Last Admin: 03/20/17 09:00 Dose: 20 mg Metronidazole (Flagyl 500mg/100ml Ns) 100 mls @ 100 mls/hr IVPB Q8 [facility] Last Admin: 03/20/17 09:02 Dose: 100 mls/hr Labetalol HCl (Trandate) 400 mg PO Q12 [facility] Last Admin: 03/20/17 09:05 Dose: 400 mg Lactic Acid (Lac-Hydrin 12% Lotion (225 G)) 1 applic TOP DAILY [facility] Last Admin: 03/20/17 09:03 Dose: 1 applic Pantoprazole Sodium (Protonix Ec Tab) 40 mg PO DAILY [facility] Last Admin: 03/20/17 09:05 Dose: 40 mg Prednisone (Prednisone Tab) 10 mg PO DAILY [facility] Last Admin: 03/20/17 09:04 Dose: 10 mg Fluticasone/Salmeterol (Advair Diskus 500/50) 1 puff IH Q12 [facility] Last Admin: 03/20/17 09:00 Dose: 1 puff Sodium Bicarbonate (Sodium Bicarbonate Tab) 1,300 mg PO BID [facility] Last Admin: 03/20/17 09:05 Dose: 1,300 mg Vancomycin HCl (Vancocin (Oral/Rectal Use)) 250 mg PO Q8 [facility] Last Admin: 03/20/17 09:06 Dose: 250 mg - Labs Labs: 03/20/17 10:30 03/20/17 10:30 PT 12.1 SECONDS (9.6-11.2) H 03/13/17 05:15 INR 1.16 (0.92-1.08) H 03/13/17 05:15 APTT 29.6 SECONDS (23.3-32.5) 03/16/17 06:40 - Constitutional Appears: No Acute Distress - Head Exam Head Exam: NORMAL INSPECTION - Eye Exam Eye Exam: PERRL - ENT Exam ENT Exam: Normal Oropharynx - Neck Exam Neck Exam: Normal Inspection - Respiratory Exam Respiratory Exam: Decreased Breath Sounds (at bases), Rhonchi (few at bases) - Cardiovascular Exam Cardiovascular Exam: REGULAR RHYTHM, Murmur (systolic 1/6 LSB) - GI/Abdominal Exam GI & Abdominal Exam: Soft, Normal Bowel Sounds - Extremities Exam Extremities Exam: Pedal Edema - Back Exam Back Exam: NORMAL INSPECTION - Neurological Exam Neurological Exam: Alert, Oriented x3. absent: Motor Sensory Deficit - Psychiatric Exam Psychiatric exam: Normal Mood - Skin Skin Exam: Warm Assessment and Plan (1) Lung infiltrate on CT Status: Acute (2) COPD (chronic obstructive pulmonary disease) Status: Chronic - Assessment and Plan (Free Text) Plan: CT Chest: Worsening b/l pleural effusion, patchy b/l interstitial infiltrate, previous lingular infiltrate resolved, old RUL infiltrate resolved. Continue Lasix, Duoneb, Advair and rest of Tx. CHF worsening
[2017-03-20 18:40] VITALS: BMI 27.3
[2017-03-21] MEDS: Albuterol-Ipratrop 3 mg / 0.5 (3 ml) UD INH SCH ×4 (00:25→23:27)
[2017-03-21] MEDS: metroNIDAZOLE 500mg/100ml NS 100 ML IVPB SCH ×3 (00:36→16:37)
[2017-03-21] MEDS: Vancomycin 500 mg (Oral/Rectal USE) PO SCH ×3 (00:41→16:56)
[2017-03-21 07:13] LABS: BASO % 0.4 % (0.0-2.0); EOS # 0.1 K/uL (0.0-0.7); EOS % 0.7 % (0.0-4.0); HEMATOCRIT 29.1 % (35.0-51.0); LYMPH # 2.2 K/uL (1.0-4.3); MEAN CELL VOLUME 87.1 fl (80.0-94.0); MEAN CORPUSCULAR HEMOGLOBIN 29.5 pg (27.0-31.0); MEAN CORPUSCULAR HGB CONC 33.9 g/dL (33.0-37.0); MEAN PLATELET VOLUME 7.2 fl (7.2-11.7); MONO # 0.7 K/uL (0.0-0.8); MONO % 8.2 % (0.0-10.0); NEUT # 5.4 K/uL (1.8-7.0); NEUT % 64.7 % (50.0-75.0); NRBC % 0.2 % (0.0-0.0); RED CELL DISTRIBUTION WIDTH 17.7 % (11.5-14.5); WHITE BLOOD COUNT 8.3 K/uL (4.8-10.8)
[2017-03-21] MEDS: Fluticasone-Salmeterol 500-50mcg Diskus IH SCH ×2 (09:37→22:16)
[2017-03-21] MEDS: Pantoprazole 40 mg EC Tab PO SCH (09:44)
--- NOTE | 2017-03-21 12:28 | CP.PCM.PN ---
Subjective - Date & Time of Evaluation Date of Evaluation: 03/21/17 Time of Evaluation: 07:00 - Subjective Subjective: Patient is being follow up for Hospital acquire pneumonia , and positive C diff toxin infection. Patient was seen and examined at bedside this morning. Patient is felling better this morning, reports less SOB, and coughing sporadically. Denies chest pain , nausea, vomiting, abdominal pain, diarrheas. Voiding without complains. No events overnight. Objective - Vital Signs/Intake and Output Vital Signs (last 24 hours): Temp Pulse Resp BP Pulse Ox 97.7 F 75 20 131/75 98 03/21/17 12:25 03/21/17 12:25 03/21/17 12:25 03/21/17 12:25 03/21/17 12:25 - Medications Medications: Current Medications Albuterol/Ipratropium (Duoneb 3 Mg/0.5 Mg (3 Ml) Ud) 3 ml INH RQ8 [facility] Last Admin: 03/21/17 07:50 Dose: 3 ml Amlodipine Besylate (Norvasc) 10 mg PO DAILY [facility] Last Admin: 03/21/17 09:43 Dose: 10 mg Calcium Acetate (Phoslo) 667 mg PO WM [facility] Last Admin: 03/21/17 09:43 Dose: 667 mg Citalopram Hydrobromide (Celexa) 20 mg PO DAILY [facility] Last Admin: 03/21/17 09:39 Dose: 20 mg Clonidine HCl (Catapres) 0.3 mg PO BID [facility] Last Admin: 03/21/17 09:39 Dose: 0.3 mg Ergocalciferol (Drisdol 50,000 Intl Units Cap) 1 cap PO Q7D [facility] Last Admin: 03/15/17 09:10 Dose: 1 cap Ferrous Sulfate (Feosol) 325 mg PO DAILY [facility] Last Admin: 03/21/17 09:40 Dose: 325 mg Furosemide (Lasix) 40 mg PO Q12 [facility] Last Admin: 03/21/17 09:42 Dose: 40 mg Guaifenesin (Robitussin) 100 mg PO Q6 PRN PRN Reason: Cough Last Admin: 03/12/17 21:15 Dose: 100 mg Heparin Sodium (Porcine) (Heparin) 5,000 units SC Q12 [facility] PRN Reason: Protocol Last Admin: 03/21/17 09:41 Dose: 5,000 units Hydralazine HCl (Apresoline) 20 mg PO Q8H [facility] Last Admin: 03/21/17 09:38 Dose: 20 mg Metronidazole (Flagyl 500mg/100ml Ns) 100 mls @ 100 mls/hr IVPB Q8 [facility] Last Admin: 03/21/17 09:41 Dose: 100 mls/hr Labetalol HCl (Trandate) 400 mg PO Q12 [facility] Last Admin: 03/21/17 09:46 Dose: 400 mg Lactic Acid (Lac-Hydrin 12% Lotion (225 G)) 1 applic TOP DAILY [facility] Last Admin: 03/21/17 09:42 Dose: 1 applic Pantoprazole Sodium (Protonix Ec Tab) 40 mg PO DAILY [facility] Last Admin: 03/21/17 09:44 Dose: 40 mg Prednisone (Prednisone Tab) 10 mg PO DAILY [facility] Last Admin: 03/21/17 09:44 Dose: 10 mg Fluticasone/Salmeterol (Advair Diskus 500/50) 1 puff IH Q12 [facility] Last Admin: 03/21/17 09:37 Dose: 1 puff Sodium Bicarbonate (Sodium Bicarbonate Tab) 1,300 mg PO BID [facility] Last Admin: 03/21/17 09:45 Dose: 1,300 mg Vancomycin HCl (Vancocin (Oral/Rectal Use)) 250 mg PO Q8 [facility] Last Admin: 03/21/17 00:41 Dose: 250 mg - Labs Labs: 03/21/17 05:55 03/20/17 10:30 PT 12.1 SECONDS (9.6-11.2) H 03/13/17 05:15 INR 1.16 (0.92-1.08) H 03/13/17 05:15 APTT 29.6 SECONDS (23.3-32.5) 03/16/17 06:40 - Constitutional Appears: Non-toxic, No Acute Distress - ENT Exam ENT Exam: Mucous Membranes Moist - Respiratory Exam Respiratory Exam: Clear to Ausculation Bilateral, Rales (very few crackles to auscultation of left lower lobe), NORMAL BREATHING PATTERN - Cardiovascular Exam Cardiovascular Exam: REGULAR RHYTHM, +S1, +S2 - GI/Abdominal Exam GI & Abdominal Exam: Soft, Normal Bowel Sounds. absent: Distended, Tenderness Additional comments: Protuberant - Extremities Exam Extremities Exam: Pedal Edema. absent: Calf Tenderness Additional comments: Edema pitting 2+ noted in lower extremities below knees, satble. - Back Exam Back Exam: absent: CVA tenderness (L), CVA tenderness (R) - Neurological Exam Neurological Exam: Alert, Awake, Oriented x3 - Skin Skin Exam: Dry, Intact, Normal Color Assessment and Plan - Assessment and Plan (Free Text) Assessment: 67 yo homeless M w PMHx of ANCA Vasculitis, CKD, DVT of RUE, HTN, etoh abuse, COPD, and CHF who was admitted to rule out ACS and viral gastroenteritis that resolving and receiving treatment for positive C-diff toxin, Pneumonia. H/o positive TB QFT, AFB sputum x 3 neg. Plan: Hospital acquire Pneumonia -Chest CT scan showed small infiltrate at the lingula, recent hospitalization 2016 - afebrile, no leukocytosis, clinically improving -Pulmunology consult appreciated, Dr. Echols : wants to r/o active TB sputum AFB x 3 negative, discontinue isolation today -c/w Duoneb Q 8hours, Oxygen 2L NC prn -f/u Fugitell test -S/P Zosyn 2.25 mg IV TID renal dose for 7 days. -Anticipated DC after 3 days of abx treatment for c-diff infection. Consider break up worker for transportation. -Call Nephrology for plan after DC. Questionable to continue Cytoxan treatment because patient poor compliance with f/u as outpatient and Renal function is improving. -Anticipated DC for tomorrow C-diff toxin positive -Improving, denies diarrheas -ID consult appreciated c/w PO vancomycin and IV Flagyl for C-diff on day #9 (renal dose). ID recommendations to continue 3 mores days of current antibiotic regimen. -s/p Flagyl PO 03/10/17-03/12/17 -Continue contact precautions. 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 Samano and associates -BUN/creatinine improving, 55/3.4 -c/w Prednisone 10 mg PO daily -continue management as per nephro H/O Provoke DVT in RUE -Heme/Onc consult appreciated, Dr. Bobo exterminator termite anticoagulation with Coumadin PO not recommended secondary to pt noncompliance and high risk for bleeding. DVT prophylaxis -repeat u/s right upper ex 03/11: interval decrease in thrombus, mild amount of residual anterior wall thickening, vessel is patent, no appreciable acute thrombus note -s/p Heparin drip secondary to drop of H:H -continue management as per heme/onc -Started Aspirin 81 mg PO daily Chronic anemia most likely secondary to CKD -Heme/Onc consult appreciated, Dr. Bobo -s/p 2 units of transfused PRBC and epotien x1 -H/H stable 9.9/29.1 -no evidence of active bleeding, FOBT : negative H/O Latent TB -Pulmunology consult appreciated, Dr. Echols -Isoniazid was stopped per TB center secondary to elevated liver enzyme -Positive QFT on 12/2016 -AFB sputum stain negative X 3 -Airborne isolation discontinue H/O Reactive FTA-ABS -Asymptomatic at this time -F/U T. Pallidum antibodies titer Congestive Heart Failure -stable, improving SOB -Pro-BNP on 03/07/17 was 4410, but stable from previous baseline -c/w Furosemide 40 mg IVP BID and Labetalol dose from 200 mg to 400 PO BID -not on ACEI/ARB due to SHERRY. HTN most likely secondary to CKD -mild elevation -started Norvasc 10mg po daily on 03/18/17. F/U lower extremities edema. -Hydralazine 20 mg PO TID -Labetalol 400 PO BID -will consider increasing dosage -Continue monitoring GERD -Asymptomatic -Protonix 40 mg PO daily DVT prophylaxis Heparin 5000 units SC BID.
--- NOTE | 2017-03-21 13:16 | CP.PCM.PN ---
Subjective - Date & Time of Evaluation Date of Evaluation: 03/21/17 Time of Evaluation: 13:16 - Subjective Subjective: renal follow up notes no events overnight no urinary complaints Objective - Vital Signs/Intake and Output Vital Signs (last 24 hours): Temp Pulse Resp BP Pulse Ox 97.7 F 75 20 131/75 98 03/21/17 12:25 03/21/17 12:25 03/21/17 12:25 03/21/17 12:25 03/21/17 12:25 - Medications Medications: Current Medications Albuterol/Ipratropium (Duoneb 3 Mg/0.5 Mg (3 Ml) Ud) 3 ml INH RQ8 [facility] Last Admin: 03/21/17 07:50 Dose: 3 ml Amlodipine Besylate (Norvasc) 10 mg PO DAILY [facility] Last Admin: 03/21/17 09:43 Dose: 10 mg Aspirin (Aspirin Chewable) 81 mg PO DAILY [facility] Calcium Acetate (Phoslo) 667 mg PO WM [facility] Last Admin: 03/21/17 09:43 Dose: 667 mg Citalopram Hydrobromide (Celexa) 20 mg PO DAILY [facility] Last Admin: 03/21/17 09:39 Dose: 20 mg Clonidine HCl (Catapres) 0.3 mg PO BID [facility] Last Admin: 03/21/17 09:39 Dose: 0.3 mg Ergocalciferol (Drisdol 50,000 Intl Units Cap) 1 cap PO Q7D [facility] Last Admin: 03/15/17 09:10 Dose: 1 cap Ferrous Sulfate (Feosol) 325 mg PO DAILY [facility] Last Admin: 03/21/17 09:40 Dose: 325 mg Furosemide (Lasix) 40 mg PO Q12 [facility] Last Admin: 03/21/17 09:42 Dose: 40 mg Guaifenesin (Robitussin) 100 mg PO Q6 PRN PRN Reason: Cough Last Admin: 03/12/17 21:15 Dose: 100 mg Heparin Sodium (Porcine) (Heparin) 5,000 units SC Q12 [facility] PRN Reason: Protocol Last Admin: 03/21/17 09:41 Dose: 5,000 units Hydralazine HCl (Apresoline) 20 mg PO Q8H [facility] Last Admin: 03/21/17 09:38 Dose: 20 mg Metronidazole (Flagyl 500mg/100ml Ns) 100 mls @ 100 mls/hr IVPB Q8 [facility] Last Admin: 03/21/17 09:41 Dose: 100 mls/hr Labetalol HCl (Trandate) 400 mg PO Q12 [facility] Last Admin: 03/21/17 09:46 Dose: 400 mg Lactic Acid (Lac-Hydrin 12% Lotion (225 G)) 1 applic TOP DAILY [facility] Last Admin: 03/21/17 09:42 Dose: 1 applic Pantoprazole Sodium (Protonix Ec Tab) 40 mg PO DAILY [facility] Last Admin: 03/21/17 09:44 Dose: 40 mg Prednisone (Prednisone Tab) 10 mg PO DAILY [facility] Last Admin: 03/21/17 09:44 Dose: 10 mg Fluticasone/Salmeterol (Advair Diskus 500/50) 1 puff IH Q12 [facility] Last Admin: 03/21/17 09:37 Dose: 1 puff Sodium Bicarbonate (Sodium Bicarbonate Tab) 1,300 mg PO BID [facility] Last Admin: 03/21/17 09:45 Dose: 1,300 mg Vancomycin HCl (Vancocin (Oral/Rectal Use)) 250 mg PO Q8 [facility] Last Admin: 03/21/17 00:41 Dose: 250 mg - Labs Labs: 03/21/17 05:55 03/20/17 10:30 PT 12.1 SECONDS (9.6-11.2) H 03/13/17 05:15 INR 1.16 (0.92-1.08) H 03/13/17 05:15 APTT 29.6 SECONDS (23.3-32.5) 03/16/17 06:40 - Constitutional Appears: Non-toxic, No Acute Distress - Head Exam Head Exam: NORMAL INSPECTION - Eye Exam Eye Exam: Normal appearance - ENT Exam ENT Exam: Mucous Membranes Moist - Respiratory Exam Respiratory Exam: NORMAL BREATHING PATTERN - Cardiovascular Exam Cardiovascular Exam: +S1, +S2 - GI/Abdominal Exam GI & Abdominal Exam: Soft - Extremities Exam Extremities Exam: Normal Capillary Refill - Neurological Exam Neurological Exam: Alert, Oriented x3 - Psychiatric Exam Psychiatric exam: Normal Mood - Skin Skin Exam: Dry, Intact Assessment and Plan - Assessment and Plan (Free Text) Plan: SHERRY/ANCA vasculitis/ckd stage 3/anemia/c diff cr stable, non oliguric lytes reviewed anemia: stable transfuse prn bp ok, continue current meds continue sodium bicarb and lasix continue binders ok to dsicharge today, stable per renal
--- NOTE | 2017-03-21 14:52 | CP.PCM.PN ---
Subjective - Date & Time of Evaluation Date of Evaluation: 03/21/17 Time of Evaluation: 10:20 - Subjective Subjective: F/U L Lung Infiltrate. Objective - Vital Signs/Intake and Output Vital Signs (last 24 hours): Temp Pulse Resp BP Pulse Ox 97.7 F 75 20 131/75 98 03/21/17 12:25 03/21/17 12:25 03/21/17 12:25 03/21/17 12:25 03/21/17 12:25 - Medications Medications: Current Medications Albuterol/Ipratropium (Duoneb 3 Mg/0.5 Mg (3 Ml) Ud) 3 ml INH RQ8 [facility] Last Admin: 03/21/17 07:50 Dose: 3 ml Amlodipine Besylate (Norvasc) 10 mg PO DAILY [facility] Last Admin: 03/21/17 09:43 Dose: 10 mg Aspirin (Aspirin Chewable) 81 mg PO DAILY [facility] Calcium Acetate (Phoslo) 667 mg PO WM [facility] Last Admin: 03/21/17 09:43 Dose: 667 mg Citalopram Hydrobromide (Celexa) 20 mg PO DAILY [facility] Last Admin: 03/21/17 09:39 Dose: 20 mg Clonidine HCl (Catapres) 0.3 mg PO BID [facility] Last Admin: 03/21/17 09:39 Dose: 0.3 mg Ergocalciferol (Drisdol 50,000 Intl Units Cap) 1 cap PO Q7D [facility] Last Admin: 03/15/17 09:10 Dose: 1 cap Ferrous Sulfate (Feosol) 325 mg PO DAILY [facility] Last Admin: 03/21/17 09:40 Dose: 325 mg Furosemide (Lasix) 40 mg PO Q12 [facility] Last Admin: 03/21/17 09:42 Dose: 40 mg Guaifenesin (Robitussin) 100 mg PO Q6 PRN PRN Reason: Cough Last Admin: 03/12/17 21:15 Dose: 100 mg Heparin Sodium (Porcine) (Heparin) 5,000 units SC Q12 [facility] PRN Reason: Protocol Last Admin: 03/21/17 09:41 Dose: 5,000 units Hydralazine HCl (Apresoline) 20 mg PO Q8H [facility] Last Admin: 03/21/17 09:38 Dose: 20 mg Metronidazole (Flagyl 500mg/100ml Ns) 100 mls @ 100 mls/hr IVPB Q8 [facility] Last Admin: 03/21/17 09:41 Dose: 100 mls/hr Labetalol HCl (Trandate) 400 mg PO Q12 [facility] Last Admin: 03/21/17 09:46 Dose: 400 mg Lactic Acid (Lac-Hydrin 12% Lotion (225 G)) 1 applic TOP DAILY [facility] Last Admin: 03/21/17 09:42 Dose: 1 applic Pantoprazole Sodium (Protonix Ec Tab) 40 mg PO DAILY [facility] Last Admin: 03/21/17 09:44 Dose: 40 mg Prednisone (Prednisone Tab) 10 mg PO DAILY [facility] Last Admin: 03/21/17 09:44 Dose: 10 mg Fluticasone/Salmeterol (Advair Diskus 500/50) 1 puff IH Q12 [facility] Last Admin: 03/21/17 09:37 Dose: 1 puff Sodium Bicarbonate (Sodium Bicarbonate Tab) 1,300 mg PO BID [facility] Last Admin: 03/21/17 09:45 Dose: 1,300 mg Vancomycin HCl (Vancocin (Oral/Rectal Use)) 250 mg PO Q8 [facility] Last Admin: 03/21/17 00:41 Dose: 250 mg - Labs Labs: 03/21/17 05:55 03/20/17 10:30 PT 12.1 SECONDS (9.6-11.2) H 03/13/17 05:15 INR 1.16 (0.92-1.08) H 03/13/17 05:15 APTT 29.6 SECONDS (23.3-32.5) 03/16/17 06:40 - Constitutional Appears: No Acute Distress - Head Exam Head Exam: NORMAL INSPECTION - Eye Exam Eye Exam: PERRL - ENT Exam ENT Exam: Normal Oropharynx - Neck Exam Neck Exam: Normal Inspection - Respiratory Exam Respiratory Exam: Decreased Breath Sounds (at bases), Rhonchi (few at bases) - Cardiovascular Exam Cardiovascular Exam: REGULAR RHYTHM, Murmur (systolic 1/6 LSB) - GI/Abdominal Exam GI & Abdominal Exam: Soft, Normal Bowel Sounds - Extremities Exam Extremities Exam: Pedal Edema - Back Exam Back Exam: NORMAL INSPECTION - Neurological Exam Neurological Exam: Alert, Oriented x3. absent: Motor Sensory Deficit - Psychiatric Exam Psychiatric exam: Normal Mood - Skin Skin Exam: Warm Assessment and Plan (1) Lung infiltrate on CT Status: Acute (2) COPD (chronic obstructive pulmonary disease) Status: Chronic
[2017-03-22 07:04] LABS: CALCIUM 7.5 mg/dL (8.4-10.2)
[2017-03-22] MEDS: Albuterol-Ipratrop 3 mg / 0.5 (3 ml) UD INH SCH (07:26)
[2017-03-22 07:40] LABS: PARTIAL THROMBOPLASTIN TIME 26.9 SECONDS (23.3-32.5)
[2017-03-22] MEDS: Pantoprazole 40 mg EC Tab PO SCH (09:20)
[2017-03-22] MEDS: metroNIDAZOLE 500mg/100ml NS 100 ML IVPB SCH (09:23)
[2017-03-22] MEDS: Vancomycin 500 mg (Oral/Rectal USE) PO SCH (09:25)
[2017-03-22] MEDS: Fluticasone-Salmeterol 500-50mcg Diskus IH SCH (09:27)
--- NOTE | 2017-03-22 10:38 | CP.PCM.DIS ---
Provider - Provider Date of Admission: 03/07/17 13:53 Attending physician: Aaliyah Knott MD Time Spent in preparation of Discharge (in minutes): 30 Diagnosis - Discharge Diagnosis (1) Chest pain Status: Acute Priority: High Comment: Most likely GERD. Resolved. ACS was ruled out (2) COPD (chronic obstructive pulmonary disease) with chronic bronchitis Status: Chronic Priority: Medium (3) SHERRY (acute kidney injury) Status: Acute Priority: Medium (4) Acute on chronic renal failure Status: Acute Priority: High Comment: Improved. F/[facility] nephrology as outpatient (5) Clostridium difficile infection Status: Acute Priority: High Comment: resolved with treatment (6) Pneumonia Status: Acute Priority: High Comment: improved clinically (7) DVT (deep venous thrombosis) Status: Chronic Comment: Controlled. Hospital Course - Lab Results Lab Results: Micro Results 03/14/17 17:52 Other: Please Indicate Mycobacterial Culture - Preliminary 03/12/17 10:24 Other: Please Indicate Mycobacterial Culture - Preliminary 03/15/17 12:30 Sputum Induced Gram Stain - Final 03/15/17 12:30 Sputum Induced Sputum Culture - Final NORMAL ORAL ANNA Most Recent Lab Values WBC 8.3 K/uL (4.8-10.8) 03/21/17 05:55 RBC 3.35 Mil/uL (4.40-5.90) L 03/21/17 05:55 Hgb 9.9 g/dL (12.0-18.0) L 03/21/17 05:55 Hct 29.1 % (35.0-51.0) L 03/21/17 05:55 MCV 87.1 fl (80.0-94.0) 03/21/17 05:55 MCH 29.5 pg (27.0-31.0) 03/21/17 05:55 MCHC 33.9 g/dL (33.0-37.0) 03/21/17 05:55 RDW 17.7 % (11.5-14.5) H 03/21/17 05:55 Plt Count 235 K/uL (130-400) 03/21/17 05:55 MPV 7.2 fl (7.2-11.7) 03/21/17 05:55 Neut % (Auto) 64.7 % (50.0-75.0) 03/21/17 05:55 Lymph % (Auto) 26.0 % (20.0-40.0) 03/21/17 05:55 [place] % (Auto) 8.2 % (0.0-10.0) 03/21/17 05:55 Eos % (Auto) 0.7 % (0.0-4.0) 03/21/17 05:55 Baso % (Auto) 0.4 % (0.0-2.0) 03/21/17 05:55 Neut # 5.4 K/uL (1.8-7.0) 03/21/17 05:55 Lymph # 2.2 K/uL (1.0-4.3) 03/21/17 05:55 [place] # 0.7 K/uL (0.0-0.8) 03/21/17 05:55 Eos # 0.1 K/uL (0.0-0.7) 03/21/17 05:55 Baso # 0.0 K/uL (0.0-0.2) 03/21/17 05:55 PT 11.7 SECONDS (9.6-11.2) H 03/22/17 05:50 INR 1.13 (0.92-1.08) H 03/22/17 05:50 APTT 26.9 SECONDS (23.3-32.5) 03/22/17 05:50 pO2 39 mm/Hg (30-55) 03/06/17 18:55 VBG pH 7.39 (7.32-7.43) 03/06/17 18:55 VBG pCO2 34 mmHg (40-60) L 03/06/17 18:55 VBG HCO3 21.6 mmol/L 03/06/17 18:55 VBG Total CO2 21.6 mmol/L (22-28) L 03/06/17 18:55 VBG O2 Sat (Calc) 83.8 % (40-65) H 03/06/17 18:55 VBG Base Excess -3.8 mmol/L (0.0-2.0) L 03/06/17 18:55 VBG Potassium 4.4 mmol/L (3.6-5.2) 03/06/17 18:55 Sodium 137.0 mmol/L (132-148) 03/06/17 18:55 Chloride 107.0 mmol/L (98-107) 03/06/17 18:55 Glucose 102 mg/dL (75-110) 03/06/17 18:55 Lactate 0.7 mmol/L (0.7-2.1) 03/06/17 18:55 FiO2 21.0 % 03/06/17 18:55 Sodium 137 mmol/l (132-148) 03/22/17 05:50 Potassium 4.0 MMOL/L (3.6-5.0) 03/22/17 05:50 Chloride 106 mmol/L (98-107) 03/22/17 05:50 Carbon Dioxide 22 mmol/L (22-30) 03/22/17 05:50 Anion Gap 13 (10-20) 03/22/17 05:50 BUN 52 mg/dl (9-20) H 03/22/17 05:50 Creatinine 3.2 mg/dL (0.8-1.5) H 03/22/17 05:50 Est GFR ( Amer) 24 03/22/17 05:50 Est GFR (Non-Af Amer) 20 03/22/17 05:50 Random Glucose 82 mg/dL (75-110) 03/22/17 05:50 Calcium 7.5 mg/dL (8.4-10.2) L 03/22/17 05:50 Phosphorus 4.7 mg/dl (2.5-4.5) H 03/20/17 10:30 Iron 77 ug/dL (49-181) 03/14/17 09:00 TIBC 160 ug/dL (250-450) L 03/14/17 09:00 % Saturation 48 % (20-55) 03/14/17 09:00 Ferritin 880.0 ng/mL 03/14/17 05:30 Total Bilirubin 0.4 mg/dl (0.2-1.3) 03/07/17 07:50 AST 49 U/L (17-59) 03/07/17 07:50 ALT 21 U/L (21-72) 03/07/17 07:50 Alkaline Phosphatase 58 U/L (38-126) 03/07/17 07:50 Troponin I 0.0350 ng/mL (0.00-0.120) 03/07/17 16:30 NT-Pro-B Natriuret Pep 4410 pg/ml (0-900) H 03/07/17 06:47 Total Protein 6.0 G/DL (6.3-8.2) L 03/07/17 07:50 Albumin 2.4 g/dL (3.5-5.0) L 03/12/17 05:15 Globulin 3.4 gm/dL (2.2-3.9) 03/07/17 07:50 Albumin/Globulin Ratio 0.8 (1.0-2.1) L 03/07/17 07:50 Lipase 135 U/L (23-300) 03/06/17 18:30 25-OH Vitamin D Total < 12.8 NG/ML (30.0-100.0) L 03/14/17 09:00 PTH Intact Whole Molec 197 pg/mL (14-64) H 03/14/17 05:30 Venous Blood Potassium 4.4 mmol/L (3.6-5.2) 03/06/17 18:55 Urine Color Red (YELLOW) 03/06/17 18:30 Urine Clarity Slighty-cloudy (Clear) 03/06/17 18:30 Urine pH 6.0 (5.0-8.0) 03/06/17 18:30 Ur Specific Stella 1.016 (1.003-1.030) 03/06/17 18:30 Urine Protein >=500 mg/dL (NEGATIVE) 03/06/17 18:30 Urine Glucose (UA) 50 mg/dL (Normal) 03/06/17 18:30 Urine Ketones Negative mg/dL (NEGATIVE) 03/06/17 18:30 Urine Blood Large (NEGATIVE) 03/06/17 18:30 Urine Nitrate Negative (NEGATIVE) 03/06/17 18:30 Urine Bilirubin Negative (NEGATIVE) 03/06/17 18:30 Urine Urobilinogen 0.2-1.0 mg/dL (0.2-1.0) 03/06/17 18:30 Ur Leukocyte Esterase Neg [place]/uL (Negative) 03/06/17 18:30 Urine RBC (Auto) 952 /hpf (0-3) H 03/06/17 18:30 Ur Squamous Epith Cells < 1 /hpf (0-5) 03/06/17 18:30 Hyaline Casts >20 /hpf (0-2) H 03/06/17 18:30 Urine Collection Time 24 HRS 03/13/17 11:38 Urine Total Volume 2100 mL 03/13/17 11:38 Creatinine Clearance 12.0 mL/min (107-139) L 03/13/17 11:38 Stool Occult Blood Negative (NEGATIVE) 03/10/17 15:00 Vancomycin Peak 11.2 ug/mL (30.0-40.0) L 03/13/17 13:00 Vancomycin Trough 11.2 ug/mL (5.0-10.0) H 03/13/17 13:00 C. difficile Ag & Toxin Positive antigen (NEGATIVE) 03/09/17 19:03 Beta-(1,3)-D-Glucan 445 pg/mL H 03/09/17 05:40 Blood Type A POSITIVE 03/12/17 16:38 Antibody Screen Negative 03/12/17 16:38 Crossmatch See Detail 03/12/17 16:38 BBK History Checked Patient has bt 03/12/17 16:38 - Hospital Course Hospital Course: 67 yo homeless Male with PMHx of ANCA Vasculitis, DVT of RUE, CKD, HTN, etoh abuse, COPD, and CHF who was admitted to r/o ACS. During admission ACS was ruled out with EKG showing NSR and no acute ST or/and T wave changes, and negative troponinI X 4. During admission patient was found to have C-diff infection, ID was consulted, patient was treated with PO Vancomycin ( renal dose ) and Flagyl IV. Also patient was found to have a new infiltrate in Chest xray and chest CT scan, and was managed as a HCAP due to patient recent hospitalization prior to this admission. Also pulmunology was consulted due patient history of positive QFT, and sputum x 3 were neg.Because patient h/o of recent DVT in RUE, ultrasound was done and showed findings possible consistent with thrombus seen in previous admission, and heparin drip was started by protocol. Heparin drip was stopped due to a drop in H/H and patient was transfused with 2 units of PRBC, that improved H/H, and patient was placed in Heparin prophylaxis. No recommendations for chcf anticoagulation was given because patient poor compliance with f/uand high risk for bleeding . Nephrology was consulted to worsening renal function. Renal function was improving progressively after close management by Nephro, and recommendations for f/u given. Due to positive FTA-ABS, T. Pallidum titers ordered, but still pending results. F/U in TB clinic on March 31, 2017 Home medications Amlodipine 10 mg daily Aspirin 81 mg daily Ca Acetate 667 mg daily Citalopram 20 mg daily Clonidine 0.3 mg BID Ferrous S 325 mg daily Advair Diskus 1puff Q12 Furosemide 40 mg Q12 Hydralazine 20 mg Q8 Labetalol 400 mg Q12 Pantoprazole 40 mg daily prednisone 10 mg daily - Date & Time of H&P Date of H&P: 03/06/17 Time of H&P: 23:50 Discharge Exam - Head Exam Head Exam: NORMAL INSPECTION - ENT Exam ENT Exam: Mucous Membranes Moist - Respiratory Exam Respiratory Exam: Clear to PA & Lateral - Cardiovascular Exam Cardiovascular Exam: REGULAR RHYTHM, +S1, +S2 - GI/Abdominal Exam GI & Abdominal Exam: Normal Bowel Sounds, Soft. absent: Distended, Rigid, Tenderness - Extremities Exam Additional comments: No calf tenderness noted. Stable lower extremities edema pitting 2 + below knees - Neurological Exam Neurological exam: Alert, Oriented x3 - Skin Skin Exam: Dry, Intact, Normal Color Discharge Plan - Discharge Medications Prescriptions: amLODIPine [Norvasc] 10 mg PO DAILY #30 tab Aspirin [Aspirin Chewable] 81 mg PO DAILY #30 Calcium Acetate [Phoslo] 667 mg PO WM #30 tab Ferrous Sulfate [Feosol] 325 mg PO DAILY #30 tab Fluticasone/Salmeterol 500/50 [Advair Diskus 500/50] 1 puff IH Q12 #1 puff Furosemide [Lasix] 40 mg PO Q12 #60 tab Labetalol [Trandate] 400 mg PO Q12 #60 tab Pantoprazole [Protonix EC Tab] 40 mg PO DAILY #30 ect - Follow Up Plan Condition: STABLE Disposition: HOME/ ROUTINE Instructions: Chronic Kidney Disease (DC), Gastroenteritis (DC) Additional Instructions: F/U as outpatient with PMD and Nephrology
[2017-03-22 12:09] VITALS: BP 142/74; PULSE 82; RESP 18; TEMP 97.8; O2SAT 97
[2017-03-22] MEDS: Ergocalciferol 50,000 Intl Units Cap PO SCH (12:49)
== END 2017-03-22 14:20 | disposition home or self-care (01) | DRG 541 ==
LOC: H.ER 17:06 → H.ERHOLD 23:45 → H.TEL 03-07 04:08 → OBSVTOIN 03-07 13:53 → H.TEL 03-11 18:18
PROVIDERS: ADMIT Family Medicine Geriatric Medicine; ATTEND Family Medicine Geriatric Medicine
PROC: 30233N1 Transfusion of Nonautologous Red Blood Cells into Peripheral Vein, Percutaneous Approach (ICD-10-PCS; principal; 2017-03-14)
DX: J44.0 Chronic obstructive pulmonary disease with (acute) lower respiratory infection (principal); J18.9 Pneumonia, unspecified organism; N17.9 Acute kidney failure, unspecified; I13.0 Hypertensive heart and chronic kidney disease with heart failure and stage 1 through stage 4 chronic kidney disease, or unspecified chronic kidney disease; E87.2 Acidosis; I50.22 Chronic systolic (congestive) heart failure; N18.3 Chronic kidney disease, stage 3 (moderate); A04.7 Enterocolitis due to Clostridium difficile; E86.1 Hypovolemia; E86.0 Dehydration; A08.4 Viral intestinal infection, unspecified; N05.7 Unspecified nephritic syndrome with diffuse crescentic glomerulonephritis; Y95 Nosocomial condition; Z59.0 Homelessness; Z86.718 Personal history of other venous thrombosis and embolism; D63.1 Anemia in chronic kidney disease; K21.9 Gastro-esophageal reflux disease without esophagitis; Z88.2 Allergy status to sulfonamides; F32.9 Major depressive disorder, single episode, unspecified; R31.0 Gross hematuria; I77.89 Other specified disorders of arteries and arterioles; R76.11 Nonspecific reaction to tuberculin skin test without active tuberculosis; Z91.19 Patient's noncompliance with other medical treatment and regimen; F41.9 Anxiety disorder, unspecified; Z72.0 Tobacco use; E55.9 Vitamin D deficiency, unspecified; E83.51 Hypocalcemia; N25.81 Secondary hyperparathyroidism of renal origin; E83.39 Other disorders of phosphorus metabolism

== ENCOUNTER 2017-04-02 12:27 | Inpatient (IN) | payer SELFPAY ==
[2017-04-02] MEDS ORDERED: Nitroglycerin 2% 15 INCH/30 GM TUBE TOP STA (12:44)
[2017-04-02] MEDS ORDERED: Albuterol-Ipratrop 3 mg / 0.5 (3 ml) UD IH STA (12:44)
--- NOTE | 2017-04-02 12:49 | ED PDOC ---
HPI: SOB/CHF/COPD Time Seen by Provider: 04/02/17 12:38 Chief Complaint (Nursing): Respiratory Distress History Per: Patient (Worsening SOB over 2 days assoc with cough and blood tinged sputum. Denies chest pain. No fever. Swelling lower ext but no calf pain. ) Onset/Duration Of Symptoms: Days (2) Current Symptoms Are (Timing): Still Present Quality: Tightness Exacerbating Factor(s): Exertion Current Respiratory Medications: See Home Med List Severity: Moderate Associated Symptoms: Bloody Cough, Ankle/Leg Swelling. denies: Chest Pain, Leg/ Calf Pain Past Medical History Vital Signs: Last Vital Signs Temp 98.8 F 04/02/17 12:41 Pulse 151 H 04/02/17 13:42 Resp 84 H 04/02/17 12:41 BP 170/98 H 04/02/17 13:42 Pulse Ox 86 L 04/02/17 13:47 - Medical History PMH: Anemia, Anxiety, Arthritis, CHF, COPD, Depression, Deep Vein Thrombosis ( RUE), HTN, Pneumonia, Chronic Kidney Disease, Seizures Denies: HIV - Surgical History Surgical History: Denies: Coronary Stent - Family History Family History: States: Unknown Family Hx - Immunization History Hx Tetanus Toxoid Vaccination: No Hx Influenza Vaccination: No Hx Pneumococcal Vaccination: No - Home Medications Home Medications: Ambulatory Orders Medication Instructions Recorded Citalopram Hydrobromide [Celexa] 20 mg PO DAILY 03/08/17 cloNIDine [Catapres] 0.3 mg PO BID 03/08/17 hydrALAZINE [Apresoline] 20 mg PO Q8H 03/08/17 predniSONE [predniSONE Tab] 10 mg PO DAILY 03/08/17 Aspirin [Aspirin Chewable] 81 mg PO DAILY #30 03/22/17 Calcium Acetate [Phoslo] 667 mg PO WM #30 tab 03/22/17 Ferrous Sulfate [Feosol] 325 mg PO DAILY #30 tab 03/22/17 Fluticasone/Salmeterol 500/50 1 puff IH Q12 #1 puff 03/22/17 [Advair Diskus 500/50] Furosemide [Lasix] 40 mg PO Q12 #60 tab 03/22/17 Labetalol [Trandate] 400 mg PO Q12 #60 tab 03/22/17 Pantoprazole [Protonix EC Tab] 40 mg PO DAILY #30 ect 03/22/17 amLODIPine [Norvasc] 10 mg PO DAILY #30 tab 03/22/17 - Allergies Allergies/Adverse Reactions: Allergies Allergy/AdvReac Type Severity Reaction Status Date / Time sulfamethoxazole Allergy RASH Verified 03/06/17 17:55 [From ] trimethoprim [From ] Allergy RASH Verified 03/06/17 17:55 Review of Systems ROS Statement: Except As Marked, All Systems Reviewed And Found Negative Cardiovascular: Positive for: Edema Respiratory: Positive for: Shortness of Breath, Hemoptysis Physical Exam - Reviewed Nursing Documentation Reviewed: Yes Vital Signs Reviewed: Yes - Physical Exam Appears: Positive for: Non-toxic, In Acute Distress Head Exam: Positive for: ATRAUMATIC, NORMAL INSPECTION, NORMOCEPHALIC Skin: Positive for: Normal Color, Warm, DRY Eye Exam: Positive for: EOMI, Normal appearance, PERRL ENT: Positive for: Normal ENT Inspection Neck: Positive for: Normal, Painless ROM Cardiovascular/Chest: Positive for: Tachycardia, Irregularly Irregular Respiratory: Positive for: CNT, Normal Breath Sounds Gastrointestinal/Abdominal: Positive for: Normal Exam, Bowel Sounds, Soft Back: Positive for: Normal Inspection Extremity: Positive for: Normal ROM, Swelling (2+ pitting edema lower ext bilat) Neurologic/Psych: Positive for: Alert, Oriented - Laboratory Results Result Diagrams: 04/02/17 13:00 04/02/17 13:00 - ECG O2 Sat by Pulse Oximetry: 86 - Critical Care Total Time (In Min): 35 Disposition - Clinical Impression Clinical Impression: CHF (congestive heart failure), Tachycardia, Acute on chronic renal failure - Patient ED Disposition Is Patient to be Admitted: Yes - Disposition Disposition Time: 13:25 Condition: GUARDED
[2017-04-02] MEDS ORDERED: Albuterol-Ipratrop 3 mg / 0.5 (3 ml) UD ONE (12:51)
[2017-04-02] MEDS ORDERED: Digoxin 500 mcg/2ml (0.5 mg/2ml) Inj IVP STA (13:11)
[2017-04-02 13:14] LABS: ABG ALLEN TEST YES; ARTERIAL BLOOD GAS HCO3 19.3 mmol/L (21-28); ARTERIAL BLOOD GAS O2 SAT 100.3 % (95-98); ARTERIAL BLOOD GAS PCO2 31 mm/Hg (35-45); ARTERIAL BLOOD GAS PH 7.35 (7.35-7.45); ARTERIAL BLOOD GAS PO2 336 mm/Hg (80-100); ARTERIAL BLOOD GAS TCO2 18.1 mmol/L (22-28)
[2017-04-02 13:45] LABS: BASO % 0.3 % (0.0-2.0); EOS % 0.6 % (0.0-4.0); HEMOGLOBIN 8.4 g/dL (12.0-18.0); LYMPH # 2.1 K/uL (1.0-4.3); LYMPH % 29.2 % (20.0-40.0); MEAN CELL VOLUME 90.5 fl (80.0-94.0); MEAN CORPUSCULAR HGB CONC 32.1 g/dL (33.0-37.0); MONO # 0.6 K/uL (0.0-0.8); MONO % 8.5 % (0.0-10.0); NEUT # 4.4 K/uL (1.8-7.0); NEUT % 61.4 % (50.0-75.0); RBC 2.89 Mil/uL (4.40-5.90); RED CELL DISTRIBUTION WIDTH 18.9 % (11.5-14.5); WHITE BLOOD COUNT 7.1 K/uL (4.8-10.8)
[2017-04-02 13:57] LABS: ALB/GLOB RATIO 0.9 (1.0-2.1); ALBUMIN 3.2 g/dL (3.5-5.0); CALCIUM 7.1 mg/dL (8.4-10.2)
[2017-04-02 14:20] LABS: TROPONIN I 0.285 ng/mL (0.00-0.120)
--- NOTE | 2017-04-02 15:17 | CP.CCUPN ---
CCU Subjective - Physician Review Events Since Last Encounter (Free Text): 04/02/17 15:13 67 male with history of HTN, CHF, renal insufficiency, COPD, anemia, seizer came complaining of worsening SOB, no fever, no cough, no chest pain, patient was started on BIPAP in the emergency room for respiratory distress, patient awake, alert, oriented, move all extremities, follow commands, events reviewed CCU Objective - Vital Signs / Intake & Output Vital Signs (Last 4 hours): Vital Signs Pulse BP Pulse Ox 04/02/17 14:36 177/124 H 04/02/17 14:18 86 L 04/02/17 13:42 151 H 170/98 H 100 04/02/17 13:30 85 L 04/02/17 13:16 110 H - Physical Exam Head: Positive for: Atraumatic, Normocephalic Pupils: Positive for: PERRL Conjunctiva: Positive for: Normal Ears: Positive for: Normal Mouth: Positive for: Moist Mucous Membranes Nose (External): Positive for: Atraumatic Neck: Positive for: Normal Range of Motion Respiratory/Chest: Positive for: Rales Cardiovascular: Positive for: Irregular Rhythm Abdomen: Positive for: Normal Bowel Sounds Upper Extremity: Positive for: Normal Inspection Lower Extremity: Positive for: Edema Neurological: Positive for: Speech Normal Psychiatric: Positive for: Alert, Oriented x 3 - Medications Active Medications: Active Medications Generic Name Dose Route Start Last Admin Trade Name Freq PRN Reason Stop Dose Admin Diltiazem HCl 125 mg/ Sodium 125 mls @ 5 mls/hr 04/02/17 13:10 04/02/17 13:39 Chloride IV 04/03/17 13:09 5 mls/hr .Q24H ONE Administration Protocol 5 MG/HR - Patient Studies Lab Studies: Lab Studies 04/02/17 Range/Units 13:11 pCO2 31 L (35-45) mm/Hg pO2 336 H (80-100) mm/Hg HCO3 19.3 L (21-28) mmol/L ABG pH 7.35 (7.35-7.45) ABG Total CO2 18.1 L (22-28) mmol/L ABG O2 Saturation 100.3 H (95-98) % ABG Base Excess -7.3 L (-2.0-3.0) mmol/L Nahun Test Yes ABG Potassium 4.6 (3.6-5.2) mmol/L A-a O2 Difference 338.0 mm/Hg Sodium 137.0 (132-148) mmol/L Chloride 111.0 H (98-107) mmol/L Glucose 100 (75-110) mg/dL Lactate 0.8 (0.7-2.1) mmol/L Mechanical Rate 14 FiO2 100.0 % Inspiratory BiPAP 12 Expiratory BiPAP 6 Arterial Blood Potassium 4.6 (3.6-5.2) mmol/L Laboratory Results - last 24 hr 04/02/17 13:11 pCO2 31 L pO2 336 H HCO3 19.3 L ABG pH 7.35 ABG Total CO2 18.1 L ABG O2 Saturation 100.3 H ABG Base Excess -7.3 L Nahun Test Yes ABG Potassium 4.6 A-a O2 Difference 338.0 Sodium 137.0 Chloride 111.0 H Glucose 100 Lactate 0.8 Mechanical Rate 14 FiO2 100.0 Inspiratory BiPAP 12 Expiratory BiPAP 6 Arterial Blood Potassium 4.6 EKG/Cardiology Studies: Cardiology / EKG Studies 04/02/17 13:35 ELECTROCARDIOGRAM Stat Comment: Mode Of Transportation: Reason For Exam: chest pain Isolation: Contact Assessment/Plan - Assessment and Plan (Free Text) Assessment: A/P Respiratory insufficiency, CHF, HTN, NSTEMI, COPD, renal failure, seizer, anemia , MAT vs A fib - BIPAP - Lasex, asprin, heparin, nitrates, morphine, - Renal consult - Cardiology consult - Echocardiogram - Lower extremities venous Doppler - Cardiac enzymes - BP control Critical care 35 min
--- NOTE | 2017-04-02 15:51 | RAD ---
HISTORY: cough COMPARISON: Comparison made with prior study 03/14/[address] scan of the chest dated 03/19/2017. . FINDINGS: LUNGS: Diffuse bilateral infiltrates with more dense appearing changes in the right upper lobe and both lung bases. Rule out pneumonia and/or pulmonary venous congestion. Bilateral effusions left larger than right. PLEURA: As above no pneumothorax seen. CARDIOVASCULAR: Cardiomegaly. OSSEOUS STRUCTURES: No significant abnormalities. VISUALIZED UPPER ABDOMEN: Normal. OTHER FINDINGS: None. IMPRESSION: Cardiomegaly. Diffuse bilateral infiltrates with more dense appearing changes in the right upper lobe and both lung bases. Rule out pneumonia and/or pulmonary venous congestion. Bilateral effusions left larger than right.
[2017-04-02] MEDS ORDERED: Heparin 25,000units in D5W 25,000 UNITS/250 ML BAG IV SCH (17:15)
--- NOTE | 2017-04-02 17:48 | CP.PCM.HP ---
History of Present Illness - History of Present Illness History of Present Illness: 67 y/o homeless M with PMH including HTN, CHF, CKD, ANCA vasculitis and DVT of RUE (detected on 02/04/17) presents to ED with roughly 4 day history of progressive SOB. Patient reports noticing increasing SOB, lower extremity edema and progressive exercise intolerance which became associated with chest pain today. Chest pain was retrosternal, non radiating, "pressure" like in quality and 9/10 intensity. Patient also notes associated subjective fever, chills and cough productive of blood tinged mucus. He denies headache, visual disturbances , abdominal pain or focal weakness. He had one episode of non-bloody emesis prior to arrival and had 2 watery, non-bloody BMs daily over the last 2 days. At his baseline, patient is able to tolerate walking up to 1/2 a block but has been SOB even at rest over the last several days. He has been prescribed multiple medications for comorbidities but has only been taking lasix irregularly in addition to another unknown antihypertensive agent. On prior visit, he was determined as not a good candidate for rn long term care anticoagulation due to his poor compliance and risk for bleeding. PMD: [facility] Present on Admission - Present on Admission Any Indicators Present on Admission: Yes History of DVT/PE: Yes History of Uncontrolled Diabetes: No Urinary Catheter: No Decubitus Ulcer Present: No Review of Systems - Constitutional Constitutional: Chills, Fatigue, Fever - EENT Eyes: absent: Change in Vision - Cardiovascular Cardiovascular: Chest Pain, Chest Pain at Rest, Dyspnea, Leg Edema, Rapid Heart Rate. absent: Pain Radiating to Arm/Neck/Jaw - Respiratory Respiratory: Cough, Dyspnea - Gastrointestinal Gastrointestinal: Vomiting. absent: Abdominal Pain, Diarrhea, Hematemesis, Nausea - Genitourinary Genitourinary: absent: Dysuria, Hematuria (no gross hematuria), Urinary Urgency - Neurological Neurological: absent: Confusion, Focal Weakness, Headaches Past Patient History - Infectious Disease Hx of Infectious Diseases: None - Past Medical History & Family History Past Medical History?: Yes - Past Social History Smoking Status: Former Smoker - CARDIAC Hx Cardiac Disorders: Yes Hx Hypertension: Yes - PULMONARY Hx Respiratory Disorders: Yes Hx Chronic Obstructive Pulmonary Disease (COPD): Yes - RENAL Hx Chronic Kidney Disease: Yes - ENDOCRINE/METABOLIC Hx Endocrine Disorders: No - HEMATOLOGICAL/ONCOLOGICAL Hx Anemia: Yes - GASTROINTESTINAL Hx Gastrointestinal Disorders: Yes Hx Hemorrhoids: Yes - GENITOURINARY/GYNECOLOGICAL Hx Genitourinary Disorders: No - PSYCHIATRIC Hx Psychophysiologic Disorder: Yes - SURGICAL HISTORY Hx Coronary Stent: No - ANESTHESIA Hx Anesthesia: Yes Hx Anesthesia Reactions: No Meds Allergies/Adverse Reactions: Allergies Allergy/AdvReac Type Severity Reaction Status Date / Time sulfamethoxazole Allergy RASH Verified 03/06/17 17:55 [From ] trimethoprim [From ] Allergy RASH Verified 03/06/17 17:55 Physical Exam - Constitutional Appears: Other (Uncomfortable, Short of breath. No acute distress. ) - Eye Exam Eye Exam: EOMI, PERRL. absent: Scleral icterus - ENT Exam ENT Exam: Mucous Membranes Moist - Neck Exam Neck exam: Positive for: Full Rom, Normal Inspection - Respiratory Exam Respiratory Exam: Chest Wall Tenderness, Rales, Rhonchi. absent: Accessory Muscle Use, Clear to Auscultation Bilateral Additional comments: B/L air entry present with diffuse rales and rhonchii. No retractions or signs of acute respiratory distress noted. - Cardiovascular Exam Cardiovascular Exam: Tachycardia, +S1, +S2. absent: Systolic Murmur - GI/Abdominal Exam GI & Abdominal Exam: Normal Bowel Sounds, Soft. absent: Distended, Rebound, Tenderness - Extremities Exam Extremities exam: Positive for: calf tenderness (b/l) Additional comments: B/L lower extremity pitting edema (3+) present up to knees. Pulses poorly palpable secondary to swelling. Erythema and warmth also present b/l extending to mid calf although no focal ulcerations or excoriations are present. - Neurological Exam Neurological exam: Alert, CN II-XII Intact, Oriented x3 - Psychiatric Exam Psychiatric exam: Normal Affect, Normal Mood - Skin Skin Exam: Erythema (Lower extremity ), Intact, Warm Results - Vital Signs Recent Vital Signs: Last Vital Signs Temp 98.8 F 04/02/17 12:41 Pulse 116 H 04/02/17 15:18 Resp 36 H 04/02/17 15:18 BP 177/124 H 04/02/17 15:18 Pulse Ox 100 04/02/17 15:18 - Labs Result Diagrams: 04/02/17 13:00 04/02/17 13:00 Labs: Laboratory Results - last 24 hr 04/02/17 13:11 pCO2 31 L pO2 336 H HCO3 19.3 L ABG pH 7.35 ABG Total CO2 18.1 L ABG O2 Saturation 100.3 H ABG Base Excess -7.3 L Nahun Test Yes ABG Potassium 4.6 A-a O2 Difference 338.0 Sodium 137.0 Chloride 111.0 H Glucose 100 Lactate 0.8 Mechanical Rate 14 FiO2 100.0 Inspiratory BiPAP 12 Expiratory BiPAP 6 Arterial Blood Potassium 4.6 Assessment & Plan - Assessment and Plan (Free Text) Assessment: 67 y/o homeless male with PMH including HTN, CHF, CKD, ANCA vasculitis and DVT of RUE (detected on 02/04/17) presented to ED with roughly 4 day history of progressive SOB, lower extremity edema, exercise intolerance and retrosternal chest pain. Plan: NSTEMI -Initial EKG in ER detected tachycardia with signs of MAT and possible lateral ischemia -Cardizem 25mg IV STAT administered followed by starting of Cardizem drip. Subsequent EKG revealed sinus tachycardia -ASA 325mg PO, Morphine 2mg IV and Nitroglycerin TOP given -Heparin started per protocol -Morphine 2mg IV PRN -Coreg 3.125mg PO Q12 -Repeat EKG -Admitted to ICU for close monitoring -Cardiology consult requested Respiratory insufficiency -Etiology likely secondary to NSTEMI vs acute CHF exacerbation -Patient placed on BIPAP in ER -Current settings: IPAP 12 / EPAP 6 / 60% O2, Satting at 100% -Will wean as tolerated -Follow ABG Systolic CHF with acute exacerbation -Last echo performed 12/08/16 revealing mild LVH and a mildly impaired EF of 45-50 %. Inferolateral hypokinesis was also detected. -ProBNP: 167,000 -IV Lasix 60mg given x2 -Carvedilol 3.125mg PO Q12h -Not a good candidate for MAN-i due to SHERRY at this time -Strict I/Os. Daily weights. -Repeat bedside echo Acute Renal Failure -BUN/Cr: 77/6.0 compared to 52/3.2 on previous admission from 10 days ago -Etiology undetermined -Nephrology consulted -Possible dialysis Shortess of Breath with History of DVT -RUE DVT detected on 02/04/17 however patient was not a good candidate for [place] [facility] anticoagulation -D-dimer also elevated at admission but of undetermined significance -B/L upper and lower extremity U/S ordered -Will consider V/Q scan -On heparin drip HTN -Uncontrolled secondary to medication non-adherence -Amlodipine 10mg PO daily -Clonidine 0.3mg PO bid -Carvedilol was started by cardio at admission -Home Labetalol 400mg Q12h and Hydralazine 20mg Q8H held DVT Prophylaxis -On Heparin drip -SCDs
[2017-04-02] MEDS: Nitroglycerin 2% 15 INCH/30 GM TUBE TOP SCH (19:49)
--- NOTE | 2017-04-02 20:30 | CON ---
DATE: 04/02/2017 REASON FOR CONSULTATION: Shortness of breath. HISTORY OF PRESENT ILLNESS: The patient is a 67-year-old male who has a history of congesti ve heart failure, history of pulmonary TB in the past, history of chronic renal insufficiency. Biops y was suggestive of vasculitis at that time and the patient was treated with steroid therapy a few mo nths ago. He presented because of shortness of breath and required BiPAP. The patient denies any fe spencer or chills. The patient denies any hemoptysis. MEDICATIONS: The patient is currently on Cardizem infusion at 5 mg per hour and nitro paste 1 inch q . 6 hours. He did receive earlier digoxin 0.25 mg as a single intravenous dose, Lasix at 40 mg intra venously as a single dose and aspirin 325 mg orally. PHYSICAL EXAMINATION: GENERAL: The patient is an elderly male who is mildly tachypneic, but does not appear to be in acute distress. VITAL SIGNS: Blood pressure 166/100, heart rate 116, respirations 36, temperature 98.8. HEENT: Pale conjunctivae. CHEST: Bilateral dry crepitations. HEART: S1, S2 regular. ABDOMEN: Soft. EXTREMITIES: 2+ pitting edema. LABORATORY DATA: Hemoglobin and hematocrit 8.4 and 26.2, white count and platelet count are within n ormal limits. D-dimer is 1.83. SMA-7: Sodium 138, potassium 4.6, chloride 109, CO2 15, glucose 100 , BUN 77, creatinine 6.0. Troponin 0.285. ProBNP is 167,000. EKG revealed sinus tachycardia at a r ate of 151, septal infarct of indeterminate age. Echocardiography study performed in December of s year revealed an ejection fraction in the range of 45% to 50%, mild concentric LVH with inferolater al hypokinesis. Chest x-ray revealed normal cardiac silhouette, mild CHF, right upper lobe and middl e lobe infiltrate. ASSESSMENT: 1. Exacerbation of congestive heart failure. 2. History of pulmonary tuberculosis. 3. Worsening renal insufficiency. 4. Consider non-ST elevation myocardial infarction. RECOMMENDATIONS: Start aspirin 81 mg once a day, Plavix 75 mg once a day, subcutaneous heparin 5000 units q. 8 hours, Coreg 3.125 mg twice a day. The patient is not a suitable candidate for MAN inhibi tors or Aldactone therapy. Cardiac catheterization will not be justified in view of worsening renal function and nephrology evaluation is recommended. Hi Miles MD cc: [id number] TT: 04/02/2017 20:30:09 Confirmation # [id number] Dictation # [id number] mn
[2017-04-02] MEDS: Fluticasone-Salmeterol 500-50mcg Diskus IH SCH (20:59)
[2017-04-03] MEDS: Nitroglycerin 2% 15 INCH/30 GM TUBE TOP SCH ×4 (01:30→18:40)
[2017-04-03 01:31] LABS: SQUAMOUS EPITHIAL < 1 /hpf (0-5); URINE BACTERIA RARE (<OCC); URINE BILIRUBIN NEGATIVE (NEGATIVE); URINE BLOOD LARGE (NEGATIVE); URINE CLARITY SLIGHTY-CLOUDY (Clear); URINE COLOR YELLOW (YELLOW); URINE GLUCOSE (UA) 150 mg/dL (Normal); URINE NITRATE NEGATIVE (NEGATIVE); URINE PROTEIN >=500 mg/dL (NEGATIVE); URINE UROBILINOGEN 0.2-1.0 mg/dL (0.2-1.0)
[2017-04-03 01:35] LABS: URINE LEUKOCYTE ESTERASE SMALL Leu/uL (Negative)
[2017-04-03 01:45] LABS: CREATININE, RANDOM URINE 86.4 mg/dL
[2017-04-03] MEDS: Heparin 25,000units in D5W 25,000 UNITS/250 ML BAG IV SCH ×2 (04:45→16:27)
[2017-04-03 05:55] LABS: HEMOGLOBIN 8.5 g/dL (12.0-18.0); MEAN CELL VOLUME 89.8 fl (80.0-94.0); MEAN CORPUSCULAR HEMOGLOBIN 29.3 pg (27.0-31.0); MEAN CORPUSCULAR HGB CONC 32.7 g/dL (33.0-37.0); RBC 2.88 Mil/uL (4.40-5.90); RED CELL DISTRIBUTION WIDTH 18.7 % (11.5-14.5); WHITE BLOOD COUNT 6.7 K/uL (4.8-10.8)
[2017-04-03 06:13] LABS: ALBUMIN 3.1 g/dL (3.5-5.0)
[2017-04-03 06:18] LABS: ALB/GLOB RATIO 0.9 (1.0-2.1)
--- NOTE | 2017-04-03 08:57 | CP.PCM.PN ---
Subjective - Date & Time of Evaluation Date of Evaluation: 04/03/17 Time of Evaluation: 07:05 - Subjective Subjective: 67 y/o admitted with possible NSTEMI and respiratory distress being being f/u for respiratory status, worsening renal function and possible NSTEMI. Patient was seen and examined in ICU unit this morning. Patient still reporting SOB, but denies chest pain, nausea, vomiting, abdominal pain. Reports feeling weak, and thirsty. Monitor VS: BP: 149/100, HR: 84/min, O2sat : 100 % in BiPAP, FiO2: 60. Reports one semi-liquid non bloody diarrhea yesterday. Objective - Vital Signs/Intake and Output Vital Signs (last 24 hours): Temp Pulse Resp BP Pulse Ox 97.6 F 80 19 156/98 H 100 04/03/17 08:00 04/03/17 08:00 04/03/17 08:00 04/03/17 08:00 04/03/17 08:00 Intake and Output: 04/03/17 04/03/17 06:59 18:59 Intake Total 387 Output Total 150 Balance 237 - Medications Medications: Current Medications Amlodipine Besylate (Norvasc) 10 mg PO DAILY [facility] Aspirin (Aspirin Chewable) 81 mg PO DAILY [facility] Atorvastatin Calcium (Lipitor) 20 mg PO HS [facility] Carvedilol (Coreg) 3.125 mg PO Q12 [facility] Last Admin: 04/02/17 21:00 Dose: 3.125 mg Clonidine HCl (Catapres) 0.3 mg PO BID [facility] Clopidogrel Bisulfate (Plavix) 75 mg PO DAILY [facility] Ferrous Sulfate (Feosol) 325 mg PO DAILY [facility] Furosemide (Lasix) 60 mg IVP BID [facility] Diltiazem HCl 125 mg/ Sodium (Chloride) 125 mls @ 5 mls/hr IV .Q24H ONE; 5 MG/ HR PRN Reason: Protocol Stop: 04/03/17 13:09 Last Titration: 04/03/17 03:59 Dose: 2.5 mg/hr, 2.5 mls/hr Heparin Sodium/Dextrose (Heparin 25,000 Units/250ml In D5w) 25,000 units in 250 mls @ 10 mls/hr IV .Q24H [facility]; Per Protocol PRN Reason: Protocol Last Admin: 04/02/17 20:55 Dose: 10 mls/hr Heparin Sodium/Dextrose (Heparin 25,000 Units/250ml In D5w) 25,000 units in 250 mls @ 12 mls/hr IV .[id number] [facility] PRN Reason: Protocol Last Admin: 04/03/17 04:45 Dose: 12 mls/hr Nitroglycerin (Nitro-Bid 2% Oint) 1 inch TOP Q6H [facility] Last Admin: 04/03/17 01:30 Dose: 1 inch Pantoprazole Sodium (Protonix Ec Tab) 40 mg PO DAILY [facility] Fluticasone/Salmeterol (Advair Diskus 500/50) 1 puff IH Q12 [facility] Last Admin: 04/02/17 20:59 Dose: 1 puff Sevelamer Carbonate (Renvela) 0.8 gm PO TIDWM [facility] Sodium Bicarbonate (Sodium Bicarbonate Tab) 650 mg PO BID [facility] - Labs Labs: 04/03/17 05:41 04/03/17 05:41 APTT 35.4 SECONDS (23.3-32.5) H 04/03/17 03:43 - ENT Exam ENT Exam: Mucous Membranes Moist - Respiratory Exam Additional comments: moderate increased respiratory rate. Mild decreased breath sounds, fine crackles in right lower lobe. No rhonchi or wheezing. - Cardiovascular Exam Cardiovascular Exam: REGULAR RHYTHM, +S1, +S2 - GI/Abdominal Exam GI & Abdominal Exam: Distended, Soft, Normal Bowel Sounds. absent: Guarding, Rigid, Tenderness - Extremities Exam Additional comments: Lower extremities bilateral edema below knees pitting 3+ - Neurological Exam Neurological Exam: Alert, Awake, Oriented x3 - Skin Skin Exam: Dry, Intact, Pallor Assessment and Plan - Assessment and Plan (Free Text) Assessment: 67 y/o homeless male with PMH including HTN, CHF, CKD, ANCA vasculitis and DVT of RUE (detected on 02/04/17) admitted for management of NSTEMI, respiratory distress, and worsening renal function. Plan: NSTEMI -ICU monitoring -Heparin started per protocol -C/w aspiring 81 mg daily -C/w plavix 75 mg daily -Coreg 3.125mg PO Q12 -F/U repeat EKG -F/U PTT -Not a good candidate for MAN-i due to impaired renal function -Troponin I X 2 trending up 0.2850, 0.5490 -Cardiology consult appreciated, f/u recommendations Respiratory Distress -Etiology likely secondary to NSTEMI vs acute CHF exacerbation vs worsening of ANCA vasculitis -c/w BIPAP , O2 Sat at 100%, and consider weaning as tolerated - ABG: normal anion gap compensated metabolic acidosis (9.7) -Non compliance with home medications -F/U repeat ABG Systolic CHF with acute exacerbation -Last echo performed 12/08/16 revealing mild LVH and a mildly impaired EF of 45-50 %. Inferolateral hypokinesis was also detected. -ProBNP: 167,000 -IV Lasix 60mg given once today -Carvedilol 3.125mg PO Q12h -Not a good candidate for MAN-i or Aldactone due to impaired renal function -Strict I/Os. Daily weights. -Repeat bedside echo Acute on Chronic Kidney disease CKD most likely secondary to ANCA vasculitis -Patient is no complaint with medications -BUN/Cr: worsening 84/6.4 -Nephrology consulted, on board -Possible a good candidate for Dialysis History of DVT in RUE -RUE DVT detected on 02/04/17 however patient was not a good candidate for [place] [facility] anticoagulation -D-dimer also elevated at admission but of undetermined significance -B/L upper extremities US showed partial compression of the right basilic vein, possible due to a chronic thrombus -B/L lower extremities US showed no evidence of DVT -Will consider V/Q scan -On heparin drip HTN -Most likely secondary to medication non-adherence and worsening renal function -Amlodipine 10mg PO daily -Clonidine 0.3mg PO bid -Carvedilol was started by cardio at admission -Home Labetalol 400mg Q12h - Hydralazine 20mg Q8H held DVT Prophylaxis -On Heparin drip -SCDs
[2017-04-03] MEDS: Fluticasone-Salmeterol 500-50mcg Diskus IH SCH ×2 (09:15→21:00)
[2017-04-03] MEDS: Pantoprazole 40 mg EC Tab PO SCH (09:31)
[2017-04-03] MEDS: Sevelamer Carb 0.8 gm/Packet PO SCH ×3 (09:31→16:29)
--- NOTE | 2017-04-03 10:27 | RAD ---
PROCEDURE: CHEST RADIOGRAPH, 1 VIEW HISTORY: CHF COMPARISON: 04/02/2017 FINDINGS: LUNGS: Multifocal hazy opacities throughout both lungs slightly increased from the prior radiograph. PLEURA: Left-sided pleural effusion. CARDIOVASCULAR: Enlarged cardiomediastinal silhouette. OSSEOUS STRUCTURES: The osseous structures demonstrate degenerative changes. VISUALIZED UPPER ABDOMEN: Normal. OTHER FINDINGS: None. IMPRESSION: Multifocal hazy opacities throughout both lungs slightly increased from prior radiograph. The official diagnosis includes edema, hemorrhage, multifocal pneumonia. Left-sided pleural effusion.
[2017-04-03 13:49] LABS: ABG ALLEN TEST YES; ARTERIAL BLOOD GAS HCO3 20.1 mmol/L (21-28); ARTERIAL BLOOD GAS O2 SAT 100.6 % (95-98); ARTERIAL BLOOD GAS PCO2 30 mm/Hg (35-45); ARTERIAL BLOOD GAS PH 7.38 (7.35-7.45); ARTERIAL BLOOD GAS PO2 99 mm/Hg (80-100); ARTERIAL BLOOD GAS TCO2 18.6 mmol/L (22-28)
--- NOTE | 2017-04-03 13:50 | US ---
PROCEDURE: Bilateral Upper Extremity Venous Doppler HISTORY: H/O DVT in upper extremity COMPARISON: 03/11/2017. TECHNIQUE: Bilateral extremity deep veins, including the lower internal jugular, subclavian, axillary and brachial veins, were evaluated flow, compressibility and respiratory phasicity. FINDINGS: Normal flow, compressibility and respiratory phasicity was observed in the left upper extremity deep veins. Normal flow, compressibility and respiratory phasicity was observed in the right upper extremity deep veins. Partial compression of the right basilic vein. Underlying chronic thrombus cannot be excluded. Right IJV not imaged. IMPRESSION: Partial compression of the right basilic vein. This is likely due to chronic thrombus. No other thrombus identified.
--- NOTE | 2017-04-03 13:55 | US ---
PROCEDURE: Bilateral lower extremity venous duplex Doppler. HISTORY: r/o dvt COMPARISON: None available. TECHNIQUE: Bilateral common femoral, superficial femoral, popliteal and posterior tibial veins were evaluated. Flow was assessed with color Doppler, compressibility, assessment of phasic flow and augmentation response. FINDINGS: COMMON FEMORAL VEIN: Right CFV: Unremarkable. Left CFV: Unremarkable. SUPERFICIAL FEMORAL VEIN: Right SFV: Unremarkable. Left SFV: Unremarkable. POPLITEAL VEIN: Right Popliteal: Unremarkable. Left Popliteal: Unremarkable. POSTERIOR TIBIAL VEIN: Right PTV: Unremarkable. Left PTV: Unremarkable. OTHER FINDINGS: Bilateral lower extremity soft tissue edema. IMPRESSION: No evidence of deep venous thrombosis.
--- NOTE | 2017-04-03 14:18 | CP.CCUPN ---
CCU Subjective - Physician Review Events Since Last Encounter (Free Text): 04/03/17 17:18 The Patient was seen and examined at the bedside, Medical records reviewed, all clinical/lab/hemodynamic/radiographic data were reviewed and management issues were discussed and formulated, Events reviewed 67 Y/O Male with PMHx of of HTN, CHF, ANCA vasculitis, COPD, anemia, seizer Depression, Deep Vein Thrombosis (RUE), Pneumonia and Chronic Kidney Disease. Who was initially presented to the ER with complaining of 4-day history of worsening SOB, No chest pain, fefer/chills admitted to ICU Respiratory insufficiency from Systolic CHF with acute exacerbation with possible NSTEMI. Pt on IV Lasix, heparin and cardiazem drips Has been BIPAP dependent, desaturating on NC/VM Awake, follow commands Afebrile CCU Objective - Vital Signs / Intake & Output Vital Signs (Last 4 hours): Vital Signs Temp Pulse Resp BP Pulse Ox 04/03/17 13:59 87 26 H 162/85 H 100 04/03/17 12:30 88 04/03/17 12:00 97.5 F L 88 23 158/98 H 99 Intake and Output (Last 8hrs): Intake & Output 04/02/17 04/03/17 04/03/17 22:59 06:59 14:59 Intake Total 530 117 84 Output Total 50 150 Balance 480 -33 84 Weight 185 lb Intake: IV 50 117 84 Oral 480 Output: Urine 50 150 Urethral (Wang) 50 150 - Physical Exam Head: Positive for: Atraumatic, Normocephalic Pupils: Positive for: PERRL Conjunctiva: Positive for: Normal Ears: Positive for: Normal Mouth: Positive for: Moist Mucous Membranes Nose (External): Positive for: Atraumatic Neck: Positive for: Normal Range of Motion Respiratory/Chest: Positive for: Good Air Exchange, Respiratory Distress (Mild) , Rales, Tachypneic. Negative for: Clear to Auscultation, Wheezes, Rhonchi Cardiovascular: Positive for: Irregular Rhythm, Peripheal Pulses Present, Tachycardic Abdomen: Positive for: Normal Bowel Sounds. Negative for: Tenderness, Distention Upper Extremity: Positive for: Normal Inspection Lower Extremity: Positive for: Edema Neurological: Positive for: GCS=15, CN II-XII Intact, Speech Normal Psychiatric: Positive for: Alert, Oriented x 3, Normal Insight, Normal Concentration - Medications Active Medications: Active Medications Generic Name Dose Route Start Last Admin Trade Name Fina PRN Reason Stop Dose Admin Amlodipine Besylate 10 mg 04/03/17 09:00 04/03/17 09:30 Norvasc PO 10 mg DAILY ZORAIDA Administration Aspirin 81 mg 04/03/17 09:00 04/03/17 09:15 Aspirin Chewable PO 81 mg DAILY ZORAIDA Administration Atorvastatin Calcium 20 mg 04/03/17 22:00 Lipitor PO HS ZORAIDA Carvedilol 3.125 mg 04/02/17 21:00 04/03/17 09:27 Coreg PO 3.125 mg Q12 ZORAIDA Administration Clonidine HCl 0.3 mg 04/03/17 09:00 04/03/17 09:16 Catapres PO 0.3 mg BID ZORAIDA Administration Clopidogrel Bisulfate 75 mg 04/03/17 09:00 04/03/17 09:31 Plavix PO 75 mg DAILY ZORAIDA Administration Ferrous Sulfate 325 mg 04/03/17 09:00 04/03/17 09:28 Feosol PO 325 mg DAILY ZORAIDA Administration Heparin Sodium (Porcine) 2,600 units 04/03/17 13:29 Heparin Lock Flush IVF 04/03/17 13:30 ONCE ONE Heparin Sodium/Dextrose 25,000 units in 250 mls @ 10 mls/hr 04/02/17 17:15 20:55 Heparin 25,000 Units/250ml In D5w IV 10 mls/hr .Q24H ZORAIDA Administration Protocol Per Protocol Heparin Sodium/Dextrose 25,000 units in 250 mls @ 12 mls/hr 04/03/17 04:45 13:31 Heparin 25,000 Units/250ml In D5w IV 14 mls/hr .[id number] ZORAIDA Titration Protocol Methylprednisolone 125 mg 04/03/17 13:22 Solu-Medrol IVP 04/03/17 13:23 ONCE ONE Nitroglycerin 1 inch 04/02/17 19:00 04/03/17 12:14 Nitro-Bid 2% Oint TOP 1 inch Q6H ZORAIDA Administration Pantoprazole Sodium 40 mg 04/03/17 09:00 04/03/17 09:31 Protonix Ec Tab PO 40 mg DAILY ZORAIDA Administration Fluticasone/Salmeterol 1 puff 04/02/17 21:00 04/03/17 09:15 Advair Diskus 500/50 IH 1 puff Q12 ZORAIDA Administration Sevelamer Carbonate 0.8 gm 04/03/17 08:00 04/03/17 12:15 Renvela PO 0.8 gm TIDWM ZORAIDA Administration Sodium Bicarbonate 650 mg 04/03/17 09:00 04/03/17 09:31 Sodium Bicarbonate Tab PO 650 mg BID ZORAIDA Administration - Patient Studies Lab Studies: Microbiology Studies 04/02/17 13:40 Blood Culture - Preliminary Blood-Venous NO GROWTH AFTER 24 HOURS 04/02/17 17:49 MRSA Culture (Admit) - Final Naris MRSA NOT DETECTED Lab Studies 04/03/17 04/03/17 04/03/17 Range/Units 13:40 12:56 12:56 WBC (4.8-10.8) K/uL RBC (4.40-5.90) Mil/uL Hgb (12.0-18.0) g/dL Hct (35.0-51.0) % MCV (80.0-94.0) fl MCH (27.0-31.0) pg MCHC (33.0-37.0) g/dL RDW (11.5-14.5) % Plt Count (130-400) K/uL APTT 33.9 H (23.3-32.5) SECONDS pCO2 30 L (35-45) mm/Hg pO2 99 (80-100) mm/Hg HCO3 20.1 L (21-28) mmol/L ABG pH 7.38 (7.35-7.45) ABG Total CO2 18.6 L (22-28) mmol/L ABG O2 Saturation 100.6 H (95-98) % ABG Base Excess -6.2 L (-2.0-3.0) mmol/L Nahun Test Yes ABG Potassium 5.0 (3.6-5.2) mmol/L A-a O2 Difference 291.0 mm/Hg Glucose 186 H (75-110) mg/dL Lactate 0.7 (0.7-2.1) mmol/L Vent Mode Bipap Mechanical Rate 12 FiO2 60.0 % Tidal Volume 0 PEEP 0 Pressure Support 0 Inspiratory BiPAP 12 Expiratory BiPAP 6 Sodium 135.0 (132-148) mmol/l Potassium (3.6-5.0) MMOL/L Chloride 108.0 H (98-107) mmol/L Carbon Dioxide (22-30) mmol/L Anion Gap (10-20) BUN (9-20) mg/dl Creatinine (0.8-1.5) mg/dL Est GFR ( Amer) Est GFR (Non-Af Amer) Random Glucose (75-110) mg/dL Calcium (8.4-10.2) mg/dL Iron (49-181) ug/dL Total Bilirubin (0.2-1.3) mg/dl AST (17-59) U/L ALT (21-72) U/L Alkaline Phosphatase (38-126) U/L Troponin I 0.3840 H* (0.00-0.120) ng/mL Total Protein (6.3-8.2) G/DL Albumin (3.5-5.0) g/dL Globulin (2.2-3.9) gm/dL Albumin/Globulin Ratio (1.0-2.1) Triglycerides (0-149) mg/DL Cholesterol (0-199) mg/dL LDL Cholesterol Direct (0-129) mg/dL HDL Cholesterol (30-70) MG/DL 25-OH Vitamin D Total (30.0-100.0) NG/ML Procalcitonin (0.19-0.49) NG/ML TSH 3rd Generation (0.46-4.68) mIU/ML Arterial Blood Potassium 5.0 (3.6-5.2) mmol/L Urine Color (YELLOW) Urine Clarity (Clear) Urine pH (5.0-8.0) Ur Specific [place] (1.003-1.030) Urine Protein (NEGATIVE) mg/dL Urine Glucose (UA) (Normal) mg/dL Urine Ketones (NEGATIVE) mg/dL Urine Blood (NEGATIVE) Urine Nitrate (NEGATIVE) Urine Bilirubin (NEGATIVE) Urine Urobilinogen (0.2-1.0) mg/dL Ur Leukocyte Esterase (Negative) Thai/uL Urine RBC (Auto) (0-3) /hpf Urine Microscopic WBC (0-5) /hpf Ur Squamous Epith Cells (0-5) /hpf Urine Bacteria (<OCC) Urine Yeast (Budding) (NEGATIVE) /hpf Ur Random Creatinine mg/dL Ur Random Sodium meq/L Ur Random Potassium mmol/L Ur Random Phosphorus mg/dL 04/03/17 04/03/17 04/03/17 Range/Units 05:41 05:41 05:41 WBC 6.7 (4.8-10.8) K/uL RBC 2.88 L (4.40-5.90) Mil/uL Hgb 8.5 L (12.0-18.0) g/dL Hct 25.9 L (35.0-51.0) % MCV 89.8 (80.0-94.0) fl MCH 29.3 (27.0-31.0) pg MCHC 32.7 L (33.0-37.0) g/dL RDW 18.7 H (11.5-14.5) % Plt Count 178 (130-400) K/uL APTT (23.3-32.5) SECONDS pCO2 (35-45) mm/Hg pO2 (80-100) mm/Hg HCO3 (21-28) mmol/L ABG pH (7.35-7.45) ABG Total CO2 (22-28) mmol/L ABG O2 Saturation (95-98) % ABG Base Excess (-2.0-3.0) mmol/L Nahun Test ABG Potassium (3.6-5.2) mmol/L A-a O2 Difference mm/Hg Glucose (75-110) mg/dL Lactate (0.7-2.1) mmol/L Vent Mode Mechanical Rate FiO2 % Tidal Volume PEEP Pressure Support Inspiratory BiPAP Expiratory BiPAP Sodium 137 (132-148) mmol/l Potassium 5.4 H (3.6-5.0) MMOL/L Chloride 107 (98-107) mmol/L Carbon Dioxide 16 L (22-30) mmol/L Anion Gap 19 (10-20) BUN 84 H (9-20) mg/dl Creatinine 6.4 H (0.8-1.5) mg/dL Est GFR ( Amer) 11 Est GFR (Non-Af Amer) 9 Random Glucose 172 H (75-110) mg/dL Calcium 7.0 L (8.4-10.2) mg/dL Iron 40 L (49-181) ug/dL Total Bilirubin 0.3 (0.2-1.3) mg/dl AST 21 (17-59) U/L ALT 17 L (21-72) U/L Alkaline Phosphatase 58 (38-126) U/L Troponin I (0.00-0.120) ng/mL Total Protein 6.7 (6.3-8.2) G/DL Albumin 3.1 L (3.5-5.0) g/dL Globulin 3.6 (2.2-3.9) gm/dL Albumin/Globulin Ratio 0.9 L (1.0-2.1) Triglycerides (0-149) mg/DL Cholesterol (0-199) mg/dL LDL Cholesterol Direct (0-129) mg/dL HDL Cholesterol (30-70) MG/DL 25-OH Vitamin D Total (30.0-100.0) NG/ML Procalcitonin (0.19-0.49) NG/ML TSH 3rd Generation (0.46-4.68) mIU/ML Arterial Blood Potassium (3.6-5.2) mmol/L Urine Color (YELLOW) Urine Clarity (Clear) Urine pH (5.0-8.0) Ur Specific [place] (1.003-1.030) Urine Protein (NEGATIVE) mg/dL Urine Glucose (UA) (Normal) mg/dL Urine Ketones (NEGATIVE) mg/dL Urine Blood (NEGATIVE) Urine Nitrate (NEGATIVE) Urine Bilirubin (NEGATIVE) Urine Urobilinogen (0.2-1.0) mg/dL Ur Leukocyte Esterase (Negative) Thai/uL Urine RBC (Auto) (0-3) /hpf Urine Microscopic WBC (0-5) /hpf Ur Squamous Epith Cells (0-5) /hpf Urine Bacteria (<OCC) Urine Yeast (Budding) (NEGATIVE) /hpf Ur Random Creatinine mg/dL Ur Random Sodium meq/L Ur Random Potassium mmol/L Ur Random Phosphorus mg/dL 04/03/17 04/03/17 04/03/17 Range/Units 05:41 03:43 01:20 WBC (4.8-10.8) K/uL RBC (4.40-5.90) Mil/uL Hgb (12.0-18.0) g/dL Hct (35.0-51.0) % MCV (80.0-94.0) fl MCH (27.0-31.0) pg MCHC (33.0-37.0) g/dL RDW (11.5-14.5) % Plt Count (130-400) K/uL APTT 35.4 H (23.3-32.5) SECONDS pCO2 (35-45) mm/Hg pO2 (80-100) mm/Hg HCO3 (21-28) mmol/L ABG pH (7.35-7.45) ABG Total CO2 (22-28) mmol/L ABG O2 Saturation (95-98) % ABG Base Excess (-2.0-3.0) mmol/L Nahun Test ABG Potassium (3.6-5.2) mmol/L A-a O2 Difference mm/Hg Glucose (75-110) mg/dL Lactate (0.7-2.1) mmol/L Vent Mode Mechanical Rate FiO2 % Tidal Volume PEEP Pressure Support Inspiratory BiPAP Expiratory BiPAP Sodium (132-148) mmol/l Potassium (3.6-5.0) MMOL/L Chloride (98-107) mmol/L Carbon Dioxide (22-30) mmol/L Anion Gap (10-20) BUN (9-20) mg/dl Creatinine (0.8-1.5) mg/dL Est GFR ( Amer) Est GFR (Non-Af Amer) Random Glucose (75-110) mg/dL Calcium (8.4-10.2) mg/dL Iron (49-181) ug/dL Total Bilirubin (0.2-1.3) mg/dl AST (17-59) U/L ALT (21-72) U/L Alkaline Phosphatase (38-126) U/L Troponin I (0.00-0.120) ng/mL Total Protein (6.3-8.2) G/DL Albumin (3.5-5.0) g/dL Globulin (2.2-3.9) gm/dL Albumin/Globulin Ratio (1.0-2.1) Triglycerides (0-149) mg/DL Cholesterol (0-199) mg/dL LDL Cholesterol Direct (0-129) mg/dL HDL Cholesterol (30-70) MG/DL 25-OH Vitamin D Total < 12.8 L (30.0-100.0) NG/ML Procalcitonin (0.19-0.49) NG/ML TSH 3rd Generation (0.46-4.68) mIU/ML Arterial Blood Potassium (3.6-5.2) mmol/L Urine Color (YELLOW) Urine Clarity (Clear) Urine pH (5.0-8.0) Ur Specific [place] (1.003-1.030) Urine Protein (NEGATIVE) mg/dL Urine Glucose (UA) (Normal) mg/dL Urine Ketones (NEGATIVE) mg/dL Urine Blood (NEGATIVE) Urine Nitrate (NEGATIVE) Urine Bilirubin (NEGATIVE) Urine Urobilinogen (0.2-1.0) mg/dL Ur Leukocyte Esterase (Negative) Thai/uL Urine RBC (Auto) (0-3) /hpf Urine Microscopic WBC (0-5) /hpf Ur Squamous Epith Cells (0-5) /hpf Urine Bacteria (<OCC) Urine Yeast (Budding) (NEGATIVE) /hpf Ur Random Creatinine 86.4 mg/dL Ur Random Sodium 40 meq/L Ur Random Potassium 47.0 mmol/L Ur Random Phosphorus 46.2 mg/dL 04/03/17 04/02/17 04/02/17 Range/Units 01:15 23:17 21:00 WBC (4.8-10.8) K/uL RBC (4.40-5.90) Mil/uL Hgb (12.0-18.0) g/dL Hct (35.0-51.0) % MCV (80.0-94.0) fl MCH (27.0-31.0) pg MCHC (33.0-37.0) g/dL RDW (11.5-14.5) % Plt Count (130-400) K/uL APTT (23.3-32.5) SECONDS pCO2 (35-45) mm/Hg pO2 (80-100) mm/Hg HCO3 (21-28) mmol/L ABG pH (7.35-7.45) ABG Total CO2 (22-28) mmol/L ABG O2 Saturation (95-98) % ABG Base Excess (-2.0-3.0) mmol/L Nahun Test ABG Potassium (3.6-5.2) mmol/L A-a O2 Difference mm/Hg Glucose (75-110) mg/dL Lactate (0.7-2.1) mmol/L Vent Mode Mechanical Rate FiO2 % Tidal Volume PEEP Pressure Support Inspiratory BiPAP Expiratory BiPAP Sodium (132-148) mmol/l Potassium (3.6-5.0) MMOL/L Chloride (98-107) mmol/L Carbon Dioxide (22-30) mmol/L Anion Gap (10-20) BUN (9-20) mg/dl Creatinine (0.8-1.5) mg/dL Est GFR ( Amer) Est GFR (Non-Af Amer) Random Glucose (75-110) mg/dL Calcium (8.4-10.2) mg/dL Iron (49-181) ug/dL Total Bilirubin (0.2-1.3) mg/dl AST (17-59) U/L ALT (21-72) U/L Alkaline Phosphatase (38-126) U/L Troponin I 0.5490 H* (0.00-0.120) ng/mL Total Protein (6.3-8.2) G/DL Albumin (3.5-5.0) g/dL Globulin (2.2-3.9) gm/dL Albumin/Globulin Ratio (1.0-2.1) Triglycerides (0-149) mg/DL Cholesterol (0-199) mg/dL LDL Cholesterol Direct (0-129) mg/dL HDL Cholesterol (30-70) MG/DL 25-OH Vitamin D Total (30.0-100.0) NG/ML Procalcitonin 2.07 H (0.19-0.49) NG/ML TSH 3rd Generation (0.46-4.68) mIU/ML Arterial Blood Potassium (3.6-5.2) mmol/L Urine Color Yellow (YELLOW) Urine Clarity Slighty-cloudy (Clear) Urine pH 5.0 (5.0-8.0) Ur Specific [place] 1.013 (1.003-1.030) Urine Protein >=500 (NEGATIVE) mg/dL Urine Glucose (UA) 150 (Normal) mg/dL Urine Ketones Negative (NEGATIVE) mg/dL Urine Blood Large (NEGATIVE) Urine Nitrate Negative (NEGATIVE) Urine Bilirubin Negative (NEGATIVE) Urine Urobilinogen 0.2-1.0 (0.2-1.0) mg/dL Ur Leukocyte Esterase Small (Negative) Thai/uL Urine RBC (Auto) 222 H (0-3) /hpf Urine Microscopic WBC 7 H (0-5) /hpf Ur Squamous Epith Cells < 1 (0-5) /hpf Urine Bacteria Rare (<OCC) Urine Yeast (Budding) Few H (NEGATIVE) /hpf Ur Random Creatinine mg/dL Ur Random Sodium meq/L Ur Random Potassium mmol/L Ur Random Phosphorus mg/dL 04/02/17 Range/Units 21:00 WBC (4.8-10.8) K/uL RBC (4.40-5.90) Mil/uL Hgb (12.0-18.0) g/dL Hct (35.0-51.0) % MCV (80.0-94.0) fl MCH (27.0-31.0) pg MCHC (33.0-37.0) g/dL RDW (11.5-14.5) % Plt Count (130-400) K/uL APTT (23.3-32.5) SECONDS pCO2 (35-45) mm/Hg pO2 (80-100) mm/Hg HCO3 (21-28) mmol/L ABG pH (7.35-7.45) ABG Total CO2 (22-28) mmol/L ABG O2 Saturation (95-98) % ABG Base Excess (-2.0-3.0) mmol/L Nahun Test ABG Potassium (3.6-5.2) mmol/L A-a O2 Difference mm/Hg Glucose (75-110) mg/dL Lactate (0.7-2.1) mmol/L Vent Mode Mechanical Rate FiO2 % Tidal Volume PEEP Pressure Support Inspiratory BiPAP Expiratory BiPAP Sodium (132-148) mmol/l Potassium (3.6-5.0) MMOL/L Chloride (98-107) mmol/L Carbon Dioxide (22-30) mmol/L Anion Gap (10-20) BUN (9-20) mg/dl Creatinine (0.8-1.5) mg/dL Est GFR ( Amer) Est GFR (Non-Af Amer) Random Glucose (75-110) mg/dL Calcium (8.4-10.2) mg/dL Iron (49-181) ug/dL Total Bilirubin (0.2-1.3) mg/dl AST (17-59) U/L ALT (21-72) U/L Alkaline Phosphatase (38-126) U/L Troponin I (0.00-0.120) ng/mL Total Protein (6.3-8.2) G/DL Albumin (3.5-5.0) g/dL Globulin (2.2-3.9) gm/dL Albumin/Globulin Ratio (1.0-2.1) Triglycerides 121 D (0-149) mg/DL Cholesterol 257 H (0-199) mg/dL LDL Cholesterol Direct 148 H (0-129) mg/dL HDL Cholesterol 39 (30-70) MG/DL 25-OH Vitamin D Total (30.0-100.0) NG/ML Procalcitonin (0.19-0.49) NG/ML TSH 3rd Generation 2.14 (0.46-4.68) mIU/ML Arterial Blood Potassium (3.6-5.2) mmol/L Urine Color (YELLOW) Urine Clarity (Clear) Urine pH (5.0-8.0) Ur Specific [place] (1.003-1.030) Urine Protein (NEGATIVE) mg/dL Urine Glucose (UA) (Normal) mg/dL Urine Ketones (NEGATIVE) mg/dL Urine Blood (NEGATIVE) Urine Nitrate (NEGATIVE) Urine Bilirubin (NEGATIVE) Urine Urobilinogen (0.2-1.0) mg/dL Ur Leukocyte Esterase (Negative) Thai/uL Urine RBC (Auto) (0-3) /hpf Urine Microscopic WBC (0-5) /hpf Ur Squamous Epith Cells (0-5) /hpf Urine Bacteria (<OCC) Urine Yeast (Budding) (NEGATIVE) /hpf Ur Random Creatinine mg/dL Ur Random Sodium meq/L Ur Random Potassium mmol/L Ur Random Phosphorus mg/dL Laboratory Results - last 24 hr 04/02/17 04/02/17 04/02/17 21:00 21:00 23:17 WBC RBC Hgb Hct MCV MCH MCHC RDW Plt Count APTT pCO2 pO2 HCO3 ABG pH ABG Total CO2 ABG O2 Saturation ABG Base Excess Nahun Test ABG Potassium A-a O2 Difference Glucose Lactate Vent Mode Mechanical Rate FiO2 Tidal Volume PEEP Pressure Support Inspiratory BiPAP Expiratory BiPAP Sodium Potassium Chloride Carbon Dioxide Anion Gap BUN Creatinine Est GFR ( Amer) Est GFR (Non-Af Amer) Random Glucose Calcium Iron Total Bilirubin AST ALT Alkaline Phosphatase Troponin I 0.5490 H* Total Protein Albumin Globulin Albumin/Globulin Ratio Triglycerides 121 D Cholesterol 257 H LDL Cholesterol Direct 148 H HDL Cholesterol 39 25-OH Vitamin D Total Procalcitonin 2.07 H TSH 3rd Generation 2.14 Arterial Blood Potassium Urine Color Urine Clarity Urine pH Ur Specific [place] Urine Protein Urine Glucose (UA) Urine Ketones Urine Blood Urine Nitrate Urine Bilirubin Urine Urobilinogen Ur Leukocyte Esterase Urine RBC (Auto) Urine Microscopic WBC Ur Squamous Epith Cells Urine Bacteria Urine Yeast (Budding) Ur Random Creatinine Ur Random Sodium Ur Random Potassium Ur Random Phosphorus 04/03/17 04/03/17 04/03/17 01:15 01:20 03:43 WBC RBC Hgb Hct MCV MCH MCHC RDW Plt Count APTT 35.4 H pCO2 pO2 HCO3 ABG pH ABG Total CO2 ABG O2 Saturation ABG Base Excess N[place]un Test ABG Potassium A-a O2 Difference Glucose Lactate Vent Mode Mechanical Rate FiO2 Tidal Volume PEEP Pressure Support Inspiratory BiPAP Expiratory BiPAP Sodium Potassium Chloride Carbon Dioxide Anion Gap BUN Creatinine Est GFR ( Amer) Est GFR (Non-Af Amer) Random Glucose Calcium Iron Total Bilirubin AST ALT Alkaline Phosphatase Troponin I Total Protein Albumin Globulin Albumin/Globulin Ratio Triglycerides Cholesterol LDL Cholesterol Direct HDL Cholesterol 25-OH Vitamin D Total Procalcitonin TSH 3rd Generation Arterial Blood Potassium Urine Color Yellow Urine Clarity Slighty-cloudy Urine pH 5.0 Ur Specific [place] 1.013 Urine Protein >=500 Urine Glucose (UA) 150 Urine Ketones Negative Urine Blood Large Urine Nitrate Negative Urine Bilirubin Negative Urine Urobilinogen 0.2-1.0 Ur Leukocyte Esterase Small Urine RBC (Auto) 222 H Urine Microscopic WBC 7 H Ur Squamous Epith Cells < 1 Urine Bacteria Rare Urine Yeast (Budding) Few H Ur Random Creatinine 86.4 Ur Random Sodium 40 Ur Random Potassium 47.0 Ur Random Phosphorus 46.2 04/03/17 04/03/17 04/03/17 05:41 05:41 05:41 WBC 6.7 RBC 2.88 L Hgb 8.5 L Hct 25.9 L MCV 89.8 MCH 29.3 MCHC 32.7 L RDW 18.7 H Plt Count 178 APTT pCO2 pO2 HCO3 ABG pH ABG Total CO2 ABG O2 Saturation ABG Base Excess Nahun Test ABG Potassium A-a O2 Difference Glucose Lactate Vent Mode Mechanical Rate FiO2 Tidal Volume PEEP Pressure Support Inspiratory BiPAP Expiratory BiPAP Sodium Potassium Chloride Carbon Dioxide Anion Gap BUN Creatinine Est GFR ( Amer) Est GFR (Non-Af Amer) Random Glucose Calcium Iron 40 L Total Bilirubin AST ALT Alkaline Phosphatase Troponin I Total Protein Albumin Globulin Albumin/Globulin Ratio Triglycerides Cholesterol LDL Cholesterol Direct HDL Cholesterol 25-OH Vitamin D Total < 12.8 L Procalcitonin TSH 3rd Generation Arterial Blood Potassium Urine Color Urine Clarity Urine pH Ur Specific [place] Urine Protein Urine Glucose (UA) Urine Ketones Urine Blood Urine Nitrate Urine Bilirubin Urine Urobilinogen Ur Leukocyte Esterase Urine RBC (Auto) Urine Microscopic WBC Ur Squamous Epith Cells Urine Bacteria Urine Yeast (Budding) Ur Random Creatinine Ur Random Sodium Ur Random Potassium Ur Random Phosphorus 04/03/17 04/03/17 04/03/17 05:41 12:56 12:56 WBC RBC Hgb Hct MCV MCH MCHC RDW Plt Count APTT 33.9 H pCO2 pO2 HCO3 ABG pH ABG Total CO2 ABG O2 Saturation ABG Base Excess [place]un Test ABG Potassium A-a O2 Difference Glucose Lactate Vent Mode Mechanical Rate FiO2 Tidal Volume PEEP Pressure Support Inspiratory BiPAP Expiratory BiPAP Sodium 137 Potassium 5.4 H Chloride 107 Carbon Dioxide 16 L Anion Gap 19 BUN 84 H Creatinine 6.4 H Est GFR ( Amer) 11 Est GFR (Non-Af Amer) 9 Random Glucose 172 H Calcium 7.0 L Iron Total Bilirubin 0.3 AST 21 ALT 17 L Alkaline Phosphatase 58 Troponin I 0.3840 H* Total Protein 6.7 Albumin 3.1 L Globulin 3.6 Albumin/Globulin Ratio 0.9 L Triglycerides Cholesterol LDL Cholesterol Direct HDL Cholesterol 25-OH Vitamin D Total Procalcitonin TSH 3rd Generation Arterial Blood Potassium Urine Color Urine Clarity Urine pH Ur Specific [place] Urine Protein Urine Glucose (UA) Urine Ketones Urine Blood Urine Nitrate Urine Bilirubin Urine Urobilinogen Ur Leukocyte Esterase Urine RBC (Auto) Urine Microscopic WBC Ur Squamous Epith Cells Urine Bacteria Urine Yeast (Budding) Ur Random Creatinine Ur Random Sodium Ur Random Potassium Ur Random Phosphorus 04/03/17 13:40 WBC RBC Hgb Hct MCV MCH MCHC RDW Plt Count APTT pCO2 30 L pO2 99 HCO3 20.1 L ABG pH 7.38 ABG Total CO2 18.6 L ABG O2 Saturation 100.6 H ABG Base Excess -6.2 L [place] Test Yes ABG Potassium 5.0 A-a O2 Difference 291.0 Glucose 186 H Lactate 0.7 Vent Mode Bipap Mechanical Rate 12 FiO2 60.0 Tidal Volume 0 PEEP 0 Pressure Support 0 Inspiratory BiPAP 12 Expiratory BiPAP 6 Sodium 135.0 Potassium Chloride 108.0 H Carbon Dioxide Anion Gap BUN Creatinine Est GFR ( Amer) Est GFR (Non-Af Amer) Random Glucose Calcium Iron Total Bilirubin AST ALT Alkaline Phosphatase Troponin I Total Protein Albumin Globulin Albumin/Globulin Ratio Triglycerides Cholesterol LDL Cholesterol Direct HDL Cholesterol 25-OH Vitamin D Total Procalcitonin TSH 3rd Generation Arterial Blood Potassium 5.0 Urine Color Urine Clarity Urine pH Ur Specific [place] Urine Protein Urine Glucose (UA) Urine Ketones Urine Blood Urine Nitrate Urine Bilirubin Urine Urobilinogen Ur Leukocyte Esterase Urine RBC (Auto) Urine Microscopic WBC Ur Squamous Epith Cells Urine Bacteria Urine Yeast (Budding) Ur Random Creatinine Ur Random Sodium Ur Random Potassium Ur Random Phosphorus EKG/Cardiology Studies: Cardiology / EKG Studies 04/02/17 13:35 ELECTROCARDIOGRAM Stat Comment: Mode Of Transportation: Reason For Exam: chest pain Isolation: Contact 04/03/17 EKG [ELECTROCARDIOGRAM] Stat Comment: Mode Of Transportation: PORTABLE Reason For Exam: NSTEMI Isolation: Contact 04/03/17 09:00 ELECTROCARDIOGRAM DAILY Comment: Mode Of Transportation: Reason For Exam: Chest pain Isolation: Contact Review of Systems - Cardiovascular Cardiovascular: Dyspnea, Dyspnea on Exertion, Edema, Irregular Heart Rhythm, Leg Edema. absent: Acrocyanosis, Chest Pain, Chest Pain at Rest, Chest Pain with Activity, Claudication, Diaphoresis - Respiratory Respiratory: Cough, Dyspnea, Dyspnea on Exertion. absent: Hemoptysis, Wheezing , Snoring, Stridor, Pain on Inspiration, Chest Congestion, Excessive Mucous Production, Change in Mucous Color, Pain with Coughing - Gastrointestinal Gastrointestinal: absent: As Per HPI, Abdominal Pain, Belching, Bloating, Change in Bowel Habits, Change in Stool Character, Coffee Ground Emesis, Constipation, Cramping, Diarrhea, Dyspepsia, Dysphagia, Early Satiety, Excessive Flatus, Fecal Incontinence, Heartburn, Hematemesis, Hematochezia, Loose Stools, Melena, Nausea, Odynophagia, Temesmus, Vomiting, Other, UNREMARKABLE Critical Care Progress Note - Extremities/Vascular Does the Patient have a Central Venous Catheter?: No Does the Patient need a Central Venous Catheter?: No Does the Patient have a Wang Catheter?: Yes Does the Patient need a Wang Catheter?: Yes - Nutrition Nutrition: Nutrition Category Date Time Status Renal Diet [DIET] Diets 04/02/17 Dinner Active Assessment/Plan (1) Acute systolic congestive heart failure Current Visit: Yes Status: Acute (2) Acute on chronic renal failure Current Visit: Yes Status: Acute Priority: High (3) NSTEMI (non-ST elevated myocardial infarction) Current Visit: Yes Status: Acute (4) Hyperkalemia Current Visit: No Status: Acute (5) Lower leg edema Current Visit: No Status: Acute Priority: High (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
--- NOTE | 2017-04-03 17:36 | PN ---
DATE: 04/03/2017 SUBJECTIVE: The patient is currently on BiPAP. He denies any chest pain. PHYSICAL EXAMINATION: VITAL SIGNS: Blood pressure 141/89, heart rate 86, temperature 98, respirations 23. HEENT: Pale conjunctivae. CHEST: Bilateral rhonchi. HEART: S1, S2 regular. EXTREMITIES: 2+ pitting edema. LABORATORIES: Hemoglobin and hematocrit 8.5 and 25.9, white count and platelet count are within norm al limits. Today's BUN and creatinine are 84 and 6.4, potassium is 5.4, glucose ____. Troponin is 0 .384. Today's EKG revealed sinus rhythm at a rate of 90. Consider anterolateral ischemia, prolonged QT interval. ASSESSMENT: 1. Status post [id number] myocardial infarction. 2. Worsening renal insufficiency. 3. History of organized Wegerner's glomerulonephritis. 4. Anemia 5. Hyperlipidemia. RECOMMENDATIONS: The case was discussed at length with the medical team including the branch service associate celi alfonso the workforce consultant. The patient will be maintained on aspirin 81 mg once a day, clonidine 0.____ mg twice a day, Coreg 3.125 mg twice a day, Lipitor at 20 mg once a day, Plavix 75 mg once a day, Norvas c 5 mg once a day, heparin can be changed to subcutaneous at 5000 units q. 8 hours. In my opinion, t he patient may benefit from hemodialysis if still indicated at this point. My recollection that his creatinine clearance in December was 11, which is close to the dialysis threshold. The patient is no t a suitable candidate for invasive cardiac workup, at least at this time. Hi Miles MD cc: [id number] TT: 04/03/2017 17:36:24 Confirmation # [id number] Dictation # [id number] nini
[2017-04-03] MEDS ORDERED: Heparin 25,000units in D5W 25,000 UNITS/250 ML BAG IV SCH ×2 (21:40→21:45)
[2017-04-04] MEDS: Nitroglycerin 2% 15 INCH/30 GM TUBE TOP SCH ×4 (01:07→22:03)
[2017-04-04] MEDS: methylPREDNISolone 80 MG in Sodium Chloride 0.9% 50 ML IVPB SCH ×3 (01:08→16:54)
[2017-04-04 05:33] LABS: HEMOGLOBIN 6.8 g/dL (12.0-18.0); MEAN CELL VOLUME 90.9 fl (80.0-94.0); MEAN CORPUSCULAR HEMOGLOBIN 29.6 pg (27.0-31.0); MEAN CORPUSCULAR HGB CONC 32.6 g/dL (33.0-37.0); RBC 2.29 Mil/uL (4.40-5.90); RED CELL DISTRIBUTION WIDTH 19.7 % (11.5-14.5); WHITE BLOOD COUNT 6.6 K/uL (4.8-10.8)
[2017-04-04 05:42] LABS: ALB/GLOB RATIO 0.8 (1.0-2.1); ALBUMIN 2.5 g/dL (3.5-5.0); CALCIUM 6.8 mg/dL (8.4-10.2)
--- NOTE | 2017-04-04 08:08 | CARD ---
APPROVED REPORT EKG Measurement Heart [id number] <Conclusion> Normal sinus rhythm Septal infarct, age undetermined T wave abnormality, consider anterolateral ischemia Prolonged QT Abnormal ECG
[2017-04-04] MEDS: Fluticasone-Salmeterol 500-50mcg Diskus IH SCH ×2 (09:37→21:27)
[2017-04-04] MEDS: Pantoprazole 40 mg EC Tab PO SCH (09:40)
[2017-04-04] MEDS: Sevelamer Carb 0.8 gm/Packet PO SCH ×3 (09:40→16:53)
--- NOTE | 2017-04-04 10:07 | CP.PCM.CON ---
History of Present Illness - History of Present Illness History of Present Illness: This patient home is 67 years old was admitted because of worsening shortness of breath difficulty breathing worsening kidney function. 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 With chronic kidney disease with serum creatinine in the range of 3.5 or so patient has multiple admission and he required to be given Cytoxan dialyze dose was given 02/21 . PMHx of of HTN, CHF, ANCA neg.vasculitis, COPD, anemia, seizer Depression, Deep Vein Thrombosis (RUE), Pneumonia and Chronic Kidney Disease. Patient admitted with severe anemia as well hemoglobin around 6 + With multiple admission in the past because he is noncompliance he does not take any medication when he goes home to the assisted Review of Systems - Review of Systems Systems not reviewed;Unavailable: Respiratory Distress - Constitutional Constitutional: As Per HPI - EENT Eyes: As Per HPI - Cardiovascular Cardiovascular: Chest Pain, Dyspnea, Dyspnea on Exertion, Edema, Orthopnea - Respiratory Respiratory: Dyspnea, Chest Congestion, Excessive Mucous Production - Gastrointestinal Gastrointestinal: Abdominal Pain - Genitourinary Genitourinary: Nocturia - Neurological Neurological: As Per HPI Past Patient History - Infectious Disease Hx of Infectious Diseases: None - Past Medical History & Family History Past Medical History?: Yes - Past Social History Smoking Status: Former Smoker - CARDIAC Hx Cardiac Disorders: Yes Hx Hypertension: Yes - PULMONARY Hx Respiratory Disorders: Yes Hx Chronic Obstructive Pulmonary Disease (COPD): Yes - NEUROLOGICAL Hx Neurological Disorder: Yes - HEENT Hx HEENT Problems: No - RENAL Hx Chronic Kidney Disease: Yes - ENDOCRINE/METABOLIC Hx Endocrine Disorders: No - HEMATOLOGICAL/ONCOLOGICAL Hx Anemia: Yes - INTEGUMENTARY Hx Dermatological Problems: No - MUSCULOSKELETAL/RHEUMATOLOGICAL Hx Musculoskeletal Disorders: Yes - GASTROINTESTINAL Hx Gastrointestinal Disorders: Yes Hx Hemorrhoids: Yes - GENITOURINARY/GYNECOLOGICAL Hx Genitourinary Disorders: No - PSYCHIATRIC Hx Psychophysiologic Disorder: Yes - SURGICAL HISTORY Hx Coronary Stent: No - ANESTHESIA Hx Anesthesia: Yes Hx Anesthesia Reactions: No Meds Allergies/Adverse Reactions: Allergies Allergy/AdvReac Type Severity Reaction Status Date / Time sulfamethoxazole Allergy RASH Verified 03/06/17 17:55 [From ] trimethoprim [From ] Allergy RASH Verified 03/06/17 17:55 - Medications Medications: Current Medications Amlodipine Besylate (Norvasc) 10 mg PO DAILY [facility] Last Admin: 04/04/17 09:39 Dose: 10 mg Aspirin (Aspirin Chewable) 81 mg PO DAILY [facility] Last Admin: 04/04/17 09:38 Dose: 81 mg Atorvastatin Calcium (Lipitor) 20 mg PO HS [facility] Last Admin: 04/03/17 21:01 Dose: 20 mg Carvedilol (Coreg) 3.125 mg PO Q12 [facility] Last Admin: 04/04/17 09:39 Dose: 3.125 mg Clonidine HCl (Catapres) 0.3 mg PO BID [facility] Last Admin: 04/04/17 09:38 Dose: 0.3 mg Clopidogrel Bisulfate (Plavix) 75 mg PO DAILY [facility] Last Admin: 04/04/17 09:39 Dose: 75 mg Ferrous Sulfate (Feosol) 325 mg PO DAILY [facility] Last Admin: 04/04/17 09:39 Dose: 325 mg Piperacillin Sod/Tazobactam (Sod 2.25 gm/ Sodium Chloride) 100 mls @ 100 mls/ hr IVPB Q8 [facility] Last Admin: 04/04/17 09:41 Dose: 100 mls/hr Methylprednisolone 80 mg/ (Sodium Chloride) 50 mls @ 100 mls/hr IVPB Q8 [facility] Last Admin: 04/04/17 09:40 Dose: 100 mls/hr Nitroglycerin (Nitro-Bid 2% Oint) 1 inch TOP Q6H [facility] Last Admin: 04/04/17 06:36 Dose: 1 inch Pantoprazole Sodium (Protonix Ec Tab) 40 mg PO DAILY [facility] Last Admin: 04/04/17 09:40 Dose: 40 mg Fluticasone/Salmeterol (Advair Diskus 500/50) 1 puff IH Q12 [facility] Last Admin: 04/04/17 09:37 Dose: 1 puff Sevelamer Carbonate (Renvela) 0.8 gm PO TIDWM [facility] Last Admin: 04/04/17 09:40 Dose: 0.8 gm Sodium Bicarbonate (Sodium Bicarbonate Tab) 650 mg PO BID [facility] Last Admin: 04/04/17 09:40 Dose: 650 mg Physical Exam - Constitutional Appears: In Acute Distress - ENT Exam ENT Exam: Mucous Membranes Moist - Respiratory Exam Respiratory Exam: Decreased Breath Sounds, Rales, Rhonchi. absent: Chest Wall Tenderness - Cardiovascular Exam Cardiovascular Exam: REGULAR RHYTHM. absent: Rubs - GI/Abdominal Exam GI & Abdominal Exam: Normal Bowel Sounds - Extremities Exam Extremities exam: Negative for: calf tenderness - Back Exam Back exam: absent: CVA tenderness (L), CVA tenderness (R) - Neurological Exam Neurological exam: Alert Results - Vital Signs Recent Vital Signs: Last Vital Signs Temp 97.5 F L 04/04/17 07:39 Pulse 103 H 04/04/17 09:39 Resp 19 04/04/17 07:39 BP 136/60 04/04/17 09:39 Pulse Ox 100 04/04/17 07:39 - Labs Result Diagrams: 04/04/17 04:35 04/04/17 04:35 Labs: Laboratory Results - last 24 hr 04/02/17 04/03/17 04/03/17 21:00 05:41 12:56 WBC RBC Hgb Hct MCV MCH MCHC RDW Plt Count APTT 33.9 H pCO2 pO2 HCO3 ABG pH ABG Total CO2 ABG O2 Saturation ABG Base Excess N[place]un Test ABG Potassium A-a O2 Difference Sodium Chloride Glucose Lactate Vent Mode Mechanical Rate FiO2 Tidal Volume PEEP Pressure Support Inspiratory BiPAP Expiratory BiPAP Potassium Carbon Dioxide Anion Gap BUN Creatinine Est GFR ( Amer) Est GFR (Non-Af Amer) Random Glucose Calcium Total Bilirubin AST ALT Alkaline Phosphatase Troponin I Total Protein Albumin Globulin Albumin/Globulin Ratio 25-OH Vitamin D Total < 12.8 L Procalcitonin 2.07 H Arterial Blood Potassium 04/03/17 04/03/17 04/03/17 12:56 13:40 20:00 WBC RBC Hgb Hct MCV MCH MCHC RDW Plt Count APTT pCO2 30 L pO2 99 HCO3 20.1 L ABG pH 7.38 ABG Total CO2 18.6 L ABG O2 Saturation 100.6 H ABG Base Excess -6.2 L [place]un Test Yes ABG Potassium 5.0 A-a O2 Difference 291.0 Sodium 135.0 Chloride 108.0 H Glucose 186 H Lactate 0.7 Vent Mode Bipap Mechanical Rate 12 FiO2 60.0 Tidal Volume 0 PEEP 0 Pressure Support 0 Inspiratory BiPAP 12 Expiratory BiPAP 6 Potassium Carbon Dioxide Anion Gap BUN Creatinine Est GFR ( Amer) Est GFR (Non-Af Amer) Random Glucose Calcium Total Bilirubin AST ALT Alkaline Phosphatase Troponin I 0.3840 H* 0.3260 H* Total Protein Albumin Globulin Albumin/Globulin Ratio 25-OH Vitamin D Total Procalcitonin Arterial Blood Potassium 5.0 04/03/17 04/04/17 04/04/17 20:00 04:35 04:35 WBC 6.6 RBC 2.29 L Hgb 6.8 L Hct 20.8 L MCV 90.9 MCH 29.6 MCHC 32.6 L RDW 19.7 H Plt Count 166 APTT 36.0 H pCO2 pO2 HCO3 ABG pH ABG Total CO2 ABG O2 Saturation ABG Base Excess N[place]un Test ABG Potassium A-a O2 Difference Sodium 136 Chloride 107 Glucose Lactate Vent Mode Mechanical Rate FiO2 Tidal Volume PEEP Pressure Support Inspiratory BiPAP Expiratory BiPAP Potassium 5.3 H Carbon Dioxide 16 L Anion Gap 18 BUN 93 H Creatinine 6.5 H Est GFR ( Amer) 10 Est GFR (Non-Af Amer) 9 Random Glucose 146 H Calcium 6.8 L Total Bilirubin 0.1 L AST 15 L D ALT 23 Alkaline Phosphatase 42 Troponin I Total Protein 5.6 L Albumin 2.5 L Globulin 3.1 Albumin/Globulin Ratio 0.8 L 25-OH Vitamin D Total Procalcitonin Arterial Blood Potassium 04/04/17 04:35 WBC RBC Hgb Hct MCV MCH MCHC RDW Plt Count APTT 55.3 H pCO2 pO2 HCO3 ABG pH ABG Total CO2 ABG O2 Saturation ABG Base Excess Anhun Test ABG Potassium A-a O2 Difference Sodium Chloride Glucose Lactate Vent Mode Mechanical Rate FiO2 Tidal Volume PEEP Pressure Support Inspiratory BiPAP Expiratory BiPAP Potassium Carbon Dioxide Anion Gap BUN Creatinine Est GFR ( Amer) Est GFR (Non-Af Amer) Random Glucose Calcium Total Bilirubin AST ALT Alkaline Phosphatase Troponin I Total Protein Albumin Globulin Albumin/Globulin Ratio 25-OH Vitamin D Total Procalcitonin Arterial Blood Potassium Assessment & Plan (1) Acute on chronic renal failure Assessment and Plan: Acute on chronic kidney disease with worsening kidney function accompany with congestive heart failure and volume overloaded and massive leg edema. And severe anemia hemoglobin around 6 ANCA negative vasculitis proven by kidney biopsy previously with status post Cytoxan treatment I believe twice last dose 02/21/2017. Because of the worsening kidney function rising BUN/creatinine and the congestive heart failure syndrome patient will need dialysis as discuss with the primary care physician Dr. Weaver. We will proceed to prep temporary dialysis catheter and go ahead with the dialysis and blood transfusion. Also patient will need Cytoxan treatment as soon as his condition improving and able to take the Cytoxan. Status: Acute Priority: High (2) Acute systolic congestive heart failure Status: Acute
--- NOTE | 2017-04-04 10:16 | CP.PCM.PN ---
Subjective - Date & Time of Evaluation Date of Evaluation: 04/04/17 Time of Evaluation: 07:50 - Subjective Subjective: 67 y/o admitted with possible NSTEMI and respiratory distress being f/u for respiratory status, worsening renal function and possible NSTEMI. Patient was seen and examined in ICU unit. Patient with less respiratory distress this morning, still in BiPAP machine set at 60 %, O2sat 100 %. Patient had an uneventful night, and has been afebrile since admission. Objective - Vital Signs/Intake and Output Vital Signs (last 24 hours): Temp Pulse Resp BP Pulse Ox 97.5 F L 103 H 19 136/60 100 04/04/17 07:39 04/04/17 09:39 04/04/17 07:39 04/04/17 09:39 04/04/17 07:39 Intake and Output: 04/04/17 04/04/17 06:59 18:59 Intake Total 804 650 Output Total 125 Balance 679 650 - Medications Medications: Current Medications Amlodipine Besylate (Norvasc) 10 mg PO DAILY [facility] Last Admin: 04/04/17 09:39 Dose: 10 mg Aspirin (Aspirin Chewable) 81 mg PO DAILY [facility] Last Admin: 04/04/17 09:38 Dose: 81 mg Atorvastatin Calcium (Lipitor) 20 mg PO HS [facility] Last Admin: 04/03/17 21:01 Dose: 20 mg Carvedilol (Coreg) 3.125 mg PO Q12 [facility] Last Admin: 04/04/17 09:39 Dose: 3.125 mg Clonidine HCl (Catapres) 0.3 mg PO BID [facility] Last Admin: 04/04/17 09:38 Dose: 0.3 mg Clopidogrel Bisulfate (Plavix) 75 mg PO DAILY [facility] Last Admin: 04/04/17 09:39 Dose: 75 mg Ferrous Sulfate (Feosol) 325 mg PO DAILY [facility] Last Admin: 04/04/17 09:39 Dose: 325 mg Piperacillin Sod/Tazobactam (Sod 2.25 gm/ Sodium Chloride) 100 mls @ 100 mls/ hr IVPB Q8 [facility] Last Admin: 04/04/17 09:41 Dose: 100 mls/hr Methylprednisolone 80 mg/ (Sodium Chloride) 50 mls @ 100 mls/hr IVPB Q8 [facility] Last Admin: 04/04/17 09:40 Dose: 100 mls/hr Nitroglycerin (Nitro-Bid 2% Oint) 1 inch TOP Q6H [facility] Last Admin: 04/04/17 06:36 Dose: 1 inch Pantoprazole Sodium (Protonix Ec Tab) 40 mg PO DAILY [facility] Last Admin: 04/04/17 09:40 Dose: 40 mg Fluticasone/Salmeterol (Advair Diskus 500/50) 1 puff IH Q12 [facility] Last Admin: 04/04/17 09:37 Dose: 1 puff Sevelamer Carbonate (Renvela) 0.8 gm PO TIDWM [facility] Last Admin: 04/04/17 09:40 Dose: 0.8 gm Sodium Bicarbonate (Sodium Bicarbonate Tab) 650 mg PO BID [facility] Last Admin: 04/04/17 09:40 Dose: 650 mg - Labs Labs: 04/04/17 04:35 04/04/17 04:35 APTT 55.3 SECONDS (23.3-32.5) H 04/04/17 04:35 - Constitutional Appears: Non-toxic, No Acute Distress - Eye Exam Additional comments: right subconjunctival hemorrhage, stable compared with yesterday. - Additional Findings Additional findings: ENT Exam ENT Exam: Mucous Membranes Moist - Respiratory Exam Additional comments: moderate increased respiratory rate. Mild decreased breath sounds, fine crackles in right lower lobe. No rhonchi or wheezing. - Cardiovascular Exam Cardiovascular Exam: REGULAR RHYTHM, +S1, +S2 - GI/Abdominal Exam GI & Abdominal Exam: Distended, Soft, Normal Bowel Sounds. absent: Guarding, Rigid, Tenderness - Extremities Exam Additional comments: Lower extremities bilateral edema below knees pitting 3+ - Neurological Exam Neurological Exam: Alert, Awake, Oriented x3 - Skin Skin Exam: Dry, Intact, Pallor Assessment and Plan - Assessment and Plan (Free Text) Assessment: 67 y/o homeless male with PMH including HTN, CHF, CKD, ANCA vasculitis and DVT of RUE (detected on 02/04/17) admitted for management of NSTEMI, respiratory distress, and worsening renal function. Plan: Respiratory Distress -Etiology likely secondary to NSTEMI vs acute CHF exacerbation vs worsening of ANCA vasculitis vs Multifocal pneumonia( likely HCAP due to recent hospitalization) CXR showed : possible evidence of multifocal pneumonia , left sided pleural effusion -c/w BIPAP , O2 Sat at 100%, and consider weaning as tolerated - ABG: normal anion gap compensated metabolic acidosis (9.7) -Vancomycin 1 gm IV day #2 -Zosyn 2.25 Q 8 hrs day #2 -S/P Solu-medrol 125 mg IV once on 04/03/17 -c/w Solu-medrol 80 mg Q 8 IV day #1 -Consider c/w Furosemide. D/W Insights Strategist -Repeat ABG on 04/03/17 showed no significant changes from previous one. Anemia Likely secondary to ANCA vasculitis associated with CKD, but also patient is in heparin drip for ACS -Held Heparin drip -Dropped of H/H today from 8.5/25.9 to 6.8/20.8 -Consider blood transfusion NSTEMI -ICU monitoring -Held Heparin drip due to dropped in H/H -C/w aspirin 81 mg daily -C/w plavix 75 mg daily -Coreg 3.125mg PO Q12 - PTT today was 55.3 -Not a good candidate for MAN-i due to impaired renal function -Troponin I X 2 trending up 0.2850, 0.5490 -Cardiology on board, f/u recommendations Systolic CHF with acute exacerbation -Last echo performed 12/08/16 revealing mild LVH and a mildly impaired EF of 45-50 %. Inferolateral hypokinesis was also detected. -ProBNP: 167,000 -IV Lasix 60mg given once today -Carvedilol 3.125mg PO Q12h -Not a good candidate for MAN-i or Aldactone due to impaired renal function -Strict I/Os. Daily weights. -Bedside echo pending report Acute on Chronic Kidney disease CKD most likely secondary to ANCA vasculitis -Patient is no complaint with medications -BUN/Cr: worsening 93/6.5 -Nephrology consulted, on board - Permanent Cath for Dialysis as per Nephro rec -Consider Cytoxin History of DVT in RUE -RUE DVT detected on 02/04/17 however patient was not a good candidate for chcf anticoagulation -D-dimer also elevated at admission but of undetermined significance -B/L upper extremities US showed partial compression of the right basilic vein, possible due to a chronic thrombus -B/L lower extremities US showed no evidence of DVT -Will consider V/Q scan -Held Heparin drip due to dropped in H/H HTN -Most likely secondary to medication non-adherence and worsening renal function -Amlodipine 10mg PO daily -Clonidine 0.3mg PO bid -Carvedilol was started by cardio at admission -Home Labetalol 400mg Q12h - Hydralazine 20mg Q8H held DVT Prophylaxis -Held Heparin drip due to dropped in H/H -SCDs
--- NOTE | 2017-04-04 12:27 | CP.CCUPN ---
<Jaycob Del Riosteffany - Last Filed: 04/04/17 15:42> CCU Subjective - Physician Review Subjective (Free Text): 04/04/17 12:23 Patient seen and examined at bedside and discussed with ICU attending during rounds. Patient is sitting with head of bed elevated and appears comfortable. His respiratory distress appears to be improving as patient has tolerated trial of nasal canula @7L from BIPAP, currently satting at 96%. Patient reports improvement in his SOB and denies chest pain, abdominal pain, nausea or vomiting. He continues to experience cough productive of nonbloody sputum. He produced approximately 325ml of chandana urine over the last 24 hrs. Hemoglobin dropped today from 8.5 to 6.8 however no clear source of bleeding identified. CCU Objective - Vital Signs / Intake & Output Vital Signs (Last 4 hours): Vital Signs Pulse Resp BP Pulse Ox 04/04/17 10:00 74 22 131/78 98 04/04/17 09:39 103 H 136/60 04/04/17 09:38 103 H 136/60 04/04/17 08:25 71 Intake and Output (Last 8hrs): Intake & Output 04/03/17 04/04/17 04/04/17 22:59 06:59 14:59 Intake Total 900 398 650 Output Total 250 75 Balance 650 323 650 Intake: IV 430 128 150 Intake, Piggyback 350 150 Oral 120 120 500 Output: Urine 250 75 Urethral (Wang) 250 75 - Physical Exam Head: Positive for: Atraumatic, Normocephalic Pupils: Positive for: PERRL Extroacular Muscles: Positive for: EOMI Mouth: Positive for: Dry Neck: Positive for: Normal Range of Motion Respiratory/Chest: Positive for: Tachypneic, Other (B/L air entry present but slightly decreased in left lung magaña compared to right. No rhonchii are audible today which is an improvement from prior assessments. ). Negative for: Wheezes Cardiovascular: Positive for: Regular Rate and Rhythm, Peripheal Pulses Present , Tachycardic Abdomen: Positive for: Normal Bowel Sounds. Negative for: Tenderness, Distention, Rebound Upper Extremity: Positive for: Normal Inspection, Capillary Refill < 2s Lower Extremity: Positive for: Edema (Pitting edema present up to knees b/l (3+) ) Neurological: Positive for: GCS=15, CN II-XII Intact, Speech Normal Skin: Positive for: Erythematous (chronic lower extremity erythema b/l) Psychiatric: Positive for: Alert, Oriented x 3, Normal Insight - Medications Active Medications: Active Medications Generic Name Dose Route Start Last Admin Trade Name Freq PRN Reason Stop Dose Admin Amlodipine Besylate 10 mg 04/03/17 09:00 04/04/17 09:39 Norvasc PO 10 mg DAILY ZORAIDA Administration Aspirin 81 mg 04/03/17 09:00 04/04/17 09:38 Aspirin Chewable PO 81 mg DAILY ZORAIDA Administration Atorvastatin Calcium 20 mg 04/03/17 22:00 04/03/17 21:01 Lipitor PO 20 mg HS ZORAIDA Administration Carvedilol 3.125 mg 04/02/17 21:00 04/04/17 09:39 Coreg PO 3.125 mg Q12 ZORAIDA Administration Clonidine HCl 0.3 mg 04/03/17 09:00 04/04/17 09:38 Catapres PO 0.3 mg BID ZORAIDA Administration Clopidogrel Bisulfate 75 mg 04/03/17 09:00 04/04/17 09:39 Plavix PO 75 mg DAILY ZORAIDA Administration Ferrous Sulfate 325 mg 04/03/17 09:00 04/04/17 09:39 Feosol PO 325 mg DAILY ZORAIDA Administration Piperacillin Sod/Tazobactam 100 mls @ 100 mls/hr 04/03/17 18:30 04/04/17 09: 41 Sod 2.25 gm/ Sodium Chloride IVPB 100 mls/hr Q8 ZORAIDA Administration Methylprednisolone 80 mg/ 50 mls @ 100 mls/hr 04/04/17 01:00 04/04/17 09:40 Sodium Chloride IVPB 100 mls/hr Q8 ZORAIDA Administration Nitroglycerin 1 inch 04/02/17 19:00 04/04/17 06:36 Nitro-Bid 2% Oint TOP 1 inch Q6H ZORAIDA Administration Pantoprazole Sodium 40 mg 04/03/17 09:00 04/04/17 09:40 Protonix Ec Tab PO 40 mg DAILY ZORAIDA Administration Fluticasone/Salmeterol 1 puff 04/02/17 21:00 04/04/17 09:37 Advair Diskus 500/50 IH 1 puff Q12 ZORAIDA Administration Sevelamer Carbonate 0.8 gm 04/03/17 08:00 04/04/17 09:40 Renvela PO 0.8 gm TIDWM ZORAIDA Administration Sodium Bicarbonate 650 mg 04/03/17 09:00 04/04/17 09:40 Sodium Bicarbonate Tab PO 650 mg BID ZORAIDA Administration - Patient Studies Lab Studies: Microbiology Studies 04/02/17 14:00 Urine Culture - Final Urine,Wang No Growth (<1,000 CFU/ML) 04/02/17 15:00 Blood Culture - Preliminary Blood-Venous NO GROWTH AFTER 24 HOURS 04/02/17 13:40 Blood Culture - Preliminary Blood-Venous NO GROWTH AFTER 24 HOURS 04/02/17 17:49 MRSA Culture (Admit) - Final Naris MRSA NOT DETECTED Lab Studies 04/04/17 04/04/17 04/04/17 Range/Units 04:35 04:35 04:35 WBC 6.6 (4.8-10.8) K/uL RBC 2.29 L (4.40-5.90) Mil/uL Hgb 6.8 L (12.0-18.0) g/dL Hct 20.8 L (35.0-51.0) % MCV 90.9 (80.0-94.0) fl MCH 29.6 (27.0-31.0) pg MCHC 32.6 L (33.0-37.0) g/dL RDW 19.7 H (11.5-14.5) % Plt Count 166 (130-400) K/uL APTT 55.3 H (23.3-32.5) SECONDS pCO2 (35-45) mm/Hg pO2 (80-100) mm/Hg HCO3 (21-28) mmol/L ABG pH (7.35-7.45) ABG Total CO2 (22-28) mmol/L ABG O2 Saturation (95-98) % ABG Base Excess (-2.0-3.0) mmol/L Nahun Test ABG Potassium (3.6-5.2) mmol/L A-a O2 Difference mm/Hg Sodium 136 (132-148) mmol/L Chloride 107 (98-107) mmol/L Glucose (75-110) mg/dL Lactate (0.7-2.1) mmol/L Vent Mode Mechanical Rate FiO2 % Tidal Volume PEEP Pressure Support Inspiratory BiPAP Expiratory BiPAP Potassium 5.3 H (3.6-5.0) MMOL/L Carbon Dioxide 16 L (22-30) mmol/L Anion Gap 18 (10-20) BUN 93 H (9-20) mg/dl Creatinine 6.5 H (0.8-1.5) mg/dL Est GFR ( Amer) 10 Est GFR (Non-Af Amer) 9 Random Glucose 146 H (75-110) mg/dL Calcium 6.8 L (8.4-10.2) mg/dL Total Bilirubin 0.1 L (0.2-1.3) mg/dl AST 15 L D (17-59) U/L ALT 23 (21-72) U/L Alkaline Phosphatase 42 (38-126) U/L Troponin I (0.00-0.120) ng/mL Total Protein 5.6 L (6.3-8.2) G/DL Albumin 2.5 L (3.5-5.0) g/dL Globulin 3.1 (2.2-3.9) gm/dL Albumin/Globulin Ratio 0.8 L (1.0-2.1) Arterial Blood Potassium (3.6-5.2) mmol/L 04/03/17 04/03/17 04/03/17 Range/Units 20:00 20:00 13:40 WBC (4.8-10.8) K/uL RBC (4.40-5.90) Mil/uL Hgb (12.0-18.0) g/dL Hct (35.0-51.0) % MCV (80.0-94.0) fl MCH (27.0-31.0) pg MCHC (33.0-37.0) g/dL RDW (11.5-14.5) % Plt Count (130-400) K/uL APTT 36.0 H (23.3-32.5) SECONDS pCO2 30 L (35-45) mm/Hg pO2 99 (80-100) mm/Hg HCO3 20.1 L (21-28) mmol/L ABG pH 7.38 (7.35-7.45) ABG Total CO2 18.6 L (22-28) mmol/L ABG O2 Saturation 100.6 H (95-98) % ABG Base Excess -6.2 L (-2.0-3.0) mmol/L Nahun Test Yes ABG Potassium 5.0 (3.6-5.2) mmol/L A-a O2 Difference 291.0 mm/Hg Sodium 135.0 (132-148) mmol/L Chloride 108.0 H (98-107) mmol/L Glucose 186 H (75-110) mg/dL Lactate 0.7 (0.7-2.1) mmol/L Vent Mode Bipap Mechanical Rate 12 FiO2 60.0 % Tidal Volume 0 PEEP 0 Pressure Support 0 Inspiratory BiPAP 12 Expiratory BiPAP 6 Potassium (3.6-5.0) MMOL/L Carbon Dioxide (22-30) mmol/L Anion Gap (10-20) BUN (9-20) mg/dl Creatinine (0.8-1.5) mg/dL Est GFR ( Amer) Est GFR (Non-Af Amer) Random Glucose (75-110) mg/dL Calcium (8.4-10.2) mg/dL Total Bilirubin (0.2-1.3) mg/dl AST (17-59) U/L ALT (21-72) U/L Alkaline Phosphatase (38-126) U/L Troponin I 0.3260 H* (0.00-0.120) ng/mL Total Protein (6.3-8.2) G/DL Albumin (3.5-5.0) g/dL Globulin (2.2-3.9) gm/dL Albumin/Globulin Ratio (1.0-2.1) Arterial Blood Potassium 5.0 (3.6-5.2) mmol/L 04/03/17 04/03/17 Range/Units 12:56 12:56 WBC (4.8-10.8) K/uL RBC (4.40-5.90) Mil/uL Hgb (12.0-18.0) g/dL Hct (35.0-51.0) % MCV (80.0-94.0) fl MCH (27.0-31.0) pg MCHC (33.0-37.0) g/dL RDW (11.5-14.5) % Plt Count (130-400) K/uL APTT 33.9 H (23.3-32.5) SECONDS pCO2 (35-45) mm/Hg pO2 (80-100) mm/Hg HCO3 (21-28) mmol/L ABG pH (7.35-7.45) ABG Total CO2 (22-28) mmol/L ABG O2 Saturation (95-98) % ABG Base Excess (-2.0-3.0) mmol/L Nahun Test ABG Potassium (3.6-5.2) mmol/L A-a O2 Difference mm/Hg Sodium (132-148) mmol/L Chloride (98-107) mmol/L Glucose (75-110) mg/dL Lactate (0.7-2.1) mmol/L Vent Mode Mechanical Rate FiO2 % Tidal Volume PEEP Pressure Support Inspiratory BiPAP Expiratory BiPAP Potassium (3.6-5.0) MMOL/L Carbon Dioxide (22-30) mmol/L Anion Gap (10-20) BUN (9-20) mg/dl Creatinine (0.8-1.5) mg/dL Est GFR ( Amer) Est GFR (Non-Af Amer) Random Glucose (75-110) mg/dL Calcium (8.4-10.2) mg/dL Total Bilirubin (0.2-1.3) mg/dl AST (17-59) U/L ALT (21-72) U/L Alkaline Phosphatase (38-126) U/L Troponin I 0.3840 H* (0.00-0.120) ng/mL Total Protein (6.3-8.2) G/DL Albumin (3.5-5.0) g/dL Globulin (2.2-3.9) gm/dL Albumin/Globulin Ratio (1.0-2.1) Arterial Blood Potassium (3.6-5.2) mmol/L Laboratory Results - last 24 hr 04/03/17 04/03/17 04/03/17 12:56 12:56 13:40 WBC RBC Hgb Hct MCV MCH MCHC RDW Plt Count APTT 33.9 H pCO2 30 L pO2 99 HCO3 20.1 L ABG pH 7.38 ABG Total CO2 18.6 L ABG O2 Saturation 100.6 H ABG Base Excess -6.2 L Nahun Test Yes ABG Potassium 5.0 A-a O2 Difference 291.0 Sodium 135.0 Chloride 108.0 H Glucose 186 H Lactate 0.7 Vent Mode Bipap Mechanical Rate 12 FiO2 60.0 Tidal Volume 0 PEEP 0 Pressure Support 0 Inspiratory BiPAP 12 Expiratory BiPAP 6 Potassium Carbon Dioxide Anion Gap BUN Creatinine Est GFR ( Amer) Est GFR (Non-Af Amer) Random Glucose Calcium Total Bilirubin AST ALT Alkaline Phosphatase Troponin I 0.3840 H* Total Protein Albumin Globulin Albumin/Globulin Ratio Arterial Blood Potassium 5.0 04/03/17 04/03/17 04/04/17 20:00 20:00 04:35 WBC 6.6 RBC 2.29 L Hgb 6.8 L Hct 20.8 L MCV 90.9 MCH 29.6 MCHC 32.6 L RDW 19.7 H Plt Count 166 APTT 36.0 H pCO2 pO2 HCO3 ABG pH ABG Total CO2 ABG O2 Saturation ABG Base Excess Nahun Test ABG Potassium A-a O2 Difference Sodium Chloride Glucose Lactate Vent Mode Mechanical Rate FiO2 Tidal Volume PEEP Pressure Support Inspiratory BiPAP Expiratory BiPAP Potassium Carbon Dioxide Anion Gap BUN Creatinine Est GFR ( Amer) Est GFR (Non-Af Amer) Random Glucose Calcium Total Bilirubin AST ALT Alkaline Phosphatase Troponin I 0.3260 H* Total Protein Albumin Globulin Albumin/Globulin Ratio Arterial Blood Potassium 04/04/17 04/04/17 04:35 04:35 WBC RBC Hgb Hct MCV MCH MCHC RDW Plt Count APTT 55.3 H pCO2 pO2 HCO3 ABG pH ABG Total CO2 ABG O2 Saturation ABG Base Excess Nahun Test ABG Potassium A-a O2 Difference Sodium 136 Chloride 107 Glucose Lactate Vent Mode Mechanical Rate FiO2 Tidal Volume PEEP Pressure Support Inspiratory BiPAP Expiratory BiPAP Potassium 5.3 H Carbon Dioxide 16 L Anion Gap 18 BUN 93 H Creatinine 6.5 H Est GFR ( Amer) 10 Est GFR (Non-Af Amer) 9 Random Glucose 146 H Calcium 6.8 L Total Bilirubin 0.1 L AST 15 L D ALT 23 Alkaline Phosphatase 42 Troponin I Total Protein 5.6 L Albumin 2.5 L Globulin 3.1 Albumin/Globulin Ratio 0.8 L Arterial Blood Potassium Review of Systems - Constitutional Constitutional: absent: Fever, Chills - Cardiovascular Cardiovascular: Leg Edema. absent: Chest Pain, Diaphoresis, Palpitations - Respiratory Respiratory: Cough, Dyspnea, Chest Congestion. absent: Wheezing - Gastrointestinal Gastrointestinal: absent: Abdominal Pain, Diarrhea, Hematemesis, Hematochezia, Nausea, Vomiting - Genitourinary Genitourinary: absent: Hematuria Critical Care Progress Note - Nutrition Nutrition: Nutrition Category Date Time Status Renal Diet [DIET] Diets 04/02/17 Dinner Active Assessment/Plan - Assessment and Plan (Free Text) Assessment: 67 y/o homeless male with PMH including HTN, CHF, CKD, ANCA vasculitis and DVT of RUE (detected on 02/04/17) presented to ED with roughly 4 day history of progressive SOB, lower extremity edema, exercise intolerance and retrosternal chest pain. Patient was admitted to ICU on 04/02/17 for respiratory insufficiency likely secondary to acute exacerbation of systolic CHF and possible NSTEMI. Plan: Respiratory insufficiency -Etiology likely secondary to NSTEMI vs acute CHF exacerbation -Patient intially placed on BIPAP -Has tolerated trial of O2 via NC @7L, currently satting at 96% -Will continue to wean as tolerated -Follow ABG Systolic CHF with acute exacerbation -Last echo performed 12/08/16 revealing mild LVH and a mildly impaired EF of 45-50 %. Inferolateral hypokinesis was also detected. -Bedside echo performed today, pending final read -ProBNP: 167,000 on admission -Has been receiving IV Lasix bid (between 60-80mg) with only 325cc urine output over the last 24 hrs -Carvedilol 3.125mg PO Q12h -Not a good candidate for MAN-i due to SHERRY at this time -Continue strict I/Os. Daily weights. S/P NSTEMI -S/P likely NSTEMI on 04/02/17 based on serial troponins peaking at 0.5490 -Initial EKG in ER detected tachycardia with signs of MAT and possible lateral ischemia -Subsequent EKG revealed sinus tachycardia -Had improvement with Cardizem drip and heparin drip, which have been discontinued -Cardiology consultation appreciated -Patient was not a good candidate for invasive cardiac workup due to co- existing acute renal failure -Will continue with Coreg 3.125mg PO Q12, ASA 81mg PO daily, Plavix 75mg PO daily Acute Renal Failure on Chronic CKD -BUN/Cr worsening (from 77/6.0 > 93/6.5) compared to 52/3.2 on previous admission from 2 weeks ago -Etiology possibly related to CHF exacerbation versus related to history of ANCA negative vasculitis -Nephrology consulted -Patient will require placement of temporary dialysis catheter and receive dialysis today -Cytoxan treatment to be restarted after patient becomes more stable Shortess of Breath with History of DVT -RUE DVT detected on 02/04/17 however patient was not a good candidate for nursing home anticoagulation -D-dimer also elevated at admission but of undetermined significance -B/L upper and lower extremity U/S ordered which revealed no acute thrombus formations -Will consider V/Q scan HTN -Uncontrolled secondary to medication non-adherence -Amlodipine 10mg PO daily -Clonidine 0.3mg PO bid -Carvedilol was started by cardio at admission -Home Labetalol 400mg Q12h and Hydralazine 20mg Q8H held DVT Prophylaxis -On Heparin SC -SCDs <Latef,Robby M - Last Filed: 04/04/17 15:53> CCU Objective - Vital Signs / Intake & Output Vital Signs (Last 4 hours): Vital Signs Temp Pulse Resp BP Pulse Ox 04/04/17 14:55 97.9 F 88 22 143/85 95 04/04/17 12:00 97.6 F 90 23 140/83 96 Intake and Output (Last 8hrs): Intake & Output 04/04/17 04/04/17 04/04/17 06:59 14:59 22:59 Intake Total 398 890 Output Total 75 Balance 323 890 Intake: IV 128 150 Intake, Piggyback 150 Oral 120 740 Output: Urine 75 Urethral (Wang) 75 - Medications Active Medications: Active Medications Generic Name Dose Route Start Last Admin Trade Name Freq PRN Reason Stop Dose Admin Amlodipine Besylate 10 mg 04/03/17 09:00 04/04/17 09:39 Norvasc PO 10 mg DAILY ZORAIDA Administration Aspirin 81 mg 04/03/17 09:00 04/04/17 09:38 Aspirin Chewable PO 81 mg DAILY ZORAIDA Administration Atorvastatin Calcium 20 mg 04/03/17 22:00 04/03/17 21:01 Lipitor PO 20 mg HS ZORAIDA Administration Carvedilol 3.125 mg 04/02/17 21:00 04/04/17 09:39 Coreg PO 3.125 mg Q12 ZORAIDA Administration Clonidine HCl 0.3 mg 04/03/17 09:00 04/04/17 09:38 Catapres PO 0.3 mg BID ZORAIDA Administration Clopidogrel Bisulfate 75 mg 04/03/17 09:00 04/04/17 09:39 Plavix PO 75 mg DAILY ZORAIDA Administration Ferrous Sulfate 325 mg 04/03/17 09:00 04/04/17 09:39 Feosol PO 325 mg DAILY ZORAIDA Administration Piperacillin Sod/Tazobactam 100 mls @ 100 mls/hr 04/03/17 18:30 04/04/17 09: 41 Sod 2.25 gm/ Sodium Chloride IVPB 100 mls/hr Q8 ZORAIDA Administration Methylprednisolone 80 mg/ 50 mls @ 100 mls/hr 04/04/17 01:00 04/04/17 09:40 Sodium Chloride IVPB 100 mls/hr Q8 ZORAIDA Administration Nitroglycerin 1 inch 04/02/17 19:00 04/04/17 13:09 Nitro-Bid 2% Oint TOP 1 inch Q6H ZORAIDA Administration Pantoprazole Sodium 40 mg 04/03/17 09:00 04/04/17 09:40 Protonix Ec Tab PO 40 mg DAILY ZORAIDA Administration Fluticasone/Salmeterol 1 puff 04/02/17 21:00 04/04/17 09:37 Advair Diskus 500/50 IH 1 puff Q12 ZORAIDA Administration Sevelamer Carbonate 0.8 gm 04/03/17 08:00 04/04/17 13:11 Renvela PO 0.8 gm TIDWM ZORAIDA Administration Sodium Bicarbonate 650 mg 04/03/17 09:00 04/04/17 09:40 Sodium Bicarbonate Tab PO 650 mg BID ZORAIDA Administration - Patient Studies Lab Studies: Microbiology Studies 04/02/17 15:00 Blood Culture - Preliminary Blood-Venous NO GROWTH AFTER 48 HOURS 04/02/17 13:40 Blood Culture - Preliminary Blood-Venous NO GROWTH AFTER 48 HOURS 04/02/17 14:00 Urine Culture - Final Urine,Wang No Growth (<1,000 CFU/ML) Lab Studies 04/04/17 04/04/17 04/04/17 Range/Units 04:35 04:35 04:35 WBC 6.6 (4.8-10.8) K/uL RBC 2.29 L (4.40-5.90) Mil/uL Hgb 6.8 L (12.0-18.0) g/dL Hct 20.8 L (35.0-51.0) % MCV 90.9 (80.0-94.0) fl MCH 29.6 (27.0-31.0) pg MCHC 32.6 L (33.0-37.0) g/dL RDW 19.7 H (11.5-14.5) % Plt Count 166 (130-400) K/uL APTT 55.3 H (23.3-32.5) SECONDS Sodium 136 (132-148) mmol/l Potassium 5.3 H (3.6-5.0) MMOL/L Chloride 107 (98-107) mmol/L Carbon Dioxide 16 L (22-30) mmol/L Anion Gap 18 (10-20) BUN 93 H (9-20) mg/dl Creatinine 6.5 H (0.8-1.5) mg/dL Est GFR ( Amer) 10 Est GFR (Non-Af Amer) 9 Random Glucose 146 H (75-110) mg/dL Calcium 6.8 L (8.4-10.2) mg/dL Total Bilirubin 0.1 L (0.2-1.3) mg/dl AST 15 L D (17-59) U/L ALT 23 (21-72) U/L Alkaline Phosphatase 42 (38-126) U/L Troponin I (0.00-0.120) ng/mL Total Protein 5.6 L (6.3-8.2) G/DL Albumin 2.5 L (3.5-5.0) g/dL Globulin 3.1 (2.2-3.9) gm/dL Albumin/Globulin Ratio 0.8 L (1.0-2.1) 04/03/17 04/03/17 Range/Units 20:00 20:00 WBC (4.8-10.8) K/uL RBC (4.40-5.90) Mil/uL Hgb (12.0-18.0) g/dL Hct (35.0-51.0) % MCV (80.0-94.0) fl MCH (27.0-31.0) pg MCHC (33.0-37.0) g/dL RDW (11.5-14.5) % Plt Count (130-400) K/uL APTT 36.0 H (23.3-32.5) SECONDS Sodium (132-148) mmol/l Potassium (3.6-5.0) MMOL/L Chloride (98-107) mmol/L Carbon Dioxide (22-30) mmol/L Anion Gap (10-20) BUN (9-20) mg/dl Creatinine (0.8-1.5) mg/dL Est GFR ( Amer) Est GFR (Non-Af Amer) Random Glucose (75-110) mg/dL Calcium (8.4-10.2) mg/dL Total Bilirubin (0.2-1.3) mg/dl AST (17-59) U/L ALT (21-72) U/L Alkaline Phosphatase (38-126) U/L Troponin I 0.3260 H* (0.00-0.120) ng/mL Total Protein (6.3-8.2) G/DL Albumin (3.5-5.0) g/dL Globulin (2.2-3.9) gm/dL Albumin/Globulin Ratio (1.0-2.1) Laboratory Results - last 24 hr 04/03/17 04/03/17 04/04/17 20:00 20:00 04:35 WBC 6.6 RBC 2.29 L Hgb 6.8 L Hct 20.8 L MCV 90.9 MCH 29.6 MCHC 32.6 L RDW 19.7 H Plt Count 166 APTT 36.0 H Sodium Potassium Chloride Carbon Dioxide Anion Gap BUN Creatinine Est GFR ( Amer) Est GFR (Non-Af Amer) Random Glucose Calcium Total Bilirubin AST ALT Alkaline Phosphatase Troponin I 0.3260 H* Total Protein Albumin Globulin Albumin/Globulin Ratio 04/04/17 04/04/17 04:35 04:35 WBC RBC Hgb Hct MCV MCH MCHC RDW Plt Count APTT 55.3 H Sodium 136 Potassium 5.3 H Chloride 107 Carbon Dioxide 16 L Anion Gap 18 BUN 93 H Creatinine 6.5 H Est GFR ( Amer) 10 Est GFR (Non-Af Amer) 9 Random Glucose 146 H Calcium 6.8 L Total Bilirubin 0.1 L AST 15 L D ALT 23 Alkaline Phosphatase 42 Troponin I Total Protein 5.6 L Albumin 2.5 L Globulin 3.1 Albumin/Globulin Ratio 0.8 L Critical Care Progress Note - Nutrition Nutrition: Nutrition Category Date Time Status Renal Diet [DIET] Diets 04/02/17 Dinner Active Assessment/Plan (1) Acute systolic congestive heart failure Current Visit: Yes Status: Acute (2) Acute on chronic renal failure Current Visit: Yes Status: Acute Priority: High (3) NSTEMI (non-ST elevated myocardial infarction) Current Visit: Yes Status: Acute (4) Hyperkalemia Current Visit: No Status: Acute (5) Lower leg edema Current Visit: No Status: Acute Priority: High (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 Priority: High (7) COPD (chronic obstructive pulmonary disease) with chronic bronchitis Current Visit: No Status: Chronic Priority: Medium (8) DVT (deep venous thrombosis) Current Visit: No Status: Chronic Attending/Attestation - Attestation I have personally seen and examined this patient.: Yes I have fully participated in the care of the patient.: Yes I have reviewed all pertinent clinical information: Yes Notes (Text): 04/04/17 15:52 Today: Tuesday, April 04, 2017 The Patient was seen and examined at the bedside, Medical records reviewed, all clinical/lab/hemodynamic/radiographic data were reviewed and management issues were discussed and formulated, Events reviewed Pain issues, skin care, head of the bed elevation, GI/DVT prophylaxis, glycemic control were addressed. I discussed the plan of care with the resident and agree with the above history and physical and assessment/plans as transcribed in Dr. Del Rio note
[2017-04-04] MEDS ORDERED: Lidocaine 1% Inj (20ml) ONE (14:20)
--- NOTE | 2017-04-04 14:47 | PCM.SURG1 ---
Surgeon's Initial Post Op Note - Surgeon's Notes Surgeon: Herb Diaz MD Clinical Research Tech: NONE Type of Anesthesia: Local Pre-Operative Diagnosis: Renal failure, poor venous access Operative Findings: Patent right basilic vein, patent right IJV. Post-Operative Diagnosis: Renal failure, poor venous access Operation Performed: 1. Dual lumen picc placement right basilic vein, 35 cm. Tip in SVC. 2. Non-tunneled HD catheter placement right IJV. Specimen/Specimens Removed: None Estimated Blood Loss: EBL {In ML}: 5 Blood Products Given: N/A Drains Used: No Drains Post-Op Condition: Poor Date of Surgery/Procedure: 04/04/17 Time of Surgery/Procedure: 14:45
--- NOTE | 2017-04-04 14:57 | CARD ---
APPROVED REPORT EXAM: Two-dimensional and M-mode echocardiogram with Doppler and color Doppler. Other Information Quality : GoodRhythm : NSR INDICATION Congestive Heart Failure 2D DIMENSIONS IVSd1.07 (0.7-1.1cm)LVDd6.48 (3.9-5.9cm) PWd0.90 (0.7-1.1cm)IVSs1.07 (0.8-1.2cm) LVDs5.47 (2.5-4.0cm)FS (%) 15.6 % PWs1.09 (0.8-1.2cm) M-Mode DIMENSIONS Left Atrium (MM)3.64 (2.5-4.0cm)IVSd0.79 (0.7-1.1cm) Aortic Root3.28 (2.2-3.7cm)LVDd6.65 (4.0-5.6cm) Aortic Cusp Exc.1.95 (1.5-2.0cm)PWd1.13 (0.7-1.1cm) IVSs1.16 cmFS (%) 20 % LVDs5.29 (2.0-3.8cm)PWs1.65 cm Mitral Valve MV E Evzisrwg37.7cm/sMV DECEL [id number] A Hhgtdyci633.0cm/s MV HGZ40ouL/A ratio0.8MVA (PHT)3.77cm2 TDI Lateral E' Peak V10.67cm/sMedial E' Peak V6.60cm/sE/Lateral E'7.7 E/Medial E'12.4 LEFT VENTRICLE LV was globular in shape and moderately dilated. There is normal left ventricular wall thickness. Left ventricle systolic function is moderately impaired. The Ejection Fraction is 30-35%. There was generalised moderate hypokinesia particularly pronounced in the septum. Transmitral Doppler flow pattern is Grade I-abnormal relaxation pattern. RIGHT VENTRICLE The right ventricle is normal size. There is normal right ventricular wall thickness. The right ventricular systolic function is normal. ATRIA The left atrium size is normal. The right atrium size is normal. AORTIC VALVE The aortic valve is normal in structure and function. No aortic regurgitation is present. There is no aortic valvular stenosis. MITRAL VALVE The mitral valve is normal in structure. There is no evidence of mitral valve prolapse. There is no mitral valve stenosis. Mitral regurgitation is moderate. TRICUSPID VALVE The tricuspid valve is normal in structure and function. There is no tricuspid valve regurgitation noted. PULMONIC VALVE The pulmonary valve is normal in structure and function. There is no pulmonic valvular regurgitation. GREAT VESSELS The aortic root is normal in size. The IVC is normal in size and collapses >50% with inspiration. PERICARDIAL EFFUSION There is a small circumferential pericardial effusion. <Conclusion> LV was globular in shape and moderately dilated. There was generalised moderate hypokinesia particularly pronounced in the septum. Left ventricle systolic function is moderately impaired. The Ejection Fraction is 30-35%. Transmitral Doppler flow pattern is Grade I-abnormal relaxation pattern. Mitral regurgitation is moderate.
--- NOTE | 2017-04-04 17:15 | PN ---
DATE: 04/04/2017 The patient's shortness of breath has improved slightly. He denies chest pain. He is currently on n sadie O2. PHYSICAL EXAMINATION: VITAL SIGNS: Blood pressure 143/85, heart rate 88, temperature 97.9, respirations 22. HEENT: Pale conjunctivae. CHEST: Bilateral rhonchi. HEART: S1, S2 regular. EXTREMITIES: 2+ pitting edema. LABORATORIES: Hemoglobin and hematocrit 6.8 and 20.8 respectively. White count and platelet count a re 6.6 and 166,000. SMA-7: Sodium 136, potassium 5.3, chloride 107, CO2 16, glucose 146, BUN 93, cr eatinine 6.5. Chest CT scan was performed and the report is still pending. ASSESSMENT: 1. Worsening renal insufficiency. 2. Consider non-ST elevation myocardial infarction. 3. Congestive heart failure. The repeat echocardiograph study performed during this admission revea led generalized moderate hypokinesis, particularly pronounced in the septum with moderately impaired systolic function. Ejection fraction was estimated in the range of 30%-35%. Mild mitral insufficien cy. RECOMMENDATIONS: Continue aspirin 81 mg once a day, clonidine at 0.3 mg twice a day, Coreg at 3.125 mg twice a day, Lipitor at 20 mg once a day, Solu-Medrol at 80 mg intravenously q. 8 hours, Norvasc a t 10 mg once a day, Zosyn at 2.25 g intravenously q. 8 hours, Plavix 75 mg once a day. IV heparin wa s discontinued, which I recommended yesterday to the resident team. Hi Miles MD cc: [id number] TT: 04/04/2017 17:14:19 Confirmation # [id number] Dictation # [id number] en
--- NOTE | 2017-04-04 18:59 | CT ---
PROCEDURE: CT Chest without contrast HISTORY: respiratory distress COMPARISON: None. TECHNIQUE: Contiguous axial images were obtained through the chest without intravenous contrast enhancement. Sagittal and coronal reconstructions were performed. Radiation dose (DLP): 599 mGy-cm. This CT exam was performed using one or more of the following dose reduction techniques: Automated exposure control, adjustment of the mA and/or kV according to patient size, and/or use of iterative reconstruction technique. FINDINGS: LUNGS: Large bilateral pleural effusions with compressive atelectasis and bilateral upper lobe infiltrates. MEDIASTINUM: Unremarkable thoracic aorta. No aneurysm. Cardiomegaly with pericardial effusion.. Main pulmonary artery unremarkable. No vascular congestion. No lymphadenopathy. PLEURA: No pleural fluid. No pneumothorax. BONES: No fracture. No destructive lesion. UPPER ABDOMEN: Grossly unremarkable. OTHER FINDINGS: None. IMPRESSION: Large bilateral pleural effusions, compressive atelectasis and upper lobe infiltrates along with cardiomegaly and pericardial effusion. Correlate for CHF..
[2017-04-05] MEDS: methylPREDNISolone 80 MG in Sodium Chloride 0.9% 50 ML IVPB SCH ×3 (00:40→21:55)
[2017-04-05] MEDS: Nitroglycerin 2% 15 INCH/30 GM TUBE TOP SCH ×4 (00:42→18:11)
[2017-04-05 07:00] LABS: HEMOGLOBIN 8.5 g/dL (12.0-18.0); MEAN CELL VOLUME 87.7 fl (80.0-94.0); MEAN CORPUSCULAR HEMOGLOBIN 29.3 pg (27.0-31.0); MEAN CORPUSCULAR HGB CONC 33.4 g/dL (33.0-37.0); RBC 2.9 Mil/uL (4.40-5.90); RED CELL DISTRIBUTION WIDTH 17.9 % (11.5-14.5); WHITE BLOOD COUNT 8.3 K/uL (4.8-10.8)
[2017-04-05 07:25] LABS: ALB/GLOB RATIO 0.8 (1.0-2.1); ALBUMIN 2.3 g/dL (3.5-5.0)
[2017-04-05] MEDS: Pantoprazole 40 mg EC Tab PO SCH (08:31)
[2017-04-05] MEDS: Sevelamer Carb 0.8 gm/Packet PO SCH ×3 (08:32→16:25)
[2017-04-05] MEDS: Fluticasone-Salmeterol 500-50mcg Diskus IH SCH ×2 (08:32→21:54)
--- NOTE | 2017-04-05 09:30 | CP.PCM.PN ---
Subjective - Date & Time of Evaluation Date of Evaluation: 04/05/17 Time of Evaluation: 07:15 - Subjective Subjective: 67 y/o admitted with possible NSTEMI and respiratory distress being f/u for respiratory status, renal function after dialysis, and questionable NSTEMI. Patient was seen and examined at bedside in ICU unit this morning. Patient still with SOB in oxygen 4 LPM by NC, however slowly improving. patient has been afebrile. Patient had dialysis yesterday, and 2 PRBC were transfused. Patient tolerated both treatments well. Wang catheter in place with clear yellow urine. Objective - Vital Signs/Intake and Output Vital Signs (last 24 hours): Temp Pulse Resp BP Pulse Ox 98.3 F 88 29 H 170/95 H 96 04/05/17 08:00 04/05/17 08:31 04/05/17 08:00 04/05/17 08:31 04/05/17 08:00 Intake and Output: 04/05/17 04/05/17 06:59 18:59 Intake Total 900 Output Total 2150 Balance -1250 - Medications Medications: Current Medications Amlodipine Besylate (Norvasc) 10 mg PO DAILY [facility] Last Admin: 04/05/17 08:30 Dose: 10 mg Aspirin (Aspirin Chewable) 81 mg PO DAILY [facility] Last Admin: 04/05/17 08:29 Dose: 81 mg Atorvastatin Calcium (Lipitor) 20 mg PO HS [facility] Last Admin: 04/04/17 22:02 Dose: Not Given Carvedilol (Coreg) 3.125 mg PO Q12 [facility] Last Admin: 04/05/17 08:31 Dose: 3.125 mg Clonidine HCl (Catapres) 0.3 mg PO BID [facility] Last Admin: 04/05/17 08:30 Dose: 0.3 mg Clopidogrel Bisulfate (Plavix) 75 mg PO DAILY [facility] Last Admin: 04/05/17 08:30 Dose: 75 mg Ferrous Sulfate (Feosol) 325 mg PO DAILY [facility] Last Admin: 04/05/17 08:32 Dose: 325 mg Piperacillin Sod/Tazobactam (Sod 2.25 gm/ Sodium Chloride) 100 mls @ 100 mls/ hr IVPB Q8 [facility] Last Admin: 04/05/17 08:46 Dose: 100 mls/hr Methylprednisolone 80 mg/ (Sodium Chloride) 50 mls @ 100 mls/hr IVPB Q8 [facility] Last Admin: 04/05/17 08:29 Dose: 100 mls/hr Nitroglycerin (Nitro-Bid 2% Oint) 1 inch TOP Q6H [facility] Last Admin: 04/05/17 06:51 Dose: 1 inch Pantoprazole Sodium (Protonix Ec Tab) 40 mg PO DAILY [facility] Last Admin: 04/05/17 08:31 Dose: 40 mg Fluticasone/Salmeterol (Advair Diskus 500/50) 1 puff IH Q12 [facility] Last Admin: 04/05/17 08:32 Dose: 1 puff Sevelamer Carbonate (Renvela) 0.8 gm PO TIDWM [facility] Last Admin: 04/05/17 08:32 Dose: 0.8 gm Sodium Bicarbonate (Sodium Bicarbonate Tab) 650 mg PO BID [facility] Last Admin: 04/05/17 08:31 Dose: 650 mg - Labs Labs: 04/05/17 06:47 04/05/17 06:47 APTT 55.3 SECONDS (23.3-32.5) H 04/04/17 04:35 - Additional Findings Additional findings: Constitutional Appears: Non-toxic, No Acute Distress - Eye Exam Additional comments: right subconjunctival hemorrhage, stable compared with yesterday. - Additional Findings Additional findings: ENT Exam ENT Exam: Mucous Membranes Moist - Respiratory Exam Additional comments: moderate increased respiratory rate. Mild decreased breath sounds, fine crackles in right lower lobe. No rhonchi or wheezing. - Cardiovascular Exam Cardiovascular Exam: REGULAR RHYTHM, +S1, +S2 - GI/Abdominal Exam GI & Abdominal Exam: Distended, Soft, Normal Bowel Sounds. absent: Guarding, Rigid, Tenderness - Extremities Exam Additional comments: Lower extremities bilateral edema below knees pitting 3+ - Neurological Exam Neurological Exam: Alert, Awake, Oriented x3 - Skin Skin Exam: Dry, Intact, Pallor Assessment and Plan - Assessment and Plan (Free Text) Assessment: 67 y/o homeless male with PMH including HTN, CHF, CKD, ANCA vasculitis and DVT of RUE (detected on 02/04/17) admitted for management of NSTEMI, respiratory distress, and worsening renal function, now on dialysis, and s/p 2 units of transfused PRBC. Plan: Respiratory Distress -Improving -Etiology likely secondary to NSTEMI vs acute CHF exacerbation vs worsening of ANCA vasculitis vs Multifocal pneumonia( likely HCAP due to recent hospitalization) CXR showed : possible evidence of multifocal pneumonia , left sided pleural effusion -Oxygen by NC -Vancomycin 1 gm IV once on 04/03/17. Discuss abx with ID -Zosyn 2.25 Q 8 hrs day #2 -ID consult appreciated, Dr. Silver, due to recent hospitalization and multiple antibiotic treatment in the previous admissions -Reduced frequency to BID, Solu-medrol 80 mg Q12 IV day #2 -Furosemide 80 mg IV once today -Consider c/w Furosemide. D/W [employer] Anemia Likely secondary to ANCA vasculitis associated with CKD, but also patient is in heparin drip for ACS -s/p 2 units of PRBC transfusion - H/H improved after transfusion, 8.5/25.5 -Continue monitoring of H/H NSTEMI -ICU monitoring -C/w aspirin 81 mg daily -C/w plavix 75 mg daily -Coreg 3.125mg PO Q12 -s/p Heparin drip -Not a good candidate for MAN-i due to impaired renal function -Troponin I X 2 trending up 0.2850, 0.5490 -Cardiology on board, f/u recommendations Systolic CHF with acute exacerbation -Last echo performed 12/08/16 revealing mild LVH and a mildly impaired EF of 45-50 %. Inferolateral hypokinesis was also detected. -ProBNP: 167,000 -IV Lasix 60mg given once today -Carvedilol 3.125mg PO Q12h -Not a good candidate for MAN-i or Aldactone due to impaired renal function -Strict I/Os. Daily weights. -Bedside echo pending report Acute on Chronic Kidney disease CKD most likely secondary to ANCA vasculitis -Patient is no complaint with medications -BUN/Cr: worsening 57/3.9 improving after HD yesterday -Nephrology consulted, on board - Permanent Cath for Dialysis as per Nephro rec -Consider Cytoxin by Nephrology History of DVT in RUE -RUE DVT detected on 02/04/17 however patient was not a good candidate for shelter anticoagulation -D-dimer also elevated at admission but of undetermined significance -B/L upper extremities US showed partial compression of the right basilic vein, possible due to a chronic thrombus -B/L lower extremities US showed no evidence of DVT -Will consider V/Q scan -S/P Heparin drip ( for therapeutic management of ACS), was stopped because dropped in H/H HTN -Most likely secondary to medication non-adherence and worsening renal function -Amlodipine 10mg PO daily -Clonidine 0.3mg PO bid -c/w Carvedilol was started by cardio at admission -Home Labetalol 400mg Q12h -Re-start home Hydralazine, but decreased dose from 20mg to 10 mg Q8H. Patient is in dialysis DVT Prophylaxis -S/P Heparin drip ( for therapeutic management of ACS), was stopped because dropped in H/H -SCDs -Start Heparin 5000 units SC BID once today Consider daily evaluation before renew order, because patient has two episodes of dropping H/H after heparin drip ( once in this admission, and once in previous admission)
--- NOTE | 2017-04-05 10:08 | CARD ---
APPROVED REPORT EKG Measurement Heart [id number] <Conclusion> Sinus tachycardia Septal infarct, age undetermined T wave abnormality, consider lateral ischemia Abnormal ECG
--- NOTE | 2017-04-05 10:08 | CARD ---
APPROVED REPORT EKG Measurement Heart [id number] 112P [id number] <Conclusion> Sinus tachycardia Septal infarct, age undetermined Abnormal ECG
--- NOTE | 2017-04-05 11:41 | CP.PCM.PN ---
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 Discussed with the resident in ICU. Objective - Vital Signs/Intake and Output Vital Signs (last 24 hours): Temp Pulse Resp BP Pulse Ox 98.3 F 75 22 140/76 96 04/05/17 08:00 04/05/17 10:00 04/05/17 10:00 04/05/17 10:00 04/05/17 10:00 Intake and Output: 04/05/17 04/05/17 06:59 18:59 Intake Total 900 630 Output Total 2150 Balance -1250 630 - Medications Medications: Current Medications Amlodipine Besylate (Norvasc) 10 mg PO DAILY [facility] Last Admin: 04/05/17 08:30 Dose: 10 mg Aspirin (Aspirin Chewable) 81 mg PO DAILY [facility] Last Admin: 04/05/17 08:29 Dose: 81 mg Atorvastatin Calcium (Lipitor) 20 mg PO HS [facility] Last Admin: 04/04/17 22:02 Dose: Not Given Carvedilol (Coreg) 3.125 mg PO Q12 [facility] Last Admin: 04/05/17 08:31 Dose: 3.125 mg Clonidine HCl (Catapres) 0.3 mg PO BID [facility] Last Admin: 04/05/17 08:30 Dose: 0.3 mg Clopidogrel Bisulfate (Plavix) 75 mg PO DAILY [facility] Last Admin: 04/05/17 08:30 Dose: 75 mg Ferrous Sulfate (Feosol) 325 mg PO DAILY [facility] Last Admin: 04/05/17 08:32 Dose: 325 mg Heparin Sodium (Porcine) (Heparin) 5,000 units SC Q12 [facility] PRN Reason: Protocol Hydralazine HCl (Apresoline) 10 mg PO TID [facility] Piperacillin Sod/Tazobactam (Sod 2.25 gm/ Sodium Chloride) 100 mls @ 100 mls/ hr IVPB Q8 [facility] Last Admin: 04/05/17 08:46 Dose: 100 mls/hr Methylprednisolone 80 mg/ (Sodium Chloride) 50 mls @ 100 mls/hr IVPB Q12 [facility] Nitroglycerin (Nitro-Bid 2% Oint) 1 inch TOP Q6H [facility] Last Admin: 04/05/17 06:51 Dose: 1 inch Pantoprazole Sodium (Protonix Ec Tab) 40 mg PO DAILY [facility] Last Admin: 04/05/17 08:31 Dose: 40 mg Fluticasone/Salmeterol (Advair Diskus 500/50) 1 puff IH Q12 [facility] Last Admin: 04/05/17 08:32 Dose: 1 puff Sevelamer Carbonate (Renvela) 0.8 gm PO TIDWM [facility] Last Admin: 04/05/17 08:32 Dose: 0.8 gm Sodium Bicarbonate (Sodium Bicarbonate Tab) 650 mg PO BID [facility] Last Admin: 04/05/17 08:31 Dose: 650 mg - Labs Labs: 04/05/17 06:47 04/05/17 06:47 APTT 55.3 SECONDS (23.3-32.5) H 04/04/17 04:35 Assessment and Plan (1) Acute on chronic renal failure Status: Acute (2) Acute systolic congestive heart failure Status: Acute
--- NOTE | 2017-04-05 12:58 | CP.CCUPN ---
<Evelyn Del Rio - Last Filed: 04/05/17 12:19> CCU Subjective - Physician Review Subjective (Free Text): 04/05/17 13:04 Patient seen and examined at bedside with ICU attending during morning rounds. He is sitting upright in bed and appears comfortable. He has been able to wean his O2 via NC from 7L to 4L and continues to sat at 96%. He reports continued improvement in his SOB but still has a cough, productive of nonbloody sputum. He denies chest pain, abdominal pain, nausea or vomiting. Patient is s/p 2 units pRBC yesterday, which he tolerated well. Hemoglobin up from 6.8 > 8.5. CCU Objective - Vital Signs / Intake & Output Vital Signs (Last 4 hours): Vital Signs Temp Pulse Resp BP Pulse Ox 04/05/17 12:00 97.5 F L 111 H 28 H 132/70 93 L 04/05/17 10:00 75 22 140/76 96 04/05/17 09:00 88 23 155/87 H 95 04/05/17 08:31 88 170/95 H 04/05/17 08:30 88 170/95 H Intake and Output (Last 8hrs): Intake & Output 04/04/17 04/05/17 04/05/17 22:59 06:59 14:59 Intake Total 150 900 630 Output Total 400 2150 Balance -250 -1250 630 Intake: Intake, Piggyback 150 150 150 Oral 100 480 Blood Product 650 Output: Urine 400 300 Urethral (Wang) 400 300 Other 1850 Other: # Bowel Movements 1 - Physical Exam Head: Positive for: Atraumatic, Normocephalic Pupils: Positive for: PERRL Extroacular Muscles: Positive for: EOMI Mouth: Positive for: Dry Respiratory/Chest: Positive for: Tachypneic, Other (B/L air entry present but slightly decreased in left lung [place] compared to right. No wheezes, rales or rhonchii are audible. ). Negative for: Accessory Muscle Use, Wheezes Cardiovascular: Positive for: Regular Rate and Rhythm, Peripheal Pulses Present. Negative for: Tachycardic Abdomen: Positive for: Normal Bowel Sounds. Negative for: Tenderness, Distention, Rebound Upper Extremity: Positive for: Normal Inspection, Capillary Refill < 2s Lower Extremity: Positive for: Edema (3+ Pitting edema present below knees b/l) Neurological: Positive for: GCS=15, CN II-XII Intact, Speech Normal Skin: Positive for: Erythematous (chronic lower extremity erythema b/l) Psychiatric: Positive for: Alert, Oriented x 3, Normal Insight - Medications Active Medications: Active Medications Generic Name Dose Route Start Last Admin Trade Name Freq PRN Reason Stop Dose Admin Amlodipine Besylate 10 mg 04/03/17 09:00 04/05/17 08:30 Norvasc PO 10 mg DAILY [facility] Administration Aspirin 81 mg 04/03/17 09:00 04/05/17 08:29 Aspirin Chewable PO 81 mg DAILY [facility] Administration Atorvastatin Calcium 20 mg 04/03/17 22:00 04/04/17 22:02 Lipitor PO Not Given HS [facility] Carvedilol 3.125 mg 04/02/17 21:00 04/05/17 08:31 Coreg PO 3.125 mg Q12 [facility] Administration Clonidine HCl 0.3 mg 04/03/17 09:00 04/05/17 08:30 Catapres PO 0.3 mg BID [facility] Administration Clopidogrel Bisulfate 75 mg 04/03/17 09:00 04/05/17 08:30 Plavix PO 75 mg DAILY [facility] Administration Ferrous Sulfate 325 mg 04/03/17 09:00 04/05/17 08:32 Feosol PO 325 mg DAILY [facility] Administration Heparin Sodium (Porcine) 5,000 units 04/05/17 21:00 Heparin SC Q12 [facility] Protocol Hydralazine HCl 10 mg 04/05/17 13:00 Apresoline PO TID [facility] Piperacillin Sod/Tazobactam 100 mls @ 100 mls/hr 04/03/17 18:30 04/05/17 08: 46 Sod 2.25 gm/ Sodium Chloride IVPB 100 mls/hr Q8 [facility] Administration Methylprednisolone 80 mg/ 50 mls @ 100 mls/hr 04/05/17 21:00 Sodium Chloride IVPB Q12 [facility] Nitroglycerin 1 inch 04/02/17 19:00 04/05/17 06:51 Nitro-Bid 2% Oint TOP 1 inch Q6H [facility] Administration Pantoprazole Sodium 40 mg 04/03/17 09:00 04/05/17 08:31 Protonix Ec Tab PO 40 mg DAILY [facility] Administration Fluticasone/Salmeterol 1 puff 04/02/17 21:00 04/05/17 08:32 Advair Diskus 500/50 IH 1 puff Q12 [facility] Administration Sevelamer Carbonate 0.8 gm 04/03/17 08:00 04/05/17 08:32 Renvela PO 0.8 gm TIDWM [facility] Administration Sodium Bicarbonate 650 mg 04/03/17 09:00 04/05/17 08:31 Sodium Bicarbonate Tab PO 650 mg BID [facility] Administration - Patient Studies Lab Studies: Microbiology Studies 04/02/17 15:00 Blood Culture - Preliminary Blood-Venous NO GROWTH AFTER 48 HOURS 04/02/17 13:40 Blood Culture - Preliminary Blood-Venous NO GROWTH AFTER 48 HOURS 04/02/17 14:00 Urine Culture - Final Urine,Wang No Growth (<1,000 CFU/ML) Lab Studies 04/05/17 04/05/17 04/04/17 Range/Units 06:47 06:47 18:30 WBC 8.3 (4.8-10.8) K/uL RBC 2.90 L (4.40-5.90) Mil/uL Hgb 8.5 L (12.0-18.0) g/dL Hct 25.5 L (35.0-51.0) % MCV 87.7 D (80.0-94.0) fl MCH 29.3 (27.0-31.0) pg MCHC 33.4 (33.0-37.0) g/dL RDW 17.9 H (11.5-14.5) % Plt Count 190 (130-400) K/uL Sodium 138 (132-148) mmol/l Potassium 3.9 (3.6-5.0) MMOL/L Chloride 108 H (98-107) mmol/L Carbon Dioxide 19 L (22-30) mmol/L Anion Gap 15 (10-20) BUN 57 H (9-20) mg/dl Creatinine 3.9 H (0.8-1.5) mg/dL Est GFR ( Amer) 19 Est GFR (Non-Af Amer) 16 Random Glucose 153 H (75-110) mg/dL Calcium 6.0 L* (8.4-10.2) mg/dL Total Bilirubin 0.2 (0.2-1.3) mg/dl AST 14 L (17-59) U/L ALT 23 (21-72) U/L Alkaline Phosphatase 41 (38-126) U/L NT-Pro-B Natriuret Pep 00826 H (0-900) pg/ml Total Protein 5.2 L (6.3-8.2) G/DL Albumin 2.3 L (3.5-5.0) g/dL Globulin 2.9 (2.2-3.9) gm/dL Albumin/Globulin Ratio 0.8 L (1.0-2.1) U Random Total Protein (50-250) mg/L Ur Total Protein 24 Hr (<150) mg/24 h Hep Bs Antigen (NEGATIVE) Blood Type A POSITIVE Antibody Screen Negative Crossmatch See Detail BBK History Checked Patient has bt 04/04/17 04/04/17 Range/Units 07:00 05:00 WBC (4.8-10.8) K/uL RBC (4.40-5.90) Mil/uL Hgb (12.0-18.0) g/dL Hct (35.0-51.0) % MCV (80.0-94.0) fl MCH (27.0-31.0) pg MCHC (33.0-37.0) g/dL RDW (11.5-14.5) % Plt Count (130-400) K/uL Sodium (132-148) mmol/l Potassium (3.6-5.0) MMOL/L Chloride (98-107) mmol/L Carbon Dioxide (22-30) mmol/L Anion Gap (10-20) BUN (9-20) mg/dl Creatinine (0.8-1.5) mg/dL Est GFR ( Amer) Est GFR (Non-Af Amer) Random Glucose (75-110) mg/dL Calcium (8.4-10.2) mg/dL Total Bilirubin (0.2-1.3) mg/dl AST (17-59) U/L ALT (21-72) U/L Alkaline Phosphatase (38-126) U/L NT-Pro-B Natriuret Pep (0-900) pg/ml Total Protein (6.3-8.2) G/DL Albumin (3.5-5.0) g/dL Globulin (2.2-3.9) gm/dL Albumin/Globulin Ratio (1.0-2.1) U Random Total Protein 3219 H (50-250) mg/L Ur Total Protein 24 Hr 1191 H (<150) mg/24 h Hep Bs Antigen Negative (NEGATIVE) Blood Type Antibody Screen Crossmatch BBK History Checked Laboratory Results - last 24 hr 04/04/17 04/04/17 04/04/17 05:00 07:00 18:30 WBC RBC Hgb Hct MCV MCH MCHC RDW Plt Count Sodium Potassium Chloride Carbon Dioxide Anion Gap BUN Creatinine Est GFR ( Amer) Est GFR (Non-Af Amer) Random Glucose Calcium Total Bilirubin AST ALT Alkaline Phosphatase NT-Pro-B Natriuret Pep Total Protein Albumin Globulin Albumin/Globulin Ratio U Random Total Protein 3219 H Ur Total Protein 24 Hr 1191 H Hep Bs Antigen Negative Blood Type A POSITIVE Antibody Screen Negative Crossmatch See Detail BBK History Checked Patient has bt 04/05/17 04/05/17 06:47 06:47 WBC 8.3 RBC 2.90 L Hgb 8.5 L Hct 25.5 L MCV 87.7 D MCH 29.3 MCHC 33.4 RDW 17.9 H Plt Count 190 Sodium 138 Potassium 3.9 Chloride 108 H Carbon Dioxide 19 L Anion Gap 15 BUN 57 H Creatinine 3.9 H Est GFR ( Amer) 19 Est GFR (Non-Af Amer) 16 Random Glucose 153 H Calcium 6.0 L* Total Bilirubin 0.2 AST 14 L ALT 23 Alkaline Phosphatase 41 NT-Pro-B Natriuret Pep 08481 H Total Protein 5.2 L Albumin 2.3 L Globulin 2.9 Albumin/Globulin Ratio 0.8 L U Random Total Protein Ur Total Protein 24 Hr Hep Bs Antigen Blood Type Antibody Screen Crossmatch BBK History Checked Review of Systems - Constitutional Constitutional: absent: Fever, Chills - EENT Nose/Mouth/Throat: Dry Mouth - Cardiovascular Cardiovascular: Leg Edema. absent: Chest Pain, Diaphoresis, Palpitations - Respiratory Respiratory: Cough. 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 Patient was admitted to ICU on 04/02/17 for respiratory insufficiency likely secondary to acute exacerbation of systolic CHF and possible NSTEMI. Plan: Respiratory insufficiency -Etiology likely secondary to NSTEMI vs acute CHF exacerbation -Patient intially placed on BIPAP -CT Chest performed yesterday which reveals large pleural effusions and upper lobe infiltrates. -If effusion does not improve with lasix, may consider IR guided drainage -WBC remains within normal limits. No fevers measured. -Received Vancomycin on 04/03 (1 dose) and Has been receiving Zosyn 2.25 IV Q8h ( Started 04/03, Current day 3) -Obtain vancomycin trough during dialysis tomorrow and consider vancomycin dosing adjustments -Will repeat CXR for tomorrow -Has tolerated wean of O2 via NC from 7L to 4L, currently satting at 96% -Will continue to wean as tolerated Systolic CHF with acute exacerbation -Last echo performed 12/08/16 revealing mild LVH and a mildly impaired EF of 45-50 %. Inferolateral hypokinesis was also detected. -Repeat echo performed yesterday, detects generalized hypokinesia and a decreased LVEF of 30-35%. -ProBNP: 167,000 on admission -Has been receiving IV Lasix with 700cc urine output over the last 24 hrs -Additional 1850cc UF removed during dialysis -Carvedilol 3.125mg PO Q12h -Not a good candidate for MAN-i due to SHERRY at this time -Continue strict I/Os. Daily weights. S/P NSTEMI -S/P likely NSTEMI on 04/02/17 based on serial troponins peaking at 0.5490 -Initial EKG in ER detected tachycardia with signs of MAT and possible lateral ischemia -Subsequent EKG revealed sinus tachycardia -Had improvement with Cardizem drip and heparin drip, which have been discontinued -Cardiology consultation appreciated -Patient was not a good candidate for invasive cardiac workup due to co- existing acute renal failure -Will continue with Coreg 3.125mg PO Q12, ASA 81mg PO daily, Plavix 75mg PO daily Acute Renal Failure on Chronic CKD -BUN/Cr worsening (from 77/6.0 > 93/6.5) compared to 52/3.2 on previous admission from 2 weeks ago -Etiology possibly related to CHF exacerbation versus related to history of 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 New DVT ruled out HTN -Uncontrolled secondary to medication non-adherence -Amlodipine 10mg PO daily -Clonidine 0.3mg PO bid -Carvedilol was started by cardio at admission -Home Labetalol 400mg Q12h and Hydralazine 20mg Q8H held Hypocalcemia -Patient is normal sinus rhythm. No twitching movements noted. -Will monitor serum calcium DVT Prophylaxis -On Heparin SC -SCDs <Keshawn Dykes - Last Filed: 04/05/17 15:08> CCU Subjective - Physician Review Subjective (Free Text): Attestation: Patient seen and examined at the bedside with Resident Dr. Deanne Del Rio; and I agree with his documented outline of plans and management as discussed on AM rounds, reflecting my review of all applicable clinical data, and participation in the care of the patient throughout the day in ICU; today, April 05, 2017.
--- NOTE | 2017-04-05 14:43 | VASCULAR ---
PROCEDURE: Date of procedure: 04/04/2017 Procedure: 1. Placement of a right arm PICC with ultrasound and fluoroscopic guidance, CPT 85732 2. PICC tip confirmation with spot radiograph and is in the superior vena cava Medications: 4cc 1 percent lidocaine HISTORY: Renal failure, poor venous access, TECHNIQUE: Following informed consent and procedure time-out, the patient was placed supine on the interventional table and the right arm prepped and draped in the usual sterile fashion. Ultrasound showed a patent and compressible right basilic vein. After the skin was anesthetized with lidocaine, the basilic vein was accessed with micro micropuncture technique using ultrasound guidance. A guidewire was then advanced under fluoroscopic guidance into the superior vena cava. An image documenting ultrasound guidance for vascular access was permanently saved. The length of the dual-lumen 4 Swazi PICC was trimmed to 35 centimeters and advanced through a peel-away sheath. The PICC was position with tip of PICC confirm a spot radiograph the superior vena cava. The PICC was secured to the patient's skin. The PICC was flushed. A biopatch and sterile dressing was applied. IMPRESSION: Placement of a dual-lumen 4 Swazi PICC trimmed to 35 centimeters via right basilic vein. The tip of the PICC is confirmed with spot radiograph and is in the superior vena cava.
--- NOTE | 2017-04-05 14:48 | VASCULAR ---
PROCEDURE: Date of procedure: 04/04/2017 Procedure: Placement of a non tunneled hemodialysis catheter, CPT 81495 Medications: 6cc 1 percent lidocaine HISTORY: Acute renal failure TECHNIQUE: Following informed consent, the patient's right neck was prepped and draped in the usual sterile fashion. Ultrasound showed a patent and compressible right internal jugular vein. After the skin was anesthetized with 1% lidocaine, the internal jugular vein was accessed under direct ultrasound guidance with micropuncture technique and a guidewire was advanced under fluorospocic guidance into the SVC. The venotomy was then dilated to accommodate a non tunneled 15 hemodialysis catheter. An image documenting ultrasound guidance for vascular access was permanently saved. The catheter was tested and has adequate blood return for hemodialysis. The catheter was flushed and loaded with heparin per specified amounts. The catheter was secured to patient's skin. A dressing was applied. Post procedure chest x-ray showed a hemodialysis catheter at the caval atrial junction. IMPRESSION: Placement of a non tunneled 15 centimeter hemodialysis catheter via the right internal jugular vein. The tip of the catheter was confirmed with a postoperative chest x-ray and is at the superior vena cava-cavoatrial junction. The catheter is functional ready for use.
--- NOTE | 2017-04-05 14:53 | CP.PCM.CON ---
History of Present Illness - History of Present Illness History of Present Illness: PT WELL KNOWN TO ID SERVICE WITH VASCULITIS PROGRESSING TO RENAL FAILURE NOW IN ICU ON HD HAS HX + PPD BUT NEGATIVE AFB SMEARS / CULTURES ' 67 y/o homeless M with PMH including HTN, CHF, CKD, ANCA vasculitis and DVT of RUE (detected on 02/04/17) presents to ED with roughly 4 day history of progressive SOB. Patient reports noticing increasing SOB, lower extremity edema and progressive exercise intolerance which became associated with chest pain today. Chest pain was retrosternal, non radiating, "pressure" like in quality and 9/10 intensity. Patient also notes associated subjective fever, chills and cough productive of blood tinged mucus. He denies headache, visual disturbances , abdominal pain or focal weakness. Review of Systems - Constitutional Constitutional: As Per HPI - EENT Eyes: absent: As Per HPI, Blind Spots, Blurred Vision, Change in Vision, Decreased Night Vision, Diplopia, Discharge, Dry Eye, Exophthalmos, Floaters, Irritation, Itchy Eyes, Loss of Peripheral Vision, Pain, Photophobia, Requires Corrective Lenses, Sees Flashes, Spots in Vision, Tunnel Vision, Other Visual Disturbances, Loss of Vision, Other Ears: absent: As Per HPI, Decreased Hearing, Ear Discharge, Ear Pain, Tinnitus, Abnormal Hearing, Disequilibrium, Dizziness, Other Nose/Mouth/Throat: absent: As Per HPI, Epistaxis, Nasal Congestion, Nasal Discharge, Nasal Obstruction, Nasal Trauma, Nose Pain, Post Nasal Drip, Sinus Pain, Sinus Pressure, Bleeding Gums, Change in Voice, Dental Pain, Dry Mouth, Dysphagia, Halitosis, Hoarsness, Lip Swelling, Mouth Lesions, Mouth Pain, Odynophagia, Sore Throat, Throat Swelling, Tongue Swelling, Facial Pain, Neck Pain, Neck Mass, Other - Cardiovascular Cardiovascular: As Per HPI - Respiratory Respiratory: As Per HPI - Gastrointestinal Gastrointestinal: As Per HPI - Genitourinary Genitourinary: absent: As Per HPI, Change in Urinary Stream, Difficulty Urinating, Dysuria, Flank Pain, Hematuria, Pyuria, Nocturia, Urinary Incontinence, Urinary Frequency, Urinary Hesitance, Urinary Urgency, Voiding Freq/Small Amts, Freq UTI, Hx Renal/Bladder Calculi, Hx /Renal Surgery, Bladder Distension, Other - Musculoskeletal Musculoskeletal: absent: As Per HPI, Abnormal Gait, Arthralgias, Atrophy, Back Pain, Deformity, Joint Swelling, Limited Range of Motion, Loss of Height, Muscle Cramps, Muscle Weakness, Myalgias, Neck Pain, Numbness, Radiating Pain into Limb, Stiffness, Tingling, Other - Integumentary Integumentary: absent: As Per HPI, Acne, Alopecia, Bleeding Lesions, Change in Hair, Change in Nails, Change in Pigmentation, Changing Lesions, Dry Skin, Erythema, Furuncle, Hirsutism, Lesions, New Lesions, Non-Healing Lesions, Photosensitivity, Pruritus, Rash, Skin Pain, Skin Ulcer, Sores, Striae, Swelling , Unusual Bruising, Wounds, Jaundice, Other - Neurological Neurological: absent: As Per HPI, Abnormal Gait, Abnormal Hearing, Abnormal Movements, Abnormal Speech, Behavioral Changes, Burning Sensations, Confusion, Convulsions, Disequilibrium, Dizziness, Numbness, Focal Weakness, Frequent Falls , Headaches, Lack of Coordination, Loss of Vision, Memory Loss, Paresthesias, Radicular Pain, Restless Legs, Sensory Deficit, Syncope, Tingling, Tremor, Vertigo, Weakness, Other Visual Disturbances, Other - Psychiatric Psychiatric: absent: As Per HPI, Abnormal Sleep Pattern, Anhedonia, Anxiety, Auditory Hallucinations, Behavioral Changes, Change in Appetite, Change in Libido, Confusion, Depression, Difficulty Concentrating, Hallucinations, Homicidal Ideation, Hopelessness, Irritability, Memory Loss, Mood Swings, Panic Attacks, Paranoia, Suicidal Ideation, Visual Hallucinations, Tactile Hallucinations, Other - Endocrine Endocrine: absent: As Per HPI, Change in Body Appearance, Change in Libido, Cold Intolorance, Deepening of Voice, Excessive Sweating, Fatigue, Flushing, Heat Intolorance, Increase in Ring/Shoe/Hat Size, Palpitations, Polydipsia, Polyphagia, Polyuria, Other - Hematologic/Lymphatic Hematologic: absent: As Per HPI, Easy Bleeding, Easy Bruising, Lymphadenopathy, Other Past Patient History - Infectious Disease Hx of Infectious Diseases: None - Past Medical History & Family History Past Medical History?: Yes - Past Social History Smoking Status: Former Smoker - CARDIAC Hx Cardiac Disorders: Yes Hx Hypertension: Yes - PULMONARY Hx Respiratory Disorders: Yes Hx Chronic Obstructive Pulmonary Disease (COPD): Yes - NEUROLOGICAL Hx Neurological Disorder: Yes - HEENT Hx HEENT Problems: No - RENAL Hx Chronic Kidney Disease: Yes - ENDOCRINE/METABOLIC Hx Endocrine Disorders: No - HEMATOLOGICAL/ONCOLOGICAL Hx Anemia: Yes - INTEGUMENTARY Hx Dermatological Problems: No - MUSCULOSKELETAL/RHEUMATOLOGICAL Hx Musculoskeletal Disorders: Yes - GASTROINTESTINAL Hx Gastrointestinal Disorders: Yes Hx Hemorrhoids: Yes - GENITOURINARY/GYNECOLOGICAL Hx Genitourinary Disorders: No - PSYCHIATRIC Hx Psychophysiologic Disorder: Yes - SURGICAL HISTORY Hx Coronary Stent: No - ANESTHESIA Hx Anesthesia: Yes Hx Anesthesia Reactions: No Meds Allergies/Adverse Reactions: Allergies Allergy/AdvReac Type Severity Reaction Status Date / Time sulfamethoxazole Allergy RASH Verified 03/06/17 17:55 [From ] trimethoprim [From ] Allergy RASH Verified 03/06/17 17:55 - Medications Medications: Current Medications Amlodipine Besylate (Norvasc) 10 mg PO DAILY [facility] Last Admin: 04/05/17 08:30 Dose: 10 mg Aspirin (Aspirin Chewable) 81 mg PO DAILY [facility] [place] Last Admin: 04/05/17 08:29 Dose: 81 mg Atorvastatin Calcium (Lipitor) 20 mg PO HS [facility] [place] Last Admin: 04/04/17 22:02 Dose: Not Given Carvedilol (Coreg) 3.125 mg PO Q12 [facility] [place] Last Admin: 04/05/17 08:31 Dose: 3.125 mg Clonidine HCl (Catapres) 0.3 mg PO BID [facility] [place] Last Admin: 04/05/17 08:30 Dose: 0.3 mg Clopidogrel Bisulfate (Plavix) 75 mg PO DAILY [facility] [place] Last Admin: 04/05/17 08:30 Dose: 75 mg Ferrous Sulfate (Feosol) 325 mg PO DAILY [facility] [place] Last Admin: 04/05/17 08:32 Dose: 325 mg Heparin Sodium (Porcine) (Heparin) 5,000 units SC Q12 [facility] [place] PRN Reason: Protocol Hydralazine HCl (Apresoline) 10 mg PO TID [facility] [place] Last Admin: 04/05/17 12:23 Dose: 10 mg Piperacillin Sod/Tazobactam (Sod 2.25 gm/ Sodium Chloride) 100 mls @ 100 mls/ hr IVPB Q8 [facility] [place] Last Admin: 04/05/17 08:46 Dose: 100 mls/hr Methylprednisolone 80 mg/ (Sodium Chloride) 50 mls @ 100 mls/hr IVPB Q12 [facility] [place] Nitroglycerin (Nitro-Bid 2% Oint) 1 inch TOP Q6H [facility] [place] Last Admin: 04/05/17 12:24 Dose: 1 inch Pantoprazole Sodium (Protonix Ec Tab) 40 mg PO DAILY [facility] [place] Last Admin: 04/05/17 08:31 Dose: 40 mg Fluticasone/Salmeterol (Advair Diskus 500/50) 1 puff IH Q12 [facility] [place] Last Admin: 04/05/17 08:32 Dose: 1 puff Sevelamer Carbonate (Renvela) 0.8 gm PO TIDWM [facility] [place] Last Admin: 04/05/17 12:24 Dose: 0.8 gm Sodium Bicarbonate (Sodium Bicarbonate Tab) 650 mg PO BID [facility] [place] Last Admin: 04/05/17 08:31 Dose: 650 mg Physical Exam - Constitutional Appears: Non-toxic, Cachectic, Chronically Ill - Head Exam Head Exam: NORMOCEPHALIC - Eye Exam Eye Exam: PERRL. absent: Scleral icterus - ENT Exam ENT Exam: Mucous Membranes Dry, Normal External Ear Exam - Neck Exam Neck exam: Negative for: Lymphadenopathy, Thyromegaly - Respiratory Exam Respiratory Exam: Decreased Breath Sounds, Rhonchi - Cardiovascular Exam Cardiovascular Exam: REGULAR RHYTHM, +S1, +S2 - GI/Abdominal Exam GI & Abdominal Exam: Diminished Bowel Sounds, Soft. absent: Tenderness - Rectal Exam Rectal Exam: Deferred - Exam Exam: NORMAL INSPECTION - Extremities Exam Extremities exam: Negative for: calf tenderness, pedal edema - Back Exam Back exam: absent: CVA tenderness (L), CVA tenderness (R) - Neurological Exam Neurological exam: Alert, CN II-XII Intact, Oriented x3, Reflexes Normal - Psychiatric Exam Psychiatric exam: Normal Mood - Skin Skin Exam: Dry, Intact Results - Vital Signs Recent Vital Signs: Last Vital Signs Temp 97.5 F L 04/05/17 12:00 Pulse 72 04/05/17 14:00 Resp 23 04/05/17 14:00 BP 142/81 04/05/17 14:00 Pulse Ox 96 04/05/17 14:00 - Labs Result Diagrams: 04/05/17 06:47 04/05/17 06:47 Labs: Laboratory Results - last 24 hr 04/04/17 04/04/17 04/04/17 05:00 05:00 07:00 WBC RBC Hgb Hct MCV MCH MCHC RDW Plt Count Sodium Potassium Chloride Carbon Dioxide Anion Gap BUN Creatinine Est GFR ( Amer) Est GFR (Non-Af Amer) Random Glucose Calcium Total Bilirubin AST ALT Alkaline Phosphatase NT-Pro-B Natriuret Pep Total Protein Albumin Globulin Albumin/Globulin Ratio U Random Total Protein 3219 H Ur Total Protein 24 Hr 1191 H Hep Bs Antigen Negative Hep Bs Antibody Negative Blood Type Antibody Screen Crossmatch BBK History Checked 04/04/17 04/05/17 04/05/17 18:30 06:47 06:47 WBC 8.3 RBC 2.90 L Hgb 8.5 L Hct 25.5 L MCV 87.7 D MCH 29.3 MCHC 33.4 RDW 17.9 H Plt Count 190 Sodium 138 Potassium 3.9 Chloride 108 H Carbon Dioxide 19 L Anion Gap 15 BUN 57 H Creatinine 3.9 H Est GFR ( Amer) 19 Est GFR (Non-Af Amer) 16 Random Glucose 153 H Calcium 6.0 L* Total Bilirubin 0.2 AST 14 L ALT 23 Alkaline Phosphatase 41 NT-Pro-B Natriuret Pep 33785 H Total Protein 5.2 L Albumin 2.3 L Globulin 2.9 Albumin/Globulin Ratio 0.8 L U Random Total Protein Ur Total Protein 24 Hr Hep Bs Antigen Hep Bs Antibody Blood Type A POSITIVE Antibody Screen Negative Crossmatch See Detail BBK History Checked Patient has bt Assessment & Plan (1) Acute on chronic renal failure Status: Acute Priority: High (2) Acute systolic congestive heart failure Status: Acute (3) CHF (congestive heart failure) Status: Acute (4) NSTEMI (non-ST elevated myocardial infarction) Status: Acute
--- NOTE | 2017-04-05 17:08 | PN ---
DATE: 04/05/2017 SUBJECTIVE: The patient underwent hemodialysis yesterday. Shortness of breath has improved. PHYSICAL EXAMINATION: VITAL SIGNS: Blood pressure 142/81, heart rate 72, temperature 97.5, respirations 23. HEENT: Pale conjunctivae. CHEST: Bilateral bibasilar rhonchi. HEART: S1, S2 regular. EXTREMITIES: 2+ pitting edema. LABORATORIES: Hemoglobin and hematocrit 8.5 and 25.5. White count and platelet count are within nor mal limits. Today's BUN and creatinine are 153 and 6.0. . Infectious disease has evaluated t he patient and his conclusion included acute on chronic renal failure, acute systolic congestive hear t failure, CHF, Non-STEMI. Dr. Sandoval's evaluation was also reviewed and he stated the patient compl eted hemodialysis yesterday and received 2 units of packed RBCs. ASSESSMENT: 1. End-stage renal disease. Hemodialysis was ordered and initiated yesterday. 2. Anemia. The patient received 2 units packed red blood cell transfusion. 3. Non-ST elevation myocardial infarction. 4. Acute systolic heart failure. RECOMMENDATIONS: His case was discussed at length with the primary physician, Dr. 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 . Continue current hydralazine at 10 mg t.i.d., aspirin 81 mg once a day, clonidine 0.3 mg once a day, Coreg at 3.125 mg twice a day, subcutaneous heparin 5000 units twice a day, Lipitor 20 mg once a day, Solu-Medrol at 8 mg intravenously q. 12 hours, Norvasc at 10 mg once a day, Zosyn 2.25 mg intravenous q. 8 hours, Plavix 75 mg once a day. The patient is not a suitable c andidate for any invasive cardiac workup. Hi Miles MD cc: [id number] TT: 04/05/2017 17:07:46 Confirmation # [id number] Dictation # [id number] mn
[2017-04-06] MEDS: Nitroglycerin 2% 15 INCH/30 GM TUBE TOP SCH ×4 (00:58→19:30)
[2017-04-06 05:30] LABS: HEMOGLOBIN 8.2 g/dL (12.0-18.0); MEAN CELL VOLUME 89.6 fl (80.0-94.0); MEAN CORPUSCULAR HEMOGLOBIN 28.5 pg (27.0-31.0); MEAN CORPUSCULAR HGB CONC 31.7 g/dL (33.0-37.0); RBC 2.89 Mil/uL (4.40-5.90); RED CELL DISTRIBUTION WIDTH 18.2 % (11.5-14.5); WHITE BLOOD COUNT 11.3 K/uL (4.8-10.8)
[2017-04-06 05:42] LABS: ALB/GLOB RATIO 0.9 (1.0-2.1); ALBUMIN 2.7 g/dL (3.5-5.0); CALCIUM 6.8 mg/dL (8.4-10.2); MAGNESIUM 1.8 MG/DL (1.6-2.3)
[2017-04-06] MEDS: Pantoprazole 40 mg EC Tab PO SCH (08:51)
[2017-04-06] MEDS: Sevelamer Carb 0.8 gm/Packet PO SCH ×3 (08:52→16:28)
[2017-04-06] MEDS: methylPREDNISolone 80 MG in Sodium Chloride 0.9% 50 ML IVPB SCH ×2 (08:53→21:54)
--- NOTE | 2017-04-06 10:23 | CP.PCM.PN ---
Subjective - Date & Time of Evaluation Date of Evaluation: 04/06/17 Time of Evaluation: 10:21 - Subjective Subjective: note Cytoxan will be given Monday because they can not given tomorrow as i am told Objective - Vital Signs/Intake and Output Vital Signs (last 24 hours): Temp Pulse Resp BP Pulse Ox 97.4 F L 79 24 180/100 H 98 04/06/17 08:00 04/06/17 10:00 04/06/17 10:00 04/06/17 10:00 04/06/17 10:00 Intake and Output: 04/06/17 04/06/17 06:59 18:59 Intake Total 750 630 Output Total 480 Balance 270 630 - Medications Medications: Current Medications Amlodipine Besylate (Norvasc) 10 mg PO DAILY [facility] Last Admin: 04/06/17 08:58 Dose: 10 mg Aspirin (Aspirin Chewable) 81 mg PO DAILY [facility] Last Admin: 04/06/17 08:51 Dose: 81 mg Atorvastatin Calcium (Lipitor) 20 mg PO HS [facility] Last Admin: 04/05/17 21:56 Dose: 20 mg Carvedilol (Coreg) 3.125 mg PO Q12 [facility] Last Admin: 04/06/17 08:52 Dose: 3.125 mg Clonidine HCl (Catapres) 0.3 mg PO BID [facility] Last Admin: 04/06/17 08:51 Dose: 0.3 mg Clopidogrel Bisulfate (Plavix) 75 mg PO DAILY [facility] Last Admin: 04/06/17 08:52 Dose: 75 mg Famotidine (Pepcid) 20 mg IVPB ONCE ONE Stop: 04/10/17 10:15 Ferrous Sulfate (Feosol) 325 mg PO DAILY [facility] Last Admin: 04/06/17 08:52 Dose: 325 mg Heparin Sodium (Porcine) (Heparin) 5,000 units SC Q12 [facility] PRN Reason: Protocol Last Admin: 04/06/17 08:53 Dose: 5,000 units Hydralazine HCl (Apresoline) 20 mg PO TID [facility] Piperacillin Sod/Tazobactam (Sod 2.25 gm/ Sodium Chloride) 100 mls @ 100 mls/ hr IVPB Q8 [facility] Last Admin: 04/06/17 09:07 Dose: 100 mls/hr Methylprednisolone 80 mg/ (Sodium Chloride) 50 mls @ 100 mls/hr IVPB Q12 [facility] Last Admin: 04/06/17 08:53 Dose: 100 mls/hr Diphenhydramine HCl 25 mg/ (Sodium Chloride) 50.5 mls @ 101 mls/hr IVPB ONCE ONE Stop: 04/10/17 10:43 Cyclophosphamide 650 mg/ (Sodium Chloride) 250 mls @ 0 mls/hr IV ONCE ONE PRN Reason: Per Protocol Stop: 04/10/17 10:15 Dexamethasone 10 mg/ Sodium (Chloride) 51 mls @ 102 mls/hr IVPB ONCE ONE Stop: 04/10/17 10:43 Ondansetron HCl 16 mg/ Sodium (Chloride) 58 mls @ 116 mls/hr IVPB ONCE ONE Stop: 04/10/17 10:43 Nitroglycerin (Nitro-Bid 2% Oint) 1 inch TOP Q6H [facility] Last Admin: 04/06/17 06:31 Dose: 1 inch Pantoprazole Sodium (Protonix Ec Tab) 40 mg PO DAILY [facility] Last Admin: 04/06/17 08:51 Dose: 40 mg Fluticasone/Salmeterol (Advair Diskus 500/50) 1 puff IH Q12 [facility] Last Admin: 04/05/17 21:54 Dose: 1 puff Sevelamer Carbonate (Renvela) 0.8 gm PO TIDWM [facility] Last Admin: 04/06/17 08:52 Dose: 0.8 gm Sodium Bicarbonate (Sodium Bicarbonate Tab) 650 mg PO BID [facility] Last Admin: 04/05/17 16:25 Dose: 650 mg - Labs Labs: 04/06/17 05:00 04/06/17 05:00 APTT 55.3 SECONDS (23.3-32.5) H 04/04/17 04:35 Assessment and Plan (1) Acute on chronic renal failure Status: Acute (2) Acute systolic congestive heart failure Status: Acute
[2017-04-06] MEDS: Fluticasone-Salmeterol 500-50mcg Diskus IH SCH ×2 (12:05→21:37)
--- NOTE | 2017-04-06 14:26 | PN ---
DATE: 04/06/2017 The patient is still experiencing productive cough. He denies any chest pain. PHYSICAL EXAMINATION: VITAL SIGNS: Blood pressure 181/100, heart rate 85, temperature 97.9, respiration 31. HEENT: Pale conjunctivae. CHEST: Bilateral rhonchi. HEART: S1, S2 regular. EXTREMITIES: 1+ pitting edema. LABORATORIES: Hemoglobin and hematocrit 8.1 and 25.9. White count and platelet count are 11.3 and 2 06,000. Today's BUN and creatinine are 80 and 4.7. Potassium is within normal limits at 4.8. Gluco se is 128. ProBNP is 87,400. Yesterday's chest CT scan report: Large bilateral pleural effusion with compressive atelectasis and upper lobe infiltrate along with cardiomegaly and pericardial effusion. Correlate for CHF. ASSESSMENT: 1. Congestive heart failure, acute systolic. 2. End-stage renal disease, on hemodialysis. 3. Bilateral pleural effusion with compression atelectasis. 4. Non-ST elevation myocardial infarction. 5. Manual circumferential pleural effusion seen on the echocardiograph study, as per my own review, and it is not a large pericardial effusion. RECOMMENDATIONS: Continue hydralazine 20 mg t.i.d., aspirin 81 mg once a day, clonidine 0.____ mg tw ice a day, Coreg 3.125 mg twice a day. The patient was already started on cyclophosphamide intraveno usly. Continue Lasix 40 mg intravenously daily, heparin 5000 units q. 12 hours, Solu-Medrol 80 mg tw ice a day, Norvasc 10 mg once a day, Plavix 75 mg once a day. Case was discussed with Dr. Seb abraham. The patient is not a suitable candidate for invasive cardiac workup. Hi Miles MD cc: [id number] TT: 04/06/2017 14:25:05 Confirmation # [id number] Dictation # [id number] ashlyn
--- NOTE | 2017-04-06 15:30 | CP.CCUPN ---
CCU Subjective - Physician Review Subjective (Free Text): [employer]IST PROGRESS NOTE Patient examined, interim events reviewed: Awake, alert, responsive, ambulating to bathroom, Kathleen removed this AM, on nasal cannula oxygen with 98% SPO2. No overt distress, no new complaints. Afebrile, no fever spikes, BP trend levels remain high, 170-180s. HR 87, RR 25 , 98% SPO2 on NC. 24H I/O's= positive 2 liters. ROS: as above, no other pertinent negs or positives on 10 system review. PMFSH: all nursing and historical notes reviewed, no new pertinent data relevant to current problems. No other distress noted: EXAM- HEENT: no icterus, pupils equal and reactive NECK: no visible JVD, supple, carotids equal upstroke bilat/no bruits CHEST: decreased BS bases, no wheezes HEART: regular, distant, S1S2, no murmur audible, no rubs. ABD: soft, no increased distention, no focal tenderness, no HSM. BS hypoactive , EXT: Chronic bilat cellulitic skin changes; + LE Edema bilat; no peripheral/ digital cyanosis, no calf tenderness or palpable cords, distal pulses intact and symmetrical NEURO: no gross focal motor deficits SKIN: no rashes LABS: WBC= 11.3 HGB= 8.2 PLTs= 206K Na= 136 K= 4.8 HCO3= 20 BUN/Cr= 80/4.7 BS= 128 MAJOR PROBLEMS NOW: 1. Acute Resp Insuff 2 Pulm Edema 2. NSTEMI with decompensated Left CHF 3. Acute on CKD requiring Acute HD 4. Uncontrolled / Accelerated HTN 5. Chronic Disease Anemia PLAN: 1. Empiric Abx coverage noted. 2. Lasix PRN, otherwise HD and PRBCs as per Nephro. 3. Watch BP trends while on IV steroids. 4. Stable oxygenation for now on nasal cannula, hold BiPAP for now. 5. Stable for stepdown transfer bed.
[2017-04-06] MEDS ORDERED: Lidocaine 2% Jelly (Uro-Jet) TOP STA (17:00)
--- NOTE | 2017-04-06 18:00 | CT ---
PROCEDURE: CT Abdomen and Pelvis without intravenous contrast HISTORY: assess for extravasation of urine COMPARISON: None. TECHNIQUE: Unenhanced study. Neither oral nor intravenous contrast administered. Radiation dose: Total exam DLP = 1020.85 mGy-cm. This CT exam was performed using one or more of the following dose reduction techniques: Automated exposure control, adjustment of the mA and/or kV according to patient size, and/or use of iterative reconstruction technique. FINDINGS: LOWER THORAX: Bilateral pleural effusions similar to that seen on the prior CT of the thorax 04/04/2017. Stable small pericardial effusion. LIVER: Unremarkable. No gross lesion or ductal dilatation. GALLBLADDER AND BILE DUCTS: Contracted without gross abnormality. PANCREAS: Unremarkable. No gross lesion or ductal dilatation. SPLEEN: Unremarkable. ADRENALS: Unremarkable. No mass. KIDNEYS AND URETERS: Unremarkable. No hydronephrosis. No solid mass. VASCULATURE: Unremarkable. No aortic aneurysm. BOWEL: Unremarkable. No obstruction. No gross mural thickening. APPENDIX: No abnormalities to suggest acute appendicitis. No right lower quadrant inflammatory processes identified. PERITONEUM: Trace fluid in the pelvis mean Hounsfield unit values 20.4. LYMPH NODES: Unremarkable. No enlarged lymph nodes. BLADDER: Small capacitance bladder. No focal bladder abnormalities. REPRODUCTIVE: Unremarkable. BONES: No acute fracture. OTHER FINDINGS: Severe anasarca, IMPRESSION: Small collection of fluid in the pelvis. It is not likely that this represents fluid, urinoma. The retrograde study would be more sensitive and specific if trauma to the urinary bladder and extravasation is suspected. Unremarkable appearance of the urinary bladder. No focal or diffuse findings. Severe diffuse anasarca.
--- NOTE | 2017-04-06 18:31 | CP.PCM.PN ---
Addendum entered and electronically signed by Aaliyah Knott MD 15:43: Late entry pt seen 04/06 by me I saw and evaluated the patient. I discussed the case with the resident and agree with the findings and plan as documented in the resident's note. pt to leave ICU. Order to remove kunz Addendum entered and electronically signed by Thu Chapman MD 04/07/17 15:28 : I saw and evaluated the patient. I discussed the case with the resident and agree with the findings and plan as documented in the resident's note. For HD tomorrow. Original Note: Subjective - Date & Time of Evaluation Date of Evaluation: 04/06/17 Time of Evaluation: 08:00 - Subjective Subjective: Patient seen and examined at bedside, laying in bed comfortably, reports he still feels mild SOB. Kunz catheter in place draining clear yellow urine. Tolerating PO diet. Has complaint of penile discomfort due to the kunz, everytime he moves. No other concerns or complaints at this time. Objective - Vital Signs/Intake and Output Vital Signs (last 24 hours): Temp Pulse Resp BP Pulse Ox 98.2 F 87 26 H 150/92 H 100 04/06/17 16:00 04/06/17 16:29 04/06/17 16:00 04/06/17 16:29 04/06/17 16:00 Intake and Output: 04/06/17 04/06/17 06:59 18:59 Intake Total 750 1450 Output Total 480 250 Balance 270 1200 - Medications Medications: Current Medications Amlodipine Besylate (Norvasc) 10 mg PO DAILY [facility] Last Admin: 04/06/17 08:58 Dose: 10 mg Aspirin (Aspirin Chewable) 81 mg PO DAILY [facility] Last Admin: 04/06/17 08:51 Dose: 81 mg Atorvastatin Calcium (Lipitor) 20 mg PO HS [facility] Last Admin: 04/05/17 21:56 Dose: 20 mg Carvedilol (Coreg) 3.125 mg PO Q12 [facility] Last Admin: 04/06/17 08:52 Dose: 3.125 mg Clonidine HCl (Catapres) 0.3 mg PO BID [facility] Last Admin: 04/06/17 16:28 Dose: 0.3 mg Clopidogrel Bisulfate (Plavix) 75 mg PO DAILY [facility] Last Admin: 04/06/17 08:52 Dose: 75 mg Famotidine (Pepcid) 20 mg IVPB ONCE ONE Stop: 04/10/17 10:15 Ferrous Sulfate (Feosol) 325 mg PO DAILY [facility] Last Admin: 04/06/17 08:52 Dose: 325 mg Furosemide (Lasix) 60 mg IVP DAILY [facility] Last Admin: 04/06/17 13:50 Dose: 60 mg Guaifenesin/Dextromethorphan (Robitussin Dm) 10 ml PO Q4 PRN PRN Reason: Cough Heparin Sodium (Porcine) (Heparin) 5,000 units SC Q12 [facility] PRN Reason: Protocol Last Admin: 04/06/17 08:53 Dose: 5,000 units Hydralazine HCl (Apresoline) 20 mg PO TID [facility] Last Admin: 04/06/17 16:29 Dose: 20 mg Piperacillin Sod/Tazobactam (Sod 2.25 gm/ Sodium Chloride) 100 mls @ 100 mls/ hr IVPB Q8 [facility] Last Admin: 04/06/17 16:26 Dose: 100 mls/hr Methylprednisolone 80 mg/ (Sodium Chloride) 50 mls @ 100 mls/hr IVPB Q12 [facility] Last Admin: 04/06/17 08:53 Dose: 100 mls/hr Diphenhydramine HCl 25 mg/ (Sodium Chloride) 50.5 mls @ 101 mls/hr IVPB ONCE ONE Stop: 04/10/17 10:43 Cyclophosphamide 650 mg/ (Sodium Chloride) 250 mls @ 0 mls/hr IV ONCE ONE PRN Reason: Per Protocol Stop: 04/10/17 10:15 Dexamethasone 10 mg/ Sodium (Chloride) 51 mls @ 102 mls/hr IVPB ONCE ONE Stop: 04/10/17 10:43 Ondansetron HCl 16 mg/ Sodium (Chloride) 58 mls @ 116 mls/hr IVPB ONCE ONE Stop: 04/10/17 10:43 Nitroglycerin (Nitro-Bid 2% Oint) 1 inch TOP Q6H [facility] Last Admin: 04/06/17 12:06 Dose: 1 inch Pantoprazole Sodium (Protonix Ec Tab) 40 mg PO DAILY [facility] Last Admin: 04/06/17 08:51 Dose: 40 mg Fluticasone/Salmeterol (Advair Diskus 500/50) 1 puff IH Q12 [facility] Last Admin: 04/06/17 12:05 Dose: 1 puff Sevelamer Carbonate (Renvela) 0.8 gm PO TIDWM [facility] Last Admin: 04/06/17 16:28 Dose: 0.8 gm Sodium Bicarbonate (Sodium Bicarbonate Tab) 650 mg PO BID [facility] Last Admin: 04/06/17 16:27 Dose: 650 mg Spironolactone (Aldactone) 50 mg PO DAILY [facility] - Labs Labs: 04/06/17 05:00 04/06/17 05:00 APTT 55.3 SECONDS (23.3-32.5) H 04/04/17 04:35 - Constitutional Appears: No Acute Distress - Head Exam Head Exam: ATRAUMATIC, NORMOCEPHALIC - Eye Exam Eye Exam: EOMI - ENT Exam ENT Exam: Mucous Membranes Moist - Neck Exam Neck Exam: Full ROM - Respiratory Exam Respiratory Exam: Rhonchi (mild, diffuse, saturating 96% O2 on 4L nasal cannula) - Cardiovascular Exam Cardiovascular Exam: +S1, +S2. 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 Patient was found to have NSTEMI. He received hemodialysis + 2 units pRBC's for first time on 04/04/17. Blood culture negative x 3 days, Urine culture negative. Patient scheduled for hemodialysis + 1 unit pRBC's today. Echo 04/02/17: Systolic CHF with LVEF 30-35%. 1. Respiratory Distress -Improving, O2 saturation 96% on 4L nasal cannula -Likely 2dary to acute CHF Exacerbation vs NSTEMI vs acute on CKD vs multifocal PNA -CXR 04/03/17: multifocal hazy opacities increased bilaterally in lungs compared to prior CXR, left sided pleural effusion, dx includes edema,hemorrhage, multifocal PNA -CT Chest 04/04/17: Large bilateral pleural effusions, compressive atelectasis and upper lobe infiltrates, cardiomegaly, pericardial effusion-correlate for CHF -ID consult appreciated, Dr. Silver, due to recent hospitalization and multiple antibiotic treatment in the previous admissions -Solumedrol 80 mg IVPB Q12 -Zosyn 2.25mg IVPB Q8 2. 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 NSTEMI -stable, ICU monitoring -Continue with aspirin 81 mg daily, Plavix 75 mg daily, Coreg 3.125mg PO Q12, Heparin 5,000 units SC BID -Not a good candidate for MAN inhibitor due to impaired renal function -Troponin elevated (serial measurement :0.285, 0.549, 0.384, 0.326) -Cardiology on board, f/u recommendations 4. Systolic CHF with Acute Exacerbation -Echo 04/02/17: LVEF 30-35%, with generalized moderate hypokinesia particularly pronounced in the septum -Cardio consult appreciated Dr. Miles: patient is not a suitable candidate for invasive cardiac workup, recommend continue with Coreg 3.125mg Q12, SC Heparin 5,000 units BID, Lipitor, Solumedrol, Zosyn 2.25mg IV Q8, Plavix 75mg QD -Lasix 60mg IVPB QD -ProBNP: improved to 87,400 (04/05/17) from 167,000 (04/02/17) -Not a good candidate for MAN-i or Aldactone due to impaired renal function -Strict I/Os. Daily weights. 5. 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 Hx of RUE DVT -RUE DVT detected on 02/04/17 however patient was not a good candidate for retirement anticoagulation -D-dimer also elevated at admission but of undetermined significance -B/L upper extremities US showed partial compression of the right basilic vein, possible due to a chronic thrombus -B/L lower extremities US showed no evidence of DVT -Discontinued Heparin drip ( for therapeutic management of ACS), was stopped because dropped in H/H -continue anticoagulation as above 7. HTN -uncontrolled, likely due to medication non-adherence and worsening renal function -Cardio consult appreciated Dr. Miles: continue with Hydralazine, Clonidine , Norvasc -Hydralazine increased to 20 mg TID 8. DVT Prophylaxis -SCDs -Heparin 5000 units SC BID
[2017-04-07] MEDS: Nitroglycerin 2% 15 INCH/30 GM TUBE TOP SCH ×4 (01:55→20:26)
[2017-04-07 06:53] LABS: HEMOGLOBIN 9.5 g/dL (12.0-18.0); MEAN CELL VOLUME 87.2 fl (80.0-94.0); MEAN CORPUSCULAR HEMOGLOBIN 28.9 pg (27.0-31.0); MEAN CORPUSCULAR HGB CONC 33.1 g/dL (33.0-37.0); RBC 3.28 Mil/uL (4.40-5.90); RED CELL DISTRIBUTION WIDTH 17.5 % (11.5-14.5); WHITE BLOOD COUNT 11.2 K/uL (4.8-10.8)
[2017-04-07 07:33] LABS: ALB/GLOB RATIO 0.9 (1.0-2.1); ALBUMIN 2.7 g/dL (3.5-5.0); CALCIUM 7.5 mg/dL (8.4-10.2)
[2017-04-07] MEDS: Fluticasone-Salmeterol 500-50mcg Diskus IH SCH ×2 (09:14→20:26)
[2017-04-07] MEDS: Pantoprazole 40 mg EC Tab PO SCH (09:20)
[2017-04-07] MEDS: Sevelamer Carb 0.8 gm/Packet PO SCH ×3 (09:20→17:55)
[2017-04-07] MEDS: methylPREDNISolone 80 MG in Sodium Chloride 0.9% 50 ML IVPB SCH ×2 (09:21→20:30)
--- NOTE | 2017-04-07 11:57 | CP.PCM.PN ---
Subjective - Date & Time of Evaluation Date of Evaluation: 04/07/17 Time of Evaluation: 11:54 - Subjective Subjective: Patient continued to improve less shortness of breath less edema Patient scheduled for Cytoxan treatment for Monday Patient scheduled for hemodialysis for tomorrow to be continue for now and continue to observe kidney function The case discussed with the primary team and intensive care unit. Again acute renal failure superimposed on chronic kidney disease related Vasculitis as noted in my previous note Continue current management Objective - Vital Signs/Intake and Output Vital Signs (last 24 hours): Temp Pulse Resp BP Pulse Ox 97.7 F 77 22 180/100 H 96 04/07/17 07:43 04/07/17 09:19 04/07/17 07:43 04/07/17 09:19 04/07/17 07:43 Intake and Output: 04/07/17 04/07/17 06:59 18:59 Intake Total 300 Output Total 160 Balance 140 - Medications Medications: Current Medications Amlodipine Besylate (Norvasc) 10 mg PO DAILY [facility] Last Admin: 04/07/17 09:19 Dose: 10 mg Aspirin (Aspirin Chewable) 81 mg PO DAILY [facility] Last Admin: 04/07/17 09:16 Dose: 81 mg Atorvastatin Calcium (Lipitor) 20 mg PO HS [facility] Last Admin: 04/06/17 21:41 Dose: 20 mg Carvedilol (Coreg) 3.125 mg PO Q12 [facility] Last Admin: 04/07/17 09:17 Dose: 3.125 mg Clonidine HCl (Catapres) 0.3 mg PO BID [facility] Last Admin: 04/07/17 09:17 Dose: 0.3 mg Clopidogrel Bisulfate (Plavix) 75 mg PO DAILY [facility] Last Admin: 04/07/17 09:20 Dose: 75 mg Famotidine (Pepcid) 20 mg IVPB ONCE ONE Stop: 04/10/17 10:15 Ferrous Sulfate (Feosol) 325 mg PO DAILY [facility] Last Admin: 04/07/17 09:18 Dose: 325 mg Furosemide (Lasix) 60 mg IVP DAILY [facility] Last Admin: 04/07/17 09:19 Dose: 60 mg Guaifenesin/Dextromethorphan (Robitussin Dm) 10 ml PO Q4 PRN PRN Reason: Cough Heparin Sodium (Porcine) (Heparin) 5,000 units SC Q12 [facility] PRN Reason: Protocol Last Admin: 04/07/17 09:18 Dose: 5,000 units Hydralazine HCl (Apresoline) 20 mg PO TID [facility] Last Admin: 04/07/17 09:15 Dose: 20 mg Piperacillin Sod/Tazobactam (Sod 2.25 gm/ Sodium Chloride) 100 mls @ 100 mls/ hr IVPB Q8 [facility] Last Admin: 04/07/17 09:21 Dose: 100 mls/hr Methylprednisolone 80 mg/ (Sodium Chloride) 50 mls @ 100 mls/hr IVPB Q12 [facility] Last Admin: 04/07/17 09:21 Dose: 100 mls/hr Diphenhydramine HCl 25 mg/ (Sodium Chloride) 50.5 mls @ 101 mls/hr IVPB ONCE ONE Stop: 04/10/17 10:43 Cyclophosphamide 650 mg/ (Sodium Chloride) 250 mls @ 0 mls/hr IV ONCE ONE PRN Reason: Per Protocol Stop: 04/10/17 10:15 Dexamethasone 10 mg/ Sodium (Chloride) 51 mls @ 102 mls/hr IVPB ONCE ONE Stop: 04/10/17 10:43 Ondansetron HCl 16 mg/ Sodium (Chloride) 58 mls @ 116 mls/hr IVPB ONCE ONE Stop: 04/10/17 10:43 Nitroglycerin (Nitro-Bid 2% Oint) 1 inch TOP Q6H [facility] Last Admin: 04/07/17 07:10 Dose: 1 inch Pantoprazole Sodium (Protonix Ec Tab) 40 mg PO DAILY [facility] Last Admin: 04/07/17 09:20 Dose: 40 mg Fluticasone/Salmeterol (Advair Diskus 500/50) 1 puff IH Q12 [facility] Last Admin: 04/07/17 09:14 Dose: 1 puff Sevelamer Carbonate (Renvela) 0.8 gm PO TIDWM [facility] Last Admin: 04/07/17 09:20 Dose: 0.8 gm Sodium Bicarbonate (Sodium Bicarbonate Tab) 650 mg PO BID [facility] Last Admin: 04/07/17 09:20 Dose: 650 mg Spironolactone (Aldactone) 50 mg PO DAILY [facility] Last Admin: 04/07/17 09:15 Dose: 50 mg - Labs Labs: 04/07/17 04:30 04/07/17 04:30 APTT 55.3 SECONDS (23.3-32.5) H 04/04/17 04:35 Assessment and Plan (1) Acute on chronic renal failure Status: Acute (2) Acute systolic congestive heart failure Status: Acute
--- NOTE | 2017-04-07 14:23 | PN ---
DATE: 04/07/2017 The patient denies chest pain. He is experiencing productive cough. PHYSICAL EXAMINATION: VITAL SIGNS: Blood pressure 155/92, heart rate 81, temperature 97.5, respirations 18. HEENT: Pale conjunctivae. CHEST: Bibasal rhonchi. HEART: S1, S2 regular. EXTREMITIES: 2+ pitting edema. LABORATORIES: Hemoglobin and hematocrit 9.7 and 28.7. White count and platelet count are 11.1 and 2 03,000. Today's BUN and creatinine are 54 and 3.3, glucose 131. ASSESSMENT: 1. Acute systolic heart failure. 2. Consider non-ST elevation myocardial infarction. 3. Advanced renal insufficiency, requiring hemodialysis. 4. Anemia. 5. Evidence of atrial tachycardia on the cardiac monitor technician. RECOMMENDATIONS: Continue current IV cyclophosphamide and dexamethasone. Continue heparin 5000 unit s subcutaneous twice a day, Lasix 40 mg intravenous once a day, Lipitor 20 mg once a day, Coreg 3.125 mg twice a day. I recommend discontinuation of Aldactone. Increase hydralazine to 50 mg t.i.d. Hi Miles MD cc: [id number] TT: 04/07/2017 14:23:40 Confirmation # [id number] Dictation # [id number] tn
--- NOTE | 2017-04-07 20:31 | CP.PCM.PN ---
Subjective - Date & Time of Evaluation Date of Evaluation: 04/07/17 Time of Evaluation: 08:25 - Subjective Subjective: Patient sitting in bed comfortably, on 4L O2 via nasal cannula with normal O2 saturation. Reports voiding small amounts of urine and ambulating to the bathroom without difficulty. Feels SOB has improved. Tolerating PO diet, has no concerns or complaint at this time. Objective - Vital Signs/Intake and Output Vital Signs (last 24 hours): Temp Pulse Resp BP Pulse Ox 98.1 F 90 18 178/87 H 100 04/07/17 16:00 04/07/17 17:54 04/07/17 16:00 04/07/17 17:54 04/07/17 16:00 - Medications Medications: Current Medications Amlodipine Besylate (Norvasc) 10 mg PO DAILY [facility] Last Admin: 04/07/17 09:19 Dose: 10 mg Aspirin (Aspirin Chewable) 81 mg PO DAILY [facility] Last Admin: 04/07/17 09:16 Dose: 81 mg Atorvastatin Calcium (Lipitor) 20 mg PO HS [facility] Last Admin: 04/06/17 21:41 Dose: 20 mg Carvedilol (Coreg) 3.125 mg PO Q12 [facility] Last Admin: 04/07/17 09:17 Dose: 3.125 mg Clonidine HCl (Catapres) 0.3 mg PO BID [facility] Last Admin: 04/07/17 17:54 Dose: 0.3 mg Clopidogrel Bisulfate (Plavix) 75 mg PO DAILY [facility] Last Admin: 04/07/17 09:20 Dose: 75 mg Famotidine (Pepcid) 20 mg IVPB ONCE ONE Stop: 04/10/17 10:15 Ferrous Sulfate (Feosol) 325 mg PO DAILY [facility] Last Admin: 04/07/17 09:18 Dose: 325 mg Furosemide (Lasix) 40 mg IVP DAILY [facility] Guaifenesin/Dextromethorphan (Robitussin Dm) 10 ml PO Q4 PRN PRN Reason: Cough Heparin Sodium (Porcine) (Heparin) 5,000 units SC Q12 [facility] PRN Reason: Protocol Last Admin: 04/07/17 09:18 Dose: 5,000 units Hydralazine HCl (Apresoline) 50 mg PO TID [facility] Last Admin: 04/07/17 17:53 Dose: 50 mg Piperacillin Sod/Tazobactam (Sod 2.25 gm/ Sodium Chloride) 100 mls @ 100 mls/ hr IVPB Q8 [facility] Last Admin: 04/07/17 17:56 Dose: 100 mls/hr Methylprednisolone 80 mg/ (Sodium Chloride) 50 mls @ 100 mls/hr IVPB Q12 [facility] Last Admin: 04/07/17 09:21 Dose: 100 mls/hr Diphenhydramine HCl 25 mg/ (Sodium Chloride) 50.5 mls @ 101 mls/hr IVPB ONCE ONE Stop: 04/10/17 10:43 Cyclophosphamide 650 mg/ (Sodium Chloride) 250 mls @ 0 mls/hr IV ONCE ONE PRN Reason: Per Protocol Stop: 04/10/17 10:15 Dexamethasone 10 mg/ Sodium (Chloride) 51 mls @ 102 mls/hr IVPB ONCE ONE Stop: 04/10/17 10:43 Ondansetron HCl 16 mg/ Sodium (Chloride) 58 mls @ 116 mls/hr IVPB ONCE ONE Stop: 04/10/17 10:43 Nitroglycerin (Nitro-Bid 2% Oint) 1 inch TOP Q6H [facility] Last Admin: 04/07/17 20:26 Dose: 1 inch Pantoprazole Sodium (Protonix Ec Tab) 40 mg PO DAILY [facility] Last Admin: 04/07/17 09:20 Dose: 40 mg Fluticasone/Salmeterol (Advair Diskus 500/50) 1 puff IH Q12 [facility] Last Admin: 04/07/17 20:26 Dose: 1 puff Sevelamer Carbonate (Renvela) 0.8 gm PO TIDWM [facility] Last Admin: 04/07/17 17:55 Dose: 0.8 gm Sodium Bicarbonate (Sodium Bicarbonate Tab) 650 mg PO BID [facility] Last Admin: 04/07/17 17:56 Dose: 650 mg Spironolactone (Aldactone) 50 mg PO DAILY [facility] - Labs Labs: 04/07/17 04:30 04/07/17 04:30 APTT 55.3 SECONDS (23.3-32.5) H 04/04/17 04:35 - Constitutional Appears: Well, Non-toxic - Head Exam Head Exam: ATRAUMATIC, NORMOCEPHALIC - Eye Exam Eye Exam: EOMI, PERRL - ENT Exam ENT Exam: Mucous Membranes Moist - Neck Exam Neck Exam: Full ROM. absent: Lymphadenopathy - Respiratory Exam Respiratory Exam: Rhonchi (minimal bilateral lower lobe). absent: Accessory Muscle Use (on 4L O2 via nasal cannula) - Cardiovascular Exam Cardiovascular Exam: +S1, +S2. absent: Gallop, Rubs - Exam Exam: absent: Scrotal Swelling (penile swelling improved, non tender) - Extremities Exam Extremities Exam: Full ROM, Pedal Edema (+1 pitting, bilateral). 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 Patient was found to have NSTEMI. He received hemodialysis + 2 units pRBC's for first time on 04/04/17. Blood culture negative x 3 days, Urine culture negative. 2nd session of hemodialysis + 1 unit pRBC's on 04/06/17 . Echo 04/02/17: Systolic CHF with LVEF 30-35%. 1. Respiratory Distress -Improving, O2 saturation 98% on 4L nasal cannula -Likely 2dary to acute CHF Exacerbation vs NSTEMI vs acute on CKD vs multifocal PNA -CXR 04/03/17: multifocal hazy opacities increased bilaterally in lungs compared to prior CXR, left sided pleural effusion, dx includes edema,hemorrhage, multifocal PNA -CT Chest 04/04/17: Large bilateral pleural effusions, compressive atelectasis and upper lobe infiltrates, cardiomegaly, pericardial effusion-correlate for CHF -ID consult appreciated, Dr. Silver, due to recent hospitalization and multiple antibiotic treatment in the previous admissions -Solumedrol 80 mg IVPB Q12 -Zosyn 2.25mg IVPB Q8 2. 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 NSTEMI -stable, ICU monitoring -Continue with aspirin 81 mg daily, Plavix 75 mg daily, Coreg 3.125mg PO Q12, Heparin 5,000 units SC BID -Not a good candidate for MAN inhibitor due to impaired renal function -Troponin elevated (serial measurement :0.285, 0.549, 0.384, 0.326) -Cardiology on board, f/u recommendations 4. Systolic CHF with Acute Exacerbation -Echo 04/02/17: LVEF 30-35%, with generalized moderate hypokinesia particularly pronounced in the septum -Cardio consult appreciated Dr. Miles: patient is not a suitable candidate for invasive cardiac workup, recommend continue with Coreg 3.125mg Q12, SC Heparin 5,000 units BID, Lipitor 20 mg PO QD, Solumedrol, Zosyn 2.25mg IV Q8, Plavix 75mg QD -Lasix 40mg IVPB QD -ProBNP: improved to 87,400 (04/05/17) from 167,000 (04/02/17) -Not a good candidate for MAN-i or Aldactone due to impaired renal function -Strict I/Os. Daily weights. 5. 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 pt voiding small amounts and on HD 6. Hx of RUE DVT -RUE DVT detected on 02/04/17 however patient was not a good candidate for middle or intermediate [employer] principal anticoagulation -D-dimer also elevated at admission but of undetermined significance -B/L upper extremities US showed partial compression of the right basilic vein, possible due to a chronic thrombus -B/L lower extremities US showed no evidence of DVT -Discontinued Heparin drip ( for therapeutic management of ACS), was stopped because dropped in H/H -continue anticoagulation as above 7. HTN -uncontrolled, likely due to medication non-adherence and worsening renal function -Cardio consult appreciated Dr. Miles: continue with Hydralazine, Clonidine , Norvasc -Hydralazine increased to 50 mg TID -Aladactone 50mg PO daily 8. DVT Prophylaxis -SCDs -Heparin 5000 units SC BID
[2017-04-08] MEDS: Nitroglycerin 2% 15 INCH/30 GM TUBE TOP SCH ×4 (00:18→18:09)
[2017-04-08 06:56] LABS: HEMOGLOBIN 9.7 g/dL (12.0-18.0); MEAN CELL VOLUME 89.3 fl (80.0-94.0); MEAN CORPUSCULAR HEMOGLOBIN 28.3 pg (27.0-31.0); MEAN CORPUSCULAR HGB CONC 31.7 g/dL (33.0-37.0); RBC 3.44 Mil/uL (4.40-5.90); RED CELL DISTRIBUTION WIDTH 17.7 % (11.5-14.5)
--- NOTE | 2017-04-08 06:58 | CP.PCM.PN ---
Subjective - Date & Time of Evaluation Date of Evaluation: 04/08/17 Time of Evaluation: 06:58 - Subjective Subjective: Patient was seen and examined at bedside this morning. Patient appears no acute distress however appears very anxious about dialysis. Patient was getting hemodialysis this morning. Patient also complaints of swelling of penis. Denies fever, chills, SOB, chest pain, N/V/D, headache and dizziness. Objective - Vital Signs/Intake and Output Vital Signs (last 24 hours): Temp Pulse Resp BP Pulse Ox 97.9 F 79 17 142/71 100 04/08/17 04:00 04/08/17 06:00 04/08/17 06:00 04/08/17 06:00 04/08/17 06:00 Intake and Output: 04/07/17 04/08/17 18:59 06:59 Intake Total 780 Output Total 100 Balance 680 - Medications Medications: Current Medications Amlodipine Besylate (Norvasc) 10 mg PO DAILY [facility] Last Admin: 04/07/17 09:19 Dose: 10 mg Aspirin (Aspirin Chewable) 81 mg PO DAILY [facility] Last Admin: 04/07/17 09:16 Dose: 81 mg Atorvastatin Calcium (Lipitor) 20 mg PO HS [facility] Last Admin: 04/07/17 21:20 Dose: 20 mg Carvedilol (Coreg) 3.125 mg PO Q12 [facility] Last Admin: 04/07/17 20:27 Dose: 3.125 mg Clonidine HCl (Catapres) 0.3 mg PO BID [facility] Last Admin: 04/07/17 17:54 Dose: 0.3 mg Clopidogrel Bisulfate (Plavix) 75 mg PO DAILY [facility] Last Admin: 04/07/17 09:20 Dose: 75 mg Famotidine (Pepcid) 20 mg IVPB ONCE ONE Stop: 04/10/17 10:15 Ferrous Sulfate (Feosol) 325 mg PO DAILY [facility] Last Admin: 04/07/17 09:18 Dose: 325 mg Furosemide (Lasix) 40 mg IVP DAILY [facility] Guaifenesin/Dextromethorphan (Robitussin Dm) 10 ml PO Q4 PRN PRN Reason: Cough Heparin Sodium (Porcine) (Heparin) 5,000 units SC Q12 [facility] PRN Reason: Protocol Last Admin: 04/07/17 20:30 Dose: 5,000 units Hydralazine HCl (Apresoline) 50 mg PO TID [facility] Last Admin: 04/07/17 17:53 Dose: 50 mg Piperacillin Sod/Tazobactam (Sod 2.25 gm/ Sodium Chloride) 100 mls @ 100 mls/ hr IVPB Q8 [facility] Last Admin: 04/08/17 00:19 Dose: 100 mls/hr Methylprednisolone 80 mg/ (Sodium Chloride) 50 mls @ 100 mls/hr IVPB Q12 [facility] Last Admin: 04/07/17 20:30 Dose: 100 mls/hr Diphenhydramine HCl 25 mg/ (Sodium Chloride) 50.5 mls @ 101 mls/hr IVPB ONCE ONE Stop: 04/10/17 10:43 Cyclophosphamide 650 mg/ (Sodium Chloride) 250 mls @ 0 mls/hr IV ONCE ONE PRN Reason: Per Protocol Stop: 04/10/17 10:15 Dexamethasone 10 mg/ Sodium (Chloride) 51 mls @ 102 mls/hr IVPB ONCE ONE Stop: 04/10/17 10:43 Ondansetron HCl 16 mg/ Sodium (Chloride) 58 mls @ 116 mls/hr IVPB ONCE ONE Stop: 04/10/17 10:43 Nitroglycerin (Nitro-Bid 2% Oint) 1 inch TOP Q6H [facility] Last Admin: 04/08/17 00:18 Dose: 1 inch Pantoprazole Sodium (Protonix Ec Tab) 40 mg PO DAILY [facility] Last Admin: 04/07/17 09:20 Dose: 40 mg Fluticasone/Salmeterol (Advair Diskus 500/50) 1 puff IH Q12 [facility] Last Admin: 04/07/17 20:26 Dose: 1 puff Sevelamer Carbonate (Renvela) 0.8 gm PO TIDWM [facility] Last Admin: 04/07/17 17:55 Dose: 0.8 gm Sodium Bicarbonate (Sodium Bicarbonate Tab) 650 mg PO BID [facility] Last Admin: 04/07/17 17:56 Dose: 650 mg Spironolactone (Aldactone) 50 mg PO DAILY [facility] - Labs Labs: 04/07/17 04:30 04/07/17 04:30 APTT 55.3 SECONDS (23.3-32.5) H 04/04/17 04:35 - Constitutional Appears: Non-toxic, No Acute Distress - Head Exam Head Exam: ATRAUMATIC, NORMAL INSPECTION - Eye Exam Eye Exam: EOMI, Normal appearance Pupil Exam: NORMAL ACCOMODATION - ENT Exam ENT Exam: Mucous Membranes Moist, Normal Exam - Neck Exam Neck Exam: Full ROM Additional comments: HD catheter placement right IJV - Respiratory Exam Additional comments: Rhonchi (minimal bilateral lower lobe), 4L O2 via nasal cannula - Cardiovascular Exam Cardiovascular Exam: REGULAR RHYTHM, RRR, +S1, +S2 Additional comments: picc placement on right basilic vein. - GI/Abdominal Exam GI & Abdominal Exam: Distended. 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 . Echo 04/02/17: Systolic CHF with LVEF 30-35%. Plan: 1. Urinary retention and penile edema -kunz was removed due to patient's discomfort -still able to void -urology consulted 2. Diffse Anasarca -CT of abdomen and pelvis showed Small collection of fluid in the pelvis. It is not likely that this represents fluid, urinoma. The retrograde study would be more sensitive and specific if trauma to the urinary bladder and extravasation is suspected.Unremarkable appearance of the urinary bladder. No focal or diffuse findings. Severe diffuse anasarca. -continue with lasix and aldactone -monitor bmp closely 3.Respiratory Distress -Improving, O2 saturation 98% on 4L nasal cannula -Likely 2dary to acute CHF Exacerbation vs NSTEMI vs acute on CKD vs multifocal PNA -ID consult appreciated, Dr. Silver, due to recent hospitalization and multiple antibiotic treatment in the previous admissions -Solumedrol 80 mg IVPB Q12 -Zosyn 2.25mg IVPB Q8 4. 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 NSTEMI -stable -Continue with aspirin 81 mg daily, Plavix 75 mg daily, Coreg 3.125mg PO Q12, Heparin 5,000 units SC BID -Not a good candidate for MAN inhibitor due to impaired renal function -Cardiology on board, f/u recommendations 6. Systolic CHF with Acute Exacerbation -Echo 04/02/17: LVEF 30-35%, with generalized moderate hypokinesia particularly pronounced in the septum -Cardio consult appreciated Dr. Miles: patient is not a suitable candidate for invasive cardiac workup -Lasix 40mg IVPB QD -aldactone 50mg PO daily -Strict I/Os. Daily weights. 7. 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 pt voiding small amounts and on HD 8. HTN -uncontrolled, likely due to medication non-adherence and worsening renal function -Cardio consult appreciated Dr. Miles: continue with Hydralazine, Clonidine , Norvasc -Hydralazine increased to 50 mg TID -Aladactone 50mg PO daily 9. DVT Prophylaxis -hx of dvt -SCDs -Heparin 5000 units SC
[2017-04-08 07:29] LABS: CALCIUM 7.3 mg/dL (8.4-10.2)
[2017-04-08] MEDS: Fluticasone-Salmeterol 500-50mcg Diskus IH SCH ×2 (08:24→20:28)
[2017-04-08] MEDS: Pantoprazole 40 mg EC Tab PO SCH (08:25)
[2017-04-08] MEDS: Sevelamer Carb 0.8 gm/Packet PO SCH ×3 (08:26→16:22)
[2017-04-08] MEDS: methylPREDNISolone 80 MG in Sodium Chloride 0.9% 50 ML IVPB SCH ×2 (08:33→20:27)
[2017-04-08] MEDS ORDERED: Metoprolol 1 mg/ml Inj IVP ONE (13:02)
--- NOTE | 2017-04-08 19:07 | CP.PCM.PN ---
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 Will plan for dialysis monday. Continue with Nephrovite 1 tab/day. PRBC as needed for anemia. On MARCELINA as epogen added, last Hb 9.7. check TSAT and Ferritin. consider heme eval as with monoclonal protein IgG kappa Continue with phos binders but increased to 1600 mg TID , last phos level 7.7 supplement with Vit d weekly BP control with meds as ordered. Patient on RAAS noel as with Aldactone Glycemic control, Dialysis consistent diet Further work up/management as per primary team Dose meds/antibiotics (if needed) for GFR <10 status. Avoid fleets enema/ magnesium based laxatives. pt planned for cytoxan on monday as per Dr Sandoval Thanks for allowing me to participate in care of your patient. Will follow patient with you. Please call if any Qs Dr Darren Samano Office: [phone] Subjective: Noted events overnight. Patients feels okay. Denies chest pain, palpitation. Improved shortness of breath, leg swelling. No urinary complaints, says not much urine Physical Examination: General Appearance: Comfortable, in no acute respiratory distress, co- operative. Vitals reviewed and noted as below Lungs: Normal respiratory rate/effort. Breath sounds bilateral equal and basal crackles Heart: Normal rate. s1s2 normal. No rub or gallop. Extremities: 1-2+ edema. Neurological: Patient is alert, awake and oriented to person, place and time. No focal deficit. Strength bilateral appropriate and equal Skin: Warm and dry. Normal turgor. No rash. Palpitation: Normal elasticity for age Abdomen: Abdomen is soft. Bowel sounds +. There is no abdominal tenderness, no guarding/rigidity or organomegaly : kidney or bladder not palpable Access: catheter Labs/imaging reviewed. Past medical history, past surgical history, family history, social history, allergy reviewed Objective - Vital Signs/Intake and Output Vital Signs (last 24 hours): Temp Pulse Resp BP Pulse Ox 97.9 F 81 21 136/87 98 04/08/17 16:00 04/08/17 18:00 04/08/17 18:00 04/08/17 18:00 04/08/17 18:00 Intake and Output: 04/08/17 04/09/17 18:59 06:59 Intake Total 1790 Output Total 3000 Balance -1210 - Medications Medications: Current Medications Amlodipine Besylate (Norvasc) 10 mg PO DAILY [facility] Last Admin: 04/08/17 08:25 Dose: 10 mg Aspirin (Aspirin Chewable) 81 mg PO DAILY [facility] Last Admin: 04/08/17 08:25 Dose: 81 mg Atorvastatin Calcium (Lipitor) 20 mg PO HS [facility] Last Admin: 04/07/17 21:20 Dose: 20 mg Carvedilol (Coreg) 3.125 mg PO Q12 [facility] Last Admin: 04/08/17 12:26 Dose: 3.125 mg Clonidine HCl (Catapres) 0.3 mg PO BID [facility] Last Admin: 04/08/17 16:21 Dose: 0.3 mg Clopidogrel Bisulfate (Plavix) 75 mg PO DAILY [facility] Last Admin: 04/08/17 08:25 Dose: 75 mg Ergocalciferol (Drisdol 50,000 Intl Units Cap) 1 cap PO Q7D [facility] Famotidine (Pepcid) 20 mg IVPB ONCE ONE Stop: 04/10/17 10:15 Ferrous Sulfate (Feosol) 325 mg PO DAILY [facility] Last Admin: 04/08/17 09:05 Dose: 325 mg Furosemide (Lasix) 40 mg IVP DAILY [facility] Last Admin: 04/08/17 08:36 Dose: 40 mg Guaifenesin/Dextromethorphan (Robitussin Dm) 10 ml PO Q4 PRN PRN Reason: Cough Heparin Sodium (Porcine) (Heparin) 5,000 units SC Q12 [facility] PRN Reason: Protocol Last Admin: 04/08/17 08:37 Dose: 5,000 units Hydralazine HCl (Apresoline) 50 mg PO TID [facility] Last Admin: 04/08/17 16:20 Dose: 50 mg Piperacillin Sod/Tazobactam (Sod 2.25 gm/ Sodium Chloride) 100 mls @ 100 mls/ hr IVPB Q8 [facility] Last Admin: 04/08/17 16:23 Dose: 100 mls/hr Methylprednisolone 80 mg/ (Sodium Chloride) 50 mls @ 100 mls/hr IVPB Q12 [facility] Last Admin: 04/08/17 08:33 Dose: 100 mls/hr Diphenhydramine HCl 25 mg/ (Sodium Chloride) 50.5 mls @ 101 mls/hr IVPB ONCE ONE Stop: 04/10/17 10:43 Cyclophosphamide 650 mg/ (Sodium Chloride) 250 mls @ 0 mls/hr IV ONCE ONE PRN Reason: Per Protocol Stop: 04/10/17 10:15 Dexamethasone 10 mg/ Sodium (Chloride) 51 mls @ 102 mls/hr IVPB ONCE ONE Stop: 04/10/17 10:43 Ondansetron HCl 16 mg/ Sodium (Chloride) 58 mls @ 116 mls/hr IVPB ONCE ONE Stop: 04/10/17 10:43 Nitroglycerin (Nitro-Bid 2% Oint) 1 inch TOP Q6H [facility] Last Admin: 04/08/17 18:09 Dose: 1 inch Pantoprazole Sodium (Protonix Ec Tab) 40 mg PO DAILY [facility] Last Admin: 04/08/17 08:25 Dose: 40 mg Fluticasone/Salmeterol (Advair Diskus 500/50) 1 puff IH Q12 [facility] Last Admin: 04/08/17 08:24 Dose: 1 puff Sevelamer Carbonate (Renvela) 1.6 gm PO TIDWM [facility] Sodium Bicarbonate (Sodium Bicarbonate Tab) 650 mg PO BID [facility] Last Admin: 04/08/17 16:21 Dose: 650 mg Spironolactone (Aldactone) 50 mg PO DAILY [facility] Last Admin: 04/08/17 08:24 Dose: 50 mg Vitamin B Complex/Vit C/Folic Acid (Nephro-Yemi) 1 tab PO DAILY [facility] - Labs Labs: 04/08/17 05:30 04/08/17 05:30 APTT 55.3 SECONDS (23.3-32.5) H 04/04/17 04:35
--- NOTE | 2017-04-08 19:52 | CP.PCM.PN ---
Subjective - Date & Time of Evaluation Date of Evaluation: 04/08/17 Time of Evaluation: 19:49 - Subjective Subjective: UROLOGY Pt seen today with penile edema. This is part of a l;arger issue of significant bilateral leg edema He is able to void without the need of a kuzn cath. Suspect with diuretic management his penile swelling will resolve Objective - Vital Signs/Intake and Output Vital Signs (last 24 hours): Temp Pulse Resp BP Pulse Ox 97.9 F 81 21 136/87 98 04/08/17 16:00 04/08/17 18:00 04/08/17 18:00 04/08/17 18:00 04/08/17 18:00 Intake and Output: 04/08/17 04/09/17 18:59 06:59 Intake Total 1790 Output Total 3000 Balance -1210 - Medications Medications: Current Medications Amlodipine Besylate (Norvasc) 10 mg PO DAILY [facility] Last Admin: 04/08/17 08:25 Dose: 10 mg Aspirin (Aspirin Chewable) 81 mg PO DAILY [facility] Last Admin: 04/08/17 08:25 Dose: 81 mg Atorvastatin Calcium (Lipitor) 20 mg PO HS [facility] Last Admin: 04/07/17 21:20 Dose: 20 mg Carvedilol (Coreg) 3.125 mg PO Q12 [facility] Last Admin: 04/08/17 12:26 Dose: 3.125 mg Clonidine HCl (Catapres) 0.3 mg PO BID [facility] Last Admin: 04/08/17 16:21 Dose: 0.3 mg Clopidogrel Bisulfate (Plavix) 75 mg PO DAILY [facility] Last Admin: 04/08/17 08:25 Dose: 75 mg Epoetin José Manuel (Procrit) 4,000 unit IV MWF [facility] Stop: 04/17/17 09:01 Ergocalciferol (Drisdol 50,000 Intl Units Cap) 1 cap PO Q7D [facility] Famotidine (Pepcid) 20 mg IVPB ONCE ONE Stop: 04/10/17 10:15 Ferrous Sulfate (Feosol) 325 mg PO DAILY [facility] Last Admin: 04/08/17 09:05 Dose: 325 mg Furosemide (Lasix) 40 mg IVP DAILY [facility] Last Admin: 04/08/17 08:36 Dose: 40 mg Guaifenesin/Dextromethorphan (Robitussin Dm) 10 ml PO Q4 PRN PRN Reason: Cough Heparin Sodium (Porcine) (Heparin) 5,000 units SC Q12 [facility] PRN Reason: Protocol Last Admin: 04/08/17 08:37 Dose: 5,000 units Hydralazine HCl (Apresoline) 50 mg PO TID [facility] Last Admin: 04/08/17 16:20 Dose: 50 mg Piperacillin Sod/Tazobactam (Sod 2.25 gm/ Sodium Chloride) 100 mls @ 100 mls/ hr IVPB Q8 [facility] Last Admin: 04/08/17 16:23 Dose: 100 mls/hr Methylprednisolone 80 mg/ (Sodium Chloride) 50 mls @ 100 mls/hr IVPB Q12 [facility] Last Admin: 04/08/17 08:33 Dose: 100 mls/hr Diphenhydramine HCl 25 mg/ (Sodium Chloride) 50.5 mls @ 101 mls/hr IVPB ONCE ONE Stop: 04/10/17 10:43 Cyclophosphamide 650 mg/ (Sodium Chloride) 250 mls @ 0 mls/hr IV ONCE ONE PRN Reason: Per Protocol Stop: 04/10/17 10:15 Dexamethasone 10 mg/ Sodium (Chloride) 51 mls @ 102 mls/hr IVPB ONCE ONE Stop: 04/10/17 10:43 Ondansetron HCl 16 mg/ Sodium (Chloride) 58 mls @ 116 mls/hr IVPB ONCE ONE Stop: 04/10/17 10:43 Nitroglycerin (Nitro-Bid 2% Oint) 1 inch TOP Q6H [facility] Last Admin: 04/08/17 18:09 Dose: 1 inch Pantoprazole Sodium (Protonix Ec Tab) 40 mg PO DAILY [facility] Last Admin: 04/08/17 08:25 Dose: 40 mg Fluticasone/Salmeterol (Advair Diskus 500/50) 1 puff IH Q12 [facility] Last Admin: 04/08/17 08:24 Dose: 1 puff Sevelamer Carbonate (Renvela) 1.6 gm PO TIDWM [facility] Sodium Bicarbonate (Sodium Bicarbonate Tab) 650 mg PO BID [facility] Last Admin: 04/08/17 16:21 Dose: 650 mg Spironolactone (Aldactone) 50 mg PO DAILY [facility] Last Admin: 04/08/17 08:24 Dose: 50 mg Vitamin B Complex/Vit C/Folic Acid (Nephro-Yemi) 1 tab PO DAILY [facility] - Labs Labs: 04/08/17 05:30 04/08/17 05:30 APTT 55.3 SECONDS (23.3-32.5) H 04/04/17 04:35
[2017-04-08] MEDS: Ergocalciferol 50,000 Intl Units Cap PO SCH (20:26)
[2017-04-09] MEDS: Nitroglycerin 2% 15 INCH/30 GM TUBE TOP SCH ×4 (01:00→19:30)
[2017-04-09 07:09] LABS: BASO % 0.1 % (0.0-2.0); HEMOGLOBIN 9.7 g/dL (12.0-18.0); LYMPH # 0.7 K/uL (1.0-4.3); LYMPH % 5.3 % (20.0-40.0); MEAN CELL VOLUME 89.2 fl (80.0-94.0); MEAN CORPUSCULAR HEMOGLOBIN 28.8 pg (27.0-31.0); MEAN CORPUSCULAR HGB CONC 32.3 g/dL (33.0-37.0); MEAN PLATELET VOLUME 8.7 fl (7.2-11.7); MONO # 0.4 K/uL (0.0-0.8); NEUT # 11.7 K/uL (1.8-7.0); NEUT % 91.6 % (50.0-75.0); PLATELET COUNT 201 K/uL (130-400); RBC 3.36 Mil/uL (4.40-5.90); RED CELL DISTRIBUTION WIDTH 17.9 % (11.5-14.5); WHITE BLOOD COUNT 12.7 K/uL (4.8-10.8)
[2017-04-09 07:20] LABS: CALCIUM 7.5 mg/dL (8.4-10.2)
[2017-04-09] MEDS: Fluticasone-Salmeterol 500-50mcg Diskus IH SCH ×2 (08:12→20:52)
[2017-04-09] MEDS: Sevelamer Carb 0.8 gm/Packet PO SCH ×3 (08:12→16:57)
[2017-04-09] MEDS: Pantoprazole 40 mg EC Tab PO SCH (08:14)
[2017-04-09] MEDS: Multivitamin Vitamin B Complex (Nephro-Vite) Tab PO SCH (08:14)
[2017-04-09] MEDS: methylPREDNISolone 80 MG in Sodium Chloride 0.9% 50 ML IVPB SCH ×2 (08:19→20:58)
[2017-04-09 08:29] LABS: LYMPHOCYTE 4 % (20-50); MONOCYTE 3 % (0-10); MYELOCYTE 4 % (0-0); NEUTROPHIL 87 % (42-75); PLATELET ESTIMATE NORMAL (NORMAL); REACTIVE LYMPHOCYTES 2 % (0-0); TOTAL CELLS COUNTED 100
[2017-04-09 08:30] LABS: ANISOCYTOSIS SLIGHT; OVALOCYTES SLIGHT
[2017-04-09 08:32] LABS: HYPOCHROMIC SLIGHT
[2017-04-09 10:40] LABS: IRON 147 ug/dL (49-181)
[2017-04-09 10:50] LABS: % IRON SATURATION 92 % (20-55); TOTAL IRON BINDING CAPACITY 160 ug/dL (250-450)
--- NOTE | 2017-04-09 13:48 | CP.PCM.PN ---
Subjective - Date & Time of Evaluation Date of Evaluation: 04/09/17 Time of Evaluation: 07:00 - Subjective Subjective: events noted rx in progress Objective - Vital Signs/Intake and Output Vital Signs (last 24 hours): Temp Pulse Resp BP Pulse Ox 97.7 F 100 H 17 127/84 96 04/09/17 07:42 04/09/17 10:04 04/09/17 10:00 04/09/17 10:04 04/09/17 10:00 Intake and Output: 04/09/17 04/09/17 06:59 18:59 Intake Total 820 500 Output Total 100 0 Balance 720 500 - Medications Medications: Current Medications Amlodipine Besylate (Norvasc) 10 mg PO DAILY [facility] Last Admin: 04/09/17 08:16 Dose: 10 mg Aspirin (Aspirin Chewable) 81 mg PO DAILY [facility] Last Admin: 04/09/17 08:15 Dose: 81 mg Atorvastatin Calcium (Lipitor) 20 mg PO HS [facility] Last Admin: 04/08/17 22:16 Dose: 20 mg Carvedilol (Coreg) 3.125 mg PO Q12 [facility] Last Admin: 04/09/17 08:14 Dose: 3.125 mg Clonidine HCl (Catapres) 0.3 mg PO BID [facility] Last Admin: 04/09/17 10:04 Dose: 0.3 mg Clopidogrel Bisulfate (Plavix) 75 mg PO DAILY [facility] Last Admin: 04/09/17 08:13 Dose: 75 mg Epoetin José Manuel (Procrit) 4,000 unit IV MWF [facility] Stop: 04/17/17 09:01 Ergocalciferol (Drisdol 50,000 Intl Units Cap) 1 cap PO Q7D [facility] Last Admin: 04/08/17 20:26 Dose: 1 cap Famotidine (Pepcid) 20 mg IVPB ONCE ONE Stop: 04/10/17 10:15 Ferrous Sulfate (Feosol) 325 mg PO DAILY [facility] Last Admin: 04/09/17 08:13 Dose: 325 mg Furosemide (Lasix) 60 mg IV DAILY [facility] Furosemide (Lasix) 20 mg IV ONCE ONE Stop: 04/09/17 10:33 Guaifenesin/Dextromethorphan (Robitussin Dm) 10 ml PO Q4 PRN PRN Reason: Cough Heparin Sodium (Porcine) (Heparin) 5,000 units SC Q12 [facility] PRN Reason: Protocol Last Admin: 04/09/17 08:17 Dose: 5,000 units Hydralazine HCl (Apresoline) 50 mg PO TID [facility] Last Admin: 04/09/17 08:13 Dose: 50 mg Piperacillin Sod/Tazobactam (Sod 2.25 gm/ Sodium Chloride) 100 mls @ 100 mls/ hr IVPB Q8 [facility] Last Admin: 04/09/17 08:20 Dose: 100 mls/hr Methylprednisolone 80 mg/ (Sodium Chloride) 50 mls @ 100 mls/hr IVPB Q12 [facility] Last Admin: 04/09/17 08:19 Dose: 100 mls/hr Diphenhydramine HCl 25 mg/ (Sodium Chloride) 50.5 mls @ 101 mls/hr IVPB ONCE ONE Stop: 04/10/17 10:43 Cyclophosphamide 650 mg/ (Sodium Chloride) 250 mls @ 0 mls/hr IV ONCE ONE PRN Reason: Per Protocol Stop: 04/10/17 10:15 Dexamethasone 10 mg/ Sodium (Chloride) 51 mls @ 102 mls/hr IVPB ONCE ONE Stop: 04/10/17 10:43 Ondansetron HCl 16 mg/ Sodium (Chloride) 58 mls @ 116 mls/hr IVPB ONCE ONE Stop: 04/10/17 10:43 Nitroglycerin (Nitro-Bid 2% Oint) 1 inch TOP Q6H [facility] Last Admin: 04/09/17 06:05 Dose: 1 inch Pantoprazole Sodium (Protonix Ec Tab) 40 mg PO DAILY [facility] Last Admin: 04/09/17 08:14 Dose: 40 mg Fluticasone/Salmeterol (Advair Diskus 500/50) 1 puff IH Q12 [facility] Last Admin: 04/09/17 08:12 Dose: 1 puff Sevelamer Carbonate (Renvela) 1.6 gm PO TIDWM [facility] Last Admin: 04/09/17 11:58 Dose: 1.6 gm Sodium Bicarbonate (Sodium Bicarbonate Tab) 650 mg PO BID [facility] Last Admin: 04/09/17 08:12 Dose: 650 mg Spironolactone (Aldactone) 50 mg PO DAILY [facility] Last Admin: 04/09/17 08:15 Dose: 50 mg Vitamin B Complex/Vit C/Folic Acid (Nephro-Yemi) 1 tab PO DAILY [facility] Last Admin: 04/09/17 08:14 Dose: 1 tab - Labs Labs: 04/09/17 05:30 04/09/17 05:30 APTT 55.3 SECONDS (23.3-32.5) H 04/04/17 04:35 - Constitutional Appears: Non-toxic, Chronically Ill - Head Exam Head Exam: NORMOCEPHALIC - ENT Exam ENT Exam: Mucous Membranes Dry - Neck Exam Neck Exam: absent: Lymphadenopathy - Respiratory Exam Respiratory Exam: Decreased Breath Sounds, Clear to Ausculation Bilateral - Cardiovascular Exam Cardiovascular Exam: REGULAR RHYTHM, +S1, +S2 - GI/Abdominal Exam GI & Abdominal Exam: Distended, Soft. absent: Tenderness - Rectal Exam Rectal Exam: Deferred Assessment and Plan (1) Acute on chronic renal failure Status: Acute (2) Acute systolic congestive heart failure Status: Acute (3) CHF (congestive heart failure) Status: Acute (4) NSTEMI (non-ST elevated myocardial infarction) Status: Acute
--- NOTE | 2017-04-09 14:29 | CP.PCM.PN ---
Subjective - Date & Time of Evaluation Date of Evaluation: 04/09/17 Time of Evaluation: 08:50 - Subjective Subjective: Patient seen and examined at bedside, sitting in bed eating breakfast, in no acute distress. Patient reports concern over his penile swelling, reassured patient and reviewed findings from urology consult that it is expected swelling will decrease with diuretic management. Otherwise pt is tolerating PO diet, reports able to urinate into urinal at bedside, is comfortable on 4L supplemental O2 via nasal cannula. Denies chest pain, SOB, headaches, dizziness or weakness. Has no other concerns or complaints at this time. Objective - Vital Signs/Intake and Output Vital Signs (last 24 hours): Temp Pulse Resp BP Pulse Ox 97.7 F 100 H 17 127/84 96 04/09/17 07:42 04/09/17 10:04 04/09/17 10:00 04/09/17 10:04 04/09/17 10:00 Intake and Output: 04/09/17 04/09/17 06:59 18:59 Intake Total 820 500 Output Total 100 0 Balance 720 500 - Medications Medications: Current Medications Amlodipine Besylate (Norvasc) 10 mg PO DAILY [facility] Last Admin: 04/09/17 08:16 Dose: 10 mg Aspirin (Aspirin Chewable) 81 mg PO DAILY [facility] Last Admin: 04/09/17 08:15 Dose: 81 mg Atorvastatin Calcium (Lipitor) 20 mg PO HS [facility] Last Admin: 04/08/17 22:16 Dose: 20 mg Carvedilol (Coreg) 3.125 mg PO Q12 [facility] Last Admin: 04/09/17 08:14 Dose: 3.125 mg Clonidine HCl (Catapres) 0.3 mg PO BID [facility] Last Admin: 04/09/17 10:04 Dose: 0.3 mg Clopidogrel Bisulfate (Plavix) 75 mg PO DAILY [facility] Last Admin: 04/09/17 08:13 Dose: 75 mg Epoetin José Manuel (Procrit) 4,000 unit IV MWF [facility] Stop: 04/17/17 09:01 Ergocalciferol (Drisdol 50,000 Intl Units Cap) 1 cap PO Q7D [facility] Last Admin: 04/08/17 20:26 Dose: 1 cap Famotidine (Pepcid) 20 mg IVPB ONCE ONE Stop: 04/10/17 10:15 Ferrous Sulfate (Feosol) 325 mg PO DAILY [facility] Last Admin: 04/09/17 08:13 Dose: 325 mg Furosemide (Lasix) 60 mg IV DAILY [facility] Guaifenesin/Dextromethorphan (Robitussin Dm) 10 ml PO Q4 PRN PRN Reason: Cough Heparin Sodium (Porcine) (Heparin) 5,000 units SC Q12 [facility] PRN Reason: Protocol Last Admin: 04/09/17 08:17 Dose: 5,000 units Hydralazine HCl (Apresoline) 50 mg PO TID [facility] Last Admin: 04/09/17 08:13 Dose: 50 mg Piperacillin Sod/Tazobactam (Sod 2.25 gm/ Sodium Chloride) 100 mls @ 100 mls/ hr IVPB Q8 [facility] Last Admin: 04/09/17 08:20 Dose: 100 mls/hr Methylprednisolone 80 mg/ (Sodium Chloride) 50 mls @ 100 mls/hr IVPB Q12 [facility] Last Admin: 04/09/17 08:19 Dose: 100 mls/hr Diphenhydramine HCl 25 mg/ (Sodium Chloride) 50.5 mls @ 101 mls/hr IVPB ONCE ONE Stop: 04/10/17 10:43 Cyclophosphamide 650 mg/ (Sodium Chloride) 250 mls @ 0 mls/hr IV ONCE ONE PRN Reason: Per Protocol Stop: 04/10/17 10:15 Dexamethasone 10 mg/ Sodium (Chloride) 51 mls @ 102 mls/hr IVPB ONCE ONE Stop: 04/10/17 10:43 Ondansetron HCl 16 mg/ Sodium (Chloride) 58 mls @ 116 mls/hr IVPB ONCE ONE Stop: 04/10/17 10:43 Nitroglycerin (Nitro-Bid 2% Oint) 1 inch TOP Q6H [facility] Last Admin: 04/09/17 06:05 Dose: 1 inch Pantoprazole Sodium (Protonix Ec Tab) 40 mg PO DAILY [facility] Last Admin: 04/09/17 08:14 Dose: 40 mg Fluticasone/Salmeterol (Advair Diskus 500/50) 1 puff IH Q12 [facility] Last Admin: 04/09/17 08:12 Dose: 1 puff Sevelamer Carbonate (Renvela) 1.6 gm PO TIDWM [facility] Last Admin: 04/09/17 11:58 Dose: 1.6 gm Sodium Bicarbonate (Sodium Bicarbonate Tab) 650 mg PO BID [facility] Last Admin: 04/09/17 08:12 Dose: 650 mg Spironolactone (Aldactone) 50 mg PO DAILY [facility] Last Admin: 04/09/17 08:15 Dose: 50 mg Vitamin B Complex/Vit C/Folic Acid (Nephro-Yemi) 1 tab PO DAILY [facility] Last Admin: 04/09/17 08:14 Dose: 1 tab - Labs Labs: 04/09/17 05:30 04/09/17 05:30 APTT 55.3 SECONDS (23.3-32.5) H 04/04/17 04:35 - Constitutional Appears: Non-toxic, No Acute Distress - Head Exam Head Exam: ATRAUMATIC, NORMOCEPHALIC - Eye Exam Eye Exam: EOMI, PERRL - ENT Exam ENT Exam: Mucous Membranes Moist - Neck Exam Neck Exam: Full ROM. absent: Lymphadenopathy - Respiratory Exam Respiratory Exam: Wheezes (mild wheeze). absent: Rales, Rhonchi, Respiratory Distress - Cardiovascular Exam Cardiovascular Exam: REGULAR RHYTHM, +S1, +S2 - GI/Abdominal Exam GI & Abdominal Exam: Soft, Normal Bowel Sounds. absent: Distended, Tenderness - Exam Exam: absent: Scrotal Swelling (+ penile swelling, non-tender) - Extremities Exam Extremities Exam: Full ROM, Pedal Edema (+1 pitting bilaterally) - Back Exam Back Exam: absent: CVA tenderness (L), CVA tenderness (R) - Neurological Exam Neurological Exam: Alert, Awake, Oriented x3 - Psychiatric Exam Psychiatric exam: Agitated (when subject of future discharge plans was discussed ) - Skin Skin Exam: Dry, Intact, Normal Color Assessment and Plan - Assessment and Plan (Free Text) Assessment: 67 yr old M admitted for respiratory distress and found to have Acute on Chronic Kidney Injury and CHF exacerbation, with PMHx of HTN, COPD, CKD, 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 Patient was found to have NSTEMI. He received hemodialysis + 2 units pRBC's for first time on 04/04/17. Blood culture negative x 3 days, Urine culture negative. 2nd session of hemodialysis + 1 unit pRBC's on 04/06/17 . Echo 04/02/17: Systolic CHF with LVEF 30-35%. Patient stable. 1. Respiratory Distress -Improving, O2 saturation 98% on 4L nasal cannula -Likely 2dary to acute CHF Exacerbation vs NSTEMI vs acute on CKD vs multifocal PNA -CXR 04/03/17: multifocal hazy opacities increased bilaterally in lungs compared to prior CXR, left sided pleural effusion, dx includes edema,hemorrhage, multifocal PNA -CT Chest 04/04/17: Large bilateral pleural effusions, compressive atelectasis and upper lobe infiltrates, cardiomegaly, pericardial effusion-correlate for CHF -ID consult appreciated, Dr. Silver: follow recommendations -discontinued Solumedrol 80 mg IVPB Q12 for tomorrow as patient will receive Dexamethasone 10 mg IV for Cytoxan tx -Zosyn 2.25mg IVPB Q8 -one time dose of Ipratropium INH given for mild wheezing this AM 2. Penile swelling -likely secondary to diffuse anasarca -CT Abd and Pelvis: severe diffuse anasarca, unremarkable appearance of urinary bladder, no focal or diffuse -Urology consult appreciated Dr. Henley: follow recommendations -diuretic management: lasix and aldactone 3. 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 NSTEMI -stable, ICU monitoring -Continue with aspirin 81 mg daily, Plavix 75 mg daily, Coreg 3.125mg PO Q12, Heparin 5,000 units SC BID -Not a good candidate for MAN inhibitor due to impaired renal function -Troponin elevated (serial measurement :0.285, 0.549, 0.384, 0.326) -Cardiology on board, consult appreciated Dr. Miles: f/u recommendations 5. Systolic CHF with Acute Exacerbation -Echo 04/02/17: LVEF 30-35%, with generalized moderate hypokinesia particularly pronounced in the septum -Cardio consult appreciated Dr. Miles: patient is not a suitable candidate for invasive cardiac workup, recommend continue with Coreg 3.125mg Q12, SC Heparin 5,000 units BID, Lipitor 20 mg PO QD, Zosyn 2.25mg IV Q8, Plavix 75mg QD -Increased Lasix 60mg IVPB QD -ProBNP: improved to 87,400 (04/05/17) from 167,000 (04/02/17) -Not a good candidate for MAN-i due to impaired renal function -Strict I/Os. Daily weights. 6. 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 pt voiding small amounts and on HD 7. Hx of RUE DVT -RUE DVT detected on 02/04/17 however patient was not a good candidate for mcc anticoagulation -D-dimer also elevated at admission but of undetermined significance -B/L upper extremities US showed partial compression of the right basilic vein, possible due to a chronic thrombus -B/L lower extremities US showed no evidence of DVT -Discontinued Heparin drip ( for therapeutic management of ACS), was stopped because dropped in H/H -continue anticoagulation as above 8. HTN -uncontrolled, likely due to medication non-adherence and worsening renal function -Cardio consult appreciated Dr. Miles: continue with Hydralazine, Clonidine , Norvasc -Hydralazine increased to 50 mg TID -Aldactone 50mg PO daily 9. DVT Prophylaxis -SCDs -Heparin 5000 units SC BID
[2017-04-09] MEDS ORDERED: Ipratropium 0.02% Inhal Soln (0.5 mg/2.5 ml) UD IH STA (14:42)
--- NOTE | 2017-04-09 14:46 | CARD ---
APPROVED REPORT EKG Measurement Heart [id number] <Conclusion> Multifocal Atrial Tachycardia Septal infarct, age undetermined Abnormal ECG
--- NOTE | 2017-04-09 16:44 | CP.PCM.PN ---
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 Continue with Nephrovite 1 tab/day. PRBC as needed for anemia. On MARCELINA as epogen added, last Hb 9.7. TSAT 92% and Ferritin. 1200 consider heme eval as with monoclonal protein IgG kappa Continue with phos binders but increased to 1600 mg TID , last phos level 6.6 supplement with Vit d weekly BP control with meds as ordered. Patient on RAAS noel as with Aldactone. caution with serum K Glycemic control, Dialysis consistent diet can attempt to diurese with lasix 80 mg IVP with PO metalozone 5 mg Further work up/management as per primary team Dose meds/antibiotics (if needed) for GFR <10 status. Avoid fleets enema/ magnesium based laxatives. pt planned for cytoxan on monday as per Dr Sandoval Thanks for allowing me to participate in care of your patient. Will follow patient with you. Please call if any Qs Dr Darren Samano Office: [phone] Subjective: Noted events overnight. Patients feels okay. Denies chest pain, palpitation. Improved shortness of breath, c/o scrotal and leg swelling. No urinary complaints, says not much urine Physical Examination: General Appearance: Comfortable, in no acute respiratory distress, co- operative. Vitals reviewed and noted as below Lungs: Normal respiratory rate/effort. Breath sounds bilateral equal and basal crackles Heart: Normal rate. s1s2 normal. No rub or gallop. Extremities: 2+ edema. Neurological: Patient is alert, awake and oriented to person, place and time. No focal deficit. Strength bilateral appropriate and equal Skin: Warm and dry. Normal turgor. No rash. Palpitation: Normal elasticity for age Abdomen: Abdomen is soft. Bowel sounds +. There is no abdominal tenderness, no guarding/rigidity or organomegaly : kidney or bladder not palpable. has scrotal swelling Access: catheter Labs/imaging reviewed. Past medical history, past surgical history, family history, social history, allergy reviewed Objective - Vital Signs/Intake and Output Vital Signs (last 24 hours): Temp Pulse Resp BP Pulse Ox 97.7 F 80 17 141/86 96 04/09/17 07:42 04/09/17 12:33 04/09/17 10:00 04/09/17 12:33 04/09/17 10:00 Intake and Output: 04/09/17 04/09/17 06:59 18:59 Intake Total 820 500 Output Total 100 0 Balance 720 500 - Medications Medications: Current Medications Amlodipine Besylate (Norvasc) 10 mg PO DAILY [facility] Last Admin: 04/09/17 08:16 Dose: 10 mg Aspirin (Aspirin Chewable) 81 mg PO DAILY [facility] Last Admin: 04/09/17 08:15 Dose: 81 mg Atorvastatin Calcium (Lipitor) 20 mg PO HS [facility] Last Admin: 04/08/17 22:16 Dose: 20 mg Carvedilol (Coreg) 3.125 mg PO Q12 [facility] Last Admin: 04/09/17 08:14 Dose: 3.125 mg Clonidine HCl (Catapres) 0.3 mg PO BID [facility] Last Admin: 04/09/17 10:04 Dose: 0.3 mg Clopidogrel Bisulfate (Plavix) 75 mg PO DAILY [facility] Last Admin: 04/09/17 08:13 Dose: 75 mg Epoetin José Manuel (Procrit) 4,000 unit IV MWF [facility] Stop: 04/17/17 09:01 Ergocalciferol (Drisdol 50,000 Intl Units Cap) 1 cap PO Q7D [facility] Last Admin: 04/08/17 20:26 Dose: 1 cap Famotidine (Pepcid) 20 mg IVPB ONCE ONE Stop: 04/10/17 10:15 Ferrous Sulfate (Feosol) 325 mg PO DAILY [facility] Last Admin: 04/09/17 08:13 Dose: 325 mg Furosemide (Lasix) 60 mg IV DAILY [facility] Guaifenesin/Dextromethorphan (Robitussin Dm) 10 ml PO Q4 PRN PRN Reason: Cough Heparin Sodium (Porcine) (Heparin) 5,000 units SC Q12 [facility] PRN Reason: Protocol Last Admin: 04/09/17 08:17 Dose: 5,000 units Hydralazine HCl (Apresoline) 50 mg PO TID [facility] Last Admin: 04/09/17 12:33 Dose: 50 mg Piperacillin Sod/Tazobactam (Sod 2.25 gm/ Sodium Chloride) 100 mls @ 100 mls/ hr IVPB Q8 [facility] Last Admin: 04/09/17 08:20 Dose: 100 mls/hr Methylprednisolone 80 mg/ (Sodium Chloride) 50 mls @ 100 mls/hr IVPB Q12 [facility] Last Admin: 04/09/17 08:19 Dose: 100 mls/hr Diphenhydramine HCl 25 mg/ (Sodium Chloride) 50.5 mls @ 101 mls/hr IVPB ONCE ONE Stop: 04/10/17 10:43 Cyclophosphamide 650 mg/ (Sodium Chloride) 250 mls @ 0 mls/hr IV ONCE ONE PRN Reason: Per Protocol Stop: 04/10/17 10:15 Dexamethasone 10 mg/ Sodium (Chloride) 51 mls @ 102 mls/hr IVPB ONCE ONE Stop: 04/10/17 10:43 Ondansetron HCl 16 mg/ Sodium (Chloride) 58 mls @ 116 mls/hr IVPB ONCE ONE Stop: 04/10/17 10:43 Nitroglycerin (Nitro-Bid 2% Oint) 1 inch TOP Q6H [facility] Last Admin: 04/09/17 06:05 Dose: 1 inch Pantoprazole Sodium (Protonix Ec Tab) 40 mg PO DAILY [facility] Last Admin: 04/09/17 08:14 Dose: 40 mg Fluticasone/Salmeterol (Advair Diskus 500/50) 1 puff IH Q12 [facility] Last Admin: 04/09/17 08:12 Dose: 1 puff Sevelamer Carbonate (Renvela) 1.6 gm PO TIDWM [facility] Last Admin: 04/09/17 11:58 Dose: 1.6 gm Sodium Bicarbonate (Sodium Bicarbonate Tab) 650 mg PO BID [facility] Last Admin: 04/09/17 08:12 Dose: 650 mg Spironolactone (Aldactone) 50 mg PO DAILY [facility] Last Admin: 04/09/17 08:15 Dose: 50 mg Vitamin B Complex/Vit C/Folic Acid (Nephro-Yemi) 1 tab PO DAILY [facility] Last Admin: 04/09/17 08:14 Dose: 1 tab - Labs Labs: 04/09/17 05:30 04/09/17 05:30 APTT 55.3 SECONDS (23.3-32.5) H 04/04/17 04:35
[2017-04-10] MEDS: Nitroglycerin 2% 15 INCH/30 GM TUBE TOP SCH ×3 (01:35→18:37)
[2017-04-10 05:28] LABS: MEAN CELL VOLUME 89.2 fl (80.0-94.0); MEAN CORPUSCULAR HEMOGLOBIN 28.5 pg (27.0-31.0); RBC 3.15 Mil/uL (4.40-5.90); RED CELL DISTRIBUTION WIDTH 17.5 % (11.5-14.5); WHITE BLOOD COUNT 14.7 K/uL (4.8-10.8)
[2017-04-10 05:30] LABS: ALB/GLOB RATIO 0.9 (1.0-2.1); ALBUMIN 2.4 g/dL (3.5-5.0); CALCIUM 7.5 mg/dL (8.4-10.2)
[2017-04-10] MEDS ORDERED: Albuterol 0.083% Inhal Sol (2.5 mg/3 mL) UD INH ONE (07:03)
--- NOTE | 2017-04-10 09:17 | CP.PCM.PN ---
Subjective - Date & Time of Evaluation Date of Evaluation: 04/10/17 Time of Evaluation: 08:00 - Subjective Subjective: Patient seen and examined at bedside, sitting comfortably in bed, reports he is feeling better, ambulating without difficulty, had a bowel movement this AM and able to void small amount of urine. Denies chest pain, SOB, headaches, weakness or dizziness. Patient is still concerned in regards to his penile swelling which he feels has not improved since yesterday. He has no other concerns or complaints at this time. Objective - Vital Signs/Intake and Output Vital Signs (last 24 hours): Temp Pulse Resp BP Pulse Ox 97.7 F 81 17 166/88 H 99 04/10/17 07:41 04/10/17 07:41 04/10/17 07:41 04/10/17 07:41 04/10/17 07:41 Intake and Output: 04/10/17 04/10/17 06:59 18:59 Intake Total 340 130 Output Total 200 Balance 140 130 - Medications Medications: Current Medications Amlodipine Besylate (Norvasc) 10 mg PO DAILY [facility] Last Admin: 04/09/17 08:16 Dose: 10 mg Aspirin (Aspirin Chewable) 81 mg PO DAILY [facility] Last Admin: 04/09/17 08:15 Dose: 81 mg Atorvastatin Calcium (Lipitor) 20 mg PO HS [facility] Last Admin: 04/09/17 21:06 Dose: 20 mg Carvedilol (Coreg) 3.125 mg PO Q12 [facility] Last Admin: 04/09/17 20:52 Dose: 3.125 mg Clonidine HCl (Catapres) 0.3 mg PO BID [facility] Last Admin: 04/09/17 16:58 Dose: 0.3 mg Clopidogrel Bisulfate (Plavix) 75 mg PO DAILY [facility] Last Admin: 04/09/17 08:13 Dose: 75 mg Epoetin José Manuel (Procrit) 4,000 unit IV MWF [facility] Stop: 04/17/17 09:01 Ergocalciferol (Drisdol 50,000 Intl Units Cap) 1 cap PO Q7D [facility] Last Admin: 04/08/17 20:26 Dose: 1 cap Famotidine (Pepcid) 20 mg IVPB ONCE ONE Stop: 04/10/17 10:15 Furosemide (Lasix) 80 mg IVP DAILY [facility] Guaifenesin/Dextromethorphan (Robitussin Dm) 10 ml PO Q4 PRN PRN Reason: Cough Heparin Sodium (Porcine) (Heparin) 5,000 units SC Q12 [facility] PRN Reason: Protocol Last Admin: 04/09/17 20:53 Dose: 5,000 units Hydralazine HCl (Apresoline) 50 mg PO TID [facility] Last Admin: 04/09/17 16:58 Dose: 50 mg Piperacillin Sod/Tazobactam (Sod 2.25 gm/ Sodium Chloride) 100 mls @ 100 mls/ hr IVPB Q8 [facility] Last Admin: 04/10/17 01:34 Dose: 100 mls/hr Methylprednisolone 80 mg/ (Sodium Chloride) 50 mls @ 100 mls/hr IVPB Q12 [facility] Last Admin: 04/09/17 20:58 Dose: 100 mls/hr Diphenhydramine HCl 25 mg/ (Sodium Chloride) 50.5 mls @ 101 mls/hr IVPB ONCE ONE Stop: 04/10/17 10:43 Cyclophosphamide 650 mg/ (Sodium Chloride) 250 mls @ 0 mls/hr IV ONCE ONE PRN Reason: Per Protocol Stop: 04/10/17 10:15 Dexamethasone 10 mg/ Sodium (Chloride) 51 mls @ 102 mls/hr IVPB ONCE ONE Stop: 04/10/17 10:43 Ondansetron HCl 16 mg/ Sodium (Chloride) 58 mls @ 116 mls/hr IVPB ONCE ONE Stop: 04/10/17 10:43 Metolazone (Zaroxolyn) 5 mg PO DAILY [facility] Nitroglycerin (Nitro-Bid 2% Oint) 1 inch TOP Q6H [facility] Last Admin: 04/10/17 07:04 Dose: 1 inch Pantoprazole Sodium (Protonix Ec Tab) 40 mg PO DAILY [facility] Last Admin: 04/09/17 08:14 Dose: 40 mg Fluticasone/Salmeterol (Advair Diskus 500/50) 1 puff IH Q12 [facility] Last Admin: 04/09/17 20:52 Dose: 1 puff Sevelamer Carbonate (Renvela) 1.6 gm PO TIDWM [facility] Last Admin: 04/09/17 16:57 Dose: 1.6 gm Sodium Bicarbonate (Sodium Bicarbonate Tab) 650 mg PO BID [facility] Last Admin: 04/09/17 17:00 Dose: 650 mg Vitamin B Complex/Vit C/Folic Acid (Nephro-Yemi) 1 tab PO DAILY [facility] Last Admin: 04/09/17 08:14 Dose: 1 tab - Labs Labs: 04/10/17 04:20 04/10/17 04:20 APTT 55.3 SECONDS (23.3-32.5) H 04/04/17 04:35 - Constitutional Appears: Well, No Acute Distress - Head Exam Head Exam: ATRAUMATIC, NORMOCEPHALIC - Eye Exam Eye Exam: EOMI, PERRL - ENT Exam ENT Exam: Mucous Membranes Moist - Neck Exam Neck Exam: Full ROM. absent: Lymphadenopathy - Respiratory Exam Respiratory Exam: Rhonchi (mild ronchi in bilateral lower lobes). absent: Accessory Muscle Use - Cardiovascular Exam Cardiovascular Exam: REGULAR RHYTHM, +S1, +S2. absent: Gallop, Rubs - GI/Abdominal Exam GI & Abdominal Exam: Soft, Normal Bowel Sounds. absent: Tenderness - Exam Exam: absent: Scrotal Swelling (penile swelling same as yesterday) - Extremities Exam Extremities Exam: Full ROM, Pedal Edema (+2 pitting edema) - Back Exam Back Exam: absent: CVA tenderness (L), CVA tenderness (R) - Neurological Exam Neurological Exam: Alert, Awake, CN II-XII Intact, Oriented x3 - Psychiatric Exam Psychiatric exam: Normal Affect, Normal Mood - Skin Skin Exam: Dry, Intact, Warm Assessment and Plan - Assessment and Plan (Free Text) Assessment: 67 yr old M admitted for respiratory distress and found to have Acute on Chronic Kidney Injury and CHF exacerbation, with PMHx of HTN, COPD, CKD, 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 Patient was found to have NSTEMI. He received hemodialysis + 2 units pRBC's for first time on 04/04/17. Blood culture negative x 5 days, Urine culture negative. 2nd session of hemodialysis + 1 unit pRBC's on 04/06/17 . Echo 04/02/17: Systolic CHF with LVEF 30-35%. Patient stable. Today scheduled for HD, Cytoxan tx as per protocol. 1. Respiratory Distress -Improving, O2 saturation 98% on 4L nasal cannula -Likely 2dary to acute CHF Exacerbation vs NSTEMI vs acute on CKD vs multifocal PNA -CXR 04/03/17: multifocal hazy opacities increased bilaterally in lungs compared to prior CXR, left sided pleural effusion, dx includes edema,hemorrhage, multifocal PNA -CT Chest 04/04/17: Large bilateral pleural effusions, compressive atelectasis and upper lobe infiltrates, cardiomegaly, pericardial effusion-correlate for CHF -ID consult appreciated, Dr. Silver: follow recommendations -Solumedrol 80 mg IVPB Q12 -Zosyn 2.25mg IVPB Q8 2. Penile swelling -stable -likely secondary to diffuse anasarca -CT Abd and Pelvis: severe diffuse anasarca, unremarkable appearance of urinary bladder, no focal or diffuse -Urology consult appreciated Dr. Henley: follow recommendations -diuretic management: lasix, Metolazone 5mg PO QD -will consider continuing Aldactone (will discuss with nephro first) 3. 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 NSTEMI -stable, ICU monitoring -Continue with aspirin 81 mg daily, Plavix 75 mg daily, Coreg 3.125mg PO Q12, Heparin 5,000 units SC BID -Not a good candidate for MAN inhibitor due to impaired renal function -Troponin elevated (serial measurement :0.285, 0.549, 0.384, 0.326) -Cardiology on board, consult appreciated Dr. Miles: f/u recommendations 5. Systolic CHF with Acute Exacerbation -Echo 04/02/17: LVEF 30-35%, with generalized moderate hypokinesia particularly pronounced in the septum -Cardio consult appreciated Dr. Miles: patient is not a suitable candidate for invasive cardiac workup, recommend continue with Coreg 3.125mg Q12, SC Heparin 5,000 units BID, Lipitor 20 mg PO QD, Zosyn 2.25mg IV Q8, Plavix 75mg QD -Increased Lasix to 80mg IVPB QD -ProBNP: improved to 87,400 (04/05/17) from 167,000 (04/02/17) -Not a good candidate for MAN-i due to impaired renal function -Strict I/Os. Daily weights. 6. 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 pt voiding small amounts and on HD as needed (thus far had HD on Tue 04/04/Thur 04/06 /Sat 04/08), HD scheduled for today 7. Hx of RUE DVT -RUE DVT detected on 02/04/17 however patient was not a good candidate for longterm anticoagulation -D-dimer also elevated at admission but of undetermined significance -B/L upper extremities US showed partial compression of the right basilic vein, possible due to a chronic thrombus -B/L lower extremities US showed no evidence of DVT -Discontinued Heparin drip ( for therapeutic management of ACS), was stopped because dropped in H/H -continue anticoagulation as above 8. HTN -uncontrolled, likely due to medication non-adherence and worsening renal function -Cardio consult appreciated Dr. Miles: continue with Hydralazine, Clonidine , Norvasc -Hydralazine 50 mg TID 9. DVT Prophylaxis -SCDs -Heparin 5000 units SC BID
[2017-04-10] MEDS: Multivitamin Vitamin B Complex (Nephro-Vite) Tab PO SCH (09:53)
[2017-04-10] MEDS: Epoetin Alfa 4000 UNIT/ML Inj IV SCH (09:55)
[2017-04-10] MEDS: Pantoprazole 40 mg EC Tab PO SCH (09:55)
[2017-04-10] MEDS: Sevelamer Carb 0.8 gm/Packet PO SCH ×3 (09:56→17:33)
[2017-04-10] MEDS: methylPREDNISolone 80 MG in Sodium Chloride 0.9% 50 ML IVPB SCH ×2 (09:57→20:00)
[2017-04-10] MEDS: Fluticasone-Salmeterol 500-50mcg Diskus IH SCH ×2 (10:00→21:07)
[2017-04-10] MEDS ORDERED: Dexamethasone 10 MG in Sodium Chloride 0.9% 50 ML IVPB ONE ×2 (11:15→14:49)
--- NOTE | 2017-04-10 11:24 | CP.PCM.PN ---
Subjective - Date & Time of Evaluation Date of Evaluation: 04/10/17 Time of Evaluation: 11:22 - Subjective Subjective: Patient receiving extra hemodialysis treatment today because of the volume and leg edema Patient tolerating hemodialysis with ultrafiltration goal 3500 today and 3500 tomorrow. Patient scheduled to receive Cytoxan 650 mg today post dialysis. Prognosis is poor for recovery of his kidney function however we will continue attempting Treatment of his basic disease. Objective - Vital Signs/Intake and Output Vital Signs (last 24 hours): Temp Pulse Resp BP Pulse Ox 97.7 F 81 17 159/94 H 99 04/10/17 07:41 04/10/17 07:41 04/10/17 07:41 04/10/17 09:52 04/10/17 07:41 Intake and Output: 04/10/17 04/10/17 06:59 18:59 Intake Total 340 130 Output Total 200 Balance 140 130 - Medications Medications: Current Medications Amlodipine Besylate (Norvasc) 10 mg PO DAILY [facility] Last Admin: 04/09/17 08:16 Dose: 10 mg Aspirin (Aspirin Chewable) 81 mg PO DAILY [facility] Last Admin: 04/10/17 09:50 Dose: 81 mg Atorvastatin Calcium (Lipitor) 20 mg PO HS [facility] Last Admin: 04/09/17 21:06 Dose: 20 mg Carvedilol (Coreg) 3.125 mg PO Q12 [facility] Last Admin: 04/09/17 20:52 Dose: 3.125 mg Clonidine HCl (Catapres) 0.3 mg PO BID [facility] Last Admin: 04/10/17 09:51 Dose: Not Given Clopidogrel Bisulfate (Plavix) 75 mg PO DAILY [facility] Last Admin: 04/10/17 09:53 Dose: 75 mg Epoetin José Manuel (Procrit) 4,000 unit IV MWF [facility] Stop: 04/17/17 09:01 Last Admin: 04/10/17 09:55 Dose: 4,000 unit Ergocalciferol (Drisdol 50,000 Intl Units Cap) 1 cap PO Q7D [facility] Last Admin: 04/08/17 20:26 Dose: 1 cap Furosemide (Lasix) 80 mg IVP DAILY [facility] Last Admin: 04/10/17 09:52 Dose: 80 mg Guaifenesin/Dextromethorphan (Robitussin Dm) 10 ml PO Q4 PRN PRN Reason: Cough Heparin Sodium (Porcine) (Heparin) 5,000 units SC Q12 [facility] PRN Reason: Protocol Last Admin: 04/10/17 10:01 Dose: Not Given Hydralazine HCl (Apresoline) 50 mg PO TID [facility] Last Admin: 04/10/17 09:50 Dose: Not Given Piperacillin Sod/Tazobactam (Sod 2.25 gm/ Sodium Chloride) 100 mls @ 100 mls/ hr IVPB Q8 [facility] Last Admin: 04/10/17 09:58 Dose: 100 mls/hr Methylprednisolone 80 mg/ (Sodium Chloride) 50 mls @ 100 mls/hr IVPB Q12 [facility] Last Admin: 04/10/17 09:57 Dose: 100 mls/hr Diphenhydramine HCl 25 mg/ (Sodium Chloride) 50.5 mls @ 101 mls/hr IVPB ONCE ONE Stop: 04/10/17 11:29 Cyclophosphamide 650 mg/ (Sodium Chloride) 250 mls @ 0 mls/hr IV ONCE ONE PRN Reason: Per Protocol Stop: 04/10/17 10:15 Dexamethasone 10 mg/ Sodium (Chloride) 51 mls @ 102 mls/hr IVPB ONCE ONE Stop: 04/10/17 11:44 Ondansetron HCl 16 mg/ Sodium (Chloride) 58 mls @ 116 mls/hr IVPB ONCE ONE Stop: 04/10/17 11:44 Famotidine 20 mg/ Sodium (Chloride) 52 mls @ 104 mls/hr IVPB ONCE ONE Stop: 04/10/17 11:44 Metolazone (Zaroxolyn) 5 mg PO DAILY [facility] Nitroglycerin (Nitro-Bid 2% Oint) 1 inch TOP Q6H [facility] Last Admin: 04/10/17 07:04 Dose: 1 inch Pantoprazole Sodium (Protonix Ec Tab) 40 mg PO DAILY [facility] Last Admin: 04/10/17 09:55 Dose: 40 mg Fluticasone/Salmeterol (Advair Diskus 500/50) 1 puff IH Q12 [facility] Last Admin: 04/10/17 10:00 Dose: 1 puff Sevelamer Carbonate (Renvela) 1.6 gm PO TIDWM [facility] Last Admin: 04/10/17 09:56 Dose: 1.6 gm Sodium Bicarbonate (Sodium Bicarbonate Tab) 650 mg PO BID [facility] Last Admin: 04/10/17 09:56 Dose: 650 mg Vitamin B Complex/Vit C/Folic Acid (Nephro-Yemi) 1 tab PO DAILY [facility] Last Admin: 04/10/17 09:53 Dose: 1 tab - Labs Labs: 04/10/17 04:20 04/10/17 04:20 APTT 55.3 SECONDS (23.3-32.5) H 04/04/17 04:35 Assessment and Plan (1) Acute on chronic renal failure Status: Acute (2) Acute systolic congestive heart failure Status: Acute
[2017-04-10] MEDS: metOLazone 5 MG TAB PO SCH (12:46)
[2017-04-10] MEDS ORDERED: SODIUM CHLORIDE 0.45% IV ONE (14:00)
[2017-04-10] MEDS ORDERED: CYCLOPHOSPHAMIDE IV ONE (14:00)
[2017-04-11] MEDS: Nitroglycerin 2% 15 INCH/30 GM TUBE TOP SCH ×4 (00:55→17:59)
[2017-04-11 08:10] LABS: MEAN CELL VOLUME 89.5 fl (80.0-94.0); MEAN CORPUSCULAR HEMOGLOBIN 28.6 pg (27.0-31.0); MEAN CORPUSCULAR HGB CONC 31.9 g/dL (33.0-37.0); RBC 3.16 Mil/uL (4.40-5.90); RED CELL DISTRIBUTION WIDTH 17.8 % (11.5-14.5); WHITE BLOOD COUNT 17.2 K/uL (4.8-10.8)
[2017-04-11 08:16] LABS: CALCIUM 7.4 mg/dL (8.4-10.2)
[2017-04-11] MEDS: Fluticasone-Salmeterol 500-50mcg Diskus IH SCH ×2 (08:34→21:01)
[2017-04-11] MEDS: Multivitamin Vitamin B Complex (Nephro-Vite) Tab PO SCH (08:34)
[2017-04-11] MEDS: Pantoprazole 40 mg EC Tab PO SCH (08:35)
[2017-04-11] MEDS: Sevelamer Carb 0.8 gm/Packet PO SCH ×4 (08:37→16:27)
[2017-04-11] MEDS: metOLazone 5 MG TAB PO SCH ×2 (08:37→14:14)
--- NOTE | 2017-04-11 13:25 | CP.PCM.PN ---
Subjective - Date & Time of Evaluation Date of Evaluation: 04/11/17 Time of Evaluation: 07:50 - Subjective Subjective: Patient seen and examined at bedside. Sitting in chair comfortably, ambulating without difficulty, denies SOB and is comfortable on room air. Patient reports he is still concerned about his penile swelling, is voiding small amounts of urine. Has a good appetite and denies nausea,vomiting or dizziness. Patient has no other concerns or complaints at this time. Objective - Vital Signs/Intake and Output Vital Signs (last 24 hours): Temp Pulse Resp BP Pulse Ox 98.3 F 72 20 166/90 H 96 04/11/17 07:38 04/11/17 08:36 04/11/17 07:38 04/11/17 08:36 04/11/17 07:38 Intake and Output: 04/11/17 04/11/17 06:59 18:59 Intake Total 270 270 Output Total 3000 Balance 270 -2730 - Medications Medications: Current Medications Amlodipine Besylate (Norvasc) 10 mg PO DAILY [facility] Last Admin: 04/11/17 08:39 Dose: Not Given Aspirin (Aspirin Chewable) 81 mg PO DAILY [facility] Last Admin: 04/11/17 08:35 Dose: 81 mg Atorvastatin Calcium (Lipitor) 20 mg PO HS [facility] Last Admin: 04/10/17 21:07 Dose: 20 mg Carvedilol (Coreg) 3.125 mg PO Q12 [facility] Last Admin: 04/11/17 08:36 Dose: 3.125 mg Citalopram Hydrobromide (Celexa) 20 mg PO DAILY [facility] Last Admin: 04/11/17 12:31 Dose: 20 mg Clonidine HCl (Catapres) 0.3 mg PO BID [facility] Last Admin: 04/11/17 08:35 Dose: Not Given Clopidogrel Bisulfate (Plavix) 75 mg PO DAILY [facility] Last Admin: 04/11/17 08:35 Dose: 75 mg Epoetin José Manuel (Procrit) 4,000 unit IV MWF [facility] Stop: 04/17/17 09:01 Last Admin: 04/10/17 09:55 Dose: 4,000 unit Ergocalciferol (Drisdol 50,000 Intl Units Cap) 1 cap PO Q7D [facility] Last Admin: 04/08/17 20:26 Dose: 1 cap Furosemide (Lasix) 80 mg IVP DAILY [facility] Last Admin: 04/11/17 08:39 Dose: Not Given Guaifenesin/Dextromethorphan (Robitussin Dm) 10 ml PO Q4 PRN PRN Reason: Cough Heparin Sodium (Porcine) (Heparin) 5,000 units SC Q12 [facility] PRN Reason: Protocol Last Admin: 04/11/17 08:36 Dose: 5,000 units Hydralazine HCl (Apresoline) 50 mg PO TID [facility] Last Admin: 04/11/17 12:19 Dose: Not Given Piperacillin Sod/Tazobactam (Sod 2.25 gm/ Sodium Chloride) 100 mls @ 100 mls/ hr IVPB Q8 [facility] Last Admin: 04/11/17 08:38 Dose: 100 mls/hr Metolazone (Zaroxolyn) 5 mg PO DAILY [facility] Last Admin: 04/11/17 08:37 Dose: Not Given Nitroglycerin (Nitro-Bid 2% Oint) 1 inch TOP Q6H [facility] Last Admin: 04/11/17 12:32 Dose: 1 inch Pantoprazole Sodium (Protonix Ec Tab) 40 mg PO DAILY [facility] Last Admin: 04/11/17 08:35 Dose: 40 mg Fluticasone/Salmeterol (Advair Diskus 500/50) 1 puff IH Q12 [facility] Last Admin: 04/11/17 08:34 Dose: 1 puff Sevelamer Carbonate (Renvela) 1.6 gm PO TIDWM [facility] Last Admin: 04/11/17 12:32 Dose: 1.6 gm Sodium Bicarbonate (Sodium Bicarbonate Tab) 650 mg PO BID [facility] Last Admin: 04/11/17 08:34 Dose: 650 mg Vitamin B Complex/Vit C/Folic Acid (Nephro-Yemi) 1 tab PO DAILY [facility] Last Admin: 04/11/17 08:34 Dose: 1 tab - Labs Labs: 04/11/17 06:30 04/11/17 06:30 APTT 55.3 SECONDS (23.3-32.5) H 04/04/17 04:35 - Constitutional Appears: Well, No Acute Distress - Head Exam Head Exam: ATRAUMATIC, NORMOCEPHALIC - Eye Exam Eye Exam: EOMI, PERRL - ENT Exam ENT Exam: Mucous Membranes Moist - Neck Exam Neck Exam: Full ROM. absent: Lymphadenopathy - Respiratory Exam Respiratory Exam: Clear to Ausculation Bilateral, NORMAL BREATHING PATTERN. absent: Rales, Rhonchi - Cardiovascular Exam Cardiovascular Exam: REGULAR RHYTHM, +S1, +S2 - GI/Abdominal Exam GI & Abdominal Exam: Soft, Normal Bowel Sounds. absent: Distended, Tenderness - Exam Exam: absent: Scrotal Swelling (penile swelling not improved since yesterday) - Extremities Exam Extremities Exam: Full ROM, Pedal Edema (pitting +3 up to below knees). 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 Patient was found to have NSTEMI. He received hemodialysis + 2 units pRBC's for first time on 04/04/17. Blood culture negative x 5 days, Urine culture negative. 2nd session of hemodialysis + 1 unit pRBC's on 04/06/17 . Echo 04/02/17: Systolic CHF with LVEF 30-35%. HD, Cytoxan tx as per protocol was given 04/10/17. Patient is stable. 1. Respiratory Distress -Improving, O2 saturation 96% on room air -Likely 2dary to acute CHF Exacerbation vs NSTEMI vs acute on CKD vs multifocal PNA -CXR 04/03/17: multifocal hazy opacities increased bilaterally in lungs compared to prior CXR, left sided pleural effusion, dx includes edema,hemorrhage, multifocal PNA -CT Chest 04/04/17: Large bilateral pleural effusions, compressive atelectasis and upper lobe infiltrates, cardiomegaly, pericardial effusion-correlate for CHF -ID consult appreciated, Dr. Silver: follow recommendations -will discuss with Dr. Sandoval whether to resume Solumedrol 80 mg IVPB Q12 -Zosyn 2.25mg IVPB Q8 2. Penile swelling -stable -likely secondary to diffuse anasarca -CT Abd and Pelvis: severe diffuse anasarca, unremarkable appearance of urinary bladder, no focal or diffuse -Urology consult appreciated Dr. Henley: follow recommendations -diuretic management: lasix, Metolazone 5mg PO QD -will consider continuing Aldactone after checking K+ tomorrow and discussing with nephro 3. 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 NSTEMI -stable -Continue with aspirin 81 mg daily, Plavix 75 mg daily, Coreg 3.125mg PO Q12, Heparin 5,000 units SC BID -Not a good candidate for MAN inhibitor due to impaired renal function -Troponin elevated (serial measurement :0.285, 0.549, 0.384, 0.326) -Cardiology on board, consult appreciated Dr. Miles: f/u recommendations 5. Systolic CHF with Acute Exacerbation -Echo 04/02/17: LVEF 30-35%, with generalized moderate hypokinesia particularly pronounced in the septum -Cardio consult appreciated Dr. Miles: patient is not a suitable candidate for invasive cardiac workup, recommend continue with Coreg 3.125mg Q12, SC Heparin 5,000 units BID, Lipitor 20 mg PO QD, Zosyn 2.25mg IV Q8, Plavix 75mg QD -Increased Lasix to 80mg IVPB QD -ProBNP: improved to 87,400 (04/05/17) from 167,000 (04/02/17) -Not a good candidate for MAN-i due to impaired renal function -Strict I/Os. Daily weights. 6. 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 pt voiding small amounts and on HD as needed (thus far had HD on Tue 04/04/Thur 04/06 /Sat 04/08 and Mon 04/10 7. 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 HTN -uncontrolled, likely due to medication non-adherence and worsening renal function -Cardio consult appreciated Dr. Miles: continue with Hydralazine, Clonidine , Norvasc -Hydralazine 50 mg TID 9. DVT Prophylaxis -SCDs -Heparin 5000 units SC BID
[2017-04-12] MEDS: Nitroglycerin 2% 15 INCH/30 GM TUBE TOP SCH ×4 (01:03→20:50)
[2017-04-12 07:18] LABS: MEAN CELL VOLUME 89.4 fl (80.0-94.0); MEAN CORPUSCULAR HEMOGLOBIN 28.8 pg (27.0-31.0); MEAN CORPUSCULAR HGB CONC 32.2 g/dL (33.0-37.0); RBC 3.48 Mil/uL (4.40-5.90); RED CELL DISTRIBUTION WIDTH 17.7 % (11.5-14.5); WHITE BLOOD COUNT 16.8 K/uL (4.8-10.8)
[2017-04-12 07:41] LABS: CALCIUM 7.6 mg/dL (8.4-10.2)
[2017-04-12] MEDS: Fluticasone-Salmeterol 500-50mcg Diskus IH SCH ×2 (08:22→20:49)
[2017-04-12] MEDS: Sevelamer Carb 0.8 gm/Packet PO SCH ×3 (08:23→16:45)
[2017-04-12] MEDS: Epoetin Alfa 4000 UNIT/ML Inj IV SCH (08:25)
[2017-04-12] MEDS: Pantoprazole 40 mg EC Tab PO SCH (08:25)
[2017-04-12] MEDS: Multivitamin Vitamin B Complex (Nephro-Vite) Tab PO SCH (08:26)
[2017-04-12] MEDS: metOLazone 5 MG TAB PO SCH (08:27)
--- NOTE | 2017-04-12 10:53 | CP.PCM.PN ---
Subjective - Date & Time of Evaluation Date of Evaluation: 04/12/17 Time of Evaluation: 07:45 - Subjective Subjective: Patient seen and examined at bedside, sitting in bed eating breakfast. Reports he tolerated hemodialysis well last night, has good appetite, normal bowel movement, voiding small amounts of urine and ambulating without difficulty. Denies SOB, weakness or dizziness. Patient notes diffuse body swelling has not improved despite diuretic treatment. Objective - Vital Signs/Intake and Output Vital Signs (last 24 hours): Temp Pulse Resp BP Pulse Ox 98.2 F 63 20 158/73 H 91 L 04/12/17 07:54 04/12/17 08:26 04/12/17 07:54 04/12/17 08:26 04/12/17 07:54 - Medications Medications: Current Medications Amlodipine Besylate (Norvasc) 10 mg PO DAILY [facility] Last Admin: 04/12/17 08:24 Dose: 10 mg Aspirin (Aspirin Chewable) 81 mg PO DAILY [facility] Last Admin: 04/12/17 08:24 Dose: 81 mg Atorvastatin Calcium (Lipitor) 20 mg PO HS [facility] Last Admin: 04/11/17 21:05 Dose: 20 mg Carvedilol (Coreg) 3.125 mg PO Q12 [facility] Last Admin: 04/12/17 08:26 Dose: 3.125 mg Citalopram Hydrobromide (Celexa) 20 mg PO DAILY [facility] Last Admin: 04/12/17 08:27 Dose: 20 mg Clonidine HCl (Catapres) 0.3 mg PO BID [facility] Last Admin: 04/12/17 08:25 Dose: 0.3 mg Clopidogrel Bisulfate (Plavix) 75 mg PO DAILY [facility] Last Admin: 04/12/17 08:24 Dose: 75 mg Epoetin [place] (Procrit) 4,000 unit IV TTS [facility] Stop: 04/18/17 09:01 Ergocalciferol (Drisdol 50,000 Intl Units Cap) 1 cap PO Q7D [facility] Last Admin: 04/08/17 20:26 Dose: 1 cap Furosemide (Lasix) 80 mg IVP DAILY [facility] Guaifenesin/Dextromethorphan (Robitussin Dm) 10 ml PO Q4 PRN PRN Reason: Cough Heparin Sodium (Porcine) (Heparin) 5,000 units SC Q12 [facility] PRN Reason: Protocol Last Admin: 04/12/17 08:26 Dose: 5,000 units Hydralazine HCl (Apresoline) 50 mg PO TID [facility] Last Admin: 04/12/17 08:24 Dose: 50 mg Piperacillin Sod/Tazobactam (Sod 2.25 gm/ Sodium Chloride) 100 mls @ 100 mls/ hr IVPB Q8 [facility] Last Admin: 04/12/17 08:28 Dose: 100 mls/hr Ipratropium [place] (Atrovent) 0.5 mg IH RQ6 PRN PRN Reason: Wheezing Metolazone (Zaroxolyn) 5 mg PO DAILY [facility] Last Admin: 04/12/17 08:27 Dose: 5 mg Nitroglycerin (Nitro-Bid 2% Oint) 1 inch TOP Q6H [facility] Last Admin: 04/12/17 05:59 Dose: 1 inch Pantoprazole Sodium (Protonix Ec Tab) 40 mg PO DAILY [facility] Last Admin: 04/12/17 08:25 Dose: 40 mg Fluticasone/Salmeterol (Advair Diskus 500/50) 1 puff IH Q12 [facility] Last Admin: 04/12/17 08:22 Dose: 1 puff Sevelamer Carbonate (Renvela) 1.6 gm PO TIDWM [facility] Last Admin: 04/12/17 08:23 Dose: 1.6 gm Sodium Bicarbonate (Sodium Bicarbonate Tab) 650 mg PO BID [facility] Last Admin: 04/12/17 08:26 Dose: 650 mg Vitamin B Complex/Vit C/Folic Acid (Nephro-Yemi) 1 tab PO DAILY [facility] Last Admin: 04/12/17 08:26 Dose: 1 tab - Labs Labs: 04/12/17 05:50 04/12/17 05:50 APTT 55.3 SECONDS (23.3-32.5) H 04/04/17 04:35 - Constitutional Appears: Well, Non-toxic, No Acute Distress - Head Exam Head Exam: ATRAUMATIC, NORMOCEPHALIC - Eye Exam Eye Exam: EOMI, PERRL - ENT Exam ENT Exam: Mucous Membranes Moist - Neck Exam Neck Exam: Full ROM. absent: Lymphadenopathy - Respiratory Exam Respiratory Exam: Clear to Ausculation Bilateral, NORMAL BREATHING PATTERN. absent: Rales, Rhonchi - Cardiovascular Exam Cardiovascular Exam: REGULAR RHYTHM, +S1, +S2 - GI/Abdominal Exam GI & Abdominal Exam: Soft (obese), Normal Bowel Sounds. absent: Distended, Tenderness - Exam Exam: Scrotal Swelling (, penile swelling unchanged) - Extremities Exam Extremities Exam: Full ROM, Pedal Edema (+3 bilateral up to knees, notable stasis dermatitis ) - Back Exam Back Exam: absent: CVA tenderness (L), CVA tenderness (R) - Neurological Exam Neurological Exam: Alert, Awake, CN II-XII Intact, Normal Gait, Oriented x3 - Psychiatric Exam Psychiatric exam: Normal Affect, Normal Mood - Skin Skin Exam: Dry, Intact, Warm Assessment and Plan - Assessment and Plan (Free Text) Assessment: 67 yr old M admitted for respiratory distress and found to have Acute on Chronic Kidney Injury and CHF exacerbation, with PMHx of HTN, COPD, CKD, 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 Patient was found to have NSTEMI. He received hemodialysis + 2 units pRBC's for first time on 04/04/17. Blood culture negative x 5 days, Urine culture negative. 2nd session of hemodialysis + 1 unit pRBC's on 04/06/17 . Echo 04/02/17: Systolic CHF with LVEF 30-35%. HD, Cytoxan tx as per protocol was given 04/10/17, patient had HD on 04/11/17 in evening as well. Diffuse anasarca unchanged. Patient stable. 1. Respiratory Distress -Improving, O2 saturation 91% on room air, pt comfortable this AM -Likely 2dary to acute CHF Exacerbation vs NSTEMI vs acute on CKD vs multifocal PNA -CXR 04/03/17: multifocal hazy opacities increased bilaterally in lungs compared to prior CXR, left sided pleural effusion, dx includes edema,hemorrhage, multifocal PNA -CT Chest 04/04/17: Large bilateral pleural effusions, compressive atelectasis and upper lobe infiltrates, cardiomegaly, pericardial effusion-correlate for CHF -ID consult appreciated, Dr. Silver: follow recommendations -Prednisone 40mg PO QD -Zosyn 2.25mg IVPB Q8 (on Day 10)-will discuss with ID when to d/c -f/u repeat CXR 2. Diffuse Anasarca -unchanged -likely secondary to CHF and CKD -CT Abd and Pelvis: severe diffuse anasarca, unremarkable appearance of urinary bladder, no focal or diffuse -Urology consult appreciated Dr. Henley: follow recommendations -diuretic management: lasix, Metolazone 5mg PO QD, resumed Aldactone 50 mg PO QD 3. 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 NSTEMI -stable -Continue with aspirin 81 mg daily, Plavix 75 mg daily, Coreg 3.125mg PO Q12, Heparin 5,000 units SC BID -Not a good candidate for MAN inhibitor due to impaired renal function -Troponin elevated (serial measurement :0.285, 0.549, 0.384, 0.326) -Cardiology on board, consult appreciated Dr. Miles: f/u recommendations 5. Systolic CHF with Acute Exacerbation -Echo 04/02/17: LVEF 30-35%, with generalized moderate hypokinesia particularly pronounced in the septum -Cardio consult appreciated Dr. Miles: patient is not a suitable candidate for invasive cardiac workup, recommend continue with Coreg 3.125mg Q12, SC Heparin 5,000 units BID, Lipitor 20 mg PO QD, Zosyn 2.25mg IV Q8, Plavix 75mg QD -Lasix 80mg IVPB QD -ProBNP: improved to 87,400 (04/05/17) from 167,000 (04/02/17) -Not a good candidate for MAN-i due to impaired renal function -Strict I/Os. Daily weights. 6. 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 pt voiding small amounts and on HD as needed (had HD in evening) 7. Hx of RUE DVT -RUE DVT detected on 02/04/17 however patient was not a good candidate for [employer] anticoagulation -D-dimer also elevated at admission but of undetermined significance -B/L upper extremities US showed partial compression of the right basilic vein, possible due to a chronic thrombus -B/L lower extremities US showed no evidence of DVT -Discontinued Heparin drip ( for therapeutic management of ACS), was stopped because dropped in H/H -continue anticoagulation as above 8. HTN -uncontrolled, likely due to medication non-adherence and worsening renal function -Cardio consult appreciated Dr. Miles: continue with Hydralazine, Clonidine , Norvasc -Hydralazine 50 mg PO TID, resumed Aldactone 50mg PO QD 9. DVT Prophylaxis -SCDs -Heparin 5000 units SC BID
--- NOTE | 2017-04-12 11:19 | CP.PCM.PN ---
Subjective - Date & Time of Evaluation Date of Evaluation: 04/12/17 Time of Evaluation: 11:13 - Subjective Subjective: Plan of care has been discussed with the resident Dr. Barfield regarding dialysis outpatient and the Cytoxan every 4 weeks 3 more doses to come And to cut down the steroid to taper it down And the prognosis is guarded patient is not responding urine output still poor despite large doses of diuretic and to be switched to oral medication. Patient most likely will continue to need dialysis. And to have social work msw involved to arrange for outpatient dialysis and management of his oral medication as outpatient. Objective - Vital Signs/Intake and Output Vital Signs (last 24 hours): Temp Pulse Resp BP Pulse Ox 98.2 F 63 20 158/73 H 91 L 04/12/17 07:54 04/12/17 08:26 04/12/17 07:54 04/12/17 08:26 04/12/17 07:54 - Medications Medications: Current Medications Amlodipine Besylate (Norvasc) 10 mg PO DAILY [facility] Last Admin: 04/12/17 08:24 Dose: 10 mg Aspirin (Aspirin Chewable) 81 mg PO DAILY [facility] Last Admin: 04/12/17 08:24 Dose: 81 mg Atorvastatin Calcium (Lipitor) 20 mg PO HS [facility] Last Admin: 04/11/17 21:05 Dose: 20 mg Carvedilol (Coreg) 3.125 mg PO Q12 [facility] Last Admin: 04/12/17 08:26 Dose: 3.125 mg Citalopram Hydrobromide (Celexa) 20 mg PO DAILY [facility] Last Admin: 04/12/17 08:27 Dose: 20 mg Clonidine HCl (Catapres) 0.3 mg PO BID [facility] Last Admin: 04/12/17 08:25 Dose: 0.3 mg Clopidogrel Bisulfate (Plavix) 75 mg PO DAILY [facility] Last Admin: 04/12/17 08:24 Dose: 75 mg Epoetin José Manuel (Procrit) 4,000 unit IV TTS [facility] Stop: 04/18/17 09:01 Ergocalciferol (Drisdol 50,000 Intl Units Cap) 1 cap PO Q7D [facility] Last Admin: 04/08/17 20:26 Dose: 1 cap Furosemide (Lasix) 80 mg IVP DAILY [facility] Guaifenesin/Dextromethorphan (Robitussin Dm) 10 ml PO Q4 PRN PRN Reason: Cough Heparin Sodium (Porcine) (Heparin) 5,000 units SC Q12 [facility] PRN Reason: Protocol Last Admin: 04/12/17 08:26 Dose: 5,000 units Hydralazine HCl (Apresoline) 50 mg PO TID [facility] Last Admin: 04/12/17 08:24 Dose: 50 mg Piperacillin Sod/Tazobactam (Sod 2.25 gm/ Sodium Chloride) 100 mls @ 100 mls/ hr IVPB Q8 [facility] Last Admin: 04/12/17 08:28 Dose: 100 mls/hr Ipratropium [place] (Atrovent) 0.5 mg IH RQ6 PRN PRN Reason: Wheezing Metolazone (Zaroxolyn) 5 mg PO DAILY [facility] Last Admin: 04/12/17 08:27 Dose: 5 mg Nitroglycerin (Nitro-Bid 2% Oint) 1 inch TOP Q6H [facility] Last Admin: 04/12/17 05:59 Dose: 1 inch Pantoprazole Sodium (Protonix Ec Tab) 40 mg PO DAILY [facility] Last Admin: 04/12/17 08:25 Dose: 40 mg Fluticasone/Salmeterol (Advair Diskus 500/50) 1 puff IH Q12 [facility] Last Admin: 04/12/17 08:22 Dose: 1 puff Sevelamer Carbonate (Renvela) 1.6 gm PO TIDWM [facility] Last Admin: 04/12/17 08:23 Dose: 1.6 gm Sodium Bicarbonate (Sodium Bicarbonate Tab) 650 mg PO BID [facility] Last Admin: 04/12/17 08:26 Dose: 650 mg Vitamin B Complex/Vit C/Folic Acid (Nephro-Yemi) 1 tab PO DAILY [facility] Last Admin: 04/12/17 08:26 Dose: 1 tab - Labs Labs: 04/12/17 05:50 04/12/17 05:50 APTT 55.3 SECONDS (23.3-32.5) H 04/04/17 04:35 Assessment and Plan (1) Acute on chronic renal failure Status: Acute (2) Acute systolic congestive heart failure Status: Acute
--- NOTE | 2017-04-12 14:57 | RAD ---
HISTORY: hx of bilateral pleural effusions COMPARISON: Chest x-ray performed 04/03/17, lung bases on CT of the abdomen and pelvis performed 04/06/17 TECHNIQUE: Chest PA and lateral FINDINGS: Right-sided PICC extends expected location of the distal SVC. Right-sided central venous catheter also extends to the SVC. LUNGS: Small left pleural effusion and associated atelectasis or infiltrate. Subtle infiltrate at the right lung base. No definite pneumothorax. Please note that chest x-ray has limited sensitivity for the detection of pulmonary masses. CARDIOVASCULAR: Borderline cardiomegaly. OSSEOUS STRUCTURES: Degenerative changes. VISUALIZED UPPER ABDOMEN: Unremarkable. OTHER FINDINGS: None. IMPRESSION: Right-sided PICC extends expected location of the distal SVC. Right-sided central venous catheter also extends to the SVC. Small left pleural effusion and associated atelectasis or infiltrate. Subtle infiltrate at the right lung base.
--- NOTE | 2017-04-12 18:42 | CP.PCM.PN ---
Subjective - Date & Time of Evaluation Date of Evaluation: 04/12/17 Time of Evaluation: 09:00 - Subjective Subjective: cultures thus far neg iv rx to be completed at 7 days then reculture Objective - Vital Signs/Intake and Output Vital Signs (last 24 hours): Temp Pulse Resp BP Pulse Ox 98.5 F 82 20 143/70 95 04/12/17 16:14 04/12/17 16:45 04/12/17 16:14 04/12/17 16:45 04/12/17 16:14 - Medications Medications: Current Medications Amlodipine Besylate (Norvasc) 10 mg PO DAILY [facility] Last Admin: 04/12/17 08:24 Dose: 10 mg Aspirin (Aspirin Chewable) 81 mg PO DAILY [facility] Last Admin: 04/12/17 08:24 Dose: 81 mg Atorvastatin Calcium (Lipitor) 20 mg PO HS [facility] Last Admin: 04/11/17 21:05 Dose: 20 mg Carvedilol (Coreg) 3.125 mg PO Q12 [facility] Last Admin: 04/12/17 08:26 Dose: 3.125 mg Citalopram Hydrobromide (Celexa) 20 mg PO DAILY [facility] Last Admin: 04/12/17 08:27 Dose: 20 mg Clonidine HCl (Catapres) 0.3 mg PO BID [facility] Last Admin: 04/12/17 16:45 Dose: 0.3 mg Clopidogrel Bisulfate (Plavix) 75 mg PO DAILY [facility] Last Admin: 04/12/17 08:24 Dose: 75 mg Epoetin José Manuel (Procrit) 4,000 unit IV TTS [facility] Stop: 04/18/17 09:01 Ergocalciferol (Drisdol 50,000 Intl Units Cap) 1 cap PO Q7D [facility] Last Admin: 04/08/17 20:26 Dose: 1 cap Furosemide (Lasix) 80 mg IVP DAILY [facility] Last Admin: 04/12/17 11:56 Dose: Not Given Guaifenesin/Dextromethorphan (Robitussin Dm) 10 ml PO Q4 PRN PRN Reason: Cough Heparin Sodium (Porcine) (Heparin) 5,000 units SC Q12 [facility] PRN Reason: Protocol Last Admin: 04/12/17 08:26 Dose: 5,000 units Hydralazine HCl (Apresoline) 50 mg PO TID [facility] Last Admin: 04/12/17 16:44 Dose: 50 mg Ipratropium [place] (Atrovent) 0.5 mg IH RQ6 PRN PRN Reason: Wheezing Metolazone (Zaroxolyn) 5 mg PO DAILY [facility] Last Admin: 04/12/17 08:27 Dose: 5 mg Nitroglycerin (Nitro-Bid 2% Oint) 1 inch TOP Q6H [facility] Last Admin: 04/12/17 12:08 Dose: 1 inch Pantoprazole Sodium (Protonix Ec Tab) 40 mg PO DAILY [facility] Last Admin: 04/12/17 08:25 Dose: 40 mg Prednisone (Prednisone Tab) 40 mg PO DAILY [facility] Last Admin: 04/12/17 12:06 Dose: 40 mg Fluticasone/Salmeterol (Advair Diskus 500/50) 1 puff IH Q12 [facility] Last Admin: 04/12/17 08:22 Dose: 1 puff Sevelamer Carbonate (Renvela) 1.6 gm PO TIDWM [facility] Last Admin: 04/12/17 16:45 Dose: 1.6 gm Sodium Bicarbonate (Sodium Bicarbonate Tab) 650 mg PO BID [facility] Last Admin: 04/12/17 16:44 Dose: 650 mg Spironolactone (Aldactone) 50 mg PO DAILY [facility] Last Admin: 04/12/17 12:08 Dose: 50 mg Vitamin B Complex/Vit C/Folic Acid (Nephro-Yemi) 1 tab PO DAILY [facility] Last Admin: 04/12/17 08:26 Dose: 1 tab - Labs Labs: 04/12/17 05:50 04/12/17 05:50 APTT 55.3 SECONDS (23.3-32.5) H 04/04/17 04:35 - Constitutional Appears: Chronically Ill - Head Exam Head Exam: NORMOCEPHALIC - Eye Exam Eye Exam: PERRL. absent: Scleral icterus - ENT Exam ENT Exam: Mucous Membranes Dry - Neck Exam Neck Exam: absent: Lymphadenopathy - Respiratory Exam Respiratory Exam: Decreased Breath Sounds, Rhonchi - Cardiovascular Exam Cardiovascular Exam: REGULAR RHYTHM - GI/Abdominal Exam GI & Abdominal Exam: Distended, Soft Assessment and Plan (1) Acute on chronic renal failure Status: Acute (2) Acute systolic congestive heart failure Status: Acute (3) CHF (congestive heart failure) Status: Acute (4) NSTEMI (non-ST elevated myocardial infarction) Status: Acute
[2017-04-13] MEDS: Nitroglycerin 2% 15 INCH/30 GM TUBE TOP SCH ×5 (02:42→20:26)
[2017-04-13] MEDS: Fluticasone-Salmeterol 500-50mcg Diskus IH SCH ×2 (08:42→20:15)
[2017-04-13] MEDS: Multivitamin Vitamin B Complex (Nephro-Vite) Tab PO SCH (08:43)
[2017-04-13] MEDS: metOLazone 5 MG TAB PO SCH (08:44)
[2017-04-13] MEDS: Pantoprazole 40 mg EC Tab PO SCH (08:44)
[2017-04-13] MEDS: Sevelamer Carb 0.8 gm/Packet PO SCH ×3 (08:45→17:14)
[2017-04-13] MEDS ORDERED: Epoetin Alfa 4000 UNIT/ML Inj IV SCH (09:00)
--- NOTE | 2017-04-13 10:42 | CP.PCM.PN ---
Subjective - Date & Time of Evaluation Date of Evaluation: 04/13/17 Time of Evaluation: 07:10 - Subjective Subjective: Patient seen and examined at bedside, laying comfortably in bed, with normal O2 saturation on room air. Patient reports good appetite, normal stool output, minimal urine output. Patient is aware he is getting hemodialysis today. Had bilateral leg pain last night for which he received Tylenol, pain has resolved. Has no concerns or complaints at this time. Objective - Vital Signs/Intake and Output Vital Signs (last 24 hours): Temp Pulse Resp BP Pulse Ox 98.6 F 75 18 164/86 H 99 04/13/17 08:23 04/13/17 08:23 04/13/17 08:23 04/13/17 08:23 04/13/17 08:23 - Medications Medications: Current Medications Amlodipine Besylate (Norvasc) 10 mg PO DAILY [facility] Last Admin: 04/12/17 08:24 Dose: 10 mg Aspirin (Aspirin Chewable) 81 mg PO DAILY [facility] Last Admin: 04/13/17 08:46 Dose: 81 mg Atorvastatin Calcium (Lipitor) 20 mg PO HS [facility] Last Admin: 04/12/17 22:00 Dose: 20 mg Carvedilol (Coreg) 3.125 mg PO Q12 [facility] Last Admin: 04/12/17 20:49 Dose: 3.125 mg Citalopram Hydrobromide (Celexa) 20 mg PO DAILY [facility] Last Admin: 04/13/17 08:43 Dose: 20 mg Clonidine HCl (Catapres) 0.3 mg PO BID [facility] Last Admin: 04/12/17 16:45 Dose: 0.3 mg Clopidogrel Bisulfate (Plavix) 75 mg PO DAILY [facility] Last Admin: 04/13/17 08:44 Dose: 75 mg Epoetin José Manuel (Procrit) 4,000 unit IV TTS [facility] Stop: 04/18/17 09:01 Last Admin: 04/13/17 10:34 Dose: 4,000 unit Ergocalciferol (Drisdol 50,000 Intl Units Cap) 1 cap PO Q7D [facility] Last Admin: 04/08/17 20:26 Dose: 1 cap Furosemide (Lasix) 80 mg IVP DAILY [facility] Last Admin: 04/12/17 11:56 Dose: Not Given Guaifenesin/Dextromethorphan (Robitussin Dm) 10 ml PO Q4 PRN PRN Reason: Cough Heparin Sodium (Porcine) (Heparin) 5,000 units SC Q12 [facility] PRN Reason: Protocol Last Admin: 04/13/17 10:34 Dose: 5,000 units Hydralazine HCl (Apresoline) 50 mg PO TID [facility] Last Admin: 04/12/17 16:44 Dose: 50 mg Ipratropium [place] (Atrovent) 0.5 mg IH RQ6 PRN PRN Reason: Wheezing Metolazone (Zaroxolyn) 5 mg PO DAILY [facility] Last Admin: 04/13/17 08:44 Dose: 5 mg Nitroglycerin (Nitro-Bid 2% Oint) 1 inch TOP Q6H [facility] Last Admin: 04/13/17 06:02 Dose: 1 inch Pantoprazole Sodium (Protonix Ec Tab) 40 mg PO DAILY [facility] Last Admin: 04/13/17 08:44 Dose: 40 mg Prednisone (Prednisone Tab) 40 mg PO DAILY [facility] Last Admin: 04/13/17 08:45 Dose: 40 mg Fluticasone/Salmeterol (Advair Diskus 500/50) 1 puff IH Q12 [facility] Last Admin: 04/13/17 08:42 Dose: 1 puff Sevelamer Carbonate (Renvela) 1.6 gm PO TIDWM [facility] Last Admin: 04/13/17 08:45 Dose: 1.6 gm Sodium Bicarbonate (Sodium Bicarbonate Tab) 650 mg PO BID [facility] Last Admin: 04/13/17 08:46 Dose: 650 mg Spironolactone (Aldactone) 50 mg PO DAILY [facility] Last Admin: 04/13/17 08:45 Dose: 50 mg Vitamin B Complex/Vit C/Folic Acid (Nephro-Yemi) 1 tab PO DAILY [facility] Last Admin: 04/13/17 08:43 Dose: 1 tab - Labs Labs: 04/12/17 05:50 04/12/17 05:50 APTT 55.3 SECONDS (23.3-32.5) H 04/04/17 04:35 - Constitutional Appears: Well, No Acute Distress - Head Exam Head Exam: ATRAUMATIC, NORMOCEPHALIC - Eye Exam Eye Exam: EOMI, PERRL - ENT Exam ENT Exam: Mucous Membranes Moist - Neck Exam Neck Exam: Full ROM. absent: Lymphadenopathy - Respiratory Exam Respiratory Exam: Rhonchi (bilateral mild in lower lobes), NORMAL BREATHING PATTERN - Cardiovascular Exam Cardiovascular Exam: REGULAR RHYTHM, +S1, +S2 - GI/Abdominal Exam GI & Abdominal Exam: Soft (obese), Normal Bowel Sounds. absent: Distended, Tenderness - Exam Exam: Scrotal Swelling ( and penile swelling unchanged ) - Extremities Exam Extremities Exam: Full ROM, Pedal Edema (pitting +2 up to below knees, stasis dermatitis bilaterally). 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 Patient was found to have NSTEMI. Patient is currently receiving HD as needed. Blood culture negative x 5 days, Urine culture negative. Patient is s/p transfusion 3 units pRBC's. Echo 04/02/17: Systolic CHF with LVEF 30-35%. Cytoxan tx was given 04/10/17, pt needs 3 more tx (1 every 4 weeks). Diffuse anasarca unchanged. Patient receiving HD today, stable. 1. Respiratory Distress -Improving, O2 saturation comfortable on room air, pt comfortable this AM -Likely 2dary to acute CHF Exacerbation vs NSTEMI vs acute on CKD vs multifocal PNA -CXR 04/03/17: multifocal hazy opacities increased bilaterally in lungs compared to prior CXR, left sided pleural effusion, dx includes edema,hemorrhage, multifocal PNA -CT Chest 04/04/17: Large bilateral pleural effusions, compressive atelectasis and upper lobe infiltrates, cardiomegaly, pericardial effusion-correlate for CHF -ID consult appreciated, Dr. Silver: follow recommendations , d/c'd Zosyn (s/p 10 days tx) -Prednisone 40mg PO QD, will taper -CXR 04/12/17: Small left pleural effusion and associated atelectasis or infiltrate, subtle infiltrate at the right lung base 2. Diffuse Anasarca -unchanged -likely secondary to CHF and CKD -CT Abd and Pelvis: severe diffuse anasarca, unremarkable appearance of urinary bladder, no focal or diffuse -Urology consult appreciated Dr. Henley: follow recommendations -diuretic management: lasix, Metolazone 5mg PO QD, Aldactone 50 mg PO QD 3. 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 NSTEMI -stable -Continue with aspirin 81 mg daily, Plavix 75 mg daily, Coreg 3.125mg PO Q12, Heparin 5,000 units SC BID -Not a good candidate for MAN inhibitor due to impaired renal function -Troponin elevated (serial measurement :0.285, 0.549, 0.384, 0.326) -Cardiology on board, consult appreciated Dr. Miles: f/u recommendations 5. Systolic CHF with Acute Exacerbation -Echo 04/02/17: LVEF 30-35%, with generalized moderate hypokinesia particularly pronounced in the septum -Cardio consult appreciated Dr. Miles: patient is not a suitable candidate for invasive cardiac workup, recommend continue with Coreg 3.125mg Q12, SC Heparin 5,000 units BID, Lipitor 20 mg PO QD, Plavix 75mg QD -Lasix 80mg IVPB QD -ProBNP: improved to 87,400 (04/05/17) from 167,000 (04/02/17) -Not a good candidate for MAN-i due to impaired renal function -Strict I/Os. Daily weights. 6. 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 pt voiding small amounts and on HD as needed, has HD today 7. Hx of RUE DVT -RUE DVT detected on 02/04/17 however patient was not a good candidate for group home anticoagulation -D-dimer also elevated at admission but of undetermined significance -B/L upper extremities US showed partial compression of the right basilic vein, possible due to a chronic thrombus -B/L lower extremities US showed no evidence of DVT -Discontinued Heparin drip ( for therapeutic management of ACS), was stopped because dropped in H/H -continue anticoagulation as above 8. HTN -uncontrolled, likely due to medication non-adherence and worsening renal function -Cardio consult appreciated Dr. Miles: continue with Hydralazine, Clonidine , Norvasc -monitor BP 9. DVT Prophylaxis -SCDs -Heparin 5000 units SC BID
--- NOTE | 2017-04-13 11:05 | CP.PCM.PN ---
Subjective - Date & Time of Evaluation Date of Evaluation: 04/13/17 Time of Evaluation: 11:04 - Subjective Subjective: He was seen on hemodialysis Tolerating very well Vital sign stable Ultrafiltration 4000 mL to be removed Still have bilateral leg edema at least 2+ Continue fluid restriction And tapered down the steroid as discussed Objective - Vital Signs/Intake and Output Vital Signs (last 24 hours): Temp Pulse Resp BP Pulse Ox 98.6 F 75 18 164/86 H 99 04/13/17 08:23 04/13/17 08:23 04/13/17 08:23 04/13/17 08:23 04/13/17 08:23 - Medications Medications: Current Medications Amlodipine Besylate (Norvasc) 10 mg PO DAILY [facility] Last Admin: 04/12/17 08:24 Dose: 10 mg Aspirin (Aspirin Chewable) 81 mg PO DAILY [facility] Last Admin: 04/13/17 08:46 Dose: 81 mg Atorvastatin Calcium (Lipitor) 20 mg PO HS [facility] Last Admin: 04/12/17 22:00 Dose: 20 mg Carvedilol (Coreg) 3.125 mg PO Q12 [facility] Last Admin: 04/12/17 20:49 Dose: 3.125 mg Citalopram Hydrobromide (Celexa) 20 mg PO DAILY [facility] Last Admin: 04/13/17 08:43 Dose: 20 mg Clonidine HCl (Catapres) 0.3 mg PO BID [facility] Last Admin: 04/12/17 16:45 Dose: 0.3 mg Clopidogrel Bisulfate (Plavix) 75 mg PO DAILY [facility] Last Admin: 04/13/17 08:44 Dose: 75 mg Epoetin José Manuel (Procrit) 4,000 unit IV TTS [facility] Stop: 04/18/17 09:01 Last Admin: 04/13/17 10:34 Dose: 4,000 unit Ergocalciferol (Drisdol 50,000 Intl Units Cap) 1 cap PO Q7D [facility] Last Admin: 04/08/17 20:26 Dose: 1 cap Furosemide (Lasix) 80 mg IVP DAILY [facility] Last Admin: 04/12/17 11:56 Dose: Not Given Guaifenesin/Dextromethorphan (Robitussin Dm) 10 ml PO Q4 PRN PRN Reason: Cough Heparin Sodium (Porcine) (Heparin) 5,000 units SC Q12 [facility] PRN Reason: Protocol Last Admin: 04/13/17 10:34 Dose: 5,000 units Hydralazine HCl (Apresoline) 50 mg PO TID [facility] Last Admin: 04/12/17 16:44 Dose: 50 mg Ipratropium [place] (Atrovent) 0.5 mg IH RQ6 PRN PRN Reason: Wheezing Metolazone (Zaroxolyn) 5 mg PO DAILY [facility] Last Admin: 04/13/17 08:44 Dose: 5 mg Nitroglycerin (Nitro-Bid 2% Oint) 1 inch TOP Q6H [facility] Last Admin: 04/13/17 06:02 Dose: 1 inch Pantoprazole Sodium (Protonix Ec Tab) 40 mg PO DAILY [facility] Last Admin: 04/13/17 08:44 Dose: 40 mg Prednisone (Prednisone Tab) 40 mg PO DAILY [facility] Last Admin: 04/13/17 08:45 Dose: 40 mg Fluticasone/Salmeterol (Advair Diskus 500/50) 1 puff IH Q12 [facility] Last Admin: 04/13/17 08:42 Dose: 1 puff Sevelamer Carbonate (Renvela) 1.6 gm PO TIDWM [facility] Last Admin: 04/13/17 08:45 Dose: 1.6 gm Sodium Bicarbonate (Sodium Bicarbonate Tab) 650 mg PO BID [facility] Last Admin: 04/13/17 08:46 Dose: 650 mg Spironolactone (Aldactone) 50 mg PO DAILY [facility] Last Admin: 04/13/17 08:45 Dose: 50 mg Vitamin B Complex/Vit C/Folic Acid (Nephro-Yemi) 1 tab PO DAILY [facility] Last Admin: 04/13/17 08:43 Dose: 1 tab - Labs Labs: 04/12/17 05:50 04/12/17 05:50 APTT 55.3 SECONDS (23.3-32.5) H 04/04/17 04:35 Assessment and Plan (1) Acute on chronic renal failure Status: Acute (2) Acute systolic congestive heart failure Status: Acute
[2017-04-13 15:12] LABS: HEMOGLOBIN 10.2 g/dL (12.0-18.0); MEAN CELL VOLUME 88.8 fl (80.0-94.0); MEAN CORPUSCULAR HEMOGLOBIN 28.8 pg (27.0-31.0); MEAN CORPUSCULAR HGB CONC 32.4 g/dL (33.0-37.0); RBC 3.53 Mil/uL (4.40-5.90); RED CELL DISTRIBUTION WIDTH 18.2 % (11.5-14.5); WHITE BLOOD COUNT 14.5 K/uL (4.8-10.8)
[2017-04-13 15:24] LABS: CALCIUM 7.7 mg/dL (8.4-10.2)
[2017-04-14] MEDS: Nitroglycerin 2% 15 INCH/30 GM TUBE TOP SCH ×4 (01:00→19:51)
[2017-04-14 06:47] LABS: HEMOGLOBIN 8.1 g/dL (12.0-18.0); MEAN CELL VOLUME 89.1 fl (80.0-94.0); MEAN CORPUSCULAR HEMOGLOBIN 28.9 pg (27.0-31.0); MEAN CORPUSCULAR HGB CONC 32.4 g/dL (33.0-37.0); RBC 2.81 Mil/uL (4.40-5.90); RED CELL DISTRIBUTION WIDTH 18.2 % (11.5-14.5); WHITE BLOOD COUNT 11.4 K/uL (4.8-10.8)
[2017-04-14 07:06] LABS: CALCIUM 6.8 mg/dL (8.4-10.2)
[2017-04-14] MEDS: Pantoprazole 40 mg EC Tab PO SCH (09:00)
[2017-04-14] MEDS: Fluticasone-Salmeterol 500-50mcg Diskus IH SCH ×2 (09:00→21:37)
[2017-04-14] MEDS: metOLazone 5 MG TAB PO SCH (09:01)
[2017-04-14] MEDS: Sevelamer Carb 0.8 gm/Packet PO SCH ×3 (09:03→17:23)
[2017-04-14] MEDS: Multivitamin Vitamin B Complex (Nephro-Vite) Tab PO SCH (09:06)
[2017-04-14] MEDS ORDERED: Albuterol 0.083% Inhal Sol (2.5 mg/3 mL) UD INH STA (12:17)
--- NOTE | 2017-04-14 17:58 | CP.PCM.PN ---
Subjective - Date & Time of Evaluation Date of Evaluation: 04/14/17 Time of Evaluation: 07:40 - Subjective Subjective: Patient seen and examined at bedside, in no acute distress, breathing comfortably on room air. Denies chest pain, SOB, weakness, dizziness, headaches or palpitations. Patient is not content in regards to his abd and LE edema. Has no other concerns or complaints at this time. Objective - Vital Signs/Intake and Output Vital Signs (last 24 hours): Temp Pulse Resp BP Pulse Ox 98 F 77 20 141/74 97 04/14/17 16:05 04/14/17 16:05 04/14/17 16:05 04/14/17 17:24 04/14/17 16:05 - Medications Medications: Current Medications Amlodipine Besylate (Norvasc) 10 mg PO DAILY [facility] Last Admin: 04/14/17 09:00 Dose: 10 mg Aspirin (Aspirin Chewable) 81 mg PO DAILY [facility] Last Admin: 04/14/17 09:03 Dose: 81 mg Atorvastatin Calcium (Lipitor) 20 mg PO HS [facility] Last Admin: 04/13/17 22:28 Dose: 20 mg Carvedilol (Coreg) 3.125 mg PO Q12 [facility] Last Admin: 04/14/17 09:02 Dose: 3.125 mg Citalopram Hydrobromide (Celexa) 20 mg PO DAILY [facility] Last Admin: 04/14/17 09:05 Dose: 20 mg Clonidine HCl (Catapres) 0.3 mg PO BID [facility] Last Admin: 04/14/17 17:23 Dose: 0.3 mg Clopidogrel Bisulfate (Plavix) 75 mg PO DAILY [facility] Last Admin: 04/14/17 09:03 Dose: 75 mg Epoetin José Manuel (Procrit) 10,000 unit IV TTS [facility] Stop: 04/18/17 09:01 Ergocalciferol (Drisdol 50,000 Intl Units Cap) 1 cap PO Q7D [facility] Last Admin: 04/08/17 20:26 Dose: 1 cap Furosemide (Lasix) 80 mg IVP DAILY [facility] Last Admin: 04/14/17 09:06 Dose: 80 mg Guaifenesin/Dextromethorphan (Robitussin Dm) 10 ml PO Q4 PRN PRN Reason: Cough Heparin Sodium (Porcine) (Heparin) 5,000 units SC Q12 [facility] PRN Reason: Protocol Last Admin: 04/14/17 09:05 Dose: 5,000 units Hydralazine HCl (Apresoline) 50 mg PO TID [facility] Last Admin: 04/14/17 17:24 Dose: 50 mg Ipratropium [place] (Atrovent) 0.5 mg IH RQ6 PRN PRN Reason: Wheezing Metolazone (Zaroxolyn) 5 mg PO DAILY [facility] Last Admin: 04/14/17 09:01 Dose: 5 mg Nitroglycerin (Nitro-Bid 2% Oint) 1 inch TOP Q6H [facility] Last Admin: 04/14/17 13:26 Dose: 1 inch Pantoprazole Sodium (Protonix Ec Tab) 40 mg PO DAILY [facility] Last Admin: 04/14/17 09:00 Dose: 40 mg Prednisone (Prednisone Tab) 40 mg PO DAILY [facility] Last Admin: 04/14/17 09:01 Dose: 40 mg Fluticasone/Salmeterol (Advair Diskus 500/50) 1 puff IH Q12 [facility] Last Admin: 04/14/17 09:00 Dose: 1 puff Sevelamer Carbonate (Renvela) 1.6 gm PO TIDWM [facility] Last Admin: 04/14/17 17:23 Dose: 1.6 gm Sodium Bicarbonate (Sodium Bicarbonate Tab) 650 mg PO BID [facility] Last Admin: 04/14/17 17:22 Dose: 650 mg Spironolactone (Aldactone) 50 mg PO DAILY [facility] Last Admin: 04/14/17 09:02 Dose: 50 mg Vitamin B Complex/Vit C/Folic Acid (Nephro-Yemi) 1 tab PO DAILY [facility] Last Admin: 04/14/17 09:06 Dose: 1 tab - Labs Labs: 04/14/17 05:20 04/14/17 05:20 APTT 55.3 SECONDS (23.3-32.5) H 04/04/17 04:35 - Constitutional Appears: Well, Non-toxic, No Acute Distress - Head Exam Head Exam: ATRAUMATIC, NORMOCEPHALIC - Eye Exam Eye Exam: EOMI, PERRL - ENT Exam ENT Exam: Mucous Membranes Moist - Neck Exam Neck Exam: Full ROM. absent: Lymphadenopathy - Respiratory Exam Respiratory Exam: Rhonchi (minimal in bilateral LL). absent: Respiratory Distress - Cardiovascular Exam Cardiovascular Exam: REGULAR RHYTHM, +S1, +S2 - GI/Abdominal Exam GI & Abdominal Exam: Distended (mild), Soft (obese), Normal Bowel Sounds. absent: Tenderness - Exam Exam: Scrotal Swelling (and penile swelling unchanged) - Extremities Exam Extremities Exam: Full ROM, Pedal Edema (+3 up to knees). 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 Patient was found to have NSTEMI. Patient is currently receiving HD as needed. Blood culture negative x 5 days, Urine culture negative. Patient is s/p transfusion 3 units pRBC's. Echo 04/02/17: Systolic CHF with LVEF 30-35%. Cytoxan tx was given 04/10/17, pt needs 3 more tx (1 every 4 weeks). Diffuse anasarca unchanged. Patient had HD 04/13/17. Asymptomatic anemia H/H 8.1.1 this AM. 1. Respiratory Distress -Improving, O2 saturation comfortable on room air, pt comfortable this AM -Likely 2dary to acute CHF Exacerbation vs NSTEMI vs acute on CKD vs multifocal PNA -CXR 04/03/17: multifocal hazy opacities increased bilaterally in lungs compared to prior CXR, left sided pleural effusion, dx includes edema,hemorrhage, multifocal PNA -CT Chest 04/04/17: Large bilateral pleural effusions, compressive atelectasis and upper lobe infiltrates, cardiomegaly, pericardial effusion-correlate for CHF -ID consult appreciated, Dr. Silver: follow recommendations , d/c'd Zosyn (s/p 10 days tx) -Prednisone 40mg PO QD (day 3), will taper -CXR 04/12/17: Small left pleural effusion and associated atelectasis or infiltrate, subtle infiltrate at the right lung base 2. Diffuse Anasarca -unchanged -likely secondary to CHF and CKD -CT Abd and Pelvis: severe diffuse anasarca, unremarkable appearance of urinary bladder, no focal or diffuse -Urology consult appreciated Dr. Henley: follow recommendations -diuretic management: lasix, Metolazone 5mg PO QD, Aldactone 50 mg PO QD 3. 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 NSTEMI -stable -Continue with aspirin 81 mg daily, Plavix 75 mg daily, Coreg 3.125mg PO Q12, Heparin 5,000 units SC BID -Not a good candidate for MAN inhibitor due to impaired renal function -Troponin elevated (serial measurement :0.285, 0.549, 0.384, 0.326) -Cardiology on board, consult appreciated Dr. Miles: f/u recommendations 5. Systolic CHF with Acute Exacerbation -Echo 04/02/17: LVEF 30-35%, with generalized moderate hypokinesia particularly pronounced in the septum -Cardio consult appreciated Dr. Miles: patient is not a suitable candidate for invasive cardiac workup, recommend continue with Coreg 3.125mg Q12, SC Heparin 5,000 units BID, Lipitor 20 mg PO QD, Plavix 75mg QD -Lasix 80mg IVPB QD -ProBNP: improved to 87,400 (04/05/17) from 167,000 (04/02/17) -Not a good candidate for MAN-i due to impaired renal function -Strict I/Os. Daily weights. 6. 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 Hx of RUE DVT -RUE DVT detected on 02/04/17 however patient was not a good candidate for alf anticoagulation -D-dimer also elevated at admission but of undetermined significance -B/L upper extremities US showed partial compression of the right basilic vein, possible due to a chronic thrombus -B/L lower extremities US showed no evidence of DVT -Discontinued Heparin drip ( for therapeutic management of ACS), was stopped because dropped in H/H -continue anticoagulation as above 8. HTN -uncontrolled, likely due to medication non-adherence and worsening renal function -Cardio consult appreciated Dr. Miles: continue with Hydralazine, Clonidine , Norvasc -monitor BP 9. DVT Prophylaxis -SCDs -Heparin 5000 units SC BID
[2017-04-14 21:15] LABS: CREATININE, RANDOM URINE 50.6 mg/dL
[2017-04-15] MEDS: Nitroglycerin 2% 15 INCH/30 GM TUBE TOP SCH ×4 (01:24→19:09)
[2017-04-15 08:03] LABS: HEMOGLOBIN 7.9 g/dL (12.0-18.0); MEAN CELL VOLUME 88.5 fl (80.0-94.0); MEAN CORPUSCULAR HGB CONC 32.8 g/dL (33.0-37.0); RBC 2.71 Mil/uL (4.40-5.90); RED CELL DISTRIBUTION WIDTH 18.5 % (11.5-14.5); WHITE BLOOD COUNT 11.4 K/uL (4.8-10.8)
[2017-04-15 08:29] LABS: CALCIUM 6.6 mg/dL (8.4-10.2)
[2017-04-15] MEDS: Fluticasone-Salmeterol 500-50mcg Diskus IH SCH ×2 (08:47→21:05)
[2017-04-15] MEDS: Sevelamer Carb 0.8 gm/Packet PO SCH ×3 (08:48→16:39)
[2017-04-15] MEDS: Pantoprazole 40 mg EC Tab PO SCH (08:51)
[2017-04-15] MEDS: Multivitamin Vitamin B Complex (Nephro-Vite) Tab PO SCH (08:51)
[2017-04-15] MEDS: metOLazone 5 MG TAB PO SCH (08:52)
--- NOTE | 2017-04-15 13:47 | PN ---
DATE: 04/15/2017 The patient is currently undergoing hemodialysis. He denies chest pain or shortness of breath. PHYSICAL EXAMINATION: VITAL SIGNS: Blood pressure 164/90, heart rate 105, temperature 97.9, respirations 20. HEENT: Pale conjunctivae. CHEST: Bilateral rhonchi. HEART: S1, S2 regular. ABDOMEN: Soft. EXTREMITIES: 2+ pitting edema. LABORATORIES: Today's hemoglobin and hematocrit prior to hemodialysis is 7.9 and 24. White count an d platelet count are 11.4 and 160. Today's BUN and creatinine prior to hemodialysis is 75 and 3.3. Potassium is 6.6. ASSESSMENT: 1. Cardiomyopathy. 2. End-stage renal disease on hemodialysis. 3. Uncontrolled hypertension. 4. Anemia. RECOMMENDATIONS: Continue current Zaroxolyn at 5 mg once a day, prednisone at 40 mg once a day, Plav ix 75 mg once a day, Norvasc 10 mg once a day, Lasix at 80 mg intravenously daily, subcutaneous hepar in 5000 units twice a day. Increase Coreg to 6.25 mg twice a day. Consider initiating MAN inhibitor if cleared by remodeler. Hi Miles MD cc: [id number] TT: 04/15/2017 13:46:26 Confirmation # [id number] Dictation # [id number] [email or web address]
--- NOTE | 2017-04-15 14:32 | CP.PCM.PN ---
Subjective - Date & Time of Evaluation Date of Evaluation: 04/15/17 Time of Evaluation: 02:45 - Subjective Subjective: Seen on dialysis Appears comfortable Objective - Vital Signs/Intake and Output Vital Signs (last 24 hours): Temp Pulse Resp BP Pulse Ox 97.9 F 105 H 20 164/90 H 98 04/15/17 08:17 04/15/17 08:52 04/15/17 08:17 04/15/17 09:06 04/15/17 08:17 Intake and Output: 04/15/17 04/15/17 06:59 18:59 Output Total 400 Balance -400 - Medications Medications: Current Medications Amlodipine Besylate (Norvasc) 10 mg PO DAILY [facility] Last Admin: 04/15/17 08:48 Dose: 10 mg Aspirin (Aspirin Chewable) 81 mg PO DAILY [facility] Last Admin: 04/15/17 08:48 Dose: 81 mg Atorvastatin Calcium (Lipitor) 20 mg PO HS [facility] Last Admin: 04/14/17 21:38 Dose: 20 mg Carvedilol (Coreg) 6.25 mg PO Q12 [facility] Citalopram Hydrobromide (Celexa) 20 mg PO DAILY [facility] Last Admin: 04/15/17 08:52 Dose: 20 mg Clonidine HCl (Catapres) 0.3 mg PO BID [facility] Last Admin: 04/15/17 08:52 Dose: 0.3 mg Clopidogrel Bisulfate (Plavix) 75 mg PO DAILY [facility] Last Admin: 04/15/17 08:51 Dose: 75 mg Epoetin José Manuel (Procrit) 10,000 unit IV TTS [facility] Stop: 04/18/17 09:01 Ergocalciferol (Drisdol 50,000 Intl Units Cap) 1 cap PO Q7D [facility] Last Admin: 04/08/17 20:26 Dose: 1 cap Furosemide (Lasix) 80 mg IVP DAILY [facility] Last Admin: 04/15/17 09:06 Dose: 80 mg Guaifenesin/Dextromethorphan (Robitussin Dm) 10 ml PO Q4 PRN PRN Reason: Cough Heparin Sodium (Porcine) (Heparin) 5,000 units SC Q12 [facility] PRN Reason: Protocol Last Admin: 04/15/17 08:51 Dose: 5,000 units Hydralazine HCl (Apresoline) 50 mg PO TID [facility] Last Admin: 04/15/17 12:53 Dose: Not Given Ipratropium [place] (Atrovent) 0.5 mg IH RQ6 PRN PRN Reason: Wheezing Metolazone (Zaroxolyn) 5 mg PO DAILY [facility] Last Admin: 04/15/17 08:52 Dose: 5 mg Nitroglycerin (Nitro-Bid 2% Oint) 1 inch TOP Q6H [facility] Last Admin: 04/15/17 12:54 Dose: Not Given Pantoprazole Sodium (Protonix Ec Tab) 40 mg PO DAILY [facility] Last Admin: 04/15/17 08:51 Dose: 40 mg Prednisone (Prednisone Tab) 40 mg PO DAILY [facility] Last Admin: 04/15/17 08:48 Dose: 40 mg Fluticasone/Salmeterol (Advair Diskus 500/50) 1 puff IH Q12 [facility] Last Admin: 04/15/17 08:47 Dose: 1 puff Sevelamer Carbonate (Renvela) 1.6 gm PO TIDWM [facility] Last Admin: 04/15/17 12:54 Dose: 1.6 gm Sodium Bicarbonate (Sodium Bicarbonate Tab) 650 mg PO BID [facility] Last Admin: 04/15/17 08:49 Dose: 650 mg Spironolactone (Aldactone) 50 mg PO DAILY [facility] Last Admin: 04/15/17 08:52 Dose: 50 mg Vitamin B Complex/Vit C/Folic Acid (Nephro-Yemi) 1 tab PO DAILY [facility] Last Admin: 04/15/17 08:51 Dose: 1 tab - Labs Labs: 04/15/17 06:00 04/15/17 06:00 APTT 55.3 SECONDS (23.3-32.5) H 04/04/17 04:35 - Respiratory Exam Additional comments: Lungs clear - Cardiovascular Exam Cardiovascular Exam: REGULAR RHYTHM - Extremities Exam Additional comments: 2-3+ edema of both legs Assessment and Plan - Assessment and Plan (Free Text) Assessment: ESRD on HD [facility] GN Anemia CHF Plan: Continue HD per schedule Receiving 2 U PRBC with dialysis today
--- NOTE | 2017-04-15 14:55 | CP.PCM.PN ---
Subjective - Date & Time of Evaluation Date of Evaluation: 04/15/17 Time of Evaluation: 11:00 - Subjective Subjective: Patient seen and examined at bedside with attending during morning rounds. Patient reports SOB is improved compared to prior assessments but does appear slightly SOB on examination today, however with no signs of respiratory distress. He is able to speak in full sentences and denies fevers, chills or chest pain. He has been producing small amounts of urine. Hemoglobin this morning slightly decreased to 7.9 from 8.1 yesterday. Patient understands plan for transfusion with hemodialysis today. Objective - Vital Signs/Intake and Output Vital Signs (last 24 hours): Temp Pulse Resp BP Pulse Ox 97.9 F 105 H 20 164/90 H 98 04/15/17 08:17 04/15/17 08:52 04/15/17 08:17 04/15/17 09:06 04/15/17 08:17 Intake and Output: 04/15/17 04/15/17 06:59 18:59 Output Total 400 Balance -400 - Medications Medications: Current Medications Amlodipine Besylate (Norvasc) 10 mg PO DAILY [facility] Last Admin: 04/15/17 08:48 Dose: 10 mg Aspirin (Aspirin Chewable) 81 mg PO DAILY [facility] Last Admin: 04/15/17 08:48 Dose: 81 mg Atorvastatin Calcium (Lipitor) 20 mg PO HS [facility] Last Admin: 04/14/17 21:38 Dose: 20 mg Carvedilol (Coreg) 6.25 mg PO Q12 [facility] Citalopram Hydrobromide (Celexa) 20 mg PO DAILY [facility] Last Admin: 04/15/17 08:52 Dose: 20 mg Clonidine HCl (Catapres) 0.3 mg PO BID [facility] Last Admin: 04/15/17 08:52 Dose: 0.3 mg Clopidogrel Bisulfate (Plavix) 75 mg PO DAILY [facility] Last Admin: 04/15/17 08:51 Dose: 75 mg Epoetin José Manuel (Procrit) 10,000 unit IV TTS [facility] Stop: 04/18/17 09:01 Ergocalciferol (Drisdol 50,000 Intl Units Cap) 1 cap PO Q7D [facility] Last Admin: 04/08/17 20:26 Dose: 1 cap Furosemide (Lasix) 80 mg IVP DAILY [facility] Last Admin: 04/15/17 09:06 Dose: 80 mg Guaifenesin/Dextromethorphan (Robitussin Dm) 10 ml PO Q4 PRN PRN Reason: Cough Heparin Sodium (Porcine) (Heparin) 5,000 units SC Q12 [facility] PRN Reason: Protocol Last Admin: 04/15/17 08:51 Dose: 5,000 units Hydralazine HCl (Apresoline) 50 mg PO TID [facility] Last Admin: 04/15/17 12:53 Dose: Not Given Ipratropium [place] (Atrovent) 0.5 mg IH RQ6 PRN PRN Reason: Wheezing Metolazone (Zaroxolyn) 5 mg PO DAILY [facility] Last Admin: 04/15/17 08:52 Dose: 5 mg Nitroglycerin (Nitro-Bid 2% Oint) 1 inch TOP Q6H [facility] Last Admin: 04/15/17 12:54 Dose: Not Given Pantoprazole Sodium (Protonix Ec Tab) 40 mg PO DAILY [facility] Last Admin: 04/15/17 08:51 Dose: 40 mg Prednisone (Prednisone Tab) 40 mg PO DAILY [facility] Last Admin: 04/15/17 08:48 Dose: 40 mg Fluticasone/Salmeterol (Advair Diskus 500/50) 1 puff IH Q12 [facility] Last Admin: 04/15/17 08:47 Dose: 1 puff Sevelamer Carbonate (Renvela) 1.6 gm PO TIDWM [facility] Last Admin: 04/15/17 12:54 Dose: 1.6 gm Sodium Bicarbonate (Sodium Bicarbonate Tab) 650 mg PO BID [facility] Last Admin: 04/15/17 08:49 Dose: 650 mg Spironolactone (Aldactone) 50 mg PO DAILY [facility] Last Admin: 04/15/17 08:52 Dose: 50 mg Vitamin B Complex/Vit C/Folic Acid (Nephro-Yemi) 1 tab PO DAILY [facility] Last Admin: 04/15/17 08:51 Dose: 1 tab - Labs Labs: 04/15/17 06:00 04/15/17 06:00 APTT 55.3 SECONDS (23.3-32.5) H 04/04/17 04:35 - Constitutional Appears: Non-toxic, No Acute Distress - Head Exam Head Exam: ATRAUMATIC, NORMOCEPHALIC - Eye Exam Eye Exam: EOMI, PERRL - ENT Exam ENT Exam: Mucous Membranes Moist - Respiratory Exam Additional comments: B/L air entry present with scattered rhonchii present at lung bases b/l. No wheezing, retractions or respiratory distress present. Patient speaking in full sentences. - Cardiovascular Exam Cardiovascular Exam: REGULAR RHYTHM, +S1, +S2 - GI/Abdominal Exam GI & Abdominal Exam: Distended (mild ), Soft, Normal Bowel Sounds. absent: Tenderness, Rebound - Exam Exam: Scrotal Swelling - Extremities Exam Additional comments: B/L 3+ lower extremity pitting edema present up to knees. Chronic stasis dermatitis changes present b/l. 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 Patient was admitted to ICU from 04/02-04/06 for respiratory insufficiency likely secondary to acute exacerbation of systolic CHF and possible NSTEMI but remained stable for transfer to medical floor. Patient is currently receiving HD as needed for acute on chronic kidney disease and his exacerbation of systolic heart failure is improving. 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 Daily weights Respiratory Insufficiency -Likely secondary to acute CHF Exacerbation vs NSTEMI vs acute on CKD vs multifocal PNA -Patient continues to improve, satting well on room air -CXR performed on 04/12/17 reveals small left pleural effusion and associated atelectasis or infiltrate, subtle infiltrate at the right lung base -CT Chest 04/04/17: Large bilateral pleural effusions, compressive atelectasis and upper lobe infiltrates, cardiomegaly, pericardial effusion-correlate for CHF -ID consult appreciated, Dr. 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 Will transfuse 2 units pRBC with dialysis -Continue monitoring of H/H Diffuse Anasarca -Likely secondary to CHF and CKD -CT Abd and Pelvis: severe diffuse anasarca, unremarkable appearance of urinary bladder, no focal or diffuse -Urology consult appreciated Dr. Henley: follow recommendations -diuretic management: lasix, Metolazone 5mg PO QD, Aldactone 50 mg PO QD HTN -Uncontrolled, likely due to medication non-adherence and worsening renal function -Cardio consult appreciated Dr. Miles: continue with Hydralazine, Clonidine , Norvasc -Continue BP monitoring History of RUE DVT -RUE DVT detected on 02/04/17 however patient was not a good candidate for care home anticoagulation -D-dimer also elevated at admission but of undetermined significance -B/L upper extremities US showed partial compression of the right basilic vein, possible due to a chronic thrombus -B/L lower extremities US showed no evidence of DVT -Discontinued Heparin drip (for therapeutic management of ACS), was stopped because dropped in H/H DVT Prophylaxis -SCDs -Heparin 5000 units SC BID
[2017-04-15] MEDS: EPOETIN ALFA 10,000 UNIT/ML ML IV SCH ×2 (15:02→16:38)
[2017-04-15] MEDS: Ergocalciferol 50,000 Intl Units Cap PO SCH (16:40)
[2017-04-16] MEDS: Nitroglycerin 2% 15 INCH/30 GM TUBE TOP SCH ×4 (00:56→18:13)
[2017-04-16 05:56] LABS: HEMOGLOBIN 9.6 g/dL (12.0-18.0); MEAN CORPUSCULAR HEMOGLOBIN 28.5 pg (27.0-31.0); MEAN CORPUSCULAR HGB CONC 32.4 g/dL (33.0-37.0); RBC 3.36 Mil/uL (4.40-5.90); RED CELL DISTRIBUTION WIDTH 17.2 % (11.5-14.5); WHITE BLOOD COUNT 14.8 K/uL (4.8-10.8)
[2017-04-16 06:05] LABS: CALCIUM 6.6 mg/dL (8.4-10.2)
[2017-04-16] MEDS: Sevelamer Carb 0.8 gm/Packet PO SCH ×3 (08:13→16:44)
[2017-04-16] MEDS: Fluticasone-Salmeterol 500-50mcg Diskus IH SCH ×2 (08:14→20:42)
[2017-04-16] MEDS: Pantoprazole 40 mg EC Tab PO SCH (08:15)
[2017-04-16] MEDS: Multivitamin Vitamin B Complex (Nephro-Vite) Tab PO SCH (08:17)
[2017-04-16] MEDS: metOLazone 5 MG TAB PO SCH (08:20)
--- NOTE | 2017-04-16 10:32 | CP.PCM.PN ---
Subjective - Date & Time of Evaluation Date of Evaluation: 04/16/17 Time of Evaluation: 08:35 - Subjective Subjective: Patient seen and examined at bedside, in no acute distress. Denies chest pain, weakness, dizziness, palpitations. Is ambulating without difficulty, tolerating PO diet. Has no concerns or complaints at this time. Objective - Vital Signs/Intake and Output Vital Signs (last 24 hours): Temp Pulse Resp BP Pulse Ox 98.6 F 87 20 159/91 H 96 04/16/17 07:24 04/16/17 07:24 04/16/17 07:24 04/16/17 07:24 04/16/17 07:24 - Medications Medications: Current Medications Amlodipine Besylate (Norvasc) 10 mg PO DAILY [facility] Last Admin: 04/16/17 08:20 Dose: 10 mg Aspirin (Aspirin Chewable) 81 mg PO DAILY [facility] Last Admin: 04/16/17 08:18 Dose: 81 mg Atorvastatin Calcium (Lipitor) 20 mg PO HS [facility] Last Admin: 04/15/17 21:05 Dose: 20 mg Carvedilol (Coreg) 6.25 mg PO Q12 [facility] Last Admin: 04/16/17 08:16 Dose: 6.25 mg Citalopram Hydrobromide (Celexa) 20 mg PO DAILY [facility] Last Admin: 04/16/17 08:18 Dose: 20 mg Clonidine HCl (Catapres) 0.3 mg PO BID [facility] Last Admin: 04/16/17 08:18 Dose: 0.3 mg Clopidogrel Bisulfate (Plavix) 75 mg PO DAILY [facility] Last Admin: 04/16/17 08:15 Dose: 75 mg Epoetin José Manuel (Procrit) 10,000 unit IV TTS [facility] Stop: 04/18/17 09:01 Last Admin: 04/15/17 16:38 Dose: Not Given Ergocalciferol (Drisdol 50,000 Intl Units Cap) 1 cap PO Q7D [facility] Last Admin: 04/15/17 16:40 Dose: 1 cap Furosemide (Lasix) 80 mg IVP DAILY [facility] Last Admin: 04/15/17 09:06 Dose: 80 mg Guaifenesin/Dextromethorphan (Robitussin Dm) 10 ml PO Q4 PRN PRN Reason: Cough Heparin Sodium (Porcine) (Heparin) 5,000 units SC Q12 [facility] PRN Reason: Protocol Last Admin: 04/16/17 08:19 Dose: 5,000 units Hydralazine HCl (Apresoline) 50 mg PO TID [facility] Last Admin: 04/16/17 08:16 Dose: 50 mg Ipratropium [place] (Atrovent) 0.5 mg IH RQ6 PRN PRN Reason: Wheezing Metolazone (Zaroxolyn) 5 mg PO DAILY [facility] Last Admin: 04/16/17 08:20 Dose: 5 mg Nitroglycerin (Nitro-Bid 2% Oint) 1 inch TOP Q6H [facility] Last Admin: 04/16/17 06:05 Dose: 1 inch Pantoprazole Sodium (Protonix Ec Tab) 40 mg PO DAILY [facility] Last Admin: 04/16/17 08:15 Dose: 40 mg Prednisone (Prednisone Tab) 30 mg PO DAILY [facility] Fluticasone/Salmeterol (Advair Diskus 500/50) 1 puff IH Q12 [facility] Last Admin: 04/16/17 08:14 Dose: 1 puff Sevelamer Carbonate (Renvela) 1.6 gm PO TIDWM [facility] Last Admin: 04/16/17 08:13 Dose: 1.6 gm Sodium Bicarbonate (Sodium Bicarbonate Tab) 650 mg PO BID [facility] Last Admin: 04/16/17 08:16 Dose: 650 mg Spironolactone (Aldactone) 50 mg PO DAILY [facility] Last Admin: 04/16/17 08:17 Dose: 50 mg Vitamin B Complex/Vit C/Folic Acid (Nephro-Yemi) 1 tab PO DAILY [facility] Last Admin: 04/16/17 08:17 Dose: 1 tab - Labs Labs: 04/16/17 05:40 04/16/17 05:40 APTT 55.3 SECONDS (23.3-32.5) H 04/04/17 04:35 - Constitutional Appears: Well, No Acute Distress - Head Exam Head Exam: ATRAUMATIC, NORMOCEPHALIC - Eye Exam Eye Exam: EOMI, PERRL - ENT Exam ENT Exam: Mucous Membranes Moist - Neck Exam Neck Exam: Full ROM. absent: Lymphadenopathy - Respiratory Exam Respiratory Exam: Clear to Ausculation Bilateral, NORMAL BREATHING PATTERN - Cardiovascular Exam Cardiovascular Exam: REGULAR RHYTHM, +S1, +S2 - GI/Abdominal Exam GI & Abdominal Exam: Soft (obese), Normal Bowel Sounds. absent: Tenderness - Exam Exam: Scrotal Swelling (and penile swelling improved) - Extremities Exam Extremities Exam: Full ROM, Pedal Edema (pitting +3 up to knees, bilateral LE stasis dermatitis ) - Back Exam Back Exam: absent: CVA tenderness (L), CVA tenderness (R) - Neurological Exam Neurological Exam: Alert, Awake, CN II-XII Intact, Oriented x3 - Psychiatric Exam Psychiatric exam: Normal Affect, Normal Mood - Skin Skin Exam: Dry, Intact, Warm Assessment and Plan - Assessment and Plan (Free Text) Assessment: 67 yr old M admitted for respiratory distress and found to have Acute on Chronic Kidney Injury and CHF exacerbation, with PMHx of HTN, COPD, CKD, 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 Patient was found to have NSTEMI. Patient is currently receiving HD as needed. Blood culture negative x 5 days, Urine culture negative. Patient is s/p transfusion 5 units pRBC's. Echo 04/02/17: Systolic CHF with LVEF 30-35%. Cytoxan tx was given 04/10/17, pt needs 3 more tx (1 every 4 weeks). Diffuse anasarca improved. Patient had HD 04/15/17 with transfusion 2 units pRBC's. Asymptomatic anemia H/H 9.6/29.6 this AM. 1. 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 Diffuse Anasarca -improved -likely secondary to CHF and CKD -CT Abd and Pelvis: severe diffuse anasarca, unremarkable appearance of urinary bladder, no focal or diffuse -Urology consult appreciated Dr. Henley: follow recommendations -diuretic management: lasix, Metolazone 5mg PO QD, Aldactone 50 mg PO QD 3. COPD -stable O2 saturation comfortable on room air, pt comfortable this AM -Likely 2dary to acute CHF Exacerbation vs NSTEMI vs acute on CKD vs multifocal PNA -CXR 04/03/17: multifocal hazy opacities increased bilaterally in lungs compared to prior CXR, left sided pleural effusion, dx includes edema,hemorrhage, multifocal PNA -CT Chest 04/04/17: Large bilateral pleural effusions, compressive atelectasis and upper lobe infiltrates, cardiomegaly, pericardial effusion-correlate for CHF -ID consult appreciated, Dr. Silver: follow recommendations , d/c'd Zosyn (s/p 10 days tx) -will taper Prednisone 40 mg PO QD to 30mg PO QD tomorrow -CXR 04/12/17: Small left pleural effusion and associated atelectasis or infiltrate, subtle infiltrate at the right lung base 4. 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 Systolic CHF with Acute Exacerbation -Echo 04/02/17: LVEF 30-35%, with generalized moderate hypokinesia particularly pronounced in the septum -Cardio consult appreciated Dr. Miles: patient is not a suitable candidate for invasive cardiac workup, recommend continue with Coreg 3.125mg Q12, SC Heparin 5,000 units BID, Lipitor 20 mg PO QD, Plavix 75mg QD -Lasix 80mg IVPB QD -ProBNP: improved to 87,400 (04/05/17) from 167,000 (04/02/17) -Not a good candidate for MAN-i due to impaired renal function -Strict I/Os. Daily weights. 6. NSTEMI -stable -Continue with aspirin 81 mg daily, Plavix 75 mg daily, Coreg 3.125mg PO Q12, Heparin 5,000 units SC BID -Not a good candidate for MAN inhibitor due to impaired renal function -Troponin elevated (serial measurement :0.285, 0.549, 0.384, 0.326) -Cardiology on board, consult appreciated Dr. Miles: f/u recommendations 7. 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 HTN -uncontrolled, likely due to medication non-adherence and worsening renal function -Cardio consult appreciated Dr. Miles: continue with Hydralazine, Clonidine , Norvasc -monitor BP 9. DVT Prophylaxis -SCDs -Heparin 5000 units SC BID
--- NOTE | 2017-04-16 15:05 | CP.PCM.PN ---
Subjective - Date & Time of Evaluation Date of Evaluation: 04/16/17 Time of Evaluation: 02:45 - Subjective Subjective: Feels better today Objective - Vital Signs/Intake and Output Vital Signs (last 24 hours): Temp Pulse Resp BP Pulse Ox 98.6 F 87 20 159/91 H 96 04/16/17 07:24 04/16/17 07:24 04/16/17 07:24 04/16/17 12:04 04/16/17 07:24 - Medications Medications: Current Medications Amlodipine Besylate (Norvasc) 10 mg PO DAILY [facility] Last Admin: 04/16/17 08:20 Dose: 10 mg Aspirin (Aspirin Chewable) 81 mg PO DAILY [facility] Last Admin: 04/16/17 08:18 Dose: 81 mg Atorvastatin Calcium (Lipitor) 20 mg PO HS [facility] Last Admin: 04/15/17 21:05 Dose: 20 mg Carvedilol (Coreg) 6.25 mg PO Q12 [facility] Last Admin: 04/16/17 08:16 Dose: 6.25 mg Citalopram Hydrobromide (Celexa) 20 mg PO DAILY [facility] Last Admin: 04/16/17 08:18 Dose: 20 mg Clonidine HCl (Catapres) 0.3 mg PO BID [facility] Last Admin: 04/16/17 08:18 Dose: 0.3 mg Clopidogrel Bisulfate (Plavix) 75 mg PO DAILY [facility] Last Admin: 04/16/17 08:15 Dose: 75 mg Epoetin José Manuel (Procrit) 10,000 unit IV TTS [facility] Stop: 04/18/17 09:01 Last Admin: 04/15/17 16:38 Dose: Not Given Ergocalciferol (Drisdol 50,000 Intl Units Cap) 1 cap PO Q7D [facility] Last Admin: 04/15/17 16:40 Dose: 1 cap Furosemide (Lasix) 80 mg IVP DAILY [facility] Last Admin: 04/16/17 12:04 Dose: 80 mg Guaifenesin/Dextromethorphan (Robitussin Dm) 10 ml PO Q4 PRN PRN Reason: Cough Heparin Sodium (Porcine) (Heparin) 5,000 units SC Q12 [facility] PRN Reason: Protocol Last Admin: 04/16/17 08:19 Dose: 5,000 units Hydralazine HCl (Apresoline) 50 mg PO TID [facility] Last Admin: 04/16/17 12:05 Dose: 50 mg Ipratropium [place] (Atrovent) 0.5 mg IH RQ6 PRN PRN Reason: Wheezing Metolazone (Zaroxolyn) 5 mg PO DAILY [facility] Last Admin: 04/16/17 08:20 Dose: 5 mg Nitroglycerin (Nitro-Bid 2% Oint) 1 inch TOP Q6H [facility] Last Admin: 04/16/17 12:06 Dose: 1 inch Pantoprazole Sodium (Protonix Ec Tab) 40 mg PO DAILY [facility] Last Admin: 04/16/17 08:15 Dose: 40 mg Prednisone (Prednisone Tab) 30 mg PO DAILY [facility] Fluticasone/Salmeterol (Advair Diskus 500/50) 1 puff IH Q12 [facility] Last Admin: 04/16/17 08:14 Dose: 1 puff Sevelamer Carbonate (Renvela) 1.6 gm PO TIDWM [facility] Last Admin: 04/16/17 12:04 Dose: 1.6 gm Sodium Bicarbonate (Sodium Bicarbonate Tab) 650 mg PO BID [facility] Last Admin: 04/16/17 08:16 Dose: 650 mg Spironolactone (Aldactone) 50 mg PO DAILY [facility] Last Admin: 04/16/17 08:17 Dose: 50 mg Vitamin B Complex/Vit C/Folic Acid (Nephro-Yemi) 1 tab PO DAILY [facility] Last Admin: 04/16/17 08:17 Dose: 1 tab - Labs Labs: 04/16/17 05:40 04/16/17 05:40 APTT 55.3 SECONDS (23.3-32.5) H 04/04/17 04:35 - Respiratory Exam Additional comments: Lungs clear - Cardiovascular Exam Cardiovascular Exam: REGULAR RHYTHM - Extremities Exam Additional comments: Both legs remai edematous Assessment and Plan - Assessment and Plan (Free Text) Assessment: ESRD on HD [facility] GN, vasculitis CHF Anemia Plan: UF goal was increased yesterday Continue HD TTS
[2017-04-17] MEDS: Nitroglycerin 2% 15 INCH/30 GM TUBE TOP SCH ×4 (00:22→19:19)
[2017-04-17 07:23] LABS: HEMOGLOBIN 9.3 g/dL (12.0-18.0); MEAN CELL VOLUME 89.2 fl (80.0-94.0); MEAN CORPUSCULAR HEMOGLOBIN 29.2 pg (27.0-31.0); MEAN CORPUSCULAR HGB CONC 32.7 g/dL (33.0-37.0); RBC 3.19 Mil/uL (4.40-5.90); RED CELL DISTRIBUTION WIDTH 17.4 % (11.5-14.5); WHITE BLOOD COUNT 13.3 K/uL (4.8-10.8)
[2017-04-17 07:55] LABS: ALBUMIN 2.4 g/dL (3.5-5.0); CALCIUM 6.4 mg/dL (8.4-10.2)
[2017-04-17] MEDS: Fluticasone-Salmeterol 500-50mcg Diskus IH SCH ×2 (08:17→21:00)
[2017-04-17] MEDS: Sevelamer Carb 0.8 gm/Packet PO SCH ×3 (08:19→16:04)
[2017-04-17] MEDS: Multivitamin Vitamin B Complex (Nephro-Vite) Tab PO SCH (08:20)
[2017-04-17] MEDS: Pantoprazole 40 mg EC Tab PO SCH (08:20)
[2017-04-17] MEDS: metOLazone 5 MG TAB PO SCH (08:21)
--- NOTE | 2017-04-17 12:23 | CP.PCM.PN ---
Subjective - Date & Time of Evaluation Date of Evaluation: 04/17/17 Time of Evaluation: 08:00 - Subjective Subjective: Patient seen and examined at bedside. Denies SOB, chest pain, palpitations, dizziness, weakness or headaches. Ambulating without difficulty. Tolerating PO diet, has no concerns or complaints at this time. Objective - Vital Signs/Intake and Output Vital Signs (last 24 hours): Temp Pulse Resp BP Pulse Ox 97.8 F 77 20 157/84 H 99 04/17/17 07:28 04/17/17 12:08 04/17/17 07:28 04/17/17 12:08 04/17/17 07:28 - Medications Medications: Current Medications Amlodipine Besylate (Norvasc) 10 mg PO DAILY [facility] Last Admin: 04/17/17 08:20 Dose: 10 mg Aspirin (Aspirin Chewable) 81 mg PO DAILY [facility] Last Admin: 04/17/17 08:20 Dose: 81 mg Atorvastatin Calcium (Lipitor) 20 mg PO HS [facility] Last Admin: 04/16/17 21:33 Dose: 20 mg Carvedilol (Coreg) 6.25 mg PO Q12 [facility] Last Admin: 04/17/17 08:18 Dose: 6.25 mg Citalopram Hydrobromide (Celexa) 20 mg PO DAILY [facility] Last Admin: 04/17/17 08:18 Dose: 20 mg Clonidine HCl (Catapres) 0.3 mg PO BID [facility] Last Admin: 04/17/17 08:18 Dose: 0.3 mg Clopidogrel Bisulfate (Plavix) 75 mg PO DAILY [facility] Last Admin: 04/17/17 08:21 Dose: 75 mg Epoetin José Manuel (Procrit) 10,000 unit IV TTS [facility] Stop: 04/18/17 09:01 Last Admin: 04/15/17 16:38 Dose: Not Given Ergocalciferol (Drisdol 50,000 Intl Units Cap) 1 cap PO Q7D [facility] Last Admin: 04/15/17 16:40 Dose: 1 cap Furosemide (Lasix) 80 mg IVP DAILY [facility] Last Admin: 04/17/17 08:20 Dose: 80 mg Guaifenesin/Dextromethorphan (Robitussin Dm) 10 ml PO Q4 PRN PRN Reason: Cough Heparin Sodium (Porcine) (Heparin) 5,000 units SC Q12 [facility] PRN Reason: Protocol Last Admin: 04/17/17 08:18 Dose: 5,000 units Hydralazine HCl (Apresoline) 50 mg PO TID [facility] Last Admin: 04/17/17 12:08 Dose: 50 mg Ipratropium [place] (Atrovent) 0.5 mg IH RQ6 PRN PRN Reason: Wheezing Metolazone (Zaroxolyn) 5 mg PO DAILY [facility] Last Admin: 04/17/17 08:21 Dose: 5 mg Nitroglycerin (Nitro-Bid 2% Oint) 1 inch TOP Q6H [facility] Last Admin: 04/17/17 12:08 Dose: 1 inch Pantoprazole Sodium (Protonix Ec Tab) 40 mg PO DAILY [facility] Last Admin: 04/17/17 08:20 Dose: 40 mg Prednisone (Prednisone Tab) 30 mg PO DAILY [facility] Last Admin: 04/17/17 08:19 Dose: 30 mg Fluticasone/Salmeterol (Advair Diskus 500/50) 1 puff IH Q12 [facility] Last Admin: 04/17/17 08:17 Dose: 1 puff Sevelamer Carbonate (Renvela) 1.6 gm PO TIDWM [facility] Last Admin: 04/17/17 12:09 Dose: 1.6 gm Sodium Bicarbonate (Sodium Bicarbonate Tab) 650 mg PO BID [facility] Last Admin: 04/17/17 08:19 Dose: 650 mg Spironolactone (Aldactone) 50 mg PO DAILY [facility] Last Admin: 04/17/17 08:19 Dose: 50 mg Vitamin B Complex/Vit C/Folic Acid (Nephro-Yemi) 1 tab PO DAILY [facility] Last Admin: 04/17/17 08:20 Dose: 1 tab - Labs Labs: 04/17/17 06:30 04/17/17 06:30 APTT 55.3 SECONDS (23.3-32.5) H 04/04/17 04:35 - Constitutional Appears: Well, Non-toxic, No Acute Distress - Head Exam Head Exam: ATRAUMATIC, NORMOCEPHALIC - Eye Exam Eye Exam: EOMI, PERRL - ENT Exam ENT Exam: Mucous Membranes Moist - Neck Exam Neck Exam: Full ROM. absent: Lymphadenopathy - Respiratory Exam Respiratory Exam: Clear to Ausculation Bilateral, NORMAL BREATHING PATTERN - Cardiovascular Exam Cardiovascular Exam: REGULAR RHYTHM, +S1, +S2 - GI/Abdominal Exam GI & Abdominal Exam: Soft, Normal Bowel Sounds. 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 Patient was found to have NSTEMI. Patient is currently receiving HD as needed. Blood culture negative x 5 days, Urine culture negative. Patient is s/p transfusion 5 units pRBC's. Echo 04/02/17: Systolic CHF with LVEF 30-35%. Cytoxan tx was given 04/10/17, pt needs 3 more tx (1 every 4 weeks). Diffuse anasarca improved. Patient had HD 04/15/17 with transfusion 2 units pRBC's. Asymptomatic anemia H/H 9.3/28.4 this AM. 1. 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 Diffuse Anasarca -improved -likely secondary to CHF and CKD -CT Abd and Pelvis: severe diffuse anasarca, unremarkable appearance of urinary bladder, no focal or diffuse -Urology consult appreciated Dr. Henley: follow recommendations -diuretic management: lasix, Metolazone 5mg PO QD, Aldactone 50 mg PO QD 3. COPD -stable O2 saturation comfortable on room air, pt comfortable this AM -Likely 2dary to acute CHF Exacerbation vs NSTEMI vs acute on CKD vs multifocal PNA -CXR 04/03/17: multifocal hazy opacities increased bilaterally in lungs compared to prior CXR, left sided pleural effusion, dx includes edema,hemorrhage, multifocal PNA -CT Chest 04/04/17: Large bilateral pleural effusions, compressive atelectasis and upper lobe infiltrates, cardiomegaly, pericardial effusion-correlate for CHF -ID consult appreciated, Dr. Silver: follow recommendations , d/c'd Zosyn (s/p 10 days tx) -Prednisone 30mg PO QD, will taper further on 04/19 -CXR 04/12/17: Small left pleural effusion and associated atelectasis or infiltrate, subtle infiltrate at the right lung base 4. 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 Systolic CHF with Acute Exacerbation -Echo 04/02/17: LVEF 30-35%, with generalized moderate hypokinesia particularly pronounced in the septum -Cardio consult appreciated Dr. Miles: patient is not a suitable candidate for invasive cardiac workup, recommend continue with Coreg 3.125mg Q12, SC Heparin 5,000 units BID, Lipitor 20 mg PO QD, Plavix 75mg QD -Lasix 80mg IVPB QD -ProBNP: improved to 87,400 (04/05/17) from 167,000 (04/02/17) -Not a good candidate for MAN-i due to impaired renal function -Strict I/Os. Daily weights. 6. NSTEMI -stable -Continue with aspirin 81 mg daily, Plavix 75 mg daily, Coreg 3.125mg PO Q12, Heparin 5,000 units SC BID -Not a good candidate for MAN inhibitor due to impaired renal function -Troponin elevated (serial measurement :0.285, 0.549, 0.384, 0.326) -Cardiology on board, consult appreciated Dr. Miles: f/u recommendations 7. Hx of RUE DVT -RUE DVT detected on 02/04/17 however patient was not a good candidate for exterminator helper anticoagulation -D-dimer also elevated at admission but of undetermined significance -B/L upper extremities US showed partial compression of the right basilic vein, possible due to a chronic thrombus -B/L lower extremities US showed no evidence of DVT -Discontinued Heparin drip ( for therapeutic management of ACS), was stopped because dropped in H/H -continue anticoagulation as above 8. HTN -uncontrolled, likely due to medication non-adherence and worsening renal function -Cardio consult appreciated Dr. Miles: continue with Hydralazine, Clonidine , Norvasc -monitor BP 9. DVT Prophylaxis -SCDs -Heparin 5000 units SC BID
[2017-04-18] MEDS: Nitroglycerin 2% 15 INCH/30 GM TUBE TOP SCH ×4 (00:44→20:17)
[2017-04-18 06:36] LABS: HEMOGLOBIN 9.3 g/dL (12.0-18.0); MEAN CELL VOLUME 89.4 fl (80.0-94.0); MEAN CORPUSCULAR HEMOGLOBIN 28.9 pg (27.0-31.0); MEAN CORPUSCULAR HGB CONC 32.4 g/dL (33.0-37.0); RBC 3.21 Mil/uL (4.40-5.90); RED CELL DISTRIBUTION WIDTH 16.9 % (11.5-14.5); WHITE BLOOD COUNT 12.5 K/uL (4.8-10.8)
[2017-04-18 07:03] LABS: CALCIUM 6.5 mg/dL (8.4-10.2)
[2017-04-18] MEDS: Multivitamin Vitamin B Complex (Nephro-Vite) Tab PO SCH (08:29)
[2017-04-18] MEDS: Sevelamer Carb 0.8 gm/Packet PO SCH ×3 (08:31→17:11)
[2017-04-18] MEDS: Pantoprazole 40 mg EC Tab PO SCH (08:33)
[2017-04-18] MEDS: Fluticasone-Salmeterol 500-50mcg Diskus IH SCH ×2 (08:34→21:56)
[2017-04-18] MEDS: metOLazone 5 MG TAB PO SCH (13:00)
--- NOTE | 2017-04-18 13:21 | CP.PCM.PN ---
Subjective - Date & Time of Evaluation Date of Evaluation: 04/18/17 Time of Evaluation: 13:19 - Subjective Subjective: Patient appeared to reach end stage renal disease with the need for chronic hemodialysis as outpatient Patient responded to hemodialysis is doing much better Waiting for the manager social to arrange for placement as outpatient for end stage renal disease dialysis. Objective - Vital Signs/Intake and Output Vital Signs (last 24 hours): Temp Pulse Resp BP Pulse Ox 97.9 F 103 H 20 166/91 H 98 04/18/17 07:54 04/18/17 07:54 04/18/17 07:54 04/18/17 07:54 04/18/17 07:54 - Medications Medications: Current Medications Amlodipine Besylate (Norvasc) 10 mg PO DAILY [facility] Last Admin: 04/17/17 08:20 Dose: 10 mg Aspirin (Aspirin Chewable) 81 mg PO DAILY [facility] Last Admin: 04/18/17 08:48 Dose: 81 mg Atorvastatin Calcium (Lipitor) 20 mg PO HS [facility] Last Admin: 04/17/17 21:22 Dose: 20 mg Carvedilol (Coreg) 6.25 mg PO Q12 [facility] Last Admin: 04/17/17 20:54 Dose: 6.25 mg Citalopram Hydrobromide (Celexa) 20 mg PO DAILY [facility] Last Admin: 04/18/17 08:30 Dose: 20 mg Clonidine HCl (Catapres) 0.3 mg PO BID [facility] Last Admin: 04/17/17 16:04 Dose: 0.3 mg Clopidogrel Bisulfate (Plavix) 75 mg PO DAILY [facility] Last Admin: 04/18/17 08:32 Dose: 75 mg Ergocalciferol (Drisdol 50,000 Intl Units Cap) 1 cap PO Q7D [facility] Last Admin: 04/15/17 16:40 Dose: 1 cap Furosemide (Lasix) 80 mg IVP DAILY [facility] Last Admin: 04/17/17 08:20 Dose: 80 mg Guaifenesin/Dextromethorphan (Robitussin Dm) 10 ml PO Q4 PRN PRN Reason: Cough Heparin Sodium (Porcine) (Heparin) 5,000 units SC Q12 [facility] PRN Reason: Protocol Last Admin: 04/18/17 09:12 Dose: 5,000 units Hydralazine HCl (Apresoline) 50 mg PO TID [facility] Last Admin: 04/17/17 16:03 Dose: 50 mg Ipratropium [place] (Atrovent) 0.5 mg IH RQ6 PRN PRN Reason: Wheezing Metolazone (Zaroxolyn) 5 mg PO DAILY [facility] Last Admin: 04/17/17 08:21 Dose: 5 mg Nitroglycerin (Nitro-Bid 2% Oint) 1 inch TOP Q6H [facility] Last Admin: 04/18/17 13:13 Dose: 1 inch Pantoprazole Sodium (Protonix Ec Tab) 40 mg PO DAILY [facility] Last Admin: 04/18/17 08:33 Dose: 40 mg Prednisone (Prednisone Tab) 30 mg PO DAILY [facility] Last Admin: 04/18/17 08:29 Dose: 30 mg Fluticasone/Salmeterol (Advair Diskus 500/50) 1 puff IH Q12 [facility] Last Admin: 04/18/17 08:34 Dose: 1 puff Sevelamer Carbonate (Renvela) 1.6 gm PO TIDWM [facility] Last Admin: 04/18/17 13:06 Dose: 1.6 gm Sodium Bicarbonate (Sodium Bicarbonate Tab) 650 mg PO BID [facility] Last Admin: 04/18/17 08:29 Dose: 650 mg Spironolactone (Aldactone) 50 mg PO DAILY [facility] Last Admin: 04/18/17 13:07 Dose: 50 mg Vitamin B Complex/Vit C/Folic Acid (Nephro-Yemi) 1 tab PO DAILY [facility] Last Admin: 04/18/17 08:29 Dose: 1 tab - Labs Labs: 04/18/17 05:25 04/18/17 05:25 APTT 55.3 SECONDS (23.3-32.5) H 04/04/17 04:35 Assessment and Plan (1) Acute on chronic renal failure Status: Acute (2) Acute systolic congestive heart failure Status: Acute
--- NOTE | 2017-04-18 14:31 | CP.PCM.PN ---
Subjective - Date & Time of Evaluation Date of Evaluation: 04/18/17 Time of Evaluation: 07:00 - Subjective Subjective: Patient seen and examined at bedside, sitting in bed in no acute distress. Denies SOB, weakness, dizziness or palpitations. Patient has good insight into his diagnosed heart failure and kidney disease and demonstrated understanding via asking questions and teaching back the need for hemodialysis 3 times per week for life. Patient reports good appetite, normal stool output, and is ambulating without difficulty. He has no concerns or complaints at this time. Objective - Vital Signs/Intake and Output Vital Signs (last 24 hours): Temp Pulse Resp BP Pulse Ox 97.9 F 103 H 20 164/85 H 98 04/18/17 07:54 04/18/17 07:54 04/18/17 07:54 04/18/17 14:02 04/18/17 07:54 - Medications Medications: Current Medications Amlodipine Besylate (Norvasc) 10 mg PO DAILY [facility] Last Admin: 04/17/17 08:20 Dose: 10 mg Aspirin (Aspirin Chewable) 81 mg PO DAILY [facility] Last Admin: 04/18/17 08:48 Dose: 81 mg Atorvastatin Calcium (Lipitor) 20 mg PO HS [facility] Last Admin: 04/17/17 21:22 Dose: 20 mg Carvedilol (Coreg) 6.25 mg PO Q12 [facility] Last Admin: 04/18/17 14:01 Dose: 6.25 mg Citalopram Hydrobromide (Celexa) 20 mg PO DAILY [facility] Last Admin: 04/18/17 08:30 Dose: 20 mg Clonidine HCl (Catapres) 0.3 mg PO BID [facility] Last Admin: 04/18/17 14:00 Dose: 0.3 mg Clopidogrel Bisulfate (Plavix) 75 mg PO DAILY [facility] Last Admin: 04/18/17 08:32 Dose: 75 mg Ergocalciferol (Drisdol 50,000 Intl Units Cap) 1 cap PO Q7D [facility] Last Admin: 04/15/17 16:40 Dose: 1 cap Furosemide (Lasix) 80 mg IVP DAILY [facility] Last Admin: 04/17/17 08:20 Dose: 80 mg Guaifenesin/Dextromethorphan (Robitussin Dm) 10 ml PO Q4 PRN PRN Reason: Cough Heparin Sodium (Porcine) (Heparin) 5,000 units SC Q12 [facility] PRN Reason: Protocol Last Admin: 04/18/17 09:12 Dose: 5,000 units Hydralazine HCl (Apresoline) 50 mg PO TID [facility] Last Admin: 04/18/17 14:02 Dose: 50 mg Ipratropium [place] (Atrovent) 0.5 mg IH RQ6 PRN PRN Reason: Wheezing Metolazone (Zaroxolyn) 5 mg PO DAILY [facility] Last Admin: 04/18/17 13:00 Dose: 5 mg Nitroglycerin (Nitro-Bid 2% Oint) 1 inch TOP Q6H [facility] Last Admin: 04/18/17 13:13 Dose: 1 inch Pantoprazole Sodium (Protonix Ec Tab) 40 mg PO DAILY [facility] Last Admin: 04/18/17 08:33 Dose: 40 mg Prednisone (Prednisone Tab) 30 mg PO DAILY [facility] Last Admin: 04/18/17 08:29 Dose: 30 mg Fluticasone/Salmeterol (Advair Diskus 500/50) 1 puff IH Q12 [facility] Last Admin: 04/18/17 08:34 Dose: 1 puff Sevelamer Carbonate (Renvela) 1.6 gm PO TIDWM [facility] Last Admin: 04/18/17 13:06 Dose: 1.6 gm Sodium Bicarbonate (Sodium Bicarbonate Tab) 650 mg PO BID [facility] Last Admin: 04/18/17 08:29 Dose: 650 mg Spironolactone (Aldactone) 50 mg PO DAILY [facility] Last Admin: 04/18/17 13:07 Dose: 50 mg Vitamin B Complex/Vit C/Folic Acid (Nephro-Yemi) 1 tab PO DAILY [facility] Last Admin: 04/18/17 08:29 Dose: 1 tab - Labs Labs: 04/18/17 05:25 04/18/17 05:25 APTT 55.3 SECONDS (23.3-32.5) H 04/04/17 04:35 - Constitutional Appears: Well, No Acute Distress - Head Exam Head Exam: ATRAUMATIC, NORMOCEPHALIC - Eye Exam Eye Exam: EOMI, PERRL - ENT Exam ENT Exam: Mucous Membranes Moist - Neck Exam Neck Exam: Full ROM. absent: Lymphadenopathy - Respiratory Exam Respiratory Exam: Clear to Ausculation Bilateral, NORMAL BREATHING PATTERN - Cardiovascular Exam Cardiovascular Exam: REGULAR RHYTHM, +S1, +S2 Additional comments: PERM Cath in right upper chest: dressing dry and intact - GI/Abdominal Exam GI & Abdominal Exam: Soft (obese), Normal Bowel Sounds. absent: Tenderness - Exam Exam: Scrotal Swelling (minimal, penile swelling also minimal, significant improvement) - Extremities Exam Extremities Exam: Full ROM, Normal Inspection (of bilateral upp extremities with PICC line in right proximal arm-dressing clean/dry/intact), Pedal Edema (+ 3 up to knees) - Back Exam Back Exam: absent: CVA tenderness (L), CVA tenderness (R) - Neurological Exam Neurological Exam: Alert, Awake, CN II-XII Intact, Oriented x3 - Psychiatric Exam Psychiatric exam: Normal Affect, Normal Mood - Skin Skin Exam: Dry, Intact, Warm Assessment and Plan - Assessment and Plan (Free Text) Assessment: 67 yr old M admitted for respiratory distress and found to have Acute on Chronic Kidney Injury and CHF exacerbation, with PMHx of HTN, COPD, CKD, 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 Patient was found to have NSTEMI. HD is scheduled TTS. Blood culture negative x 5 days, Urine culture negative. Patient is s/p transfusion 5 units pRBC's. Echo 04/02/17 : Systolic CHF with LVEF 30-35%. Cytoxan tx was given 04/10/17, pt needs 3 more tx (1 every 4 weeks). Diffuse anasarca improved. Patient had HD today. Asymptomatic anemia stable with H/H 9.3/28.7 this AM. 1. 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 Diffuse Anasarca -improved -likely secondary to CHF and CKD -CT Abd and Pelvis: severe diffuse anasarca, unremarkable appearance of urinary bladder, no focal or diffuse -Urology consult appreciated Dr. Henley: follow recommendations -diuretic management: lasix, Metolazone 5mg PO QD, Aldactone 50 mg PO QD 3. COPD -stable O2 saturation comfortable on room air, pt comfortable this AM -Likely 2dary to acute CHF Exacerbation vs NSTEMI vs acute on CKD vs multifocal PNA -CXR 04/03/17: multifocal hazy opacities increased bilaterally in lungs compared to prior CXR, left sided pleural effusion, dx includes edema,hemorrhage, multifocal PNA -CT Chest 04/04/17: Large bilateral pleural effusions, compressive atelectasis and upper lobe infiltrates, cardiomegaly, pericardial effusion-correlate for CHF -ID consult appreciated, Dr. Silver: follow recommendations , d/c'd Zosyn (s/p 10 days tx) -Prednisone 30mg PO QD, will taper to Prednisone 20mg PO QD on 04/19 -CXR 04/12/17: Small left pleural effusion and associated atelectasis or infiltrate, subtle infiltrate at the right lung base 4. 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 Systolic CHF with Acute Exacerbation -Echo 04/02/17: LVEF 30-35%, with generalized moderate hypokinesia particularly pronounced in the septum -Cardio consult appreciated Dr. Miles: patient is not a suitable candidate for invasive cardiac workup, recommend continue with Coreg 3.125mg Q12, SC Heparin 5,000 units BID, Lipitor 20 mg PO QD, Plavix 75mg QD -Lasix 80mg IVPB QD -ProBNP: improved to 87,400 (04/05/17) from 167,000 (04/02/17) -Not a good candidate for MAN-i due to impaired renal function -Strict I/Os. Daily weights. 6. NSTEMI -stable -Continue with aspirin 81 mg daily, Plavix 75 mg daily, Coreg 3.125mg PO Q12, Heparin 5,000 units SC BID -Not a good candidate for MAN inhibitor due to impaired renal function -Troponin elevated (serial measurement :0.285, 0.549, 0.384, 0.326) -Cardiology on board, consult appreciated Dr. Miles: f/u recommendations 7. Hx of RUE DVT -RUE DVT detected on 02/04/17 however patient was not a good candidate for long term care phlebotomist anticoagulation -D-dimer also elevated at admission but of undetermined significance -B/L upper extremities US showed partial compression of the right basilic vein, possible due to a chronic thrombus -B/L lower extremities US showed no evidence of DVT -Discontinued Heparin drip ( for therapeutic management of ACS), was stopped because dropped in H/H -continue anticoagulation as above 8. HTN -uncontrolled, likely due to medication non-adherence and worsening renal function -Cardio consult appreciated Dr. Miles: continue with Hydralazine, Clonidine , Norvasc -monitor BP 9. DVT Prophylaxis -SCDs -Heparin 5000 units SC BID
[2017-04-18] MEDS: EPOETIN ALFA 10,000 UNIT/ML ML IV SCH (23:35)
[2017-04-19] MEDS: Nitroglycerin 2% 15 INCH/30 GM TUBE TOP SCH ×4 (00:45→19:55)
[2017-04-19 09:02] LABS: BASO % 0.1 % (0.0-2.0); EOS % 0.4 % (0.0-4.0); HEMOGLOBIN 10.5 g/dL (12.0-18.0); LYMPH # 1.7 K/uL (1.0-4.3); LYMPH % 16.8 % (20.0-40.0); MEAN CELL VOLUME 89.7 fl (80.0-94.0); MEAN CORPUSCULAR HEMOGLOBIN 29.5 pg (27.0-31.0); MEAN CORPUSCULAR HGB CONC 32.9 g/dL (33.0-37.0); MEAN PLATELET VOLUME 7.7 fl (7.2-11.7); MONO # 0.7 K/uL (0.0-0.8); MONO % 7.4 % (0.0-10.0); NEUT # 7.4 K/uL (1.8-7.0); NEUT % 75.3 % (50.0-75.0); NRBC % 0.1 % (0.0-0.0); RBC 3.56 Mil/uL (4.40-5.90); RED CELL DISTRIBUTION WIDTH 17.1 % (11.5-14.5); WHITE BLOOD COUNT 9.9 K/uL (4.8-10.8)
[2017-04-19 09:15] LABS: ALB/GLOB RATIO 1.1 (1.0-2.1); ALBUMIN 2.9 g/dL (3.5-5.0); CALCIUM 7.4 mg/dL (8.4-10.2)
[2017-04-19] MEDS: Fluticasone-Salmeterol 500-50mcg Diskus IH SCH ×2 (09:15→21:13)
[2017-04-19] MEDS: Multivitamin Vitamin B Complex (Nephro-Vite) Tab PO SCH (09:16)
[2017-04-19] MEDS: metOLazone 5 MG TAB PO SCH (09:17)
[2017-04-19] MEDS: Pantoprazole 40 mg EC Tab PO SCH (09:18)
[2017-04-19] MEDS: Sevelamer Carb 0.8 gm/Packet PO SCH ×3 (09:19→17:15)
--- NOTE | 2017-04-19 14:35 | CP.PCM.PN ---
Subjective - Date & Time of Evaluation Date of Evaluation: 04/19/17 Time of Evaluation: 07:25 - Subjective Subjective: Patient seen and examined at bedside, in no acute distress, reports he is concerned about his body swelling, tolerated HD well yesterday. Denies chest pain, SOB, weakness or dizziness. Has normal stool output, good appetite, minimal urine output persists. He has no other concerns or complaints at this time. Objective - Vital Signs/Intake and Output Vital Signs (last 24 hours): Temp Pulse Resp BP Pulse Ox 98.4 F 69 20 156/81 H 96 04/19/17 07:56 04/19/17 07:56 04/19/17 07:56 04/19/17 09:17 04/19/17 07:56 - Medications Medications: Current Medications Amlodipine Besylate (Norvasc) 10 mg PO DAILY [facility] Last Admin: 04/19/17 09:16 Dose: 10 mg Aspirin (Aspirin Chewable) 81 mg PO DAILY [facility] Last Admin: 04/19/17 09:19 Dose: 81 mg Atorvastatin Calcium (Lipitor) 20 mg PO HS [facility] Last Admin: 04/18/17 21:55 Dose: 20 mg Carvedilol (Coreg) 6.25 mg PO Q12 [facility] Last Admin: 04/19/17 09:18 Dose: 6.25 mg Citalopram Hydrobromide (Celexa) 20 mg PO DAILY [facility] Last Admin: 04/19/17 09:19 Dose: 20 mg Clonidine HCl (Catapres) 0.3 mg PO BID [facility] Last Admin: 04/19/17 09:16 Dose: 0.3 mg Clopidogrel Bisulfate (Plavix) 75 mg PO DAILY [facility] Last Admin: 04/19/17 09:17 Dose: 75 mg Ergocalciferol (Drisdol 50,000 Intl Units Cap) 1 cap PO Q7D [facility] Last Admin: 04/15/17 16:40 Dose: 1 cap Furosemide (Lasix) 80 mg IVP DAILY [facility] Last Admin: 04/19/17 09:17 Dose: 80 mg Guaifenesin/Dextromethorphan (Robitussin Dm) 10 ml PO Q4 PRN PRN Reason: Cough Heparin Sodium (Porcine) (Heparin) 5,000 units SC Q12 [facility] PRN Reason: Protocol Last Admin: 04/19/17 09:18 Dose: 5,000 units Hydralazine HCl (Apresoline) 50 mg PO TID [facility] Last Admin: 04/19/17 09:15 Dose: 50 mg Ipratropium [place] (Atrovent) 0.5 mg IH RQ6 PRN PRN Reason: Wheezing Metolazone (Zaroxolyn) 5 mg PO DAILY [facility] Last Admin: 04/19/17 09:17 Dose: 5 mg Nitroglycerin (Nitro-Bid 2% Oint) 1 inch TOP Q6H [facility] Last Admin: 04/19/17 08:00 Dose: 1 inch Pantoprazole Sodium (Protonix Ec Tab) 40 mg PO DAILY [facility] Last Admin: 04/19/17 09:18 Dose: 40 mg Prednisone (Prednisone Tab) 30 mg PO DAILY [facility] Last Admin: 04/19/17 09:18 Dose: 30 mg Fluticasone/Salmeterol (Advair Diskus 500/50) 1 puff IH Q12 [facility] Last Admin: 04/19/17 09:15 Dose: 1 puff Sevelamer Carbonate (Renvela) 1.6 gm PO TIDWM [facility] Last Admin: 04/19/17 12:38 Dose: 1.6 gm Sodium Bicarbonate (Sodium Bicarbonate Tab) 650 mg PO BID [facility] Last Admin: 04/19/17 09:17 Dose: 650 mg Spironolactone (Aldactone) 50 mg PO DAILY [facility] Last Admin: 04/19/17 09:17 Dose: 50 mg Vitamin B Complex/Vit C/Folic Acid (Nephro-Yemi) 1 tab PO DAILY [facility] Last Admin: 04/19/17 09:16 Dose: 1 tab - Labs Labs: 04/19/17 08:46 04/19/17 08:46 APTT 55.3 SECONDS (23.3-32.5) H 04/04/17 04:35 - Constitutional Appears: Well, No Acute Distress - Head Exam Head Exam: ATRAUMATIC, NORMOCEPHALIC - Eye Exam Eye Exam: EOMI, PERRL - ENT Exam ENT Exam: Mucous Membranes Moist - Neck Exam Neck Exam: Full ROM. absent: Lymphadenopathy - Respiratory Exam Respiratory Exam: Rhonchi (mild, diffuse in bilateral lower lobes) - Cardiovascular Exam Cardiovascular Exam: REGULAR RHYTHM, +S1, +S2 - GI/Abdominal Exam GI & Abdominal Exam: Soft (obese), Normal Bowel Sounds. absent: Distended, Tenderness - Exam Exam: Scrotal Swelling (, penile swelling with 2 nontender lesions on glans) - Extremities Exam Extremities Exam: Full ROM, Pedal Edema (+3 bilateral). 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 Patient was found to have NSTEMI. HD is scheduled TTS. Blood culture negative x 5 days, Urine culture negative. Patient is s/p transfusion 5 units pRBC's. Echo 04/02/17 : Systolic CHF with LVEF 30-35%. Cytoxan tx was given 04/10/17, pt needs 3 more tx (1 every 4 weeks). Diffuse anasarca improved. Patient had HD yesterday, scheduled for next HD tomorrow. Asymptomatic anemia stable with H/H 10.5/31.9 this AM. SW is working on arranging outpatient HD. 1. 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 Diffuse Anasarca -improved -likely secondary to CHF and CKD -CT Abd and Pelvis: severe diffuse anasarca, unremarkable appearance of urinary bladder, no focal or diffuse -Urology consult appreciated Dr. Henley: follow recommendations -diuretic management: lasix, Metolazone 5mg PO QD, Aldactone 50 mg PO QD 3. COPD -stable O2 saturation comfortable on room air, pt comfortable this AM -Likely 2dary to acute CHF Exacerbation vs NSTEMI vs acute on CKD vs multifocal PNA -CXR 04/03/17: multifocal hazy opacities increased bilaterally in lungs compared to prior CXR, left sided pleural effusion, dx includes edema,hemorrhage, multifocal PNA -CT Chest 04/04/17: Large bilateral pleural effusions, compressive atelectasis and upper lobe infiltrates, cardiomegaly, pericardial effusion-correlate for CHF -ID consult appreciated, Dr. Silver: follow recommendations , d/c'd Zosyn (s/p 10 days tx) -Prednisone tapered to Prednisone 20mg PO QD -CXR 04/12/17: Small left pleural effusion and associated atelectasis or infiltrate, subtle infiltrate at the right lung base 4. 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 Systolic CHF with Acute Exacerbation -Echo 04/02/17: LVEF 30-35%, with generalized moderate hypokinesia particularly pronounced in the septum -Cardio consult appreciated Dr. Miles: patient is not a suitable candidate for invasive cardiac workup, recommend continue with Coreg 3.125mg Q12, SC Heparin 5,000 units BID, Lipitor 20 mg PO QD, Plavix 75mg QD -Lasix 80mg IVPB QD -ProBNP: improved to 87,400 (04/05/17) from 167,000 (04/02/17) -Not a good candidate for MAN-i due to impaired renal function -Strict I/Os. Daily weights. 6. NSTEMI-stable -Continue with aspirin 81 mg daily, Plavix 75 mg daily, Coreg 3.125mg PO Q12, Heparin 5,000 units SC BID -Not a good candidate for MAN inhibitor due to impaired renal function -Troponin elevated (serial measurement :0.285, 0.549, 0.384, 0.326) -Cardiology on board, consult appreciated Dr. Miles: f/u recommendations 7. 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 HTN -uncontrolled, improving -likely due to medication non-adherence and worsening renal function -Cardio consult appreciated Dr. Miles: continue with Hydralazine, Clonidine , Norvasc -monitor BP 9. DVT Prophylaxis -SCDs -Heparin 5000 units SC BID
[2017-04-20] MEDS: Nitroglycerin 2% 15 INCH/30 GM TUBE TOP SCH ×4 (01:45→18:13)
--- NOTE | 2017-04-20 06:41 | CP.PCM.PN ---
Subjective - Date & Time of Evaluation Date of Evaluation: 04/20/17 Time of Evaluation: 10:30 - Subjective Subjective: Patient seen and examined at bedside, was being prepped for HD, laying in bed in no acute distress. Patient notes increased swelling of right arm compared to last night. Denies chest pain, SOB, weakness or dizziness. Reports good appetite , minimal urine output, normal stool output. Has no concerns or complaints at this time. Objective - Vital Signs/Intake and Output Vital Signs (last 24 hours): Temp Pulse Resp BP Pulse Ox 97.8 F 77 20 158/78 H 99 04/20/17 00:16 04/20/17 00:16 04/20/17 00:16 04/20/17 00:16 04/20/17 00:16 Intake and Output: 04/19/17 04/20/17 18:59 06:59 Intake Total 200 Balance 200 - Medications Medications: Current Medications Amlodipine Besylate (Norvasc) 10 mg PO DAILY [facility] Last Admin: 04/19/17 09:16 Dose: 10 mg Aspirin (Aspirin Chewable) 81 mg PO DAILY [facility] Last Admin: 04/19/17 09:19 Dose: 81 mg Atorvastatin Calcium (Lipitor) 20 mg PO HS [facility] Last Admin: 04/19/17 21:13 Dose: 20 mg Carvedilol (Coreg) 6.25 mg PO Q12 [facility] Last Admin: 04/19/17 21:12 Dose: 6.25 mg Citalopram Hydrobromide (Celexa) 20 mg PO DAILY [facility] Last Admin: 04/19/17 09:19 Dose: 20 mg Clonidine HCl (Catapres) 0.3 mg PO BID [facility] Last Admin: 04/19/17 17:16 Dose: 0.3 mg Clopidogrel Bisulfate (Plavix) 75 mg PO DAILY [facility] Last Admin: 04/19/17 09:17 Dose: 75 mg Ergocalciferol (Drisdol 50,000 Intl Units Cap) 1 cap PO Q7D [facility] Last Admin: 04/15/17 16:40 Dose: 1 cap Furosemide (Lasix) 80 mg IVP DAILY [facility] Last Admin: 04/19/17 09:17 Dose: 80 mg Guaifenesin/Dextromethorphan (Robitussin Dm) 10 ml PO Q4 PRN PRN Reason: Cough Heparin Sodium (Porcine) (Heparin) 5,000 units SC Q12 [facility] PRN Reason: Protocol Last Admin: 04/19/17 21:12 Dose: 5,000 units Hydralazine HCl (Apresoline) 50 mg PO TID [facility] Last Admin: 04/19/17 17:16 Dose: 50 mg Ipratropium [place] (Atrovent) 0.5 mg IH RQ6 PRN PRN Reason: Wheezing Metolazone (Zaroxolyn) 5 mg PO DAILY [facility] Last Admin: 04/19/17 09:17 Dose: 5 mg Nitroglycerin (Nitro-Bid 2% Oint) 1 inch TOP Q6H [facility] Last Admin: 04/20/17 06:04 Dose: 1 inch Pantoprazole Sodium (Protonix Ec Tab) 40 mg PO DAILY [facility] Last Admin: 04/19/17 09:18 Dose: 40 mg Prednisone (Prednisone Tab) 20 mg PO DAILY [facility] Fluticasone/Salmeterol (Advair Diskus 500/50) 1 puff IH Q12 [facility] Last Admin: 04/19/17 21:13 Dose: 1 puff Sevelamer Carbonate (Renvela) 1.6 gm PO TIDWM [facility] Last Admin: 04/19/17 17:15 Dose: 1.6 gm Sodium Bicarbonate (Sodium Bicarbonate Tab) 650 mg PO BID [facility] Last Admin: 04/19/17 17:16 Dose: 650 mg Spironolactone (Aldactone) 50 mg PO DAILY [facility] Last Admin: 04/19/17 09:17 Dose: 50 mg Vitamin B Complex/Vit C/Folic Acid (Nephro-Yemi) 1 tab PO DAILY [facility] Last Admin: 04/19/17 09:16 Dose: 1 tab - Labs Labs: 04/19/17 08:46 04/19/17 08:46 APTT 55.3 SECONDS (23.3-32.5) H 04/04/17 04:35 - Constitutional Appears: Well, No Acute Distress - Head Exam Head Exam: ATRAUMATIC, NORMOCEPHALIC - Eye Exam Eye Exam: EOMI, PERRL - ENT Exam ENT Exam: Mucous Membranes Moist - Neck Exam Neck Exam: Full ROM. absent: Lymphadenopathy - Respiratory Exam Respiratory Exam: Clear to Ausculation Bilateral, NORMAL BREATHING PATTERN - Cardiovascular Exam Cardiovascular Exam: REGULAR RHYTHM, +S1, +S2 - GI/Abdominal Exam GI & Abdominal Exam: Soft (obese), Normal Bowel Sounds. absent: Tenderness - Extremities Exam Extremities Exam: Full ROM (right forearm with increased pitting edema +2 ( compared to yesterday), bilateral LE pitting edema +2 persists with stasis dermatitis , PICC line in RUE clean/dry/intact/nontender; right chest PERMcath dry/intact/nontender) - Back Exam Back Exam: absent: CVA tenderness (L), CVA tenderness (R) - Neurological Exam Neurological Exam: Alert, Awake, CN II-XII Intact, Normal Gait, Oriented x3 - Psychiatric Exam Psychiatric exam: Normal Affect, Normal Mood - Skin Skin Exam: Dry, Intact, Warm Assessment and Plan - Assessment and Plan (Free Text) Assessment: 67 yr old M admitted for respiratory distress and found to have Acute on Chronic Kidney Injury and CHF exacerbation, with PMHx of HTN, COPD, CKD, 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 Patient was found to have NSTEMI. HD is scheduled TTS. Blood culture negative x 5 days, Urine culture negative. Patient is s/p transfusion 5 units pRBC's. Echo 04/02/17 : Systolic CHF with LVEF 30-35%. Cytoxan tx was given 04/10/17, pt needs 3 more tx (1 every 4 weeks). Diffuse anasarca persists with increased right forearm swelling this AM. Patient is scheduled for HD today. Asymptomatic anemia stable with H/H 9.3/27.7 this AM. SW is working on arranging outpatient HD. 1. 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 Diffuse Anasarca -stable, persists -likely secondary to CHF and CKD -CT Abd and Pelvis: severe diffuse anasarca, unremarkable appearance of urinary bladder, no focal or diffuse -Urology consult appreciated Dr. Henley: follow recommendations -diuretic management: lasix, Metolazone 5mg PO QD, Aldactone 50 mg PO QD 4. COPD -stable O2 saturation comfortable on room air, pt comfortable this AM -Likely 2dary to acute CHF Exacerbation vs NSTEMI vs acute on CKD vs multifocal PNA -CXR 04/03/17: multifocal hazy opacities increased bilaterally in lungs compared to prior CXR, left sided pleural effusion, dx includes edema,hemorrhage, multifocal PNA -CT Chest 04/04/17: Large bilateral pleural effusions, compressive atelectasis and upper lobe infiltrates, cardiomegaly, pericardial effusion-correlate for CHF -ID consult appreciated, Dr. Silver: follow recommendations , d/c'd Zosyn (s/p 10 days tx) -Prednisone 20mg PO QD -CXR 04/12/17: Small left pleural effusion and associated atelectasis or infiltrate, subtle infiltrate at the right lung base 5. 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 Systolic CHF with Acute Exacerbation -Echo 04/02/17: LVEF 30-35%, with generalized moderate hypokinesia particularly pronounced in the septum -Cardio consult appreciated Dr. Miles: patient is not a suitable candidate for invasive cardiac workup, recommend continue with Coreg 3.125mg Q12, SC Heparin 5,000 units BID, Lipitor 20 mg PO QD, Plavix 75mg QD -Lasix 80mg IVPB QD -ProBNP: improved to 87,400 (04/05/17) from 167,000 (04/02/17) -Not a good candidate for MAN-i due to impaired renal function -Strict I/Os. Daily weights. 7. NSTEMI-stable -Continue with aspirin 81 mg daily, Plavix 75 mg daily, Coreg 3.125mg PO Q12, Heparin 5,000 units SC BID -Not a good candidate for MAN inhibitor due to impaired renal function -Troponin elevated (serial measurement :0.285, 0.549, 0.384, 0.326) -Cardiology on board, consult appreciated Dr. Miles: f/u recommendations 8. Hx of RUE DVT -RUE DVT detected on 02/04/17 however patient was not a good candidate for fci anticoagulation -D-dimer also elevated at admission but of undetermined significance -B/L upper extremities US showed partial compression of the right basilic vein, possible due to a chronic thrombus -B/L lower extremities US showed no evidence of DVT -Discontinued Heparin drip ( for therapeutic management of ACS), was stopped because dropped in H/H -continue anticoagulation as above 9. HTN -uncontrolled, improving -likely due to medication non-adherence and worsening renal function -Cardio consult appreciated Dr. Miles: continue with Hydralazine, Clonidine , Norvasc -monitor BP 10. DVT Prophylaxis -SCDs -Heparin 5000 units SC BID
[2017-04-20 06:52] LABS: HEMOGLOBIN 9.3 g/dL (12.0-18.0); MEAN CORPUSCULAR HEMOGLOBIN 30.1 pg (27.0-31.0); MEAN CORPUSCULAR HGB CONC 33.4 g/dL (33.0-37.0); RBC 3.07 Mil/uL (4.40-5.90); RED CELL DISTRIBUTION WIDTH 17.5 % (11.5-14.5); WHITE BLOOD COUNT 9.6 K/uL (4.8-10.8)
[2017-04-20] MEDS: Fluticasone-Salmeterol 500-50mcg Diskus IH SCH ×2 (09:31→21:10)
[2017-04-20] MEDS: Multivitamin Vitamin B Complex (Nephro-Vite) Tab PO SCH (09:35)
[2017-04-20] MEDS: Pantoprazole 40 mg EC Tab PO SCH (09:36)
[2017-04-20] MEDS: Sevelamer Carb 0.8 gm/Packet PO SCH ×3 (09:36→18:13)
[2017-04-20] MEDS: metOLazone 5 MG TAB PO SCH ×2 (09:38→11:47)
--- NOTE | 2017-04-20 23:08 | CP.PCM.PN ---
Subjective - Date & Time of Evaluation Date of Evaluation: 04/20/17 Time of Evaluation: 19:00 - Subjective Subjective: Spent 45 minutes. Family meeting was held with brother (Manual) over phone and patient using manager molecular Jeffrey. Patient brother informed that his family is not willing to accepted his home. Patient stated he will like to arrange to go to [facility] however he needs help to arrangement and he might talk to his cousin in the [place] to help him. Patient is aware of not able to going to his brother's house. Objective - Vital Signs/Intake and Output Vital Signs (last 24 hours): Temp Pulse Resp BP Pulse Ox 98.4 F 78 18 161/73 H 96 04/20/17 16:08 04/20/17 21:10 04/20/17 16:08 04/20/17 21:10 04/20/17 16:08 - Medications Medications: Current Medications Amlodipine Besylate (Norvasc) 10 mg PO DAILY [facility] Last Admin: 04/20/17 11:45 Dose: 10 mg Aspirin (Aspirin Chewable) 81 mg PO DAILY [facility] Last Admin: 04/20/17 09:33 Dose: 81 mg Atorvastatin Calcium (Lipitor) 20 mg PO HS [facility] Last Admin: 04/20/17 21:10 Dose: 20 mg Carvedilol (Coreg) 6.25 mg PO Q12 [facility] Last Admin: 04/20/17 21:10 Dose: 6.25 mg Citalopram Hydrobromide (Celexa) 20 mg PO DAILY [facility] Last Admin: 04/20/17 09:33 Dose: 20 mg Clonidine HCl (Catapres) 0.3 mg PO BID [facility] Last Admin: 04/20/17 18:12 Dose: 0.3 mg Clopidogrel Bisulfate (Plavix) 75 mg PO DAILY [facility] Last Admin: 04/20/17 09:35 Dose: 75 mg Epoetin [place] (Procrit) 10,000 unit IV TTS [facility] Ergocalciferol (Drisdol 50,000 Intl Units Cap) 1 cap PO Q7D [facility] Last Admin: 04/15/17 16:40 Dose: 1 cap Furosemide (Lasix) 80 mg IVP DAILY [facility] Last Admin: 04/20/17 11:44 Dose: 80 mg Guaifenesin/Dextromethorphan (Robitussin Dm) 10 ml PO Q4 PRN PRN Reason: Cough Heparin Sodium (Porcine) (Heparin) 5,000 units SC Q12 [facility] PRN Reason: Protocol Last Admin: 04/20/17 21:10 Dose: 5,000 units Hydralazine HCl (Apresoline) 50 mg PO TID [facility] Last Admin: 04/20/17 18:10 Dose: 50 mg Ipratropium [place] (Atrovent) 0.5 mg IH RQ6 PRN PRN Reason: Wheezing Metolazone (Zaroxolyn) 5 mg PO DAILY [facility] Last Admin: 04/20/17 11:47 Dose: 5 mg Nitroglycerin (Nitro-Bid 2% Oint) 1 inch TOP Q6H [facility] Last Admin: 04/20/17 18:13 Dose: 1 inch Pantoprazole Sodium (Protonix Ec Tab) 40 mg PO DAILY [facility] Last Admin: 04/20/17 09:36 Dose: 40 mg Prednisone (Prednisone Tab) 20 mg PO DAILY [facility] Last Admin: 04/20/17 09:36 Dose: 20 mg Fluticasone/Salmeterol (Advair Diskus 500/50) 1 puff IH Q12 [facility] Last Admin: 04/20/17 21:10 Dose: 1 puff Sevelamer Carbonate (Renvela) 1.6 gm PO TIDWM [facility] Last Admin: 04/20/17 18:13 Dose: 1.6 gm Spironolactone (Aldactone) 50 mg PO DAILY [facility] Last Admin: 04/20/17 09:32 Dose: 50 mg Vitamin B Complex/Vit C/Folic Acid (Nephro-Yemi) 1 tab PO DAILY [facility] Last Admin: 04/20/17 09:35 Dose: 1 tab - Labs Labs: 04/20/17 05:45 04/20/17 05:45 APTT 55.3 SECONDS (23.3-32.5) H 04/04/17 04:35
[2017-04-21] MEDS: Nitroglycerin 2% 15 INCH/30 GM TUBE TOP SCH ×4 (00:30→18:21)
[2017-04-21 07:02] LABS: HEMOGLOBIN 9.7 g/dL (12.0-18.0); MEAN CELL VOLUME 91.1 fl (80.0-94.0); MEAN CORPUSCULAR HEMOGLOBIN 30.2 pg (27.0-31.0); MEAN CORPUSCULAR HGB CONC 33.2 g/dL (33.0-37.0); RBC 3.21 Mil/uL (4.40-5.90); RED CELL DISTRIBUTION WIDTH 17.6 % (11.5-14.5); WHITE BLOOD COUNT 10.5 K/uL (4.8-10.8)
--- NOTE | 2017-04-21 09:50 | CP.PCM.PN ---
Subjective - Date & Time of Evaluation Date of Evaluation: 04/21/17 Time of Evaluation: 09:48 - Subjective Subjective: Patient appeared to be doing much better Serum creatinine is stable less than 3 I am considering to stop hemodialysis for a few days to monitor his kidney function and to see what happens. Monitor his kidney function waiting for the 24 hours urine for creatinine clearance to be completed which has not been done yet. 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 , ANCA neg.associated vasculitis (Dec bx), DVT of RUE, CHF, CKD, COPD, HTN, etoh abuse, Seizure, Anemia, Objective - Vital Signs/Intake and Output Vital Signs (last 24 hours): Temp Pulse Resp BP Pulse Ox 98.2 F 102 H 20 172/87 H 95 04/21/17 07:46 04/21/17 07:46 04/21/17 07:46 04/21/17 07:46 04/21/17 07:46 Intake and Output: 04/21/17 04/21/17 06:59 18:59 Intake Total 200 Output Total 150 Balance 50 - Medications Medications: Current Medications Amlodipine Besylate (Norvasc) 10 mg PO DAILY [facility] Last Admin: 04/20/17 11:45 Dose: 10 mg Aspirin (Aspirin Chewable) 81 mg PO DAILY [facility] Last Admin: 04/20/17 09:33 Dose: 81 mg Atorvastatin Calcium (Lipitor) 20 mg PO HS [facility] Last Admin: 04/20/17 21:10 Dose: 20 mg Carvedilol (Coreg) 6.25 mg PO Q12 [facility] Last Admin: 04/20/17 21:10 Dose: 6.25 mg Citalopram Hydrobromide (Celexa) 20 mg PO DAILY [facility] Last Admin: 04/20/17 09:33 Dose: 20 mg Clonidine HCl (Catapres) 0.3 mg PO BID [facility] Last Admin: 04/20/17 18:12 Dose: 0.3 mg Clopidogrel Bisulfate (Plavix) 75 mg PO DAILY [facility] Last Admin: 04/20/17 09:35 Dose: 75 mg Epoetin José Manuel (Procrit) 10,000 unit IV TTS [facility] Ergocalciferol (Drisdol 50,000 Intl Units Cap) 1 cap PO Q7D [facility] Last Admin: 04/15/17 16:40 Dose: 1 cap Furosemide (Lasix) 80 mg IVP DAILY [facility] Last Admin: 04/20/17 11:44 Dose: 80 mg Guaifenesin/Dextromethorphan (Robitussin Dm) 10 ml PO Q4 PRN PRN Reason: Cough Heparin Sodium (Porcine) (Heparin) 5,000 units SC Q12 [facility] PRN Reason: Protocol Last Admin: 04/20/17 21:10 Dose: 5,000 units Hydralazine HCl (Apresoline) 50 mg PO TID [facility] Last Admin: 04/20/17 18:10 Dose: 50 mg Ipratropium [place] (Atrovent) 0.5 mg IH RQ6 PRN PRN Reason: Wheezing Metolazone (Zaroxolyn) 5 mg PO DAILY [facility] Last Admin: 04/20/17 11:47 Dose: 5 mg Nitroglycerin (Nitro-Bid 2% Oint) 1 inch TOP Q6H [facility] Last Admin: 04/21/17 06:01 Dose: 1 inch Pantoprazole Sodium (Protonix Ec Tab) 40 mg PO DAILY [facility] Last Admin: 04/20/17 09:36 Dose: 40 mg Prednisone (Prednisone Tab) 20 mg PO DAILY [facility] Last Admin: 04/20/17 09:36 Dose: 20 mg Fluticasone/Salmeterol (Advair Diskus 500/50) 1 puff IH Q12 [facility] Last Admin: 04/20/17 21:10 Dose: 1 puff Sevelamer Carbonate (Renvela) 1.6 gm PO TIDWM [facility] Last Admin: 04/20/17 18:13 Dose: 1.6 gm Spironolactone (Aldactone) 50 mg PO DAILY [facility] Last Admin: 04/20/17 09:32 Dose: 50 mg Vitamin B Complex/Vit C/Folic Acid (Nephro-Yemi) 1 tab PO DAILY [facility] Last Admin: 04/20/17 09:35 Dose: 1 tab - Labs Labs: 04/21/17 05:50 04/21/17 05:50 APTT 55.3 SECONDS (23.3-32.5) H 04/04/17 04:35 - Constitutional Appears: No Acute Distress - ENT Exam ENT Exam: Mucous Membranes Moist - Respiratory Exam Respiratory Exam: absent: Chest Wall Tenderness - GI/Abdominal Exam GI & Abdominal Exam: Normal Bowel Sounds - Extremities Exam Extremities Exam: absent: Calf Tenderness - Back Exam Back Exam: absent: CVA tenderness (L), CVA tenderness (R) - Neurological Exam Neurological Exam: Alert Assessment and Plan (1) Acute on chronic renal failure Status: Acute (2) Acute systolic congestive heart failure Status: Acute
[2017-04-21] MEDS: Fluticasone-Salmeterol 500-50mcg Diskus IH SCH ×2 (10:13→21:34)
[2017-04-21] MEDS: Multivitamin Vitamin B Complex (Nephro-Vite) Tab PO SCH (10:16)
[2017-04-21] MEDS: metOLazone 5 MG TAB PO SCH (10:17)
[2017-04-21] MEDS: Pantoprazole 40 mg EC Tab PO SCH (10:17)
[2017-04-21] MEDS: Sevelamer Carb 0.8 gm/Packet PO SCH ×3 (10:17→18:20)
--- NOTE | 2017-04-21 11:15 | CP.PCM.PN ---
Subjective - Date & Time of Evaluation Date of Evaluation: 04/21/17 Time of Evaluation: 07:15 - Subjective Subjective: Patient seen and examined at bedside, in no acute distress. Reports his right arm swelling has decreased, he is voiding small amount of urine into urinal at bedside. Is tolerating PO diet, tolerated HD well yesterday. Ambulating without difficulty. Denies SOB, weakness, chest pain or dizziness. Patient has no other concerns or complaints at this time. Objective - Vital Signs/Intake and Output Vital Signs (last 24 hours): Temp Pulse Resp BP Pulse Ox 98.2 F 102 H 20 172/87 H 95 04/21/17 07:46 04/21/17 10:16 04/21/17 07:46 04/21/17 10:16 04/21/17 07:46 Intake and Output: 04/21/17 04/21/17 06:59 18:59 Intake Total 200 Output Total 150 Balance 50 - Medications Medications: Current Medications Amlodipine Besylate (Norvasc) 10 mg PO DAILY [facility] Last Admin: 04/21/17 10:16 Dose: 10 mg Aspirin (Aspirin Chewable) 81 mg PO DAILY [facility] Last Admin: 04/21/17 10:14 Dose: 81 mg Atorvastatin Calcium (Lipitor) 20 mg PO HS [facility] Last Admin: 04/20/17 21:10 Dose: 20 mg Carvedilol (Coreg) 6.25 mg PO Q12 [facility] Last Admin: 04/21/17 10:15 Dose: 6.25 mg Citalopram Hydrobromide (Celexa) 20 mg PO DAILY [facility] Last Admin: 04/21/17 10:15 Dose: 20 mg Clonidine HCl (Catapres) 0.3 mg PO BID [facility] Last Admin: 04/21/17 10:14 Dose: 0.3 mg Clopidogrel Bisulfate (Plavix) 75 mg PO DAILY [facility] Last Admin: 04/21/17 10:16 Dose: 75 mg Epoetin José Manuel (Procrit) 10,000 unit IV TTS [facility] Ergocalciferol (Drisdol 50,000 Intl Units Cap) 1 cap PO Q7D [facility] Last Admin: 04/15/17 16:40 Dose: 1 cap Furosemide (Lasix) 80 mg IVP DAILY [facility] Last Admin: 04/20/17 11:44 Dose: 80 mg Guaifenesin/Dextromethorphan (Robitussin Dm) 10 ml PO Q4 PRN PRN Reason: Cough Heparin Sodium (Porcine) (Heparin) 5,000 units SC Q12 [facility] PRN Reason: Protocol Last Admin: 04/21/17 10:15 Dose: 5,000 units Hydralazine HCl (Apresoline) 50 mg PO TID [facility] Last Admin: 04/21/17 10:13 Dose: 50 mg Ipratropium [place] (Atrovent) 0.5 mg IH RQ6 PRN PRN Reason: Wheezing Metolazone (Zaroxolyn) 5 mg PO DAILY [facility] Last Admin: 04/21/17 10:17 Dose: 5 mg Nitroglycerin (Nitro-Bid 2% Oint) 1 inch TOP Q6H [facility] Last Admin: 04/21/17 06:01 Dose: 1 inch Pantoprazole Sodium (Protonix Ec Tab) 40 mg PO DAILY [facility] Last Admin: 04/21/17 10:17 Dose: 40 mg Prednisone (Prednisone Tab) 20 mg PO DAILY [facility] Last Admin: 04/21/17 10:17 Dose: 20 mg Fluticasone/Salmeterol (Advair Diskus 500/50) 1 puff IH Q12 [facility] Last Admin: 04/21/17 10:13 Dose: 1 puff Sevelamer Carbonate (Renvela) 1.6 gm PO TIDWM [facility] Last Admin: 04/21/17 10:17 Dose: 1.6 gm Spironolactone (Aldactone) 50 mg PO DAILY [facility] Last Admin: 04/21/17 10:14 Dose: 50 mg Vitamin B Complex/Vit C/Folic Acid (Nephro-Yemi) 1 tab PO DAILY [facility] Last Admin: 04/21/17 10:16 Dose: 1 tab - Labs Labs: 04/21/17 05:50 04/21/17 05:50 APTT 55.3 SECONDS (23.3-32.5) H 04/04/17 04:35 - Constitutional Appears: Well, No Acute Distress - Head Exam Head Exam: ATRAUMATIC, NORMOCEPHALIC - Eye Exam Eye Exam: EOMI, PERRL - ENT Exam ENT Exam: Mucous Membranes Moist - Neck Exam Neck Exam: Full ROM. absent: Lymphadenopathy - Respiratory Exam Respiratory Exam: Clear to Ausculation Bilateral, NORMAL BREATHING PATTERN - Cardiovascular Exam Cardiovascular Exam: REGULAR RHYTHM, +S1, +S2 - GI/Abdominal Exam GI & Abdominal Exam: Soft (obese), Normal Bowel Sounds. absent: Tenderness - Extremities Exam Extremities Exam: Full ROM, Pedal Edema (bilateral, pitting +3 up to knees; diffuse anasarca of bilateral forearms and penis; stasis dermatitis in forearms and b/l LE). 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 Patient was found to have NSTEMI. HD is scheduled TTS. Blood culture negative x 5 days, Urine culture negative. Patient is s/p transfusion 5 units pRBC's. Echo 04/02/17 : Systolic CHF with LVEF 30-35%. Cytoxan tx was given 04/10/17, pt needs 3 more tx (1 every 4 weeks). Diffuse anasarca persists, right forearm swelling has improved this AM. Patient had HD yesterday. Asymptomatic anemia stable with H/H 9.7/29.3 this AM. SW is working on arranging outpatient HD. 1. 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 Sandoval will consider holding off on HD to reassess renal function baseline 2. Right forearm swelling -improved, acute, likely secondary to diffuse anasarca vs extending thrombus -RUE DVT detected on 02/04/17 however patient was not a good candidate for watermaster anticoagulation -RUE duplex 04/20/17: No evidence of vein thrombosis of the RUE with normal venous flow. 3. Diffuse Anasarca -stable, persists -likely secondary to CHF and CKD -CT Abd and Pelvis: severe diffuse anasarca, unremarkable appearance of urinary bladder, no focal or diffuse -Urology consult appreciated Dr. Henley: follow recommendations -diuretic management: lasix, Metolazone 5mg PO QD, Aldactone 50 mg PO QD 4. COPD -stable O2 saturation comfortable on room air, pt comfortable this AM -Likely 2dary to acute CHF Exacerbation vs NSTEMI vs acute on CKD vs multifocal PNA -CXR 04/03/17: multifocal hazy opacities increased bilaterally in lungs compared to prior CXR, left sided pleural effusion, dx includes edema,hemorrhage, multifocal PNA -CT Chest 04/04/17: Large bilateral pleural effusions, compressive atelectasis and upper lobe infiltrates, cardiomegaly, pericardial effusion-correlate for CHF -ID consult appreciated, Dr. Silver: follow recommendations , d/c'd Zosyn (s/p 10 days tx) -Prednisone 20mg PO QD, will taper to Prednisone 10mg PO QD on 04/24/17 -CXR 04/12/17: Small left pleural effusion and associated atelectasis or infiltrate, subtle infiltrate at the right lung base 5. 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 Systolic CHF with Acute Exacerbation -Echo 04/02/17: LVEF 30-35%, with generalized moderate hypokinesia particularly pronounced in the septum -Cardio consult appreciated Dr. Miles: patient is not a suitable candidate for invasive cardiac workup, recommend continue with Coreg 3.125mg Q12, SC Heparin 5,000 units BID, Lipitor 20 mg PO QD, Plavix 75mg QD -Lasix 80mg IVPB QD -ProBNP: improved to 87,400 (04/05/17) from 167,000 (04/02/17) -Not a good candidate for MAN-i due to impaired renal function -Strict I/Os. Daily weights. 7. NSTEMI -stable -Continue with aspirin 81 mg daily, Plavix 75 mg daily, Coreg 3.125mg PO Q12, Heparin 5,000 units SC BID -Not a good candidate for MAN inhibitor due to impaired renal function -Troponin elevated (serial measurement :0.285, 0.549, 0.384, 0.326) -Cardiology on board, consult appreciated Dr. Miles: f/u recommendations 8. Hx of RUE DVT -RUE DVT detected on 02/04/17 however patient was not a good candidate for jail anticoagulation -RUE duplex 04/20/17: No evidence of vein thrombosis of the RUE with normal venous flow -D-dimer also elevated at admission but of undetermined significance -B/L upper extremities US showed partial compression of the right basilic vein, possible due to a chronic thrombus -B/L lower extremities US showed no evidence of DVT -Discontinued Heparin drip ( for therapeutic management of ACS), was stopped because dropped in H/H -continue anticoagulation as above 9. HTN -uncontrolled, improving -likely due to medication non-adherence and worsening renal function -Cardio consult appreciated Dr. Miles: continue with Hydralazine, Clonidine , Norvasc -monitor BP 10. DVT Prophylaxis -SCDs -Heparin 5000 units SC BID
--- NOTE | 2017-04-21 11:46 | US ---
PROCEDURE: Right Upper Extremity Venous Duplex Exam HISTORY: swelling of right arm worse PRIORS: None. TECHNIQUE: Right upper extremity, internal jugular, subclavian, axillary, brachial, ulnar, radial, basilic and upper cephalic veins were evaluated. Flow was assessed with color Doppler, compressibility, assessment of phasic flow and augmentation response. Report prepared by echo vascular technologist. FINDINGS: RIGHT: 1. Internal Jugular: 1.1. Compressibility - Fully compressible: Thrombus - None : Flow - Phasic: Augmentation -Normal: Reflux - None. 2. Subclavian: 2.1. Compressibility - Fully compressible: Thrombus - None : Flow - Phasic: Augmentation -Normal: Reflux - None. 3. Axillary: 3.1. Compressibility - Fully compressible: Thrombus - None : Flow - Phasic: Augmentation -Normal: Reflux - None. 4. Brachial: 4.1. Compressibility - Fully compressible: Thrombus - None: Flow - Phasic: Augmentation -Normal: Reflux - None. 5. Ulnar: 5.1. Compressibility - Fully compressible: Thrombus - None: Flow - Phasic: Augmentation -Normal: Reflux - None. 6. Radial: 6.1. Compressibility - Fully compressible: Thrombus - None: Flow - Phasic: Augmentation - Normal: Reflux - None. 7. Cephalic: 7.1. Compressibility - Fully compressible: Thrombus - None: Flow - Phasic: Augmentation -Normal: Reflux - None. 8. Basilic: 8.1. Compressibility - Fully compressible: Thrombus - None: Flow - Phasic: Augmentation -Normal: Reflux - None. OTHER FINDINGS: Right: There is a PICC line in the right basilic brachial axillary and subclavian veins . IMPRESSION: Right: No evidence of vein thrombosis of the right upper extremity with normal venous flow. PICC line seen at the right arm extending to the right subclavian vein.
--- NOTE | 2017-04-21 12:53 | CP.PCM.PN ---
Subjective - Date & Time of Evaluation Date of Evaluation: 04/21/17 Time of Evaluation: 06:00 - Subjective Subjective: improving slowly renal function better Objective - Vital Signs/Intake and Output Vital Signs (last 24 hours): Temp Pulse Resp BP Pulse Ox 98.2 F 102 H 20 172/87 H 95 04/21/17 07:46 04/21/17 10:16 04/21/17 07:46 04/21/17 10:16 04/21/17 07:46 Intake and Output: 04/21/17 04/21/17 06:59 18:59 Intake Total 200 Output Total 150 Balance 50 - Medications Medications: Current Medications Amlodipine Besylate (Norvasc) 10 mg PO DAILY [facility] Last Admin: 04/21/17 10:16 Dose: 10 mg Aspirin (Aspirin Chewable) 81 mg PO DAILY [facility] Last Admin: 04/21/17 10:14 Dose: 81 mg Atorvastatin Calcium (Lipitor) 20 mg PO HS [facility] Last Admin: 04/20/17 21:10 Dose: 20 mg Carvedilol (Coreg) 6.25 mg PO Q12 [facility] Last Admin: 04/21/17 10:15 Dose: 6.25 mg Citalopram Hydrobromide (Celexa) 20 mg PO DAILY [facility] Last Admin: 04/21/17 10:15 Dose: 20 mg Clonidine HCl (Catapres) 0.3 mg PO BID [facility] Last Admin: 04/21/17 10:14 Dose: 0.3 mg Clopidogrel Bisulfate (Plavix) 75 mg PO DAILY [facility] Last Admin: 04/21/17 10:16 Dose: 75 mg Epoetin José Manuel (Procrit) 10,000 unit IV TTS [facility] Ergocalciferol (Drisdol 50,000 Intl Units Cap) 1 cap PO Q7D [facility] Last Admin: 04/15/17 16:40 Dose: 1 cap Furosemide (Lasix) 80 mg IVP DAILY [facility] Last Admin: 04/20/17 11:44 Dose: 80 mg Guaifenesin/Dextromethorphan (Robitussin Dm) 10 ml PO Q4 PRN PRN Reason: Cough Heparin Sodium (Porcine) (Heparin) 5,000 units SC Q12 [facility] PRN Reason: Protocol Last Admin: 04/21/17 10:15 Dose: 5,000 units Hydralazine HCl (Apresoline) 50 mg PO TID [facility] Last Admin: 04/21/17 10:13 Dose: 50 mg Ipratropium [place] (Atrovent) 0.5 mg IH RQ6 PRN PRN Reason: Wheezing Metolazone (Zaroxolyn) 5 mg PO DAILY [facility] Last Admin: 04/21/17 10:17 Dose: 5 mg Nitroglycerin (Nitro-Bid 2% Oint) 1 inch TOP Q6H [facility] Last Admin: 04/21/17 06:01 Dose: 1 inch Pantoprazole Sodium (Protonix Ec Tab) 40 mg PO DAILY [facility] Last Admin: 04/21/17 10:17 Dose: 40 mg Prednisone (Prednisone Tab) 20 mg PO DAILY [facility] Last Admin: 04/21/17 10:17 Dose: 20 mg Fluticasone/Salmeterol (Advair Diskus 500/50) 1 puff IH Q12 [facility] Last Admin: 04/21/17 10:13 Dose: 1 puff Sevelamer Carbonate (Renvela) 1.6 gm PO TIDWM [facility] Last Admin: 04/21/17 10:17 Dose: 1.6 gm Spironolactone (Aldactone) 50 mg PO DAILY [facility] Last Admin: 04/21/17 10:14 Dose: 50 mg Vitamin B Complex/Vit C/Folic Acid (Nephro-Yemi) 1 tab PO DAILY [facility] Last Admin: 04/21/17 10:16 Dose: 1 tab - Labs Labs: 04/21/17 05:50 04/21/17 05:50 APTT 55.3 SECONDS (23.3-32.5) H 04/04/17 04:35 - Constitutional Appears: Non-toxic, Chronically Ill - Head Exam Head Exam: NORMOCEPHALIC - Eye Exam Eye Exam: PERRL - ENT Exam ENT Exam: Mucous Membranes Dry - Neck Exam Neck Exam: absent: Lymphadenopathy - Respiratory Exam Respiratory Exam: Decreased Breath Sounds - Cardiovascular Exam Cardiovascular Exam: REGULAR RHYTHM - GI/Abdominal Exam GI & Abdominal Exam: Distended, Soft - Rectal Exam Rectal Exam: Deferred - Exam Exam: NORMAL INSPECTION - Extremities Exam Extremities Exam: absent: Pedal Edema - Back Exam Back Exam: absent: CVA tenderness (L), CVA tenderness (R) - Neurological Exam Neurological Exam: Alert, Awake, Oriented x3 - Psychiatric Exam Psychiatric exam: Normal Mood Assessment and Plan (1) Acute on chronic renal failure Status: Acute (2) Acute systolic congestive heart failure Status: Acute (3) CHF (congestive heart failure) Status: Acute (4) NSTEMI (non-ST elevated myocardial infarction) Status: Acute
[2017-04-22] MEDS: Nitroglycerin 2% 15 INCH/30 GM TUBE TOP SCH ×4 (00:50→18:07)
[2017-04-22 03:58] LABS: URINE CREATININE 51.9 mg/dL
[2017-04-22] MEDS: Sevelamer Carb 0.8 gm/Packet PO SCH ×3 (08:36→16:47)
[2017-04-22] MEDS: Fluticasone-Salmeterol 500-50mcg Diskus IH SCH ×2 (08:38→21:26)
[2017-04-22] MEDS: Multivitamin Vitamin B Complex (Nephro-Vite) Tab PO SCH (08:43)
[2017-04-22] MEDS: metOLazone 5 MG TAB PO SCH (08:44)
[2017-04-22] MEDS: Pantoprazole 40 mg EC Tab PO SCH (08:45)
[2017-04-22] MEDS: EPOETIN ALFA 10,000 UNIT/ML ML IV SCH (09:34)
--- NOTE | 2017-04-22 10:14 | CP.PCM.PN ---
Subjective - Date & Time of Evaluation Date of Evaluation: 04/22/17 Time of Evaluation: 08:30 - Subjective Subjective: Patient seen and examined at bedside, laying in bed in no acute distress. Denies SOB, chest pain, weakness or dizziness. Patient is tolerating PO diet, ambulating without difficulty. Has no concerns or complaints at this time. Objective - Vital Signs/Intake and Output Vital Signs (last 24 hours): Temp Pulse Resp BP Pulse Ox 98.4 F 114 H 20 171/105 H 95 04/22/17 08:32 04/22/17 08:32 04/22/17 08:32 04/22/17 08:40 04/22/17 08:32 Intake and Output: 04/22/17 04/22/17 06:59 18:59 Intake Total 100 Output Total 200 Balance -100 - Medications Medications: Current Medications Amlodipine Besylate (Norvasc) 10 mg PO DAILY [facility] Last Admin: 04/22/17 08:45 Dose: 10 mg Aspirin (Aspirin Chewable) 81 mg PO DAILY [facility] Last Admin: 04/22/17 08:44 Dose: 81 mg Atorvastatin Calcium (Lipitor) 20 mg PO HS [facility] Last Admin: 04/21/17 21:34 Dose: 20 mg Carvedilol (Coreg) 6.25 mg PO Q12 [facility] Last Admin: 04/22/17 08:39 Dose: 6.25 mg Citalopram Hydrobromide (Celexa) 20 mg PO DAILY [facility] Last Admin: 04/22/17 08:44 Dose: 20 mg Clonidine HCl (Catapres) 0.3 mg PO BID [facility] Last Admin: 04/22/17 08:44 Dose: 0.3 mg Clopidogrel Bisulfate (Plavix) 75 mg PO DAILY [facility] Last Admin: 04/22/17 08:43 Dose: 75 mg Epoetin José Manuel (Procrit) 10,000 unit IV TTS [facility] Last Admin: 04/22/17 09:34 Dose: Not Given Ergocalciferol (Drisdol 50,000 Intl Units Cap) 1 cap PO Q7D [facility] Last Admin: 04/15/17 16:40 Dose: 1 cap Furosemide (Lasix) 80 mg IVP DAILY [facility] Last Admin: 04/22/17 08:40 Dose: 80 mg Guaifenesin/Dextromethorphan (Robitussin Dm) 10 ml PO Q4 PRN PRN Reason: Cough Heparin Sodium (Porcine) (Heparin) 5,000 units SC Q12 [facility] PRN Reason: Protocol Last Admin: 04/22/17 08:40 Dose: 5,000 units Hydralazine HCl (Apresoline) 50 mg PO TID [facility] Last Admin: 04/22/17 08:41 Dose: 50 mg Ipratropium [place] (Atrovent) 0.5 mg IH RQ6 PRN PRN Reason: Wheezing Metolazone (Zaroxolyn) 5 mg PO DAILY [facility] Last Admin: 04/22/17 08:44 Dose: 5 mg Nitroglycerin (Nitro-Bid 2% Oint) 1 inch TOP Q6H [facility] Last Admin: 04/22/17 06:40 Dose: 1 inch Pantoprazole Sodium (Protonix Ec Tab) 40 mg PO DAILY [facility] Last Admin: 04/22/17 08:45 Dose: 40 mg Prednisone (Prednisone Tab) 20 mg PO DAILY [facility] Last Admin: 04/22/17 08:44 Dose: 20 mg Fluticasone/Salmeterol (Advair Diskus 500/50) 1 puff IH Q12 [facility] Last Admin: 04/22/17 08:38 Dose: 1 puff Sevelamer Carbonate (Renvela) 1.6 gm PO TIDWM [facility] Last Admin: 04/22/17 08:36 Dose: 1.6 gm Spironolactone (Aldactone) 50 mg PO DAILY [facility] Last Admin: 04/22/17 08:39 Dose: 50 mg Vitamin B Complex/Vit C/Folic Acid (Nephro-Yemi) 1 tab PO DAILY [facility] Last Admin: 04/22/17 08:43 Dose: 1 tab - Labs Labs: 04/21/17 05:50 04/21/17 05:50 APTT 55.3 SECONDS (23.3-32.5) H 04/04/17 04:35 - Constitutional Appears: Well, No Acute Distress - Head Exam Head Exam: ATRAUMATIC, NORMOCEPHALIC - Eye Exam Eye Exam: EOMI, PERRL - ENT Exam ENT Exam: Mucous Membranes Moist - Neck Exam Neck Exam: Full ROM. absent: Lymphadenopathy - Respiratory Exam Respiratory Exam: Clear to Ausculation Bilateral, NORMAL BREATHING PATTERN - Cardiovascular Exam Cardiovascular Exam: REGULAR RHYTHM, +S1, +S2 - GI/Abdominal Exam GI & Abdominal Exam: Soft (obese), Normal Bowel Sounds. absent: Tenderness - Extremities Exam Extremities Exam: Full ROM, Pedal Edema (+3 pitting, bilateral with stasis dermatitis) Additional comments: RUE PICC line in place, dressing clean/dry/intact, Right chest PERM Cath in place,dressing dry/intact - Back Exam Back Exam: absent: CVA tenderness (L), CVA tenderness (R) - Neurological Exam Neurological Exam: Alert, Awake, CN II-XII Intact, Normal Gait, Oriented x3 - Psychiatric Exam Psychiatric exam: Normal Affect, Normal Mood - Skin Skin Exam: Dry, Intact, Warm Assessment and Plan - Assessment and Plan (Free Text) Assessment: 67 yr old M admitted for respiratory distress and found to have Acute on Chronic Kidney Injury and CHF exacerbation, with PMHx of HTN, COPD, CKD, 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 Patient was found to have NSTEMI. HD is scheduled TTS. Blood culture negative x 5 days, Urine culture negative. Patient is s/p transfusion 5 units pRBC's. Echo 04/02/17 : Systolic CHF with LVEF 30-35%. Cytoxan tx was given 04/10/17, pt needs 3 more tx (1 every 4 weeks). Diffuse anasarca persists, right forearm swelling has resolved this AM. Asymptomatic anemia stable with H/H 9.7/29.3 yesterday. SW is working on arranging outpatient HD. No HD scheduled for today to reassess renal function baseline. 1. 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 Sandoval will consider holding off on HD to reassess renal function baseline 2. Right forearm swelling -resolved, acute, likely secondary to diffuse anasarca vs extending thrombus -RUE DVT detected on 02/04/17 however patient was not a good candidate for terminal operations supervisor anticoagulation -RUE duplex 04/20/17: No evidence of vein thrombosis of the RUE with normal venous flow. 3. Diffuse Anasarca -stable, persists -likely secondary to CHF and CKD -CT Abd and Pelvis: severe diffuse anasarca, unremarkable appearance of urinary bladder, no focal or diffuse -Urology consult appreciated Dr. Henley: follow recommendations -diuretic management: lasix, Metolazone 5mg PO QD, Aldactone 50 mg PO QD 4. COPD -stable O2 saturation comfortable on room air, pt comfortable this AM -Likely 2dary to acute CHF Exacerbation vs NSTEMI vs acute on CKD vs multifocal PNA -CXR 04/03/17: multifocal hazy opacities increased bilaterally in lungs compared to prior CXR, left sided pleural effusion, dx includes edema,hemorrhage, multifocal PNA -CT Chest 04/04/17: Large bilateral pleural effusions, compressive atelectasis and upper lobe infiltrates, cardiomegaly, pericardial effusion-correlate for CHF -ID consult appreciated, Dr. Silver: follow recommendations , d/c'd Zosyn (s/p 10 days tx) -Prednisone 20mg PO QD, will taper to Prednisone 10mg PO QD on 04/24/17 -CXR 04/12/17: Small left pleural effusion and associated atelectasis or infiltrate, subtle infiltrate at the right lung base 5. 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 Systolic CHF with Acute Exacerbation -Echo 04/02/17: LVEF 30-35%, with generalized moderate hypokinesia particularly pronounced in the septum -Cardio consult appreciated Dr. Miles: patient is not a suitable candidate for invasive cardiac workup, recommend continue with Coreg 3.125mg Q12, SC Heparin 5,000 units BID, Lipitor 20 mg PO QD, Plavix 75mg QD -Lasix 80mg IVPB QD -ProBNP: improved to 87,400 (04/05/17) from 167,000 (04/02/17) -Not a good candidate for MAN-i due to impaired renal function -Strict I/Os. Daily weights. 7. NSTEMI -stable -Continue with aspirin 81 mg daily, Plavix 75 mg daily, Coreg 3.125mg PO Q12, Heparin 5,000 units SC BID -Not a good candidate for MAN inhibitor due to impaired renal function -Troponin elevated (serial measurement :0.285, 0.549, 0.384, 0.326) -Cardiology on board, consult appreciated Dr. Miles: f/u recommendations 8. Hx of RUE DVT -RUE DVT detected on 02/04/17 however patient was not a good candidate for terminal operations supervisor anticoagulation -RUE duplex 04/20/17: No evidence of vein thrombosis of the RUE with normal venous flow -D-dimer also elevated at admission but of undetermined significance -B/L upper extremities US showed partial compression of the right basilic vein, possible due to a chronic thrombus -B/L lower extremities US showed no evidence of DVT -Discontinued Heparin drip ( for therapeutic management of ACS), was stopped because dropped in H/H -continue anticoagulation as above 9. HTN -uncontrolled, improving -likely due to medication non-adherence and worsening renal function -Cardio consult appreciated Dr. Miles: continue with Hydralazine, Clonidine , Norvasc -monitor BP 10. DVT Prophylaxis -SCDs -Heparin 5000 units SC BID
--- NOTE | 2017-04-22 15:35 | CP.PCM.PN ---
Subjective - Date & Time of Evaluation Date of Evaluation: 04/22/17 Time of Evaluation: 02:30 - Subjective Subjective: Comfortable supine Feels better Objective - Vital Signs/Intake and Output Vital Signs (last 24 hours): Temp Pulse Resp BP Pulse Ox 98.4 F 114 H 20 137/73 95 04/22/17 08:32 04/22/17 08:32 04/22/17 08:32 04/22/17 12:16 04/22/17 08:32 Intake and Output: 04/22/17 04/22/17 06:59 18:59 Intake Total 100 Output Total 200 Balance -100 - Medications Medications: Current Medications Amlodipine Besylate (Norvasc) 10 mg PO DAILY [facility] Last Admin: 04/22/17 08:45 Dose: 10 mg Aspirin (Aspirin Chewable) 81 mg PO DAILY [facility] Last Admin: 04/22/17 08:44 Dose: 81 mg Atorvastatin Calcium (Lipitor) 20 mg PO HS [facility] Last Admin: 04/21/17 21:34 Dose: 20 mg Carvedilol (Coreg) 6.25 mg PO Q12 [facility] Last Admin: 04/22/17 08:39 Dose: 6.25 mg Citalopram Hydrobromide (Celexa) 20 mg PO DAILY [facility] Last Admin: 04/22/17 08:44 Dose: 20 mg Clonidine HCl (Catapres) 0.3 mg PO BID [facility] Last Admin: 04/22/17 08:44 Dose: 0.3 mg Clopidogrel Bisulfate (Plavix) 75 mg PO DAILY [facility] Last Admin: 04/22/17 08:43 Dose: 75 mg Epoetin José Manuel (Procrit) 10,000 unit IV TTS [facility] Last Admin: 04/22/17 09:34 Dose: Not Given Ergocalciferol (Drisdol 50,000 Intl Units Cap) 1 cap PO Q7D [facility] Last Admin: 04/15/17 16:40 Dose: 1 cap Furosemide (Lasix) 80 mg IVP DAILY [facility] Last Admin: 04/22/17 08:40 Dose: 80 mg Guaifenesin/Dextromethorphan (Robitussin Dm) 10 ml PO Q4 PRN PRN Reason: Cough Heparin Sodium (Porcine) (Heparin) 5,000 units SC Q12 [facility] PRN Reason: Protocol Last Admin: 04/22/17 08:40 Dose: 5,000 units Hydralazine HCl (Apresoline) 50 mg PO TID [facility] Last Admin: 04/22/17 12:13 Dose: 50 mg Ipratropium [place] (Atrovent) 0.5 mg IH RQ6 PRN PRN Reason: Wheezing Metolazone (Zaroxolyn) 5 mg PO DAILY [facility] Last Admin: 04/22/17 08:44 Dose: 5 mg Nitroglycerin (Nitro-Bid 2% Oint) 1 inch TOP Q6H [facility] Last Admin: 04/22/17 12:21 Dose: 1 inch Pantoprazole Sodium (Protonix Ec Tab) 40 mg PO DAILY [facility] Last Admin: 04/22/17 08:45 Dose: 40 mg Prednisone (Prednisone Tab) 20 mg PO DAILY [facility] Last Admin: 04/22/17 08:44 Dose: 20 mg Fluticasone/Salmeterol (Advair Diskus 500/50) 1 puff IH Q12 [facility] Last Admin: 04/22/17 08:38 Dose: 1 puff Sevelamer Carbonate (Renvela) 1.6 gm PO TIDWM [facility] Last Admin: 04/22/17 12:11 Dose: 1.6 gm Spironolactone (Aldactone) 50 mg PO DAILY [facility] Last Admin: 04/22/17 08:39 Dose: 50 mg Vitamin B Complex/Vit C/Folic Acid (Nephro-Yemi) 1 tab PO DAILY [facility] Last Admin: 04/22/17 08:43 Dose: 1 tab - Labs Labs: 04/21/17 05:50 04/21/17 05:50 APTT 55.3 SECONDS (23.3-32.5) H 04/04/17 04:35 - Respiratory Exam Additional comments: Lungs clear - Cardiovascular Exam Cardiovascular Exam: REGULAR RHYTHM - Extremities Exam Additional comments: 1+ edema of both LEs Assessment and Plan - Assessment and Plan (Free Text) Assessment: 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 Hold dialysis & monitor BP controlled
[2017-04-22] MEDS: Ergocalciferol 50,000 Intl Units Cap PO SCH (16:47)
[2017-04-23] MEDS: Nitroglycerin 2% 15 INCH/30 GM TUBE TOP SCH ×4 (01:09→18:01)
[2017-04-23] MEDS: Fluticasone-Salmeterol 500-50mcg Diskus IH SCH ×2 (08:14→21:13)
[2017-04-23] MEDS: Sevelamer Carb 0.8 gm/Packet PO SCH ×3 (08:15→16:49)
[2017-04-23] MEDS: Multivitamin Vitamin B Complex (Nephro-Vite) Tab PO SCH (08:17)
[2017-04-23] MEDS: metOLazone 5 MG TAB PO SCH (08:17)
[2017-04-23] MEDS: Pantoprazole 40 mg EC Tab PO SCH (08:17)
--- NOTE | 2017-04-23 10:43 | CP.PCM.PN ---
Subjective - Date & Time of Evaluation Date of Evaluation: 04/23/17 Time of Evaluation: 09:20 - Subjective Subjective: Patient seen and examined at bedside, laying in bed in no acute distress with O2 via NC @2L. Patient currently denies SOB, chest pain, weakness or dizziness but has noted episodes of dyspnea when ambulating to the bathroom, not associated with chest pain, palpitations, increased swelling of lower extremities. Patient is tolerating PO diet. Has no concerns or complaints at this time. Noted to have elevated BP 170s systolic: currently asymptomatic. Objective - Vital Signs/Intake and Output Vital Signs (last 24 hours): Temp Pulse Resp BP Pulse Ox 98.4 F 112 H 20 178/97 H 96 04/23/17 08:39 04/23/17 08:39 04/23/17 08:39 04/23/17 10:05 04/23/17 08:39 - Medications Medications: Current Medications Amlodipine Besylate (Norvasc) 10 mg PO DAILY [facility] Last Admin: 04/23/17 08:20 Dose: 10 mg Aspirin (Aspirin Chewable) 81 mg PO DAILY [facility] Last Admin: 04/23/17 08:20 Dose: 81 mg Atorvastatin Calcium (Lipitor) 20 mg PO HS [facility] Last Admin: 04/22/17 22:25 Dose: 20 mg Carvedilol (Coreg) 6.25 mg PO Q12 [facility] Last Admin: 04/23/17 08:19 Dose: 6.25 mg Citalopram Hydrobromide (Celexa) 20 mg PO DAILY [facility] Last Admin: 04/23/17 08:20 Dose: 20 mg Clonidine HCl (Catapres) 0.3 mg PO BID [facility] Last Admin: 04/23/17 08:19 Dose: 0.3 mg Clopidogrel Bisulfate (Plavix) 75 mg PO DAILY [facility] Last Admin: 04/23/17 08:19 Dose: 75 mg Epoetin José Manuel (Procrit) 10,000 unit IV TTS [facility] Last Admin: 04/22/17 09:34 Dose: Not Given Ergocalciferol (Drisdol 50,000 Intl Units Cap) 1 cap PO Q7D [facility] Last Admin: 04/22/17 16:47 Dose: 1 cap Furosemide (Lasix) 80 mg IVP DAILY [facility] Last Admin: 04/23/17 10:05 Dose: 80 mg Guaifenesin/Dextromethorphan (Robitussin Dm) 10 ml PO Q4 PRN PRN Reason: Cough Heparin Sodium (Porcine) (Heparin) 5,000 units SC Q12 [facility] PRN Reason: Protocol Last Admin: 04/23/17 08:17 Dose: 5,000 units Hydralazine HCl (Apresoline) 50 mg PO TID [facility] Last Admin: 04/23/17 08:18 Dose: 50 mg Ipratropium [place] (Atrovent) 0.5 mg IH RQ6 PRN PRN Reason: Wheezing Metolazone (Zaroxolyn) 5 mg PO DAILY [facility] Last Admin: 04/23/17 08:17 Dose: 5 mg Nitroglycerin (Nitro-Bid 2% Oint) 1 inch TOP Q6H [facility] Last Admin: 04/23/17 07:03 Dose: 1 inch Pantoprazole Sodium (Protonix Ec Tab) 40 mg PO DAILY [facility] Last Admin: 04/23/17 08:17 Dose: 40 mg Prednisone (Prednisone Tab) 20 mg PO DAILY [facility] Last Admin: 04/23/17 08:20 Dose: 20 mg Fluticasone/Salmeterol (Advair Diskus 500/50) 1 puff IH Q12 [facility] Last Admin: 04/23/17 08:14 Dose: 1 puff Sevelamer Carbonate (Renvela) 1.6 gm PO TIDWM [facility] Last Admin: 04/23/17 08:15 Dose: 1.6 gm Spironolactone (Aldactone) 50 mg PO DAILY [facility] Last Admin: 04/23/17 08:17 Dose: 50 mg Vitamin B Complex/Vit C/Folic Acid (Nephro-Yemi) 1 tab PO DAILY [facility] Last Admin: 04/23/17 08:17 Dose: 1 tab - Labs Labs: 04/21/17 05:50 04/21/17 05:50 APTT 55.3 SECONDS (23.3-32.5) H 04/04/17 04:35 - Constitutional Appears: Non-toxic - Head Exam Head Exam: ATRAUMATIC - Eye Exam Eye Exam: EOMI - ENT Exam ENT Exam: Mucous Membranes Dry - Neck Exam Neck Exam: Full ROM - Respiratory Exam Respiratory Exam: Decreased Breath Sounds - Cardiovascular Exam Cardiovascular Exam: +S1, +S2 - GI/Abdominal Exam GI & Abdominal Exam: Soft. absent: Tenderness - Extremities Exam Additional comments: Full ROM, Pedal Edema (+2 pitting, bilateral with stasis dermatitis) - Back Exam Back Exam: absent: CVA tenderness (L), CVA tenderness (R) - Neurological Exam Neurological Exam: Alert - Psychiatric Exam Psychiatric exam: Normal Affect - Skin Skin Exam: Normal Color Additional comments: RUE PICC line in place, dressing clean/dry/intact, Right chest PERM Cath in place,dressing dry/intact Assessment and Plan - Assessment and Plan (Free Text) Assessment: 67 yr old M admitted for respiratory distress and found to have Acute on Chronic Kidney Injury and CHF exacerbation. 1. 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 Sandoval will consider holding off on HD to reassess renal function baseline 2. Right forearm swelling -resolved, acute, likely secondary to diffuse anasarca vs extending thrombus -RUE DVT detected on 02/04/17 however patient was not a good candidate for care home anticoagulation -RUE duplex 04/20/17: No evidence of vein thrombosis of the RUE with normal venous flow. 3. Diffuse Anasarca -stable, persists -likely secondary to CHF and CKD -CT Abd and Pelvis: severe diffuse anasarca, unremarkable appearance of urinary bladder, no focal or diffuse -Urology consult appreciated Dr. Henley: follow recommendations -diuretic management: lasix, Metolazone 5mg PO QD, Aldactone 50 mg PO QD 4. COPD -stable O2 saturation comfortable on room air, pt comfortable this AM -Likely 2dary to acute CHF Exacerbation vs NSTEMI vs acute on CKD vs multifocal PNA -CXR 04/03/17: multifocal hazy opacities increased bilaterally in lungs compared to prior CXR, left sided pleural effusion, dx includes edema,hemorrhage, multifocal PNA -CT Chest 04/04/17: Large bilateral pleural effusions, compressive atelectasis and upper lobe infiltrates, cardiomegaly, pericardial effusion-correlate for CHF -ID consult appreciated, Dr. Silver: follow recommendations , d/c'd Zosyn (s/p 10 days tx) -Prednisone 20mg PO QD, will taper to Prednisone 10mg PO QD on 04/24/17 -CXR 04/12/17: Small left pleural effusion and associated atelectasis or infiltrate, subtle infiltrate at the right lung base 5. 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 Systolic CHF with Acute Exacerbation -Echo 04/02/17: LVEF 30-35%, with generalized moderate hypokinesia particularly pronounced in the septum -Cardio consult appreciated Dr. Miles: patient is not a suitable candidate for invasive cardiac workup, recommend continue with Coreg 3.125mg Q12, SC Heparin 5,000 units BID, Lipitor 20 mg PO QD, Plavix 75mg QD -Lasix 80mg IVPB QD -ProBNP: improved to 87,400 (04/05/17) from 167,000 (04/02/17) -Not a good candidate for MAN-i due to impaired renal function -Strict I/Os. Daily weights. 7. NSTEMI -stable -Continue with aspirin 81 mg daily, Plavix 75 mg daily, Coreg 3.125mg PO Q12, Heparin 5,000 units SC BID -Not a good candidate for MAN inhibitor due to impaired renal function -Troponin elevated (serial measurement :0.285, 0.549, 0.384, 0.326) -Cardiology on board, consult appreciated Dr. Miles: f/u recommendations 8. 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 HTN -uncontrolled, improving -likely due to medication non-adherence and worsening renal function -Cardio consult appreciated Dr. Miles: continue with Hydralazine, Clonidine , Norvasc -monitor BP 10. DVT Prophylaxis -SCDs -Heparin 5000 units SC BID
[2017-04-23] MEDS ORDERED: Docusate-Senna 50 mg-8.6 mg Tab PO ONE (11:27)
--- NOTE | 2017-04-23 15:38 | CP.PCM.PN ---
Subjective - Date & Time of Evaluation Date of Evaluation: 04/23/17 Time of Evaluation: 03:00 - Subjective Subjective: Ambulating well. No SOB Objective - Vital Signs/Intake and Output Vital Signs (last 24 hours): Temp Pulse Resp BP Pulse Ox 98.4 F 112 H 20 178/97 H 96 04/23/17 08:39 04/23/17 08:39 04/23/17 08:39 04/23/17 10:05 04/23/17 08:39 - Medications Medications: Current Medications Amlodipine Besylate (Norvasc) 10 mg PO DAILY [facility] Last Admin: 04/23/17 08:20 Dose: 10 mg Aspirin (Aspirin Chewable) 81 mg PO DAILY [facility] Last Admin: 04/23/17 08:20 Dose: 81 mg Atorvastatin Calcium (Lipitor) 20 mg PO HS [facility] Last Admin: 04/22/17 22:25 Dose: 20 mg Carvedilol (Coreg) 6.25 mg PO Q12 [facility] Last Admin: 04/23/17 08:19 Dose: 6.25 mg Citalopram Hydrobromide (Celexa) 20 mg PO DAILY [facility] Last Admin: 04/23/17 08:20 Dose: 20 mg Clonidine HCl (Catapres) 0.3 mg PO BID [facility] Last Admin: 04/23/17 08:19 Dose: 0.3 mg Clopidogrel Bisulfate (Plavix) 75 mg PO DAILY [facility] Last Admin: 04/23/17 08:19 Dose: 75 mg Epoetin José Manuel (Procrit) 10,000 unit IV TTS [facility] Last Admin: 04/22/17 09:34 Dose: Not Given Ergocalciferol (Drisdol 50,000 Intl Units Cap) 1 cap PO Q7D [facility] Last Admin: 04/22/17 16:47 Dose: 1 cap Furosemide (Lasix) 80 mg IVP DAILY [facility] Last Admin: 04/23/17 10:05 Dose: 80 mg Guaifenesin/Dextromethorphan (Robitussin Dm) 10 ml PO Q4 PRN PRN Reason: Cough Heparin Sodium (Porcine) (Heparin) 5,000 units SC Q12 [facility] PRN Reason: Protocol Last Admin: 04/23/17 08:17 Dose: 5,000 units Hydralazine HCl (Apresoline) 50 mg PO TID [facility] Last Admin: 04/23/17 12:16 Dose: 50 mg Ipratropium [place] (Atrovent) 0.5 mg IH RQ6 PRN PRN Reason: Wheezing Metolazone (Zaroxolyn) 5 mg PO DAILY [facility] Last Admin: 04/23/17 08:17 Dose: 5 mg Nitroglycerin (Nitro-Bid 2% Oint) 1 inch TOP Q6H [facility] Last Admin: 04/23/17 12:16 Dose: 1 inch Pantoprazole Sodium (Protonix Ec Tab) 40 mg PO DAILY [facility] Last Admin: 04/23/17 08:17 Dose: 40 mg Prednisone (Prednisone Tab) 20 mg PO DAILY [facility] Last Admin: 04/23/17 08:20 Dose: 20 mg Fluticasone/Salmeterol (Advair Diskus 500/50) 1 puff IH Q12 [facility] Last Admin: 04/23/17 08:14 Dose: 1 puff Sevelamer Carbonate (Renvela) 1.6 gm PO TIDWM [facility] Last Admin: 04/23/17 12:15 Dose: 1.6 gm Spironolactone (Aldactone) 50 mg PO DAILY [facility] Last Admin: 04/23/17 08:17 Dose: 50 mg Vitamin B Complex/Vit C/Folic Acid (Nephro-Yemi) 1 tab PO DAILY [facility] Last Admin: 04/23/17 08:17 Dose: 1 tab - Labs Labs: 04/21/17 05:50 04/21/17 05:50 APTT 55.3 SECONDS (23.3-32.5) H 04/04/17 04:35 - Respiratory Exam Additional comments: Decreased BS on Lt Rt clear - Cardiovascular Exam Cardiovascular Exam: REGULAR RHYTHM - Extremities Exam Extremities Exam: Pedal Edema Assessment and Plan - Assessment and Plan (Free Text) Assessment: 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 Renal sunction remains stable Continue current Mx
[2017-04-24] MEDS: Nitroglycerin 2% 15 INCH/30 GM TUBE TOP SCH ×4 (00:53→18:33)
[2017-04-24] MEDS: Fluticasone-Salmeterol 500-50mcg Diskus IH SCH ×2 (08:20→21:15)
[2017-04-24] MEDS: Multivitamin Vitamin B Complex (Nephro-Vite) Tab PO SCH (08:24)
[2017-04-24] MEDS: Sevelamer Carb 0.8 gm/Packet PO SCH ×3 (08:25→16:32)
[2017-04-24] MEDS: metOLazone 5 MG TAB PO SCH (08:26)
[2017-04-24] MEDS: Pantoprazole 40 mg EC Tab PO SCH (09:32)
--- NOTE | 2017-04-24 11:04 | CP.PCM.PN ---
Subjective - Date & Time of Evaluation Date of Evaluation: 04/24/17 Time of Evaluation: 07:35 - Subjective Subjective: Patient seen and examined at bedside, no overnight events, in no acute distress. Denies SOB, chest pain, weakness or dizziness. Reports minimal urine output, normal stool output, good appetite, no difficulty ambulating, no concerns or complaints at this time. Objective - Vital Signs/Intake and Output Vital Signs (last 24 hours): Temp Pulse Resp BP Pulse Ox 98.4 F 71 20 166/92 H 96 04/24/17 09:00 04/24/17 09:00 04/24/17 09:00 04/24/17 10:19 04/24/17 09:00 Intake and Output: 04/24/17 04/24/17 06:59 18:59 Intake Total 200 150 Output Total 150 50 Balance 50 100 - Medications Medications: Current Medications Amlodipine Besylate (Norvasc) 10 mg PO DAILY REPLACED BY [facility] Last Admin: 04/24/17 08:25 Dose: 10 mg Aspirin (Aspirin Chewable) 81 mg PO DAILY REPLACED BY [facility] Last Admin: 04/24/17 08:22 Dose: 81 mg Atorvastatin Calcium (Lipitor) 20 mg PO HS REPLACED BY [facility] Last Admin: 04/23/17 21:14 Dose: 20 mg Carvedilol (Coreg) 6.25 mg PO Q12 REPLACED BY [facility] Last Admin: 04/24/17 08:22 Dose: 6.25 mg Citalopram Hydrobromide (Celexa) 20 mg PO DAILY REPLACED BY [facility] Last Admin: 04/24/17 08:22 Dose: 20 mg Clonidine HCl (Catapres) 0.3 mg PO BID REPLACED BY [facility] Last Admin: 04/24/17 08:22 Dose: 0.3 mg Clopidogrel Bisulfate (Plavix) 75 mg PO DAILY REPLACED BY [facility] Last Admin: 04/24/17 08:25 Dose: 75 mg Epoetin José Manuel (Procrit) 10,000 unit IV TTS REPLACED BY [facility] Last Admin: 04/22/17 09:34 Dose: Not Given Ergocalciferol (Drisdol 50,000 Intl Units Cap) 1 cap PO Q7D REPLACED BY [facility] Last Admin: 04/22/17 16:47 Dose: 1 cap Furosemide (Lasix) 80 mg IVP DAILY REPLACED BY [facility] Last Admin: 04/24/17 10:19 Dose: 80 mg Guaifenesin/Dextromethorphan (Robitussin Dm) 10 ml PO Q4 PRN PRN Reason: Cough Heparin Sodium (Porcine) (Heparin) 5,000 units SC Q12 [facility] PRN Reason: Protocol Last Admin: 04/24/17 08:23 Dose: 5,000 units Hydralazine HCl (Apresoline) 50 mg PO TID REPLACED BY [facility] Last Admin: 04/24/17 08:21 Dose: 50 mg Ipratropium [place] (Atrovent) 0.5 mg IH RQ6 PRN PRN Reason: Wheezing Metolazone (Zaroxolyn) 5 mg PO DAILY REPLACED BY [facility] Last Admin: 04/24/17 08:26 Dose: 5 mg Nitroglycerin (Nitro-Bid 2% Oint) 1 inch TOP Q6H REPLACED BY [facility] Last Admin: 04/24/17 06:19 Dose: 1 inch Pantoprazole Sodium (Protonix Ec Tab) 40 mg PO DAILY REPLACED BY [facility] Last Admin: 04/24/17 09:32 Dose: 40 mg Prednisone (Prednisone Tab) 20 mg PO DAILY REPLACED BY [facility] Last Admin: 04/24/17 08:25 Dose: 20 mg Fluticasone/Salmeterol (Advair Diskus 500/50) 1 puff IH Q12 REPLACED BY [facility] Last Admin: 04/24/17 08:20 Dose: 1 puff Sevelamer Carbonate (Renvela) 1.6 gm PO TIDWM REPLACED BY [facility] Last Admin: 04/24/17 08:25 Dose: 1.6 gm Spironolactone (Aldactone) 50 mg PO DAILY REPLACED BY [facility] Last Admin: 04/24/17 08:21 Dose: 50 mg Vitamin B Complex/Vit C/Folic Acid (Nephro-Yemi) 1 tab PO DAILY REPLACED BY [facility] Last Admin: 04/24/17 08:24 Dose: 1 tab - Labs Labs: 04/21/17 05:50 04/21/17 05:50 APTT 55.3 SECONDS (23.3-32.5) H 04/04/17 04:35 - Constitutional Appears: Well, No Acute Distress - Head Exam Head Exam: ATRAUMATIC, NORMOCEPHALIC - Eye Exam Eye Exam: EOMI, PERRL - ENT Exam ENT Exam: Mucous Membranes Moist - Neck Exam Neck Exam: Full ROM. absent: Lymphadenopathy - Respiratory Exam Respiratory Exam: Rhonchi (diffuse) - Cardiovascular Exam Cardiovascular Exam: REGULAR RHYTHM, +S1, +S2 - GI/Abdominal Exam GI & Abdominal Exam: Soft (obese). absent: Distended, Tenderness - Extremities Exam Extremities Exam: Full ROM, Pedal Edema (pitting, +3 up to knees) - Back Exam Back Exam: absent: CVA tenderness (L), CVA tenderness (R) - Neurological Exam Neurological Exam: Alert, Awake, CN II-XII Intact - Psychiatric Exam Psychiatric exam: Normal Affect, Normal Mood - Skin Skin Exam: Dry, Intact, Warm Assessment and Plan - Assessment and Plan (Free Text) Assessment: 67 yr old M admitted for respiratory distress and found to have Acute on Chronic Kidney Injury and CHF exacerbation. HD held for now. 1. 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 Diffuse Anasarca -stable, persists -likely secondary to CHF and CKD -CT Abd and Pelvis: severe diffuse anasarca, unremarkable appearance of urinary bladder, no focal or diffuse -Urology consult appreciated Dr. Henley: follow recommendations -diuretic management: lasix, Metolazone 5mg PO QD, Aldactone 50 mg PO QD 3. COPD -stable O2 saturation comfortable on room air, pt comfortable this AM -Likely 2dary to acute CHF Exacerbation vs NSTEMI vs acute on CKD vs multifocal PNA -CXR 04/03/17: multifocal hazy opacities increased bilaterally in lungs compared to prior CXR, left sided pleural effusion, dx includes edema,hemorrhage, multifocal PNA -CT Chest 04/04/17: Large bilateral pleural effusions, compressive atelectasis and upper lobe infiltrates, cardiomegaly, pericardial effusion-correlate for CHF -ID consult appreciated, Dr. Silver: follow recommendations , d/c'd Zosyn (s/p 10 days tx) - Prednisone 10mg PO QD -CXR 04/12/17: Small left pleural effusion and associated atelectasis or infiltrate, subtle infiltrate at the right lung base 4. 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 Systolic CHF with Acute Exacerbation -Echo 04/02/17: LVEF 30-35%, with generalized moderate hypokinesia particularly pronounced in the septum -Cardio consult appreciated Dr. Miles: patient is not a suitable candidate for invasive cardiac workup, recommend continue with Coreg 3.125mg Q12, SC Heparin 5,000 units BID, Lipitor 20 mg PO QD, Plavix 75mg QD -Lasix 80mg IVPB QD -ProBNP: improved to 87,400 (04/05/17) from 167,000 (04/02/17) -Not a good candidate for MAN-i due to impaired renal function -Strict I/Os. Daily weights. 6. NSTEMI -stable -Continue with aspirin 81 mg daily, Plavix 75 mg daily, Coreg 3.125mg PO Q12, Heparin 5,000 units SC BID -Not a good candidate for MAN inhibitor due to impaired renal function -Troponin elevated (serial measurement :0.285, 0.549, 0.384, 0.326) -Cardiology on board, consult appreciated Dr. Miles: f/u recommendations 7. Hx of RUE DVT -RUE DVT detected on 02/04/17 however patient was not a good candidate for long term care phlebotomist anticoagulation -RUE duplex 04/20/17: No evidence of vein thrombosis of the RUE with normal venous flow -D-dimer also elevated at admission but of undetermined significance -B/L upper extremities US showed partial compression of the right basilic vein, possible due to a chronic thrombus -B/L lower extremities US showed no evidence of DVT -Discontinued Heparin drip ( for therapeutic management of ACS), was stopped because dropped in H/H -continue anticoagulation as above 8. HTN -uncontrolled, improving -likely due to medication non-adherence and worsening renal function -Cardio consult appreciated Dr. Miles: continue with Hydralazine, Clonidine , Norvasc -monitor BP 9. DVT Prophylaxis -SCDs -Heparin 5000 units SC BID
[2017-04-24 11:59] LABS: HEMOGLOBIN 9.8 g/dL (12.0-18.0); MEAN CELL VOLUME 92.4 fl (80.0-94.0); MEAN CORPUSCULAR HEMOGLOBIN 30.3 pg (27.0-31.0); MEAN CORPUSCULAR HGB CONC 32.8 g/dL (33.0-37.0); RBC 3.22 Mil/uL (4.40-5.90); RED CELL DISTRIBUTION WIDTH 20.4 % (11.5-14.5)
[2017-04-24 12:19] LABS: CALCIUM 6.9 mg/dL (8.4-10.2)
[2017-04-25] MEDS: Nitroglycerin 2% 15 INCH/30 GM TUBE TOP SCH ×4 (01:16→18:35)
[2017-04-25] MEDS: Fluticasone-Salmeterol 500-50mcg Diskus IH SCH ×2 (08:12→21:13)
[2017-04-25 08:13] LABS: CALCIUM 6.7 mg/dL (8.4-10.2)
--- NOTE | 2017-04-25 08:14 | CP.PCM.PN ---
Subjective - Date & Time of Evaluation Date of Evaluation: 04/25/17 Time of Evaluation: 08:10 - Subjective Subjective: Patient seen and examined at bedside, in no distress, no events overnight. Patient notes increased swelling of bilateral lower extremities. Continues to have minimal urine output. Reports mild SOB. Denies weakness, dizziness or chest pain. Patient did not have hemodialysis today as it was held to re-assess baseline renal function. No other concerns or complaints at this time. Objective - Vital Signs/Intake and Output Vital Signs (last 24 hours): Temp Pulse Resp BP Pulse Ox 97.0 F L 71 20 186/91 H 94 L 04/25/17 08:06 04/25/17 08:06 04/25/17 08:06 04/25/17 08:06 04/25/17 08:06 Intake and Output: 04/25/17 04/25/17 06:59 18:59 Intake Total 200 Output Total 150 Balance 50 - Medications Medications: Current Medications Amlodipine Besylate (Norvasc) 10 mg PO DAILY [facility] Last Admin: 04/24/17 08:25 Dose: 10 mg Aspirin (Aspirin Chewable) 81 mg PO DAILY [facility] Last Admin: 04/24/17 08:22 Dose: 81 mg Atorvastatin Calcium (Lipitor) 20 mg PO HS [facility] Last Admin: 04/24/17 21:14 Dose: 20 mg Carvedilol (Coreg) 6.25 mg PO Q12 [facility] Last Admin: 04/24/17 21:14 Dose: 6.25 mg Citalopram Hydrobromide (Celexa) 20 mg PO DAILY [facility] Last Admin: 04/24/17 08:22 Dose: 20 mg Clonidine HCl (Catapres) 0.3 mg PO BID [facility] Last Admin: 04/24/17 16:31 Dose: 0.3 mg Clopidogrel Bisulfate (Plavix) 75 mg PO DAILY [facility] Last Admin: 04/24/17 08:25 Dose: 75 mg Epoetin José Manuel (Procrit) 10,000 unit IV TTS [facility] Last Admin: 04/22/17 09:34 Dose: Not Given Ergocalciferol (Drisdol 50,000 Intl Units Cap) 1 cap PO Q7D [facility] Last Admin: 04/22/17 16:47 Dose: 1 cap Furosemide (Lasix) 80 mg IVP DAILY [facility] Last Admin: 06/19/17 10:19 Dose: 80 mg Guaifenesin/Dextromethorphan (Robitussin Dm) 10 ml PO Q4 PRN PRN Reason: Cough Heparin Sodium (Porcine) (Heparin) 5,000 units SC Q12 [facility] PRN Reason: Protocol Last Admin: 04/24/17 21:15 Dose: 5,000 units Hydralazine HCl (Apresoline) 50 mg PO TID [facility] Last Admin: 04/24/17 16:30 Dose: 50 mg Ipratropium [place] (Atrovent) 0.5 mg IH RQ6 PRN PRN Reason: Wheezing Metolazone (Zaroxolyn) 5 mg PO DAILY [facility] Last Admin: 04/24/17 08:26 Dose: 5 mg Nitroglycerin (Nitro-Bid 2% Oint) 1 inch TOP Q6H [facility] Last Admin: 04/25/17 06:22 Dose: 1 inch Pantoprazole Sodium (Protonix Ec Tab) 40 mg PO DAILY [facility] Last Admin: 04/24/17 09:32 Dose: 40 mg Prednisone (Prednisone Tab) 10 mg PO DAILY [facility] Fluticasone/Salmeterol (Advair Diskus 500/50) 1 puff IH Q12 [facility] Last Admin: 04/24/17 21:15 Dose: 1 puff Sevelamer Carbonate (Renvela) 1.6 gm PO TIDWM [facility] Last Admin: 04/24/17 16:32 Dose: 1.6 gm Spironolactone (Aldactone) 50 mg PO DAILY [facility] Last Admin: 04/24/17 08:21 Dose: 50 mg Vitamin B Complex/Vit C/Folic Acid (Nephro-Yemi) 1 tab PO DAILY [facility] Last Admin: 04/24/17 08:24 Dose: 1 tab - Labs Labs: 04/24/17 11:05 04/25/17 06:00 APTT 55.3 SECONDS (23.3-32.5) H 04/04/17 04:35 - Constitutional Appears: Well, No Acute Distress - Head Exam Head Exam: ATRAUMATIC, NORMOCEPHALIC - Eye Exam Eye Exam: EOMI, Periorbital swelling (minimal), PERRL - ENT Exam ENT Exam: Mucous Membranes Moist - Neck Exam Neck Exam: Full ROM. absent: Lymphadenopathy - Respiratory Exam Respiratory Exam: Rales (minimal and crackles), NORMAL BREATHING PATTERN - Cardiovascular Exam Cardiovascular Exam: REGULAR RHYTHM, +S1, +S2 - GI/Abdominal Exam GI & Abdominal Exam: Soft (obese), Normal Bowel Sounds. absent: Distended, Tenderness - Extremities Exam Extremities Exam: Full ROM (RUE PICC line in place, patent/clean/dry; right chest PERMCath in place , dressing dry/intact), Pedal Edema (+3 bilateral pitting edema). absent: Calf Tenderness - Back Exam Back Exam: absent: CVA tenderness (L), CVA tenderness (R) - Neurological Exam Neurological Exam: Alert, Awake, CN II-XII Intact, Oriented x3 - Psychiatric Exam Psychiatric exam: Normal Affect, Normal Mood - Skin Skin Exam: Dry, Intact, Warm Assessment and Plan - Assessment and Plan (Free Text) Assessment: 67 yr old M admitted for respiratory distress and found to have Acute on Chronic Kidney Injury and CHF exacerbation. HD will resume tomorrow as patients renal function did not respond to diuretics/medical management. Patient is stable. RUE PICC line and right chest PERMCath patent. 1. 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 Diffuse Anasarca -stable, persists -likely secondary to CHF and CKD -CT Abd and Pelvis: severe diffuse anasarca, unremarkable appearance of urinary bladder, no focal or diffuse -Urology consult appreciated Dr. Henley: follow recommendations -diuretic management: lasix, Metolazone 5mg PO QD, Aldactone 50 mg PO QD 3. COPD -stable O2 saturation comfortable on room air, pt comfortable this AM -Likely 2dary to acute CHF Exacerbation vs NSTEMI vs acute on CKD vs multifocal PNA -CXR 04/03/17: multifocal hazy opacities increased bilaterally in lungs compared to prior CXR, left sided pleural effusion, dx includes edema,hemorrhage, multifocal PNA -CT Chest 04/04/17: Large bilateral pleural effusions, compressive atelectasis and upper lobe infiltrates, cardiomegaly, pericardial effusion-correlate for CHF -ID consult appreciated, Dr. Silver: follow recommendations , d/c'd Zosyn (s/p 10 days tx) - Prednisone 10mg PO QD -CXR 04/12/17: Small left pleural effusion and associated atelectasis or infiltrate, subtle infiltrate at the right lung base 4. 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 Systolic CHF with Acute Exacerbation -Echo 04/02/17: LVEF 30-35%, with generalized moderate hypokinesia particularly pronounced in the septum -Cardio consult appreciated Dr. Miles: patient is not a suitable candidate for invasive cardiac workup, recommend continue with Coreg 3.125mg Q12, SC Heparin 5,000 units BID, Lipitor 20 mg PO QD, Plavix 75mg QD -Lasix 80mg IVPB QD -ProBNP: improved to 87,400 (04/05/17) from 167,000 (04/02/17) -Not a good candidate for MAN-i due to impaired renal function -Strict I/Os. Daily weights. 6. NSTEMI -stable -Continue with aspirin 81 mg daily, Plavix 75 mg daily, Coreg 3.125mg PO Q12, Heparin 5,000 units SC BID -Not a good candidate for MAN inhibitor due to impaired renal function -Troponin elevated (serial measurement :0.285, 0.549, 0.384, 0.326) -Cardiology on board, consult appreciated Dr. Miles: f/u recommendations 7. Hx of RUE DVT -RUE DVT detected on 02/04/17 however patient was not a good candidate for termite exterminator anticoagulation -RUE duplex 04/20/17: No evidence of vein thrombosis of the RUE with normal venous flow -D-dimer also elevated at admission but of undetermined significance -B/L upper extremities US showed partial compression of the right basilic vein, possible due to a chronic thrombus -B/L lower extremities US showed no evidence of DVT -Discontinued Heparin drip ( for therapeutic management of ACS), was stopped because dropped in H/H -continue anticoagulation as above 8. HTN -uncontrolled, improving -likely due to medication non-adherence and worsening renal function -Cardio consult appreciated Dr. Miles: continue with Hydralazine, Clonidine , Norvasc -monitor BP 9. DVT Prophylaxis -SCDs -Heparin 5000 units SC BID
[2017-04-25] MEDS: Multivitamin Vitamin B Complex (Nephro-Vite) Tab PO SCH (08:15)
[2017-04-25] MEDS: metOLazone 5 MG TAB PO SCH (08:16)
[2017-04-25] MEDS: Sevelamer Carb 0.8 gm/Packet PO SCH ×3 (08:16→16:22)
[2017-04-25] MEDS: Pantoprazole 40 mg EC Tab PO SCH (10:12)
[2017-04-25] MEDS: EPOETIN ALFA 10,000 UNIT/ML ML IV SCH (10:13)
--- NOTE | 2017-04-25 13:16 | CP.PCM.PN ---
Subjective - Date & Time of Evaluation Date of Evaluation: 04/25/17 Time of Evaluation: 13:15 - Subjective Subjective: Patient and bed keep retaining fluid despite given large doses of diuretics including Lasix and Zaroxolyn BUN/creatinine continued to rise Patient getting more edema 24 hours urine for creatinine clearance 12 mL per minute We will resume dialysis is not responding to diuretics Objective - Vital Signs/Intake and Output Vital Signs (last 24 hours): Temp Pulse Resp BP Pulse Ox 97.7 F 90 20 143/74 96 04/25/17 08:35 04/25/17 13:03 04/25/17 13:02 04/25/17 13:03 04/25/17 13:02 Intake and Output: 04/25/17 04/25/17 06:59 18:59 Intake Total 200 Output Total 150 Balance 50 - Medications Medications: Current Medications Amlodipine Besylate (Norvasc) 10 mg PO DAILY [facility] Last Admin: 04/25/17 08:15 Dose: 10 mg Aspirin (Aspirin Chewable) 81 mg PO DAILY [facility] Last Admin: 04/25/17 08:13 Dose: 81 mg Atorvastatin Calcium (Lipitor) 20 mg PO HS [facility] Last Admin: 04/24/17 21:14 Dose: 20 mg Carvedilol (Coreg) 6.25 mg PO Q12 [facility] Last Admin: 04/25/17 08:14 Dose: 6.25 mg Citalopram Hydrobromide (Celexa) 20 mg PO DAILY [facility] Last Admin: 04/25/17 08:14 Dose: 20 mg Clonidine HCl (Catapres) 0.3 mg PO BID [facility] Last Admin: 04/25/17 08:13 Dose: 0.3 mg Clopidogrel Bisulfate (Plavix) 75 mg PO DAILY [facility] Last Admin: 04/25/17 08:16 Dose: 75 mg Epoetin José Manuel (Procrit) 10,000 unit IV TTS [facility] Last Admin: 04/25/17 10:13 Dose: Not Given Ergocalciferol (Drisdol 50,000 Intl Units Cap) 1 cap PO Q7D [facility] Last Admin: 04/22/17 16:47 Dose: 1 cap Furosemide (Lasix) 80 mg IVP DAILY [facility] Last Admin: 04/25/17 10:11 Dose: 80 mg Guaifenesin/Dextromethorphan (Robitussin Dm) 10 ml PO Q4 PRN PRN Reason: Cough Heparin Sodium (Porcine) (Heparin) 5,000 units SC Q12 [facility] PRN Reason: Protocol Last Admin: 04/25/17 08:15 Dose: 5,000 units Hydralazine HCl (Apresoline) 50 mg PO TID [facility] Last Admin: 04/25/17 13:03 Dose: 50 mg Ipratropium [place] (Atrovent) 0.5 mg IH RQ6 PRN PRN Reason: Wheezing Metolazone (Zaroxolyn) 5 mg PO DAILY [facility] Last Admin: 04/25/17 08:16 Dose: 5 mg Nitroglycerin (Nitro-Bid 2% Oint) 1 inch TOP Q6H [facility] Last Admin: 04/25/17 13:03 Dose: 1 inch Pantoprazole Sodium (Protonix Ec Tab) 40 mg PO DAILY [facility] Last Admin: 04/25/17 10:12 Dose: 40 mg Prednisone (Prednisone Tab) 10 mg PO DAILY [facility] Last Admin: 04/25/17 08:16 Dose: 10 mg Fluticasone/Salmeterol (Advair Diskus 500/50) 1 puff IH Q12 [facility] Last Admin: 04/25/17 08:12 Dose: 1 puff Sevelamer Carbonate (Renvela) 1.6 gm PO TIDWM [facility] Last Admin: 04/25/17 13:04 Dose: 1.6 gm Spironolactone (Aldactone) 50 mg PO DAILY [facility] Last Admin: 04/25/17 08:13 Dose: 50 mg Vitamin B Complex/Vit C/Folic Acid (Nephro-Yemi) 1 tab PO DAILY [facility] Last Admin: 04/25/17 08:15 Dose: 1 tab - Labs Labs: 04/24/17 11:05 04/25/17 06:00 APTT 55.3 SECONDS (23.3-32.5) H 04/04/17 04:35 Assessment and Plan (1) Acute on chronic renal failure Status: Acute (2) Acute systolic congestive heart failure Status: Acute
[2017-04-25] MEDS: guaiFENesin DM 200 mg-20 mg/10 ml UD PO PRN (16:25)
[2017-04-25] MEDS ORDERED: POLYETHYLENE GLYCOL 3350 17 GM/Dose PACKET PO ONE (16:30)
[2017-04-26] MEDS: Nitroglycerin 2% 15 INCH/30 GM TUBE TOP SCH ×4 (00:59→18:45)
--- NOTE | 2017-04-26 08:32 | CP.PCM.PN ---
Subjective - Date & Time of Evaluation Date of Evaluation: 04/26/17 Time of Evaluation: 08:10 - Subjective Subjective: Patient seen and examined at bedside, no acute events overnight, ambulating without difficulty. Patient notes increased swelling of legs bilaterally. Has good appetite, is aware he will have hemodialysis today and understands his kidney function worsened without the hemodialysis. Has normal stool output and continues to have minimal urine output. Patient has no concerns or complaints at this time. Objective - Vital Signs/Intake and Output Vital Signs (last 24 hours): Temp Pulse Resp BP Pulse Ox 98.5 F 66 20 152/74 H 94 L 04/26/17 01:00 04/26/17 01:00 04/26/17 01:00 04/26/17 01:00 04/26/17 01:00 Intake and Output: 04/26/17 04/26/17 06:59 18:59 Intake Total 400 Output Total 900 Balance -500 - Medications Medications: Current Medications Amlodipine Besylate (Norvasc) 10 mg PO DAILY [facility] Last Admin: 04/25/17 08:15 Dose: 10 mg Aspirin (Aspirin Chewable) 81 mg PO DAILY [facility] Last Admin: 04/25/17 08:13 Dose: 81 mg Atorvastatin Calcium (Lipitor) 20 mg PO HS [facility] Last Admin: 04/25/17 21:16 Dose: 20 mg Carvedilol (Coreg) 6.25 mg PO Q12 [facility] Last Admin: 04/25/17 21:11 Dose: 6.25 mg Citalopram Hydrobromide (Celexa) 20 mg PO DAILY [facility] Last Admin: 04/25/17 08:14 Dose: 20 mg Clonidine HCl (Catapres) 0.3 mg PO BID [facility] Last Admin: 04/25/17 16:22 Dose: 0.3 mg Clopidogrel Bisulfate (Plavix) 75 mg PO DAILY [facility] Last Admin: 04/25/17 08:16 Dose: 75 mg Docusate Sodium (Colace) 100 mg PO DAILY [facility] Last Admin: 04/25/17 17:46 Dose: 100 mg Epoetin José Manuel (Procrit) 10,000 unit IV TTS [facility] Last Admin: 04/25/17 10:13 Dose: Not Given Ergocalciferol (Drisdol 50,000 Intl Units Cap) 1 cap PO Q7D [facility] Last Admin: 06/17/17 16:47 Dose: 1 cap Furosemide (Lasix) 80 mg IVP DAILY [facility] Last Admin: 04/25/17 10:11 Dose: 80 mg Guaifenesin/Dextromethorphan (Robitussin Dm) 10 ml PO Q4 PRN PRN Reason: Cough Last Admin: 04/25/17 16:25 Dose: 10 ml Heparin Sodium (Porcine) (Heparin) 5,000 units SC Q12 [facility] PRN Reason: Protocol Last Admin: 04/25/17 21:14 Dose: 5,000 units Hydralazine HCl (Apresoline) 50 mg PO TID [facility] Last Admin: 04/25/17 16:21 Dose: 50 mg Ipratropium [place] (Atrovent) 0.5 mg IH RQ6 PRN PRN Reason: Wheezing Metolazone (Zaroxolyn) 5 mg PO DAILY [facility] Last Admin: 04/25/17 08:16 Dose: 5 mg Nitroglycerin (Nitro-Bid 2% Oint) 1 inch TOP Q6H [facility] Last Admin: 04/26/17 00:59 Dose: 1 inch Pantoprazole Sodium (Protonix Ec Tab) 40 mg PO DAILY [facility] Last Admin: 04/25/17 10:12 Dose: 40 mg Prednisone (Prednisone Tab) 10 mg PO DAILY [facility] Last Admin: 04/25/17 08:16 Dose: 10 mg Fluticasone/Salmeterol (Advair Diskus 500/50) 1 puff IH Q12 [facility] Last Admin: 04/25/17 21:13 Dose: 1 puff Sevelamer Carbonate (Renvela) 1.6 gm PO TIDWM [facility] Last Admin: 04/25/17 16:22 Dose: 1.6 gm Spironolactone (Aldactone) 50 mg PO DAILY [facility] Last Admin: 04/25/17 08:13 Dose: 50 mg Vitamin B Complex/Vit C/Folic Acid (Nephro-Yemi) 1 tab PO DAILY [facility] Last Admin: 04/25/17 08:15 Dose: 1 tab - Labs Labs: 04/24/17 11:05 04/25/17 06:00 APTT 55.3 SECONDS (23.3-32.5) H 04/04/17 04:35 - Constitutional Appears: Well, No Acute Distress - Head Exam Head Exam: ATRAUMATIC, NORMOCEPHALIC - Eye Exam Eye Exam: EOMI, PERRL - ENT Exam ENT Exam: Mucous Membranes Moist - Neck Exam Neck Exam: Full ROM. absent: Lymphadenopathy - Respiratory Exam Respiratory Exam: Clear to Ausculation Bilateral, NORMAL BREATHING PATTERN - Cardiovascular Exam Cardiovascular Exam: REGULAR RHYTHM, +S1, +S2 - GI/Abdominal Exam GI & Abdominal Exam: Soft (obese), Normal Bowel Sounds. absent: Distended, Tenderness - Extremities Exam Extremities Exam: Full ROM, Pedal Edema (pitting +3 bilateral up to knees, distal stasis dermatitis) - Back Exam Back Exam: absent: CVA tenderness (L), CVA tenderness (R) - Neurological Exam Neurological Exam: Alert, Awake, CN II-XII Intact, Normal Gait, Oriented x3 - Psychiatric Exam Psychiatric exam: Normal Affect, Normal Mood - Skin Skin Exam: Dry, Intact, Warm Assessment and Plan - Assessment and Plan (Free Text) Assessment: 67 yr old M admitted for respiratory distress and found to have Acute on Chronic Kidney Injury and CHF exacerbation. HD will resume today as patients renal function did not respond to diuretics/medical management. Patient is stable. RUE PICC line and right chest PERMCath patent with dressing dry/intact. 1. 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 Diffuse Anasarca -stable, persists -likely secondary to CHF and CKD -CT Abd and Pelvis: severe diffuse anasarca, unremarkable appearance of urinary bladder, no focal or diffuse -Urology consult appreciated Dr. Henley: follow recommendations -diuretic management: lasix, Metolazone 5mg PO QD, Aldactone 50 mg PO QD 3. COPD -stable O2 saturation comfortable on room air, pt comfortable this AM -Likely 2dary to acute CHF Exacerbation vs NSTEMI vs acute on CKD vs multifocal PNA -CXR 04/03/17: multifocal hazy opacities increased bilaterally in lungs compared to prior CXR, left sided pleural effusion, dx includes edema,hemorrhage, multifocal PNA -CT Chest 04/04/17: Large bilateral pleural effusions, compressive atelectasis and upper lobe infiltrates, cardiomegaly, pericardial effusion-correlate for CHF -ID consult appreciated, Dr. Silver: follow recommendations , d/c'd Zosyn (s/p 10 days tx) - Prednisone 10mg PO QD -CXR 04/12/17: Small left pleural effusion and associated atelectasis or infiltrate, subtle infiltrate at the right lung base 4. 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 Systolic CHF with Acute Exacerbation -Echo 04/02/17: LVEF 30-35%, with generalized moderate hypokinesia particularly pronounced in the septum -Cardio consult appreciated Dr. Miles: patient is not a suitable candidate for invasive cardiac workup, recommend continue with Coreg 3.125mg Q12, SC Heparin 5,000 units BID, Lipitor 20 mg PO QD, Plavix 75mg QD -Lasix 80mg IVPB QD -ProBNP: improved to 87,400 (04/05/17) from 167,000 (04/02/17) -Not a good candidate for MAN-i due to impaired renal function -Strict I/Os. Daily weights. 6. NSTEMI -stable -Continue with aspirin 81 mg daily, Plavix 75 mg daily, Coreg 3.125mg PO Q12, Heparin 5,000 units SC BID -Not a good candidate for MAN inhibitor due to impaired renal function -Troponin elevated (serial measurement :0.285, 0.549, 0.384, 0.326) -Cardiology on board, consult appreciated Dr. Miles: f/u recommendations 7. Hx of RUE DVT -RUE DVT detected on 02/04/17 however patient was not a good candidate for predatory animal exterminator anticoagulation -RUE duplex 04/20/17: No evidence of vein thrombosis of the RUE with normal venous flow -D-dimer also elevated at admission but of undetermined significance -B/L upper extremities US showed partial compression of the right basilic vein, possible due to a chronic thrombus -B/L lower extremities US showed no evidence of DVT -Discontinued Heparin drip ( for therapeutic management of ACS), was stopped because dropped in H/H -continue anticoagulation as above 8. HTN -uncontrolled, improving -likely due to medication non-adherence and worsening renal function -Cardio consult appreciated Dr. Miles: continue with Hydralazine, Clonidine , Norvasc -monitor BP 9. DVT Prophylaxis -SCDs -Heparin 5000 units SC BID
[2017-04-26] MEDS: Fluticasone-Salmeterol 500-50mcg Diskus IH SCH ×2 (09:04→22:59)
[2017-04-26] MEDS: metOLazone 5 MG TAB PO SCH (09:05)
[2017-04-26] MEDS: Multivitamin Vitamin B Complex (Nephro-Vite) Tab PO SCH (09:05)
[2017-04-26] MEDS: Sevelamer Carb 0.8 gm/Packet PO SCH ×3 (09:06→16:29)
[2017-04-26] MEDS: Pantoprazole 40 mg EC Tab PO SCH (09:06)
--- NOTE | 2017-04-26 10:00 | CP.PCM.PN ---
Subjective - Date & Time of Evaluation Date of Evaluation: 04/26/17 Time of Evaluation: 09:57 - Subjective Subjective: Patient is out of bed Not responding to diuretics with increasing leg swollen and edema Rising BUN/creatinine Patient to resume dialysis today as order Sodium bath 138 Potassium 2 mEq Ultrafiltration about 3000 mL And continue hemodialysis. Objective - Vital Signs/Intake and Output Vital Signs (last 24 hours): Temp Pulse Resp BP Pulse Ox 98.4 F 100 H 18 179/86 H 95 04/26/17 08:32 04/26/17 09:09 04/26/17 08:32 04/26/17 09:09 04/26/17 08:32 Intake and Output: 04/26/17 04/26/17 06:59 18:59 Intake Total 400 Output Total 900 Balance -500 - Medications Medications: Current Medications Amlodipine Besylate (Norvasc) 10 mg PO DAILY [facility] Last Admin: 04/26/17 09:09 Dose: 10 mg Aspirin (Aspirin Chewable) 81 mg PO DAILY [facility] Last Admin: 04/26/17 09:07 Dose: 81 mg Atorvastatin Calcium (Lipitor) 20 mg PO HS [facility] Last Admin: 04/25/17 21:16 Dose: 20 mg Carvedilol (Coreg) 6.25 mg PO Q12 [facility] Last Admin: 04/26/17 09:05 Dose: 6.25 mg Citalopram Hydrobromide (Celexa) 20 mg PO DAILY [facility] Last Admin: 04/26/17 09:07 Dose: 20 mg Clonidine HCl (Catapres) 0.3 mg PO BID [facility] Last Admin: 04/26/17 09:06 Dose: 0.3 mg Clopidogrel Bisulfate (Plavix) 75 mg PO DAILY [facility] Last Admin: 04/26/17 09:06 Dose: 75 mg Docusate Sodium (Colace) 100 mg PO DAILY [facility] Last Admin: 04/26/17 09:05 Dose: 100 mg Epoetin José Manuel (Procrit) 10,000 unit IV TTS [facility] Last Admin: 04/25/17 10:13 Dose: Not Given Ergocalciferol (Drisdol 50,000 Intl Units Cap) 1 cap PO Q7D [facility] Last Admin: 04/22/17 16:47 Dose: 1 cap Furosemide (Lasix) 80 mg IVP DAILY [facility] Last Admin: 04/25/17 10:11 Dose: 80 mg Guaifenesin/Dextromethorphan (Robitussin Dm) 10 ml PO Q4 PRN PRN Reason: Cough Last Admin: 04/25/17 16:25 Dose: 10 ml Heparin Sodium (Porcine) (Heparin) 5,000 units SC Q12 [facility] PRN Reason: Protocol Last Admin: 04/26/17 09:09 Dose: 5,000 units Hydralazine HCl (Apresoline) 50 mg PO TID [facility] Last Admin: 04/26/17 09:05 Dose: 50 mg Ipratropium [place] (Atrovent) 0.5 mg IH RQ6 PRN PRN Reason: Wheezing Metolazone (Zaroxolyn) 5 mg PO DAILY [facility] Last Admin: 04/26/17 09:05 Dose: 5 mg Nitroglycerin (Nitro-Bid 2% Oint) 1 inch TOP Q6H [facility] Last Admin: 04/26/17 09:08 Dose: 1 inch Pantoprazole Sodium (Protonix Ec Tab) 40 mg PO DAILY [facility] Last Admin: 04/26/17 09:06 Dose: 40 mg Prednisone (Prednisone Tab) 10 mg PO DAILY [facility] Last Admin: 04/26/17 09:06 Dose: 10 mg Fluticasone/Salmeterol (Advair Diskus 500/50) 1 puff IH Q12 [facility] Last Admin: 04/26/17 09:04 Dose: 1 puff Sevelamer Carbonate (Renvela) 1.6 gm PO TIDWM [facility] Last Admin: 04/26/17 09:06 Dose: 1.6 gm Spironolactone (Aldactone) 50 mg PO DAILY [facility] Last Admin: 04/26/17 09:08 Dose: 50 mg Vitamin B Complex/Vit C/Folic Acid (Nephro-Yemi) 1 tab PO DAILY [facility] Last Admin: 04/26/17 09:05 Dose: 1 tab - Labs Labs: 04/24/17 11:05 04/25/17 06:00 APTT 55.3 SECONDS (23.3-32.5) H 04/04/17 04:35 Assessment and Plan (1) Acute on chronic renal failure Status: Acute (2) Acute systolic congestive heart failure Status: Acute
[2017-04-26] MEDS: Bacitracin 500 Units/gm Oint Foilpak UD TOP SCH ×2 (12:32→16:28)
[2017-04-26] MEDS: EPOETIN ALFA 10,000 UNIT/ML ML IV SCH (23:18)
[2017-04-27] MEDS: Nitroglycerin 2% 15 INCH/30 GM TUBE TOP SCH ×4 (02:58→19:45)
--- NOTE | 2017-04-27 06:58 | CP.PCM.PN ---
Subjective - Date & Time of Evaluation Date of Evaluation: 04/27/17 Time of Evaluation: 08:05 - Subjective Subjective: Patient seen and examined at bedside. In no acute distress, ambulating without difficulty. Denies chest pain, SOB, weakness or dizziness. Tolerated hemodialysis last night, continues to have minimal urine output, normal stool output. Has no concerns or complaints at this time. Objective - Vital Signs/Intake and Output Vital Signs (last 24 hours): Temp Pulse Resp BP Pulse Ox 98.3 F 94 H 20 142/85 98 04/27/17 00:10 04/27/17 00:10 04/27/17 00:10 04/27/17 00:10 04/27/17 00:10 Intake and Output: 04/26/17 04/27/17 18:59 06:59 Intake Total 200 Output Total 300 Balance -100 - Medications Medications: Current Medications Amlodipine Besylate (Norvasc) 10 mg PO DAILY [facility] Last Admin: 04/26/17 09:09 Dose: 10 mg Aspirin (Aspirin Chewable) 81 mg PO DAILY [facility] Last Admin: 04/26/17 09:07 Dose: 81 mg Atorvastatin Calcium (Lipitor) 20 mg PO HS [facility] Last Admin: 04/26/17 22:58 Dose: 20 mg Bacitracin (Bacitracin) 1 ea TOP TID [facility] Last Admin: 04/26/17 16:28 Dose: 1 ea Carvedilol (Coreg) 6.25 mg PO Q12 [facility] Last Admin: 04/26/17 22:55 Dose: 6.25 mg Citalopram Hydrobromide (Celexa) 20 mg PO DAILY [facility] Last Admin: 04/26/17 09:07 Dose: 20 mg Clonidine HCl (Catapres) 0.3 mg PO BID [facility] Last Admin: 04/26/17 16:28 Dose: 0.3 mg Clopidogrel Bisulfate (Plavix) 75 mg PO DAILY [facility] Last Admin: 04/26/17 09:06 Dose: 75 mg Docusate Sodium (Colace) 100 mg PO DAILY [facility] Last Admin: 04/26/17 09:05 Dose: 100 mg Epoetin José Manuel (Procrit) 10,000 unit IV MWF [facility] Last Admin: 04/26/17 23:18 Dose: 10,000 unit Ergocalciferol (Drisdol 50,000 Intl Units Cap) 1 cap PO Q7D [facility] Last Admin: 04/22/17 16:47 Dose: 1 cap Furosemide (Lasix) 80 mg IVP DAILY [facility] Last Admin: 04/26/17 10:41 Dose: 80 mg Guaifenesin/Dextromethorphan (Robitussin Dm) 10 ml PO Q4 PRN PRN Reason: Cough Last Admin: 04/25/17 16:25 Dose: 10 ml Heparin Sodium (Porcine) (Heparin) 5,000 units SC Q12 [facility] PRN Reason: Protocol Last Admin: 04/26/17 23:03 Dose: 5,000 units Hydralazine HCl (Apresoline) 50 mg PO TID [facility] Last Admin: 04/26/17 16:28 Dose: 50 mg Ipratropium [place] (Atrovent) 0.5 mg IH RQ6 PRN PRN Reason: Wheezing Metolazone (Zaroxolyn) 5 mg PO DAILY [facility] Last Admin: 04/26/17 09:05 Dose: 5 mg Nitroglycerin (Nitro-Bid 2% Oint) 1 inch TOP Q6H [facility] Last Admin: 04/27/17 02:58 Dose: 1 inch Pantoprazole Sodium (Protonix Ec Tab) 40 mg PO DAILY [facility] Last Admin: 04/26/17 09:06 Dose: 40 mg Prednisone (Prednisone Tab) 10 mg PO DAILY [facility] Last Admin: 04/26/17 09:06 Dose: 10 mg Fluticasone/Salmeterol (Advair Diskus 500/50) 1 puff IH Q12 [facility] Last Admin: 04/26/17 22:59 Dose: 1 puff Sevelamer Carbonate (Renvela) 1.6 gm PO TIDWM [facility] Last Admin: 04/26/17 16:29 Dose: 1.6 gm Spironolactone (Aldactone) 50 mg PO DAILY [facility] Last Admin: 04/26/17 09:08 Dose: 50 mg Vitamin B Complex/Vit C/Folic Acid (Nephro-Yemi) 1 tab PO DAILY [facility] Last Admin: 04/26/17 09:05 Dose: 1 tab - Labs Labs: 04/24/17 11:05 04/25/17 06:00 APTT 55.3 SECONDS (23.3-32.5) H 04/04/17 04:35 - Constitutional Appears: Non-toxic, No Acute Distress - Head Exam Head Exam: ATRAUMATIC, NORMOCEPHALIC - Eye Exam Eye Exam: EOMI, PERRL - ENT Exam ENT Exam: Mucous Membranes Moist - Neck Exam Neck Exam: Full ROM. absent: Lymphadenopathy - Respiratory Exam Respiratory Exam: Clear to Ausculation Bilateral, NORMAL BREATHING PATTERN - Cardiovascular Exam Cardiovascular Exam: REGULAR RHYTHM, +S1, +S2 - GI/Abdominal Exam GI & Abdominal Exam: Soft (obese), Normal Bowel Sounds. absent: Distended, Tenderness - Extremities Exam Extremities Exam: Full ROM, Pedal Edema (bilateral +3 pitting up to knees with stasis dermatitis) - Back Exam Back Exam: absent: CVA tenderness (L), CVA tenderness (R) - Neurological Exam Neurological Exam: Alert, Awake, CN II-XII Intact, Normal Gait, Oriented x3 - Psychiatric Exam Psychiatric exam: Normal Affect, Normal Mood - Skin Skin Exam: Dry, Intact, Warm Assessment and Plan - Assessment and Plan (Free Text) Assessment: 67 yr old M admitted for respiratory distress and found to have Acute on Chronic Kidney Injury and CHF exacerbation. Patient tolerated hemodialysis session last night. Patient is stable. RUE PICC line and right chest PERMCath patent with dressing dry/intact. SW is working on arranging outpatient hemodialysis. 1. 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 Diffuse Anasarca -stable, persists -likely secondary to CHF and CKD -CT Abd and Pelvis: severe diffuse anasarca, unremarkable appearance of urinary bladder, no focal or diffuse -Urology consult appreciated Dr. Henley: follow recommendations -diuretic management: lasix, Metolazone 5mg PO QD, Aldactone 50 mg PO QD 3. COPD -stable O2 saturation comfortable on room air, pt comfortable this AM -Likely 2dary to acute CHF Exacerbation vs NSTEMI vs acute on CKD vs multifocal PNA -CXR 04/03/17: multifocal hazy opacities increased bilaterally in lungs compared to prior CXR, left sided pleural effusion, dx includes edema,hemorrhage, multifocal PNA -CT Chest 04/04/17: Large bilateral pleural effusions, compressive atelectasis and upper lobe infiltrates, cardiomegaly, pericardial effusion-correlate for CHF -ID consult appreciated, Dr. Silver: follow recommendations , d/c'd Zosyn (s/p 10 days tx) - Prednisone 10mg PO QD -CXR 04/12/17: Small left pleural effusion and associated atelectasis or infiltrate, subtle infiltrate at the right lung base 4. 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 Systolic CHF with Acute Exacerbation -Echo 04/02/17: LVEF 30-35%, with generalized moderate hypokinesia particularly pronounced in the septum -Cardio consult appreciated Dr. Miles: patient is not a suitable candidate for invasive cardiac workup, recommend continue with Coreg 6.25mg Q12, Heparin 5,000 units SC BID, Lipitor 20 mg PO QD, Plavix 75mg QD -Lasix 80mg IVPB QD -ProBNP: improved to 87,400 (04/05/17) from 167,000 (04/02/17) -Not a good candidate for MAN-i due to impaired renal function -Strict I/Os. Daily weights. 6. NSTEMI -stable -Continue with aspirin 81 mg daily, Plavix 75 mg daily, Coreg 6.25mg PO Q12, Heparin 5,000 units SC BID -Not a good candidate for MAN inhibitor due to impaired renal function -Troponin elevated (serial measurement :0.285, 0.549, 0.384, 0.326) -Cardiology on board, consult appreciated Dr. Miles: f/u recommendations 7. 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 HTN -uncontrolled, improving -likely due to medication non-adherence and worsening renal function -Cardio consult appreciated Dr. Miles: continue with Hydralazine, Clonidine , Norvasc -monitor BP 9. DVT Prophylaxis -SCDs -Heparin 5000 units SC BID
[2017-04-27] MEDS: Fluticasone-Salmeterol 500-50mcg Diskus IH SCH ×2 (08:27→22:10)
[2017-04-27] MEDS: Multivitamin Vitamin B Complex (Nephro-Vite) Tab PO SCH (08:33)
[2017-04-27] MEDS: Pantoprazole 40 mg EC Tab PO SCH (08:36)
[2017-04-27] MEDS: Sevelamer Carb 0.8 gm/Packet PO SCH ×3 (08:36→17:18)
[2017-04-27] MEDS: metOLazone 5 MG TAB PO SCH (08:37)
[2017-04-27] MEDS: Bacitracin 500 Units/gm Oint Foilpak UD TOP SCH ×3 (08:46→17:00)
[2017-04-28] MEDS: Nitroglycerin 2% 15 INCH/30 GM TUBE TOP SCH ×5 (01:00→19:30)
[2017-04-28 06:36] LABS: HEMOGLOBIN 8.9 g/dL (12.0-18.0); MEAN CELL VOLUME 93.4 fl (80.0-94.0); MEAN CORPUSCULAR HEMOGLOBIN 30.3 pg (27.0-31.0); MEAN CORPUSCULAR HGB CONC 32.4 g/dL (33.0-37.0); RBC 2.93 Mil/uL (4.40-5.90); RED CELL DISTRIBUTION WIDTH 21.5 % (11.5-14.5); WHITE BLOOD COUNT 5.2 K/uL (4.8-10.8)
[2017-04-28 06:51] LABS: CALCIUM 6.9 mg/dL (8.4-10.2)
[2017-04-28] MEDS: Fluticasone-Salmeterol 500-50mcg Diskus IH SCH ×2 (09:05→21:54)
[2017-04-28] MEDS: Multivitamin Vitamin B Complex (Nephro-Vite) Tab PO SCH (09:05)
[2017-04-28] MEDS: metOLazone 5 MG TAB PO SCH (09:06)
[2017-04-28] MEDS: Pantoprazole 40 mg EC Tab PO SCH (09:06)
[2017-04-28] MEDS: Sevelamer Carb 0.8 gm/Packet PO SCH ×3 (09:06→17:06)
[2017-04-28] MEDS: Bacitracin 500 Units/gm Oint Foilpak UD TOP SCH ×3 (09:12→17:07)
--- NOTE | 2017-04-28 12:19 | CP.PCM.PN ---
Subjective - Date & Time of Evaluation Date of Evaluation: 04/28/17 Time of Evaluation: 07:40 - Subjective Subjective: Patient seen and examined at bedside. Reports increased swelling of abdomen on left side, blood pressure remains high this AM. Patient is aware his worsening kidney function requires hemodialysis 3 time a week. Patient denies SOB, chest pain or weakness. He continues to have minimal urine output. Objective - Vital Signs/Intake and Output Vital Signs (last 24 hours): Temp Pulse Resp BP Pulse Ox 98.5 F 98 H 18 179/89 H 96 04/28/17 09:00 04/28/17 09:00 04/28/17 09:00 04/28/17 09:13 04/28/17 09:00 - Medications Medications: Current Medications Amlodipine Besylate (Norvasc) 10 mg PO DAILY [facility] Last Admin: 04/27/17 08:34 Dose: 10 mg Aspirin (Aspirin Chewable) 81 mg PO DAILY [facility] Last Admin: 04/28/17 09:05 Dose: 81 mg Atorvastatin Calcium (Lipitor) 20 mg PO HS [facility] Last Admin: 04/27/17 22:15 Dose: 20 mg Bacitracin (Bacitracin) 1 ea TOP TID [facility] Last Admin: 04/28/17 09:12 Dose: 1 ea Carvedilol (Coreg) 6.25 mg PO Q12 [facility] Last Admin: 04/28/17 09:11 Dose: 6.25 mg Citalopram Hydrobromide (Celexa) 20 mg PO DAILY [facility] Last Admin: 04/28/17 09:05 Dose: 20 mg Clonidine HCl (Catapres) 0.3 mg PO BID [facility] Last Admin: 04/28/17 09:13 Dose: 0.3 mg Clopidogrel Bisulfate (Plavix) 75 mg PO DAILY [facility] Last Admin: 04/28/17 09:06 Dose: 75 mg Docusate Sodium (Colace) 100 mg PO DAILY [facility] Last Admin: 04/28/17 09:06 Dose: 100 mg Epoetin José Manuel (Procrit) 10,000 unit IV MWF [facility] Last Admin: 04/26/17 23:18 Dose: 10,000 unit Ergocalciferol (Drisdol 50,000 Intl Units Cap) 1 cap PO Q7D [facility] Last Admin: 04/22/17 16:47 Dose: 1 cap Furosemide (Lasix) 80 mg IVP DAILY [facility] Last Admin: 04/27/17 10:00 Dose: 80 mg Guaifenesin/Dextromethorphan (Robitussin Dm) 10 ml PO Q4 PRN PRN Reason: Cough Last Admin: 04/25/17 16:25 Dose: 10 ml Heparin Sodium (Porcine) (Heparin) 5,000 units SC Q12 [facility] PRN Reason: Protocol Last Admin: 04/28/17 09:07 Dose: 5,000 units Hydralazine HCl (Apresoline) 50 mg PO TID [facility] Last Admin: 04/28/17 09:10 Dose: 50 mg Ipratropium [place] (Atrovent) 0.5 mg IH RQ6 PRN PRN Reason: Wheezing Metolazone (Zaroxolyn) 5 mg PO DAILY [facility] Last Admin: 04/28/17 09:06 Dose: 5 mg Nitroglycerin (Nitro-Bid 2% Oint) 1 inch TOP Q6H [facility] Last Admin: 04/28/17 06:21 Dose: 1 inch Pantoprazole Sodium (Protonix Ec Tab) 40 mg PO DAILY [facility] Last Admin: 04/28/17 09:06 Dose: 40 mg Prednisone (Prednisone Tab) 10 mg PO DAILY [facility] Last Admin: 04/28/17 09:07 Dose: 10 mg Fluticasone/Salmeterol (Advair Diskus 500/50) 1 puff IH Q12 [facility] Last Admin: 04/28/17 09:05 Dose: 1 puff Sevelamer Carbonate (Renvela) 1.6 gm PO TIDWM [facility] Last Admin: 04/28/17 09:06 Dose: 1.6 gm Spironolactone (Aldactone) 50 mg PO DAILY [facility] Last Admin: 04/28/17 09:06 Dose: 50 mg Vitamin B Complex/Vit C/Folic Acid (Nephro-Yemi) 1 tab PO DAILY [facility] Last Admin: 04/28/17 09:05 Dose: 1 tab - Labs Labs: 04/28/17 06:10 04/28/17 06:10 APTT 55.3 SECONDS (23.3-32.5) H 04/04/17 04:35 - Constitutional Appears: No Acute Distress - Head Exam Head Exam: ATRAUMATIC, NORMOCEPHALIC - Eye Exam Eye Exam: EOMI, PERRL - ENT Exam ENT Exam: Mucous Membranes Moist - Neck Exam Neck Exam: Full ROM. absent: Lymphadenopathy - Respiratory Exam Respiratory Exam: Clear to Ausculation Bilateral, NORMAL BREATHING PATTERN - Cardiovascular Exam Cardiovascular Exam: REGULAR RHYTHM, +S1, +S2 - GI/Abdominal Exam GI & Abdominal Exam: Soft (with increased diffuse anasarca of left lower abdominal quadrant), Normal Bowel Sounds. absent: Tenderness - Exam Exam: Scrotal Swelling (and penile swelling present, nontender) - Extremities Exam Extremities Exam: Full ROM (RUE PICC line and right chest PERMCath in place, dressings clean and intact), Pedal Edema (+3 pitting up to knees, bilaterally, stasis dermatitis present) - Back Exam Back Exam: absent: CVA tenderness (L), CVA tenderness (R) - Neurological Exam Neurological Exam: Alert, Awake, CN II-XII Intact - Psychiatric Exam Psychiatric exam: Normal Affect, Normal Mood - Skin Skin Exam: Dry, Intact, Warm Assessment and Plan - Assessment and Plan (Free Text) Assessment: 67 yr old M admitted for respiratory distress and found to have Acute on Chronic Kidney Injury and CHF exacerbation. Patient has ESRD and needs dialysis 3 times per week. RUE PICC line and right chest PERMCath patent with dressing dry/intact. SW is working on arranging outpatient hemodialysis. Has increased diffuse anasarca of left lower abdominal quadrant. 1. 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 Diffuse Anasarca -stable, persists -likely secondary to CHF and CKD -CT Abd and Pelvis: severe diffuse anasarca, unremarkable appearance of urinary bladder, no focal or diffuse -Urology consult appreciated Dr. Henley: follow recommendations -diuretic management: lasix, Metolazone 5mg PO QD, Aldactone 50 mg PO QD 3. COPD -stable O2 saturation wnl on room air -Likely 2dary to acute CHF Exacerbation vs NSTEMI vs acute on CKD vs multifocal PNA -CXR 04/03/17: multifocal hazy opacities increased bilaterally in lungs compared to prior CXR, left sided pleural effusion, dx includes edema,hemorrhage, multifocal PNA -CT Chest 04/04/17: Large bilateral pleural effusions, compressive atelectasis and upper lobe infiltrates, cardiomegaly, pericardial effusion-correlate for CHF -ID consult appreciated, Dr. Silver: follow recommendations , d/c'd Zosyn (s/p 10 days tx) -Prednisone 10mg PO QD -CXR 04/12/17: Small left pleural effusion and associated atelectasis or infiltrate, subtle infiltrate at the right lung base 4. 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 Systolic CHF with Acute Exacerbation -Echo 04/02/17: LVEF 30-35%, with generalized moderate hypokinesia particularly pronounced in the septum -Cardio consult appreciated Dr. Miles: patient is not a suitable candidate for invasive cardiac workup, recommend continue with Coreg 6.25mg Q12, Heparin 5,000 units SC BID, Lipitor 20 mg PO QD, Plavix 75mg QD -Lasix 80mg IVPB QD -ProBNP: improved to 87,400 (04/05/17) from 167,000 (04/02/17) -Not a good candidate for MAN-i due to impaired renal function -Strict I/Os. Daily weights. 6. NSTEMI -stable -Continue with aspirin 81 mg daily, Plavix 75 mg daily, Coreg 6.25mg PO Q12, Heparin 5,000 units SC BID -Not a good candidate for MAN inhibitor due to impaired renal function -Troponin elevated (serial measurement :0.285, 0.549, 0.384, 0.326) -Cardiology on board, consult appreciated Dr. Miles: f/u recommendations 7. Hx of RUE DVT -RUE DVT detected on 02/04/17 however patient was not a good candidate for custodial anticoagulation -RUE duplex 04/20/17: No evidence of vein thrombosis of the RUE with normal venous flow -D-dimer also elevated at admission but of undetermined significance -B/L upper extremities US showed partial compression of the right basilic vein, possible due to a chronic thrombus -B/L lower extremities US showed no evidence of DVT -Discontinued Heparin drip ( for therapeutic management of ACS), was stopped because dropped in H/H -continue anticoagulation as above 8. HTN -uncontrolled -likely due to worsening renal function, CHF -Cardio consult appreciated Dr. Miles: continue with Hydralazine, Clonidine , Norvasc -monitor BP 9. DVT Prophylaxis -SCDs -Heparin 5000 units SC BID
--- NOTE | 2017-04-28 13:08 | CP.PCM.PN ---
Subjective - Date & Time of Evaluation Date of Evaluation: 04/28/17 Time of Evaluation: 13:06 - Subjective Subjective: Patient appeared to be comfortable Receiving dialysis 3 times a week Decrease leg swollen somewhat The impression and plan Patient could be managed as outpatient however waiting for social placement Objective - Vital Signs/Intake and Output Vital Signs (last 24 hours): Temp Pulse Resp BP Pulse Ox 98.5 F 98 H 18 179/89 H 96 04/28/17 09:00 04/28/17 09:00 04/28/17 09:00 04/28/17 09:13 04/28/17 09:00 - Medications Medications: Current Medications Amlodipine Besylate (Norvasc) 10 mg PO DAILY [facility] Last Admin: 04/27/17 08:34 Dose: 10 mg Aspirin (Aspirin Chewable) 81 mg PO DAILY [facility] Last Admin: 04/28/17 09:05 Dose: 81 mg Atorvastatin Calcium (Lipitor) 20 mg PO HS [facility] Last Admin: 04/27/17 22:15 Dose: 20 mg Bacitracin (Bacitracin) 1 ea TOP TID [facility] Last Admin: 04/28/17 09:12 Dose: 1 ea Carvedilol (Coreg) 6.25 mg PO Q12 [facility] Last Admin: 04/28/17 09:11 Dose: 6.25 mg Citalopram Hydrobromide (Celexa) 20 mg PO DAILY [facility] Last Admin: 04/28/17 09:05 Dose: 20 mg Clonidine HCl (Catapres) 0.3 mg PO BID [facility] Last Admin: 04/28/17 09:13 Dose: 0.3 mg Clopidogrel Bisulfate (Plavix) 75 mg PO DAILY [facility] Last Admin: 04/28/17 09:06 Dose: 75 mg Docusate Sodium (Colace) 100 mg PO DAILY [facility] Last Admin: 04/28/17 09:06 Dose: 100 mg Epoetin José Manuel (Procrit) 10,000 unit IV MWF [facility] Last Admin: 04/26/17 23:18 Dose: 10,000 unit Ergocalciferol (Drisdol 50,000 Intl Units Cap) 1 cap PO Q7D [facility] Last Admin: 04/22/17 16:47 Dose: 1 cap Furosemide (Lasix) 80 mg IVP DAILY [facility] Last Admin: 04/27/17 10:00 Dose: 80 mg Guaifenesin/Dextromethorphan (Robitussin Dm) 10 ml PO Q4 PRN PRN Reason: Cough Last Admin: 04/25/17 16:25 Dose: 10 ml Heparin Sodium (Porcine) (Heparin) 5,000 units SC Q12 [facility] PRN Reason: Protocol Last Admin: 04/28/17 09:07 Dose: 5,000 units Hydralazine HCl (Apresoline) 50 mg PO TID [facility] Last Admin: 04/28/17 09:10 Dose: 50 mg Ipratropium [place] (Atrovent) 0.5 mg IH RQ6 PRN PRN Reason: Wheezing Metolazone (Zaroxolyn) 5 mg PO DAILY [facility] Last Admin: 04/28/17 09:06 Dose: 5 mg Nitroglycerin (Nitro-Bid 2% Oint) 1 inch TOP Q6H [facility] Last Admin: 04/28/17 06:21 Dose: 1 inch Pantoprazole Sodium (Protonix Ec Tab) 40 mg PO DAILY [facility] Last Admin: 04/28/17 09:06 Dose: 40 mg Prednisone (Prednisone Tab) 10 mg PO DAILY [facility] Last Admin: 04/28/17 09:07 Dose: 10 mg Fluticasone/Salmeterol (Advair Diskus 500/50) 1 puff IH Q12 [facility] Last Admin: 04/28/17 09:05 Dose: 1 puff Sevelamer Carbonate (Renvela) 1.6 gm PO TIDWM [facility] Last Admin: 04/28/17 12:45 Dose: 1.6 gm Spironolactone (Aldactone) 50 mg PO DAILY [facility] Last Admin: 04/28/17 09:06 Dose: 50 mg Vitamin B Complex/Vit C/Folic Acid (Nephro-Yemi) 1 tab PO DAILY [facility] Last Admin: 04/28/17 09:05 Dose: 1 tab - Labs Labs: 04/28/17 06:10 04/28/17 06:10 APTT 55.3 SECONDS (23.3-32.5) H 04/04/17 04:35 Assessment and Plan (1) Acute on chronic renal failure Status: Acute (2) Acute systolic congestive heart failure Status: Acute
[2017-04-28] MEDS: EPOETIN ALFA 10,000 UNIT/ML ML IV SCH (16:22)
[2017-04-29] MEDS: Nitroglycerin 2% 15 INCH/30 GM TUBE TOP SCH ×4 (00:21→19:30)
[2017-04-29] MEDS: Fluticasone-Salmeterol 500-50mcg Diskus IH SCH ×2 (08:34→21:38)
[2017-04-29] MEDS: Sevelamer Carb 0.8 gm/Packet PO SCH ×3 (08:35→16:58)
[2017-04-29] MEDS: Multivitamin Vitamin B Complex (Nephro-Vite) Tab PO SCH (08:38)
[2017-04-29] MEDS: metOLazone 5 MG TAB PO SCH (08:39)
[2017-04-29] MEDS: Pantoprazole 40 mg EC Tab PO SCH (08:39)
[2017-04-29] MEDS: Bacitracin 500 Units/gm Oint Foilpak UD TOP SCH ×3 (08:50→16:56)
--- NOTE | 2017-04-29 11:22 | CP.PCM.PN ---
Subjective - Date & Time of Evaluation Date of Evaluation: 04/29/17 Time of Evaluation: 08:30 - Subjective Subjective: Patient seen and examined at bedside, tolerated hemodialysis well yesterday. Notes his diffuse body swelling persists but has slightly improved since his hemodialysis. Patient denies chest pain, SOB, weakness or dizziness. Remains with minimal urine output. Objective - Vital Signs/Intake and Output Vital Signs (last 24 hours): Temp Pulse Resp BP Pulse Ox 98.5 F 66 18 164/82 H 97 04/29/17 07:52 04/29/17 07:52 04/29/17 07:52 04/29/17 08:37 04/29/17 07:52 - Medications Medications: Current Medications Amlodipine Besylate (Norvasc) 10 mg PO DAILY [facility] Last Admin: 04/29/17 08:39 Dose: 10 mg Aspirin (Aspirin Chewable) 81 mg PO DAILY [facility] Last Admin: 04/29/17 08:39 Dose: 81 mg Atorvastatin Calcium (Lipitor) 20 mg PO HS [facility] Last Admin: 04/28/17 21:52 Dose: 20 mg Bacitracin (Bacitracin) 1 ea TOP TID [facility] Last Admin: 04/29/17 08:50 Dose: 1 ea Carvedilol (Coreg) 6.25 mg PO Q12 [facility] Last Admin: 04/29/17 08:38 Dose: 6.25 mg Citalopram Hydrobromide (Celexa) 20 mg PO DAILY [facility] Last Admin: 04/29/17 08:39 Dose: 20 mg Clonidine HCl (Catapres) 0.3 mg PO BID [facility] Last Admin: 04/29/17 08:38 Dose: 0.3 mg Clopidogrel Bisulfate (Plavix) 75 mg PO DAILY [facility] Last Admin: 04/29/17 08:39 Dose: 75 mg Docusate Sodium (Colace) 100 mg PO DAILY [facility] Last Admin: 04/29/17 08:50 Dose: 100 mg Epoetin José Manuel (Procrit) 10,000 unit IV MWF [facility] Last Admin: 04/28/17 16:22 Dose: 10,000 unit Ergocalciferol (Drisdol 50,000 Intl Units Cap) 1 cap PO Q7D [facility] Last Admin: 04/22/17 16:47 Dose: 1 cap Furosemide (Lasix) 80 mg IVP DAILY [facility] Last Admin: 04/29/17 08:37 Dose: 80 mg Guaifenesin/Dextromethorphan (Robitussin Dm) 10 ml PO Q4 PRN PRN Reason: Cough Last Admin: 04/25/17 16:25 Dose: 10 ml Heparin Sodium (Porcine) (Heparin) 5,000 units SC Q12 [facility] PRN Reason: Protocol Last Admin: 04/29/17 08:46 Dose: 5,000 units Hydralazine HCl (Apresoline) 50 mg PO TID [facility] Last Admin: 04/29/17 08:39 Dose: 50 mg Ipratropium [place] (Atrovent) 0.5 mg IH RQ6 PRN PRN Reason: Wheezing Metolazone (Zaroxolyn) 5 mg PO DAILY [facility] Last Admin: 04/29/17 08:39 Dose: 5 mg Nitroglycerin (Nitro-Bid 2% Oint) 1 inch TOP Q6H [facility] Last Admin: 04/29/17 06:48 Dose: 1 inch Pantoprazole Sodium (Protonix Ec Tab) 40 mg PO DAILY [facility] Last Admin: 04/29/17 08:39 Dose: 40 mg Prednisone (Prednisone Tab) 10 mg PO DAILY [facility] Last Admin: 04/29/17 08:51 Dose: 10 mg Fluticasone/Salmeterol (Advair Diskus 500/50) 1 puff IH Q12 [facility] Last Admin: 04/29/17 08:34 Dose: 1 puff Sevelamer Carbonate (Renvela) 1.6 gm PO TIDWM [facility] Last Admin: 04/29/17 08:35 Dose: 1.6 gm Spironolactone (Aldactone) 50 mg PO DAILY [facility] Last Admin: 04/29/17 08:39 Dose: 50 mg Vitamin B Complex/Vit C/Folic Acid (Nephro-Yemi) 1 tab PO DAILY [facility] Last Admin: 04/29/17 08:38 Dose: 1 tab - Labs Labs: 04/28/17 06:10 04/28/17 06:10 APTT 55.3 SECONDS (23.3-32.5) H 04/04/17 04:35 - Constitutional Appears: Non-toxic, No Acute Distress - Head Exam Head Exam: ATRAUMATIC, NORMOCEPHALIC - Eye Exam Eye Exam: EOMI, PERRL - ENT Exam ENT Exam: Mucous Membranes Moist - Neck Exam Neck Exam: Full ROM. absent: Lymphadenopathy - Respiratory Exam Respiratory Exam: Clear to Ausculation Bilateral, NORMAL BREATHING PATTERN - Cardiovascular Exam Cardiovascular Exam: REGULAR RHYTHM, +S1, +S2 - GI/Abdominal Exam GI & Abdominal Exam: Soft (obese with diffuse anasarca ), Normal Bowel Sounds. absent: Tenderness - Extremities Exam Extremities Exam: Full ROM, Pedal Edema (pitting +3 bilaterally up to knees). absent: Calf Tenderness Assessment and Plan - Assessment and Plan (Free Text) Assessment: 67 yr old M admitted for respiratory distress and found to have Acute on Chronic Kidney Injury and CHF exacerbation. Patient has ESRD and needs dialysis 3 times per week. RUE PICC line and right chest PERMCath patent with dressing dry/intact. SW is working on arranging outpatient hemodialysis. Has increased diffuse anasarca of left lower abdominal quadrant which is mildy improved today after HD yesterday. Patient remains with minimal urine output. 1. 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 Diffuse Anasarca -stable, persists -likely secondary to CHF and CKD -CT Abd and Pelvis: severe diffuse anasarca, unremarkable appearance of urinary bladder, no focal or diffuse -Urology consult appreciated Dr. Henley: follow recommendations -diuretic management: lasix, Metolazone 5mg PO QD, Aldactone 50 mg PO QD 3. COPD -stable O2 saturation wnl on room air -Likely 2dary to acute CHF Exacerbation vs NSTEMI vs acute on CKD vs multifocal PNA -CXR 04/03/17: multifocal hazy opacities increased bilaterally in lungs compared to prior CXR, left sided pleural effusion, dx includes edema,hemorrhage, multifocal PNA -CT Chest 04/04/17: Large bilateral pleural effusions, compressive atelectasis and upper lobe infiltrates, cardiomegaly, pericardial effusion-correlate for CHF -ID consult appreciated, Dr. Silver: follow recommendations , d/c'd Zosyn (s/p 10 days tx) -Prednisone 10mg PO QD -CXR 6/7/17: Small left pleural effusion and associated atelectasis or infiltrate, subtle infiltrate at the right lung base 4. 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 Systolic CHF with Acute Exacerbation -Echo 04/02/17: LVEF 30-35%, with generalized moderate hypokinesia particularly pronounced in the septum -Cardio consult appreciated Dr. Miles: patient is not a suitable candidate for invasive cardiac workup, recommend continue with Coreg 6.25mg Q12, Heparin 5,000 units SC BID, Lipitor 20 mg PO QD, Plavix 75mg QD -Lasix 80mg IVPB QD -ProBNP: improved to 87,400 (04/05/17) from 167,000 (04/02/17) -Not a good candidate for MAN-i due to impaired renal function -Strict I/Os. Daily weights. 6. NSTEMI -stable -Continue with aspirin 81 mg daily, Plavix 75 mg daily, Coreg 6.25mg PO Q12, Heparin 5,000 units SC BID -Not a good candidate for MAN inhibitor due to impaired renal function -Troponin elevated (serial measurement :0.285, 0.549, 0.384, 0.326) -Cardiology on board, consult appreciated Dr. Miles: f/u recommendations 7. Hx of RUE DVT -RUE DVT detected on 02/04/17 however patient was not a good candidate for nursing home anticoagulation -RUE duplex 04/20/17: No evidence of vein thrombosis of the RUE with normal venous flow -D-dimer also elevated at admission but of undetermined significance -B/L upper extremities US showed partial compression of the right basilic vein, possible due to a chronic thrombus -B/L lower extremities US showed no evidence of DVT -Discontinued Heparin drip ( for therapeutic management of ACS), was stopped because dropped in H/H -continue anticoagulation as above 8. HTN -uncontrolled -likely due to worsening renal function, CHF -Cardio consult appreciated Dr. Miles: continue with Hydralazine, Clonidine , Norvasc -monitor BP 9. DVT Prophylaxis -SCDs -Heparin 5000 units SC BID
[2017-04-29] MEDS: Ergocalciferol 50,000 Intl Units Cap PO SCH (16:55)
[2017-04-30] MEDS: Nitroglycerin 2% 15 INCH/30 GM TUBE TOP SCH ×4 (01:00→18:35)
[2017-04-30] MEDS: Fluticasone-Salmeterol 500-50mcg Diskus IH SCH ×2 (09:38→21:00)
[2017-04-30] MEDS: Sevelamer Carb 0.8 gm/Packet PO SCH ×3 (09:39→16:55)
[2017-04-30] MEDS: metOLazone 5 MG TAB PO SCH (09:39)
[2017-04-30] MEDS: Multivitamin Vitamin B Complex (Nephro-Vite) Tab PO SCH (09:39)
[2017-04-30] MEDS: Pantoprazole 40 mg EC Tab PO SCH (09:40)
[2017-04-30] MEDS: Bacitracin 500 Units/gm Oint Foilpak UD TOP SCH ×3 (09:59→16:54)
--- NOTE | 2017-04-30 10:20 | CP.PCM.PN ---
Subjective - Date & Time of Evaluation Date of Evaluation: 04/30/17 Time of Evaluation: 08:40 - Subjective Subjective: Patient seen and examined at bedside. No noted overnight events,. Notes his diffuse body swelling persists but has slightly improved since his hemodialysis. Patient denies chest pain, SOB, weakness or dizziness.Improvement in urine output as per patient. Objective - Vital Signs/Intake and Output Vital Signs (last 24 hours): Temp Pulse Resp BP Pulse Ox 98.1 F 73 18 173/78 H 94 L 04/30/17 08:01 04/30/17 09:42 04/30/17 08:01 04/30/17 09:42 04/30/17 08:01 - Medications Medications: Current Medications Amlodipine Besylate (Norvasc) 10 mg PO DAILY [facility] Last Admin: 04/30/17 09:42 Dose: 10 mg Aspirin (Aspirin Chewable) 81 mg PO DAILY [facility] Last Admin: 04/30/17 09:39 Dose: 81 mg Atorvastatin Calcium (Lipitor) 20 mg PO HS [facility] Last Admin: 04/29/17 21:40 Dose: 20 mg Bacitracin (Bacitracin) 1 ea TOP TID [facility] Last Admin: 04/30/17 09:59 Dose: 1 ea Carvedilol (Coreg) 6.25 mg PO Q12 [facility] Last Admin: 04/30/17 09:40 Dose: 6.25 mg Citalopram Hydrobromide (Celexa) 20 mg PO DAILY [facility] Last Admin: 04/30/17 09:42 Dose: 20 mg Clonidine HCl (Catapres) 0.3 mg PO BID [facility] Last Admin: 04/30/17 09:41 Dose: 0.3 mg Clopidogrel Bisulfate (Plavix) 75 mg PO DAILY [facility] Last Admin: 04/30/17 09:39 Dose: 75 mg Docusate Sodium (Colace) 100 mg PO DAILY [facility] Last Admin: 04/30/17 09:41 Dose: 100 mg Epoetin José Manuel (Procrit) 10,000 unit IV MWF [facility] Last Admin: 04/28/17 16:22 Dose: 10,000 unit Ergocalciferol (Drisdol 50,000 Intl Units Cap) 1 cap PO Q7D [facility] Last Admin: 04/29/17 16:55 Dose: 1 cap Furosemide (Lasix) 80 mg IVP DAILY [facility] Last Admin: 04/29/17 08:37 Dose: 80 mg Guaifenesin/Dextromethorphan (Robitussin Dm) 10 ml PO Q4 PRN PRN Reason: Cough Last Admin: 04/25/17 16:25 Dose: 10 ml Heparin Sodium (Porcine) (Heparin) 5,000 units SC Q12 [facility] PRN Reason: Protocol Last Admin: 04/30/17 09:40 Dose: 5,000 units Hydralazine HCl (Apresoline) 50 mg PO TID [facility] Last Admin: 04/30/17 09:39 Dose: 50 mg Ipratropium [place] (Atrovent) 0.5 mg IH RQ6 PRN PRN Reason: Wheezing Metolazone (Zaroxolyn) 5 mg PO DAILY [facility] Last Admin: 04/30/17 09:39 Dose: 5 mg Nitroglycerin (Nitro-Bid 2% Oint) 1 inch TOP Q6H [facility] Last Admin: 04/30/17 06:08 Dose: 1 inch Pantoprazole Sodium (Protonix Ec Tab) 40 mg PO DAILY [facility] Last Admin: 04/30/17 09:40 Dose: 40 mg Prednisone (Prednisone Tab) 10 mg PO DAILY [facility] Last Admin: 04/30/17 09:40 Dose: 10 mg Fluticasone/Salmeterol (Advair Diskus 500/50) 1 puff IH Q12 [facility] Last Admin: 04/30/17 09:38 Dose: 1 puff Sevelamer Carbonate (Renvela) 1.6 gm PO TIDWM [facility] Last Admin: 04/30/17 09:39 Dose: 1.6 gm Spironolactone (Aldactone) 50 mg PO DAILY [facility] Last Admin: 04/30/17 09:40 Dose: 50 mg Vitamin B Complex/Vit C/Folic Acid (Nephro-Yemi) 1 tab PO DAILY [facility] Last Admin: 04/30/17 09:39 Dose: 1 tab - Labs Labs: 04/28/17 06:10 04/28/17 06:10 APTT 55.3 SECONDS (23.3-32.5) H 04/04/17 04:35 - Constitutional Appears: Non-toxic, No Acute Distress - Head Exam Head Exam: ATRAUMATIC - Eye Exam Eye Exam: Normal appearance - ENT Exam ENT Exam: Mucous Membranes Dry - Neck Exam Neck Exam: Full ROM. absent: Lymphadenopathy, Tenderness - Respiratory Exam Respiratory Exam: NORMAL BREATHING PATTERN. absent: Accessory Muscle Use, Chest Wall Tenderness, Decreased Breath Sounds, Respiratory Distress - Cardiovascular Exam Cardiovascular Exam: absent: +S1, +S2 - GI/Abdominal Exam GI & Abdominal Exam: Soft, Normal Bowel Sounds. absent: Tenderness, Organomegaly - Extremities Exam Extremities Exam: Joint Swelling, Normal Capillary Refill, Pedal Edema. absent : Calf Tenderness, Tenderness Additional comments: (+)2 pitting - Back Exam Back Exam: NORMAL INSPECTION. absent: CVA tenderness (L), CVA tenderness (R) - Neurological Exam Neurological Exam: Alert, Awake, Normal Gait - Skin Skin Exam: Dry, Normal Color, Warm Assessment and Plan - Assessment and Plan (Free Text) Assessment: 67 yr old M admitted for respiratory distress and found to have Acute on Chronic Kidney Injury and CHF exacerbation. Patient has ESRD and needs dialysis 3 times per week. RUE PICC line and right chest PERMCath patent with dressing dry/intact. SW is working on arranging outpatient hemodialysis. Has increased diffuse anasarca of left lower abdominal quadrant, improved with HD. 1. 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 Diffuse Anasarca -stable, persists -likely secondary to CHF and CKD -CT Abd and Pelvis: severe diffuse anasarca, unremarkable appearance of urinary bladder, no focal or diffuse -Urology consult appreciated Dr. Henley: follow recommendations -diuretic management: lasix, Metolazone 5mg PO QD, Aldactone 50 mg PO QD 3. COPD -stable O2 saturation wnl on room air -Likely 2dary to acute CHF Exacerbation vs NSTEMI vs acute on CKD vs multifocal PNA -CXR 04/03/17: multifocal hazy opacities increased bilaterally in lungs compared to prior CXR, left sided pleural effusion, dx includes edema,hemorrhage, multifocal PNA -CT Chest 04/04/17: Large bilateral pleural effusions, compressive atelectasis and upper lobe infiltrates, cardiomegaly, pericardial effusion-correlate for CHF -ID consult appreciated, Dr. Silver: follow recommendations , d/c'd Zosyn (s/p 10 days tx) -Prednisone 10mg PO QD -CXR 04/12/17: Small left pleural effusion and associated atelectasis or infiltrate, subtle infiltrate at the right lung base 4. 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 Systolic CHF with Acute Exacerbation -Echo 04/02/17: LVEF 30-35%, with generalized moderate hypokinesia particularly pronounced in the septum -Cardio consult appreciated Dr. Miles: patient is not a suitable candidate for invasive cardiac workup, recommend continue with Coreg 6.25mg Q12, Heparin 5,000 units SC BID, Lipitor 20 mg PO QD, Plavix 75mg QD -Lasix 80mg IVPB QD -ProBNP: improved to 87,400 (04/05/17) from 167,000 (04/02/17) -Not a good candidate for MAN-i due to impaired renal function -Strict I/Os. Daily weights. 6. NSTEMI -stable -Continue with aspirin 81 mg daily, Plavix 75 mg daily, Coreg 6.25mg PO Q12, Heparin 5,000 units SC BID -Not a good candidate for MAN inhibitor due to impaired renal function -Troponin elevated (serial measurement :0.285, 0.549, 0.384, 0.326) -Cardiology on board, consult appreciated Dr. Miles: f/u recommendations 7. Hx of RUE DVT -RUE DVT detected on 02/04/17 however patient was not a good candidate for buttermaker continuous churn anticoagulation -RUE duplex 04/20/17: No evidence of vein thrombosis of the RUE with normal venous flow -D-dimer also elevated at admission but of undetermined significance -B/L upper extremities US showed partial compression of the right basilic vein, possible due to a chronic thrombus -B/L lower extremities US showed no evidence of DVT -Discontinued Heparin drip ( for therapeutic management of ACS), was stopped because dropped in H/H -continue anticoagulation as above 8. HTN -uncontrolled -likely due to worsening renal function, CHF -Cardio consult appreciated Dr. Miles: continue with Hydralazine, Clonidine , Norvasc -monitor BP 9. DVT Prophylaxis -SCDs -Heparin 5000 units SC BID
[2017-05-01] MEDS: Nitroglycerin 2% 15 INCH/30 GM TUBE TOP SCH ×4 (01:00→19:39)
[2017-05-01] MEDS: Fluticasone-Salmeterol 500-50mcg Diskus IH SCH ×2 (09:42→21:38)
[2017-05-01] MEDS: Bacitracin 500 Units/gm Oint Foilpak UD TOP SCH ×3 (09:42→17:35)
[2017-05-01] MEDS: Sevelamer Carb 0.8 gm/Packet PO SCH ×5 (09:42→19:44)
[2017-05-01] MEDS: Multivitamin Vitamin B Complex (Nephro-Vite) Tab PO SCH (09:44)
[2017-05-01] MEDS: Pantoprazole 40 mg EC Tab PO SCH (09:44)
[2017-05-01] MEDS: metOLazone 5 MG TAB PO SCH (09:45)
--- NOTE | 2017-05-01 10:51 | CP.PCM.PN ---
Subjective - Date & Time of Evaluation Date of Evaluation: 05/01/17 Time of Evaluation: 10:50 - Subjective Subjective: Patient to receive dialysis as scheduled now Patient waiting for placement as outpatient Objective - Vital Signs/Intake and Output Vital Signs (last 24 hours): Temp Pulse Resp BP Pulse Ox 98.1 F 71 20 179/86 H 97 05/01/17 08:49 05/01/17 09:44 05/01/17 08:49 05/01/17 09:44 05/01/17 08:49 - Medications Medications: Current Medications Amlodipine Besylate (Norvasc) 10 mg PO DAILY [facility] Last Admin: 05/01/17 09:44 Dose: 10 mg Aspirin (Aspirin Chewable) 81 mg PO DAILY [facility] Last Admin: 05/01/17 09:45 Dose: 81 mg Atorvastatin Calcium (Lipitor) 20 mg PO HS [facility] Last Admin: 04/30/17 21:08 Dose: 20 mg Bacitracin (Bacitracin) 1 ea TOP TID [facility] Last Admin: 05/01/17 09:42 Dose: 1 ea Carvedilol (Coreg) 6.25 mg PO Q12 [facility] Last Admin: 05/01/17 09:43 Dose: 6.25 mg Citalopram Hydrobromide (Celexa) 20 mg PO DAILY [facility] Last Admin: 05/01/17 09:45 Dose: 20 mg Clonidine HCl (Catapres) 0.3 mg PO BID [facility] Last Admin: 05/01/17 09:43 Dose: 0.3 mg Clopidogrel Bisulfate (Plavix) 75 mg PO DAILY [facility] Last Admin: 05/01/17 09:44 Dose: 75 mg Docusate Sodium (Colace) 100 mg PO DAILY [facility] Last Admin: 05/01/17 09:43 Dose: 100 mg Epoetin José Manuel (Procrit) 10,000 unit IV MWF [facility] Last Admin: 04/28/17 16:22 Dose: 10,000 unit Ergocalciferol (Drisdol 50,000 Intl Units Cap) 1 cap PO Q7D [facility] Last Admin: 04/29/17 16:55 Dose: 1 cap Furosemide (Lasix) 80 mg IVP DAILY [facility] Last Admin: 04/30/17 10:56 Dose: 80 mg Guaifenesin/Dextromethorphan (Robitussin Dm) 10 ml PO Q4 PRN PRN Reason: Cough Last Admin: 04/25/17 16:25 Dose: 10 ml Heparin Sodium (Porcine) (Heparin) 5,000 units SC Q12 [facility] PRN Reason: Protocol Last Admin: 05/01/17 09:45 Dose: 5,000 units Hydralazine HCl (Apresoline) 50 mg PO TID [facility] Last Admin: 05/01/17 09:43 Dose: 50 mg Ipratropium [place] (Atrovent) 0.5 mg IH RQ6 PRN PRN Reason: Wheezing Metolazone (Zaroxolyn) 5 mg PO DAILY [facility] Last Admin: 05/01/17 09:45 Dose: 5 mg Nitroglycerin (Nitro-Bid 2% Oint) 1 inch TOP Q6H [facility] Last Admin: 05/01/17 07:15 Dose: 1 inch Pantoprazole Sodium (Protonix Ec Tab) 40 mg PO DAILY [facility] Last Admin: 05/01/17 09:44 Dose: 40 mg Prednisone (Prednisone Tab) 10 mg PO DAILY [facility] Last Admin: 05/01/17 09:43 Dose: 10 mg Fluticasone/Salmeterol (Advair Diskus 500/50) 1 puff IH Q12 [facility] Last Admin: 05/01/17 09:42 Dose: 1 puff Sevelamer Carbonate (Renvela) 1.6 gm PO TIDWM [facility] Last Admin: 05/01/17 09:42 Dose: 1.6 gm Spironolactone (Aldactone) 50 mg PO DAILY [facility] Last Admin: 05/01/17 09:44 Dose: 50 mg Vitamin B Complex/Vit C/Folic Acid (Nephro-Yemi) 1 tab PO DAILY [facility] Last Admin: 05/01/17 09:44 Dose: 1 tab - Labs Labs: 04/28/17 06:10 04/28/17 06:10 APTT 55.3 SECONDS (23.3-32.5) H 04/04/17 04:35 Assessment and Plan (1) Acute on chronic renal failure Status: Acute (2) Acute systolic congestive heart failure Status: Acute
--- NOTE | 2017-05-01 12:04 | CP.PCM.PN ---
Subjective - Date & Time of Evaluation Date of Evaluation: 05/01/17 Time of Evaluation: 09:10 - Subjective Subjective: Patient seen and examined at bedside, notes swelling of bilateral lower extremities and abdomen persists. Reports continued minimal urine output. Denies SOB, chest pain or dizziness. Patient is aware he is to have hemodialysis today. Objective - Vital Signs/Intake and Output Vital Signs (last 24 hours): Temp Pulse Resp BP Pulse Ox 98.1 F 86 20 142/77 97 05/01/17 09:00 05/01/17 11:57 05/01/17 08:49 05/01/17 11:58 05/01/17 09:00 - Medications Medications: Current Medications Amlodipine Besylate (Norvasc) 10 mg PO DAILY [facility] Last Admin: 05/01/17 09:44 Dose: 10 mg Aspirin (Aspirin Chewable) 81 mg PO DAILY [facility] Last Admin: 05/01/17 09:45 Dose: 81 mg Atorvastatin Calcium (Lipitor) 20 mg PO HS [facility] Last Admin: 04/30/17 21:08 Dose: 20 mg Bacitracin (Bacitracin) 1 ea TOP TID [facility] Last Admin: 05/01/17 11:59 Dose: 1 ea Carvedilol (Coreg) 6.25 mg PO Q12 [facility] Last Admin: 05/01/17 09:43 Dose: 6.25 mg Citalopram Hydrobromide (Celexa) 20 mg PO DAILY [facility] Last Admin: 05/01/17 09:45 Dose: 20 mg Clonidine HCl (Catapres) 0.3 mg PO BID [facility] Last Admin: 05/01/17 09:43 Dose: 0.3 mg Clopidogrel Bisulfate (Plavix) 75 mg PO DAILY [facility] Last Admin: 05/01/17 09:44 Dose: 75 mg Docusate Sodium (Colace) 100 mg PO DAILY [facility] Last Admin: 05/01/17 09:43 Dose: 100 mg Epoetin José Manuel (Procrit) 10,000 unit IV MWF [facility] Last Admin: 04/28/17 16:22 Dose: 10,000 unit Ergocalciferol (Drisdol 50,000 Intl Units Cap) 1 cap PO Q7D [facility] Last Admin: 04/29/17 16:55 Dose: 1 cap Furosemide (Lasix) 80 mg IVP DAILY [facility] Last Admin: 05/01/17 11:58 Dose: Not Given Guaifenesin/Dextromethorphan (Robitussin Dm) 10 ml PO Q4 PRN PRN Reason: Cough Last Admin: 04/25/17 16:25 Dose: 10 ml Heparin Sodium (Porcine) (Heparin) 5,000 units SC Q12 [facility] PRN Reason: Protocol Last Admin: 05/01/17 09:45 Dose: 5,000 units Hydralazine HCl (Apresoline) 50 mg PO TID [facility] Last Admin: 05/01/17 09:43 Dose: 50 mg Ipratropium [place] (Atrovent) 0.5 mg IH RQ6 PRN PRN Reason: Wheezing Metolazone (Zaroxolyn) 5 mg PO DAILY [facility] Last Admin: 05/01/17 09:45 Dose: 5 mg Nitroglycerin (Nitro-Bid 2% Oint) 1 inch TOP Q6H [facility] Last Admin: 05/01/17 07:15 Dose: 1 inch Pantoprazole Sodium (Protonix Ec Tab) 40 mg PO DAILY [facility] Last Admin: 05/01/17 09:44 Dose: 40 mg Prednisone (Prednisone Tab) 10 mg PO DAILY [facility] Last Admin: 05/01/17 09:43 Dose: 10 mg Fluticasone/Salmeterol (Advair Diskus 500/50) 1 puff IH Q12 [facility] Last Admin: 05/01/17 09:42 Dose: 1 puff Sevelamer Carbonate (Renvela) 1.6 gm PO TIDWM [facility] Last Admin: 05/01/17 11:59 Dose: 1.6 gm Spironolactone (Aldactone) 50 mg PO DAILY [facility] Last Admin: 05/01/17 09:44 Dose: 50 mg Vitamin B Complex/Vit C/Folic Acid (Nephro-Yemi) 1 tab PO DAILY [facility] Last Admin: 05/01/17 09:44 Dose: 1 tab - Labs Labs: 04/28/17 06:10 04/28/17 06:10 APTT 55.3 SECONDS (23.3-32.5) H 04/04/17 04:35 - Constitutional Appears: Non-toxic, No Acute Distress - Head Exam Head Exam: ATRAUMATIC, NORMOCEPHALIC - Eye Exam Eye Exam: EOMI, PERRL - ENT Exam ENT Exam: Mucous Membranes Moist - Neck Exam Neck Exam: Full ROM. absent: Lymphadenopathy - Respiratory Exam Respiratory Exam: Clear to Ausculation Bilateral, NORMAL BREATHING PATTERN - Cardiovascular Exam Cardiovascular Exam: REGULAR RHYTHM, +S1, +S2 - GI/Abdominal Exam GI & Abdominal Exam: Soft (obese), Normal Bowel Sounds. absent: Tenderness Additional comments: left abdominal anasarca persist - Extremities Exam Extremities Exam: Full ROM, Pedal Edema (pitting + 3 up to knees bilaterally with stasis dermatitis) Additional comments: right upper extremity PICC line in place, dressing clean/dry/intact; right chest PERMcath in place dressing dry/intact - Back Exam Back Exam: absent: CVA tenderness (L), CVA tenderness (R) - Neurological Exam Neurological Exam: Alert, Awake, CN II-XII Intact, Normal Gait - Psychiatric Exam Psychiatric exam: Normal Affect, Normal Mood - Skin Skin Exam: Dry, Intact, Warm Assessment and Plan - Assessment and Plan (Free Text) Assessment: 67 yr old M admitted for respiratory distress and found to have Acute on Chronic Kidney Injury and CHF exacerbation. Patient has ESRD and needs dialysis 3 times per week. RUE PICC line and right chest PERMCath patent with dressing dry/intact. SW is working on arranging outpatient hemodialysis. Diffuse anasarca of left lower abdominal quadrant, persists, pt has hemodialysis scheduled for today. 1. 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 Diffuse Anasarca -stable, persists -likely secondary to CHF and CKD -CT Abd and Pelvis: severe diffuse anasarca, unremarkable appearance of urinary bladder, no focal or diffuse -Urology consult appreciated Dr. Henley: follow recommendations -diuretic management: lasix, Metolazone 5mg PO QD, Aldactone 50 mg PO QD 3. COPD -stable O2 saturation wnl on room air -Likely 2dary to acute CHF Exacerbation vs NSTEMI vs acute on CKD vs multifocal PNA -CXR 04/03/17: multifocal hazy opacities increased bilaterally in lungs compared to prior CXR, left sided pleural effusion, dx includes edema,hemorrhage, multifocal PNA -CT Chest 04/04/17: Large bilateral pleural effusions, compressive atelectasis and upper lobe infiltrates, cardiomegaly, pericardial effusion-correlate for CHF -ID consult appreciated, Dr. Silver: follow recommendations , d/c'd Zosyn (s/p 10 days tx) -Prednisone 10mg PO QD -CXR 04/12/17: Small left pleural effusion and associated atelectasis or infiltrate, subtle infiltrate at the right lung base 4. 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 Systolic CHF with Acute Exacerbation -Echo 04/02/17: LVEF 30-35%, with generalized moderate hypokinesia particularly pronounced in the septum -Cardio consult appreciated Dr. Miles: patient is not a suitable candidate for invasive cardiac workup, recommend continue with Coreg 6.25mg Q12, Heparin 5,000 units SC BID, Lipitor 20 mg PO QD, Plavix 75mg QD -Lasix 80mg IVPB QD -ProBNP: improved to 87,400 (04/05/17) from 167,000 (04/02/17) -Not a good candidate for MAN-i due to impaired renal function -Strict I/Os. Daily weights. 6. NSTEMI -stable -Continue with aspirin 81 mg daily, Plavix 75 mg daily, Coreg 6.25mg PO Q12, Heparin 5,000 units SC BID -Not a good candidate for MAN inhibitor due to impaired renal function -Troponin elevated (serial measurement :0.285, 0.549, 0.384, 0.326) -Cardiology on board, consult appreciated Dr. Miles: f/u recommendations 7. Hx of RUE DVT -RUE DVT detected on 02/04/17 however patient was not a good candidate for jail anticoagulation -RUE duplex 04/20/17: No evidence of vein thrombosis of the RUE with normal venous flow -D-dimer also elevated at admission but of undetermined significance -B/L upper extremities US showed partial compression of the right basilic vein, possible due to a chronic thrombus -B/L lower extremities US showed no evidence of DVT -Discontinued Heparin drip ( for therapeutic management of ACS), was stopped because dropped in H/H -continue anticoagulation as above 8. HTN -uncontrolled -likely due to worsening renal function, CHF -Cardio consult appreciated Dr. Miles: continue with Hydralazine, Clonidine , Norvasc -monitor BP 9. DVT Prophylaxis -SCDs -Heparin 5000 units SC BID
[2017-05-01] MEDS: EPOETIN ALFA 10,000 UNIT/ML ML IV SCH (15:51)
[2017-05-02] MEDS: Nitroglycerin 2% 15 INCH/30 GM TUBE TOP SCH ×4 (01:09→18:41)
[2017-05-02 07:28] LABS: HEMOGLOBIN 9.3 g/dL (12.0-18.0); MEAN CELL VOLUME 92.8 fl (80.0-94.0); MEAN CORPUSCULAR HEMOGLOBIN 31.3 pg (27.0-31.0); MEAN CORPUSCULAR HGB CONC 33.7 g/dL (33.0-37.0); RBC 2.97 Mil/uL (4.40-5.90); RED CELL DISTRIBUTION WIDTH 22.5 % (11.5-14.5)
[2017-05-02 07:36] LABS: CALCIUM 7.2 mg/dL (8.4-10.2)
--- NOTE | 2017-05-02 08:47 | CP.PCM.PN ---
Subjective - Date & Time of Evaluation Date of Evaluation: 05/02/17 Time of Evaluation: 07:50 - Subjective Subjective: Patient seen and examined at bedside. Reports some SOB this AM, also notes mild periorbital edema. Had some discomfort from dressing over right chest PERMcath, nurse will change dressing this AM. Denies chest pain, weakness or dizziness. Tolerated hemodialysis well yesterday. Patient is aware he has hemodialysis scheduled for tomorrow and that he needs hemodialysis 3 times a week. Objective - Vital Signs/Intake and Output Vital Signs (last 24 hours): Temp Pulse Resp BP Pulse Ox 98.5 F 80 20 178/88 H 94 L 05/02/17 08:21 05/02/17 08:21 05/02/17 08:21 05/02/17 08:21 05/02/17 08:21 - Medications Medications: Current Medications Amlodipine Besylate (Norvasc) 10 mg PO DAILY [facility] Last Admin: 05/01/17 09:44 Dose: 10 mg Aspirin (Aspirin Chewable) 81 mg PO DAILY [facility] Last Admin: 05/01/17 09:45 Dose: 81 mg Atorvastatin Calcium (Lipitor) 20 mg PO HS [facility] Last Admin: 05/01/17 21:40 Dose: 20 mg Bacitracin (Bacitracin) 1 ea TOP TID [facility] Last Admin: 05/01/17 17:35 Dose: 1 ea Carvedilol (Coreg) 6.25 mg PO Q12 [facility] Last Admin: 05/01/17 21:39 Dose: 6.25 mg Citalopram Hydrobromide (Celexa) 20 mg PO DAILY [facility] Last Admin: 05/01/17 09:45 Dose: 20 mg Clonidine HCl (Catapres) 0.3 mg PO BID [facility] Last Admin: 05/01/17 17:37 Dose: Not Given Clopidogrel Bisulfate (Plavix) 75 mg PO DAILY [facility] Last Admin: 05/01/17 09:44 Dose: 75 mg Docusate Sodium (Colace) 100 mg PO DAILY [facility] Last Admin: 05/01/17 09:43 Dose: 100 mg Epoetin José Manuel (Procrit) 10,000 unit IV MWF [facility] Last Admin: 05/01/17 15:51 Dose: 10,000 unit Ergocalciferol (Drisdol 50,000 Intl Units Cap) 1 cap PO Q7D [facility] Last Admin: 04/29/17 16:55 Dose: 1 cap Furosemide (Lasix) 80 mg IVP DAILY [facility] Last Admin: 05/01/17 11:58 Dose: Not Given Guaifenesin/Dextromethorphan (Robitussin Dm) 10 ml PO Q4 PRN PRN Reason: Cough Last Admin: 04/25/17 16:25 Dose: 10 ml Heparin Sodium (Porcine) (Heparin) 5,000 units SC Q12 [facility] PRN Reason: Protocol Last Admin: 05/01/17 21:40 Dose: 5,000 units Hydralazine HCl (Apresoline) 50 mg PO TID [facility] Last Admin: 05/01/17 17:36 Dose: Not Given Ipratropium [place] (Atrovent) 0.5 mg IH RQ6 PRN PRN Reason: Wheezing Metolazone (Zaroxolyn) 5 mg PO DAILY [facility] Last Admin: 05/01/17 09:45 Dose: 5 mg Nitroglycerin (Nitro-Bid 2% Oint) 1 inch TOP Q6H [facility] Last Admin: 05/02/17 06:37 Dose: 1 inch Pantoprazole Sodium (Protonix Ec Tab) 40 mg PO DAILY [facility] Last Admin: 05/01/17 09:44 Dose: 40 mg Prednisone (Prednisone Tab) 10 mg PO DAILY [facility] Last Admin: 05/01/17 09:43 Dose: 10 mg Fluticasone/Salmeterol (Advair Diskus 500/50) 1 puff IH Q12 [facility] Last Admin: 05/01/17 21:38 Dose: 1 puff Sevelamer Carbonate (Renvela) 1.6 gm PO TIDWM [facility] Last Admin: 05/01/17 19:44 Dose: 1.6 gm Spironolactone (Aldactone) 50 mg PO DAILY [facility] Last Admin: 05/01/17 09:44 Dose: 50 mg Vitamin B Complex/Vit C/Folic Acid (Nephro-Yemi) 1 tab PO DAILY [facility] Last Admin: 05/01/17 09:44 Dose: 1 tab - Labs Labs: 05/02/17 06:05 05/02/17 06:05 APTT 55.3 SECONDS (23.3-32.5) H 04/04/17 04:35 - Constitutional Appears: Non-toxic, No Acute Distress - Head Exam Head Exam: ATRAUMATIC, NORMOCEPHALIC - Eye Exam Eye Exam: EOMI, Periorbital swelling (mild), PERRL - ENT Exam ENT Exam: Mucous Membranes Moist - Neck Exam Neck Exam: Full ROM. absent: Lymphadenopathy - Respiratory Exam Respiratory Exam: Clear to Ausculation Bilateral Additional comments: mild SOB noted - Cardiovascular Exam Cardiovascular Exam: REGULAR RHYTHM, +S1, +S2 - GI/Abdominal Exam GI & Abdominal Exam: Soft. absent: Distended, Tenderness - Extremities Exam Extremities Exam: Full ROM, Pedal Edema (pitting +3 up to knees, stasis dermatitis bilaterally) - Back Exam Back Exam: absent: CVA tenderness (L), CVA tenderness (R) - Neurological Exam Neurological Exam: Alert, Awake, CN II-XII Intact, Normal Gait - Psychiatric Exam Psychiatric exam: Normal Affect, Normal Mood - Skin Skin Exam: Dry, Intact, Warm Assessment and Plan - Assessment and Plan (Free Text) Assessment: 67 yr old M admitted for respiratory distress and found to have Acute on Chronic Kidney Injury and CHF exacerbation. Patient has ESRD and needs dialysis 3 times per week. RUE PICC line and right chest PERMCath patent with dressing dry/intact. SW is working on arranging outpatient hemodialysis. Diffuse anasarca of left lower abdominal quadrant, persists, pt tolerated hemodialysis yesterday and is scheduled for your next session tomorrow. 1. 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 Diffuse Anasarca -stable, persists -likely secondary to CHF and CKD -CT Abd and Pelvis: severe diffuse anasarca, unremarkable appearance of urinary bladder, no focal or diffuse -Urology consult appreciated Dr. Henley: follow recommendations -diuretic management: lasix, Metolazone 5mg PO QD, Aldactone 50 mg PO QD 3. COPD -stable O2 saturation wnl on room air -Likely 2dary to acute CHF Exacerbation vs NSTEMI vs acute on CKD vs multifocal PNA -CXR 04/03/17: multifocal hazy opacities increased bilaterally in lungs compared to prior CXR, left sided pleural effusion, dx includes edema,hemorrhage, multifocal PNA -CT Chest 04/04/17: Large bilateral pleural effusions, compressive atelectasis and upper lobe infiltrates, cardiomegaly, pericardial effusion-correlate for CHF -ID consult appreciated, Dr. Silver: follow recommendations , d/c'd Zosyn (s/p 10 days tx) -Prednisone 10mg PO QD -CXR 04/12/17: Small left pleural effusion and associated atelectasis or infiltrate, subtle infiltrate at the right lung base 4. 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 Systolic CHF with Acute Exacerbation -Echo 04/02/17: LVEF 30-35%, with generalized moderate hypokinesia particularly pronounced in the septum -Cardio consult appreciated Dr. Miles: patient is not a suitable candidate for invasive cardiac workup, recommend continue with Coreg 6.25mg Q12, Heparin 5,000 units SC BID, Lipitor 20 mg PO QD, Plavix 75mg QD -Lasix 80mg IVPB QD -ProBNP: improved to 87,400 (04/05/17) from 167,000 (04/02/17) -Not a good candidate for MAN-i due to impaired renal function -Strict I/Os. Daily weights. 6. NSTEMI -stable -Continue with aspirin 81 mg daily, Plavix 75 mg daily, Coreg 6.25mg PO Q12, Heparin 5,000 units SC BID -Not a good candidate for MAN inhibitor due to impaired renal function -Troponin elevated (serial measurement :0.285, 0.549, 0.384, 0.326) -Cardiology on board, consult appreciated Dr. Miles: f/u recommendations 7. Hx of RUE DVT -RUE DVT detected on 02/04/17 however patient was not a good candidate for longitudinal float operator anticoagulation -RUE duplex 04/20/17: No evidence of vein thrombosis of the RUE with normal venous flow -D-dimer also elevated at admission but of undetermined significance -B/L upper extremities US showed partial compression of the right basilic vein, possible due to a chronic thrombus -B/L lower extremities US showed no evidence of DVT -Discontinued Heparin drip ( for therapeutic management of ACS), was stopped because dropped in H/H -continue anticoagulation as above 8. HTN -uncontrolled -likely due to worsening renal function, CHF -Cardio consult appreciated Dr. Miles: continue with Hydralazine, Clonidine , Norvasc -monitor BP 9. DVT Prophylaxis -SCDs -Heparin 5000 units SC BID
[2017-05-02] MEDS: Fluticasone-Salmeterol 500-50mcg Diskus IH SCH ×2 (08:55→21:24)
[2017-05-02] MEDS: Multivitamin Vitamin B Complex (Nephro-Vite) Tab PO SCH (08:56)
[2017-05-02] MEDS: Pantoprazole 40 mg EC Tab PO SCH (08:56)
[2017-05-02] MEDS: metOLazone 5 MG TAB PO SCH (08:57)
[2017-05-02] MEDS: Sevelamer Carb 0.8 gm/Packet PO SCH ×3 (08:57→16:49)
[2017-05-02] MEDS: Bacitracin 500 Units/gm Oint Foilpak UD TOP SCH ×3 (09:09→16:47)
[2017-05-03] MEDS: Nitroglycerin 2% 15 INCH/30 GM TUBE TOP SCH ×4 (01:00→19:22)
--- NOTE | 2017-05-03 08:12 | CP.PCM.PN ---
Subjective - Date & Time of Evaluation Date of Evaluation: 05/03/17 Time of Evaluation: 07:50 - Subjective Subjective: Patient seen and examined at bedside, no acute events overnight. Patient denies weakness, SOB, chest pain or dizziness, is aware he is scheduled for hemodialysis today. Note improvement in bilateral lower extremity swelling. Objective - Vital Signs/Intake and Output Vital Signs (last 24 hours): Temp Pulse Resp BP Pulse Ox 97.7 F 74 19 154/73 H 94 L 05/03/17 00:49 05/03/17 00:49 05/03/17 00:49 05/03/17 00:49 05/03/17 00:49 - Medications Medications: Current Medications Amlodipine Besylate (Norvasc) 10 mg PO DAILY [facility] Last Admin: 05/02/17 08:59 Dose: 10 mg Aspirin (Aspirin Chewable) 81 mg PO DAILY [facility] Last Admin: 05/02/17 08:56 Dose: 81 mg Atorvastatin Calcium (Lipitor) 20 mg PO HS [facility] Last Admin: 05/02/17 21:25 Dose: 20 mg Bacitracin (Bacitracin) 1 ea TOP TID [facility] Last Admin: 05/02/17 16:47 Dose: 1 ea Carvedilol (Coreg) 6.25 mg PO Q12 [facility] Last Admin: 05/02/17 21:24 Dose: 6.25 mg Citalopram Hydrobromide (Celexa) 20 mg PO DAILY [facility] Last Admin: 05/02/17 08:56 Dose: 20 mg Clonidine HCl (Catapres) 0.3 mg PO BID [facility] Last Admin: 05/02/17 16:47 Dose: 0.3 mg Clopidogrel Bisulfate (Plavix) 75 mg PO DAILY [facility] Last Admin: 05/02/17 08:56 Dose: 75 mg Docusate Sodium (Colace) 100 mg PO DAILY [facility] Last Admin: 05/02/17 08:57 Dose: 100 mg Epoetin José Manuel (Procrit) 10,000 unit IV MWF [facility] Last Admin: 05/01/17 15:51 Dose: 10,000 unit Ergocalciferol (Drisdol 50,000 Intl Units Cap) 1 cap PO Q7D [facility] Last Admin: 04/29/17 16:55 Dose: 1 cap Furosemide (Lasix) 80 mg IVP DAILY [facility] Last Admin: 05/02/17 10:55 Dose: 80 mg Guaifenesin/Dextromethorphan (Robitussin Dm) 10 ml PO Q4 PRN PRN Reason: Cough Last Admin: 04/25/17 16:25 Dose: 10 ml Heparin Sodium (Porcine) (Heparin) 5,000 units SC Q12 [facility] PRN Reason: Protocol Last Admin: 05/02/17 21:25 Dose: 5,000 units Hydralazine HCl (Apresoline) 50 mg PO TID [facility] Last Admin: 05/02/17 16:46 Dose: 50 mg Ipratropium [place] (Atrovent) 0.5 mg IH RQ6 PRN PRN Reason: Wheezing Metolazone (Zaroxolyn) 5 mg PO DAILY [facility] Last Admin: 05/02/17 08:57 Dose: 5 mg Nitroglycerin (Nitro-Bid 2% Oint) 1 inch TOP Q6H [facility] Last Admin: 05/03/17 06:43 Dose: 1 inch Pantoprazole Sodium (Protonix Ec Tab) 40 mg PO DAILY [facility] Last Admin: 05/02/17 08:56 Dose: 40 mg Prednisone (Prednisone Tab) 10 mg PO DAILY [facility] Last Admin: 05/02/17 08:55 Dose: 10 mg Fluticasone/Salmeterol (Advair Diskus 500/50) 1 puff IH Q12 [facility] Last Admin: 05/02/17 21:24 Dose: 1 puff Sevelamer Carbonate (Renvela) 1.6 gm PO TIDWM [facility] Last Admin: 05/02/17 16:49 Dose: 1.6 gm Spironolactone (Aldactone) 50 mg PO DAILY [facility] Last Admin: 05/02/17 08:58 Dose: 50 mg Vitamin B Complex/Vit C/Folic Acid (Nephro-Yemi) 1 tab PO DAILY [facility] Last Admin: 05/02/17 08:56 Dose: 1 tab - Labs Labs: 05/02/17 06:05 05/02/17 06:05 APTT 55.3 SECONDS (23.3-32.5) H 04/04/17 04:35 - Constitutional Appears: Well, No Acute Distress - Head Exam Head Exam: ATRAUMATIC, NORMOCEPHALIC - Eye Exam Eye Exam: EOMI, PERRL - ENT Exam ENT Exam: Mucous Membranes Moist - Neck Exam Neck Exam: Full ROM - Respiratory Exam Respiratory Exam: Clear to Ausculation Bilateral, NORMAL BREATHING PATTERN - Cardiovascular Exam Cardiovascular Exam: REGULAR RHYTHM, +S1, +S2 - GI/Abdominal Exam GI & Abdominal Exam: Soft (obese). absent: Distended, Tenderness - Extremities Exam Extremities Exam: Full ROM, Pedal Edema (+2 up to knees with stasis dermatitis) Additional comments: right upper extremity PICC line patent/dressing clean and dry; right chest PERMCath dressing clean/dry/intact - Back Exam Back Exam: absent: CVA tenderness (L), CVA tenderness (R) - Neurological Exam Neurological Exam: Alert, Awake, CN II-XII Intact - Psychiatric Exam Psychiatric exam: Normal Affect, Normal Mood - Skin Skin Exam: Dry, Intact, Warm Assessment and Plan - Assessment and Plan (Free Text) Assessment: 67 yr old M admitted for respiratory distress and found to have Acute on Chronic Kidney Injury and CHF exacerbation. Patient has ESRD and needs dialysis 3 times per week. RUE PICC line and right chest PERMCath patent with dressing dry/intact. SW is working on arranging outpatient hemodialysis. Diffuse anasarca of left lower abdominal quadrant has improved. Patient has hemodialysis scheduled for today. 1. 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 Diffuse Anasarca -stable, persists -likely secondary to CHF and CKD -CT Abd and Pelvis: severe diffuse anasarca, unremarkable appearance of urinary bladder, no focal or diffuse -Urology consult appreciated Dr. Henley: follow recommendations -diuretic management: Torsemide, Metolazone 5mg PO QD, Aldactone 50 mg PO QD 3. COPD -stable O2 saturation wnl on room air -Likely 2dary to acute CHF Exacerbation vs NSTEMI vs acute on CKD vs multifocal PNA -CXR 04/03/17: multifocal hazy opacities increased bilaterally in lungs compared to prior CXR, left sided pleural effusion, dx includes edema,hemorrhage, multifocal PNA -CT Chest 04/04/17: Large bilateral pleural effusions, compressive atelectasis and upper lobe infiltrates, cardiomegaly, pericardial effusion-correlate for CHF -ID consult appreciated, Dr. Silver: follow recommendations , d/c'd Zosyn (s/p 10 days tx) -Prednisone 10mg PO QD -CXR 04/12/17: Small left pleural effusion and associated atelectasis or infiltrate, subtle infiltrate at the right lung base 4. 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 Systolic CHF with Acute Exacerbation -Echo 04/02/17: LVEF 30-35%, with generalized moderate hypokinesia particularly pronounced in the septum -Cardio consult appreciated Dr. Miles: patient is not a suitable candidate for invasive cardiac workup, recommend continue with Coreg 6.25mg Q12, Heparin 5,000 units SC BID, Lipitor 20 mg PO QD, Plavix 75mg QD -start Torsemide 100mg PO daily, discontinue Lasix 80mg IVPB QD -ProBNP: improved to 87,400 (04/05/17) from 167,000 (04/02/17) -Not a good candidate for MAN-i due to impaired renal function -Strict I/Os. Daily weights. 6. NSTEMI -stable -Continue with aspirin 81 mg daily, Plavix 75 mg daily, Coreg 6.25mg PO Q12, Heparin 5,000 units SC BID -Not a good candidate for MAN inhibitor due to impaired renal function -Troponin elevated (serial measurement :0.285, 0.549, 0.384, 0.326) -Cardiology on board, consult appreciated Dr. Miles: f/u recommendations 7. Hx of RUE DVT -RUE DVT detected on 02/04/17 however patient was not a good candidate for skilled nursing anticoagulation -RUE duplex 04/20/17: No evidence of vein thrombosis of the RUE with normal venous flow -D-dimer also elevated at admission but of undetermined significance -B/L upper extremities US showed partial compression of the right basilic vein, possible due to a chronic thrombus -B/L lower extremities US showed no evidence of DVT -Discontinued Heparin drip ( for therapeutic management of ACS), was stopped because dropped in H/H -continue anticoagulation as above 8. HTN -uncontrolled -likely due to worsening renal function, CHF -Cardio consult appreciated Dr. Miles: continue with Hydralazine, Clonidine , Norvasc -monitor BP 9. DVT/GI Prophylaxis -SCDs -Heparin 5000 units SC BID -Pantoprazole 40mg PO QD
[2017-05-03] MEDS: Sevelamer Carb 0.8 gm/Packet PO SCH ×3 (08:49→16:34)
[2017-05-03] MEDS: Fluticasone-Salmeterol 500-50mcg Diskus IH SCH ×2 (08:49→21:01)
[2017-05-03] MEDS: Pantoprazole 40 mg EC Tab PO SCH (08:50)
[2017-05-03] MEDS: Bacitracin 500 Units/gm Oint Foilpak UD TOP SCH ×3 (08:51→16:34)
[2017-05-03] MEDS: metOLazone 5 MG TAB PO SCH (08:51)
[2017-05-03] MEDS: Multivitamin Vitamin B Complex (Nephro-Vite) Tab PO SCH (08:52)
[2017-05-03] MEDS: EPOETIN ALFA 10,000 UNIT/ML ML IV SCH (13:46)
[2017-05-04] MEDS: Nitroglycerin 2% 15 INCH/30 GM TUBE TOP SCH ×4 (01:30→19:14)
[2017-05-04] MEDS: metOLazone 5 MG TAB PO SCH (08:21)
[2017-05-04] MEDS: Sevelamer Carb 0.8 gm/Packet PO SCH ×3 (08:21→16:07)
[2017-05-04] MEDS: Fluticasone-Salmeterol 500-50mcg Diskus IH SCH ×2 (08:21→21:06)
[2017-05-04] MEDS: Bacitracin 500 Units/gm Oint Foilpak UD TOP SCH ×3 (08:22→16:07)
[2017-05-04] MEDS: Pantoprazole 40 mg EC Tab PO SCH (08:22)
[2017-05-04] MEDS: Multivitamin Vitamin B Complex (Nephro-Vite) Tab PO SCH (08:22)
--- NOTE | 2017-05-04 09:08 | CP.PCM.PN ---
Subjective - Date & Time of Evaluation Date of Evaluation: 05/04/17 Time of Evaluation: 09:00 - Subjective Subjective: Patient seen and examined at bedside, no acute events overnight. Patient received HD yesterday with no complications. Patient currently denies weakness, SOB, chest pain, abdominal pain, nausea/vomiting or dizziness. Patient tolerating PO diet. Note improvement in bilateral lower extremity swelling. Objective - Vital Signs/Intake and Output Vital Signs (last 24 hours): Temp Pulse Resp BP Pulse Ox 97.9 F 66 20 108/73 98 05/04/17 07:42 05/04/17 08:22 05/04/17 07:42 05/04/17 07:42 05/04/17 07:42 - Medications Medications: Current Medications Amlodipine Besylate (Norvasc) 10 mg PO DAILY [facility] Last Admin: 05/04/17 08:23 Dose: 10 mg Aspirin (Aspirin Chewable) 81 mg PO DAILY [facility] Last Admin: 05/04/17 08:22 Dose: 81 mg Atorvastatin Calcium (Lipitor) 20 mg PO HS [facility] Last Admin: 05/03/17 21:02 Dose: 20 mg Bacitracin (Bacitracin) 1 ea TOP TID [facility] Last Admin: 05/04/17 08:22 Dose: 1 ea Carvedilol (Coreg) 6.25 mg PO Q12 [facility] Last Admin: 05/04/17 08:22 Dose: 6.25 mg Citalopram Hydrobromide (Celexa) 20 mg PO DAILY [facility] Last Admin: 05/04/17 08:22 Dose: 20 mg Clonidine HCl (Catapres) 0.3 mg PO BID [facility] Last Admin: 05/04/17 08:23 Dose: 0.3 mg Clopidogrel Bisulfate (Plavix) 75 mg PO DAILY [facility] Last Admin: 05/04/17 08:22 Dose: 75 mg Docusate Sodium (Colace) 100 mg PO DAILY [facility] Last Admin: 05/04/17 08:23 Dose: Not Given Epoetin José Manuel (Procrit) 10,000 unit IV MWF [facility] Last Admin: 05/03/17 13:46 Dose: 10,000 unit Ergocalciferol (Drisdol 50,000 Intl Units Cap) 1 cap PO Q7D [facility] Last Admin: 04/29/17 16:55 Dose: 1 cap Guaifenesin/Dextromethorphan (Robitussin Dm) 10 ml PO Q4 PRN PRN Reason: Cough Last Admin: 04/25/17 16:25 Dose: 10 ml Heparin Sodium (Porcine) (Heparin) 5,000 units SC Q12 [facility] PRN Reason: Protocol Last Admin: 05/04/17 08:21 Dose: 5,000 units Hydralazine HCl (Apresoline) 50 mg PO TID [facility] Last Admin: 05/04/17 08:21 Dose: 50 mg Ipratropium [place] (Atrovent) 0.5 mg IH RQ6 PRN PRN Reason: Wheezing Metolazone (Zaroxolyn) 5 mg PO DAILY [facility] Last Admin: 05/04/17 08:21 Dose: 5 mg Nitroglycerin (Nitro-Bid 2% Oint) 1 inch TOP Q6H [facility] Last Admin: 05/04/17 07:01 Dose: 1 inch Pantoprazole Sodium (Protonix Ec Tab) 40 mg PO DAILY [facility] Last Admin: 05/04/17 08:22 Dose: 40 mg Prednisone (Prednisone Tab) 10 mg PO DAILY [facility] Last Admin: 05/04/17 08:23 Dose: 10 mg Fluticasone/Salmeterol (Advair Diskus 500/50) 1 puff IH Q12 [facility] Last Admin: 05/04/17 08:21 Dose: 1 puff Sevelamer Carbonate (Renvela) 1.6 gm PO TIDWM [facility] Last Admin: 05/04/17 08:21 Dose: 1.6 gm Spironolactone (Aldactone) 50 mg PO DAILY [facility] Last Admin: 05/04/17 08:22 Dose: 50 mg Torsemide (Demadex) 100 mg PO DAILY [facility] Last Admin: 05/04/17 08:21 Dose: 100 mg Vitamin B Complex/Vit C/Folic Acid (Nephro-Yemi) 1 tab PO DAILY [facility] Last Admin: 05/04/17 08:22 Dose: 1 tab - Labs Labs: 05/02/17 06:05 05/02/17 06:05 APTT 55.3 SECONDS (23.3-32.5) H 04/04/17 04:35 - Constitutional Appears: No Acute Distress - Head Exam Head Exam: ATRAUMATIC - Eye Exam Eye Exam: EOMI - ENT Exam ENT Exam: Mucous Membranes Moist - Neck Exam Neck Exam: Full ROM - Respiratory Exam Respiratory Exam: Clear to Ausculation Bilateral, NORMAL BREATHING PATTERN - Cardiovascular Exam Cardiovascular Exam: +S1, +S2 - GI/Abdominal Exam GI & Abdominal Exam: Soft. absent: Tenderness, Normal Bowel Sounds - Extremities Exam Extremities Exam: Joint Swelling, Pedal Edema. absent: Calf Tenderness, Tenderness Additional comments: Pedal Edema (+2 )up to knees with stasis dermatitis) - Back Exam Back Exam: absent: CVA tenderness (L), CVA tenderness (R) - Neurological Exam Neurological Exam: Alert, Awake, Oriented x3 - Psychiatric Exam Psychiatric exam: Normal Affect, Normal Mood - Skin Skin Exam: Dry, Normal Color Assessment and Plan - Assessment and Plan (Free Text) Assessment: 67 yr old M admitted for respiratory distress and found to have Acute on Chronic Kidney Injury and CHF exacerbation. Patient has ESRD and needs dialysis 3 times per week. RUE PICC line and right chest PERMCath patent with dressing dry/intact. SW is working on arranging outpatient hemodialysis. Diffuse anasarca of left lower abdominal quadrant has improved. 1. 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 Diffuse Anasarca -stable, persists -likely secondary to CHF and CKD -CT Abd and Pelvis: severe diffuse anasarca, unremarkable appearance of urinary bladder, no focal or diffuse -Urology consult appreciated Dr. Henley: follow recommendations -diuretic management: Torsemide, Metolazone 5mg PO QD, Aldactone 50 mg PO QD 3. COPD -stable O2 saturation wnl on room air -Likely 2dary to acute CHF Exacerbation vs NSTEMI vs acute on CKD vs multifocal PNA -CXR 04/03/17: multifocal hazy opacities increased bilaterally in lungs compared to prior CXR, left sided pleural effusion, dx includes edema,hemorrhage, multifocal PNA -CT Chest 04/04/17: Large bilateral pleural effusions, compressive atelectasis and upper lobe infiltrates, cardiomegaly, pericardial effusion-correlate for CHF -ID consult appreciated, Dr. Silver: follow recommendations , d/c'd Zosyn (s/p 10 days tx) -Prednisone 10mg PO QD -CXR 04/12/17: Small left pleural effusion and associated atelectasis or infiltrate, subtle infiltrate at the right lung base 4. 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 Systolic CHF with Acute Exacerbation -Echo 04/02/17: LVEF 30-35%, with generalized moderate hypokinesia particularly pronounced in the septum -Cardio consult appreciated Dr. Miles: patient is not a suitable candidate for invasive cardiac workup, recommend continue with Coreg 6.25mg Q12, Heparin 5,000 units SC BID, Lipitor 20 mg PO QD, Plavix 75mg QD -start Torsemide 100mg PO daily, discontinue Lasix 80mg IVPB QD -ProBNP: improved to 87,400 (04/05/17) from 167,000 (04/02/17) -Not a good candidate for MAN-i due to impaired renal function -Strict I/Os. Daily weights. 6. NSTEMI -stable -Continue with aspirin 81 mg daily, Plavix 75 mg daily, Coreg 6.25mg PO Q12, Heparin 5,000 units SC BID -Not a good candidate for MAN inhibitor due to impaired renal function -Troponin elevated (serial measurement :0.285, 0.549, 0.384, 0.326) -Cardiology on board, consult appreciated Dr. Miles: f/u recommendations 7. Hx of RUE DVT -RUE DVT detected on 02/04/17 however patient was not a good candidate for correction anticoagulation -RUE duplex 04/20/17: No evidence of vein thrombosis of the RUE with normal venous flow -D-dimer also elevated at admission but of undetermined significance -B/L upper extremities US showed partial compression of the right basilic vein, possible due to a chronic thrombus -B/L lower extremities US showed no evidence of DVT -Discontinued Heparin drip ( for therapeutic management of ACS), was stopped because dropped in H/H -continue anticoagulation as above 8. HTN -uncontrolled -likely due to worsening renal function, CHF -Cardio consult appreciated Dr. Miles: continue with Hydralazine, Clonidine , Norvasc -monitor BP 9. DVT/GI Prophylaxis -SCDs -Heparin 5000 units SC BID -Pantoprazole 40mg PO QD
[2017-05-05] MEDS: Nitroglycerin 2% 15 INCH/30 GM TUBE TOP SCH ×4 (01:29→18:11)
--- NOTE | 2017-05-05 08:16 | CP.PCM.PN ---
Subjective - Date & Time of Evaluation Date of Evaluation: 05/05/17 Time of Evaluation: 07:30 - Subjective Subjective: Patient seen and examined at bedside. Denies chest pain, SOB, weakness or dizziness. Reports difficulty with bowel movements. Minimal urine output persists, diffuse anasarca has improved. Patient is aware he has hemodialysis scheduled for today and needs it three times a week due to his ESRD. Objective - Vital Signs/Intake and Output Vital Signs (last 24 hours): Temp Pulse Resp BP Pulse Ox 97.8 F 78 20 170/84 H 96 05/05/17 07:52 05/05/17 07:52 05/05/17 07:52 05/05/17 07:52 05/05/17 07:52 - Medications Medications: Current Medications Amlodipine Besylate (Norvasc) 10 mg PO DAILY [facility] Last Admin: 05/04/17 08:23 Dose: 10 mg Aspirin (Aspirin Chewable) 81 mg PO DAILY [facility] Last Admin: 05/04/17 08:22 Dose: 81 mg Atorvastatin Calcium (Lipitor) 20 mg PO HS [facility] Last Admin: 05/04/17 21:06 Dose: 20 mg Bacitracin (Bacitracin) 1 ea TOP TID [facility] Last Admin: 05/04/17 16:07 Dose: 1 ea Carvedilol (Coreg) 6.25 mg PO Q12 [facility] Last Admin: 05/04/17 21:06 Dose: 6.25 mg Citalopram Hydrobromide (Celexa) 20 mg PO DAILY [facility] Last Admin: 05/04/17 08:22 Dose: 20 mg Clonidine HCl (Catapres) 0.3 mg PO BID [facility] Last Admin: 05/04/17 16:08 Dose: 0.3 mg Clopidogrel Bisulfate (Plavix) 75 mg PO DAILY [facility] Last Admin: 05/04/17 08:22 Dose: 75 mg Docusate Sodium (Colace) 100 mg PO DAILY [facility] Last Admin: 05/04/17 11:22 Dose: 100 mg Epoetin José Manuel (Procrit) 10,000 unit IV MWF [facility] Last Admin: 05/03/17 13:46 Dose: 10,000 unit Ergocalciferol (Drisdol 50,000 Intl Units Cap) 1 cap PO Q7D [facility] Last Admin: 04/29/17 16:55 Dose: 1 cap Guaifenesin/Dextromethorphan (Robitussin Dm) 10 ml PO Q4 PRN PRN Reason: Cough Last Admin: 04/25/17 16:25 Dose: 10 ml Heparin Sodium (Porcine) (Heparin) 5,000 units SC Q12 [facility] PRN Reason: Protocol Last Admin: 05/04/17 21:09 Dose: Not Given Hydralazine HCl (Apresoline) 50 mg PO TID [facility] Last Admin: 05/04/17 16:07 Dose: 50 mg Ipratropium [place] (Atrovent) 0.5 mg IH RQ6 PRN PRN Reason: Wheezing Lactulose (Enulose) 20 gm PO BID PRN PRN Reason: Constipation Metolazone (Zaroxolyn) 5 mg PO DAILY [facility] Last Admin: 05/04/17 08:21 Dose: 5 mg Nitroglycerin (Nitro-Bid 2% Oint) 1 inch TOP Q6H [facility] Last Admin: 05/05/17 06:36 Dose: 1 inch Pantoprazole Sodium (Protonix Ec Tab) 40 mg PO DAILY [facility] Last Admin: 05/04/17 08:22 Dose: 40 mg Prednisone (Prednisone Tab) 10 mg PO DAILY [facility] Last Admin: 05/04/17 08:23 Dose: 10 mg Fluticasone/Salmeterol (Advair Diskus 500/50) 1 puff IH Q12 [facility] Last Admin: 05/04/17 21:06 Dose: 1 puff Sevelamer Carbonate (Renvela) 1.6 gm PO TIDWM [facility] Last Admin: 05/04/17 16:07 Dose: 1.6 gm Spironolactone (Aldactone) 50 mg PO DAILY [facility] Last Admin: 05/04/17 08:22 Dose: 50 mg Torsemide (Demadex) 100 mg PO DAILY [facility] Last Admin: 05/04/17 08:21 Dose: 100 mg Vitamin B Complex/Vit C/Folic Acid (Nephro-Yemi) 1 tab PO DAILY [facility] Last Admin: 05/04/17 08:22 Dose: 1 tab - Labs Labs: 05/02/17 06:05 05/02/17 06:05 APTT 55.3 SECONDS (23.3-32.5) H 04/04/17 04:35 - Constitutional Appears: Non-toxic, No Acute Distress - Head Exam Head Exam: ATRAUMATIC, NORMOCEPHALIC - Eye Exam Eye Exam: EOMI, PERRL - ENT Exam ENT Exam: Mucous Membranes Moist - Neck Exam Neck Exam: Full ROM. absent: Lymphadenopathy - Respiratory Exam Respiratory Exam: Rhonchi (mild in bilateral upper lobes), NORMAL BREATHING PATTERN - Cardiovascular Exam Cardiovascular Exam: REGULAR RHYTHM, +S1, +S2 - GI/Abdominal Exam GI & Abdominal Exam: Soft (obese). absent: Distended, Tenderness - Extremities Exam Extremities Exam: Full ROM, Pedal Edema (+1 bilaterally with stasis dermatities) Additional comments: RUE PICC line dressing clean/dry/intact, right chest PERMCath dressing clean/dry /intact - Back Exam Back Exam: absent: CVA tenderness (L), CVA tenderness (R) - Neurological Exam Neurological Exam: Alert, Awake, CN II-XII Intact, Normal Gait, Oriented x3 - Psychiatric Exam Psychiatric exam: Normal Affect, Normal Mood - Skin Skin Exam: Dry, Intact, Warm Assessment and Plan - Assessment and Plan (Free Text) Assessment: 67 yr old M admitted for respiratory distress and found to have Acute on Chronic Kidney Injury and CHF exacerbation. Patient has ESRD and needs dialysis 3 times per week. RUE PICC line and right chest PERMCath patent with dressing dry/intact. SW is working on arranging outpatient hemodialysis. Diffuse anasarca and extremity edema have improved. 1. 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 Diffuse Anasarca -stable, persists -likely secondary to CHF and CKD -CT Abd and Pelvis: severe diffuse anasarca, unremarkable appearance of urinary bladder, no focal or diffuse -Urology consult appreciated Dr. Henley: follow recommendations -diuretic management: Torsemide 100 mg PO QD, Metolazone 5mg PO QD, Aldactone 50 mg PO QD 3. COPD -stable O2 saturation wnl on room air -Likely 2dary to acute CHF Exacerbation vs NSTEMI vs acute on CKD vs multifocal PNA -CXR 04/03/17: multifocal hazy opacities increased bilaterally in lungs compared to prior CXR, left sided pleural effusion, dx includes edema,hemorrhage, multifocal PNA -CT Chest 04/04/17: Large bilateral pleural effusions, compressive atelectasis and upper lobe infiltrates, cardiomegaly, pericardial effusion-correlate for CHF -ID consult appreciated, Dr. Silver: follow recommendations , d/c'd Zosyn (s/p 10 days tx) -Prednisone 10mg PO QD -CXR 04/12/17: Small left pleural effusion and associated atelectasis or infiltrate, subtle infiltrate at the right lung base 4. 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 Systolic CHF with Acute Exacerbation -Echo 04/02/17: LVEF 30-35%, with generalized moderate hypokinesia particularly pronounced in the septum -Cardio consult appreciated Dr. Miles: patient is not a suitable candidate for invasive cardiac workup, recommend continue with Coreg 6.25mg Q12, Heparin 5,000 units SC BID, Lipitor 20 mg PO QD, Plavix 75mg QD -start Torsemide 100mg PO daily, discontinue Lasix 80mg IVPB QD -ProBNP: improved to 87,400 (04/05/17) from 167,000 (04/02/17) -Not a good candidate for MAN-i due to impaired renal function -Strict I/Os. Daily weights. 6. NSTEMI -stable -Continue with aspirin 81 mg daily, Plavix 75 mg daily, Coreg 6.25mg PO Q12, Heparin 5,000 units SC BID -Not a good candidate for MAN inhibitor due to impaired renal function -Troponin elevated (serial measurement :0.285, 0.549, 0.384, 0.326) -Cardiology on board, consult appreciated Dr. Miles: f/u recommendations 7. 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 HTN -uncontrolled -likely due to worsening renal function, CHF -Cardio consult appreciated Dr. Miles: continue with Hydralazine, Clonidine , Norvasc -monitor BP 9. DVT/GI Prophylaxis -SCDs -Heparin 5000 units SC BID -Pantoprazole 40mg PO QD
[2017-05-05] MEDS: Bacitracin 500 Units/gm Oint Foilpak UD TOP SCH ×3 (09:13→18:11)
[2017-05-05] MEDS: metOLazone 5 MG TAB PO SCH (09:15)
[2017-05-05] MEDS: Multivitamin Vitamin B Complex (Nephro-Vite) Tab PO SCH (09:15)
[2017-05-05] MEDS: Fluticasone-Salmeterol 500-50mcg Diskus IH SCH ×2 (09:16→21:36)
[2017-05-05] MEDS: Pantoprazole 40 mg EC Tab PO SCH (09:17)
[2017-05-05] MEDS: Sevelamer Carb 0.8 gm/Packet PO SCH ×3 (09:19→18:12)
--- NOTE | 2017-05-05 11:31 | CP.PCM.PN ---
Subjective - Date & Time of Evaluation Date of Evaluation: 05/05/17 Time of Evaluation: 11:30 - Subjective Subjective: Patient appears to be comfortable Hemodialysis as scheduled shortly Blood pressure is still elevated Increase the clonidine to 3 times a day from twice a day monitoring Patient waiting for placement Objective - Vital Signs/Intake and Output Vital Signs (last 24 hours): Temp Pulse Resp BP Pulse Ox 97.8 F 78 20 170/84 H 96 05/05/17 07:52 05/05/17 09:18 05/05/17 07:52 05/05/17 09:18 05/05/17 07:52 - Medications Medications: Current Medications Amlodipine Besylate (Norvasc) 10 mg PO DAILY [facility] Last Admin: 05/05/17 09:18 Dose: 10 mg Aspirin (Aspirin Chewable) 81 mg PO DAILY [facility] Last Admin: 05/05/17 09:20 Dose: 81 mg Atorvastatin Calcium (Lipitor) 20 mg PO HS [facility] Last Admin: 05/04/17 21:06 Dose: 20 mg Bacitracin (Bacitracin) 1 ea TOP TID [facility] Last Admin: 05/05/17 09:13 Dose: 1 ea Carvedilol (Coreg) 6.25 mg PO Q12 [facility] Last Admin: 05/05/17 09:17 Dose: 6.25 mg Citalopram Hydrobromide (Celexa) 20 mg PO DAILY [facility] Last Admin: 05/05/17 09:17 Dose: 20 mg Clopidogrel Bisulfate (Plavix) 75 mg PO DAILY [facility] Last Admin: 05/05/17 09:15 Dose: 75 mg Docusate Sodium (Colace) 100 mg PO DAILY [facility] Last Admin: 05/05/17 09:25 Dose: 100 mg Epoetin José Manuel (Procrit) 10,000 unit IV MWF [facility] Last Admin: 05/03/17 13:46 Dose: 10,000 unit Ergocalciferol (Drisdol 50,000 Intl Units Cap) 1 cap PO Q7D [facility] Last Admin: 04/29/17 16:55 Dose: 1 cap Guaifenesin/Dextromethorphan (Robitussin Dm) 10 ml PO Q4 PRN PRN Reason: Cough Last Admin: 04/25/17 16:25 Dose: 10 ml Heparin Sodium (Porcine) (Heparin) 5,000 units SC Q12 [facility] PRN Reason: Protocol Last Admin: 05/05/17 09:13 Dose: 5,000 units Hydralazine HCl (Apresoline) 50 mg PO TID [facility] Last Admin: 05/05/17 09:14 Dose: 50 mg Ipratropium [place] (Atrovent) 0.5 mg IH RQ6 PRN PRN Reason: Wheezing Lactulose (Enulose) 20 gm PO BID PRN PRN Reason: Constipation Last Admin: 05/05/17 09:13 Dose: 20 gm Metolazone (Zaroxolyn) 5 mg PO DAILY [facility] Last Admin: 05/05/17 09:15 Dose: 5 mg Nitroglycerin (Nitro-Bid 2% Oint) 1 inch TOP Q6H [facility] Last Admin: 05/05/17 06:36 Dose: 1 inch Pantoprazole Sodium (Protonix Ec Tab) 40 mg PO DAILY [facility] Last Admin: 05/05/17 09:17 Dose: 40 mg Prednisone (Prednisone Tab) 10 mg PO DAILY [facility] Last Admin: 05/05/17 09:15 Dose: 10 mg Fluticasone/Salmeterol (Advair Diskus 500/50) 1 puff IH Q12 [facility] Last Admin: 05/05/17 09:16 Dose: 1 puff Sevelamer Carbonate (Renvela) 1.6 gm PO TIDWM [facility] Last Admin: 05/05/17 09:19 Dose: 1.6 gm Spironolactone (Aldactone) 50 mg PO DAILY [facility] Last Admin: 05/05/17 09:16 Dose: 50 mg Torsemide (Demadex) 100 mg PO DAILY [facility] Last Admin: 05/05/17 09:15 Dose: 100 mg Vitamin B Complex/Vit C/Folic Acid (Nephro-Yemi) 1 tab PO DAILY [facility] Last Admin: 05/05/17 09:15 Dose: 1 tab - Labs Labs: 05/02/17 06:05 05/02/17 06:05 APTT 55.3 SECONDS (23.3-32.5) H 04/04/17 04:35 Assessment and Plan (1) Acute on chronic renal failure Status: Acute (2) Acute systolic congestive heart failure Status: Acute
--- NOTE | 2017-05-05 15:02 | CP.PCM.CON ---
History of Present Illness - History of Present Illness History of Present Illness: PT WELL KNOWN TO ID SERVICE WITH VASCULITIS PROGRESSING TO RENAL FAILURE NOW IN ICU ON HD HAS HX + PPD BUT NEGATIVE AFB SMEARS / CULTURES ' 67 y/o homeless M with PMH including HTN, CHF, CKD, ANCA vasculitis and DVT of RUE (detected on 02/04/17) presents to ED with roughly 4 day history of progressive SOB. Patient reports noticing increasing SOB, lower extremity edema and progressive exercise intolerance which became associated with chest pain today. Chest pain was retrosternal, non radiating, "pressure" like in quality and 9/10 intensity. Patient also notes associated subjective fever, chills and cough productive of blood tinged mucus. He denies headache, visual disturbances , abdominal pain or focal weakness. Review of Systems - Review of Systems All systems: reviewed and no additional remarkable complaints except - Constitutional Constitutional: As Per HPI Past Patient History - Infectious Disease Hx of Infectious Diseases: None - Past Medical History & Family History Past Medical History?: Yes - Past Social History Smoking Status: Former Smoker - CARDIAC Hx Cardiac Disorders: Yes Hx Congestive Heart Failure: Yes Hx Hypertension: Yes - PULMONARY Hx Chronic Obstructive Pulmonary Disease (COPD): Yes - NEUROLOGICAL Hx Neurological Disorder: Yes - HEENT Hx HEENT Problems: No - RENAL Hx Chronic Kidney Disease: Yes - ENDOCRINE/METABOLIC Hx Endocrine Disorders: No - HEMATOLOGICAL/ONCOLOGICAL Hx Anemia: Yes - INTEGUMENTARY Hx Dermatological Problems: No - MUSCULOSKELETAL/RHEUMATOLOGICAL Hx Arthritis: Yes - GASTROINTESTINAL Hx Gastrointestinal Disorders: Yes Hx Hemorrhoids: Yes - GENITOURINARY/GYNECOLOGICAL Hx Genitourinary Disorders: No - PSYCHIATRIC Hx Psychophysiologic Disorder: Yes - SURGICAL HISTORY Hx Coronary Stent: No - ANESTHESIA Hx Anesthesia: Yes Hx Anesthesia Reactions: No Meds Allergies/Adverse Reactions: Allergies Allergy/AdvReac Type Severity Reaction Status Date / Time sulfamethoxazole Allergy RASH Verified 03/06/17 17:55 [From ] trimethoprim [From ] Allergy RASH Verified 03/06/17 17:55 - Medications Medications: Current Medications Amlodipine Besylate (Norvasc) 10 mg PO DAILY [facility] Last Admin: 05/05/17 09:18 Dose: 10 mg Aspirin (Aspirin Chewable) 81 mg PO DAILY [facility] Last Admin: 05/05/17 09:20 Dose: 81 mg Atorvastatin Calcium (Lipitor) 20 mg PO HS [facility] Last Admin: 05/04/17 21:06 Dose: 20 mg Bacitracin (Bacitracin) 1 ea TOP TID [facility] Last Admin: 05/05/17 12:34 Dose: 1 ea Carvedilol (Coreg) 6.25 mg PO Q12 [facility] Last Admin: 05/05/17 09:17 Dose: 6.25 mg Citalopram Hydrobromide (Celexa) 20 mg PO DAILY [facility] Last Admin: 05/05/17 09:17 Dose: 20 mg Clonidine HCl (Catapres) 0.3 mg PO TID [facility] Last Admin: 05/05/17 12:32 Dose: 0.3 mg Clopidogrel Bisulfate (Plavix) 75 mg PO DAILY [facility] Last Admin: 05/05/17 09:15 Dose: 75 mg Docusate Sodium (Colace) 100 mg PO DAILY [facility] Last Admin: 05/05/17 09:25 Dose: 100 mg Epoetin José Manuel (Procrit) 10,000 unit IV MWF [facility] Last Admin: 05/03/17 13:46 Dose: 10,000 unit Ergocalciferol (Drisdol 50,000 Intl Units Cap) 1 cap PO Q7D [facility] Last Admin: 04/29/17 16:55 Dose: 1 cap Guaifenesin/Dextromethorphan (Robitussin Dm) 10 ml PO Q4 PRN PRN Reason: Cough Last Admin: 04/25/17 16:25 Dose: 10 ml Heparin Sodium (Porcine) (Heparin) 5,000 units SC Q12 [facility] PRN Reason: Protocol Last Admin: 05/05/17 09:13 Dose: 5,000 units Hydralazine HCl (Apresoline) 50 mg PO TID [facility] Last Admin: 05/05/17 12:30 Dose: 50 mg Ipratropium [place] (Atrovent) 0.5 mg IH RQ6 PRN PRN Reason: Wheezing Lactulose (Enulose) 20 gm PO BID PRN PRN Reason: Constipation Last Admin: 05/05/17 09:13 Dose: 20 gm Metolazone (Zaroxolyn) 5 mg PO DAILY [facility] Last Admin: 05/05/17 09:15 Dose: 5 mg Nitroglycerin (Nitro-Bid 2% Oint) 1 inch TOP Q6H [facility] Last Admin: 05/05/17 12:32 Dose: 1 inch Pantoprazole Sodium (Protonix Ec Tab) 40 mg PO DAILY [facility] Last Admin: 05/05/17 09:17 Dose: 40 mg Prednisone (Prednisone Tab) 10 mg PO DAILY [facility] Last Admin: 05/05/17 09:15 Dose: 10 mg Fluticasone/Salmeterol (Advair Diskus 500/50) 1 puff IH Q12 [facility] Last Admin: 05/05/17 09:16 Dose: 1 puff Sevelamer Carbonate (Renvela) 1.6 gm PO TIDWM [facility] Last Admin: 05/05/17 12:30 Dose: 1.6 gm Spironolactone (Aldactone) 50 mg PO DAILY [facility] Last Admin: 05/05/17 09:16 Dose: 50 mg Torsemide (Demadex) 100 mg PO DAILY [facility] Last Admin: 05/05/17 09:15 Dose: 100 mg Vitamin B Complex/Vit C/Folic Acid (Nephro-Yemi) 1 tab PO DAILY [facility] Last Admin: 05/05/17 09:15 Dose: 1 tab Physical Exam - Head Exam Head Exam: NORMAL INSPECTION - Eye Exam Eye Exam: PERRL - ENT Exam ENT Exam: Mucous Membranes Dry, Normal External Ear Exam - Neck Exam Neck exam: Negative for: Lymphadenopathy - Respiratory Exam Respiratory Exam: Decreased Breath Sounds, Rhonchi - Cardiovascular Exam Cardiovascular Exam: REGULAR RHYTHM, +S1, +S2 - GI/Abdominal Exam GI & Abdominal Exam: Diminished Bowel Sounds, Soft - Rectal Exam Rectal Exam: Deferred - Exam Exam: NORMAL INSPECTION Results - Vital Signs Recent Vital Signs: Last Vital Signs Temp 97.8 F 05/05/17 07:52 Pulse 78 05/05/17 12:32 Resp 20 05/05/17 07:52 BP 166/84 H 05/05/17 12:32 Pulse Ox 96 05/05/17 07:52 - Labs Result Diagrams: 05/02/17 06:05 05/02/17 06:05 Assessment & Plan (1) Acute on chronic renal failure Status: Acute Priority: High (2) Acute systolic congestive heart failure Status: Acute (3) CHF (congestive heart failure) Status: Acute (4) NSTEMI (non-ST elevated myocardial infarction) Status: Acute
[2017-05-06] MEDS: Nitroglycerin 2% 15 INCH/30 GM TUBE TOP SCH ×3 (01:00→19:30)
[2017-05-06] MEDS: Fluticasone-Salmeterol 500-50mcg Diskus IH SCH ×2 (08:13→21:30)
[2017-05-06] MEDS: metOLazone 5 MG TAB PO SCH (08:15)
[2017-05-06] MEDS: Pantoprazole 40 mg EC Tab PO SCH (08:15)
[2017-05-06] MEDS: Multivitamin Vitamin B Complex (Nephro-Vite) Tab PO SCH (08:16)
[2017-05-06] MEDS: Sevelamer Carb 0.8 gm/Packet PO SCH (08:21)
[2017-05-06] MEDS: Bacitracin 500 Units/gm Oint Foilpak UD TOP SCH (08:24)
--- NOTE | 2017-05-06 08:39 | CP.PCM.PN ---
Objective - Vital Signs/Intake and Output Vital Signs (last 24 hours): Temp Pulse Resp BP Pulse Ox 98.2 F 72 19 138/76 96 05/06/17 00:48 05/06/17 08:18 05/06/17 00:48 05/06/17 08:18 05/06/17 00:48 - Medications Medications: Current Medications Amlodipine Besylate (Norvasc) 10 mg PO DAILY [facility] Last Admin: 05/06/17 08:16 Dose: 10 mg Aspirin (Aspirin Chewable) 81 mg PO DAILY [facility] Last Admin: 05/06/17 08:19 Dose: 81 mg Atorvastatin Calcium (Lipitor) 20 mg PO HS [facility] Last Admin: 05/05/17 21:36 Dose: 20 mg Bacitracin (Bacitracin) 1 ea TOP TID [facility] Last Admin: 05/06/17 08:24 Dose: 1 ea Carvedilol (Coreg) 6.25 mg PO Q12 [facility] Last Admin: 05/06/17 08:16 Dose: 6.25 mg Citalopram Hydrobromide (Celexa) 20 mg PO DAILY [facility] Last Admin: 05/06/17 08:16 Dose: 20 mg Clonidine HCl (Catapres) 0.3 mg PO TID [facility] Last Admin: 05/06/17 08:18 Dose: 0.3 mg Clopidogrel Bisulfate (Plavix) 75 mg PO DAILY [facility] Last Admin: 05/06/17 08:16 Dose: 75 mg Docusate Sodium (Colace) 100 mg PO DAILY [facility] Last Admin: 05/06/17 08:19 Dose: 100 mg Epoetin José Manuel (Procrit) 10,000 unit IV MWF [facility] Last Admin: 05/03/17 13:46 Dose: 10,000 unit Ergocalciferol (Drisdol 50,000 Intl Units Cap) 1 cap PO Q7D [facility] Last Admin: 04/29/17 16:55 Dose: 1 cap Guaifenesin/Dextromethorphan (Robitussin Dm) 10 ml PO Q4 PRN PRN Reason: Cough Last Admin: 04/25/17 16:25 Dose: 10 ml Heparin Sodium (Porcine) (Heparin) 5,000 units SC Q12 [facility] PRN Reason: Protocol Last Admin: 05/06/17 08:21 Dose: 5,000 units Hydralazine HCl (Apresoline) 50 mg PO TID [facility] Last Admin: 05/06/17 08:18 Dose: 50 mg Ipratropium [place] (Atrovent) 0.5 mg IH RQ6 PRN PRN Reason: Wheezing Lactulose (Enulose) 20 gm PO BID PRN PRN Reason: Constipation Last Admin: 05/05/17 09:13 Dose: 20 gm Metolazone (Zaroxolyn) 5 mg PO DAILY [facility] Last Admin: 05/06/17 08:15 Dose: 5 mg Nitroglycerin (Nitro-Bid 2% Oint) 1 inch TOP Q6H [facility] Last Admin: 05/06/17 06:44 Dose: 1 inch Pantoprazole Sodium (Protonix Ec Tab) 40 mg PO DAILY [facility] Last Admin: 05/06/17 08:15 Dose: 40 mg Prednisone (Prednisone Tab) 10 mg PO DAILY [facility] Last Admin: 05/06/17 08:19 Dose: 10 mg Fluticasone/Salmeterol (Advair Diskus 500/50) 1 puff IH Q12 [facility] Last Admin: 05/06/17 08:13 Dose: 1 puff Sevelamer Carbonate (Renvela) 1.6 gm PO TIDWM [facility] Last Admin: 05/06/17 08:21 Dose: 1.6 gm Spironolactone (Aldactone) 50 mg PO DAILY [facility] Last Admin: 05/06/17 08:17 Dose: 50 mg Torsemide (Demadex) 100 mg PO DAILY [facility] Last Admin: 05/06/17 08:15 Dose: 100 mg Vitamin B Complex/Vit C/Folic Acid (Nephro-Yemi) 1 tab PO DAILY [facility] Last Admin: 05/06/17 08:16 Dose: 1 tab - Labs Labs: 05/02/17 06:05 05/02/17 06:05 APTT 55.3 SECONDS (23.3-32.5) H 04/04/17 04:35
[2017-05-06] MEDS ORDERED: Bacitracin 500 Units/gm Oint Foilpak UD ONE (09:00)
[2017-05-06] MEDS ORDERED: Pantoprazole 40 mg EC Tab PO ONE (09:00)
[2017-05-06] MEDS ORDERED: Sevelamer Carb 0.8 gm/Packet ONE (09:00)
[2017-05-06] MEDS ORDERED: Nitroglycerin 2% Ointment Foilpak UD TOP ONE (09:00)
[2017-05-06 11:12] LABS: CALCIUM 7.8 mg/dL (8.4-10.2)
[2017-05-06] MEDS: Ergocalciferol 50,000 Intl Units Cap PO SCH (21:40)
--- NOTE | 2017-05-06 22:31 | CP.PCM.PN ---
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 No acute need today. Continue with Nephrovite 1 tab/day. PRBC as needed for anemia. On MARCELINA as epogen 10,000 unit with HD, last Hb 9.3 TSAT 92% and Ferritin. 1200 Continue with phos binders supplement with Vit d weekly x 8 doses. check PTH level BP control with meds as ordered. Patient on RAAS noel as with Aldactone. Glycemic control, Dialysis consistent diet Further work up/management as per primary team Dose meds/antibiotics (if needed) for GFR <10 status. Avoid fleets enema/ magnesium based laxatives. he is pending placement for dialysis in outpt units Thanks for allowing me to participate in care of your patient. Will follow patient with you. Please call if any Qs Dr Darren Samano Office: [phone] Subjective: Noted events overnight. Patients feels okay. Denies chest pain, palpitation. Improved shortness of breath Physical Examination: General Appearance: Comfortable, in no acute respiratory distress, co- operative. Vitals reviewed and noted as below Lungs: Normal respiratory rate/effort. Breath sounds bilateral equal and clear Heart: Normal rate. s1s2 normal. No rub or gallop. Extremities: trace edema. Neurological: Patient is alert, awake and oriented to person, place and time. No focal deficit. Strength bilateral appropriate and equal Skin: Warm and dry. Normal turgor. No rash. Palpitation: Normal elasticity for age Abdomen: Abdomen is soft. Bowel sounds +. There is no abdominal tenderness, no guarding/rigidity or organomegaly : kidney or bladder not palpable. has scrotal swelling Access: permacath Labs/imaging reviewed. Past medical history, past surgical history, family history, social history, allergy reviewed Objective - Vital Signs/Intake and Output Vital Signs (last 24 hours): Temp Pulse Resp BP Pulse Ox 98.2 F 69 19 156/79 H 96 05/06/17 00:48 05/06/17 21:42 05/06/17 00:48 05/06/17 21:42 05/06/17 00:48 - Medications Medications: Current Medications Amlodipine Besylate (Norvasc) 10 mg PO DAILY [facility] Last Admin: 05/06/17 08:16 Dose: 10 mg Aspirin (Aspirin Chewable) 81 mg PO DAILY [facility] Last Admin: 05/06/17 08:19 Dose: 81 mg Atorvastatin Calcium (Lipitor) 20 mg PO HS [facility] Last Admin: 05/05/17 21:36 Dose: 20 mg Bacitracin (Bacitracin) 1 ea TOP TID [facility] Last Admin: 05/06/17 08:24 Dose: 1 ea Carvedilol (Coreg) 6.25 mg PO Q12 [facility] Last Admin: 05/06/17 21:42 Dose: 6.25 mg Citalopram Hydrobromide (Celexa) 20 mg PO DAILY [facility] Last Admin: 05/06/17 08:16 Dose: 20 mg Clonidine HCl (Catapres) 0.3 mg PO TID [facility] Last Admin: 05/06/17 21:42 Dose: 0.3 mg Clopidogrel Bisulfate (Plavix) 75 mg PO DAILY [facility] Last Admin: 05/06/17 08:16 Dose: 75 mg Docusate Sodium (Colace) 100 mg PO DAILY [facility] Last Admin: 05/06/17 08:19 Dose: 100 mg Epoetin José Manuel (Procrit) 10,000 unit IV MWF [facility] Last Admin: 05/03/17 13:46 Dose: 10,000 unit Ergocalciferol (Drisdol 50,000 Intl Units Cap) 1 cap PO Q7D [facility] Last Admin: 05/06/17 21:40 Dose: 1 cap Guaifenesin/Dextromethorphan (Robitussin Dm) 10 ml PO Q4 PRN PRN Reason: Cough Last Admin: 04/25/17 16:25 Dose: 10 ml Heparin Sodium (Porcine) (Heparin) 5,000 units SC Q12 [facility] PRN Reason: Protocol Last Admin: 05/06/17 21:42 Dose: 5,000 units Hydralazine HCl (Apresoline) 50 mg PO TID [facility] Last Admin: 05/06/17 21:41 Dose: 50 mg Ipratropium [place] (Atrovent) 0.5 mg IH RQ6 PRN PRN Reason: Wheezing Lactulose (Enulose) 20 gm PO BID PRN PRN Reason: Constipation Last Admin: 05/05/17 09:13 Dose: 20 gm Metolazone (Zaroxolyn) 5 mg PO DAILY [facility] Last Admin: 05/06/17 08:15 Dose: 5 mg Nitroglycerin (Nitro-Bid 2% Oint) 1 inch TOP Q6H [facility] Last Admin: 05/06/17 19:30 Dose: 1 inch Pantoprazole Sodium (Protonix Ec Tab) 40 mg PO DAILY [facility] Last Admin: 05/06/17 08:15 Dose: 40 mg Prednisone (Prednisone Tab) 10 mg PO DAILY [facility] Last Admin: 05/06/17 08:19 Dose: 10 mg Fluticasone/Salmeterol (Advair Diskus 500/50) 1 puff IH Q12 [facility] Last Admin: 05/06/17 08:13 Dose: 1 puff Sevelamer Carbonate (Renvela) 1.6 gm PO TIDWM [facility] Last Admin: 05/06/17 08:21 Dose: 1.6 gm Spironolactone (Aldactone) 50 mg PO DAILY [facility] Last Admin: 05/06/17 08:17 Dose: 50 mg Torsemide (Demadex) 100 mg PO DAILY [facility] Last Admin: 05/06/17 08:15 Dose: 100 mg Vitamin B Complex/Vit C/Folic Acid (Nephro-Yemi) 1 tab PO DAILY [facility] Last Admin: 05/06/17 08:16 Dose: 1 tab - Labs Labs: 05/02/17 06:05 05/06/17 10:50 APTT 55.3 SECONDS (23.3-32.5) H 04/04/17 04:35
[2017-05-07] MEDS: Nitroglycerin 2% 15 INCH/30 GM TUBE TOP SCH ×4 (01:00→20:00)
[2017-05-07] MEDS: Fluticasone-Salmeterol 500-50mcg Diskus IH SCH ×2 (08:41→21:35)
[2017-05-07] MEDS: Sevelamer Carb 0.8 gm/Packet PO SCH ×3 (08:42→17:02)
[2017-05-07] MEDS: metOLazone 5 MG TAB PO SCH (08:43)
[2017-05-07] MEDS: Multivitamin Vitamin B Complex (Nephro-Vite) Tab PO SCH (08:44)
[2017-05-07] MEDS: Pantoprazole 40 mg EC Tab PO SCH (08:44)
[2017-05-07] MEDS: Bacitracin 500 Units/gm Oint Foilpak UD TOP SCH ×3 (08:45→17:01)
--- NOTE | 2017-05-07 09:36 | CP.PCM.PN ---
Subjective - Date & Time of Evaluation Date of Evaluation: 05/07/17 Time of Evaluation: 09:15 - Subjective Subjective: Patient seen and examined at bedside with attending during rounds. He is laying comfortably in bed, in no acute distress. Patient was ambulating well out of bed and in good spirits prior to assessment. He notes significant improvement in his SOB and reports no cough or chest pain. He reports straining with bowel movements and had a nonbloody firm BM one day ago. Patient denies fevers, chills , abdominal pain, nausea or vomiting. Objective - Vital Signs/Intake and Output Vital Signs (last 24 hours): Temp Pulse Resp BP Pulse Ox 98.5 F 59 L 20 177/90 H 97 05/07/17 08:18 05/07/17 08:18 05/07/17 08:18 05/07/17 08:43 05/07/17 08:18 - Medications Medications: Current Medications Amlodipine Besylate (Norvasc) 10 mg PO DAILY [facility] Last Admin: 05/07/17 08:43 Dose: 10 mg Aspirin (Aspirin Chewable) 81 mg PO DAILY [facility] Last Admin: 05/07/17 08:45 Dose: 81 mg Atorvastatin Calcium (Lipitor) 20 mg PO HS [facility] Last Admin: 05/06/17 22:22 Dose: 20 mg Bacitracin (Bacitracin) 1 ea TOP TID [facility] Last Admin: 05/06/17 08:24 Dose: 1 ea Carvedilol (Coreg) 6.25 mg PO Q12 [facility] Last Admin: 05/07/17 08:42 Dose: 6.25 mg Citalopram Hydrobromide (Celexa) 20 mg PO DAILY [facility] Last Admin: 05/07/17 08:44 Dose: 20 mg Clonidine HCl (Catapres) 0.3 mg PO TID [facility] Last Admin: 05/07/17 08:43 Dose: 0.3 mg Clopidogrel Bisulfate (Plavix) 75 mg PO DAILY [facility] Last Admin: 05/07/17 08:45 Dose: 75 mg Docusate Sodium (Colace) 100 mg PO DAILY [facility] Last Admin: 05/07/17 08:43 Dose: 100 mg Epoetin José Manuel (Procrit) 10,000 unit IV MWF [facility] Last Admin: 05/03/17 13:46 Dose: 10,000 unit Ergocalciferol (Drisdol 50,000 Intl Units Cap) 1 cap PO Q7D [facility] Last Admin: 05/06/17 21:40 Dose: 1 cap Guaifenesin/Dextromethorphan (Robitussin Dm) 10 ml PO Q4 PRN PRN Reason: Cough Last Admin: 04/25/17 16:25 Dose: 10 ml Heparin Sodium (Porcine) (Heparin) 5,000 units SC Q12 [facility] PRN Reason: Protocol Last Admin: 05/07/17 08:48 Dose: 5,000 units Ipratropium [place] (Atrovent) 0.5 mg IH RQ6 PRN PRN Reason: Wheezing Lactulose (Enulose) 20 gm PO BID PRN PRN Reason: Constipation Last Admin: 05/07/17 08:48 Dose: 20 gm Metolazone (Zaroxolyn) 5 mg PO DAILY [facility] Last Admin: 05/07/17 08:43 Dose: 5 mg Nitroglycerin (Nitro-Bid 2% Oint) 1 inch TOP Q6H [facility] Last Admin: 05/07/17 06:13 Dose: 1 inch Pantoprazole Sodium (Protonix Ec Tab) 40 mg PO DAILY [facility] Last Admin: 05/07/17 08:44 Dose: 40 mg Prednisone (Prednisone Tab) 10 mg PO DAILY [facility] Last Admin: 05/07/17 08:44 Dose: 10 mg Fluticasone/Salmeterol (Advair Diskus 500/50) 1 puff IH Q12 [facility] Last Admin: 05/07/17 08:41 Dose: 1 puff Sevelamer Carbonate (Renvela) 1.6 gm PO TIDWM [facility] Last Admin: 05/07/17 08:42 Dose: 1.6 gm Spironolactone (Aldactone) 50 mg PO DAILY [facility] Last Admin: 05/07/17 08:44 Dose: 50 mg Torsemide (Demadex) 100 mg PO DAILY [facility] Last Admin: 05/07/17 08:44 Dose: 100 mg Vitamin B Complex/Vit C/Folic Acid (Nephro-Yemi) 1 tab PO DAILY [facility] Last Admin: 05/07/17 08:44 Dose: 1 tab - Labs Labs: 05/02/17 06:05 05/06/17 10:50 APTT 55.3 SECONDS (23.3-32.5) H 04/04/17 04:35 - Constitutional Appears: Non-toxic, No Acute Distress - Head Exam Head Exam: ATRAUMATIC, NORMAL INSPECTION, NORMOCEPHALIC - Eye Exam Eye Exam: EOMI, PERRL - ENT Exam ENT Exam: Mucous Membranes Moist - Respiratory Exam Respiratory Exam: absent: Accessory Muscle Use Additional comments: b/l air entry present with mild rhonchii appreciated b/l. No wheezes or signs of respiratory distress appreciated. - Cardiovascular Exam Cardiovascular Exam: REGULAR RHYTHM, +S1, +S2 - GI/Abdominal Exam GI & Abdominal Exam: Soft, Normal Bowel Sounds. absent: Distended, Tenderness, Rebound - Extremities Exam Extremities Exam: Pedal Edema (1+). absent: Calf Tenderness Additional comments: Chronic stasis dermatitis changes in LE b/l. RUE PICC insertion site clean, dry intact with no signs of acute infection. - Neurological Exam Neurological Exam: Alert, Awake, Oriented x3 - Psychiatric Exam Psychiatric exam: Normal Affect, Normal Mood - Skin Skin Exam: Dry, Warm Assessment and Plan - Assessment and Plan (Free Text) Assessment: 67 yr homeless male with PMH including HTN, CHF, CKD, 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 He was subsequently admitted for respiratory distress on 04/02/17. Patient found to have Acute on Chronic Kidney Injury and CHF exacerbation. During admission, he was diagnosed with ESRD and has started dialysis 3 times per week. His SOB has improved significantly and SW is working on arranging outpatient hemodialysis. Plan: End Stage Renal Disease (HD MWF) 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 (kidney biopsy 12/2016) -BUN/Cr 23/3.0 -Nephrology consult appreciated : will follow recommendations -Pt voiding small amounts and on HD scheduled MWF Systolic CHF with Acute Exacerbation -Echo 04/02/17: LVEF 30-35%, with generalized moderate hypokinesia particularly pronounced in the septum -Cardio consult appreciated Dr. Miles: patient is not a suitable candidate for invasive cardiac workup, recommend continue with Coreg 6.25mg Q12, Heparin 5,000 units SC BID, Lipitor 20 mg PO QD, Plavix 75mg QD -Continue Torsemide 100mg PO daily -Not a good candidate for MAN-i due to impaired renal function -Strict I/Os. Daily weights. -ProBNP: improved to 87,400 (04/05/17) from 167,000 (04/02/17) -Patient appears to be at a functioning baseline. Will repeat Probnp for baseline with next blood draw. COPD -stable O2 saturation wnl on room air -Likely 2dary to acute CHF Exacerbation vs NSTEMI vs acute on CKD vs multifocal PNA -CXR 04/03/17: multifocal hazy opacities increased bilaterally in lungs compared to prior CXR, left sided pleural effusion, dx includes edema,hemorrhage, multifocal PNA -CT Chest 04/04/17: Large bilateral pleural effusions, compressive atelectasis and upper lobe infiltrates, cardiomegaly, pericardial effusion-correlate for CHF -ID consult appreciated, Dr. Silver: follow recommendations , d/c'd Zosyn (s/p 10 days tx) -Prednisone 10mg PO QD -CXR 04/12/17: Small left pleural effusion and associated atelectasis or infiltrate, subtle infiltrate at the right lung base HTN -uncontrolled -likely due to worsening renal function, CHF -Cardio consult appreciated Dr. 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 associated with CKD -Asymptomatic, chronic, stable -S/p 2 units of pRBCs on 04/15/17 -H/H 9.3/27.6 (05/02/17) -Continue monitoring of H/H Hx of RUE DVT -RUE DVT detected on 02/04/17 however patient was not a good candidate for senior living anticoagulation -RUE duplex 04/20/17: No evidence of vein thrombosis of the RUE with normal venous flow -D-dimer also elevated at admission but of undetermined significance -B/L upper extremities US showed partial compression of the right basilic vein, possible due to a chronic thrombus -B/L lower extremities US showed no evidence of DVT -Continue conservative treatment NSTEMI, resolved -Likely NSTEMI during initial admission which was conservatively managed -Patient has been stable -Continue with aspirin 81 mg daily, Plavix 75 mg daily, Coreg 6.25mg PO Q12, Heparin 5,000 units SC BID Diffuse Anasarca, resolved DVT/GI Prophylaxis -SCDs -Heparin 5000 units SC Q12H -Pantoprazole 40mg PO QD
--- NOTE | 2017-05-07 12:49 | CP.PCM.PN ---
Subjective - Date & Time of Evaluation Date of Evaluation: 05/07/17 Time of Evaluation: 08:00 - Subjective Subjective: afebrile Objective - Vital Signs/Intake and Output Vital Signs (last 24 hours): Temp Pulse Resp BP Pulse Ox 98.5 F 59 L 20 177/90 H 97 05/07/17 08:18 05/07/17 08:18 05/07/17 08:18 05/07/17 08:43 05/07/17 08:18 - Medications Medications: Current Medications Amlodipine Besylate (Norvasc) 10 mg PO DAILY [facility] Last Admin: 05/07/17 08:43 Dose: 10 mg Aspirin (Aspirin Chewable) 81 mg PO DAILY [facility] Last Admin: 05/07/17 08:45 Dose: 81 mg Atorvastatin Calcium (Lipitor) 20 mg PO HS [facility] Last Admin: 05/06/17 22:22 Dose: 20 mg Bacitracin (Bacitracin) 1 ea TOP TID [facility] Last Admin: 05/07/17 11:59 Dose: 1 ea Carvedilol (Coreg) 6.25 mg PO Q12 [facility] Last Admin: 05/07/17 08:42 Dose: 6.25 mg Citalopram Hydrobromide (Celexa) 20 mg PO DAILY [facility] Last Admin: 05/07/17 08:44 Dose: 20 mg Clonidine HCl (Catapres) 0.3 mg PO TID [facility] Last Admin: 05/07/17 08:43 Dose: 0.3 mg Clopidogrel Bisulfate (Plavix) 75 mg PO DAILY [facility] Last Admin: 05/07/17 08:45 Dose: 75 mg Docusate Sodium (Colace) 100 mg PO DAILY [facility] Last Admin: 05/07/17 08:43 Dose: 100 mg Epoetin José Manuel (Procrit) 10,000 unit IV MWF [facility] Last Admin: 05/03/17 13:46 Dose: 10,000 unit Ergocalciferol (Drisdol 50,000 Intl Units Cap) 1 cap PO Q7D [facility] Last Admin: 05/06/17 21:40 Dose: 1 cap Guaifenesin/Dextromethorphan (Robitussin Dm) 10 ml PO Q4 PRN PRN Reason: Cough Last Admin: 04/25/17 16:25 Dose: 10 ml Heparin Sodium (Porcine) (Heparin) 5,000 units SC Q12 [facility] PRN Reason: Protocol Last Admin: 05/07/17 08:48 Dose: 5,000 units Hydralazine HCl (Apresoline) 100 mg PO Q8 [facility] Ipratropium [place] (Atrovent) 0.5 mg IH RQ6 PRN PRN Reason: Wheezing Lactulose (Enulose) 20 gm PO BID PRN PRN Reason: Constipation Last Admin: 05/07/17 08:48 Dose: 20 gm Metolazone (Zaroxolyn) 5 mg PO DAILY [facility] Last Admin: 05/07/17 08:43 Dose: 5 mg Nitroglycerin (Nitro-Bid 2% Oint) 1 inch TOP Q6H [facility] Last Admin: 05/07/17 06:13 Dose: 1 inch Pantoprazole Sodium (Protonix Ec Tab) 40 mg PO DAILY [facility] Last Admin: 05/07/17 08:44 Dose: 40 mg Prednisone (Prednisone Tab) 10 mg PO DAILY [facility] Last Admin: 05/07/17 08:44 Dose: 10 mg Fluticasone/Salmeterol (Advair Diskus 500/50) 1 puff IH Q12 [facility] Last Admin: 05/07/17 08:41 Dose: 1 puff Sevelamer Carbonate (Renvela) 1.6 gm PO TIDWM [facility] Last Admin: 05/07/17 11:55 Dose: 1.6 gm Spironolactone (Aldactone) 50 mg PO DAILY [facility] Last Admin: 05/07/17 08:44 Dose: 50 mg Torsemide (Demadex) 100 mg PO DAILY [facility] Last Admin: 05/07/17 08:44 Dose: 100 mg Vitamin B Complex/Vit C/Folic Acid (Nephro-Yemi) 1 tab PO DAILY [facility] Last Admin: 05/07/17 08:44 Dose: 1 tab - Labs Labs: 05/02/17 06:05 05/06/17 10:50 APTT 55.3 SECONDS (23.3-32.5) H 04/04/17 04:35 - Constitutional Appears: Non-toxic, Chronically Ill - Head Exam Head Exam: NORMOCEPHALIC - Eye Exam Eye Exam: PERRL. absent: Scleral icterus - ENT Exam ENT Exam: Mucous Membranes Dry - Neck Exam Neck Exam: absent: Lymphadenopathy - Respiratory Exam Respiratory Exam: Decreased Breath Sounds, Clear to Ausculation Bilateral - Cardiovascular Exam Cardiovascular Exam: REGULAR RHYTHM - GI/Abdominal Exam GI & Abdominal Exam: Distended, Soft. 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
--- NOTE | 2017-05-07 15:17 | CP.PCM.PN ---
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 No acute need today. Continue with Nephrovite 1 tab/day. PRBC as needed for anemia. On MARCELINA as epogen 10,000 unit with HD, last Hb 9.3 TSAT 92% and Ferritin. 1200 Continue with phos binders supplement with Vit d weekly x 8 doses. check PTH level BP control with meds as ordered. Patient on RAAS noel as with Aldactone. Increased hydralazine to 100 mg TID Glycemic control, Dialysis consistent diet Further work up/management as per primary team Dose meds/antibiotics (if needed) for GFR <10 status. Avoid fleets enema/ magnesium based laxatives. he is pending placement for dialysis in outpt units Thanks for allowing me to participate in care of your patient. Will follow patient with you. Please call if any Qs Dr Darren Samano Office: [phone] Subjective: Noted events overnight. Patients feels okay. Denies chest pain, palpitation. Improved shortness of breath. says not making much urine. Physical Examination: General Appearance: Comfortable, in no acute respiratory distress, co- operative. Vitals reviewed and noted as below Lungs: Normal respiratory rate/effort. Breath sounds bilateral equal and clear Heart: Normal rate. s1s2 normal. No rub or gallop. Extremities: 1-2+ edema. Neurological: Patient is alert, awake and oriented to person, place and time. No focal deficit. Strength bilateral appropriate and equal Skin: Warm and dry. Normal turgor. No rash. Palpitation: Normal elasticity for age Abdomen: Abdomen is soft. Bowel sounds +. There is no abdominal tenderness, no guarding/rigidity or organomegaly : kidney or bladder not palpable. has scrotal swelling Access: permacath Labs/imaging reviewed. Past medical history, past surgical history, family history, social history, allergy reviewed Objective - Vital Signs/Intake and Output Vital Signs (last 24 hours): Temp Pulse Resp BP Pulse Ox 98.5 F 59 L 20 177/90 H 97 05/07/17 08:18 05/07/17 08:18 05/07/17 08:18 05/07/17 08:43 05/07/17 08:18 - Medications Medications: Current Medications Amlodipine Besylate (Norvasc) 10 mg PO DAILY [facility] Last Admin: 05/07/17 08:43 Dose: 10 mg Aspirin (Aspirin Chewable) 81 mg PO DAILY [facility] Last Admin: 05/07/17 08:45 Dose: 81 mg Atorvastatin Calcium (Lipitor) 20 mg PO HS [facility] Last Admin: 05/06/17 22:22 Dose: 20 mg Bacitracin (Bacitracin) 1 ea TOP TID [facility] Last Admin: 05/07/17 11:59 Dose: 1 ea Carvedilol (Coreg) 6.25 mg PO Q12 [facility] Last Admin: 05/07/17 08:42 Dose: 6.25 mg Citalopram Hydrobromide (Celexa) 20 mg PO DAILY [facility] Last Admin: 05/07/17 08:44 Dose: 20 mg Clonidine HCl (Catapres) 0.3 mg PO TID [facility] Last Admin: 05/07/17 13:05 Dose: 0.3 mg Clopidogrel Bisulfate (Plavix) 75 mg PO DAILY [facility] Last Admin: 05/07/17 08:45 Dose: 75 mg Docusate Sodium (Colace) 100 mg PO DAILY [facility] Last Admin: 05/07/17 08:43 Dose: 100 mg Epoetin José Manuel (Procrit) 10,000 unit IV MWF [facility] Last Admin: 05/03/17 13:46 Dose: 10,000 unit Ergocalciferol (Drisdol 50,000 Intl Units Cap) 1 cap PO Q7D [facility] Last Admin: 05/06/17 21:40 Dose: 1 cap Guaifenesin/Dextromethorphan (Robitussin Dm) 10 ml PO Q4 PRN PRN Reason: Cough Last Admin: 04/25/17 16:25 Dose: 10 ml Heparin Sodium (Porcine) (Heparin) 5,000 units SC Q12 [facility] PRN Reason: Protocol Last Admin: 05/07/17 08:48 Dose: 5,000 units Hydralazine HCl (Apresoline) 100 mg PO Q8 [facility] Ipratropium [place] (Atrovent) 0.5 mg IH RQ6 PRN PRN Reason: Wheezing Lactulose (Enulose) 20 gm PO BID PRN PRN Reason: Constipation Last Admin: 05/07/17 08:48 Dose: 20 gm Metolazone (Zaroxolyn) 5 mg PO DAILY [facility] Last Admin: 05/07/17 08:43 Dose: 5 mg Nitroglycerin (Nitro-Bid 2% Oint) 1 inch TOP Q6H [facility] Last Admin: 05/07/17 13:10 Dose: 1 inch Pantoprazole Sodium (Protonix Ec Tab) 40 mg PO DAILY [facility] Last Admin: 05/07/17 08:44 Dose: 40 mg Prednisone (Prednisone Tab) 10 mg PO DAILY [facility] Last Admin: 05/07/17 08:44 Dose: 10 mg Fluticasone/Salmeterol (Advair Diskus 500/50) 1 puff IH Q12 [facility] Last Admin: 05/07/17 08:41 Dose: 1 puff Sevelamer Carbonate (Renvela) 1.6 gm PO TIDWM [facility] Last Admin: 05/07/17 11:55 Dose: 1.6 gm Spironolactone (Aldactone) 50 mg PO DAILY [facility] Last Admin: 05/07/17 08:44 Dose: 50 mg Torsemide (Demadex) 100 mg PO DAILY [facility] Last Admin: 05/07/17 08:44 Dose: 100 mg Vitamin B Complex/Vit C/Folic Acid (Nephro-Yemi) 1 tab PO DAILY [facility] Last Admin: 05/07/17 08:44 Dose: 1 tab - Labs Labs: 05/02/17 06:05 05/06/17 10:50 APTT 55.3 SECONDS (23.3-32.5) H 04/04/17 04:35
[2017-05-08] MEDS: Nitroglycerin 2% 15 INCH/30 GM TUBE TOP SCH ×4 (01:00→20:00)
[2017-05-08 07:14] LABS: CALCIUM 7.6 mg/dL (8.4-10.2)
[2017-05-08 07:32] LABS: HEMOGLOBIN 10.3 g/dL (12.0-18.0); MEAN CELL VOLUME 94.1 fl (80.0-94.0); MEAN CORPUSCULAR HEMOGLOBIN 31.8 pg (27.0-31.0); MEAN CORPUSCULAR HGB CONC 33.7 g/dL (33.0-37.0); RBC 3.24 Mil/uL (4.40-5.90); RED CELL DISTRIBUTION WIDTH 22.9 % (11.5-14.5); WHITE BLOOD COUNT 8.7 K/uL (4.8-10.8)
--- NOTE | 2017-05-08 08:20 | CP.PCM.PN ---
Subjective - Date & Time of Evaluation Date of Evaluation: 05/08/17 Time of Evaluation: 07:20 - Subjective Subjective: Patient seen and examined at bedside, in no acute distress, no acute events overnight. Reports having SOB on exertion when showering or walking in hallway. Also has complaint of constipation. Denies cough, chest pain, weakness, dizziness, n/v. Objective - Vital Signs/Intake and Output Vital Signs (last 24 hours): Temp Pulse Resp BP Pulse Ox 97.5 F L 69 20 151/85 H 97 05/08/17 08:14 05/08/17 08:14 05/08/17 08:14 05/08/17 08:14 05/08/17 08:14 - Medications Medications: Current Medications Amlodipine Besylate (Norvasc) 10 mg PO DAILY [facility] Last Admin: 05/07/17 08:43 Dose: 10 mg Aspirin (Aspirin Chewable) 81 mg PO DAILY [facility] Last Admin: 05/07/17 08:45 Dose: 81 mg Atorvastatin Calcium (Lipitor) 20 mg PO HS [facility] Last Admin: 05/07/17 21:36 Dose: 20 mg Bacitracin (Bacitracin) 1 ea TOP TID [facility] Last Admin: 05/07/17 17:01 Dose: 1 ea Carvedilol (Coreg) 6.25 mg PO Q12 [facility] Last Admin: 05/07/17 21:34 Dose: 6.25 mg Citalopram Hydrobromide (Celexa) 20 mg PO DAILY [facility] Last Admin: 05/07/17 08:44 Dose: 20 mg Clonidine HCl (Catapres) 0.3 mg PO TID [facility] Last Admin: 05/07/17 17:01 Dose: 0.3 mg Clopidogrel Bisulfate (Plavix) 75 mg PO DAILY [facility] Last Admin: 05/07/17 08:45 Dose: 75 mg Docusate Sodium (Colace) 100 mg PO DAILY [facility] Last Admin: 05/07/17 08:43 Dose: 100 mg Epoetin José Manuel (Procrit) 10,000 unit IV MWF [facility] Last Admin: 05/03/17 13:46 Dose: 10,000 unit Ergocalciferol (Drisdol 50,000 Intl Units Cap) 1 cap PO Q7D [facility] Last Admin: 05/06/17 21:40 Dose: 1 cap Guaifenesin/Dextromethorphan (Robitussin Dm) 10 ml PO Q4 PRN PRN Reason: Cough Last Admin: 04/25/17 16:25 Dose: 10 ml Heparin Sodium (Porcine) (Heparin) 5,000 units SC Q12 [facility] PRN Reason: Protocol Last Admin: 05/07/17 21:35 Dose: Not Given Hydralazine HCl (Apresoline) 100 mg PO Q8 [facility] Last Admin: 05/08/17 01:05 Dose: 100 mg Ipratropium [place] (Atrovent) 0.5 mg IH RQ6 PRN PRN Reason: Wheezing Lactulose (Enulose) 20 gm PO BID PRN PRN Reason: Constipation Last Admin: 05/07/17 08:48 Dose: 20 gm Metolazone (Zaroxolyn) 5 mg PO DAILY [facility] Last Admin: 05/07/17 08:43 Dose: 5 mg Nitroglycerin (Nitro-Bid 2% Oint) 1 inch TOP Q6H [facility] Last Admin: 05/08/17 01:00 Dose: 1 inch Pantoprazole Sodium (Protonix Ec Tab) 40 mg PO DAILY [facility] Last Admin: 05/07/17 08:44 Dose: 40 mg Prednisone (Prednisone Tab) 10 mg PO DAILY [facility] Last Admin: 05/07/17 08:44 Dose: 10 mg Fluticasone/Salmeterol (Advair Diskus 500/50) 1 puff IH Q12 [facility] Last Admin: 05/07/17 21:35 Dose: 1 puff Sevelamer Carbonate (Renvela) 1.6 gm PO TIDWM [facility] Last Admin: 05/07/17 17:02 Dose: 1.6 gm Spironolactone (Aldactone) 50 mg PO DAILY [facility] Last Admin: 05/07/17 08:44 Dose: 50 mg Torsemide (Demadex) 100 mg PO DAILY [facility] Last Admin: 05/07/17 08:44 Dose: 100 mg Vitamin B Complex/Vit C/Folic Acid (Nephro-Yemi) 1 tab PO DAILY [facility] Last Admin: 05/07/17 08:44 Dose: 1 tab - Labs Labs: 05/08/17 06:30 05/08/17 06:30 APTT 55.3 SECONDS (23.3-32.5) H 04/04/17 04:35 - Constitutional Appears: No Acute Distress - Head Exam Head Exam: ATRAUMATIC, NORMOCEPHALIC - Eye Exam Eye Exam: EOMI, PERRL - ENT Exam ENT Exam: Mucous Membranes Moist - Neck Exam Neck Exam: Full ROM. absent: Lymphadenopathy - Respiratory Exam Respiratory Exam: Rhonchi (in bilateral lower lobes, bronchial breath sounds), NORMAL BREATHING PATTERN - Cardiovascular Exam Cardiovascular Exam: REGULAR RHYTHM, +S1, +S2 - GI/Abdominal Exam GI & Abdominal Exam: Soft (obese), Normal Bowel Sounds. 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 He was subsequently admitted for respiratory distress on 04/02/17. Patient found to have Acute on Chronic Kidney Injury and CHF exacerbation. During admission, he was diagnosed with ESRD and has started dialysis 3 times per week. His SOB has improved significantly and SW is working on arranging outpatient hemodialysis. He is scheduled for hemodialysis today. 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 Miles: patient is not a suitable candidate for invasive cardiac workup, recommend continue with Coreg 6.25mg Q12, Heparin 5,000 units SC BID, Lipitor 20 mg PO QD, Plavix 75mg QD -Continue Torsemide 100mg PO daily -Not a good candidate for MAN-i due to impaired renal function -Strict I/Os. Daily weights. -ProBNP: improved to 87,400 (04/05/17) from 167,000 (04/02/17) -Patient appears to be at a functioning baseline, f/u repeat proBNP COPD -stable O2 saturation wnl on room air -Likely 2dary to acute CHF Exacerbation vs NSTEMI vs acute on CKD vs multifocal PNA -CXR 04/03/17: multifocal hazy opacities increased bilaterally in lungs compared to prior CXR, left sided pleural effusion, dx includes edema,hemorrhage, multifocal PNA -CT Chest 04/04/17: Large bilateral pleural effusions, compressive atelectasis and upper lobe infiltrates, cardiomegaly, pericardial effusion-correlate for CHF -ID consult appreciated, Dr. Silver: follow recommendations , d/c'd Zosyn (s/p 10 days tx) -Prednisone 10mg PO QD -CXR 04/12/17: Small left pleural effusion and associated atelectasis or infiltrate, subtle infiltrate at the right lung base HTN -uncontrolled -likely due to worsening renal function, CHF -Cardio consult appreciated Dr. 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 associated with CKD -Asymptomatic, chronic, stable -S/p 2 units of pRBCs on 04/15/17 -H/H 10.3/30.5 (05/08/17) -Continue monitoring of H/H Hx of RUE DVT -RUE DVT detected on 02/04/17 however patient was not a good candidate for intermediate anticoagulation -RUE duplex 04/20/17: No evidence of vein thrombosis of the RUE with normal venous flow -D-dimer also elevated at admission but of undetermined significance -Continue conservative treatment NSTEMI, resolved -Likely NSTEMI during initial admission which was conservatively managed -Patient has been stable -Continue with ASA 81 mg daily, Plavix 75 mg daily, Coreg 6.25mg PO Q12, Heparin 5,000 units SC BID Diffuse Anasarca, resolved DVT/GI Prophylaxis -SCDs -Heparin 5000 units SC Q12H -Pantoprazole 40mg PO QD
[2017-05-08] MEDS: Fluticasone-Salmeterol 500-50mcg Diskus IH SCH ×2 (08:41→21:24)
[2017-05-08] MEDS: Multivitamin Vitamin B Complex (Nephro-Vite) Tab PO SCH (08:44)
[2017-05-08] MEDS: metOLazone 5 MG TAB PO SCH (08:59)
[2017-05-08] MEDS: Pantoprazole 40 mg EC Tab PO SCH (09:00)
[2017-05-08] MEDS: Bacitracin 500 Units/gm Oint Foilpak UD TOP SCH ×3 (09:03→16:36)
[2017-05-08] MEDS: Sevelamer Carb 0.8 gm/Packet PO SCH ×4 (09:05→16:34)
[2017-05-09] MEDS ORDERED: Absorbable Gelatin Sponge Size 12-7 ONE ×2 (02:04→02:54)
--- NOTE | 2017-05-09 03:12 | CP.PCM.PN ---
Subjective - Date & Time of Evaluation Date of Evaluation: 05/09/17 Time of Evaluation: 02:45 - Subjective Subjective: Soon after dialysis had begun, blood began pooling below the Tegaderm at the site of IJ. Dialysis was quickly stopped and site was cleaned in order to certify the active bleeding had stopped. Dr Sandoval was made aware. After discussing case w overnight hospitalist, and again Dr Sandoval, the decision was made to attempt dialysis one more time. Pt began bleeding from site almost immediately and dialysis was subsequently stopped. Tegaderm was removed and site was again cleaned. Hemostatic gelfoam was placed directly over the IJ insertion site along with a new Tegaderm. Pt denied any pain, chest pain, palpitations, or difficulties breathing. AAOx3 PERRL Full Neck ROM No JVD, RRR, S1 S2 CTA b/l
[2017-05-09] MEDS: Nitroglycerin 2% 15 INCH/30 GM TUBE TOP SCH ×3 (06:42→12:16)
[2017-05-09] MEDS: EPOETIN ALFA 10,000 UNIT/ML ML IV SCH (06:45)
[2017-05-09] MEDS: Sevelamer Carb 0.8 gm/Packet PO SCH ×3 (08:32→17:01)
[2017-05-09] MEDS: Fluticasone-Salmeterol 500-50mcg Diskus IH SCH ×2 (08:32→21:02)
[2017-05-09] MEDS: Pantoprazole 40 mg EC Tab PO SCH (08:33)
[2017-05-09] MEDS: metOLazone 5 MG TAB PO SCH (08:34)
[2017-05-09] MEDS: Multivitamin Vitamin B Complex (Nephro-Vite) Tab PO SCH (08:34)
[2017-05-09] MEDS: Bacitracin 500 Units/gm Oint Foilpak UD TOP SCH ×3 (08:37→17:02)
--- NOTE | 2017-05-09 08:55 | CP.PCM.PN ---
Subjective - Date & Time of Evaluation Date of Evaluation: 05/09/17 Time of Evaluation: 08:00 - Subjective Subjective: Patient seen and examined at bedside, was not able to tolerate hemodialysis last night as he had bleeding from right IJV catheter site. Denies chest pain, SOB, weakness, dizziness, visual changes, n or v. Patient is aware interventional radiology will assess his right chest PERMCath and may have to replace it. Denies any further bleeding from right chest PERMCath this AM. Objective - Vital Signs/Intake and Output Vital Signs (last 24 hours): Temp Pulse Resp BP Pulse Ox 97.9 F 75 20 169/83 H 96 05/09/17 08:07 05/09/17 08:07 05/09/17 08:07 05/09/17 08:07 05/09/17 08:07 - Medications Medications: Current Medications Amlodipine Besylate (Norvasc) 10 mg PO DAILY [facility] Last Admin: 05/09/17 08:33 Dose: 10 mg Aspirin (Aspirin Chewable) 81 mg PO DAILY [facility] Last Admin: 05/09/17 08:34 Dose: 81 mg Atorvastatin Calcium (Lipitor) 20 mg PO HS [facility] Last Admin: 05/08/17 21:26 Dose: 20 mg Bacitracin (Bacitracin) 1 ea TOP TID [facility] Last Admin: 05/09/17 08:37 Dose: Not Given Carvedilol (Coreg) 6.25 mg PO Q12 [facility] Last Admin: 05/09/17 08:38 Dose: 6.25 mg Citalopram Hydrobromide (Celexa) 20 mg PO DAILY [facility] Last Admin: 05/09/17 08:36 Dose: 20 mg Clonidine HCl (Catapres) 0.3 mg PO TID [facility] Last Admin: 05/09/17 08:36 Dose: 0.3 mg Clopidogrel Bisulfate (Plavix) 75 mg PO DAILY [facility] Last Admin: 05/09/17 08:38 Dose: 75 mg Docusate Sodium (Colace) 100 mg PO DAILY [facility] Last Admin: 05/09/17 08:37 Dose: 100 mg Epoetin José Manuel (Procrit) 10,000 unit IV MWF [facility] Last Admin: 05/09/17 06:45 Dose: Not Given Ergocalciferol (Drisdol 50,000 Intl Units Cap) 1 cap PO Q7D [facility] Last Admin: 05/06/17 21:40 Dose: 1 cap Guaifenesin/Dextromethorphan (Robitussin Dm) 10 ml PO Q4 PRN PRN Reason: Cough Last Admin: 04/25/17 16:25 Dose: 10 ml Heparin Sodium (Porcine) (Heparin) 5,000 units SC Q12 [facility] PRN Reason: Protocol Last Admin: 05/09/17 08:34 Dose: 5,000 units Hydralazine HCl (Apresoline) 100 mg PO Q8 [facility] Last Admin: 05/09/17 08:33 Dose: 100 mg Ipratropium [place] (Atrovent) 0.5 mg IH RQ6 PRN PRN Reason: Wheezing Lactulose (Enulose) 20 gm PO BID PRN PRN Reason: Constipation Last Admin: 05/08/17 20:00 Dose: 20 gm Metolazone (Zaroxolyn) 5 mg PO DAILY [facility] Last Admin: 05/09/17 08:34 Dose: 5 mg Nitroglycerin (Nitro-Bid 2% Oint) 1 inch TOP Q6H [facility] Last Admin: 05/09/17 06:42 Dose: 1 inch Pantoprazole Sodium (Protonix Ec Tab) 40 mg PO DAILY [facility] Last Admin: 05/09/17 08:33 Dose: 40 mg Prednisone (Prednisone Tab) 10 mg PO DAILY [facility] Last Admin: 05/09/17 08:34 Dose: 10 mg Fluticasone/Salmeterol (Advair Diskus 500/50) 1 puff IH Q12 [facility] Last Admin: 05/09/17 08:32 Dose: 1 puff Sevelamer Carbonate (Renvela) 1.6 gm PO TIDWM [facility] Last Admin: 05/09/17 08:32 Dose: 1.6 gm Spironolactone (Aldactone) 50 mg PO DAILY [facility] Last Admin: 05/09/17 08:38 Dose: 50 mg Torsemide (Demadex) 100 mg PO DAILY [facility] Last Admin: 05/09/17 08:34 Dose: 100 mg Vitamin B Complex/Vit C/Folic Acid (Nephro-Yemi) 1 tab PO DAILY [facility] Last Admin: 05/09/17 08:34 Dose: 1 tab - Labs Labs: 05/08/17 06:30 05/08/17 06:30 APTT 55.3 SECONDS (23.3-32.5) H 05/30/17 04:35 - Constitutional Appears: Non-toxic - Head Exam Head Exam: ATRAUMATIC, NORMOCEPHALIC - Eye Exam Eye Exam: EOMI, PERRL - ENT Exam ENT Exam: Mucous Membranes Moist - Neck Exam Neck Exam: Full ROM. absent: Lymphadenopathy - Respiratory Exam Respiratory Exam: Rhonchi (mild, bilateral upper lobes), NORMAL BREATHING PATTERN - Cardiovascular Exam Cardiovascular Exam: REGULAR RHYTHM, +S1, +S2 - GI/Abdominal Exam GI & Abdominal Exam: Soft (obese), Normal Bowel Sounds. absent: Distended, Tenderness - Extremities Exam Extremities Exam: Full ROM, Pedal Edema (+1 pitting edema bilaterally up to knees). absent: Calf Tenderness Additional comments: Right chest PERMCath dressing clean and dry, nontender; right uppr extremity PICC line dressing clean/dry, nontender; Bilateral upper extremities: strength 5 /5 , sensation normal and equal, capillary refill <2 sec - Back Exam Back Exam: absent: CVA tenderness (L), CVA tenderness (R) - Neurological Exam Neurological Exam: Alert, Awake, CN II-XII Intact, Oriented x3 - Psychiatric Exam Psychiatric exam: Normal Affect, Normal Mood - Skin Skin Exam: Dry, Intact, Warm Assessment and Plan - Assessment and Plan (Free Text) Assessment: 67 yr homeless male with PMH including HTN, CHF, CKD, 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 He was subsequently admitted for respiratory distress on 04/02/17. Patient found to have Acute on Chronic Kidney Injury and CHF exacerbation. During admission, he was diagnosed with ESRD and has started dialysis 3 times per week. His SOB has improved significantly and SW is working on arranging outpatient hemodialysis. Patient did not tolerate hemodialysis yesterday due to bleeding from right PERMCath site 1 hr into HD session, HD was then discontinued. IR was consulted and Dr. Diaz will evaluate right IJV catheter. Plan: Bleeding from right IJV catheter during hemodialysis -stable, occurred 1 hr into HD session, not actively bleeding at the moment -Right IJV Non-tunneled HD catheter was placed 04/04/17 -IR consult appreciated: Dr. 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 Miles: patient is not a suitable candidate for invasive cardiac workup, recommend continue with Coreg 6.25mg Q12, Heparin 5,000 units SC BID, Lipitor 20 mg PO QD, Plavix 75mg QD -Continue Torsemide 100mg PO daily -Not a good candidate for MAN-i due to impaired renal function -Strict I/Os. Daily weights. -ProBNP: improved to 87,400 (04/05/17) from 167,000 (04/02/17) -Patient appears to be at a functioning baseline, f/u repeat proBNP COPD -stable O2 saturation wnl on room air -Likely 2dary to acute CHF Exacerbation vs NSTEMI vs acute on CKD vs multifocal PNA -CXR 04/03/17: multifocal hazy opacities increased bilaterally in lungs compared to prior CXR, left sided pleural effusion, dx includes edema,hemorrhage, multifocal PNA -CT Chest 04/04/17: Large bilateral pleural effusions, compressive atelectasis and upper lobe infiltrates, cardiomegaly, pericardial effusion-correlate for CHF -ID consult appreciated, Dr. Silver: follow recommendations , d/c'd Zosyn (s/p 10 days tx) -Prednisone 10mg PO QD -CXR 04/12/17: Small left pleural effusion and associated atelectasis or infiltrate, subtle infiltrate at the right lung base HTN -uncontrolled -likely due to worsening renal function, CHF -Cardio consult appreciated Dr. 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 associated with CKD -Asymptomatic, chronic, stable -S/p 2 units of pRBCs on 04/15/17 -H/H 10.3/30.5 (05/08/17) -Continue monitoring of H/H Hx of RUE DVT -RUE DVT detected on 02/04/17 however patient was not a good candidate for usp anticoagulation -RUE duplex 04/20/17: No evidence of vein thrombosis of the RUE with normal venous flow -D-dimer also elevated at admission but of undetermined significance -Continue conservative treatment NSTEMI, resolved -Likely NSTEMI during initial admission which was conservatively managed -Patient has been stable -Continue with ASA 81 mg daily, Plavix 75 mg daily, Coreg 6.25mg PO Q12, Heparin 5,000 units SC BID Diffuse Anasarca, resolved DVT/GI Prophylaxis -SCDs -Heparin 5000 units SC Q12H -Pantoprazole 40mg PO QD
[2017-05-09] MEDS: Nitroglycerin 2% Ointment Foilpak UD TOP SCH ×2 (12:25→17:35)
--- NOTE | 2017-05-09 15:25 | CP.PCM.PN ---
Subjective - Date & Time of Evaluation Date of Evaluation: 05/09/17 Time of Evaluation: 02:30 - Subjective Subjective: Appears comfortable supine No c/o SOB Objective - Vital Signs/Intake and Output Vital Signs (last 24 hours): Temp Pulse Resp BP Pulse Ox 97.9 F 75 20 169/83 H 96 05/09/17 08:07 05/09/17 08:07 05/09/17 08:07 05/09/17 08:07 05/09/17 08:07 - Medications Medications: Current Medications Amlodipine Besylate (Norvasc) 10 mg PO DAILY [facility] Last Admin: 05/09/17 08:33 Dose: 10 mg Aspirin (Aspirin Chewable) 81 mg PO DAILY [facility] Last Admin: 05/09/17 08:34 Dose: 81 mg Atorvastatin Calcium (Lipitor) 20 mg PO HS [facility] Last Admin: 05/08/17 21:26 Dose: 20 mg Bacitracin (Bacitracin) 1 ea TOP TID [facility] Last Admin: 05/09/17 12:15 Dose: Not Given Carvedilol (Coreg) 6.25 mg PO Q12 [facility] Last Admin: 05/09/17 08:38 Dose: 6.25 mg Citalopram Hydrobromide (Celexa) 20 mg PO DAILY [facility] Last Admin: 05/09/17 08:36 Dose: 20 mg Clonidine HCl (Catapres) 0.3 mg PO TID [facility] Last Admin: 05/09/17 12:15 Dose: 0.3 mg Clopidogrel Bisulfate (Plavix) 75 mg PO DAILY [facility] Last Admin: 05/09/17 08:38 Dose: 75 mg Docusate Sodium (Colace) 100 mg PO DAILY [facility] Last Admin: 05/09/17 08:37 Dose: 100 mg Epoetin José Manuel (Procrit) 10,000 unit IV MWF [facility] Last Admin: 05/09/17 06:45 Dose: Not Given Ergocalciferol (Drisdol 50,000 Intl Units Cap) 1 cap PO Q7D [facility] Last Admin: 05/06/17 21:40 Dose: 1 cap Guaifenesin/Dextromethorphan (Robitussin Dm) 10 ml PO Q4 PRN PRN Reason: Cough Last Admin: 04/25/17 16:25 Dose: 10 ml Heparin Sodium (Porcine) (Heparin) 5,000 units SC Q12 [facility] PRN Reason: Protocol Last Admin: 05/09/17 08:34 Dose: 5,000 units Hydralazine HCl (Apresoline) 100 mg PO Q8 [facility] Last Admin: 05/09/17 08:33 Dose: 100 mg Ipratropium [place] (Atrovent) 0.5 mg IH RQ6 PRN PRN Reason: Wheezing Lactulose (Enulose) 20 gm PO BID PRN PRN Reason: Constipation Last Admin: 05/08/17 20:00 Dose: 20 gm Metolazone (Zaroxolyn) 5 mg PO DAILY [facility] Last Admin: 05/09/17 08:34 Dose: 5 mg Nitroglycerin (Nitro-Bid 2% Oint) 1 ea TOP Q6H [facility] Last Admin: 05/09/17 12:25 Dose: Not Given Pantoprazole Sodium (Protonix Ec Tab) 40 mg PO DAILY [facility] Last Admin: 05/09/17 08:33 Dose: 40 mg Prednisone (Prednisone Tab) 10 mg PO DAILY [facility] Last Admin: 05/09/17 08:34 Dose: 10 mg Fluticasone/Salmeterol (Advair Diskus 500/50) 1 puff IH Q12 [facility] Last Admin: 05/09/17 08:32 Dose: 1 puff Sevelamer Carbonate (Renvela) 1.6 gm PO TIDWM [facility] Last Admin: 05/09/17 12:13 Dose: 1.6 gm Spironolactone (Aldactone) 50 mg PO DAILY [facility] Last Admin: 05/09/17 08:38 Dose: 50 mg Torsemide (Demadex) 100 mg PO DAILY [facility] Last Admin: 05/09/17 08:34 Dose: 100 mg Vitamin B Complex/Vit C/Folic Acid (Nephro-Yemi) 1 tab PO DAILY [facility] Last Admin: 05/09/17 08:34 Dose: 1 tab - Labs Labs: 05/08/17 06:30 05/08/17 06:30 APTT 55.3 SECONDS (23.3-32.5) H 04/04/17 04:35 - Respiratory Exam Additional comments: Lungs clear - Cardiovascular Exam Cardiovascular Exam: REGULAR RHYTHM - Extremities Exam Additional comments: Trace pedal edema Assessment and Plan - Assessment and Plan (Free Text) Assessment: ESRD on maintenance HD HTN CHF DM Plan: Had some dialysis yesterday Appears comfortable For dialysis in am
[2017-05-10] MEDS: Nitroglycerin 2% Ointment Foilpak UD TOP SCH (00:06)
[2017-05-10] MEDS: Nitroglycerin 2% 15 INCH/30 GM TUBE TOP SCH ×4 (00:07→19:00)
[2017-05-10 06:57] LABS: HEMOGLOBIN 10.3 g/dL (12.0-18.0); MEAN CELL VOLUME 96.3 fl (80.0-94.0); MEAN CORPUSCULAR HEMOGLOBIN 31.2 pg (27.0-31.0); MEAN CORPUSCULAR HGB CONC 32.4 g/dL (33.0-37.0); RBC 3.3 Mil/uL (4.40-5.90); RED CELL DISTRIBUTION WIDTH 23.3 % (11.5-14.5); WHITE BLOOD COUNT 10.1 K/uL (4.8-10.8)
[2017-05-10 07:14] LABS: CALCIUM 7.4 mg/dL (8.4-10.2)
[2017-05-10 07:21] LABS: INR 0.9 (0.9-1.2); PROTHROMBIN TIME 10.6 Seconds (9.8-13.1)
[2017-05-10] MEDS: Sevelamer Carb 0.8 gm/Packet PO SCH ×2 (08:00→12:00)
--- NOTE | 2017-05-10 08:23 | CP.PCM.PN ---
Subjective - Date & Time of Evaluation Date of Evaluation: 05/10/17 Time of Evaluation: 08:12 - Subjective Subjective: Patient seen and examined at bedside, no acute events overnight. Reports increased edema of bilateral legs and periorbital edema. Patient is aware he is NPO for now pending evaluation of his right chest PERMCath by IR. SOB with exertion persists. Denies chest pain, weakness, dizziness or headache. Objective - Vital Signs/Intake and Output Vital Signs (last 24 hours): Temp Pulse Resp BP Pulse Ox 97.9 F 102 H 20 136/84 98 05/10/17 07:20 05/10/17 07:20 05/10/17 07:20 05/10/17 07:20 05/10/17 07:20 - Medications Medications: Current Medications Amlodipine Besylate (Norvasc) 10 mg PO DAILY [facility] Last Admin: 05/09/17 08:33 Dose: 10 mg Aspirin (Aspirin Chewable) 81 mg PO DAILY [facility] Last Admin: 05/09/17 08:34 Dose: 81 mg Atorvastatin Calcium (Lipitor) 20 mg PO HS [facility] Last Admin: 05/09/17 21:03 Dose: 20 mg Bacitracin (Bacitracin) 1 ea TOP TID [facility] Last Admin: 05/09/17 17:02 Dose: Not Given Carvedilol (Coreg) 6.25 mg PO Q12 [facility] Last Admin: 05/09/17 21:04 Dose: 6.25 mg Citalopram Hydrobromide (Celexa) 20 mg PO DAILY [facility] Last Admin: 05/09/17 08:36 Dose: 20 mg Clonidine HCl (Catapres) 0.3 mg PO TID [facility] Last Admin: 05/09/17 17:02 Dose: 0.3 mg Clopidogrel Bisulfate (Plavix) 75 mg PO DAILY [facility] Last Admin: 05/09/17 08:38 Dose: 75 mg Docusate Sodium (Colace) 100 mg PO DAILY [facility] Last Admin: 05/09/17 08:37 Dose: 100 mg Epoetin José Manuel (Procrit) 10,000 unit IV MWF [facility] Last Admin: 05/09/17 06:45 Dose: Not Given Ergocalciferol (Drisdol 50,000 Intl Units Cap) 1 cap PO Q7D [facility] Last Admin: 05/06/17 21:40 Dose: 1 cap Guaifenesin/Dextromethorphan (Robitussin Dm) 10 ml PO Q4 PRN PRN Reason: Cough Last Admin: 04/25/17 16:25 Dose: 10 ml Heparin Sodium (Porcine) (Heparin) 5,000 units SC Q12 [facility] PRN Reason: Protocol Last Admin: 05/09/17 21:03 Dose: 5,000 units Hydralazine HCl (Apresoline) 100 mg PO Q8 [facility] Last Admin: 05/10/17 00:04 Dose: 100 mg Ipratropium [place] (Atrovent) 0.5 mg IH RQ6 PRN PRN Reason: Wheezing Lactulose (Enulose) 20 gm PO BID PRN PRN Reason: Constipation Last Admin: 05/08/17 20:00 Dose: 20 gm Metolazone (Zaroxolyn) 5 mg PO DAILY [facility] Last Admin: 05/09/17 08:34 Dose: 5 mg Nitroglycerin (Nitro-Bid 2% Oint) 1 inch TOP Q6H [facility] Last Admin: 05/10/17 06:01 Dose: 1 inch Pantoprazole Sodium (Protonix Ec Tab) 40 mg PO DAILY [facility] Last Admin: 05/09/17 08:33 Dose: 40 mg Prednisone (Prednisone Tab) 10 mg PO DAILY [facility] Last Admin: 05/09/17 08:34 Dose: 10 mg Fluticasone/Salmeterol (Advair Diskus 500/50) 1 puff IH Q12 [facility] Last Admin: 05/09/17 21:02 Dose: 1 puff Sevelamer Carbonate (Renvela) 1.6 gm PO TIDWM [facility] Last Admin: 05/09/17 17:01 Dose: 1.6 gm Spironolactone (Aldactone) 50 mg PO DAILY [facility] Last Admin: 05/09/17 08:38 Dose: 50 mg Torsemide (Demadex) 100 mg PO DAILY [facility] Last Admin: 05/09/17 08:34 Dose: 100 mg Vitamin B Complex/Vit C/Folic Acid (Nephro-Yemi) 1 tab PO DAILY [facility] Last Admin: 05/09/17 08:34 Dose: 1 tab - Labs Labs: 05/10/17 05:45 05/10/17 05:45 PT 10.6 Seconds (9.8-13.1) 05/10/17 05:45 INR 0.9 (0.9-1.2) 05/10/17 05:45 APTT 55.3 SECONDS (23.3-32.5) H 04/04/17 04:35 - Constitutional Appears: Non-toxic, No Acute Distress - Head Exam Head Exam: ATRAUMATIC, NORMOCEPHALIC - Eye Exam Eye Exam: Periorbital swelling (bilateral, mild) - ENT Exam ENT Exam: Mucous Membranes Moist - Neck Exam Neck Exam: Full ROM - Respiratory Exam Respiratory Exam: Rhonchi (in bilateral upper lobes, mild), NORMAL BREATHING PATTERN - Cardiovascular Exam Cardiovascular Exam: REGULAR RHYTHM, +S1, +S2 - GI/Abdominal Exam GI & Abdominal Exam: Soft (obese), Tenderness (to palpation in left flank, mild) , Normal Bowel Sounds. 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 He was subsequently admitted for respiratory distress on 04/02/17. Patient found to have Acute on Chronic Kidney Injury and CHF exacerbation. During admission, he was diagnosed with ESRD and has started dialysis 3 times per week. His SOB has improved significantly and SW is working on arranging outpatient hemodialysis. Patient did not tolerate hemodialysis on monday05/08/17 due to bleeding from right PERMCath site 1 hr into HD session, HD was then discontinued. IR was consulted and Dr. Diaz will replace right IJV catheter. Will plan for vascular mapping and subsequent AV fistula as patient needs life long HD. Plan: Bleeding from right IJV catheter during hemodialysis -stable, occurred 1 hr into HD session, not actively bleeding at the moment -Right IJV Non-tunneled HD catheter was placed 04/04/17 -IR consult appreciated: Dr. 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 Miles: patient is not a suitable candidate for invasive cardiac workup, recommend continue with Coreg 6.25mg Q12, Lipitor 20 mg PO QD, (Plavix 75mg QD, Heparin 5,000 units SC BID held for today) -Continue Torsemide 100mg PO daily -Not a good candidate for MAN-i due to impaired renal function -Strict I/Os. Daily weights. -ProBNP: improved to 13,200 -Patient appears to be at a functioning baseline COPD -stable O2 saturation wnl on room air -Likely 2dary to acute CHF Exacerbation vs NSTEMI vs acute on CKD vs multifocal PNA -CXR 04/03/17: multifocal hazy opacities increased bilaterally in lungs compared to prior CXR, left sided pleural effusion, dx includes edema,hemorrhage, multifocal PNA -CT Chest 04/04/17: Large bilateral pleural effusions, compressive atelectasis and upper lobe infiltrates, cardiomegaly, pericardial effusion-correlate for CHF -ID consult appreciated, Dr. Silver: follow recommendations , d/c'd Zosyn (s/p 10 days tx) -Prednisone 10mg PO QD -CXR 04/12/17: Small left pleural effusion and associated atelectasis or infiltrate, subtle infiltrate at the right lung base HTN -uncontrolled -likely due to worsening renal function, CHF -Cardio consult appreciated Dr. 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 associated with CKD -Asymptomatic, chronic, stable -S/p 2 units of pRBCs on 04/15/17 -H/H 10.3/31.5 (05/10/17) -Continue monitoring of H/H Hx of RUE DVT -RUE DVT detected on 02/04/17 however patient was not a good candidate for intermediate frame tender anticoagulation -RUE duplex 04/20/17: No evidence of vein thrombosis of the RUE with normal venous flow -D-dimer also elevated at admission but of undetermined significance -Continue conservative treatment NSTEMI, resolved -Likely NSTEMI during initial admission which was conservatively managed -Patient has been stable -Continue with Coreg 6.25mg PO Q12 -Held for now (ASA 81 mg daily, Plavix 75 mg daily, Heparin 5,000 units SC BID) Diffuse Anasarca, resolved DVT/GI Prophylaxis -SCDs -Held for now: Heparin 5000 units SC Q12H -Pantoprazole 40mg PO QD
[2017-05-10] MEDS: Pantoprazole 40 mg EC Tab PO SCH ×2 (09:00→22:00)
[2017-05-10] MEDS: Bacitracin 500 Units/gm Oint Foilpak UD TOP SCH ×3 (09:00→18:20)
[2017-05-10] MEDS: Fluticasone-Salmeterol 500-50mcg Diskus IH SCH ×2 (09:27→22:02)
--- NOTE | 2017-05-10 10:30 | CP.PCM.PN ---
Subjective - Date & Time of Evaluation Date of Evaluation: 05/10/17 Time of Evaluation: 10:28 - Subjective Subjective: Patient has a problem with the dialysis catheter There was bleeding at the site of the dialysis catheter appeared to be puncture hol perhaps Sodium hemodialysis could not be completed She is going for replacement of permacath so we can continue hemodialysis Patient should go for AV fistula I suggest to call vascular surgeon for AV fistula please Objective - Vital Signs/Intake and Output Vital Signs (last 24 hours): Temp Pulse Resp BP Pulse Ox 97.9 F 102 H 20 136/84 98 05/10/17 07:20 05/10/17 09:29 05/10/17 07:20 05/10/17 09:29 05/10/17 07:20 - Medications Medications: Current Medications Amlodipine Besylate (Norvasc) 10 mg PO DAILY [facility] Last Admin: 05/09/17 08:33 Dose: 10 mg Aspirin (Aspirin Chewable) 81 mg PO DAILY [facility] Last Admin: 05/09/17 08:34 Dose: 81 mg Atorvastatin Calcium (Lipitor) 20 mg PO HS [facility] Last Admin: 05/09/17 21:03 Dose: 20 mg Bacitracin (Bacitracin) 1 ea TOP TID [facility] Last Admin: 05/09/17 17:02 Dose: Not Given Carvedilol (Coreg) 6.25 mg PO Q12 [facility] Last Admin: 05/10/17 09:29 Dose: 6.25 mg Citalopram Hydrobromide (Celexa) 20 mg PO DAILY [facility] Last Admin: 05/09/17 08:36 Dose: 20 mg Clonidine HCl (Catapres) 0.3 mg PO TID [facility] Last Admin: 05/09/17 17:02 Dose: 0.3 mg Clopidogrel Bisulfate (Plavix) 75 mg PO DAILY [facility] Last Admin: 05/09/17 08:38 Dose: 75 mg Docusate Sodium (Colace) 100 mg PO DAILY [facility] Last Admin: 05/09/17 08:37 Dose: 100 mg Epoetin José Manuel (Procrit) 10,000 unit IV MWF [facility] Last Admin: 05/09/17 06:45 Dose: Not Given Ergocalciferol (Drisdol 50,000 Intl Units Cap) 1 cap PO Q7D [facility] Last Admin: 05/06/17 21:40 Dose: 1 cap Guaifenesin/Dextromethorphan (Robitussin Dm) 10 ml PO Q4 PRN PRN Reason: Cough Last Admin: 04/25/17 16:25 Dose: 10 ml Heparin Sodium (Porcine) (Heparin) 5,000 units SC Q12 [facility] PRN Reason: Protocol Last Admin: 05/09/17 21:03 Dose: 5,000 units Hydralazine HCl (Apresoline) 100 mg PO Q8 [facility] Last Admin: 05/10/17 00:04 Dose: 100 mg Ipratropium [place] (Atrovent) 0.5 mg IH RQ6 PRN PRN Reason: Wheezing Lactulose (Enulose) 20 gm PO BID PRN PRN Reason: Constipation Last Admin: 05/08/17 20:00 Dose: 20 gm Metolazone (Zaroxolyn) 5 mg PO DAILY [facility] Last Admin: 05/09/17 08:34 Dose: 5 mg Nitroglycerin (Nitro-Bid 2% Oint) 1 inch TOP Q6H [facility] Last Admin: 05/10/17 06:01 Dose: 1 inch Pantoprazole Sodium (Protonix Ec Tab) 40 mg PO DAILY [facility] Last Admin: 05/09/17 08:33 Dose: 40 mg Prednisone (Prednisone Tab) 10 mg PO DAILY [facility] Last Admin: 05/09/17 08:34 Dose: 10 mg Fluticasone/Salmeterol (Advair Diskus 500/50) 1 puff IH Q12 [facility] Last Admin: 05/10/17 09:27 Dose: 1 puff Sevelamer Carbonate (Renvela) 1.6 gm PO TIDWM [facility] Last Admin: 05/09/17 17:01 Dose: 1.6 gm Spironolactone (Aldactone) 50 mg PO DAILY [facility] Last Admin: 05/09/17 08:38 Dose: 50 mg Torsemide (Demadex) 100 mg PO DAILY [facility] Last Admin: 05/09/17 08:34 Dose: 100 mg Vitamin B Complex/Vit C/Folic Acid (Nephro-Yemi) 1 tab PO DAILY [facility] Last Admin: 05/09/17 08:34 Dose: 1 tab - Labs Labs: 05/10/17 05:45 05/10/17 05:45 PT 10.6 Seconds (9.8-13.1) 05/10/17 05:45 INR 0.9 (0.9-1.2) 05/10/17 05:45 APTT 55.3 SECONDS (23.3-32.5) H 04/04/17 04:35 Assessment and Plan (1) Acute on chronic renal failure Status: Acute (2) Acute systolic congestive heart failure Status: Acute
[2017-05-10] MEDS ORDERED: Lidocaine 1% Inj (20ml) ONE (12:22)
--- NOTE | 2017-05-10 12:46 | PCM.SURG1 ---
Surgeon's Initial Post Op Note - Surgeon's Notes Surgeon: Herb Diaz MD Military Analyst: None Type of Anesthesia: Local Pre-Operative Diagnosis: Renal failure Operative Findings: Right non tunneled HD catheter in SVC. SVC gram showed no fibrin sheeth. Post-Operative Diagnosis: Renal failure Operation Performed: RIght IJV non-tunneled HD catheter change. A new 15 cm HD catheter placed. Specimen/Specimens Removed: Existingh HD catheter. Estimated Blood Loss: EBL {In ML}: 2 Blood Products Given: N/A Drains Used: No Drains Post-Op Condition: Fair Date of Surgery/Procedure: 05/10/17 Time of Surgery/Procedure: 12:40
--- NOTE | 2017-05-10 13:11 | VASCULAR ---
PROCEDURE: Date of procedure: 05/10/2017 Procedure: 1. Superior vena cavagram 2. Exchange of non tunneled right IJ hemodialysis catheter Medications: 6cc 1 percent lidocaine Radiation:1.19 MGy Fluoro time: 2.9 Seconds HISTORY: Renal failure, bleeding from hemodialysis catheter site during dialysis TECHNIQUE: Following informed consent, the patient's right neck and existing catheter were prepped and draped in the usual sterile fashion. Superior vena cavagram was performed through existing non tunneled hemodialysis catheter. The existing Non tunneled hemodialysis catheter was then removed over guidewire and exchanged for a new 15 centimeter hemodialysis catheter. Tip of the catheter is confirmed on x-ray and is in the superior vena cava. The catheter has adequate blood flow for hemodialysis. The catheter was flushed and locked with heparin. The catheter was secured to patient's skin. A dressing was applied. IMPRESSION: Superior vena cavagram showed unremarkable SVC with no fibrin sheath or stenosis. Placement of a new 15 centimeter non tunneled hemodialysis catheter. The catheter is functional ready for use.
--- NOTE | 2017-05-10 13:48 | CP.PCM.PN ---
Subjective - Date & Time of Evaluation Date of Evaluation: 05/10/17 Time of Evaluation: 06:00 - Subjective Subjective: afeb s/p tunneled cath Objective - Vital Signs/Intake and Output Vital Signs (last 24 hours): Temp Pulse Resp BP Pulse Ox 98.4 F 89 18 152/92 H 100 05/10/17 12:15 05/10/17 12:53 05/10/17 12:53 05/10/17 12:53 05/10/17 12:53 - Medications Medications: Current Medications Amlodipine Besylate (Norvasc) 10 mg PO DAILY [facility] Last Admin: 05/09/17 08:33 Dose: 10 mg Aspirin (Aspirin Chewable) 81 mg PO DAILY [facility] Last Admin: 05/09/17 08:34 Dose: 81 mg Atorvastatin Calcium (Lipitor) 20 mg PO HS [facility] Last Admin: 05/09/17 21:03 Dose: 20 mg Bacitracin (Bacitracin) 1 ea TOP TID [facility] Last Admin: 05/09/17 17:02 Dose: Not Given Carvedilol (Coreg) 6.25 mg PO Q12 [facility] Last Admin: 05/10/17 09:29 Dose: 6.25 mg Citalopram Hydrobromide (Celexa) 20 mg PO DAILY [facility] Last Admin: 05/09/17 08:36 Dose: 20 mg Clonidine HCl (Catapres) 0.3 mg PO TID [facility] Last Admin: 05/09/17 17:02 Dose: 0.3 mg Clopidogrel Bisulfate (Plavix) 75 mg PO DAILY [facility] Last Admin: 05/09/17 08:38 Dose: 75 mg Docusate Sodium (Colace) 100 mg PO DAILY [facility] Last Admin: 05/09/17 08:37 Dose: 100 mg Epoetin José Manuel (Procrit) 10,000 unit IV MWF [facility] Last Admin: 05/09/17 06:45 Dose: Not Given Ergocalciferol (Drisdol 50,000 Intl Units Cap) 1 cap PO Q7D [facility] Last Admin: 05/06/17 21:40 Dose: 1 cap Guaifenesin/Dextromethorphan (Robitussin Dm) 10 ml PO Q4 PRN PRN Reason: Cough Last Admin: 04/25/17 16:25 Dose: 10 ml Heparin Sodium (Porcine) (Heparin) 5,000 units SC Q12 [facility] PRN Reason: Protocol Last Admin: 05/09/17 21:03 Dose: 5,000 units Hydralazine HCl (Apresoline) 100 mg PO Q8 [facility] Last Admin: 05/10/17 00:04 Dose: 100 mg Ipratropium [place] (Atrovent) 0.5 mg IH RQ6 PRN PRN Reason: Wheezing Lactulose (Enulose) 20 gm PO BID PRN PRN Reason: Constipation Last Admin: 05/08/17 20:00 Dose: 20 gm Metolazone (Zaroxolyn) 5 mg PO DAILY [facility] Last Admin: 05/09/17 08:34 Dose: 5 mg Nitroglycerin (Nitro-Bid 2% Oint) 1 inch TOP Q6H [facility] Last Admin: 05/10/17 06:01 Dose: 1 inch Pantoprazole Sodium (Protonix Ec Tab) 40 mg PO DAILY [facility] Last Admin: 05/09/17 08:33 Dose: 40 mg Prednisone (Prednisone Tab) 10 mg PO DAILY [facility] Last Admin: 05/09/17 08:34 Dose: 10 mg Fluticasone/Salmeterol (Advair Diskus 500/50) 1 puff IH Q12 [facility] Last Admin: 05/10/17 09:27 Dose: 1 puff Sevelamer Carbonate (Renvela) 1.6 gm PO TIDWM [facility] Last Admin: 05/09/17 17:01 Dose: 1.6 gm Spironolactone (Aldactone) 50 mg PO DAILY [facility] Last Admin: 05/09/17 08:38 Dose: 50 mg Torsemide (Demadex) 100 mg PO DAILY [facility] Last Admin: 05/09/17 08:34 Dose: 100 mg Vitamin B Complex/Vit C/Folic Acid (Nephro-Yemi) 1 tab PO DAILY [facility] Last Admin: 05/09/17 08:34 Dose: 1 tab - Labs Labs: 05/10/17 05:45 05/10/17 05:45 PT 10.6 Seconds (9.8-13.1) 05/10/17 05:45 INR 0.9 (0.9-1.2) 05/10/17 05:45 APTT 55.3 SECONDS (23.3-32.5) H 04/04/17 04:35 - Constitutional Appears: Non-toxic, Cachectic - Head Exam Head Exam: NORMOCEPHALIC - Eye Exam Eye Exam: PERRL. absent: Scleral icterus - ENT Exam ENT Exam: Mucous Membranes Dry - Neck Exam Neck Exam: absent: Lymphadenopathy - Respiratory Exam Respiratory Exam: Decreased Breath Sounds, Rhonchi - Cardiovascular Exam Cardiovascular Exam: REGULAR RHYTHM, +S1, +S2 Assessment and Plan (1) Acute on chronic renal failure Status: Acute (2) Acute systolic congestive heart failure Status: Acute (3) CHF (congestive heart failure) Status: Acute (4) NSTEMI (non-ST elevated myocardial infarction) Status: Acute
[2017-05-10] MEDS: EPOETIN ALFA 10,000 UNIT/ML ML IV SCH (15:50)
[2017-05-10] MEDS: Multivitamin Vitamin B Complex (Nephro-Vite) Tab PO SCH ×2 (16:00→21:55)
[2017-05-10] MEDS: metOLazone 5 MG TAB PO SCH (21:56)
[2017-05-11] MEDS: Nitroglycerin 2% 15 INCH/30 GM TUBE TOP SCH ×4 (00:08→18:45)
[2017-05-11] MEDS: metOLazone 5 MG TAB PO SCH (09:15)
[2017-05-11] MEDS: Multivitamin Vitamin B Complex (Nephro-Vite) Tab PO SCH (09:16)
[2017-05-11] MEDS: Fluticasone-Salmeterol 500-50mcg Diskus IH SCH ×2 (09:16→21:44)
[2017-05-11] MEDS: Sevelamer Carb 0.8 gm/Packet PO SCH ×3 (09:17→17:59)
[2017-05-11] MEDS: Pantoprazole 40 mg EC Tab PO SCH (09:18)
[2017-05-11] MEDS: Bacitracin 500 Units/gm Oint Foilpak UD TOP SCH ×3 (09:20→17:57)
--- NOTE | 2017-05-11 12:51 | CP.PCM.PN ---
Subjective - Date & Time of Evaluation Date of Evaluation: 05/11/17 Time of Evaluation: 09:00 - Subjective Subjective: Patient seen and examined at bedside. Reports he had some discomfort from PERMcath replacement site-(procedure done yesterday). Denies SOB, weakness, dizziness, dysphagia or chest pain. Tolerated hemodialysis well yesterday. Objective - Vital Signs/Intake and Output Vital Signs (last 24 hours): Temp Pulse Resp BP Pulse Ox 98.8 F 77 20 145/78 96 05/11/17 08:06 05/11/17 09:20 05/11/17 08:06 05/11/17 09:20 05/11/17 08:06 - Medications Medications: Current Medications Amlodipine Besylate (Norvasc) 10 mg PO DAILY [facility] Last Admin: 05/11/17 09:19 Dose: 10 mg Aspirin (Aspirin Chewable) 81 mg PO DAILY [facility] Last Admin: 05/11/17 09:20 Dose: 81 mg Atorvastatin Calcium (Lipitor) 20 mg PO HS [facility] Last Admin: 05/10/17 21:59 Dose: 20 mg Bacitracin (Bacitracin) 1 ea TOP TID [facility] Last Admin: 05/11/17 09:20 Dose: 1 ea Carvedilol (Coreg) 6.25 mg PO Q12 [facility] Last Admin: 05/11/17 09:20 Dose: 6.25 mg Citalopram Hydrobromide (Celexa) 20 mg PO DAILY [facility] Last Admin: 05/11/17 09:19 Dose: 20 mg Clonidine HCl (Catapres) 0.3 mg PO TID [facility] Last Admin: 05/11/17 09:18 Dose: 0.3 mg Clopidogrel Bisulfate (Plavix) 75 mg PO DAILY [facility] Last Admin: 05/11/17 09:18 Dose: 75 mg Docusate Sodium (Colace) 100 mg PO DAILY [facility] Last Admin: 05/11/17 09:18 Dose: 100 mg Epoetin José Manuel (Procrit) 10,000 unit IV MWF [facility] Last Admin: 05/10/17 15:50 Dose: 10,000 unit Ergocalciferol (Drisdol 50,000 Intl Units Cap) 1 cap PO Q7D [facility] Last Admin: 05/06/17 21:40 Dose: 1 cap Guaifenesin/Dextromethorphan (Robitussin Dm) 10 ml PO Q4 PRN PRN Reason: Cough Last Admin: 04/25/17 16:25 Dose: 10 ml Heparin Sodium (Porcine) (Heparin) 5,000 units SC Q12 [facility] PRN Reason: Protocol Last Admin: 05/11/17 09:15 Dose: 5,000 units Hydralazine HCl (Apresoline) 100 mg PO Q8 [facility] Last Admin: 05/11/17 09:16 Dose: 100 mg Ipratropium [place] (Atrovent) 0.5 mg IH RQ6 PRN PRN Reason: Wheezing Lactulose (Enulose) 20 gm PO BID PRN PRN Reason: Constipation Last Admin: 05/08/17 20:00 Dose: 20 gm Metolazone (Zaroxolyn) 5 mg PO DAILY [facility] Last Admin: 05/11/17 09:15 Dose: 5 mg Nitroglycerin (Nitro-Bid 2% Oint) 1 inch TOP Q6H [facility] Last Admin: 05/11/17 07:00 Dose: 1 inch Pantoprazole Sodium (Protonix Ec Tab) 40 mg PO DAILY [facility] Last Admin: 05/11/17 09:18 Dose: 40 mg Prednisone (Prednisone Tab) 10 mg PO DAILY [facility] Last Admin: 05/11/17 09:19 Dose: 10 mg Fluticasone/Salmeterol (Advair Diskus 500/50) 1 puff IH Q12 [facility] Last Admin: 05/11/17 09:16 Dose: 1 puff Sevelamer Carbonate (Renvela) 1.6 gm PO TIDWM [facility] Last Admin: 05/11/17 09:17 Dose: 1.6 gm Spironolactone (Aldactone) 50 mg PO DAILY [facility] Last Admin: 05/11/17 09:19 Dose: 50 mg Torsemide (Demadex) 100 mg PO DAILY [facility] Last Admin: 05/11/17 09:16 Dose: 100 mg Vitamin B Complex/Vit C/Folic Acid (Nephro-Yemi) 1 tab PO DAILY [facility] Last Admin: 05/11/17 09:16 Dose: 1 tab - Labs Labs: 05/10/17 05:45 05/10/17 05:45 PT 10.6 Seconds (9.8-13.1) 05/10/17 05:45 INR 0.9 (0.9-1.2) 05/10/17 05:45 APTT 55.3 SECONDS (23.3-32.5) H 04/04/17 04:35 - Constitutional Appears: Non-toxic, No Acute Distress - Head Exam Head Exam: ATRAUMATIC, NORMOCEPHALIC - Eye Exam Eye Exam: EOMI, PERRL - ENT Exam ENT Exam: Mucous Membranes Moist - Neck Exam Neck Exam: Full ROM (small subcutaneous swelling on right neck proximal to permcath insertion site, nontender, non erythematous) - Respiratory Exam Respiratory Exam: Rhonchi (bilateral in lower lobes), NORMAL BREATHING PATTERN - Cardiovascular Exam Cardiovascular Exam: REGULAR RHYTHM, +S1, +S2 - GI/Abdominal Exam GI & Abdominal Exam: Soft (obese), Normal Bowel Sounds. 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 He was subsequently admitted for respiratory distress on 04/02/17. Patient found to have Acute on Chronic Kidney Injury and CHF exacerbation. During admission, he was diagnosed with ESRD and has started dialysis 3 times per week. His SOB has improved significantly and SW is working on arranging outpatient hemodialysis. IR Dr. Diaz -replaced right IJV catheter yesterday due to bleeding from insertion site. Patient tolerated HD yesterday and will have vascular mapping today in preparation for AV fistula as patient needs life long HD. Plan: Bleeding from right IJV catheter during hemodialysis -resolved, -IR consult appreciated: Dr. 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 Miles: patient is not a suitable candidate for invasive cardiac workup, recommend continue with Coreg 6.25mg Q12, Lipitor 20 mg PO QD, Plavix 75mg QD, Heparin 5,000 units SC BID -Continue Torsemide 100mg PO daily -Not a good candidate for MAN-i due to impaired renal function -Strict I/Os. Daily weights. -ProBNP: improved to 13,200 -Patient appears to be at a functioning baseline COPD -stable O2 saturation wnl on room air -Likely 2dary to acute CHF Exacerbation vs NSTEMI vs acute on CKD vs multifocal PNA -CXR 04/03/17: multifocal hazy opacities increased bilaterally in lungs compared to prior CXR, left sided pleural effusion, dx includes edema,hemorrhage, multifocal PNA -CT Chest 04/04/17: Large bilateral pleural effusions, compressive atelectasis and upper lobe infiltrates, cardiomegaly, pericardial effusion-correlate for CHF -ID consult appreciated, Dr. Silver: follow recommendations , d/c'd Zosyn (s/p 10 days tx) -Prednisone 10mg PO QD, Advairgiacomoonebs PRN -CXR 04/12/17: Small left pleural effusion and associated atelectasis or infiltrate, subtle infiltrate at the right lung base HTN -uncontrolled -likely due to worsening renal function, CHF -Cardio consult appreciated Dr. 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 associated with CKD -Asymptomatic, chronic, stable -S/p 2 units of pRBCs on 04/15/17 -H/H 10.3/31.5 (05/10/17) -Continue monitoring of H/H Hx of RUE DVT -RUE DVT detected on 02/04/17 however patient was not a good candidate for intermediate accountant anticoagulation -RUE duplex 04/20/17: No evidence of vein thrombosis of the RUE with normal venous flow -D-dimer also elevated at admission but of undetermined significance -Continue conservative treatment NSTEMI, resolved -Likely NSTEMI during initial admission which was conservatively managed -Patient has been stable -Continue with Coreg 6.25mg PO Q12, ASA 81 mg daily, Plavix 75 mg daily, Heparin 5,000 units SC BID Diffuse Anasarca, resolved DVT/GI Prophylaxis -SCDs -Heparin 5000 units SC Q12H -Pantoprazole 40mg PO QD
[2017-05-12] MEDS: Nitroglycerin 2% 15 INCH/30 GM TUBE TOP SCH ×3 (00:26→12:30)
--- NOTE | 2017-05-12 08:34 | CP.PCM.PN ---
Subjective - Date & Time of Evaluation Date of Evaluation: 05/12/17 Time of Evaluation: 08:00 - Subjective Subjective: Patient seen and examined at bedside. Sitting in bed receiving hemodialysis, reports mild SOB. Denies chest pain, weakness or dizziness. Discomfort from PERMcath site has resolved. Objective - Vital Signs/Intake and Output Vital Signs (last 24 hours): Temp Pulse Resp BP Pulse Ox 98.5 F 67 19 158/82 H 95 05/12/17 00:34 05/12/17 00:34 05/12/17 00:34 05/12/17 00:34 05/12/17 00:34 - Medications Medications: Current Medications Amlodipine Besylate (Norvasc) 10 mg PO DAILY [facility] Last Admin: 05/11/17 09:19 Dose: 10 mg Aspirin (Aspirin Chewable) 81 mg PO DAILY [facility] Last Admin: 05/11/17 09:20 Dose: 81 mg Atorvastatin Calcium (Lipitor) 20 mg PO HS [facility] Last Admin: 05/11/17 22:16 Dose: 20 mg Bacitracin (Bacitracin) 1 ea TOP TID [facility] Last Admin: 05/11/17 17:57 Dose: 1 ea Carvedilol (Coreg) 6.25 mg PO Q12 [facility] Last Admin: 05/11/17 22:15 Dose: 6.25 mg Citalopram Hydrobromide (Celexa) 20 mg PO DAILY [facility] Last Admin: 05/11/17 09:19 Dose: 20 mg Clonidine HCl (Catapres) 0.3 mg PO TID [facility] Last Admin: 05/11/17 17:58 Dose: 0.3 mg Clopidogrel Bisulfate (Plavix) 75 mg PO DAILY [facility] Last Admin: 05/11/17 09:18 Dose: 75 mg Docusate Sodium (Colace) 100 mg PO DAILY [facility] Last Admin: 05/11/17 09:18 Dose: 100 mg Epoetin José Manuel (Procrit) 10,000 unit IV MWF [facility] Last Admin: 05/10/17 15:50 Dose: 10,000 unit Ergocalciferol (Drisdol 50,000 Intl Units Cap) 1 cap PO Q7D [facility] Last Admin: 05/06/17 21:40 Dose: 1 cap Guaifenesin/Dextromethorphan (Robitussin Dm) 10 ml PO Q4 PRN PRN Reason: Cough Last Admin: 04/25/17 16:25 Dose: 10 ml Heparin Sodium (Porcine) (Heparin) 5,000 units SC Q12 [facility] PRN Reason: Protocol Last Admin: 05/11/17 22:16 Dose: 5,000 units Hydralazine HCl (Apresoline) 100 mg PO Q8 [facility] Last Admin: 05/12/17 00:28 Dose: 100 mg Ipratropium [place] (Atrovent) 0.5 mg IH RQ6 PRN PRN Reason: Wheezing Lactulose (Enulose) 20 gm PO BID PRN PRN Reason: Constipation Last Admin: 05/11/17 22:06 Dose: 20 gm Metolazone (Zaroxolyn) 5 mg PO DAILY [facility] Last Admin: 05/11/17 09:15 Dose: 5 mg Nitroglycerin (Nitro-Bid 2% Oint) 1 inch TOP Q6H [facility] Last Admin: 05/12/17 06:48 Dose: 1 inch Pantoprazole Sodium (Protonix Ec Tab) 40 mg PO DAILY [facility] Last Admin: 05/11/17 09:18 Dose: 40 mg Prednisone (Prednisone Tab) 10 mg PO DAILY [facility] Last Admin: 05/11/17 09:19 Dose: 10 mg Fluticasone/Salmeterol (Advair Diskus 500/50) 1 puff IH Q12 [facility] Last Admin: 05/11/17 21:44 Dose: 1 puff Sevelamer Carbonate (Renvela) 1.6 gm PO TIDWM [facility] Last Admin: 05/11/17 17:59 Dose: 1.6 gm Spironolactone (Aldactone) 50 mg PO DAILY [facility] Last Admin: 05/11/17 09:19 Dose: 50 mg Torsemide (Demadex) 100 mg PO DAILY [facility] Last Admin: 05/11/17 09:16 Dose: 100 mg Vitamin B Complex/Vit C/Folic Acid (Nephro-Yemi) 1 tab PO DAILY [facility] Last Admin: 05/11/17 09:16 Dose: 1 tab - Labs Labs: 05/10/17 05:45 05/10/17 05:45 PT 10.6 Seconds (9.8-13.1) 05/10/17 05:45 INR 0.9 (0.9-1.2) 05/10/17 05:45 APTT 55.3 SECONDS (23.3-32.5) H 04/04/17 04:35 - Constitutional Appears: Non-toxic, No Acute Distress - Head Exam Head Exam: ATRAUMATIC, NORMOCEPHALIC - Eye Exam Eye Exam: EOMI, PERRL - ENT Exam ENT Exam: Mucous Membranes Moist - Neck Exam Neck Exam: Full ROM - Respiratory Exam Respiratory Exam: Clear to Ausculation Bilateral, NORMAL BREATHING PATTERN. absent: Chest Wall Tenderness (right upper chest PERMCath, dressing clean/dry/ intact -hemodialysis in process) - Cardiovascular Exam Cardiovascular Exam: REGULAR RHYTHM, +S1, +S2 - GI/Abdominal Exam GI & Abdominal Exam: Soft (obese), Normal Bowel Sounds. 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 He was subsequently admitted for respiratory distress on 04/02/17. Patient found to have Acute on Chronic Kidney Injury and CHF exacerbation. During admission, he was diagnosed with ESRD and has started dialysis 3 times per week. His SOB has improved significantly and SW is working on arranging outpatient hemodialysis. IR Dr. Diaz -replaced right IJV catheter yesterday due to bleeding from insertion site. Patient tolerating HD today and will have vascular mapping in preparation for AV fistula as patient needs life long HD. 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 Miles: patient is not a suitable candidate for invasive cardiac workup, recommend continue with Coreg 6.25mg Q12, Lipitor 20 mg PO QD, Plavix 75mg QD, Heparin 5,000 units SC BID -Continue Torsemide 100mg PO daily -Not a good candidate for MAN-i due to impaired renal function -Strict I/Os. Daily weights. -ProBNP: improved to 13,200 -Patient appears to be at a functioning baseline COPD -stable O2 saturation wnl on room air -Likely 2dary to acute CHF Exacerbation vs NSTEMI vs acute on CKD vs multifocal PNA -CXR 04/03/17: multifocal hazy opacities increased bilaterally in lungs compared to prior CXR, left sided pleural effusion, dx includes edema,hemorrhage, multifocal PNA -CT Chest 04/04/17: Large bilateral pleural effusions, compressive atelectasis and upper lobe infiltrates, cardiomegaly, pericardial effusion-correlate for CHF -ID consult appreciated, Dr. Silver: follow recommendations , d/c'd Zosyn (s/p 10 days tx) -Prednisone 10mg PO QD, Advair, duonebs PRN -CXR 04/12/17: Small left pleural effusion and associated atelectasis or infiltrate, subtle infiltrate at the right lung base HTN -uncontrolled -likely due to worsening renal function, CHF -Cardio consult appreciated Dr. 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 associated with CKD -Asymptomatic, chronic, stable -S/p 2 units of pRBCs on 04/15/17 -H/H 10.3/31.8 (05/10/17) -Continue monitoring of H/H Hx of RUE DVT -RUE DVT detected on 02/04/17 however patient was not a good candidate for director long term care anticoagulation -RUE duplex 04/20/17: No evidence of vein thrombosis of the RUE with normal venous flow -D-dimer also elevated at admission but of undetermined significance -Continue conservative treatment NSTEMI, resolved -Likely NSTEMI during initial admission which was conservatively managed -Patient has been stable -Continue with Coreg 6.25mg PO Q12, ASA 81 mg daily, Plavix 75 mg daily, Heparin 5,000 units SC BID DVT/GI Prophylaxis -SCDs -Heparin 5000 units SC Q12H -Pantoprazole 40mg PO QD
[2017-05-12] MEDS: Fluticasone-Salmeterol 500-50mcg Diskus IH SCH ×2 (08:53→22:36)
[2017-05-12] MEDS: Pantoprazole 40 mg EC Tab PO SCH (08:55)
[2017-05-12] MEDS: metOLazone 5 MG TAB PO SCH ×2 (08:55→09:02)
[2017-05-12] MEDS: Multivitamin Vitamin B Complex (Nephro-Vite) Tab PO SCH (08:55)
[2017-05-12] MEDS: Sevelamer Carb 0.8 gm/Packet PO SCH ×4 (08:56→17:11)
[2017-05-12] MEDS: EPOETIN ALFA 10,000 UNIT/ML ML IV SCH (09:11)
[2017-05-12] MEDS: Bacitracin 500 Units/gm Oint Foilpak UD TOP SCH ×3 (09:31→17:10)
[2017-05-12] MEDS: guaiFENesin DM 200 mg-20 mg/10 ml UD PO PRN (13:33)
[2017-05-13] MEDS: Nitroglycerin 2% Ointment Foilpak UD TOP SCH ×4 (00:33→12:58)
[2017-05-13] MEDS: Fluticasone-Salmeterol 500-50mcg Diskus IH SCH ×2 (09:43→21:11)
[2017-05-13] MEDS: metOLazone 5 MG TAB PO SCH (09:43)
[2017-05-13] MEDS: Multivitamin Vitamin B Complex (Nephro-Vite) Tab PO SCH (09:44)
[2017-05-13] MEDS: Pantoprazole 40 mg EC Tab PO SCH (09:45)
[2017-05-13] MEDS: Sevelamer Carb 0.8 gm/Packet PO SCH ×3 (09:49→17:23)
[2017-05-13] MEDS: Bacitracin 500 Units/gm Oint Foilpak UD TOP SCH ×3 (10:00→17:24)
--- NOTE | 2017-05-13 12:47 | CP.PCM.PN ---
Subjective - Date & Time of Evaluation Date of Evaluation: 05/13/17 Time of Evaluation: 11:30 - Subjective Subjective: Feels better. No SOB Objective - Vital Signs/Intake and Output Vital Signs (last 24 hours): Temp Pulse Resp BP Pulse Ox 97.6 F 77 20 131/75 96 05/13/17 07:24 05/13/17 09:43 05/13/17 07:24 05/13/17 09:43 05/13/17 07:24 - Medications Medications: Current Medications Amlodipine Besylate (Norvasc) 10 mg PO DAILY [facility] Last Admin: 05/13/17 09:43 Dose: 10 mg Aspirin (Aspirin Chewable) 81 mg PO DAILY [facility] Last Admin: 05/13/17 09:47 Dose: 81 mg Atorvastatin Calcium (Lipitor) 20 mg PO HS [facility] Last Admin: 05/12/17 21:36 Dose: 20 mg Bacitracin (Bacitracin) 1 ea TOP TID [facility] Last Admin: 05/13/17 10:00 Dose: Not Given Carvedilol (Coreg) 6.25 mg PO Q12 [facility] Last Admin: 05/13/17 09:46 Dose: 6.25 mg Citalopram Hydrobromide (Celexa) 20 mg PO DAILY [facility] Last Admin: 05/13/17 09:47 Dose: 20 mg Clonidine HCl (Catapres) 0.3 mg PO TID [facility] Last Admin: 05/13/17 09:45 Dose: 0.3 mg Clopidogrel Bisulfate (Plavix) 75 mg PO DAILY [facility] Last Admin: 05/13/17 09:43 Dose: 75 mg Docusate Sodium (Colace) 100 mg PO DAILY [facility] Last Admin: 05/13/17 09:49 Dose: 100 mg Epoetin José Manuel (Procrit) 10,000 unit IV MWF [facility] Last Admin: 05/12/17 09:11 Dose: 10,000 unit Ergocalciferol (Drisdol 50,000 Intl Units Cap) 1 cap PO Q7D [facility] Last Admin: 05/06/17 21:40 Dose: 1 cap Guaifenesin/Dextromethorphan (Robitussin Dm) 10 ml PO Q4 PRN PRN Reason: Cough Last Admin: 05/12/17 13:33 Dose: 10 ml Heparin Sodium (Porcine) (Heparin) 5,000 units SC Q12 [facility] PRN Reason: Protocol Last Admin: 05/13/17 09:44 Dose: 5,000 units Hydralazine HCl (Apresoline) 100 mg PO Q8 [facility] Last Admin: 05/13/17 09:44 Dose: 100 mg Ipratropium [place] (Atrovent) 0.5 mg IH RQ6 PRN PRN Reason: Wheezing Lactulose (Enulose) 20 gm PO BID PRN PRN Reason: Constipation Last Admin: 05/12/17 17:12 Dose: 20 gm Metolazone (Zaroxolyn) 5 mg PO DAILY [facility] Last Admin: 05/13/17 09:43 Dose: 5 mg Nitroglycerin (Nitro-Bid 2% Oint) 1 ea TOP Q6H [facility] Last Admin: 05/13/17 06:24 Dose: 1 ea Pantoprazole Sodium (Protonix Ec Tab) 40 mg PO DAILY [facility] Last Admin: 05/13/17 09:45 Dose: 40 mg Prednisone (Prednisone Tab) 10 mg PO DAILY [facility] Last Admin: 05/13/17 09:48 Dose: 10 mg Fluticasone/Salmeterol (Advair Diskus 500/50) 1 puff IH Q12 [facility] Last Admin: 05/13/17 09:43 Dose: 1 puff Sevelamer Carbonate (Renvela) 1.6 gm PO TIDWM [facility] Last Admin: 05/13/17 09:49 Dose: 1.6 gm Spironolactone (Aldactone) 50 mg PO DAILY [facility] Last Admin: 05/13/17 09:47 Dose: 50 mg Torsemide (Demadex) 100 mg PO DAILY [facility] Last Admin: 05/13/17 09:44 Dose: 100 mg Vitamin B Complex/Vit C/Folic Acid (Nephro-Yemi) 1 tab PO DAILY [facility] Last Admin: 05/13/17 09:44 Dose: 1 tab - Labs Labs: 05/10/17 05:45 05/10/17 05:45 PT 10.6 Seconds (9.8-13.1) 05/10/17 05:45 INR 0.9 (0.9-1.2) 05/10/17 05:45 APTT 55.3 SECONDS (23.3-32.5) H 04/04/17 04:35 - Respiratory Exam Additional comments: Lungs clear - Cardiovascular Exam Cardiovascular Exam: REGULAR RHYTHM - Extremities Exam Additional comments: No edema Assessment and Plan - Assessment and Plan (Free Text) Assessment: ESRD on maintenanc HD CHF compensated HTN Plan: Dialysis tolerated well yesterday Labs stable Continue HD per schedule
[2017-05-13] MEDS ORDERED: Nitroglycerin 2% 15 INCH/30 GM TUBE TOP STA (13:33)
--- NOTE | 2017-05-13 13:41 | CP.PCM.PN ---
Subjective - Date & Time of Evaluation Date of Evaluation: 05/13/17 Time of Evaluation: 08:40 - Subjective Subjective: Patient seen and examined at bedside in no acute distress, no acute events overnight. Reports pain in left lower back and flank area. Denies dizziness, chest pain, n/v or weakness. At time experiences SOB with exertion. Minimal urine output persists. No discomfort from right chest PERMCath site or from RUE PICC line. Objective - Vital Signs/Intake and Output Vital Signs (last 24 hours): Temp Pulse Resp BP Pulse Ox 97.6 F 71 20 115/66 96 05/13/17 07:24 05/13/17 12:58 05/13/17 07:24 05/13/17 12:58 05/13/17 07:24 - Medications Medications: Current Medications Amlodipine Besylate (Norvasc) 10 mg PO DAILY [facility] Last Admin: 05/13/17 09:43 Dose: 10 mg Aspirin (Aspirin Chewable) 81 mg PO DAILY [facility] Last Admin: 05/13/17 09:47 Dose: 81 mg Atorvastatin Calcium (Lipitor) 20 mg PO HS [facility] Last Admin: 05/12/17 21:36 Dose: 20 mg Bacitracin (Bacitracin) 1 ea TOP TID [facility] Last Admin: 05/13/17 12:43 Dose: Not Given Carvedilol (Coreg) 6.25 mg PO Q12 [facility] Last Admin: 05/13/17 09:46 Dose: 6.25 mg Citalopram Hydrobromide (Celexa) 20 mg PO DAILY [facility] Last Admin: 05/13/17 09:47 Dose: 20 mg Clonidine HCl (Catapres) 0.3 mg PO TID [facility] Last Admin: 05/13/17 12:55 Dose: 0.3 mg Clopidogrel Bisulfate (Plavix) 75 mg PO DAILY [facility] Last Admin: 05/13/17 09:43 Dose: 75 mg Docusate Sodium (Colace) 100 mg PO DAILY [facility] Last Admin: 05/13/17 09:49 Dose: 100 mg Epoetin José Manuel (Procrit) 10,000 unit IV MWF [facility] Last Admin: 05/12/17 09:11 Dose: 10,000 unit Ergocalciferol (Drisdol 50,000 Intl Units Cap) 1 cap PO Q7D [facility] Last Admin: 05/06/17 21:40 Dose: 1 cap Guaifenesin/Dextromethorphan (Robitussin Dm) 10 ml PO Q4 PRN PRN Reason: Cough Last Admin: 05/12/17 13:33 Dose: 10 ml Heparin Sodium (Porcine) (Heparin) 5,000 units SC Q12 [facility] PRN Reason: Protocol Last Admin: 05/13/17 09:44 Dose: 5,000 units Hydralazine HCl (Apresoline) 100 mg PO Q8 [facility] Last Admin: 05/13/17 09:44 Dose: 100 mg Ipratropium [place] (Atrovent) 0.5 mg IH RQ6 PRN PRN Reason: Wheezing Lactulose (Enulose) 20 gm PO BID PRN PRN Reason: Constipation Last Admin: 05/12/17 17:12 Dose: 20 gm Lidocaine (Lidoderm) 1 ea TD DAILY [facility] Metolazone (Zaroxolyn) 5 mg PO DAILY [facility] Last Admin: 05/13/17 09:43 Dose: 5 mg Nitroglycerin (Nitro-Bid 2% Oint) 1 inch TOP Q6 [facility] Pantoprazole Sodium (Protonix Ec Tab) 40 mg PO DAILY [facility] Last Admin: 05/13/17 09:45 Dose: 40 mg Prednisone (Prednisone Tab) 10 mg PO DAILY [facility] Last Admin: 05/13/17 09:48 Dose: 10 mg Fluticasone/Salmeterol (Advair Diskus 500/50) 1 puff IH Q12 [facility] Last Admin: 05/13/17 09:43 Dose: 1 puff Sevelamer Carbonate (Renvela) 1.6 gm PO TIDWM [facility] Last Admin: 05/13/17 12:49 Dose: 1.6 gm Spironolactone (Aldactone) 50 mg PO DAILY [facility] Last Admin: 05/13/17 09:47 Dose: 50 mg Torsemide (Demadex) 100 mg PO DAILY [facility] Last Admin: 05/13/17 09:44 Dose: 100 mg Vitamin B Complex/Vit C/Folic Acid (Nephro-Yemi) 1 tab PO DAILY [facility] Last Admin: 05/13/17 09:44 Dose: 1 tab - Labs Labs: 05/10/17 05:45 05/10/17 05:45 PT 10.6 Seconds (9.8-13.1) 05/10/17 05:45 INR 0.9 (0.9-1.2) 05/10/17 05:45 APTT 55.3 SECONDS (23.3-32.5) H 04/04/17 04:35 - Constitutional Appears: Non-toxic, No Acute Distress - Head Exam Head Exam: ATRAUMATIC, NORMOCEPHALIC - Eye Exam Eye Exam: EOMI - ENT Exam ENT Exam: Mucous Membranes Moist - Neck Exam Neck Exam: Full ROM. absent: Lymphadenopathy - Respiratory Exam Respiratory Exam: Clear to Ausculation Bilateral, NORMAL BREATHING PATTERN - Cardiovascular Exam Cardiovascular Exam: REGULAR RHYTHM, +S1, +S2 - GI/Abdominal Exam GI & Abdominal Exam: Soft (obese), Tenderness (mild in left flank area), Normal Bowel Sounds. 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 He was subsequently admitted for respiratory distress on 04/02/17. Patient found to have Acute on Chronic Kidney Injury and CHF exacerbation. During admission, he was diagnosed with ESRD and has started dialysis 3 times per week. His SOB has improved significantly and SW is working on arranging outpatient hemodialysis. IR Dr. Diaz -replaced right IJV catheter 05/10/17 due to bleeding from insertion site. Patient tolerating HD yesterday and will have vascular mapping in preparation for AV fistula as patient needs life long HD. 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 Miles: patient is not a suitable candidate for invasive cardiac workup, recommend continue with Coreg 6.25mg Q12, Lipitor 20 mg PO QD, Plavix 75mg QD, Heparin 5,000 units SC BID -Continue Torsemide 100mg PO daily -Not a good candidate for MAN-i due to impaired renal function -Strict I/Os. Daily weights. -ProBNP: improved to 13,200 -Patient appears to be at a functioning baseline COPD -stable O2 saturation wnl on room air -Likely 2dary to acute CHF Exacerbation vs NSTEMI vs acute on CKD vs multifocal PNA -CXR 04/03/17: multifocal hazy opacities increased bilaterally in lungs compared to prior CXR, left sided pleural effusion, dx includes edema,hemorrhage, multifocal PNA -CT Chest 04/04/17: Large bilateral pleural effusions, compressive atelectasis and upper lobe infiltrates, cardiomegaly, pericardial effusion-correlate for CHF -ID consult appreciated, Dr. Silver: follow recommendations , d/c'd Zosyn (s/p 10 days tx) -Prednisone 10mg PO QD, Advairosbaldo PRN -CXR 04/12/17: Small left pleural effusion and associated atelectasis or infiltrate, subtle infiltrate at the right lung base HTN -uncontrolled -likely due to worsening renal function, CHF -Cardio consult appreciated Dr. 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 associated with CKD -Asymptomatic, chronic, stable -S/p 2 units of pRBCs on 04/15/17 -H/H 10.3/31.8 (05/10/17) -Continue monitoring of H/H (repeat CBC 05/15/17) Hx of RUE DVT -RUE DVT detected on 02/04/17 however patient was not a good candidate for halfway anticoagulation -RUE duplex 6/15/17: No evidence of vein thrombosis of the RUE with normal venous flow -D-dimer also elevated at admission but of undetermined significance -Continue conservative treatment NSTEMI, resolved -Likely NSTEMI during initial admission which was conservatively managed -Patient has been stable -Continue with Coreg 6.25mg PO Q12, ASA 81 mg daily, Plavix 75 mg daily, Heparin 5,000 units SC BID DVT/GI Prophylaxis -SCDs -Heparin 5000 units SC Q12H -Pantoprazole 40mg PO QD
[2017-05-13] MEDS ORDERED: Lidocaine 5% Patch TD SCH (13:45)
[2017-05-13] MEDS: Nitroglycerin 2% 15 INCH/30 GM TUBE TOP SCH ×3 (14:23→21:14)
[2017-05-13] MEDS: Ergocalciferol 50,000 Intl Units Cap PO SCH (18:55)
[2017-05-14] MEDS: Nitroglycerin 2% 15 INCH/30 GM TUBE TOP SCH ×4 (04:07→21:25)
[2017-05-14] MEDS: Fluticasone-Salmeterol 500-50mcg Diskus IH SCH ×2 (08:47→21:16)
[2017-05-14] MEDS: Sevelamer Carb 0.8 gm/Packet PO SCH ×3 (08:48→16:27)
[2017-05-14] MEDS: Pantoprazole 40 mg EC Tab PO SCH (08:48)
[2017-05-14] MEDS: metOLazone 5 MG TAB PO SCH (08:49)
[2017-05-14] MEDS: Multivitamin Vitamin B Complex (Nephro-Vite) Tab PO SCH (08:50)
[2017-05-14] MEDS: Bacitracin 500 Units/gm Oint Foilpak UD TOP SCH ×3 (08:50→16:22)
--- NOTE | 2017-05-14 10:28 | CP.PCM.PN ---
Subjective - Date & Time of Evaluation Date of Evaluation: 05/14/17 Time of Evaluation: 09:30 - Subjective Subjective: Patient seen and examined at bedside. He is laying upright in bed and appears comfortable. He reports that his left sided back discomfort has resolved without need of lidocaine patch. He reports no discomfort or swelling at his right tunneled catheter site. He denies chest pain or SOB and has been able to ambulate without difficulty. Patient further denies fevers, chills, abdominal pain, sob, nausea or vomiting. Objective - Vital Signs/Intake and Output Vital Signs (last 24 hours): Temp Pulse Resp BP Pulse Ox 98.3 F 70 20 153/82 H 96 05/14/17 07:41 05/14/17 08:48 05/14/17 07:41 05/14/17 08:49 05/14/17 07:41 - Medications Medications: Current Medications Amlodipine Besylate (Norvasc) 10 mg PO DAILY [facility] Last Admin: 05/14/17 08:49 Dose: 10 mg Aspirin (Aspirin Chewable) 81 mg PO DAILY [facility] Last Admin: 05/14/17 08:51 Dose: 81 mg Atorvastatin Calcium (Lipitor) 20 mg PO HS [facility] Last Admin: 05/13/17 21:11 Dose: 20 mg Bacitracin (Bacitracin) 1 ea TOP TID [facility] Last Admin: 05/14/17 08:50 Dose: Not Given Carvedilol (Coreg) 6.25 mg PO Q12 [facility] Last Admin: 05/14/17 08:49 Dose: 6.25 mg Citalopram Hydrobromide (Celexa) 20 mg PO DAILY [facility] Last Admin: 05/14/17 08:49 Dose: 20 mg Clonidine HCl (Catapres) 0.3 mg PO TID [facility] Last Admin: 05/14/17 08:49 Dose: 0.3 mg Clopidogrel Bisulfate (Plavix) 75 mg PO DAILY [facility] Last Admin: 05/14/17 08:48 Dose: 75 mg Docusate Sodium (Colace) 100 mg PO DAILY [facility] Last Admin: 05/14/17 08:50 Dose: 100 mg Epoetin José Manuel (Procrit) 10,000 unit IV MWF [facility] Last Admin: 05/12/17 09:11 Dose: 10,000 unit Ergocalciferol (Drisdol 50,000 Intl Units Cap) 1 cap PO Q7D [facility] Last Admin: 05/13/17 18:55 Dose: 1 cap Guaifenesin/Dextromethorphan (Robitussin Dm) 10 ml PO Q4 PRN PRN Reason: Cough Last Admin: 05/12/17 13:33 Dose: 10 ml Heparin Sodium (Porcine) (Heparin) 5,000 units SC Q12 [facility] PRN Reason: Protocol Last Admin: 05/14/17 08:50 Dose: 5,000 units Hydralazine HCl (Apresoline) 100 mg PO Q8 [facility] Last Admin: 05/14/17 09:13 Dose: 100 mg Ipratropium [place] (Atrovent) 0.5 mg IH RQ6 PRN PRN Reason: Wheezing Lactulose (Enulose) 20 gm PO BID PRN PRN Reason: Constipation Last Admin: 05/12/17 17:12 Dose: 20 gm Lidocaine (Lidoderm) 1 ea TD DAILY PRN PRN Reason: Pain, moderate (4-7) Metolazone (Zaroxolyn) 5 mg PO DAILY [facility] Last Admin: 05/14/17 08:49 Dose: 5 mg Nitroglycerin (Nitro-Bid 2% Oint) 1 inch TOP Q6 [facility] Last Admin: 05/14/17 04:07 Dose: 1 inch Pantoprazole Sodium (Protonix Ec Tab) 40 mg PO DAILY [facility] Last Admin: 05/14/17 08:48 Dose: 40 mg Prednisone (Prednisone Tab) 10 mg PO DAILY [facility] Last Admin: 05/14/17 08:49 Dose: 10 mg Fluticasone/Salmeterol (Advair Diskus 500/50) 1 puff IH Q12 [facility] Last Admin: 05/14/17 08:47 Dose: 1 puff Sevelamer Carbonate (Renvela) 1.6 gm PO TIDWM [facility] Last Admin: 05/14/17 08:48 Dose: 1.6 gm Spironolactone (Aldactone) 50 mg PO DAILY [facility] Last Admin: 05/14/17 08:49 Dose: 50 mg Torsemide (Demadex) 100 mg PO DAILY [facility] Last Admin: 05/14/17 08:49 Dose: 100 mg Vitamin B Complex/Vit C/Folic Acid (Nephro-Yemi) 1 tab PO DAILY [facility] Last Admin: 05/14/17 08:50 Dose: 1 tab - Labs Labs: 05/10/17 05:45 05/10/17 05:45 PT 10.6 Seconds (9.8-13.1) 05/10/17 05:45 INR 0.9 (0.9-1.2) 05/10/17 05:45 APTT 55.3 SECONDS (23.3-32.5) H 04/04/17 04:35 - Constitutional Appears: Non-toxic, No Acute Distress - Head Exam Head Exam: ATRAUMATIC, NORMAL INSPECTION, NORMOCEPHALIC - Eye Exam Eye Exam: EOMI, PERRL - ENT Exam ENT Exam: Mucous Membranes Moist - Neck Exam Neck Exam: absent: Tenderness Additional comments: Tunnelled catheter site clean, dry, with no active bleeding or drainage. - Respiratory Exam Respiratory Exam: Rhonchi (Faint rhonchii appreciated b/l), NORMAL BREATHING PATTERN. absent: Wheezes, Respiratory Distress - Cardiovascular Exam Cardiovascular Exam: REGULAR RHYTHM, RRR, +S1, +S2 - GI/Abdominal Exam GI & Abdominal Exam: Soft, Normal Bowel Sounds. absent: Distended, Tenderness - Extremities Exam Extremities Exam: Pedal Edema (1+). 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 He was subsequently admitted for respiratory distress on 04/02/17. Patient found to have Acute on Chronic Kidney Injury and CHF exacerbation. During admission, he was diagnosed with ESRD and has started dialysis 3 times per week. His SOB has improved significantly and SW is working on arranging outpatient hemodialysis. IR Dr. Diaz -replaced right IJV catheter 05/10/17 due to bleeding from insertion site. Patient is pending vascular mapping in preparation for AV fistula as patient needs life long HD. 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 Miles: patient is not a suitable candidate for invasive cardiac workup, recommend continue with Coreg 6.25mg Q12, Lipitor 20 mg PO QD, Plavix 75mg QD, Heparin 5,000 units SC BID -Continue Torsemide 100mg PO daily -Not a good candidate for MAN-i due to impaired renal function -Strict I/Os. Daily weights. -ProBNP: improved to 13,200 -Patient appears to be at a functioning baseline COPD -stable O2 saturation wnl on room air -Likely 2dary to acute CHF Exacerbation vs NSTEMI vs acute on CKD vs multifocal PNA -CXR 04/03/17: multifocal hazy opacities increased bilaterally in lungs compared to prior CXR, left sided pleural effusion, dx includes edema,hemorrhage, multifocal PNA -CT Chest 04/04/17: Large bilateral pleural effusions, compressive atelectasis and upper lobe infiltrates, cardiomegaly, pericardial effusion-correlate for CHF -ID consult appreciated, Dr. Silver: follow recommendations , d/c'd Zosyn (s/p 10 days tx) -Prednisone 10mg PO QD, Advair, duonebs PRN -CXR 04/12/17: Small left pleural effusion and associated atelectasis or infiltrate, subtle infiltrate at the right lung base HTN -uncontrolled -likely due to worsening renal function, CHF -Cardio consult appreciated Dr. 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 associated with CKD -Asymptomatic, chronic, stable -S/p 2 units of pRBCs on 04/15/17 -H/H 10.3/31.8 (05/10/17) -Follow H/H tomorrow Hx of RUE DVT -RUE DVT detected on 02/04/17 however patient was not a good candidate for terminal carman anticoagulation -RUE duplex 04/20/17: No evidence of vein thrombosis of the RUE with normal venous flow -D-dimer also elevated at admission but of undetermined significance -Continue conservative treatment Left lower back pain, likely secondary to muscle strain -Resolved with Tylenol 650mg PO once -Lidoderm patch PRN NSTEMI, resolved -Likely NSTEMI during initial admission which was conservatively managed -Patient has been stable -Continue with Coreg 6.25mg PO Q12, ASA 81 mg daily, Plavix 75 mg daily, Heparin 5,000 units SC BID DVT/GI Prophylaxis -SCDs -Heparin 5000 units SC Q12H -Pantoprazole 40mg PO QD
--- NOTE | 2017-05-14 13:15 | CP.PCM.PN ---
Subjective - Date & Time of Evaluation Date of Evaluation: 05/14/17 Time of Evaluation: 10:00 - Subjective Subjective: Comfortable supine Objective - Vital Signs/Intake and Output Vital Signs (last 24 hours): Temp Pulse Resp BP Pulse Ox 98.3 F 64 20 135/64 96 05/14/17 07:41 05/14/17 12:21 05/14/17 07:41 05/14/17 12:21 05/14/17 07:41 - Medications Medications: Current Medications Amlodipine Besylate (Norvasc) 10 mg PO DAILY [facility] Last Admin: 05/14/17 08:49 Dose: 10 mg Aspirin (Aspirin Chewable) 81 mg PO DAILY [facility] Last Admin: 05/14/17 08:51 Dose: 81 mg Atorvastatin Calcium (Lipitor) 20 mg PO HS [facility] Last Admin: 05/13/17 21:11 Dose: 20 mg Bacitracin (Bacitracin) 1 ea TOP TID [facility] Last Admin: 05/14/17 12:13 Dose: Not Given Carvedilol (Coreg) 6.25 mg PO Q12 [facility] Last Admin: 05/14/17 08:49 Dose: 6.25 mg Citalopram Hydrobromide (Celexa) 20 mg PO DAILY [facility] Last Admin: 05/14/17 08:49 Dose: 20 mg Clonidine HCl (Catapres) 0.3 mg PO TID [facility] Last Admin: 05/14/17 12:21 Dose: 0.3 mg Clopidogrel Bisulfate (Plavix) 75 mg PO DAILY [facility] Last Admin: 05/14/17 08:48 Dose: 75 mg Docusate Sodium (Colace) 100 mg PO DAILY [facility] Last Admin: 05/14/17 08:50 Dose: 100 mg Epoetin José Manuel (Procrit) 10,000 unit IV MWF [facility] Last Admin: 05/12/17 09:11 Dose: 10,000 unit Ergocalciferol (Drisdol 50,000 Intl Units Cap) 1 cap PO Q7D [facility] Last Admin: 05/13/17 18:55 Dose: 1 cap Guaifenesin/Dextromethorphan (Robitussin Dm) 10 ml PO Q4 PRN PRN Reason: Cough Last Admin: 05/12/17 13:33 Dose: 10 ml Heparin Sodium (Porcine) (Heparin) 5,000 units SC Q12 [facility] PRN Reason: Protocol Last Admin: 05/14/17 08:50 Dose: 5,000 units Hydralazine HCl (Apresoline) 100 mg PO Q8 [facility] Last Admin: 05/14/17 09:13 Dose: 100 mg Ipratropium [place] (Atrovent) 0.5 mg IH RQ6 PRN PRN Reason: Wheezing Lactulose (Enulose) 20 gm PO BID PRN PRN Reason: Constipation Last Admin: 05/12/17 17:12 Dose: 20 gm Lidocaine (Lidoderm) 1 ea TD DAILY PRN PRN Reason: Pain, moderate (4-7) Metolazone (Zaroxolyn) 5 mg PO DAILY [facility] Last Admin: 05/14/17 08:49 Dose: 5 mg Nitroglycerin (Nitro-Bid 2% Oint) 1 inch TOP Q6 [facility] Last Admin: 05/14/17 11:06 Dose: 1 inch Pantoprazole Sodium (Protonix Ec Tab) 40 mg PO DAILY [facility] Last Admin: 05/14/17 08:48 Dose: 40 mg Prednisone (Prednisone Tab) 10 mg PO DAILY [facility] Last Admin: 05/14/17 08:49 Dose: 10 mg Fluticasone/Salmeterol (Advair Diskus 500/50) 1 puff IH Q12 [facility] Last Admin: 05/14/17 08:47 Dose: 1 puff Sevelamer Carbonate (Renvela) 1.6 gm PO TIDWM [facility] Last Admin: 05/14/17 12:22 Dose: 1.6 gm Spironolactone (Aldactone) 50 mg PO DAILY [facility] Last Admin: 05/14/17 08:49 Dose: 50 mg Torsemide (Demadex) 100 mg PO DAILY [facility] Last Admin: 05/14/17 08:49 Dose: 100 mg Vitamin B Complex/Vit C/Folic Acid (Nephro-Yemi) 1 tab PO DAILY [facility] Last Admin: 05/14/17 08:50 Dose: 1 tab - Labs Labs: 05/10/17 05:45 05/10/17 05:45 PT 10.6 Seconds (9.8-13.1) 05/10/17 05:45 INR 0.9 (0.9-1.2) 05/10/17 05:45 APTT 55.3 SECONDS (23.3-32.5) H 04/04/17 04:35 - Respiratory Exam Additional comments: Lungs clear - Cardiovascular Exam Cardiovascular Exam: REGULAR RHYTHM - Extremities Exam Additional comments: No edema Assessment and Plan - Assessment and Plan (Free Text) Assessment: ESRD HTN CHF Plan: Stable on dialysis. Continue HD per schedule
[2017-05-15] MEDS: Nitroglycerin 2% 15 INCH/30 GM TUBE TOP SCH ×4 (04:34→22:05)
[2017-05-15 07:03] LABS: HEMOGLOBIN 9.5 g/dL (12.0-18.0); MEAN CELL VOLUME 96.1 fl (80.0-94.0); MEAN CORPUSCULAR HEMOGLOBIN 31.9 pg (27.0-31.0); MEAN CORPUSCULAR HGB CONC 33.2 g/dL (33.0-37.0); RBC 2.98 Mil/uL (4.40-5.90); RED CELL DISTRIBUTION WIDTH 22.9 % (11.5-14.5); WHITE BLOOD COUNT 8.9 K/uL (4.8-10.8)
[2017-05-15 08:11] LABS: CALCIUM 8.2 mg/dL (8.4-10.2)
[2017-05-15] MEDS: Bacitracin 500 Units/gm Oint Foilpak UD TOP SCH ×4 (09:00→17:45)
[2017-05-15] MEDS: Sevelamer Carb 0.8 gm/Packet PO SCH ×4 (09:07→17:46)
[2017-05-15] MEDS: Fluticasone-Salmeterol 500-50mcg Diskus IH SCH ×2 (09:52→21:57)
[2017-05-15] MEDS: Multivitamin Vitamin B Complex (Nephro-Vite) Tab PO SCH (10:05)
[2017-05-15] MEDS: Pantoprazole 40 mg EC Tab PO SCH (10:07)
[2017-05-15] MEDS: metOLazone 5 MG TAB PO SCH (10:07)
--- NOTE | 2017-05-15 12:17 | CP.PCM.PN ---
Subjective - Date & Time of Evaluation Date of Evaluation: 05/15/17 Time of Evaluation: 08:30 - Subjective Subjective: Patient seen and examined at bedside, no acute events overnight. Denies SOB, chest pain, weakness or dizziness. Remains with poor urine output. Tolerating po diet. Patient is aware he is scheduled for hemodialysis today. Objective - Vital Signs/Intake and Output Vital Signs (last 24 hours): Temp Pulse Resp BP Pulse Ox 98 F 96 H 20 150/84 94 L 05/15/17 09:00 05/15/17 10:06 05/15/17 09:00 05/15/17 10:06 05/15/17 09:00 - Medications Medications: Current Medications Amlodipine Besylate (Norvasc) 10 mg PO DAILY [facility] Last Admin: 05/15/17 10:06 Dose: 10 mg Aspirin (Aspirin Chewable) 81 mg PO DAILY [facility] Last Admin: 05/15/17 10:01 Dose: 81 mg Atorvastatin Calcium (Lipitor) 20 mg PO HS [facility] Last Admin: 05/14/17 21:18 Dose: 20 mg Bacitracin (Bacitracin) 1 ea TOP TID [facility] Last Admin: 05/14/17 16:22 Dose: Not Given Carvedilol (Coreg) 6.25 mg PO Q12 [facility] Last Admin: 05/15/17 10:03 Dose: 6.25 mg Citalopram Hydrobromide (Celexa) 20 mg PO DAILY [facility] Last Admin: 05/15/17 10:02 Dose: 20 mg Clonidine HCl (Catapres) 0.3 mg PO TID [facility] Last Admin: 05/15/17 10:02 Dose: 0.3 mg Clopidogrel Bisulfate (Plavix) 75 mg PO DAILY [facility] Last Admin: 05/15/17 10:06 Dose: 75 mg Docusate Sodium (Colace) 100 mg PO DAILY [facility] Last Admin: 05/15/17 10:03 Dose: 100 mg Epoetin José [place] (Procrit) 10,000 unit IV MWF [facility] Last Admin: 05/12/17 09:11 Dose: 10,000 unit Ergocalciferol (Drisdol 50,000 Intl Units Cap) 1 cap PO Q7D [facility] Last Admin: 05/13/17 18:55 Dose: 1 cap Guaifenesin/Dextromethorphan (Robitussin Dm) 10 ml PO Q4 PRN PRN Reason: Cough Last Admin: 05/12/17 13:33 Dose: 10 ml Heparin Sodium (Porcine) (Heparin) 5,000 units SC Q12 [facility] PRN Reason: Protocol Last Admin: 05/15/17 10:04 Dose: 5,000 units Hydralazine HCl (Apresoline) 100 mg PO Q8 [facility] Last Admin: 05/15/17 09:53 Dose: 100 mg Ipratropium [place] (Atrovent) 0.5 mg IH RQ6 PRN PRN Reason: Wheezing Lactulose (Enulose) 20 gm PO BID PRN PRN Reason: Constipation Last Admin: 05/12/17 17:12 Dose: 20 gm Lidocaine (Lidoderm) 1 ea TD DAILY PRN PRN Reason: Pain, moderate (4-7) Metolazone (Zaroxolyn) 5 mg PO DAILY [facility] Last Admin: 05/15/17 10:07 Dose: 5 mg Nitroglycerin (Nitro-Bid 2% Oint) 1 inch TOP Q6 [facility] Last Admin: 05/15/17 10:05 Dose: 1 inch Pantoprazole Sodium (Protonix Ec Tab) 40 mg PO DAILY [facility] Last Admin: 05/15/17 10:07 Dose: 40 mg Prednisone (Prednisone Tab) 10 mg PO DAILY [facility] Last Admin: 05/15/17 10:08 Dose: 10 mg Fluticasone/Salmeterol (Advair Diskus 500/50) 1 puff IH Q12 [facility] Last Admin: 05/15/17 09:52 Dose: 1 puff Sevelamer Carbonate (Renvela) 1.6 gm PO TIDWM [facility] Last Admin: 05/15/17 10:07 Dose: 1.6 gm Spironolactone (Aldactone) 50 mg PO DAILY [facility] Last Admin: 05/15/17 09:53 Dose: 50 mg Torsemide (Demadex) 100 mg PO DAILY [facility] Last Admin: 05/15/17 10:04 Dose: 100 mg Vitamin B Complex/Vit C/Folic Acid (Nephro-Yemi) 1 tab PO DAILY [facility] Last Admin: 05/15/17 10:05 Dose: 1 tab - Labs Labs: 05/15/17 06:15 05/15/17 06:15 PT 10.6 Seconds (9.8-13.1) 05/10/17 05:45 INR 0.9 (0.9-1.2) 05/10/17 05:45 APTT 55.3 SECONDS (23.3-32.5) H 04/04/17 04:35 - Constitutional Appears: Non-toxic, No Acute Distress - Head Exam Head Exam: ATRAUMATIC, NORMOCEPHALIC - Eye Exam Eye Exam: EOMI, PERRL - ENT Exam ENT Exam: Mucous Membranes Moist - Neck Exam Neck Exam: Full ROM. absent: Lymphadenopathy - Respiratory Exam Respiratory Exam: Clear to Ausculation Bilateral. absent: Rhonchi - Cardiovascular Exam Cardiovascular Exam: REGULAR RHYTHM, +S1, +S2 - GI/Abdominal Exam GI & Abdominal Exam: Soft (obese), Normal Bowel Sounds. absent: Distended, Tenderness - Extremities Exam Extremities Exam: Full ROM (RUE PICC line intact/patent, right chest PERMcath intact/patent), Pedal Edema (+ 1 up to knees with stasis dermatitis). 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 He was subsequently admitted for respiratory distress on 04/02/17. Patient found to have Acute on Chronic Kidney Injury and CHF exacerbation. During admission, he was diagnosed with ESRD and has started dialysis 3 times per week. His SOB has improved significantly and SW is working on arranging outpatient hemodialysis. IR Dr. Diaz -replaced right IJV catheter 05/10/17 due to bleeding from insertion site. Patient is pending vascular mapping this week in preparation for AV fistula as patient needs life long HD. Patient is scheduled for hemodialysis today. 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 Miles: patient is not a suitable candidate for invasive cardiac workup, recommend continue with Coreg 6.25mg Q12, Lipitor 20 mg PO QD, Plavix 75mg QD, Heparin 5,000 units SC BID -Continue Torsemide 100mg PO daily -Not a good candidate for MAN-i due to impaired renal function -Strict I/Os. Daily weights. -ProBNP: improved to 13,200 -Patient appears to be at a functioning baseline COPD -stable O2 saturation wnl on room air -Likely 2dary to acute CHF Exacerbation vs NSTEMI vs acute on CKD vs multifocal PNA -CXR 04/03/17: multifocal hazy opacities increased bilaterally in lungs compared to prior CXR, left sided pleural effusion, dx includes edema,hemorrhage, multifocal PNA -CT Chest 04/04/17: Large bilateral pleural effusions, compressive atelectasis and upper lobe infiltrates, cardiomegaly, pericardial effusion-correlate for CHF -ID consult appreciated, Dr. Silver: follow recommendations , d/c'd Zosyn (s/p 10 days tx) -Prednisone 10mg PO QD, Advair, duonebs PRN -CXR 04/12/17: Small left pleural effusion and associated atelectasis or infiltrate, subtle infiltrate at the right lung base HTN -controlled -Cardio consult appreciated Dr. 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 associated with CKD -Asymptomatic, chronic, stable -S/p 2 units of pRBCs on 04/15/17 -H/H 9.5/28.6 -continue to monitor H/H Hx of RUE DVT -RUE DVT detected on 02/04/17 however patient was not a good candidate for long-term anticoagulation -RUE duplex 04/20/17: No evidence of vein thrombosis of the RUE with normal venous flow -D-dimer also elevated at admission but of undetermined significance -Continue conservative treatment Left lower back pain, likely secondary to muscle strain -Resolved with Tylenol 650mg PO once -Lidoderm patch PRN NSTEMI, resolved -Likely NSTEMI during initial admission which was conservatively managed -Patient has been stable -Continue with Coreg 6.25mg PO Q12, ASA 81 mg daily, Plavix 75 mg daily, Heparin 5,000 units SC BID DVT/GI Prophylaxis -SCDs -Heparin 5000 units SC Q12H -Pantoprazole 40mg PO QD
[2017-05-15] MEDS: EPOETIN ALFA 10,000 UNIT/ML ML IV SCH (15:48)
[2017-05-16] MEDS: Nitroglycerin 2% 15 INCH/30 GM TUBE TOP SCH ×4 (05:02→22:14)
--- NOTE | 2017-05-16 06:41 | CP.PCM.PN ---
Subjective - Date & Time of Evaluation Date of Evaluation: 05/16/17 Time of Evaluation: 07:55 - Subjective Subjective: Patient seen and examined at bedside, no acute events overnight. In no acute distress. Denies SOB, weakness, dizziness or chest pain. Tolerating PO diet, ambulating without difficulty, minimal urine output persists. Objective - Vital Signs/Intake and Output Vital Signs (last 24 hours): Temp Pulse Resp BP Pulse Ox 98.4 F 105 H 20 144/84 94 L 05/16/17 01:00 05/16/17 01:43 05/16/17 01:00 05/16/17 01:43 05/16/17 01:00 - Medications Medications: Current Medications Amlodipine Besylate (Norvasc) 10 mg PO DAILY [facility] Last Admin: 05/15/17 10:06 Dose: 10 mg Aspirin (Aspirin Chewable) 81 mg PO DAILY [facility] Last Admin: 05/15/17 10:01 Dose: 81 mg Atorvastatin Calcium (Lipitor) 20 mg PO HS [facility] Last Admin: 05/15/17 22:04 Dose: 20 mg Bacitracin (Bacitracin) 1 ea TOP TID [facility] Last Admin: 05/15/17 17:45 Dose: Not Given Carvedilol (Coreg) 6.25 mg PO Q12 [facility] Last Admin: 05/15/17 21:57 Dose: 6.25 mg Citalopram Hydrobromide (Celexa) 20 mg PO DAILY [facility] Last Admin: 05/15/17 10:02 Dose: 20 mg Clonidine HCl (Catapres) 0.3 mg PO TID [facility] Last Admin: 05/15/17 17:45 Dose: Not Given Clopidogrel Bisulfate (Plavix) 75 mg PO DAILY [facility] Last Admin: 05/15/17 10:06 Dose: 75 mg Docusate Sodium (Colace) 100 mg PO DAILY [facility] Last Admin: 05/15/17 10:03 Dose: 100 mg Epoetin José Manuel (Procrit) 10,000 unit IV MWF [facility] Last Admin: 05/15/17 15:48 Dose: 10,000 unit Ergocalciferol (Drisdol 50,000 Intl Units Cap) 1 cap PO Q7D [facility] Last Admin: 05/13/17 18:55 Dose: 1 cap Guaifenesin/Dextromethorphan (Robitussin Dm) 10 ml PO Q4 PRN PRN Reason: Cough Last Admin: 05/12/17 13:33 Dose: 10 ml Heparin Sodium (Porcine) (Heparin) 5,000 units SC Q12 [facility] PRN Reason: Protocol Last Admin: 05/15/17 22:01 Dose: 5,000 units Hydralazine HCl (Apresoline) 100 mg PO Q8 [facility] Last Admin: 05/16/17 01:43 Dose: 100 mg Ipratropium [place] (Atrovent) 0.5 mg IH RQ6 PRN PRN Reason: Wheezing Lactulose (Enulose) 20 gm PO BID PRN PRN Reason: Constipation Last Admin: 05/16/17 05:04 Dose: 20 gm Lidocaine (Lidoderm) 1 ea TD DAILY PRN PRN Reason: Pain, moderate (4-7) Metolazone (Zaroxolyn) 5 mg PO DAILY [facility] Last Admin: 05/15/17 10:07 Dose: 5 mg Nitroglycerin (Nitro-Bid 2% Oint) 1 inch TOP Q6 [facility] Last Admin: 05/16/17 05:02 Dose: 1 inch Pantoprazole Sodium (Protonix Ec Tab) 40 mg PO DAILY [facility] Last Admin: 05/15/17 10:07 Dose: 40 mg Prednisone (Prednisone Tab) 10 mg PO DAILY [facility] Last Admin: 05/15/17 10:08 Dose: 10 mg Fluticasone/Salmeterol (Advair Diskus 500/50) 1 puff IH Q12 [facility] Last Admin: 05/15/17 21:57 Dose: 1 puff Sevelamer Carbonate (Renvela) 1.6 gm PO TIDWM [facility] Last Admin: 05/15/17 17:46 Dose: 1.6 gm Spironolactone (Aldactone) 50 mg PO DAILY [facility] Last Admin: 05/15/17 09:53 Dose: 50 mg Torsemide (Demadex) 100 mg PO DAILY [facility] Last Admin: 05/15/17 10:04 Dose: 100 mg Vitamin B Complex/Vit C/Folic Acid (Nephro-Yemi) 1 tab PO DAILY [facility] Last Admin: 05/15/17 10:05 Dose: 1 tab - Labs Labs: 05/15/17 06:15 05/15/17 06:15 PT 10.6 Seconds (9.8-13.1) 05/10/17 05:45 INR 0.9 (0.9-1.2) 05/10/17 05:45 APTT 55.3 SECONDS (23.3-32.5) H 04/04/17 04:35 - Constitutional Appears: Non-toxic, No Acute Distress - Head Exam Head Exam: ATRAUMATIC, NORMOCEPHALIC - Eye Exam Eye Exam: EOMI, PERRL - ENT Exam ENT Exam: Mucous Membranes Moist - Neck Exam Neck Exam: Full ROM. absent: Lymphadenopathy - Respiratory Exam Respiratory Exam: Clear to Ausculation Bilateral, NORMAL BREATHING PATTERN - Cardiovascular Exam Cardiovascular Exam: REGULAR RHYTHM, +S1, +S2 - GI/Abdominal Exam GI & Abdominal Exam: Soft (obese), Normal Bowel Sounds. 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 He was subsequently admitted for respiratory distress on 04/02/17. Patient found to have Acute on Chronic Kidney Injury and CHF exacerbation. During admission, he was diagnosed with ESRD and has started dialysis 3 times per week. His SOB has improved significantly and SW is working on arranging outpatient hemodialysis. Patient is pending vascular mapping this week in preparation for AV fistula as patient needs life long HD. Patient tolerated hemodialysis well yesterday, patient is due for 4th cytoxan treatment. 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 Miles: patient is not a suitable candidate for invasive cardiac workup, recommend continue with Coreg 6.25mg Q12, Lipitor 20 mg PO QD, Plavix 75mg QD, Heparin 5,000 units SC BID -Continue Torsemide 100mg PO daily -Not a good candidate for MAN-i due to impaired renal function -Strict I/Os. Daily weights. -ProBNP: improved to 13,200 -Patient appears to be at a functioning baseline COPD -stable O2 saturation wnl on room air -Likely 2dary to acute CHF Exacerbation vs NSTEMI vs acute on CKD vs multifocal PNA -CXR 04/03/17: multifocal hazy opacities increased bilaterally in lungs compared to prior CXR, left sided pleural effusion, dx includes edema,hemorrhage, multifocal PNA -CT Chest 04/04/17: Large bilateral pleural effusions, compressive atelectasis and upper lobe infiltrates, cardiomegaly, pericardial effusion-correlate for CHF -ID consult appreciated, Dr. Silver: follow recommendations , d/c'd Zosyn (s/p 10 days tx) -Prednisone 10mg PO QD, Advairsharynbs PRN -CXR 04/12/17: Small left pleural effusion and associated atelectasis or infiltrate, subtle infiltrate at the right lung base HTN -controlled -Cardio consult appreciated Dr. 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 associated with CKD -Asymptomatic, chronic, stable -S/p 2 units of pRBCs on 04/15/17 -H/H 9.5/28.6 (05/15/17) -continue to monitor H/H Hx of RUE DVT -RUE DVT detected on 02/04/17 however patient was not a good candidate for terminal manager anticoagulation -RUE duplex 04/20/17: No evidence of vein thrombosis of the RUE with normal venous flow -D-dimer also elevated at admission but of undetermined significance -Continue conservative treatment Left lower back pain, likely secondary to muscle strain -Resolved with Tylenol 650mg PO once -Lidoderm patch PRN NSTEMI, resolved -Likely NSTEMI during initial admission which was conservatively managed -Patient has been stable -Continue with Coreg 6.25mg PO Q12, ASA 81 mg daily, Plavix 75 mg daily, Heparin 5,000 units SC BID DVT/GI Prophylaxis -SCDs -Heparin 5000 units SC Q12H -Pantoprazole 40mg PO QD
[2017-05-16] MEDS: Sevelamer Carb 0.8 gm/Packet PO SCH ×3 (09:01→16:54)
[2017-05-16] MEDS: Pantoprazole 40 mg EC Tab PO SCH (09:01)
[2017-05-16] MEDS: Multivitamin Vitamin B Complex (Nephro-Vite) Tab PO SCH (09:02)
[2017-05-16] MEDS: metOLazone 5 MG TAB PO SCH (09:02)
[2017-05-16] MEDS ORDERED: Dexamethasone 10 MG in Sodium Chloride 0.9% 50 ML IVPB ONE (09:15)
[2017-05-16] MEDS: Bacitracin 500 Units/gm Oint Foilpak UD TOP SCH ×3 (09:18→16:52)
[2017-05-16] MEDS: Fluticasone-Salmeterol 500-50mcg Diskus IH SCH ×2 (09:19→21:04)
--- NOTE | 2017-05-16 09:46 | CP.PCM.PN ---
Subjective - Date & Time of Evaluation Date of Evaluation: 05/16/17 Time of Evaluation: 09:42 - Subjective Subjective: Patient is doing much better appetite is good Completed hemodialysis yesterday Vital signs stable with controlled blood pressure Physical exam Chest no rales Heart no rubs Abdomen soft Extremity no edema The lab reviewed The impression and plan vasculitis with ANCA neg. 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 Objective - Vital Signs/Intake and Output Vital Signs (last 24 hours): Temp Pulse Resp BP Pulse Ox 98.3 F 74 20 139/72 95 05/16/17 08:08 05/16/17 09:04 05/16/17 08:08 05/16/17 09:04 05/16/17 08:08 - Medications Medications: Current Medications Amlodipine Besylate (Norvasc) 10 mg PO DAILY [facility] Last Admin: 05/16/17 09:00 Dose: 10 mg Aspirin (Aspirin Chewable) 81 mg PO DAILY [facility] Last Admin: 05/16/17 08:59 Dose: 81 mg Atorvastatin Calcium (Lipitor) 20 mg PO HS [facility] Last Admin: 05/15/17 22:04 Dose: 20 mg Bacitracin (Bacitracin) 1 ea TOP TID [facility] Last Admin: 05/16/17 09:18 Dose: Not Given Carvedilol (Coreg) 6.25 mg PO Q12 [facility] Last Admin: 05/16/17 09:02 Dose: 6.25 mg Citalopram Hydrobromide (Celexa) 20 mg PO DAILY [facility] Last Admin: 05/16/17 09:03 Dose: 20 mg Clonidine HCl (Catapres) 0.3 mg PO TID [facility] Last Admin: 05/16/17 09:03 Dose: 0.3 mg Clopidogrel Bisulfate (Plavix) 75 mg PO DAILY [facility] Last Admin: 05/16/17 09:00 Dose: 75 mg Docusate Sodium (Colace) 100 mg PO DAILY [facility] Last Admin: 05/16/17 09:03 Dose: 100 mg Epoetin José Manuel (Procrit) 10,000 unit IV MWF [facility] Last Admin: 05/15/17 15:48 Dose: 10,000 unit Ergocalciferol (Drisdol 50,000 Intl Units Cap) 1 cap PO Q7D [facility] Last Admin: 05/13/17 18:55 Dose: 1 cap Famotidine (Pepcid) 20 mg IVP STAT STA Stop: 05/16/17 09:17 Guaifenesin/Dextromethorphan (Robitussin Dm) 10 ml PO Q4 PRN PRN Reason: Cough Last Admin: 05/12/17 13:33 Dose: 10 ml Heparin Sodium (Porcine) (Heparin) 5,000 units SC Q12 [facility] PRN Reason: Protocol Last Admin: 05/16/17 09:02 Dose: 5,000 units Hydralazine HCl (Apresoline) 100 mg PO Q8 [facility] Last Admin: 05/16/17 09:04 Dose: 100 mg Cyclophosphamide 650 mg/ (Sodium Chloride) 250 mls @ 0 mls/hr IV ONCE ONE PRN Reason: As Directed Stop: 05/16/17 09:14 Diphenhydramine HCl 25 mg/ (Sodium Chloride) 50.5 mls @ 101 mls/hr IVPB ONCE ONE Stop: 05/16/17 09:45 Dexamethasone 10 mg/ Sodium (Chloride) 51 mls @ 102 mls/hr IVPB ONCE ONE Stop: 05/16/17 09:44 Ondansetron HCl 16 mg/ Sodium (Chloride) 58 mls @ 116 mls/hr IVPB ONCE ONE Stop: 05/16/17 09:44 Ipratropium [place] (Atrovent) 0.5 mg IH RQ6 PRN PRN Reason: Wheezing Lactulose (Enulose) 20 gm PO BID PRN PRN Reason: Constipation Last Admin: 05/16/17 05:04 Dose: 20 gm Lidocaine (Lidoderm) 1 ea TD DAILY PRN PRN Reason: Pain, moderate (4-7) Metolazone (Zaroxolyn) 5 mg PO DAILY [facility] Last Admin: 05/16/17 09:02 Dose: 5 mg Nitroglycerin (Nitro-Bid 2% Oint) 1 inch TOP Q6 [facility] Last Admin: 05/16/17 09:19 Dose: 1 inch Pantoprazole Sodium (Protonix Ec Tab) 40 mg PO DAILY [facility] Last Admin: 05/16/17 09:01 Dose: 40 mg Prednisone (Prednisone Tab) 10 mg PO DAILY [facility] Last Admin: 05/16/17 09:01 Dose: 10 mg Fluticasone/Salmeterol (Advair Diskus 500/50) 1 puff IH Q12 [facility] Last Admin: 05/16/17 09:19 Dose: 1 puff Sevelamer Carbonate (Renvela) 1.6 gm PO TIDWM [facility] Last Admin: 05/16/17 09:01 Dose: 1.6 gm Spironolactone (Aldactone) 50 mg PO DAILY [facility] Last Admin: 05/16/17 09:00 Dose: 50 mg Torsemide (Demadex) 100 mg PO DAILY [facility] Last Admin: 05/16/17 09:00 Dose: 100 mg Vitamin B Complex/Vit C/Folic Acid (Nephro-Yemi) 1 tab PO DAILY [facility] Last Admin: 05/16/17 09:02 Dose: 1 tab - Labs Labs: 05/15/17 06:15 05/15/17 06:15 PT 10.6 Seconds (9.8-13.1) 05/10/17 05:45 INR 0.9 (0.9-1.2) 05/10/17 05:45 APTT 55.3 SECONDS (23.3-32.5) H 04/04/17 04:35 Assessment and Plan (1) Acute on chronic renal failure Status: Acute (2) Acute systolic congestive heart failure Status: Acute
[2017-05-16] MEDS ORDERED: CYCLOPHOSPHAMIDE IV ONE (11:30)
[2017-05-16] MEDS ORDERED: SODIUM CHLORIDE 0.45% IV ONE (11:30)
[2017-05-17] MEDS: Nitroglycerin 2% 15 INCH/30 GM TUBE TOP SCH ×4 (04:33→21:41)
[2017-05-17] MEDS: Bacitracin 500 Units/gm Oint Foilpak UD TOP SCH ×3 (08:31→17:23)
[2017-05-17] MEDS: Multivitamin Vitamin B Complex (Nephro-Vite) Tab PO SCH ×2 (08:33→13:30)
[2017-05-17] MEDS: Pantoprazole 40 mg EC Tab PO SCH ×2 (08:33→13:35)
[2017-05-17] MEDS: metOLazone 5 MG TAB PO SCH ×2 (08:34→13:30)
[2017-05-17] MEDS: Sevelamer Carb 0.8 gm/Packet PO SCH ×3 (08:35→17:22)
[2017-05-17] MEDS: Fluticasone-Salmeterol 500-50mcg Diskus IH SCH ×2 (08:36→21:39)
[2017-05-17] MEDS: EPOETIN ALFA 10,000 UNIT/ML ML IV SCH (08:58)
[2017-05-18] MEDS: Nitroglycerin 2% 15 INCH/30 GM TUBE TOP SCH ×4 (04:18→21:01)
--- NOTE | 2017-05-18 06:50 | CP.PCM.PN ---
Subjective - Date & Time of Evaluation Date of Evaluation: 05/18/17 Time of Evaluation: 07:40 - Subjective Subjective: Patient seen and examined at bedside. Reports he went down for bilateral upper extremity ultrasound. Denies chest pain, SOB, weakness or dizziness. Is tolerating PO diet, minimal urine output persists. Patient tolerated hemodialysis yesterday. Objective - Vital Signs/Intake and Output Vital Signs (last 24 hours): Temp Pulse Resp BP Pulse Ox 98.1 F 71 20 133/68 97 05/18/17 00:29 05/18/17 00:29 05/18/17 00:29 05/18/17 00:29 05/18/17 00:29 - Medications Medications: Current Medications Amlodipine Besylate (Norvasc) 10 mg PO DAILY [facility] Last Admin: 05/17/17 13:30 Dose: 10 mg Aspirin (Aspirin Chewable) 81 mg PO DAILY [facility] Last Admin: 05/17/17 13:31 Dose: 81 mg Atorvastatin Calcium (Lipitor) 20 mg PO HS [facility] Last Admin: 05/17/17 21:41 Dose: 20 mg Bacitracin (Bacitracin) 1 ea TOP TID [facility] Last Admin: 05/17/17 17:23 Dose: Not Given Carvedilol (Coreg) 6.25 mg PO Q12 [facility] Last Admin: 05/17/17 21:40 Dose: 6.25 mg Citalopram Hydrobromide (Celexa) 20 mg PO DAILY [facility] Last Admin: 05/17/17 08:32 Dose: Not Given Clonidine HCl (Catapres) 0.3 mg PO TID [facility] Last Admin: 05/17/17 17:23 Dose: 0.3 mg Clopidogrel Bisulfate (Plavix) 75 mg PO DAILY [facility] Last Admin: 05/17/17 13:30 Dose: 75 mg Docusate Sodium (Colace) 100 mg PO DAILY [facility] Last Admin: 05/17/17 13:34 Dose: 100 mg Epoetin José Manuel (Procrit) 10,000 unit IV MWF [facility] Last Admin: 05/17/17 08:58 Dose: 10,000 unit Ergocalciferol (Drisdol 50,000 Intl Units Cap) 1 cap PO Q7D [facility] Last Admin: 05/13/17 18:55 Dose: 1 cap Guaifenesin/Dextromethorphan (Robitussin Dm) 10 ml PO Q4 PRN PRN Reason: Cough Last Admin: 05/12/17 13:33 Dose: 10 ml Heparin Sodium (Porcine) (Heparin) 5,000 units SC Q12 [facility] PRN Reason: Protocol Last Admin: 05/17/17 21:40 Dose: 5,000 units Hydralazine HCl (Apresoline) 100 mg PO Q8 [facility] Last Admin: 05/18/17 00:19 Dose: 100 mg Ipratropium [place] (Atrovent) 0.5 mg IH RQ6 PRN PRN Reason: Wheezing Lactulose (Enulose) 20 gm PO BID PRN PRN Reason: Constipation Last Admin: 05/18/17 06:04 Dose: 20 gm Lidocaine (Lidoderm) 1 ea TD DAILY PRN PRN Reason: Pain, moderate (4-7) Metolazone (Zaroxolyn) 5 mg PO DAILY [facility] Last Admin: 05/17/17 13:30 Dose: 5 mg Nitroglycerin (Nitro-Bid 2% Oint) 1 inch TOP Q6 [facility] Last Admin: 05/18/17 04:18 Dose: 1 inch Pantoprazole Sodium (Protonix Ec Tab) 40 mg PO DAILY [facility] Last Admin: 05/17/17 13:35 Dose: 40 mg Prednisone (Prednisone Tab) 10 mg PO DAILY [facility] Last Admin: 05/17/17 13:35 Dose: 10 mg Fluticasone/Salmeterol (Advair Diskus 500/50) 1 puff IH Q12 [facility] Last Admin: 05/17/17 21:39 Dose: 1 puff Sevelamer Carbonate (Renvela) 1.6 gm PO TIDWM [facility] Last Admin: 05/17/17 17:22 Dose: 1.6 gm Spironolactone (Aldactone) 50 mg PO DAILY [facility] Last Admin: 05/17/17 08:30 Dose: Not Given Torsemide (Demadex) 100 mg PO DAILY [facility] Last Admin: 05/17/17 13:30 Dose: 100 mg Vitamin B Complex/Vit C/Folic Acid (Nephro-Yemi) 1 tab PO DAILY [facility] Last Admin: 05/17/17 13:30 Dose: 1 tab - Labs Labs: 05/15/17 06:15 05/15/17 06:15 PT 10.6 Seconds (9.8-13.1) 05/10/17 05:45 INR 0.9 (0.9-1.2) 05/10/17 05:45 APTT 55.3 SECONDS (23.3-32.5) H 04/04/17 04:35 - Constitutional Appears: Non-toxic, No Acute Distress - Head Exam Head Exam: ATRAUMATIC, NORMOCEPHALIC - Eye Exam Eye Exam: EOMI, PERRL - ENT Exam ENT Exam: Mucous Membranes Moist - Neck Exam Neck Exam: Full ROM. absent: Lymphadenopathy - Respiratory Exam Respiratory Exam: Clear to Ausculation Bilateral, NORMAL BREATHING PATTERN - Cardiovascular Exam Cardiovascular Exam: REGULAR RHYTHM, +S1, +S2 - GI/Abdominal Exam GI & Abdominal Exam: Soft (obese), Normal Bowel Sounds. absent: Distended, Tenderness - Extremities Exam Extremities Exam: Full ROM (RUE PICC line dressing c/d/i; Right chest PERMcath dressing c/d/i). 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 He was subsequently admitted for respiratory distress on 04/02/17. Patient found to have Acute on Chronic Kidney Injury and CHF exacerbation. During admission, he was diagnosed with ESRD and has started dialysis 3 times per week. His SOB has improved significantly and SW is working on arranging outpatient hemodialysis. Patient had vascular mapping today in preparation for AV fistula as patient needs life long HD. Patient tolerated hemodialysis well yesterday, patient had 4th cytoxan treatment on 05/16/17 and tolerated it well. 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 Miles: patient is not a suitable candidate for invasive cardiac workup, recommend continue with Coreg 6.25mg Q12, Lipitor 20 mg PO QD, Plavix 75mg QD, Heparin 5,000 units SC BID -Continue Torsemide 100mg PO daily -Not a good candidate for MAN-i due to impaired renal function -Strict I/Os. Daily weights. -ProBNP: improved to 13,200 -Patient appears to be at a functioning baseline COPD -stable O2 saturation wnl on room air -Likely 2dary to acute CHF Exacerbation vs NSTEMI vs acute on CKD vs multifocal PNA -CXR 04/03/17: multifocal hazy opacities increased bilaterally in lungs compared to prior CXR, left sided pleural effusion, dx includes edema,hemorrhage, multifocal PNA -CT Chest 04/04/17: Large bilateral pleural effusions, compressive atelectasis and upper lobe infiltrates, cardiomegaly, pericardial effusion-correlate for CHF -ID consult appreciated, Dr. Silver: follow recommendations , d/c'd Zosyn (s/p 10 days tx) -Prednisone 10mg PO QD, Advair, duonebs PRN -CXR 04/12/17: Small left pleural effusion and associated atelectasis or infiltrate, subtle infiltrate at the right lung base HTN -controlled -Cardio consult appreciated Dr. 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 associated with CKD -Asymptomatic, chronic, stable -S/p 2 units of pRBCs on 04/15/17 -H/H 10.30.3 -continue to monitor H/H Hx of RUE DVT -RUE DVT detected on 02/04/17 however patient was not a good candidate for usp anticoagulation -RUE duplex 04/20/17: No evidence of vein thrombosis of the RUE with normal venous flow -D-dimer also elevated at admission but of undetermined significance -Continue conservative treatment Left lower back pain, likely secondary to muscle strain -Resolved with Tylenol 650mg PO once -Lidoderm patch PRN NSTEMI, resolved -Likely NSTEMI during initial admission which was conservatively managed -Patient has been stable -Continue with Coreg 6.25mg PO Q12, ASA 81 mg daily, Plavix 75 mg daily, Heparin 5,000 units SC BID DVT/GI Prophylaxis -SCDs -Heparin 5000 units SC Q12H -Pantoprazole 40mg PO QD
[2017-05-18 07:04] LABS: HEMOGLOBIN 10.1 g/dL (12.0-18.0); MEAN CELL VOLUME 96.9 fl (80.0-94.0); MEAN CORPUSCULAR HEMOGLOBIN 32.3 pg (27.0-31.0); MEAN CORPUSCULAR HGB CONC 33.3 g/dL (33.0-37.0); RBC 3.13 Mil/uL (4.40-5.90); RED CELL DISTRIBUTION WIDTH 23.2 % (11.5-14.5); WHITE BLOOD COUNT 9.1 K/uL (4.8-10.8)
[2017-05-18 07:17] LABS: CALCIUM 8.3 mg/dL (8.4-10.2)
[2017-05-18] MEDS: Fluticasone-Salmeterol 500-50mcg Diskus IH SCH ×2 (09:22→20:56)
[2017-05-18] MEDS: Sevelamer Carb 0.8 gm/Packet PO SCH ×3 (09:23→17:37)
[2017-05-18] MEDS: metOLazone 5 MG TAB PO SCH (09:24)
[2017-05-18] MEDS: guaiFENesin DM 200 mg-20 mg/10 ml UD PO PRN (09:24)
[2017-05-18] MEDS: Pantoprazole 40 mg EC Tab PO SCH (09:24)
[2017-05-18] MEDS: Multivitamin Vitamin B Complex (Nephro-Vite) Tab PO SCH (09:25)
[2017-05-18] MEDS: Bacitracin 500 Units/gm Oint Foilpak UD TOP SCH ×3 (09:27→17:38)
--- NOTE | 2017-05-18 10:50 | US ---
Upper extremity venous ultrasound History: Evaluate for AV shunt. Technique: Ultrasonography evaluation of bilateral upper extremity veins for possible AV shunt. Findings: Right upper extremity: Cephalic vein: Proximal segment - Compressible; Depth- 0.35 centimeter ; maximum diameter 0.48 centimeter Middle segment - Compressible; depth - 0.36 centimeters; maximum diameter - 0.35 centimeter Distal segment - compressible ; depth -0.27 centimeter ; Maximum diameter 0.35 centimeter Antecubital fossa - compressible summary: Depth - 0.21 centimeter ; maximum diameter 0.29 centimeter Basilic vein: Not optimally imaged. Brachial vein: Catheter is seen within one of the paired brachial veins Both brachial veins appear patent and compressible in the proximal, mid segments. Proximal segment - depth 0.39 centimeters; maximum diameter 0.48 centimeter Middle and distal segments not optimally imaged. The paired radial veins were patent and compressible. The ulnar veins severe patent and compressible. Left upper extremity: Cephalic vein: Proximal segment -compressible ; depth - 0.48 centimeter ; maximum diameter 0.052 centimeter Middle segment -compressible; that is - 0.18 centimeters; maximum diameter 0.47 centimeter Distal segment -compressible; depth 0.2 centimeter ; maximum diameter 0.32 centimeter Basilic vein: Proximal segment -compressible ; depth - 0.58 centimeter; maximum diameter 0.64 centimeter Middle segment -compressible; that is - 0.78 centimeters; maximum diameter 0.46 centimeter Distal segment -compressible; depth 0.59 centimeter ; maximum diameter 0.35 centimeter The paired radial veins were patent and compressible. The ulnar veins severe patent and compressible. Impression: Compressible bilateral upper extremity veins as visualized. Please note that the right basilic vein was not optimally imaged. Measurements the depth and diameter of the veins as above.
[2017-05-19] MEDS: Nitroglycerin 2% 15 INCH/30 GM TUBE TOP SCH ×4 (06:02→21:42)
--- NOTE | 2017-05-19 06:55 | CP.PCM.PN ---
Subjective - Date & Time of Evaluation Date of Evaluation: 05/19/17 Time of Evaluation: 07:20 - Subjective Subjective: Patient seen and examined at bedside. No acute events overnight. Has complaint of right eye erythema without itchiness or discharge. Denies chest pain, SOB, weakness, fever or chills. Patient is aware he has hemodialysis today. Objective - Vital Signs/Intake and Output Vital Signs (last 24 hours): Temp Pulse Resp BP Pulse Ox 97.8 F 70 20 165/84 H 96 05/19/17 00:31 05/19/17 00:54 05/19/17 00:31 05/19/17 00:54 05/19/17 00:31 - Medications Medications: Current Medications Amlodipine Besylate (Norvasc) 10 mg PO DAILY [facility] Last Admin: 05/18/17 09:25 Dose: 10 mg Aspirin (Aspirin Chewable) 81 mg PO DAILY [facility] Last Admin: 05/18/17 09:25 Dose: 81 mg Atorvastatin Calcium (Lipitor) 20 mg PO HS [facility] Last Admin: 05/18/17 21:02 Dose: 20 mg Bacitracin (Bacitracin) 1 ea TOP TID [facility] Last Admin: 05/18/17 17:38 Dose: 1 ea Carvedilol (Coreg) 6.25 mg PO Q12 [facility] Last Admin: 05/18/17 20:56 Dose: 6.25 mg Citalopram Hydrobromide (Celexa) 20 mg PO DAILY [facility] Last Admin: 05/18/17 09:26 Dose: 20 mg Clonidine HCl (Catapres) 0.3 mg PO TID [facility] Last Admin: 05/18/17 17:36 Dose: 0.3 mg Clopidogrel Bisulfate (Plavix) 75 mg PO DAILY [facility] Last Admin: 05/18/17 09:29 Dose: 75 mg Docusate Sodium (Colace) 100 mg PO DAILY [facility] Last Admin: 05/18/17 09:25 Dose: 100 mg Epoetin José Manuel (Procrit) 10,000 unit IV MWF [facility] Last Admin: 05/17/17 08:58 Dose: 10,000 unit Ergocalciferol (Drisdol 50,000 Intl Units Cap) 1 cap PO Q7D [facility] Last Admin: 05/13/17 18:55 Dose: 1 cap Guaifenesin/Dextromethorphan (Robitussin Dm) 10 ml PO Q4 PRN PRN Reason: Cough Last Admin: 05/18/17 09:24 Dose: 10 ml Heparin Sodium (Porcine) (Heparin) 5,000 units SC Q12 [facility] PRN Reason: Protocol Last Admin: 05/18/17 20:57 Dose: 5,000 units Hydralazine HCl (Apresoline) 100 mg PO Q8 [facility] Last Admin: 05/19/17 00:54 Dose: 100 mg Ipratropium [place] (Atrovent) 0.5 mg IH RQ6 PRN PRN Reason: Wheezing Lactulose (Enulose) 20 gm PO BID PRN PRN Reason: Constipation Last Admin: 05/18/17 06:04 Dose: 20 gm Lidocaine (Lidoderm) 1 ea TD DAILY PRN PRN Reason: Pain, moderate (4-7) Metolazone (Zaroxolyn) 5 mg PO DAILY [facility] Last Admin: 05/18/17 09:24 Dose: 5 mg Nitroglycerin (Nitro-Bid 2% Oint) 1 inch TOP Q6 [facility] Last Admin: 05/19/17 06:02 Dose: 1 inch Pantoprazole Sodium (Protonix Ec Tab) 40 mg PO DAILY [facility] Last Admin: 05/18/17 09:24 Dose: 40 mg Prednisone (Prednisone Tab) 10 mg PO DAILY [facility] Last Admin: 05/18/17 09:28 Dose: 10 mg Fluticasone/Salmeterol (Advair Diskus 500/50) 1 puff IH Q12 [facility] Last Admin: 05/18/17 20:56 Dose: 1 puff Sevelamer Carbonate (Renvela) 1.6 gm PO TIDWM [facility] Last Admin: 05/18/17 17:37 Dose: 1.6 gm Spironolactone (Aldactone) 50 mg PO DAILY [facility] Last Admin: 05/18/17 09:27 Dose: 50 mg Torsemide (Demadex) 100 mg PO DAILY [facility] Last Admin: 05/18/17 09:24 Dose: 100 mg Vitamin B Complex/Vit C/Folic Acid (Nephro-Yemi) 1 tab PO DAILY [facility] Last Admin: 05/18/17 09:25 Dose: 1 tab - Labs Labs: 05/18/17 06:13 05/18/17 06:13 PT 10.6 Seconds (9.8-13.1) 05/10/17 05:45 INR 0.9 (0.9-1.2) 05/10/17 05:45 APTT 55.3 SECONDS (23.3-32.5) H 04/04/17 04:35 - Constitutional Appears: Non-toxic, No Acute Distress - Head Exam Head Exam: ATRAUMATIC, NORMOCEPHALIC - Eye Exam Eye Exam: EOMI (right eye medial erythema, no discharge), PERRL - ENT Exam ENT Exam: Mucous Membranes Moist - Neck Exam Neck Exam: Full ROM. absent: Lymphadenopathy - Respiratory Exam Respiratory Exam: Rhonchi (mild in bilateral lower extremities), NORMAL BREATHING PATTERN - Cardiovascular Exam Cardiovascular Exam: REGULAR RHYTHM, +S1, +S2 - GI/Abdominal Exam GI & Abdominal Exam: Soft (obese), Normal Bowel Sounds. absent: Distended, Tenderness - Extremities Exam Extremities Exam: Full ROM (RUE PICC line dressing c/d/i; Right chest PERMCath dressing c/d/i; b/l lower extremities with stasis dermatitis). 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 He was subsequently admitted for respiratory distress on 04/02/17. Patient found to have Acute on Chronic Kidney Injury and CHF exacerbation. During admission, he was diagnosed with ESRD and has started dialysis 3 times per week. His SOB has improved significantly and SW is working on arranging outpatient hemodialysis. Patient had vascular mapping in preparation for AV fistula as patient needs life long HD. Patient has hemodialysis today. Warm compress given for right hordeolum. 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 Miles: patient is not a suitable candidate for invasive cardiac workup, recommend continue with Coreg 6.25mg Q12, Lipitor 20 mg PO QD, Plavix 75mg QD, Heparin 5,000 units SC BID -Continue Torsemide 100mg PO daily -Not a good candidate for MAN-i due to impaired renal function -Strict I/Os. Daily weights. -ProBNP: improved to 13,200 -Patient appears to be at a functioning baseline COPD -stable O2 saturation wnl on room air -Likely 2dary to acute CHF Exacerbation vs NSTEMI vs acute on CKD vs multifocal PNA -CXR 04/03/17: multifocal hazy opacities increased bilaterally in lungs compared to prior CXR, left sided pleural effusion, dx includes edema,hemorrhage, multifocal PNA -CT Chest 04/04/17: Large bilateral pleural effusions, compressive atelectasis and upper lobe infiltrates, cardiomegaly, pericardial effusion-correlate for CHF -ID consult appreciated, Dr. Silver: follow recommendations , d/c'd Zosyn (s/p 10 days tx) -Prednisone 10mg PO QD, Advair, duonebs PRN -CXR 04/12/17: Small left pleural effusion and associated atelectasis or infiltrate, subtle infiltrate at the right lung base HTN -controlled -Cardio consult appreciated Dr. 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 associated with CKD -Asymptomatic, chronic, stable -S/p 2 units of pRBCs on 04/15/17 -H/H 10.1/30.3 (05/18/17) -continue to monitor H/H Hx of RUE DVT -RUE DVT detected on 02/04/17 however patient was not a good candidate for care home anticoagulation -RUE duplex 04/20/17: No evidence of vein thrombosis of the RUE with normal venous flow -D-dimer also elevated at admission but of undetermined significance -Continue conservative treatment Left lower back pain, likely secondary to muscle strain -Resolved with Tylenol 650mg PO once -Lidoderm patch PRN NSTEMI, resolved -Likely NSTEMI during initial admission which was conservatively managed -Patient has been stable -Continue with Coreg 6.25mg PO Q12, ASA 81 mg daily, Plavix 75 mg daily, Heparin 5,000 units SC BID DVT/GI Prophylaxis -SCDs -Heparin 5000 units SC Q12H -Pantoprazole 40mg PO QD
[2017-05-19] MEDS: Fluticasone-Salmeterol 500-50mcg Diskus IH SCH ×2 (10:13→21:16)
[2017-05-19] MEDS: Bacitracin 500 Units/gm Oint Foilpak UD TOP SCH ×2 (10:16→13:20)
[2017-05-19] MEDS: Lidocaine 5% Patch TD PRN (10:19)
[2017-05-19] MEDS: Multivitamin Vitamin B Complex (Nephro-Vite) Tab PO SCH (10:21)
[2017-05-19] MEDS: Pantoprazole 40 mg EC Tab PO SCH (10:23)
[2017-05-19] MEDS: Sevelamer Carb 0.8 gm/Packet PO SCH ×3 (10:23→16:48)
[2017-05-19] MEDS: metOLazone 5 MG TAB PO SCH (10:24)
[2017-05-19] MEDS: EPOETIN ALFA 10,000 UNIT/ML ML IV SCH (14:58)
[2017-05-20] MEDS: Ipratropium 0.02% Inhal Soln (0.5 mg/2.5 ml) UD IH PRN ×2 (04:33→16:34)
[2017-05-20] MEDS: Nitroglycerin 2% 15 INCH/30 GM TUBE TOP SCH ×4 (04:41→21:19)
[2017-05-20] MEDS: Sevelamer Carb 0.8 gm/Packet PO SCH ×2 (08:38→19:08)
[2017-05-20] MEDS: Fluticasone-Salmeterol 500-50mcg Diskus IH SCH ×2 (08:38→21:17)
[2017-05-20] MEDS: Pantoprazole 40 mg EC Tab PO SCH (08:41)
[2017-05-20] MEDS: metOLazone 5 MG TAB PO SCH (08:41)
[2017-05-20] MEDS: Multivitamin Vitamin B Complex (Nephro-Vite) Tab PO SCH (08:44)
--- NOTE | 2017-05-20 12:27 | CP.PCM.PN ---
Subjective - Date & Time of Evaluation Date of Evaluation: 05/20/17 Time of Evaluation: 08:05 - Subjective Subjective: Patient seen and examined at bedside. No acute events overnight. Reports right eye erythema has improved with warm compresses. Denies chest pain, weakness, dizziness or headache. Reports mild SOB this AM which resolved with a breathing treatment, otherwise patient reports he can walk down the entire hallway without any difficulty. Patient tolerated hemodialysis well yesterday and as per nursing note hemodialysis nurse removed 3L during hemodialysis. Objective - Vital Signs/Intake and Output Vital Signs (last 24 hours): Temp Pulse Resp BP Pulse Ox 98.3 F 72 18 129/67 96 05/20/17 08:50 05/20/17 10:37 05/20/17 01:04 05/20/17 10:37 05/20/17 01:04 - Medications Medications: Current Medications Amlodipine Besylate (Norvasc) 10 mg PO DAILY [facility] Last Admin: 05/20/17 08:51 Dose: 10 mg Aspirin (Aspirin Chewable) 81 mg PO DAILY [facility] Last Admin: 05/20/17 08:41 Dose: 81 mg Atorvastatin Calcium (Lipitor) 20 mg PO HS [facility] Last Admin: 05/19/17 21:18 Dose: 20 mg Carvedilol (Coreg) 6.25 mg PO Q12 [facility] Last Admin: 05/20/17 08:51 Dose: 6.25 mg Citalopram Hydrobromide (Celexa) 20 mg PO DAILY [facility] Last Admin: 05/20/17 08:42 Dose: 20 mg Clonidine HCl (Catapres) 0.3 mg PO TID [facility] Last Admin: 05/20/17 08:51 Dose: 0.3 mg Clopidogrel Bisulfate (Plavix) 75 mg PO DAILY [facility] Last Admin: 05/20/17 08:42 Dose: 75 mg Docusate Sodium (Colace) 100 mg PO DAILY [facility] Last Admin: 05/20/17 08:44 Dose: 100 mg Epoetin José Manuel (Procrit) 10,000 unit IV MWF [facility] Last Admin: 05/19/17 14:58 Dose: 10,000 unit Ergocalciferol (Drisdol 50,000 Intl Units Cap) 1 cap PO Q7D [facility] Last Admin: 05/13/17 18:55 Dose: 1 cap Guaifenesin/Dextromethorphan (Robitussin Dm) 10 ml PO Q4 PRN PRN Reason: Cough Last Admin: 05/18/17 09:24 Dose: 10 ml Heparin Sodium (Porcine) (Heparin) 5,000 units SC Q12 [facility] PRN Reason: Protocol Last Admin: 05/20/17 08:40 Dose: 5,000 units Hydralazine HCl (Apresoline) 100 mg PO Q8 [facility] Last Admin: 05/20/17 08:50 Dose: 100 mg Ipratropium [place] (Atrovent) 0.5 mg IH RQ6 PRN PRN Reason: Wheezing Last Admin: 05/20/17 04:33 Dose: 0.5 mg Lactulose (Enulose) 20 gm PO BID PRN PRN Reason: Constipation Last Admin: 05/18/17 06:04 Dose: 20 gm Lidocaine (Lidoderm) 1 ea TD DAILY PRN PRN Reason: Pain, moderate (4-7) Last Admin: 05/19/17 10:19 Dose: 1 ea Metolazone (Zaroxolyn) 5 mg PO DAILY [facility] Last Admin: 05/20/17 08:41 Dose: 5 mg Nitroglycerin (Nitro-Bid 2% Oint) 1 inch TOP Q6 [facility] Last Admin: 05/20/17 08:59 Dose: 1 inch Pantoprazole Sodium (Protonix Ec Tab) 40 mg PO DAILY [facility] Last Admin: 05/20/17 08:41 Dose: 40 mg Prednisone (Prednisone Tab) 10 mg PO DAILY [facility] Last Admin: 05/20/17 08:41 Dose: 10 mg Fluticasone/Salmeterol (Advair Diskus 500/50) 1 puff IH Q12 [facility] Last Admin: 05/20/17 08:38 Dose: 1 puff Sevelamer Carbonate (Renvela) 1.6 gm PO TIDWM [facility] Last Admin: 05/20/17 08:38 Dose: 1.6 gm Sevelamer HCl (Renagel) 1,600 mg PO TID [facility] Spironolactone (Aldactone) 50 mg PO DAILY [facility] Last Admin: 05/20/17 08:41 Dose: 50 mg Torsemide (Demadex) 100 mg PO DAILY [facility] Last Admin: 05/20/17 08:45 Dose: 100 mg Vitamin B Complex/Vit C/Folic Acid (Nephro-Yemi) 1 tab PO DAILY [facility] Last Admin: 05/20/17 08:44 Dose: 1 tab - Labs Labs: 05/18/17 06:13 05/18/17 06:13 PT 10.6 Seconds (9.8-13.1) 05/10/17 05:45 INR 0.9 (0.9-1.2) 05/10/17 05:45 APTT 55.3 SECONDS (23.3-32.5) H 04/04/17 04:35 - Constitutional Appears: Non-toxic, No Acute Distress - Head Exam Head Exam: ATRAUMATIC, NORMOCEPHALIC - Eye Exam Eye Exam: EOMI (right eye medial erythema significantly improved), PERRL - ENT Exam ENT Exam: Mucous Membranes Moist - Neck Exam Neck Exam: Full ROM. absent: Lymphadenopathy - Respiratory Exam Respiratory Exam: Rhonchi (mild in bilateral lower lobes). absent: Respiratory Distress - Cardiovascular Exam Cardiovascular Exam: REGULAR RHYTHM, +S1, +S2 - GI/Abdominal Exam GI & Abdominal Exam: Soft (obese), Normal Bowel Sounds. absent: Distended, Tenderness - Extremities Exam Extremities Exam: Full ROM. 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 Patient now has ESRD and required hemodialysis 3 times per week for life. Patient tolerated HD well yesterday, 3L removed. SW is working on arranging outpatient hemodialysis. 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 Miles: patient is not a suitable candidate for invasive cardiac workup, recommend continue with Coreg 6.25mg Q12, Lipitor 20 mg PO QD, Plavix 75mg QD, Heparin 5,000 units SC BID -Continue Torsemide 100mg PO daily -Not a good candidate for MAN-i due to impaired renal function , Strict I/Os. Daily weights. COPD -stable, chronic -Prednisone 10mg PO QD, Advair, duonebs PRN HTN -controlled , chronic - 1pm dose of Clonidine held today as BP was 100/60mmHg (pt was asymptomatic), low BP likely secondary to ultrafiltration of 3L from HD yesterday -Cardio consult appreciated Dr. 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
[2017-05-20] MEDS: Ergocalciferol 50,000 Intl Units Cap PO SCH (16:27)
[2017-05-21] MEDS: Nitroglycerin 2% 15 INCH/30 GM TUBE TOP SCH ×4 (04:34→21:03)
[2017-05-21] MEDS: Ipratropium 0.02% Inhal Soln (0.5 mg/2.5 ml) UD IH PRN (04:43)
[2017-05-21] MEDS: Fluticasone-Salmeterol 500-50mcg Diskus IH SCH ×2 (09:20→20:58)
[2017-05-21] MEDS: metOLazone 5 MG TAB PO SCH (09:31)
[2017-05-21] MEDS: Pantoprazole 40 mg EC Tab PO SCH (09:32)
[2017-05-21] MEDS: Multivitamin Vitamin B Complex (Nephro-Vite) Tab PO SCH (09:32)
--- NOTE | 2017-05-21 14:04 | CP.PCM.PN ---
Subjective - Date & Time of Evaluation Date of Evaluation: 05/21/17 Time of Evaluation: 09:40 - Subjective Subjective: Pt seen and evaluated at bedside this morning reports having right sided pain mainly around the rib and back, but on exam pointed mainly to RUQ region. Pt was re-evaluated later with attending physician, pt reported then pain has improved after taking a shower and walking around, only has mild pain now at the RUQ region. Initially pain started when he was sleeping around midnight, notified his nurse who gave him medication which helped with pain. No other complaints otherwise. Objective - Vital Signs/Intake and Output Vital Signs (last 24 hours): Temp Pulse Resp BP Pulse Ox 97.6 F 85 20 145/78 95 05/21/17 12:16 05/21/17 12:16 05/21/17 12:16 05/21/17 12:17 05/21/17 12:16 - Medications Medications: Current Medications Amlodipine Besylate (Norvasc) 10 mg PO DAILY [facility] Last Admin: 05/21/17 09:33 Dose: 10 mg Aspirin (Aspirin Chewable) 81 mg PO DAILY [facility] Last Admin: 05/21/17 09:23 Dose: 81 mg Atorvastatin Calcium (Lipitor) 20 mg PO HS [facility] Last Admin: 05/20/17 21:19 Dose: 20 mg Carvedilol (Coreg) 6.25 mg PO Q12 [facility] Last Admin: 05/21/17 09:30 Dose: 6.25 mg Citalopram Hydrobromide (Celexa) 20 mg PO DAILY [facility] Last Admin: 05/21/17 09:34 Dose: 20 mg Clonidine HCl (Catapres) 0.3 mg PO TID [facility] Last Admin: 05/21/17 12:17 Dose: 0.3 mg Clopidogrel Bisulfate (Plavix) 75 mg PO DAILY [facility] Last Admin: 05/21/17 09:25 Dose: 75 mg Docusate Sodium (Colace) 100 mg PO DAILY [facility] Last Admin: 05/21/17 09:32 Dose: 100 mg Epoetin José [place] (Procrit) 10,000 unit IV MWF [facility] Last Admin: 05/19/17 14:58 Dose: 10,000 unit Ergocalciferol (Drisdol 50,000 Intl Units Cap) 1 cap PO Q7D [facility] Last Admin: 05/20/17 16:27 Dose: 1 cap Guaifenesin/Dextromethorphan (Robitussin Dm) 10 ml PO Q4 PRN PRN Reason: Cough Last Admin: 05/18/17 09:24 Dose: 10 ml Heparin Sodium (Porcine) (Heparin) 5,000 units SC Q12 [facility] PRN Reason: Protocol Last Admin: 05/21/17 09:33 Dose: 5,000 units Hydralazine HCl (Apresoline) 100 mg PO Q8 [facility] Last Admin: 05/21/17 09:21 Dose: 100 mg Ipratropium [place] (Atrovent) 0.5 mg IH RQ6 PRN PRN Reason: Wheezing Last Admin: 05/21/17 04:43 Dose: 0.5 mg Lactulose (Enulose) 20 gm PO BID PRN PRN Reason: Constipation Last Admin: 05/21/17 09:22 Dose: 20 gm Lidocaine (Lidoderm) 1 ea TD DAILY PRN PRN Reason: Pain, moderate (4-7) Last Admin: 05/19/17 10:19 Dose: 1 ea Metolazone (Zaroxolyn) 5 mg PO DAILY [facility] Last Admin: 05/21/17 09:31 Dose: 5 mg Nitroglycerin (Nitro-Bid 2% Oint) 1 inch TOP Q6 [facility] Last Admin: 05/21/17 09:29 Dose: 1 inch Pantoprazole Sodium (Protonix Ec Tab) 40 mg PO DAILY [facility] Last Admin: 05/21/17 09:32 Dose: 40 mg Prednisone (Prednisone Tab) 10 mg PO DAILY [facility] Last Admin: 05/21/17 09:31 Dose: 10 mg Fluticasone/Salmeterol (Advair Diskus 500/50) 1 puff IH Q12 [facility] Last Admin: 05/21/17 09:20 Dose: 1 puff Sevelamer Carbonate (Renvela) 1.6 gm PO TIDWM [facility] Last Admin: 05/20/17 19:08 Dose: Not Given Sevelamer HCl (Renagel) 1,600 mg PO TIDWM [facility] Last Admin: 05/21/17 12:16 Dose: 1,600 mg Spironolactone (Aldactone) 50 mg PO DAILY [facility] Last Admin: 05/21/17 09:24 Dose: 50 mg Torsemide (Demadex) 100 mg PO DAILY [facility] Last Admin: 05/21/17 09:28 Dose: 100 mg Vitamin B Complex/Vit C/Folic Acid (Nephro-Yemi) 1 tab PO DAILY [facility] Last Admin: 05/21/17 09:32 Dose: 1 tab - Labs Labs: 05/18/17 06:13 05/18/17 06:13 PT 10.6 Seconds (9.8-13.1) 05/10/17 05:45 INR 0.9 (0.9-1.2) 05/10/17 05:45 APTT 55.3 SECONDS (23.3-32.5) H 04/04/17 04:35 - Constitutional Appears: Non-toxic, No Acute Distress - Head Exam Head Exam: NORMOCEPHALIC - Eye Exam Eye Exam: Normal appearance - ENT Exam ENT Exam: Mucous Membranes Moist - Respiratory Exam Respiratory Exam: Rales, NORMAL BREATHING PATTERN - Cardiovascular Exam Cardiovascular Exam: REGULAR RHYTHM, +S1, +S2 - GI/Abdominal Exam GI & Abdominal Exam: Soft, Normal Bowel Sounds. 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 Patient now has ESRD and required hemodialysis 3 times per week for life. Patient tolerated HD well yesterday, 3L removed. SW is working on arranging outpatient hemodialysis. 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 Miles: patient is not a suitable candidate for invasive cardiac workup, recommend continue with Coreg 6.25mg Q12, Lipitor 20 mg PO QD, Plavix 75mg QD, Heparin 5,000 units SC BID -Continue Torsemide 100mg PO daily -Per [place] Deputy not a good candidate for MAN-i due to impaired renal function - Will re-discuss with Nephrology about starting MAN given pt is now on dialysis and has had a DC and also have CHF -Strict I/Os. -Daily weights COPD -stable, chronic -Prednisone 10mg PO QD, Advair, duonebs PRN -Will consider switching Advair to Spiriva in the morning, following detail chart review to rule out previous failure HTN -controlled -Cardio consult appreciated Dr. 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
[2017-05-21] MEDS: guaiFENesin DM 200 mg-20 mg/10 ml UD PO PRN (21:05)
[2017-05-22] MEDS: Nitroglycerin 2% 15 INCH/30 GM TUBE TOP SCH ×4 (04:59→21:27)
[2017-05-22 06:34] LABS: HEMOGLOBIN 9.7 g/dL (12.0-18.0); MEAN CELL VOLUME 97.6 fl (80.0-94.0); MEAN CORPUSCULAR HEMOGLOBIN 32.8 pg (27.0-31.0); MEAN CORPUSCULAR HGB CONC 33.6 g/dL (33.0-37.0); RBC 2.96 Mil/uL (4.40-5.90); RED CELL DISTRIBUTION WIDTH 22.8 % (11.5-14.5); WHITE BLOOD COUNT 8.5 K/uL (4.8-10.8)
[2017-05-22 06:53] LABS: CALCIUM 8.1 mg/dL (8.4-10.2)
[2017-05-22] MEDS: Fluticasone-Salmeterol 500-50mcg Diskus IH SCH ×2 (09:02→21:26)
[2017-05-22] MEDS: Multivitamin Vitamin B Complex (Nephro-Vite) Tab PO SCH (09:04)
[2017-05-22] MEDS: Pantoprazole 40 mg EC Tab PO SCH (09:05)
[2017-05-22] MEDS: metOLazone 5 MG TAB PO SCH (09:05)
[2017-05-22] MEDS: EPOETIN ALFA 10,000 UNIT/ML ML IV SCH ×2 (09:23→15:57)
--- NOTE | 2017-05-22 14:35 | CP.PCM.PN ---
Subjective - Date & Time of Evaluation Date of Evaluation: 05/22/17 Time of Evaluation: 10:00 - Subjective Subjective: Pt seen and examined at bedside, pt pulled off his right toe nail and was actively bleeding, but denied any pain. Does not have any complaints otherwise. reports the right sided pain he reported has improved. nurses notes reviewed. For dialysis today Objective - Vital Signs/Intake and Output Vital Signs (last 24 hours): Temp Pulse Resp BP Pulse Ox 97.9 F 67 18 147/76 98 05/22/17 07:51 05/22/17 13:29 05/22/17 07:51 05/22/17 13:29 05/22/17 07:51 - Medications Medications: Current Medications Amlodipine Besylate (Norvasc) 10 mg PO DAILY [facility] Last Admin: 05/22/17 10:55 Dose: 10 mg Aspirin (Aspirin Chewable) 81 mg PO DAILY [facility] Last Admin: 05/22/17 09:07 Dose: 81 mg Atorvastatin Calcium (Lipitor) 20 mg PO HS [facility] Last Admin: 05/21/17 21:02 Dose: 20 mg Carvedilol (Coreg) 6.25 mg PO Q12 [facility] Last Admin: 05/22/17 10:53 Dose: 6.25 mg Citalopram Hydrobromide (Celexa) 20 mg PO DAILY [facility] Last Admin: 05/22/17 09:05 Dose: 20 mg Clonidine HCl (Catapres) 0.3 mg PO TID [facility] Last Admin: 05/22/17 13:29 Dose: 0.3 mg Clopidogrel Bisulfate (Plavix) 75 mg PO DAILY [facility] Last Admin: 05/22/17 09:05 Dose: 75 mg Docusate Sodium (Colace) 100 mg PO DAILY [facility] Last Admin: 05/22/17 09:06 Dose: 100 mg Epoetin José Manuel (Procrit) 10,000 unit IV MWF [facility] Last Admin: 05/22/17 09:23 Dose: Not Given Ergocalciferol (Drisdol 50,000 Intl Units Cap) 1 cap PO Q7D [facility] Last Admin: 05/20/17 16:27 Dose: 1 cap Guaifenesin/Dextromethorphan (Robitussin Dm) 10 ml PO Q4 PRN PRN Reason: Cough Last Admin: 05/21/17 21:05 Dose: 10 ml Heparin Sodium (Porcine) (Heparin) 5,000 units SC Q12 [facility] PRN Reason: Protocol Last Admin: 05/22/17 09:07 Dose: 5,000 units Hydralazine HCl (Apresoline) 100 mg PO Q8 [facility] Last Admin: 05/22/17 10:45 Dose: 100 mg Ipratropium [place] (Atrovent) 0.5 mg IH RQ6 PRN PRN Reason: Wheezing Last Admin: 05/21/17 04:43 Dose: 0.5 mg Lactulose (Enulose) 20 gm PO BID PRN PRN Reason: Constipation Last Admin: 05/22/17 06:20 Dose: 20 gm Lidocaine (Lidoderm) 1 ea TD DAILY PRN PRN Reason: Pain, moderate (4-7) Last Admin: 05/19/17 10:19 Dose: 1 ea Metolazone (Zaroxolyn) 5 mg PO DAILY [facility] Last Admin: 05/22/17 09:05 Dose: 5 mg Mupirocin (Bactroban Ointment) 1 applic TOP BID [facility] Nitroglycerin (Nitro-Bid 2% Oint) 1 inch TOP Q6 [facility] Last Admin: 05/22/17 09:04 Dose: 1 inch Pantoprazole Sodium (Protonix Ec Tab) 40 mg PO DAILY [facility] Last Admin: 05/22/17 09:05 Dose: 40 mg Prednisone (Prednisone Tab) 10 mg PO DAILY [facility] Last Admin: 05/22/17 09:05 Dose: 10 mg Fluticasone/Salmeterol (Advair Diskus 500/50) 1 puff IH Q12 [facility] Last Admin: 05/22/17 09:02 Dose: 1 puff Sevelamer Carbonate (Renvela) 1.6 gm PO TIDWM [facility] Last Admin: 05/20/17 19:08 Dose: Not Given Sevelamer HCl (Renagel) 1,600 mg PO TIDWM [facility] Last Admin: 05/22/17 13:29 Dose: 1,600 mg Spironolactone (Aldactone) 50 mg PO DAILY [facility] Last Admin: 05/22/17 09:05 Dose: 50 mg Torsemide (Demadex) 100 mg PO DAILY [facility] Last Admin: 05/22/17 10:53 Dose: 100 mg Vitamin B Complex/Vit C/Folic Acid (Nephro-Yemi) 1 tab PO DAILY [facility] Last Admin: 05/22/17 09:04 Dose: 1 tab - Labs Labs: 05/22/17 06:26 05/22/17 06:26 PT 10.6 Seconds (9.8-13.1) 05/10/17 05:45 INR 0.9 (0.9-1.2) 05/10/17 05:45 APTT 55.3 SECONDS (23.3-32.5) H 04/04/17 04:35 - Constitutional Appears: Non-toxic, No Acute Distress - Head Exam Head Exam: NORMOCEPHALIC - Eye Exam Eye Exam: Normal appearance, PERRL - ENT Exam ENT Exam: Mucous Membranes Moist - Respiratory Exam Respiratory Exam: Clear to Ausculation Bilateral, NORMAL BREATHING PATTERN. absent: Wheezes - Cardiovascular Exam Cardiovascular Exam: REGULAR RHYTHM, +S1, +S2 - GI/Abdominal Exam GI & Abdominal Exam: Soft, Normal Bowel Sounds. 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 Patient now has ESRD and required hemodialysis 3 times per week for life. SW is working on arranging outpatient hemodialysis. 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 Miles: patient is not a suitable candidate for invasive cardiac workup, recommend continue with Coreg 6.25mg Q12, Lipitor 20 mg PO QD, Plavix 75mg QD, Heparin 5,000 units SC BID -Continue Torsemide 100mg PO daily -Per Signal Inspector not a good candidate for MAN-i due to impaired renal function - Will re-discuss with Nephrology about starting MAN given pt is now on dialysis and has had a NM and also have CHF -Strict I/Os. -Daily weights COPD -stable, chronic -Prednisone 10mg PO QD, Advair, duonebs PRN -Could not find any evidence of failure on spirvia, pt seems to remember being on it and getting something else not sure of the reason, will do further investigation HTN -controlled -Cardio consult appreciated Dr. 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
--- NOTE | 2017-05-22 23:03 | CP.PCM.CON ---
History of Present Illness - History of Present Illness History of Present Illness: 67 year old male seen at bedside for podiatry consult to avulsed R great toe nail. Patient appears to be resting in bed comfortably, AAOx3 and NAD. Patient states that an hour ago today he pulled his right great toe nail off because of fungus. Patient denies any pain to his right great toe/foot. Per nursing, wound was cleansed with peroxide and dressed with a petroleum dressing and DSD. Patient denies N/V/F/C/D/SOB/CP. No other pedal complaints at this time. Review of Systems - Review of Systems All systems: reviewed and no additional remarkable complaints except (as per HPI ) Past Patient History - Infectious Disease Hx of Infectious Diseases: None - Past Medical History & Family History Past Medical History?: Yes - Past Social History Smoking Status: Former Smoker - CARDIAC Hx Cardiac Disorders: Yes Hx Congestive Heart Failure: Yes Hx Hypertension: Yes - PULMONARY Hx Chronic Obstructive Pulmonary Disease (COPD): Yes - NEUROLOGICAL Hx Neurological Disorder: Yes - HEENT Hx HEENT Problems: No - RENAL Hx Chronic Kidney Disease: Yes - ENDOCRINE/METABOLIC Hx Endocrine Disorders: No - HEMATOLOGICAL/ONCOLOGICAL Hx Anemia: Yes - INTEGUMENTARY Hx Dermatological Problems: No - MUSCULOSKELETAL/RHEUMATOLOGICAL Hx Arthritis: Yes - GASTROINTESTINAL Hx Gastrointestinal Disorders: Yes Hx Hemorrhoids: Yes - GENITOURINARY/GYNECOLOGICAL Hx Genitourinary Disorders: No - PSYCHIATRIC Hx Psychophysiologic Disorder: Yes - SURGICAL HISTORY Hx Coronary Stent: No - ANESTHESIA Hx Anesthesia: Yes Hx Anesthesia Reactions: No Meds Allergies/Adverse Reactions: Allergies Allergy/AdvReac Type Severity Reaction Status Date / Time sulfamethoxazole Allergy RASH Verified 03/06/17 17:55 [From ] trimethoprim [From ] Allergy RASH Verified 03/06/17 17:55 - Medications Medications: Current Medications Amlodipine Besylate (Norvasc) 10 mg PO DAILY [facility] Last Admin: 05/22/17 10:55 Dose: 10 mg Aspirin (Aspirin Chewable) 81 mg PO DAILY [facility] Last Admin: 05/22/17 09:07 Dose: 81 mg Atorvastatin Calcium (Lipitor) 20 mg PO HS [facility] Last Admin: 05/22/17 21:26 Dose: 20 mg Carvedilol (Coreg) 6.25 mg PO Q12 [facility] Last Admin: 05/22/17 21:28 Dose: 6.25 mg Citalopram Hydrobromide (Celexa) 20 mg PO DAILY [facility] Last Admin: 05/22/17 09:05 Dose: 20 mg Clonidine HCl (Catapres) 0.3 mg PO TID [facility] Last Admin: 05/22/17 17:13 Dose: Not Given Clopidogrel Bisulfate (Plavix) 75 mg PO DAILY [facility] Last Admin: 05/22/17 09:05 Dose: 75 mg Docusate Sodium (Colace) 100 mg PO DAILY [facility] Last Admin: 05/22/17 09:06 Dose: 100 mg Epoetin José Manuel (Procrit) 10,000 unit IV MWF [facility] Last Admin: 05/22/17 15:57 Dose: 10,000 unit Ergocalciferol (Drisdol 50,000 Intl Units Cap) 1 cap PO Q7D [facility] Last Admin: 05/20/17 16:27 Dose: 1 cap Guaifenesin/Dextromethorphan (Robitussin Dm) 10 ml PO Q4 PRN PRN Reason: Cough Last Admin: 05/21/17 21:05 Dose: 10 ml Heparin Sodium (Porcine) (Heparin) 5,000 units SC Q12 [facility] PRN Reason: Protocol Last Admin: 05/22/17 21:27 Dose: 5,000 units Hydralazine HCl (Apresoline) 100 mg PO Q8 [facility] Last Admin: 05/22/17 17:13 Dose: Not Given Ipratropium [place] (Atrovent) 0.5 mg IH RQ6 PRN PRN Reason: Wheezing Last Admin: 05/21/17 04:43 Dose: 0.5 mg Lactulose (Enulose) 20 gm PO BID PRN PRN Reason: Constipation Last Admin: 05/22/17 06:20 Dose: 20 gm Lidocaine (Lidoderm) 1 ea TD DAILY PRN PRN Reason: Pain, moderate (4-7) Last Admin: 05/19/17 10:19 Dose: 1 ea Metolazone (Zaroxolyn) 5 mg PO DAILY [facility] Last Admin: 05/22/17 09:05 Dose: 5 mg Mupirocin (Bactroban Ointment) 1 applic TOP BID [facility] Last Admin: 05/22/17 17:29 Dose: 1 applic Nitroglycerin (Nitro-Bid 2% Oint) 1 inch TOP Q6 [facility] Last Admin: 05/22/17 21:27 Dose: 1 inch Pantoprazole Sodium (Protonix Ec Tab) 40 mg PO DAILY [facility] Last Admin: 05/22/17 09:05 Dose: 40 mg Prednisone (Prednisone Tab) 10 mg PO DAILY [facility] Last Admin: 05/22/17 09:05 Dose: 10 mg Fluticasone/Salmeterol (Advair Diskus 500/50) 1 puff IH Q12 [facility] Last Admin: 05/22/17 21:26 Dose: 1 puff Sevelamer Carbonate (Renvela) 1.6 gm PO TIDWM [facility] Last Admin: 05/20/17 19:08 Dose: Not Given Sevelamer HCl (Renagel) 1,600 mg PO TIDWM [facility] Last Admin: 05/22/17 17:14 Dose: 1,600 mg Spironolactone (Aldactone) 50 mg PO DAILY [facility] Last Admin: 05/22/17 09:05 Dose: 50 mg Torsemide (Demadex) 100 mg PO DAILY [facility] Last Admin: 05/22/17 10:53 Dose: 100 mg Vitamin B Complex/Vit C/Folic Acid (Nephro-Yemi) 1 tab PO DAILY [facility] Last Admin: 05/22/17 09:04 Dose: 1 tab Physical Exam - Constitutional Appears: Well, Non-toxic, No Acute Distress - Extremities Exam Additional comments: Vasc: DP and PT pulses palpable 2/4 b/l. CFT <3 seconds to all digits x10. No edema noted. TG warm to warm Neuro: Gross sensation intact Derm: Nail 1 right foot is traumatically avulsed with active bleeding noted to nail bed. (-) probe to bone. Erythema noted to distal hallucal tuft. Ortho: No pain on palpation noted to right hallux - Neurological Exam Neurological exam: Alert, Oriented x3 - Psychiatric Exam Psychiatric exam: Normal Affect, Normal Mood Results - Vital Signs Recent Vital Signs: Last Vital Signs Temp 98.0 F 05/22/17 15:57 Pulse 70 05/22/17 21:28 Resp 19 05/22/17 15:57 BP 127/68 05/22/17 21:28 Pulse Ox 97 05/22/17 15:57 - Labs Result Diagrams: 05/22/17 06:26 05/22/17 06:26 Labs: Laboratory Results - last 24 hr 05/22/17 05/22/17 06:26 06:26 WBC 8.5 RBC 2.96 L Hgb 9.7 L Hct 28.9 L MCV 97.6 H MCH 32.8 H MCHC 33.6 RDW 22.8 H Plt Count 199 Sodium 135 Potassium 5.2 H Chloride 102 Carbon Dioxide 23 Anion Gap 15 BUN 59 H Creatinine 5.9 H Est GFR ( Amer) 12 Est GFR (Non-Af Amer) 10 Random Glucose 91 Calcium 8.1 L Assessment & Plan - Assessment and Plan (Free Text) Assessment: 67 year old male with (self) traumatically avulsed hallucal nail, right foot Plan: Patient seen and evaluated at bedside Discussed with attending, Dr. Gill Charts, labs, vitals reviewed = afebrile, WBC @ 8.5 Right hallucal nail bed cleaned with NSS and dressed with DSD Nursing communication placed: Please apply Bactroban topical ointment to right hallucal nail bed and dress wound with 4x4s and jennifer once a day. Please page podiatry if there are any changes or signs of infection to right great toe Stable per podiatry standpoint Thank you for this consult, please reconsult again as needed. - Date & Time Date: 05/22/17 Time: 13:00
[2017-05-23] MEDS: Nitroglycerin 2% 15 INCH/30 GM TUBE TOP SCH ×4 (04:52→21:54)
[2017-05-23] MEDS: Fluticasone-Salmeterol 500-50mcg Diskus IH SCH ×2 (08:40→21:51)
[2017-05-23] MEDS: Pantoprazole 40 mg EC Tab PO SCH (08:41)
[2017-05-23] MEDS: Multivitamin Vitamin B Complex (Nephro-Vite) Tab PO SCH (08:42)
[2017-05-23] MEDS: metOLazone 5 MG TAB PO SCH (08:43)
--- NOTE | 2017-05-23 17:10 | CP.PCM.PN ---
Subjective - Date & Time of Evaluation Date of Evaluation: 05/23/17 Time of Evaluation: 07:00 - Subjective Subjective: Pt seen and examined at bedside this morning, does not have any complaints this morning. Big toe does not hurt anymore. denies any nausea, vomiting, dizziness. nurses notes reviewed Objective - Vital Signs/Intake and Output Vital Signs (last 24 hours): Temp Pulse Resp BP Pulse Ox 97.8 F 80 18 111/61 98 05/23/17 17:00 05/23/17 17:00 05/23/17 17:00 05/23/17 17:00 05/23/17 17:00 - Medications Medications: Current Medications Amlodipine Besylate (Norvasc) 10 mg PO DAILY [facility] Last Admin: 05/23/17 08:43 Dose: 10 mg Aspirin (Aspirin Chewable) 81 mg PO DAILY [facility] Last Admin: 05/23/17 08:42 Dose: 81 mg Atorvastatin Calcium (Lipitor) 20 mg PO HS [facility] Last Admin: 05/22/17 21:26 Dose: 20 mg Carvedilol (Coreg) 6.25 mg PO Q12 [facility] Last Admin: 05/23/17 08:43 Dose: 6.25 mg Citalopram Hydrobromide (Celexa) 20 mg PO DAILY [facility] Last Admin: 05/23/17 08:44 Dose: 20 mg Clonidine HCl (Catapres) 0.3 mg PO TID [facility] Last Admin: 05/23/17 16:20 Dose: 0.3 mg Clopidogrel Bisulfate (Plavix) 75 mg PO DAILY [facility] Last Admin: 05/23/17 08:44 Dose: 75 mg Docusate Sodium (Colace) 100 mg PO DAILY [facility] Last Admin: 05/23/17 08:43 Dose: 100 mg Epoetin José Manuel (Procrit) 10,000 unit IV MWF [facility] Last Admin: 05/22/17 15:57 Dose: 10,000 unit Ergocalciferol (Drisdol 50,000 Intl Units Cap) 1 cap PO Q7D [facility] Last Admin: 05/20/17 16:27 Dose: 1 cap Guaifenesin/Dextromethorphan (Robitussin Dm) 10 ml PO Q4 PRN PRN Reason: Cough Last Admin: 05/21/17 21:05 Dose: 10 ml Heparin Sodium (Porcine) (Heparin) 5,000 units SC Q12 [facility] PRN Reason: Protocol Last Admin: 05/23/17 08:42 Dose: 5,000 units Hydralazine HCl (Apresoline) 100 mg PO Q8 [facility] Last Admin: 05/23/17 16:20 Dose: 100 mg Ipratropium [place] (Atrovent) 0.5 mg IH RQ6 PRN PRN Reason: Wheezing Last Admin: 05/21/17 04:43 Dose: 0.5 mg Lactulose (Enulose) 20 gm PO BID PRN PRN Reason: Constipation Last Admin: 05/22/17 06:20 Dose: 20 gm Lidocaine (Lidoderm) 1 ea TD DAILY PRN PRN Reason: Pain, moderate (4-7) Last Admin: 05/19/17 10:19 Dose: 1 ea Metolazone (Zaroxolyn) 5 mg PO DAILY [facility] Last Admin: 05/23/17 08:43 Dose: 5 mg Mupirocin (Bactroban Ointment) 1 applic TOP BID [facility] Last Admin: 05/23/17 16:22 Dose: 1 applic Nitroglycerin (Nitro-Bid 2% Oint) 1 inch TOP Q6 [facility] Last Admin: 05/23/17 16:20 Dose: 1 inch Pantoprazole Sodium (Protonix Ec Tab) 40 mg PO DAILY [facility] Last Admin: 05/23/17 08:41 Dose: 40 mg Prednisone (Prednisone Tab) 10 mg PO DAILY [facility] Last Admin: 05/23/17 08:42 Dose: 10 mg Fluticasone/Salmeterol (Advair Diskus 500/50) 1 puff IH Q12 [facility] Last Admin: 05/23/17 08:40 Dose: 1 puff Sevelamer Carbonate (Renvela) 1.6 gm PO TIDWM [facility] Last Admin: 05/20/17 19:08 Dose: Not Given Sevelamer HCl (Renagel) 1,600 mg PO TIDWM [facility] Last Admin: 05/23/17 16:19 Dose: 1,600 mg Spironolactone (Aldactone) 50 mg PO DAILY [facility] Last Admin: 05/23/17 08:42 Dose: 50 mg Torsemide (Demadex) 100 mg PO DAILY [facility] Last Admin: 05/23/17 08:41 Dose: 100 mg Vitamin B Complex/Vit C/Folic Acid (Nephro-Yemi) 1 tab PO DAILY [facility] Last Admin: 05/23/17 08:42 Dose: 1 tab - Labs Labs: 05/22/17 06:26 05/22/17 06:26 PT 10.6 Seconds (9.8-13.1) 05/10/17 05:45 INR 0.9 (0.9-1.2) 05/10/17 05:45 APTT 55.3 SECONDS (23.3-32.5) H 04/04/17 04:35 - Constitutional Appears: Non-toxic, No Acute Distress - Head Exam Head Exam: NORMOCEPHALIC - Eye Exam Eye Exam: Normal appearance - ENT Exam ENT Exam: Mucous Membranes Moist - Respiratory Exam Respiratory Exam: Clear to Ausculation Bilateral, NORMAL BREATHING PATTERN. absent: Rhonchi, Wheezes - Cardiovascular Exam Cardiovascular Exam: REGULAR RHYTHM, +S1, +S2 - GI/Abdominal Exam GI & Abdominal Exam: Soft, Normal Bowel Sounds. 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 Patient now has ESRD and required hemodialysis 3 times per week for life. SW is working on arranging outpatient hemodialysis. 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 Miles: patient is not a suitable candidate for invasive cardiac workup, recommend continue with Coreg 6.25mg Q12, Lipitor 20 mg PO QD, Plavix 75mg QD, Heparin 5,000 units SC BID -Continue Torsemide 100mg PO daily -Per Clothes Presser not a good candidate for MAN-i due to impaired renal function -Strict I/Os. -Daily weights COPD -stable, chronic -Prednisone 10mg PO QD, osbaldo Gregg PRN -Could not find any evidence of failure on spirvia, pt seems to remember being on it and getting something else not sure of the reason, will do further investigation HTN -controlled -Cardio consult appreciated Dr. 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
[2017-05-24] MEDS: Nitroglycerin 2% 15 INCH/30 GM TUBE TOP SCH ×2 (05:05→09:03)
[2017-05-24] MEDS: EPOETIN ALFA 10,000 UNIT/ML ML IV SCH (08:30)
[2017-05-24] MEDS: Fluticasone-Salmeterol 500-50mcg Diskus IH SCH ×2 (08:31→21:17)
[2017-05-24] MEDS: metOLazone 5 MG TAB PO SCH (08:32)
[2017-05-24] MEDS: Lidocaine 5% Patch TD PRN (08:33)
[2017-05-24] MEDS: Multivitamin Vitamin B Complex (Nephro-Vite) Tab PO SCH (08:33)
[2017-05-24] MEDS: Pantoprazole 40 mg EC Tab PO SCH (08:34)
[2017-05-24] MEDS: Nitroglycerin 2% Ointment Foilpak UD TOP SCH ×3 (10:19→21:16)
--- NOTE | 2017-05-24 11:25 | CP.PCM.PN ---
Subjective - Date & Time of Evaluation Date of Evaluation: 05/24/17 Time of Evaluation: 11:21 - Subjective Subjective: He was seen on hemodialysis now Patient sitting up in bed Appeared to be comfortable Vital sign stable Chest no rales Heart no rubs Abdomen soft Extremity no edema Impression and plan End stage renal disease requiring dialysis Monday The problem is a placement issue Continue hemodialysis MW I will see the patient once a week .or as needed Objective - Vital Signs/Intake and Output Vital Signs (last 24 hours): Temp Pulse Resp BP Pulse Ox 97.9 F 66 18 136/68 94 L 05/24/17 08:00 05/24/17 10:19 05/24/17 08:00 05/24/17 10:05/24/17 08:00 - Medications Medications: Current Medications Amlodipine Besylate (Norvasc) 10 mg PO DAILY [facility] Last Admin: 05/24/17 08:31 Dose: Not Given Aspirin (Aspirin Chewable) 81 mg PO DAILY [facility] Last Admin: 05/24/17 09:02 Dose: 81 mg Atorvastatin Calcium (Lipitor) 20 mg PO HS [facility] Last Admin: 05/23/17 21:54 Dose: 20 mg Carvedilol (Coreg) 6.25 mg PO Q12 [facility] Last Admin: 05/24/17 08:31 Dose: Not Given Citalopram Hydrobromide (Celexa) 20 mg PO DAILY [facility] Last Admin: 05/24/17 08:32 Dose: 20 mg Clonidine HCl (Catapres) 0.3 mg PO TID [facility] Last Admin: 05/24/17 08:32 Dose: Not Given Clopidogrel Bisulfate (Plavix) 75 mg PO DAILY [facility] Last Admin: 05/24/17 08:32 Dose: 75 mg Docusate Sodium (Colace) 100 mg PO DAILY [facility] Last Admin: 05/24/17 08:32 Dose: 100 mg Epoetin José Manuel (Procrit) 10,000 unit IV [facility] Last Admin: 05/24/17 08:30 Dose: 10,000 unit Ergocalciferol (Drisdol 50,000 Intl Units Cap) 1 cap PO Q7D [facility] Last Admin: 05/20/17 16:27 Dose: 1 cap Guaifenesin/Dextromethorphan (Robitussin Dm) 10 ml PO Q4 PRN PRN Reason: Cough Last Admin: 05/21/17 21:05 Dose: 10 ml Heparin Sodium (Porcine) (Heparin) 5,000 units SC Q12 [facility] PRN Reason: Protocol Last Admin: 05/24/17 09:02 Dose: 5,000 units Hydralazine HCl (Apresoline) 100 mg PO Q8 [facility] Last Admin: 05/24/17 08:34 Dose: Not Given Ipratropium [place] (Atrovent) 0.5 mg IH RQ6 PRN PRN Reason: Wheezing Last Admin: 05/21/17 04:43 Dose: 0.5 mg Lactulose (Enulose) 20 gm PO BID PRN PRN Reason: Constipation Last Admin: 05/22/17 06:20 Dose: 20 gm Lidocaine (Lidoderm) 1 ea TD DAILY PRN PRN Reason: Pain, moderate (4-7) Last Admin: 05/24/17 08:33 Dose: 1 ea Metolazone (Zaroxolyn) 5 mg PO DAILY [facility] Last Admin: 05/24/17 08:32 Dose: 5 mg Mupirocin (Bactroban Ointment) 1 applic TOP BID [facility] Last Admin: 05/24/17 08:32 Dose: 1 applic Nitroglycerin (Nitro-Bid 2% Oint) 1 ea TOP Q6 [facility] Last Admin: 05/24/17 10:19 Dose: 1 ea Pantoprazole Sodium (Protonix Ec Tab) 40 mg PO DAILY [facility] Last Admin: 05/24/17 08:34 Dose: 40 mg Prednisone (Prednisone Tab) 10 mg PO DAILY [facility] Last Admin: 05/24/17 08:33 Dose: 10 mg Fluticasone/Salmeterol (Advair Diskus 500/50) 1 puff IH Q12 [facility] Last Admin: 05/24/17 08:31 Dose: 1 puff Sevelamer Carbonate (Renvela) 1.6 gm PO TIDWM [facility] Last Admin: 05/20/17 19:08 Dose: Not Given Sevelamer HCl (Renagel) 1,600 mg PO TIDWM [facility] Last Admin: 05/24/17 08:31 Dose: 1,600 mg Spironolactone (Aldactone) 50 mg PO DAILY [facility] Last Admin: 05/24/17 08:33 Dose: 50 mg Torsemide (Demadex) 100 mg PO DAILY [facility] Last Admin: 05/24/17 08:32 Dose: 100 mg Vitamin B Complex/Vit C/Folic Acid (Nephro-Yemi) 1 tab PO DAILY [facility] Last Admin: 05/24/17 08:33 Dose: 1 tab - Labs Labs: 05/22/17 06:26 05/22/17 06:26 PT 10.6 Seconds (9.8-13.1) 05/10/17 05:45 INR 0.9 (0.9-1.2) 05/10/17 05:45 APTT 55.3 SECONDS (23.3-32.5) H 04/04/17 04:35 Assessment and Plan (1) Acute on chronic renal failure Status: Acute (2) Acute systolic congestive heart failure Status: Acute
--- NOTE | 2017-05-24 17:16 | CP.PCM.PN ---
Subjective - Date & Time of Evaluation Date of Evaluation: 05/24/17 Time of Evaluation: 13:00 - Subjective Subjective: Pt seen and examined at bedside today, pt had dialysis today. doing well, does not have any complaints. pt informed he will be getting a fistula placed in his arm for dialysis sometime soon , as vascular surgeon has been consulted. all questions answered Objective - Vital Signs/Intake and Output Vital Signs (last 24 hours): Temp Pulse Resp BP Pulse Ox 98.9 F 81 18 117/68 96 05/24/17 16:00 05/24/17 17:03 05/24/17 16:00 05/24/17 17:03 05/24/17 16:00 - Medications Medications: Current Medications Amlodipine Besylate (Norvasc) 10 mg PO DAILY [facility] Last Admin: 05/24/17 08:31 Dose: Not Given Aspirin (Aspirin Chewable) 81 mg PO DAILY [facility] Last Admin: 05/24/17 09:02 Dose: 81 mg Atorvastatin Calcium (Lipitor) 20 mg PO HS [facility] Last Admin: 05/23/17 21:54 Dose: 20 mg Carvedilol (Coreg) 6.25 mg PO Q12 [facility] Last Admin: 05/24/17 08:31 Dose: Not Given Citalopram Hydrobromide (Celexa) 20 mg PO DAILY [facility] Last Admin: 05/24/17 08:32 Dose: 20 mg Clonidine HCl (Catapres) 0.3 mg PO TID [facility] Last Admin: 05/24/17 17:03 Dose: 0.3 mg Clopidogrel Bisulfate (Plavix) 75 mg PO DAILY [facility] Last Admin: 05/24/17 08:32 Dose: 75 mg Docusate Sodium (Colace) 100 mg PO DAILY [facility] Last Admin: 05/24/17 08:32 Dose: 100 mg Epoetin José Manuel (Procrit) 10,000 unit IV MWF [facility] Last Admin: 05/24/17 08:30 Dose: 10,000 unit Ergocalciferol (Drisdol 50,000 Intl Units Cap) 1 cap PO Q7D [facility] Last Admin: 05/20/17 16:27 Dose: 1 cap Guaifenesin/Dextromethorphan (Robitussin Dm) 10 ml PO Q4 PRN PRN Reason: Cough Last Admin: 05/21/17 21:05 Dose: 10 ml Heparin Sodium (Porcine) (Heparin) 5,000 units SC Q12 [facility] PRN Reason: Protocol Last Admin: 05/24/17 09:02 Dose: 5,000 units Hydralazine HCl (Apresoline) 100 mg PO Q8 [facility] Last Admin: 05/24/17 17:03 Dose: 100 mg Ipratropium [place] (Atrovent) 0.5 mg IH RQ6 PRN PRN Reason: Wheezing Last Admin: 05/21/17 04:43 Dose: 0.5 mg Lactulose (Enulose) 20 gm PO BID PRN PRN Reason: Constipation Last Admin: 05/22/17 06:20 Dose: 20 gm Lidocaine (Lidoderm) 1 ea TD DAILY PRN PRN Reason: Pain, moderate (4-7) Last Admin: 05/24/17 08:33 Dose: 1 ea Metolazone (Zaroxolyn) 5 mg PO DAILY [facility] Last Admin: 05/24/17 08:32 Dose: 5 mg Mupirocin (Bactroban Ointment) 1 applic TOP BID [facility] Last Admin: 05/24/17 17:03 Dose: 1 applic Nitroglycerin (Nitro-Bid 2% Oint) 1 ea TOP Q6 [facility] Last Admin: 05/24/17 17:02 Dose: 1 ea Pantoprazole Sodium (Protonix Ec Tab) 40 mg PO DAILY [facility] Last Admin: 05/24/17 08:34 Dose: 40 mg Prednisone (Prednisone Tab) 10 mg PO DAILY [facility] Last Admin: 05/24/17 08:33 Dose: 10 mg Fluticasone/Salmeterol (Advair Diskus 500/50) 1 puff IH Q12 [facility] Last Admin: 05/24/17 08:31 Dose: 1 puff Sevelamer Carbonate (Renvela) 1.6 gm PO TIDWM [facility] Last Admin: 05/20/17 19:08 Dose: Not Given Sevelamer HCl (Renagel) 1,600 mg PO TIDWM [facility] Last Admin: 05/24/17 17:02 Dose: 1,600 mg Spironolactone (Aldactone) 50 mg PO DAILY [facility] Last Admin: 05/24/17 08:33 Dose: 50 mg Torsemide (Demadex) 100 mg PO DAILY [facility] Last Admin: 05/24/17 08:32 Dose: 100 mg Vitamin B Complex/Vit C/Folic Acid (Nephro-Yemi) 1 tab PO DAILY [facility] Last Admin: 05/24/17 08:33 Dose: 1 tab - Labs Labs: 05/22/17 06:26 05/22/17 06:26 PT 10.6 Seconds (9.8-13.1) 05/10/17 05:45 INR 0.9 (0.9-1.2) 05/10/17 05:45 APTT 55.3 SECONDS (23.3-32.5) H 04/04/17 04:35 - Constitutional Appears: Non-toxic, No Acute Distress - Eye Exam Eye Exam: Normal appearance - ENT Exam ENT Exam: Mucous Membranes Moist - Respiratory Exam Respiratory Exam: Clear to Ausculation Bilateral, NORMAL BREATHING PATTERN. absent: Rhonchi, Wheezes - Cardiovascular Exam Cardiovascular Exam: REGULAR RHYTHM, +S1, +S2 - GI/Abdominal Exam GI & Abdominal Exam: Soft, Normal Bowel Sounds. 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 Patient now has ESRD and required hemodialysis 3 times per week for life. 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 Palm consulted today for fistula ; awaiting date Right Big Toe Injury -continue applying antibiotic topically on affected toe -podiatry recommendation appreciated Systolic CHF with Acute Exacerbation -stable, chronic -Echo 04/02/17: LVEF 30-35%, with generalized moderate hypokinesia particularly pronounced in the septum -Cardio consult appreciated Dr. 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 -Daily weights COPD -stable, chronic -Prednisone 10mg PO QD, Advairsharynbs PRN -Could not find any evidence of failure on spirvia, pt seems to remember being on it and getting something else not sure of the reason, will do further investigation HTN -controlled -Cardio consult appreciated Dr. 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
--- NOTE | 2017-05-24 18:01 | CP.PCM.CON ---
<Erika Massey - Last Filed: 05/25/17 14:18> History of Present Illness - History of Present Illness History of Present Illness: VASCULAR SURGERY CONSULT FOR DR. 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 On 04/04/17, pt had PICC into right basilic vein & non-tunneled HD catheter placement into Right IJ. On 05/10/17 he had exchange of Right IJ non-tunneled HD catheter. Vascular surgery was consulted for AV fistula placement. Vein mapping has been done. Social work is arranging for outpatient hemodialysis currently. Review of Systems - Review of Systems All systems: reviewed and no additional remarkable complaints except (as per HPI ) Past Patient History - Infectious Disease Hx of Infectious Diseases: None - Past Medical History & Family History Past Medical History?: Yes - Past Social History Smoking Status: Former Smoker - CARDIAC Hx Cardiac Disorders: Yes Hx Congestive Heart Failure: Yes Hx Hypertension: Yes - PULMONARY Hx Chronic Obstructive Pulmonary Disease (COPD): Yes - NEUROLOGICAL Hx Neurological Disorder: Yes - HEENT Hx HEENT Problems: No - RENAL Hx Chronic Kidney Disease: Yes - ENDOCRINE/METABOLIC Hx Endocrine Disorders: No - HEMATOLOGICAL/ONCOLOGICAL Hx Anemia: Yes - INTEGUMENTARY Hx Dermatological Problems: No - MUSCULOSKELETAL/RHEUMATOLOGICAL Hx Arthritis: Yes - GASTROINTESTINAL Hx Gastrointestinal Disorders: Yes Hx Hemorrhoids: Yes - GENITOURINARY/GYNECOLOGICAL Hx Genitourinary Disorders: No - PSYCHIATRIC Hx Psychophysiologic Disorder: Yes - SURGICAL HISTORY Hx Coronary Stent: No - ANESTHESIA Hx Anesthesia: Yes Hx Anesthesia Reactions: No Meds Allergies/Adverse Reactions: Allergies Allergy/AdvReac Type Severity Reaction Status Date / Time sulfamethoxazole Allergy RASH Verified 03/06/17 17:55 [From ] trimethoprim [From ] Allergy RASH Verified 03/06/17 17:55 - Medications Medications: Current Medications Amlodipine Besylate (Norvasc) 10 mg PO DAILY [facility] Last Admin: 05/24/17 08:31 Dose: Not Given Aspirin (Aspirin Chewable) 81 mg PO DAILY [facility] Last Admin: 05/24/17 09:02 Dose: 81 mg Atorvastatin Calcium (Lipitor) 20 mg PO HS [facility] Last Admin: 05/23/17 21:54 Dose: 20 mg Carvedilol (Coreg) 6.25 mg PO Q12 [facility] Last Admin: 05/24/17 08:31 Dose: Not Given Citalopram Hydrobromide (Celexa) 20 mg PO DAILY [facility] Last Admin: 05/24/17 08:32 Dose: 20 mg Clonidine HCl (Catapres) 0.3 mg PO TID [facility] Last Admin: 05/24/17 17:03 Dose: 0.3 mg Clopidogrel Bisulfate (Plavix) 75 mg PO DAILY [facility] Last Admin: 05/24/17 08:32 Dose: 75 mg Docusate Sodium (Colace) 100 mg PO DAILY [facility] Last Admin: 05/24/17 08:32 Dose: 100 mg Epoetin José Manuel (Procrit) 10,000 unit IV MWF [facility] Last Admin: 05/24/17 08:30 Dose: 10,000 unit Ergocalciferol (Drisdol 50,000 Intl Units Cap) 1 cap PO Q7D [facility] Last Admin: 05/20/17 16:27 Dose: 1 cap Guaifenesin/Dextromethorphan (Robitussin Dm) 10 ml PO Q4 PRN PRN Reason: Cough Last Admin: 05/21/17 21:05 Dose: 10 ml Heparin Sodium (Porcine) (Heparin) 5,000 units SC Q12 [facility] PRN Reason: Protocol Last Admin: 05/24/17 09:02 Dose: 5,000 units Hydralazine HCl (Apresoline) 100 mg PO Q8 [facility] Last Admin: 05/24/17 17:03 Dose: 100 mg Ipratropium [place] (Atrovent) 0.5 mg IH RQ6 PRN PRN Reason: Wheezing Last Admin: 05/21/17 04:43 Dose: 0.5 mg Lactulose (Enulose) 20 gm PO BID PRN PRN Reason: Constipation Last Admin: 05/22/17 06:20 Dose: 20 gm Lidocaine (Lidoderm) 1 ea TD DAILY PRN PRN Reason: Pain, moderate (4-7) Last Admin: 05/24/17 08:33 Dose: 1 ea Metolazone (Zaroxolyn) 5 mg PO DAILY [facility] Last Admin: 05/24/17 08:32 Dose: 5 mg Mupirocin (Bactroban Ointment) 1 applic TOP BID [facility] Last Admin: 05/24/17 17:03 Dose: 1 applic Nitroglycerin (Nitro-Bid 2% Oint) 1 ea TOP Q6 [facility] Last Admin: 05/24/17 17:02 Dose: 1 ea Pantoprazole Sodium (Protonix Ec Tab) 40 mg PO DAILY [facility] Last Admin: 05/24/17 08:34 Dose: 40 mg Prednisone (Prednisone Tab) 10 mg PO DAILY [facility] Last Admin: 05/24/17 08:33 Dose: 10 mg Fluticasone/Salmeterol (Advair Diskus 500/50) 1 puff IH Q12 [facility] Last Admin: 05/24/17 08:31 Dose: 1 puff Sevelamer Carbonate (Renvela) 1.6 gm PO TIDWM [facility] Last Admin: 05/20/17 19:08 Dose: Not Given Sevelamer HCl (Renagel) 1,600 mg PO TIDWM [facility] Last Admin: 05/24/17 17:02 Dose: 1,600 mg Spironolactone (Aldactone) 50 mg PO DAILY [facility] Last Admin: 05/24/17 08:33 Dose: 50 mg Torsemide (Demadex) 100 mg PO DAILY [facility] Last Admin: 05/24/17 08:32 Dose: 100 mg Vitamin B Complex/Vit C/Folic Acid (Nephro-Yemi) 1 tab PO DAILY [facility] Last Admin: 05/24/17 08:33 Dose: 1 tab Physical Exam - Constitutional Appears: Non-toxic, No Acute Distress - Neck Exam Additional comments: Right IJ Dialysis catheter - Respiratory Exam Respiratory Exam: NORMAL BREATHING PATTERN. absent: Respiratory Distress - Cardiovascular Exam Cardiovascular Exam: +S1, +S2 - GI/Abdominal Exam GI & Abdominal Exam: Soft. absent: Distended, Firm, Guarding, Rigid, Tenderness - Extremities Exam Additional comments: Right PICC - Neurological Exam Neurological exam: Alert, CN II-XII Intact, Oriented x3 - Psychiatric Exam Psychiatric exam: Normal Affect, Normal Mood - Skin Skin Exam: Dry, Normal Color, Warm Results - Vital Signs Recent Vital Signs: Last Vital Signs Temp 98.9 F 05/24/17 16:00 Pulse 81 05/24/17 17:03 Resp 18 05/24/17 16:00 BP 117/68 05/24/17 17:03 Pulse Ox 96 05/24/17 16:00 - Labs Result Diagrams: 05/22/17 06:26 05/22/17 06:26 Assessment & Plan - Assessment and Plan (Free Text) Assessment: 67yo M with PMHx of HTN, CHF, CKD, vasculitis, DVT who now has ESRD 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 - Right IJ Dialysis catheter in place - Right PICC in place - Pt right handed - Left arm precautions - Vein mapping done - Will plan for AV Fistula, date to be determined by Dr. Fernandes - Discussed plan with Dr. Dena Massey PGY-3 <Manuel Fernandes - Last Filed: 05/25/17 17:02> Meds - Medications Medications: Current Medications Amlodipine Besylate (Norvasc) 10 mg PO DAILY [facility] Last Admin: 05/25/17 08:45 Dose: 10 mg Aspirin (Aspirin Chewable) 81 mg PO DAILY [facility] Last Admin: 05/25/17 08:44 Dose: 81 mg Atorvastatin Calcium (Lipitor) 20 mg PO HS [facility] Last Admin: 05/24/17 21:16 Dose: 20 mg Carvedilol (Coreg) 6.25 mg PO Q12 [facility] Last Admin: 05/25/17 08:43 Dose: 6.25 mg Citalopram Hydrobromide (Celexa) 20 mg PO DAILY [facility] Last Admin: 05/25/17 08:44 Dose: 20 mg Clonidine HCl (Catapres) 0.3 mg PO TID [facility] Last Admin: 05/25/17 13:24 Dose: 0.3 mg Clopidogrel Bisulfate (Plavix) 75 mg PO DAILY [facility] Last Admin: 05/25/17 08:44 Dose: 75 mg Docusate Sodium (Colace) 100 mg PO DAILY [facility] Last Admin: 05/25/17 08:45 Dose: 100 mg Epoetin [place] (Procrit) 10,000 unit IV MWF [facility] Last Admin: 05/24/17 08:30 Dose: 10,000 unit Ergocalciferol (Drisdol 50,000 Intl Units Cap) 1 cap PO Q7D [facility] Last Admin: 05/20/17 16:27 Dose: 1 cap Guaifenesin/Dextromethorphan (Robitussin Dm) 10 ml PO Q4 PRN PRN Reason: Cough Last Admin: 05/21/17 21:05 Dose: 10 ml Heparin Sodium (Porcine) (Heparin) 5,000 units SC Q12 [facility] PRN Reason: Protocol Last Admin: 05/25/17 08:43 Dose: 5,000 units Hydralazine HCl (Apresoline) 100 mg PO Q8 [facility] Last Admin: 05/25/17 08:42 Dose: 100 mg Ipratropium [place] (Atrovent) 0.5 mg IH RQ6 PRN PRN Reason: Wheezing Last Admin: 05/21/17 04:43 Dose: 0.5 mg Lactulose (Enulose) 20 gm PO BID PRN PRN Reason: Constipation Last Admin: 05/22/17 06:20 Dose: 20 gm Lidocaine (Lidoderm) 1 ea TD DAILY PRN PRN Reason: Pain, moderate (4-7) Last Admin: 05/25/17 08:47 Dose: 1 ea Metolazone (Zaroxolyn) 5 mg PO DAILY [facility] Last Admin: 05/25/17 08:46 Dose: 5 mg Mupirocin (Bactroban Ointment) 1 applic TOP BID [facility] Last Admin: 05/25/17 08:45 Dose: 1 applic Nitroglycerin (Nitro-Bid 2% Oint) 1 ea TOP Q6 [facility] Pantoprazole Sodium (Protonix Ec Tab) 40 mg PO DAILY [facility] Last Admin: 05/25/17 08:45 Dose: 40 mg Prednisone (Prednisone Tab) 10 mg PO DAILY [facility] Last Admin: 05/25/17 08:45 Dose: 10 mg Fluticasone/Salmeterol (Advair Diskus 500/50) 1 puff IH Q12 [facility] Last Admin: 05/25/17 08:42 Dose: 1 puff Sevelamer Carbonate (Renvela) 1.6 gm PO TIDWM [facility] Last Admin: 05/20/17 19:08 Dose: Not Given Sevelamer HCl (Renagel) 1,600 mg PO TIDWM [facility] Last Admin: 05/25/17 13:24 Dose: 1,600 mg Spironolactone (Aldactone) 50 mg PO DAILY [facility] Last Admin: 05/25/17 08:43 Dose: 50 mg Torsemide (Demadex) 100 mg PO DAILY [facility] Last Admin: 05/25/17 08:45 Dose: 100 mg Vitamin B Complex/Vit C/Folic Acid (Nephro-Yemi) 1 tab PO DAILY [facility] Last Admin: 05/25/17 08:43 Dose: 1 tab Results - Vital Signs Recent Vital Signs: Last Vital Signs Temp 98.0 F 05/25/17 16:12 Pulse 75 05/25/17 16:12 Resp 17 05/25/17 16:12 BP 139/70 05/25/17 16:12 Pulse Ox 96 05/25/17 16:12 - Labs Result Diagrams: 05/22/17 06:26 05/22/17 06:26 Assessment & Plan - Assessment and Plan (Free Text) Plan: Patient seen and examined. He was interviewed with Monegasque-speaking electronics instructor. Chart including vein mapping reviewed. He is currently being dialyzed via right IJ dialysis catheter. He is agreeable to dialysis access fistula or graft placement which we'll plan for early next week. Thank you for this consult and the opportunity to participate in patient's care. Manuel Fernandes MD Vascular Surgery
[2017-05-25] MEDS: Nitroglycerin 2% Ointment Foilpak UD TOP SCH ×4 (04:20→21:14)
[2017-05-25] MEDS: Fluticasone-Salmeterol 500-50mcg Diskus IH SCH ×2 (08:42→21:12)
[2017-05-25] MEDS: Multivitamin Vitamin B Complex (Nephro-Vite) Tab PO SCH (08:43)
[2017-05-25] MEDS: Pantoprazole 40 mg EC Tab PO SCH (08:45)
[2017-05-25] MEDS: metOLazone 5 MG TAB PO SCH (08:46)
[2017-05-25] MEDS: Lidocaine 5% Patch TD PRN (08:47)
--- NOTE | 2017-05-25 15:34 | CP.PCM.PN ---
<Erika Massey - Last Filed: 05/25/17 15:33> Subjective - Date & Time of Evaluation Date of Evaluation: 05/25/17 Time of Evaluation: 08:00 - Subjective Subjective: VASCULAR SURGERY PROGRESS NOTE FOR DR. FERNANDES Patient seen and examined at bedside. Patient has no complaints and does not report any pain. He is tolerating his diet. Left arm precautions in place. His next dialysis is tomorrow. Objective - Vital Signs/Intake and Output Vital Signs (last 24 hours): Temp Pulse Resp BP Pulse Ox 98.3 F 85 20 167/85 H 96 05/25/17 07:57 05/25/17 13:24 05/25/17 07:57 05/25/17 13:24 05/25/17 07:57 - Medications Medications: Current Medications Amlodipine Besylate (Norvasc) 10 mg PO DAILY [facility] Last Admin: 05/25/17 08:45 Dose: 10 mg Aspirin (Aspirin Chewable) 81 mg PO DAILY [facility] Last Admin: 05/25/17 08:44 Dose: 81 mg Atorvastatin Calcium (Lipitor) 20 mg PO HS [facility] Last Admin: 05/24/17 21:16 Dose: 20 mg Carvedilol (Coreg) 6.25 mg PO Q12 [facility] Last Admin: 05/25/17 08:43 Dose: 6.25 mg Citalopram Hydrobromide (Celexa) 20 mg PO DAILY [facility] Last Admin: 05/25/17 08:44 Dose: 20 mg Clonidine HCl (Catapres) 0.3 mg PO TID [facility] Last Admin: 05/25/17 13:24 Dose: 0.3 mg Clopidogrel Bisulfate (Plavix) 75 mg PO DAILY [facility] Last Admin: 05/25/17 08:44 Dose: 75 mg Docusate Sodium (Colace) 100 mg PO DAILY [facility] Last Admin: 05/25/17 08:45 Dose: 100 mg Epoetin José Manuel (Procrit) 10,000 unit IV MWF [facility] Last Admin: 05/24/17 08:30 Dose: 10,000 unit Ergocalciferol (Drisdol 50,000 Intl Units Cap) 1 cap PO Q7D [facility] Last Admin: 05/20/17 16:27 Dose: 1 cap Guaifenesin/Dextromethorphan (Robitussin Dm) 10 ml PO Q4 PRN PRN Reason: Cough Last Admin: 05/21/17 21:05 Dose: 10 ml Heparin Sodium (Porcine) (Heparin) 5,000 units SC Q12 [facility] PRN Reason: Protocol Last Admin: 05/25/17 08:43 Dose: 5,000 units Hydralazine HCl (Apresoline) 100 mg PO Q8 [facility] Last Admin: 05/25/17 08:42 Dose: 100 mg Ipratropium [place] (Atrovent) 0.5 mg IH RQ6 PRN PRN Reason: Wheezing Last Admin: 05/21/17 04:43 Dose: 0.5 mg Lactulose (Enulose) 20 gm PO BID PRN PRN Reason: Constipation Last Admin: 05/22/17 06:20 Dose: 20 gm Lidocaine (Lidoderm) 1 ea TD DAILY PRN PRN Reason: Pain, moderate (4-7) Last Admin: 05/25/17 08:47 Dose: 1 ea Metolazone (Zaroxolyn) 5 mg PO DAILY [facility] Last Admin: 05/25/17 08:46 Dose: 5 mg Mupirocin (Bactroban Ointment) 1 applic TOP BID [facility] Last Admin: 05/25/17 08:45 Dose: 1 applic Nitroglycerin (Nitro-Bid 2% Oint) 1 ea TOP Q6 [facility] Pantoprazole Sodium (Protonix Ec Tab) 40 mg PO DAILY [facility] Last Admin: 05/25/17 08:45 Dose: 40 mg Prednisone (Prednisone Tab) 10 mg PO DAILY [facility] Last Admin: 05/25/17 08:45 Dose: 10 mg Fluticasone/Salmeterol (Advair Diskus 500/50) 1 puff IH Q12 [facility] Last Admin: 05/25/17 08:42 Dose: 1 puff Sevelamer Carbonate (Renvela) 1.6 gm PO TIDWM [facility] Last Admin: 05/20/17 19:08 Dose: Not Given Sevelamer HCl (Renagel) 1,600 mg PO TIDWM [facility] Last Admin: 05/25/17 13:24 Dose: 1,600 mg Spironolactone (Aldactone) 50 mg PO DAILY [facility] Last Admin: 05/25/17 08:43 Dose: 50 mg Torsemide (Demadex) 100 mg PO DAILY [facility] Last Admin: 05/25/17 08:45 Dose: 100 mg Vitamin B Complex/Vit C/Folic Acid (Nephro-Yemi) 1 tab PO DAILY [facility] Last Admin: 05/25/17 08:43 Dose: 1 tab - Labs Labs: 05/22/17 06:26 05/22/17 06:26 PT 10.6 Seconds (9.8-13.1) 05/10/17 05:45 INR 0.9 (0.9-1.2) 05/10/17 05:45 APTT 55.3 SECONDS (23.3-32.5) H 04/04/17 04:35 - Constitutional Appears: Non-toxic, No Acute Distress - Neck Exam Additional comments: Right IJ dialysis catheter in place - Respiratory Exam Respiratory Exam: NORMAL BREATHING PATTERN. 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 - Right IJ Dialysis catheter in place - Right PICC in place - Left arm precautions - Vein mapping done - Will plan for AV Fistula, date to be determined by Dr. Fernandes - Discussed plan with Dr. Dena Massey PGY-3 <Manuel Fernandes - Last Filed: 05/25/17 17:05> Objective - Vital Signs/Intake and Output Vital Signs (last 24 hours): Temp Pulse Resp BP Pulse Ox 98.0 F 75 17 139/70 96 05/25/17 16:12 05/25/17 16:12 05/25/17 16:12 05/25/17 16:12 05/25/17 16:12 - Medications Medications: Current Medications Amlodipine Besylate (Norvasc) 10 mg PO DAILY [facility] Last Admin: 05/25/17 08:45 Dose: 10 mg Aspirin (Aspirin Chewable) 81 mg PO DAILY [facility] Last Admin: 05/25/17 08:44 Dose: 81 mg Atorvastatin Calcium (Lipitor) 20 mg PO HS [facility] Last Admin: 05/24/17 21:16 Dose: 20 mg Carvedilol (Coreg) 6.25 mg PO Q12 [facility] Last Admin: 05/25/17 08:43 Dose: 6.25 mg Citalopram Hydrobromide (Celexa) 20 mg PO DAILY [facility] Last Admin: 05/25/17 08:44 Dose: 20 mg Clonidine HCl (Catapres) 0.3 mg PO TID [facility] Last Admin: 05/25/17 13:24 Dose: 0.3 mg Clopidogrel Bisulfate (Plavix) 75 mg PO DAILY [facility] Last Admin: 05/25/17 08:44 Dose: 75 mg Docusate Sodium (Colace) 100 mg PO DAILY [facility] Last Admin: 05/25/17 08:45 Dose: 100 mg Epoetin José Manuel (Procrit) 10,000 unit IV MWF [facility] Last Admin: 05/24/17 08:30 Dose: 10,000 unit Ergocalciferol (Drisdol 50,000 Intl Units Cap) 1 cap PO Q7D [facility] Last Admin: 05/20/17 16:27 Dose: 1 cap Guaifenesin/Dextromethorphan (Robitussin Dm) 10 ml PO Q4 PRN PRN Reason: Cough Last Admin: 05/21/17 21:05 Dose: 10 ml Heparin Sodium (Porcine) (Heparin) 5,000 units SC Q12 [facility] PRN Reason: Protocol Last Admin: 05/25/17 08:43 Dose: 5,000 units Hydralazine HCl (Apresoline) 100 mg PO Q8 [facility] Last Admin: 05/25/17 08:42 Dose: 100 mg Ipratropium [place] (Atrovent) 0.5 mg IH RQ6 PRN PRN Reason: Wheezing Last Admin: 05/21/17 04:43 Dose: 0.5 mg Lactulose (Enulose) 20 gm PO BID PRN PRN Reason: Constipation Last Admin: 05/22/17 06:20 Dose: 20 gm Lidocaine (Lidoderm) 1 ea TD DAILY PRN PRN Reason: Pain, moderate (4-7) Last Admin: 05/25/17 08:47 Dose: 1 ea Metolazone (Zaroxolyn) 5 mg PO DAILY [facility] Last Admin: 05/25/17 08:46 Dose: 5 mg Mupirocin (Bactroban Ointment) 1 applic TOP BID [facility] Last Admin: 05/25/17 08:45 Dose: 1 applic Nitroglycerin (Nitro-Bid 2% Oint) 1 ea TOP Q6 [facility] Pantoprazole Sodium (Protonix Ec Tab) 40 mg PO DAILY [facility] Last Admin: 05/25/17 08:45 Dose: 40 mg Prednisone (Prednisone Tab) 10 mg PO DAILY [facility] Last Admin: 05/25/17 08:45 Dose: 10 mg Fluticasone/Salmeterol (Advair Diskus 500/50) 1 puff IH Q12 [facility] Last Admin: 05/25/17 08:42 Dose: 1 puff Sevelamer Carbonate (Renvela) 1.6 gm PO TIDWM [facility] Last Admin: 05/20/17 19:08 Dose: Not Given Sevelamer HCl (Renagel) 1,600 mg PO TIDWM [facility] Last Admin: 05/25/17 13:24 Dose: 1,600 mg Spironolactone (Aldactone) 50 mg PO DAILY [facility] Last Admin: 05/25/17 08:43 Dose: 50 mg Torsemide (Demadex) 100 mg PO DAILY [facility] Last Admin: 05/25/17 08:45 Dose: 100 mg Vitamin B Complex/Vit C/Folic Acid (Nephro-Yemi) 1 tab PO DAILY [facility] Last Admin: 05/25/17 08:43 Dose: 1 tab - Labs Labs: 05/22/17 06:26 05/22/17 06:26 PT 10.6 Seconds (9.8-13.1) 05/10/17 05:45 INR 0.9 (0.9-1.2) 05/10/17 05:45 APTT 55.3 SECONDS (23.3-32.5) H 04/04/17 04:35 Assessment and Plan - Assessment and Plan (Free Text) Plan: Agree with above. Plan to proceed with hemodialysis access placement early next week. NO IV's in the left upper extremity please.
--- NOTE | 2017-05-25 19:04 | CP.PCM.PN ---
Subjective - Date & Time of Evaluation Date of Evaluation: 05/25/17 Time of Evaluation: 09:00 - Subjective Subjective: Pt seen and evaluated at bedside this morning, does not have any complaints. pt was seen by vascular surgery team, date of fistula still pending. nurses notes reviewed, consult notes reviewed. Objective - Vital Signs/Intake and Output Vital Signs (last 24 hours): Temp Pulse Resp BP Pulse Ox 98.0 F 75 17 139/70 96 05/25/17 16:12 05/25/17 17:03 05/25/17 16:12 05/25/17 17:03 05/25/17 16:12 - Medications Medications: Current Medications Amlodipine Besylate (Norvasc) 10 mg PO DAILY [facility] Last Admin: 05/25/17 08:45 Dose: 10 mg Aspirin (Aspirin Chewable) 81 mg PO DAILY [facility] Last Admin: 05/25/17 08:44 Dose: 81 mg Atorvastatin Calcium (Lipitor) 20 mg PO HS [facility] Last Admin: 05/24/17 21:16 Dose: 20 mg Carvedilol (Coreg) 6.25 mg PO Q12 [facility] Last Admin: 05/25/17 08:43 Dose: 6.25 mg Citalopram Hydrobromide (Celexa) 20 mg PO DAILY [facility] Last Admin: 05/25/17 08:44 Dose: 20 mg Clonidine HCl (Catapres) 0.3 mg PO TID [facility] Last Admin: 05/25/17 17:02 Dose: 0.3 mg Clopidogrel Bisulfate (Plavix) 75 mg PO DAILY [facility] Last Admin: 05/25/17 08:44 Dose: 75 mg Docusate Sodium (Colace) 100 mg PO DAILY [facility] Last Admin: 05/25/17 08:45 Dose: 100 mg Epoetin José [place] (Procrit) 10,000 unit IV MWF [facility] Last Admin: 05/24/17 08:30 Dose: 10,000 unit Ergocalciferol (Drisdol 50,000 Intl Units Cap) 1 cap PO Q7D [facility] Last Admin: 05/20/17 16:27 Dose: 1 cap Guaifenesin/Dextromethorphan (Robitussin Dm) 10 ml PO Q4 PRN PRN Reason: Cough Last Admin: 05/21/17 21:05 Dose: 10 ml Heparin Sodium (Porcine) (Heparin) 5,000 units SC Q12 [facility] PRN Reason: Protocol Last Admin: 05/25/17 08:43 Dose: 5,000 units Hydralazine HCl (Apresoline) 100 mg PO Q8 [facility] Last Admin: 05/25/17 17:02 Dose: 100 mg Ipratropium [place] (Atrovent) 0.5 mg IH RQ6 PRN PRN Reason: Wheezing Last Admin: 05/21/17 04:43 Dose: 0.5 mg Lactulose (Enulose) 20 gm PO BID PRN PRN Reason: Constipation Last Admin: 05/22/17 06:20 Dose: 20 gm Lidocaine (Lidoderm) 1 ea TD DAILY PRN PRN Reason: Pain, moderate (4-7) Last Admin: 05/25/17 08:47 Dose: 1 ea Metolazone (Zaroxolyn) 5 mg PO DAILY [facility] Last Admin: 05/25/17 08:46 Dose: 5 mg Mupirocin (Bactroban Ointment) 1 applic TOP BID [facility] Last Admin: 05/25/17 17:02 Dose: 1 applic Nitroglycerin (Nitro-Bid 2% Oint) 1 ea TOP Q6 [facility] Last Admin: 05/25/17 17:03 Dose: 1 ea Pantoprazole Sodium (Protonix Ec Tab) 40 mg PO DAILY [facility] Last Admin: 05/25/17 08:45 Dose: 40 mg Prednisone (Prednisone Tab) 10 mg PO DAILY [facility] Last Admin: 05/25/17 08:45 Dose: 10 mg Fluticasone/Salmeterol (Advair Diskus 500/50) 1 puff IH Q12 [facility] Last Admin: 05/25/17 08:42 Dose: 1 puff Sevelamer Carbonate (Renvela) 1.6 gm PO TIDWM [facility] Last Admin: 05/20/17 19:08 Dose: Not Given Sevelamer HCl (Renagel) 1,600 mg PO TIDWM [facility] Last Admin: 05/25/17 17:03 Dose: 1,600 mg Spironolactone (Aldactone) 50 mg PO DAILY [facility] Last Admin: 05/25/17 08:43 Dose: 50 mg Torsemide (Demadex) 100 mg PO DAILY [facility] Last Admin: 05/25/17 08:45 Dose: 100 mg Vitamin B Complex/Vit C/Folic Acid (Nephro-Yemi) 1 tab PO DAILY [facility] Last Admin: 05/25/17 08:43 Dose: 1 tab - Labs Labs: 05/22/17 06:26 05/22/17 06:26 PT 10.6 Seconds (9.8-13.1) 05/10/17 05:45 INR 0.9 (0.9-1.2) 05/10/17 05:45 APTT 55.3 SECONDS (23.3-32.5) H 04/04/17 04:35 - Constitutional Appears: Non-toxic, No Acute Distress - Head Exam Head Exam: NORMOCEPHALIC - Eye Exam Eye Exam: Normal appearance - ENT Exam ENT Exam: Mucous Membranes Moist - Respiratory Exam Respiratory Exam: Clear to Ausculation Bilateral, NORMAL BREATHING PATTERN. absent: Wheezes - Cardiovascular Exam Cardiovascular Exam: REGULAR RHYTHM, +S1, +S2 - GI/Abdominal Exam GI & Abdominal Exam: Soft, Normal Bowel Sounds. 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 Patient now has ESRD and required hemodialysis 3 times per week for life. 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 Palm consulted today for fistula ; seen and evaluated pt, date for fistula pending Right Big Toe Injury -continue applying antibiotic topically on affected toe -podiatry recommendation appreciated Systolic CHF with Acute Exacerbation -stable, chronic -Echo 04/02/17: LVEF 30-35%, with generalized moderate hypokinesia particularly pronounced in the septum -Cardio consult appreciated Dr. Miles: patient is not a suitable candidate for invasive cardiac workup, recommend continue with Coreg 6.25mg Q12, Lipitor 20 mg PO QD, Plavix 75mg QD, Heparin 5,000 units SC BID -Continue Torsemide 100mg PO daily -Per Accountant Controller not a good candidate for MAN-i due to impaired renal function -Strict I/Os. -Daily weights COPD -stable, chronic -Prednisone 10mg PO QD, Advair, duonebs PRN -Could not find any evidence of failure on spirvia, pt seems to remember being on it and getting something else not sure of the reason, will do further investigation HTN -controlled -Cardio consult appreciated Dr. 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
[2017-05-26] MEDS: Nitroglycerin 2% Ointment Foilpak UD TOP SCH ×2 (03:57→11:18)
--- NOTE | 2017-05-26 08:00 | CP.PCM.PN ---
<MaheshLuisnajma - Last Filed: 05/26/17 07:57> Subjective - Date & Time of Evaluation Date of Evaluation: 05/26/17 Time of Evaluation: 07:58 - Subjective Subjective: Vascular surgery for Dr. Dena Johnson s&bruce [place]. Denies F/C/N/V/D/Cp/SOB. HD M W F. L arm precaution Objective - Vital Signs/Intake and Output Vital Signs (last 24 hours): Temp Pulse Resp BP Pulse Ox 98.2 F 70 20 131/72 98 05/26/17 00:21 05/26/17 03:57 05/26/17 00:21 05/26/17 03:57 05/26/17 00:21 - Medications Medications: Current Medications Amlodipine Besylate (Norvasc) 10 mg PO DAILY [facility] Last Admin: 05/25/17 08:45 Dose: 10 mg Aspirin (Aspirin Chewable) 81 mg PO DAILY [facility] Last Admin: 05/25/17 08:44 Dose: 81 mg Atorvastatin Calcium (Lipitor) 20 mg PO HS [facility] Last Admin: 05/25/17 21:13 Dose: 20 mg Carvedilol (Coreg) 6.25 mg PO Q12 [facility] Last Admin: 05/25/17 21:12 Dose: 6.25 mg Citalopram Hydrobromide (Celexa) 20 mg PO DAILY [facility] Last Admin: 05/25/17 08:44 Dose: 20 mg Clonidine HCl (Catapres) 0.3 mg PO TID [facility] Last Admin: 05/25/17 17:02 Dose: 0.3 mg Clopidogrel Bisulfate (Plavix) 75 mg PO DAILY [facility] Last Admin: 05/25/17 08:44 Dose: 75 mg Docusate Sodium (Colace) 100 mg PO DAILY [facility] Last Admin: 05/25/17 08:45 Dose: 100 mg Epoetin José Manuel (Procrit) 10,000 unit IV MWF [facility] Last Admin: 05/24/17 08:30 Dose: 10,000 unit Ergocalciferol (Drisdol 50,000 Intl Units Cap) 1 cap PO Q7D [facility] Last Admin: 05/20/17 16:27 Dose: 1 cap Guaifenesin/Dextromethorphan (Robitussin Dm) 10 ml PO Q4 PRN PRN Reason: Cough Last Admin: 05/21/17 21:05 Dose: 10 ml Heparin Sodium (Porcine) (Heparin) 5,000 units SC Q12 [facility] PRN Reason: Protocol Last Admin: 05/25/17 21:13 Dose: 5,000 units Hydralazine HCl (Apresoline) 100 mg PO Q8 [facility] Last Admin: 05/26/17 01:10 Dose: 100 mg Ipratropium [place] (Atrovent) 0.5 mg IH RQ6 PRN PRN Reason: Wheezing Last Admin: 05/21/17 04:43 Dose: 0.5 mg Lactulose (Enulose) 20 gm PO BID PRN PRN Reason: Constipation Last Admin: 05/22/17 06:20 Dose: 20 gm Lidocaine (Lidoderm) 1 ea TD DAILY PRN PRN Reason: Pain, moderate (4-7) Last Admin: 05/25/17 08:47 Dose: 1 ea Metolazone (Zaroxolyn) 5 mg PO DAILY [facility] Last Admin: 05/25/17 08:46 Dose: 5 mg Mupirocin (Bactroban Ointment) 1 applic TOP BID [facility] Last Admin: 05/25/17 17:02 Dose: 1 applic Nitroglycerin (Nitro-Bid 2% Oint) 1 ea TOP Q6 [facility] Last Admin: 05/26/17 03:57 Dose: 1 ea Pantoprazole Sodium (Protonix Ec Tab) 40 mg PO DAILY [facility] Last Admin: 05/25/17 08:45 Dose: 40 mg Prednisone (Prednisone Tab) 10 mg PO DAILY [facility] Last Admin: 05/25/17 08:45 Dose: 10 mg Fluticasone/Salmeterol (Advair Diskus 500/50) 1 puff IH Q12 [facility] Last Admin: 05/25/17 21:12 Dose: 1 puff Sevelamer Carbonate (Renvela) 1.6 gm PO TIDWM [facility] Last Admin: 05/20/17 19:08 Dose: Not Given Sevelamer HCl (Renagel) 1,600 mg PO TIDWM [facility] Last Admin: 05/25/17 17:03 Dose: 1,600 mg Spironolactone (Aldactone) 50 mg PO DAILY [facility] Last Admin: 05/25/17 08:43 Dose: 50 mg Torsemide (Demadex) 100 mg PO DAILY [facility] Last Admin: 05/25/17 08:45 Dose: 100 mg Vitamin B Complex/Vit C/Folic Acid (Nephro-Yemi) 1 tab PO DAILY [facility] Last Admin: 05/25/17 08:43 Dose: 1 tab - Labs Labs: 05/22/17 06:26 05/22/17 06:26 PT 10.6 Seconds (9.8-13.1) 05/10/17 05:45 INR 0.9 (0.9-1.2) 05/10/17 05:45 APTT 55.3 SECONDS (23.3-32.5) H 04/04/17 04:35 - Constitutional Appears: No Acute Distress - Head Exam Head Exam: ATRAUMATIC, NORMAL INSPECTION, NORMOCEPHALIC - Eye Exam Eye Exam: EOMI, Normal appearance, PERRL Pupil Exam: NORMAL ACCOMODATION, PERRL - ENT Exam ENT Exam: Mucous Membranes Moist, Normal Exam - Neck Exam Neck Exam: Full ROM, Normal Inspection. absent: Lymphadenopathy - Respiratory Exam Respiratory Exam: Clear to Ausculation Bilateral, NORMAL BREATHING PATTERN - Cardiovascular Exam Cardiovascular Exam: REGULAR RHYTHM, +S1, +S2. absent: Murmur - GI/Abdominal Exam GI & Abdominal Exam: Soft, Normal Bowel Sounds. absent: Distended, Tenderness - Extremities Exam Extremities Exam: Full ROM, Normal Capillary Refill Additional comments: R arm PICC. R IJ HD cath. L arm precaution. 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 - Will Discuss with Dr. Fernandes <Manuel Fernandes - Last Filed: 05/26/17 13:47> Objective - Vital Signs/Intake and Output Vital Signs (last 24 hours): Temp Pulse Resp BP Pulse Ox 97.7 F 70 20 137/67 96 05/26/17 08:28 05/26/17 13:20 05/26/17 08:28 05/26/17 13:20 05/26/17 08:28 - Medications Medications: Current Medications Amlodipine Besylate (Norvasc) 10 mg PO DAILY [facility] Last Admin: 05/26/17 09:17 Dose: Not Given Aspirin (Aspirin Chewable) 81 mg PO DAILY [facility] Last Admin: 05/26/17 09:16 Dose: 81 mg Atorvastatin Calcium (Lipitor) 20 mg PO HS [facility] Last Admin: 05/25/17 21:13 Dose: 20 mg Carvedilol (Coreg) 6.25 mg PO Q12 [facility] Last Admin: 05/26/17 09:24 Dose: Not Given Citalopram Hydrobromide (Celexa) 20 mg PO DAILY [facility] Last Admin: 05/26/17 09:18 Dose: 20 mg Clonidine HCl (Catapres) 0.3 mg PO TID [facility] Last Admin: 05/26/17 13:20 Dose: 0.3 mg Clopidogrel Bisulfate (Plavix) 75 mg PO DAILY [facility] Last Admin: 05/26/17 09:22 Dose: 75 mg Docusate Sodium (Colace) 100 mg PO DAILY [facility] Last Admin: 05/26/17 13:21 Dose: 100 mg Epoetin José Manuel (Procrit) 10,000 unit IV MWF [facility] Last Admin: 05/26/17 13:23 Dose: 10,000 unit Ergocalciferol (Drisdol 50,000 Intl Units Cap) 1 cap PO Q7D [facility] Last Admin: 05/20/17 16:27 Dose: 1 cap Guaifenesin/Dextromethorphan (Robitussin Dm) 10 ml PO Q4 PRN PRN Reason: Cough Last Admin: 05/21/17 21:05 Dose: 10 ml Heparin Sodium (Porcine) (Heparin) 5,000 units SC Q12 [facility] PRN Reason: Protocol Last Admin: 05/26/17 09:18 Dose: 5,000 units Hydralazine HCl (Apresoline) 100 mg PO Q8 [facility] Last Admin: 05/26/17 09:16 Dose: Not Given Ipratropium [place] (Atrovent) 0.5 mg IH RQ6 PRN PRN Reason: Wheezing Last Admin: 05/21/17 04:43 Dose: 0.5 mg Lactulose (Enulose) 20 gm PO BID PRN PRN Reason: Constipation Last Admin: 05/22/17 06:20 Dose: 20 gm Lidocaine (Lidoderm) 1 ea TD DAILY PRN PRN Reason: Pain, moderate (4-7) Last Admin: 05/25/17 08:47 Dose: 1 ea Metolazone (Zaroxolyn) 5 mg PO DAILY [facility] Last Admin: 05/26/17 13:23 Dose: 5 mg Mupirocin (Bactroban Ointment) 1 applic TOP BID [facility] Last Admin: 05/26/17 09:16 Dose: 1 applic Nitroglycerin (Nitro-Bid 2% Oint) 1 ea TOP Q6 [facility] Last Admin: 05/26/17 11:18 Dose: Not Given Pantoprazole Sodium (Protonix Ec Tab) 40 mg PO DAILY [facility] Last Admin: 05/26/17 09:21 Dose: 40 mg Prednisone (Prednisone Tab) 10 mg PO DAILY [facility] Last Admin: 05/26/17 13:24 Dose: 10 mg Fluticasone/Salmeterol (Advair Diskus 500/50) 1 puff IH Q12 [facility] Last Admin: 05/26/17 09:15 Dose: 1 puff Sevelamer Carbonate (Renvela) 1.6 gm PO TIDWM [facility] Last Admin: 05/20/17 19:08 Dose: Not Given Sevelamer HCl (Renagel) 1,600 mg PO TIDWM [facility] Last Admin: 05/26/17 13:22 Dose: 1,600 mg Spironolactone (Aldactone) 50 mg PO DAILY [facility] Last Admin: 05/26/17 09:16 Dose: Not Given Torsemide (Demadex) 100 mg PO DAILY [facility] Last Admin: 05/26/17 11:18 Dose: Not Given Vitamin B Complex/Vit C/Folic Acid (Nephro-Yemi) 1 tab PO DAILY [facility] Last Admin: 05/26/17 13:21 Dose: 1 tab - Labs Labs: 05/22/17 06:26 05/22/17 06:26 PT 10.6 Seconds (9.8-13.1) 05/10/17 05:45 INR 0.9 (0.9-1.2) 05/10/17 05:45 APTT 55.3 SECONDS (23.3-32.5) H 04/04/17 04:35 Assessment and Plan - Assessment and Plan (Free Text) Plan: Patient remains clinically stable overall. He is being dialyzed via right-sided dialysis catheter. I'll plan to proceed with AV fistula placement for dialysis on Monday next week. Will pre-op and consent.
[2017-05-26] MEDS: Fluticasone-Salmeterol 500-50mcg Diskus IH SCH ×2 (09:15→21:08)
[2017-05-26] MEDS: Multivitamin Vitamin B Complex (Nephro-Vite) Tab PO SCH ×2 (09:19→13:21)
[2017-05-26] MEDS: Pantoprazole 40 mg EC Tab PO SCH (09:21)
[2017-05-26] MEDS: metOLazone 5 MG TAB PO SCH ×2 (09:22→13:23)
[2017-05-26] MEDS: EPOETIN ALFA 10,000 UNIT/ML ML IV SCH (13:23)
[2017-05-26] MEDS: Nitroglycerin 2% 15 INCH/30 GM TUBE TOP SCH ×2 (17:28→21:10)
--- NOTE | 2017-05-26 18:14 | CP.PCM.PN ---
<Rebekah Watson - Last Filed: 05/26/17 18:15> Subjective - Date & Time of Evaluation Date of Evaluation: 05/26/17 Time of Evaluation: 08:25 - Subjective Subjective: Pt seen and examined at bedside, does not have any complaints. for dialysis today. Vascular plans on doing AV fistula on monday. Pt remains stable, no overnight acute events. Objective - Vital Signs/Intake and Output Vital Signs (last 24 hours): Temp Pulse Resp BP Pulse Ox 98.7 F 72 18 120/65 97 05/26/17 17:00 05/26/17 17:07 05/26/17 17:00 05/26/17 17:07 05/26/17 17:00 - Medications Medications: Current Medications Amlodipine Besylate (Norvasc) 10 mg PO DAILY [facility] Last Admin: 05/26/17 09:17 Dose: Not Given Aspirin (Aspirin Chewable) 81 mg PO DAILY [facility] Last Admin: 05/26/17 09:16 Dose: 81 mg Atorvastatin Calcium (Lipitor) 20 mg PO HS [facility] Last Admin: 05/25/17 21:13 Dose: 20 mg Carvedilol (Coreg) 6.25 mg PO Q12 [facility] Last Admin: 05/26/17 09:24 Dose: Not Given Citalopram Hydrobromide (Celexa) 20 mg PO DAILY [facility] Last Admin: 05/26/17 09:18 Dose: 20 mg Clonidine HCl (Catapres) 0.3 mg PO TID [facility] Last Admin: 05/26/17 17:07 Dose: 0.3 mg Clopidogrel Bisulfate (Plavix) 75 mg PO DAILY [facility] Last Admin: 05/26/17 09:22 Dose: 75 mg Docusate Sodium (Colace) 100 mg PO DAILY [facility] Last Admin: 05/26/17 13:21 Dose: 100 mg Epoetin [place] (Procrit) 10,000 unit IV MWF [facility] Last Admin: 05/26/17 13:23 Dose: 10,000 unit Ergocalciferol (Drisdol 50,000 Intl Units Cap) 1 cap PO Q7D [facility] Last Admin: 05/20/17 16:27 Dose: 1 cap Guaifenesin/Dextromethorphan (Robitussin Dm) 10 ml PO Q4 PRN PRN Reason: Cough Last Admin: 05/21/17 21:05 Dose: 10 ml Heparin Sodium (Porcine) (Heparin) 5,000 units SC Q12 [facility] PRN Reason: Protocol Last Admin: 05/26/17 09:18 Dose: 5,000 units Hydralazine HCl (Apresoline) 100 mg PO Q8 [facility] Last Admin: 05/26/17 17:06 Dose: 100 mg Ipratropium [place] (Atrovent) 0.5 mg IH RQ6 PRN PRN Reason: Wheezing Last Admin: 05/21/17 04:43 Dose: 0.5 mg Lactulose (Enulose) 20 gm PO BID PRN PRN Reason: Constipation Last Admin: 05/22/17 06:20 Dose: 20 gm Lidocaine (Lidoderm) 1 ea TD DAILY PRN PRN Reason: Pain, moderate (4-7) Last Admin: 05/25/17 08:47 Dose: 1 ea Metolazone (Zaroxolyn) 5 mg PO DAILY [facility] Last Admin: 05/26/17 13:23 Dose: 5 mg Mupirocin (Bactroban Ointment) 1 applic TOP BID [facility] Last Admin: 05/26/17 17:07 Dose: 1 applic Nitroglycerin (Nitro-Bid 2% Oint) 1 inch TOP Q6 [facility] Last Admin: 05/26/17 17:28 Dose: 1 inch Pantoprazole Sodium (Protonix Ec Tab) 40 mg PO DAILY [facility] Last Admin: 05/26/17 09:21 Dose: 40 mg Prednisone (Prednisone Tab) 10 mg PO DAILY [facility] Last Admin: 05/26/17 13:24 Dose: 10 mg Fluticasone/Salmeterol (Advair Diskus 500/50) 1 puff IH Q12 [facility] Last Admin: 05/26/17 09:15 Dose: 1 puff Sevelamer Carbonate (Renvela) 1.6 gm PO TIDWM [facility] Last Admin: 05/20/17 19:08 Dose: Not Given Sevelamer HCl (Renagel) 1,600 mg PO TIDWM [facility] Last Admin: 05/26/17 17:13 Dose: 1,600 mg Spironolactone (Aldactone) 50 mg PO DAILY [facility] Last Admin: 05/26/17 09:16 Dose: Not Given Torsemide (Demadex) 100 mg PO DAILY [facility] Last Admin: 05/26/17 11:18 Dose: Not Given Vitamin B Complex/Vit C/Folic Acid (Nephro-Yemi) 1 tab PO DAILY [facility] Last Admin: 05/26/17 13:21 Dose: 1 tab - Labs Labs: 05/22/17 06:26 05/22/17 06:26 PT 10.6 Seconds (9.8-13.1) 05/10/17 05:45 INR 0.9 (0.9-1.2) 05/10/17 05:45 APTT 55.3 SECONDS (23.3-32.5) H 04/04/17 04:35 - Constitutional Appears: No Acute Distress - Head Exam Head Exam: NORMOCEPHALIC - Eye Exam Eye Exam: Normal appearance - ENT Exam ENT Exam: Mucous Membranes Moist - Respiratory Exam Respiratory Exam: Clear to Ausculation Bilateral, NORMAL BREATHING PATTERN. absent: Wheezes - Cardiovascular Exam Cardiovascular Exam: REGULAR RHYTHM, +S1, +S2 - GI/Abdominal Exam GI & Abdominal Exam: Soft, Normal Bowel Sounds. 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 Patient now has ESRD and required hemodialysis 3 times per week for life. 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 Palm consulted today for AV fistula ; seen and evaluated pt, tentative date 05/30/17 Systolic CHF with Acute Exacerbation -stable, chronic -Echo 04/02/17: LVEF 30-35%, with generalized moderate hypokinesia particularly pronounced in the septum -Cardio consult appreciated Dr. 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 -Daily weights COPD -stable, chronic -Prednisone 10mg PO QD, Advosbaldo awan PRN -Could not find any evidence of failure on spirvia, pt seems to remember being on it and getting something else not sure of the reason, will do further investigation HTN -controlled -Cardio consult appreciated Dr. 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 -RUE duplex 04/20/17: No evidence of vein thrombosis of the RUE with normal venous flow -Continue conservative treatment DVT/GI Prophylaxis -Heparin 5000 units SC Q12H -Pantoprazole 40mg PO QD <Chasity Boston - Last Filed: 05/27/17 09:42> Objective - Vital Signs/Intake and Output Vital Signs (last 24 hours): Temp Pulse Resp BP Pulse Ox 97.7 F 61 18 164/82 H 97 05/27/17 08:53 05/27/17 09:17 05/27/17 08:53 05/27/17 09:17 05/27/17 08:53 - Medications Medications: Current Medications Amlodipine Besylate (Norvasc) 10 mg PO DAILY [facility] Last Admin: 05/27/17 09:17 Dose: 10 mg Aspirin (Aspirin Chewable) 81 mg PO DAILY [facility] Last Admin: 05/27/17 09:24 Dose: 81 mg Atorvastatin Calcium (Lipitor) 20 mg PO HS [facility] Last Admin: 05/26/17 21:10 Dose: 20 mg Carvedilol (Coreg) 6.25 mg PO Q12 [facility] Last Admin: 05/27/17 09:13 Dose: 6.25 mg Citalopram Hydrobromide (Celexa) 20 mg PO DAILY [facility] Last Admin: 05/27/17 09:17 Dose: 20 mg Clonidine HCl (Catapres) 0.3 mg PO TID [facility] Last Admin: 05/27/17 09:14 Dose: 0.3 mg Clopidogrel Bisulfate (Plavix) 75 mg PO DAILY [facility] Last Admin: 05/27/17 09:17 Dose: 75 mg Docusate Sodium (Colace) 100 mg PO DAILY [facility] Last Admin: 05/27/17 09:16 Dose: 100 mg Epoetin [place] (Procrit) 10,000 unit IV MWF [facility] Last Admin: 05/26/17 13:23 Dose: 10,000 unit Ergocalciferol (Drisdol 50,000 Intl Units Cap) 1 cap PO Q7D [facility] Last Admin: 05/20/17 16:27 Dose: 1 cap Guaifenesin/Dextromethorphan (Robitussin Dm) 10 ml PO Q4 PRN PRN Reason: Cough Last Admin: 05/21/17 21:05 Dose: 10 ml Heparin Sodium (Porcine) (Heparin) 5,000 units SC Q12 [facility] PRN Reason: Protocol Last Admin: 05/27/17 09:24 Dose: 5,000 units Hydralazine HCl (Apresoline) 100 mg PO Q8 [facility] Last Admin: 05/27/17 09:13 Dose: 100 mg Ipratropium [place] (Atrovent) 0.5 mg IH RQ6 PRN PRN Reason: Wheezing Last Admin: 05/21/17 04:43 Dose: 0.5 mg Lactulose (Enulose) 20 gm PO BID PRN PRN Reason: Constipation Last Admin: 05/27/17 09:12 Dose: 20 gm Lidocaine (Lidoderm) 1 ea TD DAILY PRN PRN Reason: Pain, moderate (4-7) Last Admin: 05/25/17 08:47 Dose: 1 ea Metolazone (Zaroxolyn) 5 mg PO DAILY [facility] Last Admin: 05/27/17 09:15 Dose: 5 mg Mupirocin (Bactroban Ointment) 1 applic TOP BID [facility] Last Admin: 05/27/17 09:17 Dose: 1 applic Nitroglycerin (Nitro-Bid 2% Oint) 1 inch TOP Q6 [facility] Last Admin: 05/27/17 09:12 Dose: 1 inch Pantoprazole Sodium (Protonix Ec Tab) 40 mg PO DAILY [facility] Last Admin: 05/27/17 09:17 Dose: 40 mg Prednisone (Prednisone Tab) 10 mg PO DAILY [facility] Last Admin: 05/27/17 09:17 Dose: 10 mg Fluticasone/Salmeterol (Advair Diskus 500/50) 1 puff IH Q12 [facility] Last Admin: 05/27/17 09:12 Dose: 1 puff Sevelamer Carbonate (Renvela) 1.6 gm PO TIDWM [facility] Last Admin: 05/20/17 19:08 Dose: Not Given Sevelamer HCl (Renagel) 1,600 mg PO TIDWM [facility] Last Admin: 05/27/17 09:14 Dose: 1,600 mg Spironolactone (Aldactone) 50 mg PO DAILY [facility] Last Admin: 05/27/17 09:15 Dose: 50 mg Torsemide (Demadex) 100 mg PO DAILY [facility] Last Admin: 05/27/17 09:15 Dose: 100 mg Vitamin B Complex/Vit C/Folic Acid (Nephro-Yemi) 1 tab PO DAILY [facility] Last Admin: 05/27/17 09:16 Dose: 1 tab - Labs Labs: 05/22/17 06:26 05/22/17 06:26 PT 10.6 Seconds (9.8-13.1) 05/10/17 05:45 INR 0.9 (0.9-1.2) 05/10/17 05:45 APTT 55.3 SECONDS (23.3-32.5) H 04/04/17 04:35 Assessment and Plan - Assessment and Plan (Free Text) Plan: ATTENDING NOTE. ADDENDUM PATIENT SEEN AND EXAMINED. CASE DISCUSSED WITH RESIDENT. AGREE WITH FINDINGS AND PLAN.
[2017-05-27] MEDS: Nitroglycerin 2% 15 INCH/30 GM TUBE TOP SCH ×4 (04:50→21:50)
[2017-05-27] MEDS: Fluticasone-Salmeterol 500-50mcg Diskus IH SCH ×2 (09:12→21:49)
[2017-05-27] MEDS: metOLazone 5 MG TAB PO SCH (09:15)
[2017-05-27] MEDS: Multivitamin Vitamin B Complex (Nephro-Vite) Tab PO SCH (09:16)
[2017-05-27] MEDS: Pantoprazole 40 mg EC Tab PO SCH (09:17)
--- NOTE | 2017-05-27 10:12 | CP.PCM.PN ---
<Aruna Aragon - Last Filed: 05/27/17 10:11> Subjective - Date & Time of Evaluation Date of Evaluation: 05/27/17 Time of Evaluation: 10:11 - Subjective Subjective: Vascular surgery for Dr. Dena PARADA. L arm precaution. Objective - Vital Signs/Intake and Output Vital Signs (last 24 hours): Temp Pulse Resp BP Pulse Ox 97.7 F 61 18 164/82 H 97 05/27/17 08:53 05/27/17 09:17 05/27/17 08:53 05/27/17 09:17 05/27/17 08:53 - Medications Medications: Current Medications Amlodipine Besylate (Norvasc) 10 mg PO DAILY [facility] Last Admin: 05/27/17 09:17 Dose: 10 mg Aspirin (Aspirin Chewable) 81 mg PO DAILY [facility] Last Admin: 05/27/17 09:24 Dose: 81 mg Atorvastatin Calcium (Lipitor) 20 mg PO HS [facility] Last Admin: 05/26/17 21:10 Dose: 20 mg Carvedilol (Coreg) 6.25 mg PO Q12 [facility] Last Admin: 05/27/17 09:13 Dose: 6.25 mg Citalopram Hydrobromide (Celexa) 20 mg PO DAILY [facility] Last Admin: 05/27/17 09:17 Dose: 20 mg Clonidine HCl (Catapres) 0.3 mg PO TID [facility] Last Admin: 05/27/17 09:14 Dose: 0.3 mg Clopidogrel Bisulfate (Plavix) 75 mg PO DAILY [facility] Last Admin: 05/27/17 09:17 Dose: 75 mg Docusate Sodium (Colace) 100 mg PO DAILY [facility] Last Admin: 05/27/17 09:16 Dose: 100 mg Epoetin José Manuel (Procrit) 10,000 unit IV MWF [facility] Last Admin: 05/26/17 13:23 Dose: 10,000 unit Ergocalciferol (Drisdol 50,000 Intl Units Cap) 1 cap PO Q7D [facility] Last Admin: 05/20/17 16:27 Dose: 1 cap Guaifenesin/Dextromethorphan (Robitussin Dm) 10 ml PO Q4 PRN PRN Reason: Cough Last Admin: 05/21/17 21:05 Dose: 10 ml Heparin Sodium (Porcine) (Heparin) 5,000 units SC Q12 [facility] PRN Reason: Protocol Last Admin: 05/27/17 09:24 Dose: 5,000 units Hydralazine HCl (Apresoline) 100 mg PO Q8 [facility] Last Admin: 05/27/17 09:13 Dose: 100 mg Ipratropium [place] (Atrovent) 0.5 mg IH RQ6 PRN PRN Reason: Wheezing Last Admin: 05/21/17 04:43 Dose: 0.5 mg Lactulose (Enulose) 20 gm PO BID PRN PRN Reason: Constipation Last Admin: 05/27/17 09:12 Dose: 20 gm Lidocaine (Lidoderm) 1 ea TD DAILY PRN PRN Reason: Pain, moderate (4-7) Last Admin: 05/25/17 08:47 Dose: 1 ea Metolazone (Zaroxolyn) 5 mg PO DAILY [facility] Last Admin: 05/27/17 09:15 Dose: 5 mg Mupirocin (Bactroban Ointment) 1 applic TOP BID [facility] Last Admin: 05/27/17 09:17 Dose: 1 applic Nitroglycerin (Nitro-Bid 2% Oint) 1 inch TOP Q6 [facility] Last Admin: 05/27/17 09:12 Dose: 1 inch Pantoprazole Sodium (Protonix Ec Tab) 40 mg PO DAILY [facility] Last Admin: 05/27/17 09:17 Dose: 40 mg Prednisone (Prednisone Tab) 10 mg PO DAILY [facility] Last Admin: 05/27/17 09:17 Dose: 10 mg Fluticasone/Salmeterol (Advair Diskus 500/50) 1 puff IH Q12 [facility] Last Admin: 05/27/17 09:12 Dose: 1 puff Sevelamer Carbonate (Renvela) 1.6 gm PO TIDWM [facility] Last Admin: 05/20/17 19:08 Dose: Not Given Sevelamer HCl (Renagel) 1,600 mg PO TIDWM [facility] Last Admin: 05/27/17 09:14 Dose: 1,600 mg Spironolactone (Aldactone) 50 mg PO DAILY [facility] Last Admin: 05/27/17 09:15 Dose: 50 mg Torsemide (Demadex) 100 mg PO DAILY [facility] Last Admin: 05/27/17 09:15 Dose: 100 mg Vitamin B Complex/Vit C/Folic Acid (Nephro-Yemi) 1 tab PO DAILY [facility] Last Admin: 05/27/17 09:16 Dose: 1 tab - Labs Labs: 05/22/17 06:26 05/22/17 06:26 PT 10.6 Seconds (9.8-13.1) 05/10/17 05:45 INR 0.9 (0.9-1.2) 05/10/17 05:45 APTT 55.3 SECONDS (23.3-32.5) H 04/04/17 04:35 - Constitutional Appears: No Acute Distress - Head Exam Head Exam: ATRAUMATIC, NORMAL INSPECTION, NORMOCEPHALIC - Eye Exam Eye Exam: EOMI, Normal appearance, PERRL Pupil Exam: NORMAL ACCOMODATION, PERRL - ENT Exam ENT Exam: Mucous Membranes Moist, Normal Exam - Neck Exam Neck Exam: Full ROM. absent: Lymphadenopathy Additional comments: R IJ HD cathater - Cardiovascular Exam Cardiovascular Exam: REGULAR RHYTHM - GI/Abdominal Exam GI & Abdominal Exam: Soft, Normal Bowel Sounds. absent: Tenderness - Extremities Exam Extremities Exam: Full ROM, Normal Capillary Refill. 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 - Will Discuss with Dr. Fernandes <Manuel Fernandes - Last Filed: 05/27/17 13:58> Objective - Vital Signs/Intake and Output Vital Signs (last 24 hours): Temp Pulse Resp BP Pulse Ox 97.7 F 80 18 110/60 97 05/27/17 08:53 05/27/17 12:31 05/27/17 08:53 05/27/17 12:31 05/27/17 08:53 - Medications Medications: Current Medications Amlodipine Besylate (Norvasc) 10 mg PO DAILY [facility] Last Admin: 05/27/17 09:17 Dose: 10 mg Aspirin (Aspirin Chewable) 81 mg PO DAILY [facility] Last Admin: 05/27/17 09:24 Dose: 81 mg Atorvastatin Calcium (Lipitor) 20 mg PO HS [facility] Last Admin: 05/26/17 21:10 Dose: 20 mg Carvedilol (Coreg) 6.25 mg PO Q12 [facility] Last Admin: 05/27/17 09:13 Dose: 6.25 mg Citalopram Hydrobromide (Celexa) 20 mg PO DAILY [facility] Last Admin: 05/27/17 09:17 Dose: 20 mg Clonidine HCl (Catapres) 0.3 mg PO TID [facility] Last Admin: 05/27/17 12:31 Dose: 0.3 mg Clopidogrel Bisulfate (Plavix) 75 mg PO DAILY [facility] Last Admin: 05/27/17 09:17 Dose: 75 mg Docusate Sodium (Colace) 100 mg PO DAILY [facility] Last Admin: 05/27/17 09:16 Dose: 100 mg Epoetin José Manuel (Procrit) 10,000 unit IV MWF [facility] Last Admin: 05/26/17 13:23 Dose: 10,000 unit Ergocalciferol (Drisdol 50,000 Intl Units Cap) 1 cap PO Q7D [facility] Last Admin: 05/20/17 16:27 Dose: 1 cap Guaifenesin/Dextromethorphan (Robitussin Dm) 10 ml PO Q4 PRN PRN Reason: Cough Last Admin: 05/21/17 21:05 Dose: 10 ml Heparin Sodium (Porcine) (Heparin) 5,000 units SC Q12 [facility] PRN Reason: Protocol Last Admin: 05/27/17 09:24 Dose: 5,000 units Hydralazine HCl (Apresoline) 100 mg PO Q8 [facility] Last Admin: 05/27/17 09:13 Dose: 100 mg Ipratropium [place] (Atrovent) 0.5 mg IH RQ6 PRN PRN Reason: Wheezing Last Admin: 05/21/17 04:43 Dose: 0.5 mg Lactulose (Enulose) 20 gm PO BID PRN PRN Reason: Constipation Last Admin: 05/27/17 09:12 Dose: 20 gm Lidocaine (Lidoderm) 1 ea TD DAILY PRN PRN Reason: Pain, moderate (4-7) Last Admin: 05/25/17 08:47 Dose: 1 ea Metolazone (Zaroxolyn) 5 mg PO DAILY [facility] Last Admin: 05/27/17 09:15 Dose: 5 mg Mupirocin (Bactroban Ointment) 1 applic TOP BID [facility] Last Admin: 05/27/17 09:17 Dose: 1 applic Nitroglycerin (Nitro-Bid 2% Oint) 1 inch TOP Q6 [facility] Last Admin: 05/27/17 09:12 Dose: 1 inch Pantoprazole Sodium (Protonix Ec Tab) 40 mg PO DAILY [facility] Last Admin: 05/27/17 09:17 Dose: 40 mg Prednisone (Prednisone Tab) 10 mg PO DAILY [facility] Last Admin: 05/27/17 09:17 Dose: 10 mg Fluticasone/Salmeterol (Advair Diskus 500/50) 1 puff IH Q12 [facility] Last Admin: 05/27/17 09:12 Dose: 1 puff Sevelamer Carbonate (Renvela) 1.6 gm PO TIDWM [facility] Last Admin: 05/20/17 19:08 Dose: Not Given Sevelamer HCl (Renagel) 1,600 mg PO TIDWM [facility] Last Admin: 05/27/17 12:29 Dose: 1,600 mg Spironolactone (Aldactone) 50 mg PO DAILY [facility] Last Admin: 05/27/17 09:15 Dose: 50 mg Torsemide (Demadex) 100 mg PO DAILY [facility] Last Admin: 05/27/17 09:15 Dose: 100 mg Vitamin B Complex/Vit C/Folic Acid (Nephro-Yemi) 1 tab PO DAILY [facility] Last Admin: 05/27/17 09:16 Dose: 1 tab - Labs Labs: 05/22/17 06:26 05/22/17 06:26 PT 10.6 Seconds (9.8-13.1) 05/10/17 05:45 INR 0.9 (0.9-1.2) 05/10/17 05:45 APTT 55.3 SECONDS (23.3-32.5) H 04/04/17 04:35 Assessment and Plan - Assessment and Plan (Free Text) Assessment: Agree with above. Will plan for AV fistula placement early next week, likely Monday.
--- NOTE | 2017-05-27 13:20 | CP.PCM.PN ---
<Rebekah Watson - Last Filed: 05/27/17 13:20> Subjective - Date & Time of Evaluation Date of Evaluation: 05/27/17 Time of Evaluation: 10:00 - Subjective Subjective: Pt seen and examined at bedside, in good spirits, does not have any complaints. had dialysis yesterday, feeling well overall. denies any headaches, visual changes, sob, abdominal pain Objective - Vital Signs/Intake and Output Vital Signs (last 24 hours): Temp Pulse Resp BP Pulse Ox 97.7 F 80 18 110/60 97 05/27/17 08:53 05/27/17 12:31 05/27/17 08:53 05/27/17 12:31 05/27/17 08:53 - Medications Medications: Current Medications Amlodipine Besylate (Norvasc) 10 mg PO DAILY [facility] Last Admin: 05/27/17 09:17 Dose: 10 mg Aspirin (Aspirin Chewable) 81 mg PO DAILY [facility] Last Admin: 05/27/17 09:24 Dose: 81 mg Atorvastatin Calcium (Lipitor) 20 mg PO HS [facility] Last Admin: 05/26/17 21:10 Dose: 20 mg Carvedilol (Coreg) 6.25 mg PO Q12 [facility] Last Admin: 05/27/17 09:13 Dose: 6.25 mg Citalopram Hydrobromide (Celexa) 20 mg PO DAILY [facility] Last Admin: 05/27/17 09:17 Dose: 20 mg Clonidine HCl (Catapres) 0.3 mg PO TID [facility] Last Admin: 05/27/17 12:31 Dose: 0.3 mg Clopidogrel Bisulfate (Plavix) 75 mg PO DAILY [facility] Last Admin: 05/27/17 09:17 Dose: 75 mg Docusate Sodium (Colace) 100 mg PO DAILY [facility] Last Admin: 05/27/17 09:16 Dose: 100 mg Epoetin José Manuel (Procrit) 10,000 unit IV MWF [facility] Last Admin: 05/26/17 13:23 Dose: 10,000 unit Ergocalciferol (Drisdol 50,000 Intl Units Cap) 1 cap PO Q7D [facility] Last Admin: 05/20/17 16:27 Dose: 1 cap Guaifenesin/Dextromethorphan (Robitussin Dm) 10 ml PO Q4 PRN PRN Reason: Cough Last Admin: 05/21/17 21:05 Dose: 10 ml Heparin Sodium (Porcine) (Heparin) 5,000 units SC Q12 [facility] PRN Reason: Protocol Last Admin: 05/27/17 09:24 Dose: 5,000 units Hydralazine HCl (Apresoline) 100 mg PO Q8 [facility] Last Admin: 05/27/17 09:13 Dose: 100 mg Ipratropium [place] (Atrovent) 0.5 mg IH RQ6 PRN PRN Reason: Wheezing Last Admin: 05/21/17 04:43 Dose: 0.5 mg Lactulose (Enulose) 20 gm PO BID PRN PRN Reason: Constipation Last Admin: 05/27/17 09:12 Dose: 20 gm Lidocaine (Lidoderm) 1 ea TD DAILY PRN PRN Reason: Pain, moderate (4-7) Last Admin: 05/25/17 08:47 Dose: 1 ea Metolazone (Zaroxolyn) 5 mg PO DAILY [facility] Last Admin: 05/27/17 09:15 Dose: 5 mg Mupirocin (Bactroban Ointment) 1 applic TOP BID [facility] Last Admin: 05/27/17 09:17 Dose: 1 applic Nitroglycerin (Nitro-Bid 2% Oint) 1 inch TOP Q6 [facility] Last Admin: 05/27/17 09:12 Dose: 1 inch Pantoprazole Sodium (Protonix Ec Tab) 40 mg PO DAILY [facility] Last Admin: 05/27/17 09:17 Dose: 40 mg Prednisone (Prednisone Tab) 10 mg PO DAILY [facility] Last Admin: 05/27/17 09:17 Dose: 10 mg Fluticasone/Salmeterol (Advair Diskus 500/50) 1 puff IH Q12 [facility] Last Admin: 05/27/17 09:12 Dose: 1 puff Sevelamer Carbonate (Renvela) 1.6 gm PO TIDWM [facility] Last Admin: 05/20/17 19:08 Dose: Not Given Sevelamer HCl (Renagel) 1,600 mg PO TIDWM [facility] Last Admin: 05/27/17 12:29 Dose: 1,600 mg Spironolactone (Aldactone) 50 mg PO DAILY [facility] Last Admin: 05/27/17 09:15 Dose: 50 mg Torsemide (Demadex) 100 mg PO DAILY [facility] Last Admin: 05/27/17 09:15 Dose: 100 mg Vitamin B Complex/Vit C/Folic Acid (Nephro-Yemi) 1 tab PO DAILY [facility] Last Admin: 05/27/17 09:16 Dose: 1 tab - Labs Labs: 05/22/17 06:26 05/22/17 06:26 PT 10.6 Seconds (9.8-13.1) 05/10/17 05:45 INR 0.9 (0.9-1.2) 05/10/17 05:45 APTT 55.3 SECONDS (23.3-32.5) H 04/04/17 04:35 - Constitutional Appears: Non-toxic, No Acute Distress - Head Exam Head Exam: NORMOCEPHALIC - Eye Exam Eye Exam: Normal appearance - ENT Exam ENT Exam: Mucous Membranes Moist - Respiratory Exam Respiratory Exam: Clear to Ausculation Bilateral, NORMAL BREATHING PATTERN. absent: Wheezes - Cardiovascular Exam Cardiovascular Exam: REGULAR RHYTHM, +S1, +S2 - GI/Abdominal Exam GI & Abdominal Exam: Soft, Normal Bowel Sounds. 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 Patient now has ESRD and required hemodialysis 3 times per week for life. 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 Palm consulted today for AV fistula ; seen and evaluated pt, tentative date 05/30/17 Systolic CHF with Acute Exacerbation -stable, chronic -Echo 04/02/17: LVEF 30-35%, with generalized moderate hypokinesia particularly pronounced in the septum -Cardio consult appreciated Dr. Miles: patient is not a suitable candidate for invasive cardiac workup, recommend continue with Coreg 6.25mg Q12, Lipitor 20 mg PO QD, Plavix 75mg QD, Heparin 5,000 units SC BID -Continue Torsemide 100mg PO daily -Per Support Staff not a good candidate for MAN-i due to impaired renal function -Strict I/Os. -Daily weights COPD -stable, chronic -Prednisone 10mg PO QD, Advair, duonebs PRN -Could not find any evidence of failure on spirvia, pt seems to remember being on it and getting something else not sure of the reason, will do further investigation HTN -controlled -Cardio consult appreciated Dr. 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 associated with CKD -Asymptomatic, chronic, stable, S/p 2 units of pRBCs on 04/15/17 -H/H 9.7/28.9 (05/22/17) -continue to monitor H/H Hx of RUE DVT -RUE DVT detected on 02/04/17 however patient was not a good candidate for residential anticoagulation -RUE duplex 04/20/17: No evidence of vein thrombosis of the RUE with normal venous flow -Continue conservative treatment DVT/GI Prophylaxis -Heparin 5000 units SC Q12H -Pantoprazole 40mg PO QD <Chasity Boston - Last Filed: 05/28/17 08:48> Objective - Vital Signs/Intake and Output Vital Signs (last 24 hours): Temp Pulse Resp BP Pulse Ox 97.9 F 65 18 141/81 97 05/28/17 08:10 05/28/17 08:10 05/28/17 08:10 05/28/17 08:10 05/28/17 08:10 - Medications Medications: Current Medications Amlodipine Besylate (Norvasc) 10 mg PO DAILY [facility] Last Admin: 05/27/17 09:17 Dose: 10 mg Aspirin (Aspirin Chewable) 81 mg PO DAILY [facility] Last Admin: 05/27/17 09:24 Dose: 81 mg Atorvastatin Calcium (Lipitor) 20 mg PO HS [facility] Last Admin: 05/27/17 21:49 Dose: 20 mg Carvedilol (Coreg) 6.25 mg PO Q12 [facility] Last Admin: 05/27/17 21:50 Dose: 6.25 mg Citalopram Hydrobromide (Celexa) 20 mg PO DAILY [facility] Last Admin: 05/27/17 09:17 Dose: 20 mg Clonidine HCl (Catapres) 0.3 mg PO TID [facility] Last Admin: 05/27/17 16:30 Dose: 0.3 mg Clopidogrel Bisulfate (Plavix) 75 mg PO DAILY [facility] Last Admin: 05/27/17 09:17 Dose: 75 mg Docusate Sodium (Colace) 100 mg PO DAILY [facility] Last Admin: 05/27/17 09:16 Dose: 100 mg Epoetin José Manuel (Procrit) 10,000 unit IV MWF [facility] Last Admin: 05/26/17 13:23 Dose: 10,000 unit Ergocalciferol (Drisdol 50,000 Intl Units Cap) 1 cap PO Q7D [facility] Last Admin: 05/27/17 16:29 Dose: 1 cap Guaifenesin/Dextromethorphan (Robitussin Dm) 10 ml PO Q4 PRN PRN Reason: Cough Last Admin: 05/21/17 21:05 Dose: 10 ml Heparin Sodium (Porcine) (Heparin) 5,000 units SC Q12 [facility] PRN Reason: Protocol Last Admin: 05/27/17 21:50 Dose: 5,000 units Hydralazine HCl (Apresoline) 100 mg PO Q8 [facility] Last Admin: 05/28/17 01:05 Dose: 100 mg Ipratropium [place] (Atrovent) 0.5 mg IH RQ6 PRN PRN Reason: Wheezing Last Admin: 05/21/17 04:43 Dose: 0.5 mg Lactulose (Enulose) 20 gm PO BID PRN PRN Reason: Constipation Last Admin: 05/27/17 09:12 Dose: 20 gm Lidocaine (Lidoderm) 1 ea TD DAILY PRN PRN Reason: Pain, moderate (4-7) Last Admin: 05/25/17 08:47 Dose: 1 ea Metolazone (Zaroxolyn) 5 mg PO DAILY [facility] Last Admin: 05/27/17 09:15 Dose: 5 mg Mupirocin (Bactroban Ointment) 1 applic TOP BID [facility] Last Admin: 05/27/17 16:28 Dose: 1 applic Nitroglycerin (Nitro-Bid 2% Oint) 1 inch TOP Q6 [facility] Last Admin: 05/28/17 04:39 Dose: 1 inch Pantoprazole Sodium (Protonix Ec Tab) 40 mg PO DAILY [facility] Last Admin: 05/27/17 09:17 Dose: 40 mg Prednisone (Prednisone Tab) 10 mg PO DAILY [facility] Last Admin: 05/27/17 09:17 Dose: 10 mg Fluticasone/Salmeterol (Advair Diskus 500/50) 1 puff IH Q12 [facility] Last Admin: 05/27/17 21:49 Dose: 1 puff Sevelamer Carbonate (Renvela) 1.6 gm PO TIDWM [facility] Last Admin: 05/20/17 19:08 Dose: Not Given Sevelamer HCl (Renagel) 1,600 mg PO TIDWM [facility] Last Admin: 05/27/17 16:29 Dose: 1,600 mg Spironolactone (Aldactone) 50 mg PO DAILY [facility] Last Admin: 05/27/17 09:15 Dose: 50 mg Torsemide (Demadex) 100 mg PO DAILY [facility] Last Admin: 05/27/17 09:15 Dose: 100 mg Vitamin B Complex/Vit C/Folic Acid (Nephro-Yemi) 1 tab PO DAILY [facility] Last Admin: 05/27/17 09:16 Dose: 1 tab - Labs Labs: 05/22/17 06:26 05/22/17 06:26 PT 10.6 Seconds (9.8-13.1) 05/10/17 05:45 INR 0.9 (0.9-1.2) 05/10/17 05:45 APTT 55.3 SECONDS (23.3-32.5) H 04/04/17 04:35 Assessment and Plan - Assessment and Plan (Free Text) Assessment: ATTENDING NOTE. PATIENT SEEN AND EXAMINED. CASE DISCUSSED WITH RESIDENT. AGREE WITH FINDINGS AND PLAN.
--- NOTE | 2017-05-27 13:31 | CP.PCM.PN ---
Subjective - Date & Time of Evaluation Date of Evaluation: 05/27/17 Time of Evaluation: 01:15 - Subjective Subjective: No c/o SOB Comfortable supine Objective - Vital Signs/Intake and Output Vital Signs (last 24 hours): Temp Pulse Resp BP Pulse Ox 97.7 F 80 18 110/60 97 05/27/17 08:53 05/27/17 12:31 05/27/17 08:53 05/27/17 12:31 05/27/17 08:53 - Medications Medications: Current Medications Amlodipine Besylate (Norvasc) 10 mg PO DAILY [facility] Last Admin: 05/27/17 09:17 Dose: 10 mg Aspirin (Aspirin Chewable) 81 mg PO DAILY [facility] Last Admin: 05/27/17 09:24 Dose: 81 mg Atorvastatin Calcium (Lipitor) 20 mg PO HS [facility] Last Admin: 05/26/17 21:10 Dose: 20 mg Carvedilol (Coreg) 6.25 mg PO Q12 [facility] Last Admin: 05/27/17 09:13 Dose: 6.25 mg Citalopram Hydrobromide (Celexa) 20 mg PO DAILY [facility] Last Admin: 05/27/17 09:17 Dose: 20 mg Clonidine HCl (Catapres) 0.3 mg PO TID [facility] Last Admin: 05/27/17 12:31 Dose: 0.3 mg Clopidogrel Bisulfate (Plavix) 75 mg PO DAILY [facility] Last Admin: 05/27/17 09:17 Dose: 75 mg Docusate Sodium (Colace) 100 mg PO DAILY [facility] Last Admin: 05/27/17 09:16 Dose: 100 mg Epoetin José Manuel (Procrit) 10,000 unit IV MWF [facility] Last Admin: 05/26/17 13:23 Dose: 10,000 unit Ergocalciferol (Drisdol 50,000 Intl Units Cap) 1 cap PO Q7D [facility] Last Admin: 05/20/17 16:27 Dose: 1 cap Guaifenesin/Dextromethorphan (Robitussin Dm) 10 ml PO Q4 PRN PRN Reason: Cough Last Admin: 05/21/17 21:05 Dose: 10 ml Heparin Sodium (Porcine) (Heparin) 5,000 units SC Q12 [facility] PRN Reason: Protocol Last Admin: 05/27/17 09:24 Dose: 5,000 units Hydralazine HCl (Apresoline) 100 mg PO Q8 [facility] Last Admin: 05/27/17 09:13 Dose: 100 mg Ipratropium [place] (Atrovent) 0.5 mg IH RQ6 PRN PRN Reason: Wheezing Last Admin: 05/21/17 04:43 Dose: 0.5 mg Lactulose (Enulose) 20 gm PO BID PRN PRN Reason: Constipation Last Admin: 05/27/17 09:12 Dose: 20 gm Lidocaine (Lidoderm) 1 ea TD DAILY PRN PRN Reason: Pain, moderate (4-7) Last Admin: 05/25/17 08:47 Dose: 1 ea Metolazone (Zaroxolyn) 5 mg PO DAILY [facility] Last Admin: 05/27/17 09:15 Dose: 5 mg Mupirocin (Bactroban Ointment) 1 applic TOP BID [facility] Last Admin: 05/27/17 09:17 Dose: 1 applic Nitroglycerin (Nitro-Bid 2% Oint) 1 inch TOP Q6 [facility] Last Admin: 05/27/17 09:12 Dose: 1 inch Pantoprazole Sodium (Protonix Ec Tab) 40 mg PO DAILY [facility] Last Admin: 05/27/17 09:17 Dose: 40 mg Prednisone (Prednisone Tab) 10 mg PO DAILY [facility] Last Admin: 05/27/17 09:17 Dose: 10 mg Fluticasone/Salmeterol (Advair Diskus 500/50) 1 puff IH Q12 ZORAIDA Last Admin: 05/27/17 09:12 Dose: 1 puff Sevelamer Carbonate (Renvela) 1.6 gm PO TIDWM [facility] Last Admin: 05/20/17 19:08 Dose: Not Given Sevelamer HCl (Renagel) 1,600 mg PO TIDWM [facility] Last Admin: 05/27/17 12:29 Dose: 1,600 mg Spironolactone (Aldactone) 50 mg PO DAILY [facility] Last Admin: 05/27/17 09:15 Dose: 50 mg Torsemide (Demadex) 100 mg PO DAILY [facility] Last Admin: 05/27/17 09:15 Dose: 100 mg Vitamin B Complex/Vit C/Folic Acid (Nephro-Yemi) 1 tab PO DAILY [facility] Last Admin: 05/27/17 09:16 Dose: 1 tab - Labs Labs: 05/22/17 06:26 05/22/17 06:26 PT 10.6 Seconds (9.8-13.1) 05/10/17 05:45 INR 0.9 (0.9-1.2) 05/10/17 05:45 APTT 55.3 SECONDS (23.3-32.5) H 04/04/17 04:35 - Respiratory Exam Additional comments: Lungs clear - Cardiovascular Exam Cardiovascular Exam: Irregular Rhythm - Extremities Exam Additional comments: No pedal edema Assessment and Plan - Assessment and Plan (Free Text) Assessment: ESRD Stable on dialysis CHF HTN Plan: Continue HD MWF Labs wi next dialysis
[2017-05-27] MEDS: Ergocalciferol 50,000 Intl Units Cap PO SCH (16:29)
[2017-05-28] MEDS: Nitroglycerin 2% 15 INCH/30 GM TUBE TOP SCH ×3 (04:39→16:42)
[2017-05-28] MEDS: Fluticasone-Salmeterol 500-50mcg Diskus IH SCH ×2 (08:49→21:51)
[2017-05-28] MEDS: metOLazone 5 MG TAB PO SCH (08:52)
[2017-05-28] MEDS: Pantoprazole 40 mg EC Tab PO SCH (08:52)
[2017-05-28] MEDS: Multivitamin Vitamin B Complex (Nephro-Vite) Tab PO SCH (08:55)
--- NOTE | 2017-05-28 12:08 | CP.PCM.PN ---
<MaheshAruna - Last Filed: 05/28/17 14:14> Subjective - Date & Time of Evaluation Date of Evaluation: 05/28/17 Time of Evaluation: 14:14 - Subjective Subjective: Surgery for Dr. Dena Johnson s&bruce [place]. Denies F/C/N/V/D/CP/SOB. + amb. tolerating diet. Objective - Vital Signs/Intake and Output Vital Signs (last 24 hours): Temp Pulse Resp BP Pulse Ox 97.9 F 65 18 141/81 97 05/28/17 08:10 05/28/17 08:10 05/28/17 08:10 05/28/17 12:03 05/28/17 08:10 - Medications Medications: Current Medications Amlodipine Besylate (Norvasc) 10 mg PO DAILY [facility] Last Admin: 05/28/17 08:54 Dose: 10 mg Aspirin (Aspirin Chewable) 81 mg PO DAILY [facility] Last Admin: 05/28/17 08:54 Dose: 81 mg Atorvastatin Calcium (Lipitor) 20 mg PO HS [facility] Last Admin: 05/27/17 21:49 Dose: 20 mg Carvedilol (Coreg) 6.25 mg PO Q12 [facility] Last Admin: 05/28/17 08:55 Dose: 6.25 mg Citalopram Hydrobromide (Celexa) 20 mg PO DAILY [facility] Last Admin: 05/28/17 08:53 Dose: 20 mg Clonidine HCl (Catapres) 0.3 mg PO TID [facility] Last Admin: 05/28/17 12:03 Dose: 0.3 mg Clopidogrel Bisulfate (Plavix) 75 mg PO DAILY [facility] Last Admin: 05/28/17 08:55 Dose: 75 mg Docusate Sodium (Colace) 100 mg PO DAILY [facility] Last Admin: 05/28/17 08:56 Dose: 100 mg Epoetin José Manuel (Procrit) 10,000 unit IV MWF [facility] Last Admin: 05/26/17 13:23 Dose: 10,000 unit Ergocalciferol (Drisdol 50,000 Intl Units Cap) 1 cap PO Q7D [facility] Last Admin: 05/27/17 16:29 Dose: 1 cap Guaifenesin/Dextromethorphan (Robitussin Dm) 10 ml PO Q4 PRN PRN Reason: Cough Last Admin: 05/21/17 21:05 Dose: 10 ml Heparin Sodium (Porcine) (Heparin) 5,000 units SC Q12 [facility] PRN Reason: Protocol Last Admin: 05/28/17 08:57 Dose: 5,000 units Hydralazine HCl (Apresoline) 100 mg PO Q8 [facility] Last Admin: 05/28/17 08:50 Dose: 100 mg Ipratropium [place] (Atrovent) 0.5 mg IH RQ6 PRN PRN Reason: Wheezing Last Admin: 05/21/17 04:43 Dose: 0.5 mg Lactulose (Enulose) 20 gm PO BID PRN PRN Reason: Constipation Last Admin: 05/27/17 09:12 Dose: 20 gm Lidocaine (Lidoderm) 1 ea TD DAILY PRN PRN Reason: Pain, moderate (4-7) Last Admin: 05/25/17 08:47 Dose: 1 ea Metolazone (Zaroxolyn) 5 mg PO DAILY [facility] Last Admin: 05/28/17 08:52 Dose: 5 mg Mupirocin (Bactroban Ointment) 1 applic TOP BID [facility] Last Admin: 05/28/17 08:53 Dose: 1 applic Nitroglycerin (Nitro-Bid 2% Oint) 1 inch TOP Q6 [facility] Last Admin: 05/28/17 09:00 Dose: 1 inch Pantoprazole Sodium (Protonix Ec Tab) 40 mg PO DAILY [facility] Last Admin: 05/28/17 08:52 Dose: 40 mg Prednisone (Prednisone Tab) 10 mg PO DAILY [facility] Last Admin: 05/28/17 08:53 Dose: 10 mg Fluticasone/Salmeterol (Advair Diskus 500/50) 1 puff IH Q12 [facility] Last Admin: 05/28/17 08:49 Dose: 1 puff Sevelamer Carbonate (Renvela) 1.6 gm PO TIDWM [facility] Last Admin: 05/20/17 19:08 Dose: Not Given Sevelamer HCl (Renagel) 1,600 mg PO TIDWM [facility] Last Admin: 05/28/17 12:03 Dose: 1,600 mg Spironolactone (Aldactone) 50 mg PO DAILY [facility] Last Admin: 05/28/17 08:54 Dose: 50 mg Torsemide (Demadex) 100 mg PO DAILY [facility] Last Admin: 05/28/17 08:53 Dose: 100 mg Vitamin B Complex/Vit C/Folic Acid (Nephro-Yemi) 1 tab PO DAILY [facility] Last Admin: 05/28/17 08:55 Dose: 1 tab - Labs Labs: 05/22/17 06:26 05/22/17 06:26 PT 10.6 Seconds (9.8-13.1) 05/10/17 05:45 INR 0.9 (0.9-1.2) 05/10/17 05:45 APTT 55.3 SECONDS (23.3-32.5) H 04/04/17 04:35 - Constitutional Appears: No Acute Distress - Head Exam Head Exam: ATRAUMATIC, NORMAL INSPECTION, NORMOCEPHALIC - Eye Exam Eye Exam: EOMI, Normal appearance, PERRL Pupil Exam: NORMAL ACCOMODATION, PERRL - ENT Exam ENT Exam: Mucous Membranes Moist, Normal Exam - Neck Exam Neck Exam: Full ROM, Normal Inspection. absent: Lymphadenopathy Additional comments: R IJ dialysis cath - Respiratory Exam Respiratory Exam: Clear to Ausculation Bilateral, NORMAL BREATHING PATTERN - Cardiovascular Exam Cardiovascular Exam: REGULAR RHYTHM, +S1, +S2. absent: Murmur - GI/Abdominal Exam GI & Abdominal Exam: Soft, Normal Bowel Sounds. absent: Tenderness - Extremities Exam Extremities Exam: Full ROM, Normal Capillary Refill, Normal Inspection. absent : Joint Swelling, Pedal Edema Additional comments: R PICC. in place. 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 - Hold plavix - Discuss with Dr. Fernandes <Manuel Fernandes - Last Filed: 05/30/17 14:44> Objective - Vital Signs/Intake and Output Vital Signs (last 24 hours): Temp Pulse Resp BP Pulse Ox 98.6 F 68 20 158/82 H 100 05/30/17 14:10 05/30/17 14:25 05/30/17 14:25 05/30/17 14:25 05/30/17 14:25 Intake and Output: 05/30/17 05/30/17 06:59 18:59 Intake Total 150 Balance 150 - Medications Medications: Current Medications Amlodipine Besylate (Norvasc) 10 mg PO DAILY [facility] Last Admin: 05/30/17 09:44 Dose: Not Given Aspirin (Aspirin Chewable) 81 mg PO DAILY [facility] Last Admin: 05/29/17 08:41 Dose: 81 mg Carvedilol (Coreg) 6.25 mg PO Q12 [facility] Last Admin: 05/30/17 09:43 Dose: 6.25 mg Citalopram Hydrobromide (Celexa) 20 mg PO DAILY [facility] Last Admin: 05/30/17 09:43 Dose: Not Given Clonidine HCl (Catapres) 0.3 mg PO TID [facility] Last Admin: 05/30/17 13:05 Dose: Not Given Clopidogrel Bisulfate (Plavix) 75 mg PO DAILY [facility] Last Admin: 05/28/17 08:55 Dose: 75 mg Docusate Sodium (Colace) 100 mg PO DAILY [facility] Last Admin: 05/30/17 09:43 Dose: Not Given Epoetin José Manuel (Procrit) 10,000 unit IV MWF [facility] Last Admin: 05/29/17 21:34 Dose: 10,000 unit Ergocalciferol (Drisdol 50,000 Intl Units Cap) 1 cap PO Q7D [facility] Last Admin: 05/27/17 16:29 Dose: 1 cap Guaifenesin/Dextromethorphan (Robitussin Dm) 10 ml PO Q4 PRN PRN Reason: Cough Last Admin: 05/21/17 21:05 Dose: 10 ml Heparin Sodium (Porcine) (Heparin) 5,000 units SC Q12 [facility] PRN Reason: Protocol Last Admin: 05/28/17 21:52 Dose: 5,000 units Hydralazine HCl (Apresoline) 100 mg PO Q8 [facility] Last Admin: 05/30/17 09:44 Dose: Not Given Hydromorphone HCl (Dilaudid) 0.5 mg IVP Q4 PRN PRN Reason: Pain, moderate (4-7) Ipratropium [place] (Atrovent) 0.5 mg IH RQ6 PRN PRN Reason: Wheezing Last Admin: 05/21/17 04:43 Dose: 0.5 mg Lactulose (Enulose) 20 gm PO BID PRN PRN Reason: Constipation Last Admin: 05/29/17 16:05 Dose: 20 gm Lidocaine (Lidoderm) 1 ea TD DAILY PRN PRN Reason: Pain, moderate (4-7) Last Admin: 05/25/17 08:47 Dose: 1 ea Metolazone (Zaroxolyn) 5 mg PO DAILY [facility] Last Admin: 05/30/17 09:44 Dose: Not Given Mupirocin (Bactroban Ointment) 1 applic TOP BID [facility] Last Admin: 05/30/17 09:43 Dose: 1 applic Nitroglycerin (Nitro-Bid 2% Oint) 1 ea TOP Q6 [facility] Last Admin: 05/30/17 11:38 Dose: Not Given Pantoprazole Sodium (Protonix Ec Tab) 40 mg PO DAILY [facility] Last Admin: 05/30/17 09:44 Dose: Not Given Prednisone (Prednisone Tab) 10 mg PO DAILY [facility] Last Admin: 05/30/17 09:44 Dose: Not Given Fluticasone/Salmeterol (Advair Diskus 500/50) 1 puff IH Q12 [facility] Last Admin: 05/30/17 09:44 Dose: Not Given Sevelamer Carbonate (Renvela) 1.6 gm PO TIDWM [facility] Last Admin: 05/20/17 19:08 Dose: Not Given Sevelamer HCl (Renagel) 1,600 mg PO TIDWM [facility] Last Admin: 05/30/17 13:05 Dose: Not Given Spironolactone (Aldactone) 50 mg PO DAILY [facility] Last Admin: 05/30/17 09:44 Dose: Not Given Torsemide (Demadex) 100 mg PO DAILY [facility] Last Admin: 05/30/17 09:44 Dose: Not Given Vitamin B Complex/Vit C/Folic Acid (Nephro-Yemi) 1 tab PO DAILY [facility] Last Admin: 05/30/17 09:44 Dose: Not Given - Labs Labs: 05/30/17 07:05 05/30/17 07:05 PT 10.6 Seconds (9.8-13.1) 05/30/17 07:05 INR 0.9 (0.9-1.2) 05/30/17 07:05 APTT 24.5 Seconds (25.6-37.1) L 05/28/17 14:01 Assessment and Plan - Assessment and Plan (Free Text) Plan: Patient remains clinically stable. He is being pre-op'd for AV fistula placement within next few days.
[2017-05-28 14:38] LABS: INR 0.9 (0.9-1.2); PARTIAL THROMBOPLASTIN TIME 24.5 Seconds (25.6-37.1); PROTHROMBIN TIME 10.5 Seconds (9.8-13.1)
--- NOTE | 2017-05-28 14:39 | CP.PCM.PN ---
Subjective - Date & Time of Evaluation Date of Evaluation: 05/28/17 Time of Evaluation: 02:35 - Subjective Subjective: Comfortable supine N0 c/o SOB Objective - Vital Signs/Intake and Output Vital Signs (last 24 hours): Temp Pulse Resp BP Pulse Ox 97.9 F 65 18 141/81 97 05/28/17 08:10 05/28/17 08:10 05/28/17 08:10 05/28/17 12:03 05/28/17 08:10 - Medications Medications: Current Medications Amlodipine Besylate (Norvasc) 10 mg PO DAILY [facility] Last Admin: 05/28/17 08:54 Dose: 10 mg Aspirin (Aspirin Chewable) 81 mg PO DAILY [facility] Last Admin: 05/28/17 08:54 Dose: 81 mg Atorvastatin Calcium (Lipitor) 20 mg PO HS [facility] Last Admin: 05/27/17 21:49 Dose: 20 mg Carvedilol (Coreg) 6.25 mg PO Q12 [facility] Last Admin: 05/28/17 08:55 Dose: 6.25 mg Citalopram Hydrobromide (Celexa) 20 mg PO DAILY [facility] Last Admin: 05/28/17 08:53 Dose: 20 mg Clonidine HCl (Catapres) 0.3 mg PO TID [facility] Last Admin: 05/28/17 12:03 Dose: 0.3 mg Clopidogrel Bisulfate (Plavix) 75 mg PO DAILY [facility] Last Admin: 05/28/17 08:55 Dose: 75 mg Docusate Sodium (Colace) 100 mg PO DAILY [facility] Last Admin: 05/28/17 08:56 Dose: 100 mg Epoetin José Manuel (Procrit) 10,000 unit IV MWF [facility] Last Admin: 05/26/17 13:23 Dose: 10,000 unit Ergocalciferol (Drisdol 50,000 Intl Units Cap) 1 cap PO Q7D [facility] Last Admin: 05/27/17 16:29 Dose: 1 cap Guaifenesin/Dextromethorphan (Robitussin Dm) 10 ml PO Q4 PRN PRN Reason: Cough Last Admin: 05/21/17 21:05 Dose: 10 ml Heparin Sodium (Porcine) (Heparin) 5,000 units SC Q12 [facility] PRN Reason: Protocol Last Admin: 05/28/17 08:57 Dose: 5,000 units Hydralazine HCl (Apresoline) 100 mg PO Q8 [facility] Last Admin: 05/28/17 08:50 Dose: 100 mg Ipratropium [place] (Atrovent) 0.5 mg IH RQ6 PRN PRN Reason: Wheezing Last Admin: 05/21/17 04:43 Dose: 0.5 mg Lactulose (Enulose) 20 gm PO BID PRN PRN Reason: Constipation Last Admin: 05/27/17 09:12 Dose: 20 gm Lidocaine (Lidoderm) 1 ea TD DAILY PRN PRN Reason: Pain, moderate (4-7) Last Admin: 05/25/17 08:47 Dose: 1 ea Metolazone (Zaroxolyn) 5 mg PO DAILY [facility] Last Admin: 05/28/17 08:52 Dose: 5 mg Mupirocin (Bactroban Ointment) 1 applic TOP BID [facility] Last Admin: 05/28/17 08:53 Dose: 1 applic Nitroglycerin (Nitro-Bid 2% Oint) 1 inch TOP Q6 [facility] Last Admin: 05/28/17 09:00 Dose: 1 inch Pantoprazole Sodium (Protonix Ec Tab) 40 mg PO DAILY [facility] Last Admin: 05/28/17 08:52 Dose: 40 mg Prednisone (Prednisone Tab) 10 mg PO DAILY [facility] Last Admin: 05/28/17 08:53 Dose: 10 mg Fluticasone/Salmeterol (Advair Diskus 500/50) 1 puff IH Q12 [facility] Last Admin: 05/28/17 08:49 Dose: 1 puff Sevelamer Carbonate (Renvela) 1.6 gm PO TIDWM [facility] Last Admin: 05/20/17 19:08 Dose: Not Given Sevelamer HCl (Renagel) 1,600 mg PO TIDWM [facility] Last Admin: 05/28/17 12:03 Dose: 1,600 mg Spironolactone (Aldactone) 50 mg PO DAILY [facility] Last Admin: 05/28/17 08:54 Dose: 50 mg Torsemide (Demadex) 100 mg PO DAILY [facility] Last Admin: 05/28/17 08:53 Dose: 100 mg Vitamin B Complex/Vit C/Folic Acid (Nephro-Yemi) 1 tab PO DAILY [facility] Last Admin: 05/28/17 08:55 Dose: 1 tab - Labs Labs: 05/22/17 06:26 05/22/17 06:26 PT 10.6 Seconds (9.8-13.1) 05/10/17 05:45 INR 0.9 (0.9-1.2) 05/10/17 05:45 APTT 55.3 SECONDS (23.3-32.5) H 04/04/17 04:35 - Respiratory Exam Additional comments: Lungs clear - Cardiovascular Exam Cardiovascular Exam: REGULAR RHYTHM - Extremities Exam Additional comments: No edema Assessment and Plan - Assessment and Plan (Free Text) Assessment: ESRD CHF controlled HTN Plan: Continue H MWF
[2017-05-28] MEDS: Nitroglycerin 2% Ointment Foilpak UD TOP SCH (22:02)
[2017-05-29] MEDS: Nitroglycerin 2% Ointment Foilpak UD TOP SCH ×4 (04:58→21:22)
[2017-05-29 06:50] LABS: HEMOGLOBIN 10.5 g/dL (12.0-18.0); MEAN CELL VOLUME 100.2 fl (80.0-94.0); MEAN CORPUSCULAR HEMOGLOBIN 32.6 pg (27.0-31.0); MEAN CORPUSCULAR HGB CONC 32.5 g/dL (33.0-37.0); RBC 3.22 Mil/uL (4.40-5.90); RED CELL DISTRIBUTION WIDTH 22.2 % (11.5-14.5); WHITE BLOOD COUNT 9.8 K/uL (4.8-10.8)
[2017-05-29 06:59] LABS: CALCIUM 8.4 mg/dL (8.4-10.2)
--- NOTE | 2017-05-29 08:13 | CP.PCM.PN ---
<MacarioGaston - Last Filed: 05/29/17 08:11> Subjective - Date & Time of Evaluation Date of Evaluation: 05/29/17 Time of Evaluation: 08:11 - Subjective Subjective: Surgery Progress note. Dr. Fernandes Pt seen and examined at bedside. No acute events overnight. No new complaints. To dialysis today. Objective - Vital Signs/Intake and Output Vital Signs (last 24 hours): Temp Pulse Resp BP Pulse Ox 97.9 F 70 19 140/75 94 L 05/29/17 00:05 05/29/17 04:58 05/29/17 00:05 05/29/17 04:58 05/29/17 00:05 - Medications Medications: Current Medications Amlodipine Besylate (Norvasc) 10 mg PO DAILY [facility] Last Admin: 05/28/17 08:54 Dose: 10 mg Aspirin (Aspirin Chewable) 81 mg PO DAILY [facility] Last Admin: 05/28/17 08:54 Dose: 81 mg Atorvastatin Calcium (Lipitor) 20 mg PO HS [facility] Last Admin: 05/28/17 21:51 Dose: 20 mg Carvedilol (Coreg) 6.25 mg PO Q12 [facility] Last Admin: 05/28/17 21:51 Dose: 6.25 mg Citalopram Hydrobromide (Celexa) 20 mg PO DAILY [facility] Last Admin: 05/28/17 08:53 Dose: 20 mg Clonidine HCl (Catapres) 0.3 mg PO TID [facility] Last Admin: 05/28/17 16:39 Dose: 0.3 mg Clopidogrel Bisulfate (Plavix) 75 mg PO DAILY [facility] Last Admin: 05/28/17 08:55 Dose: 75 mg Docusate Sodium (Colace) 100 mg PO DAILY [facility] Last Admin: 05/28/17 08:56 Dose: 100 mg Epoetin José Manuel (Procrit) 10,000 unit IV MWF [facility] Last Admin: 05/26/17 13:23 Dose: 10,000 unit Ergocalciferol (Drisdol 50,000 Intl Units Cap) 1 cap PO Q7D [facility] Last Admin: 05/27/17 16:29 Dose: 1 cap Guaifenesin/Dextromethorphan (Robitussin Dm) 10 ml PO Q4 PRN PRN Reason: Cough Last Admin: 05/21/17 21:05 Dose: 10 ml Heparin Sodium (Porcine) (Heparin) 5,000 units SC Q12 [facility] PRN Reason: Protocol Last Admin: 05/28/17 21:52 Dose: 5,000 units Hydralazine HCl (Apresoline) 100 mg PO Q8 [facility] Last Admin: 05/29/17 00:14 Dose: 100 mg Ipratropium [place] (Atrovent) 0.5 mg IH RQ6 PRN PRN Reason: Wheezing Last Admin: 05/21/17 04:43 Dose: 0.5 mg Lactulose (Enulose) 20 gm PO BID PRN PRN Reason: Constipation Last Admin: 05/27/17 09:12 Dose: 20 gm Lidocaine (Lidoderm) 1 ea TD DAILY PRN PRN Reason: Pain, moderate (4-7) Last Admin: 05/25/17 08:47 Dose: 1 ea Metolazone (Zaroxolyn) 5 mg PO DAILY [facility] Last Admin: 05/28/17 08:52 Dose: 5 mg Mupirocin (Bactroban Ointment) 1 applic TOP BID [facility] Last Admin: 05/28/17 16:41 Dose: 1 applic Nitroglycerin (Nitro-Bid 2% Oint) 1 ea TOP Q6 [facility] Last Admin: 05/29/17 04:58 Dose: 1 ea Pantoprazole Sodium (Protonix Ec Tab) 40 mg PO DAILY [facility] Last Admin: 05/28/17 08:52 Dose: 40 mg Fluticasone/Salmeterol (Advair Diskus 500/50) 1 puff IH Q12 [facility] Last Admin: 05/28/17 21:51 Dose: 1 puff Sevelamer Carbonate (Renvela) 1.6 gm PO TIDWM [facility] Last Admin: 05/20/17 19:08 Dose: Not Given Sevelamer HCl (Renagel) 1,600 mg PO TIDWM [facility] Last Admin: 05/28/17 16:39 Dose: 1,600 mg Spironolactone (Aldactone) 50 mg PO DAILY [facility] Last Admin: 05/28/17 08:54 Dose: 50 mg Torsemide (Demadex) 100 mg PO DAILY [facility] Last Admin: 05/28/17 08:53 Dose: 100 mg Vitamin B Complex/Vit C/Folic Acid (Nephro-Yemi) 1 tab PO DAILY [facility] Last Admin: 05/28/17 08:55 Dose: 1 tab - Labs Labs: 05/29/17 06:20 05/29/17 06:20 PT 10.5 Seconds (9.8-13.1) 05/28/17 14:01 INR 0.9 (0.9-1.2) 05/28/17 14:01 APTT 24.5 Seconds (25.6-37.1) L 05/28/17 14:01 - Constitutional Appears: Well, No Acute Distress - Head Exam Head Exam: ATRAUMATIC, NORMAL INSPECTION, NORMOCEPHALIC - Eye Exam Eye Exam: EOMI - ENT Exam ENT Exam: Mucous Membranes Moist - Respiratory Exam Respiratory Exam: NORMAL BREATHING PATTERN. absent: Wheezes - Cardiovascular Exam Cardiovascular Exam: absent: JVD - GI/Abdominal Exam GI & Abdominal Exam: Soft. absent: Firm, Guarding, Rigid, Tenderness - Extremities Exam Extremities Exam: Normal Inspection. absent: Calf Tenderness Additional comments: Left arm precaution bracelet in place. Pulses intact. 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 Dena Sorto PGY1 <Manuel Fernandes - Last Filed: 05/30/17 14:43> Objective - Vital Signs/Intake and Output Vital Signs (last 24 hours): Temp Pulse Resp BP Pulse Ox 98.6 F 68 20 158/82 H 100 05/30/17 14:10 05/30/17 14:25 05/30/17 14:25 05/30/17 14:25 05/30/17 14:25 Intake and Output: 05/30/17 05/30/17 06:59 18:59 Intake Total 150 Balance 150 - Medications Medications: Current Medications Amlodipine Besylate (Norvasc) 10 mg PO DAILY [facility] Last Admin: 05/30/17 09:44 Dose: Not Given Aspirin (Aspirin Chewable) 81 mg PO DAILY [facility] Last Admin: 05/29/17 08:41 Dose: 81 mg Carvedilol (Coreg) 6.25 mg PO Q12 [facility] Last Admin: 05/30/17 09:43 Dose: 6.25 mg Citalopram Hydrobromide (Celexa) 20 mg PO DAILY [facility] Last Admin: 05/30/17 09:43 Dose: Not Given Clonidine HCl (Catapres) 0.3 mg PO TID [facility] Last Admin: 05/30/17 13:05 Dose: Not Given Clopidogrel Bisulfate (Plavix) 75 mg PO DAILY [facility] Last Admin: 05/28/17 08:55 Dose: 75 mg Docusate Sodium (Colace) 100 mg PO DAILY [facility] Last Admin: 05/30/17 09:43 Dose: Not Given Epoetin [place] (Procrit) 10,000 unit IV MWF [facility] Last Admin: 05/29/17 21:34 Dose: 10,000 unit Ergocalciferol (Drisdol 50,000 Intl Units Cap) 1 cap PO Q7D [facility] Last Admin: 05/27/17 16:29 Dose: 1 cap Guaifenesin/Dextromethorphan (Robitussin Dm) 10 ml PO Q4 PRN PRN Reason: Cough Last Admin: 05/21/17 21:05 Dose: 10 ml Heparin Sodium (Porcine) (Heparin) 5,000 units SC Q12 [facility] PRN Reason: Protocol Last Admin: 05/28/17 21:52 Dose: 5,000 units Hydralazine HCl (Apresoline) 100 mg PO Q8 [facility] Last Admin: 05/30/17 09:44 Dose: Not Given Hydromorphone HCl (Dilaudid) 0.5 mg IVP Q4 PRN PRN Reason: Pain, moderate (4-7) Ipratropium [place] (Atrovent) 0.5 mg IH RQ6 PRN PRN Reason: Wheezing Last Admin: 05/21/17 04:43 Dose: 0.5 mg Lactulose (Enulose) 20 gm PO BID PRN PRN Reason: Constipation Last Admin: 05/29/17 16:05 Dose: 20 gm Lidocaine (Lidoderm) 1 ea TD DAILY PRN PRN Reason: Pain, moderate (4-7) Last Admin: 05/25/17 08:47 Dose: 1 ea Metolazone (Zaroxolyn) 5 mg PO DAILY [facility] Last Admin: 05/30/17 09:44 Dose: Not Given Mupirocin (Bactroban Ointment) 1 applic TOP BID [facility] Last Admin: 05/30/17 09:43 Dose: 1 applic Nitroglycerin (Nitro-Bid 2% Oint) 1 ea TOP Q6 [facility] Last Admin: 05/30/17 11:38 Dose: Not Given Pantoprazole Sodium (Protonix Ec Tab) 40 mg PO DAILY [facility] Last Admin: 05/30/17 09:44 Dose: Not Given Prednisone (Prednisone Tab) 10 mg PO DAILY [facility] Last Admin: 05/30/17 09:44 Dose: Not Given Fluticasone/Salmeterol (Advair Diskus 500/50) 1 puff IH Q12 [facility] Last Admin: 05/30/17 09:44 Dose: Not Given Sevelamer Carbonate (Renvela) 1.6 gm PO TIDWM [facility] Last Admin: 05/20/17 19:08 Dose: Not Given Sevelamer HCl (Renagel) 1,600 mg PO TIDWM [facility] Last Admin: 05/30/17 13:05 Dose: Not Given Spironolactone (Aldactone) 50 mg PO DAILY [facility] Last Admin: 05/30/17 09:44 Dose: Not Given Torsemide (Demadex) 100 mg PO DAILY [facility] Last Admin: 05/30/17 09:44 Dose: Not Given Vitamin B Complex/Vit C/Folic Acid (Nephro-Yemi) 1 tab PO DAILY [facility] Last Admin: 05/30/17 09:44 Dose: Not Given - Labs Labs: 05/30/17 07:05 05/30/17 07:05 PT 10.6 Seconds (9.8-13.1) 05/30/17 07:05 INR 0.9 (0.9-1.2) 05/30/17 07:05 APTT 24.5 Seconds (25.6-37.1) L 05/28/17 14:01 Assessment and Plan - Assessment and Plan (Free Text) Plan: Agree with resident's note and assessment. Patient is scheduled for AV fistula placement.
[2017-05-29] MEDS: Fluticasone-Salmeterol 500-50mcg Diskus IH SCH ×2 (08:37→21:21)
[2017-05-29] MEDS: metOLazone 5 MG TAB PO SCH (08:40)
[2017-05-29] MEDS: Pantoprazole 40 mg EC Tab PO SCH (08:41)
[2017-05-29] MEDS: Multivitamin Vitamin B Complex (Nephro-Vite) Tab PO SCH (08:41)
[2017-05-29] MEDS: EPOETIN ALFA 10,000 UNIT/ML ML IV SCH (21:34)
[2017-05-30] MEDS: Nitroglycerin 2% Ointment Foilpak UD TOP SCH ×4 (04:59→23:10)
[2017-05-30 07:48] LABS: HEMOGLOBIN 10.9 g/dL (12.0-18.0); MEAN CORPUSCULAR HEMOGLOBIN 33.1 pg (27.0-31.0); MEAN CORPUSCULAR HGB CONC 33.8 g/dL (33.0-37.0); RBC 3.29 Mil/uL (4.40-5.90)
[2017-05-30 08:00] LABS: INR 0.9 (0.9-1.2); PROTHROMBIN TIME 10.6 Seconds (9.8-13.1)
[2017-05-30 08:14] LABS: ALBUMIN 3.5 g/dL (3.5-5.0)
[2017-05-30 08:17] LABS: ALB/GLOB RATIO 1.2 (1.0-2.1); CALCIUM 8.3 mg/dL (8.4-10.2)
[2017-05-30] MEDS: Fluticasone-Salmeterol 500-50mcg Diskus IH SCH ×2 (09:44→22:21)
[2017-05-30] MEDS: Pantoprazole 40 mg EC Tab PO SCH (09:44)
[2017-05-30] MEDS: metOLazone 5 MG TAB PO SCH (09:44)
[2017-05-30] MEDS: Multivitamin Vitamin B Complex (Nephro-Vite) Tab PO SCH (09:44)
[2017-05-30] MEDS ORDERED: Lidocaine 1% Inj (20ml) ONE (10:40)
[2017-05-30] MEDS ORDERED: Bupivacaine 0.5% Inj(30mL) ONE (10:40)
[2017-05-30] MEDS ORDERED: Bacitracin Ointment 30 GM TUBE ONE (10:41)
[2017-05-30] MEDS ORDERED: Midazolam 2 MG/2 ML VIAL ONE (10:56)
[2017-05-30] MEDS ORDERED: Propofol 10 mg/ml Inj (20 ML) ONE (10:56)
[2017-05-30] MEDS ORDERED: Lactated Ringer's 500 ML IV ONE (11:00)
[2017-05-30] MEDS ORDERED: ePHEDrine 50 mg/ml Inj ONE (11:44)
--- NOTE | 2017-05-30 13:57 | PCM.SURG1 ---
<Aruna Aragon - Last Filed: 05/30/17 13:55> Surgeon's Initial Post Op Note - Surgeon's Notes Surgeon: Dr. Fernandes Er Nurse: Aruna Aragon PGy2 Type of Anesthesia: General LMA Pre-Operative Diagnosis: End stage renal disease needing hemodialysis Operative Findings: palpable thrills. bounding distal pulses. Post-Operative Diagnosis: Same Operation Performed: creation of AVF L arm Specimen/Specimens Removed: none Estimated Blood Loss: EBL {In ML}: 15 Blood Products Given: N/A Drains Used: No Drains Post-Op Condition: Good Date of Surgery/Procedure: 05/30/17 Time of Surgery/Procedure: 13:57 <Manuel Fernandes - Last Filed: 05/30/17 14:42> Surgeon's Initial Post Op Note - Surgeon's Notes Pre-Operative Diagnosis: End-stage renal disease with need for long-term hemodialysis access Operative Findings: Left brachio-cephalic AV fistula with palpable thrill. Bounding left radial pulse with warm left hand Operation Performed: Creation of left brachio-cephalic AV fistula
[2017-05-30] MEDS ORDERED: Sodium Chloride 0.9% 500 ML IV ONE (14:00)
[2017-05-30] MEDS ORDERED: HYDROmorphone 0.5 mg/0.5 ml ISec IVP ONE (15:00)
[2017-05-30] MEDS: HYDROmorphone 0.5 mg/0.5 ml ISec IVP PRN (16:30)
--- NOTE | 2017-05-30 17:13 | CP.PCM.PN ---
Subjective - Date & Time of Evaluation Date of Evaluation: 05/30/17 Time of Evaluation: 16:25 - Subjective Subjective: Pt was and seen and examined at bedside, s/p AV fistula placement, pt doing well , pain controlled. reports feeling nausea, no other complaints otherwise. Objective - Vital Signs/Intake and Output Vital Signs (last 24 hours): Temp Pulse Resp BP Pulse Ox 97.6 F 66 18 180/87 H 92 L 05/30/17 16:07 05/30/17 16:07 05/30/17 16:07 05/30/17 16:35 05/30/17 16:07 Intake and Output: 05/30/17 05/30/17 06:59 18:59 Intake Total 150 Balance 150 - Medications Medications: Current Medications Amlodipine Besylate (Norvasc) 10 mg PO DAILY [facility] Last Admin: 05/30/17 09:44 Dose: Not Given Aspirin (Aspirin Chewable) 81 mg PO DAILY [facility] Last Admin: 05/29/17 08:41 Dose: 81 mg Carvedilol (Coreg) 6.25 mg PO Q12 [facility] Last Admin: 05/30/17 09:43 Dose: 6.25 mg Citalopram Hydrobromide (Celexa) 20 mg PO DAILY [facility] Last Admin: 05/30/17 09:43 Dose: Not Given Clonidine HCl (Catapres) 0.3 mg PO TID [facility] Last Admin: 05/30/17 13:05 Dose: Not Given Clopidogrel Bisulfate (Plavix) 75 mg PO DAILY [facility] Last Admin: 05/28/17 08:55 Dose: 75 mg Docusate Sodium (Colace) 100 mg PO DAILY [facility] Last Admin: 05/30/17 09:43 Dose: Not Given Epoetin José Manuel (Procrit) 10,000 unit IV MWF [facility] Last Admin: 05/29/17 21:34 Dose: 10,000 unit Ergocalciferol (Drisdol 50,000 Intl Units Cap) 1 cap PO Q7D [facility] Last Admin: 05/27/17 16:29 Dose: 1 cap Guaifenesin/Dextromethorphan (Robitussin Dm) 10 ml PO Q4 PRN PRN Reason: Cough Last Admin: 05/21/17 21:05 Dose: 10 ml Heparin Sodium (Porcine) (Heparin) 5,000 units SC Q12 [facility] PRN Reason: Protocol Last Admin: 05/28/17 21:52 Dose: 5,000 units Hydralazine HCl (Apresoline) 100 mg PO Q8 [facility] Last Admin: 05/30/17 09:44 Dose: Not Given Hydromorphone HCl (Dilaudid) 0.5 mg IVP Q4 PRN PRN Reason: Pain, moderate (4-7) Last Admin: 05/30/17 16:30 Dose: 0.5 mg Ipratropium [place] (Atrovent) 0.5 mg IH RQ6 PRN PRN Reason: Wheezing Last Admin: 05/21/17 04:43 Dose: 0.5 mg Lactulose (Enulose) 20 gm PO BID PRN PRN Reason: Constipation Last Admin: 05/29/17 16:05 Dose: 20 gm Lidocaine (Lidoderm) 1 ea TD DAILY PRN PRN Reason: Pain, moderate (4-7) Last Admin: 05/25/17 08:47 Dose: 1 ea Metolazone (Zaroxolyn) 5 mg PO DAILY [facility] Last Admin: 05/30/17 09:44 Dose: Not Given Mupirocin (Bactroban Ointment) 1 applic TOP BID [facility] Last Admin: 05/30/17 09:43 Dose: 1 applic Nitroglycerin (Nitro-Bid 2% Oint) 1 ea TOP Q6 [facility] Last Admin: 05/30/17 11:38 Dose: Not Given Ondansetron HCl (Zofran Inj) 4 mg IVP ONCE PRN PRN Reason: Nausea/Vomiting Stop: 05/30/17 17:15 Last Admin: 05/30/17 15:16 Dose: 4 mg Pantoprazole Sodium (Protonix Ec Tab) 40 mg PO DAILY [facility] Last Admin: 05/30/17 09:44 Dose: Not Given Prednisone (Prednisone Tab) 10 mg PO DAILY [facility] Last Admin: 05/30/17 09:44 Dose: Not Given Fluticasone/Salmeterol (Advair Diskus 500/50) 1 puff IH Q12 [facility] Last Admin: 05/30/17 09:44 Dose: Not Given Sevelamer Carbonate (Renvela) 1.6 gm PO TIDWM [facility] Last Admin: 05/20/17 19:08 Dose: Not Given Sevelamer HCl (Renagel) 1,600 mg PO TIDWM [facility] Last Admin: 05/30/17 13:05 Dose: Not Given Spironolactone (Aldactone) 50 mg PO DAILY [facility] Last Admin: 05/30/17 09:44 Dose: Not Given Torsemide (Demadex) 100 mg PO DAILY [facility] Last Admin: 05/30/17 09:44 Dose: Not Given Vitamin B Complex/Vit C/Folic Acid (Nephro-Yemi) 1 tab PO DAILY [facility] Last Admin: 05/30/17 09:44 Dose: Not Given - Labs Labs: 05/30/17 07:05 05/30/17 07:05 PT 10.6 Seconds (9.8-13.1) 05/30/17 07:05 INR 0.9 (0.9-1.2) 05/30/17 07:05 APTT 24.5 Seconds (25.6-37.1) L 05/28/17 14:01 - Constitutional Appears: Non-toxic, No Acute Distress - Head Exam Head Exam: NORMOCEPHALIC - ENT Exam ENT Exam: Mucous Membranes Moist - Respiratory Exam Respiratory Exam: Clear to Ausculation Bilateral, NORMAL BREATHING PATTERN. 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 Patient Now has ESRD and required hemodialysis 3 times per week for life. 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 Systolic CHF with Acute Exacerbation -stable, chronic -Echo 04/02/17: LVEF 30-35%, with generalized moderate hypokinesia particularly pronounced in the septum -Cardio consult appreciated Dr. Miles: patient is not a suitable candidate for invasive cardiac workup, recommend continue with Coreg 6.25mg Q12, Lipitor 20 mg PO QD, Plavix 75mg QD, Heparin 5,000 units SC BID -Continue Torsemide 100mg PO daily -Per [employer] Cream [employer]er not a good candidate for MAN-i due to impaired renal function -Strict I/Os. -Daily weights COPD -stable, chronic -Prednisone 10mg PO QD, Advair, duonebs PRN -Could not find any evidence of failure on spirvia, pt seems to remember being on it and getting something else not sure of the reason, will do further investigation HTN -controlled -Cardio consult appreciated Dr. 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
[2017-05-31] MEDS ORDERED: Nitroglycerin 2% Ointment Foilpak UD TOP ONE (04:00)
[2017-05-31] MEDS: HYDROmorphone 0.5 mg/0.5 ml ISec IVP PRN (06:50)
[2017-05-31] MEDS: EPOETIN ALFA 10,000 UNIT/ML ML IV SCH (08:23)
[2017-05-31] MEDS: Fluticasone-Salmeterol 500-50mcg Diskus IH SCH ×2 (08:25→21:27)
[2017-05-31] MEDS: Multivitamin Vitamin B Complex (Nephro-Vite) Tab PO SCH (08:25)
[2017-05-31] MEDS: Pantoprazole 40 mg EC Tab PO SCH (08:27)
[2017-05-31] MEDS: metOLazone 5 MG TAB PO SCH (08:28)
[2017-05-31] MEDS: Nitroglycerin 2% Ointment Foilpak UD TOP SCH ×4 (08:29→21:28)
--- NOTE | 2017-05-31 08:47 | CP.PCM.PN ---
<MacarioGaston - Last Filed: 05/31/17 08:45> Subjective - Date & Time of Evaluation Date of Evaluation: 05/31/17 Time of Evaluation: 08:45 - Subjective Subjective: Vascular Surgery Progress note. Dr. Fernandes PT seen and examined at bedside. Pt reports pain to left AVF site. Also c/o Dizziness and Nausea, Decreased appetite. No Abd pain, no CP/SOB. No F/C. No acute distress. Plan for dialysis today Objective - Vital Signs/Intake and Output Vital Signs (last 24 hours): Temp Pulse Resp BP Pulse Ox 98.6 F 91 H 20 185/94 H 94 L 05/31/17 08:36 05/31/17 08:36 05/31/17 08:36 05/31/17 08:36 05/31/17 08:36 - Medications Medications: Current Medications Amlodipine Besylate (Norvasc) 10 mg PO DAILY [facility] Last Admin: 05/31/17 08:24 Dose: Not Given Aspirin (Aspirin Chewable) 81 mg PO DAILY [facility] Last Admin: 05/29/17 08:41 Dose: 81 mg Carvedilol (Coreg) 6.25 mg PO Q12 [facility] Last Admin: 05/31/17 08:24 Dose: Not Given Citalopram Hydrobromide (Celexa) 20 mg PO DAILY [facility] Last Admin: 05/31/17 08:28 Dose: 20 mg Clonidine HCl (Catapres) 0.3 mg PO TID [facility] Last Admin: 05/31/17 08:26 Dose: 0.3 mg Clopidogrel Bisulfate (Plavix) 75 mg PO DAILY [facility] Last Admin: 05/31/17 08:27 Dose: Not Given Docusate Sodium (Colace) 100 mg PO DAILY [facility] Last Admin: 05/31/17 08:27 Dose: 100 mg Epoetin José [place] (Procrit) 10,000 unit IV MWF [facility] Last Admin: 05/31/17 08:23 Dose: 10,000 unit Ergocalciferol (Drisdol 50,000 Intl Units Cap) 1 cap PO Q7D [facility] Last Admin: 05/27/17 16:29 Dose: 1 cap Guaifenesin/Dextromethorphan (Robitussin Dm) 10 ml PO Q4 PRN PRN Reason: Cough Last Admin: 05/21/17 21:05 Dose: 10 ml Heparin Sodium (Porcine) (Heparin) 5,000 units SC Q12 [facility] PRN Reason: Protocol Last Admin: 05/28/17 21:52 Dose: 5,000 units Hydralazine HCl (Apresoline) 100 mg PO Q8 [facility] Last Admin: 05/31/17 08:26 Dose: 100 mg Hydromorphone HCl (Dilaudid) 0.5 mg IVP Q4 PRN PRN Reason: Pain, moderate (4-7) Last Admin: 05/31/17 06:50 Dose: 0.5 mg Ipratropium [place] (Atrovent) 0.5 mg IH RQ6 PRN PRN Reason: Wheezing Last Admin: 05/21/17 04:43 Dose: 0.5 mg Lactulose (Enulose) 20 gm PO BID PRN PRN Reason: Constipation Last Admin: 05/29/17 16:05 Dose: 20 gm Lidocaine (Lidoderm) 1 ea TD DAILY PRN PRN Reason: Pain, moderate (4-7) Last Admin: 05/25/17 08:47 Dose: 1 ea Meclizine HCl (Antivert) 25 mg PO ONCE ONE Stop: 05/31/17 07:44 Metolazone (Zaroxolyn) 5 mg PO DAILY [facility] Last Admin: 05/31/17 08:28 Dose: 5 mg Mupirocin (Bactroban Ointment) 1 applic TOP BID [facility] Last Admin: 05/31/17 08:27 Dose: 1 applic Nitroglycerin (Nitro-Bid 2% Oint) 1 ea TOP Q6 [facility] Last Admin: 05/31/17 08:29 Dose: Not Given Ondansetron HCl (Zofran Inj) 4 mg IVP Q4 PRN PRN Reason: Nausea/Vomiting Pantoprazole Sodium (Protonix Ec Tab) 40 mg PO DAILY [facility] Last Admin: 05/31/17 08:27 Dose: 40 mg Prednisone (Prednisone Tab) 10 mg PO DAILY [facility] Last Admin: 05/31/17 08:26 Dose: 10 mg Fluticasone/Salmeterol (Advair Diskus 500/50) 1 puff IH Q12 [facility] Last Admin: 05/31/17 08:25 Dose: 1 puff Sevelamer Carbonate (Renvela) 1.6 gm PO TIDWM [facility] Last Admin: 05/20/17 19:08 Dose: Not Given Sevelamer HCl (Renagel) 1,600 mg PO TIDWM [facility] Last Admin: 05/31/17 08:25 Dose: 1,600 mg Spironolactone (Aldactone) 50 mg PO DAILY [facility] Last Admin: 05/30/17 09:44 Dose: Not Given Torsemide (Demadex) 100 mg PO DAILY [facility] Last Admin: 05/31/17 08:25 Dose: 100 mg Vitamin B Complex/Vit C/Folic Acid (Nephro-Yemi) 1 tab PO DAILY [facility] Last Admin: 05/31/17 08:25 Dose: 1 tab - Labs Labs: 05/30/17 07:05 05/30/17 07:05 PT 10.6 Seconds (9.8-13.1) 05/30/17 07:05 INR 0.9 (0.9-1.2) 05/30/17 07:05 APTT 24.5 Seconds (25.6-37.1) L 05/28/17 14:01 - Constitutional Appears: Well, No Acute Distress - Head Exam Head Exam: ATRAUMATIC, NORMAL INSPECTION, NORMOCEPHALIC - Eye Exam Eye Exam: EOMI - ENT Exam ENT Exam: Mucous Membranes Moist - Respiratory Exam Respiratory Exam: NORMAL BREATHING PATTERN - GI/Abdominal Exam GI & Abdominal Exam: Soft. absent: Firm, Guarding, Rigid, Tenderness - Extremities Exam Additional comments: Left arm: AVF with palpable thrill. Distal pulses intact. No poikilothermia noted. Mild erythema. Dressing clean, dry and intact. - Neurological Exam Neurological Exam: Alert, Awake, Oriented x3 - Psychiatric Exam Psychiatric exam: Normal Affect, Normal Mood - Skin Skin Exam: Dry, Intact, Normal Color, Warm Assessment and Plan - Assessment and Plan (Free Text) Assessment: 67yo M with ESRD s/p L AVF on 05/30. POD1 - Left arm precautions - Keep left arm straight and elevated on pillow - may resume plavix and DVT ppx today - Zofran prn - Meclizine trial for dizziness - will follow Further Recs as per Dr. Dena Sorto PGY1 <Manuel Fernandes - Last Filed: 05/31/17 12:01> Objective - Vital Signs/Intake and Output Vital Signs (last 24 hours): Temp Pulse Resp BP Pulse Ox 98.6 F 91 H 20 185/94 H 94 L 05/31/17 08:36 05/31/17 08:36 05/31/17 08:36 05/31/17 08:36 05/31/17 08:36 - Medications Medications: Current Medications Amlodipine Besylate (Norvasc) 10 mg PO DAILY [facility] Last Admin: 05/31/17 08:24 Dose: Not Given Aspirin (Aspirin Chewable) 81 mg PO DAILY [facility] Last Admin: 05/29/17 08:41 Dose: 81 mg Carvedilol (Coreg) 6.25 mg PO Q12 [facility] Last Admin: 05/31/17 08:24 Dose: Not Given Citalopram Hydrobromide (Celexa) 20 mg PO DAILY [facility] Last Admin: 05/31/17 08:28 Dose: 20 mg Clonidine HCl (Catapres) 0.3 mg PO TID [facility] Last Admin: 05/31/17 08:26 Dose: 0.3 mg Clopidogrel Bisulfate (Plavix) 75 mg PO DAILY [facility] Last Admin: 05/31/17 08:27 Dose: Not Given Docusate Sodium (Colace) 100 mg PO DAILY [facility] Last Admin: 05/31/17 08:27 Dose: 100 mg Epoetin José [place] (Procrit) 10,000 unit IV MWF [facility] Last Admin: 05/31/17 08:23 Dose: 10,000 unit Ergocalciferol (Drisdol 50,000 Intl Units Cap) 1 cap PO Q7D [facility] Last Admin: 05/27/17 16:29 Dose: 1 cap Guaifenesin/Dextromethorphan (Robitussin Dm) 10 ml PO Q4 PRN PRN Reason: Cough Last Admin: 05/21/17 21:05 Dose: 10 ml Heparin Sodium (Porcine) (Heparin) 5,000 units SC Q12 [facility] PRN Reason: Protocol Last Admin: 05/28/17 21:52 Dose: 5,000 units Hydralazine HCl (Apresoline) 100 mg PO Q8 [facility] Last Admin: 05/31/17 08:26 Dose: 100 mg Hydromorphone HCl (Dilaudid) 0.5 mg IVP Q4 PRN PRN Reason: Pain, moderate (4-7) Last Admin: 05/31/17 06:50 Dose: 0.5 mg Ipratropium [place] (Atrovent) 0.5 mg IH RQ6 PRN PRN Reason: Wheezing Last Admin: 05/21/17 04:43 Dose: 0.5 mg Lactulose (Enulose) 20 gm PO BID PRN PRN Reason: Constipation Last Admin: 05/31/17 11:09 Dose: 20 gm Lidocaine (Lidoderm) 1 ea TD DAILY PRN PRN Reason: Pain, moderate (4-7) Last Admin: 05/25/17 08:47 Dose: 1 ea Metolazone (Zaroxolyn) 5 mg PO DAILY [facility] Last Admin: 05/31/17 08:28 Dose: 5 mg Mupirocin (Bactroban Ointment) 1 applic TOP BID [facility] Last Admin: 05/31/17 08:27 Dose: 1 applic Nitroglycerin (Nitro-Bid 2% Oint) 1 ea TOP Q6 [facility] Last Admin: 05/31/17 09:34 Dose: 1 ea Ondansetron HCl (Zofran Inj) 4 mg IVP Q4 PRN PRN Reason: Nausea/Vomiting Last Admin: 05/31/17 09:33 Dose: 4 mg Pantoprazole Sodium (Protonix Ec Tab) 40 mg PO DAILY [facility] Last Admin: 05/31/17 08:27 Dose: 40 mg Prednisone (Prednisone Tab) 10 mg PO DAILY [facility] Last Admin: 05/31/17 08:26 Dose: 10 mg Fluticasone/Salmeterol (Advair Diskus 500/50) 1 puff IH Q12 [facility] Last Admin: 05/31/17 08:25 Dose: 1 puff Sevelamer Carbonate (Renvela) 1.6 gm PO TIDWM [facility] Last Admin: 05/20/17 19:08 Dose: Not Given Sevelamer HCl (Renagel) 1,600 mg PO TIDWM [facility] Last Admin: 05/31/17 08:25 Dose: 1,600 mg Spironolactone (Aldactone) 50 mg PO DAILY [facility] Last Admin: 05/31/17 09:35 Dose: 50 mg Torsemide (Demadex) 100 mg PO DAILY [facility] Last Admin: 05/31/17 08:25 Dose: 100 mg Vitamin B Complex/Vit C/Folic Acid (Nephro-Yemi) 1 tab PO DAILY [facility] Last Admin: 05/31/17 08:25 Dose: 1 tab - Labs Labs: 05/30/17 07:05 05/30/17 07:05 PT 10.6 Seconds (9.8-13.1) 05/30/17 07:05 INR 0.9 (0.9-1.2) 05/30/17 07:05 APTT 24.5 Seconds (25.6-37.1) L 05/28/17 14:01 Assessment and Plan - Assessment and Plan (Free Text) Plan: Patient seen and examined. Overall, he's doing well from surgical standpoint. He complains of left arm soreness at surgical site, but appears to be fairly comfortable laying in bed. Left arm shows no signs of ischemia - it is warm, motor-sensory intact with no new neurological deficiencies with bounding radial pulse. Left brachio-cephalic AV fistula has excellent thrill. Surgical dressing is clean and dry with no nasra hematoma apparent. Continue current care. Will remove surgical dressing tomorrow.
--- NOTE | 2017-05-31 18:44 | CP.PCM.PN ---
Subjective - Date & Time of Evaluation Date of Evaluation: 05/31/17 Time of Evaluation: 06:20 - Subjective Subjective: Comfortable in bed No sob Objective - Vital Signs/Intake and Output Vital Signs (last 24 hours): Temp Pulse Resp BP Pulse Ox 97.9 F 86 17 116/70 96 05/31/17 15:53 05/31/17 16:24 05/31/17 15:53 05/31/17 16:24 05/31/17 15:53 - Medications Medications: Current Medications Amlodipine Besylate (Norvasc) 10 mg PO DAILY [facility] Last Admin: 05/31/17 12:13 Dose: 10 mg Aspirin (Aspirin Chewable) 81 mg PO DAILY [facility] Last Admin: 05/29/17 08:41 Dose: 81 mg Carvedilol (Coreg) 6.25 mg PO Q12 [facility] Last Admin: 05/31/17 12:13 Dose: 6.25 mg Citalopram Hydrobromide (Celexa) 20 mg PO DAILY [facility] Last Admin: 05/31/17 08:28 Dose: 20 mg Clonidine HCl (Catapres) 0.3 mg PO TID [facility] Last Admin: 05/31/17 16:25 Dose: 0.3 mg Clopidogrel Bisulfate (Plavix) 75 mg PO DAILY [facility] Last Admin: 05/31/17 08:27 Dose: Not Given Docusate Sodium (Colace) 100 mg PO DAILY [facility] Last Admin: 05/31/17 08:27 Dose: 100 mg Epoetin [place] (Procrit) 10,000 unit IV MWF [facility] Last Admin: 05/31/17 08:23 Dose: 10,000 unit Ergocalciferol (Drisdol 50,000 Intl Units Cap) 1 cap PO Q7D [facility] Last Admin: 05/27/17 16:29 Dose: 1 cap Heparin Sodium (Porcine) (Heparin) 5,000 units SC Q12 [facility] PRN Reason: Protocol Last Admin: 05/28/17 21:52 Dose: 5,000 units Hydralazine HCl (Apresoline) 100 mg PO Q8 [facility] Last Admin: 05/31/17 16:24 Dose: 100 mg Hydromorphone HCl (Dilaudid) 0.5 mg IVP Q4 PRN PRN Reason: Pain, moderate (4-7) Last Admin: 07/26/17 06:50 Dose: 0.5 mg Ipratropium [place] (Atrovent) 0.5 mg IH RQ6 PRN PRN Reason: Wheezing Last Admin: 05/21/17 04:43 Dose: 0.5 mg Lactulose (Enulose) 20 gm PO BID PRN PRN Reason: Constipation Last Admin: 05/31/17 11:09 Dose: 20 gm Lidocaine (Lidoderm) 1 ea TD DAILY PRN PRN Reason: Pain, moderate (4-7) Last Admin: 05/25/17 08:47 Dose: 1 ea Metolazone (Zaroxolyn) 5 mg PO DAILY [facility] Last Admin: 05/31/17 08:28 Dose: 5 mg Mupirocin (Bactroban Ointment) 1 applic TOP BID [facility] Last Admin: 05/31/17 16:24 Dose: 1 applic Nitroglycerin (Nitro-Bid 2% Oint) 1 ea TOP Q6 [facility] Last Admin: 05/31/17 16:23 Dose: 1 ea Ondansetron HCl (Zofran Inj) 4 mg IVP Q4 PRN PRN Reason: Nausea/Vomiting Last Admin: 05/31/17 09:33 Dose: 4 mg Pantoprazole Sodium (Protonix Ec Tab) 40 mg PO DAILY [facility] Last Admin: 05/31/17 08:27 Dose: 40 mg Prednisone (Prednisone Tab) 10 mg PO DAILY [facility] Last Admin: 05/31/17 08:26 Dose: 10 mg Fluticasone/Salmeterol (Advair Diskus 500/50) 1 puff IH Q12 [facility] Last Admin: 05/31/17 08:25 Dose: 1 puff Sevelamer Carbonate (Renvela) 1.6 gm PO TIDWM [facility] Last Admin: 05/20/17 19:08 Dose: Not Given Sevelamer HCl (Renagel) 1,600 mg PO TIDWM [facility] Last Admin: 05/31/17 16:23 Dose: 1,600 mg Spironolactone (Aldactone) 50 mg PO DAILY [facility] Last Admin: 05/31/17 09:35 Dose: 50 mg Torsemide (Demadex) 100 mg PO DAILY [facility] Last Admin: 05/31/17 08:25 Dose: 100 mg Vitamin B Complex/Vit C/Folic Acid (Nephro-Yemi) 1 tab PO DAILY [facility] Last Admin: 05/31/17 08:25 Dose: 1 tab - Labs Labs: 05/30/17 07:05 05/30/17 07:05 PT 10.6 Seconds (9.8-13.1) 05/30/17 07:05 INR 0.9 (0.9-1.2) 05/30/17 07:05 APTT 24.5 Seconds (25.6-37.1) L 05/28/17 14:01 - Respiratory Exam Additional comments: Lungs clear - Cardiovascular Exam Cardiovascular Exam: REGULAR RHYTHM - Extremities Exam Additional comments: No edema Assessment and Plan - Assessment and Plan (Free Text) Assessment: ESRD on HD CHF HTN Plan: Stable on HD Dialysis tolerated well today Cont HD MWF
[2017-06-01] MEDS: Nitroglycerin 2% Ointment Foilpak UD TOP SCH ×4 (04:55→22:00)
--- NOTE | 2017-06-01 07:11 | OP ---
PROCEDURE DATE: 05/30/2017 PREOPERATIVE DIAGNOSIS: End-stage renal disease with need for hemodialysis access. POSTOPERATIVE DIAGNOSIS: End-stage renal disease with need for hemodialysis access. PROCEDURE: Left brachiocephalic AV fistula creation. SURGEON: Manuel Fernandes MD REEL HOOKER: Aruna Aragon DO. TYPE OF ANESTHESIA: LMA with local. INDICATION FOR SURGERY: The patient is a 67-year-old male with multiple severe comorbidities including vasculitis-induced kidney disease which has progressed to end-stage renal disease. Dialysis was initiated recently via right-sided tunneled dialysis catheter. Given the need for long-term dialysis access, medical team requested vascular surgical evaluation for placement of AV fistula or graft. The patient had preoperative evaluation by vascular surgery and was found to have suitable veins for AV fistula creation in his left upper extremity by venous ultrasound. As such, creation of AV fistula in his left arm was recommended to the patient. I discussed risks and benefits of AV fistula creation with the patient in detail. I mentioned the risk of infection, fistula non-maturation with a possibility of another fistula placement attempt, need for additional procedures down the road for fistula maintenance as well as arterial steal syndrome. With risks and benefits of the operation clearly described to the patient and understood by him, he has decided to proceed with the operation and signed informed consent. DESCRIPTION OF THE PROCEDURE: The patient's left upper extremity was marked with my initials prior to surgery. He was brought to the operating room and placed on the table. LMA anesthesia was applied without difficulty. I used portable ultrasound to scan his left upper extremity and assess left cephalic and basilic veins. The left cephalic vein was very superficial and of adequate caliber to support AV fistula creation. It appeared to be compressible and free of fibrosis or thrombosis. As such, I decided to proceed with left brachiocephalic fistula creation. Left upper extremity was prepped and draped in a sterile fashion. Surgical timeout was done with confirmation of identity of the patient as well as proper laterality, which was left side as well as proper surgical procedure which was AV fistula creation. I made a curvilinear incision 4 cm in length just above left antecubital fossa. I identified left cephalic vein and dissected approximately 4 cm segment of it going proximally and distally. Cephalic vein was mobilized and side branches were ligated and divided. The vein was soft and of appropriate caliber for AV fistula. Next, I turned my attention to dissection of left brachial artery. Neurovascular bundle was found underneath left bicipital aponeurosis. Medial nerve was visualized and protected throughout the entire course of this operation. Approximately 3-cm segment of the left brachial artery was dissected and secured between 2-vessel loops. Left brachial artery was soft with bounding pulse. At that point, the patient was given 5000 units of intravenous heparin. The left cephalic vein was tied off using 2-0 Vicryl suture distally and divided. Proximal end of the vein was flushed easily with heparinized saline and there was decent back bleeding. Proximal end of the vein was reaching left brachial artery without any tension. At this point, left brachial artery was clamped proximally and distally and 6 mm long arteriotomy was made. Proximal end of left cephalic vein was tailored to match the size of arteriotomy. Making sure there was no tension and preserving correct orientation of the vein without twisting it, I approximated the vein with the site of arteriotomy. 6-0 Prolene stitch was used in running fashion to complete arteriovenous anastomosis. Prior to completion of the anastomosis, it was flushed with heparinized saline and backbled. The field was hemostatic. Clamps were removed from left brachial artery restoring circulation to the left hand. There was bounding left radial pulse and excellent thrill in the fistula. Surgicel and direct digital pressure were used to enforce hemostasis. Once hemostasis was achieved, the wound was closed in two layers using running 3-0 Vicryl stitch for subcutaneous tissues and running 4-0 Monocryl to close the skin. Sterile dressing was applied. The patient was awakened from general anesthesia uneventfully. At the completion of the operation, his left hand was warm with palpable radial pulse and there was excellent thrill in the fistula. The patient was transferred to post-anesthesia care unit in a satisfactory condition. Manuel Fernandes MD YOSELYN
[2017-06-01] MEDS: HYDROmorphone 0.5 mg/0.5 ml ISec IVP PRN (07:43)
[2017-06-01] MEDS: Fluticasone-Salmeterol 500-50mcg Diskus IH SCH ×2 (08:56→21:57)
[2017-06-01] MEDS: Pantoprazole 40 mg EC Tab PO SCH (08:56)
[2017-06-01] MEDS: metOLazone 5 MG TAB PO SCH (08:57)
[2017-06-01] MEDS: Multivitamin Vitamin B Complex (Nephro-Vite) Tab PO SCH (08:59)
--- NOTE | 2017-06-01 10:49 | CP.PCM.PN ---
Subjective - Date & Time of Evaluation Date of Evaluation: 06/01/17 Time of Evaluation: 09:00 - Subjective Subjective: Patient complains of pain at incision site. Otherwise, there is no left hand numbness, pain, motor-sensory deficits. Objective - Vital Signs/Intake and Output Vital Signs (last 24 hours): Temp Pulse Resp BP Pulse Ox 98.6 F 112 H 18 138/74 95 06/01/17 07:32 06/01/17 07:32 06/01/17 07:32 06/01/17 07:32 06/01/17 07:32 - Medications Medications: Current Medications Amlodipine Besylate (Norvasc) 10 mg PO DAILY [facility] Last Admin: 06/01/17 08:59 Dose: 10 mg Aspirin (Aspirin Chewable) 81 mg PO DAILY [facility] Last Admin: 05/29/17 08:41 Dose: 81 mg Carvedilol (Coreg) 6.25 mg PO Q12 [facility] Last Admin: 06/01/17 08:57 Dose: 6.25 mg Citalopram Hydrobromide (Celexa) 20 mg PO DAILY [facility] Last Admin: 06/01/17 08:58 Dose: 20 mg Clonidine HCl (Catapres) 0.3 mg PO TID [facility] Last Admin: 06/01/17 08:57 Dose: 0.3 mg Clopidogrel Bisulfate (Plavix) 75 mg PO DAILY [facility] Last Admin: 06/01/17 08:59 Dose: 75 mg Docusate Sodium (Colace) 100 mg PO DAILY [facility] Last Admin: 06/01/17 08:56 Dose: 100 mg Epoetin José Manuel (Procrit) 10,000 unit IV MWF [facility] Last Admin: 05/31/17 08:23 Dose: 10,000 unit Ergocalciferol (Drisdol 50,000 Intl Units Cap) 1 cap PO Q7D [facility] Last Admin: 05/27/17 16:29 Dose: 1 cap Heparin Sodium (Porcine) (Heparin) 5,000 units SC Q12 [facility] PRN Reason: Protocol Last Admin: 06/01/17 08:57 Dose: 5,000 units Hydralazine HCl (Apresoline) 100 mg PO Q8 [facility] Last Admin: 06/01/17 08:56 Dose: 100 mg Hydromorphone HCl (Dilaudid) 0.5 mg IVP Q4 PRN PRN Reason: Pain, moderate (4-7) Last Admin: 06/01/17 07:43 Dose: 0.5 mg Ipratropium [place] (Atrovent) 0.5 mg IH RQ6 PRN PRN Reason: Wheezing Last Admin: 05/21/17 04:43 Dose: 0.5 mg Lactulose (Enulose) 20 gm PO BID PRN PRN Reason: Constipation Last Admin: 05/31/17 11:09 Dose: 20 gm Lidocaine (Lidoderm) 1 ea TD DAILY PRN PRN Reason: Pain, moderate (4-7) Last Admin: 05/25/17 08:47 Dose: 1 ea Metolazone (Zaroxolyn) 5 mg PO DAILY [facility] Last Admin: 06/01/17 08:57 Dose: 5 mg Mupirocin (Bactroban Ointment) 1 applic TOP BID [facility] Last Admin: 06/01/17 08:58 Dose: 1 applic Nitroglycerin (Nitro-Bid 2% Oint) 1 ea TOP Q6 [facility] Last Admin: 06/01/17 09:01 Dose: 1 ea Ondansetron HCl (Zofran Inj) 4 mg IVP Q4 PRN PRN Reason: Nausea/Vomiting Last Admin: 05/31/17 09:33 Dose: 4 mg Pantoprazole Sodium (Protonix Ec Tab) 40 mg PO DAILY [facility] Last Admin: 06/01/17 08:56 Dose: 40 mg Prednisone (Prednisone Tab) 10 mg PO DAILY [facility] Last Admin: 06/01/17 08:58 Dose: 10 mg Fluticasone/Salmeterol (Advair Diskus 500/50) 1 puff IH Q12 [facility] Last Admin: 06/01/17 08:56 Dose: 1 puff Sevelamer Carbonate (Renvela) 1.6 gm PO TIDWM [facility] Last Admin: 05/20/17 19:08 Dose: Not Given Sevelamer HCl (Renagel) 1,600 mg PO TIDWM [facility] Last Admin: 06/01/17 08:56 Dose: 1,600 mg Spironolactone (Aldactone) 50 mg PO DAILY [facility] Last Admin: 06/01/17 08:57 Dose: 50 mg Torsemide (Demadex) 100 mg PO DAILY [facility] Last Admin: 06/01/17 08:59 Dose: 100 mg Vitamin B Complex/Vit C/Folic Acid (Nephro-Yemi) 1 tab PO DAILY [facility] - Labs Labs: 05/30/17 07:05 05/30/17 07:05 PT 10.6 Seconds (9.8-13.1) 05/30/17 07:05 INR 0.9 (0.9-1.2) 05/30/17 07:05 APTT 24.5 Seconds (25.6-37.1) L 05/28/17 14:01 - Constitutional Appears: Well, No Acute Distress - Head Exam Head Exam: NORMAL INSPECTION, NORMOCEPHALIC - Eye Exam Eye Exam: EOMI, Normal appearance, PERRL Pupil Exam: NORMAL ACCOMODATION - ENT Exam ENT Exam: Normal Exam - Neck Exam Neck Exam: Full ROM, Normal Inspection - Respiratory Exam Respiratory Exam: Clear to Ausculation Bilateral, NORMAL BREATHING PATTERN - Cardiovascular Exam Cardiovascular Exam: REGULAR RHYTHM - GI/Abdominal Exam GI & Abdominal Exam: Soft, Normal Bowel Sounds - Extremities Exam Extremities Exam: Normal Capillary Refill, Normal Inspection (left arm is warm and perfused with no neurological or motor-sensory deficits. There is bounding left radial pulse. There is excellent thrill in the AV fistula. Surgical incision shows no signs of infection. ) - Neurological Exam Neurological Exam: Alert, Awake, CN II-XII Intact, Oriented x3 Neuro motor strength exam: Left Upper Extremity: 5, Right Upper Extremity: 5 Assessment and Plan - Assessment and Plan (Free Text) Assessment: Patient is recovering well after left brachio-cephalic AV fistula creation. Left arm and hand are well-perfused with no signs of arterial steal or surgical site infection. AV fistula has excellent thrill. Plan: Continue medical management. I will monitor surgical incision healing. Fistula will need to be evaluated in 4 weeks for maturation. Continue using dialysis catheter meanwhile.
--- NOTE | 2017-06-01 13:47 | CP.PCM.PN ---
Subjective - Date & Time of Evaluation Date of Evaluation: 06/01/17 Time of Evaluation: 08:00 - Subjective Subjective: Pt seen and examined at bedside, reports pain at site of fistula, but no numbness, weakness or tingling. I was paged by nurse around around 2:14Pm today as patient almost fell when he got out of bed to get a shaving stick, pt reports he got up a little too fast, felt a little dizzy and as he was attempting to sit back down , he missed the bed, but caught himself before he could fall. did not hit the floor or hit his head. Pt was also evaluated by Dr. Samano as he was rounding at time of episode. Objective - Vital Signs/Intake and Output Vital Signs (last 24 hours): Temp Pulse Resp BP Pulse Ox 98.6 F 90 18 138/74 95 06/01/17 07:32 06/01/17 13:15 06/01/17 07:32 06/01/17 07:32 06/01/17 07:32 - Medications Medications: Current Medications Amlodipine Besylate (Norvasc) 10 mg PO DAILY [facility] Last Admin: 06/01/17 08:59 Dose: 10 mg Aspirin (Aspirin Chewable) 81 mg PO DAILY [facility] Last Admin: 05/29/17 08:41 Dose: 81 mg Carvedilol (Coreg) 6.25 mg PO Q12 [facility] Last Admin: 06/01/17 08:57 Dose: 6.25 mg Citalopram Hydrobromide (Celexa) 20 mg PO DAILY [facility] Last Admin: 06/01/17 08:58 Dose: 20 mg Clonidine HCl (Catapres) 0.3 mg PO TID [facility] Last Admin: 06/01/17 13:15 Dose: 0.3 mg Clopidogrel Bisulfate (Plavix) 75 mg PO DAILY [facility] Last Admin: 06/01/17 08:59 Dose: 75 mg Docusate Sodium (Colace) 100 mg PO DAILY [facility] Last Admin: 06/01/17 08:56 Dose: 100 mg Epoetin José Manuel (Procrit) 10,000 unit IV MWF [facility] Last Admin: 05/31/17 08:23 Dose: 10,000 unit Ergocalciferol (Drisdol 50,000 Intl Units Cap) 1 cap PO Q7D [facility] Last Admin: 05/27/17 16:29 Dose: 1 cap Heparin Sodium (Porcine) (Heparin) 5,000 units SC Q12 [facility] PRN Reason: Protocol Last Admin: 06/01/17 08:57 Dose: 5,000 units Hydralazine HCl (Apresoline) 100 mg PO Q8 [facility] Last Admin: 06/01/17 08:56 Dose: 100 mg Hydromorphone HCl (Dilaudid) 0.5 mg IVP Q4 PRN PRN Reason: Pain, moderate (4-7) Last Admin: 06/01/17 07:43 Dose: 0.5 mg Ipratropium [place] (Atrovent) 0.5 mg IH RQ6 PRN PRN Reason: Wheezing Last Admin: 05/21/17 04:43 Dose: 0.5 mg Lactulose (Enulose) 20 gm PO BID PRN PRN Reason: Constipation Last Admin: 05/31/17 11:09 Dose: 20 gm Lidocaine (Lidoderm) 1 ea TD DAILY PRN PRN Reason: Pain, moderate (4-7) Last Admin: 05/25/17 08:47 Dose: 1 ea Metolazone (Zaroxolyn) 5 mg PO DAILY [facility] Last Admin: 06/01/17 08:57 Dose: 5 mg Mupirocin (Bactroban Ointment) 1 applic TOP BID [facility] Last Admin: 06/01/17 08:58 Dose: 1 applic Nitroglycerin (Nitro-Bid 2% Oint) 1 ea TOP Q6 [facility] Last Admin: 06/01/17 09:01 Dose: 1 ea Ondansetron HCl (Zofran Inj) 4 mg IVP Q4 PRN PRN Reason: Nausea/Vomiting Last Admin: 05/31/17 09:33 Dose: 4 mg Pantoprazole Sodium (Protonix Ec Tab) 40 mg PO DAILY [facility] Last Admin: 06/01/17 08:56 Dose: 40 mg Prednisone (Prednisone Tab) 10 mg PO DAILY [facility] Last Admin: 06/01/17 08:58 Dose: 10 mg Fluticasone/Salmeterol (Advair Diskus 500/50) 1 puff IH Q12 [facility] Last Admin: 06/01/17 08:56 Dose: 1 puff Sevelamer Carbonate (Renvela) 1.6 gm PO TIDWM [facility] Last Admin: 05/20/17 19:08 Dose: Not Given Sevelamer HCl (Renagel) 1,600 mg PO TIDWM [facility] Last Admin: 06/01/17 13:15 Dose: 1,600 mg Spironolactone (Aldactone) 50 mg PO DAILY [facility] Last Admin: 06/01/17 08:57 Dose: 50 mg Torsemide (Demadex) 100 mg PO DAILY [facility] Last Admin: 06/01/17 08:59 Dose: 100 mg Vitamin B Complex/Vit C/Folic Acid (Nephro-Yemi) 1 tab PO DAILY [facility] - Labs Labs: 05/30/17 07:05 05/30/17 07:05 PT 10.6 Seconds (9.8-13.1) 05/30/17 07:05 INR 0.9 (0.9-1.2) 05/30/17 07:05 APTT 24.5 Seconds (25.6-37.1) L 05/28/17 14:01 - Constitutional Appears: Non-toxic - Eye Exam Eye Exam: EOMI Pupil Exam: NORMAL ACCOMODATION - ENT Exam ENT Exam: Mucous Membranes Moist - Respiratory Exam Respiratory Exam: Clear to Ausculation Bilateral, NORMAL BREATHING PATTERN. absent: Wheezes - Cardiovascular Exam Cardiovascular Exam: REGULAR RHYTHM, +S1, +S2 - GI/Abdominal Exam GI & Abdominal Exam: Soft, Normal Bowel Sounds. 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 Patient Now has ESRD and required hemodialysis 3 times per week for life. SW is working on arranging outpatient hemodialysis; AV fistula placed today Plan: Episode of dizziness - per Dr. 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 Miles: patient is not a suitable candidate for invasive cardiac workup, recommend continue with Coreg 6.25mg Q12, Lipitor 20 mg PO QD, Plavix 75mg QD, Heparin 5,000 units SC BID -Continue Torsemide 100mg PO daily -Per Ecological Technical Officer not a good candidate for MAN-i due to impaired renal function -Strict I/Os. -Daily weights COPD -stable, chronic -Prednisone 10mg PO QD, Advair, duonebs PRN -Could not find any evidence of failure on spirvia, pt seems to remember being on it and getting something else not sure of the reason, will do further investigation HTN -controlled -Cardio consult appreciated Dr. 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
--- NOTE | 2017-06-01 15:40 | CP.PCM.PN ---
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 No acute need today. Continue with Nephrovite 1 tab/day. PRBC as needed for anemia. On MARCELINA as epogen 10,000 unit with HD, last Hb 10.9 TSAT 92% and Ferritin. 1200 Continue with phos binders supplement with Vit d weekly x 8 doses. BP control with meds as ordered. Patient on RAAS noel as with Aldactone. will d/c metolazone as not making much urine. also can try tapering down clonidine, changed to 0.2 mg TID, was on 0.3 mg TID. can lower down to 0.1 mg TID in next 1-2 days if BP stays low. Glycemic control, Dialysis consistent diet Further work up/management as per primary team Dose meds/antibiotics (if needed) for GFR <10 status. Avoid fleets enema/ magnesium based laxatives. he is pending placement for dialysis in outpt units Thanks for allowing me to participate in care of your patient. Will follow patient with you. Please call if any Qs Dr Darren Samano Office: [phone] Subjective: Noted events overnight. Patients feels okay except dizziness and near fall just before seen. Denies chest pain, palpitation. Improved shortness of breath Physical Examination: General Appearance: Comfortable, in no acute respiratory distress, co- operative. Vitals reviewed and noted as below Lungs: Normal respiratory rate/effort. Breath sounds bilateral equal and clear Heart: Normal rate. s1s2 normal. No rub or gallop. Extremities: no edema. LUE AVF with bruit+ Neurological: Patient is alert, awake and oriented to person, place and time. No focal deficit. Strength bilateral appropriate and equal Skin: Warm and dry. Normal turgor. No rash. Palpitation: Normal elasticity for age Abdomen: Abdomen is soft. Bowel sounds +. There is no abdominal tenderness, no guarding/rigidity or organomegaly : kidney or bladder not palpable. Access: permacath Labs/imaging reviewed. Past medical history, past surgical history, family history, social history, allergy reviewed Objective - Vital Signs/Intake and Output Vital Signs (last 24 hours): Temp Pulse Resp BP Pulse Ox 98.4 F 74 18 96/57 L 96 06/01/17 14:15 06/01/17 14:15 06/01/17 14:15 06/01/17 14:15 06/01/17 14:15 - Medications Medications: Current Medications Amlodipine Besylate (Norvasc) 10 mg PO DAILY [facility] Last Admin: 06/01/17 08:59 Dose: 10 mg Aspirin (Aspirin Chewable) 81 mg PO DAILY [facility] Last Admin: 05/29/17 08:41 Dose: 81 mg Carvedilol (Coreg) 6.25 mg PO Q12 [facility] Last Admin: 06/01/17 08:57 Dose: 6.25 mg Citalopram Hydrobromide (Celexa) 20 mg PO DAILY [facility] Last Admin: 06/01/17 08:58 Dose: 20 mg Clonidine HCl (Catapres) 0.2 mg PO TID [facility] Clopidogrel Bisulfate (Plavix) 75 mg PO DAILY [facility] Last Admin: 06/01/17 08:59 Dose: 75 mg Docusate Sodium (Colace) 100 mg PO DAILY [facility] Last Admin: 06/01/17 08:56 Dose: 100 mg Epoetin José Manuel (Procrit) 10,000 unit IV MWF [facility] Last Admin: 05/31/17 08:23 Dose: 10,000 unit Ergocalciferol (Drisdol 50,000 Intl Units Cap) 1 cap PO Q7D [facility] Last Admin: 05/27/17 16:29 Dose: 1 cap Heparin Sodium (Porcine) (Heparin) 5,000 units SC Q12 [facility] PRN Reason: Protocol Last Admin: 06/01/17 08:57 Dose: 5,000 units Hydralazine HCl (Apresoline) 100 mg PO Q8 [facility] Last Admin: 06/01/17 08:56 Dose: 100 mg Hydromorphone HCl (Dilaudid) 0.5 mg IVP Q4 PRN PRN Reason: Pain, moderate (4-7) Last Admin: 06/01/17 07:43 Dose: 0.5 mg Ipratropium [place] (Atrovent) 0.5 mg IH RQ6 PRN PRN Reason: Wheezing Last Admin: 05/21/17 04:43 Dose: 0.5 mg Lactulose (Enulose) 20 gm PO BID PRN PRN Reason: Constipation Last Admin: 05/31/17 11:09 Dose: 20 gm Lidocaine (Lidoderm) 1 ea TD DAILY PRN PRN Reason: Pain, moderate (4-7) Last Admin: 05/25/17 08:47 Dose: 1 ea Mupirocin (Bactroban Ointment) 1 applic TOP BID [facility] Last Admin: 06/01/17 08:58 Dose: 1 applic Nitroglycerin (Nitro-Bid 2% Oint) 1 ea TOP Q6 [facility] Last Admin: 06/01/17 09:01 Dose: 1 ea Ondansetron HCl (Zofran Inj) 4 mg IVP Q4 PRN PRN Reason: Nausea/Vomiting Last Admin: 05/31/17 09:33 Dose: 4 mg Pantoprazole Sodium (Protonix Ec Tab) 40 mg PO DAILY [facility] Last Admin: 06/01/17 08:56 Dose: 40 mg Prednisone (Prednisone Tab) 10 mg PO DAILY [facility] Last Admin: 06/01/17 08:58 Dose: 10 mg Fluticasone/Salmeterol (Advair Diskus 500/50) 1 puff IH Q12 [facility] Last Admin: 06/01/17 08:56 Dose: 1 puff Sevelamer Carbonate (Renvela) 1.6 gm PO TIDWM [facility] Last Admin: 05/20/17 19:08 Dose: Not Given Sevelamer HCl (Renagel) 1,600 mg PO TIDWM [facility] Last Admin: 06/01/17 13:15 Dose: 1,600 mg Spironolactone (Aldactone) 50 mg PO DAILY [facility] Last Admin: 06/01/17 08:57 Dose: 50 mg Vitamin B Complex/Vit C/Folic Acid (Nephro-Yemi) 1 tab PO DAILY [facility] - Labs Labs: 05/30/17 07:05 05/30/17 07:05 PT 10.6 Seconds (9.8-13.1) 05/30/17 07:05 INR 0.9 (0.9-1.2) 05/30/17 07:05 APTT 24.5 Seconds (25.6-37.1) L 05/28/17 14:01
[2017-06-02] MEDS: Nitroglycerin 2% Ointment Foilpak UD TOP SCH ×4 (04:57→22:27)
--- NOTE | 2017-06-02 07:41 | CP.PCM.PN ---
<MaheshAruna - Last Filed: 06/02/17 07:38> Subjective - Date & Time of Evaluation Date of Evaluation: 06/02/17 Time of Evaluation: 07:38 - Subjective Subjective: Surgery for Dr. Dena Johnson s&bruce PARADA. Denies F/C/N/V/D/dizziness/pain. + amb. + po tolerating. no complaints. Objective - Vital Signs/Intake and Output Vital Signs (last 24 hours): Temp Pulse Resp BP Pulse Ox 98.5 F 77 20 144/70 94 L 06/02/17 07:33 06/02/17 07:33 06/02/17 07:33 06/02/17 07:33 06/02/17 07:33 - Medications Medications: Current Medications Amlodipine Besylate (Norvasc) 10 mg PO DAILY [facility] Last Admin: 06/01/17 08:59 Dose: 10 mg Aspirin (Aspirin Chewable) 81 mg PO DAILY [facility] Last Admin: 05/29/17 08:41 Dose: 81 mg Carvedilol (Coreg) 6.25 mg PO Q12 [facility] Last Admin: 06/01/17 21:59 Dose: 6.25 mg Citalopram Hydrobromide (Celexa) 20 mg PO DAILY [facility] Last Admin: 06/01/17 08:58 Dose: 20 mg Clonidine HCl (Catapres) 0.2 mg PO TID [facility] Last Admin: 06/01/17 16:26 Dose: Not Given Clopidogrel Bisulfate (Plavix) 75 mg PO DAILY [facility] Last Admin: 06/01/17 08:59 Dose: 75 mg Docusate Sodium (Colace) 100 mg PO DAILY [facility] Last Admin: 06/01/17 08:56 Dose: 100 mg Epoetin José Manuel (Procrit) 10,000 unit IV MWF [facility] Last Admin: 05/31/17 08:23 Dose: 10,000 unit Ergocalciferol (Drisdol 50,000 Intl Units Cap) 1 cap PO Q7D [facility] Last Admin: 05/27/17 16:29 Dose: 1 cap Heparin Sodium (Porcine) (Heparin) 5,000 units SC Q12 [facility] PRN Reason: Protocol Last Admin: 06/01/17 21:59 Dose: 5,000 units Hydralazine HCl (Apresoline) 100 mg PO Q8 [facility] Last Admin: 06/02/17 01:41 Dose: 100 mg Hydromorphone HCl (Dilaudid) 0.5 mg IVP Q4 PRN PRN Reason: Pain, moderate (4-7) Last Admin: 06/01/17 07:43 Dose: 0.5 mg Ipratropium [place] (Atrovent) 0.5 mg IH RQ6 PRN PRN Reason: Wheezing Last Admin: 05/21/17 04:43 Dose: 0.5 mg Lactulose (Enulose) 20 gm PO BID PRN PRN Reason: Constipation Last Admin: 05/31/17 11:09 Dose: 20 gm Lidocaine (Lidoderm) 1 ea TD DAILY PRN PRN Reason: Pain, moderate (4-7) Last Admin: 05/25/17 08:47 Dose: 1 ea Mupirocin (Bactroban Ointment) 1 applic TOP BID [facility] Last Admin: 06/01/17 16:25 Dose: 1 applic Nitroglycerin (Nitro-Bid 2% Oint) 1 ea TOP Q6 [facility] Last Admin: 06/02/17 04:57 Dose: 1 ea Ondansetron HCl (Zofran Inj) 4 mg IVP Q4 PRN PRN Reason: Nausea/Vomiting Last Admin: 05/31/17 09:33 Dose: 4 mg Pantoprazole Sodium (Protonix Ec Tab) 40 mg PO DAILY [facility] Last Admin: 06/01/17 08:56 Dose: 40 mg Prednisone (Prednisone Tab) 10 mg PO DAILY [facility] Last Admin: 06/01/17 08:58 Dose: 10 mg Fluticasone/Salmeterol (Advair Diskus 500/50) 1 puff IH Q12 [facility] Last Admin: 06/01/17 21:57 Dose: 1 puff Sevelamer Carbonate (Renvela) 1.6 gm PO TIDWM [facility] Last Admin: 05/20/17 19:08 Dose: Not Given Sevelamer HCl (Renagel) 1,600 mg PO TIDWM [facility] Last Admin: 06/01/17 16:26 Dose: 1,600 mg Spironolactone (Aldactone) 50 mg PO DAILY [facility] Last Admin: 06/01/17 08:57 Dose: 50 mg Vitamin B Complex/Vit C/Folic Acid (Nephro-Yemi) 1 tab PO DAILY [facility] - Labs Labs: 05/30/17 07:05 05/30/17 07:05 PT 10.6 Seconds (9.8-13.1) 05/30/17 07:05 INR 0.9 (0.9-1.2) 05/30/17 07:05 APTT 24.5 Seconds (25.6-37.1) L 05/28/17 14:01 - Constitutional Appears: No Acute Distress - Head Exam Head Exam: ATRAUMATIC, NORMAL INSPECTION, NORMOCEPHALIC - Eye Exam Eye Exam: EOMI, Normal appearance, PERRL Pupil Exam: NORMAL ACCOMODATION, PERRL - ENT Exam ENT Exam: Mucous Membranes Moist, Normal Exam - Neck Exam Neck Exam: Full ROM, Normal Inspection. absent: Lymphadenopathy - Respiratory Exam Respiratory Exam: Clear to Ausculation Bilateral, NORMAL BREATHING PATTERN - Cardiovascular Exam Cardiovascular Exam: REGULAR RHYTHM - GI/Abdominal Exam GI & Abdominal Exam: Soft, Normal Bowel Sounds. absent: Tenderness - Extremities Exam Extremities Exam: Normal Capillary Refill. absent: Joint Swelling, Pedal Edema , Tenderness Additional comments: L arm incision c/d/I. no signs of infection. good bruits/ good thrills. bounding distal pulses. ROM improved. Mild swelling. - Back Exam Back Exam: NORMAL INSPECTION - Neurological Exam Neurological Exam: Alert, Awake, CN II-XII Intact, Normal Gait, Oriented x3 - Psychiatric Exam Psychiatric exam: Normal Affect, Normal Mood - Skin Skin Exam: Dry, Intact, Normal Color, Warm Assessment and Plan - Assessment and Plan (Free Text) Assessment: Patient is recovering well after left brachio-cephalic AV fistula creation. Left arm and hand are well-perfused with no signs of arterial steal or surgical site infection. AV fistula has excellent thrill. Plan: Continue medical management. we will monitor surgical incision healing. Fistula will need to be evaluated in 4 weeks for maturation. Continue using dialysis catheter meanwhile. DONNY Fernandes <Manuel Fernandes - Last Filed: 06/02/17 15:53> Objective - Vital Signs/Intake and Output Vital Signs (last 24 hours): Temp Pulse Resp BP Pulse Ox 98.5 F 84 20 135/81 94 L 06/02/17 07:33 06/02/17 12:14 06/02/17 07:33 06/02/17 13:20 06/02/17 07:33 - Medications Medications: Current Medications Amlodipine Besylate (Norvasc) 10 mg PO DAILY [facility] Last Admin: 06/02/17 09:48 Dose: Not Given Aspirin (Aspirin Chewable) 81 mg PO DAILY [facility] Last Admin: 06/02/17 09:53 Dose: 81 mg Carvedilol (Coreg) 6.25 mg PO Q12 [facility] Last Admin: 06/02/17 09:48 Dose: Not Given Citalopram Hydrobromide (Celexa) 20 mg PO DAILY [facility] Last Admin: 06/02/17 09:52 Dose: 20 mg Clonidine HCl (Catapres) 0.2 mg PO TID [facility] Last Admin: 06/02/17 12:15 Dose: Not Given Clopidogrel Bisulfate (Plavix) 75 mg PO DAILY [facility] Last Admin: 06/02/17 09:50 Dose: 75 mg Docusate Sodium (Colace) 100 mg PO DAILY [facility] Last Admin: 06/02/17 09:52 Dose: 100 mg Epoetin José Manuel (Procrit) 10,000 unit IV MWF [facility] Last Admin: 06/02/17 09:44 Dose: 10,000 unit Heparin Sodium (Porcine) (Heparin) 5,000 units SC Q12 [facility] PRN Reason: Protocol Last Admin: 06/02/17 09:50 Dose: 5,000 units Hydralazine HCl (Apresoline) 100 mg PO Q8 [facility] Last Admin: 06/02/17 09:48 Dose: Not Given Ipratropium [place] (Atrovent) 0.5 mg IH RQ6 PRN PRN Reason: Wheezing Last Admin: 05/21/17 04:43 Dose: 0.5 mg Lactulose (Enulose) 20 gm PO BID PRN PRN Reason: Constipation Last Admin: 06/02/17 14:13 Dose: 20 gm Lidocaine (Lidoderm) 1 ea TD DAILY PRN PRN Reason: Pain, moderate (4-7) Last Admin: 05/25/17 08:47 Dose: 1 ea Mupirocin (Bactroban Ointment) 1 applic TOP BID [facility] Last Admin: 06/02/17 09:53 Dose: 1 applic Nitroglycerin (Nitro-Bid 2% Oint) 1 ea TOP Q6 [facility] Last Admin: 06/02/17 09:53 Dose: 1 ea Ondansetron HCl (Zofran Inj) 4 mg IVP Q4 PRN PRN Reason: Nausea/Vomiting Last Admin: 05/31/17 09:33 Dose: 4 mg Pantoprazole Sodium (Protonix Ec Tab) 40 mg PO DAILY [facility] Last Admin: 06/02/17 09:53 Dose: 40 mg Prednisone (Prednisone Tab) 10 mg PO DAILY [facility] Last Admin: 06/02/17 09:52 Dose: 10 mg Fluticasone/Salmeterol (Advair Diskus 500/50) 1 puff IH Q12 [facility] Last Admin: 06/02/17 09:42 Dose: 1 puff Sevelamer Carbonate (Renvela) 1.6 gm PO TIDWM [facility] Last Admin: 05/20/17 19:08 Dose: Not Given Sevelamer HCl (Renagel) 1,600 mg PO TIDWM [facility] Last Admin: 06/02/17 12:16 Dose: 1,600 mg Spironolactone (Aldactone) 50 mg PO DAILY [facility] Last Admin: 06/02/17 09:48 Dose: Not Given Vitamin B Complex/Vit C/Folic Acid (Nephro-Yemi) 1 tab PO DAILY [facility] Last Admin: 06/02/17 09:50 Dose: 1 tab - Labs Labs: 05/30/17 07:05 05/30/17 07:05 PT 10.6 Seconds (9.8-13.1) 05/30/17 07:05 INR 0.9 (0.9-1.2) 05/30/17 07:05 APTT 24.5 Seconds (25.6-37.1) L 05/28/17 14:01 Assessment and Plan - Assessment and Plan (Free Text) Plan: Patient seen and examined. Agree with Dr. Aragon's note. Patient is doing quite well post-operatively. Patient has no immediate complaints. Pain is improving. Left arm and hand are warm, motor-sensory and neurologically intact. There is bounding left radial pulse and thrill in the AV fistula. Incision is healing well with no signs of infection. No immediate surgical issues. Fistula will need to be re-evaluated in 4 weeks for maturation.
[2017-06-02] MEDS: Fluticasone-Salmeterol 500-50mcg Diskus IH SCH ×2 (09:42→22:27)
[2017-06-02] MEDS: EPOETIN ALFA 10,000 UNIT/ML ML IV SCH (09:44)
[2017-06-02] MEDS: HYDROmorphone 0.5 mg/0.5 ml ISec IVP PRN (09:44)
[2017-06-02] MEDS: Multivitamin Vitamin B Complex (Nephro-Vite) Tab PO SCH (09:50)
[2017-06-02] MEDS: Pantoprazole 40 mg EC Tab PO SCH (09:53)
[2017-06-02 10:22] VITALS: BMI 21.3
--- NOTE | 2017-06-02 10:27 | CP.PCM.PN ---
Subjective - Date & Time of Evaluation Date of Evaluation: 06/02/17 Time of Evaluation: 09:20 - Subjective Subjective: Currently on dialysis No comlaints Objective - Vital Signs/Intake and Output Vital Signs (last 24 hours): Temp Pulse Resp BP Pulse Ox 98.5 F 77 20 143/73 94 L 06/02/17 07:33 06/02/17 07:33 06/02/17 07:33 06/02/17 09:30 06/02/17 07:33 - Medications Medications: Current Medications Amlodipine Besylate (Norvasc) 10 mg PO DAILY [facility] Last Admin: 06/02/17 09:48 Dose: Not Given Aspirin (Aspirin Chewable) 81 mg PO DAILY [facility] Last Admin: 06/02/17 09:53 Dose: 81 mg Carvedilol (Coreg) 6.25 mg PO Q12 [facility] Last Admin: 06/02/17 09:48 Dose: Not Given Citalopram Hydrobromide (Celexa) 20 mg PO DAILY [facility] Last Admin: 06/02/17 09:52 Dose: 20 mg Clonidine HCl (Catapres) 0.2 mg PO TID [facility] Last Admin: 06/02/17 09:48 Dose: Not Given Clopidogrel Bisulfate (Plavix) 75 mg PO DAILY [facility] Last Admin: 06/02/17 09:50 Dose: 75 mg Docusate Sodium (Colace) 100 mg PO DAILY [facility] Last Admin: 06/02/17 09:52 Dose: 100 mg Epoetin José Manuel (Procrit) 10,000 unit IV MWF [facility] Last Admin: 06/02/17 09:44 Dose: 10,000 unit Ergocalciferol (Drisdol 50,000 Intl Units Cap) 1 cap PO Q7D [facility] Last Admin: 05/27/17 16:29 Dose: 1 cap Heparin Sodium (Porcine) (Heparin) 5,000 units SC Q12 [facility] PRN Reason: Protocol Last Admin: 06/02/17 09:50 Dose: 5,000 units Hydralazine HCl (Apresoline) 100 mg PO Q8 [facility] Last Admin: 06/02/17 09:48 Dose: Not Given Hydromorphone HCl (Dilaudid) 0.5 mg IVP Q4 PRN PRN Reason: Pain, moderate (4-7) Last Admin: 06/02/17 09:44 Dose: 0.5 mg Ipratropium [place] (Atrovent) 0.5 mg IH RQ6 PRN PRN Reason: Wheezing Last Admin: 05/21/17 04:43 Dose: 0.5 mg Lactulose (Enulose) 20 gm PO BID PRN PRN Reason: Constipation Last Admin: 05/31/17 11:09 Dose: 20 gm Lidocaine (Lidoderm) 1 ea TD DAILY PRN PRN Reason: Pain, moderate (4-7) Last Admin: 05/25/17 08:47 Dose: 1 ea Mupirocin (Bactroban Ointment) 1 applic TOP BID [facility] Last Admin: 06/02/17 09:53 Dose: 1 applic Nitroglycerin (Nitro-Bid 2% Oint) 1 ea TOP Q6 [facility] Last Admin: 06/02/17 09:53 Dose: 1 ea Ondansetron HCl (Zofran Inj) 4 mg IVP Q4 PRN PRN Reason: Nausea/Vomiting Last Admin: 05/31/17 09:33 Dose: 4 mg Pantoprazole Sodium (Protonix Ec Tab) 40 mg PO DAILY [facility] Last Admin: 06/02/17 09:53 Dose: 40 mg Prednisone (Prednisone Tab) 10 mg PO DAILY [facility] Last Admin: 06/02/17 09:52 Dose: 10 mg Fluticasone/Salmeterol (Advair Diskus 500/50) 1 puff IH Q12 [facility] Last Admin: 06/02/17 09:42 Dose: 1 puff Sevelamer Carbonate (Renvela) 1.6 gm PO TIDWM [facility] Last Admin: 05/20/17 19:08 Dose: Not Given Sevelamer HCl (Renagel) 1,600 mg PO TIDWM [facility] Last Admin: 06/02/17 09:50 Dose: 1,600 mg Spironolactone (Aldactone) 50 mg PO DAILY [facility] Last Admin: 06/02/17 09:48 Dose: Not Given Vitamin B Complex/Vit C/Folic Acid (Nephro-Yemi) 1 tab PO DAILY [facility] Last Admin: 06/02/17 09:50 Dose: 1 tab - Labs Labs: 05/30/17 07:05 05/30/17 07:05 PT 10.6 Seconds (9.8-13.1) 05/30/17 07:05 INR 0.9 (0.9-1.2) 05/30/17 07:05 APTT 24.5 Seconds (25.6-37.1) L 05/28/17 14:01 - Respiratory Exam Additional comments: Lungs clear - Cardiovascular Exam Cardiovascular Exam: REGULAR RHYTHM - Extremities Exam Additional comments: No edema + bruit over Lt arm AVF. Lt hand is warm Assessment and Plan - Assessment and Plan (Free Text) Assessment: ESRD on HD S/P Lt arm AVF creation CHF HTN Plan: Has been stable on dialysis CHF is controlled Cont HD per schedule
[2017-06-02 22:01] LABS: HEPATITIS B SURFACE AG NEGATIVE (NEGATIVE)
[2017-06-02 22:07] LABS: HEPATITIS A IGM NEGATIVE (NEGATIVE); HEPATITIS B CORE AB NEGATIVE (NEGATIVE)
[2017-06-02 22:18] LABS: HEPATITIS C ANTIBODY NEGATIVE (NEGATIVE)
[2017-06-03] MEDS: Nitroglycerin 2% Ointment Foilpak UD TOP SCH ×4 (04:04→21:40)
[2017-06-03] MEDS: Fluticasone-Salmeterol 500-50mcg Diskus IH SCH ×2 (09:49→21:35)
[2017-06-03] MEDS: Multivitamin Vitamin B Complex (Nephro-Vite) Tab PO SCH (09:52)
[2017-06-03] MEDS: Pantoprazole 40 mg EC Tab PO SCH (09:53)
--- NOTE | 2017-06-03 14:04 | CP.PCM.PN ---
Subjective - Date & Time of Evaluation Date of Evaluation: 06/03/17 Time of Evaluation: 09:10 - Subjective Subjective: Pt seen and evaluated at bedside, does not have any complaints. had dialysis yesterday. no longer feels dizzy when he gets out of bed. nurses notes reviewed Objective - Vital Signs/Intake and Output Vital Signs (last 24 hours): Temp Pulse Resp BP Pulse Ox 98.4 F 76 20 136/76 95 06/03/17 08:10 06/03/17 10:00 06/03/17 08:10 06/03/17 10:00 06/03/17 08:10 - Medications Medications: Current Medications Amlodipine Besylate (Norvasc) 10 mg PO DAILY [facility] Last Admin: 06/03/17 10:00 Dose: 10 mg Aspirin (Aspirin Chewable) 81 mg PO DAILY [facility] Last Admin: 06/03/17 09:50 Dose: 81 mg Carvedilol (Coreg) 6.25 mg PO Q12 [facility] Last Admin: 06/03/17 09:59 Dose: 6.25 mg Citalopram Hydrobromide (Celexa) 20 mg PO DAILY [facility] Last Admin: 06/03/17 09:51 Dose: 20 mg Clonidine HCl (Catapres) 0.2 mg PO TID [facility] Last Admin: 06/03/17 09:59 Dose: 0.2 mg Clopidogrel Bisulfate (Plavix) 75 mg PO DAILY [facility] Last Admin: 06/03/17 09:53 Dose: 75 mg Docusate Sodium (Colace) 100 mg PO DAILY [facility] Last Admin: 06/03/17 09:51 Dose: 100 mg Epoetin José Manuel (Procrit) 10,000 unit IV MWF [facility] Last Admin: 06/02/17 09:44 Dose: 10,000 unit Heparin Sodium (Porcine) (Heparin) 5,000 units SC Q12 [facility] PRN Reason: Protocol Last Admin: 06/03/17 09:51 Dose: 5,000 units Hydralazine HCl (Apresoline) 100 mg PO Q8 [facility] Last Admin: 06/03/17 09:58 Dose: 100 mg Ipratropium [place] (Atrovent) 0.5 mg IH RQ6 PRN PRN Reason: Wheezing Last Admin: 05/21/17 04:43 Dose: 0.5 mg Lactulose (Enulose) 20 gm PO BID PRN PRN Reason: Constipation Last Admin: 06/03/17 04:33 Dose: 20 gm Lidocaine (Lidoderm) 1 ea TD DAILY PRN PRN Reason: Pain, moderate (4-7) Last Admin: 05/25/17 08:47 Dose: 1 ea Mupirocin (Bactroban Ointment) 1 applic TOP BID [facility] Last Admin: 06/02/17 17:58 Dose: 1 applic Nitroglycerin (Nitro-Bid 2% Oint) 1 ea TOP Q6 [facility] Last Admin: 06/03/17 09:59 Dose: 1 ea Ondansetron HCl (Zofran Inj) 4 mg IVP Q4 PRN PRN Reason: Nausea/Vomiting Last Admin: 05/31/17 09:33 Dose: 4 mg Pantoprazole Sodium (Protonix Ec Tab) 40 mg PO DAILY [facility] Last Admin: 06/03/17 09:53 Dose: 40 mg Prednisone (Prednisone Tab) 10 mg PO DAILY [facility] Last Admin: 06/03/17 09:53 Dose: 10 mg Fluticasone/Salmeterol (Advair Diskus 500/50) 1 puff IH Q12 [facility] Last Admin: 06/03/17 09:49 Dose: 1 puff Sevelamer Carbonate (Renvela) 1.6 gm PO TIDWM [facility] Last Admin: 05/20/17 19:08 Dose: Not Given Sevelamer HCl (Renagel) 1,600 mg PO TIDWM [facility] Last Admin: 06/03/17 09:53 Dose: 1,600 mg Spironolactone (Aldactone) 50 mg PO DAILY [facility] Last Admin: 06/03/17 09:49 Dose: 50 mg Vitamin B Complex/Vit C/Folic Acid (Nephro-Yemi) 1 tab PO DAILY [facility] Last Admin: 06/03/17 09:52 Dose: 1 tab - Labs Labs: 05/30/17 07:05 05/30/17 07:05 PT 10.6 Seconds (9.8-13.1) 05/30/17 07:05 INR 0.9 (0.9-1.2) 05/30/17 07:05 APTT 24.5 Seconds (25.6-37.1) L 05/28/17 14:01 - Constitutional Appears: Non-toxic, No Acute Distress - Head Exam Head Exam: NORMOCEPHALIC - Eye Exam Eye Exam: Normal appearance - ENT Exam ENT Exam: Mucous Membranes Moist - Respiratory Exam Respiratory Exam: Clear to Ausculation Bilateral, NORMAL BREATHING PATTERN. absent: Rhonchi, Wheezes - Cardiovascular Exam Cardiovascular Exam: REGULAR RHYTHM, +S1, +S2 - GI/Abdominal Exam GI & Abdominal Exam: Soft, Normal Bowel Sounds. 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 Patient Now has ESRD and required hemodialysis 3 times per week for life. 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 Miles: patient is not a suitable candidate for invasive cardiac workup, recommend continue with Coreg 6.25mg Q12, Lipitor 20 mg PO QD, Plavix 75mg QD, Heparin 5,000 units SC BID -Torsemide 100mg discontinued due pt barely making urine -Per Catering Attendant not a good candidate for MAN-i due to impaired renal function -Strict I/Os. -Daily weights COPD -stable, chronic -Prednisone 10mg PO QD, Advair, duonebs PRN -Could not find any evidence of failure on spirvia, pt seems to remember being on it and getting something else not sure of the reason, will do further investigation HTN -controlled -Cardio consult appreciated Dr. 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
[2017-06-04] MEDS: Nitroglycerin 2% Ointment Foilpak UD TOP SCH ×4 (04:10→22:49)
[2017-06-04] MEDS: Fluticasone-Salmeterol 500-50mcg Diskus IH SCH ×2 (09:30→21:09)
[2017-06-04] MEDS: Multivitamin Vitamin B Complex (Nephro-Vite) Tab PO SCH (09:34)
[2017-06-04] MEDS: Pantoprazole 40 mg EC Tab PO SCH (09:36)
[2017-06-05] MEDS: Nitroglycerin 2% Ointment Foilpak UD TOP SCH ×4 (04:29→22:15)
[2017-06-05] MEDS: Fluticasone-Salmeterol 500-50mcg Diskus IH SCH ×2 (09:30→21:04)
[2017-06-05] MEDS: Multivitamin Vitamin B Complex (Nephro-Vite) Tab PO SCH (09:30)
[2017-06-05] MEDS: Pantoprazole 40 mg EC Tab PO SCH (09:37)
--- NOTE | 2017-06-05 12:02 | CP.PCM.PN ---
Subjective - Date & Time of Evaluation Date of Evaluation: 06/05/17 Time of Evaluation: 11:45 - Subjective Subjective: No c/o sob Comfortable supine Objective - Vital Signs/Intake and Output Vital Signs (last 24 hours): Temp Pulse Resp BP Pulse Ox 97.7 F 71 20 125/70 97 06/05/17 08:17 06/05/17 09:40 06/05/17 08:17 06/05/17 09:40 06/05/17 08:17 - Medications Medications: Current Medications Amlodipine Besylate (Norvasc) 10 mg PO DAILY [facility] Last Admin: 06/05/17 09:38 Dose: 10 mg Aspirin (Aspirin Chewable) 81 mg PO DAILY [facility] Last Admin: 06/05/17 09:39 Dose: 81 mg Carvedilol (Coreg) 6.25 mg PO Q12 [facility] Last Admin: 06/05/17 09:37 Dose: 6.25 mg Citalopram Hydrobromide (Celexa) 20 mg PO DAILY [facility] Last Admin: 06/05/17 09:30 Dose: 20 mg Clonidine HCl (Catapres) 0.2 mg PO TID [facility] Last Admin: 06/05/17 09:40 Dose: 0.2 mg Clopidogrel Bisulfate (Plavix) 75 mg PO DAILY [facility] Last Admin: 06/05/17 09:31 Dose: 75 mg Docusate Sodium (Colace) 100 mg PO DAILY [facility] Last Admin: 06/05/17 09:39 Dose: 100 mg Epoetin José Manuel (Procrit) 10,000 unit IV MWF [facility] Last Admin: 06/02/17 09:44 Dose: 10,000 unit Heparin Sodium (Porcine) (Heparin) 5,000 units SC Q12 [facility] PRN Reason: Protocol Last Admin: 06/05/17 09:38 Dose: 5,000 units Hydralazine HCl (Apresoline) 100 mg PO Q8 [facility] Last Admin: 06/05/17 09:31 Dose: 100 mg Ipratropium [place] (Atrovent) 0.5 mg IH RQ6 PRN PRN Reason: Wheezing Last Admin: 05/21/17 04:43 Dose: 0.5 mg Lactulose (Enulose) 20 gm PO BID PRN PRN Reason: Constipation Last Admin: 06/04/17 06:23 Dose: 20 gm Lidocaine (Lidoderm) 1 ea TD DAILY PRN PRN Reason: Pain, moderate (4-7) Last Admin: 05/25/17 08:47 Dose: 1 ea Mupirocin (Bactroban Ointment) 1 applic TOP BID [facility] Last Admin: 06/05/17 09:30 Dose: 1 applic Nitroglycerin (Nitro-Bid 2% Oint) 1 ea TOP Q6 [facility] Last Admin: 06/05/17 09:31 Dose: 1 ea Ondansetron HCl (Zofran Inj) 4 mg IVP Q4 PRN PRN Reason: Nausea/Vomiting Last Admin: 05/31/17 09:33 Dose: 4 mg Pantoprazole Sodium (Protonix Ec Tab) 40 mg PO DAILY [facility] Last Admin: 06/05/17 09:37 Dose: 40 mg Prednisone (Prednisone Tab) 10 mg PO DAILY [facility] Last Admin: 06/05/17 09:39 Dose: 10 mg Fluticasone/Salmeterol (Advair Diskus 500/50) 1 puff IH Q12 [facility] Last Admin: 06/05/17 09:30 Dose: 1 puff Sevelamer Carbonate (Renvela) 1.6 gm PO TIDWM [facility] Last Admin: 05/20/17 19:08 Dose: Not Given Sevelamer HCl (Renagel) 1,600 mg PO TIDWM [facility] Last Admin: 06/05/17 09:32 Dose: 1,600 mg Spironolactone (Aldactone) 50 mg PO DAILY [facility] Last Admin: 06/05/17 09:37 Dose: 50 mg Vitamin B Complex/Vit C/Folic Acid (Nephro-Yemi) 1 tab PO DAILY [facility] Last Admin: 06/05/17 09:30 Dose: 1 tab - Labs Labs: 05/30/17 07:05 05/30/17 07:05 PT 10.6 Seconds (9.8-13.1) 05/30/17 07:05 INR 0.9 (0.9-1.2) 05/30/17 07:05 APTT 24.5 Seconds (25.6-37.1) L 05/28/17 14:01 - Respiratory Exam Additional comments: Lungs clear. Good air entry b/l - Cardiovascular Exam Cardiovascular Exam: REGULAR RHYTHM - Extremities Exam Additional comments: No edema Assessment and Plan - Assessment and Plan (Free Text) Assessment: ESRD on HD HTN CHF controlled Plan: Continue HD support for dialysis today Hb is improving
[2017-06-05] MEDS: EPOETIN ALFA 10,000 UNIT/ML ML IV SCH (12:32)
[2017-06-06] MEDS: Nitroglycerin 2% Ointment Foilpak UD TOP SCH ×4 (04:49→22:08)
[2017-06-06] MEDS: Fluticasone-Salmeterol 500-50mcg Diskus IH SCH ×2 (09:01→21:00)
[2017-06-06] MEDS: Multivitamin Vitamin B Complex (Nephro-Vite) Tab PO SCH (09:03)
[2017-06-06] MEDS: Pantoprazole 40 mg EC Tab PO SCH (09:06)
--- NOTE | 2017-06-06 11:07 | CP.PCM.PN ---
Subjective - Date & Time of Evaluation Date of Evaluation: 06/06/17 Time of Evaluation: 10:45 - Subjective Subjective: C/o pain over RT abdomen No N&V Objective - Vital Signs/Intake and Output Vital Signs (last 24 hours): Temp Pulse Resp BP Pulse Ox 98.6 F 118 H 20 147/85 96 06/06/17 08:44 06/06/17 09:05 06/06/17 08:44 06/06/17 09:05 06/06/17 08:44 - Medications Medications: Current Medications Amlodipine Besylate (Norvasc) 10 mg PO DAILY [facility] Last Admin: 06/06/17 09:02 Dose: 10 mg Aspirin (Aspirin Chewable) 81 mg PO DAILY [facility] Last Admin: 06/06/17 09:04 Dose: 81 mg Carvedilol (Coreg) 6.25 mg PO Q12 [facility] Last Admin: 06/06/17 09:03 Dose: 6.25 mg Citalopram Hydrobromide (Celexa) 20 mg PO DAILY [facility] Last Admin: 06/06/17 09:02 Dose: 20 mg Clonidine HCl (Catapres) 0.2 mg PO TID [facility] Last Admin: 06/06/17 09:03 Dose: 0.2 mg Clopidogrel Bisulfate (Plavix) 75 mg PO DAILY [facility] Last Admin: 06/06/17 09:06 Dose: 75 mg Docusate Sodium (Colace) 100 mg PO DAILY [facility] Last Admin: 06/06/17 09:04 Dose: 100 mg Epoetin José Manuel (Procrit) 10,000 unit IV MWF [facility] Last Admin: 06/05/17 12:32 Dose: Not Given Heparin Sodium (Porcine) (Heparin) 5,000 units SC Q12 [facility] PRN Reason: Protocol Last Admin: 06/06/17 09:05 Dose: 5,000 units Hydralazine HCl (Apresoline) 100 mg PO Q8 [facility] Last Admin: 06/06/17 09:04 Dose: 100 mg Ipratropium [place] (Atrovent) 0.5 mg IH RQ6 PRN PRN Reason: Wheezing Last Admin: 05/21/17 04:43 Dose: 0.5 mg Lactulose (Enulose) 20 gm PO BID PRN PRN Reason: Constipation Last Admin: 06/04/17 06:23 Dose: 20 gm Lidocaine (Lidoderm) 1 ea TD DAILY PRN PRN Reason: Pain, moderate (4-7) Last Admin: 05/25/17 08:47 Dose: 1 ea Mupirocin (Bactroban Ointment) 1 applic TOP BID [facility] Last Admin: 06/06/17 09:02 Dose: 1 applic Nitroglycerin (Nitro-Bid 2% Oint) 1 ea TOP Q6 [facility] Last Admin: 06/06/17 09:05 Dose: 1 ea Ondansetron HCl (Zofran Inj) 4 mg IVP Q4 PRN PRN Reason: Nausea/Vomiting Last Admin: 05/31/17 09:33 Dose: 4 mg Pantoprazole Sodium (Protonix Ec Tab) 40 mg PO DAILY [facility] Last Admin: 06/06/17 09:06 Dose: 40 mg Prednisone (Prednisone Tab) 10 mg PO DAILY [facility] Last Admin: 06/06/17 09:03 Dose: 10 mg Fluticasone/Salmeterol (Advair Diskus 500/50) 1 puff IH Q12 [facility] Last Admin: 06/06/17 09:01 Dose: 1 puff Sevelamer Carbonate (Renvela) 1.6 gm PO TIDWM [facility] Last Admin: 05/20/17 19:08 Dose: Not Given Sevelamer HCl (Renagel) 1,600 mg PO TIDWM [facility] Last Admin: 06/06/17 09:02 Dose: 1,600 mg Spironolactone (Aldactone) 50 mg PO DAILY [facility] Last Admin: 06/06/17 09:04 Dose: 50 mg Vitamin B Complex/Vit C/Folic Acid (Nephro-Yemi) 1 tab PO DAILY [facility] Last Admin: 06/06/17 09:03 Dose: 1 tab - Labs Labs: 05/30/17 07:05 05/30/17 07:05 PT 10.6 Seconds (9.8-13.1) 05/30/17 07:05 INR 0.9 (0.9-1.2) 05/30/17 07:05 APTT 24.5 Seconds (25.6-37.1) L 05/28/17 14:01 - Respiratory Exam Additional comments: Lungs clear - Cardiovascular Exam Cardiovascular Exam: Tachycardia, REGULAR RHYTHM - GI/Abdominal Exam Additional comments: 4x4 cm hard masspalp on Rt lower abdomen - Extremities Exam Additional comments: No edema Assessment and Plan - Assessment and Plan (Free Text) Assessment: ESRD on HD. Dialysis was toleratedwell yesterday Abdominal pain HTN CHF compensated Plan: Continue HD per schedule Abdominal US Labs ordered
[2017-06-06 13:12] LABS: HEMOGLOBIN 10.3 g/dL (12.0-18.0); MEAN CORPUSCULAR HEMOGLOBIN 33.1 pg (27.0-31.0); MEAN CORPUSCULAR HGB CONC 33.1 g/dL (33.0-37.0); RBC 3.12 Mil/uL (4.40-5.90); RED CELL DISTRIBUTION WIDTH 21.5 % (11.5-14.5); WHITE BLOOD COUNT 7.8 K/uL (4.8-10.8)
[2017-06-06 13:19] LABS: MEAN CELL VOLUME 100.2 fl (80.0-94.0)
[2017-06-06 13:24] LABS: ALB/GLOB RATIO 1.3 (1.0-2.1); ALBUMIN 3.4 g/dL (3.5-5.0); CALCIUM 7.9 mg/dL (8.4-10.2)
[2017-06-07] MEDS: Nitroglycerin 2% Ointment Foilpak UD TOP SCH ×4 (04:50→21:51)
[2017-06-07] MEDS: Fluticasone-Salmeterol 500-50mcg Diskus IH SCH ×2 (08:56→20:50)
[2017-06-07] MEDS: Multivitamin Vitamin B Complex (Nephro-Vite) Tab PO SCH (09:00)
[2017-06-07] MEDS: Pantoprazole 40 mg EC Tab PO SCH (09:00)
--- NOTE | 2017-06-07 14:11 | CP.PCM.PN ---
Subjective - Date & Time of Evaluation Date of Evaluation: 06/07/17 Time of Evaluation: 14:07 - Subjective Subjective: Patient seen and examined at bedside today and yesterday . Observed ambulating without assistance, in good spirits. He complains of minimal SOB not related to physical activity, exacerbated when lying flat that is consistent with his baseline. He also complains of lower abdominal pain. Denies n/v/d, fever, chills , back pain, and dysuria. Objective - Vital Signs/Intake and Output Vital Signs (last 24 hours): Temp Pulse Resp BP Pulse Ox 97.6 F 80 22 155/84 H 97 06/07/17 08:18 06/07/17 08:18 06/07/17 08:18 06/07/17 09:00 06/07/17 08:18 - Medications Medications: Current Medications Amlodipine Besylate (Norvasc) 10 mg PO DAILY [facility] Last Admin: 06/07/17 09:03 Dose: 10 mg Aspirin (Aspirin Chewable) 81 mg PO DAILY [facility] Last Admin: 06/07/17 09:00 Dose: 81 mg Carvedilol (Coreg) 6.25 mg PO Q12 [facility] Last Admin: 06/07/17 09:01 Dose: Not Given Citalopram Hydrobromide (Celexa) 20 mg PO DAILY [facility] Last Admin: 06/07/17 09:02 Dose: 20 mg Clonidine HCl (Catapres) 0.2 mg PO TID [facility] Last Admin: 06/07/17 12:13 Dose: Not Given Clopidogrel Bisulfate (Plavix) 75 mg PO DAILY [facility] Last Admin: 06/07/17 09:02 Dose: 75 mg Docusate Sodium (Colace) 100 mg PO DAILY [facility] Last Admin: 06/07/17 09:01 Dose: 100 mg Epoetin Jos Émanuel (Procrit) 10,000 unit IV MWF [facility] Last Admin: 06/05/17 12:32 Dose: Not Given Heparin Sodium (Porcine) (Heparin) 5,000 units SC Q12 [facility] PRN Reason: Protocol Last Admin: 06/07/17 09:02 Dose: 5,000 units Hydralazine HCl (Apresoline) 100 mg PO Q8 [facility] Last Admin: 06/07/17 09:00 Dose: 100 mg Ipratropium [place] (Atrovent) 0.5 mg IH RQ6 PRN PRN Reason: Wheezing Last Admin: 05/21/17 04:43 Dose: 0.5 mg Lactulose (Enulose) 20 gm PO BID PRN PRN Reason: Constipation Last Admin: 06/04/17 06:23 Dose: 20 gm Lidocaine (Lidoderm) 1 ea TD DAILY PRN PRN Reason: Pain, moderate (4-7) Last Admin: 05/25/17 08:47 Dose: 1 ea Mupirocin (Bactroban Ointment) 1 applic TOP BID [facility] Last Admin: 06/07/17 09:02 Dose: 1 applic Nitroglycerin (Nitro-Bid 2% Oint) 1 ea TOP Q6 [facility] Last Admin: 06/07/17 09:03 Dose: 1 ea Ondansetron HCl (Zofran Inj) 4 mg IVP Q4 PRN PRN Reason: Nausea/Vomiting Last Admin: 05/31/17 09:33 Dose: 4 mg Pantoprazole Sodium (Protonix Ec Tab) 40 mg PO DAILY [facility] Last Admin: 06/07/17 09:00 Dose: 40 mg Prednisone (Prednisone Tab) 10 mg PO DAILY [facility] Last Admin: 06/07/17 09:00 Dose: 10 mg Fluticasone/Salmeterol (Advair Diskus 500/50) 1 puff IH Q12 [facility] Last Admin: 06/07/17 08:56 Dose: 1 puff Sevelamer Carbonate (Renvela) 1.6 gm PO TIDWM [facility] Last Admin: 05/20/17 19:08 Dose: Not Given Sevelamer HCl (Renagel) 1,600 mg PO TIDWM [facility] Last Admin: 06/07/17 12:13 Dose: 1,600 mg Spironolactone (Aldactone) 50 mg PO DAILY [facility] Last Admin: 06/07/17 09:02 Dose: 50 mg Vitamin B Complex/Vit C/Folic Acid (Nephro-Yemi) 1 tab PO DAILY [facility] Last Admin: 06/07/17 09:00 Dose: 1 tab - Labs Labs: 06/06/17 12:30 06/06/17 12:30 PT 10.6 Seconds (9.8-13.1) 05/30/17 07:05 INR 0.9 (0.9-1.2) 05/30/17 07:05 APTT 24.5 Seconds (25.6-37.1) L 05/28/17 14:01 - Constitutional Appears: Well, No Acute Distress - Head Exam Head Exam: ATRAUMATIC, NORMOCEPHALIC - ENT Exam ENT Exam: Mucous Membranes Moist - Neck Exam Neck Exam: Normal Inspection. absent: Thyromegaly - Respiratory Exam Respiratory Exam: Clear to Ausculation Bilateral. absent: Accessory Muscle Use , Decreased Breath Sounds, Prolonged Expiratory Phase, Rales, Wheezes, Respiratory Distress - Cardiovascular Exam Cardiovascular Exam: REGULAR RHYTHM, +S1, +S2, Murmur. absent: JVD - GI/Abdominal Exam GI & Abdominal Exam: Soft, Tenderness, Normal Bowel Sounds. 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 Patient Now has ESRD and required hemodialysis 3 times per week for life. 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 -Abdominal US ordered Systolic CHF with Acute Exacerbation -Patient has mild SOB when lying flat. Stable, chronic -Echo 04/02/17: LVEF 30-35%, with generalized moderate hypokinesia particularly pronounced in the septum -Cardio consult appreciated Dr. Miles: patient is not a suitable candidate for invasive cardiac workup, recommend continue with Coreg 6.25mg Q12, Lipitor 20 mg PO QD, Plavix 75mg QD, Heparin 5,000 units SC BID -Torsemide 100mg discontinued due pt barely making urine -Per Early Childhood Worker not a good candidate for MAN-i due to impaired renal function -Strict I/Os. -Daily weights COPD -stable, chronic -Prednisone 10mg PO QD, Advair, duonebs PRN -Could not find any evidence of failure on spirvia, pt seems to remember being on it and getting something else not sure of the reason, will do further investigation HTN -controlled -Cardio consult appreciated Dr. 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
[2017-06-07] MEDS: EPOETIN ALFA 10,000 UNIT/ML ML IV SCH (16:02)
--- NOTE | 2017-06-07 16:03 | US ---
HISTORY: abdominal pain COMPARISON: CT abdomen and pelvis without oral or IV contrast performed 04/06/17 TECHNIQUE: Sonographic evaluation of the abdomen. FINDINGS: LIVER: Measures 17.0 cm in sagittal dimension. No focal hepatic mass identified. The main portal vein appears patent with normal directional flow. No intrahepatic bile duct dilatation. GALLBLADDER: Echogenic foci, several of which demonstrate evidence of posterior acoustic shadowing; mobility of these foci is unclear. No gallbladder wall thickening. Negative sonographic Rodas's sign as assessed by the actuarial science professor. COMMON BILE DUCT: Measures 4 mm. PANCREAS: Not well visualized. RIGHT KIDNEY: Measures 11.0 x 4.4 x 5.0 cm. No obstructing calculus or hydronephrosis identified. LEFT KIDNEY: Measures 9.5 x 5.6 x 4.5 cm. No obstructing calculus or hydronephrosis identified. 6 mm lateral/midpole anechoic avascular focus consistent with cyst. SPLEEN: Measures approximately 6.6 x 2.5 x 2.8 cm. AORTA: Limited views appear unremarkable. IVC: Limited views appear unremarkable. OTHER FINDINGS: None. IMPRESSION: Echogenic foci, several of which demonstrate evidence of posterior acoustic shadowing; mobility of these foci is unclear. Presumed to reflect cholelithiasis. The gallbladder appears otherwise unremarkable. 6 mm left lateral mid pole renal cyst.
[2017-06-08] MEDS: Nitroglycerin 2% Ointment Foilpak UD TOP SCH ×4 (03:50→21:27)
[2017-06-08] MEDS: Fluticasone-Salmeterol 500-50mcg Diskus IH SCH ×2 (09:16→21:24)
[2017-06-08] MEDS: Pantoprazole 40 mg EC Tab PO SCH (09:18)
[2017-06-08] MEDS: Multivitamin Vitamin B Complex (Nephro-Vite) Tab PO SCH (09:24)
--- NOTE | 2017-06-08 11:47 | PCM.OP ---
Operative Report - Operative Report Date of Surgery/Procedure: 05/31/17 Time of Surgery/Procedure: 01:00 Surgeon: Manuel MARIE Low Emission Automobile Designer: Aruna Aragon DO PGY-2 Anesthesia/Sedation: LMA Pre-Operative Diagnosis: End stage renal disease with need for exterminator hemodialysis Post-Operative Diagnosis: End stage renal disease with need for jail hemodialysis Indication for Surgery: Patient is a 67 year old male with significant comorbidities including kidney disease. His renal disease progressed towards end stage and required initiation of hemodialysis. Patient has been dialysed by a right sided central dialysis catheter. Anticipating the need for exterminator hemodialysis access, medical team request vascular surgical evaluation for long- term hemodialysis access placement. Patient has had mapping in his left upper extremity, which is his nondominant arm and was found to have adequate cephalic and basilic veins on ultrasound for dialysis access placement. Patient was recommended to have left AV fistula placement using cephalic or basilic veins. Risks and benefits were clearly explained to the patient. Risks of infection, fistula non-maturation, need for additional procedures, need for another fistula placement and arterial steal syndrome were all emphasized. With risks and benefits clearly explained to the patient and understood by him, he decided to proceed with the operation and signed informed consent. Operative Findings: Palpable left radial pulse and excellent thrill in the AV fistula at the end of the procedure Procedure/Operation Description: Left brachiocephalic AV fistula creation. Patient was brought to the operating room and placed on the table. Left upper extremity was marked prior to the coming into the operating room on the correct side of surgical intervention. LMA anesthesia was applied and left upper extremity was prepped and draped in sterile fashion. I used portable ultasound to visualize left cephalic and basilic veins. Both of them were adequate in caliber for fistula creation. Both veins were free of thrombosis. I chose cephalic vein and proceed with left AV brachiocephalic fistula creation. Approximately 4 cm curvilinear incision was made just above left elbow crease extending from the medial aspect of the forearm towards the middle. Left cephalic vein was identified at the level of the elbow and dissected proximally and distally for a segment of 4 cm in length. 5 branches were divided and vein was mobilized. It appeared to be short and free of significant fibrosis or thrombosis. Next, I dissected left brachial artery. Approximately 2 cm segment of the vessel was secured between two vessels. Left brachial artery was soft and had bounding pulse. Left cephalic vein was tied off distally using two 0 vicryl and divided. Proximal segment of the vein was flushed with Heparin saline. There was adequate lumen and it was reaching left brachial artery without tension. Next patient was systemically anticoagulated using 5000 units of intravenously Heparin. After five minutes on Heparin, left brachial artery was clamped proximally and distally and approximately 6 mm was made. Left cephalic vein was tailored to match the sides of the anatomy. 6-0 Prolene stich was used to created anastomosis between left cephalic vein and brachial artery in running fashion. Care was taken to prevent twisting of the vein and tension of the anastomosis was avoided. Prior to completion, anastomiss was back bled and flushed with Heparin saline. Next brachial artery clamps were removed and circulation to the left hand was restored. There was excellent palpable thrill in the fistula and well as bonding left radial pulse. Hemostasis was enforced using electrocautery and Sugicel with digital pressure application. When wound was hemostatic, it was closed with running 3-0 vicryl stitch and 4-0 monocryl was used to close the skin. Marcaine was given locally for postoperative pain control. Sterile dressing was applied. Drapes were taken off and left hand was warm and perfused with great capillary refill and bonding radial pulse. There was excellent palpable thrill distal to the arterial-venous anastomosis in the cephalic vein of the upper arm. At this point, procedure was terminated. Patient was awakened from anesthesia and transferred to post- anesthesia care unit in satisfactory condition. Estimated Blood Loss: 15 cc Blood Replaced: no Sponge/Instrument Count: correct Drains: none Complications: none Specimen: none Discharge & Condition: satisfactory
[2017-06-09] MEDS: Nitroglycerin 2% Ointment Foilpak UD TOP SCH ×4 (05:27→22:03)
[2017-06-09 06:32] LABS: HEMOGLOBIN 9.7 g/dL (12.0-18.0); MEAN CELL VOLUME 102.1 fl (80.0-94.0); MEAN CORPUSCULAR HEMOGLOBIN 32.5 pg (27.0-31.0); MEAN CORPUSCULAR HGB CONC 31.8 g/dL (33.0-37.0); RBC 2.98 Mil/uL (4.40-5.90); RED CELL DISTRIBUTION WIDTH 20.4 % (11.5-14.5)
[2017-06-09 06:43] LABS: ALB/GLOB RATIO 1.2 (1.0-2.1); ALBUMIN 3.2 g/dL (3.5-5.0); MAGNESIUM 2.1 MG/DL (1.6-2.3)
--- NOTE | 2017-06-09 07:08 | CP.PCM.PN ---
Subjective - Date & Time of Evaluation Date of Evaluation: 06/09/17 Time of Evaluation: 17:55 - Subjective Subjective: Patient seen and examine.No complaints. Denies CP, SOB, Leg swelling, Calf pain , etc. Objective - Vital Signs/Intake and Output Vital Signs (last 24 hours): Temp Pulse Resp BP Pulse Ox 98.7 F 68 18 130/63 92 L 06/09/17 00:30 06/09/17 05:27 06/09/17 00:30 06/09/17 05:27 06/09/17 00:30 - Medications Medications: Current Medications Acetaminophen (Tylenol 325mg Tab) 650 mg PO Q6 PRN PRN Reason: Pain, moderate (4-7) Last Admin: 06/08/17 16:30 Dose: 650 mg Amlodipine Besylate (Norvasc) 10 mg PO DAILY [facility] Last Admin: 06/08/17 09:22 Dose: 10 mg Aspirin (Aspirin Chewable) 81 mg PO DAILY [facility] Last Admin: 06/08/17 09:18 Dose: 81 mg Carvedilol (Coreg) 6.25 mg PO Q12 [facility] Last Admin: 06/08/17 21:25 Dose: 6.25 mg Citalopram Hydrobromide (Celexa) 20 mg PO DAILY [facility] Last Admin: 06/08/17 09:24 Dose: 20 mg Clonidine HCl (Catapres) 0.2 mg PO TID [facility] Last Admin: 06/08/17 17:39 Dose: 0.2 mg Clopidogrel Bisulfate (Plavix) 75 mg PO DAILY [facility] Last Admin: 06/08/17 09:22 Dose: 75 mg Docusate Sodium (Colace) 100 mg PO DAILY [facility] Last Admin: 06/08/17 09:15 Dose: 100 mg Heparin Sodium (Porcine) (Heparin) 5,000 units SC Q12 [facility] PRN Reason: Protocol Last Admin: 06/08/17 21:37 Dose: 5,000 units Hydralazine HCl (Apresoline) 100 mg PO Q8 [facility] Last Admin: 06/09/17 00:43 Dose: 100 mg Ipratropium [place] (Atrovent) 0.5 mg IH RQ6 PRN PRN Reason: Wheezing Last Admin: 05/21/17 04:43 Dose: 0.5 mg Lactulose (Enulose) 20 gm PO BID PRN PRN Reason: Constipation Last Admin: 06/04/17 06:23 Dose: 20 gm Lidocaine (Lidoderm) 1 ea TD DAILY PRN PRN Reason: Pain, moderate (4-7) Last Admin: 05/25/17 08:47 Dose: 1 ea Mupirocin (Bactroban Ointment) 1 applic TOP BID [facility] Last Admin: 06/08/17 17:38 Dose: Not Given Nitroglycerin (Nitro-Bid 2% Oint) 1 ea TOP Q6 [facility] Last Admin: 06/09/17 05:27 Dose: 1 ea Ondansetron HCl (Zofran Inj) 4 mg IVP Q4 PRN PRN Reason: Nausea/Vomiting Last Admin: 05/31/17 09:33 Dose: 4 mg Pantoprazole Sodium (Protonix Ec Tab) 40 mg PO DAILY [facility] Last Admin: 06/08/17 09:18 Dose: 40 mg Prednisone (Prednisone Tab) 10 mg PO DAILY [facility] Last Admin: 06/08/17 09:22 Dose: 10 mg Fluticasone/Salmeterol (Advair Diskus 500/50) 1 puff IH Q12 [facility] Last Admin: 06/08/17 21:24 Dose: 1 puff Sevelamer Carbonate (Renvela) 1.6 gm PO TIDWM [facility] Last Admin: 05/20/17 19:08 Dose: Not Given Sevelamer HCl (Renagel) 1,600 mg PO TIDWM [facility] Last Admin: 06/08/17 17:40 Dose: 1,600 mg Spironolactone (Aldactone) 50 mg PO DAILY [facility] Last Admin: 06/08/17 09:18 Dose: 50 mg Vitamin B Complex/Vit C/Folic Acid (Nephro-Yemi) 1 tab PO DAILY [facility] Last Admin: 06/08/17 09:24 Dose: 1 tab - Labs Labs: 06/09/17 05:30 06/09/17 05:30 PT 10.6 Seconds (9.8-13.1) 05/30/17 07:05 INR 0.9 (0.9-1.2) 05/30/17 07:05 APTT 24.5 Seconds (25.6-37.1) L 05/28/17 14:01 - Constitutional Appears: Well, No Acute Distress - Respiratory Exam Respiratory Exam: Clear to Ausculation Bilateral. absent: Respiratory Distress - Cardiovascular Exam Cardiovascular Exam: REGULAR RHYTHM. 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 Patient Now has ESRD and required hemodialysis 3 times per week for life. Has found placement and will be going on June 16. 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 Miles: patient is not a suitable candidate for invasive cardiac workup, recommend continue with Coreg 6.25mg Q12, Lipitor 20 mg PO QD, Plavix 75mg QD, Heparin 5,000 units SC BID -Torsemide 100mg discontinued due pt barely making urine -Per Home Advisor not a good candidate for MAN-i due to impaired renal function -Strict I/Os. -Daily weights COPD -stable, chronic -Prednisone 10mg PO QD, Advair, duonebs PRN -Could not find any evidence of failure on spirvia, pt seems to remember being on it and getting something else not sure of the reason, will do further investigation HTN -controlled -Cardio consult appreciated Dr. 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
[2017-06-09] MEDS: Fluticasone-Salmeterol 500-50mcg Diskus IH SCH ×2 (08:51→21:59)
[2017-06-09] MEDS: Pantoprazole 40 mg EC Tab PO SCH (08:52)
[2017-06-09] MEDS: Multivitamin Vitamin B Complex (Nephro-Vite) Tab PO SCH (08:52)
--- NOTE | 2017-06-09 14:25 | CP.PCM.PN ---
Subjective - Date & Time of Evaluation Date of Evaluation: 06/09/17 Time of Evaluation: 14:22 - Subjective Subjective: Patient appeared to be stable no complaint reported No new event reported Vital signs stable Objective - Vital Signs/Intake and Output Vital Signs (last 24 hours): Temp Pulse Resp BP Pulse Ox 98.5 F 72 20 126/80 96 06/09/17 08:11 06/09/17 12:35 06/09/17 08:11 06/09/17 12:35 06/09/17 08:11 - Medications Medications: Current Medications Acetaminophen (Tylenol 325mg Tab) 650 mg PO Q6 PRN PRN Reason: Pain, moderate (4-7) Last Admin: 06/09/17 11:05 Dose: 650 mg Amlodipine Besylate (Norvasc) 10 mg PO DAILY [facility] Last Admin: 06/09/17 08:52 Dose: 10 mg Aspirin (Aspirin Chewable) 81 mg PO DAILY [facility] Last Admin: 06/09/17 10:40 Dose: 81 mg Carvedilol (Coreg) 6.25 mg PO Q12 [facility] Last Admin: 06/09/17 08:53 Dose: 6.25 mg Citalopram Hydrobromide (Celexa) 20 mg PO DAILY [facility] Last Admin: 06/09/17 08:54 Dose: 20 mg Clonidine HCl (Catapres) 0.2 mg PO TID [facility] Last Admin: 06/09/17 12:35 Dose: 0.2 mg Clopidogrel Bisulfate (Plavix) 75 mg PO DAILY [facility] Last Admin: 06/09/17 08:53 Dose: 75 mg Docusate Sodium (Colace) 100 mg PO DAILY [facility] Last Admin: 06/09/17 08:51 Dose: 100 mg Hydralazine HCl (Apresoline) 100 mg PO Q8 [facility] Last Admin: 06/09/17 08:52 Dose: 100 mg Ipratropium [place] (Atrovent) 0.5 mg IH RQ6 PRN PRN Reason: Wheezing Last Admin: 05/21/17 04:43 Dose: 0.5 mg Lactulose (Enulose) 20 gm PO BID PRN PRN Reason: Constipation Last Admin: 06/04/17 06:23 Dose: 20 gm Lidocaine (Lidoderm) 1 ea TD DAILY PRN PRN Reason: Pain, moderate (4-7) Last Admin: 05/25/17 08:47 Dose: 1 ea Mupirocin (Bactroban Ointment) 1 applic TOP BID [facility] Last Admin: 06/09/17 08:51 Dose: 1 applic Nitroglycerin (Nitro-Bid 2% Oint) 1 ea TOP Q6 [facility] Last Admin: 06/09/17 10:39 Dose: 1 ea Ondansetron HCl (Zofran Inj) 4 mg IVP Q4 PRN PRN Reason: Nausea/Vomiting Last Admin: 05/31/17 09:33 Dose: 4 mg Pantoprazole Sodium (Protonix Ec Tab) 40 mg PO DAILY [facility] Last Admin: 06/09/17 08:52 Dose: 40 mg Prednisone (Prednisone Tab) 10 mg PO DAILY [facility] Last Admin: 06/09/17 08:53 Dose: 10 mg Fluticasone/Salmeterol (Advair Diskus 500/50) 1 puff IH Q12 [facility] Last Admin: 06/09/17 08:51 Dose: 1 puff Sevelamer Carbonate (Renvela) 1.6 gm PO TIDWM [facility] Last Admin: 05/20/17 19:08 Dose: Not Given Sevelamer HCl (Renagel) 1,600 mg PO TIDWM [facility] Last Admin: 06/09/17 12:34 Dose: 1,600 mg Spironolactone (Aldactone) 50 mg PO DAILY [facility] Last Admin: 06/09/17 08:52 Dose: 50 mg Vitamin B Complex/Vit C/Folic Acid (Nephro-Yemi) 1 tab PO DAILY [facility] Last Admin: 06/09/17 08:52 Dose: 1 tab - Labs Labs: 06/09/17 05:30 06/09/17 05:30 PT 10.6 Seconds (9.8-13.1) 05/30/17 07:05 INR 0.9 (0.9-1.2) 05/30/17 07:05 APTT 24.5 Seconds (25.6-37.1) L 05/28/17 14:01 - Constitutional Appears: No Acute Distress - ENT Exam ENT Exam: Mucous Membranes Moist - Respiratory Exam Respiratory Exam: absent: Chest Wall Tenderness - Cardiovascular Exam Cardiovascular Exam: absent: JVD, Rubs - GI/Abdominal Exam GI & Abdominal Exam: Normal Bowel Sounds - Extremities Exam Extremities Exam: absent: Calf Tenderness - Back Exam Back Exam: absent: CVA tenderness (L), CVA tenderness (R) - Neurological Exam Neurological Exam: Alert Assessment and Plan (1) Acute on chronic renal failure Assessment & Plan: End stage renal disease on maintenance hemodialysis Monday Continue EPO and dialysis 4000 units 3 times a week Continue calcitriol 0.25 g daily Patient is tolerating hemodialysis well Patient is waiting for placement And still waiting to have AV fistula created. Status: Acute (2) Acute systolic congestive heart failure Status: Acute
[2017-06-09] MEDS ORDERED: Epoetin Alfa 4000 UNIT/ML Inj IV ONE (14:26)
[2017-06-10] MEDS: Nitroglycerin 2% Ointment Foilpak UD TOP SCH ×4 (05:06→22:17)
[2017-06-10] MEDS: Fluticasone-Salmeterol 500-50mcg Diskus IH SCH ×2 (08:57→20:47)
[2017-06-10] MEDS: Multivitamin Vitamin B Complex (Nephro-Vite) Tab PO SCH (08:58)
[2017-06-10] MEDS: Pantoprazole 40 mg EC Tab PO SCH (08:59)
--- NOTE | 2017-06-10 12:54 | CP.PCM.PN ---
Objective - Vital Signs/Intake and Output Vital Signs (last 24 hours): Temp Pulse Resp BP Pulse Ox 97.3 F L 72 18 140/71 96 06/10/17 08:35 06/10/17 08:57 06/10/17 08:35 06/10/17 08:57 06/10/17 08:35 - Medications Medications: Current Medications Acetaminophen (Tylenol 325mg Tab) 650 mg PO Q6 PRN PRN Reason: Pain, moderate (4-7) Last Admin: 06/09/17 11:05 Dose: 650 mg Amlodipine Besylate (Norvasc) 10 mg PO DAILY [facility] Last Admin: 06/10/17 08:58 Dose: 10 mg Aspirin (Aspirin Chewable) 81 mg PO DAILY [facility] Last Admin: 06/10/17 08:59 Dose: 81 mg Carvedilol (Coreg) 6.25 mg PO Q12 [facility] Last Admin: 06/10/17 08:58 Dose: 6.25 mg Citalopram Hydrobromide (Celexa) 20 mg PO DAILY [facility] Last Admin: 06/10/17 08:58 Dose: 20 mg Clonidine HCl (Catapres) 0.2 mg PO TID [facility] Last Admin: 06/10/17 08:58 Dose: 0.2 mg Clopidogrel Bisulfate (Plavix) 75 mg PO DAILY [facility] Last Admin: 06/10/17 08:58 Dose: 75 mg Docusate Sodium (Colace) 100 mg PO DAILY [facility] Last Admin: 06/10/17 08:59 Dose: 100 mg Heparin Sodium (Porcine) (Heparin) 5,000 units SC Q12 [facility] PRN Reason: Protocol Last Admin: 06/10/17 11:53 Dose: 5,000 units Hydralazine HCl (Apresoline) 100 mg PO Q8 [facility] Last Admin: 06/10/17 08:57 Dose: 100 mg Ipratropium [place] (Atrovent) 0.5 mg IH RQ6 PRN PRN Reason: Wheezing Last Admin: 05/21/17 04:43 Dose: 0.5 mg Lactulose (Enulose) 20 gm PO BID PRN PRN Reason: Constipation Last Admin: 06/04/17 06:23 Dose: 20 gm Lidocaine (Lidoderm) 1 ea TD DAILY PRN PRN Reason: Pain, moderate (4-7) Last Admin: 05/25/17 08:47 Dose: 1 ea Mupirocin (Bactroban Ointment) 1 applic TOP BID [facility] Last Admin: 06/10/17 08:59 Dose: 1 applic Nitroglycerin (Nitro-Bid 2% Oint) 1 ea TOP Q6 [facility] Last Admin: 06/10/17 09:00 Dose: 1 ea Ondansetron HCl (Zofran Inj) 4 mg IVP Q4 PRN PRN Reason: Nausea/Vomiting Last Admin: 05/31/17 09:33 Dose: 4 mg Pantoprazole Sodium (Protonix Ec Tab) 40 mg PO DAILY [facility] Last Admin: 06/10/17 08:59 Dose: 40 mg Prednisone (Prednisone Tab) 10 mg PO DAILY [facility] Last Admin: 06/10/17 08:59 Dose: 10 mg Fluticasone/Salmeterol (Advair Diskus 500/50) 1 puff IH Q12 [facility] Last Admin: 06/10/17 08:57 Dose: 1 puff Sevelamer Carbonate (Renvela) 1.6 gm PO TIDWM [facility] Last Admin: 05/20/17 19:08 Dose: Not Given Sevelamer HCl (Renagel) 1,600 mg PO TIDWM [facility] Last Admin: 06/10/17 11:53 Dose: 1,600 mg Spironolactone (Aldactone) 50 mg PO DAILY [facility] Last Admin: 06/10/17 08:59 Dose: 50 mg Vitamin B Complex/Vit C/Folic Acid (Nephro-Yemi) 1 tab PO DAILY [facility] Last Admin: 06/10/17 08:58 Dose: 1 tab - Labs Labs: 06/09/17 05:30 06/09/17 05:30 PT 10.6 Seconds (9.8-13.1) 05/30/17 07:05 INR 0.9 (0.9-1.2) 05/30/17 07:05 APTT 24.5 Seconds (25.6-37.1) L 05/28/17 14:01
[2017-06-11] MEDS: Nitroglycerin 2% Ointment Foilpak UD TOP SCH ×4 (04:16→21:00)
[2017-06-11] MEDS: Multivitamin Vitamin B Complex (Nephro-Vite) Tab PO SCH (08:45)
[2017-06-11] MEDS: Pantoprazole 40 mg EC Tab PO SCH (08:46)
[2017-06-11] MEDS: Fluticasone-Salmeterol 500-50mcg Diskus IH SCH ×2 (12:19→20:57)
--- NOTE | 2017-06-11 15:52 | CP.PCM.PN ---
Subjective - Date & Time of Evaluation Date of Evaluation: 06/11/17 Time of Evaluation: 15:37 - Subjective Subjective: No acute overnight events. Pt seen and examined at the bedside. Denies any complaints of chest pain, SOB, abdominal pain. Refused heparin yesterday because the shot was painful and caused him to bleed. Objective - Vital Signs/Intake and Output Vital Signs (last 24 hours): Temp Pulse Resp BP Pulse Ox 97.8 F 74 18 149/70 97 06/11/17 08:38 06/11/17 13:42 06/11/17 08:38 06/11/17 13:42 06/11/17 08:38 - Medications Medications: Current Medications Acetaminophen (Tylenol 325mg Tab) 650 mg PO Q6 PRN PRN Reason: Pain, moderate (4-7) Last Admin: 06/09/17 11:05 Dose: 650 mg Amlodipine Besylate (Norvasc) 10 mg PO DAILY [facility] Last Admin: 06/11/17 08:45 Dose: 10 mg Aspirin (Aspirin Chewable) 81 mg PO DAILY [facility] Last Admin: 06/11/17 08:42 Dose: 81 mg Carvedilol (Coreg) 6.25 mg PO Q12 [facility] Last Admin: 06/11/17 08:44 Dose: 6.25 mg Citalopram Hydrobromide (Celexa) 20 mg PO DAILY [facility] Last Admin: 06/11/17 08:43 Dose: 20 mg Clonidine HCl (Catapres) 0.2 mg PO TID [facility] Last Admin: 06/11/17 13:42 Dose: 0.2 mg Clopidogrel Bisulfate (Plavix) 75 mg PO DAILY [facility] Last Admin: 06/11/17 08:46 Dose: 75 mg Docusate Sodium (Colace) 100 mg PO DAILY [facility] Last Admin: 06/11/17 08:43 Dose: 100 mg Heparin Sodium (Porcine) (Heparin) 5,000 units SC Q12 [facility] PRN Reason: Protocol Last Admin: 06/11/17 08:44 Dose: Not Given Hydralazine HCl (Apresoline) 100 mg PO Q8 [facility] Last Admin: 06/11/17 08:42 Dose: 100 mg Ipratropium [place] (Atrovent) 0.5 mg IH RQ6 PRN PRN Reason: Wheezing Last Admin: 05/21/17 04:43 Dose: 0.5 mg Lactulose (Enulose) 20 gm PO BID PRN PRN Reason: Constipation Last Admin: 06/11/17 12:17 Dose: 20 gm Lidocaine (Lidoderm) 1 ea TD DAILY PRN PRN Reason: Pain, moderate (4-7) Last Admin: 05/25/17 08:47 Dose: 1 ea Mupirocin (Bactroban Ointment) 1 applic TOP BID [facility] Last Admin: 06/11/17 13:45 Dose: Not Given Nitroglycerin (Nitro-Bid 2% Oint) 1 ea TOP Q6 [facility] Last Admin: 06/11/17 10:00 Dose: 1 ea Ondansetron HCl (Zofran Inj) 4 mg IVP Q4 PRN PRN Reason: Nausea/Vomiting Last Admin: 05/31/17 09:33 Dose: 4 mg Pantoprazole Sodium (Protonix Ec Tab) 40 mg PO DAILY [facility] Last Admin: 06/11/17 08:46 Dose: 40 mg Prednisone (Prednisone Tab) 10 mg PO DAILY [facility] Last Admin: 06/11/17 08:46 Dose: 10 mg Fluticasone/Salmeterol (Advair Diskus 500/50) 1 puff IH Q12 [facility] Last Admin: 06/11/17 12:19 Dose: 1 puff Sevelamer Carbonate (Renvela) 1.6 gm PO TIDWM [facility] Last Admin: 05/20/17 19:08 Dose: Not Given Sevelamer HCl (Renagel) 1,600 mg PO TIDWM [facility] Last Admin: 06/11/17 13:42 Dose: 1,600 mg Spironolactone (Aldactone) 50 mg PO DAILY [facility] Last Admin: 06/11/17 08:41 Dose: 50 mg Vitamin B Complex/Vit C/Folic Acid (Nephro-Yemi) 1 tab PO DAILY [facility] Last Admin: 06/11/17 08:45 Dose: 1 tab - Labs Labs: 06/09/17 05:30 06/09/17 05:30 PT 10.6 Seconds (9.8-13.1) 05/30/17 07:05 INR 0.9 (0.9-1.2) 05/30/17 07:05 APTT 24.5 Seconds (25.6-37.1) L 05/28/17 14:01 - Constitutional Appears: Well - Head Exam Head Exam: ATRAUMATIC, NORMAL INSPECTION - Neck Exam Neck Exam: absent: Thyromegaly - Respiratory Exam Respiratory Exam: Clear to Ausculation Bilateral. absent: Rales, Wheezes, Respiratory Distress - Cardiovascular Exam Cardiovascular Exam: REGULAR RHYTHM, JVD. absent: +S1, +S2, Murmur - GI/Abdominal Exam GI & Abdominal Exam: Normal Bowel Sounds. absent: Distended, Guarding, Rigid, Soft, Tenderness, Organomegaly - Extremities Exam Extremities Exam: Normal Capillary Refill. 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 Patient Now has ESRD and required hemodialysis 3 times per week for life. Has found placement and will be going on June 16. 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 Miles: patient is not a suitable candidate for invasive cardiac workup, recommend continue with Coreg 6.25mg Q12, Lipitor 20 mg PO QD, Plavix 75mg QD, Heparin 5,000 units SC BID -Torsemide 100mg discontinued due pt barely making urine -Per Battery Container Inspector not a good candidate for MAN-i due to impaired renal function -Strict I/Os. -Daily weights COPD -stable, chronic -Prednisone 10mg PO QD, Advair, duonebs PRN -Could not find any evidence of failure on spirvia, pt seems to remember being on it and getting something else not sure of the reason, will do further investigation HTN -controlled -Cardio consult appreciated Dr. 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 Spoke to pt and he will agree to take tomorrow -Pantoprazole 40mg PO QD
[2017-06-12] MEDS: Nitroglycerin 2% Ointment Foilpak UD TOP SCH ×4 (03:16→22:01)
[2017-06-12] MEDS: Fluticasone-Salmeterol 500-50mcg Diskus IH SCH ×2 (09:14→20:53)
[2017-06-12] MEDS: Multivitamin Vitamin B Complex (Nephro-Vite) Tab PO SCH (09:17)
[2017-06-12] MEDS: Pantoprazole 40 mg EC Tab PO SCH (09:20)
[2017-06-13] MEDS: Nitroglycerin 2% Ointment Foilpak UD TOP SCH ×4 (04:04→21:44)
[2017-06-13] MEDS: Fluticasone-Salmeterol 500-50mcg Diskus IH SCH ×2 (08:46→21:44)
[2017-06-13] MEDS: Multivitamin Vitamin B Complex (Nephro-Vite) Tab PO SCH (08:48)
[2017-06-13] MEDS: Pantoprazole 40 mg EC Tab PO SCH (08:50)
[2017-06-13] MEDS ORDERED: Dexamethasone 10 MG in Sodium Chloride 0.9% 50 ML IVPB SCH (10:45)
[2017-06-13] MEDS ORDERED: Sodium Chloride 0.9% 500 ML IV SCH (10:45)
--- NOTE | 2017-06-13 10:56 | CP.PCM.PN ---
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 Patient is still in the hospital because of placement problem. Objective - Vital Signs/Intake and Output Vital Signs (last 24 hours): Temp Pulse Resp BP Pulse Ox 99.6 F 120 H 22 119/67 96 06/13/17 08:13 06/13/17 09:07 06/13/17 08:13 06/13/17 09:07 06/13/17 08:13 - Medications Medications: Current Medications Acetaminophen (Tylenol 325mg Tab) 650 mg PO Q6 PRN PRN Reason: Pain, moderate (4-7) Last Admin: 06/09/17 11:05 Dose: 650 mg Amlodipine Besylate (Norvasc) 10 mg PO DAILY [facility] Last Admin: 06/13/17 08:49 Dose: 10 mg Aspirin (Aspirin Chewable) 81 mg PO DAILY [facility] Last Admin: 06/13/17 08:50 Dose: 81 mg Carvedilol (Coreg) 6.25 mg PO Q12 [facility] Last Admin: 06/13/17 08:48 Dose: 6.25 mg Citalopram Hydrobromide (Celexa) 20 mg PO DAILY [facility] Last Admin: 06/13/17 08:50 Dose: 20 mg Clonidine HCl (Catapres) 0.2 mg PO TID [facility] Last Admin: 06/13/17 08:46 Dose: 0.2 mg Clopidogrel Bisulfate (Plavix) 75 mg PO DAILY [facility] Last Admin: 06/13/17 08:48 Dose: 75 mg Docusate Sodium (Colace) 100 mg PO DAILY [facility] Last Admin: 06/13/17 08:48 Dose: 100 mg Heparin Sodium (Porcine) (Heparin) 5,000 units SC Q12 [facility] PRN Reason: Protocol Last Admin: 06/13/17 08:51 Dose: Not Given Hydralazine HCl (Apresoline) 100 mg PO Q8 [facility] Last Admin: 06/13/17 00:00 Dose: 100 mg Cyclophosphamide 650 mg/ (Sodium Chloride) 250 mls @ 0 mls/hr IV ONCE ONE PRN Reason: Per Protocol Stop: 06/13/17 10:30 Diphenhydramine HCl 25 mg/ (Sodium Chloride) 50.5 mls @ 101 mls/hr IVPB ONCE [facility] Stop: 06/13/17 17:00 Dexamethasone 10 mg/ Sodium (Chloride) 51 mls @ 102 mls/hr IVPB ONCE [facility] Stop: 06/13/17 17:00 Sodium Chloride (Sodium Chloride 0.9%) 500 mls @ 100 mls/hr IV .Q5H [facility] Stop: 06/13/17 15:44 Ondansetron HCl 16 mg/ Sodium (Chloride) 58 mls @ 116 mls/hr IVPB ONCE [facility] Stop: 06/13/17 17:00 Famotidine 20 mg/ Sodium (Chloride) 52 mls @ 104 mls/hr IVP ONCE [facility] Stop: 06/13/17 17:00 Ipratropium [place] (Atrovent) 0.5 mg IH RQ6 PRN PRN Reason: Wheezing Last Admin: 05/21/17 04:43 Dose: 0.5 mg Lactulose (Enulose) 20 gm PO BID PRN PRN Reason: Constipation Last Admin: 06/13/17 06:46 Dose: 20 gm Lidocaine (Lidoderm) 1 ea TD DAILY PRN PRN Reason: Pain, moderate (4-7) Last Admin: 05/25/17 08:47 Dose: 1 ea Mupirocin (Bactroban Ointment) 1 applic TOP BID [facility] Last Admin: 06/13/17 08:46 Dose: 1 applic Nitroglycerin (Nitro-Bid 2% Oint) 1 ea TOP Q6 [facility] Last Admin: 06/13/17 09:07 Dose: 1 ea Ondansetron HCl (Zofran Inj) 4 mg IVP Q4 PRN PRN Reason: Nausea/Vomiting Last Admin: 05/31/17 09:33 Dose: 4 mg Pantoprazole Sodium (Protonix Ec Tab) 40 mg PO DAILY [facility] Last Admin: 06/13/17 08:50 Dose: 40 mg Prednisone (Prednisone Tab) 10 mg PO DAILY [facility] Last Admin: 06/13/17 08:49 Dose: 10 mg Fluticasone/Salmeterol (Advair Diskus 500/50) 1 puff IH Q12 [facility] Last Admin: 06/13/17 08:46 Dose: 1 puff Sevelamer Carbonate (Renvela) 1.6 gm PO TIDWM [facility] Last Admin: 05/20/17 19:08 Dose: Not Given Sevelamer HCl (Renagel) 1,600 mg PO TIDWM [facility] Last Admin: 06/13/17 08:46 Dose: 1,600 mg Spironolactone (Aldactone) 50 mg PO DAILY [facility] Last Admin: 06/13/17 08:50 Dose: 50 mg Vitamin B Complex/Vit C/Folic Acid (Nephro-Yemi) 1 tab PO DAILY [facility] Last Admin: 06/13/17 08:48 Dose: 1 tab - Labs Labs: 06/09/17 05:30 06/09/17 05:30 PT 10.6 Seconds (9.8-13.1) 05/30/17 07:05 INR 0.9 (0.9-1.2) 05/30/17 07:05 APTT 24.5 Seconds (25.6-37.1) L 05/28/17 14:01 Assessment and Plan (1) Acute on chronic renal failure Status: Acute (2) Acute systolic congestive heart failure Status: Acute
[2017-06-13] MEDS ORDERED: SODIUM CHLORIDE 0.45% IV SCH (11:15)
[2017-06-13] MEDS ORDERED: CYCLOPHOSPHAMIDE IV SCH (11:15)
--- NOTE | 2017-06-13 14:13 | CP.PCM.PN ---
Subjective - Date & Time of Evaluation Date of Evaluation: 06/13/17 Time of Evaluation: 09:30 - Subjective Subjective: Pt. seen at bedside standing up and eating breakfast. Pt. with no complaints at this time. Overnight uneventful. On ROS, pt. denies any headache, fever, chills chest pain, abdominal pain, limb pain, or joint pain. Objective - Vital Signs/Intake and Output Vital Signs (last 24 hours): Temp Pulse Resp BP Pulse Ox 99.6 F 89 22 103/57 L 96 06/13/17 08:13 06/13/17 12:24 06/13/17 08:13 06/13/17 12:24 06/13/17 08:13 - Medications Medications: Current Medications Acetaminophen (Tylenol 325mg Tab) 650 mg PO Q6 PRN PRN Reason: Pain, moderate (4-7) Last Admin: 06/09/17 11:05 Dose: 650 mg Amlodipine Besylate (Norvasc) 10 mg PO DAILY [facility] Last Admin: 06/13/17 08:49 Dose: 10 mg Aspirin (Aspirin Chewable) 81 mg PO DAILY [facility] Last Admin: 06/13/17 08:50 Dose: 81 mg Carvedilol (Coreg) 6.25 mg PO Q12 [facility] Last Admin: 06/13/17 08:48 Dose: 6.25 mg Citalopram Hydrobromide (Celexa) 20 mg PO DAILY [facility] Last Admin: 06/13/17 08:50 Dose: 20 mg Clonidine HCl (Catapres) 0.2 mg PO TID [facility] Last Admin: 06/13/17 12:24 Dose: 0.2 mg Clopidogrel Bisulfate (Plavix) 75 mg PO DAILY [facility] Last Admin: 06/13/17 08:48 Dose: 75 mg Docusate Sodium (Colace) 100 mg PO DAILY [facility] Last Admin: 06/13/17 08:48 Dose: 100 mg Heparin Sodium (Porcine) (Heparin) 5,000 units SC Q12 [facility] PRN Reason: Protocol Last Admin: 06/13/17 08:51 Dose: Not Given Hydralazine HCl (Apresoline) 100 mg PO Q8 [facility] Last Admin: 06/13/17 11:18 Dose: 100 mg Cyclophosphamide 650 mg/ (Sodium Chloride) 282.5 mls @ 70.625 mls/hr IV ONCE [facility] PRN Reason: Per Protocol Stop: 06/13/17 18:00 Last Admin: 06/13/17 13:26 Dose: 70.625 mls/hr Diphenhydramine HCl 25 mg/ (Sodium Chloride) 50.5 mls @ 101 mls/hr IVPB ONCE [facility] Stop: 06/13/17 17:00 Last Admin: 06/13/17 11:27 Dose: 101 mls/hr Dexamethasone 10 mg/ Sodium (Chloride) 51 mls @ 102 mls/hr IVPB ONCE [facility] Stop: 06/13/17 17:00 Last Admin: 06/13/17 11:27 Dose: 102 mls/hr Sodium Chloride (Sodium Chloride 0.9%) 500 mls @ 100 mls/hr IV .Q5H [facility] Stop: 06/13/17 15:44 Last Admin: 06/13/17 11:26 Dose: 100 mls/hr Ondansetron HCl 16 mg/ Sodium (Chloride) 58 mls @ 116 mls/hr IVPB ONCE [facility] Stop: 06/13/17 17:00 Last Admin: 06/13/17 11:27 Dose: 116 mls/hr Famotidine 20 mg/ Sodium (Chloride) 52 mls @ 104 mls/hr IVP ONCE [facility] Stop: 06/13/17 17:00 Last Admin: 06/13/17 11:27 Dose: 104 mls/hr Ipratropium [place] (Atrovent) 0.5 mg IH RQ6 PRN PRN Reason: Wheezing Last Admin: 05/21/17 04:43 Dose: 0.5 mg Lactulose (Enulose) 20 gm PO BID PRN PRN Reason: Constipation Last Admin: 06/13/17 06:46 Dose: 20 gm Lidocaine (Lidoderm) 1 ea TD DAILY PRN PRN Reason: Pain, moderate (4-7) Last Admin: 05/25/17 08:47 Dose: 1 ea Mupirocin (Bactroban Ointment) 1 applic TOP BID [facility] Last Admin: 06/13/17 08:46 Dose: 1 applic Nitroglycerin (Nitro-Bid 2% Oint) 1 ea TOP Q6 [facility] Last Admin: 06/13/17 09:07 Dose: 1 ea Ondansetron HCl (Zofran Inj) 4 mg IVP Q4 PRN PRN Reason: Nausea/Vomiting Last Admin: 05/31/17 09:33 Dose: 4 mg Prednisone (Prednisone Tab) 10 mg PO DAILY [facility] Last Admin: 06/13/17 08:49 Dose: 10 mg Fluticasone/Salmeterol (Advair Diskus 500/50) 1 puff IH Q12 [facility] Last Admin: 06/13/17 08:46 Dose: 1 puff Sevelamer Carbonate (Renvela) 1.6 gm PO TIDWM [facility] Last Admin: 05/20/17 19:08 Dose: Not Given Sevelamer HCl (Renagel) 1,600 mg PO TIDWM [facility] Last Admin: 06/13/17 12:25 Dose: 1,600 mg Spironolactone (Aldactone) 50 mg PO DAILY [facility] Last Admin: 06/13/17 08:50 Dose: 50 mg Vitamin B Complex/Vit C/Folic Acid (Nephro-Yemi) 1 tab PO DAILY [facility] Last Admin: 06/13/17 08:48 Dose: 1 tab - Labs Labs: 06/09/17 05:30 06/09/17 05:30 PT 10.6 Seconds (9.8-13.1) 05/30/17 07:05 INR 0.9 (0.9-1.2) 05/30/17 07:05 APTT 24.5 Seconds (25.6-37.1) L 05/28/17 14:01 - Constitutional Appears: Non-toxic, No Acute Distress - ENT Exam ENT Exam: Mucous Membranes Moist - Respiratory Exam Respiratory Exam: NORMAL BREATHING PATTERN - Cardiovascular Exam Cardiovascular Exam: absent: JVD - Extremities Exam Additional comments: Left arm fistula - Neurological Exam Neurological Exam: Alert, Awake, Oriented x3 - Psychiatric Exam Psychiatric exam: Normal Affect, Normal Mood Assessment and Plan - Assessment and Plan (Free Text) Assessment: 67 yr old homeless male with PMHx including HTN, CHF, CKD, 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 Plan: End Stage Renal Disease (HD MWF) -as per conversation with Nephrology Dr. Sandoval Pt. can get Dialysis on as an outpatient and planned inpatient dialysis for 06/14/17 can be held if patient discharged. 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
[2017-06-14] MEDS: Nitroglycerin 2% Ointment Foilpak UD TOP SCH ×4 (04:19→21:59)
[2017-06-14] MEDS: Fluticasone-Salmeterol 500-50mcg Diskus IH SCH ×2 (09:48→22:00)
[2017-06-14] MEDS: Multivitamin Vitamin B Complex (Nephro-Vite) Tab PO SCH (09:48)
--- NOTE | 2017-06-14 14:23 | CP.PCM.PN ---
Subjective - Date & Time of Evaluation Date of Evaluation: 06/14/17 Time of Evaluation: 07:00 - Subjective Subjective: Patient seen lying in bed comfortably. Denies CP, SOB, palpatations, N/V/D, abdominal pain, new rashes, dysuria, Calf pain, fever, chills. Spoke with the patient about possible discharge soon, patient became agitated and stated he would sign out AMA. Objective - Vital Signs/Intake and Output Vital Signs (last 24 hours): Temp Pulse Resp BP Pulse Ox 97.9 F 71 20 151/76 H 97 06/14/17 08:40 06/14/17 10:20 06/14/17 08:40 06/14/17 10:20 06/14/17 08:40 - Medications Medications: Current Medications Acetaminophen (Tylenol 325mg Tab) 650 mg PO Q6 PRN PRN Reason: Pain, moderate (4-7) Last Admin: 06/09/17 11:05 Dose: 650 mg Amlodipine Besylate (Norvasc) 10 mg PO DAILY [facility] Last Admin: 06/14/17 10:09 Dose: 10 mg Aspirin (Aspirin Chewable) 81 mg PO DAILY [facility] Last Admin: 06/14/17 10:08 Dose: 81 mg Carvedilol (Coreg) 6.25 mg PO Q12 [facility] Last Admin: 06/14/17 09:49 Dose: 6.25 mg Citalopram Hydrobromide (Celexa) 20 mg PO DAILY [facility] Last Admin: 06/14/17 09:48 Dose: 20 mg Clonidine HCl (Catapres) 0.2 mg PO TID [facility] Last Admin: 06/14/17 09:49 Dose: 0.2 mg Clopidogrel Bisulfate (Plavix) 75 mg PO DAILY [facility] Last Admin: 06/14/17 10:08 Dose: 75 mg Docusate Sodium (Colace) 100 mg PO DAILY [facility] Last Admin: 06/14/17 09:50 Dose: 100 mg Heparin Sodium (Porcine) (Heparin) 5,000 units SC Q12 [facility] PRN Reason: Protocol Last Admin: 06/14/17 09:48 Dose: 5,000 units Hydralazine HCl (Apresoline) 100 mg PO Q8 [facility] Last Admin: 06/14/17 09:48 Dose: 100 mg Ipratropium [place] (Atrovent) 0.5 mg IH RQ6 PRN PRN Reason: Wheezing Last Admin: 05/21/17 04:43 Dose: 0.5 mg Lactulose (Enulose) 20 gm PO BID PRN PRN Reason: Constipation Last Admin: 06/13/17 06:46 Dose: 20 gm Lidocaine (Lidoderm) 1 ea TD DAILY PRN PRN Reason: Pain, moderate (4-7) Last Admin: 05/25/17 08:47 Dose: 1 ea Mupirocin (Bactroban Ointment) 1 applic TOP BID [facility] Last Admin: 06/14/17 09:49 Dose: 1 applic Nitroglycerin (Nitro-Bid 2% Oint) 1 ea TOP Q6 [facility] Last Admin: 06/14/17 10:20 Dose: 1 ea Ondansetron HCl (Zofran Inj) 4 mg IVP Q4 PRN PRN Reason: Nausea/Vomiting Last Admin: 05/31/17 09:33 Dose: 4 mg Prednisone (Prednisone Tab) 10 mg PO DAILY [facility] Last Admin: 06/14/17 10:08 Dose: 10 mg Fluticasone/Salmeterol (Advair Diskus 500/50) 1 puff IH Q12 [facility] Last Admin: 06/14/17 09:48 Dose: 1 puff Sevelamer Carbonate (Renvela) 1.6 gm PO TIDWM [facility] Last Admin: 05/20/17 19:08 Dose: Not Given Sevelamer HCl (Renagel) 1,600 mg PO TIDWM [facility] Last Admin: 06/14/17 09:48 Dose: 1,600 mg Spironolactone (Aldactone) 50 mg PO DAILY [facility] Last Admin: 06/14/17 09:49 Dose: 50 mg Vitamin B Complex/Vit C/Folic Acid (Nephro-Yemi) 1 tab PO DAILY [facility] Last Admin: 06/14/17 09:48 Dose: 1 tab - Labs Labs: 06/09/17 05:30 06/09/17 05:30 PT 10.6 Seconds (9.8-13.1) 05/30/17 07:05 INR 0.9 (0.9-1.2) 05/30/17 07:05 APTT 24.5 Seconds (25.6-37.1) L 05/28/17 14:01 - Constitutional Appears: Well, No Acute Distress - Neck Exam Additional comments: PICC line in place- Right side. No redness, swelling, or dishcarge - Cardiovascular Exam Cardiovascular Exam: REGULAR RHYTHM, +S1, +S2. absent: Murmur - GI/Abdominal Exam GI & Abdominal Exam: Soft, Normal Bowel Sounds. absent: Distended, Tenderness - Extremities Exam Extremities Exam: absent: Calf Tenderness, Pedal Edema Additional comments: AVF in Left arm, Bruits auscultated. No redness, swelling, or discharge. 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 Plan: End Stage Renal Disease (HD MWF) -as per conversation with Nephrology Dr. Sandoval Pt. can get Dialysis on as an outpatient and planned inpatient dialysis for 06/14/17 can be held if patient discharged. 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
[2017-06-15] MEDS: Nitroglycerin 2% Ointment Foilpak UD TOP SCH ×4 (04:38→22:38)
[2017-06-15] MEDS: Fluticasone-Salmeterol 500-50mcg Diskus IH SCH ×2 (09:11→20:55)
[2017-06-15] MEDS: Multivitamin Vitamin B Complex (Nephro-Vite) Tab PO SCH (09:15)
[2017-06-16] MEDS: Nitroglycerin 2% Ointment Foilpak UD TOP SCH ×4 (04:03→21:46)
--- NOTE | 2017-06-16 09:02 | CP.PCM.PN ---
Subjective - Date & Time of Evaluation Date of Evaluation: 06/16/17 Time of Evaluation: 07:00 - Subjective Subjective: No acute overnight events. Pt seen and evaluated this morning. Complains of watery and itchy eyes starting yesterday. States he is having a nonproductive cough for 2 days now. ALso complains of a new rash on his shoulder, not associated with pain or itchiness. Denies eye pain, visual disturbances, fever, chills, rashes, n/v/d, hematuria, SOB, CP, palpatations Objective - Vital Signs/Intake and Output Vital Signs (last 24 hours): Temp Pulse Resp BP Pulse Ox 98.7 F 65 20 142/69 96 06/16/17 08:22 06/16/17 08:22 06/16/17 08:22 06/16/17 08:22 06/16/17 08:22 - Medications Medications: Current Medications Acetaminophen (Tylenol 325mg Tab) 650 mg PO Q6 PRN PRN Reason: Pain, moderate (4-7) Last Admin: 06/09/17 11:05 Dose: 650 mg Amlodipine Besylate (Norvasc) 10 mg PO DAILY [facility] Last Admin: 06/15/17 09:15 Dose: 10 mg Aspirin (Aspirin Chewable) 81 mg PO DAILY [facility] Last Admin: 06/15/17 09:12 Dose: 81 mg Carvedilol (Coreg) 6.25 mg PO Q12 [facility] Last Admin: 06/15/17 20:55 Dose: 6.25 mg Citalopram Hydrobromide (Celexa) 20 mg PO DAILY [facility] Last Admin: 06/15/17 09:13 Dose: 20 mg Clonidine HCl (Catapres) 0.2 mg PO TID [facility] Last Admin: 06/15/17 18:05 Dose: 0.2 mg Clopidogrel Bisulfate (Plavix) 75 mg PO DAILY [facility] Last Admin: 06/15/17 09:15 Dose: 75 mg Docusate Sodium (Colace) 100 mg PO DAILY [facility] Last Admin: 06/15/17 09:13 Dose: 100 mg Heparin Sodium (Porcine) (Heparin) 5,000 units SC Q12 [facility] PRN Reason: Protocol Last Admin: 06/15/17 20:56 Dose: Not Given Hydralazine HCl (Apresoline) 100 mg PO Q8 [facility] Last Admin: 06/16/17 00:34 Dose: 100 mg Ipratropium [place] (Atrovent) 0.5 mg IH RQ6 PRN PRN Reason: Wheezing Last Admin: 05/21/17 04:43 Dose: 0.5 mg Lactulose (Enulose) 20 gm PO BID PRN PRN Reason: Constipation Last Admin: 06/15/17 09:16 Dose: 20 gm Lidocaine (Lidoderm) 1 ea TD DAILY PRN PRN Reason: Pain, moderate (4-7) Last Admin: 05/25/17 08:47 Dose: 1 ea Mupirocin (Bactroban Ointment) 1 applic TOP BID [facility] Last Admin: 06/15/17 18:05 Dose: 1 applic Nitroglycerin (Nitro-Bid 2% Oint) 1 ea TOP Q6 [facility] Last Admin: 06/16/17 04:03 Dose: 1 ea Fluticasone/Salmeterol (Advair Diskus 500/50) 1 puff IH Q12 [facility] Last Admin: 06/15/17 20:55 Dose: 1 puff Sevelamer Carbonate (Renvela) 1.6 gm PO TIDWM [facility] Last Admin: 05/20/17 19:08 Dose: Not Given Sevelamer HCl (Renagel) 1,600 mg PO TIDWM [facility] Last Admin: 06/15/17 18:06 Dose: 1,600 mg Spironolactone (Aldactone) 50 mg PO DAILY [facility] Last Admin: 06/15/17 09:12 Dose: 50 mg Vitamin B Complex/Vit C/Folic Acid (Nephro-Yemi) 1 tab PO DAILY [facility] Last Admin: 06/15/17 09:15 Dose: 1 tab - Labs Labs: 06/09/17 05:30 06/09/17 05:30 PT 10.6 Seconds (9.8-13.1) 05/30/17 07:05 INR 0.9 (0.9-1.2) 05/30/17 07:05 APTT 24.5 Seconds (25.6-37.1) L 05/28/17 14:01 - Constitutional Appears: Well, Toxic, No Acute Distress - Eye Exam Eye Exam: Conjunctival injection, EOMI. absent: Periorbital tenderness Pupil Exam: PERRL Additional comments: Left eye, small hemorrhage on lower part of eye - Respiratory Exam Respiratory Exam: Rhonchi. absent: Respiratory Distress - Cardiovascular Exam Cardiovascular Exam: REGULAR RHYTHM, +S1, +S2. absent: Murmur - GI/Abdominal Exam GI & Abdominal Exam: Soft, Normal Bowel Sounds. 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 Patient Now has ESRD and required hemodialysis 3 times per week for life. Has found placement and will be going on June 16. 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 Miles: patient is not a suitable candidate for invasive cardiac workup, recommend continue with Coreg 6.25mg Q12, Lipitor 20 mg PO QD, Plavix 75mg QD, Heparin 5,000 units SC BID -Torsemide 100mg discontinued due pt barely making urine -Per Sign Language Interpreter not a good candidate for MAN-i due to impaired renal function -Strict I/Os. -Daily weights COPD -stable, chronic -Prednisone 10mg PO QD, Advair, duonebs PRN -Could not find any evidence of failure on spirvia, pt seems to remember being on it and getting something else not sure of the reason, will do further investigation HTN -controlled -Cardio consult appreciated Dr. 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 Spoke to pt and he will agree to take tomorrow -Pantoprazole 40mg PO QD
[2017-06-16] MEDS: Fluticasone-Salmeterol 500-50mcg Diskus IH SCH ×2 (09:33→20:26)
[2017-06-16] MEDS: Multivitamin Vitamin B Complex (Nephro-Vite) Tab PO SCH (13:09)
[2017-06-16] MEDS ORDERED: Artificial Tears Opht Soln OU PRN (13:38)
[2017-06-17] MEDS: Nitroglycerin 2% Ointment Foilpak UD TOP SCH ×2 (04:34→09:47)
[2017-06-17 08:36] LABS: HEMOGLOBIN 10.4 g/dL (12.0-18.0); MEAN CORPUSCULAR HGB CONC 33.2 g/dL (33.0-37.0); RBC 3.13 Mil/uL (4.40-5.90); RED CELL DISTRIBUTION WIDTH 18.7 % (11.5-14.5); WHITE BLOOD COUNT 7.4 K/uL (4.8-10.8)
[2017-06-17 08:46] LABS: MEAN CELL VOLUME 99.5 fl (80.0-94.0)
[2017-06-17 08:48] LABS: CALCIUM 8.5 mg/dL (8.4-10.2); MAGNESIUM 2.1 MG/DL (1.6-2.3)
[2017-06-17] MEDS: Fluticasone-Salmeterol 500-50mcg Diskus IH SCH ×2 (09:45→22:17)
[2017-06-17] MEDS: Multivitamin Vitamin B Complex (Nephro-Vite) Tab PO SCH (09:48)
--- NOTE | 2017-06-17 13:47 | CP.PCM.PN ---
Subjective - Date & Time of Evaluation Date of Evaluation: 06/17/17 Time of Evaluation: 08:30 - Subjective Subjective: Pt. seen at bedside lying in bed using his cell phone. Pt. with no complaints at this time. Overnight uneventful. On ROS, pt. denies any headache, chest pain , dyspnea, abdominal pain, joint pain, fever, chills, or dysuria. Objective - Vital Signs/Intake and Output Vital Signs (last 24 hours): Temp Pulse Resp BP Pulse Ox 99.6 F 81 18 121/60 95 06/17/17 10:00 06/17/17 10:00 06/17/17 10:00 06/17/17 10:00 06/17/17 10:00 - Medications Medications: Current Medications Acetaminophen (Tylenol 325mg Tab) 650 mg PO Q6 PRN PRN Reason: Pain, moderate (4-7) Last Admin: 06/09/17 11:05 Dose: 650 mg Amlodipine Besylate (Norvasc) 10 mg PO DAILY [facility] Last Admin: 06/17/17 09:46 Dose: 10 mg Artificial Tears (Artificial Tears) 2 drop OU Q4 PRN PRN Reason: Dry eyes Carvedilol (Coreg) 6.25 mg PO Q12 [facility] Last Admin: 06/17/17 09:48 Dose: 6.25 mg Citalopram Hydrobromide (Celexa) 20 mg PO DAILY [facility] Last Admin: 06/17/17 09:47 Dose: 20 mg Clopidogrel Bisulfate (Plavix) 75 mg PO DAILY [facility] Last Admin: 06/17/17 09:49 Dose: 75 mg Docusate Sodium (Colace) 100 mg PO DAILY [facility] Last Admin: 06/17/17 09:58 Dose: 100 mg Heparin Sodium (Porcine) (Heparin) 5,000 units SC Q12 [facility] PRN Reason: Protocol Last Admin: 06/17/17 09:49 Dose: Not Given Hydralazine HCl (Apresoline) 100 mg PO Q8 [facility] Last Admin: 06/17/17 09:45 Dose: 100 mg Lactulose (Enulose) 20 gm PO BID PRN PRN Reason: Constipation Last Admin: 06/17/17 09:59 Dose: 20 gm Lidocaine (Lidoderm) 1 ea TD DAILY PRN PRN Reason: Pain, moderate (4-7) Last Admin: 05/25/17 08:47 Dose: 1 ea Mupirocin (Bactroban Ointment) 1 applic TOP BID [facility] Last Admin: 06/17/17 09:50 Dose: 1 applic Nitroglycerin (Nitro-Bid 2% Oint) 1 ea TOP Q6 [facility] Last Admin: 06/17/17 09:47 Dose: 1 ea Fluticasone/Salmeterol (Advair Diskus 500/50) 1 puff IH Q12 [facility] Last Admin: 06/17/17 09:45 Dose: 1 puff Sevelamer Carbonate (Renvela) 1.6 gm PO TIDWM [facility] Last Admin: 05/20/17 19:08 Dose: Not Given Sevelamer HCl (Renagel) 1,600 mg PO TIDWM [facility] Last Admin: 06/17/17 12:26 Dose: 1,600 mg Spironolactone (Aldactone) 50 mg PO DAILY [facility] Last Admin: 06/17/17 09:48 Dose: 50 mg - Labs Labs: 06/17/17 06:30 06/17/17 06:30 PT 10.6 Seconds (9.8-13.1) 05/30/17 07:05 INR 0.9 (0.9-1.2) 05/30/17 07:05 APTT 24.5 Seconds (25.6-37.1) L 05/28/17 14:01 - Constitutional Appears: Non-toxic - Eye Exam Eye Exam: Normal appearance - Respiratory Exam Respiratory Exam: Clear to Ausculation Bilateral, NORMAL BREATHING PATTERN - Cardiovascular Exam Cardiovascular Exam: REGULAR RHYTHM, +S1, +S2 - GI/Abdominal Exam GI & Abdominal Exam: Soft. absent: Tenderness - Extremities Exam Extremities Exam: Normal Inspection. 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 Patient now with ESRD requiring hemodialysis. 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 to follow up with Dr. Sandoval at [facility] Systolic CHF- stable -Echo 04/02/17: LVEF 30-35% -Aldactone 50mg daily -Cardiology Dr. 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
--- NOTE | 2017-06-17 18:11 | CP.PCM.PN ---
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 No acute need today. Continue with Nephrovite 1 tab/day. Continue with phos binders BP control with meds as ordered. Patient on RAAS noel as with Aldactone. Glycemic control, Dialysis consistent diet Further work up/management as per primary team Dose meds/antibiotics (if needed) for GFR <10 status. Avoid fleets enema/ magnesium based laxatives. he is pending placement for dialysis in outpt units Thanks for allowing me to participate in care of your patient. Will follow patient with you. Please call if any Qs Dr Darren Samano Office: [phone] Subjective: Noted events overnight. Patients feels okay except vomitting today. Denies chest pain, palpitation. denies shortness of breath Physical Examination: General Appearance: Comfortable, in no acute respiratory distress, co- operative. Vitals reviewed and noted as below Lungs: Normal respiratory rate/effort. Breath sounds bilateral equal and clear Heart: Normal rate. s1s2 normal. No rub or gallop. Extremities: no edema. LUE AVF with bruit+ Neurological: Patient is alert, awake and oriented to person, place and time. No focal deficit. Strength bilateral appropriate and equal Skin: Warm and dry. Normal turgor. No rash. Palpitation: Normal elasticity for age Abdomen: Abdomen is soft. Bowel sounds +. There is no abdominal tenderness, no guarding/rigidity or organomegaly : kidney or bladder not palpable. Access: permacath Labs/imaging reviewed. Past medical history, past surgical history, family history, social history, allergy reviewed Objective - Vital Signs/Intake and Output Vital Signs (last 24 hours): Temp Pulse Resp BP Pulse Ox 98.4 F 82 17 142/73 97 06/17/17 17:00 06/17/17 17:00 06/17/17 17:00 06/17/17 17:00 06/17/17 17:00 - Medications Medications: Current Medications Acetaminophen (Tylenol 325mg Tab) 650 mg PO Q6 PRN PRN Reason: Pain, moderate (4-7) Last Admin: 06/09/17 11:05 Dose: 650 mg Amlodipine Besylate (Norvasc) 10 mg PO DAILY [facility] Last Admin: 06/17/17 09:46 Dose: 10 mg Artificial Tears (Artificial Tears) 2 drop OU Q4 PRN PRN Reason: Dry eyes Carvedilol (Coreg) 6.25 mg PO Q12 [facility] Last Admin: 06/17/17 09:48 Dose: 6.25 mg Citalopram Hydrobromide (Celexa) 20 mg PO DAILY [facility] Last Admin: 06/17/17 09:47 Dose: 20 mg Clopidogrel Bisulfate (Plavix) 75 mg PO DAILY [facility] Last Admin: 06/17/17 09:49 Dose: 75 mg Docusate Sodium (Colace) 100 mg PO DAILY [facility] Last Admin: 06/17/17 09:58 Dose: 100 mg Fluticasone Propionate (Flonase) 1 spr JEFE BID [facility] Last Admin: 06/17/17 17:01 Dose: 1 spr Hydralazine HCl (Apresoline) 100 mg PO Q8 [facility] Last Admin: 06/17/17 17:00 Dose: 100 mg Ondansetron HCl (Zofran Inj) 4 mg IVP Q6 PRN PRN Reason: Nausea/Vomiting Last Admin: 06/17/17 17:53 Dose: 4 mg Fluticasone/Salmeterol (Advair Diskus 500/50) 1 puff IH Q12 [facility] Last Admin: 06/17/17 09:45 Dose: 1 puff Sevelamer Carbonate (Renvela) 1.6 gm PO TIDWM [facility] Last Admin: 05/20/17 19:08 Dose: Not Given Sevelamer HCl (Renagel) 1,600 mg PO TIDWM [facility] Last Admin: 06/17/17 17:01 Dose: 1,600 mg Spironolactone (Aldactone) 50 mg PO DAILY [facility] Last Admin: 06/17/17 09:48 Dose: 50 mg Vitamin B Complex/Vit C/Folic Acid (Nephro-Yemi) 1 tab PO DAILY [facility] - Labs Labs: 06/17/17 06:30 06/17/17 06:30 PT 10.6 Seconds (9.8-13.1) 05/30/17 07:05 INR 0.9 (0.9-1.2) 05/30/17 07:05 APTT 24.5 Seconds (25.6-37.1) L 05/28/17 14:01
[2017-06-18] MEDS: Multivitamin Vitamin B Complex (Nephro-Vite) Tab PO SCH (09:52)
[2017-06-18] MEDS: Fluticasone-Salmeterol 500-50mcg Diskus IH SCH ×2 (10:03→20:23)
--- NOTE | 2017-06-18 13:26 | CP.PCM.PN ---
Subjective - Date & Time of Evaluation Date of Evaluation: 06/18/17 Time of Evaluation: 08:15 - Subjective Subjective: No acute overnight events. Pt seen lying in bed comfortably. States he had 5 episodes of vomiting last night which lasted until 11pm. Denies any vomiting today but still feels [place]. This morning, he reports having 3 watery BM. Also states that cough and eye itchiness with discharge has improved. On ROS he denies SOB, CP, N/V/D, fever, chills, abdominal pain, dysuria. Objective - Vital Signs/Intake and Output Vital Signs (last 24 hours): Temp Pulse Resp BP Pulse Ox 98.9 F 82 20 156/74 H 94 L 06/18/17 08:55 06/18/17 10:02 06/18/17 08:55 06/18/17 10:02 06/18/17 08:55 - Medications Medications: Current Medications Acetaminophen (Tylenol 325mg Tab) 650 mg PO Q6 PRN PRN Reason: Pain, moderate (4-7) Last Admin: 06/09/17 11:05 Dose: 650 mg Amlodipine Besylate (Norvasc) 10 mg PO DAILY [facility] Last Admin: 06/18/17 10:02 Dose: 10 mg Artificial Tears (Artificial Tears) 2 drop OU Q4 PRN PRN Reason: Dry eyes Carvedilol (Coreg) 12.5 mg PO Q12 [facility] Citalopram Hydrobromide (Celexa) 20 mg PO DAILY [facility] Last Admin: 06/18/17 10:01 Dose: 20 mg Clopidogrel Bisulfate (Plavix) 75 mg PO DAILY [facility] Last Admin: 06/18/17 10:00 Dose: 75 mg Fluticasone Propionate (Flonase) 1 spr JEFE BID [facility] Last Admin: 06/18/17 10:02 Dose: 1 spr Hydralazine HCl (Apresoline) 100 mg PO Q8 [facility] Last Admin: 06/18/17 09:51 Dose: 100 mg Ondansetron HCl (Zofran Inj) 4 mg IVP Q6 PRN PRN Reason: Nausea/Vomiting Last Admin: 06/17/17 17:53 Dose: 4 mg Fluticasone/Salmeterol (Advair Diskus 500/50) 1 puff IH Q12 [facility] Last Admin: 06/18/17 10:03 Dose: 1 puff Sevelamer HCl (Renagel) 1,600 mg PO TIDWM [facility] Last Admin: 06/18/17 12:17 Dose: 1,600 mg Spironolactone (Aldactone) 50 mg PO DAILY [facility] Last Admin: 06/18/17 10:00 Dose: 50 mg Vitamin B Complex/Vit C/Folic Acid (Nephro-Yemi) 1 tab PO DAILY [facility] Last Admin: 06/18/17 09:52 Dose: 1 tab - Labs Labs: 06/17/17 06:30 06/17/17 06:30 PT 10.6 Seconds (9.8-13.1) 05/30/17 07:05 INR 0.9 (0.9-1.2) 05/30/17 07:05 APTT 24.5 Seconds (25.6-37.1) L 05/28/17 14:01 - Constitutional Appears: Well, No Acute Distress - ENT Exam Additional comments: Hyperemia of sclera (improved) - Respiratory Exam Respiratory Exam: Accessory Muscle Use. absent: Clear to Ausculation Bilateral , Rales, Rhonchi, Wheezes, Respiratory Distress - Cardiovascular Exam Cardiovascular Exam: REGULAR RHYTHM, +S1, +S2. absent: Murmur - GI/Abdominal Exam GI & Abdominal Exam: Soft, Normal Bowel Sounds. absent: Distended, Tenderness, Organomegaly - Extremities Exam Extremities Exam: Normal Capillary Refill. absent: Calf Tenderness, Pedal Edema Additional comments: Left arm AVF- bruits auscultated, no erythema, tenderness to palpation, swelling , or discharge near excisional site. 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 Patient now with ESRD requiring hemodialysis. 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 to follow up with Dr. Sandoval at [facility] Systolic CHF- stable -Echo 04/02/17: LVEF 30-35% -Aldactone 50mg daily -Cardiology Dr. 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
--- NOTE | 2017-06-18 17:09 | CP.PCM.PN ---
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 No acute need today. Continue with Nephrovite 1 tab/day. Continue with phos binders BP control with meds as ordered. Patient on RAAS noel as with Aldactone. Glycemic control, Dialysis consistent diet Further work up/management as per primary team Dose meds/antibiotics (if needed) for GFR <10 status. Avoid fleets enema/ magnesium based laxatives. he is pending placement for dialysis in outpt units Thanks for allowing me to participate in care of your patient. Will follow patient with you. Please call if any Qs Dr Darren Samano Office: [phone] Subjective: Noted events overnight. Patients feels okay no further nausea/ vomitting. Denies chest pain, palpitation. denies shortness of breath Physical Examination: General Appearance: Comfortable, in no acute respiratory distress, co- operative. Vitals reviewed and noted as below Lungs: Normal respiratory rate/effort. Breath sounds bilateral equal and clear except few rales Heart: Normal rate. s1s2 normal. No rub or gallop. Extremities: no edema. LUE AVF with bruit+ Neurological: Patient is alert, awake and oriented to person, place and time. No focal deficit. Strength bilateral appropriate and equal Skin: Warm and dry. Normal turgor. No rash. Palpitation: Normal elasticity for age Abdomen: Abdomen is soft. Bowel sounds +. There is no abdominal tenderness, no guarding/rigidity or organomegaly : kidney or bladder not palpable. Access: permacath and left AVF maturing Labs/imaging reviewed. Past medical history, past surgical history, family history, social history, allergy reviewed Objective - Vital Signs/Intake and Output Vital Signs (last 24 hours): Temp Pulse Resp BP Pulse Ox 98.5 F 83 17 150/70 94 L 06/18/17 15:48 06/18/17 16:05 06/18/17 15:48 06/18/17 16:05 06/18/17 15:48 - Medications Medications: Current Medications Acetaminophen (Tylenol 325mg Tab) 650 mg PO Q6 PRN PRN Reason: Pain, moderate (4-7) Last Admin: 06/09/17 11:05 Dose: 650 mg Amlodipine Besylate (Norvasc) 10 mg PO DAILY [facility] Last Admin: 06/18/17 10:02 Dose: 10 mg Artificial Tears (Artificial Tears) 2 drop OU Q4 PRN PRN Reason: Dry eyes Carvedilol (Coreg) 12.5 mg PO Q12 [facility] Citalopram Hydrobromide (Celexa) 20 mg PO DAILY [facility] Last Admin: 06/18/17 10:01 Dose: 20 mg Clopidogrel Bisulfate (Plavix) 75 mg PO DAILY [facility] Last Admin: 06/18/17 10:00 Dose: 75 mg Fluticasone Propionate (Flonase) 1 spr JEFE BID [facility] Last Admin: 06/18/17 16:06 Dose: 1 spr Hydralazine HCl (Apresoline) 100 mg PO Q8 [facility] Last Admin: 06/18/17 16:05 Dose: 100 mg Ondansetron HCl (Zofran Inj) 4 mg IVP Q6 PRN PRN Reason: Nausea/Vomiting Last Admin: 06/17/17 17:53 Dose: 4 mg Fluticasone/Salmeterol (Advair Diskus 500/50) 1 puff IH Q12 [facility] Last Admin: 06/18/17 10:03 Dose: 1 puff Sevelamer HCl (Renagel) 1,600 mg PO TIDWM [facility] Last Admin: 06/18/17 16:06 Dose: 1,600 mg Spironolactone (Aldactone) 50 mg PO DAILY [facility] Last Admin: 06/18/17 10:00 Dose: 50 mg Vitamin B Complex/Vit C/Folic Acid (Nephro-Yemi) 1 tab PO DAILY [facility] Last Admin: 06/18/17 09:52 Dose: 1 tab - Labs Labs: 06/17/17 06:30 06/17/17 06:30 PT 10.6 Seconds (9.8-13.1) 05/30/17 07:05 INR 0.9 (0.9-1.2) 05/30/17 07:05 APTT 24.5 Seconds (25.6-37.1) L 05/28/17 14:01
[2017-06-19] MEDS: Fluticasone-Salmeterol 500-50mcg Diskus IH SCH ×2 (08:44→21:52)
[2017-06-19] MEDS: Multivitamin Vitamin B Complex (Nephro-Vite) Tab PO SCH (08:47)
--- NOTE | 2017-06-19 15:53 | CP.PCM.PCO ---
Assessment/Plan - Assessment and Plan (Free Text) Assessment: Spoke to patient with coffee farmer and PHY1/PGY2 and SW. pt is aware he has been set up at [facility] and transportation has been arranged. Pt refuses skilled nursing and transportation. " Don't worry about me. I will take care of that" Pt says he will continue dialysis. Will discharge in am with access. Earlier today pt had told staff he was refusing further dialysis and wanted the catheter removed. Patients says he will leave at 5 am. Pt verbalized understanding.
--- NOTE | 2017-06-19 16:27 | CP.PCM.PN ---
Subjective - Date & Time of Evaluation Date of Evaluation: 06/19/17 Time of Evaluation: 07:00 - Subjective Subjective: Patient seen and examined this morning. No complaints. States he is not going to do dialysis anymore because he doesnt like how it makes him feel. Stats that it makes him nase[place] and feel "very sick". When told that he needs it he states he does not care. Denies chest pain, SOB, n/v/d, dysuria, fever, chills. Later in the afternoon, we spoke to him about being discharged to a fdc so that he could began his dialysis treatments OP tomorrow. He became very angry and stated that he was told he would have HD today and he was being lied to. It was explained to him, that he did not have an acute medical need for being in the hospital and arrangements hav been made for him to c/w his dialysis treatments. He stated he didnt want the fdc and would find his own ride to the centers. He agreed to be discharged the next day. Objective - Vital Signs/Intake and Output Vital Signs (last 24 hours): Temp Pulse Resp BP Pulse Ox 98.6 F 105 H 20 151/80 H 95 06/19/17 15:55 06/19/17 16:04 06/19/17 15:55 06/19/17 16:04 06/19/17 15:55 - Medications Medications: Current Medications Acetaminophen (Tylenol 325mg Tab) 650 mg PO Q6 PRN PRN Reason: Pain, moderate (4-7) Last Admin: 06/09/17 11:05 Dose: 650 mg Amlodipine Besylate (Norvasc) 10 mg PO DAILY [facility] Last Admin: 06/19/17 16:04 Dose: 10 mg Artificial Tears (Artificial Tears) 2 drop OU Q4 PRN PRN Reason: Dry eyes Carvedilol (Coreg) 12.5 mg PO Q12 [facility] Last Admin: 06/19/17 08:47 Dose: 12.5 mg Citalopram Hydrobromide (Celexa) 20 mg PO DAILY [facility] Last Admin: 06/19/17 08:46 Dose: 20 mg Clopidogrel Bisulfate (Plavix) 75 mg PO DAILY [facility] Last Admin: 06/19/17 08:46 Dose: 75 mg Fluticasone Propionate (Flonase) 1 spr JEFE BID [facility] Last Admin: 06/19/17 16:04 Dose: 1 spr Hydralazine HCl (Apresoline) 100 mg PO Q8 [facility] Last Admin: 06/19/17 16:03 Dose: 100 mg Ondansetron HCl (Zofran Inj) 4 mg IVP Q6 PRN PRN Reason: Nausea/Vomiting Last Admin: 06/17/17 17:53 Dose: 4 mg Fluticasone/Salmeterol (Advair Diskus 500/50) 1 puff IH Q12 [facility] Last Admin: 06/19/17 08:44 Dose: 1 puff Sevelamer HCl (Renagel) 1,600 mg PO TIDWM [facility] Last Admin: 06/19/17 16:05 Dose: 1,600 mg Spironolactone (Aldactone) 50 mg PO DAILY [facility] Last Admin: 06/19/17 08:44 Dose: 50 mg Vitamin B Complex/Vit C/Folic Acid (Nephro-Yemi) 1 tab PO DAILY [facility] Last Admin: 06/19/17 08:47 Dose: 1 tab - Labs Labs: 06/17/17 06:30 06/17/17 06:30 PT 10.6 Seconds (9.8-13.1) 05/30/17 07:05 INR 0.9 (0.9-1.2) 05/30/17 07:05 APTT 24.5 Seconds (25.6-37.1) L 05/28/17 14:01 - Constitutional Appears: Well, Non-toxic, No Acute Distress - Respiratory Exam Respiratory Exam: Clear to Ausculation Bilateral. absent: Accessory Muscle Use , Rales, Wheezes - Cardiovascular Exam Cardiovascular Exam: REGULAR RHYTHM, +S1, +S2, Murmur - GI/Abdominal Exam GI & Abdominal Exam: Soft. 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 Patient now with ESRD requiring hemodialysis. 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 to follow up with Dr. Sandoval at [facility] -Planned to be D/C tomorrow Systolic CHF- stable -Echo 04/02/17: LVEF 30-35% -Aldactone 50mg daily -Cardiology Dr. 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
[2017-06-20 04:23] VITALS: O2SAT 96
[2017-06-20 07:22] VITALS: BP 153/77; PULSE 81; RESP 18; TEMP 98.5
[2017-06-20] MEDS: Fluticasone-Salmeterol 500-50mcg Diskus IH SCH (09:25)
[2017-06-20] MEDS: Multivitamin Vitamin B Complex (Nephro-Vite) Tab PO SCH (09:37)
--- NOTE | 2017-06-20 09:49 | CP.PCM.PN ---
Subjective - Date & Time of Evaluation Date of Evaluation: 06/20/17 Time of Evaluation: 08:00 - Subjective Subjective: Patient see this morning by resident, Dr. Heart, and 2 medical students. Noted to be lying in bed comfortably yelling "Okay bye, I go today". Deferred physical examination. Stated he had been vomiting last night and does not like dyalisis. I spoke to home about going home today and reminded him of his dialysis appointment and he responded "Okay, bye. I go to a different hospital. Dont worry." Refused to answer any more questions. Objective - Vital Signs/Intake and Output Vital Signs (last 24 hours): Temp Pulse Resp BP Pulse Ox 98.5 F 81 18 153/77 H 96 06/20/17 07:22 06/20/17 09:37 06/20/17 07:22 06/20/17 09:37 06/20/17 07:22 - Medications Medications: Current Medications Acetaminophen (Tylenol 325mg Tab) 650 mg PO Q6 PRN PRN Reason: Pain, moderate (4-7) Last Admin: 06/09/17 11:05 Dose: 650 mg Amlodipine Besylate (Norvasc) 10 mg PO DAILY [facility] Last Admin: 06/20/17 09:37 Dose: 10 mg Artificial Tears (Artificial Tears) 2 drop OU Q4 PRN PRN Reason: Dry eyes Carvedilol (Coreg) 12.5 mg PO Q12 [facility] Last Admin: 06/20/17 09:37 Dose: 12.5 mg Citalopram Hydrobromide (Celexa) 20 mg PO DAILY [facility] Last Admin: 06/20/17 09:38 Dose: 20 mg Clopidogrel Bisulfate (Plavix) 75 mg PO DAILY [facility] Last Admin: 06/20/17 09:39 Dose: 75 mg Fluticasone Propionate (Flonase) 1 spr JEFE BID [facility] Last Admin: 06/20/17 09:38 Dose: 1 spr Hydralazine HCl (Apresoline) 100 mg PO Q8 [facility] Last Admin: 06/20/17 09:37 Dose: 100 mg Ondansetron HCl (Zofran Inj) 4 mg IVP Q6 PRN PRN Reason: Nausea/Vomiting Last Admin: 06/17/17 17:53 Dose: 4 mg Fluticasone/Salmeterol (Advair Diskus 500/50) 1 puff IH Q12 [facility] Last Admin: 06/20/17 09:25 Dose: 1 puff Sevelamer HCl (Renagel) 1,600 mg PO TIDWM [facility] Last Admin: 06/20/17 09:35 Dose: 1,600 mg Spironolactone (Aldactone) 50 mg PO DAILY [facility] Last Admin: 06/20/17 09:38 Dose: 50 mg Vitamin B Complex/Vit C/Folic Acid (Nephro-Yemi) 1 tab PO DAILY [facility] Last Admin: 06/20/17 09:37 Dose: 1 tab - Labs Labs: 06/17/17 06:30 06/17/17 06:30 PT 10.6 Seconds (9.8-13.1) 05/30/17 07:05 INR 0.9 (0.9-1.2) 05/30/17 07:05 APTT 24.5 Seconds (25.6-37.1) L 05/28/17 14:01 - Constitutional Appears: Well, Non-toxic, No Acute Distress, Agitated - Eye Exam Eye Exam: Normal appearance - Neck Exam Additional comments: Dialysis catheter in place. No signs of infection (redness, swelling, discharge , tenderness) - Respiratory Exam Respiratory Exam: absent: Accessory Muscle Use Additional comments: No use of accessory muscles. Able to speak comfortably. 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 Patient now with ESRD requiring hemodialysis. Planned to be discharged today so he can c/w dialysis outpatient. 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 to follow up with Dr. Sandoval at [facility] -Planned to be D/C this morning. First dialysis appt is 3:00pm today. Pt verbalized understanding and has agreed he will go. Will be D/C with dialysis catheter in place. Systolic CHF- stable -Echo 04/02/17: LVEF 30-35% -Aldactone 50mg daily -Cardiology Dr. 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
--- NOTE | 2017-06-20 09:55 | CP.PCM.DIS ---
Provider - Provider Date of Admission: 04/02/17 13:06 Attending physician: Aaliyah Knott MD Primary care physician: Brady Anne MD Time Spent in preparation of Discharge (in minutes): 35 Diagnosis - Discharge Diagnosis (1) End stage chronic kidney disease Status: Chronic Hospital Course - Lab Results Lab Results: Micro Results 04/10/17 20:02 Naris MRSA Culture (Admit) - Final MRSA NOT DETECTED 04/02/17 15:00 Blood-Venous Blood Culture - Final NO GROWTH AFTER 5 DAYS 04/02/17 15:00 Blood-Venous Gram Stain - Final TEST NOT PERFORMED 04/02/17 13:40 Blood-Venous Blood Culture - Final NO GROWTH AFTER 5 DAYS 04/02/17 13:40 Blood-Venous Gram Stain - Final TEST NOT PERFORMED 04/02/17 14:00 Urine,Wang Urine Culture - Final No Growth (<1,000 CFU/ML) 04/02/17 17:49 Naris MRSA Culture (Admit) - Final MRSA NOT DETECTED Most Recent Lab Values WBC 7.4 K/uL (4.8-10.8) 06/17/17 06:30 RBC 3.13 Mil/uL (4.40-5.90) L 06/17/17 06:30 Hgb 10.4 g/dL (12.0-18.0) L 06/17/17 06:30 Hct 31.2 % (35.0-51.0) L 06/17/17 06:30 MCV 99.5 fl (80.0-94.0) H D 06/17/17 06:30 MCH 33.0 pg (27.0-31.0) H 06/17/17 06:30 MCHC 33.2 g/dL (33.0-37.0) 06/17/17 06:30 RDW 18.7 % (11.5-14.5) H 06/17/17 06:30 Plt Count 208 K/uL (130-400) 06/17/17 06:30 MPV 7.7 fl (7.2-11.7) 04/19/17 08:46 Neut % (Auto) 75.3 % (50.0-75.0) H 04/19/17 08:46 Lymph % (Auto) 16.8 % (20.0-40.0) L 04/19/17 08:46 Coffee % (Auto) 7.4 % (0.0-10.0) 04/19/17 08:46 Eos % (Auto) 0.4 % (0.0-4.0) 04/19/17 08:46 Baso % (Auto) 0.1 % (0.0-2.0) 04/19/17 08:46 Neut # 7.4 K/uL (1.8-7.0) H 04/19/17 08:46 Lymph # 1.7 K/uL (1.0-4.3) 04/19/17 08:46 Coffee # 0.7 K/uL (0.0-0.8) 04/19/17 08:46 Eos # 0.0 K/uL (0.0-0.7) 04/19/17 08:46 Baso # 0.0 K/uL (0.0-0.2) 04/19/17 08:46 Neutrophils % (Manual) 87 % (42-75) H 04/09/17 05:30 Lymphocytes % (Manual) 4 % (20-50) L 04/09/17 05:30 Reactive Lymphs % 2 % (0-0) H 04/09/17 05:30 Monocytes % (Manual) 3 % (0-10) 04/09/17 05:30 Myelocytes % 4 % (0-0) H 04/09/17 05:30 Platelet Estimate Normal (NORMAL) 04/09/17 05:30 Hypochromasia (manual) Slight 04/09/17 05:30 Anisocytosis (manual) Slight 04/09/17 05:30 Ovalocytes Slight 04/09/17 05:30 PT 10.6 Seconds (9.8-13.1) 05/30/17 07:05 INR 0.9 (0.9-1.2) 05/30/17 07:05 APTT 24.5 Seconds (25.6-37.1) L 05/28/17 14:01 D-Dimer, Quantitative 1.83 mg/L FEU (0-0.50) H 04/02/17 13:00 pCO2 30 mm/Hg (35-45) L 04/03/17 13:40 pO2 99 mm/Hg (80-100) 04/03/17 13:40 HCO3 20.1 mmol/L (21-28) L 04/03/17 13:40 ABG pH 7.38 (7.35-7.45) 04/03/17 13:40 ABG Total CO2 18.6 mmol/L (22-28) L 04/03/17 13:40 ABG O2 Saturation 100.6 % (95-98) H 04/03/17 13:40 ABG Base Excess -6.2 mmol/L (-2.0-3.0) L 04/03/17 13:40 Nahun Test Yes 04/03/17 13:40 ABG Potassium 5.0 mmol/L (3.6-5.2) 04/03/17 13:40 A-a O2 Difference 291.0 mm/Hg 04/03/17 13:40 Sodium 135.0 mmol/L (132-148) 04/03/17 13:40 Chloride 108.0 mmol/L (98-107) H 04/03/17 13:40 Glucose 186 mg/dL (75-110) H 04/03/17 13:40 Lactate 0.7 mmol/L (0.7-2.1) 04/03/17 13:40 Vent Mode Bipap 04/03/17 13:40 Mechanical Rate 12 04/03/17 13:40 FiO2 60.0 % 04/03/17 13:40 Tidal Volume 0 04/03/17 13:40 PEEP 0 04/03/17 13:40 Pressure Support 0 04/03/17 13:40 Inspiratory BiPAP 12 04/03/17 13:40 Expiratory BiPAP 6 04/03/17 13:40 Sodium 140 mmol/l (132-148) 06/17/17 06:30 Potassium 4.3 MMOL/L (3.6-5.0) 06/17/17 06:30 Chloride 102 mmol/L (98-107) 06/17/17 06:30 Carbon Dioxide 28 mmol/L (22-30) 06/17/17 06:30 Anion Gap 15 (10-20) 06/17/17 06:30 BUN 33 mg/dl (9-20) H 06/17/17 06:30 Creatinine 4.1 mg/dL (0.8-1.5) H 06/17/17 06:30 Est GFR ( Amer) 18 06/17/17 06:30 Est GFR (Non-Af Amer) 15 06/17/17 06:30 POC Glucose (mg/dL) 145 mg/dL (65-110) H 04/13/17 21:18 Random Glucose 85 mg/dL (75-110) 06/17/17 06:30 Calcium 8.5 mg/dL (8.4-10.2) 06/17/17 06:30 Phosphorus 3.7 mg/dl (2.5-4.5) 06/17/17 06:30 Magnesium 2.1 MG/DL (1.6-2.3) 06/17/17 06:30 Iron 147 ug/dL (49-181) 04/09/17 09:00 TIBC 160 ug/dL (250-450) L 04/09/17 09:00 % Saturation 92 % (20-55) H 04/09/17 09:00 Ferritin 1200.0 ng/mL 04/09/17 05:30 Total Bilirubin 0.3 mg/dl (0.2-1.3) 06/09/17 05:30 AST 20 U/L (17-59) 06/09/17 05:30 ALT 29 U/L (21-72) 06/09/17 05:30 Alkaline Phosphatase 55 U/L (38-126) 06/09/17 05:30 Troponin I 0.3260 ng/mL (0.00-0.120) H* 04/03/17 20:00 NT-Pro-B Natriuret Pep 68925 pg/ml (0-900) H 05/08/17 10:20 Total Protein 5.8 G/DL (6.3-8.2) L 06/09/17 05:30 Albumin 3.2 g/dL (3.5-5.0) L 06/09/17 05:30 Globulin 2.7 gm/dL (2.2-3.9) 06/09/17 05:30 Albumin/Globulin Ratio 1.2 (1.0-2.1) 06/09/17 05:30 Prealbumin 42.1 mg/dL (17.6-36.0) H 04/12/17 05:50 Triglycerides 121 mg/DL (0-149) D 04/02/17 21:00 Cholesterol 257 mg/dL (0-199) H 04/02/17 21:00 LDL Cholesterol Direct 148 mg/dL (0-129) H 04/02/17 21:00 HDL Cholesterol 39 MG/DL (30-70) 04/02/17 21:00 Serotonin <10 ng/mL (56-244) L 04/03/17 05:41 25-OH Vitamin D Total < 12.8 NG/ML (30.0-100.0) L 04/03/17 05:41 Procalcitonin 2.07 NG/ML (0.19-0.49) H 04/02/17 21:00 TSH 3rd Generation 2.14 mIU/ML (0.46-4.68) 04/02/17 21:00 PTH Intact Whole Molec 61 pg/mL (14-64) 06/09/17 14:00 Arterial Blood Potassium 5.0 mmol/L (3.6-5.2) 04/03/17 13:40 Urine Color Yellow (YELLOW) 04/03/17 01:15 Urine Clarity Slighty-cloudy (Clear) 04/03/17 01:15 Urine pH 5.0 (5.0-8.0) 04/03/17 01:15 Ur Specific [place] 1.013 (1.003-1.030) 04/03/17 01:15 Urine Protein >=500 mg/dL (NEGATIVE) 04/03/17 01:15 Urine Glucose (UA) 150 mg/dL (Normal) 04/03/17 01:15 Urine Ketones Negative mg/dL (NEGATIVE) 04/03/17 01:15 Urine Blood Large (NEGATIVE) 04/03/17 01:15 Urine Nitrate Negative (NEGATIVE) 04/03/17 01:15 Urine Bilirubin Negative (NEGATIVE) 04/03/17 01:15 Urine Urobilinogen 0.2-1.0 mg/dL (0.2-1.0) 04/03/17 01:15 Ur Leukocyte Esterase Small Thai/uL (Negative) 04/03/17 01:15 Urine RBC (Auto) 222 /hpf (0-3) H 04/03/17 01:15 Urine Microscopic WBC 7 /hpf (0-5) H 04/03/17 01:15 Ur Squamous Epith Cells < 1 /hpf (0-5) 04/03/17 01:15 Urine Bacteria Rare (<OCC) 04/03/17 01:15 Urine Yeast (Budding) Few /hpf (NEGATIVE) H 04/03/17 01:15 Ur Random Creatinine 50.6 mg/dL 04/14/17 20:45 U Random Total Protein 196.0 mg/dL (0.0-12.0) H 04/14/17 20:45 Ur Random Sodium 40 meq/L 04/03/17 01:20 Ur Random Potassium 47.0 mmol/L 04/03/17 01:20 Ur Random Phosphorus 46.2 mg/dL 04/03/17 01:20 Urine Collection Time 24 HRS 04/21/17 01:00 Urine Total Volume 950 mL 04/21/17 01:00 Creatinine Clearance 12.0 mL/min (107-139) L 04/21/17 01:00 Ur Total Protein 24 Hr 1191 mg/24 h (<150) H 04/04/17 07:00 Urine Immunofixation See note 04/02/17 01:20 Hepatitis A IgM Ab Negative (NEGATIVE) 06/02/17 15:00 Hep Bs Antigen Negative (NEGATIVE) 06/02/17 15:00 Hep Bs Antibody Negative (NEGATIVE) 05/03/17 17:45 Hep B Core IgM Ab Negative (NEGATIVE) 06/02/17 15:00 Hepatitis C Antibody Negative (NEGATIVE) 06/02/17 15:00 Blood Type A POSITIVE 04/15/17 11:30 Antibody Screen Negative 04/15/17 11:30 Crossmatch See Detail 04/15/17 11:30 BBK History Checked Patient has bt 04/15/17 11:30 - Hospital Course Hospital Course: Discharge Diagnosis: ESRD on HD s/p AVF creation. Consults: Nephrology, Cardiology Procedures: AVF creation Complications: None Hospital Course: 67 y/o homeless M with PMH including HTN, CHF, CKD, ANCA vasculitis and DVT of RUE (detected on 02/04/17) was admitted for respiratory distress and found to have Acute on Chronic Kidney Injury and CHF exacerbation. During his hospital course, his kidney function declined and is now in ESRD requiring dialysis 3 times a week. He had an AVF fistula created on May 31 and has been recieving dialysis via permacath. He has also completed 5 cycles of Cytotoxan for his vasculitits. Patient has been cleared by cardiology and nephrology to be discharged. Arrangements for outpatient dialysis has been made at [facility] and patient has been made aware that he is scheduled to have dialysis Monday, , and Monday. Patient has agreed to continue with hemodialysis outpatient via his R. dialysis catheter and will transition to the AV fistula as it matures. He was also set up with the [facility] but he declined. Patient verbalized understanding. Patient will be discharged with permacath. Discharge Medications: Amlodipine 10ml PO daily Aspirin 81mg PO Daily Calcium Acetate 557 mg PO Citalopram 20mg PO Daily Clonidine 0.3mg PO BID Ferrous Sulfate 325 mg PO Daily Fluticaone/Salmeterol 500/50 (Advair) Hydralazine Labetelol 400mg PO q12 Pantaprazole 40mg PO daily Discharge Conditions: Condition upon discharge: Stable Activity: Ambulating with cane Diet: Renal Follow up: June [address] Gilmore at 3pm, Monday//Monday at the [facility]. Discharge Exam - Head Exam Head Exam: ATRAUMATIC, NORMAL INSPECTION Discharge Plan - Follow Up Plan Condition: GUARDED Disposition: HOME/ ROUTINE Instructions: Cyclophosphamide (By injection), Dialysis Diet (DC), Hemodialysis for Acute Renal Failure (DC), Chemo Induced Nausea and Vomiting (DC ) Additional Instructions: Scheduled Dialysis on on June 15 2:30 pm [facility] [address] [place] [address] Dorado on June 28 [facility] [address] [id number] Referrals: [facility] [Outside] Brady Anne MD [Primary Care Provider] -
== END 2017-06-20 14:43 | disposition home or self-care (01) | DRG 549 ==
LOC: H.ER 12:27 → H.ERHOLD 13:06 → H.ICU/CCU 15:45 → H.MEDSURG1 04-10 15:33
PROVIDERS: ADMIT Family Medicine Geriatric Medicine; ATTEND Family Medicine Geriatric Medicine
PROC: 02HV33Z Insertion of Infusion Device into Superior Vena Cava, Percutaneous Approach (ICD-10-PCS; 2017-04-05)
PROC: 5A1D60Z (ICD-10-PCS; 2017-04-05)
PROC: B548ZZA Ultrasonography of Superior Vena Cava, Guidance (ICD-10-PCS; 2017-04-05)
PROC: 02HV33Z Insertion of Infusion Device into Superior Vena Cava, Percutaneous Approach (ICD-10-PCS; 2017-04-05)
PROC: B548ZZA Ultrasonography of Superior Vena Cava, Guidance (ICD-10-PCS; 2017-04-05)
PROC: 30233N1 Transfusion of Nonautologous Red Blood Cells into Peripheral Vein, Percutaneous Approach (ICD-10-PCS; 2017-04-15)
PROC: 02PY33Z Removal of Infusion Device from Great Vessel, Percutaneous Approach (ICD-10-PCS; 2017-05-10)
PROC: 02HV33Z Insertion of Infusion Device into Superior Vena Cava, Percutaneous Approach (ICD-10-PCS; 2017-05-10)
PROC: B548ZZA Ultrasonography of Superior Vena Cava, Guidance (ICD-10-PCS; 2017-05-10)
PROC: 03180ZD Bypass Left Brachial Artery to Upper Arm Vein, Open Approach (ICD-10-PCS; principal; 2017-05-31)
DX: I13.2 Hypertensive heart and chronic kidney disease with heart failure and with stage 5 chronic kidney disease, or end stage renal disease (principal); I21.4 Non-ST elevation (NSTEMI) myocardial infarction; N17.9 Acute kidney failure, unspecified; J18.9 Pneumonia, unspecified organism; N18.6 End stage renal disease; I42.9 Cardiomyopathy, unspecified; E11.22 Type 2 diabetes mellitus with diabetic chronic kidney disease; J44.0 Chronic obstructive pulmonary disease with (acute) lower respiratory infection; I50.23 Acute on chronic systolic (congestive) heart failure; E87.5 Hyperkalemia; T82.838A Hemorrhage due to vascular prosthetic devices, implants and grafts, initial encounter; N48.89 Other specified disorders of penis; E83.39 Other disorders of phosphorus metabolism; Z59.0 Homelessness; Z82.5 Family history of asthma and other chronic lower respiratory diseases; Z86.718 Personal history of other venous thrombosis and embolism; Z86.11 Personal history of tuberculosis; Z91.19 Patient's noncompliance with other medical treatment and regimen; D63.8 Anemia in other chronic diseases classified elsewhere; Z87.891 Personal history of nicotine dependence; I77.89 Other specified disorders of arteries and arterioles; M19.90 Unspecified osteoarthritis, unspecified site; Y84.1 Kidney dialysis as the cause of abnormal reaction of the patient, or of later complication, without mention of misadventure at the time of the procedure; Y92.239 Unspecified place in hospital as the place of occurrence of the external cause; F32.9 Major depressive disorder, single episode, unspecified; N25.81 Secondary hyperparathyroidism of renal origin; E55.9 Vitamin D deficiency, unspecified; R11.2 Nausea with vomiting, unspecified; E78.5 Hyperlipidemia, unspecified; H00.013 Hordeolum externum right eye, unspecified eyelid; I34.0 Nonrheumatic mitral (valve) insufficiency; K59.00 Constipation, unspecified; Z79.899 Other long term (current) drug therapy; M54.5 Low back pain; R06.00 Dyspnea, unspecified

== ENCOUNTER 2017-06-28 16:10 | Inpatient (IN) | payer SELFPAY ==
[2017-06-28 16:10] VITALS: BMI 21.3
[2017-06-28 17:25] LABS: BASO % 0.5 % (0.0-2.0); EOS # 0.2 K/uL (0.0-0.7); EOS % 1.7 % (0.0-4.0); HEMATOCRIT 27.8 % (35.0-51.0); LYMPH # 2.3 K/uL (1.0-4.3); LYMPH % 23.4 % (20.0-40.0); MEAN CELL VOLUME 101.2 fl (80.0-94.0); MEAN CORPUSCULAR HEMOGLOBIN 33.2 pg (27.0-31.0); MEAN CORPUSCULAR HGB CONC 32.8 g/dL (33.0-37.0); MEAN PLATELET VOLUME 7.3 fl (7.2-11.7); MONO # 1.1 K/uL (0.0-0.8); MONO % 11.2 % (0.0-10.0); NEUT # 6.2 K/uL (1.8-7.0); NEUT % 63.2 % (50.0-75.0); RED CELL DISTRIBUTION WIDTH 17.6 % (11.5-14.5); WHITE BLOOD COUNT 9.8 K/uL (4.8-10.8)
--- NOTE | 2017-06-28 17:28 | ED PDOC ---
HPI: Chest Pain Time Seen by Provider: 06/28/17 16:23 Chief Complaint (Nursing): Palpitations Chief Complaint (Provider): Chest pain History Per: Patient History/Exam Limitations: no limitations Onset/Duration Of Symptoms: Days (two) Additional Complaint(s): Patient is a 67 year old male with a past medical history of hypertension and end stage renal disease (last dialysis session was yesterday) referred from a [facility] for tachycardia, shortness of breath, dizziness, and right sided chest pain ongoing for two days. PCP: none provided Past Medical History Reviewed: Historical Data, Nursing Documentation, Vital Signs Vital Signs: Last Vital Signs Temp 99.8 F H 06/28/17 16:13 Pulse 149 H 06/28/17 16:13 Resp 18 06/28/17 16:13 BP 127/85 06/28/17 16:13 Pulse Ox 98 06/28/17 17:42 - Medical History PMH: Anemia, Anxiety, Arthritis, CHF, COPD, Depression, Deep Vein Thrombosis ( RUE), HTN, Pneumonia, End Stage Renal Disease, Chronic Kidney Disease, Seizures Denies: HIV - Surgical History Surgical History: Denies: Coronary Stent - Family History Family History: States: Unknown Family Hx - Social History Current smoker - smoking cessation education provided: No (quit 6 months ago) Alcohol: None Drugs: Denies - Immunization History Hx Tetanus Toxoid Vaccination: No Hx Influenza Vaccination: No Hx Pneumococcal Vaccination: No - Home Medications Home Medications: Ambulatory Orders Medication Instructions Recorded Citalopram Hydrobromide [Celexa] 20 mg PO DAILY 03/08/17 cloNIDine [Catapres] 0.3 mg PO TID 03/08/17 hydrALAZINE [Apresoline] 20 mg PO Q8H 03/08/17 Fluticasone/Salmeterol 500/50 1 puff IH Q12 #1 puff 03/22/17 [Advair Diskus 500/50] amLODIPine [Norvasc] 10 mg PO DAILY #30 tab 03/22/17 Aspirin [Ecotrin] 81 mg PO DAILY 06/28/17 Calcium Acetate [Phoslo] 1,334 mg PO WM 06/28/17 Carvedilol [Coreg] 12.5 mg PO Q12H 06/28/17 Clopidogrel [Plavix] 75 mg PO DAILY 06/28/17 Labetalol [Trandate] 200 mg PO Q12 06/28/17 Spironolactone [Aldactone] 50 mg PO DAILY 06/28/17 - Allergies Allergies/Adverse Reactions: Allergies Allergy/AdvReac Type Severity Reaction Status Date / Time sulfamethoxazole Allergy RASH Verified 03/06/17 17:55 [From ] trimethoprim [From ] Allergy RASH Verified 03/06/17 17:55 Review of Systems ROS Statement: Except As Marked, All Systems Reviewed And Found Negative Cardiovascular: Positive for: Chest Pain (right sided), Palpitations Respiratory: Positive for: Shortness of Breath Neurological: Positive for: Dizziness Physical Exam - Reviewed Nursing Documentation Reviewed: Yes Vital Signs Reviewed: Yes - Physical Exam Appears: Positive for: Well, Non-toxic, No Acute Distress Head Exam: Positive for: ATRAUMATIC, NORMAL INSPECTION, NORMOCEPHALIC Skin: Positive for: Normal Color, Warm, Dry Eye Exam: Positive for: EOMI, Normal appearance, PERRL ENT: Positive for: Normal ENT Inspection Neck: Positive for: Normal, Painless ROM, Supple Cardiovascular/Chest: Positive for: Tachycardia (Rate: 150, Rhythm: Regular). Negative for: Regular Rate, Rhythm, Murmur Respiratory: Positive for: Rales (left sided). Negative for: Normal Breath Sounds, Wheezing, Respiratory Distress Gastrointestinal/Abdominal: Positive for: Normal Exam, Soft. Negative for: Tenderness Extremity: Positive for: Normal ROM. Negative for: Pedal Edema Neurologic/Psych: Positive for: Alert, Oriented. Negative for: Motor/Sensory Deficits - Laboratory Results Result Diagrams: 06/28/17 17:07 06/28/17 17:07 - ECG ECG: Positive for: Interpreted By Me Interpretation Of Abn EKG: Sinus Tachycardia at a rate of [address] changes. O2 Sat by Pulse Oximetry: 98 (RA) Pulse Ox Interpretation: Normal Medical Decision Making Medical Decision Making: Time: 16:52 Initial impression: Altered mental status Initial plan: EKG Labs ED Urine Dipstick Chest X-Ray Adenosine 12 mg IVP Reevaluation 17:00 Chest X-Ray reviewed. 17:10 EKG interpreted by me. Findings include: Sinus Tachycardia at a rate of 150 bpm. Rhythm: regular. Gave patient Adenocard at 12 mg via IV push which slowed heart rate temporarily and converting it to NSR at a rate of 90 bpm. It then reverted to original rhythm and rate of [address] bpm. E[address] revealed no ST changes. Scribe Attestation: Documented by Xochitl Dietz, acting as a scribe for Eduardo Sweeney MD. Provider Scribe Attestation: All medical record entries made by the Scribe were at my direction and personally dictated by me. I have reviewed the chart and agree that the record accurately reflects my personal performance of the history, physical exam, medical decision making, and the department course for this patient. I have also personally directed, reviewed, and agree with the discharge instructions and disposition. Disposition - Clinical Impression Clinical Impression: Supraventricular tachycardia, End stage chronic kidney disease - Patient ED Disposition Is Patient to be Admitted: Yes - Disposition Disposition Time: 17:15 Condition: FAIR - Pt Status Changed To: Hospital Disposition Of: Observation - POA Present On Arrival: None
[2017-06-28 17:41] LABS: ALB/GLOB RATIO 1.2 (1.0-2.1); ALKALINE PHOSPHATASE 78 U/L (38-126); ALT/SGPT 29 U/L (21-72); AST/SGOT 26 U/L (17-59); BILIRUBIN,TOTAL 0.5 mg/dl (0.2-1.3); BLOOD UREA NITROGEN 42 mg/dl (9-20); CALCIUM 8.8 mg/dL (8.4-10.2); CARBON DIOXIDE 24 mmol/L (22-30); CHLORIDE 98 mmol/L (98-107); GFR AFRICAN-AMERICAN 10; GLUCOSE,RANDOM 88 mg/dL (75-110); SODIUM 138 mmol/l (132-148); TOTAL PROTEIN 7.5 G/DL (6.3-8.2)
[2017-06-28 17:43] LABS: POTASSIUM 5.7 MMOL/L (3.6-5.0)
[2017-06-28] MEDS ORDERED: Dextrose 50% SYRINGE Inj (50 ml) IVP ONE (17:46)
[2017-06-28] MEDS ORDERED: Insulin Regular 100 units/ml IV STA (17:46)
[2017-06-28] MEDS ORDERED: Sodium Bicarbonate 7.5% (0.9 MEQ/ML) 50ML INJ IV ONE (17:47)
[2017-06-28] MEDS ORDERED: Sod Polystyrene Sulf 15 gm/60 ml Oral Susp PO ONE (17:48)
[2017-06-28] MEDS ORDERED: Albuterol 0.083% Inhal Sol (2.5 mg/3 mL) UD INH STA (17:49)
--- NOTE | 2017-06-28 18:03 | CP.PCM.HP ---
<Braulio Agrawal - Last Filed: 06/28/17 20:03> History of Present Illness - History of Present Illness History of Present Illness: CC: 67 y/o homeless M with multiple comorbidities including Stage 5 ESRD (HD T,Th,S) , well known to service sent over from [facility] due to tachycardia, shortness of breath, dizziness, and right sided intermittent chest pain ongoing for two days. Currently denies chest pain, syncope, cough, n/v/abd pain/back pain/ hematuria/hematochezia/focal weakness. Patient has a history of medication non adherence but states that he has been compliant with his medications this time and also with HD, last administered yesterday. ED Course: EKG - sinus tachycardia at 150 bpm, given Adenocard at 12 mg via IV push which slowed heart rate temporarily and converting it to NSR at a rate of 90 bpm. It then reverted to original rhythm and rate of 150 bpm. 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 h/o Alcohol abuse. denies drug use. Homeless, stays in [place] [facility] Med List: per last DC Amlodipine 10ml PO daily Aspirin 81mg PO Daily Calcium Acetate 557 mg PO Citalopram 20mg PO Daily Clonidine 0.3mg PO BID Ferrous Sulfate 325 mg PO Daily Fluticaone/Salmeterol 500/50 (Advair) Hydralazine Labetelol 400mg PO q12 Pantaprazole 40mg PO daily Present on Admission - Present on Admission Any Indicators Present on Admission: No History of DVT/PE: No History of Uncontrolled Diabetes: No Review of Systems - Review of Systems Review of Systems: see hpi Past Patient History - Infectious Disease Hx of Infectious Diseases: None - Past Medical History & Family History Past Medical History?: Yes - Past Social History Alcohol: None Drugs: Denies - CARDIAC Hx Congestive Heart Failure: Yes Hx Hypertension: Yes - PULMONARY Hx Chronic Obstructive Pulmonary Disease (COPD): Yes Hx Pneumonia: Yes - NEUROLOGICAL Hx Seizures: Yes - HEENT Hx HEENT Problems: No - RENAL Hx Chronic Kidney Disease: Yes - ENDOCRINE/METABOLIC Hx Endocrine Disorders: No - HEMATOLOGICAL/ONCOLOGICAL Hx Anemia: Yes Hx Human Immunodeficiency Virus (HIV): No - INTEGUMENTARY Hx Dermatological Problems: No - MUSCULOSKELETAL/RHEUMATOLOGICAL Hx Arthritis: Yes - GASTROINTESTINAL Hx Gastrointestinal Disorders: Yes Hx Hemorrhoids: Yes - GENITOURINARY/GYNECOLOGICAL Hx Genitourinary Disorders: No - PSYCHIATRIC Hx Anxiety: Yes Hx Depression: Yes - SURGICAL HISTORY Hx Coronary Stent: No - ANESTHESIA Hx Anesthesia: Yes Hx Anesthesia Reactions: No Meds Allergies/Adverse Reactions: Allergies Allergy/AdvReac Type Severity Reaction Status Date / Time sulfamethoxazole Allergy RASH Verified 03/06/17 17:55 [From ] trimethoprim [From ] Allergy RASH Verified 03/06/17 17:55 Physical Exam - Constitutional Appears: Non-toxic, No Acute Distress, Unkempt, Chronically Ill - Head Exam Head Exam: ATRAUMATIC - Eye Exam Eye Exam: EOMI Pupil Exam: PERRL - ENT Exam ENT Exam: Mucous Membranes Moist - Neck Exam Neck exam: Positive for: Full Rom - Respiratory Exam Respiratory Exam: Clear to Auscultation Bilateral. absent: Accessory Muscle Use , Respiratory Distress, Stridor - Cardiovascular Exam Cardiovascular Exam: +S1, +S2 - GI/Abdominal Exam GI & Abdominal Exam: Normal Bowel Sounds, Soft. absent: Tenderness - Extremities Exam Extremities exam: Positive for: pedal edema Additional comments: 1+ mild BL LE pedal edema - Neurological Exam Neurological exam: Alert, Oriented x3 - Psychiatric Exam Psychiatric exam: Normal Affect, Normal Mood - Skin Skin Exam: Dry, Normal Color, Warm Results - Vital Signs Recent Vital Signs: Last Vital Signs Temp 99.8 F H 06/28/17 16:13 Pulse 149 H 06/28/17 16:13 Resp 18 06/28/17 16:13 BP 127/85 06/28/17 16:13 Pulse Ox 98 06/28/17 17:51 - Labs Result Diagrams: 06/28/17 17:07 06/28/17 17:07 Labs: Laboratory Results - last 24 hr 06/28/17 06/28/17 17:07 17:07 WBC 9.8 RBC 2.75 L Hgb 9.1 L Hct 27.8 L MCV 101.2 H MCH 33.2 H MCHC 32.8 L RDW 17.6 H Plt Count 265 MPV 7.3 Neut % (Auto) 63.2 Lymph % (Auto) 23.4 [place] % (Auto) 11.2 H Eos % (Auto) 1.7 Baso % (Auto) 0.5 Neut # 6.2 Lymph # 2.3 [place] # 1.1 H Eos # 0.2 Baso # 0.0 Sodium 138 Potassium 5.7 H Chloride 98 Carbon Dioxide 24 Anion Gap 22 H BUN 42 H Creatinine 6.8 H Est GFR ( Amer) 10 Est GFR (Non-Af Amer) 8 Random Glucose 88 Calcium 8.8 Total Bilirubin 0.5 AST 26 ALT 29 Alkaline Phosphatase 78 Troponin I < 0.0120 Total Protein 7.5 Albumin 4.1 Globulin 3.4 Albumin/Globulin Ratio 1.2 Assessment & Plan - Assessment and Plan (Free Text) Plan: 67 y/o homeless M with multiple comorbidities including Stage 5 ESRD (HD T,,S) , well known to service sent over from [facility] due to tachycardia, shortness of breath, dizziness, and right sided intermittent chest pain ongoing for two days. Sinus Tachycardia ED Course: EKG - sinus tachycardia at 150 bpm, given Adenocard at 12 mg via IV push which slowed heart rate temporarily and converting it to NSR at a rate of 90 bpm. It then reverted to original rhythm and rate of 150 bpm. EKG revealed no ST changes Chest X-Ray admit to tele cont cardiac monitoring Hyperkalemia Labs: hyperkalemia, ESRD stage 5 estimated GFR 10 hyperkalemia corrected with insulin, albuterol and kayexalate repeat labs in AM ESRD, stage 5 2/2 ANCA positive CGN last eGFR 10 HD in AM ( T,,Sat) Nephro on consult: Dr Sandoval Systolic CHF- stable -Echo 04/02/17: LVEF 30-35% Aldactone 50mg daily (HOLD due to hyperkalemia for now) COPD-Chronic Advair Albutrol PRN HTN normotensive c/w Hydralazine 100mg q8, Norvasc 10mg daily Coreg 6.25 Q12 increased to 12.5 mg monitor BP Anemia of Chronic Disease-stable 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 PATIENT KNOW TO ME FROM PREVIOUS ADMISSIONS. SVT TREATED IN ED WITH ADENOSINE WITH GOOD RESULTS. HYPERKALEMIA ALSO TREATED IN ED WITH INSULIN, ALBUTEROL AND KAYEXALATE. WILL ADMIT. MONITOR, RECHECK LABS, HEMODIAYLSIS TO BE DONE TH06/29/17, REEVALUATE. Results - Vital Signs Recent Vital Signs: Last Vital Signs Temp 98.7 F 06/29/17 04:42 Pulse 99 H 06/29/17 06:15 Resp 20 06/29/17 04:42 BP 133/73 06/29/17 06:15 Pulse Ox 95 06/29/17 04:42 - Labs Result Diagrams: 06/29/17 05:00 06/29/17 05:00 Labs: Laboratory Results - last 24 hr 06/28/17 06/28/17 06/29/17 17:07 17:07 05:00 WBC 9.8 8.4 RBC 2.75 L 2.70 L Hgb 9.1 L 8.9 L Hct 27.8 L 27.3 L MCV 101.2 H 100.8 H MCH 33.2 H 32.8 H MCHC 32.8 L 32.6 L RDW 17.6 H 17.2 H Plt Count 265 252 MPV 7.3 Neut % (Auto) 63.2 Lymph % (Auto) 23.4 [place] % (Auto) 11.2 H Eos % (Auto) 1.7 Baso % (Auto) 0.5 Neut # 6.2 Lymph # 2.3 [place] # 1.1 H Eos # 0.2 Baso # 0.0 Sodium 138 Potassium 5.7 H Chloride 98 Carbon Dioxide 24 Anion Gap 22 H BUN 42 H Creatinine 6.8 H Est GFR ( Amer) 10 Est GFR (Non-Af Amer) 8 Random Glucose 88 Calcium 8.8 Total Bilirubin 0.5 AST 26 ALT 29 Alkaline Phosphatase 78 Troponin I < 0.0120 Total Protein 7.5 Albumin 4.1 Globulin 3.4 Albumin/Globulin Ratio 1.2 06/29/17 05:00 WBC RBC Hgb Hct MCV MCH MCHC RDW Plt Count MPV Neut % (Auto) Lymph % (Auto) [place] % (Auto) Eos % (Auto) Baso % (Auto) Neut # Lymph # [place] # Eos # Baso # Sodium 140 Potassium 5.7 H Chloride 101 Carbon Dioxide 25 Anion Gap 20 BUN 48 H Creatinine 7.8 H* Est GFR ( Amer) 8 Est GFR (Non-Af Amer) 7 Random Glucose 84 Calcium 8.7 Total Bilirubin 0.4 AST 22 ALT 28 Alkaline Phosphatase 73 Troponin I Total Protein 6.9 Albumin 3.7 Globulin 3.2 Albumin/Globulin Ratio 1.2
[2017-06-28] MEDS ORDERED: Dextrose 50% SYRINGE Inj (50 ml) ONE (18:18)
[2017-06-28] MEDS ORDERED: Insulin Regular 100 units/ml ONE (18:19)
[2017-06-28] MEDS ORDERED: Sod Polystyrene Sulf 15 gm/60 ml Oral Susp ONE (18:19)
[2017-06-28] MEDS ORDERED: Albuterol 0.083% Inhal Sol (2.5 mg/3 mL) UD ONE (18:32)
--- NOTE | 2017-06-28 18:32 | RAD ---
HISTORY: cough COMPARISON: Comparison made with prior chest radiograph 04/12/2017 FINDINGS: LUNGS: Right IJ dialysis catheter. Poor inspiration with low lung volumes, crowded bronchovascular markings and mild bibasilar atelectasis left greater than right. Previously noted left-sided effusion has diminished. PLEURA: No significant pleural effusion identified, no pneumothorax apparent. CARDIOVASCULAR: Heart size is borderline/ mildly enlarged OSSEOUS STRUCTURES: Mild degenerative changes both shoulder girdles. . VISUALIZED UPPER ABDOMEN: Normal. OTHER FINDINGS: None. IMPRESSION: Poor inspiration, low lung volumes, mild crowded bronchovascular markings. And mild bibasilar atelectasis left greater than right. . Previously noted small left-sided effusion improved.
[2017-06-28] MEDS: Fluticasone-Salmeterol 500-50mcg Diskus IH SCH (21:41)
[2017-06-29 06:55] LABS: HEMATOCRIT 27.3 % (35.0-51.0); MEAN CELL VOLUME 100.8 fl (80.0-94.0); MEAN CORPUSCULAR HEMOGLOBIN 32.8 pg (27.0-31.0); MEAN CORPUSCULAR HGB CONC 32.6 g/dL (33.0-37.0); RED CELL DISTRIBUTION WIDTH 17.2 % (11.5-14.5); WHITE BLOOD COUNT 8.4 K/uL (4.8-10.8)
[2017-06-29 07:13] LABS: ALB/GLOB RATIO 1.2 (1.0-2.1); BILIRUBIN,TOTAL 0.4 mg/dl (0.2-1.3); CALCIUM 8.7 mg/dL (8.4-10.2); POTASSIUM 5.7 MMOL/L (3.6-5.0); TOTAL PROTEIN 6.9 G/DL (6.3-8.2)
--- NOTE | 2017-06-29 09:31 | CP.PCM.PN ---
<Michael Calloway - Last Filed: 06/29/17 12:57> Subjective - Date & Time of Evaluation Date of Evaluation: 06/29/17 Time of Evaluation: 07:30 - Subjective Subjective: Overnight patient complaining of dysuria. Patient denies any chest pain, shortness of breath, dizziness upon admission or presently. Patient has not picked up medications from pharmacy. Patient feels well. Lying comfortably in bed. Had several BM last night, states he is oliguric but has dysuria and irritation of urethral meatus that began at 4 :00AM. He denies any sexual encounters/intercourse, no discharge. Pt states it was irritated by urine. Otherwise has productive cough that is chronic. No complaints of dyspnea, chest pain, palpations abdominal pain, nausea, vomiting, diarrhea or pedal edema. He will have hemodialysis today. Dr. Sandoval on consult. Will give kayexelate x 1 while awaiting dialysis Pharmacy: [phone] Objective - Vital Signs/Intake and Output Vital Signs (last 24 hours): Temp Pulse Resp BP Pulse Ox 98.4 F 90 20 122/71 95 06/29/17 08:30 06/29/17 08:30 06/29/17 08:30 06/29/17 08:30 06/29/17 08:30 - Medications Medications: Current Medications Amlodipine Besylate (Norvasc) 10 mg PO DAILY [facility] Aspirin (Ecotrin) 81 mg PO DAILY [facility] Calcium Acetate (Phoslo) 1,334 mg PO WM [facility] Last Admin: 06/28/17 19:35 Dose: 1,334 mg Carvedilol (Coreg) 12.5 mg PO Q12H [facility] Last Admin: 06/29/17 06:15 Dose: 12.5 mg Citalopram Hydrobromide (Celexa) 20 mg PO DAILY [facility] Clonidine HCl (Catapres) 0.3 mg PO TID [facility] Clopidogrel Bisulfate (Plavix) 75 mg PO DAILY [facility] Hydralazine HCl (Apresoline) 20 mg PO Q8H [facility] Last Admin: 06/29/17 02:15 Dose: 20 mg Labetalol HCl (Trandate) 200 mg PO Q12 [facility] Last Admin: 06/28/17 21:42 Dose: 200 mg Fluticasone/Salmeterol (Advair Diskus 500/50) 1 puff IH Q12 [facility] Last Admin: 06/28/17 21:41 Dose: 1 puff Spironolactone (Aldactone) 50 mg PO DAILY [facility] - Labs Labs: 06/29/17 05:00 06/29/17 05:00 - Constitutional Appears: Non-toxic, No Acute Distress - Head Exam Head Exam: ATRAUMATIC, NORMAL INSPECTION, NORMOCEPHALIC - Eye Exam Eye Exam: EOMI, Normal appearance, PERRL - ENT Exam ENT Exam: Mucous Membranes Moist, Normal Exam - Respiratory Exam Respiratory Exam: Rhonchi (diffuse). absent: Decreased Breath Sounds, Rales, Wheezes, Respiratory Distress - Cardiovascular Exam Cardiovascular Exam: REGULAR RHYTHM, +S1, +S2, Murmur - GI/Abdominal Exam GI & Abdominal Exam: Soft, Normal Bowel Sounds. absent: Distended, Guarding, Tenderness - Exam Exam: absent: Circumcision, Scrotal Swelling, Testicular Tenderness, Uretheral Discharge, Bladder Distension External exam: Erythema (minimal at urethral meatus, no discharge ). absent: Ecchymosis, Lacerations, Lesions, Swelling - Extremities Exam Extremities Exam: absent: Pedal Edema, Tenderness - Neurological Exam Neurological Exam: Alert, Awake, CN II-XII Intact, Oriented x3 - Psychiatric Exam Psychiatric exam: Normal Affect, Normal Mood - Skin Skin Exam: Dry, Intact, Normal Color Assessment and Plan - Assessment and Plan (Free Text) Assessment: 67 y/o homeless M with multiple comorbidities including Stage 5 ESRD (HD T,,S) , well known to service sent over from [facility] due to tachycardia admitted for SVT and hyperkalemia. SVT was treated with adenosine and has resolved. Hyperkalemia persists despite treatment with insulin, albuterol, sodium bicarb, however patient is scheduled for hemodialysis today- campus monitor reviewed. Sinus Tachycardia -resolved -campus monitor reviewed NSR HR 90s. Hyperkalemia Labs: hyperkalemia, ESRD stage 5 estimated GFR 10 hyperkalemia treated with insulin, albuterol and kayexalate, sodium bicarbonate , but persists. He is for HD today. 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 DVT Ppx ambulation scd <Chasity Botson - Last Filed: 06/30/17 08:20> Objective - Vital Signs/Intake and Output Vital Signs (last 24 hours): Temp Pulse Resp BP Pulse Ox 99.0 F 96 H 18 118/72 100 06/30/17 05:13 06/30/17 05:50 06/30/17 05:13 06/30/17 05:50 06/30/17 05:13 Intake and Output: 06/30/17 06/30/17 06:59 18:59 Intake Total 320 Balance 320 - Medications Medications: Current Medications Amlodipine Besylate (Norvasc) 10 mg PO DAILY [facility] Last Admin: 06/29/17 09:42 Dose: Not Given Aspirin (Ecotrin) 81 mg PO DAILY [facility] Last Admin: 06/29/17 09:41 Dose: 81 mg Calcium Acetate (Phoslo) 1,334 mg PO WM [facility] Last Admin: 06/29/17 17:32 Dose: 1,334 mg Carvedilol (Coreg) 12.5 mg PO Q12H [facility] Last Admin: 06/30/17 05:50 Dose: 12.5 mg Citalopram Hydrobromide (Celexa) 20 mg PO DAILY [facility] Last Admin: 06/29/17 09:42 Dose: 20 mg Clonidine HCl (Catapres) 0.3 mg PO TID [facility] Last Admin: 06/29/17 17:32 Dose: Not Given Clopidogrel Bisulfate (Plavix) 75 mg PO DAILY [facility] Last Admin: 06/29/17 09:42 Dose: 75 mg Epoetin José Manuel (Procrit) 10,000 unit IV TTS [facility] Last Admin: 06/29/17 22:39 Dose: 10,000 unit Hydralazine HCl (Apresoline) 20 mg PO Q8H [facility] Last Admin: 08/25/17 02:36 Dose: Not Given Labetalol HCl (Trandate) 200 mg PO Q12 [facility] Last Admin: 06/29/17 22:00 Dose: Not Given Fluticasone/Salmeterol (Advair Diskus 500/50) 1 puff IH Q12 [facility] Last Admin: 06/29/17 20:20 Dose: 1 puff Spironolactone (Aldactone) 50 mg PO DAILY [facility] - Labs Labs: 06/30/17 05:45 06/30/17 05:45 - Skin Additional comments: ADDENDUM ATTENDING NOTE PATIENT SEEN BY ME AND EXAMINED. CASE DISCUSSED WITH RESIDENT. AGREE WITH FINDINGS AND PLAN.
[2017-06-29] MEDS: Fluticasone-Salmeterol 500-50mcg Diskus IH SCH ×2 (09:39→20:20)
--- NOTE | 2017-06-29 11:40 | CP.PCM.CON ---
History of Present Illness - History of Present Illness History of Present Illness: Patient is a 67 a few years of phage admitted with shortness of breath and he was fond to have hyperkalemia and also tachycardia. Patient has very complicated history related to chronic kidney disease he required dialysis and also history of hypertension not taking any medication no compliance he stay in the hospital for about few months he just was discharged about the couple weeks ago to come back because this patient will never take any medication as outpatient. 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 Although he continued to receive dialysis Review of Systems - Constitutional Constitutional: As Per HPI - EENT Eyes: As Per HPI - Cardiovascular Cardiovascular: Dyspnea, Rapid Heart Rate - Respiratory Respiratory: Cough, Dyspnea on Exertion - Musculoskeletal Musculoskeletal: Muscle Weakness - Neurological Neurological: As Per HPI - Psychiatric Psychiatric: As Per HPI Past Patient History - Infectious Disease Hx of Infectious Diseases: None - Past Medical History & Family History Past Medical History?: Yes - Past Social History Smoking Status: Former Smoker - CARDIAC Hx Congestive Heart Failure: Yes Hx Hypertension: Yes - PULMONARY Hx Chronic Obstructive Pulmonary Disease (COPD): Yes Hx Pneumonia: Yes - NEUROLOGICAL Hx Seizures: Yes - HEENT Hx HEENT Problems: No - RENAL Hx Dialysis: Yes Type of Dialysis Access: Hemodialysis Date of Last Dialysis Treatment: 06/27/17 Hx Renal Failure: Yes - ENDOCRINE/METABOLIC Hx Endocrine Disorders: No - HEMATOLOGICAL/ONCOLOGICAL Hx Anemia: Yes Hx Human Immunodeficiency Virus (HIV): No - INTEGUMENTARY Hx Dermatological Problems: No - MUSCULOSKELETAL/RHEUMATOLOGICAL Hx Falls: No - GASTROINTESTINAL Hx Gastrointestinal Disorders: Yes Hx Hemorrhoids: Yes - GENITOURINARY/GYNECOLOGICAL Hx Genitourinary Disorders: No - PSYCHIATRIC Hx Substance Use: No - SURGICAL HISTORY Hx Coronary Stent: No - ANESTHESIA Hx Anesthesia: Yes Hx Anesthesia Reactions: No Meds Allergies/Adverse Reactions: Allergies Allergy/AdvReac Type Severity Reaction Status Date / Time sulfamethoxazole Allergy RASH Verified 03/06/17 17:55 [From ] trimethoprim [From ] Allergy RASH Verified 03/06/17 17:55 - Medications Medications: Current Medications Amlodipine Besylate (Norvasc) 10 mg PO DAILY [facility] Last Admin: 06/29/17 09:42 Dose: Not Given Aspirin (Ecotrin) 81 mg PO DAILY [facility] Last Admin: 06/29/17 09:41 Dose: 81 mg Calcium Acetate (Phoslo) 1,334 mg PO WM [facility] Last Admin: 06/29/17 09:40 Dose: 1,334 mg Carvedilol (Coreg) 12.5 mg PO Q12H [facility] Last Admin: 06/29/17 06:15 Dose: 12.5 mg Citalopram Hydrobromide (Celexa) 20 mg PO DAILY [facility] Last Admin: 06/29/17 09:42 Dose: 20 mg Clonidine HCl (Catapres) 0.3 mg PO TID [facility] Last Admin: 06/29/17 09:40 Dose: Not Given Clopidogrel Bisulfate (Plavix) 75 mg PO DAILY [facility] Last Admin: 06/29/17 09:42 Dose: 75 mg Hydralazine HCl (Apresoline) 20 mg PO Q8H [facility] Last Admin: 06/29/17 09:40 Dose: Not Given Labetalol HCl (Trandate) 200 mg PO Q12 [facility] Last Admin: 06/29/17 09:43 Dose: Not Given Fluticasone/Salmeterol (Advair Diskus 500/50) 1 puff IH Q12 [facility] Last Admin: 06/29/17 09:39 Dose: 1 puff Spironolactone (Aldactone) 50 mg PO DAILY [facility] Physical Exam - Constitutional Appears: No Acute Distress - ENT Exam ENT Exam: Mucous Membranes Moist - Respiratory Exam Respiratory Exam: Rhonchi. absent: Chest Wall Tenderness - Cardiovascular Exam Cardiovascular Exam: Tachycardia. absent: Rubs - GI/Abdominal Exam GI & Abdominal Exam: Normal Bowel Sounds - Extremities Exam Extremities exam: Negative for: calf tenderness Results - Vital Signs Recent Vital Signs: Last Vital Signs Temp 98.4 F 06/29/17 08:30 Pulse 90 06/29/17 08:30 Resp 20 06/29/17 08:30 BP 122/71 06/29/17 08:30 Pulse Ox 95 06/29/17 08:30 - Labs Result Diagrams: 06/29/17 05:00 06/29/17 05:00 Labs: Laboratory Results - last 24 hr 06/28/17 06/28/17 06/29/17 17:07 17:07 05:00 WBC 9.8 8.4 RBC 2.75 L 2.70 L Hgb 9.1 L 8.9 L Hct 27.8 L 27.3 L MCV 101.2 H 100.8 H MCH 33.2 H 32.8 H MCHC 32.8 L 32.6 L RDW 17.6 H 17.2 H Plt Count 265 252 MPV 7.3 Neut % (Auto) 63.2 Lymph % (Auto) 23.4 [place] % (Auto) 11.2 H Eos % (Auto) 1.7 Baso % (Auto) 0.5 Neut # 6.2 Lymph # 2.3 [place] # 1.1 H Eos # 0.2 Baso # 0.0 Sodium 138 Potassium 5.7 H Chloride 98 Carbon Dioxide 24 Anion Gap 22 H BUN 42 H Creatinine 6.8 H Est GFR ( Amer) 10 Est GFR (Non-Af Amer) 8 Random Glucose 88 Calcium 8.8 Total Bilirubin 0.5 AST 26 ALT 29 Alkaline Phosphatase 78 Troponin I < 0.0120 Total Protein 7.5 Albumin 4.1 Globulin 3.4 Albumin/Globulin Ratio 1.2 06/29/17 05:00 WBC RBC Hgb Hct MCV MCH MCHC RDW Plt Count MPV Neut % (Auto) Lymph % (Auto) [place] % (Auto) Eos % (Auto) Baso % (Auto) Neut # Lymph # [place] # Eos # Baso # Sodium 140 Potassium 5.7 H Chloride 101 Carbon Dioxide 25 Anion Gap 20 BUN 48 H Creatinine 7.8 H* Est GFR ( Amer) 8 Est GFR (Non-Af Amer) 7 Random Glucose 84 Calcium 8.7 Total Bilirubin 0.4 AST 22 ALT 28 Alkaline Phosphatase 73 Troponin I Total Protein 6.9 Albumin 3.7 Globulin 3.2 Albumin/Globulin Ratio 1.2 Assessment & Plan (1) End stage chronic kidney disease Assessment and Plan: Patient with end stage renal disease due to have dialysis today admitted with hyperkalemia and shortness of breath some tachycardia Patient scheduled to have dialysis shortly To give Kayexalate while waiting for dialysis to start Status post Cytoxan treatment 5 cycles Order was given for hemodialysis 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
[2017-06-29] MEDS ORDERED: Sod Polystyrene Sulf 15 gm/60 ml Oral Susp PO ONE (11:59)
[2017-06-29 17:45] LABS: RBC URINE 232 /hpf (0-3); URINE BILIRUBIN NEGATIVE (NEGATIVE); URINE BLOOD MODERATE (NEGATIVE); URINE COLOR YELLOW (YELLOW); URINE GLUCOSE (UA) NEG (Normal); URINE KETONE NEGATIVE (NEGATIVE); URINE LEUKOCYTE ESTERASE LARGE Leu/uL (Negative); URINE PROTEIN >=500 mg/dL (NEGATIVE); URINE UROBILINOGEN 0.2-1.0 mg/dL (0.2-1.0); WBC URINE 266 /hpf (0-5)
[2017-06-29] MEDS: EPOETIN ALFA 10,000 UNIT/ML ML IV SCH (22:39)
[2017-06-30 06:55] LABS: CALCIUM 8.9 mg/dL (8.4-10.2); POTASSIUM 4.7 MMOL/L (3.6-5.0)
[2017-06-30 07:04] LABS: HEMATOCRIT 26.1 % (35.0-51.0); MEAN CELL VOLUME 100.6 fl (80.0-94.0); MEAN CORPUSCULAR HEMOGLOBIN 32.8 pg (27.0-31.0); MEAN CORPUSCULAR HGB CONC 32.6 g/dL (33.0-37.0); RED CELL DISTRIBUTION WIDTH 16.8 % (11.5-14.5); WHITE BLOOD COUNT 7.7 K/uL (4.8-10.8)
--- NOTE | 2017-06-30 09:37 | CARD ---
APPROVED REPORT EKG Measurement Heart [id number] <Conclusion> Normal sinus rhythm Normal ECG
[2017-06-30] MEDS: Fluticasone-Salmeterol 500-50mcg Diskus IH SCH ×2 (09:51→21:36)
[2017-06-30] MEDS ORDERED: Sterile Water 20 ML IV ONE (11:23)
--- NOTE | 2017-06-30 11:38 | CP.PCM.PN ---
Subjective - Date & Time of Evaluation Date of Evaluation: 06/30/17 Time of Evaluation: 11:36 - Subjective Subjective: Patient and bed appeared to be comfortable Patient did not complete hemodialysis treatment on told that he is refusing he completed 2 and half hours 2 reported difficulty with the right subclavian dialysis catheter with the floor To give Cathflo now and see what happens tomorrow with the dialysis End stage renal disease on maintenance dialysis TTS Objective - Vital Signs/Intake and Output Vital Signs (last 24 hours): Temp Pulse Resp BP Pulse Ox 99.0 F 85 18 113/68 100 06/30/17 05:13 06/30/17 10:10 06/30/17 05:13 06/30/17 10:10 06/30/17 05:13 Intake and Output: 06/30/17 06/30/17 06:59 18:59 Intake Total 320 Balance 320 - Medications Medications: Current Medications Aspirin (Ecotrin) 81 mg PO DAILY [facility] Last Admin: 06/30/17 09:52 Dose: 81 mg Calcium Acetate (Phoslo) 1,334 mg PO WM [facility] Last Admin: 06/30/17 09:52 Dose: 1,334 mg Carvedilol (Coreg) 12.5 mg PO Q12H [facility] Last Admin: 06/30/17 05:50 Dose: 12.5 mg Citalopram Hydrobromide (Celexa) 20 mg PO DAILY [facility] Last Admin: 06/30/17 09:52 Dose: 20 mg Clonidine HCl (Catapres) 0.3 mg PO TID [facility] Last Admin: 06/30/17 10:10 Dose: 0.3 mg Clonidine HCl (Catapres) 0.3 mg PO BID [facility] Clopidogrel Bisulfate (Plavix) 75 mg PO DAILY [facility] Last Admin: 06/30/17 09:52 Dose: 75 mg Epoetin José Manuel (Procrit) 10,000 unit IV TTS [facility] Last Admin: 06/29/17 22:39 Dose: 10,000 unit Hydralazine HCl (Apresoline) 20 mg PO Q8H [facility] Last Admin: 06/30/17 09:53 Dose: 20 mg Fluticasone/Salmeterol (Advair Diskus 500/50) 1 puff IH Q12 [facility] Last Admin: 06/30/17 09:51 Dose: 1 puff - Labs Labs: 06/30/17 05:45 06/30/17 05:45 Assessment and Plan (1) End stage chronic kidney disease Status: Chronic
--- NOTE | 2017-06-30 11:43 | CP.PCM.PN ---
<Michael Calloway - Last Filed: 06/30/17 13:49> Subjective - Date & Time of Evaluation Date of Evaluation: 06/30/17 Time of Evaluation: 07:45 - Subjective Subjective: No overnight events. Patient did not finish dialysis yesterday, endorsed by nurse that permacath was not functioning properly. The patient was seen and examined with Dr. Sandoval, AV fistula does not appear to be mature enough for use. Will give ateplase and reassesses permacath tomorrow with dialysis. Patient feels well. No complaints offered. ID consult, Dr. Silver, awaiting recommendations. Objective - Vital Signs/Intake and Output Vital Signs (last 24 hours): Temp Pulse Resp BP Pulse Ox 99.0 F 85 18 113/68 100 06/30/17 05:13 06/30/17 10:10 06/30/17 05:13 06/30/17 10:10 06/30/17 05:13 Intake and Output: 06/30/17 06/30/17 06:59 18:59 Intake Total 320 Balance 320 - Medications Medications: Current Medications Aspirin (Ecotrin) 81 mg PO DAILY [facility] Last Admin: 06/30/17 09:52 Dose: 81 mg Calcium Acetate (Phoslo) 1,334 mg PO WM [facility] Last Admin: 06/30/17 09:52 Dose: 1,334 mg Carvedilol (Coreg) 12.5 mg PO Q12H [facility] Last Admin: 06/30/17 05:50 Dose: 12.5 mg Citalopram Hydrobromide (Celexa) 20 mg PO DAILY [facility] Last Admin: 06/30/17 09:52 Dose: 20 mg Clonidine HCl (Catapres) 0.3 mg PO TID [facility] Last Admin: 06/30/17 10:10 Dose: 0.3 mg Clonidine HCl (Catapres) 0.3 mg PO BID [facility] Clopidogrel Bisulfate (Plavix) 75 mg PO DAILY [facility] Last Admin: 06/30/17 09:52 Dose: 75 mg Epoetin José Manuel (Procrit) 10,000 unit IV TTS [facility] Last Admin: 06/29/17 22:39 Dose: 10,000 unit Hydralazine HCl (Apresoline) 20 mg PO Q8H [facility] Last Admin: 06/30/17 09:53 Dose: 20 mg Fluticasone/Salmeterol (Advair Diskus 500/50) 1 puff IH Q12 [facility] Last Admin: 06/30/17 09:51 Dose: 1 puff - Labs Labs: 06/30/17 05:45 06/30/17 05:45 - Constitutional Appears: Well - Head Exam Head Exam: ATRAUMATIC, NORMAL INSPECTION, NORMOCEPHALIC - Eye Exam Eye Exam: EOMI, Normal appearance, PERRL - Respiratory Exam Respiratory Exam: Rhonchi, NORMAL BREATHING PATTERN. absent: Respiratory Distress Additional comments: right chest permacath: no induration or erythema. - Cardiovascular Exam Cardiovascular Exam: REGULAR RHYTHM, +S1, +S2 - GI/Abdominal Exam GI & Abdominal Exam: Soft, Normal Bowel Sounds. absent: Tenderness - Extremities Exam Extremities Exam: Full ROM, Normal Inspection. absent: Joint Swelling, Pedal Edema - Neurological Exam Neurological Exam: Alert, Awake, CN II-XII Intact, Oriented x3 - Psychiatric Exam Psychiatric exam: Normal Affect, Normal Mood - Skin Skin Exam: Dry, Intact Assessment and Plan - Assessment and Plan (Free Text) Assessment: 67 y/o homeless M with multiple comorbidities including Stage 5 ESRD (HD T,Th,S) , well known to service sent over from [facility] due to tachycardia admitted for SVT and hyperkalemia that have resolved. Recieved HD yesterday. Feels well. No complaints offered today. Will Permacath infused with ateplase, will check tomorrow for patency during HD. Fistula is not yet matured. Pt evaluated by ID: [place] [facility] referral. Hyperkalemia resolved Dysuria UA: wbc and rbc elevated in the setting of vasculitic disease f/u cultures and gc/ct -persists. tylenol/tramadol for pain ESRD, stage 5 -chronic 2/2 ANCA positive cresenteric GN last eGFR 10 HD today T,Th,Sat Nephro on consult: Dr Sandoval. Systolic CHF -reduced ejection fraction/chronic/stable -Echo 04/02/17: LVEF 30-35% -Aldactone 50mg daily: held due to hyperkalemia COPD Chronic/stable Advair HTN stable medications confirmed with pharmacy, will resume those medications. -labetolol added, was being given during previous admission. Anemia of Chronic Disease-stable Likely secondary to ANCA negative vasculitis associated with CKD DVT Ppx ambulation scd <Chasity [place] - Last Filed: 06/30/17 14:57> Objective - Vital Signs/Intake and Output Vital Signs (last 24 hours): Temp Pulse Resp BP Pulse Ox 98.2 F 140 H 20 100/64 94 L 06/30/17 12:07 06/30/17 12:46 06/30/17 12:07 06/30/17 12:46 06/30/17 12:07 - Medications Medications: Current Medications Acetaminophen (Tylenol 325mg Tab) 650 mg PO Q6 PRN PRN Reason: Pain, Mild (1-3) Aspirin (Ecotrin) 81 mg PO DAILY [facility] Last Admin: 06/30/17 09:52 Dose: 81 mg Calcium Acetate (Phoslo) 1,334 mg PO WM [facility] Last Admin: 06/30/17 12:46 Dose: 1,334 mg Carvedilol (Coreg) 12.5 mg PO Q12H [facility] Last Admin: 06/30/17 05:50 Dose: 12.5 mg Citalopram Hydrobromide (Celexa) 20 mg PO DAILY [facility] Last Admin: 06/30/17 09:52 Dose: 20 mg Clopidogrel Bisulfate (Plavix) 75 mg PO DAILY [facility] Last Admin: 06/30/17 09:52 Dose: 75 mg Epoetin José Manuel (Procrit) 10,000 unit IV TTS [facility] Last Admin: 06/29/17 22:39 Dose: 10,000 unit Hydralazine HCl (Apresoline) 100 mg PO Q8H [facility] Last Admin: 06/30/17 14:29 Dose: Not Given Labetalol HCl (Trandate) 200 mg PO BID [facility] Last Admin: 06/30/17 12:46 Dose: 200 mg Fluticasone/Salmeterol (Advair Diskus 500/50) 1 puff IH Q12 [facility] Last Admin: 06/30/17 09:51 Dose: 1 puff Tramadol HCl (Ultram) 50 mg PO Q6 PRN PRN Reason: Pain, moderate (4-7) Last Admin: 06/30/17 13:59 Dose: 50 mg - Skin Additional comments: ADDENDUM ATTENDING NOTE PATIENT SEEN BY ME AND PERSONALLY EXAMINED. FINDINGS DISCUSSED WITH RESIDENT. AGREE WITH FINDINGS AND PLAN. PROBABLE DISCHARGE TOMORROW IF CATH PATENT AND PATIENT ABLE TO FINISH HIS HEMODIAYLSIS SESSION.
--- NOTE | 2017-06-30 13:17 | CP.PCM.CON ---
History of Present Illness - History of Present Illness History of Present Illness: 67 y/o homeless male sent over from [facility] due to tachycardia, shortness of breath , dizziness, and right sided intermittent chest pain ongoing for two days. 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 h/o Alcohol abuse. denies drug use. Homeless, stays in [facility] Review of Systems - Review of Systems All systems: reviewed and no additional remarkable complaints except - Constitutional Constitutional: As Per HPI - EENT Eyes: absent: As Per HPI, Blind Spots, Blurred Vision, Change in Vision, Decreased Night Vision, Diplopia, Discharge, Dry Eye, Exophthalmos, Floaters, Irritation, Itchy Eyes, Loss of Peripheral Vision, Pain, Photophobia, Requires Corrective Lenses, Sees Flashes, Spots in Vision, Tunnel Vision, Other Visual Disturbances, Loss of Vision, Other Ears: absent: As Per HPI, Decreased Hearing, Ear Discharge, Ear Pain, Tinnitus, Abnormal Hearing, Disequilibrium, Dizziness, Other Nose/Mouth/Throat: absent: As Per HPI, Epistaxis, Nasal Congestion, Nasal Discharge, Nasal Obstruction, Nasal Trauma, Nose Pain, Post Nasal Drip, Sinus Pain, Sinus Pressure, Bleeding Gums, Change in Voice, Dental Pain, Dry Mouth, Dysphagia, Halitosis, Hoarsness, Lip Swelling, Mouth Lesions, Mouth Pain, Odynophagia, Sore Throat, Throat Swelling, Tongue Swelling, Facial Pain, Neck Pain, Neck Mass, Other - Cardiovascular Cardiovascular: As Per HPI - Respiratory Respiratory: As Per HPI, Cough, Dyspnea - Gastrointestinal Gastrointestinal: absent: As Per HPI, Abdominal Pain, Belching, Bloating, Change in Bowel Habits, Change in Stool Character, Coffee Ground Emesis, Constipation, Cramping, Diarrhea, Dyspepsia, Dysphagia, Early Satiety, Excessive Flatus, Fecal Incontinence, Heartburn, Hematemesis, Hematochezia, Loose Stools, Melena, Nausea, Odynophagia, Temesmus, Vomiting, Other - Genitourinary Genitourinary: absent: As Per HPI, Change in Urinary Stream, Difficulty Urinating, Dysuria, Flank Pain, Hematuria, Pyuria, Nocturia, Urinary Incontinence, Urinary Frequency, Urinary Hesitance, Urinary Urgency, Voiding Freq/Small Amts, Freq UTI, Hx Renal/Bladder Calculi, Hx /Renal Surgery, Bladder Distension, Other - Musculoskeletal Musculoskeletal: absent: As Per HPI, Abnormal Gait, Arthralgias, Atrophy, Back Pain, Deformity, Joint Swelling, Limited Range of Motion, Loss of Height, Muscle Cramps, Muscle Weakness, Myalgias, Neck Pain, Numbness, Radiating Pain into Limb, Stiffness, Tingling, Other - Integumentary Integumentary: absent: As Per HPI, Acne, Alopecia, Bleeding Lesions, Change in Hair, Change in Nails, Change in Pigmentation, Changing Lesions, Dry Skin, Erythema, Furuncle, Hirsutism, Lesions, New Lesions, Non-Healing Lesions, Photosensitivity, Pruritus, Rash, Skin Pain, Skin Ulcer, Sores, Striae, Swelling , Unusual Bruising, Wounds, Jaundice, Other - Neurological Neurological: absent: As Per HPI, Abnormal Gait, Abnormal Hearing, Abnormal Movements, Abnormal Speech, Behavioral Changes, Burning Sensations, Confusion, Convulsions, Disequilibrium, Dizziness, Numbness, Focal Weakness, Frequent Falls , Headaches, Lack of Coordination, Loss of Vision, Memory Loss, Paresthesias, Radicular Pain, Restless Legs, Sensory Deficit, Syncope, Tingling, Tremor, Vertigo, Weakness, Other Visual Disturbances, Other - Psychiatric Psychiatric: absent: As Per HPI, Abnormal Sleep Pattern, Anhedonia, Anxiety, Auditory Hallucinations, Behavioral Changes, Change in Appetite, Change in Libido, Confusion, Depression, Difficulty Concentrating, Hallucinations, Homicidal Ideation, Hopelessness, Irritability, Memory Loss, Mood Swings, Panic Attacks, Paranoia, Suicidal Ideation, Visual Hallucinations, Tactile Hallucinations, Other - Endocrine Endocrine: absent: As Per HPI, Change in Body Appearance, Change in Libido, Cold Intolorance, Deepening of Voice, Excessive Sweating, Fatigue, Flushing, Heat Intolorance, Increase in Ring/Shoe/Hat Size, Palpitations, Polydipsia, Polyphagia, Polyuria, Other - Hematologic/Lymphatic Hematologic: absent: As Per HPI, Easy Bleeding, Easy Bruising, Lymphadenopathy, Other Past Patient History - Infectious Disease Hx of Infectious Diseases: None - Past Medical History & Family History Past Medical History?: Yes - Past Social History Smoking Status: Former Smoker - CARDIAC Hx Congestive Heart Failure: Yes Hx Hypertension: Yes - PULMONARY Hx Chronic Obstructive Pulmonary Disease (COPD): Yes Hx Pneumonia: Yes - NEUROLOGICAL Hx Seizures: Yes - HEENT Hx HEENT Problems: No - RENAL Hx Dialysis: Yes Type of Dialysis Access: Hemodialysis Date of Last Dialysis Treatment: 06/27/17 Hx Renal Failure: Yes - ENDOCRINE/METABOLIC Hx Endocrine Disorders: No - HEMATOLOGICAL/ONCOLOGICAL Hx Anemia: Yes Hx Human Immunodeficiency Virus (HIV): No - INTEGUMENTARY Hx Dermatological Problems: No - MUSCULOSKELETAL/RHEUMATOLOGICAL Hx Falls: No - GASTROINTESTINAL Hx Gastrointestinal Disorders: Yes Hx Hemorrhoids: Yes - GENITOURINARY/GYNECOLOGICAL Hx Genitourinary Disorders: No - PSYCHIATRIC Hx Substance Use: No - SURGICAL HISTORY Hx Coronary Stent: No - ANESTHESIA Hx Anesthesia: Yes Hx Anesthesia Reactions: No Meds Allergies/Adverse Reactions: Allergies Allergy/AdvReac Type Severity Reaction Status Date / Time sulfamethoxazole Allergy RASH Verified 03/06/17 17:55 [From ] trimethoprim [From ] Allergy RASH Verified 03/06/17 17:55 - Medications Medications: Current Medications Aspirin (Ecotrin) 81 mg PO DAILY [facility] Last Admin: 06/30/17 09:52 Dose: 81 mg Calcium Acetate (Phoslo) 1,334 mg PO WM [facility] Last Admin: 06/30/17 12:46 Dose: 1,334 mg Carvedilol (Coreg) 12.5 mg PO Q12H [facility] Last Admin: 06/30/17 05:50 Dose: 12.5 mg Citalopram Hydrobromide (Celexa) 20 mg PO DAILY [facility] Last Admin: 06/30/17 09:52 Dose: 20 mg Clonidine HCl (Catapres) 0.3 mg PO BID [facility] Clopidogrel Bisulfate (Plavix) 75 mg PO DAILY [facility] Last Admin: 06/30/17 09:52 Dose: 75 mg Epoetin José Manuel (Procrit) 10,000 unit IV TTS [facility] Last Admin: 06/29/17 22:39 Dose: 10,000 unit Hydralazine HCl (Apresoline) 20 mg PO Q8H [facility] Last Admin: 06/30/17 09:53 Dose: 20 mg Labetalol HCl (Trandate) 200 mg PO BID [facility] Last Admin: 06/30/17 12:46 Dose: 200 mg Fluticasone/Salmeterol (Advair Diskus 500/50) 1 puff IH Q12 [facility] Last Admin: 06/30/17 09:51 Dose: 1 puff Physical Exam - Constitutional Appears: Non-toxic, Cachectic, Chronically Ill - Head Exam Head Exam: NORMOCEPHALIC - Eye Exam Eye Exam: PERRL. absent: Scleral icterus - ENT Exam ENT Exam: Mucous Membranes Dry, Normal External Ear Exam - Neck Exam Neck exam: Negative for: Lymphadenopathy, Thyromegaly - Respiratory Exam Respiratory Exam: Decreased Breath Sounds, Prolonged Expiratory Phase, Rales, Rhonchi - Cardiovascular Exam Cardiovascular Exam: REGULAR RHYTHM, +S1, +S2 - GI/Abdominal Exam GI & Abdominal Exam: Diminished Bowel Sounds, Distended, Soft. absent: Rebound , Rigid, Tenderness - Rectal Exam Rectal Exam: Deferred - Exam Exam: NORMAL INSPECTION - Extremities Exam Extremities exam: Positive for: pedal pulses present. Negative for: calf tenderness, pedal edema, tenderness - Back Exam Back exam: absent: CVA tenderness (L), CVA tenderness (R), paraspinal tenderness - Neurological Exam Neurological exam: Alert, CN II-XII Intact, Oriented x3, Reflexes Normal - Psychiatric Exam Psychiatric exam: Depressed - Skin Skin Exam: Dry, Intact Results - Vital Signs Recent Vital Signs: Last Vital Signs Temp 98.2 F 06/30/17 12:07 Pulse 140 H 06/30/17 12:46 Resp 20 06/30/17 12:07 BP 100/64 06/30/17 12:46 Pulse Ox 94 L 06/30/17 12:07 - Labs Result Diagrams: 06/30/17 05:45 06/30/17 05:45 Labs: Laboratory Results - last 24 hr 06/29/17 06/30/17 06/30/17 17:00 05:45 05:45 WBC 7.7 RBC 2.59 L Hgb 8.5 L Hct 26.1 L MCV 100.6 H MCH 32.8 H MCHC 32.6 L RDW 16.8 H Plt Count 238 Sodium 140 Potassium 4.7 Chloride 100 Carbon Dioxide 28 Anion Gap 16 BUN 28 H Creatinine 5.3 H Est GFR ( Amer) 13 Est GFR (Non-Af Amer) 11 Random Glucose 83 Calcium 8.9 Urine Color Yellow Urine Clarity Cloudy Urine pH 8.0 Ur Specific [place] 1.012 Urine Protein >=500 Urine Glucose (UA) Neg Urine Ketones Negative Urine Blood Moderate Urine Nitrate Negative Urine Bilirubin Negative Urine Urobilinogen 0.2-1.0 Ur Leukocyte Esterase Large Urine RBC (Auto) 232 H Urine Microscopic WBC 266 H Ur Squamous Epith Cells 10 H Assessment & Plan (1) End stage chronic kidney disease Status: Chronic - Assessment and Plan (Free Text) Assessment: acute exac COPD chronic vasculitis on HD r/o infection cont iv rx pending cultures
[2017-06-30] MEDS ORDERED: Sodium Chloride 3% for Inhalation 4 ML VIAL.NEB IH PRN (13:19)
[2017-07-01 07:50] LABS: HEMATOCRIT 23.9 % (35.0-51.0); MEAN CELL VOLUME 99.9 fl (80.0-94.0); MEAN CORPUSCULAR HEMOGLOBIN 32.9 pg (27.0-31.0); RED CELL DISTRIBUTION WIDTH 17.1 % (11.5-14.5); WHITE BLOOD COUNT 8.1 K/uL (4.8-10.8)
[2017-07-01 09:09] LABS: CALCIUM 8.5 mg/dL (8.4-10.2)
[2017-07-01] MEDS: Fluticasone-Salmeterol 500-50mcg Diskus IH SCH ×2 (09:19→21:41)
--- NOTE | 2017-07-01 11:20 | CP.PCM.PN ---
<Michael Calloway - Last Filed: 07/01/17 11:33> Subjective - Date & Time of Evaluation Date of Evaluation: 07/01/17 Time of Evaluation: 08:30 - Subjective Subjective: No acute overnight events. Patient seen and examined with FM team. No complaints offered. Dizziness resolved, pain resolved. Awaiting dialysis. Will try with current permacath, s/p tx with ateplase yesterday. If not functioning will retry ateplase. Patient will likely need replacement of catheter. IR consult placed. Left message for Dr. Lopez at : [phone] Follow urine cultures and gc/ct. Given severity of patients pain and results of UA, will get ct abd/pelvis to assess for urolithiasis. Patients hg has been trending down. iron and ferritin as ordered. rpt cbc in pm. Objective - Vital Signs/Intake and Output Vital Signs (last 24 hours): Temp Pulse Resp BP Pulse Ox 98.8 F 79 20 103/48 L 95 07/01/17 08:00 07/01/17 09:24 07/01/17 08:00 07/01/17 09:24 07/01/17 08:00 - Medications Medications: Current Medications Acetaminophen (Tylenol 325mg Tab) 650 mg PO Q6 PRN PRN Reason: Pain, Mild (1-3) Last Admin: 06/30/17 17:26 Dose: 650 mg Aspirin (Ecotrin) 81 mg PO DAILY [facility] Last Admin: 07/01/17 09:22 Dose: 81 mg Calcium Acetate (Phoslo) 1,334 mg PO WM [facility] Last Admin: 07/01/17 08:21 Dose: 1,334 mg Carvedilol (Coreg) 25 mg PO Q12 [facility] Last Admin: 07/01/17 09:24 Dose: 25 mg Citalopram Hydrobromide (Celexa) 20 mg PO DAILY [facility] Last Admin: 07/01/17 10:59 Dose: 20 mg Clopidogrel Bisulfate (Plavix) 75 mg PO DAILY [facility] Last Admin: 07/01/17 09:20 Dose: 75 mg Epoetin José Manuel (Procrit) 10,000 unit IV TTS [facility] Last Admin: 06/29/17 22:39 Dose: 10,000 unit Hydralazine HCl (Apresoline) 50 mg PO Q8 [facility] Last Admin: 07/01/17 09:19 Dose: 50 mg Labetalol HCl (Trandate) 200 mg PO BID [facility] Last Admin: 07/01/17 09:21 Dose: 200 mg Fluticasone/Salmeterol (Advair Diskus 500/50) 1 puff IH Q12 [facility] Last Admin: 07/01/17 09:19 Dose: 1 puff Tramadol HCl (Ultram) 50 mg PO Q6 PRN PRN Reason: Pain, moderate (4-7) Last Admin: 06/30/17 13:59 Dose: 50 mg - Labs Labs: 07/01/17 06:00 07/01/17 06:00 - Constitutional Appears: Well - Head Exam Head Exam: ATRAUMATIC, NORMAL INSPECTION, NORMOCEPHALIC - Eye Exam Eye Exam: EOMI, Normal appearance, PERRL - ENT Exam ENT Exam: Mucous Membranes Moist, Normal Exam - Respiratory Exam Respiratory Exam: Decreased Breath Sounds, Rhonchi, NORMAL BREATHING PATTERN. absent: Accessory Muscle Use, Clear to Ausculation Bilateral, Rales, Respiratory Distress - Cardiovascular Exam Cardiovascular Exam: REGULAR RHYTHM, +S1, +S2 Additional comments: HR on monitor: 90s, NSR. - GI/Abdominal Exam GI & Abdominal Exam: Soft, Normal Bowel Sounds. absent: Distended, Guarding - Rectal Exam Rectal Exam: Deferred - Extremities Exam Extremities Exam: absent: Pedal Edema - Neurological Exam Neurological Exam: Alert, Awake, CN II-XII Intact, Oriented x3 - Psychiatric Exam Psychiatric exam: Normal Affect, Normal Mood - Skin Skin Exam: Dry, Intact Assessment and Plan - Assessment and Plan (Free Text) Assessment: 67 y/o homeless M with multiple comorbidities including Stage 5 ESRD (HD T,Th,S) , well known to service sent over from [facility] due to tachycardia admitted for SVT and hyperkalemia. Hyperkalemia resolved. Patient intermitently tachycardic with SVT and hypotension. Medications were adjusted. Will monitor HR/BP closely. Hg trending down, labs ordered. Dysuria appears to have resolved, unclear etiology , cultures are still pending. Permacath likely needs replacement. Will try dialysis again with current line and try with ateplase for second time, if unsuccessful will need replacement. IR was called on consult, message was left, will retry calling this afternoon. Pt evaluated by ID: Ran chest clinic referral. Dysuria UA: wbc and rbc elevated in the setting of vasculitic disease f/u cultures and gc/ct, CT abd/pelvis ordered to rule out urolithiasis. pain control ESRD, stage 5 -chronic 2/2 ANCA positive cresenteric GN last eGFR 10 HD today T,Th,Sat Nephro on consult: Dr Sandoval. Systolic CHF -reduced ejection fraction/chronic/stable -Echo 04/02/17: LVEF 30-35% COPD Chronic/stable Advair HTN patient became symptomatically hypotensive yesterday, BP remains low today. pt asymptomatic today. Medications adjusted. monitor closely. -labetolol added, was being given during previous admission. 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 DVT Ppx ambulation scds <Chasity Boston - Last Filed: 07/02/17 09:12> Objective - Vital Signs/Intake and Output Vital Signs (last 24 hours): Temp Pulse Resp BP Pulse Ox 98.9 F 84 18 120/59 L 95 07/02/17 08:00 07/02/17 08:46 07/02/17 08:00 07/02/17 08:46 07/02/17 08:00 - Medications Medications: Current Medications Acetaminophen (Tylenol 325mg Tab) 650 mg PO Q6 PRN PRN Reason: Pain, Mild (1-3) Last Admin: 07/02/17 00:35 Dose: 650 mg Aspirin (Ecotrin) 81 mg PO DAILY [facility] Last Admin: 07/02/17 08:46 Dose: 81 mg Calcium Acetate (Phoslo) 1,334 mg PO WM [facility] Last Admin: 07/02/17 08:44 Dose: 1,334 mg Carvedilol (Coreg) 25 mg PO Q12 [facility] Last Admin: 07/02/17 08:45 Dose: 25 mg Citalopram Hydrobromide (Celexa) 20 mg PO DAILY [facility] Last Admin: 07/02/17 08:45 Dose: 20 mg Clopidogrel Bisulfate (Plavix) 75 mg PO DAILY [facility] Last Admin: 07/02/17 08:46 Dose: 75 mg Epoetin José Manuel (Procrit) 10,000 unit IV TTS [facility] Last Admin: 07/02/17 02:00 Dose: 10,000 unit Hydralazine HCl (Apresoline) 50 mg PO Q8 [facility] Last Admin: 07/02/17 08:45 Dose: 50 mg Labetalol HCl (Trandate) 200 mg PO BID [facility] Last Admin: 07/02/17 08:46 Dose: 200 mg Fluticasone/Salmeterol (Advair Diskus 500/50) 1 puff IH Q12 [facility] Last Admin: 07/02/17 08:44 Dose: 1 puff - Labs Labs: 07/02/17 05:30 07/02/17 05:30 - Skin Additional comments: ADDENDUM ATTENDING NOTE PATIENT SEEN AND EXAMINED. CASE DISCUSSED WITH RESIDENT. SALES ENGINEERING MANAGER DR HOSSEIN VALENZUELAOWING PATIENT WITH OUR TEAM. HE ASKED THAT SECOND ATTEMPT OF ALTEPLASE RX FOR CATH BE DONE SO HEMODIAYLSIS MAY BE DONE IS SUCCESSFUL. IF NOT SUCCESSFUL THEN [facility] WILL HAVE TO REPLACE HD CATH. PATIENT APPEARS COMFORTABLE WITHOUT COMPLAINT WHEN SEEN ON ROUNDS.
--- NOTE | 2017-07-01 11:20 | CP.PCM.PN ---
Subjective - Date & Time of Evaluation Date of Evaluation: 07/01/17 Time of Evaluation: 11:18 - Subjective Subjective: seen and eamined no complaints Objective - Vital Signs/Intake and Output Vital Signs (last 24 hours): Temp Pulse Resp BP Pulse Ox 98.8 F 79 20 103/48 L 95 07/01/17 08:00 07/01/17 09:24 07/01/17 08:00 07/01/17 09:24 07/01/17 08:00 - Medications Medications: Current Medications Acetaminophen (Tylenol 325mg Tab) 650 mg PO Q6 PRN PRN Reason: Pain, Mild (1-3) Last Admin: 06/30/17 17:26 Dose: 650 mg Aspirin (Ecotrin) 81 mg PO DAILY [facility] Last Admin: 07/01/17 09:22 Dose: 81 mg Calcium Acetate (Phoslo) 1,334 mg PO WM [facility] Last Admin: 07/01/17 08:21 Dose: 1,334 mg Carvedilol (Coreg) 25 mg PO Q12 [facility] Last Admin: 07/01/17 09:24 Dose: 25 mg Citalopram Hydrobromide (Celexa) 20 mg PO DAILY [facility] Last Admin: 07/01/17 10:59 Dose: 20 mg Clopidogrel Bisulfate (Plavix) 75 mg PO DAILY [facility] Last Admin: 07/01/17 09:20 Dose: 75 mg Epoetin José Manuel (Procrit) 10,000 unit IV TTS [facility] Last Admin: 06/29/17 22:39 Dose: 10,000 unit Hydralazine HCl (Apresoline) 50 mg PO Q8 [facility] Last Admin: 07/01/17 09:19 Dose: 50 mg Labetalol HCl (Trandate) 200 mg PO BID [facility] Last Admin: 07/01/17 09:21 Dose: 200 mg Fluticasone/Salmeterol (Advair Diskus 500/50) 1 puff IH Q12 [facility] Last Admin: 07/01/17 09:19 Dose: 1 puff Tramadol HCl (Ultram) 50 mg PO Q6 PRN PRN Reason: Pain, moderate (4-7) Last Admin: 06/30/17 13:59 Dose: 50 mg - Labs Labs: 07/01/17 06:00 07/01/17 06:00 - Constitutional Appears: Well - Head Exam Head Exam: ATRAUMATIC - Eye Exam Eye Exam: Normal appearance - ENT Exam ENT Exam: Normal Exam - Neck Exam Neck Exam: Normal Inspection - Cardiovascular Exam Cardiovascular Exam: +S1, +S2 - GI/Abdominal Exam GI & Abdominal Exam: Normal Bowel Sounds - Extremities Exam Additional comments: no edema - Neurological Exam Neurological Exam: Alert, Oriented x3 - Psychiatric Exam Psychiatric exam: Normal Affect - Skin Skin Exam: Normal Color Assessment and Plan - Assessment and Plan (Free Text) Assessment: esrd / htn / anemia / secondary hyperparathyroid/hyperphos plan: hd will try again today w/ cath s/p cathflo. If doesn't work need IR to replace cath. hgb dropping , serial h & h r/o bleed. check iron profile and ferritin. on epo high dose. please check phos level
--- NOTE | 2017-07-01 14:12 | CT ---
PROCEDURE: CT Abdomen and Pelvis without intravenous contrast HISTORY: ?urolithiasis, pt on HD, minimal urine output COMPARISON: 04/06/2017. TECHNIQUE: CT scan of the abdomen and pelvis was performed without administration of oral or intravenous contrast. Coronal and sagittal reformatted images were obtained. Radiation dose: Total exam DLP = 591.66 mGy-cm. This CT exam was performed using one or more of the following dose reduction techniques: Automated exposure control, adjustment of the mA and/or kV according to patient size, and/or use of iterative reconstruction technique. FINDINGS: LOWER THORAX: There are small pleural effusions, larger on the left. There is a small pericardial effusion There is a small calcified granuloma in the right lateral lung base. There is subsegmental atelectasis in the left lower lobe. There is a 7 mm peripheral nodule in the right lower lobe, a 6 mm peripheral nodule in the right lower lobe and a 4 mm peripheral nodule in the inferior lingula. Last LIVER: The liver is normal in size. No gross lesion or ductal dilatation. GALLBLADDER AND BILE DUCTS: The gallbladder is contracted and there are small gallstones PANCREAS: The pancreas is normal in size. No gross lesion or ductal dilatation. SPLEEN: The spleen is normal in size. ADRENALS: Both adrenal glands are normal in size without discrete nodule. KIDNEYS AND URETERS: Both kidneys are normal in size. There is a 3 mm nonobstructing stone in the lower pole of the left kidney. No hydronephrosis. VASCULATURE: No aortic aneurysm. There are early atherosclerotic aortoiliac calcifications BOWEL: The small bowel loops are normal in caliber. There is moderate amount of stool scattered throughout the colon. There is mild colonic diverticulosis without CT evidence for acute diverticulitis. APPENDIX: Unremarkable. Normal appendix. PERITONEUM: Unremarkable. No free fluid. No free air. LYMPH NODES: Unremarkable. No enlarged lymph nodes. BLADDER: Unremarkable. REPRODUCTIVE: There is mild enlargement of the prostate gland with central coarse calcifications. BONES: No acute fracture. There are multilevel degenerative changes in the spine. OTHER FINDINGS: None. IMPRESSION: 1. 3 mm nonobstructing stone in the lower pole of the left kidney. No hydronephrosis. 2. Mild colonic diverticulosis without CT evidence for acute diverticulitis. 3. Bilateral small pleural effusions, larger on the left. Small pericardial effusion. 4. 4-6 mm nodules in the right middle lobe, right lower lobe and lingula. A dedicated CT scan of the thorax without contrast is recommended for complete evaluation of the lungs.
[2017-07-01 17:10] LABS: PHOSPHOROUS 6.9 mg/dl (2.5-4.5)
[2017-07-01 17:14] LABS: HEMATOCRIT 24.4 % (35.0-51.0); MEAN CELL VOLUME 100.3 fl (80.0-94.0); MEAN CORPUSCULAR HEMOGLOBIN 32.7 pg (27.0-31.0); MEAN CORPUSCULAR HGB CONC 32.7 g/dL (33.0-37.0); RED CELL DISTRIBUTION WIDTH 16.9 % (11.5-14.5); WHITE BLOOD COUNT 7.3 K/uL (4.8-10.8)
[2017-07-01 17:31] LABS: IRON 26 ug/dL (49-181)
[2017-07-02] MEDS: EPOETIN ALFA 10,000 UNIT/ML ML IV SCH (02:00)
[2017-07-02 07:03] LABS: HEMATOCRIT 26.5 % (35.0-51.0); MEAN CELL VOLUME 99.8 fl (80.0-94.0); MEAN CORPUSCULAR HEMOGLOBIN 32.7 pg (27.0-31.0); MEAN CORPUSCULAR HGB CONC 32.7 g/dL (33.0-37.0); RED CELL DISTRIBUTION WIDTH 16.9 % (11.5-14.5); WHITE BLOOD COUNT 8.6 K/uL (4.8-10.8)
[2017-07-02 07:20] LABS: CALCIUM 9.1 mg/dL (8.4-10.2)
[2017-07-02] MEDS: Fluticasone-Salmeterol 500-50mcg Diskus IH SCH ×2 (08:44→21:39)
--- NOTE | 2017-07-02 13:47 | CP.PCM.PN ---
<Stewart Schmidt - Last Filed: 07/02/17 13:44> Subjective - Date & Time of Evaluation Date of Evaluation: 07/02/17 Time of Evaluation: 10:20 - Subjective Subjective: Patient seen and examined at bedside. No acute events overnight. Was able to get HD without complications. Cath patent with interventions, no replacement done. Patient states continues to have episodes of dysuria intermittently. Urinating minimally. CT abd/pelvis completed yesterday. No other complaints offered at this time. No fever, chills, penile discharge, gross hematuria. Objective - Vital Signs/Intake and Output Vital Signs (last 24 hours): Temp Pulse Resp BP Pulse Ox 98.5 F 78 20 107/55 L 98 07/02/17 13:00 07/02/17 13:00 07/02/17 13:00 07/02/17 13:00 07/02/17 13:00 - Medications Medications: Current Medications Acetaminophen (Tylenol 325mg Tab) 650 mg PO Q6 PRN PRN Reason: Pain, Mild (1-3) Last Admin: 07/02/17 00:35 Dose: 650 mg Aspirin (Ecotrin) 81 mg PO DAILY [facility] Last Admin: 07/02/17 08:46 Dose: 81 mg Calcium Acetate (Phoslo) 1,334 mg PO WM [facility] Last Admin: 07/02/17 12:32 Dose: 1,334 mg Carvedilol (Coreg) 25 mg PO Q12 [facility] Last Admin: 07/02/17 08:45 Dose: 25 mg Citalopram Hydrobromide (Celexa) 20 mg PO DAILY [facility] Last Admin: 07/02/17 08:45 Dose: 20 mg Clopidogrel Bisulfate (Plavix) 75 mg PO DAILY [facility] Last Admin: 07/02/17 08:46 Dose: 75 mg Epoetin José Manuel (Procrit) 10,000 unit IV TTS [facility] Last Admin: 07/02/17 02:00 Dose: 10,000 unit Hydralazine HCl (Apresoline) 50 mg PO Q8 [facility] Last Admin: 07/02/17 08:45 Dose: 50 mg Labetalol HCl (Trandate) 200 mg PO BID [facility] Last Admin: 07/02/17 08:46 Dose: 200 mg Fluticasone/Salmeterol (Advair Diskus 500/50) 1 puff IH Q12 [facility] Last Admin: 07/02/17 08:44 Dose: 1 puff - Labs Labs: 07/02/17 05:30 07/02/17 05:30 - Constitutional Appears: Well, Non-toxic, No Acute Distress - Head Exam Head Exam: ATRAUMATIC, NORMAL INSPECTION, NORMOCEPHALIC - Eye Exam Eye Exam: Normal appearance - Respiratory Exam Respiratory Exam: Rhonchi, NORMAL BREATHING PATTERN - Cardiovascular Exam Cardiovascular Exam: REGULAR RHYTHM, +S1, +S2 - GI/Abdominal Exam GI & Abdominal Exam: Soft, Normal Bowel Sounds. absent: Tenderness - Exam Exam: Circumcision, NORMAL INSPECTION. absent: Scrotal Swelling, Testicular Tenderness, Uretheral Discharge External exam: absent: Erythema, Lacerations, Lesions - Extremities Exam Extremities Exam: Normal Inspection - Back Exam Back Exam: NORMAL INSPECTION - Neurological Exam Neurological Exam: Alert, Awake, Normal Gait, Oriented x3 - Psychiatric Exam Psychiatric exam: Normal Affect, Normal Mood - Skin Skin Exam: Dry, Intact, Normal Color, Warm Assessment and Plan - Assessment and Plan (Free Text) Assessment: 67 y/o homeless M with multiple comorbidities including Stage 5 ESRD (HD T,Th,S) , well known to service admitted for SVT and renal failure. Complicated by hyperkalemia and HD catheter blockage. Dysuria episodes continues. Pt evaluated by ID: [facility] clinic referral. Dysuria UA: wbc and rbc elevated in the setting of vasculitic disease Urine culture, GC/Chlamydia negative CT abdomen reviewed, no factors noted that can be causing symptoms pain control Spoke with supervisor [employer] concerning this issue, recommends patient to follow up with urologist as outpatient ESRD, stage 5 -chronic 2/2 ANCA positive cresenteric GN last eGFR 10 HD today T,Th,Sat Nephro on consult: Dr Sandoval. HD catheter now patent with interventions of ateplase, received HD last night without complications Systolic CHF -reduced ejection fraction/chronic/stable -Echo 04/02/17: LVEF 30-35% Latent TB ID consulted Will need [place] [facility] referral/appt as outpatient COPD Chronic/stable Advair HTN Asymptomatic Medications adjusted. monitor closely. 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 DVT Ppx ambulation scds <Chasity Boston - Last Filed: 07/03/17 07:16> Objective - Vital Signs/Intake and Output Vital Signs (last 24 hours): Temp Pulse Resp BP Pulse Ox 98.5 F 61 20 107/50 L 96 07/03/17 05:12 07/03/17 05:12 07/03/17 05:12 07/03/17 05:12 07/03/17 05:12 - Medications Medications: Current Medications Acetaminophen (Tylenol 325mg Tab) 650 mg PO Q6 PRN PRN Reason: Pain, Mild (1-3) Last Admin: 07/02/17 00:35 Dose: 650 mg Aspirin (Ecotrin) 81 mg PO DAILY [facility] Last Admin: 07/02/17 08:46 Dose: 81 mg Calcium Acetate (Phoslo) 1,334 mg PO WM [facility] Last Admin: 07/02/17 17:31 Dose: 1,334 mg Carvedilol (Coreg) 25 mg PO Q12 [facility] Last Admin: 07/02/17 21:39 Dose: 25 mg Citalopram Hydrobromide (Celexa) 20 mg PO DAILY [facility] Last Admin: 07/02/17 08:45 Dose: 20 mg Clopidogrel Bisulfate (Plavix) 75 mg PO DAILY [facility] Last Admin: 07/02/17 08:46 Dose: 75 mg Epoetin José Manuel (Procrit) 10,000 unit IV TTS [facility] Last Admin: 07/02/17 02:00 Dose: 10,000 unit Hydralazine HCl (Apresoline) 50 mg PO Q8 [facility] Last Admin: 07/03/17 00:45 Dose: 50 mg Labetalol HCl (Trandate) 200 mg PO BID [facility] Last Admin: 07/02/17 16:46 Dose: 200 mg Fluticasone/Salmeterol (Advair Diskus 500/50) 1 puff IH Q12 [facility] Last Admin: 07/02/17 21:39 Dose: 1 puff - Labs Labs: 07/02/17 05:30 07/02/17 05:30 - Skin Additional comments: ADDENDUM ATTENDING NOTE PATIENT SEEN AND EXAMINED. CASE DISCUSSED WITH RESIDENT. AGREE WITH FINDINGS AND PLAN.
--- NOTE | 2017-07-02 13:47 | CP.PCM.PN ---
Subjective - Date & Time of Evaluation Date of Evaluation: 07/02/17 Time of Evaluation: 09:00 - Subjective Subjective: less cough less sob no fever Objective - Vital Signs/Intake and Output Vital Signs (last 24 hours): Temp Pulse Resp BP Pulse Ox 98.5 F 78 20 107/55 L 98 07/02/17 13:00 07/02/17 13:00 07/02/17 13:00 07/02/17 13:00 07/02/17 13:00 - Medications Medications: Current Medications Acetaminophen (Tylenol 325mg Tab) 650 mg PO Q6 PRN PRN Reason: Pain, Mild (1-3) Last Admin: 07/02/17 00:35 Dose: 650 mg Aspirin (Ecotrin) 81 mg PO DAILY [facility] Last Admin: 07/02/17 08:46 Dose: 81 mg Calcium Acetate (Phoslo) 1,334 mg PO WM [facility] Last Admin: 07/02/17 12:32 Dose: 1,334 mg Carvedilol (Coreg) 25 mg PO Q12 [facility] Last Admin: 07/02/17 08:45 Dose: 25 mg Citalopram Hydrobromide (Celexa) 20 mg PO DAILY [facility] Last Admin: 07/02/17 08:45 Dose: 20 mg Clopidogrel Bisulfate (Plavix) 75 mg PO DAILY [facility] Last Admin: 07/02/17 08:46 Dose: 75 mg Epoetin José Manuel (Procrit) 10,000 unit IV TTS [facility] Last Admin: 07/02/17 02:00 Dose: 10,000 unit Hydralazine HCl (Apresoline) 50 mg PO Q8 [facility] Last Admin: 07/02/17 08:45 Dose: 50 mg Labetalol HCl (Trandate) 200 mg PO BID [facility] Last Admin: 07/02/17 08:46 Dose: 200 mg Fluticasone/Salmeterol (Advair Diskus 500/50) 1 puff IH Q12 [facility] Last Admin: 07/02/17 08:44 Dose: 1 puff - Labs Labs: 07/02/17 05:30 07/02/17 05:30 - Constitutional Appears: Non-toxic, Chronically Ill - Head Exam Head Exam: NORMOCEPHALIC - Eye Exam Eye Exam: PERRL - ENT Exam ENT Exam: Mucous Membranes Dry - Neck Exam Neck Exam: absent: Lymphadenopathy - Respiratory Exam Respiratory Exam: Decreased Breath Sounds - Cardiovascular Exam Cardiovascular Exam: REGULAR RHYTHM - GI/Abdominal Exam GI & Abdominal Exam: Distended, Soft - Rectal Exam Rectal Exam: Deferred - Exam Exam: NORMAL INSPECTION Assessment and Plan (1) End stage chronic kidney disease Status: Chronic - Assessment and Plan (Free Text) Assessment: cont rx exac CHF/COPD
[2017-07-03 08:28] VITALS: RESP 18
[2017-07-03] MEDS: Fluticasone-Salmeterol 500-50mcg Diskus IH SCH (09:42)
[2017-07-03 12:47] VITALS: BP 127/64; PULSE 79; TEMP 97.5; O2SAT 97
--- NOTE | 2017-07-03 13:13 | CP.PCM.DIS ---
<Michael Calloway - Last Filed: 07/03/17 15:26> Provider - Provider Date of Admission: 06/30/17 13:33 Attending physician: Chasity Boston MD Primary care physician: [facility] Consults: ID: Dr. Silver Nephro: Dr. Sandoval Time Spent in preparation of Discharge (in minutes): 35 Diagnosis - Discharge Diagnosis (1) Supraventricular tachycardia Status: Resolved Comment: resolved. (2) Hyperkalemia Status: Resolved (3) End stage chronic kidney disease Status: Chronic Comment: on HD T/TH/SAT. 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 can take tylenol PRN. Can follow with urology as outpatient. (4) COPD (chronic obstructive pulmonary disease) Status: Chronic Comment: d/c on Advair (5) Hypertension Status: Chronic Comment: Controlled with Coreg 25mg BID/Hydralazine 50mg PO TID. ASA/Plavix (6) Dysuria Status: Resolved Comment: unclear etiology. follow up with urology outpatient. UA +WBC/+RBCs. urine cultures negative. urine gc/ct negative Hospital Course - Lab Results Lab Results: Micro Results 07/01/17 19:00 Sputum Gram Stain - Final Most Recent Lab Values WBC 8.6 K/uL (4.8-10.8) 07/02/17 05:30 RBC 2.66 Mil/uL (4.40-5.90) L 07/02/17 05:30 Hgb 8.7 g/dL (12.0-18.0) L 07/02/17 05:30 Hct 26.5 % (35.0-51.0) L 07/02/17 05:30 MCV 99.8 fl (80.0-94.0) H 07/02/17 05:30 MCH 32.7 pg (27.0-31.0) H 07/02/17 05:30 MCHC 32.7 g/dL (33.0-37.0) L 07/02/17 05:30 RDW 16.9 % (11.5-14.5) H 07/02/17 05:30 Plt Count 244 K/uL (130-400) 07/02/17 05:30 MPV 7.3 fl (7.2-11.7) 06/28/17 17:07 Neut % (Auto) 63.2 % (50.0-75.0) 06/28/17 17:07 Lymph % (Auto) 23.4 % (20.0-40.0) 06/28/17 17:07 [place] % (Auto) 11.2 % (0.0-10.0) H 06/28/17 17:07 Eos % (Auto) 1.7 % (0.0-4.0) 06/28/17 17:07 Baso % (Auto) 0.5 % (0.0-2.0) 06/28/17 17:07 Neut # 6.2 K/uL (1.8-7.0) 06/28/17 17:07 Lymph # 2.3 K/uL (1.0-4.3) 06/28/17 17:07 [place] # 1.1 K/uL (0.0-0.8) H 06/28/17 17:07 Eos # 0.2 K/uL (0.0-0.7) 06/28/17 17:07 Baso # 0.0 K/uL (0.0-0.2) 06/28/17 17:07 Sodium 141 mmol/l (132-148) 07/02/17 05:30 Potassium 4.0 MMOL/L (3.6-5.0) 07/02/17 05:30 Chloride 102 mmol/L (98-107) 07/02/17 05:30 Carbon Dioxide 27 mmol/L (22-30) 07/02/17 05:30 Anion Gap 16 (10-20) 07/02/17 05:30 BUN 15 mg/dl (9-20) 07/02/17 05:30 Creatinine 3.6 mg/dL (0.8-1.5) H 07/02/17 05:30 Est GFR ( Amer) 07/02/17 05:30 Est GFR (Non-Af Amer) 17 07/02/17 05:30 Random Glucose 104 mg/dL (75-110) 07/02/17 05:30 Calcium 9.1 mg/dL (8.4-10.2) 07/02/17 05:30 Phosphorus 6.9 mg/dl (2.5-4.5) H 07/01/17 16:15 Iron 26 ug/dL (49-181) L 07/01/17 16:15 TIBC 177 ug/dL (250-450) L 07/01/17 16:15 % Saturation 14 % (20-55) L 07/01/17 16:15 Ferritin 401.0 ng/mL 07/01/17 16:15 Total Bilirubin 0.4 mg/dl (0.2-1.3) 06/29/17 05:00 AST 22 U/L (17-59) 06/29/17 05:00 ALT 28 U/L (21-72) 06/29/17 05:00 Alkaline Phosphatase 73 U/L (38-126) 06/29/17 05:00 Troponin I < 0.0120 ng/mL (0.00-0.120) 06/28/17 17:07 Total Protein 6.9 G/DL (6.3-8.2) 06/29/17 05:00 Albumin 3.7 g/dL (3.5-5.0) 06/29/17 05:00 Globulin 3.2 gm/dL (2.2-3.9) 06/29/17 05:00 Albumin/Globulin Ratio 1.2 (1.0-2.1) 06/29/17 05:00 Urine Color Yellow (YELLOW) 06/29/17 17:00 Urine Clarity Cloudy (Clear) 06/29/17 17:00 Urine pH 8.0 (5.0-8.0) 06/29/17 17:00 Ur Specific [place] 1.012 (1.003-1.030) 06/29/17 17:00 Urine Protein >=500 mg/dL (NEGATIVE) 06/29/17 17:00 Urine Glucose (UA) Neg mg/dL (Normal) 06/29/17 17:00 Urine Ketones Negative mg/dL (NEGATIVE) 06/29/17 17:00 Urine Blood Moderate (NEGATIVE) 06/29/17 17:00 Urine Nitrate Negative (NEGATIVE) 06/29/17 17:00 Urine Bilirubin Negative (NEGATIVE) 06/29/17 17:00 Urine Urobilinogen 0.2-1.0 mg/dL (0.2-1.0) 06/29/17 17:00 Ur Leukocyte Esterase Large Thai/uL (Negative) 06/29/17 17:00 Urine RBC (Auto) 232 /hpf (0-3) H 06/29/17 17:00 Urine Microscopic WBC 266 /hpf (0-5) H 06/29/17 17:00 Ur Squamous Epith Cells 10 /hpf (0-5) H 06/29/17 17:00 C.trachomatis RNA (TMA) Not detected (Not Detected) 06/29/17 16:30 Hep Bs Antigen Negative (NEGATIVE) 07/02/17 02:45 Hep Bs Antibody Negative (NEGATIVE) 07/02/17 05:30 Hep B Core IgM Ab Negative (NEGATIVE) 07/02/17 02:45 N.gonorrhoeae RNA (TMA) Not detected (Not Detected) 06/29/17 16:30 - Hospital Course Hospital Course: 67 y/o homeless male with HTN, COPD, Stage 5 ESRD (HD T,,S) admitted for SVT and renal failure. Patient was treated for SVT and hyperkalemia that both resolved. He received HD on , permacath was found to not be working properly, flushed x2 with ateplase with successful return of function. He received dialysis monday. Complaint of dysuria during this admission resolved , urine cultures and GC/CT were negative and CT abd/pelvis was unremarkable for stone in urinary bladder. Patient seen and evaluated by ID, recommends outpatient follow up with Chest clinic due to hx of +quantiferon. Patient was given copies of his chest ct/chest xray and lab work. Patient felt well this morning. No complaints were offered. 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 - Date & Time of H&P Date of H&P: 06/28/17 Time of H&P: 16:02 Discharge Exam - Head Exam Head Exam: ATRAUMATIC, NORMAL INSPECTION, NORMOCEPHALIC - Eye Exam Eye Exam: Normal appearance - ENT Exam ENT Exam: Mucous Membranes Moist - Respiratory Exam Respiratory Exam: Decreased Breath Sounds, Rhonchi, NORMAL BREATHING PATTERN. absent: Respiratory Distress - Cardiovascular Exam Cardiovascular Exam: REGULAR RHYTHM, +S1, +S2 - GI/Abdominal Exam GI & Abdominal Exam: Unremarkable - Extremities Exam Additional comments: no pedal edema, no tenderness - Neurological Exam Neurological exam: Alert, CN II-XII Intact, Oriented x3 - Psychiatric Exam Psychiatric exam: Normal Affect, Normal Mood - Skin Skin Exam: Dry, Intact, Normal Color, Warm Discharge Plan - Discharge Medications Prescriptions: Aspirin [Ecotrin] 81 mg PO DAILY #30 Calcium Acetate [Phoslo] 1,334 mg PO WM #90 Carvedilol [Coreg] 25 mg PO Q12 #60 tab Citalopram Hydrobromide [Celexa] 20 mg PO DAILY #30 Clopidogrel [Plavix] 75 mg PO DAILY #30 Fluticasone/Salmeterol 500/50 [Advair Diskus 500/50] 1 puff IH Q12 #1 puff hydrALAZINE [Apresoline] 50 mg PO Q8 #90 tab - Follow Up Plan Condition: FAIR Disposition: HOME/ ROUTINE Instructions: Chronic Kidney Disease (DC) Additional Instructions: Follow up at [facility] on July 21, 2017 at 10:20 AM Has appt at [facility] on July 14, 2017 at 9:00AM [facility]: [address] [place] [address] <Chasity Boston - Last Filed: 07/04/17 08:09> Provider - Provider Date of Admission: 06/30/17 13:33 Attending physician: Chasity Boston MD Hospital Course - Lab Results Lab Results: Micro Results 07/01/17 19:00 Sputum Gram Stain - Final Most Recent Lab Values WBC 8.6 K/uL (4.8-10.8) 07/02/17 05:30 RBC 2.66 Mil/uL (4.40-5.90) L 07/02/17 05:30 Hgb 8.7 g/dL (12.0-18.0) L 07/02/17 05:30 Hct 26.5 % (35.0-51.0) L 07/02/17 05:30 MCV 99.8 fl (80.0-94.0) H 07/02/17 05:30 MCH 32.7 pg (27.0-31.0) H 07/02/17 05:30 MCHC 32.7 g/dL (33.0-37.0) L 07/02/17 05:30 RDW 16.9 % (11.5-14.5) H 07/02/17 05:30 Plt Count 244 K/uL (130-400) 07/02/17 05:30 MPV 7.3 fl (7.2-11.7) 06/28/17 17:07 Neut % (Auto) 63.2 % (50.0-75.0) 06/28/17 17:07 Lymph % (Auto) 23.4 % (20.0-40.0) 06/28/17 17:07 [place] % (Auto) 11.2 % (0.0-10.0) H 06/28/17 17:07 Eos % (Auto) 1.7 % (0.0-4.0) 06/28/17 17:07 Baso % (Auto) 0.5 % (0.0-2.0) 06/28/17 17:07 Neut # 6.2 K/uL (1.8-7.0) 06/28/17 17:07 Lymph # 2.3 K/uL (1.0-4.3) 06/28/17 17:07 [place] # 1.1 K/uL (0.0-0.8) H 06/28/17 17:07 Eos # 0.2 K/uL (0.0-0.7) 06/28/17 17:07 Baso # 0.0 K/uL (0.0-0.2) 06/28/17 17:07 Sodium 141 mmol/l (132-148) 07/02/17 05:30 Potassium 4.0 MMOL/L (3.6-5.0) 07/02/17 05:30 Chloride 102 mmol/L (98-107) 07/02/17 05:30 Carbon Dioxide 27 mmol/L (22-30) 07/02/17 05:30 Anion Gap 16 (10-20) 07/02/17 05:30 BUN 15 mg/dl (9-20) 07/02/17 05:30 Creatinine 3.6 mg/dL (0.8-1.5) H 07/02/17 05:30 Est GFR ( Amer) 21 07/02/17 05:30 Est GFR (Non-Af Amer) 17 07/02/17 05:30 Random Glucose 104 mg/dL (75-110) 07/02/17 05:30 Calcium 9.1 mg/dL (8.4-10.2) 07/02/17 05:30 Phosphorus 6.9 mg/dl (2.5-4.5) H 07/01/17 16:15 Iron 26 ug/dL (49-181) L 07/01/17 16:15 TIBC 177 ug/dL (250-450) L 07/01/17 16:15 % Saturation 14 % (20-55) L 07/01/17 16:15 Ferritin 401.0 ng/mL 07/01/17 16:15 Total Bilirubin 0.4 mg/dl (0.2-1.3) 06/29/17 05:00 AST 22 U/L (17-59) 06/29/17 05:00 ALT 28 U/L (21-72) 06/29/17 05:00 Alkaline Phosphatase 73 U/L (38-126) 06/29/17 05:00 Troponin I < 0.0120 ng/mL (0.00-0.120) 06/28/17 17:07 Total Protein 6.9 G/DL (6.3-8.2) 06/29/17 05:00 Albumin 3.7 g/dL (3.5-5.0) 06/29/17 05:00 Globulin 3.2 gm/dL (2.2-3.9) 06/29/17 05:00 Albumin/Globulin Ratio 1.2 (1.0-2.1) 06/29/17 05:00 Urine Color Yellow (YELLOW) 06/29/17 17:00 Urine Clarity Cloudy (Clear) 06/29/17 17:00 Urine pH 8.0 (5.0-8.0) 06/29/17 17:00 Ur Specific [place] 1.012 (1.003-1.030) 06/29/17 17:00 Urine Protein >=500 mg/dL (NEGATIVE) 06/29/17 17:00 Urine Glucose (UA) Neg mg/dL (Normal) 06/29/17 17:00 Urine Ketones Negative mg/dL (NEGATIVE) 06/29/17 17:00 Urine Blood Moderate (NEGATIVE) 06/29/17 17:00 Urine Nitrate Negative (NEGATIVE) 06/29/17 17:00 Urine Bilirubin Negative (NEGATIVE) 06/29/17 17:00 Urine Urobilinogen 0.2-1.0 mg/dL (0.2-1.0) 06/29/17 17:00 Ur Leukocyte Esterase Large [place]/uL (Negative) 06/29/17 17:00 Urine RBC (Auto) 232 /hpf (0-3) H 06/29/17 17:00 Urine Microscopic WBC 266 /hpf (0-5) H 06/29/17 17:00 Ur Squamous Epith Cells 10 /hpf (0-5) H 06/29/17 17:00 C.trachomatis RNA (TMA) Not detected (Not Detected) 06/29/17 16:30 Hep Bs Antigen Negative (NEGATIVE) 07/02/17 02:45 Hep Bs Antibody Negative (NEGATIVE) 07/02/17 05:30 Hep B Core IgM Ab Negative (NEGATIVE) 07/02/17 02:45 N.gonorrhoeae RNA (TMA) Not detected (Not Detected) 06/29/17 16:30 Discharge Exam - Skin Additional comments: ADDENDUM ATTENDING NOTE PATIENT SEEN AND EXAMINED. CASE DISCUSSED WITH RESIDENT. AGREE WITH FINDINGS AND PLAN. PATIENT ENCOURAGE TO KEEP FOLLOW UP APPOINTMENTS AT 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
== END 2017-07-03 14:10 | disposition home or self-care (01) | DRG 544 ==
LOC: H.ER 16:10 → H.ERHOLD 16:53 → H.TEL 20:33 → OBSVTOIN 06-30 13:33 → H.TEL 06-30 22:06
PROVIDERS: ADMIT Emergency Medicine; ATTEND Emergency Medicine
PROC: 5A1D60Z (ICD-10-PCS; principal; 2017-06-29)
DX: I47.1 Supraventricular tachycardia (principal); I50.22 Chronic systolic (congestive) heart failure; I13.2 Hypertensive heart and chronic kidney disease with heart failure and with stage 5 chronic kidney disease, or end stage renal disease; N18.6 End stage renal disease; I95.9 Hypotension, unspecified; R34 Anuria and oliguria; R56.9 Unspecified convulsions; J44.1 Chronic obstructive pulmonary disease with (acute) exacerbation; E87.5 Hyperkalemia; D63.1 Anemia in chronic kidney disease; E83.39 Other disorders of phosphorus metabolism; I77.6 Arteritis, unspecified; R76.11 Nonspecific reaction to tuberculin skin test without active tuberculosis; Z59.0 Homelessness; Z79.02 Long term (current) use of antithrombotics/antiplatelets; Z79.82 Long term (current) use of aspirin; Z79.899 Other long term (current) drug therapy; Z86.718 Personal history of other venous thrombosis and embolism; Z87.01 Personal history of pneumonia (recurrent); Z87.891 Personal history of nicotine dependence; Z91.14 Patient's other noncompliance with medication regimen; Z99.2 Dependence on renal dialysis; F10.10 Alcohol abuse, uncomplicated; F32.9 Major depressive disorder, single episode, unspecified; F41.9 Anxiety disorder, unspecified; K64.9 Unspecified hemorrhoids; M19.90 Unspecified osteoarthritis, unspecified site; R00.2 Palpitations; R30.0 Dysuria

== ENCOUNTER 2017-07-05 14:51 | Observation (INO) | payer SELFPAY ==
[2017-07-05 14:52] VITALS: BMI 21.3
[2017-07-05 16:19] LABS: BASO % 0.6 % (0.0-2.0); EOS # 0.1 K/uL (0.0-0.7); EOS % 1.7 % (0.0-4.0); HEMATOCRIT 22.4 % (35.0-51.0); LYMPH # 1.9 K/uL (1.0-4.3); LYMPH % 24.7 % (20.0-40.0); MEAN CORPUSCULAR HEMOGLOBIN 33.2 pg (27.0-31.0); MEAN CORPUSCULAR HGB CONC 32.8 g/dL (33.0-37.0); MEAN PLATELET VOLUME 7.4 fl (7.2-11.7); MONO # 0.8 K/uL (0.0-0.8); MONO % 10.8 % (0.0-10.0); NEUT # 4.8 K/uL (1.8-7.0); NEUT % 62.2 % (50.0-75.0); RED CELL DISTRIBUTION WIDTH 16.8 % (11.5-14.5); WHITE BLOOD COUNT 7.7 K/uL (4.8-10.8)
--- NOTE | 2017-07-05 16:22 | ED PDOC ---
HPI: General Adult Time Seen by Provider: 07/05/17 15:00 Chief Complaint (Nursing): Medical Clearance Chief Complaint (Provider): Medical Clearance History Per: Patient History/Exam Limitations: no limitations Onset/Duration Of Symptoms: Mins (prior to arrival) Additional Complaint(s): Иван Merritt is a 67 year old male with previous medical history of congestive heart failure and hypertension, who presents to the emergency department for medical clearance status post abnormal labs found by PCP which showed finding of anemia prior to arrival. Patient also noted some dizziness recently but denied vomiting, dark stool, fever or chills. PMD: Past Medical History Reviewed: Historical Data, Nursing Documentation, Vital Signs Vital Signs: Last Vital Signs Temp 98.1 F 07/05/17 21:30 Pulse 83 07/05/17 22:10 Resp 18 07/05/17 22:10 BP 153/84 H 07/05/17 21:30 Pulse Ox 96 07/05/17 21:30 - Medical History PMH: Anemia, Anxiety, Arthritis, CHF, COPD, Depression, Deep Vein Thrombosis ( RUE), HTN, Pneumonia, End Stage Renal Disease, Chronic Kidney Disease, Seizures Denies: HIV - Surgical History Surgical History: No Surg Hx Denies: Coronary Stent - Family History Family History: States: Unknown Family Hx - Social History Current smoker - smoking cessation education provided: No Alcohol: Occasional Drugs: Denies - Immunization History Hx Tetanus Toxoid Vaccination: No Hx Influenza Vaccination: No Hx Pneumococcal Vaccination: No - Home Medications Home Medications: Ambulatory Orders Medication Instructions Recorded Aspirin [Ecotrin] 81 mg PO DAILY #30 07/03/17 Calcium Acetate [Phoslo] 1,334 mg PO WM #90 07/03/17 Carvedilol [Coreg] 25 mg PO Q12 #60 tab 07/03/17 Citalopram Hydrobromide [Celexa] 20 mg PO DAILY #30 07/03/17 Clopidogrel [Plavix] 75 mg PO DAILY #30 07/03/17 Fluticasone/Salmeterol 500/50 1 puff IH Q12 #1 puff 07/03/17 [Advair Diskus 500/50] hydrALAZINE [Apresoline] 50 mg PO Q8 #90 tab 07/03/17 - Allergies Allergies/Adverse Reactions: Allergies Allergy/AdvReac Type Severity Reaction Status Date / Time sulfamethoxazole Allergy RASH Verified 03/06/17 17:55 [From ] trimethoprim [From ] Allergy RASH Verified 03/06/17 17:55 Review of Systems ROS Statement: Except As Marked, All Systems Reviewed And Found Negative Constitutional: Negative for: Fever, Chills Gastrointestinal: Negative for: Vomiting, Melena Neurological: Positive for: Dizziness Physical Exam - Reviewed Nursing Documentation Reviewed: Yes Vital Signs Reviewed: Yes - Physical Exam Appears: Positive for: Well, Non-toxic, No Acute Distress Head Exam: Positive for: ATRAUMATIC, NORMAL INSPECTION, NORMOCEPHALIC Skin: Positive for: Normal Color, Warm, Dry. Negative for: Pallor Cardiovascular/Chest: Positive for: Regular Rate, Rhythm, Other (Shiley central venous catheter in place). Negative for: Chest Non Tender Respiratory: Positive for: Normal Breath Sounds. Negative for: Crackles, Rales , Rhonchi, Wheezing, Respiratory Distress Gastrointestinal/Abdominal: Positive for: Normal Exam, Bowel Sounds, Soft. 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 --Will admit patient to hospital. --2 units of RBC ordered for transfusion and pt consented for transfusion. Scribe Attestation: Documented by Estrellita Rodriguez, acting as a scribe for Ana Toussaint MD. Provider Scribe Attestation: All medical record entries made by the Scribe were at my direction and personally dictated by me. I have reviewed the chart and agree that the record accurately reflects my personal performance of the history, physical exam, medical decision making, and the department course for this patient. I have also personally directed, reviewed, and agree with the discharge instructions and disposition. Disposition - Clinical Impression Clinical Impression: Symptomatic anemia - Patient ED Disposition Is Patient to be Admitted: No - Disposition Disposition Time: 17:00 Condition: STABLE
[2017-07-05 16:31] LABS: ALB/GLOB RATIO 1.2 (1.0-2.1); BILIRUBIN,TOTAL 0.5 mg/dl (0.2-1.3); CALCIUM 8.3 mg/dL (8.4-10.2); TOTAL PROTEIN 7.2 G/DL (6.3-8.2)
--- NOTE | 2017-07-05 18:07 | CP.PCM.HP ---
History of Present Illness - History of Present Illness History of Present Illness: CC: sent by dialysis center for low hgb 67 y/o M with multiple comorbidities including ESRD, on HD:T,,sat; well known to service admitted due abormal labs: low Hgb. Patient states he was called from his dialysis center due to low hemoglobin and sent to ED to be evaluated. Patient states going to [facility] today, after the phone call and was told by someone to go to the ED as well. No record of clinic visit today. Currently denies dizziness, chest pain, SOB, hematemesis, hematochezia, melena, hematuria, focal weakness. States being compliant with home meds and his HD treatments as directed. PMD: 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 h/o Alcohol abuse. denies drug use. Homeless, stays in [place] shelters Med List: per last DC Aspirin 81mg PO Daily Calcium Acetate 557 mg PO Citalopram 20mg PO Daily Fluticaone/Salmeterol 500/50 (Advair) Hydralazine Coareg Present on Admission - Present on Admission Any Indicators Present on Admission: No History of DVT/PE: No History of Uncontrolled Diabetes: No Past Patient History - Infectious Disease Hx of Infectious Diseases: None - Past Medical History & Family History Past Medical History?: Yes - Past Social History Alcohol: Occasional Drugs: Denies - CARDIAC Hx Congestive Heart Failure: Yes Hx Hypertension: Yes - PULMONARY Hx Chronic Obstructive Pulmonary Disease (COPD): Yes Hx Pneumonia: Yes - NEUROLOGICAL Hx Seizures: Yes - HEENT Hx HEENT Problems: No - RENAL Hx Chronic Kidney Disease: Yes - ENDOCRINE/METABOLIC Hx Endocrine Disorders: No - HEMATOLOGICAL/ONCOLOGICAL Hx Anemia: Yes Hx Human Immunodeficiency Virus (HIV): No - INTEGUMENTARY Hx Dermatological Problems: No - MUSCULOSKELETAL/RHEUMATOLOGICAL Hx Arthritis: Yes - GASTROINTESTINAL Hx Gastrointestinal Disorders: Yes Hx Hemorrhoids: Yes - GENITOURINARY/GYNECOLOGICAL Hx Genitourinary Disorders: No - PSYCHIATRIC Hx Anxiety: Yes Hx Depression: Yes - SURGICAL HISTORY Hx Coronary Stent: No - ANESTHESIA Hx Anesthesia: Yes Hx Anesthesia Reactions: No Meds Allergies/Adverse Reactions: Allergies Allergy/AdvReac Type Severity Reaction Status Date / Time sulfamethoxazole Allergy RASH Verified 03/06/17 17:55 [From ] trimethoprim [From ] Allergy RASH Verified 03/06/17 17:55 Physical Exam - Constitutional Appears: Non-toxic, No Acute Distress, Unkempt - Head Exam Head Exam: ATRAUMATIC - Eye Exam Eye Exam: EOMI Pupil Exam: PERRL - ENT Exam ENT Exam: Mucous Membranes Moist - Neck Exam Neck exam: Positive for: Full Rom - Respiratory Exam Respiratory Exam: Clear to Auscultation Bilateral - Cardiovascular Exam Cardiovascular Exam: +S1, +S2 Additional comments: right sided chemoport, functioning well - GI/Abdominal Exam GI & Abdominal Exam: Normal Bowel Sounds, Soft. absent: Tenderness - Extremities Exam Additional comments: right arm left arm AVF - Neurological Exam Neurological exam: Alert, Oriented x3 - Psychiatric Exam Psychiatric exam: Normal Affect, Normal Mood - Skin Skin Exam: Dry, Normal Color, Warm Results - Vital Signs Recent Vital Signs: Last Vital Signs Temp 98.7 F 07/05/17 15:01 Pulse 70 07/05/17 15:01 Resp 18 07/05/17 15:01 BP 114/61 07/05/17 15:01 Pulse Ox 99 07/05/17 18:00 - Labs Result Diagrams: 07/05/17 15:58 07/05/17 15:58 Labs: Laboratory Results - last 24 hr 07/05/17 07/05/17 07/05/17 15:58 15:58 15:58 WBC 7.7 RBC 2.22 L Hgb 7.4 L Hct 22.4 L MCV 101.0 H MCH 33.2 H MCHC 32.8 L RDW 16.8 H Plt Count 306 MPV 7.4 Neut % (Auto) 62.2 Lymph % (Auto) 24.7 [place] % (Auto) 10.8 H Eos % (Auto) 1.7 Baso % (Auto) 0.6 Neut # 4.8 Lymph # 1.9 [place] # 0.8 Eos # 0.1 Baso # 0.0 Sodium 138 Potassium 5.0 Chloride 96 L Carbon Dioxide 30 Anion Gap 17 BUN 39 H Creatinine 5.5 H Est GFR ( Amer) 13 Est GFR (Non-Af Amer) 10 Random Glucose 81 Calcium 8.3 L Total Bilirubin 0.5 AST 32 ALT 24 Alkaline Phosphatase 66 Total Protein 7.2 Albumin 3.9 Globulin 3.3 Albumin/Globulin Ratio 1.2 Blood Type A POSITIVE Antibody Screen Negative BBK History Checked Patient has bt Assessment & Plan - Assessment and Plan (Free Text) Plan: 67 y/o M with multiple comorbidities including ESRD, on HD:,,mon; well known to service admitted due abormal labs: low Hgb, transfused 1 unit PRBC in ER Anemia Likely anemia of chronic disease patient clinically asymptomatic, no active bleeding found at present time CBC in ED: Hgb 7.4 Hct 22 Vital signs stable 1 unit PRBC ordered in ED, await transfusion admit to telemetry/obs cbc in AM End stage chronic kidney disease on HD //MON. Nephro: Dr Sandoval COPD on Advair Hypertension Controlled with Coreg 25mg BID/Hydralazine 50mg PO TID. ASA/Plavix DVT Ppx Ambulation, SCDs Diet HH diet
[2017-07-06] MEDS: Fluticasone-Salmeterol 500-50mcg Diskus IH SCH ×2 (00:56→08:42)
[2017-07-06 07:02] LABS: BASO # 0.1 K/uL (0.0-0.2); BASO % 0.6 % (0.0-2.0); EOS # 0.2 K/uL (0.0-0.7); EOS % 2.5 % (0.0-4.0); HEMATOCRIT 26.1 % (35.0-51.0); LYMPH # 1.8 K/uL (1.0-4.3); LYMPH % 19.5 % (20.0-40.0); MEAN CELL VOLUME 94.9 fl (80.0-94.0); MEAN CORPUSCULAR HEMOGLOBIN 32.7 pg (27.0-31.0); MEAN CORPUSCULAR HGB CONC 34.5 g/dL (33.0-37.0); MEAN PLATELET VOLUME 6.8 fl (7.2-11.7); MONO # 0.9 K/uL (0.0-0.8); MONO % 10.1 % (0.0-10.0); NEUT # 6.2 K/uL (1.8-7.0); NEUT % 67.3 % (50.0-75.0); RED CELL DISTRIBUTION WIDTH 19.1 % (11.5-14.5); WHITE BLOOD COUNT 9.2 K/uL (4.8-10.8)
[2017-07-06 07:15] LABS: ALB/GLOB RATIO 1.2 (1.0-2.1); BILIRUBIN,TOTAL 0.6 mg/dl (0.2-1.3); CALCIUM 8.1 mg/dL (8.4-10.2); POTASSIUM 4.9 MMOL/L (3.6-5.0)
[2017-07-06 08:13] VITALS: RESP 18; O2SAT 95
--- NOTE | 2017-07-06 11:28 | CP.PCM.CON ---
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 Although he continued to receive dialysis Past Patient History - Infectious Disease Hx of Infectious Diseases: None - Past Medical History & Family History Past Medical History?: Yes - Past Social History Alcohol: Occasional Drugs: Denies - CARDIAC Hx Congestive Heart Failure: Yes Hx Hypertension: Yes - PULMONARY Hx Chronic Obstructive Pulmonary Disease (COPD): Yes Hx Pneumonia: Yes - NEUROLOGICAL Hx Seizures: Yes - HEENT Hx HEENT Problems: No - RENAL Hx Chronic Kidney Disease: Yes - ENDOCRINE/METABOLIC Hx Endocrine Disorders: No - HEMATOLOGICAL/ONCOLOGICAL Hx Anemia: Yes Hx Human Immunodeficiency Virus (HIV): No - INTEGUMENTARY Hx Dermatological Problems: No - MUSCULOSKELETAL/RHEUMATOLOGICAL Hx Arthritis: Yes - GASTROINTESTINAL Hx Gastrointestinal Disorders: Yes Hx Hemorrhoids: Yes - GENITOURINARY/GYNECOLOGICAL Hx Genitourinary Disorders: No - PSYCHIATRIC Hx Anxiety: Yes Hx Depression: Yes - SURGICAL HISTORY Hx Coronary Stent: No - ANESTHESIA Hx Anesthesia: Yes Hx Anesthesia Reactions: No Hx Malignant Hyperthermia: No Has any member of the family had a problem w/ anesthesia?: No Meds Allergies/Adverse Reactions: Allergies Allergy/AdvReac Type Severity Reaction Status Date / Time sulfamethoxazole Allergy RASH Verified 03/06/17 17:55 [From ] trimethoprim [From ] Allergy RASH Verified 03/06/17 17:55 - Medications Medications: Current Medications Aspirin (Ecotrin) 81 mg PO DAILY [facility] Last Admin: 07/06/17 08:42 Dose: 81 mg Calcium Acetate (Phoslo) 1,334 mg PO WM [facility] Last Admin: 07/06/17 08:43 Dose: 1,334 mg Carvedilol (Coreg) 25 mg PO Q12 [facility] Last Admin: 07/06/17 08:43 Dose: 25 mg Citalopram Hydrobromide (Celexa) 20 mg PO DAILY [facility] Last Admin: 07/06/17 08:42 Dose: 20 mg Clopidogrel Bisulfate (Plavix) 75 mg PO DAILY [facility] Last Admin: 07/06/17 08:43 Dose: 75 mg Hydralazine HCl (Apresoline) 50 mg PO Q8 [facility] Last Admin: 07/06/17 08:44 Dose: 50 mg Fluticasone/Salmeterol (Advair Diskus 500/50) 1 puff IH Q12 [facility] Last Admin: 07/06/17 08:42 Dose: 1 puff Physical Exam - Constitutional Appears: No Acute Distress - ENT Exam ENT Exam: Mucous Membranes Moist - Respiratory Exam Respiratory Exam: absent: Chest Wall Tenderness - Cardiovascular Exam Cardiovascular Exam: absent: Rubs - GI/Abdominal Exam GI & Abdominal Exam: Normal Bowel Sounds Results - Vital Signs Recent Vital Signs: Last Vital Signs Temp 98.4 F 07/06/17 08:13 Pulse 70 07/06/17 08:44 Resp 18 07/06/17 08:13 BP 160/76 H 07/06/17 08:44 Pulse Ox 95 07/06/17 08:13 - Labs Result Diagrams: 07/06/17 05:00 07/06/17 05:00 Labs: Laboratory Results - last 24 hr 07/06/17 07/06/17 05:00 05:00 WBC 9.2 RBC 2.75 L Hgb 9.0 L Hct 26.1 L MCV 94.9 H D MCH 32.7 H MCHC 34.5 RDW 19.1 H Plt Count 307 MPV 6.8 L Neut % (Auto) 67.3 Lymph % (Auto) 19.5 L [place] % (Auto) 10.1 H Eos % (Auto) 2.5 Baso % (Auto) 0.6 Neut # 6.2 Lymph # 1.8 [place] # 0.9 H Eos # 0.2 Baso # 0.1 Sodium 137 Potassium 4.9 Chloride 98 Carbon Dioxide 25 Anion Gap 18 BUN 48 H Creatinine 6.6 H Est GFR ( Amer) 10 Est GFR (Non-Af Amer) 8 Random Glucose 93 Calcium 8.1 L Total Bilirubin 0.6 AST 23 ALT 20 L Alkaline Phosphatase 68 Total Protein 7.0 Albumin 3.8 Globulin 3.2 Albumin/Globulin Ratio 1.2 Assessment & Plan (1) Chronic kidney disease requiring chronic dialysis Assessment and Plan: End stage renal disease seen on hemodialysis now order was given consent was taken Blood transfusion was given overnight for the anemia Patient is being discharged post hemodialysis was follow-up as outpatient Status: Acute
[2017-07-06 12:34] VITALS: BP 124/74; PULSE 69; TEMP 98.7
--- NOTE | 2017-07-06 15:03 | CP.PCM.DIS ---
Provider - Provider Date of Admission: 07/05/17 17:17 Attending physician: Aaliyah Knott MD Consults: Nephro: Dr Sandoval. Time Spent in preparation of Discharge (in minutes): 30 Diagnosis - Discharge Diagnosis (1) Anemia Status: Acute Comment: Improving (2) ESRD (end stage renal disease) on dialysis Status: Chronic Comment: HD today. Nephrology consult appreciated. Hospital Course - Lab Results Lab Results: Most Recent Lab Values WBC 9.2 K/uL (4.8-10.8) 07/06/17 05:00 RBC 2.75 Mil/uL (4.40-5.90) L 07/06/17 05:00 Hgb 9.0 g/dL (12.0-18.0) L 07/06/17 05:00 Hct 26.1 % (35.0-51.0) L 07/06/17 05:00 MCV 94.9 fl (80.0-94.0) H D 07/06/17 05:00 MCH 32.7 pg (27.0-31.0) H 07/06/17 05:00 MCHC 34.5 g/dL (33.0-37.0) 07/06/17 05:00 RDW 19.1 % (11.5-14.5) H 07/06/17 05:00 Plt Count 307 K/uL (130-400) 07/06/17 05:00 MPV 6.8 fl (7.2-11.7) L 07/06/17 05:00 Neut % (Auto) 67.3 % (50.0-75.0) 07/06/17 05:00 Lymph % (Auto) 19.5 % (20.0-40.0) L 07/06/17 05:00 [place] % (Auto) 10.1 % (0.0-10.0) H 07/06/17 05:00 Eos % (Auto) 2.5 % (0.0-4.0) 07/06/17 05:00 Baso % (Auto) 0.6 % (0.0-2.0) 07/06/17 05:00 Neut # 6.2 K/uL (1.8-7.0) 07/06/17 05:00 Lymph # 1.8 K/uL (1.0-4.3) 07/06/17 05:00 [place] # 0.9 K/uL (0.0-0.8) H 07/06/17 05:00 Eos # 0.2 K/uL (0.0-0.7) 07/06/17 05:00 Baso # 0.1 K/uL (0.0-0.2) 07/06/17 05:00 Sodium 137 mmol/l (132-148) 07/06/17 05:00 Potassium 4.9 MMOL/L (3.6-5.0) 07/06/17 05:00 Chloride 98 mmol/L (98-107) 07/06/17 05:00 Carbon Dioxide 25 mmol/L (22-30) 07/06/17 05:00 Anion Gap 18 (10-20) 07/06/17 05:00 BUN 48 mg/dl (9-20) H 07/06/17 05:00 Creatinine 6.6 mg/dL (0.8-1.5) H 07/06/17 05:00 Est GFR ( Amer) 10 07/06/17 05:00 Est GFR (Non-Af Amer) 8 07/06/17 05:00 Random Glucose 93 mg/dL (75-110) 07/06/17 05:00 Calcium 8.1 mg/dL (8.4-10.2) L 07/06/17 05:00 Total Bilirubin 0.6 mg/dl (0.2-1.3) 07/06/17 05:00 AST 23 U/L (17-59) 07/06/17 05:00 ALT 20 U/L (21-72) L 07/06/17 05:00 Alkaline Phosphatase 68 U/L (38-126) 07/06/17 05:00 Total Protein 7.0 G/DL (6.3-8.2) 07/06/17 05:00 Albumin 3.8 g/dL (3.5-5.0) 07/06/17 05:00 Globulin 3.2 gm/dL (2.2-3.9) 07/06/17 05:00 Albumin/Globulin Ratio 1.2 (1.0-2.1) 07/06/17 05:00 Blood Type A POSITIVE 08/30/17 15:58 Antibody Screen Negative 07/05/17 15:58 Crossmatch See Detail 07/05/17 15:58 BBK History Checked Patient has bt 07/05/17 15:58 - Hospital Course Hospital Course: 67 yo M patient w/ PMH of ESRD on HD, CHF, HTN, DVT, COPD, seizure and anemia that was admitted yesterday with low Hgb level 7.4. Patient received a blood transfusion last night and his normal scheduled HD today. Nephrology followed the patient today w/ recommendations to follow up as outpatient. Hgb this morning 9.0. Patient was discharge home safely with clearance and follow up instructions. Discharge Exam - Head Exam Head Exam: ATRAUMATIC, NORMAL INSPECTION, NORMOCEPHALIC - Eye Exam Eye Exam: EOMI, Normal appearance, PERRL - Respiratory Exam Respiratory Exam: Clear to PA & Lateral. absent: Rales, Rhonchi, Wheezes - Cardiovascular Exam Cardiovascular Exam: RRR, +S1, +S2 - GI/Abdominal Exam GI & Abdominal Exam: Normal Bowel Sounds, Soft. absent: Tenderness - Neurological Exam Neurological exam: Alert, CN II-XII Intact, Oriented x3 Discharge Plan - Follow Up Plan Condition: STABLE Disposition: HOME/ ROUTINE
--- NOTE | 2017-07-07 00:08 | CARD ---
APPROVED REPORT EKG Measurement Heart [id number] CO 160P60 [id number] <Conclusion> Normal sinus rhythm Prolonged QT Abnormal ECG
== END 2017-07-06 14:43 | disposition home or self-care (01) ==
LOC: H.ER 14:51 → H.ERHOLD 17:17 → H.TEL 21:19
PROVIDERS: ADMIT Family Medicine Geriatric Medicine; ATTEND Family Medicine Geriatric Medicine
DX: D64.9 Anemia, unspecified (principal); I13.2 Hypertensive heart and chronic kidney disease with heart failure and with stage 5 chronic kidney disease, or end stage renal disease; I50.22 Chronic systolic (congestive) heart failure; N18.6 End stage renal disease; J44.9 Chronic obstructive pulmonary disease, unspecified; Z59.0 Homelessness; Z99.2 Dependence on renal dialysis; Z86.718 Personal history of other venous thrombosis and embolism; Z88.2 Allergy status to sulfonamides; F41.9 Anxiety disorder, unspecified; M19.90 Unspecified osteoarthritis, unspecified site; F32.9 Major depressive disorder, single episode, unspecified; N05.7 Unspecified nephritic syndrome with diffuse crescentic glomerulonephritis; I77.89 Other specified disorders of arteries and arterioles
CPT/HCPCS: 36415; 36430; 80053; 85025; 86850; 86900; 86920; 90935; 93005; 99283; G0378; P9051

== ENCOUNTER 2017-07-15 10:13 | Emergency (ER) | payer SELFPAY ==
--- NOTE | 2017-07-15 10:36 | ED PDOC ---
HPI: General Adult Time Seen by Provider: 07/15/17 10:20 Chief Complaint (Provider): Medical evaluation for anemia History Per: Patient History/Exam Limitations: no limitations Onset/Duration Of Symptoms: Days (x 1) Current Symptoms Are (Timing): Still Present Additional Complaint(s): Иван is a 67 y/o male with a past medical history of end stage renal disease, who was referred to the ED from dialysis due to anemia. Patient did not have dialysis today, last dialysis was . Patient denies dizziness, weakness, vomiting, and bloody stools. PMD: Unknown Past Medical History Reviewed: Historical Data, Nursing Documentation, Vital Signs - Medical History PMH: Anemia, Anxiety, Arthritis, CHF, COPD, Depression, Deep Vein Thrombosis ( RUE), HTN, Pneumonia, End Stage Renal Disease, Chronic Kidney Disease, Seizures Denies: HIV - Surgical History Surgical History: Denies: Coronary Stent - Family History Family History: States: Unknown Family Hx - Immunization History Hx Tetanus Toxoid Vaccination: No Hx Influenza Vaccination: No Hx Pneumococcal Vaccination: No - Home Medications Home Medications: Ambulatory Orders Medication Instructions Recorded Aspirin [Ecotrin] 81 mg PO DAILY #30 07/03/17 Calcium Acetate [Phoslo] 1,334 mg PO WM #90 07/03/17 Carvedilol [Coreg] 25 mg PO Q12 #60 tab 07/03/17 Citalopram Hydrobromide [Celexa] 20 mg PO DAILY #30 07/03/17 Clopidogrel [Plavix] 75 mg PO DAILY #30 07/03/17 Fluticasone/Salmeterol 500/50 1 puff IH Q12 #1 puff 07/03/17 [Advair Diskus 500/50] hydrALAZINE [Apresoline] 50 mg PO Q8 #90 tab 07/03/17 - Allergies Allergies/Adverse Reactions: Allergies Allergy/AdvReac Type Severity Reaction Status Date / Time sulfamethoxazole Allergy RASH Verified 03/06/17 17:55 [From ] trimethoprim [From ] Allergy RASH Verified 03/06/17 17:55 Review of Systems ROS Statement: Except As Marked, All Systems Reviewed And Found Negative Gastrointestinal: Negative for: Vomiting, Hematochezia Neurological: Negative for: Weakness, Dizziness Physical Exam - Reviewed Nursing Documentation Reviewed: Yes Vital Signs Reviewed: Yes - Physical Exam Appears: Positive for: Well, Non-toxic, No Acute Distress Head Exam: Positive for: ATRAUMATIC, NORMAL INSPECTION, NORMOCEPHALIC Skin: Positive for: Normal Color, Warm, Dry Eye Exam: Positive for: EOMI, Normal appearance, PERRL Neck: Positive for: Normal, Painless ROM, Supple Cardiovascular/Chest: Positive for: Regular Rate, Rhythm. Negative for: Murmur Respiratory: Positive for: Normal Breath Sounds. Negative for: Accessory Muscle Use, Respiratory Distress Gastrointestinal/Abdominal: Positive for: Normal Exam, Soft. Negative for: Tenderness Extremity: Positive for: Normal ROM. Negative for: Pedal Edema, Deformity Neurologic/Psych: Positive for: Alert, Oriented - Laboratory Results Result Diagrams: 07/15/17 10:50 07/15/17 10:45 Medical Decision Making Medical Decision Making: Time: 10:25 Initial Plan: --CBC w/ differential --CMP --Pending reevaluation Scribe Attestation: Documented by Minda Friedman, acting as a scribe for Eduardo Sweeney MD Provider Scribe Attestation: All medical record entries made by the Scribe were at my direction and personally dictated by me. I have reviewed the chart and agree that the record accurately reflects my personal performance of the history, physical exam, medical decision making, and the department course for this patient. I have also personally directed, reviewed, and agree with the discharge instructions and disposition. Disposition - Clinical Impression Clinical Impression: End stage chronic kidney disease - Patient ED Disposition Is Patient to be Admitted: No Counseled Patient/Family Regarding: Diagnosis, Need For Followup - Disposition Referrals: [facility] [Outside] Disposition: Routine/Home Disposition Time: 11:32 Condition: FAIR Instructions: End Stage Kidney Disease (ED) Print Language: TAMAZIGHT
[2017-07-15 11:02] LABS: BASO # 0.1 K/uL (0.0-0.2); BASO % 1.3 % (0.0-2.0); EOS # 0.3 K/uL (0.0-0.7); EOS % 3.4 % (0.0-4.0); HEMATOCRIT 24.8 % (35.0-51.0); LYMPH # 2.1 K/uL (1.0-4.3); MEAN CELL VOLUME 97.6 fl (80.0-94.0); MEAN CORPUSCULAR HEMOGLOBIN 31.8 pg (27.0-31.0); MEAN CORPUSCULAR HGB CONC 32.6 g/dL (33.0-37.0); MEAN PLATELET VOLUME 7.2 fl (7.2-11.7); MONO # 0.9 K/uL (0.0-0.8); MONO % 11.9 % (0.0-10.0); NEUT # 4.1 K/uL (1.8-7.0); NEUT % 55.4 % (50.0-75.0); RED CELL DISTRIBUTION WIDTH 17.5 % (11.5-14.5); WHITE BLOOD COUNT 7.4 K/uL (4.8-10.8)
[2017-07-15 11:11] LABS: ALB/GLOB RATIO 1.2 (1.0-2.1); BILIRUBIN,TOTAL 0.4 mg/dl (0.2-1.3); CALCIUM 8.2 mg/dL (8.4-10.2); POTASSIUM 5.2 MMOL/L (3.6-5.0); TOTAL PROTEIN 7.1 G/DL (6.3-8.2)
[2017-07-15 11:39] VITALS: BP 150/85; PULSE 117; RESP 18; TEMP 98; O2SAT 97
== END 2017-07-15 11:35 | disposition home or self-care (01) ==
LOC: H.ER 10:13
DX: N18.6 End stage renal disease (principal); F32.9 Major depressive disorder, single episode, unspecified; F41.9 Anxiety disorder, unspecified; Z79.82 Long term (current) use of aspirin; Z86.718 Personal history of other venous thrombosis and embolism; Z99.2 Dependence on renal dialysis

== ENCOUNTER 2017-07-17 15:30 | Emergency (ER) | payer SELFPAY ==
[2017-07-17 16:09] VITALS: BP 145/92; PULSE 133; RESP 18; TEMP 97.9; O2SAT 99
--- NOTE | 2017-07-17 16:27 | ED PDOC ---
HPI: General Adult Time Seen by Provider: 07/17/17 16:10 Chief Complaint (Nursing): Abnormal Labs Chief Complaint (Provider): Abnormal Labs History Per: Patient History/Exam Limitations: no limitations Onset/Duration Of Symptoms: Days (x1) Current Symptoms Are (Timing): Still Present Recently: Seen In ED Additional Complaint(s): Иван is a 67 y/o male with a past medical history of end stage renal disease, who was sent to the ED due to abnormal labs. States he was called from dialysis center saying his hemoglobin was low and referred to ED. Patient with mild dizziness since last night. Denies any associated syncope, shortness of breath, chest pain, or fever. Also denies rectal bleeding and melena. Patient was seen here Monday for the same complaint. He receives dialysis Monday, , and Monday. Last dialysis was last . PMD: Unknown Past Medical History Reviewed: Historical Data, Nursing Documentation, Vital Signs Vital Signs: Last Vital Signs Temp 97.9 F 07/17/17 16:07 Pulse 133 H 07/17/17 16:07 Resp 18 07/17/17 16:07 BP 145/92 H 07/17/17 16:07 Pulse Ox 99 07/17/17 18:01 - Medical History PMH: Anemia, Anxiety, Arthritis, CHF, COPD, Depression, Deep Vein Thrombosis ( RUE), HTN, Pneumonia, End Stage Renal Disease, Chronic Kidney Disease, Seizures Denies: HIV - Surgical History Surgical History: Denies: Coronary Stent - Family History Family History: States: Unknown Family Hx - Social History Ex-Smoker (has not smoked in the last 12 months): Yes Alcohol: Occasional Drugs: Denies - Immunization History Hx Tetanus Toxoid Vaccination: No Hx Influenza Vaccination: No Hx Pneumococcal Vaccination: No - Home Medications Home Medications: Ambulatory Orders Medication Instructions Recorded Aspirin [Ecotrin] 81 mg PO DAILY #30 07/03/17 Calcium Acetate [Phoslo] 1,334 mg PO WM #90 07/03/17 Carvedilol [Coreg] 25 mg PO Q12 #60 tab 07/03/17 Citalopram Hydrobromide [Celexa] 20 mg PO DAILY #30 07/03/17 Clopidogrel [Plavix] 75 mg PO DAILY #30 07/03/17 Fluticasone/Salmeterol 500/50 1 puff IH Q12 #1 puff 07/03/17 [Advair Diskus 500/50] hydrALAZINE [Apresoline] 50 mg PO Q8 #90 tab 07/03/17 - Allergies Allergies/Adverse Reactions: Allergies Allergy/AdvReac Type Severity Reaction Status Date / Time sulfamethoxazole Allergy RASH Verified 03/06/17 17:55 [From ] trimethoprim [From ] Allergy RASH Verified 03/06/17 17:55 Review of Systems ROS Statement: Except As Marked, All Systems Reviewed And Found Negative Constitutional: Negative for: Fever, Chills Cardiovascular: Negative for: Chest Pain Respiratory: Negative for: Shortness of Breath Gastrointestinal: Negative for: Melena, Other (Rectal bleeding) Neurological: Positive for: Dizziness. Negative for: Other (syncope) Physical Exam - Reviewed Nursing Documentation Reviewed: Yes Vital Signs Reviewed: Yes - Physical Exam Appears: Positive for: Non-toxic, No Acute Distress Head Exam: Positive for: ATRAUMATIC, NORMAL INSPECTION, NORMOCEPHALIC Skin: Positive for: Warm, Dry, Pallor Eye Exam: Positive for: EOMI, Normal appearance, PERRL Neck: Positive for: Normal, Painless ROM Cardiovascular/Chest: Positive for: Regular Rate, Rhythm, Other (Port noted at his right chest). Negative for: Murmur Respiratory: Positive for: Normal Breath Sounds. Negative for: Accessory Muscle Use, Respiratory Distress Gastrointestinal/Abdominal: Positive for: Normal Exam, Bowel Sounds, Soft. Negative for: Tenderness Back: Positive for: Normal Inspection Extremity: Positive for: Normal ROM. Negative for: Calf Tenderness, Deformity Neurologic/Psych: Positive for: Alert, Oriented - Laboratory Results Result Diagrams: 07/17/17 16:30 07/17/17 17:00 - ECG O2 Sat by Pulse Oximetry: 99 (RA) Pulse Ox Interpretation: Normal Medical Decision Making Medical Decision Making: Time: 16:11 Initial Plan: --blood type/screen --CBC w/ differential --CMP --Pending reevaluation Hgb 8.5 and potassium normal. Due for HD tomorrow. No indication for hospitalization at current time. Scribe Attestation: Documented by Minda Friedman, acting as a scribe for Ravi Adam III, DO. Provider Scribe Attestation: All medical record entries made by the Scribe were at my direction and personally dictated by me. I have reviewed the chart and agree that the record accurately reflects my personal performance of the history, physical exam, medical decision making, and the department course for this patient. I have also personally directed, reviewed, and agree with the discharge instructions and disposition. Disposition - Clinical Impression Clinical Impression: Anemia - Patient ED Disposition Is Patient to be Admitted: No Counseled Patient/Family Regarding: Studies Performed, Diagnosis, Need For Followup - Disposition Disposition: Routine/Home Disposition Time: 18:06 Condition: STABLE Additional Instructions: Followup for dialysis tomorrow as directed. Instructions: Hemodialysis (ED), Anemia (ED), End Stage Kidney Disease (ED) Forms: [employer] (Hebrew)
[2017-07-17 16:49] LABS: BASO # 0.1 K/uL (0.0-0.2); BASO % 1.1 % (0.0-2.0); EOS # 0.2 K/uL (0.0-0.7); EOS % 2.8 % (0.0-4.0); HEMATOCRIT 26.1 % (35.0-51.0); LYMPH # 2.5 K/uL (1.0-4.3); LYMPH % 29.6 % (20.0-40.0); MEAN CELL VOLUME 97.7 fl (80.0-94.0); MEAN CORPUSCULAR HEMOGLOBIN 31.9 pg (27.0-31.0); MEAN CORPUSCULAR HGB CONC 32.7 g/dL (33.0-37.0); MEAN PLATELET VOLUME 7.2 fl (7.2-11.7); MONO % 11.6 % (0.0-10.0); NEUT # 4.6 K/uL (1.8-7.0); NEUT % 54.9 % (50.0-75.0); RED CELL DISTRIBUTION WIDTH 17.5 % (11.5-14.5); WHITE BLOOD COUNT 8.5 K/uL (4.8-10.8)
[2017-07-17 17:13] LABS: CALCIUM 8.2 mg/dL (8.4-10.2); POTASSIUM 4.7 MMOL/L (3.6-5.0)
== END 2017-07-17 18:21 | disposition home or self-care (01) ==
LOC: H.ER 15:30
DX: D64.9 Anemia, unspecified (principal); I12.0 Hypertensive chronic kidney disease with stage 5 chronic kidney disease or end stage renal disease; Z79.82 Long term (current) use of aspirin; Z86.718 Personal history of other venous thrombosis and embolism; Z99.2 Dependence on renal dialysis; F32.9 Major depressive disorder, single episode, unspecified; F41.9 Anxiety disorder, unspecified

== ENCOUNTER 2017-07-21 10:33 | Inpatient (IN) | payer SELFPAY ==
[2017-07-21] MEDS ORDERED: Albuterol-Ipratrop 3 mg / 0.5 (3 ml) UD IH STA (11:13)
[2017-07-21] MEDS ORDERED: Albuterol-Ipratrop 3 mg / 0.5 (3 ml) UD INH STA (11:13)
--- NOTE | 2017-07-21 11:18 | ED PDOC ---
HPI: General Adult Time Seen by Provider: 07/21/17 10:57 Chief Complaint (Nursing): Dizziness/Lightheaded Chief Complaint (Provider): High Heart Rate History Per: Patient Onset/Duration Of Symptoms: Days (Today) Current Symptoms Are (Timing): Still Present Additional Complaint(s): Pt. went to his doctor who inserted his dialysis port. They were going to change the port, but noted that the heart rate was high so sent him to the ED. Pt. states has mild dyspnea, ongoing for 2 months. No chest pain, weakness, headaches, dizziness, numbness, tingles, abd pain. No palpitations. Speaks full sentences. No leg pain or swelling. Gets dialysis Tues, Thurs, Sat. Past Medical History Reviewed: Nursing Documentation, Vital Signs Vital Signs: Last Vital Signs Temp 98.2 F 07/21/17 10:42 Pulse 115 H 07/21/17 11:37 Resp 19 07/21/17 11:37 BP 120/75 07/21/17 11:41 Pulse Ox 98 07/21/17 12:18 - Medical History PMH: Anemia, Anxiety, Arthritis, CHF, COPD, Depression, Deep Vein Thrombosis ( RUE), HTN, Pneumonia, End Stage Renal Disease, Chronic Kidney Disease, Seizures Denies: HIV - Surgical History Surgical History: Denies: Coronary Stent - Family History Family History: States: Unknown Family Hx - Social History Current smoker - smoking cessation education provided: No Alcohol: None Drugs: Denies - Immunization History Hx Tetanus Toxoid Vaccination: No Hx Influenza Vaccination: No Hx Pneumococcal Vaccination: No - Home Medications Home Medications: Ambulatory Orders Medication Instructions Recorded Aspirin [Ecotrin] 81 mg PO DAILY #30 07/03/17 Calcium Acetate [Phoslo] 1,334 mg PO WM #90 07/03/17 Carvedilol [Coreg] 25 mg PO Q12 #60 tab 07/03/17 Citalopram Hydrobromide [Celexa] 20 mg PO DAILY #30 07/03/17 Clopidogrel [Plavix] 75 mg PO DAILY #30 07/03/17 Fluticasone/Salmeterol 500/50 1 puff IH Q12 #1 puff 07/03/17 [Advair Diskus 500/50] hydrALAZINE [Apresoline] 50 mg PO Q8 #90 tab 07/03/17 - Allergies Allergies/Adverse Reactions: Allergies Allergy/AdvReac Type Severity Reaction Status Date / Time sulfamethoxazole Allergy RASH Verified 07/21/17 10:58 [From ] trimethoprim [From ] Allergy RASH Verified 07/21/17 10:58 Review of Systems ROS Statement: Except As Marked, All Systems Reviewed And Found Negative Respiratory: Positive for: Shortness of Breath Physical Exam - Reviewed Nursing Documentation Reviewed: Yes Vital Signs Reviewed: Yes - Physical Exam Appears: Positive for: Non-toxic, No Acute Distress Head Exam: Positive for: ATRAUMATIC, NORMAL INSPECTION, NORMOCEPHALIC Skin: Positive for: Normal Color, Warm, DRY Eye Exam: Positive for: EOMI, Normal appearance, PERRL ENT: Positive for: Normal ENT Inspection Neck: Positive for: Normal, Painless ROM, Supple Cardiovascular/Chest: Positive for: Chest Non Tender, Tachycardia. Negative for : Edema Respiratory: Positive for: Decreased Breath Sounds, Wheezing (and coarse breath sounds b/l). Negative for: Accessory Muscle Use Gastrointestinal/Abdominal: Positive for: Normal Exam, Bowel Sounds, Soft. Negative for: Tenderness Back: Positive for: Normal Inspection. Negative for: L CVA Tenderness, R CVA Tenderness Extremity: Positive for: Normal ROM. Negative for: Tenderness, Pedal Edema Neurologic/Psych: Positive for: Alert, Oriented - Laboratory Results Result Diagrams: 07/21/17 11:15 07/21/17 11:15 Interpretation Of Abn Labs: 7.9 hg similar to old; bun/cr elevation - ECG ECG: Positive for: Interpreted By Me, Viewed By Me ECG Rhythm: Positive for: Normal QRS, Sinus Tachycardia O2 Sat by Pulse Oximetry: 98 Pulse Ox Interpretation: Normal - Radiology X-Ray: Interpreted by Me, Viewed By Me X-Ray Interpretation: No Acute Disease - Progress ED Course And Treament: 1223: Stable. AAOx3. HR improving. Dr. Jackson saw pt. Wants admit for tx. Does not think it is chf at this time. Will tx for copd. Spoke with [facility] resident Serafin. Will admit. Disposition - Clinical Impression Clinical Impression: COPD exacerbation, Anemia - Patient ED Disposition Is Patient to be Admitted: Yes Counseled Patient/Family Regarding: Studies Performed, Diagnosis - Disposition Disposition Time: 12:26 Condition: FAIR - Pt Status Changed To: Hospital Disposition Of: Inpatient - Admit Certification Admit to Inpatient:: After my assessment, the patient will require hospitalization for at least two midnights. This is because of the severity of symptoms shown, intensity of services needed, and/or the medical risk in this patient being treated as an outpatient. - POA Present On Arrival: None
[2017-07-21 11:38] LABS: BASO # 0.1 K/uL (0.0-0.2); BASO % 1.1 % (0.0-2.0); EOS # 0.2 K/uL (0.0-0.7); HEMATOCRIT 24.6 % (35.0-51.0); LYMPH # 2.1 K/uL (1.0-4.3); LYMPH % 28.2 % (20.0-40.0); MEAN CELL VOLUME 97.9 fl (80.0-94.0); MEAN CORPUSCULAR HEMOGLOBIN 31.6 pg (27.0-31.0); MEAN CORPUSCULAR HGB CONC 32.3 g/dL (33.0-37.0); MEAN PLATELET VOLUME 6.7 fl (7.2-11.7); MONO # 0.7 K/uL (0.0-0.8); MONO % 10.2 % (0.0-10.0); NEUT # 4.2 K/uL (1.8-7.0); NEUT % 57.5 % (50.0-75.0); RED CELL DISTRIBUTION WIDTH 17.6 % (11.5-14.5); WHITE BLOOD COUNT 7.3 K/uL (4.8-10.8)
[2017-07-21 11:47] LABS: PARTIAL THROMBOPLASTIN TIME 29.5 Seconds (25.6-37.1)
[2017-07-21 11:57] LABS: ALB/GLOB RATIO 1.2 (1.0-2.1); ALKALINE PHOSPHATASE 62 U/L (38-126); ALT/SGPT 24 U/L (21-72); AST/SGOT 36 U/L (17-59); BILIRUBIN,TOTAL 0.4 mg/dl (0.2-1.3); BLOOD UREA NITROGEN 39 mg/dl (9-20); CALCIUM 8.2 mg/dL (8.4-10.2); CARBON DIOXIDE 32 mmol/L (22-30); CHLORIDE 96 mmol/L (98-107); GFR AFRICAN-AMERICAN 11; GLUCOSE,RANDOM 93 mg/dL (75-110); PHOSPHOROUS 4.9 mg/dl (2.5-4.5); POTASSIUM 4.5 MMOL/L (3.6-5.0); SODIUM 139 mmol/l (132-148); TOTAL PROTEIN 6.8 G/DL (6.3-8.2)
[2017-07-21 11:58] LABS: VENOUS BLOOD GAS BASE EXCESS 14.2 mmol/L (0.0-2.0); VENOUS BLOOD GAS PCO2 54 mmHg (40-60); VENOUS BLOOD PH 7.48 (7.32-7.43)
[2017-07-21] MEDS ORDERED: Albuterol-Ipratrop 3 mg / 0.5 (3 ml) UD ONE (12:54)
--- NOTE | 2017-07-21 12:55 | CARD ---
APPROVED REPORT EKG Measurement Heart [id number] NM [id number] [id number] <Conclusion> Sinus tachycardia Otherwise normal ECG
[2017-07-21] MEDS: Sodium Chloride 0.9% 250 ML IV SCH ×2 (12:57→15:47)
--- NOTE | 2017-07-21 15:26 | RAD ---
HISTORY: Sepsis Patient COMPARISON: Comparison chest 06/28/2017 FINDINGS: In situ right subclavian central line -dialysis catheter with tip in the SVC LUNGS: Suspect minor bibasilar atelectasis PLEURA: No significant pleural effusion identified, no pneumothorax apparent. CARDIOVASCULAR: Heart size unchanged. OSSEOUS STRUCTURES: Degenerative changes both shoulder girdles. VISUALIZED UPPER ABDOMEN: Normal. OTHER FINDINGS: None. IMPRESSION: Suspect minor bibasilar atelectasis.
[2017-07-21 16:52] LABS: RBC URINE 211 /hpf (0-3); URINE BILIRUBIN NEGATIVE (NEGATIVE); URINE BLOOD MODERATE (NEGATIVE); URINE COLOR AMBER (YELLOW); URINE GLUCOSE (UA) NEG (Normal); URINE KETONE NEGATIVE (NEGATIVE); URINE LEUKOCYTE ESTERASE LARGE Leu/uL (Negative); URINE PROTEIN >=500 mg/dL (NEGATIVE); URINE UROBILINOGEN 0.2-1.0 mg/dL (0.2-1.0); WBC CLUMPS MANY /hpf; WBC URINE 1887 /hpf (0-5)
--- NOTE | 2017-07-21 16:57 | CP.PCM.HP ---
History of Present Illness - History of Present Illness History of Present Illness: 67 y/o homeless M with multiple comorbidities including Stage 5 ESRD (HD T,Th,S) , who presents to ED after being sent by his Dialysis center because elevated HR. Patient reports that in the Dialysis center they were going to change the port ( right sided port for possible malfunction), but noted that the heart rate was high so sent him to the ED. Patient still c/o SOB, and non productive cough, however this is his baseline. Denies fever, chills, CP, dizziness, abdominal pain, diarrheas or recent episodes of hematuria. Patient had HD yesterday. 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 h/o Alcohol abuse. denies drug use. Homeless, stays in [place] [facility] Med List from previous admission: Aspirin 81mg PO Daily Calcium Acetate 557 mg PO Citalopram 20mg PO Daily Fluticaone/Salmeterol 500/50 (Advair) Hydralazine Coreg ED course: VS: HR: 132/min Alert, awake, oriented x 3 PE: CV: RRR, normal S1, S2, tachycardic resp: CTA, except for fine diffuse crackles of left middle/lower lobes ext: no edema labs:H/H: 7.9/24.6 EKG: showed sinus tachy, no ST-T wave changes noted CXR: suspected minor bibasilar atelectasis Present on Admission - Present on Admission Any Indicators Present on Admission: No History of DVT/PE: Yes History of Uncontrolled Diabetes: No Urinary Catheter: No Decubitus Ulcer Present: No Review of Systems - Review of Systems All systems: reviewed and no additional remarkable complaints except (as per HPI ) Past Patient History - Infectious Disease Hx of Infectious Diseases: None - Past Medical History & Family History Past Medical History?: Yes - Past Social History Alcohol: None Drugs: Denies - CARDIAC Hx Congestive Heart Failure: Yes Hx Hypertension: Yes - PULMONARY Hx Chronic Obstructive Pulmonary Disease (COPD): Yes Hx Pneumonia: Yes - NEUROLOGICAL Hx Seizures: Yes - HEENT Hx HEENT Problems: No - RENAL Hx Chronic Kidney Disease: Yes - ENDOCRINE/METABOLIC Hx Endocrine Disorders: No - HEMATOLOGICAL/ONCOLOGICAL Hx Anemia: Yes Hx Human Immunodeficiency Virus (HIV): No - INTEGUMENTARY Hx Dermatological Problems: No - MUSCULOSKELETAL/RHEUMATOLOGICAL Hx Arthritis: Yes - GASTROINTESTINAL Hx Gastrointestinal Disorders: Yes Hx Hemorrhoids: Yes - GENITOURINARY/GYNECOLOGICAL Hx Genitourinary Disorders: No - PSYCHIATRIC Hx Anxiety: Yes Hx Depression: Yes - SURGICAL HISTORY Hx Coronary Stent: No - ANESTHESIA Hx Anesthesia: Yes Hx Anesthesia Reactions: No Hx Malignant Hyperthermia: No Meds Allergies/Adverse Reactions: Allergies Allergy/AdvReac Type Severity Reaction Status Date / Time sulfamethoxazole Allergy RASH Verified 07/21/17 10:58 [From ] trimethoprim [From ] Allergy RASH Verified 07/21/17 10:58 Physical Exam - Constitutional Appears: No Acute Distress - ENT Exam ENT Exam: Mucous Membranes Moist - Respiratory Exam Respiratory Exam: NORMAL BREATHING PATTERN. absent: Rhonchi, Wheezes Additional comments: crackles in left middle/lower lobe - Cardiovascular Exam Cardiovascular Exam: Tachycardia, REGULAR RHYTHM, +S1, +S2 - GI/Abdominal Exam GI & Abdominal Exam: Normal Bowel Sounds, Soft. absent: Diminished Bowel Sounds , Distended, Guarding, Tenderness - Extremities Exam Extremities exam: Positive for: normal inspection. Negative for: calf tenderness, pedal edema - Neurological Exam Neurological exam: Alert, Oriented x3 - Skin Skin Exam: Dry, Intact, Pallor Results - Vital Signs Recent Vital Signs: Last Vital Signs Temp 98.9 F 07/21/17 13:54 Pulse 110 H 07/21/17 15:30 Resp 19 07/21/17 15:30 BP 140/70 07/21/17 15:30 Pulse Ox 98 07/21/17 15:30 - Labs Result Diagrams: 07/21/17 11:15 07/21/17 11:15 Labs: Laboratory Results - last 24 hr 07/21/17 15:30 BBK History Checked Patient has bt Assessment & Plan - Assessment and Plan (Free Text) Assessment: 67 y/o M with multiple comorbidities including ESRD, on HD:T,thurs,sat; well known to service admitted with persistent sinus tachycardia, low hemoglobin, to receive transfusion of PRBC. Plan: Anemia Likely anemia of chronic disease, (ANCA associated vasculitis/CKD) patient clinically asymptomatic, no active bleeding noted Tachycardic CBC in ED: Hgb 7.9 Hct 24.6 2 units PRBC ordered , await transfusion f/u CBC in AM Sinus Tachycardia EKG showed sinus tachycardia possible 2/2 anemia transfuse 2 units of PRBC f/u VS, specially HR Cardiology consulted by ED doctor. Dr. Miles on board End stage chronic kidney disease on HD T/TH/MON Nephro: Dr Sandoval Right subclavian central line-dialysis catheter with tip in SVC on HD T//MON COPD pt reports SOB/nonproductive cough, however states that he is on his baseline. no signs on exacerbation at PE c/w Advair Diskus 500/50 1 puff Q12 CXR showed suspected minor bibasilar atelectasis Hypertension controlled c/w Coreg 25 mg BID c/w Hydralazine 50 mg PO TID Hold ASA/Plavix DVT Prophylaxis SCDs for now - Date & Time Date: 07/21/17 Time: 14:40
[2017-07-21 17:16] LABS: URINE BACTERIA OCC (<OCC)
[2017-07-21] MEDS ORDERED: Influenza Vaccine 18yr & older 0.5 ML/45 MCG SYR IM ONE (19:00)
[2017-07-21] MEDS: Fluticasone-Salmeterol 500-50mcg Diskus IH SCH (21:05)
--- NOTE | 2017-07-22 06:20 | CON ---
DATE: CARDIOLOGY CONSULTATION REASON FOR CONSULTATION: Sinus tachycardia and dizziness. HISTORY OF PRESENT ILLNESS: The patient is 67 years old homeless male who lives in a group home, has history of end-stage renal disease, on hemodialysis, was treated recently for pulmonary TB and also was treated for Khanh's granulomatosis with steroids and antimitotic agents; however, he eventually required hemodialysis. The patient also has history of congestive heart failure. He presented because of dizziness and palpitation, and EKG was consistent with sinus tachycardia. The patient chest pain. The patient denies productive cough, fever, or chills at this time, and denies any hemoptysis. SOCIAL HISTORY: The patient is homeless, who lives in a group home. MEDICATIONS: Advair 1 puff q.12 hours, hydralazine 50 mg q.8 hours, Coreg 25 mg twice a day, aspirin 81 mg once a day, PhosLo 1 tablet with each meal, and Plavix 75 mg once a day. PHYSICAL EXAMINATION: GENERAL: The patient is an elderly male who does not appear to be in acute distress. VITAL SIGNS: Blood pressure 144/86, heart rate 125, sinus tachycardia on the monitor, temperature 98.7, respirations 18. HEENT: Pale conjunctivae. CHEST: Left basal coarse crepitations. HEART: S1 and S2 regular. ABDOMEN: Soft. EXTREMITIES: No edema. LABORATORY DATA: Hemoglobin and hematocrit 7.9 and 24.6, white count and platelet count are within normal limits. SMA-7; sodium 139, potassium 4.5, chloride 96, CO2 of 32, glucose 93, BUN 39, creatinine 6.2. ProBNP is 15,500. INR is 1.3, PTT 29.5. Chest x-ray was reviewed with ER physician and official report, impression; suspect minor bibasilar atelectasis. EKG reveals sinus tachycardia with rate of 122; otherwise, normal EKG. Most recent echocardiogram in 03/2017 revealed ejection fraction in the range of 30% to 35%, grade I abnormal relaxation pattern, moderate mitral insufficiency. ASSESSMENT: 1. Congestive heart failure. 2. End-stage renal disease, on hemodialysis. 3. Bibasilar atelectasis. 4. Anemia. 5. Rule out underlying sepsis. RECOMMENDATIONS: Continue Coreg 25 mg twice a day, aspirin 81 mg once a day, Plavix 75 mg once a day, hydralazine 50 mg q.8 hours. Obtain 2 sets of blood cultures and obtain a followup chest x-ray in a.m. Hi Miles MD
[2017-07-22 06:32] LABS: HEMATOCRIT 29.6 % (35.0-51.0); MEAN CELL VOLUME 94.1 fl (80.0-94.0); MEAN CORPUSCULAR HEMOGLOBIN 31.8 pg (27.0-31.0); MEAN CORPUSCULAR HGB CONC 33.7 g/dL (33.0-37.0); RED CELL DISTRIBUTION WIDTH 17.9 % (11.5-14.5); WHITE BLOOD COUNT 8.6 K/uL (4.8-10.8)
[2017-07-22 06:46] LABS: ALB/GLOB RATIO 1.1 (1.0-2.1); BILIRUBIN,TOTAL 0.5 mg/dl (0.2-1.3); CALCIUM 8.3 mg/dL (8.4-10.2); POTASSIUM 4.7 MMOL/L (3.6-5.0); TOTAL PROTEIN 6.6 G/DL (6.3-8.2)
[2017-07-22] MEDS: Fluticasone-Salmeterol 500-50mcg Diskus IH SCH ×2 (08:47→21:28)
--- NOTE | 2017-07-22 09:41 | CP.PCM.PN ---
Subjective - Date & Time of Evaluation Date of Evaluation: 07/22/17 Time of Evaluation: 09:10 - Subjective Subjective: Patient seen and examined in Telemetry unit this morning. S/p 2 units of PRBC yesterday. Pt improving clinically. Afebrile, HR improving Awaiting for Dialysis today Objective - Vital Signs/Intake and Output Vital Signs (last 24 hours): Temp Pulse Resp BP Pulse Ox 97.7 F 85 18 151/82 H 96 07/22/17 08:00 07/22/17 08:00 07/22/17 08:00 07/22/17 08:00 07/22/17 08:00 - Medications Medications: Current Medications Aspirin (Ecotrin) 81 mg PO DAILY [facility] Calcium Acetate (Phoslo) 1,334 mg PO WM [facility] Last Admin: 07/22/17 08:47 Dose: 1,334 mg Carvedilol (Coreg) 25 mg PO Q12 [facility] Last Admin: 07/22/17 08:48 Dose: Not Given Citalopram Hydrobromide (Celexa) 20 mg PO DAILY [facility] Last Admin: 07/22/17 08:48 Dose: 20 mg Clopidogrel Bisulfate (Plavix) 75 mg PO DAILY [facility] Last Admin: 07/22/17 08:47 Dose: 75 mg Hydralazine HCl (Apresoline) 50 mg PO Q8 [facility] Last Admin: 07/22/17 08:48 Dose: Not Given Fluticasone/Salmeterol (Advair Diskus 500/50) 1 puff IH Q12 [facility] Last Admin: 07/22/17 08:47 Dose: 1 puff - Labs Labs: 07/22/17 05:30 07/22/17 05:30 PT 13.0 Seconds (9.8-13.1) 07/21/17 11:15 INR 1.3 (0.9-1.2) H 07/21/17 11:15 APTT 29.5 Seconds (25.6-37.1) 07/21/17 11:15 - Constitutional Appears: No Acute Distress - ENT Exam ENT Exam: Mucous Membranes Moist - Respiratory Exam Respiratory Exam: Clear to Ausculation Bilateral, Rales (fine, scant and diffuse in left lower lobe), NORMAL BREATHING PATTERN. absent: Rhonchi, Wheezes - Cardiovascular Exam Cardiovascular Exam: REGULAR RHYTHM, +S1, +S2. absent: Tachycardia - GI/Abdominal Exam GI & Abdominal Exam: Soft, Normal Bowel Sounds. absent: Distended, Guarding, Tenderness - Neurological Exam Neurological Exam: Alert, Awake, Oriented x3 Assessment and Plan - Assessment and Plan (Free Text) Assessment: 67 y/o M with multiple comorbidities including ESRD, on HD:T,,mon; well known to service admitted with persistent sinus tachycardia, low hemoglobin, to receive transfusion of PRBC. Plan: Anemia improving after transfusion Likely anemia of chronic disease, (ANCA associated vasculitis/CKD) patient clinically asymptomatic, no active bleeding noted Tachycardic resolved post transfusion CBC in ED: Hgb 10.0 Hct 29.6, platelets WNL s/p 2 units PRBC on 07/22/17 f/u H/H UTI possible Melonie UTI vs Contamination noted on admission afebrile, asymptomatic UA showed leukocyte sterase, WBC: 1887, RBC: 211, few yeast, occ bacteria, proteinuria start Diflucan 100 mg PO daily/renal dose -f/u Urine culture -f/u repeat UA Sinus Tachycardia resolved since the last 12 hrs EKG showed sinus tachycardia possible 2/2 anemia s/p 2 units PRBC on 07/22/17 f/u VS, specially HR f/u Blood Cx 2 sets, and f/u CXR as recommended by Dr. Miles Cardiology consulted by ED doctor. Dr. Miles on board End stage chronic kidney disease [facility] was called to clarify status of current right dialysis catheter, and as per them, patient presented yesterday to their office for catheter change ( patient was sent to their office by Dialysis Center to check catheter for possible malfunction, however pt completed dialysis on 07/20/17), but they reported some changes in pressure that could represent malfunction of the catheter), but patient was noted to be tachycardic, c/o SOB, after being placed on cardica monitor, HR was found to be 130's and sent to the hospital for further evaluation. As per [facility] if the Dialysis catheter is working during the dialysis today, pt does not need an urgent catheter change and could be manage as outpatient. awating for dialysis today, this afternoon on HD / Nephro: Dr Sandoval, f/u recommendations Right subclavian central line-dialysis catheter with tip in SVC on HD T//MON COPD pt reports SOB/nonproductive cough, however states that he is on his baseline. no signs on exacerbation at PE c/w Advair Diskus 500/50 1 puff Q12 CXR showed suspected minor bibasilar atelectasis Hypertension controlled c/w Coreg 25 mg BID c/w Hydralazine 50 mg PO TID Hold ASA/Plavix DVT Prophylaxis SCDs for now
--- NOTE | 2017-07-22 15:46 | PN ---
SUBJECTIVE: The patient is currently undergoing hemodialysis. He is cheerful. He denies any chest pain, dizziness, or shortness of breath. PHYSICAL EXAMINATION: VITAL SIGNS: Blood pressure 132/72, heart rate 66, temperature 99.9, respirations 18. HEENT: Normocephalic. CHEST: Clear. HEART: S1 and S2 regular. EXTREMITIES: No edema. LABORATORY DATA: Hemoglobin and hematocrit 10 and 29.6, white count and platelet count are within normal limits. Today's BUN and creatinine prior to hemodialysis are 59 and 8.1. Potassium is within normal limits. Blood pressure is negative after 24 hours. ASSESSMENT: 1. Congestive heart failure. 2. End-stage renal disease, on hemodialysis. 3. Anemia. 4. Hypertension. RECOMMENDATIONS: Continue hydralazine 50 mg q.8 hours, Coreg 25 mg twice a day, aspirin 81 mg once a day, Plavix 75 mg once a day. I will follow up blood culture results. Hi Miles MD
--- NOTE | 2017-07-22 22:36 | RAD ---
HISTORY: SOB, cough COMPARISON: No prior. TECHNIQUE: Chest PA and lateral FINDINGS: LUNGS: No active pulmonary disease. 8 millimeter nodule at the left lung base; recommend correlation with chest CT scan. PLEURA: No significant pleural effusion identified. No pneumothorax apparent. CARDIOVASCULAR: Normal. OSSEOUS STRUCTURES: No significant abnormalities. VISUALIZED UPPER ABDOMEN: Normal. OTHER FINDINGS: None. IMPRESSION: 8 millimeter nodule at the left lung base; recommend correlation with chest CT scan.
--- NOTE | 2017-07-22 23:08 | CP.PCM.CON ---
Past Patient History - Infectious Disease Hx of Infectious Diseases: None - Past Medical History & Family History Past Medical History?: Yes - Past Social History Alcohol: None Drugs: Denies - CARDIAC Hx Congestive Heart Failure: Yes Hx Hypertension: Yes - PULMONARY Hx Chronic Obstructive Pulmonary Disease (COPD): Yes Hx Pneumonia: Yes - NEUROLOGICAL Hx Seizures: Yes - HEENT Hx HEENT Problems: No - RENAL Hx Chronic Kidney Disease: Yes - ENDOCRINE/METABOLIC Hx Endocrine Disorders: No - HEMATOLOGICAL/ONCOLOGICAL Hx Anemia: Yes Hx Human Immunodeficiency Virus (HIV): No - INTEGUMENTARY Hx Dermatological Problems: No - MUSCULOSKELETAL/RHEUMATOLOGICAL Hx Arthritis: Yes - GASTROINTESTINAL Hx Gastrointestinal Disorders: Yes Hx Hemorrhoids: Yes - GENITOURINARY/GYNECOLOGICAL Hx Genitourinary Disorders: No - PSYCHIATRIC Hx Anxiety: Yes Hx Depression: Yes - SURGICAL HISTORY Hx Coronary Stent: No - ANESTHESIA Hx Anesthesia: Yes Hx Anesthesia Reactions: No Hx Malignant Hyperthermia: No Meds Allergies/Adverse Reactions: Allergies Allergy/AdvReac Type Severity Reaction Status Date / Time sulfamethoxazole Allergy RASH Verified 07/21/17 10:58 [From ] trimethoprim [From ] Allergy RASH Verified 07/21/17 10:58 - Medications Medications: Current Medications Aspirin (Ecotrin) 81 mg PO DAILY [facility] Calcium Acetate (Phoslo) 1,334 mg PO WM [facility] Last Admin: 07/22/17 17:49 Dose: 1,334 mg Carvedilol (Coreg) 25 mg PO Q12 [facility] Last Admin: 07/22/17 21:31 Dose: 25 mg Citalopram Hydrobromide (Celexa) 20 mg PO DAILY [facility] Last Admin: 07/22/17 08:48 Dose: 20 mg Clopidogrel Bisulfate (Plavix) 75 mg PO DAILY [facility] Last Admin: 07/22/17 08:47 Dose: 75 mg Fluconazole (Diflucan) 100 mg PO DAILY [facility] Last Admin: 07/22/17 12:44 Dose: 100 mg Hydralazine HCl (Apresoline) 50 mg PO Q8 [facility] Last Admin: 07/22/17 17:13 Dose: 50 mg Fluticasone/Salmeterol (Advair Diskus 500/50) 1 puff IH Q12 [facility] Last Admin: 07/22/17 21:28 Dose: 1 puff Results - Vital Signs Recent Vital Signs: Last Vital Signs Temp 98.5 F 07/22/17 19:35 Pulse 78 07/22/17 21:31 Resp 20 07/22/17 19:35 BP 137/76 07/22/17 21:31 Pulse Ox 96 07/22/17 19:35 - Labs Result Diagrams: 07/22/17 05:30 07/22/17 05:30 Labs: Laboratory Results - last 24 hr 07/21/17 07/22/17 07/22/17 15:30 05:30 05:30 WBC 8.6 RBC 3.14 L Hgb 10.0 L D Hct 29.6 L MCV 94.1 H D MCH 31.8 H MCHC 33.7 RDW 17.9 H Plt Count 235 Sodium 138 Potassium 4.7 Chloride 96 L Carbon Dioxide 28 Anion Gap 19 BUN 59 H Creatinine 8.1 H* D Est GFR ( Amer) 8 Est GFR (Non-Af Amer) 7 Random Glucose 116 H Calcium 8.3 L Total Bilirubin 0.5 AST 27 ALT 21 Alkaline Phosphatase 64 Total Protein 6.6 Albumin 3.5 Globulin 3.1 Albumin/Globulin Ratio 1.1 Blood Type A POSITIVE Antibody Screen Negative Crossmatch See Detail BBK History Checked Patient has bt
[2017-07-22 23:47] VITALS: RESP 18
[2017-07-23 06:43] LABS: HEMATOCRIT 31.4 % (35.0-51.0); MEAN CELL VOLUME 95.7 fl (80.0-94.0); MEAN CORPUSCULAR HGB CONC 32.4 g/dL (33.0-37.0); RED CELL DISTRIBUTION WIDTH 17.9 % (11.5-14.5); WHITE BLOOD COUNT 8.6 K/uL (4.8-10.8)
[2017-07-23 06:56] LABS: ALB/GLOB RATIO 1.1 (1.0-2.1); BILIRUBIN,TOTAL 0.4 mg/dl (0.2-1.3); CALCIUM 8.5 mg/dL (8.4-10.2); MAGNESIUM 1.9 MG/DL (1.6-2.3); PHOSPHOROUS 4.4 mg/dl (2.5-4.5); POTASSIUM 4.8 MMOL/L (3.6-5.0); TOTAL PROTEIN 6.6 G/DL (6.3-8.2)
[2017-07-23] MEDS: Fluticasone-Salmeterol 500-50mcg Diskus IH SCH (08:45)
[2017-07-23 09:56] LABS: RBC URINE 161 /hpf (0-3); URINE BACTERIA FEW (<OCC); URINE BILIRUBIN NEGATIVE (NEGATIVE); URINE BLOOD MODERATE (NEGATIVE); URINE COLOR YELLOW (YELLOW); URINE GLUCOSE (UA) NEG (Normal); URINE KETONE NEGATIVE (NEGATIVE); URINE LEUKOCYTE ESTERASE LARGE Leu/uL (Negative); URINE PROTEIN >=500 mg/dL (NEGATIVE); URINE UROBILINOGEN 0.2-1.0 mg/dL (0.2-1.0); WBC URINE 188 /hpf (0-5)
[2017-07-23 11:40] VITALS: BP 124/69; PULSE 72; TEMP 98.4; O2SAT 96
--- NOTE | 2017-07-23 14:02 | CT ---
PROCEDURE: CT Chest without contrast HISTORY: lung nodule CXR, h/o ESRD COMPARISON: 04/04/2017. TECHNIQUE: Contiguous axial images were obtained through the chest without intravenous contrast enhancement. Sagittal and coronal reconstructions were performed. Radiation dose (DLP): mGy-cm. This CT exam was performed using one or more of the following dose reduction techniques: Automated exposure control, adjustment of the mA and/or kV according to patient size, and/or use of iterative reconstruction technique. FINDINGS: LUNGS: 5 millimeter juxtapleural nodule along the left major fissure likely postinflammatory. Clear lungs. Visualized airway clear. MEDIASTINUM: Unremarkable thoracic aorta. No aneurysm. Normal sized heart. Small pericardial effusion. Main pulmonary artery unremarkable. No vascular congestion. No lymphadenopathy. PLEURA: Small bilateral pleural effusions. BONES: No fracture. No destructive lesion. UPPER ABDOMEN: Grossly unremarkable. OTHER FINDINGS: None. IMPRESSION: 5 millimeter juxtapleural nodule along the left major fissure. Small pericardial effusion. Small bilateral pleural effusions.
--- NOTE | 2017-07-23 14:20 | CP.PCM.DIS ---
Provider - Provider Date of Admission: 07/21/17 12:24 Attending physician: Aaliyah Knott MD Time Spent in preparation of Discharge (in minutes): 20 Diagnosis - Discharge Diagnosis (1) Chronic kidney disease requiring chronic dialysis Status: Acute (2) Tachycardia Status: Acute Hospital Course - Lab Results Lab Results: Micro Results 07/21/17 16:09 Urine Urine Culture - Final Corynebacterium Species Most Recent Lab Values WBC 8.6 K/uL (4.8-10.8) 07/23/17 06:00 RBC 3.28 Mil/uL (4.40-5.90) L 07/23/17 06:00 Hgb 10.2 g/dL (12.0-18.0) L 07/23/17 06:00 Hct 31.4 % (35.0-51.0) L 07/23/17 06:00 MCV 95.7 fl (80.0-94.0) H 07/23/17 06:00 MCH 31.0 pg (27.0-31.0) 07/23/17 06:00 MCHC 32.4 g/dL (33.0-37.0) L 07/23/17 06:00 RDW 17.9 % (11.5-14.5) H 07/23/17 06:00 Plt Count 233 K/uL (130-400) 07/23/17 06:00 MPV 6.7 fl (7.2-11.7) L 07/21/17 11:15 Neut % (Auto) 57.5 % (50.0-75.0) 07/21/17 11:15 Lymph % (Auto) 28.2 % (20.0-40.0) 07/21/17 11:15 [place] % (Auto) 10.2 % (0.0-10.0) H 07/21/17 11:15 Eos % (Auto) 3.0 % (0.0-4.0) 07/21/17 11:15 Baso % (Auto) 1.1 % (0.0-2.0) 07/21/17 11:15 Neut # 4.2 K/uL (1.8-7.0) 07/21/17 11:15 Lymph # 2.1 K/uL (1.0-4.3) 07/21/17 11:15 [place] # 0.7 K/uL (0.0-0.8) 07/21/17 11:15 Eos # 0.2 K/uL (0.0-0.7) 07/21/17 11:15 Baso # 0.1 K/uL (0.0-0.2) 07/21/17 11:15 PT 13.0 Seconds (9.8-13.1) 07/21/17 11:15 INR 1.3 (0.9-1.2) H 07/21/17 11:15 APTT 29.5 Seconds (25.6-37.1) 07/21/17 11:15 pO2 30 mm/Hg (30-55) 07/21/17 11:50 VBG pH 7.48 (7.32-7.43) H 07/21/17 11:50 VBG pCO2 54 mmHg (40-60) 07/21/17 11:50 VBG HCO3 35.1 mmol/L 07/21/17 11:50 VBG Total CO2 41.9 mmol/L (22-28) H 07/21/17 11:50 VBG O2 Sat (Calc) 64.9 % (40-65) 07/21/17 11:50 VBG Base Excess 14.2 mmol/L (0.0-2.0) H 07/21/17 11:50 VBG Potassium 4.4 mmol/L (3.6-5.2) 07/21/17 11:50 Sodium 139.0 mmol/L (132-148) 07/21/17 11:50 Chloride 101.0 mmol/L (98-107) 07/21/17 11:50 Glucose 84 mg/dL (75-110) 07/21/17 11:50 Lactate 0.7 mmol/L (0.7-2.1) 07/21/17 11:50 FiO2 21.0 % 07/21/17 11:50 Sodium 134 mmol/l (132-148) 07/23/17 06:00 Potassium 4.8 MMOL/L (3.6-5.0) 07/23/17 06:00 Chloride 97 mmol/L (98-107) L 07/23/17 06:00 Carbon Dioxide 27 mmol/L (22-30) 07/23/17 06:00 Anion Gap 15 (10-20) 07/23/17 06:00 BUN 37 mg/dl (9-20) H 07/23/17 06:00 Creatinine 5.3 mg/dL (0.8-1.5) H 07/23/17 06:00 Est GFR ( Amer) 13 07/23/17 06:00 Est GFR (Non-Af Amer) 11 07/23/17 06:00 Random Glucose 84 mg/dL (75-110) 07/23/17 06:00 Calcium 8.5 mg/dL (8.4-10.2) 07/23/17 06:00 Phosphorus 4.4 mg/dl (2.5-4.5) 07/23/17 06:00 Magnesium 1.9 MG/DL (1.6-2.3) 07/23/17 06:00 Total Bilirubin 0.4 mg/dl (0.2-1.3) 07/23/17 06:00 AST 18 U/L (17-59) 07/23/17 06:00 ALT 23 U/L (21-72) 07/23/17 06:00 Alkaline Phosphatase 63 U/L (38-126) 07/23/17 06:00 Troponin I < 0.0120 ng/mL (0.00-0.120) 07/21/17 11:15 NT-Pro-B Natriuret Pep 00153 pg/ml (0-900) H 07/21/17 11:15 Total Protein 6.6 G/DL (6.3-8.2) 07/23/17 06:00 Albumin 3.5 g/dL (3.5-5.0) 07/23/17 06:00 Globulin 3.1 gm/dL (2.2-3.9) 07/23/17 06:00 Albumin/Globulin Ratio 1.1 (1.0-2.1) 07/23/17 06:00 Venous Blood Potassium 4.4 mmol/L (3.6-5.2) 07/21/17 11:50 Urine Color Yellow (YELLOW) 07/23/17 10:00 Urine Clarity Cloudy (Clear) 07/23/17 10:00 Urine pH 8.0 (5.0-8.0) 07/23/17 10:00 Ur Specific [place] 1.011 (1.003-1.030) 07/23/17 10:00 Urine Protein >=500 mg/dL (NEGATIVE) 07/23/17 10:00 Urine Glucose (UA) Neg mg/dL (Normal) 07/23/17 10:00 Urine Ketones Negative mg/dL (NEGATIVE) 07/23/17 10:00 Urine Blood Moderate (NEGATIVE) 07/23/17 10:00 Urine Nitrate Negative (NEGATIVE) 07/23/17 10:00 Urine Bilirubin Negative (NEGATIVE) 07/23/17 10:00 Urine Urobilinogen 0.2-1.0 mg/dL (0.2-1.0) 07/23/17 10:00 Ur Leukocyte Esterase Large [place]/uL (Negative) 07/23/17 10:00 Urine RBC (Auto) 161 /hpf (0-3) H 07/23/17 10:00 Urine WBC Clumps (Auto) Many /hpf (NONE) H 07/21/17 16:50 Urine Microscopic WBC 188 /hpf (0-5) H 07/23/17 10:00 Ur Squamous Epith Cells 1 /hpf (0-5) 07/23/17 10:00 Urine Bacteria Few (<OCC) H 07/23/17 10:00 Urine Yeast (Budding) Occ /hpf (NEGATIVE) H 07/23/17 10:00 Blood Type A POSITIVE 07/21/17 15:30 Antibody Screen Negative 07/21/17 15:30 Crossmatch See Detail 07/21/17 15:30 BBK History Checked Patient has bt 07/21/17 15:30 - Hospital Course Hospital Course: 67y/o homeless M with multiple comorbidities including Stage 5 ESRD (HD T,Th,S) and ANCA associated vasculitis admitted for tachycardia. Pt had gone to dialysis center and referred to have catheter replacement. Noted to have tachycardia with HR 130s and sent to ED. Pt had anemia requiring 2u pRBC to be transfused with tachycardia resolving afterwards. Pt recieved HD per schedule and nephro Dr. Simeon c/s (partner of Dr. Lopez practice covering for the weekend) and no issue with catheter found and HD successful. Pt not found to have COPD exacerbation once on the RMF. Pt to follow with usual HD schedule and to have catheter changed as outpatient and to have AVF in the left arm checked at HD center as well before use. This was communicated with the office the pt had gone to for cath change and acknowledged by the pt as well. Pt noted to have incidental CXR finding and CT chest wo cont performed and results to be followed up as outpatient in addition to urine culture.Pt cleared by nephro for discharge. Discharge Exam - Head Exam Head Exam: ATRAUMATIC, NORMAL INSPECTION, NORMOCEPHALIC - Eye Exam Eye Exam: Normal appearance - ENT Exam ENT Exam: Mucous Membranes Moist - Neck Exam Neck exam: Full Rom, Normal Inspection - Respiratory Exam Additional comments: transmitted lung sounds - Cardiovascular Exam Cardiovascular Exam: REGULAR RHYTHM. absent: Tachycardia - GI/Abdominal Exam GI & Abdominal Exam: Normal Bowel Sounds, Soft - Extremities Exam Extremities exam: normal inspection Additional comments: left AVF: thrill, no hematoma - Back Exam Back exam: NORMAL INSPECTION - Neurological Exam Neurological exam: Alert, Oriented x3 - Skin Skin Exam: Dry, Warm Discharge Plan - Follow Up Plan Condition: FAIR Disposition: HOME/ ROUTINE Instructions: Supraventricular Tachycardia (DC) Additional Instructions: pt to continue with dialysis T//S. will need next HD monday. from HD center, will get sent for catheter change and check for AV fistula will FU with nephrology and PCP within 1 week will continue with home meds Referrals: Desire Simeon MD [Staff Provider] -
== END 2017-07-23 14:14 | disposition home or self-care (01) | DRG 127 ==
LOC: H.ER 10:33 → H.ERHOLD 12:24 → H.TEL 16:42
PROVIDERS: ADMIT Family Medicine Geriatric Medicine; ATTEND Family Medicine Geriatric Medicine
PROC: 30233N1 Transfusion of Nonautologous Red Blood Cells into Peripheral Vein, Percutaneous Approach (ICD-10-PCS; 2017-07-21)
PROC: 5A1D00Z (ICD-10-PCS; principal; 2017-07-22)
DX: I13.0 Hypertensive heart and chronic kidney disease with heart failure and stage 1 through stage 4 chronic kidney disease, or unspecified chronic kidney disease (principal); N18.6 End stage renal disease; J44.1 Chronic obstructive pulmonary disease with (acute) exacerbation; I50.9 Heart failure, unspecified; J98.11 Atelectasis; N39.0 Urinary tract infection, site not specified; I77.6 Arteritis, unspecified; Z86.11 Personal history of tuberculosis; Z59.0 Homelessness; Z79.82 Long term (current) use of aspirin; Z87.01 Personal history of pneumonia (recurrent); Z87.891 Personal history of nicotine dependence; Z99.2 Dependence on renal dialysis; D63.1 Anemia in chronic kidney disease; R00.0 Tachycardia, unspecified

== ENCOUNTER 2017-09-23 08:56 | Inpatient (IN) | payer SELFPAY ==
[2017-09-23 09:03] VITALS: BMI 25.8
[2017-09-23] MEDS ORDERED: Piperacillin/Tazobact 3.375 GM in Sodium Chloride 0.9% 100 ML IVPB ONE ×4 (09:30→19:45)
--- NOTE | 2017-09-23 09:39 | ED PDOC ---
HPI: SOB/CHF/COPD Time Seen by Provider: 09/23/17 09:06 Chief Complaint (Nursing): Shortness Of Breath Additional Complaint(s): Patient is a 67 y/o M with hx of HTN, ESRD (on HD T, R, S), COPD, presenting after AMA from [facility] this morning. Per Dr. Deanne Benton, patient was being treated at [facility] for endocarditis, on vanc and zosyn and was scheduled for HD today as well as [facility]. Patient was also found to have anemia and was pending GI workup. Patient wanted transfer to [facility] where he gets all this medical care and instead of waiting for transfer, left AMA. Patient is complaining of persistent chest pain and shortness of breath. Past Medical History Vital Signs: Last Vital Signs Temp 96.0 F L 09/23/17 09:04 Pulse 82 09/23/17 09:04 Resp 20 09/23/17 09:26 BP 122/41 L 09/23/17 09:04 Pulse Ox 97 09/23/17 10:21 - Medical History PMH: Anemia, Anxiety, Arthritis, CHF, COPD, Depression, Deep Vein Thrombosis ( RUE), HTN, Pneumonia, End Stage Renal Disease, Chronic Kidney Disease, Seizures Denies: HIV - Surgical History Surgical History: Denies: Coronary Stent - Family History Family History: States: Unknown Family Hx - Immunization History Hx Tetanus Toxoid Vaccination: No Hx Influenza Vaccination: No Hx Pneumococcal Vaccination: No - Home Medications Home Medications: Ambulatory Orders Medication Instructions Recorded Aspirin [Ecotrin] 81 mg PO DAILY #30 07/03/17 Carvedilol [Coreg] 25 mg PO Q12 #60 tab 07/03/17 Citalopram Hydrobromide [Celexa] 20 mg PO DAILY #30 07/03/17 Clopidogrel [Plavix] 75 mg PO DAILY #30 07/03/17 hydrALAZINE [Apresoline] 50 mg PO Q8 #90 tab 07/03/17 Sevelamer Carbonate [Renvela] 2 tab PO TID 08/17/17 Fluticasone/Salmeterol 500/50 1 puff IH Q12 puff 09/15/17 [Advair Diskus 500/50] B Complex W-C No.20/Folic Acid 1 cap PO DAILY 09/23/17 [Renal Caps Softgel] Calcium Acetate [Phoslo] 1,334 mg PO TID 09/23/17 - Allergies Allergies/Adverse Reactions: Allergies Allergy/AdvReac Type Severity Reaction Status Date / Time sulfamethoxazole Allergy RASH Verified 07/31/17 07:39 [From ] trimethoprim [From ] Allergy RASH Verified 07/31/17 07:39 Review of Systems ROS Statement: Except As Marked, All Systems Reviewed And Found Negative Constitutional: Negative for: Fever, Chills Cardiovascular: Positive for: Chest Pain, Palpitations. Negative for: Edema Respiratory: Positive for: Shortness of Breath, SOB with Exertion, Pleuritic Pain. Negative for: Cough Gastrointestinal: Negative for: Nausea, Vomiting, Abdominal Pain, Diarrhea, Constipation Genitourinary Male: Negative for: Dysuria Neurological: Negative for: Weakness, Numbness, Seizures, Headache Physical Exam - Reviewed Nursing Documentation Reviewed: Yes Vital Signs Reviewed: Yes - Physical Exam Appears: Positive for: Well (speaking in complete sentences, resting in bed in NAD), Non-toxic Head Exam: Positive for: ATRAUMATIC, NORMAL INSPECTION, NORMOCEPHALIC Skin: Positive for: Normal Color, Warm, DRY Neck: Positive for: Painless ROM, Supple Cardiovascular/Chest: Positive for: Regular Rate, Rhythm Respiratory: Positive for: Rales (scant at bases). Negative for: Respiratory Distress Gastrointestinal/Abdominal: Positive for: Soft. Negative for: Tenderness, Distended Back: Positive for: Normal Inspection. Negative for: L CVA Tenderness, R CVA Tenderness Extremity: Positive for: Normal ROM, Other (Positive thrill to L upper extremity AV fistula) Neurologic/Psych: Positive for: Alert, floor and wall applier liquid II-XII, Gait (steady) - ECG O2 Sat by Pulse Oximetry: 97 Medical Decision Making Medical Decision Making: Spoke to Dr. Benton, requesting admission to clinic service as patient usually admitted by them. EKG shows NSR at 82bpm with normal intervals and no ST changes. Ordered labs, cxray and blood cx. Abx to be started at dialysis today. Spoke to resident and will admit. Disposition - Clinical Impression Clinical Impression: Endocarditis, Chest pain - Patient ED Disposition Is Patient to be Admitted: Yes - Disposition Disposition Time: 09:47 Condition: FAIR - Pt Status Changed To: Hospital Disposition Of: Inpatient - Admit Certification Admit to Inpatient:: After my assessment, the patient will require hospitalization for at least two midnights. This is because of the severity of symptoms shown, intensity of services needed, and/or the medical risk in this patient being treated as an outpatient.
--- NOTE | 2017-09-23 10:23 | CP.PCM.HP ---
History of Present Illness - History of Present Illness History of Present Illness: PMD [facility] No advance directives Hx taken from patient and old records 67M known to service presents to ED after he left AMA from [facility] this morning after 2 days of admission for dizziness. As per patient they were treating him "bad there, and didnt give him food and he left". At ED he c/o chest pain intermittent for the past 4-5 days that improves with rest or walking but not all the time. At the time of examination patient denied CP, palpitations, vomiting, nausea, SOB, headaches, diarrhea. He c/o dark stools for the past 4-5 days about 2-3 times per day. Denies hematochezia or hematemesis. Afebrile. [facility] was [facility] at a [facility] after he was DC from [facility] on 09/15/17. Last dialysis 09/21/17 as per patient but sometimes he is incoherent with his Hx. He c/o being very hungry nad wants to eat. Dr Benton was f /u patient at may and states patient was being work up for Endocarditis, and will bring records tomorrow. During last admission patient was positive for bacteremia with VRE and treated with abx for 26 days. Repeat BCx were negative. Dialysis port was removed at the time and Cx of the tip of port were negative. Patient has no PMHx of GI bleeding or cancer. At the time of admission patient only complain is weakness and LE B/L aches. PMH: HTN, Vasculitis, ESRD (Dialysis T//Mon), H/O DVT RUE, COPD, HFrEF Present on Admission - Present on Admission Any Indicators Present on Admission: Yes History of DVT/PE: Yes Review of Systems - Review of Systems Systems not reviewed;Unavailable: Other (Stable) All systems: reviewed and no additional remarkable complaints except - Constitutional Constitutional: Weakness Additional comments: LE pain - Respiratory Respiratory: Cough (sporadic, slighty productive) - Gastrointestinal Gastrointestinal: Melena Past Patient History - Infectious Disease Hx of Infectious Diseases: None - Past Medical History & Family History Past Medical History?: Yes - Past Social History Smoking Status: Former Smoker - CARDIAC Hx Congestive Heart Failure: Yes Hx Hypertension: Yes - PULMONARY Hx Chronic Obstructive Pulmonary Disease (COPD): Yes Hx Pneumonia: Yes - NEUROLOGICAL Hx Seizures: Yes - HEENT Hx HEENT Problems: No - RENAL Hx Chronic Kidney Disease: Yes - ENDOCRINE/METABOLIC Hx Endocrine Disorders: No - HEMATOLOGICAL/ONCOLOGICAL Hx Anemia: Yes Hx Human Immunodeficiency Virus (HIV): No - INTEGUMENTARY Hx Dermatological Problems: No - MUSCULOSKELETAL/RHEUMATOLOGICAL Hx Arthritis: Yes - GASTROINTESTINAL Hx Gastrointestinal Disorders: Yes Hx Hemorrhoids: Yes - GENITOURINARY/GYNECOLOGICAL Hx Genitourinary Disorders: No - PSYCHIATRIC Hx Anxiety: Yes Hx Depression: Yes - SURGICAL HISTORY Hx Coronary Stent: No - ANESTHESIA Hx Anesthesia: Yes Hx Anesthesia Reactions: No Hx Malignant Hyperthermia: No Meds Allergies/Adverse Reactions: Allergies Allergy/AdvReac Type Severity Reaction Status Date / Time sulfamethoxazole Allergy RASH Verified 07/31/17 07:39 [From ] trimethoprim [From ] Allergy RASH Verified 07/31/17 07:39 Physical Exam - Constitutional Appears: Non-toxic, No Acute Distress - Eye Exam Eye Exam: EOMI, Normal appearance - ENT Exam ENT Exam: Mucous Membranes Moist - Respiratory Exam Respiratory Exam: Rales (BB), NORMAL BREATHING PATTERN. absent: Wheezes, Respiratory Distress - Cardiovascular Exam Cardiovascular Exam: REGULAR RHYTHM, +S1, +S2, Systolic Murmur - GI/Abdominal Exam GI & Abdominal Exam: Normal Bowel Sounds, Soft, Tenderness (RUQ). absent: Distended, Guarding, Organomegaly, Rebound - Rectal Exam Rectal Exam: Black Stool, Hemorrhoids. absent: Bloody Stool - Extremities Exam Extremities exam: Positive for: normal capillary refill. Negative for: calf tenderness, joint swelling, pedal edema - Neurological Exam Neurological exam: Alert, Oriented x3 - Psychiatric Exam Psychiatric exam: Normal Affect, Normal Mood - Skin Skin Exam: Normal Color, Warm Results - Vital Signs Recent Vital Signs: Last Vital Signs Temp 96.0 F L 09/23/17 09:04 Pulse 82 09/23/17 09:04 Resp 20 09/23/17 09:26 BP 122/41 L 09/23/17 09:04 Pulse Ox 97 09/23/17 10:21 - Labs Result Diagrams: 09/23/17 09:49 09/23/17 09:49 Assessment & Plan - Assessment and Plan (Free Text) Assessment: Dark stools/Positive Guaiac -Suspected UGI bleeding -Patient stable. VS WNL -Hgb 8s -GI consulted Dr Ignacio. 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 -Nephrology (Dr. Sandoval) consulted -For HD today Questionable Endocarditis -Patient was being treated for endocarditis at [facility] -Afebrile, WBC WNL -Will c/w abx for now Vanco and Zosyn -Previous hosp admission with VRE bacteremia previously resolved -F/U BCx Systolic Chronic Heart failure, stable -Last echo performed last admission reveals normal EF of 60%, concentric LVH and impaired diastolic relaxation -C/W Carvedilol 25mg Q12h Hypertension -Stable, well controlled -Continue Hydralazine 50mg PO Q8h History of NSTEMI on 04/02/17 -Continue with Coreg -ASA and Plavix held due to poss GI bleeding DVT prophylaxis -SCDs for now -Encouraged ambulation -Anticoags held due to suspected GI bleeding
[2017-09-23 10:27] LABS: BASO % 0.7 % (0.0-2.0); EOS # 0.2 K/uL (0.0-0.7); EOS % 3.5 % (0.0-4.0); HEMATOCRIT 25.6 % (35.0-51.0); LYMPH # 1.5 K/uL (1.0-4.3); LYMPH % 21.8 % (20.0-40.0); MEAN CELL VOLUME 96.8 fl (80.0-94.0); MEAN PLATELET VOLUME 7.9 fl (7.2-11.7); MONO # 0.7 K/uL (0.0-0.8); MONO % 10.3 % (0.0-10.0); NEUT # 4.3 K/uL (1.8-7.0); NEUT % 63.7 % (50.0-75.0); RED CELL DISTRIBUTION WIDTH 18.2 % (11.5-14.5); WHITE BLOOD COUNT 6.8 K/uL (4.8-10.8)
[2017-09-23 10:33] LABS: ALB/GLOB RATIO 1.2 (1.0-2.1); BILIRUBIN,TOTAL 0.3 mg/dl (0.2-1.3); CALCIUM 8.2 mg/dL (8.4-10.2); MAGNESIUM 2.3 MG/DL (1.6-2.3); PHOSPHOROUS 6.3 mg/dl (2.5-4.5); POTASSIUM 5.5 MMOL/L (3.6-5.0); TOTAL PROTEIN 7.1 G/DL (6.3-8.2)
--- NOTE | 2017-09-23 10:43 | RAD ---
HISTORY: shortness of breath COMPARISON: Chest radiographs 09/10/2017. TECHNIQUE: Chest PA and lateral FINDINGS: LUNGS: No acute alveolitis bilaterally. Chronic interstitial pulmonary changes are again seen diffusely bilaterally. PLEURA: No significant pleural effusion identified. No pneumothorax apparent. CARDIOVASCULAR: Normal. OSSEOUS STRUCTURES: No significant abnormalities. VISUALIZED UPPER ABDOMEN: Normal. OTHER FINDINGS: None. IMPRESSION: No definite acute interval findings bilaterally. Chronic interstitial pulmonary disease again seen diffusely. Further detailed characterization require then follow-up CT is advised.
[2017-09-23 10:44] LABS: TROPONIN I 0.075 ng/mL (0.00-0.120)
[2017-09-23] MEDS: SEVELAMER CARBONATE PO SCH ×2 (13:19→17:49)
[2017-09-23] MEDS: Fluticasone-Salmeterol 500-50mcg Diskus IH SCH (22:17)
--- NOTE | 2017-09-24 00:13 | CP.PCM.CON ---
History of Present Illness - History of Present Illness History of Present Illness: 67 yo male who went to [facility] c/o dizzyness and signed out AMA and came to [facility].Has ESRD and is on dialysis. Patient states that lately he had been having dark stools.In the ER the stool was positive for occult blood. Denies hematemesis and hematochezia. Review of Systems - Constitutional Constitutional: absent: Chills - EENT Eyes: absent: Blurred Vision Ears: absent: Decreased Hearing Nose/Mouth/Throat: absent: Epistaxis - Cardiovascular Cardiovascular: absent: Chest Pain - Respiratory Respiratory: absent: Cough - Gastrointestinal Gastrointestinal: absent: Abdominal Pain - Genitourinary Genitourinary: absent: Change in Urinary Stream Past Patient History - Infectious Disease Hx of Infectious Diseases: None - Past Medical History & Family History Past Medical History?: Yes - Past Social History Smoking Status: Former Smoker - CARDIAC Hx Congestive Heart Failure: Yes Hx Hypertension: Yes - PULMONARY Hx Chronic Obstructive Pulmonary Disease (COPD): Yes Hx Pneumonia: Yes - NEUROLOGICAL Hx Seizures: Yes - HEENT Hx HEENT Problems: No - RENAL Hx Chronic Kidney Disease: Yes - ENDOCRINE/METABOLIC Hx Endocrine Disorders: No - HEMATOLOGICAL/ONCOLOGICAL Hx Anemia: Yes Hx Human Immunodeficiency Virus (HIV): No - INTEGUMENTARY Hx Dermatological Problems: No - MUSCULOSKELETAL/RHEUMATOLOGICAL Hx Arthritis: Yes - GASTROINTESTINAL Hx Gastrointestinal Disorders: Yes Hx Hemorrhoids: Yes - GENITOURINARY/GYNECOLOGICAL Hx Genitourinary Disorders: No - PSYCHIATRIC Hx Anxiety: Yes Hx Depression: Yes - SURGICAL HISTORY Hx Coronary Stent: No - ANESTHESIA Hx Anesthesia: Yes Hx Anesthesia Reactions: No Hx Malignant Hyperthermia: No Meds Allergies/Adverse Reactions: Allergies Allergy/AdvReac Type Severity Reaction Status Date / Time sulfamethoxazole Allergy RASH Verified 07/31/17 07:39 [From ] trimethoprim [From ] Allergy RASH Verified 07/31/17 07:39 - Medications Medications: Current Medications Calcium Acetate (Phoslo) 1,334 mg PO TID [facility] Last Admin: 09/23/17 17:49 Dose: 1,334 mg Carvedilol (Coreg) 25 mg PO Q12 [facility] Last Admin: 09/23/17 23:03 Dose: 25 mg Citalopram Hydrobromide (Celexa) 20 mg PO DAILY [facility] Home Med (Sevelamer Carbonate [Renvela]) 2 tab PO TID [facility] Last Admin: 09/23/17 17:49 Dose: 2 tab Hydralazine HCl (Apresoline) 50 mg PO Q8 [facility] Last Admin: 09/23/17 17:22 Dose: Not Given Fluticasone/Salmeterol (Advair Diskus 500/50) 1 puff IH Q12 [facility] Last Admin: 09/23/17 22:17 Dose: 1 puff Vitamin B Complex/Vit C/Folic Acid (Nephro-Yemi) 1 tab PO DAILY [facility] Physical Exam - Head Exam Head Exam: ATRAUMATIC - Eye Exam Eye Exam: Normal appearance - ENT Exam ENT Exam: Mucous Membranes Moist - Respiratory Exam Respiratory Exam: Clear to Auscultation Bilateral - Cardiovascular Exam Cardiovascular Exam: REGULAR RHYTHM, +S1, +S2 - GI/Abdominal Exam GI & Abdominal Exam: Normal Bowel Sounds, Soft. absent: Tenderness Results - Vital Signs Recent Vital Signs: Last Vital Signs Temp 97.9 F 09/23/17 22:00 Pulse 79 09/23/17 23:03 Resp 18 09/23/17 22:00 BP 122/59 L 09/23/17 23:03 Pulse Ox 98 09/23/17 22:00 - Labs Result Diagrams: 09/23/17 09:49 09/23/17 09:49 Labs: Laboratory Results - last 24 hr 09/23/17 09/23/17 09/23/17 09:49 09:49 12:20 WBC 6.8 RBC 2.65 L Hgb 8.5 L Hct 25.6 L MCV 96.8 H MCH 32.0 H MCHC 33.0 RDW 18.2 H Plt Count 195 MPV 7.9 Neut % (Auto) 63.7 Lymph % (Auto) 21.8 [place] % (Auto) 10.3 H Eos % (Auto) 3.5 Baso % (Auto) 0.7 Neut # 4.3 Lymph # 1.5 [place] # 0.7 Eos # 0.2 Baso # 0.0 Sodium 140 Potassium 5.5 H Chloride 98 Carbon Dioxide 27 Anion Gap 21 H BUN 74 H Creatinine 7.6 H* Est GFR ( Amer) 9 Est GFR (Non-Af Amer) 7 Random Glucose 82 Calcium 8.2 L Phosphorus 6.3 H Magnesium 2.3 Total Bilirubin 0.3 AST 24 ALT 26 Alkaline Phosphatase 62 Total Creatine Kinase 55 CK-MB (Mass) 0.87 Troponin I 0.0750 Total Protein 7.1 Albumin 3.9 Globulin 3.2 Albumin/Globulin Ratio 1.2 Lipase 75 Blood Type A POSITIVE Antibody Screen Negative BBK History Checked Patient has bt 09/23/17 20:16 WBC RBC Hgb Hct MCV MCH MCHC RDW Plt Count MPV Neut % (Auto) Lymph % (Auto) [place] % (Auto) Eos % (Auto) Baso % (Auto) Neut # Lymph # [place] # Eos # Baso # Sodium Potassium Chloride Carbon Dioxide Anion Gap BUN Creatinine Est GFR ( Amer) Est GFR (Non-Af Amer) Random Glucose Calcium Phosphorus Magnesium Total Bilirubin AST ALT Alkaline Phosphatase Total Creatine Kinase CK-MB (Mass) Troponin I 0.0630 Total Protein Albumin Globulin Albumin/Globulin Ratio Lipase Blood Type Antibody Screen BBK History Checked Assessment & Plan (1) GI bleed Assessment and Plan: Occult GI bleed in patient with CKD. R/o ulcer, gastritis, mass. Upper endoscopy Monday. Continue protonix for now. Status: Acute - Date & Time Date: 09/30/17 Time: 23:00
[2017-09-24 07:34] LABS: BASO % 0.9 % (0.0-2.0); EOS # 0.3 K/uL (0.0-0.7); EOS % 4.7 % (0.0-4.0); LYMPH # 1.5 K/uL (1.0-4.3); LYMPH % 28.6 % (20.0-40.0); MEAN CELL VOLUME 95.7 fl (80.0-94.0); MEAN CORPUSCULAR HEMOGLOBIN 32.5 pg (27.0-31.0); MEAN PLATELET VOLUME 7.4 fl (7.2-11.7); MONO # 0.6 K/uL (0.0-0.8); MONO % 11.4 % (0.0-10.0); NEUT # 2.9 K/uL (1.8-7.0); NEUT % 54.4 % (50.0-75.0); NRBC % 0.3 % (0.0-0.0); RED CELL DISTRIBUTION WIDTH 18.2 % (11.5-14.5); WHITE BLOOD COUNT 5.4 K/uL (4.8-10.8)
[2017-09-24 07:43] LABS: PARTIAL THROMBOPLASTIN TIME 27.1 Seconds (25.6-37.1)
[2017-09-24 07:45] LABS: POTASSIUM 4.4 MMOL/L (3.6-5.0)
[2017-09-24] MEDS: Fluticasone-Salmeterol 500-50mcg Diskus IH SCH ×2 (08:43→20:32)
[2017-09-24] MEDS: Multivitamin Vitamin B Complex (Nephro-Vite) Tab PO SCH (08:44)
[2017-09-24] MEDS: SEVELAMER CARBONATE PO SCH ×3 (08:47→17:21)
--- NOTE | 2017-09-24 09:48 | CP.PCM.PN ---
Subjective - Date & Time of Evaluation Date of Evaluation: 09/24/17 Time of Evaluation: 09:30 - Subjective Subjective: Pt seen and examined this AM. Reports uneventful night. Reports good sleep. Tolerating PO intact. Denies headache, dizziness, chest pain, dyspnea, fever, chills. Denies nausea, vomiting, abdominal pain, BRBPR or melena. Objective - Vital Signs/Intake and Output Vital Signs (last 24 hours): Temp Pulse Resp BP Pulse Ox 97.9 F 71 18 113/47 L 98 09/24/17 08:00 09/24/17 09:00 09/24/17 08:00 09/24/17 08:44 09/24/17 08:00 - Medications Medications: Current Medications Calcium Acetate (Phoslo) 1,334 mg PO TID [facility] Last Admin: 09/24/17 08:45 Dose: 1,334 mg Carvedilol (Coreg) 25 mg PO Q12 [facility] Last Admin: 09/24/17 08:44 Dose: Not Given Citalopram Hydrobromide (Celexa) 20 mg PO DAILY [facility] Last Admin: 09/24/17 08:43 Dose: 20 mg Home Med (Sevelamer Carbonate [Renvela]) 2 tab PO TID [facility] Last Admin: 09/24/17 08:47 Dose: 2 tab Hydralazine HCl (Apresoline) 50 mg PO Q8 [facility] Last Admin: 09/24/17 08:43 Dose: Not Given Fluticasone/Salmeterol (Advair Diskus 500/50) 1 puff IH Q12 [facility] Last Admin: 09/24/17 08:43 Dose: 1 puff Vitamin B Complex/Vit C/Folic Acid (Nephro-Yemi) 1 tab PO DAILY [facility] Last Admin: 09/24/17 08:44 Dose: 1 tab - Labs Labs: 09/24/17 06:10 09/24/17 06:10 PT 12.8 Seconds (9.8-13.1) 09/24/17 06:10 INR 1.1 (0.9-1.2) 09/24/17 06:10 APTT 27.1 Seconds (25.6-37.1) 09/24/17 06:10 - Constitutional Appears: Non-toxic, No Acute Distress - Head Exam Head Exam: ATRAUMATIC, NORMAL INSPECTION, NORMOCEPHALIC - ENT Exam ENT Exam: Mucous Membranes Moist - Neck Exam Neck Exam: Full ROM, Normal Inspection - Respiratory Exam Respiratory Exam: Clear to Ausculation Bilateral. absent: Rales, Rhonchi, Wheezes - Cardiovascular Exam Cardiovascular Exam: REGULAR RHYTHM, RRR, +S1, +S2. absent: Gallop - GI/Abdominal Exam GI & Abdominal Exam: Soft, Normal Bowel Sounds. absent: Distended, Guarding, Tenderness, Rebound - Extremities Exam Extremities Exam: Normal Capillary Refill, Normal Inspection. absent: Calf Tenderness, Pedal Edema - Neurological Exam Neurological Exam: Alert, Awake, Normal Gait, Oriented x3 - Psychiatric Exam Psychiatric exam: Normal Affect, Normal Mood Assessment and Plan - Assessment and Plan (Free Text) Assessment: 67 yo male PMH HTN, COPD, ESRD admitted to [facility] for dark stool and work up for Acute GI bleeding. 1. Dark stools/Positive Guaiac -Suspected UGI bleeding -Patient stable. VS WNL -H&H 8.1/24.0 -Repeat CBC tonight, will transfuse if Hb <8. -GI consult appreciated: Dr Ignacio. -EGD scheduled tomorrow. -Continue Protonix 40 mg IVP BID -ASA, Plavix held -INR WNL 2. Questionable Endocarditis -Patient was being treated for endocarditis at [facility] -Afebrile, WBC and vitals WNL -Hold abx for now Vanco and Zosyn -Previous hosp admission with VRE bacteremia previously resolved -Blood cx: no growth after 24 hrs. 3. 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 -Nephrology (Dr. Sandoval) consult appreciated. 4. Systolic Chronic Heart failure, stable -Last echo performed last admission reveals normal EF of 60%, concentric LVH and impaired diastolic relaxation -C/W Carvedilol 25mg Q12h 5. Hypertension -Stable, well controlled -Continue Hydralazine 50mg PO Q8h 6. History of NSTEMI on 04/02/17 -Continue with Coreg -ASA and Plavix held due to poss GI bleeding 7. DVT prophylaxis -SCDs for now -Encouraged ambulation -Anticoags held due to suspected GI bleeding 8. Diet: NPO after midnight
--- NOTE | 2017-09-24 11:59 | CP.PCM.CON ---
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 He apparently went to [facility] at first - was admitted for GIB and ? endocarditits. he was than eloped based on food that was not being provided to him. He received HD yesterday. He states his SOB is improved. He denies any n/v. He apparently has been having dark stools. He complains of some posterior headache. ROS: a full detailed ROS is negative except as above pmH: ESRD TTS HTN CHF COPD Past Patient History - Infectious Disease Hx of Infectious Diseases: None - Past Medical History & Family History Past Medical History?: Yes - Past Social History Smoking Status: Former Smoker - CARDIAC Hx Congestive Heart Failure: Yes Hx Hypertension: Yes - PULMONARY Hx Chronic Obstructive Pulmonary Disease (COPD): Yes Hx Pneumonia: Yes - NEUROLOGICAL Hx Seizures: Yes - HEENT Hx HEENT Problems: No - RENAL Hx Chronic Kidney Disease: Yes - ENDOCRINE/METABOLIC Hx Endocrine Disorders: No - HEMATOLOGICAL/ONCOLOGICAL Hx Anemia: Yes Hx Human Immunodeficiency Virus (HIV): No - INTEGUMENTARY Hx Dermatological Problems: No - MUSCULOSKELETAL/RHEUMATOLOGICAL Hx Arthritis: Yes - GASTROINTESTINAL Hx Gastrointestinal Disorders: Yes Hx Hemorrhoids: Yes - GENITOURINARY/GYNECOLOGICAL Hx Genitourinary Disorders: No - PSYCHIATRIC Hx Anxiety: Yes Hx Depression: Yes - SURGICAL HISTORY Hx Coronary Stent: No - ANESTHESIA Hx Anesthesia: Yes Hx Anesthesia Reactions: No Hx Malignant Hyperthermia: No Meds Allergies/Adverse Reactions: Allergies Allergy/AdvReac Type Severity Reaction Status Date / Time sulfamethoxazole Allergy RASH Verified 07/31/17 07:39 [From ] trimethoprim [From ] Allergy RASH Verified 07/31/17 07:39 - Medications Medications: Current Medications Calcium Acetate (Phoslo) 1,334 mg PO TID [facility] Last Admin: 09/24/17 08:45 Dose: 1,334 mg Carvedilol (Coreg) 25 mg PO Q12 [facility] Last Admin: 09/24/17 08:44 Dose: Not Given Citalopram Hydrobromide (Celexa) 20 mg PO DAILY [facility] Last Admin: 09/24/17 08:43 Dose: 20 mg Home Med (Sevelamer Carbonate [Renvela]) 2 tab PO TID [facility] Last Admin: 09/24/17 08:47 Dose: 2 tab Hydralazine HCl (Apresoline) 50 mg PO Q8 [facility] Last Admin: 09/24/17 08:43 Dose: Not Given Fluticasone/Salmeterol (Advair Diskus 500/50) 1 puff IH Q12 [facility] Last Admin: 09/24/17 08:43 Dose: 1 puff Vitamin B Complex/Vit C/Folic Acid (Nephro-Yemi) 1 tab PO DAILY [facility] Last Admin: 09/24/17 08:44 Dose: 1 tab Physical Exam - Constitutional Appears: Non-toxic - Head Exam Head Exam: ATRAUMATIC - ENT Exam ENT Exam: Normal Exam - Neck Exam Neck exam: Positive for: Normal Inspection - Respiratory Exam Respiratory Exam: NORMAL BREATHING PATTERN - Cardiovascular Exam Cardiovascular Exam: +S1, +S2 - GI/Abdominal Exam GI & Abdominal Exam: Normal Bowel Sounds - Exam Additional comments: no edema - Neurological Exam Neurological exam: Alert, Oriented x3 - Psychiatric Exam Psychiatric exam: Normal Affect, Normal Mood - Skin Skin Exam: Normal Color Results - Vital Signs Recent Vital Signs: Last Vital Signs Temp 97.9 F 09/24/17 08:00 Pulse 71 09/24/17 09:00 Resp 18 09/24/17 08:00 BP 113/47 L 09/24/17 08:44 Pulse Ox 98 09/24/17 08:00 - Labs Result Diagrams: 09/24/17 06:10 09/24/17 06:10 Labs: Laboratory Results - last 24 hr 09/23/17 09/23/17 09/24/17 12:20 20:16 06:10 WBC 5.4 RBC 2.51 L Hgb 8.1 L Hct 24.0 L MCV 95.7 H MCH 32.5 H MCHC 34.0 RDW 18.2 H Plt Count 188 MPV 7.4 Neut % (Auto) 54.4 Lymph % (Auto) 28.6 Crawford % (Auto) 11.4 H Eos % (Auto) 4.7 H Baso % (Auto) 0.9 Neut # 2.9 Lymph # 1.5 Crawford # 0.6 Eos # 0.3 Baso # 0.0 PT INR APTT Sodium Potassium Chloride Carbon Dioxide Anion Gap BUN Creatinine Est GFR ( Amer) Est GFR (Non-Af Amer) Random Glucose Calcium Troponin I 0.0630 Blood Type A POSITIVE Antibody Screen Negative BBK History Checked Patient has bt 09/24/17 09/24/17 06:10 06:10 WBC RBC Hgb Hct MCV MCH MCHC RDW Plt Count MPV Neut % (Auto) Lymph % (Auto) Crawford % (Auto) Eos % (Auto) Baso % (Auto) Neut # Lymph # Crawford # Eos # Baso # PT 12.8 INR 1.1 APTT 27.1 Sodium 139 Potassium 4.4 Chloride 97 L Carbon Dioxide 32 H Anion Gap 14 BUN 33 H Creatinine 4.7 H Est GFR ( Amer) 15 Est GFR (Non-Af Amer) 13 Random Glucose 81 Calcium 8.0 L Troponin I Blood Type Antibody Screen BBK History Checked Assessment & Plan - Assessment and Plan (Free Text) Assessment: ESRD / Hypertensive Nephropathy/ Acute on Chronic Systolic Heart Failure/ Anemia of Renal Disease/ 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
[2017-09-24 20:32] LABS: MEAN CELL VOLUME 98.8 fl (80.0-94.0); MEAN CORPUSCULAR HEMOGLOBIN 32.1 pg (27.0-31.0); MEAN CORPUSCULAR HGB CONC 32.5 g/dL (33.0-37.0); RED CELL DISTRIBUTION WIDTH 18.5 % (11.5-14.5); WHITE BLOOD COUNT 5.9 K/uL (4.8-10.8)
[2017-09-24] MEDS ORDERED: Calcium Carbonate 1,250 MG/5 ML SUSP PO PRN (20:34)
--- NOTE | 2017-09-25 07:40 | CP.PCM.PN ---
Subjective - Date & Time of Evaluation Date of Evaluation: 09/25/17 Time of Evaluation: 07:40 - Subjective Subjective: Pt seen and examine at bedside this morning. Pt reports no overnight events. Reports good night sleep. Denies abodminal pain, nausea, vomiting, headache, dizziness, chest pain or dyspnea. Pt reports no BM last night and this AM. Pt was on NPO for EGD today. Objective - Vital Signs/Intake and Output Vital Signs (last 24 hours): Temp Pulse Resp BP Pulse Ox 98.6 F 102 H 20 126/65 97 09/25/17 05:53 09/25/17 05:53 09/25/17 05:53 09/25/17 05:53 09/25/17 05:53 - Medications Medications: Current Medications Calcium Acetate (Phoslo) 1,334 mg PO TID [facility] Last Admin: 09/24/17 17:21 Dose: 1,334 mg Carvedilol (Coreg) 25 mg PO Q12 [facility] Last Admin: 09/24/17 20:32 Dose: 25 mg Citalopram Hydrobromide (Celexa) 20 mg PO DAILY [facility] Last Admin: 09/24/17 08:43 Dose: 20 mg Epoetin José Manuel (Procrit) 10,000 unit SC TTS [facility] Home Med (Sevelamer Carbonate [Renvela]) 2 tab PO TID [facility] Last Admin: 09/24/17 17:21 Dose: 2 tab Hydralazine HCl (Apresoline) 50 mg PO Q8 [facility] Last Admin: 09/25/17 01:10 Dose: 50 mg Pantoprazole Sodium (Protonix Inj) 40 mg IVP BID [facility] Last Admin: 09/24/17 17:21 Dose: 40 mg Fluticasone/Salmeterol (Advair Diskus 500/50) 1 puff IH Q12 [facility] Last Admin: 09/24/17 20:32 Dose: 1 puff Vitamin B Complex/Vit C/Folic Acid (Nephro-Yemi) 1 tab PO DAILY [facility] Last Admin: 09/24/17 08:44 Dose: 1 tab - Labs Labs: 09/24/17 20:17 09/24/17 06:10 PT 12.8 Seconds (9.8-13.1) 09/24/17 06:10 INR 1.1 (0.9-1.2) 09/24/17 06:10 APTT 27.1 Seconds (25.6-37.1) 09/24/17 06:10 - Constitutional Appears: Well, Non-toxic, No Acute Distress - ENT Exam ENT Exam: Mucous Membranes Moist - Neck Exam Neck Exam: Full ROM, Normal Inspection - Respiratory Exam Respiratory Exam: Clear to Ausculation Bilateral. absent: Rales, Rhonchi, Wheezes, Respiratory Distress - Cardiovascular Exam Cardiovascular Exam: REGULAR RHYTHM, RRR, +S1, +S2. absent: Gallop - GI/Abdominal Exam GI & Abdominal Exam: Soft, Normal Bowel Sounds. absent: Guarding, Tenderness, Rebound - Extremities Exam Extremities Exam: Normal Capillary Refill. absent: Calf Tenderness, Pedal Edema - Neurological Exam Neurological Exam: Alert, Awake, Oriented x3 - Psychiatric Exam Psychiatric exam: Normal Affect, Normal Mood Assessment and Plan - Assessment and Plan (Free Text) Assessment: 67 yo male PMH HTN, COPD, ESRD admitted to [facility] for dark stool and work up for Acute GI bleeding. s/p EGD today. 1. Dark stools/Positive Guaiac -Suspected GI bleeding -Patient stable. VS WNL -H&H 9.12/03.3 -GI consult appreciated: Dr Ignacio. -EGD shows few localized non-bleeding erosions in gastric fundus. Moderate inflammation characterized by granularity was found in second part of of the duodenum. -F/U on biopsy results. -Continue Protonix 40 mg IVP BID -ASA, Plavix held -INR WNL 2. Questionable Endocarditis -Patient was being treated for endocarditis at [facility] -Afebrile, WBC and vitals WNL -Vanco and Zosyn on hold. -Previous hosp admission with VRE bacteremia previously resolved -Blood cx: no growth after 24 hrs. 3. 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 -Nephrology (Dr. Sandoval) consult appreciated. 4. Systolic Chronic Heart failure, stable -Last echo performed last admission reveals normal EF of 60%, concentric LVH and impaired diastolic relaxation -C/W Carvedilol 25mg Q12h 5. Hypertension -Stable, well controlled -Continue Hydralazine 50mg PO Q8h 6. History of NSTEMI on 04/02/17 -Continue with Coreg -ASA and Plavix held due to poss GI bleeding 7. DVT prophylaxis -SCDs for now -Encouraged ambulation -Anticoags held due to suspected GI bleeding 8. Diet: Heart healthy diet
[2017-09-25] MEDS: Fluticasone-Salmeterol 500-50mcg Diskus IH SCH ×2 (09:17→21:32)
[2017-09-25] MEDS: Multivitamin Vitamin B Complex (Nephro-Vite) Tab PO SCH (09:18)
[2017-09-25] MEDS: SEVELAMER CARBONATE PO SCH (09:18)
[2017-09-25] MEDS ORDERED: Sodium Chloride 0.9% 250 ML IV ONE (10:58)
[2017-09-25] MEDS ORDERED: Lidocaine 2% MPF (5 ml) Inj ONE (11:38)
[2017-09-25] MEDS ORDERED: Propofol 10 mg/ml Inj (20 ML) ONE (11:38)
[2017-09-25 12:00] VITALS: RESP 20
[2017-09-25 12:53] LABS: HEMATOCRIT 28.3 % (35.0-51.0)
--- NOTE | 2017-09-25 16:07 | CP.PCM.PN ---
Subjective - Date & Time of Evaluation Date of Evaluation: 09/25/17 Time of Evaluation: 16:05 - Subjective Subjective: Follow up Nephrology Consultation Note Assessment: Stable ? GI bleed Hypertensive Chronic Kidney Disease (I12.0) End stage renal disease (N18.6) dependence on hemodialysis (Z99.2) (TTS) via AVF Anemia (D64.9), Hyperphosphatemia (E83.39), Secondary Hyperparathyroidism (E21.1 ), HTN (I12.0) hx of paucimmune vasculitis, CHF Plan: Will plan for HD monday as ordered. no acute need today. Continue with Nephrovite 1 tab/day. PRBC as needed for anemia. [place] epogen 83234 unit with HD Continue with phos binders BP control with meds as ordered. Patient not on RAAS noel, may consider to add if BP high but for now his BP appears to be on low side Glycemic control, Dialysis consistent diet Further work up/management as per primary team Dose meds/antibiotics (if needed) for ESRD status. Avoid fleets enema/magnesium based laxatives. Thanks for allowing me to participate in care of your patient. Will follow patient with you. Please call if any Qs Dr Darren Samano Office: [phone] Subjective: Noted events overnight. Patients feels okay. Denies chest pain, palpitation, shortness of breath, leg swelling. No urinary complaints Physical Examination: General Appearance: Comfortable, in no acute respiratory distress, co- operative. Vitals reviewed and noted as below Lungs: Normal respiratory rate/effort. Breath sounds bilateral equal and clear. has few rales at bases Heart: Normal rate. s1s2 normal. No rub or gallop. Extremities: no edema. Neurological: Patient is alert, awake and oriented to person, place and time. No focal deficit. Strength bilateral appropriate and equal Skin: Warm and dry. Normal turgor. No rash. Palpitation: Normal elasticity for age Abdomen: Abdomen is soft. Bowel sounds +. There is no abdominal tenderness, no guarding/rigidity or organomegaly : kidney or bladder not palpable Access: AVF Labs/imaging reviewed. Past medical history, past surgical history, family history, social history, allergy reviewed Objective - Vital Signs/Intake and Output Vital Signs (last 24 hours): Temp Pulse Resp BP Pulse Ox 97 F L 91 H 20 102/48 L 100 09/25/17 13:00 09/25/17 13:00 09/25/17 13:00 09/25/17 13:00 09/25/17 13:00 Intake and Output: 09/25/17 09/25/17 06:59 18:59 Intake Total 70 Balance 70 - Medications Medications: Current Medications Calcium Acetate (Phoslo) 1,334 mg PO TID [facility] Last Admin: 09/25/17 13:45 Dose: 1,334 mg Carvedilol (Coreg) 25 mg PO Q12 [facility] Last Admin: 09/25/17 09:17 Dose: Not Given Citalopram Hydrobromide (Celexa) 20 mg PO DAILY [facility] Last Admin: 09/25/17 09:17 Dose: Not Given Epoetin José Manuel (Procrit) 10,000 unit IV TTS [facility] Hydralazine HCl (Apresoline) 50 mg PO Q8 [facility] Last Admin: 09/25/17 09:17 Dose: Not Given Pantoprazole Sodium (Protonix Ec Tab) 40 mg PO DAILY [facility] Fluticasone/Salmeterol (Advair Diskus 500/50) 1 puff IH Q12 [facility] Last Admin: 09/25/17 09:17 Dose: Not Given Vitamin B Complex/Vit C/Folic Acid (Nephro-Yemi) 1 tab PO DAILY [facility] Last Admin: 09/25/17 09:18 Dose: Not Given - Labs Labs: 09/25/17 12:46 09/24/17 06:10 PT 12.8 Seconds (9.8-13.1) 09/24/17 06:10 INR 1.1 (0.9-1.2) 09/24/17 06:10 APTT 27.1 Seconds (25.6-37.1) 09/24/17 06:10
[2017-09-26 07:31] VITALS: BP 130/52; PULSE 110; TEMP 97.9; O2SAT 97
--- NOTE | 2017-09-26 07:42 | CP.PCM.PN ---
Subjective - Date & Time of Evaluation Date of Evaluation: 09/26/17 Time of Evaluation: 07:35 - Subjective Subjective: Pt was seen and examine at bedside this morning. Denies overnight events. Slept well last night and tolerating PO. Had BM last night. Pt is scheduled to go to dialysis today. Denies any blood in stool or melena. Pt had EGD yesterday. Denies abdominal pain, nausea, vomiting, headache, dizziness, chest pain or dyspnea. Objective - Vital Signs/Intake and Output Vital Signs (last 24 hours): Temp Pulse Resp BP Pulse Ox 97.9 F 110 H 20 130/52 L 97 09/26/17 07:31 09/26/17 07:31 09/26/17 07:31 09/26/17 07:31 09/26/17 07:31 - Medications Medications: Current Medications Calcium Acetate (Phoslo) 1,334 mg PO TID [facility] Last Admin: 09/25/17 17:47 Dose: 1,334 mg Carvedilol (Coreg) 25 mg PO Q12 [facility] Last Admin: 09/25/17 21:32 Dose: 25 mg Citalopram Hydrobromide (Celexa) 20 mg PO DAILY [facility] Last Admin: 09/25/17 09:17 Dose: Not Given Epoetin José Manuel (Procrit) 10,000 unit IV TTS [facility] Hydralazine HCl (Apresoline) 50 mg PO Q8 [facility] Last Admin: 09/26/17 01:45 Dose: 50 mg Pantoprazole Sodium (Protonix Ec Tab) 40 mg PO DAILY [facility] Fluticasone/Salmeterol (Advair Diskus 500/50) 1 puff IH Q12 [facility] Last Admin: 09/25/17 21:32 Dose: 1 puff Vitamin B Complex/Vit C/Folic Acid (Nephro-Yemi) 1 tab PO DAILY [facility] Last Admin: 09/25/17 09:18 Dose: Not Given - Labs Labs: 09/25/17 12:46 09/24/17 06:10 PT 12.8 Seconds (9.8-13.1) 09/24/17 06:10 INR 1.1 (0.9-1.2) 09/24/17 06:10 APTT 27.1 Seconds (25.6-37.1) 09/24/17 06:10 - Constitutional Appears: Well, No Acute Distress - Head Exam Head Exam: ATRAUMATIC, NORMAL INSPECTION, NORMOCEPHALIC - ENT Exam ENT Exam: Mucous Membranes Moist - Neck Exam Neck Exam: Full ROM, Normal Inspection - Respiratory Exam Respiratory Exam: Clear to Ausculation Bilateral. absent: Rales, Rhonchi, Wheezes, Respiratory Distress - Cardiovascular Exam Cardiovascular Exam: REGULAR RHYTHM, RRR, +S1, +S2. absent: Gallop - GI/Abdominal Exam GI & Abdominal Exam: Soft, Normal Bowel Sounds. absent: Guarding, Tenderness - Extremities Exam Extremities Exam: Normal Capillary Refill, Normal Inspection. absent: Calf Tenderness, Pedal Edema - Neurological Exam Neurological Exam: Alert, Awake, Oriented x3 - Psychiatric Exam Psychiatric exam: Normal Affect, Normal Mood - Skin Skin Exam: Normal Color. absent: Rash Assessment and Plan - Assessment and Plan (Free Text) Assessment: 67 yo male PMH HTN, COPD, ESRD admitted to [facility] for dark stool and work up for acute GI bleeding. Dr. Ignacio was consulted and had EGD yesterday showed gastritis but no acute bleeding. Pt is asymptomatic today. Has stable vital signs. H&H 9.3/27.8. 1. Dark stools/Positive Guaiac -Gastritis, no acute bleeding seen in EGD. -Patient stable. VS WNL -H&H 9.3/27.8 -GI consult appreciated: Dr Ignacio. -EGD shows few localized non-bleeding erosions in gastric fundus. Moderate inflammation characterized by granularity was found in second part of of the duodenum. -F/U on biopsy results. -Continue Protonix 40 mg po daily. -ASA, Plavix held -INR WNL 2. Questionable Endocarditis -Patient was being treated for endocarditis at [facility] -Afebrile, WBC and vitals WNL -Vanco and Zosyn on hold. -Previous hosp admission with VRE bacteremia previously resolved -Blood cx: no growth after 48 hrs. 3. 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 -Nephrology (Dr. Sandoval) consult appreciated. -Dialysis today. 4. Systolic Chronic Heart failure, stable -Last echo performed last admission reveals normal EF of 60%, concentric LVH and impaired diastolic relaxation -C/W Carvedilol 25mg Q12h 5. Hypertension -Stable, well controlled -Continue Hydralazine 50mg PO Q8h 6. History of NSTEMI on 04/02/17 -Continue with Coreg -ASA and Plavix held due to poss GI bleeding 7. DVT prophylaxis -SCDs for now -Encouraged ambulation -Anticoags held due to suspected GI bleeding 8. Diet: Heart healthy diet
[2017-09-26 08:59] LABS: HEMATOCRIT 27.8 % (35.0-51.0); MEAN CELL VOLUME 98.5 fl (80.0-94.0); MEAN CORPUSCULAR HEMOGLOBIN 32.9 pg (27.0-31.0); MEAN CORPUSCULAR HGB CONC 33.4 g/dL (33.0-37.0); RED CELL DISTRIBUTION WIDTH 18.9 % (11.5-14.5); WHITE BLOOD COUNT 7.3 K/uL (4.8-10.8)
[2017-09-26] MEDS ORDERED: EPOETIN ALFA 10,000 UNIT/ML ML IV SCH (09:00)
[2017-09-26] MEDS ORDERED: Pantoprazole 40 mg EC Tab PO SCH (09:00)
[2017-09-26] MEDS ORDERED: EPOETIN ALFA 10,000 UNIT/ML ML SC SCH (09:00)
--- NOTE | 2017-09-26 09:01 | CP.PCM.PN ---
<Aruna Aragon - Last Filed: 09/26/17 09:16> Subjective - Date & Time of Evaluation Date of Evaluation: 09/26/17 Time of Evaluation: 08:59 - Subjective Subjective: GI Pt s&e. NAEON. Pt underwent EGD yesterday. Gastritis. Tolerating diet. Denies F/ C/N/V/D/CP/SOB/hematochezia. Objective - Vital Signs/Intake and Output Vital Signs (last 24 hours): Temp Pulse Resp BP Pulse Ox 97.9 F 110 H 20 130/52 L 97 09/26/17 07:31 09/26/17 07:31 09/26/17 07:31 09/26/17 07:31 09/26/17 07:31 - Medications Medications: Current Medications Calcium Acetate (Phoslo) 1,334 mg PO TID [facility] Last Admin: 09/25/17 17:47 Dose: 1,334 mg Carvedilol (Coreg) 25 mg PO Q12 [facility] Last Admin: 09/25/17 21:32 Dose: 25 mg Citalopram Hydrobromide (Celexa) 20 mg PO DAILY [facility] Last Admin: 09/25/17 09:17 Dose: Not Given Epoetin José Manuel (Procrit) 10,000 unit IV TTS [facility] Hydralazine HCl (Apresoline) 50 mg PO Q8 [facility] Last Admin: 09/26/17 01:45 Dose: 50 mg Pantoprazole Sodium (Protonix Ec Tab) 40 mg PO DAILY [facility] Fluticasone/Salmeterol (Advair Diskus 500/50) 1 puff IH Q12 [facility] Last Admin: 09/25/17 21:32 Dose: 1 puff Vitamin B Complex/Vit C/Folic Acid (Nephro-Yemi) 1 tab PO DAILY [facility] Last Admin: 09/25/17 09:18 Dose: Not Given - Labs Labs: 09/25/17 12:46 09/24/17 06:10 PT 12.8 Seconds (9.8-13.1) 09/24/17 06:10 INR 1.1 (0.9-1.2) 09/24/17 06:10 APTT 27.1 Seconds (25.6-37.1) 09/24/17 06:10 - Constitutional Appears: No Acute Distress - Head Exam Head Exam: ATRAUMATIC, NORMAL INSPECTION, NORMOCEPHALIC - Eye Exam Eye Exam: EOMI, Normal appearance, PERRL Pupil Exam: NORMAL ACCOMODATION, PERRL - ENT Exam ENT Exam: Mucous Membranes Moist, Normal Exam - Neck Exam Neck Exam: Full ROM, Normal Inspection. absent: Lymphadenopathy - Respiratory Exam Respiratory Exam: Clear to Ausculation Bilateral, NORMAL BREATHING PATTERN - Cardiovascular Exam Cardiovascular Exam: REGULAR RHYTHM, +S1, +S2. absent: Murmur - GI/Abdominal Exam GI & Abdominal Exam: Soft, Normal Bowel Sounds. absent: Distended, Firm, Guarding, Tenderness - Extremities Exam Extremities Exam: Full ROM, Normal Capillary Refill, Normal Inspection. absent : Joint Swelling, Pedal Edema - Back Exam Back Exam: NORMAL INSPECTION - Neurological Exam Neurological Exam: Alert, Awake, CN II-XII Intact, Normal Gait, Oriented x3 - Psychiatric Exam Psychiatric exam: Normal Affect, Normal Mood - Skin Skin Exam: Dry, Intact, Normal Color, Warm Assessment and Plan - Assessment and Plan (Free Text) Assessment: Gastritis POD1 s/p EGD -REgular diet -Diet education: No drinking, no smoking, no caffein, No NSAIDs -Please reconsult as needed. DW Dr. Ignacio <Quentin Ignacio - Last Filed: 09/26/17 14:55> Objective - Vital Signs/Intake and Output Vital Signs (last 24 hours): Temp Pulse Resp BP Pulse Ox 97.9 F 110 H 20 130/52 L 97 09/26/17 07:31 09/26/17 07:31 09/26/17 07:31 09/26/17 07:31 09/26/17 07:31 - Medications Medications: Current Medications Calcium Acetate (Phoslo) 1,334 mg PO TID [facility] Last Admin: 09/26/17 09:34 Dose: 1,334 mg Carvedilol (Coreg) 25 mg PO Q12 [facility] Last Admin: 09/25/17 21:32 Dose: 25 mg Citalopram Hydrobromide (Celexa) 20 mg PO DAILY [facility] Last Admin: 09/26/17 09:34 Dose: 20 mg Epoetin José Manuel (Procrit) 10,000 unit IV TTS [facility] Hydralazine HCl (Apresoline) 50 mg PO Q8 [facility] Last Admin: 09/26/17 01:45 Dose: 50 mg Pantoprazole Sodium (Protonix Ec Tab) 40 mg PO DAILY [facility] Last Admin: 09/26/17 09:33 Dose: 40 mg Fluticasone/Salmeterol (Advair Diskus 500/50) 1 puff IH Q12 [facility] Last Admin: 09/26/17 09:33 Dose: 1 puff Vitamin B Complex/Vit C/Folic Acid (Nephro-Yemi) 1 tab PO DAILY [facility] Last Admin: 09/26/17 09:34 Dose: 1 tab - Labs Labs: 09/26/17 08:31 09/24/17 06:10 PT 12.8 Seconds (9.8-13.1) 09/24/17 06:10 INR 1.1 (0.9-1.2) 09/24/17 06:10 APTT 27.1 Seconds (25.6-37.1) 09/24/17 06:10 Assessment and Plan (1) GI bleed Status: Acute - Assessment and Plan (Free Text) Assessment: As noted above, no more vomiting and doing well clinically.
[2017-09-26] MEDS: Fluticasone-Salmeterol 500-50mcg Diskus IH SCH (09:33)
[2017-09-26] MEDS: Multivitamin Vitamin B Complex (Nephro-Vite) Tab PO SCH (09:34)
--- NOTE | 2017-09-26 10:43 | CP.PCM.PN ---
Subjective - Date & Time of Evaluation Date of Evaluation: 09/26/17 Time of Evaluation: 10:42 - Subjective Subjective: Follow up Nephrology Consultation Note Assessment: Stable ? GI bleed due to gastritis s/p EGD Hypertensive Chronic Kidney Disease (I12.0) End stage renal disease (N18.6) dependence on hemodialysis (Z99.2) (TTS) via AVF Anemia (D64.9), Hyperphosphatemia (E83.39), Secondary Hyperparathyroidism (E21.1 ), HTN (I12.0) hx of paucimmune vasculitis, CHF Plan: Will plan for HD today as ordered. Continue with Nephrovite 1 tab/day. PRBC as needed for anemia. [place] [id number] unit with HD Continue with phos binders BP control with meds as ordered. Patient not on RAAS noel, may consider to add if BP high but for now his BP is controlled Glycemic control, Dialysis consistent diet Further work up/management as per primary team Dose meds/antibiotics (if needed) for ESRD status. Avoid fleets enema/magnesium based laxatives. Thanks for allowing me to participate in care of your patient. Will follow patient with you. Please call if any Qs. d/w team. pt stable for d/c from renal perspective Dr Draren Samano Office: [phone] Subjective: Noted events overnight. Patients feels okay. Denies chest pain, palpitation, shortness of breath, leg swelling. No urinary complaints. no GI complaints Physical Examination: General Appearance: Comfortable, in no acute respiratory distress, co- operative. Vitals reviewed and noted as below Lungs: Normal respiratory rate/effort. Breath sounds bilateral equal and clear. has few rales at bases b/l Heart: Normal rate. s1s2 normal. No rub or gallop. Extremities: no edema. Neurological: Patient is alert, awake and oriented to person, place and time. No focal deficit. Strength bilateral appropriate and equal Skin: Warm and dry. Normal turgor. No rash. Palpitation: Normal elasticity for age Abdomen: Abdomen is soft. Bowel sounds +. There is no abdominal tenderness, no guarding/rigidity or organomegaly : kidney or bladder not palpable Access: AVF Labs/imaging reviewed. Past medical history, past surgical history, family history, social history, allergy reviewed Objective - Vital Signs/Intake and Output Vital Signs (last 24 hours): Temp Pulse Resp BP Pulse Ox 97.9 F 110 H 20 130/52 L 97 09/26/17 07:31 09/26/17 07:31 09/26/17 07:31 09/26/17 07:31 09/26/17 07:31 - Medications Medications: Current Medications Calcium Acetate (Phoslo) 1,334 mg PO TID [facility] Last Admin: 09/26/17 09:34 Dose: 1,334 mg Carvedilol (Coreg) 25 mg PO Q12 [facility] Last Admin: 09/25/17 21:32 Dose: 25 mg Citalopram Hydrobromide (Celexa) 20 mg PO DAILY [facility] Last Admin: 09/26/17 09:34 Dose: 20 mg Epoetin José Manuel (Procrit) 10,000 unit IV TTS [facility] Hydralazine HCl (Apresoline) 50 mg PO Q8 [facility] Last Admin: 09/26/17 01:45 Dose: 50 mg Pantoprazole Sodium (Protonix Ec Tab) 40 mg PO DAILY [facility] Last Admin: 09/26/17 09:33 Dose: 40 mg Fluticasone/Salmeterol (Advair Diskus 500/50) 1 puff IH Q12 [facility] Last Admin: 09/26/17 09:33 Dose: 1 puff Vitamin B Complex/Vit C/Folic Acid (Nephro-Yemi) 1 tab PO DAILY [facility] Last Admin: 09/26/17 09:34 Dose: 1 tab - Labs Labs: 09/26/17 08:31 09/24/17 06:10 PT 12.8 Seconds (9.8-13.1) 09/24/17 06:10 INR 1.1 (0.9-1.2) 09/24/17 06:10 APTT 27.1 Seconds (25.6-37.1) 09/24/17 06:10
--- NOTE | 2017-09-26 11:29 | CP.PCM.DIS ---
Provider - Provider Date of Admission: 09/23/17 09:36 Attending physician: Aaliyah Knott MD Time Spent in preparation of Discharge (in minutes): 30 Hospital Course - Lab Results Lab Results: Micro Results 09/23/17 09:49 Blood Blood Culture - Preliminary NO GROWTH AFTER 48 HOURS Most Recent Lab Values WBC 7.3 K/uL (4.8-10.8) 09/26/17 08:31 RBC 2.82 Mil/uL (4.40-5.90) L 09/26/17 08:31 Hgb 9.3 g/dL (12.0-18.0) L 09/26/17 08:31 Hct 27.8 % (35.0-51.0) L 09/26/17 08:31 MCV 98.5 fl (80.0-94.0) H 09/26/17 08:31 MCH 32.9 pg (27.0-31.0) H 09/26/17 08:31 MCHC 33.4 g/dL (33.0-37.0) 09/26/17 08:31 RDW 18.9 % (11.5-14.5) H 09/26/17 08:31 Plt Count 274 K/uL (130-400) 09/26/17 08:31 MPV 7.4 fl (7.2-11.7) 09/24/17 06:10 Neut % (Auto) 54.4 % (50.0-75.0) 09/24/17 06:10 Lymph % (Auto) 28.6 % (20.0-40.0) 09/24/17 06:10 [place] % (Auto) 11.4 % (0.0-10.0) H 09/24/17 06:10 Eos % (Auto) 4.7 % (0.0-4.0) H 09/24/17 06:10 Baso % (Auto) 0.9 % (0.0-2.0) 09/24/17 06:10 Neut # 2.9 K/uL (1.8-7.0) 09/24/17 06:10 Lymph # 1.5 K/uL (1.0-4.3) 09/24/17 06:10 [place] # 0.6 K/uL (0.0-0.8) 09/24/17 06:10 Eos # 0.3 K/uL (0.0-0.7) 09/24/17 06:10 Baso # 0.0 K/uL (0.0-0.2) 09/24/17 06:10 PT 12.8 Seconds (9.8-13.1) 09/24/17 06:10 INR 1.1 (0.9-1.2) 09/24/17 06:10 APTT 27.1 Seconds (25.6-37.1) 09/24/17 06:10 Sodium 139 mmol/l (132-148) 09/24/17 06:10 Potassium 4.4 MMOL/L (3.6-5.0) 09/24/17 06:10 Chloride 97 mmol/L (98-107) L 09/24/17 06:10 Carbon Dioxide 32 mmol/L (22-30) H 09/24/17 06:10 Anion Gap 14 (10-20) 09/24/17 06:10 BUN 33 mg/dl (9-20) H 09/24/17 06:10 Creatinine 4.7 mg/dl (0.8-1.5) H 09/24/17 06:10 Est GFR ( Amer) 15 09/24/17 06:10 Est GFR (Non-Af Amer) 13 09/24/17 06:10 Random Glucose 81 mg/dL (75-110) 09/24/17 06:10 Calcium 8.0 mg/dL (8.4-10.2) L 09/24/17 06:10 Phosphorus 6.3 mg/dl (2.5-4.5) H 09/23/17 09:49 Magnesium 2.3 MG/DL (1.6-2.3) 09/23/17 09:49 Total Bilirubin 0.3 mg/dl (0.2-1.3) 09/23/17 09:49 AST 24 U/L (17-59) 09/23/17 09:49 ALT 26 U/L (21-72) 09/23/17 09:49 Alkaline Phosphatase 62 U/L (38-126) 09/23/17 09:49 Total Creatine Kinase 55 U/L (55-170) 09/23/17 09:49 CK-MB (Mass) 0.87 ng/mL (0.0-3.38) 09/23/17 09:49 Troponin I 0.0630 ng/mL (0.00-0.120) 09/23/17 20:16 Total Protein 7.1 G/DL (6.3-8.2) 09/23/17 09:49 Albumin 3.9 g/dL (3.5-5.0) 09/23/17 09:49 Globulin 3.2 gm/dL (2.2-3.9) 09/23/17 09:49 Albumin/Globulin Ratio 1.2 (1.0-2.1) 09/23/17 09:49 Lipase 75 U/L (23-300) 09/23/17 09:49 Hep Bs Antigen Negative (NEGATIVE) 09/23/17 22:10 Hep B Core IgM Ab Negative (NEGATIVE) 09/23/17 22:10 Hepatitis C Antibody Negative (NEGATIVE) 09/23/17 22:10 Blood Type A POSITIVE 09/23/17 12:20 Antibody Screen Negative 09/23/17 12:20 BBK History Checked Patient has bt 09/23/17 12:20 - Hospital Course Hospital Course: 67 yo male PMH HTN, COPD, ESRD (dialysis on ) admitted to [facility] on for dark stool, fatigue and dizziness and work up for acute GI bleeding. Dr. Ignacio was consulted and had EGD on 09/26/17 which showed gastritis but no acute bleeding. Biopsy from EGD sent and to be followed outpatient and colonoscopy referral is needed as an outpatient. H&H today 9.3/27.8. Pt was admitted to [facility] for ?endocarditis work up but he left A on . Pt was under care of Dr. Benton at [facility]. Pt's urine cx and CXR are neg. Blood cx in 48 hrs is neg. Pt received vanco 1 gm and zosyn 3.75 gm for one day and stopped abx due neg workup and pt's stable vitals. Pt is sent home with the following medications and has appointment with Dr. Del Rio on 10/05/17 at 1 pm. Carvedilol 50 mg po bid Hydralazine 50 mg po bid Citalopram 20 mg po qd Plavix 75 mg po qd sevelamer 800 mg 2 tab po tid advair diskus 500/50; 1 puff bid B complex 1 mg cap po daily calcium acetate 667 mg po tid procrit IV - Date & Time of H&P Date of H&P: 09/26/17 Time of H&P: 08:43 Discharge Exam - Head Exam Head Exam: ATRAUMATIC, NORMAL INSPECTION, NORMOCEPHALIC Discharge Plan - Discharge Medications Prescriptions: B Complex W-C No.20/Folic Acid [Renal Caps Softgel] 1 mg PO DAILY 30 Days #30 capsule Calcium Acetate [Phoslo] 1,334 mg PO TID #90 capsule Carvedilol [Coreg] 50 mg PO BID #60 tab Citalopram Hydrobromide [Celexa] 20 mg PO DAILY 30 Days #30 tablet Fluticasone/Salmeterol 500/50 [Advair Diskus 500/50] 1 puff INH Q12 30 Days #1 puff hydrALAZINE [Apresoline] 50 mg PO BID #60 tab - Follow Up Plan Condition: FAIR Disposition: HOME/ ROUTINE Instructions: Endocarditis (DC), Hemodialysis (DC) Additional Instructions: resumir dialysis el [place] a las 10:30am y despues el sabado. Referrals: [facility] [place] [Outside]
== END 2017-09-26 17:17 | disposition home or self-care (01) | DRG 543 ==
LOC: H.ER 08:56 → H.ERHOLD 09:36 → H.TEL 11:51 → H.MEDSURG1 09-25 18:42
PROVIDERS: ADMIT Family Medicine Geriatric Medicine; ATTEND Family Medicine Geriatric Medicine
PROC: 5A1D70Z Performance of Urinary Filtration, Intermittent, Less than 6 Hours Per Day (ICD-10-PCS; principal; 2017-09-23)
PROC: 0DB98ZX Excision of Duodenum, Via Natural or Artificial Opening Endoscopic, Diagnostic (ICD-10-PCS; 2017-09-25)
DX: I38 Endocarditis, valve unspecified (principal); I50.23 Acute on chronic systolic (congestive) heart failure; N18.6 End stage renal disease; J44.9 Chronic obstructive pulmonary disease, unspecified; N25.81 Secondary hyperparathyroidism of renal origin; I13.2 Hypertensive heart and chronic kidney disease with heart failure and with stage 5 chronic kidney disease, or end stage renal disease; K92.1 Melena; E83.39 Other disorders of phosphorus metabolism; D64.9 Anemia, unspecified; I25.2 Old myocardial infarction; Z79.02 Long term (current) use of antithrombotics/antiplatelets; Z79.82 Long term (current) use of aspirin; Z79.899 Other long term (current) drug therapy; Z86.718 Personal history of other venous thrombosis and embolism; Z87.01 Personal history of pneumonia (recurrent); Z87.891 Personal history of nicotine dependence; Z99.2 Dependence on renal dialysis; F32.9 Major depressive disorder, single episode, unspecified; F41.9 Anxiety disorder, unspecified; I77.6 Arteritis, unspecified; K64.9 Unspecified hemorrhoids; M19.90 Unspecified osteoarthritis, unspecified site; R42 Dizziness and giddiness; G40.909 Epilepsy, unspecified, not intractable, without status epilepticus; R07.9 Chest pain, unspecified; R51 Headache; R53.1 Weakness; K29.80 Duodenitis without bleeding; K29.50 Unspecified chronic gastritis without bleeding

== ENCOUNTER 2017-10-12 14:39 | Inpatient (IN) | payer SELFPAY ==
[2017-10-12 14:40] VITALS: BMI 25.8
--- NOTE | 2017-10-12 15:22 | ED PDOC ---
HPI: Chest Pain Time Seen by Provider: 10/12/17 15:04 Chief Complaint (Nursing): Chest Pain Chief Complaint (Provider): CP, tachycardia History Per: Patient History/Exam Limitations: no limitations Onset/Duration Of Symptoms: Days Current Symptoms Are (Timing): Still Present Quality: "Pain" Associated Symptoms: Other (productive cough) Additional Complaint(s): 67 y/o M with PMhx of ESRD on HD TTS, HTN, CHF, presents to ED sent from [facility] after he presented for regular PCP appt and was found to be tachycardic. Patient also c/o CP for the past 5 days and productive cough. As per patient, he has been taking all his meds but didnt take them Today. CP does not radiates and is L/sternal. Patient states he has been producing greenish sputum. Afebrile. Denies dysuria, hematuria. C/O mild SOB but no fatigue. Patient went for HD this morning. Past Medical History Vital Signs: Last Vital Signs Temp 98 F 10/12/17 15:04 Pulse 130 H 10/12/17 15:04 Resp 20 10/12/17 15:04 BP 149/68 10/12/17 14:46 Pulse Ox 98 10/12/17 16:23 - Medical History PMH: Anemia, Anxiety, Arthritis, CHF, COPD, Depression, Deep Vein Thrombosis ( RUE), HTN, Pneumonia, End Stage Renal Disease, Chronic Kidney Disease, Seizures Denies: HIV - Surgical History Surgical History: Denies: Coronary Stent - Family History Family History: States: Unknown Family Hx - Living Arrangements Living Arrangements: Other (Homeless) - Immunization History Hx Tetanus Toxoid Vaccination: No Hx Influenza Vaccination: Yes Hx Pneumococcal Vaccination: Yes - Home Medications Home Medications: Ambulatory Orders Medication Instructions Recorded Clopidogrel [Plavix] 75 mg PO DAILY #30 07/03/17 Sevelamer Carbonate [Renvela] 2 tab PO TID 08/17/17 B Complex W-C No.20/Folic Acid 1 mg PO DAILY 30 Days #30 capsule 09/26/17 [Renal Caps Softgel] Calcium Acetate [Phoslo] 1,334 mg PO TID #90 capsule 09/26/17 Carvedilol [Coreg] 50 mg PO BID #60 tab 09/26/17 Citalopram Hydrobromide [Celexa] 20 mg PO DAILY 30 Days #30 tablet 09/26/17 Epoetin José Manuel [Procrit] 10,000 unit IV TTS ml 09/26/17 Fluticasone/Salmeterol 500/50 1 puff INH Q12 30 Days #1 puff 09/26/17 [Advair Diskus 500/50] hydrALAZINE [Apresoline] 50 mg PO BID #60 tab 09/26/17 - Allergies Allergies/Adverse Reactions: Allergies Allergy/AdvReac Type Severity Reaction Status Date / Time sulfamethoxazole Allergy RASH Verified 10/12/17 15:04 [From ] trimethoprim [From ] Allergy RASH Verified 10/12/17 15:04 Curb-65 Severity Score - CURB-65 Severity Score Confusion: No Bun >19mg/dl (>7mmol/L): Yes Respiratory Rate greater than/equal to 30: No Systolic BP <90 or Diastolic BP less than/equal 60mmHg: No Age >64: Yes Curb-65 Score: 2 Percentage 30-day mortality: 6.8% Wells Criteria for PE - Wells Criteria for Pulmonary Embolism Clinical Signs and Symptoms of DVT: No P.E is #1 Diagnosis, or Equally Likely: No Heart Rate >100: Yes Immobilization at least 3 days;Surgery previous 4 weeks: No Previous, objectively diagnosed PE or DVT: No Hemoptysis: No Malignancy w/treatment within 6 months, or palliative: No Total Score: 1.5 Review of Systems ROS Statement: Except As Marked, All Systems Reviewed And Found Negative Cardiovascular: Positive for: Chest Pain, Palpitations Respiratory: Positive for: Cough, Sputum Physical Exam - Reviewed Vital Signs Reviewed: Yes - Physical Exam Appears: Positive for: Non-toxic, No Acute Distress Skin: Positive for: Normal Color, Warm Eye Exam: Positive for: Normal appearance, PERRL Cardiovascular/Chest: Positive for: Regular Rate, Rhythm, Tachycardia. Negative for: Gallop Respiratory: Positive for: Rales (BB). Negative for: Wheezing, Respiratory Distress Gastrointestinal/Abdominal: Positive for: Soft. Negative for: Tenderness, Distended, Guarding, Rebound Extremity: Positive for: Pedal Edema (trace). Negative for: Tenderness, Calf Tenderness Neurologic/Psych: Positive for: Alert, Oriented. Negative for: Motor/Sensory Deficits (L/arm dyalisis port intact covered with dressing, clean and dry) - Laboratory Results Result Diagrams: 10/12/17 15:18 10/12/17 15:18 - ECG O2 Sat by Pulse Oximetry: 98 - Progress ED Course And Treament: Patient stable but tachy while on ED. CP resolved. Labs reviewed. EKG sinus tachy no acute ischemic changes, CXR no significant PE or infiltrates(pending report). Trponins elevated 0.21 and ProBNP 33517. ASA 325 mg once and Lasix 40 IVP once given at ED. Cardiology consulted and patient is going to be admitted to r/o ACS to telemetry unit. Medical Decision Making Medical Decision Making: CP r/o ACS F/U trops, CXR EKG no acute ischemic changes Tachycardia F/U CBC, CMP, CXR, ProBnp, BCx, UCx, UA Patient didnt take his meds today Afebrile, rest of VS WNL Disposition - Clinical Impression Clinical Impression: Chest pain, Atypical chest pain, Elevated troponin - Patient ED Disposition Is Patient to be Admitted: Yes - Disposition Disposition Time: 17:12 Condition: STABLE
[2017-10-12 15:30] LABS: BASO % 0.4 % (0.0-2.0); EOS # 0.2 K/uL (0.0-0.7); EOS % 3.1 % (0.0-4.0); HEMATOCRIT 26.6 % (35.0-51.0); LYMPH # 1.3 K/uL (1.0-4.3); LYMPH % 22.5 % (20.0-40.0); MEAN CELL VOLUME 101.1 fl (80.0-94.0); MEAN CORPUSCULAR HGB CONC 32.6 g/dL (33.0-37.0); MEAN PLATELET VOLUME 7.9 fl (7.2-11.7); MONO # 0.7 K/uL (0.0-0.8); MONO % 11.6 % (0.0-10.0); NEUT # 3.6 K/uL (1.8-7.0); NEUT % 62.4 % (50.0-75.0); NRBC % 0.1 % (0.0-0.0); RED CELL DISTRIBUTION WIDTH 18.8 % (11.5-14.5); WHITE BLOOD COUNT 5.7 K/uL (4.8-10.8)
--- NOTE | 2017-10-12 15:30 | ED PDOC ---
- Laboratory Results Result Diagrams: 10/12/17 15:18 10/12/17 15:18 - ECG O2 Sat by Pulse Oximetry: 98 (RA) Pulse Ox Interpretation: Normal Medical Decision Making Medical Decision Making: Time: 15:00 Patient is endorsed to me by Dr. Dioni Bhakta, pending ER work up and reevaluation. Labs reviewed, troponin is 0.21[place] [address]. Negative for flu Time: 16:16 Chest X-Ray FINDINGS: LUNGS: Somewhat heterogeneous lucency is seen this patient and with the left upper lobe / perihilar region and left base in a pattern suspicious for COPD. No alveolar infiltrate bilaterally however. A small nodule seen at the right base laterally dating back at least to prior chest radiograph 11/07/2015, potentially reflecting a calcified granuloma. PLEURA: Blunting of the left costophrenic sulcus is suspicious for a minimal chronic left pleural effusion or more likely, fibrosis. No right pleural effusion identified. No pneumothorax bilaterally. CARDIOVASCULAR: Normal. OSSEOUS STRUCTURES: No significant abnormalities. VISUALIZED UPPER ABDOMEN: Normal. OTHER FINDINGS: None. IMPRESSION: COPD again evident with likely chronic fibrosis blunts the left costophrenic sulcus lower chronic small pleural effusion is not excluded. No acute findings appreciable this time. Scribe Attestation: Documented by Minda Friedman, acting as a scribe for Ana Toussaint MD Provider Scribe Attestation: All medical record entries made by the Scribe were at my direction and personally dictated by me. I have reviewed the chart and agree that the record accurately reflects my personal performance of the history, physical exam, medical decision making, and the department course for this patient. I have also personally directed, reviewed, and agree with the discharge instructions and disposition. Disposition Counseled Patient/Family Regarding: Studies Performed, Diagnosis - Clinical Impression Clinical Impression: Chest pain, Atypical chest pain, Elevated troponin - POA Present On Arrival: None - Disposition Disposition: Admitted as In-Patient Disposition Time: 16:00 Condition: STABLE
[2017-10-12 15:56] LABS: ALB/GLOB RATIO 1.2 (1.0-2.1); BILIRUBIN,TOTAL 0.4 mg/dl (0.2-1.3); POTASSIUM 3.9 MMOL/L (3.6-5.0); TOTAL PROTEIN 7.1 G/DL (6.3-8.2)
[2017-10-12 16:00] LABS: TROPONIN I 0.21 ng/mL (0.00-0.120)
--- NOTE | 2017-10-12 16:18 | RAD ---
HISTORY: Tachycardia. Cough. CP COMPARISON: Chest radiographs 09/23/2017. TECHNIQUE: Chest PA and lateral FINDINGS: LUNGS: Somewhat heterogeneous lucency is seen this patient and with the left upper lobe/ perihilar region and left base in a pattern suspicious for COPD. No alveolar infiltrate bilaterally however. A small nodule seen at the right base laterally dating back at least to prior chest radiograph 11/07/2015, potentially reflecting a calcified granuloma. PLEURA: Blunting of the left costophrenic sulcus is suspicious for a minimal chronic left pleural effusion or more likely, fibrosis. No right pleural effusion identified. No pneumothorax bilaterally. CARDIOVASCULAR: Normal. OSSEOUS STRUCTURES: No significant abnormalities. VISUALIZED UPPER ABDOMEN: Normal. OTHER FINDINGS: None. IMPRESSION: COPD again evident with likely chronic fibrosis blunts the left costophrenic sulcus lower chronic small pleural effusion is not excluded. No acute findings appreciable this time.
[2017-10-12 17:44] LABS: RBC URINE 58 /hpf (0-3); URINE BILIRUBIN NEGATIVE (NEGATIVE); URINE BLOOD MODERATE (NEGATIVE); URINE COLOR YELLOW (YELLOW); URINE GLUCOSE (UA) 50 mg/dL (Normal); URINE KETONE NEGATIVE (NEGATIVE); URINE LEUKOCYTE ESTERASE MOD Leu/uL (Negative); URINE PROTEIN >=500 mg/dL (NEGATIVE); URINE UROBILINOGEN 0.2-1.0 mg/dL (0.2-1.0); WBC URINE 12 /hpf (0-5)
[2017-10-12] MEDS ORDERED: Albuterol-Ipratrop 3 mg / 0.5 (3 ml) UD INH PRN (19:06)
[2017-10-12] MEDS ORDERED: Albuterol-Ipratrop 3 mg / 0.5 (3 ml) UD INH STA (19:12)
--- NOTE | 2017-10-12 19:37 | CP.PCM.HP ---
History of Present Illness - History of Present Illness History of Present Illness: 67 y/o M with PMH of ESRD on HD TTS, HTN, COPD presents to ED after being seen in the [facility], with complaint of chest pain for past 5 days with worsening cough. Chest felt tight, and pain that was mostly left sided, would last for few seconds before resolving. No palpitations. At present in ED chest pain has resolved. No associated with activity. He has chronic cough, but noticed increase in sputum production over the past 5 days with increased dyspnea. Sputum is greenish color, no hemoptysis. Unsure if he has had fever or chills. No other complaints offered. Denies headache, nausea, vomiting, abdominal pain, diarrhea, constipation, pedal edema. He had dialysis today. PMD: [facility] PMHX: ESRD, HTN, COPD, ANCA Vasculitis, DVT of RUE, CHF with mild Diastolic dysfunction, preserved EF: 60-65%, mild aortic insufficiency. Medications: As per med rec Allergies: TMP/SMX Social: former smoker surgical : AV fistula Family hx denies No advanced directives Present on Admission - Present on Admission Any Indicators Present on Admission: Yes History of DVT/PE: Yes History of Uncontrolled Diabetes: No Review of Systems - Constitutional Constitutional: absent: Night Sweats, Weakness - EENT Eyes: absent: Change in Vision - Cardiovascular Cardiovascular: Chest Pain, Chest Pain at Rest, Dyspnea. absent: Claudication, Dyspnea on Exertion - Respiratory Respiratory: Cough, Dyspnea, Excessive Mucous Production. absent: Hemoptysis - Gastrointestinal Gastrointestinal: absent: Abdominal Pain, Diarrhea, Nausea, Vomiting - Genitourinary Genitourinary: absent: Dysuria - Musculoskeletal Musculoskeletal: absent: Abnormal Gait, Muscle Weakness, Stiffness - Integumentary Integumentary: absent: Dry Skin - Neurological Neurological: absent: Abnormal Gait Past Patient History - Infectious Disease Hx of Infectious Diseases: None - Past Medical History & Family History Past Medical History?: Yes - Past Social History Smoking Status: Former Smoker Home Situation {Lives}: Homeless - CARDIAC Hx Congestive Heart Failure: Yes Hx Hypertension: Yes - PULMONARY Hx Chronic Obstructive Pulmonary Disease (COPD): Yes Hx Pneumonia: Yes - NEUROLOGICAL Hx Seizures: Yes - HEENT Hx HEENT Problems: No - RENAL Hx Chronic Kidney Disease: Yes - ENDOCRINE/METABOLIC Hx Endocrine Disorders: No - HEMATOLOGICAL/ONCOLOGICAL Hx Anemia: Yes Hx Human Immunodeficiency Virus (HIV): No - INTEGUMENTARY Hx Dermatological Problems: No - MUSCULOSKELETAL/RHEUMATOLOGICAL Hx Arthritis: Yes - GASTROINTESTINAL Hx Gastrointestinal Disorders: Yes Hx Hemorrhoids: Yes - GENITOURINARY/GYNECOLOGICAL Hx Genitourinary Disorders: No - PSYCHIATRIC Hx Anxiety: Yes Hx Depression: Yes - SURGICAL HISTORY Hx Coronary Stent: No - ANESTHESIA Hx Anesthesia: Yes Hx Anesthesia Reactions: No Hx Malignant Hyperthermia: No Meds Allergies/Adverse Reactions: Allergies Allergy/AdvReac Type Severity Reaction Status Date / Time sulfamethoxazole Allergy RASH Verified 10/12/17 15:04 [From ] trimethoprim [From ] Allergy RASH Verified 10/12/17 15:04 Physical Exam - Constitutional Appears: Non-toxic, No Acute Distress, Older Than Stated Age, Chronically Ill - Head Exam Head Exam: ATRAUMATIC, NORMAL INSPECTION, NORMOCEPHALIC - Eye Exam Eye Exam: Normal appearance - ENT Exam ENT Exam: Mucous Membranes Moist - Respiratory Exam Respiratory Exam: Rales (bibasilar), Rhonchi (diffuse anteriorly and posteriorly ). absent: Accessory Muscle Use, Chest Wall Tenderness, Decreased Breath Sounds , Wheezes, Respiratory Distress - Cardiovascular Exam Cardiovascular Exam: Tachycardia, REGULAR RHYTHM, +S1, +S2 - GI/Abdominal Exam GI & Abdominal Exam: Normal Bowel Sounds, Soft. absent: Distended, Guarding, Tenderness - Rectal Exam Rectal Exam: Deferred - Extremities Exam Extremities exam: Negative for: pedal edema - Neurological Exam Neurological exam: Alert, CN II-XII Intact, Oriented x3 - Psychiatric Exam Psychiatric exam: Normal Affect, Normal Mood - Skin Skin Exam: Dry, Intact, Warm Results - Vital Signs Recent Vital Signs: Last Vital Signs Temp 98 F 10/12/17 15:04 Pulse 102 H 10/12/17 15:15 Resp 20 10/12/17 15:04 BP 149/68 10/12/17 14:46 Pulse Ox 98 10/12/17 18:50 - Labs Result Diagrams: 10/12/17 15:18 10/12/17 15:18 Labs: Laboratory Results - last 24 hr 10/12/17 10/12/17 10/12/17 15:18 15:18 15:18 WBC 5.7 RBC 2.63 L Hgb 8.7 L Hct 26.6 L MCV 101.1 H D MCH 33.0 H MCHC 32.6 L RDW 18.8 H Plt Count 162 D MPV 7.9 Neut % (Auto) 62.4 Lymph % (Auto) 22.5 [place] % (Auto) 11.6 H Eos % (Auto) 3.1 Baso % (Auto) 0.4 Neut # 3.6 Lymph # 1.3 [place] # 0.7 Eos # 0.2 Baso # 0.0 Sodium 142 Potassium 3.9 Chloride 99 Carbon Dioxide 32 H Anion Gap 15 BUN 20 Creatinine 3.7 H Est GFR ( Amer) 20 Est GFR (Non-Af Amer) 17 Random Glucose 94 Calcium 9.0 Total Bilirubin 0.4 AST 23 ALT 30 Alkaline Phosphatase 70 Troponin I 0.2100 H* NT-Pro-B Natriuret Pep 61986 H Total Protein 7.1 Albumin 3.9 Globulin 3.2 Albumin/Globulin Ratio 1.2 Urine Color Urine Clarity Urine pH Ur Specific [employer] Urine Protein Urine Glucose (UA) Urine Ketones Urine Blood Urine Nitrate Urine Bilirubin Urine Urobilinogen Ur Leukocyte Esterase Urine RBC (Auto) Urine Microscopic WBC Ur Squamous Epith Cells Hyaline Casts Influenza Typ A,B (EIA) Negative for flu a/b 10/12/17 17:33 WBC RBC Hgb Hct MCV MCH MCHC RDW Plt Count MPV Neut % (Auto) Lymph % (Auto) [place] % (Auto) Eos % (Auto) Baso % (Auto) Neut # Lymph # [place] # Eos # Baso # Sodium Potassium Chloride Carbon Dioxide Anion Gap BUN Creatinine Est GFR ( Amer) Est GFR (Non-Af Amer) Random Glucose Calcium Total Bilirubin AST ALT Alkaline Phosphatase Troponin I NT-Pro-B Natriuret Pep Total Protein Albumin Globulin Albumin/Globulin Ratio Urine Color Yellow Urine Clarity Slighty-cloudy Urine pH 8.0 Ur Specific [employer] 1.010 Urine Protein >=500 Urine Glucose (UA) 50 Urine Ketones Negative Urine Blood Moderate Urine Nitrate Negative Urine Bilirubin Negative Urine Urobilinogen 0.2-1.0 Ur Leukocyte Esterase Mod Urine RBC (Auto) 58 H Urine Microscopic WBC 12 H Ur Squamous Epith Cells 2 Hyaline Casts 0-2 Influenza Typ A,B (EIA) - EKG Data EKG Interpreted by: Myself EKG shows normal: Sinus rhythm Rate: Tachycardia - Imaging and Cardiology Chest x-ray Status: Image reviewed by me, Report reviewed by me Additional comment: Chest PA and lateral FINDINGS: LUNGS: Somewhat heterogeneous lucency is seen this patient and with the left upper lobe / perihilar region and left base in a pattern suspicious for COPD. No alveolar infiltrate bilaterally however. A small nodule seen at the right base laterally dating back at least to prior chest radiograph 11/07/2015, potentially reflecting a calcified granuloma. PLEURA: Blunting of the left costophrenic sulcus is suspicious for a minimal chronic left pleural effusion or more likely, fibrosis. No right pleural effusion identified. No pneumothorax bilaterally. CARDIOVASCULAR: Normal. OSSEOUS STRUCTURES: No significant abnormalities. VISUALIZED UPPER ABDOMEN: Normal. OTHER FINDINGS: None. IMPRESSION: COPD again evident with likely chronic fibrosis blunts the left costophrenic sulcus lower chronic small pleural effusion is not excluded. No acute findings appreciable this time. Assessment & Plan (1) Chest pain Assessment and Plan: 67 year old male with multiple comorbidities admitted due to chest pain. EKG: HR 132, sinus tachycardia, possible left atrial enlargement. Troponin positive x 1, BNP elevated: 55,600. Cardiology was consulted: Dr. Miles. Patient received aspirin in the ED. Given patients labs and symptoms it is possible that patient is having acute CHF exacerbation vs NSTEMI, with superimposed acute exacerbation of chronic bronchiti. His chest pain has improved. Resume home medications: plavix 75mg, coreg 50mg BID, hydralazine 50 mg TID outpatient admit 2 tele for further cardiac monitoring, patient admitted last month for ? GI bleed, had +FOBT, upper endoscopy was +gastritis, no acute bleeding repeat ECG in AM, continue with troponins q8, lipid panel, hga1c cardiology consult Status: Acute Priority: High (2) Chronic bronchitis with acute exacerbation Assessment and Plan: increased sputum production and dyspnea levaquin 500mg first dose, followed by levaquin 250mg q48 hrs duonebs q4 monitor respiratory function Status: Acute (3) DVT prophylaxis Assessment and Plan: heparin Status: Acute (4) ESRD (end stage renal disease) on dialysis Assessment and Plan: on hemodialysis TT nephrology consult. Status: Chronic (5) Hypertension Assessment and Plan: controlled Status: Chronic
[2017-10-12] MEDS ORDERED: cefTRIAXone IV 1 gm in Dextros 50 ML IVPB STA (20:32)
[2017-10-12] MEDS: levoFLOXacin 500 mg in D5W 500 MG/100 ML BAG IVPB SCH (23:53)
[2017-10-13] MEDS: Albuterol-Ipratrop 3 mg / 0.5 (3 ml) UD INH SCH ×6 (00:38→19:26)
--- NOTE | 2017-10-13 03:09 | CON ---
DATE: REASON FOR CONSULTATION: Chest discomfort. HISTORY OF PRESENT ILLNESS: Patient is a 67-year-old male who is homeless, has a history of EtOH abuse; history of cardiomyopathy; end-stage renal disease, on hemodialysis. 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 The patient also has a history of old TB. He is homeless and lives in a correction and has frequent admissions to [facility]. The patient underwent his hemodialysis today and presented because of chest discomfort, shortness of breath and productive cough. The patient did report fever to me. SOCIAL HISTORY: The patient is a nonsmoker. He is an EtOH abuser. MEDICATIONS: The patient receives aspirin 325 mg and Lasix 40 mg intravenously in the emergency room. PHYSICAL EXAMINATION: GENERAL: Patient is an elderly male who does not appear to be in acute distress. VITAL SIGNS: Blood pressure 149/68, heart rate 140, temperature 98, respirations 16. HEENT: Pale conjunctivae. CHEST: Bibasilar coarse crepitations. HEART: S1, S2 regular. ABDOMEN: Soft. EXTREMITIES: Trace leg edema. LABORATORY DATA: Hemoglobin and hematocrit 8.7 and 26.6. White count and platelet count are within normal limits. Today's BUN and creatinine are 20 and 3.7, Carbon dioxide is 32. The rest of SMA-7 is within normal limits. EKG reveals sinus tachycardia with rate of 132, possible left atrial enlargement. Chest x-ray could not be viewed on the infinite database; however, the official report stated COPD with evidence of chronic fibrosis, blunting of the left costophrenic sulcus. Chronic small pleural effusion is not excluded. The most recent echo in 08/2017, revealed normal ventricular systolic function, concentric LVH, mild aortic insufficiency and impaired diastolic relaxation. ASSESSMENT: 1. Chest pain, rule out myocardial infarction. 2. Chronic obstructive lung disease. 3. History of ethanol abuse. 4. End-stage renal disease, on hemodialysis. RECOMMENDATIONS: Start aspirin 81 mg once a day, Coreg 3.125 mg twice a day, subcutaneous heparin 5000 units twice a day. Monitor daily EKG and serial cardiac enzymes. I will review the old records. Hi Miles MD
[2017-10-13 07:02] LABS: PARTIAL THROMBOPLASTIN TIME 30.4 Seconds (25.6-37.1)
[2017-10-13 07:05] LABS: T4 6.69 ug/dl (5.5-11.0)
[2017-10-13 07:18] LABS: THYROID STIMULATING HORMONE 1.26 mIU/ML (0.46-4.68)
[2017-10-13] MEDS: EPOETIN ALFA 10,000 UNIT/ML ML IV SCH (08:30)
[2017-10-13] MEDS: Fluticasone-Salmeterol 500-50mcg Diskus INH SCH ×2 (08:34→21:24)
[2017-10-13] MEDS: Multivitamin Vitamin B Complex (Nephro-Vite) Tab PO SCH (08:38)
[2017-10-13] MEDS: Calcium Acetate 667 MG Capsule PO SCH ×3 (08:38→16:43)
[2017-10-13] MEDS: SEVELAMER CARBONATE PO SCH ×3 (08:40→16:43)
--- NOTE | 2017-10-13 08:50 | CARD ---
APPROVED REPORT EKG Measurement Heart [id number] <Conclusion> Sinus tachycardia Possible Left atrial enlargement Borderline ECG
[2017-10-13] MEDS ORDERED: levoFLOXacin 500 mg in D5W 500 MG/100 ML BAG IVPB SCH (09:00)
[2017-10-13] MEDS: levoFLOXacin 500 mg in D5W 500 MG/100 ML BAG IVPB SCH (12:48)
--- NOTE | 2017-10-13 14:46 | PN ---
DATE: SUBJECTIVE: The patient denies any chest pain. PHYSICAL EXAMINATION: VITAL SIGNS: Blood pressure 122/48, heart rate 76, temperature 97.8, respirations 18. HEENT: Normocephalic. NECK: No JVD. CHEST: Minimal basilar coarse crepitations. HEART: S1 and S2, regular. EXTREMITIES: No edema. ASSESSMENT: 1. Consider diastolic heart failure. 2. End-stage renal disease, on hemodialysis. 3. History of paroxysmal atrial fibrillation. 4. Chronic obstructive lung disease. 5. Borderline troponin elevation, unlikely represents acute myocardial injury. RECOMMENDATIONS: Continue current hydralazine 50 mg twice day, aspirin 81 mg once a day, Coreg mg twice a day, subcutaneous heparin 5000 units twice a day, Lipitor 10 mg once a day, Plavix 75 mg once a day. I would repeat 12-lead EKG today and obtain D-dimer. Hi Miles MD
--- NOTE | 2017-10-13 15:15 | CP.PCM.PN ---
Subjective - Date & Time of Evaluation Date of Evaluation: 10/13/17 Time of Evaluation: 15:11 - Subjective Subjective: Patient is a 67 years of age known to me with end stage renal disease on maintenance hemodialysis TTS. He was admitted with chest pain and being evaluated . PMHX: ESRD, HTN, COPD, ANCA neg. Vasculitis, DVT of RUE, CHF with mild Diastolic dysfunction, preserved EF: 60-65%, mild aortic insufficiency. Medications: As per med rec Allergies: TMP/SMX Social: former smoker surgical : AV fistula Also patient has multiple and multiple admissions related to anemia transfusion pneumonia vasculitis in the past she was treated with cyclophosphamide for 6 doses. and prednisone as well. Objective - Vital Signs/Intake and Output Vital Signs (last 24 hours): Temp Pulse Resp BP Pulse Ox 97.8 F 76 18 122/48 L 100 10/13/17 12:00 10/13/17 12:00 10/13/17 12:00 10/13/17 12:00 10/13/17 12:00 - Medications Medications: Current Medications Albuterol/Ipratropium (Duoneb 3 Mg/0.5 Mg (3 Ml) Ud) 3 ml INH RQ4 [facility] Last Admin: 10/13/17 11:42 Dose: 3 ml Aspirin (Aspirin Chewable) 81 mg PO DAILY [facility] Last Admin: 10/13/17 08:36 Dose: 81 mg Atorvastatin Calcium (Lipitor) 10 mg PO DAILY [facility] Last Admin: 10/13/17 08:37 Dose: 10 mg Benzonatate (Tessalon Perles) 100 mg PO TID PRN PRN Reason: Cough Last Admin: 10/13/17 08:41 Dose: 100 mg Calcium Acetate (Phoslo) 1,334 mg PO TID [facility] Last Admin: 10/13/17 12:49 Dose: 1,334 mg Carvedilol (Coreg) 50 mg PO BID [facility] Last Admin: 10/13/17 08:37 Dose: 50 mg Citalopram Hydrobromide (Celexa) 20 mg PO DAILY [facility] Last Admin: 10/13/17 08:36 Dose: 20 mg Clopidogrel Bisulfate (Plavix) 75 mg PO DAILY [facility] Last Admin: 10/13/17 08:38 Dose: 75 mg Epoetin José Manuel (Procrit) 10,000 unit IV [facility] Heparin Sodium (Porcine) (Heparin) 5,000 units SC Q12 [facility] PRN Reason: Protocol Last Admin: 10/13/17 08:37 Dose: 5,000 units Home Med (Sevelamer Carbonate [Renvela]) 2 tab PO TID [facility] Last Admin: 10/13/17 12:51 Dose: 2 tab Hydralazine HCl (Apresoline) 50 mg PO BID [facility] Last Admin: 10/13/17 08:35 Dose: 50 mg Levofloxacin/Dextrose (Levaquin 500mg) 500 mg in 100 mls @ 100 mls/hr IVPB DAILY [facility] PRN Reason: Protocol Last Admin: 10/13/17 12:48 Dose: 100 mls/hr Prednisone (Prednisone Tab) 40 mg PO DAILY [facility] Last Admin: 10/13/17 08:39 Dose: 40 mg Fluticasone/Salmeterol (Advair Diskus 500/50) 1 puff INH Q12 [facility] Last Admin: 10/13/17 08:34 Dose: 1 puff Vitamin B Complex/Vit C/Folic Acid (Nephro-Yemi) 1 tab PO DAILY [facility] Last Admin: 10/13/17 08:38 Dose: 1 tab - Labs Labs: 10/12/17 15:18 10/12/17 15:18 PT 13.1 Seconds (9.8-13.1) 10/13/17 06:15 INR 1.2 (0.9-1.2) 10/13/17 06:15 APTT 30.4 Seconds (25.6-37.1) 10/13/17 06:15 - Constitutional Appears: No Acute Distress - ENT Exam ENT Exam: Mucous Membranes Moist - Neck Exam Neck Exam: absent: Lymphadenopathy - Respiratory Exam Respiratory Exam: absent: Chest Wall Tenderness, Rales - Cardiovascular Exam Cardiovascular Exam: REGULAR RHYTHM. absent: Rubs - GI/Abdominal Exam GI & Abdominal Exam: Soft, Normal Bowel Sounds - Extremities Exam Extremities Exam: absent: Calf Tenderness - Back Exam Back Exam: absent: CVA tenderness (L), CVA tenderness (R) - Neurological Exam Neurological Exam: Alert - Psychiatric Exam Psychiatric exam: Normal Affect - Skin Skin Exam: absent: Cyanosis Assessment and Plan (1) End stage renal disease Assessment & Plan: End stage renal disease admitted with chest pain.been evaluated. Patient receiving dialysis TTS. His scheduled for dialysis tomorrow we will call dialysis and make arrangement. Patient has history of hypertension on multiple medication to continual and monitor. History of severe anemia and the past require EPO high doses. if chest pain not cardiac in origin patient need evaluation for recurrence of vasculitis. Perhaps steroid could be considered if not cardiac pain. Sedimentation rate ANCA Continual phosphorus binder Status: Acute (2) Atypical chest pain Status: Acute
[2017-10-13 17:32] LABS: PHOSPHOROUS 3.9 mg/dl (2.5-4.5)
[2017-10-13] MEDS ORDERED: Albuterol-Ipratrop 3 mg / 0.5 (3 ml) UD INH STA (19:16)
--- NOTE | 2017-10-13 19:58 | CP.PCM.PN ---
Subjective - Date & Time of Evaluation Date of Evaluation: 10/13/17 Time of Evaluation: 07:00 - Subjective Subjective: Pt seen and examined at bedside this morning. States he had chest tightness and dyspnea overnight but was relieved after nebulizer treatments. Pt denies having chest pain but rather "pressure". Cough is still present and same as admission. Objective - Vital Signs/Intake and Output Vital Signs (last 24 hours): Temp Pulse Resp BP Pulse Ox 97.5 F L 82 17 136/61 100 10/13/17 16:00 10/13/17 16:42 10/13/17 16:00 10/13/17 16:42 10/13/17 16:00 - Medications Medications: Current Medications Albuterol/Ipratropium (Duoneb 3 Mg/0.5 Mg (3 Ml) Ud) 3 ml INH RQ4 [facility] Last Admin: 10/13/17 19:26 Dose: 3 ml Aspirin (Aspirin Chewable) 81 mg PO DAILY [facility] Last Admin: 10/13/17 08:36 Dose: 81 mg Atorvastatin Calcium (Lipitor) 10 mg PO DAILY [facility] Last Admin: 10/13/17 08:37 Dose: 10 mg Benzonatate (Tessalon Perles) 100 mg PO TID PRN PRN Reason: Cough Last Admin: 10/13/17 16:44 Dose: 100 mg Calcium Acetate (Phoslo) 1,334 mg PO TID [facility] Last Admin: 10/13/17 16:43 Dose: 1,334 mg Carvedilol (Coreg) 50 mg PO BID [facility] Last Admin: 10/13/17 16:42 Dose: 50 mg Citalopram Hydrobromide (Celexa) 20 mg PO DAILY [facility] Last Admin: 10/13/17 08:36 Dose: 20 mg Clopidogrel Bisulfate (Plavix) 75 mg PO DAILY [facility] Last Admin: 10/13/17 08:38 Dose: 75 mg Epoetin José Manuel (Procrit) 10,000 unit IV TTS [facility] Heparin Sodium (Porcine) (Heparin) 5,000 units SC Q12 [facility] PRN Reason: Protocol Last Admin: 10/13/17 08:37 Dose: 5,000 units Home Med (Sevelamer Carbonate [Renvela]) 2 tab PO TID [facility] Last Admin: 10/13/17 16:43 Dose: 2 tab Hydralazine HCl (Apresoline) 50 mg PO BID@0900,2100 [facility] Levofloxacin/Dextrose (Levaquin 500mg) 500 mg in 100 mls @ 100 mls/hr IVPB DAILY [facility] PRN Reason: Protocol Last Admin: 10/13/17 12:48 Dose: 100 mls/hr Prednisone (Prednisone Tab) 40 mg PO DAILY [facility] Last Admin: 10/13/17 08:39 Dose: 40 mg Fluticasone/Salmeterol (Advair Diskus 500/50) 1 puff INH Q12 [facility] Last Admin: 10/13/17 08:34 Dose: 1 puff Vitamin B Complex/Vit C/Folic Acid (Nephro-Yemi) 1 tab PO DAILY [facility] Last Admin: 10/13/17 08:38 Dose: 1 tab - Labs Labs: 10/12/17 15:18 10/12/17 15:18 PT 13.1 Seconds (9.8-13.1) 10/13/17 06:15 INR 1.2 (0.9-1.2) 10/13/17 06:15 APTT 30.4 Seconds (25.6-37.1) 10/13/17 06:15 - Constitutional Appears: Well, Non-toxic, No Acute Distress - ENT Exam ENT Exam: Mucous Membranes Moist - Respiratory Exam Respiratory Exam: Decreased Breath Sounds, Rales (Left lower base crackles), Rhonchi. absent: Accessory Muscle Use, Chest Wall Tenderness, Wheezes, Respiratory Distress - Cardiovascular Exam Cardiovascular Exam: REGULAR RHYTHM, +S1, +S2. absent: Murmur - GI/Abdominal Exam GI & Abdominal Exam: Soft, Normal Bowel Sounds. absent: Tenderness - Extremities Exam Additional comments: AVF, bruit present - Neurological Exam Neurological Exam: Alert, Awake, Oriented x3 - Psychiatric Exam Psychiatric exam: Normal Affect Assessment and Plan - Assessment and Plan (Free Text) Assessment: 67 y/o M with PMH of ESRD on HD TTS, HTN, COPD presents to ED after being seen in the [facility], with complaint of chest pain for past 5 days with worsening cough. #Chest pain r/o ACS -No complaints of chest pain today -Hemodynamically stable -Troponins elevated 0.21, 0.18, 0.15 -EKG in ED: Sinus Tachy, left atrial enlargements -EKG this morning: Septal Infarct, ST wave abnormality, consider inferior ischemia, prolonged QT -[employer] consulted (Dr. Jackson)- recommended to continue with medical management (ASA, Atorvastatin) -Resume home medications: plavix 75mg, coreg 50mg BID, hydralazine 50 mg TID outpatient # COPD Exacerbation -increased sputum production and cough -afebrile, no leukocytosis -Cxray- no active disease, Left sided pleural effusion c/w past imaging -Levaquin 500mg first dose, followed by Levaquine 250mg q48hrs -Prednisone 40mg PO daily -duonebs q4, spaced out to q6 -Continue monitoring respiratory function #ESRD -On HD -Nephrology consulted -C/w sevelamir, EPO, and Nephrovite #HTN -normotensive -C/w home meds #DVT ppx -Heparin
[2017-10-14] MEDS: Albuterol-Ipratrop 3 mg / 0.5 (3 ml) UD INH SCH ×4 (01:00→19:32)
[2017-10-14] MEDS ORDERED: Albuterol-Ipratrop 3 mg / 0.5 (3 ml) UD INH PRN (01:28)
[2017-10-14 08:00] LABS: HEMATOCRIT 27.3 % (35.0-51.0); MEAN CELL VOLUME 101.1 fl (80.0-94.0); MEAN CORPUSCULAR HEMOGLOBIN 32.4 pg (27.0-31.0); MEAN CORPUSCULAR HGB CONC 32.1 g/dL (33.0-37.0); RED CELL DISTRIBUTION WIDTH 18.7 % (11.5-14.5); WHITE BLOOD COUNT 9.2 K/uL (4.8-10.8)
[2017-10-14 08:03] LABS: ALB/GLOB RATIO 1.2 (1.0-2.1); BILIRUBIN,TOTAL 0.3 mg/dl (0.2-1.3); CALCIUM 8.8 mg/dL (8.4-10.2); POTASSIUM 4.1 MMOL/L (3.6-5.0); TOTAL PROTEIN 7.2 G/DL (6.3-8.2)
[2017-10-14] MEDS: Fluticasone-Salmeterol 500-50mcg Diskus INH SCH ×2 (08:28→21:29)
[2017-10-14] MEDS: Multivitamin Vitamin B Complex (Nephro-Vite) Tab PO SCH ×3 (08:30→13:56)
[2017-10-14] MEDS: Calcium Acetate 667 MG Capsule PO SCH ×5 (08:31→16:24)
[2017-10-14] MEDS: levoFLOXacin 500 mg in D5W 500 MG/100 ML BAG IVPB SCH ×2 (08:33→08:50)
[2017-10-14] MEDS: EPOETIN ALFA 10,000 UNIT/ML ML IV SCH (08:35)
--- NOTE | 2017-10-14 09:18 | CARD ---
APPROVED REPORT EKG Measurement Heart [id number] <Conclusion> Normal sinus rhythm Possible Left atrial enlargement Possible septal infarct, age undetermined T wave abnormality, consider anterolateral ischemia Prolonged QT Abnormal ECG
--- NOTE | 2017-10-14 09:18 | CARD ---
APPROVED REPORT EKG Measurement Heart [id number] <Conclusion> Normal sinus rhythm Possible septal infarct, age undetermined ST & T wave abnormality, consider inferior ischemia ST & T wave abnormality, consider anterior ischemia Prolonged QT Abnormal ECG
--- NOTE | 2017-10-14 09:19 | CP.PCM.PN ---
Subjective - Date & Time of Evaluation Date of Evaluation: 10/14/17 Time of Evaluation: 09:16 - Subjective Subjective: Follow up Nephrology Consultation Note Assessment: critical CHF exacerbation Hypertensive Chronic Kidney Disease (I12.0) End stage renal disease (N18.6) dependence on hemodialysis (Z99.2) (TTS) via AVF Anemia (D64.9), Hyperphosphatemia (E83.39), Secondary Hyperparathyroidism (E21.1 ), HTN (I12.0) hx of paucimmune vasculitis, CHF Plan: Will plan for HD today SHARONDA as ordered. Continue with Nephrovite 1 tab/day. PRBC as needed for anemia. On MARCELINA [place] epogen 45141 unit with HD Continue with phos binders BP control with meds as ordered. Patient not on RAAS noel, may consider to add if BP high but for now his BP is controlled Glycemic control, Dialysis consistent diet Further work up/management as per primary team Dose meds/antibiotics (if needed) for ESRD status. Avoid fleets enema/magnesium based laxatives. pt also on prednisone. ANCA level pending (if remains high may consider rheum eval) Thanks for allowing me to participate in care of your patient. Will follow patient with you. Please call if any Qs. Dr Darren Samano Office: [phone] Subjective: Noted events overnight. Patients feels sick. c/o SOB and chest pain. restless Physical Examination: General Appearance: uncomfortable, in no acute respiratory distress, co- operative. but restless Vitals reviewed and noted as below Lungs: mildly increased respiratory rate/effort. Breath sounds bilateral with rales and wheeze Heart: Normal rate. s1s2 normal. No rub or gallop. Extremities: no edema. Neurological: Patient is alert, awake and oriented to person, place and time. No focal deficit. Strength bilateral appropriate and equal Skin: Warm and dry. Normal turgor. No rash. Palpitation: Normal elasticity for age Abdomen: Abdomen is soft. Bowel sounds +. There is no abdominal tenderness, no guarding/rigidity or organomegaly : kidney or bladder not palpable Access: AVF psych: normal insight. irritable and restless HEENT: non traumatic, normocephalic, PERRLA neck: supple, no thyromegaly, no lymph nodes palpable Labs/imaging reviewed. Past medical history, past surgical history, family history (non contributory), social history, allergy reviewed Objective - Vital Signs/Intake and Output Vital Signs (last 24 hours): Temp Pulse Resp BP Pulse Ox 97.5 F L 85 18 135/53 L 96 10/14/17 08:00 10/14/17 08:29 10/14/17 08:00 10/14/17 08:29 10/14/17 08:00 - Medications Medications: Current Medications Albuterol/Ipratropium (Duoneb 3 Mg/0.5 Mg (3 Ml) Ud) 3 ml INH RQ6 ZORAIDA Last Admin: 10/14/17 08:05 Dose: 3 ml Albuterol/Ipratropium (Duoneb 3 Mg/0.5 Mg (3 Ml) Ud) 3 ml INH RQ4 PRN PRN Reason: Shortness of Breath Last Admin: 10/14/17 01:40 Dose: 3 ml Aspirin (Aspirin Chewable) 81 mg PO DAILY [facility] Last Admin: 10/14/17 08:28 Dose: 81 mg Atorvastatin Calcium (Lipitor) 10 mg PO DAILY [facility] Last Admin: 10/14/17 08:30 Dose: 10 mg Benzonatate (Tessalon Perles) 100 mg PO TID PRN PRN Reason: Cough Last Admin: 10/13/17 16:44 Dose: 100 mg Calcium Acetate (Phoslo) 1,334 mg PO TID [facility] Last Admin: 10/14/17 08:31 Dose: 1,334 mg Carvedilol (Coreg) 50 mg PO BID [facility] Last Admin: 10/14/17 08:29 Dose: 50 mg Citalopram Hydrobromide (Celexa) 20 mg PO DAILY [facility] Last Admin: 10/14/17 08:28 Dose: 20 mg Clopidogrel Bisulfate (Plavix) 75 mg PO DAILY [facility] Last Admin: 10/14/17 08:31 Dose: 75 mg Epoetin José Manuel (Procrit) 10,000 unit IV TTS [facility] Last Admin: 10/14/17 08:35 Dose: 10,000 unit Heparin Sodium (Porcine) (Heparin) 5,000 units SC Q12 [facility] PRN Reason: Protocol Last Admin: 10/14/17 08:29 Dose: 5,000 units Hydralazine HCl (Apresoline) 50 mg PO BID@0900,2100 [facility] Last Admin: 10/14/17 08:27 Dose: 50 mg Levofloxacin/Dextrose (Levaquin 500mg) 500 mg in 100 mls @ 100 mls/hr IVPB DAILY [facility] PRN Reason: Protocol Last Admin: 10/14/17 08:50 Dose: Not Given Prednisone (Prednisone Tab) 40 mg PO DAILY [facility] Last Admin: 10/14/17 08:32 Dose: 40 mg Fluticasone/Salmeterol (Advair Diskus 500/50) 1 puff INH Q12 [facility] Last Admin: 10/14/17 08:28 Dose: 1 puff Vitamin B Complex/Vit C/Folic Acid (Nephro-Yemi) 1 tab PO DAILY [facility] Last Admin: 10/14/17 08:30 Dose: 1 tab - Labs Labs: 10/14/17 05:30 10/14/17 05:30 PT 13.1 Seconds (9.8-13.1) 10/13/17 06:15 INR 1.2 (0.9-1.2) 10/13/17 06:15 APTT 30.4 Seconds (25.6-37.1) 10/13/17 06:15
--- NOTE | 2017-10-14 11:30 | CP.PCM.PN ---
Subjective - Date & Time of Evaluation Date of Evaluation: 10/14/17 Time of Evaluation: 09:28 - Subjective Subjective: Pt seen and examined at bedside this morning. States he had coughing overnight and sob. Pt denies having chest pain. Patient believes the medications are causing the worsening SOB/cough, which is why he refused his medications this morning. Cardiology and Nephrology on board. Currently receiving HD. Objective - Vital Signs/Intake and Output Vital Signs (last 24 hours): Temp Pulse Resp BP Pulse Ox 97.5 F L 85 18 135/53 L 96 10/14/17 08:00 10/14/17 08:00 10/14/17 08:00 10/14/17 08:00 10/14/17 08:00 - Medications Medications: Current Medications Albuterol/Ipratropium (Duoneb 3 Mg/0.5 Mg (3 Ml) Ud) 3 ml INH RQ6 [facility] Last Admin: 10/14/17 08:05 Dose: 3 ml Albuterol/Ipratropium (Duoneb 3 Mg/0.5 Mg (3 Ml) Ud) 3 ml INH RQ4 PRN PRN Reason: Shortness of Breath Last Admin: 10/14/17 01:40 Dose: 3 ml Aspirin (Aspirin Chewable) 81 mg PO DAILY [facility] Last Admin: 10/14/17 09:27 Dose: Not Given Atorvastatin Calcium (Lipitor) 10 mg PO DAILY [facility] Last Admin: 10/14/17 09:34 Dose: Not Given Benzonatate (Tessalon Perles) 100 mg PO TID PRN PRN Reason: Cough Last Admin: 10/13/17 16:44 Dose: 100 mg Calcium Acetate (Phoslo) 1,334 mg PO TID [facility] Last Admin: 10/14/17 09:34 Dose: Not Given Carvedilol (Coreg) 50 mg PO BID [facility] Last Admin: 10/14/17 09:32 Dose: Not Given Citalopram Hydrobromide (Celexa) 20 mg PO DAILY [facility] Last Admin: 10/14/17 09:27 Dose: Not Given Clopidogrel Bisulfate (Plavix) 75 mg PO DAILY [facility] Last Admin: 10/14/17 09:34 Dose: Not Given Epoetin José Manuel (Procrit) 10,000 unit IV TTS [facility] Last Admin: 10/14/17 08:35 Dose: 10,000 unit Heparin Sodium (Porcine) (Heparin) 5,000 units SC Q12 [facility] PRN Reason: Protocol Last Admin: 10/14/17 09:33 Dose: Not Given Hydralazine HCl (Apresoline) 50 mg PO BID@0900,2100 [facility] Last Admin: 10/14/17 09:27 Dose: Not Given Levofloxacin (Levaquin) 500 mg PO Q48H [facility] PRN Reason: Protocol Prednisone (Prednisone Tab) 40 mg PO DAILY [facility] Last Admin: 10/14/17 09:34 Dose: Not Given Fluticasone/Salmeterol (Advair Diskus 500/50) 1 puff INH Q12 [facility] Last Admin: 10/14/17 08:28 Dose: 1 puff Vitamin B Complex/Vit C/Folic Acid (Nephro-Yemi) 1 tab PO DAILY [facility] Last Admin: 10/14/17 09:34 Dose: Not Given - Labs Labs: 10/14/17 05:30 10/14/17 05:30 PT 13.1 Seconds (9.8-13.1) 10/13/17 06:15 INR 1.2 (0.9-1.2) 10/13/17 06:15 APTT 30.4 Seconds (25.6-37.1) 10/13/17 06:15 - Constitutional Appears: Non-toxic, No Acute Distress - Head Exam Head Exam: ATRAUMATIC, NORMAL INSPECTION, NORMOCEPHALIC - Eye Exam Eye Exam: Normal appearance - Neck Exam Neck Exam: Normal Inspection - Respiratory Exam Respiratory Exam: Rales, Wheezes, NORMAL BREATHING PATTERN - Cardiovascular Exam Cardiovascular Exam: REGULAR RHYTHM, +S1, +S2. absent: Murmur - GI/Abdominal Exam GI & Abdominal Exam: Soft, Normal Bowel Sounds. absent: Tenderness - Extremities Exam Extremities Exam: Normal Inspection - Neurological Exam Neurological Exam: Alert, Awake, Oriented x3 - Psychiatric Exam Psychiatric exam: Normal Affect, Normal Mood - Skin Skin Exam: Dry, Intact, Normal Color, Warm Assessment and Plan - Assessment and Plan (Free Text) Assessment: 67 y/o M with PMH of ESRD on HD TTS, HTN, COPD admitted due to chest pressure, cough for past 5 days. #Chest pain r/o ACS -No complaints of chest pain today -Hemodynamically stable -Troponins elevated 0.21, 0.18, 0.15 (trending down) -EKG in ED: Sinus Tachy, left atrial enlargements -EKG this morning: Septal Infarct, ST wave abnormality, consider inferior ischemia, prolonged QT -Environment Artist consulted (Dr. Jackson)- recommended to continue with medical management (ASA, Atorvastatin) -will obtain repeat echo due to abnl ekgs, elevated troponins -c/w home meds (patient agreeable to take meds except for levaquin) # COPD Exacerbation -increased sputum production and cough -afebrile, no leukocytosis -Cxray- no active disease, Left sided pleural effusion c/w past imaging -Levaquin d/c'ed due to possible reaction, will start rocephin at this time -repeat CXR now, follow up -Prednisone 40mg PO daily -duonebs q4h zoraida -Continue monitoring respiratory function #ESRD -On HD -Nephrology consulted -C/w sevelamir, EPO, and Nephrovite #HTN -normotensive -C/w home meds #DVT ppx -Heparin/scds
[2017-10-15] MEDS: Albuterol-Ipratrop 3 mg / 0.5 (3 ml) UD INH SCH ×6 (00:24→19:39)
--- NOTE | 2017-10-15 00:44 | PN ---
DATE: SUBJECTIVE: The patient refused to take his medications today. PHYSICAL EXAMINATION: VITAL SIGNS: Blood pressure 166/62, heart rate 114, temperature 98.1, respirations 16. HEENT: Head normocephalic. CHEST: Minimal basilar crepitations. HEART: S1, S2, regular. ABDOMEN: Soft. EXTREMITIES: No edema. LABORATORY DATA: Today's chest x-ray revealed prominent central congestion, possible small left pleural effusion. Laboratories revealed . White count and platelet count are within normal limits. Today's BUN and creatinine are 54 and 6.9. ASSESSMENT: 1. End-stage renal disease on hemodialysis. 2. Frequent ventricular ectopy. 3. History of pulmonary tuberculosis in the past. 4. Improved congestive heart failure. 5. Consider [id number] myocardial infraction. RECOMMENDATIONS: Continue aspirin at 81 mg once a day, Coreg was increased to 50 mg twice a day, Lipitor at 10 mg once a day, Plavix 75 mg once a day; however, the patient has been uncooperative, and it was reported to me that the patient refuses to take his medications. In view of that the patient will not be a suitable candidate for invasive, interventional cardiac workup and congestive medical management is justified. Hi Miles MD
[2017-10-15 08:00] LABS: HEMATOCRIT 28.5 % (35.0-51.0); MEAN CELL VOLUME 100.5 fl (80.0-94.0); MEAN CORPUSCULAR HEMOGLOBIN 32.2 pg (27.0-31.0); MEAN CORPUSCULAR HGB CONC 32.1 g/dL (33.0-37.0); RED CELL DISTRIBUTION WIDTH 18.2 % (11.5-14.5); WHITE BLOOD COUNT 5.3 K/uL (4.8-10.8)
[2017-10-15 08:06] LABS: ALB/GLOB RATIO 1.2 (1.0-2.1); BILIRUBIN,TOTAL 0.3 mg/dl (0.2-1.3); CALCIUM 8.3 mg/dL (8.4-10.2); POTASSIUM 4.5 MMOL/L (3.6-5.0); TOTAL PROTEIN 6.9 G/DL (6.3-8.2)
[2017-10-15] MEDS: Fluticasone-Salmeterol 500-50mcg Diskus INH SCH ×2 (08:34→21:32)
[2017-10-15] MEDS: Multivitamin Vitamin B Complex (Nephro-Vite) Tab PO SCH (08:36)
[2017-10-15] MEDS ORDERED: levoFLOXacin 500 MG TAB PO SCH (09:00)
--- NOTE | 2017-10-15 10:17 | CP.PCM.PN ---
Subjective - Date & Time of Evaluation Date of Evaluation: 10/15/17 Time of Evaluation: 08:35 - Subjective Subjective: No acute overnight events. Pt seen and examined at bedside this morning. Denies complaints. States he felt SOB 2 nights ago when walking to the bathroom but overnight he had no discomfort. Ambulating without dyspnea. Denies chest pain, sob, n/v, abdominal pain, calf pain. Objective - Vital Signs/Intake and Output Vital Signs (last 24 hours): Temp Pulse Resp BP Pulse Ox 97.5 F L 71 18 115/54 L 95 10/15/17 08:00 10/15/17 08:35 10/15/17 08:00 10/15/17 08:35 10/15/17 08:00 - Medications Medications: Current Medications Albuterol/Ipratropium (Duoneb 3 Mg/0.5 Mg (3 Ml) Ud) 3 ml INH RQ4 [facility] Last Admin: 10/15/17 07:49 Dose: 3 ml Aspirin (Aspirin Chewable) 81 mg PO DAILY [facility] Last Admin: 10/15/17 08:35 Dose: 81 mg Atorvastatin Calcium (Lipitor) 10 mg PO DAILY [facility] Last Admin: 10/15/17 08:36 Dose: 10 mg Benzonatate (Tessalon Perles) 100 mg PO TID PRN PRN Reason: Cough Last Admin: 10/13/17 16:44 Dose: 100 mg Calcium Acetate (Phoslo) 1,334 mg PO TID [facility] Last Admin: 10/14/17 16:24 Dose: 1,334 mg Carvedilol (Coreg) 50 mg PO BID [facility] Last Admin: 10/15/17 08:35 Dose: 50 mg Citalopram Hydrobromide (Celexa) 20 mg PO DAILY [facility] Last Admin: 10/15/17 08:35 Dose: 20 mg Clopidogrel Bisulfate (Plavix) 75 mg PO DAILY [facility] Last Admin: 10/15/17 08:37 Dose: 75 mg Epoetin José Manuel (Procrit) 10,000 unit IV TTS [facility] Last Admin: 10/13/17 08:30 Dose: 10,000 unit Heparin Sodium (Porcine) (Heparin) 5,000 units SC Q12 [facility] PRN Reason: Protocol Last Admin: 10/15/17 08:36 Dose: 5,000 units Hydralazine HCl (Apresoline) 50 mg PO BID@0900,2100 [facility] Last Admin: 10/15/17 08:35 Dose: 50 mg Ceftriaxone Sodium 1 gm/ (Sodium Chloride) 100 mls @ 100 mls/hr IVPB DAILY [facility] PRN Reason: Protocol Last Admin: 10/15/17 08:33 Dose: 100 mls/hr Prednisone (Prednisone Tab) 40 mg PO DAILY [facility] Last Admin: 10/15/17 08:37 Dose: 40 mg Fluticasone/Salmeterol (Advair Diskus 500/50) 1 puff INH Q12 [facility] Last Admin: 10/15/17 08:34 Dose: 1 puff Vitamin B Complex/Vit C/Folic Acid (Nephro-Yemi) 1 tab PO DAILY [facility] Last Admin: 10/15/17 08:36 Dose: 1 tab - Labs Labs: 10/15/17 06:30 10/15/17 06:30 PT 13.1 Seconds (9.8-13.1) 10/13/17 06:15 INR 1.2 (0.9-1.2) 10/13/17 06:15 APTT 30.4 Seconds (25.6-37.1) 10/13/17 06:15 - Constitutional Appears: Well, Non-toxic, No Acute Distress - ENT Exam ENT Exam: Mucous Membranes Moist - Respiratory Exam Respiratory Exam: Clear to Ausculation Bilateral, Rales (Rales appreciable in left mid lung base). absent: Wheezes - Cardiovascular Exam Cardiovascular Exam: REGULAR RHYTHM, +S1, +S2. absent: Murmur - Extremities Exam Extremities Exam: absent: Calf Tenderness, Pedal Edema - Neurological Exam Neurological Exam: Alert, Awake, Oriented x3 Assessment and Plan - Assessment and Plan (Free Text) Assessment: 67 y/o M with PMH of ESRD on HD TTS, HTN, COPD admitted due to chest pressure, cough for past 5 days. Planning for Cath procedure on 10/17. #NSTEMI -No complaints of chest pain today -Hemodynamically stable overnight -Troponins elevated 0.21, 0.18, 0.15 (trending down) -EKG in ED: Sinus Tachy, left atrial enlargements -EKG on 10/14: Septal Infarct, ST wave abnormality, consider inferior ischemia, prolonged QT -Pathology Supervisor consult appreciated- Plan for Cath -C/w ASA, Plavix, Lipitor, Coreg 50mg BID -will obtain repeat echo due to abnl ekgs, elevated troponins -c/w home meds (patient agreeable to take meds except for levaquin) # SOB 2/2 COPD Exacerbation vs LV failure s/p NSTEMI -Pt reports no SOB overnight but had an episode of acute SOB 2 nights ago -Afebrile, no leukocytosis -Cxray (10/12) no active disease, Left sided pleural effusion c/w past imaging. Repeat Cxray- pending -Levaquin d/c'ed due to possible reaction, will start Rocephin at this time -Prednisone 40mg PO daily and duonebs q4 aisha for possible COPD ex -Echo scheduled for today to assess for LV dysfunction after NSTEMI -Continue monitoring respiratory function #CHF, diastolic (preserved EF) -Last Echo 08/22, EF 60-65% -F/u echo today #ESRD -On HD -Nephrology consulted -C/w sevelamir, EPO, and Nephrovite #HTN -normotensive -C/w home meds #DVT ppx -Heparin/scds
--- NOTE | 2017-10-15 11:32 | RAD ---
HISTORY: dyspnea COMPARISON: 10/12/2017 TECHNIQUE: Chest PA and lateral FINDINGS: LUNGS: No active pulmonary disease. PLEURA: Small left pleural effusion. CARDIOVASCULAR: Normal. OSSEOUS STRUCTURES: No significant abnormalities. VISUALIZED UPPER ABDOMEN: Normal. OTHER FINDINGS: None. IMPRESSION: Small left pleural effusion.
--- NOTE | 2017-10-15 14:47 | PN ---
DATE: FOLLOWUP SUBJECTIVE: The patient denied chest pain. PHYSICAL EXAMINATION: VITAL SIGNS: Blood pressure 103/30, heart rate 78, temperature 97.5, respirations 18. HEENT: Normocephalic. NECK: No JVD. CHEST: Bilateral rhonchi. HEART: S1 and S2 regular. EXTREMITIES: No edema. LABORATORY DATA: Today's hemoglobin and hematocrit 9.1 and 28.5. White count and platelet count are within normal limit. Today's BUN and creatinine are 37 and 4.9 ASSESSMENT: 1. Status post acm-WB-[id number] myocardial infarction. 2. End stage renal disease, on hemodialysis. 3. Paroxysmal atrial fibrillation. RECOMMENDATIONS: Case was discussed with the patient, the medical attending and the medical records technician, who will speak [place] to the patient. The patient agreed for a high-risk cardiac catheterization. The patient procedure and its risks were fully explained in the patient 's own [place] language. The procedure will be scheduled for Monday of next week. He would be followed by his scheduled dialysis on the day any time. The patient will be maintained on hydralazine, Coreg, aspirin, Lipitor and Plavix. Hi Miles MD
--- NOTE | 2017-10-15 17:48 | CP.PCM.PN ---
Subjective - Date & Time of Evaluation Date of Evaluation: 10/15/17 Time of Evaluation: 17:46 - Subjective Subjective: Follow up Nephrology Consultation Note Assessment: stable CHF exacerbation, fluid overload Hypertensive Chronic Kidney Disease (I12.0) End stage renal disease (N18.6) dependence on hemodialysis (Z99.2) (TTS) via AVF Anemia (D64.9), Hyperphosphatemia (E83.39), Secondary Hyperparathyroidism (E21.1 ), HTN (I12.0) hx of paucimmune vasculitis, CHF Plan: Will plan for HD monday as ordered. Continue with Nephrovite 1 tab/day. no acute need today PRBC as needed for anemia. On MARCELINA [place] epogen 62979 unit with HD Continue with phos binders BP control with meds as ordered. Patient not on RAAS noel, may consider to add if BP high but for now his BP is controlled Glycemic control, Dialysis consistent diet Further work up/management as per primary team Dose meds/antibiotics (if needed) for ESRD status. Avoid fleets enema/magnesium based laxatives. pt also on prednisone. ANCA level pending (if remains high may consider rheum eval) Thanks for allowing me to participate in care of your patient. Will follow patient with you. Please call if any Qs. Dr Darren Samano Office: [phone] Subjective: Noted events overnight. Patients feels much better. improved SOB and denies chest pain. comfortable Physical Examination: General Appearance: ucomfortable, in no acute respiratory distress, co- operative. Vitals reviewed and noted as below Lungs: mildly increased respiratory rate/effort. Breath sounds bilateral with clear with occasional basal crackles Heart: Normal rate. s1s2 normal. No rub or gallop. Extremities: no edema. Neurological: Patient is alert, awake and oriented to person, place and time. No focal deficit. Strength bilateral appropriate and equal Skin: Warm and dry. Normal turgor. No rash. Palpitation: Normal elasticity for age Abdomen: Abdomen is soft. Bowel sounds +. There is no abdominal tenderness, no guarding/rigidity or organomegaly : kidney or bladder not palpable Access: AVF psych: normal insight. HEENT: non traumatic, normocephalic, PERRLA neck: supple, no thyromegaly, no lymph nodes palpable Labs/imaging reviewed. Past medical history, past surgical history, family history (non contributory), social history, allergy reviewed Objective - Vital Signs/Intake and Output Vital Signs (last 24 hours): Temp Pulse Resp BP Pulse Ox 97.7 F 77 16 122/46 L 97 10/15/17 16:00 10/15/17 16:00 10/15/17 16:00 10/15/17 16:00 10/15/17 16:00 - Medications Medications: Current Medications Albuterol/Ipratropium (Duoneb 3 Mg/0.5 Mg (3 Ml) Ud) 3 ml INH RQ4 [facility] Last Admin: 10/15/17 15:45 Dose: 3 ml Aspirin (Aspirin Chewable) 81 mg PO DAILY [facility] Last Admin: 10/15/17 08:35 Dose: 81 mg Atorvastatin Calcium (Lipitor) 10 mg PO DAILY [facility] Last Admin: 10/15/17 08:36 Dose: 10 mg Benzonatate (Tessalon Perles) 100 mg PO TID PRN PRN Reason: Cough Last Admin: 10/13/17 16:44 Dose: 100 mg Calcium Acetate (Phoslo) 1,334 mg PO TID [facility] Carvedilol (Coreg) 50 mg PO BID [facility] Last Admin: 10/15/17 08:35 Dose: 50 mg Citalopram Hydrobromide (Celexa) 20 mg PO DAILY [facility] Last Admin: 10/15/17 08:35 Dose: 20 mg Clopidogrel Bisulfate (Plavix) 75 mg PO DAILY [facility] Last Admin: 10/15/17 08:37 Dose: 75 mg Epoetin José Manuel (Procrit) 10,000 unit IV TTS [facility] Last Admin: 10/13/17 08:30 Dose: 10,000 unit Heparin Sodium (Porcine) (Heparin) 5,000 units SC Q12 [facility] PRN Reason: Protocol Last Admin: 10/15/17 08:36 Dose: 5,000 units Hydralazine HCl (Apresoline) 50 mg PO BID@0900,2100 [facility] Last Admin: 10/15/17 08:35 Dose: 50 mg Ceftriaxone Sodium 1 gm/ (Sodium Chloride) 100 mls @ 100 mls/hr IVPB DAILY [facility] PRN Reason: Protocol Last Admin: 10/15/17 08:33 Dose: 100 mls/hr Prednisone (Prednisone Tab) 40 mg PO DAILY [facility] Last Admin: 10/15/17 08:37 Dose: 40 mg Fluticasone/Salmeterol (Advair Diskus 500/50) 1 puff INH Q12 [facility] Last Admin: 10/15/17 08:34 Dose: 1 puff Vitamin B Complex/Vit C/Folic Acid (Nephro-Yemi) 1 tab PO DAILY [facility] Last Admin: 10/15/17 08:36 Dose: 1 tab - Labs Labs: 10/15/17 06:30 10/15/17 06:30 PT 13.1 Seconds (9.8-13.1) 10/13/17 06:15 INR 1.2 (0.9-1.2) 10/13/17 06:15 APTT 30.4 Seconds (25.6-37.1) 10/13/17 06:15
[2017-10-16] MEDS: Albuterol-Ipratrop 3 mg / 0.5 (3 ml) UD INH SCH ×4 (00:20→11:10)
[2017-10-16] MEDS: Fluticasone-Salmeterol 500-50mcg Diskus INH SCH ×2 (08:08→21:28)
[2017-10-16] MEDS: Multivitamin Vitamin B Complex (Nephro-Vite) Tab PO SCH (08:16)
--- NOTE | 2017-10-16 10:28 | CP.PCM.PN ---
Subjective - Date & Time of Evaluation Date of Evaluation: 10/16/17 Time of Evaluation: 10:27 - Subjective Subjective: Patient appeared to be comfortable No chest pain No nausea and vomiting Objective - Vital Signs/Intake and Output Vital Signs (last 24 hours): Temp Pulse Resp BP Pulse Ox 97.5 F L 81 18 128/49 L 100 10/16/17 08:00 10/16/17 08:11 10/16/17 08:00 10/16/17 08:11 10/16/17 08:00 Intake and Output: 10/16/17 10/16/17 06:59 18:59 Intake Total 1600 Balance 1600 - Medications Medications: Current Medications Albuterol/Ipratropium (Duoneb 3 Mg/0.5 Mg (3 Ml) Ud) 3 ml INH RQ4 [facility] Last Admin: 10/16/17 07:43 Dose: 3 ml Aspirin (Aspirin Chewable) 81 mg PO DAILY [facility] Last Admin: 10/16/17 08:12 Dose: 81 mg Atorvastatin Calcium (Lipitor) 10 mg PO DAILY [facility] Last Admin: 10/16/17 08:10 Dose: 10 mg Benzonatate (Tessalon Perles) 100 mg PO TID PRN PRN Reason: Cough Last Admin: 10/13/17 16:44 Dose: 100 mg Calcium Acetate (Phoslo) 1,334 mg PO TID [facility] Last Admin: 10/16/17 08:08 Dose: 1,334 mg Carvedilol (Coreg) 50 mg PO BID [facility] Last Admin: 10/16/17 08:09 Dose: 50 mg Citalopram Hydrobromide (Celexa) 20 mg PO DAILY [facility] Last Admin: 10/16/17 08:10 Dose: 20 mg Clopidogrel Bisulfate (Plavix) 75 mg PO DAILY [facility] Last Admin: 10/16/17 08:11 Dose: 75 mg Epoetin José Manuel (Procrit) 10,000 unit IV TTS [facility] Last Admin: 10/13/17 08:30 Dose: 10,000 unit Heparin Sodium (Porcine) (Heparin) 5,000 units SC Q12 [facility] PRN Reason: Protocol Last Admin: 10/16/17 08:12 Dose: 5,000 units Hydralazine HCl (Apresoline) 50 mg PO BID@0900,2100 [facility] Last Admin: 10/16/17 08:11 Dose: 50 mg Ceftriaxone Sodium 1 gm/ (Sodium Chloride) 100 mls @ 100 mls/hr IVPB DAILY [facility] PRN Reason: Protocol Last Admin: 10/16/17 08:07 Dose: 100 mls/hr Prednisone (Prednisone Tab) 40 mg PO DAILY [facility] Last Admin: 10/16/17 08:32 Dose: 40 mg Fluticasone/Salmeterol (Advair Diskus 500/50) 1 puff INH Q12 [facility] Last Admin: 10/16/17 08:08 Dose: 1 puff Vitamin B Complex/Vit C/Folic Acid (Nephro-Yemi) 1 tab PO DAILY [facility] Last Admin: 10/16/17 08:16 Dose: 1 tab - Labs Labs: 10/15/17 06:30 10/15/17 06:30 PT 13.1 Seconds (9.8-13.1) 10/13/17 06:15 INR 1.2 (0.9-1.2) 10/13/17 06:15 APTT 30.4 Seconds (25.6-37.1) 10/13/17 06:15 - Constitutional Appears: No Acute Distress - ENT Exam ENT Exam: Mucous Membranes Moist - Respiratory Exam Respiratory Exam: Chest Wall Tenderness, NORMAL BREATHING PATTERN. absent: Rales - Cardiovascular Exam Cardiovascular Exam: REGULAR RHYTHM. absent: Rubs - GI/Abdominal Exam GI & Abdominal Exam: Soft, Normal Bowel Sounds - Extremities Exam Extremities Exam: absent: Calf Tenderness - Back Exam Back Exam: absent: CVA tenderness (L), CVA tenderness (R) - Neurological Exam Neurological Exam: Alert - Psychiatric Exam Psychiatric exam: Normal Affect - Skin Skin Exam: Intact Assessment and Plan (1) End stage renal disease Assessment & Plan: End stage renal disease on maintenance hemodialysis scheduled for dialysis for tomorrow. For cardiac catheterization tomorrow and dialysis to follow Anemia continue EPO Hyperphosphatemia continue binders Hypertension continue the same medication The patient has history of having Pausi immune Vasculitis ANCA nrg. Status: Acute (2) Atypical chest pain Status: Acute
[2017-10-16] MEDS ORDERED: Albuterol-Ipratrop 3 mg / 0.5 (3 ml) UD INH PRN (11:26)
--- NOTE | 2017-10-16 14:27 | CP.PCM.PN ---
Subjective - Date & Time of Evaluation Date of Evaluation: 10/16/17 Time of Evaluation: 07:00 - Subjective Subjective: No overnight events. Pt seen and evaluated this morning. States he occasionally feels like his chest is tight but is relieved after nebulizer treatments. Denies chest pain or SOB. Has been ambulating without assistance. Regular BM and urination. Discussed with the patient plan for Cath tomorrow. Objective - Vital Signs/Intake and Output Vital Signs (last 24 hours): Temp Pulse Resp BP Pulse Ox 98 F 85 18 111/52 L 100 10/16/17 12:00 10/16/17 12:00 10/16/17 12:00 10/16/17 12:00 10/16/17 12:00 Intake and Output: 10/16/17 10/16/17 06:59 18:59 Intake Total 1600 Balance 1600 - Medications Medications: Current Medications Albuterol/Ipratropium (Duoneb 3 Mg/0.5 Mg (3 Ml) Ud) 3 ml INH RQ6 PRN PRN Reason: Shortness of Breath Aspirin (Aspirin Chewable) 81 mg PO DAILY [facility] Last Admin: 10/16/17 08:12 Dose: 81 mg Atorvastatin Calcium (Lipitor) 10 mg PO DAILY [facility] Last Admin: 10/16/17 08:10 Dose: 10 mg Benzonatate (Tessalon Perles) 100 mg PO TID PRN PRN Reason: Cough Last Admin: 10/13/17 16:44 Dose: 100 mg Calcium Acetate (Phoslo) 1,334 mg PO TID [facility] Last Admin: 10/16/17 13:48 Dose: 1,334 mg Carvedilol (Coreg) 50 mg PO BID [facility] Last Admin: 10/16/17 08:09 Dose: 50 mg Citalopram Hydrobromide (Celexa) 20 mg PO DAILY [facility] Last Admin: 10/16/17 08:10 Dose: 20 mg Clopidogrel Bisulfate (Plavix) 75 mg PO DAILY [facility] Last Admin: 10/16/17 08:11 Dose: 75 mg Epoetin José Manuel (Procrit) 10,000 unit IV TTS [facility] Last Admin: 10/13/17 08:30 Dose: 10,000 unit Heparin Sodium (Porcine) (Heparin) 5,000 units SC Q12 [facility] PRN Reason: Protocol Last Admin: 10/16/17 08:12 Dose: 5,000 units Hydralazine HCl (Apresoline) 50 mg PO BID@0900,2100 [facility] Last Admin: 10/16/17 08:11 Dose: 50 mg Prednisone (Prednisone Tab) 20 mg PO DAILY [facility] Fluticasone/Salmeterol (Advair Diskus 500/50) 1 puff INH Q12 [facility] Last Admin: 10/16/17 08:08 Dose: 1 puff Vitamin B Complex/Vit C/Folic Acid (Nephro-Yemi) 1 tab PO DAILY [facility] Last Admin: 10/16/17 08:16 Dose: 1 tab - Labs Labs: 10/15/17 06:30 10/15/17 06:30 PT 13.1 Seconds (9.8-13.1) 10/13/17 06:15 INR 1.2 (0.9-1.2) 10/13/17 06:15 APTT 30.4 Seconds (25.6-37.1) 10/13/17 06:15 - Constitutional Appears: Well, Non-toxic, No Acute Distress - Eye Exam Eye Exam: Normal appearance - ENT Exam ENT Exam: Mucous Membranes Moist - Respiratory Exam Respiratory Exam: Clear to Ausculation Bilateral, Rales. absent: Wheezes Additional comments: Rales appreciated in left lower lung magaña. - Cardiovascular Exam Cardiovascular Exam: REGULAR RHYTHM, +S1, +S2. absent: Murmur - GI/Abdominal Exam GI & Abdominal Exam: Soft, Normal Bowel Sounds. absent: Tenderness Assessment and Plan - Assessment and Plan (Free Text) Assessment: 67 y/o M with PMH of ESRD on HD TTS, HTN, COPD admitted due to chest pressure, cough for past 5 days. Planning for Cath procedure tomorrow at [facility] with Dr. Billingsley at 2pm. #NSTEMI -No complaints of chest pain today; still experiencing chest tightness occasionally from lung disease -Hemodynamically stable overnight -Troponins elevated 0.21, 0.18, 0.15 (trending down) -EKG in ED: Sinus Tachy, left atrial enlargements -EKG on 10/14: Septal Infarct, ST wave abnormality, consider inferior ischemia, prolonged QT -Granite Worker consult appreciated- Plan for Cath tomorrow -C/w ASA, Plavix, Lipitor, Coreg 50mg BID -c/w home meds # SOB 2/2 COPD Exacerbation -Pt reports no SOB overnight -Afebrile, no leukocytosis -Cxray (10/12) no active disease, Left sided pleural effusion c/w past imaging. Repeat Cxray- pending -Levaqsonia d/c'ed due to possible reaction, will start Rocephin at this time -PO Prednisone 40mg tapered to 20mg today -Duonebs q4 aisha -Continue monitoring respiratory function #CHF, diastolic (preserved EF) -Last Echo 08/22, EF 60-65% -F/u echo today #ESRD on HD T//Mon -On HD; Pt will receive HD tomorrow after Cath procedure; Mathematics Teacher made aware -Nephrology on board -C/w sevelamir, EPO, and Nephrovite #HTN -normotensive -C/w home meds #DVT ppx -Heparin/scds (Will be held for tomorrows at midnight procedure) #Diet -Renal Diet -NPO after liquid breakfast tomorrow as per Granite Worker
--- NOTE | 2017-10-16 19:31 | CARD ---
APPROVED REPORT EXAM: Two-dimensional and M-mode echocardiogram with Doppler and color Doppler. Other Information Quality : ExcellentRhythm : NSR INDICATION Abnormal EKG/Arrhythmia 2D DIMENSIONS IVSd1.01 (0.7-1.1cm)LVDd5.45 (3.9-5.9cm) LVOT Diameter2.08 (1.8-2.4cm)PWd0.99 (0.7-1.1cm) IVSs1.35 (0.8-1.2cm)LVDs4.24 (2.5-4.0cm) FS (%) 22.2 %PWs1.82 (0.8-1.2cm) LVEF (%)55.0 (>50%) M-Mode DIMENSIONS Left Atrium (MM)5.06 (2.5-4.0cm)IVSd0.65 (0.7-1.1cm) Aortic Root2.56 (2.2-3.7cm)LVDd7.53 (4.0-5.6cm) Aortic Cusp Exc.1.79 (1.5-2.0cm)PWd0.82 (0.7-1.1cm) IVSs1.15 cmFS (%) 35 % LVDs4.88 (2.0-3.8cm)PWs1.41 cm Aortic Valve AI P 1/2 [id number] Mitral Valve MV E Eaoqdejv827.0cm/sMV DECEL [id number] A Vbzdfvnf38.8cm/s MV NXA47ajU/A ratio2.0MVA (PHT)3.45cm2 TDI Lateral E' Peak V12.14cm/sMedial E' Peak V11.98cm/sE/Lateral E'9.6 E/Medial E'9.8 Pulmonary Valve PV Peak Gbjhdwqf70.3cm/s LEFT VENTRICLE The Left Ventricle is borderline dilated. There is mild concentric left ventricular hypertrophy. The left ventricular function is normal. The left ventricular ejection fraction is within the normal range. There is normal LV segmental wall motion. Transmitral Doppler flow pattern is Grade II-pseudonormal filling dynamics. RIGHT VENTRICLE The right ventricle is normal size. There is normal right ventricular wall thickness. The right ventricular systolic function is normal. ATRIA The left atrium is moderately dilated. The right atrium is mildly dilated. AORTIC VALVE The aortic valve is mildly thickened. There is severe aortic regurgitation. There is no aortic valvular stenosis. MITRAL VALVE The mitral valve is mildly thickened. There is no mitral valve stenosis. Mitral regurgitation is severe. TRICUSPID VALVE The tricuspid valve is normal in structure. There is mild tricuspid regurgitation. PULMONIC VALVE The pulmonary valve is normal in structure. There is no pulmonic valvular regurgitation. GREAT VESSELS The aortic root is normal in size. The IVC is normal in size and collapses >50% with inspiration. PERICARDIAL EFFUSION The pericardium appears normal. <Conclusion> The Left Ventricle is borderline dilated. There is mild concentric left ventricular hypertrophy. The left ventricular function is normal. The left ventricular ejection fraction is within the normal range. There is normal LV segmental wall motion. Transmitral Doppler flow pattern is Grade II-pseudonormal filling dynamics. There is severe aortic regurgitation. Mitral regurgitation is severe. There is mild tricuspid regurgitation.
[2017-10-16] MEDS ORDERED: Metoprolol 1 mg/ml Inj IVP ONE (22:57)
[2017-10-16 23:32] LABS: BASO % 0.2 % (0.0-2.0); EOS % 0.2 % (0.0-4.0); HEMATOCRIT 26.5 % (35.0-51.0); LYMPH # 1.4 K/uL (1.0-4.3); LYMPH % 18.6 % (20.0-40.0); MEAN CELL VOLUME 100.5 fl (80.0-94.0); MEAN CORPUSCULAR HEMOGLOBIN 32.5 pg (27.0-31.0); MEAN CORPUSCULAR HGB CONC 32.3 g/dL (33.0-37.0); MEAN PLATELET VOLUME 8.2 fl (7.2-11.7); MONO # 0.6 K/uL (0.0-0.8); MONO % 7.2 % (0.0-10.0); NEUT # 5.7 K/uL (1.8-7.0); NEUT % 73.8 % (50.0-75.0); RED CELL DISTRIBUTION WIDTH 18.3 % (11.5-14.5); WHITE BLOOD COUNT 7.8 K/uL (4.8-10.8)
--- NOTE | 2017-10-16 23:39 | CP.PCM.PCO ---
Addendum Addendum: 10/16/17 23:36 CC: Called by RN for chest discomfort S: Patient seen ambulating in hallway, holding his chest complaining of discomfort. monitoring engineer revealed HR 110-120 bpm. Patient reports his chest feels uncomfortable with associated dyspnea. No chest pain, dizziness. He is ambulating in the hallway without difficulty. He went back to his room and sat down, without immediate improvement of symptoms. HR remained in 110s, began trending down to 100s after patient sat down. No other complaints. O: Patient appears uncomfortable, no tachypnea/dyspnea Lungs: bilateral rhonchi Cardio: tachycardia, S1S2 Abd: nontender, nondistended,soft, Ext: No pedal edema . A/P: 67 y/o male with multiple comorbidites, admitted for chest pain with + Troponins, scheduled for cardiac catheterization in AM. Case d/w Dr. Owen. Ordered CBC, BMP, Troponin, EKG, CXR Lopressor 5 mg stat, nitroglycerin SL stat EKG: Sinus Tachycardia: HR 104 CXR and labs are pending will follow closely Rachel Calloway PGY2
[2017-10-16 23:55] LABS: POTASSIUM 5.1 MMOL/L (3.6-5.0)
[2017-10-16 23:56] LABS: TROPONIN I 0.032 ng/mL (0.00-0.120)
[2017-10-17 05:44] LABS: HEMATOCRIT 25.6 % (35.0-51.0); MEAN CELL VOLUME 100.6 fl (80.0-94.0); MEAN CORPUSCULAR HEMOGLOBIN 32.5 pg (27.0-31.0); MEAN CORPUSCULAR HGB CONC 32.3 g/dL (33.0-37.0); RED CELL DISTRIBUTION WIDTH 18.5 % (11.5-14.5); WHITE BLOOD COUNT 8.1 K/uL (4.8-10.8)
[2017-10-17 06:23] LABS: ALB/GLOB RATIO 1.1 (1.0-2.1); BILIRUBIN,TOTAL 0.3 mg/dl (0.2-1.3); CALCIUM 7.6 mg/dL (8.4-10.2); POTASSIUM 4.9 MMOL/L (3.6-5.0); TOTAL PROTEIN 6.4 G/DL (6.3-8.2)
--- NOTE | 2017-10-17 07:58 | RAD ---
PROCEDURE: CHEST RADIOGRAPH, 1 VIEW HISTORY: dyspnea COMPARISON: Chest radiographs 10/14/2017. FINDINGS: LUNGS: Inspiratory volume appears diminished however there is no definite infiltrate appreciate this time bilaterally. PLEURA: Trace left pleural effusion again suggested. None is seen at the right. No pneumothorax identified. CARDIOVASCULAR: Cardiac silhouette appears stable. No pulmonary vascular derangement identified. OSSEOUS STRUCTURES: No significant abnormalities. VISUALIZED UPPER ABDOMEN: Normal. OTHER FINDINGS: None. IMPRESSION: Diminished inspiratory volume appreciated however there is no definite infiltrate identified bilaterally. Trace left pleural effusion again evident.
--- NOTE | 2017-10-17 08:44 | CP.PCM.PN ---
Subjective - Date & Time of Evaluation Date of Evaluation: 10/17/17 Time of Evaluation: 07:00 - Subjective Subjective: Overnight rapid response was called because patient was complaining of chest pain associated with sob. Pt was found to be tachycardic in 110's which resolved. Troponins negative, Cxray no actue changes. This morning pt states that he was feeling very anxious and "scared" for his procedure. Currently denies CP or SOB. Reports that he is still anxious. Objective - Vital Signs/Intake and Output Vital Signs (last 24 hours): Temp Pulse Resp BP Pulse Ox 97.5 F L 74 20 118/46 L 94 L 10/17/17 08:30 10/17/17 08:30 10/17/17 08:30 10/17/17 08:30 10/17/17 08:30 - Medications Medications: Current Medications Albuterol/Ipratropium (Duoneb 3 Mg/0.5 Mg (3 Ml) Ud) 3 ml INH RQ6 PRN PRN Reason: Shortness of Breath Last Admin: 10/16/17 19:31 Dose: 3 ml Aspirin (Aspirin Chewable) 81 mg PO DAILY [facility] Last Admin: 10/16/17 08:12 Dose: 81 mg Atorvastatin Calcium (Lipitor) 10 mg PO DAILY [facility] Last Admin: 10/16/17 08:10 Dose: 10 mg Benzonatate (Tessalon Perles) 100 mg PO TID PRN PRN Reason: Cough Last Admin: 10/13/17 16:44 Dose: 100 mg Calcium Acetate (Phoslo) 1,334 mg PO TID [facility] Last Admin: 10/16/17 17:24 Dose: 1,334 mg Carvedilol (Coreg) 50 mg PO BID [facility] Last Admin: 10/16/17 19:24 Dose: 50 mg Citalopram Hydrobromide (Celexa) 20 mg PO DAILY [facility] Last Admin: 10/16/17 08:10 Dose: 20 mg Clopidogrel Bisulfate (Plavix) 75 mg PO DAILY [facility] Last Admin: 10/16/17 08:11 Dose: 75 mg Epoetin José Manuel (Procrit) 10,000 unit IV TTS [facility] Last Admin: 10/13/17 08:30 Dose: 10,000 unit Hydralazine HCl (Apresoline) 50 mg PO BID@0900,2100 [facility] Last Admin: 10/16/17 21:28 Dose: 50 mg Prednisone (Prednisone Tab) 20 mg PO DAILY [facility] Fluticasone/Salmeterol (Advair Diskus 500/50) 1 puff INH Q12 [facility] Last Admin: 10/16/17 21:28 Dose: 1 puff Vitamin B Complex/Vit C/Folic Acid (Nephro-Yemi) 1 tab PO DAILY [facility] Last Admin: 10/16/17 08:16 Dose: 1 tab - Labs Labs: 10/17/17 04:20 10/17/17 04:20 PT 13.1 Seconds (9.8-13.1) 10/13/17 06:15 INR 1.2 (0.9-1.2) 10/13/17 06:15 APTT 30.4 Seconds (25.6-37.1) 10/13/17 06:15 - Constitutional Appears: Well, Non-toxic - ENT Exam ENT Exam: Mucous Membranes Moist - Respiratory Exam Respiratory Exam: Rales. absent: Accessory Muscle Use, Wheezes, Respiratory Distress, Stridor Additional comments: Rales appreciated in left lower to mid lung magaña and right lung base. - Cardiovascular Exam Cardiovascular Exam: REGULAR RHYTHM, +S1, +S2. absent: Murmur - GI/Abdominal Exam GI & Abdominal Exam: Soft, Normal Bowel Sounds. absent: Distended, Tenderness - Extremities Exam Extremities Exam: Pedal Edema. absent: Calf Tenderness - Neurological Exam Neurological Exam: Alert, Awake, Oriented x3 - Psychiatric Exam Psychiatric exam: Normal Mood - Skin Skin Exam: Dry Assessment and Plan - Assessment and Plan (Free Text) Assessment: 67 y/o M with PMH of ESRD on HD TTS, HTN, COPD admitted due to chest pressure, cough for past 5 days. Planning for Cath procedure today at [facility] with Dr. Billingsley at 2pm. #NSTEMI -1 episode of CP associated with anxiety last night and was found to be tachycardic in 110's. Resolved after 1 dose of lopressor and SL NG. EKG Sinus Tachycardia. Cxray no acute changes. Denies current CP this morning. -Troponins elevated 0.21, 0.18, 0.15 (trending down) -EKG in ED: Sinus Tachy, left atrial enlargements -EKG on 10/14: Septal Infarct, ST wave abnormality, consider inferior ischemia, prolonged QT -Button Cutter consult appreciated- Plan for Cath tomorrow -C/w ASA, Plavix, Lipitor, Coreg 50mg BID -c/w home meds PLAN: Cath today. Will receive Ativan prior to procedure for anxiety. # SOB 2/2 COPD Exacerbation -Afebrile, no leukocytosis -Cxray (10/12) no active disease, Left sided pleural effusion c/w past imaging. Repeat Cxray- pending -C/W Rocephin -PO Prednisone 20mg -Duonebs q4 aisha -Continue monitoring respiratory function #CHF, diastolic (preserved EF), stable -Last Echo 08/22, EF 60-65% -Echo 10/16 EF 55% -BNP at baseline -C/w home meds #ESRD on HD //Mon -On HD; Pt will receive HD today after Cath procedure; Small Lot Operator made aware -Nephrology on board -C/w sevelamir, EPO, and Nephrovite #HTN -normotensive -C/w home meds #DVT ppx -Heparin held for today's procedure - #Diet -C/W Renal Diet after procedure
[2017-10-17] MEDS: Fluticasone-Salmeterol 500-50mcg Diskus INH SCH ×2 (09:50→22:00)
[2017-10-17] MEDS: Multivitamin Vitamin B Complex (Nephro-Vite) Tab PO SCH (09:52)
[2017-10-17] MEDS: EPOETIN ALFA 10,000 UNIT/ML ML IV SCH (09:53)
--- NOTE | 2017-10-17 11:02 | CP.PCM.PN ---
Subjective - Date & Time of Evaluation Date of Evaluation: 10/17/17 Time of Evaluation: 10:59 - Subjective Subjective: Patient appears to be comfortable No nausea no vomiting Appetite is good Vital signs stable Objective - Vital Signs/Intake and Output Vital Signs (last 24 hours): Temp Pulse Resp BP Pulse Ox 97.5 F L 74 20 118/46 L 94 L 10/17/17 08:30 10/17/17 09:51 10/17/17 08:30 10/17/17 09:51 10/17/17 08:30 - Medications Medications: Current Medications Albuterol/Ipratropium (Duoneb 3 Mg/0.5 Mg (3 Ml) Ud) 3 ml INH RQ6 PRN PRN Reason: Shortness of Breath Last Admin: 10/16/17 19:31 Dose: 3 ml Aspirin (Aspirin Chewable) 81 mg PO DAILY [facility] Last Admin: 10/17/17 09:51 Dose: 81 mg Atorvastatin Calcium (Lipitor) 10 mg PO DAILY [facility] Last Admin: 10/17/17 09:52 Dose: 10 mg Benzonatate (Tessalon Perles) 100 mg PO TID PRN PRN Reason: Cough Last Admin: 10/13/17 16:44 Dose: 100 mg Calcium Acetate (Phoslo) 1,334 mg PO TID [facility] Last Admin: 10/17/17 09:52 Dose: 1,334 mg Carvedilol (Coreg) 50 mg PO BID [facility] Last Admin: 10/17/17 09:51 Dose: 50 mg Citalopram Hydrobromide (Celexa) 20 mg PO DAILY [facility] Last Admin: 10/17/17 09:51 Dose: 20 mg Clopidogrel Bisulfate (Plavix) 75 mg PO DAILY [facility] Last Admin: 10/17/17 09:52 Dose: 75 mg Epoetin José Manuel (Procrit) 10,000 unit IV TTS [facility] Last Admin: 10/17/17 09:53 Dose: Not Given Hydralazine HCl (Apresoline) 50 mg PO BID@0900,2100 [facility] Last Admin: 10/17/17 09:50 Dose: 50 mg Prednisone (Prednisone Tab) 20 mg PO DAILY [facility] Last Admin: 10/17/17 09:52 Dose: 20 mg Fluticasone/Salmeterol (Advair Diskus 500/50) 1 puff INH Q12 [facility] Last Admin: 10/17/17 09:50 Dose: 1 puff Vitamin B Complex/Vit C/Folic Acid (Nephro-Yemi) 1 tab PO DAILY [facility] Last Admin: 10/17/17 09:52 Dose: 1 tab - Labs Labs: 10/17/17 04:20 10/17/17 04:20 PT 13.1 Seconds (9.8-13.1) 10/13/17 06:15 INR 1.2 (0.9-1.2) 10/13/17 06:15 APTT 30.4 Seconds (25.6-37.1) 10/13/17 06:15 - Constitutional Appears: No Acute Distress - ENT Exam ENT Exam: Mucous Membranes Moist - Neck Exam Neck Exam: absent: Lymphadenopathy - Respiratory Exam Respiratory Exam: NORMAL BREATHING PATTERN. absent: Chest Wall Tenderness, Rales - Cardiovascular Exam Cardiovascular Exam: REGULAR RHYTHM. absent: Rubs - GI/Abdominal Exam GI & Abdominal Exam: Soft, Normal Bowel Sounds - Extremities Exam Extremities Exam: absent: Calf Tenderness - Back Exam Back Exam: absent: CVA tenderness (L), CVA tenderness (R) - Neurological Exam Neurological Exam: Alert - Psychiatric Exam Psychiatric exam: Normal Affect Assessment and Plan (1) End stage renal disease Assessment & Plan: Patient with end stage renal disease admitted with atypical chest pain. Patient is going for cardiac catheterization shortly at 12:00 Patient to have dialysis postcardiac cath. Discussed with airfield services officer. Anemia continue EPO Hyperphosphatemia continue binders Hypertension continue the same medication The patient has history of having Pausi immune Vasculitis ANCA nrg. Dialysis order in place Status: Acute (2) Atypical chest pain Status: Acute
--- NOTE | 2017-10-17 17:45 | CARD ---
APPROVED REPORT EKG Measurement Heart [id number] <Conclusion> Sinus tachycardia Septal infarct, age undetermined Abnormal ECG
[2017-10-17 23:57] VITALS: RESP 20
[2017-10-18 05:53] LABS: HEMATOCRIT 27.8 % (35.0-51.0); MEAN CORPUSCULAR HEMOGLOBIN 32.4 pg (27.0-31.0); MEAN CORPUSCULAR HGB CONC 32.7 g/dL (33.0-37.0); RED CELL DISTRIBUTION WIDTH 18.4 % (11.5-14.5); WHITE BLOOD COUNT 7.1 K/uL (4.8-10.8)
[2017-10-18 06:22] LABS: CALCIUM 7.7 mg/dL (8.4-10.2); POTASSIUM 3.3 MMOL/L (3.6-5.0)
[2017-10-18 08:03] VITALS: BP 104/64; PULSE 75; TEMP 98; O2SAT 94
[2017-10-18] MEDS ORDERED: Potassium Chloride 20 mEq ER Tab PO ONE (08:26)
--- NOTE | 2017-10-18 09:18 | CP.PCM.DIS ---
Provider - Provider Date of Admission: 10/13/17 14:06 Attending physician: Quentin Chu MD Time Spent in preparation of Discharge (in minutes): 30 Hospital Course - Lab Results Lab Results: Micro Results 10/12/17 15:30 Blood-Venous Blood Culture - Final NO GROWTH AFTER 5 DAYS 10/12/17 15:30 Blood-Venous Gram Stain - Final TEST NOT PERFORMED Most Recent Lab Values WBC 7.1 K/uL (4.8-10.8) 10/18/17 04:30 RBC 2.81 Mil/uL (4.40-5.90) L 10/18/17 04:30 Hgb 9.1 g/dL (12.0-18.0) L 10/18/17 04:30 Hct 27.8 % (35.0-51.0) L 10/18/17 04:30 MCV 99.0 fl (80.0-94.0) H 10/18/17 04:30 MCH 32.4 pg (27.0-31.0) H 10/18/17 04:30 MCHC 32.7 g/dL (33.0-37.0) L 10/18/17 04:30 RDW 18.4 % (11.5-14.5) H 10/18/17 04:30 Plt Count 221 K/uL (130-400) 10/18/17 04:30 MPV 8.2 fl (7.2-11.7) 10/16/17 23:26 Neut % (Auto) 73.8 % (50.0-75.0) 10/16/17 23:26 Lymph % (Auto) 18.6 % (20.0-40.0) L 10/16/17 23:26 [place] % (Auto) 7.2 % (0.0-10.0) 10/16/17 23:26 Eos % (Auto) 0.2 % (0.0-4.0) 10/16/17 23:26 Baso % (Auto) 0.2 % (0.0-2.0) 10/16/17 23:26 Neut # 5.7 K/uL (1.8-7.0) 10/16/17 23:26 Lymph # 1.4 K/uL (1.0-4.3) 10/16/17 23:26 [place] # 0.6 K/uL (0.0-0.8) 10/16/17 23:26 Eos # 0.0 K/uL (0.0-0.7) 10/16/17 23:26 Baso # 0.0 K/uL (0.0-0.2) 10/16/17 23:26 ESR 105 mm/hr (0-20) H 10/13/17 18:48 PT 13.1 Seconds (9.8-13.1) 10/13/17 06:15 INR 1.2 (0.9-1.2) 10/13/17 06:15 APTT 30.4 Seconds (25.6-37.1) 10/13/17 06:15 D-Dimer, Quantitative 555 ng/mlDDU (0-230) H 10/13/17 13:57 Sodium 137 mmol/l (132-148) 10/18/17 04:30 Potassium 3.3 MMOL/L (3.6-5.0) L 10/18/17 04:30 Chloride 96 mmol/L (98-107) L 10/18/17 04:30 Carbon Dioxide 30 mmol/L (22-30) 10/18/17 04:30 Anion Gap 14 (10-20) 10/18/17 04:30 BUN 30 mg/dl (9-20) H 10/18/17 04:30 Creatinine 3.8 mg/dl (0.8-1.5) H 10/18/17 04:30 Est GFR ( Amer) 19 10/18/17 04:30 Est GFR (Non-Af Amer) 16 10/18/17 04:30 Random Glucose 118 mg/dL (75-110) H 10/18/17 04:30 Hemoglobin A1c 4.6 % (4.2-6.5) 10/13/17 06:15 Calcium 7.7 mg/dL (8.4-10.2) L 10/18/17 04:30 Phosphorus 3.9 mg/dl (2.5-4.5) 10/13/17 15:00 Iron 66 ug/dL (49-181) 10/13/17 18:48 Ferritin 667.0 ng/Ml (17.9-464) H 10/13/17 15:00 Total Bilirubin 0.3 mg/dl (0.2-1.3) 10/17/17 04:20 AST 21 U/L (17-59) 10/17/17 04:20 ALT 31 U/L (21-72) 10/17/17 04:20 Alkaline Phosphatase 57 U/L (38-126) 10/17/17 04:20 Troponin I 0.0320 ng/mL (0.00-0.120) 10/16/17 23:26 NT-Pro-B Natriuret Pep 77496 pg/ml (0-900) H 10/12/17 15:18 Total Protein 6.4 G/DL (6.3-8.2) 10/17/17 04:20 Albumin 3.4 g/dL (3.5-5.0) L 10/17/17 04:20 Globulin 3.0 gm/dL (2.2-3.9) 10/17/17 04:20 Albumin/Globulin Ratio 1.1 (1.0-2.1) 10/17/17 04:20 Triglycerides 80 mg/DL (0-149) D 10/13/17 06:15 Cholesterol 166 mg/dL (0-199) 10/13/17 06:15 LDL Cholesterol Direct 89 mg/dL (0-129) 10/13/17 06:15 HDL Cholesterol 43 MG/DL (30-70) 10/13/17 06:15 Thyroxine (T4) 6.69 ug/dl (5.5-11.0) 10/13/17 06:15 TSH 3rd Generation 1.26 mIU/ML (0.46-4.68) 10/13/17 06:15 Urine Color Yellow (YELLOW) 10/12/17 17:33 Urine Clarity Slighty-cloudy (Clear) 10/12/17 17:33 Urine pH 8.0 (5.0-8.0) 10/12/17 17:33 Ur Specific [place] 1.010 (1.003-1.030) 10/12/17 17:33 Urine Protein >=500 mg/dL (NEGATIVE) 10/12/17 17:33 Urine Glucose (UA) 50 mg/dL (Normal) 10/12/17 17:33 Urine Ketones Negative mg/dL (NEGATIVE) 10/12/17 17:33 Urine Blood Moderate (NEGATIVE) 10/12/17 17:33 Urine Nitrate Negative (NEGATIVE) 10/12/17 17:33 Urine Bilirubin Negative (NEGATIVE) 10/12/17 17:33 Urine Urobilinogen 0.2-1.0 mg/dL (0.2-1.0) 10/12/17 17:33 Ur Leukocyte Esterase Mod [place]/uL (Negative) 10/12/17 17:33 Urine RBC (Auto) 58 /hpf (0-3) H 10/12/17 17:33 Urine Microscopic WBC 12 /hpf (0-5) H 10/12/17 17:33 Ur Squamous Epith Cells 2 /hpf (0-5) 10/12/17 17:33 Hyaline Casts 0-2 /hpf (0-2) 10/12/17 17:33 Proteinase 3 (PR3) <1.0 AI (<1.0) 10/13/17 18:48 Myeloperoxidase Ab <1.0 AI (<1.0) 10/13/17 18:48 Hep Bs Antigen Negative (NEGATIVE) 10/14/17 13:04 Hep Bs Antibody Positive (NEGATIVE) 10/14/17 13:04 Hepatitis C Antibody Negative (NEGATIVE) 10/14/17 13:04 Influenza Typ A,B (EIA) Negative for flu a/b (NEGATIVE) 10/12/17 15:18 - Hospital Course Hospital Course: Admission Date: 10/13/17 Discharge Diagnosis: NSTEMI Hospital Course: Pt is a 67 y/o homeless male with ESRD on HD, COPD, Vasculitis, who presented to [facility] for chest pain and SOB and was found to have borderline elevated cardiac enzymes with EKG changes. Cardiac cath was completed by arresting gear operator, Dr. Billingsley, who reported 60-70% stenosis of small vessels of L Coronary circulation and recommended patient get a trial of medical therapy. Pt was also managed for COPD exacerbation, treated with duonebs, Abx, and 5 days of prednisone. On discharge, pt was hemodynamically stable and asymptomatic. Discharge Medications: Albuterol/Ipratropium (Duoneb 3 Mg/0.5 Mg (3 Ml) Ud) 3 ml INH RQ6 PRN Aspirin (Aspirin Chewable) 81 mg PO DAILY ZORAIDA (NEW RX) Atorvastatin Calcium (Lipitor) 10 mg PO DAILY ZORAIDA (NEW RX) Prednisone 10mg PO daily, 28 tablets Calcium Acetate (Phoslo) 1,334 mg PO TID [facility] Carvedilol (Coreg) 50 mg PO BID [facility] Citalopram Hydrobromide (Celexa) 20 mg PO DAILY [facility] Clopidogrel Bisulfate (Plavix) 75 mg PO DAILY [facility] Epoetin José Manuel (Procrit) 10,000 unit IV TTS [facility] Hydralazine HCl (Apresoline) 50 mg PO BID@0900,2100 [facility] Fluticasone/Salmeterol (Advair Diskus 500/50) 1 puff INH Q12 [facility] Vitamin B Complex/Vit C/Folic Acid (Nephro-Yemi) 1 tab PO DAILY [facility] Condition upon discharge: Fair Activity: Ambulating without assistance Discharge Instructions: F/U with PMD in clinic with Dr. Dorado, 10/17, 11am. Patient made aware. Discharge Exam - Head Exam Head Exam: ATRAUMATIC, NORMAL INSPECTION, NORMOCEPHALIC - ENT Exam ENT Exam: Mucous Membranes Moist - Respiratory Exam Respiratory Exam: NORMAL BREATHING PATTERN. absent: Accessory Muscle Use, Chest Wall Tenderness, Rales, Wheezes, Respiratory Distress - Cardiovascular Exam Cardiovascular Exam: REGULAR RHYTHM, +S1, +S2. absent: JVD, Systolic Murmur - GI/Abdominal Exam GI & Abdominal Exam: Diminished Bowel Sounds, Normal Bowel Sounds, Soft. absent : Organomegaly, Tenderness - Neurological Exam Neurological exam: Alert, Oriented x3 - Psychiatric Exam Psychiatric exam: Normal Affect Discharge Plan - Discharge Medications Prescriptions: Aspirin [Aspirin Chewable] 81 mg PO DAILY 30 Days #30 chew Atorvastatin [Lipitor] 10 mg PO DAILY 30 Days #30 tab predniSONE [Prednisone] 10 mg PO DAILY #28 tab - Follow Up Plan Condition: STABLE Disposition: HOME/ ROUTINE Instructions: Chest Pain (DC), End Stage Kidney Disease (DC) Referrals: [facility] [Outside]
[2017-10-18] MEDS: Fluticasone-Salmeterol 500-50mcg Diskus INH SCH (09:42)
[2017-10-18] MEDS: Multivitamin Vitamin B Complex (Nephro-Vite) Tab PO SCH (09:43)
--- NOTE | 2017-10-18 10:58 | CP.PCM.PN ---
Subjective - Date & Time of Evaluation Date of Evaluation: 10/18/17 Time of Evaluation: 10:55 - Subjective Subjective: Patient feeling okay status post cardiac catheterization and also he completed hemodialysis early this morning. Sedimentation rate noted to be high 103 ANCA pending Patient doing much better Physical exam Chest no rales Heart no rubs Abdomen soft Extremities no edema Impression and plan End stage renal disease we will continue to have dialysis as outpatient. I suggest to continue with the steroid . Patient was on prednisone 20 mg I suggest to continual and taper it slowly over the period of couple weeks. Objective - Vital Signs/Intake and Output Vital Signs (last 24 hours): Temp Pulse Resp BP Pulse Ox 98.0 F 75 20 104/64 94 L 10/18/17 08:03 10/18/17 09:43 10/18/17 08:03 10/18/17 09:43 10/18/17 08:03 - Medications Medications: Current Medications Albuterol/Ipratropium (Duoneb 3 Mg/0.5 Mg (3 Ml) Ud) 3 ml INH RQ6 PRN PRN Reason: Shortness of Breath Last Admin: 10/16/17 19:31 Dose: 3 ml Aspirin (Aspirin Chewable) 81 mg PO DAILY [facility] Last Admin: 10/18/17 09:42 Dose: 81 mg Atorvastatin Calcium (Lipitor) 10 mg PO DAILY [facility] Last Admin: 10/18/17 09:43 Dose: 10 mg Benzonatate (Tessalon Perles) 100 mg PO TID PRN PRN Reason: Cough Last Admin: 10/13/17 16:44 Dose: 100 mg Calcium Acetate (Phoslo) 1,334 mg PO TID [facility] Last Admin: 10/18/17 09:44 Dose: 1,334 mg Carvedilol (Coreg) 50 mg PO BID [facility] Last Admin: 10/18/17 09:43 Dose: 50 mg Citalopram Hydrobromide (Celexa) 20 mg PO DAILY [facility] Last Admin: 10/18/17 09:43 Dose: 20 mg Clopidogrel Bisulfate (Plavix) 75 mg PO DAILY [facility] Last Admin: 10/18/17 09:44 Dose: 75 mg Epoetin José Manuel (Procrit) 10,000 unit IV TTS [facility] Last Admin: 10/17/17 09:53 Dose: Not Given Hydralazine HCl (Apresoline) 50 mg PO BID@0900,2100 [facility] Last Admin: 10/18/17 09:42 Dose: 50 mg Fluticasone/Salmeterol (Advair Diskus 500/50) 1 puff INH Q12 [facility] Last Admin: 10/18/17 09:42 Dose: 1 puff Vitamin B Complex/Vit C/Folic Acid (Nephro-Yemi) 1 tab PO DAILY [facility] Last Admin: 10/18/17 09:43 Dose: 1 tab - Labs Labs: 10/18/17 04:30 10/18/17 04:30 PT 13.1 Seconds (9.8-13.1) 10/13/17 06:15 INR 1.2 (0.9-1.2) 10/13/17 06:15 APTT 30.4 Seconds (25.6-37.1) 10/13/17 06:15 Assessment and Plan (1) End stage renal disease Status: Acute (2) Atypical chest pain Status: Acute
== END 2017-10-18 13:46 | disposition home or self-care (01) | DRG 121 ==
LOC: H.ER 14:39 → H.ERHOLD 16:49 → H.TEL 21:47 → OBSVTOIN 10-13 14:06
PROVIDERS: ADMIT Family Medicine; ATTEND Family Medicine
PROC: 3E0F73Z Introduction of Anti-inflammatory into Respiratory Tract, Via Natural or Artificial Opening (ICD-10-PCS; 2017-10-13)
PROC: 5A1D70Z Performance of Urinary Filtration, Intermittent, Less than 6 Hours Per Day (ICD-10-PCS; principal; 2017-10-14)
PROC: 4A023N7 Measurement of Cardiac Sampling and Pressure, Left Heart, Percutaneous Approach (ICD-10-PCS; 2017-10-17)
PROC: B206YZZ Plain Radiography of Right and Left Heart using Other Contrast (ICD-10-PCS; 2017-10-17)
DX: I21.4 Non-ST elevation (NSTEMI) myocardial infarction (principal); I48.0 Paroxysmal atrial fibrillation; I42.9 Cardiomyopathy, unspecified; I13.2 Hypertensive heart and chronic kidney disease with heart failure and with stage 5 chronic kidney disease, or end stage renal disease; I50.33 Acute on chronic diastolic (congestive) heart failure; J44.1 Chronic obstructive pulmonary disease with (acute) exacerbation; E83.39 Other disorders of phosphorus metabolism; N18.6 End stage renal disease; I35.1 Nonrheumatic aortic (valve) insufficiency; I49.3 Ventricular premature depolarization; N25.81 Secondary hyperparathyroidism of renal origin; I77.6 Arteritis, unspecified; D64.9 Anemia, unspecified; F41.9 Anxiety disorder, unspecified; F10.10 Alcohol abuse, uncomplicated; Z99.2 Dependence on renal dialysis; Z88.2 Allergy status to sulfonamides; Z59.0 Homelessness; Z79.02 Long term (current) use of antithrombotics/antiplatelets; Z86.11 Personal history of tuberculosis; Z86.718 Personal history of other venous thrombosis and embolism; Z87.01 Personal history of pneumonia (recurrent); Z87.891 Personal history of nicotine dependence

== ENCOUNTER 2017-11-19 11:54 | Inpatient (IN) | payer MEDICAID, OTHER, SELFPAY ==
[2017-11-19 11:54] VITALS: BMI 25.8
[2017-11-19] MEDS ORDERED: Albuterol-Ipratrop 3 mg / 0.5 (3 ml) UD IH STA (12:20)
--- NOTE | 2017-11-19 12:24 | ED PDOC ---
HPI: Chest Pain Time Seen by Provider: 11/19/17 12:08 Chief Complaint (Nursing): Chest Pain History Per: Patient Onset/Duration Of Symptoms: Days (2) Current Symptoms Are (Timing): Still Present Severity: Mild Pain Scale Rating Of: 2 Quality: Tightness Associated Symptoms: Dyspnea Additional Complaint(s): Chest tightness assoc with SOB since dialysis yesterday. Completed 3 hrs of dialysis yesterday. Denies cough or fever. Past Medical History Vital Signs: Last Vital Signs Temp 97.5 F L 11/19/17 11:58 Pulse 122 H 11/19/17 12:58 Resp 16 11/19/17 11:58 BP 136/57 L 11/19/17 11:58 Pulse Ox 100 11/19/17 12:24 - Medical History PMH: Anemia, Anxiety, Arthritis, CHF, COPD, Depression, Deep Vein Thrombosis ( RUE), HTN, Pneumonia, End Stage Renal Disease, Chronic Kidney Disease, Seizures Denies: HIV - Surgical History Surgical History: Denies: Coronary Stent - Family History Family History: States: Unknown Family Hx - Immunization History Hx Tetanus Toxoid Vaccination: No Hx Influenza Vaccination: Yes Hx Pneumococcal Vaccination: Yes - Home Medications Home Medications: Ambulatory Orders Medication Instructions Recorded Clopidogrel [Plavix] 75 mg PO DAILY #30 07/03/17 Sevelamer Carbonate [Renvela] 2 tab PO TID 08/17/17 B Complex W-C No.20/Folic Acid 1 mg PO DAILY 30 Days #30 capsule 09/26/17 [Renal Caps Softgel] Calcium Acetate [Phoslo] 1,334 mg PO TID #90 capsule 09/26/17 Carvedilol [Coreg] 50 mg PO BID #60 tab 09/26/17 Citalopram Hydrobromide [Celexa] 20 mg PO DAILY 30 Days #30 tablet 09/26/17 Epoetin José Manuel [Procrit] 10,000 unit IV TTS ml 09/26/17 Fluticasone/Salmeterol 500/50 1 puff INH Q12 30 Days #1 puff 09/26/17 [Advair Diskus 500/50] hydrALAZINE [Apresoline] 50 mg PO BID #60 tab 09/26/17 Aspirin [Aspirin Chewable] 81 mg PO DAILY 30 Days #30 chew 10/18/17 Atorvastatin [Lipitor] 10 mg PO DAILY 30 Days #30 tab 10/18/17 Vitamin B Complex/Vit C/Folic 1 tab PO DAILY tab 10/18/17 [Nephro-Yemi] predniSONE [Prednisone] 10 mg PO DAILY #28 tab 10/18/17 - Allergies Allergies/Adverse Reactions: Allergies Allergy/AdvReac Type Severity Reaction Status Date / Time sulfamethoxazole Allergy RASH Verified 10/12/17 15:04 [From ] trimethoprim [From ] Allergy RASH Verified 10/12/17 15:04 Review of Systems ROS Statement: Except As Marked, All Systems Reviewed And Found Negative Cardiovascular: Positive for: Chest Pain Respiratory: Positive for: Shortness of Breath Physical Exam - Reviewed Nursing Documentation Reviewed: Yes Vital Signs Reviewed: Yes - Physical Exam Appears: Positive for: Non-toxic, No Acute Distress Head Exam: Positive for: ATRAUMATIC, NORMAL INSPECTION, NORMOCEPHALIC Skin: Positive for: Normal Color, Warm, DRY Eye Exam: Positive for: EOMI, Normal appearance, PERRL ENT: Positive for: Normal ENT Inspection Neck: Positive for: Normal, Painless ROM Cardiovascular/Chest: Positive for: Regular Rate, Rhythm Respiratory: Positive for: Rhonchi, Wheezing. Negative for: Respiratory Distress Gastrointestinal/Abdominal: Positive for: Normal Exam, Bowel Sounds, Soft Back: Positive for: Normal Inspection Extremity: Positive for: Normal ROM Neurologic/Psych: Positive for: Alert, Oriented - Laboratory Results Result Diagrams: 11/19/17 12:30 11/19/17 12:30 - ECG O2 Sat by Pulse Oximetry: 100 Disposition - Clinical Impression Clinical Impression: Chest pain - Patient ED Disposition Is Patient to be Admitted: Yes - Disposition Disposition Time: 13:53 Condition: FAIR Forms: [facility] (Eritrean) - Pt Status Changed To: Hospital Disposition Of: Observation - POA Present On Arrival: None
[2017-11-19] MEDS ORDERED: Albuterol-Ipratrop 3 mg / 0.5 (3 ml) UD ONE (12:34)
[2017-11-19 12:41] LABS: BASO # 0.1 K/uL (0.0-0.2); BASO % 0.9 % (0.0-2.0); EOS # 0.3 K/uL (0.0-0.7); EOS % 5.7 % (0.0-4.0); HEMOGLOBIN 10.2 g/dL (12.0-18.0); LYMPH # 2.2 K/uL (1.0-4.3); LYMPH % 36.2 % (20.0-40.0); MEAN CELL VOLUME 101.7 fl (80.0-94.0); MEAN CORPUSCULAR HEMOGLOBIN 32.9 pg (27.0-31.0); MEAN CORPUSCULAR HGB CONC 32.3 g/dL (33.0-37.0); MEAN PLATELET VOLUME 7.5 fl (7.2-11.7); MONO # 0.7 K/uL (0.0-0.8); MONO % 11.9 % (0.0-10.0); NEUT # 2.7 K/uL (1.8-7.0); NEUT % 45.3 % (50.0-75.0); NRBC % 0.1 % (0.0-0.0); RBC 3.09 Mil/uL (4.40-5.90); RED CELL DISTRIBUTION WIDTH 18.5 % (11.5-14.5)
[2017-11-19 12:54] LABS: ALB/GLOB RATIO 1.2 (1.0-2.1); ALBUMIN 4.1 g/dL (3.5-5.0); ALT/SGPT 27 U/L (21-72); AST/SGOT 19 U/L (17-59); BLOOD UREA NITROGEN 44 mg/dl (9-20); CALCIUM 8.7 mg/dL (8.4-10.2); GFR AFRICAN-AMERICAN 11; GFR NON-AFRICAN AMERICAN 9
[2017-11-19] MEDS ORDERED: Enoxaparin 80 mg Syringe SC STA (13:54)
--- NOTE | 2017-11-19 14:26 | RAD ---
HISTORY: SOB COMPARISON: Chest radiograph dated 10/17/2017. TECHNIQUE: Chest PA and lateral FINDINGS: LUNGS: No active pulmonary disease. PLEURA: Small left pleural effusion and/or pleural thickening. No pneumothorax apparent. CARDIOVASCULAR: Normal. OSSEOUS STRUCTURES: Unchanged. VISUALIZED UPPER ABDOMEN: Normal. OTHER FINDINGS: None. IMPRESSION: Small left pleural effusion and/or pleural thickening.
--- NOTE | 2017-11-19 14:56 | CP.PCM.HP ---
History of Present Illness - History of Present Illness History of Present Illness: 67 y/o M with PMH of ESRD on HD TTHS, HTN, COPD, vasculitis, presents to ED c/ o chest pain. Patient reports intermittent episodes of middle retrosternal chest pain for 1-2 months, the CP starts when he goes for a walk, pressure like quality, intensity 2-3/10, sometimes radiating to his back, lasts for 30-60 mins , worsening when lying flat on his back, improves and resolves when at rest, and leaning forward. As per patient he came c/o similar chest pain which resolved after ED intervention ( aspirin, duoneb). Denies chest pain at this evaluation. Also patient is c/o 1 week of worsening productive cough associated with green sputum production, denies hemoptysis. Denies fevers, and chills, but reports 2 episodes of being sweating at night. States that his baseline SOB has been unchanged. Patient had his dialysis done yesterday, and he was told to come to the hospital for evaluation because increase heart rate. Patient denies palpitations. Denies N/V, abdominal pain, diarrheas, urinary symptoms or hematuria. As per patient he ran out of carvedilol 3 days ago. PMD: [facility] PMHX: ESRD, HTN, COPD, ANCA Vasculitis, DVT of RUE, CHF with mild Diastolic dysfunction, preserved EF: 60-65%, mild aortic insufficiency. Medications: As per med rec Allergies: TMP/SMX Social: former smoker surgical : AV fistula Family hx denies No advanced directives Ed course lbs:L CBC, CMP, d-dimers, troponin I EKG, CXR aspirin, lovenox 70 mg, duoneb once Present on Admission - Present on Admission Any Indicators Present on Admission: No History of DVT/PE: Yes History of Uncontrolled Diabetes: No Urinary Catheter: No Decubitus Ulcer Present: No Review of Systems - Review of Systems All systems: reviewed and no additional remarkable complaints except (as per HPI ) Past Patient History - Infectious Disease Hx of Infectious Diseases: None - Past Medical History & Family History Past Medical History?: Yes - Past Social History Smoking Status: Former Smoker - CARDIAC Hx Cardiac Disorders: Yes - PULMONARY Hx Respiratory Disorders: Yes - NEUROLOGICAL Hx Seizures: Yes - HEENT Hx HEENT Problems: No - RENAL Hx Chronic Kidney Disease: Yes - ENDOCRINE/METABOLIC Hx Endocrine Disorders: No - HEMATOLOGICAL/ONCOLOGICAL Hx Anemia: Yes Hx Human Immunodeficiency Virus (HIV): No - INTEGUMENTARY Hx Dermatological Problems: No - MUSCULOSKELETAL/RHEUMATOLOGICAL Hx Arthritis: Yes - GASTROINTESTINAL Hx Gastrointestinal Disorders: Yes Hx Hemorrhoids: Yes - GENITOURINARY/GYNECOLOGICAL Hx Genitourinary Disorders: No - PSYCHIATRIC Hx Psychophysiologic Disorder: Yes - SURGICAL HISTORY Hx Coronary Stent: No - ANESTHESIA Hx Anesthesia: Yes Hx Anesthesia Reactions: No Hx Malignant Hyperthermia: No Meds Allergies/Adverse Reactions: Allergies Allergy/AdvReac Type Severity Reaction Status Date / Time sulfamethoxazole Allergy RASH Verified 11/19/17 14:08 [From ] trimethoprim [From ] Allergy RASH Verified 11/19/17 14:08 Physical Exam - Constitutional Appears: Non-toxic, No Acute Distress - Eye Exam Eye Exam: Normal appearance - ENT Exam ENT Exam: Mucous Membranes Moist - Respiratory Exam Respiratory Exam: Decreased Breath Sounds (mild decreased BS in lung bases bilateral), Clear to Auscultation Bilateral (upper and middle lobes), NORMAL BREATHING PATTERN. absent: Accessory Muscle Use, Chest Wall Tenderness, Rales, Rhonchi, Wheezes, Respiratory Distress, Stridor - Cardiovascular Exam Cardiovascular Exam: Tachycardia, REGULAR RHYTHM, RRR, +S1, +S2. absent: JVD - GI/Abdominal Exam GI & Abdominal Exam: Normal Bowel Sounds, Soft. absent: Distended, Guarding, Rigid, Tenderness - Extremities Exam Extremities exam: Positive for: normal inspection, pedal pulses present. Negative for: calf tenderness, pedal edema Additional comments: Amanda's sign negative bilateral - Neurological Exam Neurological exam: Alert, Oriented x3 - Skin Skin Exam: Dry, Intact, Normal Color Results - Vital Signs Recent Vital Signs: Last Vital Signs Temp 97.5 F L 11/19/17 11:58 Pulse 112 H 11/19/17 14:22 Resp 16 11/19/17 14:22 BP 122/64 11/19/17 14:22 Pulse Ox 98 11/19/17 14:19 - Labs Result Diagrams: 11/19/17 12:30 11/19/17 12:30 Labs: Laboratory Results - last 24 hr 11/19/17 11/19/17 11/19/17 12:30 12:30 14:20 WBC 6.0 RBC 3.09 L Hgb 10.2 L Hct 31.4 L MCV 101.7 H D MCH 32.9 H MCHC 32.3 L RDW 18.5 H Plt Count 183 MPV 7.5 Neut % (Auto) 45.3 L Lymph % (Auto) 36.2 [place] % (Auto) 11.9 H Eos % (Auto) 5.7 H Baso % (Auto) 0.9 Neut # 2.7 Lymph # 2.2 [place] # 0.7 Eos # 0.3 Baso # 0.1 D-Dimer, Quantitative 755 H Sodium 139 Potassium 4.9 Chloride 96 L Carbon Dioxide 29 Anion Gap 19 BUN 44 H Creatinine 6.2 H Est GFR ( Amer) 11 Est GFR (Non-Af Amer) 9 Random Glucose 99 Calcium 8.7 Total Bilirubin 0.4 AST 19 ALT 27 Alkaline Phosphatase 69 Troponin I < 0.0120 Total Protein 7.6 Albumin 4.1 Globulin 3.5 Albumin/Globulin Ratio 1.2 Assessment & Plan - Assessment and Plan (Free Text) Assessment: 67 y/o M with PMH of ESRD on HD TTHS, HTN, COPD, vasculitis admitted with chest pain and tachycardia to r/o ACS and PE. Plan: Chest pain R/O ACS vs PE -admit to telemetry -Continues relationship consultant -h/o NSTEMI -afebrile, tachy, normal oxygen sat in room air -c/w aspirin, plavix, statin, and coreg -s/p Lovenox 70 mg SC once -EKG on ED : sinus tachycardia, no acute ST-T wave changes -troponin I x 1 neg -D-dimers elevated 755 -CXR showed small left pleural effusion and/or pleural thickening -f/u Troponin I x 2 Q8h -f/u repeat EKG in AM -f/u pro-BNP: [place] test [place] 10/12/17 was [id number] -Cardiology consult if needed -Cardiac cath was done on 10/17/17 by mobile development manager, Dr. Miles, who reported 60-70% stenosis of small vessels of L Coronary circulation and recommended patient get a trial of medical therapy(on aspirin, plavix, coreg, and statin) Tachycardia -unclear etiology -EKG showed sinus tachycardia, no evidence of A Fib or flutter -cont relationship consultant -resume home carvedilol 50 mg PO BID -f/u BP and HR -ECHO on 10/14/17 showed normal left ventricular function and EF. severe aortic and mitral regurgitation. Left atrium moderately dilated -Cardiology consult if needed HTN -Controlled -resume home Carvedilol 50 mg BID -resume Hydralazine 50 mg BID. Will hold today PM dose because BP 120s/60, and will given coreg -f/u BP COPD -does not seem to be in exacerbation, baseline SOB, cough improving after admission -no leukocytosis -resume home -flut/salm inh BID -duoneb PRN ESRD on HD -had HD yesterday -HD on Monday, and Monday -c/w -Nephrology consult if still in house for HD on monday -C/w sevelamir, EPO, and Nephrovite DVT prophylaxis SCDs/ heparin - Date & Time Date: 11/19/17 Time: 14:00
[2017-11-19] MEDS ORDERED: Albuterol-Ipratrop 3 mg / 0.5 (3 ml) UD INH PRN (15:12)
[2017-11-19] MEDS: guaiFENesin DM 200 mg-20 mg/10 ml UD PO SCH (22:03)
[2017-11-19] MEDS: Fluticasone-Salmeterol 500-50mcg Diskus INH SCH (22:03)
[2017-11-20] MEDS: guaiFENesin DM 200 mg-20 mg/10 ml UD PO SCH ×4 (04:20→21:16)
[2017-11-20 05:25] LABS: BASO % 0.6 % (0.0-2.0); EOS # 0.3 K/uL (0.0-0.7); EOS % 5.4 % (0.0-4.0); HEMOGLOBIN 9.9 g/dL (12.0-18.0); LYMPH # 1.9 K/uL (1.0-4.3); LYMPH % 36.3 % (20.0-40.0); MEAN CELL VOLUME 101.8 fl (80.0-94.0); MEAN CORPUSCULAR HGB CONC 32.4 g/dL (33.0-37.0); MEAN PLATELET VOLUME 7.6 fl (7.2-11.7); MONO # 0.6 K/uL (0.0-0.8); MONO % 11.4 % (0.0-10.0); NEUT # 2.4 K/uL (1.8-7.0); NEUT % 46.3 % (50.0-75.0); NRBC % 0.2 % (0.0-0.0); RBC 2.99 Mil/uL (4.40-5.90); RED CELL DISTRIBUTION WIDTH 18.3 % (11.5-14.5); WHITE BLOOD COUNT 5.1 K/uL (4.8-10.8)
[2017-11-20] MEDS ORDERED: Sod Polystyrene Sulf 15 gm/60 ml Susp PO ONE ×3 (06:10→10:52)
--- NOTE | 2017-11-20 07:39 | CP.PCM.PN ---
Subjective - Date & Time of Evaluation Date of Evaluation: 11/20/17 Time of Evaluation: 07:39 - Subjective Subjective: No acute overnight events. Pt refusing to speak to MD. Unable to examine pt, refusing. [employer] used to translate [id number]. Objective - Vital Signs/Intake and Output Vital Signs (last 24 hours): Temp Pulse Resp BP Pulse Ox 97.6 F 113 H 18 111/55 L 94 L 11/20/17 05:33 11/20/17 05:33 11/20/17 05:33 11/20/17 05:33 11/20/17 05:33 - Medications Medications: Current Medications Albuterol/Ipratropium (Duoneb 3 Mg/0.5 Mg (3 Ml) Ud) 3 ml INH RQ4 PRN PRN Reason: Shortness of Breath Aspirin (Aspirin Chewable) 81 mg PO DAILY [facility] Atorvastatin Calcium (Lipitor) 10 mg PO DAILY [facility] Last Admin: 11/19/17 22:03 Dose: Not Given Calcium Acetate (Phoslo) 1,334 mg PO TID [facility] Last Admin: 11/19/17 17:21 Dose: 1,334 mg Carvedilol (Coreg) 50 mg PO BID [facility] Last Admin: 11/19/17 17:20 Dose: 50 mg Citalopram Hydrobromide (Celexa) 20 mg PO DAILY [facility] Last Admin: 11/19/17 17:19 Dose: 20 mg Clopidogrel Bisulfate (Plavix) 75 mg PO DAILY [facility] Epoetin José Manuel (Procrit) 10,000 unit IV TTS [facility] Guaifenesin/Dextromethorphan (Robitussin Dm) 10 ml PO Q6 [facility] Last Admin: 11/20/17 04:20 Dose: Not Given Heparin Sodium (Porcine) (Heparin) 5,000 units SC Q12 [facility] PRN Reason: Protocol Home Med (Sevelamer Carbonate [Renvela]) 2 tab PO TID [facility] Hydralazine HCl (Apresoline) 50 mg PO BID [facility] Last Admin: 11/19/17 16:30 Dose: Not Given Fluticasone/Salmeterol (Advair Diskus 500/50) 1 puff INH Q12 [facility] Last Admin: 11/19/17 22:03 Dose: Not Given Vitamin B Complex/Vit C/Folic Acid (Nephro-Yemi) 1 tab PO DAILY [facility] - Labs Labs: 11/20/17 04:20 11/20/17 04:20 APTT 32.3 Seconds (25.6-37.1) 11/20/17 04:20 - Constitutional Appears: No Acute Distress, Other (Pt refusing to be examined by MD) Assessment and Plan - Assessment and Plan (Free Text) Assessment: Assessment/Plan: 67 YO male with PMH of ESRD on HD (, , mon), HTN, NSTEMI, COPD, vasculitis admitted with chest pain and tachycardia to r/o ACS and PE. 1) Chest pain -likely 2/2 to CAD -Cardiac cath was done on 10/17/17 by firearms inspector, Dr. Miles, who reported 60-70% stenosis of small vessels of L Coronary circulation and recommended patient get a trial of medical therapy -R/O ACS vs PE -trops neg x 2 -EKG on ED : sinus tachycardia rate of 117, no acute ST-T wave changes -Repeat EKG this AM: read by me, sinus tachycadia with rate of , no acute ST changes -D-dimer elevated 755 -CXR showed small left pleural effusion and/or pleural thickening -pro-BNP: 31636 improved from previously, 81596 10/12/17 -continue aspirin, plavix, statin, and coreg -pending VQ scan, follow up -Cardiology consulted, pending recs 2) Tachycardia -unclear etiology -surveillance monitor with sinus tachycardia, no evidence of A Fib or flutter -cont patient monitor -resume home carvedilol 50 mg PO BID -ECHO on 10/14/17 showed normal left ventricular function and EF. severe aortic and mitral regurgitation. Left atrium moderately dilated 3) HTN -Controlled -resume home Carvedilol 50 mg BID -resume Hydralazine 50 mg BID. Will hold today PM dose because BP 120s/60, and will given coreg -monitor 4) COPD -stable -baseline SOB, cough improving after admission -resume home meds -flut/salm inh BID -duoneb PRN 5) ESRD on HD -bun/crea /7.5 -HD on Monday, and Monday -Nephrology consult appreciated, HD tomorrow -HD today if needed -C/w sevelamir, EPO, and Nephrovite 6) Macrocytic Anemia -stable -hb/hct 9.9/30.5 with HCV 101.8 -continue procrit -likely 2/2 to ESRD 7) Electrolyte Imbalance -likely 2/2 to ESRD -K 6.1, Mg 2.5, phos 8.8 -continue calcium acetate -kayexalate 30mg ordered -Per Nephro recs, will repeat K at 3PM and order another kayexalate 30mg, if needed -HD tomorrow 8) DVT prophylaxis SCDs/ heparin
[2017-11-20] MEDS ORDERED: Sodium Chloride 0.9% 1,000 ML IV SCH (08:00)
[2017-11-20 08:30] LABS: MAGNESIUM 2.5 MG/DL (1.6-2.3)
[2017-11-20] MEDS: Fluticasone-Salmeterol 500-50mcg Diskus INH SCH ×2 (08:46→21:15)
[2017-11-20] MEDS: Multivitamin Vitamin B Complex (Nephro-Vite) Tab PO SCH (08:47)
[2017-11-20] MEDS ORDERED: Multivitamin Vitamin B Complex (Nephro-Vite) Tab PO SCH (09:00)
--- NOTE | 2017-11-20 10:34 | CP.PCM.CON ---
History of Present Illness - History of Present Illness History of Present Illness: Patient is is 67 years of age nontender man with end stage renal disease on maintenance hemodialysis TTS. He presented to the emergency room complaining go for intermittent chest pain As described by the history and physical examination Gen. has been having this problem intermittently His past medical history is significant for a multitude of medical problem PMHX: ESRD, HTN, COPD, ANCA neg. Vasculitis, DVT of RUE, CHF with mild Diastolic dysfunction, preserved EF: 60-65%, mild aortic insufficiency. Patient has showed previous admission for anemia with a blood transfusion and pneumonia in the past patient was treated with Cytoxan for 6 months in the past for vasculitis. Patient receiving dialysis as outpatient Review of Systems - Constitutional Constitutional: Malaise. absent: Chills, Excessive Sweating, Night Sweats - Cardiovascular Cardiovascular: Chest Pain. absent: Dyspnea, Edema, Leg Edema - Respiratory Respiratory: absent: Cough, Hemoptysis, Chest Congestion - Gastrointestinal Gastrointestinal: absent: Abdominal Pain, Bloating, Coffee Ground Emesis, Cramping - Reproductive: Male Reproductive:Male: As Per HPI - Musculoskeletal Musculoskeletal: Muscle Weakness - Neurological Neurological: absent: Confusion, Dizziness, Numbness, Focal Weakness - Psychiatric Psychiatric: As Per HPI - Endocrine Endocrine: Fatigue - Hematologic/Lymphatic Hematologic: absent: Easy Bleeding Past Patient History - Infectious Disease Hx of Infectious Diseases: None - Past Medical History & Family History Past Medical History?: Yes - Past Social History Smoking Status: Former Smoker - CARDIAC Hx Cardiac Disorders: Yes - PULMONARY Hx Respiratory Disorders: Yes - NEUROLOGICAL Hx Seizures: Yes - HEENT Hx HEENT Problems: No - RENAL Hx Chronic Kidney Disease: Yes - ENDOCRINE/METABOLIC Hx Endocrine Disorders: No - HEMATOLOGICAL/ONCOLOGICAL Hx Anemia: Yes Hx Human Immunodeficiency Virus (HIV): No - INTEGUMENTARY Hx Dermatological Problems: No - MUSCULOSKELETAL/RHEUMATOLOGICAL Hx Arthritis: Yes - GASTROINTESTINAL Hx Gastrointestinal Disorders: Yes Hx Hemorrhoids: Yes - GENITOURINARY/GYNECOLOGICAL Hx Genitourinary Disorders: No - PSYCHIATRIC Hx Psychophysiologic Disorder: Yes - SURGICAL HISTORY Hx Coronary Stent: No - ANESTHESIA Hx Anesthesia: Yes Hx Anesthesia Reactions: No Hx Malignant Hyperthermia: No Meds Allergies/Adverse Reactions: Allergies Allergy/AdvReac Type Severity Reaction Status Date / Time sulfamethoxazole Allergy RASH Verified 11/19/17 14:08 [From ] trimethoprim [From ] Allergy RASH Verified 11/19/17 14:08 - Medications Medications: Current Medications Albuterol/Ipratropium (Duoneb 3 Mg/0.5 Mg (3 Ml) Ud) 3 ml INH RQ4 PRN PRN Reason: Shortness of Breath Aspirin (Aspirin Chewable) 81 mg PO DAILY [facility] Last Admin: 11/20/17 08:50 Dose: 81 mg Atorvastatin Calcium (Lipitor) 10 mg PO DAILY [facility] Last Admin: 11/20/17 08:47 Dose: 10 mg Calcium Acetate (Phoslo) 1,334 mg PO TID [facility] Last Admin: 11/20/17 08:47 Dose: 1,334 mg Carvedilol (Coreg) 50 mg PO BID [facility] Last Admin: 11/20/17 08:49 Dose: 50 mg Citalopram Hydrobromide (Celexa) 20 mg PO DAILY [facility] Last Admin: 11/20/17 08:47 Dose: 20 mg Clopidogrel Bisulfate (Plavix) 75 mg PO DAILY [facility] Last Admin: 11/20/17 08:50 Dose: 75 mg Epoetin José Manuel (Procrit) 10,000 unit IV TTS [facility] Guaifenesin/Dextromethorphan (Robitussin Dm) 10 ml PO Q6 [facility] Last Admin: 11/20/17 09:00 Dose: 10 ml Heparin Sodium (Porcine) (Heparin) 5,000 units SC Q12 [facility] PRN Reason: Protocol Last Admin: 11/20/17 08:49 Dose: Not Given Home Med (Sevelamer Carbonate [Renvela]) 2 tab PO TID [facility] Hydralazine HCl (Apresoline) 50 mg PO BID [facility] Last Admin: 11/19/17 16:30 Dose: Not Given Sodium Chloride (Sodium Chloride 0.9%) 1,000 mls @ 100 mls/hr IV .Q10H [facility] Stop: 11/21/17 08:00 Last Admin: 11/20/17 08:58 Dose: 100 mls/hr Fluticasone/Salmeterol (Advair Diskus 500/50) 1 puff INH Q12 [facility] Last Admin: 11/20/17 08:46 Dose: 1 puff Vitamin B Complex/Vit C/Folic Acid (Nephro-Yemi) 1 tab PO DAILY [facility] Last Admin: 11/20/17 08:47 Dose: 1 tab Physical Exam - Constitutional Appears: No Acute Distress - ENT Exam ENT Exam: Mucous Membranes Moist - Neck Exam Neck exam: Negative for: Lymphadenopathy - Respiratory Exam Respiratory Exam: NORMAL BREATHING PATTERN. absent: Chest Wall Tenderness, Rales - Cardiovascular Exam Cardiovascular Exam: REGULAR RHYTHM. absent: Gallop, Rubs - GI/Abdominal Exam GI & Abdominal Exam: Normal Bowel Sounds. absent: Guarding - Extremities Exam Extremities exam: Negative for: calf tenderness - Back Exam Back exam: absent: CVA tenderness (L), CVA tenderness (R) - Neurological Exam Neurological exam: Alert - Psychiatric Exam Psychiatric exam: Normal Affect - Skin Skin Exam: Intact Results - Vital Signs Recent Vital Signs: Last Vital Signs Temp 97.8 F 11/20/17 08:07 Pulse 115 H 11/20/17 08:49 Resp 18 11/20/17 08:07 BP 120/53 L 11/20/17 08:49 Pulse Ox 99 11/20/17 08:07 - Labs Result Diagrams: 11/20/17 04:20 11/20/17 04:20 Labs: Laboratory Results - last 24 hr 11/19/17 11/19/17 11/19/17 12:30 12:30 14:20 WBC 6.0 RBC 3.09 L Hgb 10.2 L Hct 31.4 L MCV 101.7 H D MCH 32.9 H MCHC 32.3 L RDW 18.5 H Plt Count 183 MPV 7.5 Neut % (Auto) 45.3 L Lymph % (Auto) 36.2 [place] % (Auto) 11.9 H Eos % (Auto) 5.7 H Baso % (Auto) 0.9 Neut # 2.7 Lymph # 2.2 [place] # 0.7 Eos # 0.3 Baso # 0.1 APTT D-Dimer, Quantitative 755 H Sodium 139 Potassium 4.9 Chloride 96 L Carbon Dioxide 29 Anion Gap 19 BUN 44 H Creatinine 6.2 H Est GFR ( Amer) 11 Est GFR (Non-Af Amer) 9 Random Glucose 99 Calcium 8.7 Phosphorus Magnesium Total Bilirubin 0.4 AST 19 ALT 27 Alkaline Phosphatase 69 Troponin I < 0.0120 NT-Pro-B Natriuret Pep Total Protein 7.6 Albumin 4.1 Globulin 3.5 Albumin/Globulin Ratio 1.2 11/19/17 11/19/17 11/20/17 20:28 20:30 04:20 WBC RBC Hgb Hct MCV MCH MCHC RDW Plt Count MPV Neut % (Auto) Lymph % (Auto) [place] % (Auto) Eos % (Auto) Baso % (Auto) Neut # Lymph # [place] # Eos # Baso # APTT D-Dimer, Quantitative Sodium 137 Potassium 6.1 H Chloride 98 Carbon Dioxide 24 Anion Gap 21 H BUN 56 H Creatinine 7.5 H* D Est GFR ( Amer) 9 Est GFR (Non-Af Amer) 7 Random Glucose 81 Calcium 8.0 L Phosphorus Magnesium Total Bilirubin AST ALT Alkaline Phosphatase Troponin I 0.0130 NT-Pro-B Natriuret Pep 72020 H Total Protein Albumin Globulin Albumin/Globulin Ratio 11/20/17 11/20/17 11/20/17 04:20 04:20 08:20 WBC 5.1 RBC 2.99 L Hgb 9.9 L Hct 30.5 L MCV 101.8 H MCH 33.0 H MCHC 32.4 L RDW 18.3 H Plt Count 185 MPV 7.6 Neut % (Auto) 46.3 L Lymph % (Auto) 36.3 [place] % (Auto) 11.4 H Eos % (Auto) 5.4 H Baso % (Auto) 0.6 Neut # 2.4 Lymph # 1.9 [place] # 0.6 Eos # 0.3 Baso # 0.0 APTT 32.3 D-Dimer, Quantitative Sodium Potassium Chloride Carbon Dioxide Anion Gap BUN Creatinine Est GFR ( Amer) Est GFR (Non-Af Amer) Random Glucose Calcium Phosphorus 8.8 H Magnesium 2.5 H Total Bilirubin AST ALT Alkaline Phosphatase Troponin I NT-Pro-B Natriuret Pep Total Protein Albumin Globulin Albumin/Globulin Ratio Assessment & Plan (1) CKD (chronic kidney disease) stage V requiring chronic dialysis Assessment and Plan: Patient with end stage renal disease on maintenance hemodialysis TTS was admitted with chest pain evaluated by the primary team and a cardiology. #2 hyperkalemia potassium 6.1 patient refused Kayexalate however I spoke to him again he is going to take it right now I spoke to the resident to give 30 gm Kayexalate Repeat potassium at 3 PM if potassium is still elevated give another 30 gm. Patient is scheduled for hemodialysis for tomorrow. Hypertension continue on antihypertensive medications. Hyperphosphatemia continue phosphorus binder Status: Acute (2) Chest pain Status: Acute Priority: High
--- NOTE | 2017-11-20 16:45 | CARD ---
APPROVED REPORT EKG Measurement Heart [id number] PA 144P [id number] <Conclusion> Sinus tachycardia Otherwise normal ECG
[2017-11-21] MEDS: guaiFENesin DM 200 mg-20 mg/10 ml UD PO SCH ×4 (04:19→22:16)
--- NOTE | 2017-11-21 08:50 | CP.PCM.PN ---
Subjective - Date & Time of Evaluation Date of Evaluation: 11/21/17 Time of Evaluation: 08:48 - Subjective Subjective: Dialysis note Patient is sitting up and screaming and yelling complaining about the room and just about everything No nausea no vomiting No chest pain reported Objective - Vital Signs/Intake and Output Vital Signs (last 24 hours): Temp Pulse Resp BP Pulse Ox 97.7 F 122 H 16 118/57 L 100 11/20/17 19:30 11/20/17 21:00 11/20/17 19:30 11/20/17 19:30 11/20/17 19:30 - Medications Medications: Current Medications Acetaminophen (Tylenol 325mg Tab) 650 mg PO Q6 PRN PRN Reason: Pain, Mild (1-3) Albuterol/Ipratropium (Duoneb 3 Mg/0.5 Mg (3 Ml) Ud) 3 ml INH RQ4 PRN PRN Reason: Shortness of Breath Last Admin: 11/20/17 16:15 Dose: 3 ml Aspirin (Aspirin Chewable) 81 mg PO DAILY [facility] Last Admin: 11/20/17 08:50 Dose: 81 mg Atorvastatin Calcium (Lipitor) 10 mg PO DAILY [facility] Last Admin: 11/20/17 08:47 Dose: 10 mg Calcium Acetate (Phoslo) 1,334 mg PO TID [facility] Last Admin: 11/20/17 16:03 Dose: 1,334 mg Carvedilol (Coreg) 50 mg PO BID [facility] Last Admin: 11/20/17 16:02 Dose: 50 mg Citalopram Hydrobromide (Celexa) 20 mg PO DAILY [facility] Last Admin: 11/20/17 08:47 Dose: 20 mg Clopidogrel Bisulfate (Plavix) 75 mg PO DAILY [facility] Last Admin: 11/20/17 08:50 Dose: 75 mg Epoetin José Manuel (Procrit) 10,000 unit IV TTS [facility] Guaifenesin/Dextromethorphan (Robitussin Dm) 10 ml PO Q6 [facility] Last Admin: 11/21/17 04:19 Dose: Not Given Heparin Sodium (Porcine) (Heparin) 5,000 units SC Q12 [facility] PRN Reason: Protocol Last Admin: 11/20/17 21:15 Dose: Not Given Hydralazine HCl (Apresoline) 50 mg PO BID [facility] Last Admin: 11/19/17 16:30 Dose: Not Given Nitroglycerin (Nitrostat Sl Tab) 0.4 mg SL Q5M PRN PRN Reason: chest pain Last Admin: 11/20/17 17:42 Dose: 0.4 mg Fluticasone/Salmeterol (Advair Diskus 500/50) 1 puff INH Q12 [facility] Last Admin: 11/20/17 21:15 Dose: 1 puff Sevelamer HCl (Renagel) 1,600 mg PO TID [facility] Last Admin: 11/20/17 16:02 Dose: 1,600 mg Vitamin B Complex/Vit C/Folic Acid (Nephro-Yemi) 1 tab PO DAILY [facility] Last Admin: 11/20/17 08:47 Dose: 1 tab - Labs Labs: 11/20/17 04:20 11/20/17 16:58 APTT 32.3 Seconds (25.6-37.1) 11/20/17 04:20 - Constitutional Appears: No Acute Distress - ENT Exam ENT Exam: Mucous Membranes Moist - Neck Exam Neck Exam: absent: Lymphadenopathy - Respiratory Exam Respiratory Exam: NORMAL BREATHING PATTERN. absent: Chest Wall Tenderness, Wheezes - Cardiovascular Exam Cardiovascular Exam: REGULAR RHYTHM, RRR. absent: JVD - GI/Abdominal Exam GI & Abdominal Exam: Soft, Normal Bowel Sounds - Extremities Exam Extremities Exam: absent: Calf Tenderness - Back Exam Back Exam: absent: CVA tenderness (L), CVA tenderness (R) - Neurological Exam Neurological Exam: Alert - Psychiatric Exam Psychiatric exam: Normal Affect Assessment and Plan (1) CKD (chronic kidney disease) stage V requiring chronic dialysis Assessment & Plan: Hemodialysis starting now I discuss the order with the dialysis nurse at the bedside. Sodium bath 138 Potassium bath 2 mEq Bicarbonate 34 Ultrafiltration approximately 2500 mL as tolerated. Patient admitted with hyperkalemia was given Kayexalate and repeat potassium 5.1 yesterday afternoon. Anemia patient is receiving EPO Hyperphosphatemia patient is receiving binders I am not sure if the patient has cardiac cath last admission ? will discussed with the resident. Status: Acute (2) Chest pain Status: Acute
[2017-11-21] MEDS ORDERED: EPOETIN ALFA 10,000 UNIT/ML ML IV SCH (09:00)
--- NOTE | 2017-11-21 09:07 | CP.PCM.PN ---
Subjective - Date & Time of Evaluation Date of Evaluation: 11/21/17 Time of Evaluation: 08:15 - Subjective Subjective: 67 y/o M admitted for evaluation of chest pain. Pt evaluated and examined by bedside. Pt reports feeling OK, chest pain is mild and improved since admission , SOB is at baseline. Pt received hemodyalisis today, will go for V/Q scan. Pt tolerating PO. No acute events overnight. Objective - Vital Signs/Intake and Output Vital Signs (last 24 hours): Temp Pulse Resp BP Pulse Ox 97.7 F 122 H 16 118/57 L 100 11/20/17 19:30 11/20/17 21:00 11/20/17 19:30 11/20/17 19:30 11/20/17 19:30 - Medications Medications: Current Medications Acetaminophen (Tylenol 325mg Tab) 650 mg PO Q6 PRN PRN Reason: Pain, Mild (1-3) Albuterol/Ipratropium (Duoneb 3 Mg/0.5 Mg (3 Ml) Ud) 3 ml INH RQ4 PRN PRN Reason: Shortness of Breath Last Admin: 11/20/17 16:15 Dose: 3 ml Aspirin (Aspirin Chewable) 81 mg PO DAILY [facility] Last Admin: 11/20/17 08:50 Dose: 81 mg Atorvastatin Calcium (Lipitor) 10 mg PO DAILY [facility] Last Admin: 11/20/17 08:47 Dose: 10 mg Calcium Acetate (Phoslo) 1,334 mg PO TID [facility] Last Admin: 11/20/17 16:03 Dose: 1,334 mg Carvedilol (Coreg) 100 mg PO BID [facility] Citalopram Hydrobromide (Celexa) 20 mg PO DAILY [facility] Last Admin: 11/20/17 08:47 Dose: 20 mg Clopidogrel Bisulfate (Plavix) 75 mg PO DAILY [facility] Last Admin: 11/20/17 08:50 Dose: 75 mg Epoetin José Manuel (Procrit) 10,000 unit IV TTS [facility] Guaifenesin/Dextromethorphan (Robitussin Dm) 10 ml PO Q6 [facility] Last Admin: 11/21/17 04:19 Dose: Not Given Heparin Sodium (Porcine) (Heparin) 5,000 units SC Q12 [facility] PRN Reason: Protocol Last Admin: 11/20/17 21:15 Dose: Not Given Hydralazine HCl (Apresoline) 50 mg PO BID [facility] Last Admin: 11/19/17 16:30 Dose: Not Given Nitroglycerin (Nitrostat Sl Tab) 0.4 mg SL Q5M PRN PRN Reason: chest pain Last Admin: 11/20/17 17:42 Dose: 0.4 mg Fluticasone/Salmeterol (Advair Diskus 500/50) 1 puff INH Q12 [facility] Last Admin: 11/20/17 21:15 Dose: 1 puff Sevelamer HCl (Renagel) 1,600 mg PO TID [facility] Last Admin: 11/20/17 16:02 Dose: 1,600 mg Vitamin B Complex/Vit C/Folic Acid (Nephro-Yemi) 1 tab PO DAILY [facility] Last Admin: 11/20/17 08:47 Dose: 1 tab - Labs Labs: 11/20/17 04:20 11/20/17 16:58 APTT 32.3 Seconds (25.6-37.1) 11/20/17 04:20 - Constitutional Appears: Well, No Acute Distress - Head Exam Head Exam: ATRAUMATIC, NORMAL INSPECTION - Eye Exam Eye Exam: EOMI, Normal appearance - ENT Exam ENT Exam: Mucous Membranes Moist - Neck Exam Neck Exam: Full ROM, Normal Inspection - Respiratory Exam Respiratory Exam: NORMAL BREATHING PATTERN. absent: Wheezes (B/L upper regions are clear to auscultation. Lower b/l regions with some decreased breath sounds. ) - Cardiovascular Exam Cardiovascular Exam: REGULAR RHYTHM, +S1, +S2 - GI/Abdominal Exam GI & Abdominal Exam: Soft, Normal Bowel Sounds. absent: Guarding Assessment and Plan - Assessment and Plan (Free Text) Plan: 67 y/o male with PMHx of ESRD on HD (, , mon), HTN, NSTEMI, COPD, vasculitis admitted with chest pain and tachycardia to r/o ACS and PE. 1) Chest pain -likely 2/2 to CAD -Cardiac cath was done on 10/17/17 by cotton buyer, Dr. Miles, who reported 60-70% stenosis of small vessels of L Coronary circulation and recommended patient get a trial of medical therapy -R/O ACS vs PE -trops neg x 2 -EKG on ED : sinus tachycardia rate of 117, no acute ST-T wave changes -Repeat EKG this AM: read by me, sinus tachycadia, no acute ST changes -D-dimer elevated 755 on 11/19/17 -CXR showed small left pleural effusion and/or pleural thickening -pro-BNP: 63929 improved from previously, 54545 10/12/17 -continue aspirin, plavix, statin, and coreg -Cardiology consulted, Dr Das, contacted his phone service today 11/22/17 around 14:00. -F/u V/Q scan. 2) Tachycardia -unclear etiology -hadoop developer with sinus tachycardia, no evidence of A Fib or flutter -cont venetian blind mechanic -resume home carvedilol 50 mg PO BID -ECHO on 10/14/17 showed normal left ventricular function and EF. severe aortic and mitral regurgitation. Left atrium moderately dilated 3) HTN -Controlled -Continue Carvedilol 50 mg BID -C/w Hydralazine 50 mg BID. Will hold today PM dose because BP 120s/60, and will given coreg -monitor 4) COPD -stable -baseline SOB, cough improving after admission -resume home meds -flut/salm inh BID -duoneb PRN 5) ESRD on HD -bun/crea 21/7.5 -HD on Monday, and Monday -Nephrology on board. -HD received today, 11/22/17. Pt tolerated well. -C/w sevelamir, EPO, and Nephrovite 6) Macrocytic Anemia -stable -hb/hct 9.9/30.5 with HCV 101.8 -continue procrit -likely 2/2 to ESRD 7) Electrolyte Imbalance -likely 2/2 to ESRD -continue calcium acetate -Hyperkalemic, received Kayexalate. Potassium 5.1-WNL at 04:00 today, 11/22/17. -HD tomorrow 8) DVT prophylaxis -SCDs -heparin 5000IU Q12
[2017-11-21] MEDS: Multivitamin Vitamin B Complex (Nephro-Vite) Tab PO SCH (09:17)
[2017-11-21] MEDS: Fluticasone-Salmeterol 500-50mcg Diskus INH SCH ×2 (09:18→22:16)
[2017-11-21 09:57] LABS: HEMOGLOBIN 9.8 g/dL (12.0-18.0); MEAN CELL VOLUME 101.4 fl (80.0-94.0); MEAN CORPUSCULAR HEMOGLOBIN 33.2 pg (27.0-31.0); MEAN CORPUSCULAR HGB CONC 32.8 g/dL (33.0-37.0); RBC 2.94 Mil/uL (4.40-5.90); RED CELL DISTRIBUTION WIDTH 19.1 % (11.5-14.5); WHITE BLOOD COUNT 5.4 K/uL (4.8-10.8)
[2017-11-21 10:20] LABS: ALB/GLOB RATIO 1.2 (1.0-2.1); ALBUMIN 3.7 g/dL (3.5-5.0); MAGNESIUM 2.4 MG/DL (1.6-2.3)
--- NOTE | 2017-11-21 16:08 | CP.PCM.CON ---
History of Present Illness - History of Present Illness History of Present Illness: Patient is is 67 years of age homeless man with end stage renal disease on maintenance hemodialysis TTS. He presented to the emergency room complaining go for intermittent chest pain Pt denies chest pain at this time Pt had Cardiac Cath on 10/17/17 by arcade technician, Dr. Miles, who reported 60-70% stenosis of small vessels of L Coronary circulation and recommended patient get a trial of medical therapy PMHX: ESRD, HTN, COPD, Vasculitis, DVT of RUE, anemia with a blood transfusion pneumonia in the past patient was treated with Cytoxan for 6 months in the past for vasculitis. Patient receiving dialysis as outpatient EKG: NSR Troponin: neg 10/15/2017 ECHO: Good LV function normal EF Mild TR Severe AR & MR Past Patient History - Infectious Disease Hx of Infectious Diseases: None - Past Medical History & Family History Past Medical History?: Yes - Past Social History Smoking Status: Former Smoker - CARDIAC Hx Cardiac Disorders: Yes - PULMONARY Hx Respiratory Disorders: Yes - NEUROLOGICAL Hx Seizures: Yes - HEENT Hx HEENT Problems: No - RENAL Hx Chronic Kidney Disease: Yes - ENDOCRINE/METABOLIC Hx Endocrine Disorders: No - HEMATOLOGICAL/ONCOLOGICAL Hx Anemia: Yes Hx Human Immunodeficiency Virus (HIV): No - INTEGUMENTARY Hx Dermatological Problems: No - MUSCULOSKELETAL/RHEUMATOLOGICAL Hx Arthritis: Yes - GASTROINTESTINAL Hx Gastrointestinal Disorders: Yes Hx Hemorrhoids: Yes - GENITOURINARY/GYNECOLOGICAL Hx Genitourinary Disorders: No - PSYCHIATRIC Hx Psychophysiologic Disorder: Yes - SURGICAL HISTORY Hx Coronary Stent: No - ANESTHESIA Hx Anesthesia: Yes Hx Anesthesia Reactions: No Hx Malignant Hyperthermia: No Meds Allergies/Adverse Reactions: Allergies Allergy/AdvReac Type Severity Reaction Status Date / Time sulfamethoxazole Allergy RASH Verified 11/19/17 14:08 [From ] trimethoprim [From ] Allergy RASH Verified 11/19/17 14:08 - Medications Medications: Current Medications Acetaminophen (Tylenol 325mg Tab) 650 mg PO Q6 PRN PRN Reason: Pain, Mild (1-3) Albuterol/Ipratropium (Duoneb 3 Mg/0.5 Mg (3 Ml) Ud) 3 ml INH RQ4 PRN PRN Reason: Shortness of Breath Last Admin: 11/20/17 16:15 Dose: 3 ml Aspirin (Aspirin Chewable) 81 mg PO DAILY [facility] Last Admin: 11/21/17 09:18 Dose: 81 mg Atorvastatin Calcium (Lipitor) 10 mg PO DAILY [facility] Last Admin: 11/21/17 09:17 Dose: 10 mg Calcium Acetate (Phoslo) 1,334 mg PO TID [facility] Last Admin: 11/21/17 13:01 Dose: 1,334 mg Carvedilol (Coreg) 50 mg PO BID [facility] Citalopram Hydrobromide (Celexa) 20 mg PO DAILY [facility] Last Admin: 11/21/17 09:18 Dose: 20 mg Clopidogrel Bisulfate (Plavix) 75 mg PO DAILY [facility] Last Admin: 11/21/17 09:17 Dose: 75 mg Epoetin José Manuel (Procrit) 10,000 unit IV TTS [facility] Last Admin: 11/21/17 09:15 Dose: 10,000 unit Guaifenesin/Dextromethorphan (Robitussin Dm) 10 ml PO Q6 [facility] Last Admin: 11/21/17 09:17 Dose: 10 ml Heparin Sodium (Porcine) (Heparin) 5,000 units SC Q12 [facility] PRN Reason: Protocol Last Admin: 11/21/17 09:15 Dose: 5,000 units Hydralazine HCl (Apresoline) 50 mg PO BID [facility] Last Admin: 11/19/17 16:30 Dose: Not Given Nitroglycerin (Nitrostat Sl Tab) 0.4 mg SL Q5M PRN PRN Reason: chest pain Last Admin: 11/20/17 17:42 Dose: 0.4 mg Fluticasone/Salmeterol (Advair Diskus 500/50) 1 puff INH Q12 [facility] Last Admin: 11/21/17 09:18 Dose: 1 puff Sevelamer HCl (Renagel) 1,600 mg PO TID [facility] Last Admin: 11/21/17 13:02 Dose: 1,600 mg Vitamin B Complex/Vit C/Folic Acid (Nephro-Yemi) 1 tab PO DAILY [facility] Last Admin: 11/21/17 09:17 Dose: 1 tab Results - Vital Signs Recent Vital Signs: Last Vital Signs Temp 98.3 F 11/21/17 15:46 Pulse 89 11/21/17 15:46 Resp 18 11/21/17 15:46 BP 132/46 L 11/21/17 15:46 Pulse Ox 98 11/21/17 15:46 - Labs Result Diagrams: 11/22/17 04:20 11/22/17 04:20 Labs: Laboratory Results - last 24 hr 11/20/17 11/21/17 11/21/17 16:58 04:00 04:00 WBC 5.4 RBC 2.94 L Hgb 9.8 L Hct 29.9 L MCV 101.4 H MCH 33.2 H MCHC 32.8 L RDW 19.1 H Plt Count 189 Sodium 141 Potassium 5.3 H 5.1 H Chloride 103 Carbon Dioxide 21 L Anion Gap 22 H BUN 62 H Creatinine 8.7 H* Est GFR ( Amer) 7 Est GFR (Non-Af Amer) 6 Random Glucose 141 H Calcium 8.0 L Phosphorus 8.2 H Magnesium 2.4 H Total Bilirubin 0.3 AST 21 ALT 27 Alkaline Phosphatase 61 Total Protein 6.7 Albumin 3.7 Globulin 3.0 Albumin/Globulin Ratio 1.2 Assessment & Plan (1) CKD (chronic kidney disease) stage V requiring chronic dialysis Status: Acute (2) Chest pain Assessment and Plan: Pt had Cath 10/2017 with 60% lesion LAD Pt may be d/ayana Status: Acute Priority: High (3) Acute on chronic renal failure Status: Acute Priority: High (4) Anemia Status: Acute Priority: High (5) ESRD (end stage renal disease) Status: Acute
--- NOTE | 2017-11-21 16:36 | NM ---
COMPARISON: November 19, 2017. TECHNIQUE: 45.8 mCi technetium 99-m DTPA aerosol. 5.6 mCI technetium 99-m MAA administered intravenously. FINDINGS: VENTILATION COMPONENT: Heterogeneous ventilation particularly in the left lung. Retention of radionuclide in the tracheobronchial tree and ingestion of radionuclide in the stomach, incidental findings PERFUSION COMPONENT: Heterogeneous profusion particularly in the left lung without geographic defect. IMPRESSION: Low probability ventilation perfusion scan for pulmonary embolism.
[2017-11-22] MEDS: guaiFENesin DM 200 mg-20 mg/10 ml UD PO SCH ×4 (04:13→21:18)
[2017-11-22 05:47] LABS: MEAN CELL VOLUME 102.5 fl (80.0-94.0); MEAN CORPUSCULAR HGB CONC 32.2 g/dL (33.0-37.0); RBC 3.02 Mil/uL (4.40-5.90); RED CELL DISTRIBUTION WIDTH 19.3 % (11.5-14.5); WHITE BLOOD COUNT 5.5 K/uL (4.8-10.8)
[2017-11-22 06:28] LABS: ALB/GLOB RATIO 1.2 (1.0-2.1); ALBUMIN 3.8 g/dL (3.5-5.0); CALCIUM 8.2 mg/dL (8.4-10.2)
--- NOTE | 2017-11-22 07:56 | CARD ---
APPROVED REPORT EKG Measurement Heart [id number] <Conclusion> Sinus tachycardia Possible Left atrial enlargement Possible septal infarct, age undetermined Abnormal ECG
[2017-11-22] MEDS: Fluticasone-Salmeterol 500-50mcg Diskus INH SCH ×2 (08:15→21:16)
[2017-11-22] MEDS: Multivitamin Vitamin B Complex (Nephro-Vite) Tab PO SCH (08:22)
--- NOTE | 2017-11-22 09:18 | CP.PCM.DIS ---
Provider - Provider Date of Admission: 11/19/17 14:58 Attending physician: Quentin Chu MD Primary care physician: [facility]. Consults: Cardiology: Dr Das. Nephrology: Dr Sandoval. Time Spent in preparation of Discharge (in minutes): 30 Hospital Course - Lab Results Lab Results: Most Recent Lab Values WBC 5.5 K/uL (4.8-10.8) 11/22/17 04:20 RBC 3.02 Mil/uL (4.40-5.90) L 11/22/17 04:20 Hgb 10.0 g/dL (12.0-18.0) L 11/22/17 04:20 Hct 30.9 % (35.0-51.0) L 11/22/17 04:20 MCV 102.5 fl (80.0-94.0) H 11/22/17 04:20 MCH 33.0 pg (27.0-31.0) H 11/22/17 04:20 MCHC 32.2 g/dL (33.0-37.0) L 11/22/17 04:20 RDW 19.3 % (11.5-14.5) H 11/22/17 04:20 Plt Count 167 K/uL (130-400) 11/22/17 04:20 MPV 7.6 fl (7.2-11.7) 11/20/17 04:20 Neut % (Auto) 46.3 % (50.0-75.0) L 11/20/17 04:20 Lymph % (Auto) 36.3 % (20.0-40.0) 11/20/17 04:20 [place] % (Auto) 11.4 % (0.0-10.0) H 11/20/17 04:20 Eos % (Auto) 5.4 % (0.0-4.0) H 11/20/17 04:20 Baso % (Auto) 0.6 % (0.0-2.0) 11/20/17 04:20 Neut # 2.4 K/uL (1.8-7.0) 11/20/17 04:20 Lymph # 1.9 K/uL (1.0-4.3) 11/20/17 04:20 [place] # 0.6 K/uL (0.0-0.8) 11/20/17 04:20 Eos # 0.3 K/uL (0.0-0.7) 11/20/17 04:20 Baso # 0.0 K/uL (0.0-0.2) 11/20/17 04:20 APTT 32.3 Seconds (25.6-37.1) 11/20/17 04:20 D-Dimer, Quantitative 755 ng/mlDDU (0-230) H 11/19/17 14:20 Sodium 140 mmol/l (132-148) 11/22/17 04:20 Potassium 5.2 MMOL/L (3.6-5.0) H 11/22/17 04:20 Chloride 98 mmol/L (98-107) 11/22/17 04:20 Carbon Dioxide 28 mmol/L (22-30) 11/22/17 04:20 Anion Gap 19 (10-20) 11/22/17 04:20 BUN 31 mg/dl (9-20) H 11/22/17 04:20 Creatinine 5.8 mg/dl (0.8-1.5) H 11/22/17 04:20 Est GFR ( Amer) 12 11/22/17 04:20 Est GFR (Non-Af Amer) 10 11/22/17 04:20 Random Glucose 78 mg/dL (75-110) 11/22/17 04:20 Calcium 8.2 mg/dL (8.4-10.2) L 11/22/17 04:20 Phosphorus 8.2 mg/dl (2.5-4.5) H 11/21/17 04:00 Magnesium 2.4 MG/DL (1.6-2.3) H 11/21/17 04:00 Total Bilirubin 0.4 mg/dl (0.2-1.3) 11/22/17 04:20 AST 25 U/L (17-59) 11/22/17 04:20 ALT 24 U/L (21-72) 11/22/17 04:20 Alkaline Phosphatase 58 U/L (38-126) 11/22/17 04:20 Troponin I 0.0130 ng/mL (0.00-0.120) 11/19/17 20:30 NT-Pro-B Natriuret Pep 59495 pg/ml (0-900) H 11/19/17 20:28 Total Protein 6.9 G/DL (6.3-8.2) 11/22/17 04:20 Albumin 3.8 g/dL (3.5-5.0) 11/22/17 04:20 Globulin 3.1 gm/dL (2.2-3.9) 11/22/17 04:20 Albumin/Globulin Ratio 1.2 (1.0-2.1) 11/22/17 04:20 Hep Bs Antigen Negative (NEGATIVE) 11/21/17 04:00 - Hospital Course Hospital Course: 67 y/o M with a PMHx of ESRD on HD, HTN, COPD, Vasculitis, DVT of RUE, recent [place] and CHF was admitted for evaluation of chest pain. EKG and serum troponin were unremarkable. V/Q scan showed low probability for PE. Pt received hemodyalisis while hospitalization. -Pt reported feeling well, no more chest pain, reports intermittent cough. No acute events overnight. Pt had a vomiting episode this morning while eating, bilious, non-bloody and small amount. Pt given IV Zofran. -No modification on home medications. -Pt instructed to follow up with PCP, fermenter champagne, and small brake form operator. If NOT discharged today, pt will be, tomorrow. - Date & Time of H&P Date of H&P: 11/19/17 Time of H&P: 14:55 Discharge Exam - Head Exam Head Exam: ATRAUMATIC, NORMAL INSPECTION - Eye Exam Eye Exam: EOMI, Normal appearance - ENT Exam ENT Exam: Mucous Membranes Moist - Neck Exam Neck exam: Full Rom - Respiratory Exam Respiratory Exam: Decreased Breath Sounds (B/L lower lung [place]), Clear to PA & Lateral (B/L upper lung [place]), NORMAL BREATHING PATTERN, UNREMARKABLE. absent: Rales, Rhonchi, Wheezes, Respiratory Distress - Cardiovascular Exam Cardiovascular Exam: REGULAR RHYTHM, +S1, +S2 - GI/Abdominal Exam GI & Abdominal Exam: Normal Bowel Sounds, Soft. absent: Guarding, Tenderness - Extremities Exam Extremities exam: full ROM, normal inspection Discharge Plan - Follow Up Plan Condition: FAIR Disposition: HOME/ ROUTINE Instructions: Renal Failure Diet (DC) Additional Instructions: -Please follow-up with fermenter champagne Dr [place] within 5 days. -Please continue with home medications and scheduled hemodyalisis. -ER precautions discussed with pt.
[2017-11-22] MEDS: raNITIdine HCl 150 mg/10 ml Soln Cup PO SCH (09:46)
--- NOTE | 2017-11-22 11:52 | CP.PCM.PN ---
Subjective - Date & Time of Evaluation Date of Evaluation: 11/22/17 Time of Evaluation: 11:49 - Subjective Subjective: feels better vital noted Objective - Vital Signs/Intake and Output Vital Signs (last 24 hours): Temp Pulse Resp BP Pulse Ox 97.2 F L 80 20 112/45 L 98 11/22/17 08:21 11/22/17 09:00 11/22/17 08:21 11/22/17 08:21 11/22/17 08:21 - Medications Medications: Current Medications Acetaminophen (Tylenol 325mg Tab) 650 mg PO Q6 PRN PRN Reason: Pain, Mild (1-3) Albuterol/Ipratropium (Duoneb 3 Mg/0.5 Mg (3 Ml) Ud) 3 ml INH RQ4 PRN PRN Reason: Shortness of Breath Last Admin: 11/20/17 16:15 Dose: 3 ml Aspirin (Aspirin Chewable) 81 mg PO DAILY [facility] Last Admin: 11/22/17 08:15 Dose: 81 mg Atorvastatin Calcium (Lipitor) 10 mg PO DAILY [facility] Last Admin: 11/22/17 08:17 Dose: 10 mg Calcium Acetate (Phoslo) 1,334 mg PO TID [facility] Last Admin: 11/22/17 08:17 Dose: 1,334 mg Carvedilol (Coreg) 50 mg PO BID [facility] Last Admin: 11/22/17 08:16 Dose: 50 mg Citalopram Hydrobromide (Celexa) 20 mg PO DAILY [facility] Last Admin: 11/22/17 08:15 Dose: 20 mg Clopidogrel Bisulfate (Plavix) 75 mg PO DAILY [facility] Last Admin: 11/22/17 08:17 Dose: 75 mg Epoetin José Manuel (Procrit) 10,000 unit IV TTS [facility] Last Admin: 11/21/17 09:15 Dose: 10,000 unit Guaifenesin/Dextromethorphan (Robitussin Dm) 10 ml PO Q6 [facility] Last Admin: 11/22/17 09:53 Dose: Not Given Heparin Sodium (Porcine) (Heparin) 5,000 units SC Q12 [facility] PRN Reason: Protocol Last Admin: 11/22/17 08:16 Dose: 5,000 units Hydralazine HCl (Apresoline) 50 mg PO BID [facility] Last Admin: 11/19/17 16:30 Dose: Not Given Nitroglycerin (Nitrostat Sl Tab) 0.4 mg SL Q5M PRN PRN Reason: chest pain Last Admin: 11/20/17 17:42 Dose: 0.4 mg Ranitidine HCl (Zantac Soln 5ml) 150 mg PO DAILY [facility] Last Admin: 11/22/17 09:46 Dose: 150 mg Fluticasone/Salmeterol (Advair Diskus 500/50) 1 puff INH Q12 [facility] Last Admin: 11/22/17 08:15 Dose: 1 puff Sevelamer HCl (Renagel) 1,600 mg PO TID [facility] Last Admin: 11/22/17 08:18 Dose: 1,600 mg Vitamin B Complex/Vit C/Folic Acid (Nephro-Yemi) 1 tab PO DAILY [facility] Last Admin: 11/22/17 08:22 Dose: 1 tab - Labs Labs: 11/22/17 04:20 11/22/17 04:20 APTT 32.3 Seconds (25.6-37.1) 11/20/17 04:20 - Constitutional Appears: No Acute Distress - ENT Exam ENT Exam: Mucous Membranes Moist - Neck Exam Neck Exam: absent: Lymphadenopathy - Respiratory Exam Respiratory Exam: NORMAL BREATHING PATTERN. absent: Chest Wall Tenderness - Cardiovascular Exam Cardiovascular Exam: REGULAR RHYTHM. absent: Rubs - GI/Abdominal Exam GI & Abdominal Exam: Soft, Normal Bowel Sounds - Extremities Exam Extremities Exam: absent: Calf Tenderness - Back Exam Back Exam: absent: CVA tenderness (L), CVA tenderness (R) - Neurological Exam Neurological Exam: Alert - Skin Skin Exam: absent: Cyanosis Assessment and Plan (1) CKD (chronic kidney disease) stage V requiring chronic dialysis Assessment & Plan: ESRD HD TTS anemia stable on EPO chest pain as per cardiology,previous cardiac cath? hyperphosphatemia on binders HTN on meds. Status: Acute (2) Chest pain Status: Acute
[2017-11-23 00:03] VITALS: RESP 18
[2017-11-23] MEDS: guaiFENesin DM 200 mg-20 mg/10 ml UD PO SCH ×2 (05:02→11:31)
[2017-11-23] MEDS: Multivitamin Vitamin B Complex (Nephro-Vite) Tab PO SCH (09:35)
--- NOTE | 2017-11-23 10:53 | CP.PCM.PN ---
Subjective - Date & Time of Evaluation Date of Evaluation: 11/23/17 Time of Evaluation: 10:52 - Subjective Subjective: Patient bed appears to be comfortable and no chest pain or shortness of breath Objective - Vital Signs/Intake and Output Vital Signs (last 24 hours): Temp Pulse Resp BP Pulse Ox 98.2 F 80 18 119/55 L 97 11/23/17 07:33 11/23/17 09:33 11/23/17 07:33 11/23/17 09:33 11/23/17 07:33 - Medications Medications: Current Medications Acetaminophen (Tylenol 325mg Tab) 650 mg PO Q6 PRN PRN Reason: Pain, Mild (1-3) Albuterol/Ipratropium (Duoneb 3 Mg/0.5 Mg (3 Ml) Ud) 3 ml INH RQ4 PRN PRN Reason: Shortness of Breath Last Admin: 11/20/17 16:15 Dose: 3 ml Aspirin (Aspirin Chewable) 81 mg PO DAILY [facility] Last Admin: 11/23/17 09:35 Dose: 81 mg Atorvastatin Calcium (Lipitor) 10 mg PO DAILY [facility] Last Admin: 11/23/17 09:35 Dose: 10 mg Calcium Acetate (Phoslo) 1,334 mg PO TID [facility] Last Admin: 11/23/17 09:33 Dose: 1,334 mg Carvedilol (Coreg) 50 mg PO BID [facility] Last Admin: 11/23/17 09:33 Dose: 50 mg Citalopram Hydrobromide (Celexa) 20 mg PO DAILY [facility] Last Admin: 11/23/17 09:35 Dose: 20 mg Clopidogrel Bisulfate (Plavix) 75 mg PO DAILY [facility] Last Admin: 11/23/17 09:34 Dose: 75 mg Epoetin José Manuel (Procrit) 10,000 unit IV TTS [facility] Last Admin: 11/21/17 09:15 Dose: 10,000 unit Guaifenesin/Dextromethorphan (Robitussin Dm) 10 ml PO Q6 [facility] Last Admin: 11/23/17 05:02 Dose: Not Given Heparin Sodium (Porcine) (Heparin) 5,000 units SC Q8 [facility] PRN Reason: Protocol Hydralazine HCl (Apresoline) 50 mg PO BID [facility] Last Admin: 11/19/17 16:30 Dose: Not Given Nitroglycerin (Nitrostat Sl Tab) 0.4 mg SL Q5M PRN PRN Reason: chest pain Last Admin: 11/20/17 17:42 Dose: 0.4 mg Ranitidine HCl (Zantac Soln 5ml) 150 mg PO DAILY [facility] Last Admin: 11/22/17 09:46 Dose: 150 mg Fluticasone/Salmeterol (Advair Diskus 500/50) 1 puff INH Q12 [facility] Last Admin: 11/22/17 21:16 Dose: 1 puff Sevelamer HCl (Renagel) 1,600 mg PO TID [facility] Last Admin: 11/23/17 09:34 Dose: 1,600 mg Vitamin B Complex/Vit C/Folic Acid (Nephro-Yemi) 1 tab PO DAILY [facility] Last Admin: 11/23/17 09:35 Dose: 1 tab - Labs Labs: 11/22/17 04:20 11/22/17 04:20 APTT 32.3 Seconds (25.6-37.1) 11/20/17 04:20 - Constitutional Appears: No Acute Distress - ENT Exam ENT Exam: Mucous Membranes Moist - Respiratory Exam Respiratory Exam: NORMAL BREATHING PATTERN. absent: Chest Wall Tenderness, Rales - Cardiovascular Exam Cardiovascular Exam: REGULAR RHYTHM. absent: Rubs - GI/Abdominal Exam GI & Abdominal Exam: Soft, Normal Bowel Sounds - Extremities Exam Extremities Exam: absent: Calf Tenderness - Back Exam Back Exam: absent: CVA tenderness (L), CVA tenderness (R) - Neurological Exam Neurological Exam: Alert - Psychiatric Exam Psychiatric exam: Normal Affect - Skin Skin Exam: absent: Cyanosis Assessment and Plan (1) CKD (chronic kidney disease) stage V requiring chronic dialysis Assessment & Plan: Stage renal disease patient to receive dialysis shortly as scheduled Sodium bath 138 Potassium bath 2 mEq Bicarbonate bath 34 Ultrafiltration 2500 mL Patient is seen by the duplication specialist and cleared Pt had Cardiac Cath on 10/17/17 by duplication specialist, Dr. Miles, who reported 60-70% stenosis of small vessels of L Coronary circulation and recommended patient get a trial of medical therapy. Status: Acute (2) Chest pain Status: Acute
--- NOTE | 2017-11-23 11:03 | CP.PCM.PN ---
Subjective - Date & Time of Evaluation Date of Evaluation: 11/23/17 Time of Evaluation: 09:10 - Subjective Subjective: 67 y/o M admitted for evaluation of chest pain. Today, pt reports feeling well with NO more episodes of nausea and vomiting. No acute events overnight, Pt afebrile and tolerating PO. Pt denied chills, CP, SOB, palpitations, sleep disturbances, N/V, abdominal pain, change in bowel movements or peripheral edema. PT IS DISCHARGED TODAY, PRESCRIPTION FOR HIS MEDICATIONS PROVIDED. Pt was admitted for evaluation of chest pain on 11/19/17, acute [place] AND PE were ruled out. EKG and serum troponins were unremarkable. V/Q scan took 2 days to be performed due to tachycardia, hyperkalemia and SOB. V/Q scan showed low probability for PE. Pt was planned to be discharged yesterday; however, due to precipitous episode of nausea, bilious vomiting, headache, dizziness and diaphoresis, pt was maintained under observation until today, after hemodyalisis was completed. HYDRALAZINE was stopped, pt made aware. Objective - Vital Signs/Intake and Output Vital Signs (last 24 hours): Temp Pulse Resp BP Pulse Ox 98.2 F 80 18 119/55 L 97 11/23/17 07:33 11/23/17 09:33 11/23/17 07:33 11/23/17 09:33 11/23/17 07:33 - Medications Medications: Current Medications Acetaminophen (Tylenol 325mg Tab) 650 mg PO Q6 PRN PRN Reason: Pain, Mild (1-3) Albuterol/Ipratropium (Duoneb 3 Mg/0.5 Mg (3 Ml) Ud) 3 ml INH RQ4 PRN PRN Reason: Shortness of Breath Last Admin: 11/20/17 16:15 Dose: 3 ml Aspirin (Aspirin Chewable) 81 mg PO DAILY [facility] Last Admin: 11/23/17 09:35 Dose: 81 mg Atorvastatin Calcium (Lipitor) 10 mg PO DAILY [facility] Last Admin: 11/23/17 09:35 Dose: 10 mg Calcium Acetate (Phoslo) 1,334 mg PO TID [facility] Last Admin: 11/23/17 09:33 Dose: 1,334 mg Carvedilol (Coreg) 50 mg PO BID [facility] Last Admin: 11/23/17 09:33 Dose: 50 mg Citalopram Hydrobromide (Celexa) 20 mg PO DAILY [facility] Last Admin: 11/23/17 09:35 Dose: 20 mg Clopidogrel Bisulfate (Plavix) 75 mg PO DAILY [facility] Last Admin: 11/23/17 09:34 Dose: 75 mg Epoetin José Manuel (Procrit) 10,000 unit IV TTS [facility] Last Admin: 11/21/17 09:15 Dose: 10,000 unit Guaifenesin/Dextromethorphan (Robitussin Dm) 10 ml PO Q6 [facility] Last Admin: 11/23/17 05:02 Dose: Not Given Heparin Sodium (Porcine) (Heparin) 5,000 units SC Q8 [facility] PRN Reason: Protocol Hydralazine HCl (Apresoline) 50 mg PO BID [facility] Last Admin: 11/19/17 16:30 Dose: Not Given Nitroglycerin (Nitrostat Sl Tab) 0.4 mg SL Q5M PRN PRN Reason: chest pain Last Admin: 11/20/17 17:42 Dose: 0.4 mg Ranitidine HCl (Zantac Soln 5ml) 150 mg PO DAILY [facility] Last Admin: 11/22/17 09:46 Dose: 150 mg Fluticasone/Salmeterol (Advair Diskus 500/50) 1 puff INH Q12 [facility] Last Admin: 11/22/17 21:16 Dose: 1 puff Sevelamer HCl (Renagel) 1,600 mg PO TID [facility] Last Admin: 11/23/17 09:34 Dose: 1,600 mg Vitamin B Complex/Vit C/Folic Acid (Nephro-Yemi) 1 tab PO DAILY [facility] Last Admin: 11/23/17 09:35 Dose: 1 tab - Labs Labs: 11/22/17 04:20 11/22/17 04:20 APTT 32.3 Seconds (25.6-37.1) 11/20/17 04:20 - Constitutional Appears: Well, No Acute Distress - Head Exam Head Exam: ATRAUMATIC, NORMAL INSPECTION - Eye Exam Eye Exam: EOMI, Normal appearance - ENT Exam ENT Exam: Mucous Membranes Moist - Neck Exam Neck Exam: Full ROM - Respiratory Exam Respiratory Exam: Decreased Breath Sounds, NORMAL BREATHING PATTERN Additional comments: Presence of ronchi b/l; however, clearer breath sound are appreciated after coughing. - Cardiovascular Exam Cardiovascular Exam: REGULAR RHYTHM, +S1, +S2 - GI/Abdominal Exam GI & Abdominal Exam: Soft, Normal Bowel Sounds. absent: Guarding, Rigid, Tenderness - Extremities Exam Extremities Exam: Full ROM. absent: Joint Swelling Assessment and Plan - Assessment and Plan (Free Text) Assessment: 67 y/o male with PMHx of ESRD on HD (, , mon), HTN, NSTEMI, COPD, vasculitis admitted with chest pain and tachycardia to r/o ACS and PE. 1) Chest pain -likely 2/2 to CAD -"Cardiac cath was done on 10/17/17 by data analysis assistant, Dr. Miles, who reported 60-70% stenosis of small vessels of L Coronary circulation and recommended patient get a trial of medical therapy" -trops neg x 2; EKG on ED : sinus tachycardia rate of 117, no acute ST-T wave changes. Repeat EKG sinus tachycadia, no acute ST changes -D-dimer elevated 755 on 11/19/17 -CXR showed small left pleural effusion and/or pleural thickening -pro-BNP: 15642 improved from previously, 44006 10/12/17 -V/Q scan showed low probability for PE. -Continue aspirin, plavix, statin, and coreg -Cardiology consulted. -PT DISCHARGED TODAY. -Refill of medications, prescribed. HYDRALAZINE was stopped, pt made aware. 2) Tachycardia -unclear etiology -bus driver/monitor with sinus tachycardia, no evidence of A Fib or flutter -cont bus driver/monitor -resume home carvedilol 50 mg PO BID -ECHO on 10/14/17 showed normal left ventricular function and EF. severe aortic and mitral regurgitation. Left atrium moderately dilated 3) HTN -Controlled -Continue Carvedilol 50 mg BID -STOP Hydralazine 50 mg BID. Will hold today PM dose because BP 120s/60, and will given coreg -monitor 4) COPD -stable -baseline SOB, cough improving after admission -resume home meds -flut/salm inh BID -duoneb PRN 5) ESRD on HD -bun/crea 26/05.5 -HD on Monday, and Monday -Nephrology on board. -HD received today, 11/22/17. Pt tolerated well. -C/w sevelamir, EPO, and Nephrovite 6) Macrocytic Anemia -stable -hb/hct 9.9/30.5 with HCV 101.8 -continue procrit -likely 2/2 to ESRD 7) Electrolyte Imbalance -likely 2/2 to ESRD -continue calcium acetate -Hyperkalemic, received Kayexalate. Potassium 5.1-WNL at 04:00 today, 11/22/17. -HD tomorrow 8) DVT prophylaxis -SCDs -heparin 5000IU Q12
[2017-11-23] MEDS: raNITIdine HCl 150 mg/10 ml Soln Cup PO SCH (11:31)
[2017-11-23] MEDS: Fluticasone-Salmeterol 500-50mcg Diskus INH SCH (11:32)
--- NOTE | 2017-11-23 14:33 | CP.PCM.DIS ---
Provider - Provider Date of Admission: 11/19/17 14:58 Attending physician: Quentin Chu MD Primary care physician: [facility] Consults: Cardiology: Dr Das. Nephrology: Dr Sandoval. Time Spent in preparation of Discharge (in minutes): 30 Hospital Course - Lab Results Lab Results: Most Recent Lab Values WBC 5.5 K/uL (4.8-10.8) 11/22/17 04:20 RBC 3.02 Mil/uL (4.40-5.90) L 11/22/17 04:20 Hgb 10.0 g/dL (12.0-18.0) L 11/22/17 04:20 Hct 30.9 % (35.0-51.0) L 11/22/17 04:20 MCV 102.5 fl (80.0-94.0) H 11/22/17 04:20 MCH 33.0 pg (27.0-31.0) H 11/22/17 04:20 MCHC 32.2 g/dL (33.0-37.0) L 11/22/17 04:20 RDW 19.3 % (11.5-14.5) H 11/22/17 04:20 Plt Count 167 K/uL (130-400) 11/22/17 04:20 MPV 7.6 fl (7.2-11.7) 11/20/17 04:20 Neut % (Auto) 46.3 % (50.0-75.0) L 11/20/17 04:20 Lymph % (Auto) 36.3 % (20.0-40.0) 11/20/17 04:20 [place] % (Auto) 11.4 % (0.0-10.0) H 11/20/17 04:20 Eos % (Auto) 5.4 % (0.0-4.0) H 11/20/17 04:20 Baso % (Auto) 0.6 % (0.0-2.0) 11/20/17 04:20 Neut # 2.4 K/uL (1.8-7.0) 11/20/17 04:20 Lymph # 1.9 K/uL (1.0-4.3) 11/20/17 04:20 [place] # 0.6 K/uL (0.0-0.8) 11/20/17 04:20 Eos # 0.3 K/uL (0.0-0.7) 11/20/17 04:20 Baso # 0.0 K/uL (0.0-0.2) 11/20/17 04:20 APTT 32.3 Seconds (25.6-37.1) 11/20/17 04:20 D-Dimer, Quantitative 755 ng/mlDDU (0-230) H 11/19/17 14:20 Sodium 140 mmol/l (132-148) 11/22/17 04:20 Potassium 5.2 MMOL/L (3.6-5.0) H 11/22/17 04:20 Chloride 98 mmol/L (98-107) 11/22/17 04:20 Carbon Dioxide 28 mmol/L (22-30) 11/22/17 04:20 Anion Gap 19 (10-20) 11/22/17 04:20 BUN 31 mg/dl (9-20) H 11/22/17 04:20 Creatinine 5.8 mg/dl (0.8-1.5) H 11/22/17 04:20 Est GFR ( Amer) 12 11/22/17 04:20 Est GFR (Non-Af Amer) 10 11/22/17 04:20 Random Glucose 78 mg/dL (75-110) 11/22/17 04:20 Calcium 8.2 mg/dL (8.4-10.2) L 11/22/17 04:20 Phosphorus 8.2 mg/dl (2.5-4.5) H 11/21/17 04:00 Magnesium 2.4 MG/DL (1.6-2.3) H 11/21/17 04:00 Total Bilirubin 0.4 mg/dl (0.2-1.3) 11/22/17 04:20 AST 25 U/L (17-59) 11/22/17 04:20 ALT 24 U/L (21-72) 11/22/17 04:20 Alkaline Phosphatase 58 U/L (38-126) 11/22/17 04:20 Troponin I 0.0130 ng/mL (0.00-0.120) 11/19/17 20:30 NT-Pro-B Natriuret Pep 94700 pg/ml (0-900) H 11/19/17 20:28 Total Protein 6.9 G/DL (6.3-8.2) 11/22/17 04:20 Albumin 3.8 g/dL (3.5-5.0) 11/22/17 04:20 Globulin 3.1 gm/dL (2.2-3.9) 11/22/17 04:20 Albumin/Globulin Ratio 1.2 (1.0-2.1) 11/22/17 04:20 Hep Bs Antigen Negative (NEGATIVE) 11/21/17 04:00 - Hospital Course Hospital Course: 67 y/o M with a PMHx of ESRD on HD, HTN, COPD, Vasculitis, DVT of RUE, recent SC and CHF was admitted for evaluation of chest pain and tachycardia on . Acute SC and PE were ruled out. EKG and serum troponins were unremarkable. V /Q scan took 2 days to be performed due to tachycardia, hyperkalemia and SOB. V/ Q scan showed low probability for PE. Pt reported feeling well, no more chest pain, reports intermittent cough. No acute events overnight. -HYDRALAZINE was stopped, pt made aware. -PT IS DISCHARGED TODAY, 11/23/17. PRESCRIPTION FOR HIS MEDICATIONS PROVIDED. -Pt will follow-up with Jennifer Sifuentes on Monday11/28/17 at 1pm. Pt also instructed to follow up with his project controller and hand roller engraver. Pt will continue hemodyalisis on T-T-S. - Date & Time of H&P Date of H&P: 11/19/17 Time of H&P: 14:22 Discharge Exam - Head Exam Head Exam: ATRAUMATIC, NORMAL INSPECTION - Eye Exam Eye Exam: EOMI, Normal appearance, PERRL - ENT Exam ENT Exam: Mucous Membranes Moist, Normal Oropharynx - Neck Exam Neck exam: Full Rom - Respiratory Exam Respiratory Exam: Decreased Breath Sounds (Presence of ronchi bilaterally, after coughin and expulsion of sputum, lung magaña were clearer. ), NORMAL BREATHING PATTERN, UNREMARKABLE - Cardiovascular Exam Cardiovascular Exam: REGULAR RHYTHM, +S1, +S2 - GI/Abdominal Exam GI & Abdominal Exam: Normal Bowel Sounds, Unremarkable. absent: Distended, Guarding - Extremities Exam Extremities exam: full ROM - Neurological Exam Neurological exam: Alert, Oriented x3 - Psychiatric Exam Psychiatric exam: Normal Affect, Normal Mood Discharge Plan - Discharge Medications Prescriptions: Aspirin [Aspirin Chewable] 81 mg PO DAILY 30 Days #30 chew Atorvastatin [Lipitor] 10 mg PO DAILY 30 Days #30 tab B Complex W-C No.20/Folic Acid [Renal Caps Softgel] 1 mg PO DAILY 30 Days #30 capsule Calcium Acetate [Phoslo] 1,334 mg PO TID #90 capsule Carvedilol [Coreg] 50 mg PO BID #60 tab Clopidogrel [Plavix] 75 mg PO DAILY #30 tab Fluticasone/Salmeterol 500/50 [Advair Diskus 500/50] 1 puff INH Q12 30 Days #1 puff - Follow Up Plan Condition: FAIR Disposition: HOME/ ROUTINE Instructions: Renal Failure Diet (DC) Additional Instructions: -Please follow-up with project controller Dr Miles within 5 days. -Please follow up with Jennifer Sifuentes at the [facility] on Monday at 1:00pm. -Please continue with home medications and scheduled hemodyalisis. -Please place Nitroglycerin tab under tongue with chest pain, if not improvement after 5 minutes, place a second and third dose. If no improvement by 3rd dose, go immediately to ER. -ER precautions discussed with pt.
[2017-11-23 16:01] VITALS: BP 113/51; PULSE 77; TEMP 98.3; O2SAT 96
== END 2017-11-23 17:00 | disposition home or self-care (01) | DRG 544 ==
LOC: H.ER 11:54 → H.ERHOLD 13:51 → OBSVTOIN 14:58 → H.TEL 15:35
PROVIDERS: ADMIT Family Medicine; ATTEND Family Medicine
PROC: 5A1D70Z Performance of Urinary Filtration, Intermittent, Less than 6 Hours Per Day (ICD-10-PCS; principal; 2017-11-21)
PROC: 5A1D70Z Performance of Urinary Filtration, Intermittent, Less than 6 Hours Per Day (ICD-10-PCS; 2017-11-23)
DX: I13.2 Hypertensive heart and chronic kidney disease with heart failure and with stage 5 chronic kidney disease, or end stage renal disease (principal); I50.32 Chronic diastolic (congestive) heart failure; N17.9 Acute kidney failure, unspecified; R56.9 Unspecified convulsions; J44.9 Chronic obstructive pulmonary disease, unspecified; E83.39 Other disorders of phosphorus metabolism; E87.5 Hyperkalemia; N18.6 End stage renal disease; I25.2 Old myocardial infarction; Z59.0 Homelessness; Z87.01 Personal history of pneumonia (recurrent); Z87.891 Personal history of nicotine dependence; Z99.2 Dependence on renal dialysis; F45.9 Somatoform disorder, unspecified; I77.6 Arteritis, unspecified; K64.9 Unspecified hemorrhoids; M19.90 Unspecified osteoarthritis, unspecified site; D53.9 Nutritional anemia, unspecified; I08.0 Rheumatic disorders of both mitral and aortic valves

== ENCOUNTER 2018-01-15 01:34 | Observation (INO) | payer SELFPAY ==
[2018-01-15 01:47] VITALS: BMI 26.2
--- NOTE | 2018-01-15 02:22 | ED PDOC ---
HPI: Chest Pain Time Seen by Provider: 01/15/18 01:40 Chief Complaint (Nursing): Chest Pain Chief Complaint (Provider): Chest Pain History Per: Patient History/Exam Limitations: no limitations Onset/Duration Of Symptoms: Hrs (x 7) Current Symptoms Are (Timing): Still Present Additional Complaint(s): 68 year old male with a history of high cholesterol, alcohol abuse, kidney disease, HTN, COPD, DVT presents to the ED complaining of chest pain since 19: 00 yesterday. At home, he took 5 sublingual nitroglycerin with minimal relief. ALS gave him another nitro and Aspirin which gave more relief. PMD: none provided Past Medical History Reviewed: Historical Data, Nursing Documentation, Vital Signs Vital Signs: Last Vital Signs Temp 97.5 F L 01/15/18 09:26 Pulse 78 01/15/18 10:44 Resp 18 01/15/18 10:44 BP 141/61 01/15/18 09:26 Pulse Ox 95 01/15/18 09:26 - Medical History PMH: Anemia, Anxiety, Arthritis, CHF, COPD, Depression, Deep Vein Thrombosis ( RUE), HTN, Pneumonia, End Stage Renal Disease, Chronic Kidney Disease, Seizures Denies: HIV - Surgical History Surgical History: Denies: Coronary Stent - Family History Family History: States: Unknown Family Hx - Immunization History Hx Tetanus Toxoid Vaccination: No Hx Influenza Vaccination: Yes Hx Pneumococcal Vaccination: Yes - Home Medications Home Medications: Ambulatory Orders Medication Instructions Recorded Sevelamer Carbonate [Renvela] 2 tab PO TID 08/17/17 Epoetin José Manuel [Procrit] 10,000 unit IV TTS ml 09/26/17 Vitamin B Complex/Vit C/Folic 1 tab PO DAILY tab 10/18/17 [Nephro-Yemi] Aspirin [Aspirin Chewable] 81 mg PO DAILY 30 Days #30 chew 11/23/17 Atorvastatin [Lipitor] 10 mg PO DAILY 30 Days #30 tab 11/23/17 Carvedilol [Coreg] 50 mg PO BID #60 tab 11/23/17 Fluticasone/Salmeterol 500/50 1 puff INH Q12 30 Days #1 puff 01/15/18 [Advair Diskus 500/50] - Allergies Allergies/Adverse Reactions: Allergies Allergy/AdvReac Type Severity Reaction Status Date / Time sulfamethoxazole Allergy RASH Verified 01/15/18 01:47 [From ] trimethoprim [From ] Allergy RASH Verified 01/15/18 01:47 Review of Systems ROS Statement: Except As Marked, All Systems Reviewed And Found Negative Constitutional: Negative for: Weakness Cardiovascular: Positive for: Chest Pain Respiratory: Negative for: Shortness of Breath Gastrointestinal: Negative for: Vomiting Physical Exam - Reviewed Nursing Documentation Reviewed: Yes Vital Signs Reviewed: Yes - Physical Exam Appears: Positive for: Non-toxic, No Acute Distress Head Exam: Positive for: ATRAUMATIC, NORMOCEPHALIC Skin: Positive for: Normal Color, Warm, Dry Eye Exam: Positive for: EOMI, Normal appearance, PERRL Neck: Positive for: Normal, Painless ROM, Supple Cardiovascular/Chest: Positive for: Regular Rate, Rhythm. Negative for: Murmur Respiratory: Positive for: Normal Breath Sounds. Negative for: Respiratory Distress Gastrointestinal/Abdominal: Positive for: Normal Exam, Soft. Negative for: Tenderness Back: Positive for: Normal Inspection. Negative for: L CVA Tenderness, R CVA Tenderness Extremity: Positive for: Normal ROM. Negative for: Deformity Neurologic/Psych: Positive for: Alert, Oriented. Negative for: Motor/Sensory Deficits - Laboratory Results Result Diagrams: 01/15/18 03:10 01/15/18 03:10 - ECG O2 Sat by Pulse Oximetry: 94 (RA) Pulse Ox Interpretation: Normal Medical Decision Making Medical Decision Making: Time: 01:56 Initial Plan: chest pain, with multiple cardiac risk factors [place] out [place] --CMP --BNP --CBC --Chest x-ray --Troponin I EKG Sinus tachycardia at rate of 116 pt got asa and nitro in the field prior to arrival. Time: 04:34 --spoke to family practice resident who accepted admission for CHF and chest pain to rule out malignant arrythmia. Scribe Attestation: Documented by Enma Denzel, acting as a scribe for Ana Toussaint MD. Provider Scribe Attestation: All medical record entries made by the Scribe were at my direction and personally dictated by me. I have reviewed the chart and agree that the record accurately reflects my personal performance of the history, physical exam, medical decision making, and the department course for this patient. I have also personally directed, reviewed, and agree with the discharge instructions and disposition. Disposition - Clinical Impression Clinical Impression: CHF (congestive heart failure), Chest pain - Patient ED Disposition Is Patient to be Admitted: Yes Counseled Patient/Family Regarding: Studies Performed, Diagnosis - Disposition Disposition Time: 03:13 Condition: STABLE - Pt Status Changed To: Hospital Disposition Of: Observation
[2018-01-15 03:34] LABS: BASO % 0.8 % (0.0-2.0); EOS # 0.2 K/uL (0.0-0.7); EOS % 3.5 % (0.0-4.0); LYMPH # 1.8 K/uL (1.0-4.3); LYMPH % 31.4 % (20.0-40.0); MEAN CELL VOLUME 101.1 fl (80.0-94.0); MEAN CORPUSCULAR HEMOGLOBIN 33.5 pg (27.0-31.0); MEAN CORPUSCULAR HGB CONC 33.2 g/dL (33.0-37.0); MEAN PLATELET VOLUME 8.5 fl (7.2-11.7); MONO # 0.6 K/uL (0.0-0.8); MONO % 10.5 % (0.0-10.0); NEUT # 3.1 K/uL (1.8-7.0); NEUT % 53.8 % (50.0-75.0); NRBC % 0.1 % (0.0-0.0); RBC 2.67 Mil/uL (4.40-5.90); RED CELL DISTRIBUTION WIDTH 16.8 % (11.5-14.5); WHITE BLOOD COUNT 5.8 K/uL (4.8-10.8)
[2018-01-15 03:56] LABS: ALB/GLOB RATIO 1.3 (1.0-2.1); ALBUMIN 3.6 g/dL (3.5-5.0); ALT/SGPT 26 U/L (21-72); AST/SGOT 18 U/L (17-59); B-TYPE NATRIURETIC PEPTIDE 25500 pg/ml (0-900); BLOOD UREA NITROGEN 53 mg/dl (9-20); CALCIUM 8.4 mg/dL (8.4-10.2); GFR AFRICAN-AMERICAN 10; GFR NON-AFRICAN AMERICAN 9
--- NOTE | 2018-01-15 05:39 | CP.PCM.HP ---
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 Reports he began having aching substernal chest pain after eating. He took sublingual nitroglycerin with relief of symptoms, but had to repeat this 4 more times prompting his ED visit. He denies any dyspnea, chest pressure/heaviness, and cough. No recent illness, URI symptoms. He has appt. with cardiology-Dr. Price on 01.16.18, therefore dialysis was scheduled for today. He reports his inhaled medications were discontinued during previous admission. 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 Medications: As per med rec Allergies: TMP/SMX Social: occasional smoker, no etoh use Surgical : AV fistula left arm Family hx denies No advanced directives Present on Admission - Present on Admission Any Indicators Present on Admission: Yes History of DVT/PE: Yes Review of Systems - Constitutional Constitutional: absent: Chills, Fever, Weakness - EENT Eyes: absent: Change in Vision Nose/Mouth/Throat: absent: Nasal Congestion, Sore Throat - Cardiovascular Cardiovascular: Chest Pain. absent: Dyspnea, Dyspnea on Exertion, Edema, Palpitations, Syncope - Respiratory Respiratory: absent: Cough, Dyspnea, Dyspnea on Exertion, Chest Congestion - Gastrointestinal Gastrointestinal: absent: Abdominal Pain, Diarrhea, Nausea, Vomiting - Integumentary Integumentary: absent: Rash - Neurological Neurological: absent: Dizziness, Numbness, Focal Weakness, Tingling Past Patient History - Infectious Disease Hx of Infectious Diseases: None - Past Medical History & Family History Past Medical History?: Yes - Past Social History Smoking Status: Former Smoker - CARDIAC Hx Congestive Heart Failure: Yes Hx Hypertension: Yes - PULMONARY Hx Chronic Obstructive Pulmonary Disease (COPD): Yes Hx Pneumonia: Yes - NEUROLOGICAL Hx Seizures: Yes - HEENT Hx HEENT Problems: No - RENAL Hx Chronic Kidney Disease: Yes - ENDOCRINE/METABOLIC Hx Endocrine Disorders: No - HEMATOLOGICAL/ONCOLOGICAL Hx Anemia: Yes Hx Human Immunodeficiency Virus (HIV): No - INTEGUMENTARY Hx Dermatological Problems: No - MUSCULOSKELETAL/RHEUMATOLOGICAL Hx Arthritis: Yes - GASTROINTESTINAL Hx Gastrointestinal Disorders: Yes Hx Hemorrhoids: Yes - GENITOURINARY/GYNECOLOGICAL Hx Genitourinary Disorders: No - PSYCHIATRIC Hx Anxiety: Yes Hx Depression: Yes - SURGICAL HISTORY Hx Coronary Stent: No - ANESTHESIA Hx Anesthesia: Yes Hx Anesthesia Reactions: No Hx Malignant Hyperthermia: No Meds Allergies/Adverse Reactions: Allergies Allergy/AdvReac Type Severity Reaction Status Date / Time sulfamethoxazole Allergy RASH Verified 01/15/18 01:47 [From ] trimethoprim [From ] Allergy RASH Verified 01/15/18 01:47 Physical Exam - Constitutional Appears: Well, Non-toxic, No Acute Distress (sleeping ) - Head Exam Head Exam: ATRAUMATIC, NORMAL INSPECTION, NORMOCEPHALIC - Eye Exam Eye Exam: Normal appearance, PERRL - Neck Exam Neck exam: Positive for: Normal Inspection - Respiratory Exam Respiratory Exam: Rhonchi (diffuse bilaterally). absent: Rales, Wheezes, Respiratory Distress - Cardiovascular Exam Cardiovascular Exam: Tachycardia, REGULAR RHYTHM, +S1, +S2 - GI/Abdominal Exam GI & Abdominal Exam: Normal Bowel Sounds, Soft. absent: Distended, Guarding, Rebound, Tenderness - Rectal Exam Rectal Exam: Deferred - Extremities Exam Extremities exam: Positive for: normal inspection. Negative for: pedal edema Additional comments: left upper extremity: AV fistula+bruit - Neurological Exam Neurological exam: Alert, CN II-XII Intact, Oriented x3 - Psychiatric Exam Psychiatric exam: Normal Affect, Normal Mood - Skin Skin Exam: Dry, Intact, Normal Color, Warm Results - Vital Signs Recent Vital Signs: Last Vital Signs Temp 97.8 F 01/15/18 01:47 Pulse 115 H 01/15/18 02:42 Resp 25 H 01/15/18 01:47 BP 131/63 01/15/18 01:47 Pulse Ox 94 L 01/15/18 04:45 - Labs Result Diagrams: 01/15/18 03:10 01/15/18 03:10 Labs: Laboratory Results - last 24 hr 01/15/18 01/15/18 03:10 03:10 WBC 5.8 RBC 2.67 L Hgb 9.0 L Hct 27.0 L MCV 101.1 H MCH 33.5 H MCHC 33.2 RDW 16.8 H Plt Count 148 MPV 8.5 Neut % (Auto) 53.8 Lymph % (Auto) 31.4 [place] % (Auto) 10.5 H Eos % (Auto) 3.5 Baso % (Auto) 0.8 Neut # (Auto) 3.1 Lymph # (Auto) 1.8 [place] # (Auto) 0.6 Eos # (Auto) 0.2 Baso # (Auto) 0.0 Sodium 139 Potassium 5.0 Chloride 98 Carbon Dioxide 26 Anion Gap 20 BUN 53 H Creatinine 6.5 H Est GFR ( Amer) 10 Est GFR (Non-Af Amer) 9 Random Glucose 80 Calcium 8.4 Total Bilirubin 0.4 AST 18 ALT 26 Alkaline Phosphatase 58 Troponin I < 0.0120 NT-Pro-B Natriuret Pep 79058 H Total Protein 6.5 Albumin 3.6 Globulin 2.8 Albumin/Globulin Ratio 1.3 Assessment & Plan (1) Chest pain Assessment and Plan: 68 year old male with PMH of ESRD on HD TTHS, HTN, COPD, 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 Last echo 10/16/17: LV EF WNL, borderline dilated LV, severe Aortic regurgitation, severe mitral regurgitation, mild tricuspid regurgitation. Cardiac cath 10/17/17 -admitted to [facility], serial troponins -currently asymptomatic -EKG ordered Status: Acute Priority: High (2) ESRD (end stage renal disease) Assessment and Plan: On HD T//Mon, however scheduled for 01/15/18 due to cardiology appt. on with Dr. Price. -nephrology-Dr. Sandoval Status: Acute (3) COPD (chronic obstructive pulmonary disease) Assessment and Plan: Duonebs PRN, no acute shortness of breath or O2 desaturation. -as per [facility] records-patient applying for assitance outpatient -does not currently have any medications for this at home Status: Chronic (4) Hypertension Assessment and Plan: well controlled, resume home medications Status: Chronic (5) DVT prophylaxis Assessment and Plan: -scds Status: Acute
[2018-01-15] MEDS ORDERED: Albuterol-Ipratrop 3 mg / 0.5 (3 ml) UD INH PRN (06:05)
[2018-01-15 07:54] VITALS: RESP 18
--- NOTE | 2018-01-15 08:57 | CARD ---
APPROVED REPORT EKG Measurement Heart [id number] <Conclusion> Sinus tachycardia Possible Left atrial enlargement Septal infarct, age undetermined Abnormal ECG
[2018-01-15] MEDS ORDERED: [UNRECOGNIZED DRUG - REMARK] PO SCH (09:00)
[2018-01-15] MEDS ORDERED: Multivitamin Vitamin B Complex (Nephro-Vite) Tab PO SCH (09:00)
[2018-01-15] MEDS ORDERED: Calcium Acetate 667 MG Capsule PO SCH (09:00)
[2018-01-15] MEDS ORDERED: Fluticasone-Salmeterol 500-50mcg Diskus INH SCH (09:00)
[2018-01-15] MEDS ORDERED: SEVELAMER CARBONATE PO SCH (09:00)
[2018-01-15 09:26] VITALS: BP 141/61; TEMP 97.5
--- NOTE | 2018-01-15 09:45 | RAD ---
HISTORY: chest pain COMPARISON: No prior. FINDINGS: LUNGS: Lung magaña are hyperinflated with what appears to represent a chronic scarring the interstitial changes. Suspect pleural thickening left CP angle region as well. PLEURA: No significant pleural effusion identified, no pneumothorax apparent. CARDIOVASCULAR: Heart appears upper limits of normal/borderline enlarged OSSEOUS STRUCTURES: No significant abnormalities. VISUALIZED UPPER ABDOMEN: Normal. OTHER FINDINGS: None. IMPRESSION: Lung magaña are hyperinflated with what appears to represent a chronic scarring the interstitial changes. Suspect pleural thickening left CP angle region as well.
[2018-01-15 10:57] VITALS: PULSE 78
--- NOTE | 2018-01-15 17:21 | CP.PCM.DIS ---
Provider - Provider Date of Admission: 01/15/18 04:13 Attending physician: Aaliyah Knott MD Primary care physician: [facility] Time Spent in preparation of Discharge (in minutes): 30 Diagnosis - Discharge Diagnosis (1) Chest pain Status: Resolved Priority: High Comment: Admitted to r/o ACS. Troponins negative x2; chest pain resolved in ED after sublingual nitroglycerin. Pt has appt with newspaper copy editor Dr. Price tomorrow. Hospital Course - Lab Results Lab Results: Most Recent Lab Values WBC 5.8 K/uL (4.8-10.8) 01/15/18 03:10 RBC 2.67 Mil/uL (4.40-5.90) L 01/15/18 03:10 Hgb 9.0 g/dL (12.0-18.0) L 01/15/18 03:10 Hct 27.0 % (35.0-51.0) L 01/15/18 03:10 MCV 101.1 fl (80.0-94.0) H 01/15/18 03:10 MCH 33.5 pg (27.0-31.0) H 01/15/18 03:10 MCHC 33.2 g/dL (33.0-37.0) 01/15/18 03:10 RDW 16.8 % (11.5-14.5) H 01/15/18 03:10 Plt Count 148 K/uL (130-400) 01/15/18 03:10 MPV 8.5 fl (7.2-11.7) 01/15/18 03:10 Neut % (Auto) 53.8 % (50.0-75.0) 01/15/18 03:10 Lymph % (Auto) 31.4 % (20.0-40.0) 01/15/18 03:10 [place] % (Auto) 10.5 % (0.0-10.0) H 01/15/18 03:10 Eos % (Auto) 3.5 % (0.0-4.0) 01/15/18 03:10 Baso % (Auto) 0.8 % (0.0-2.0) 01/15/18 03:10 Neut # (Auto) 3.1 K/uL (1.8-7.0) 01/15/18 03:10 Lymph # (Auto) 1.8 K/uL (1.0-4.3) 01/15/18 03:10 [place] # (Auto) 0.6 K/uL (0.0-0.8) 01/15/18 03:10 Eos # (Auto) 0.2 K/uL (0.0-0.7) 01/15/18 03:10 Baso # (Auto) 0.0 K/uL (0.0-0.2) 01/15/18 03:10 Sodium 139 mmol/l (132-148) 01/15/18 03:10 Potassium 5.0 MMOL/L (3.6-5.0) 01/15/18 03:10 Chloride 98 mmol/L (98-107) 01/15/18 03:10 Carbon Dioxide 26 mmol/L (22-30) 01/15/18 03:10 Anion Gap 20 (10-20) 01/15/18 03:10 BUN 53 mg/dl (9-20) H 01/15/18 03:10 Creatinine 6.5 mg/dl (0.8-1.5) H 01/15/18 03:10 Est GFR ( Amer) 10 01/15/18 03:10 Est GFR (Non-Af Amer) 9 01/15/18 03:10 Random Glucose 80 mg/dL (75-110) 01/15/18 03:10 Calcium 8.4 mg/dL (8.4-10.2) 01/15/18 03:10 Total Bilirubin 0.4 mg/dl (0.2-1.3) 01/15/18 03:10 AST 18 U/L (17-59) 01/15/18 03:10 ALT 26 U/L (21-72) 01/15/18 03:10 Alkaline Phosphatase 58 U/L (38-126) 01/15/18 03:10 Troponin I < 0.0120 ng/mL (0.00-0.120) 01/15/18 10:18 NT-Pro-B Natriuret Pep 87047 pg/ml (0-900) H 01/15/18 03:10 Total Protein 6.5 G/DL (6.3-8.2) 01/15/18 03:10 Albumin 3.6 g/dL (3.5-5.0) 01/15/18 03:10 Globulin 2.8 gm/dL (2.2-3.9) 01/15/18 03:10 Albumin/Globulin Ratio 1.3 (1.0-2.1) 01/15/18 03:10 - Hospital Course Hospital Course: Pt was admitted to r/o ACS. Troponins drawn 6 hrs apart neg x2. EKG showed sinus tachycardia; tachycardia and chest pain resolved by am. Pt has appt with newspaper copy editor Dr. Price tomorrow morning, and had HD appt today at 2:30 pm. Discharge Exam - Head Exam Head Exam: ATRAUMATIC, NORMAL INSPECTION, NORMOCEPHALIC - Eye Exam Eye Exam: Normal appearance - ENT Exam ENT Exam: Mucous Membranes Moist - Respiratory Exam Respiratory Exam: NORMAL BREATHING PATTERN. absent: Respiratory Distress - Cardiovascular Exam Cardiovascular Exam: REGULAR RHYTHM, +S1, +S2 - GI/Abdominal Exam GI & Abdominal Exam: Normal Bowel Sounds, Unremarkable - Extremities Exam Additional comments: left upper extremity: AV fistula, + thrill - Neurological Exam Neurological exam: Alert - Psychiatric Exam Psychiatric exam: Normal Mood - Skin Skin Exam: Dry, Intact, Normal Color, Warm Discharge Plan - Discharge Medications Prescriptions: Fluticasone/Salmeterol 500/50 [Advair Diskus 500/50] 1 puff INH Q12 30 Days #1 puff - Follow Up Plan Condition: STABLE Disposition: HOME/ ROUTINE Patient education suggested?: Yes Instructions: Angina, Heart Failure, Adult (DC), Renal Failure Diet (DC) Additional Instructions: Please go to your scheduled dialysis appointment today. You have an appointment with Dr. Price at the [facility] TOMORROW AT 11: 00 AM ; [address] [place] [address]. You have an appt with your PMD at the clinic TOMORROW at 3:20 pm at [address] [place] [address]. Advair inhaler was sent your pharmacy. Return to ED if symptoms return/worsen. Referrals: [facility] [Outside] - 01/16/18 3:20 pm Dao Price MD [Staff Provider] -
[2018-01-16] MEDS ORDERED: EPOETIN ALFA 10,000 UNIT/ML ML IV SCH (09:00)
[2018-01-17 20:55] VITALS: O2SAT 94
== END 2018-01-15 13:57 | disposition home or self-care (01) ==
LOC: H.ER 01:34 → H.ERHOLD 04:13 → H.TEL 09:11
PROVIDERS: ADMIT Family Medicine Geriatric Medicine; ATTEND Family Medicine Geriatric Medicine
DX: R07.9 Chest pain, unspecified (principal); I13.2 Hypertensive heart and chronic kidney disease with heart failure and with stage 5 chronic kidney disease, or end stage renal disease; I50.32 Chronic diastolic (congestive) heart failure; J44.9 Chronic obstructive pulmonary disease, unspecified; N18.6 End stage renal disease; Z99.2 Dependence on renal dialysis; E78.00 Pure hypercholesterolemia, unspecified; Z88.2 Allergy status to sulfonamides; Z86.718 Personal history of other venous thrombosis and embolism; F17.200 Nicotine dependence, unspecified, uncomplicated; I08.3 Combined rheumatic disorders of mitral, aortic and tricuspid valves; F32.9 Major depressive disorder, single episode, unspecified; R00.0 Tachycardia, unspecified; Z98.61 Coronary angioplasty status
CPT/HCPCS: 71045; 80053; 83880; 84484; 85025; 93005; 94150; 94640; 96374; 99285; G0378; J1940

== ENCOUNTER 2018-02-12 09:43 | Emergency (ER) | payer OTHER, SELFPAY ==
[2018-02-12 09:43] VITALS: BMI 26.2
[2018-02-12 09:55] VITALS: BP 136/73; RESP 20; TEMP 97; O2SAT 100
[2018-02-12] MEDS ORDERED: Albuterol-Ipratrop 3 mg / 0.5 (3 ml) UD INH STA (10:52)
--- NOTE | 2018-02-12 10:57 | ED PDOC ---
HPI: Chest Pain Chief Complaint (Provider): "i have chest pain when i walk and eat" History Per: Patient, Wealth Management Director (driver courier Jose Roberto) <Felix Medeiros - Last Filed: 02/12/18 12:51> <Dona oMran - Last Filed: 02/14/18 15:20> Time Seen by Provider: 02/12/18 10:10 Chief Complaint (Nursing): Cough, Cold, Congestion Additional Complaint(s): 68 y/o male, with extensive medical history, including CKD on dialysis T/TH/S, presents for evaluation of worsening chest pain/cough/and SOB. Pt reports symptoms have been gradually worsening over the past week. He reports his chest pain is located mid-sternally, is 2-3/10, pressure/achy like in character, with out radiation. It is constant, but it worsens when he exerts himself or when he eats. It is alleviated with sublingual nitro. He reports he has been taking more and more nitro to control his symptoms. Reports SOB associated with this as well as cough, but denies any increased sputum purulence/fever. Says he was able to milk pickup driver his "breathin pump" because it was never prescribed. Reports being adherent with dialysis. Denies any fever/chills, left arm/jaw pain, diaphoresis, N/V/D/C, urinary symptoms, numbness/tingling. (Felix Medeiros) Supervising Attending Note - Supervising Attending Note The Documented history was done by the: Physician Personal Lines Agent, Attending Physician The documented physical exam was done by the: Physician Personal Lines Agent, Attending Physician The documented procedures were done by the: Physician Personal Lines Agent, Attending Physician - Attestation: I have personally seen and examined this patient.: Yes I have fully participated in the care of the patient.: Yes I have reviewed all pertinent clinical information: Yes <Dona Moran - Last Filed: 02/14/18 15:20> Past Medical History - Medical History PMH: Anemia, Anxiety, Arthritis, CHF, COPD, Depression, Deep Vein Thrombosis ( RUE), HTN, Pneumonia, End Stage Renal Disease, Chronic Kidney Disease, Seizures Denies: HIV - Surgical History Surgical History: Denies: Coronary Stent - Family History Family History: States: Unknown Family Hx - Immunization History Hx Tetanus Toxoid Vaccination: No Hx Influenza Vaccination: Yes Hx Pneumococcal Vaccination: Yes <Felix Medeiros - Last Filed: 02/12/18 12:51> <Dona Moran - Last Filed: 02/14/18 15:20> Vital Signs: Last Vital Signs Temp 97 F L 02/12/18 09:51 Pulse 102 H 02/12/18 09:51 Resp 20 02/12/18 09:51 BP 136/73 02/12/18 09:51 Pulse Ox 100 02/12/18 12:52 - Home Medications Home Medications: Ambulatory Orders Medication Instructions Recorded Sevelamer Carbonate [Renvela] 2 tab PO TID 08/17/17 Fluticasone/Salmeterol 500/50 1 puff INH Q12 30 Days #1 puff 01/15/18 [Advair Diskus 500/50] Atorvastatin [Lipitor] 10 mg PO HS 02/12/18 Carvedilol [Coreg] 25 mg PO Q12 02/12/18 Citalopram [celEXA] 20 mg PO DAILY 02/12/18 Clopidogrel [Plavix] 75 mg PO DAILY 02/12/18 Ranitidine HCl [Zantac] 150 mg PO BID 02/12/18 Vitamin B Complex [Super B-50 1 cap PO DAILY 02/12/18 Complex] - Allergies Allergies/Adverse Reactions: Allergies Allergy/AdvReac Type Severity Reaction Status Date / Time sulfamethoxazole Allergy RASH Verified 02/12/18 09:51 [From ] trimethoprim [From ] Allergy RASH Verified 02/12/18 09:51 BEV Risk Score for UA/NSTEMI - BEV Risk Score Age > 64: YES 3 or more CAD Risk Factors: YES Known CAD (Stenosis greater than 50%): YES Aspirin use in past 7 days: NO Severe Angina: NO EKG ST changes greater than 0.5mm: NO Positive Cardiac Marker: NO BEV Score: 3 Risk %: 13% <Dona Moran - Last Filed: 02/14/18 15:20> Review of Systems Constitutional: Negative for: Fever, Chills, Sweats, Weakness, Weight loss Eyes: Negative for: Vision Change ENT: Negative for: Nose Congestion Cardiovascular: Positive for: Chest Pain, Orthopnea. Negative for: Palpitations , Paroxysmal Noc. Dyspnea, Edema, Light Headedness Respiratory: Positive for: Cough, Shortness of Breath. Negative for: Hemoptysis , SOB with Exertion, Pleuritic Pain, Sputum, Wheezing Gastrointestinal: Negative for: Nausea, Vomiting, Abdominal Pain, Diarrhea, Constipation, Melena, Hematochezia, Hematemesis Genitourinary Male: Negative for: Dysuria, Frequency, Incontinence Musculoskeletal: Negative for: Neck Pain Skin: Negative for: Rash, Jaundice, Bruising Neurological: Negative for: Weakness, Numbness, Incoordination, Change in Speech , Confusion, Seizures, Altered Mental Status, Headache Psych: Negative for: Anxiety <Felix Medeiros - Last Filed: 02/12/18 12:51> ROS Statement: Except As Marked, All Systems Reviewed And Found Negative <Dona Moran - Last Filed: 02/14/18 15:20> Physical Exam - Reviewed Nursing Documentation Reviewed: Yes Vital Signs Reviewed: Yes - Physical Exam Appears: Positive for: Non-toxic, No Acute Distress (sitting at semi-fowlers, comfortable, talking in full sentences w/o difficulty ) Head Exam: Positive for: ATRAUMATIC, NORMAL INSPECTION, NORMOCEPHALIC Skin: Positive for: Normal Color, Warm, Dry. Negative for: Diaphoresis, Pallor , Rash, Cyanosis Eye Exam: Positive for: EOMI, PERRL, Conjunctival injection (b/l) ENT: Positive for: Normal ENT Inspection Neck: Positive for: Normal, Painless ROM, Supple. Negative for: Decreased ROM Cardiovascular/Chest: Positive for: Regular Rate, Rhythm, Chest Non Tender. Negative for: Edema, Gallop, JVD, Murmur, Bradycardia, Tachycardia, Ectopy, Friction Rub, Irregularly Irregular Respiratory: Positive for: Rales (b/l at both lung bases ), Rhonchi (likley tranmsitted rhochercous sounds from upper airway b/l). Negative for: Normal Breath Sounds, Decreased Breath Sounds, Accessory Muscle Use, Stridor, Wheezing , Respiratory Distress, Plerual Rub Pulses-Radial (L): 2+ Pulses-Radial (R): 2+ Gastrointestinal/Abdominal: Positive for: Bowel Sounds (normal ), Soft. Negative for: Tenderness, Organomegaly Extremity: Positive for: Capillary Refill (<2s), Other (left fisutla, functioning, +bruit/pulsating ). Negative for: Pedal Edema, Calf Tenderness Lymphatic: Negative for: Adenopathy Neurologic/Psych: Positive for: Alert, roving or yarn color checker II-XII, Oriented. Negative for: Motor/Sensory Deficits <Felix Medeiros - Last Filed: 02/12/18 12:51> - Laboratory Results Result Diagrams: 02/12/18 11:14 02/12/18 11:14 - ECG O2 Sat by Pulse Oximetry: 100 <Felix Medeiros - Last Filed: 02/12/18 12:51> - Laboratory Results Result Diagrams: 02/12/18 11:14 02/12/18 11:14 - ECG ECG: Positive for: Interpreted By Me, Viewed By Me ECG Rhythm: Positive for: Normal QRS, Sinus Rhythm, Sinus Tachycardia, ST/T Changes Rate: 101 - Radiology X-Ray: Viewed By Me, Read By Radiologist X-Ray Interpretation: Other (Left leural effusion) <Dona Moran - Last Filed: 02/14/18 15:20> - Progress ED Course And Treament: COPD/CHF/ACS/UNSTABLE ANGINA/ACUTE ON CHRONIC CKD CBC CMP TROP BNP CKMB COAGS SERUM ALC UDS EKG CXR DUO-NEB ASA 325 SL NITRO RE-EVALUATE HYPERKALEMIC, ELEVATED PROBNP, LEFT PLEURAL EFFUSION S/P DUO-NEB 3MG REG INSULIN 4 U D50 KAYEXALATE 15 CALCIUM GLUCONATE 1000 NEPHRO CONSULT (Felix Medeiros) Medical Decision Making <Felix Medeiros - Last Filed: 02/12/18 12:51> <Dona Moran - Last Filed: 02/14/18 15:20> Medical Decision Makin Discussed with Dr Sandoval who agrees with the management. Notified that patient refuses all medications. (Dona Moran) Disposition - Disposition Disposition: Against Medical Advice (upon being told pt will be admitted for further treatment and observation, he became frustrated, dressed himself and walked out the door) Disposition Time: 12:52 <Felix Medeiros - Last Filed: 02/12/18 12:51> - Patient ED Disposition Is Patient to be Admitted: No - Disposition Disposition: Left W/O Treatment <Dona Moran - Last Filed: 02/14/18 15:20> - Clinical Impression Clinical Impression: Pleural effusion, CHF (congestive heart failure), COPD (chronic obstructive pulmonary disease), Chest pain, ESRD (end stage renal disease), Hyperkalemia, COPD (chronic obstructive pulmonary disease) with chronic bronchitis - Disposition Condition: STABLE
[2018-02-12] MEDS ORDERED: Aspirin 325 mg EC Tablets PO SCH (11:00)
--- NOTE | 2018-02-12 11:14 | RAD ---
HISTORY: chest pain COMPARISON: Chest radiograph dated 01/15/2018 TECHNIQUE: Chest PA and lateral FINDINGS: LUNGS: Left basilar atelectasis. PLEURA: Small left pleural effusion. No pneumothorax apparent. CARDIOVASCULAR: Cardiomediastinal silhouette stably enlarged. OSSEOUS STRUCTURES: Unchanged. VISUALIZED UPPER ABDOMEN: Normal. OTHER FINDINGS: None. IMPRESSION: Small left pleural effusion.
[2018-02-12 11:20] LABS: HEMOGLOBIN 9.2 g/dL (12.0-18.0); MEAN CORPUSCULAR HGB CONC 32.9 g/dL (33.0-37.0); RBC 2.7 Mil/uL (4.40-5.90); RED CELL DISTRIBUTION WIDTH 17.2 % (11.5-14.5)
[2018-02-12] MEDS ORDERED: Aspirin 325 mg EC Tablets PO ONE (11:27)
[2018-02-12] MEDS ORDERED: Albuterol-Ipratrop 3 mg / 0.5 (3 ml) UD ONE (11:28)
[2018-02-12] MEDS ORDERED: Aspirin 325 mg EC Tablets PO STA (11:33)
[2018-02-12 11:42] LABS: B-TYPE NATRIURETIC PEPTIDE 33400 pg/ml (0-900); CK-MB 1.12 ng/mL (0.0-3.38)
[2018-02-12 11:56] LABS: ALB/GLOB RATIO 1.3 (1.0-2.1); ALBUMIN 3.9 g/dL (3.5-5.0); ALT/SGPT 25 U/L (21-72); AST/SGOT 18 U/L (17-59); BLOOD UREA NITROGEN 65 mg/dl (9-20); CALCIUM 8.3 mg/dL (8.4-10.2); GFR AFRICAN-AMERICAN 9; GFR NON-AFRICAN AMERICAN 7
[2018-02-12] MEDS ORDERED: Dextrose 50% SYRINGE Inj (50 ml) IVP ONE (12:11)
[2018-02-12] MEDS ORDERED: Sod Polystyrene Sulf 15 gm/60 ml Susp PO ONE (12:11)
[2018-02-12] MEDS ORDERED: Insulin Regular 100 units/ml SC STA (12:31)
[2018-02-12] MEDS ORDERED: Dextrose 50% SYRINGE Inj (50 ml) ONE (12:35)
[2018-02-12] MEDS ORDERED: Insulin Regular 100 units/ml ONE (12:36)
[2018-02-12] MEDS ORDERED: Sod Polystyrene Sulf 15 gm/60 ml Susp ONE (12:36)
[2018-02-12 12:49] LABS: MEAN CELL VOLUME 103.3 fl (80.0-94.0)
[2018-02-12 13:56] LABS: INR 1.1 (0.9-1.2); PROTHROMBIN TIME 11.7 Seconds (9.8-13.1)
--- NOTE | 2018-02-13 12:33 | CARD ---
APPROVED REPORT EKG Measurement Heart [id number] [place] 156P59 [id number] <Conclusion> Sinus tachycardia Possible Left atrial enlargement T wave abnormality, consider lateral ischemia Abnormal ECG
[2018-02-14 15:19] VITALS: PULSE 101
== END 2018-02-12 12:30 | disposition left against medical advice (07) ==
LOC: H.ER 09:43 → UNDOADMOB 12:34 → H.ERHOLD 12:34
DX: J90 Pleural effusion, not elsewhere classified (principal); I50.9 Heart failure, unspecified; J44.9 Chronic obstructive pulmonary disease, unspecified; N18.6 End stage renal disease; R07.9 Chest pain, unspecified; E87.5 Hyperkalemia; J42 Unspecified chronic bronchitis

== ENCOUNTER 2018-03-29 16:00 | Inpatient (IN) | payer OTHER ==
[2018-03-29] MEDS ORDERED: Nitroglycerin 2% Ointment Foilpak UD TOP ONE (16:49)
--- NOTE | 2018-03-29 16:52 | ED PDOC ---
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 denies: Nausea, Diaphoresis Modifying Factors: None Nitro Therapy Administered: 3 (+), Partial Relief Additional Complaint(s): 68yo male extensive medical history c/o ongoing intermittent chest pain for several weeks, now requiring 6-7 doses of SL nitro per day, states he gets relief for 10-15min then symptoms return. Notes mild dyspnea and dizziness. Received full HD today, T/T/S schedule. Past Medical History Reviewed: Historical Data, Nursing Documentation, Vital Signs Vital Signs: Last Vital Signs Temp 98.4 F 03/29/18 16:11 Pulse 66 03/29/18 18:28 Resp 16 03/29/18 18:21 BP 115/61 03/29/18 18:21 Pulse Ox 96 03/29/18 18:22 - Medical History PMH: Anemia, Anxiety, Arthritis, CAD, CHF, COPD, Depression, Deep Vein Thrombosis (RUE), HTN, Pneumonia, End Stage Renal Disease, Chronic Kidney Disease, Seizures Denies: HIV - Surgical History Surgical History: Denies: Coronary Stent - Family History Family History: States: Unknown Family Hx - Social History Current smoker - smoking cessation education provided: Yes - Immunization History Hx Tetanus Toxoid Vaccination: No Hx Influenza Vaccination: Yes Hx Pneumococcal Vaccination: Yes - Home Medications Home Medications: Ambulatory Orders Medication Instructions Recorded Sevelamer Carbonate [Renvela] 2 tab PO TID 08/17/17 Fluticasone/Salmeterol 500/50 1 puff INH Q12 30 Days #1 puff 01/15/18 [Advair Diskus 500/50] Atorvastatin [Lipitor] 10 mg PO HS 02/12/18 Carvedilol [Coreg] 25 mg PO Q12 02/12/18 Citalopram [celEXA] 20 mg PO DAILY 02/12/18 Clopidogrel [Plavix] 75 mg PO DAILY 02/12/18 Ranitidine HCl [Zantac] 150 mg PO BID 02/12/18 Vitamin B Complex [Super B-50 1 cap PO DAILY 02/12/18 Complex] - Allergies Allergies/Adverse Reactions: Allergies Allergy/AdvReac Type Severity Reaction Status Date / Time sulfamethoxazole Allergy RASH Verified 02/12/18 09:51 [From ] trimethoprim [From ] Allergy RASH Verified 02/12/18 09:51 BEV Risk Score for UA/NSTEMI - BEV Risk Score Age > 64: YES 3 or more CAD Risk Factors: YES Known CAD (Stenosis greater than 50%): YES Aspirin use in past 7 days: YES Severe Angina: YES BEV Score: 5 Risk %: 26% Review of Systems Constitutional: Negative for: Fever Eyes: Negative for: Vision Change ENT: Negative for: Throat Pain Cardiovascular: Positive for: Chest Pain, Palpitations, Light Headedness Respiratory: Positive for: Shortness of Breath, SOB with Exertion. Negative for : Cough Gastrointestinal: Negative for: Abdominal Pain Genitourinary Male: Negative for: Dysuria Musculoskeletal: Negative for: Neck Pain, Back Pain Skin: Negative for: Rash, Lesions Neurological: Negative for: Weakness, Numbness Psych: Negative for: Suicidal ideation Physical Exam - Reviewed Nursing Documentation Reviewed: Yes Vital Signs Reviewed: Yes - Physical Exam Appears: Positive for: Non-toxic, No Acute Distress Head Exam: Positive for: ATRAUMATIC, NORMAL INSPECTION, NORMOCEPHALIC Skin: Positive for: Normal Color, Warm, DRY Eye Exam: Positive for: EOMI, Normal appearance, PERRL ENT: Positive for: Normal ENT Inspection Neck: Positive for: Normal, Painless ROM Cardiovascular/Chest: Positive for: Regular Rate, Rhythm Respiratory: Positive for: CNT, Normal Breath Sounds Gastrointestinal/Abdominal: Positive for: Normal Exam, Soft Back: Positive for: Normal Inspection Extremity: Positive for: Normal ROM Neurologic/Psych: Positive for: Alert, Oriented - Laboratory Results Result Diagrams: 03/29/18 17:05 03/29/18 17:05 - ECG ECG: Positive for: Interpreted By Me ECG Rhythm: Positive for: Sinus Rhythm, ST/T Changes Interpretation Of Abn EKG: PVCs and anterolateral ST inversion new from prior EKG Rate: 66 O2 Sat by Pulse Oximetry: 96 Pulse Ox Interpretation: Normal Medical Decision Making Medical Decision Making: eval for chest pain with multiple risk factors initiated prior records reviewed, had cath 10/22 recommending medical management SL nitro, labs, CXR ordered labs reviewed elev BNP although hx ESRD first trop indeterminate given EKG changes admit tele, call placed cardio dr hercules clinical application specialist who cath' patient prior and case discussed, he will place orders. d/w pharmacy lovenox contraindicated in HD. Heparin drip thus initiated admit FP team Disposition - Clinical Impression Clinical Impression: Unstable angina - Patient ED Disposition Is Patient to be Admitted: Yes Counseled Patient/Family Regarding: Studies Performed, Diagnosis, Need For Followup - Disposition Disposition Time: 17:59 Condition: STABLE
--- NOTE | 2018-03-29 17:16 | RAD ---
HISTORY: SOB COMPARISON: 02/12/2018. FINDINGS: LUNGS: The lungs are well inflated. PLEURA: There is a persistent small left pleural effusion, no pneumothorax apparent. CARDIOVASCULAR: Normal. OSSEOUS STRUCTURES: No significant abnormalities. VISUALIZED UPPER ABDOMEN: Normal. OTHER FINDINGS: None. IMPRESSION: Persistent small left pleural effusion.
[2018-03-29 17:34] LABS: ALB/GLOB RATIO 1.1 (1.0-2.1); ALBUMIN 3.8 g/dL (3.5-5.0); CALCIUM 8.6 mg/dL (8.4-10.2); EOS # 0.1 K/uL (0.0-0.7); EOS % 2.7 % (0.0-4.0); HEMOGLOBIN 9.7 g/dL (12.0-18.0); LYMPH # 1.4 K/uL (1.0-4.3); LYMPH % 29.9 % (20.0-40.0); MEAN CELL VOLUME 102.9 fl (80.0-94.0); MEAN CORPUSCULAR HEMOGLOBIN 33.8 pg (27.0-31.0); MEAN CORPUSCULAR HGB CONC 32.8 g/dL (33.0-37.0); MEAN PLATELET VOLUME 8.1 fl (7.2-11.7); MONO # 0.6 K/uL (0.0-0.8); MONO % 12.2 % (0.0-10.0); NEUT # 2.5 K/uL (1.8-7.0); NEUT % 54.2 % (50.0-75.0); NRBC % 0.1 % (0.0-0.0); RBC 2.86 Mil/uL (4.40-5.90); RED CELL DISTRIBUTION WIDTH 18.5 % (11.5-14.5); WHITE BLOOD COUNT 4.7 K/uL (4.8-10.8)
[2018-03-29 17:45] LABS: TROPONIN I 0.018 ng/mL (0.00-0.120)
[2018-03-29] MEDS ORDERED: Enoxaparin 80 mg Syringe SC STA (18:34)
[2018-03-29] MEDS ORDERED: Heparin 25,000units in D5W 25,000 UNITS/250 ML BAG IV SCH ×2 (18:45→23:04)
[2018-03-29 19:13] LABS: INR 1.1 (0.9-1.2); PARTIAL THROMBOPLASTIN TIME 26.4 Seconds (25.6-37.1); PROTHROMBIN TIME 12.1 Seconds (9.8-13.1)
[2018-03-29] MEDS ORDERED: Heparin 25,000units in D5W 25,000 UNITS/250 ML BAG IV ONE (19:30)
[2018-03-29] MEDS ORDERED: Albuterol-Ipratrop 3 mg / 0.5 (3 ml) UD INH PRN (20:21)
--- NOTE | 2018-03-29 20:47 | CP.PCM.HP ---
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 Describes the pain as a sharp/pressure type of pain which has been occuring for 2 months on the left side of his chest and decreases when he takes his nitrate for about 20 min, however then pain reoccurs. He has been using 6-7 sublingual nitro doses a day. He has also been having a productive cough for the last week without any blood. Cough started one month ago and he states has been getting worse . Denies any fever or chills. - Patient had a cath on 10/22/18 at that time it was recommended to go with medical management. Cath showed that he had 60-70% stenosis of a small Ramus branch of LAD (otherwise mild lesions detected) Echo shows normal LVEF with severe MR and AR. Dr. Price had advised patient to go for valve replacement. Patient was [facility] to see cardiothorasic surgery for valve replacement: Patient states they were very rude to him and did not help him. 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 Medications: As per med rec Allergies: TMP/SMX Social: occasional smoker, no etoh use Surgical : AV fistula left arm Family hx denies No advanced directives BEV Score: 5 Present on Admission - Present on Admission Any Indicators Present on Admission: No Review of Systems - Review of Systems All systems: reviewed and no additional remarkable complaints except Past Patient History - Infectious Disease Hx of Infectious Diseases: None - Past Medical History & Family History Past Medical History?: Yes - Past Social History Smoking Status: Former Smoker - CARDIAC Hx Congestive Heart Failure: Yes Hx Hypertension: Yes - PULMONARY Hx Chronic Obstructive Pulmonary Disease (COPD): Yes Hx Pneumonia: Yes - NEUROLOGICAL Hx Seizures: Yes - HEENT Hx HEENT Problems: No - RENAL Hx Chronic Kidney Disease: Yes - ENDOCRINE/METABOLIC Hx Endocrine Disorders: No - HEMATOLOGICAL/ONCOLOGICAL Hx Anemia: Yes Hx Human Immunodeficiency Virus (HIV): No - INTEGUMENTARY Hx Dermatological Problems: No - MUSCULOSKELETAL/RHEUMATOLOGICAL Hx Arthritis: Yes - GASTROINTESTINAL Hx Gastrointestinal Disorders: Yes Hx Hemorrhoids: Yes - GENITOURINARY/GYNECOLOGICAL Hx Genitourinary Disorders: No - PSYCHIATRIC Hx Anxiety: Yes Hx Depression: Yes - SURGICAL HISTORY Hx Coronary Stent: No - ANESTHESIA Hx Anesthesia: Yes Hx Anesthesia Reactions: No Hx Malignant Hyperthermia: No Meds Allergies/Adverse Reactions: Allergies Allergy/AdvReac Type Severity Reaction Status Date / Time sulfamethoxazole Allergy RASH Verified 02/12/18 09:51 [From ] trimethoprim [From ] Allergy RASH Verified 02/12/18 09:51 Physical Exam - Constitutional Appears: No Acute Distress - Head Exam Head Exam: NORMAL INSPECTION - Eye Exam Eye Exam: Normal appearance - ENT Exam ENT Exam: Mucous Membranes Moist - Respiratory Exam Respiratory Exam: Rhonchi (diffuse b/l), NORMAL BREATHING PATTERN - Cardiovascular Exam Cardiovascular Exam: REGULAR RHYTHM, +S1, +S2 - GI/Abdominal Exam GI & Abdominal Exam: Soft. absent: Tenderness - Extremities Exam Extremities exam: Negative for: calf tenderness, pedal edema Additional comments: left arm av fistula. Bruit heard - Neurological Exam Neurological exam: Alert, CN II-XII Intact, Oriented x3 - Skin Skin Exam: Normal Color, Warm Results - Vital Signs Recent Vital Signs: Last Vital Signs Temp 98.4 F 03/29/18 16:11 Pulse 86 03/29/18 19:45 Resp 16 03/29/18 19:45 BP 115/52 L 03/29/18 19:45 Pulse Ox 95 03/29/18 19:45 - Labs Result Diagrams: 03/29/18 17:05 03/29/18 17:05 Labs: Laboratory Results - last 24 hr 03/29/18 03/29/18 03/29/18 17:05 17:05 18:45 WBC 4.7 L RBC 2.86 L Hgb 9.7 L Hct 29.5 L MCV 102.9 H MCH 33.8 H MCHC 32.8 L RDW 18.5 H Plt Count 124 L D MPV 8.1 Neut % (Auto) 54.2 Lymph % (Auto) 29.9 [place] % (Auto) 12.2 H Eos % (Auto) 2.7 Baso % (Auto) 1.0 Neut # (Auto) 2.5 Lymph # (Auto) 1.4 [place] # (Auto) 0.6 Eos # (Auto) 0.1 Baso # (Auto) 0.0 PT 12.1 INR 1.1 APTT 26.4 Sodium 140 Potassium 4.8 Chloride 97 L Carbon Dioxide 30 Anion Gap 18 BUN 25 H Creatinine 3.5 H Est GFR ( Amer) 21 Est GFR (Non-Af Amer) 18 Random Glucose 89 Calcium 8.6 Total Bilirubin 0.7 AST 26 ALT 30 Alkaline Phosphatase 55 Troponin I 0.0180 NT-Pro-B Natriuret Pep 58565 H Total Protein 7.2 Albumin 3.8 Globulin 3.3 Albumin/Globulin Ratio 1.1 Assessment & Plan - Assessment and Plan (Free Text) Assessment: Assessment & Plan (1) Chest pain Assessment and Plan: 68 year old male with PMH of ESRD on HD TTHS, HTN, COPD, 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 Last echo 10/16/17: LV EF WNL, borderline dilated LV, severe Aortic regurgitation, severe mitral regurgitation, mild tricuspid regurgitation. Cardiac cath 10/17/17 -admitted to [facility], serial troponins - First tropinin indeterminate - EKG: PVC's and anterolateral ST inversion new compared to old EKG - Cardio consulted - Heparin Drip ordered - Has 60-70% stenosis of a small Ramus branch of LAD (otherwise mild lesions detected) On Cath which was preformed on previous visit - Echo shows normal LVEF with severe MR and AR. - BEV: 5 (2) ESRD (end stage renal disease) Assessment and Plan: On HD T//Mon, Patient had dialysis today -nephrology-Dr. Sandoval Consulted (3) COPD (chronic obstructive pulmonary disease) Assessment and Plan: Duonebs PRN, no acute shortness of breath or O2 desaturation. Saturating at 98% on room air - Chest X Ray: small left sided effusion C/W advair (4) Left sided pleural effusion most likely secondary to ESRD -Chest X Ray: small left sided effusion - Patient had dialysis today - Has preserved EF on last echo - BNP today 41,200. Saturating at 98% on room air. No pedal edema - Blood pressure on lower end. Will continue to monitor (5) Hypertension Assessment and Plan: well controlled, resume home medications Status: Chronic (5) DVT prophylaxis Assessment and Plan: -On Heparin drip currently Status: Acute
[2018-03-29 23:00] VITALS: BMI 22.1
[2018-03-29] MEDS: Fluticasone-Salmeterol 500-50mcg Diskus INH SCH (23:47)
[2018-03-30 02:20] LABS: INR 1.1 (0.9-1.2); PARTIAL THROMBOPLASTIN TIME 35.6 Seconds (25.6-37.1); PROTHROMBIN TIME 12.4 Seconds (9.8-13.1)
--- NOTE | 2018-03-30 07:15 | CARD ---
APPROVED REPORT EKG Measurement Heart [id number] ND [id number] <Conclusion> Sinus rhythm with occasional premature ventricular complexes Possible Left atrial enlargement Septal infarct, age undetermined T wave abnormality, consider anterolateral ischemia Prolonged QT Abnormal ECG
--- NOTE | 2018-03-30 07:18 | CP.PCM.PN ---
Subjective - Date & Time of Evaluation Date of Evaluation: 03/30/18 Time of Evaluation: 08:05 - Subjective Subjective: Patient seen and examined this morning. Reports productive cough, dyspnea and intermittent left sided chest pain with exertion for 2 weeks. Denies any chest pain since last night. Denies nausea, vomiting, headache, dizziness, fever, chills, diarrhea, constipation or complaints. Pt is tolerating PO intake. Has regular BM and voiding. Objective - Vital Signs/Intake and Output Vital Signs (last 24 hours): Temp Pulse Resp BP Pulse Ox 97.6 F 89 18 137/61 95 03/30/18 04:46 03/30/18 04:46 03/30/18 04:46 03/30/18 04:46 03/30/18 04:46 Intake and Output: 03/30/18 03/30/18 06:59 18:59 Intake Total 0 Balance 0 - Medications Medications: Current Medications Albuterol/Ipratropium (Duoneb 3 Mg/0.5 Mg (3 Ml) Ud) 3 ml INH RQ6 PRN PRN Reason: Shortness of Breath Aspirin (Aspirin Chewable) 81 mg PO DAILY [facility] Atorvastatin Calcium (Lipitor) 20 mg PO DAILY [facility] Citalopram Hydrobromide (Celexa) 20 mg PO DAILY [facility] Clopidogrel Bisulfate (Plavix) 75 mg PO DAILY [facility] Famotidine (Pepcid) 20 mg PO BID [facility] Guaifenesin/Dextromethorphan (Mucinex-Dm 600-30 Mg) 1 tab PO BID PRN PRN Reason: Cough Heparin Sodium/Dextrose (Heparin 25,000 Units/250ml In D5w) 25,000 units in 250 mls @ 8 mls/hr IV .Q24H [facility] PRN Reason: Protocol Last Titration: 03/30/18 02:45 Dose: 9 mls/hr Metoprolol Tartrate (Lopressor) 12.5 mg PO Q12 [facility] Last Admin: 03/29/18 23:46 Dose: 12.5 mg Nitroglycerin (Nitro-Bid 2% Oint) 1 ea TOP Q6 PRN PRN Reason: chest pain Fluticasone/Salmeterol (Advair Diskus 500/50) 1 puff INH Q12 [facility] Last Admin: 03/29/18 23:47 Dose: 1 puff Sevelamer HCl (Renagel) 1,600 mg PO TID [facility] - Labs Labs: 03/29/18 17:05 03/29/18 17:05 PT 12.4 Seconds (9.8-13.1) 03/30/18 01:26 INR 1.1 (0.9-1.2) 03/30/18 01:26 APTT 35.6 Seconds (25.6-37.1) D 03/30/18 01:26 - Constitutional Appears: Non-toxic, No Acute Distress - Head Exam Head Exam: NORMAL INSPECTION - Eye Exam Eye Exam: EOMI, Normal appearance - ENT Exam ENT Exam: Mucous Membranes Moist, Normal Oropharynx - Respiratory Exam Respiratory Exam: absent: Accessory Muscle Use, Decreased Breath Sounds, Wheezes , Respiratory Distress Additional comments: Mild rhonchi in B/L lower lung field - Cardiovascular Exam Cardiovascular Exam: REGULAR RHYTHM, RRR, +S1, +S2. absent: Murmur - GI/Abdominal Exam GI & Abdominal Exam: Soft, Normal Bowel Sounds. absent: Tenderness - Extremities Exam Extremities Exam: Normal Inspection. 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 - Cardiac cath 10/17/17: has 60-70% stenosis of a small Ramus branch of LAD ( otherwise mild lesions detected) - Troponin x 3 neg - EKG: PVC's and anterolateral ST inversion new compared to old EKG - Cardio consulted - Continue Heparin Drip - Echo shows normal LVEF with severe MR and AR. - BEV: 5 (2) COPD (chronic obstructive pulmonary disease) -no acute shortness of breath or O2 desaturation. Saturating at 97% on room air -Chest X Ray: small left sided effusion -Start Duonebs TID -C/w advair (3) ESRD (end stage renal disease) -On HD T//Mon -Nephrology-Dr. Sandoval consult appreciated (4) Left sided pleural effusion most likely secondary to ESRD -Chest X Ray: small left sided effusion - Has preserved EF on last echo - ProBNP on admission is 41,200. Saturating at 98% on room air. No pedal edema - Blood pressure on lower end. Will continue to monitor (5) Hypertension -well controlled, -resume home medications (6) Severe aortic regurgitation and Mitral regurgitation -Pt was evaluated at [facility] for valve replacement -F/U outpatient (7) DVT prophylaxis -On Heparin drip currently (8) Code Status -Full code
[2018-03-30] MEDS: Fluticasone-Salmeterol 500-50mcg Diskus INH SCH ×2 (08:51→21:03)
[2018-03-30 09:06] LABS: BASO # 0.1 K/uL (0.0-0.2); BASO % 0.9 % (0.0-2.0); EOS # 0.2 K/uL (0.0-0.7); EOS % 3.9 % (0.0-4.0); HEMOGLOBIN 10.6 g/dL (12.0-18.0); LYMPH # 1.4 K/uL (1.0-4.3); LYMPH % 26.4 % (20.0-40.0); MEAN CELL VOLUME 102.8 fl (80.0-94.0); MEAN CORPUSCULAR HEMOGLOBIN 33.4 pg (27.0-31.0); MEAN CORPUSCULAR HGB CONC 32.5 g/dL (33.0-37.0); MEAN PLATELET VOLUME 8.2 fl (7.2-11.7); MONO # 0.5 K/uL (0.0-0.8); MONO % 8.7 % (0.0-10.0); NEUT # 3.3 K/uL (1.8-7.0); NEUT % 60.1 % (50.0-75.0); NRBC % 0.1 % (0.0-0.0); RBC 3.16 Mil/uL (4.40-5.90); RED CELL DISTRIBUTION WIDTH 18.7 % (11.5-14.5); WHITE BLOOD COUNT 5.4 K/uL (4.8-10.8)
[2018-03-30] MEDS: Albuterol-Ipratrop 3 mg / 0.5 (3 ml) UD INH SCH ×3 (09:11→19:17)
[2018-03-30 09:21] LABS: ALB/GLOB RATIO 1.2 (1.0-2.1); CALCIUM 8.7 mg/dL (8.4-10.2)
--- NOTE | 2018-03-30 12:40 | CP.PCM.CON ---
History of Present Illness - History of Present Illness History of Present Illness: This patient however is 68 years of age male known to me with an decision renal disease on maintenance hemodialysis TTS. He came to the emergency room complaining of chest pain. Patient did completed his hemodialysis yesterday as outpatient at the dialysis center. Patient has multitude on numerous of admission in this hospital regarding his kidney disease and he was treated previously with Cytoxan and steroids among other things. 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 Describes the pain as a sharp/pressure type of pain which has been occuring for 2 months on the left side of his chest and decreases when he takes his nitrate for about 20 min, however then pain reoccurs. He has been using 6-7 sublingual nitro doses a day. He has also been having a productive cough for the last week without any blood. Cough started one month ago and he states has been getting worse . Denies any fever or chills. - Patient had a cath on 10/22/18 at that time it was recommended to go with medical management. Cath showed that he had 60-70% stenosis of a small Ramus branch of LAD (otherwise mild lesions detected) Echo shows normal LVEF with severe MR and AR. Dr. Price had advised patient to go for valve replacement. Patient was refered to [facility] to see cardiothorasic surgery for valve replacement: Patient states they were very rude to him and did not help him. 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 Medications: As per med rec Allergies: TMP/SMX Social: occasional smoker, no etoh use Surgical : AV fistula left arm Family hx denies No advanced directives Review of Systems - Constitutional Constitutional: absent: Anorexia, Chills, Fever - EENT Eyes: As Per HPI Nose/Mouth/Throat: As Per HPI - Cardiovascular Cardiovascular: Chest Pain, Dyspnea on Exertion. absent: Edema, Leg Ulcers, Palpitations - Respiratory Respiratory: Dyspnea on Exertion. absent: Hemoptysis - Gastrointestinal Gastrointestinal: absent: Abdominal Pain, Coffee Ground Emesis, Diarrhea, Vomiting - Genitourinary Genitourinary: absent: Nocturia - Musculoskeletal Musculoskeletal: absent: Abnormal Gait, Arthralgias, Atrophy, Back Pain, Numbness - Integumentary Integumentary: absent: Acne, Alopecia - Psychiatric Psychiatric: As Per HPI - Endocrine Endocrine: Fatigue - Hematologic/Lymphatic Hematologic: absent: Easy Bleeding Past Patient History - Infectious Disease Hx of Infectious Diseases: None - Past Medical History & Family History Past Medical History?: Yes - Past Social History Smoking Status: Former Smoker - CARDIAC Hx Congestive Heart Failure: Yes Hx Hypertension: Yes - PULMONARY Hx Chronic Obstructive Pulmonary Disease (COPD): Yes Hx Pneumonia: Yes - NEUROLOGICAL Hx Seizures: Yes - HEENT Hx HEENT Problems: No - RENAL Hx Chronic Kidney Disease: Yes - ENDOCRINE/METABOLIC Hx Endocrine Disorders: No - HEMATOLOGICAL/ONCOLOGICAL Hx Anemia: Yes Hx Human Immunodeficiency Virus (HIV): No - INTEGUMENTARY Hx Dermatological Problems: No - MUSCULOSKELETAL/RHEUMATOLOGICAL Hx Arthritis: Yes - GASTROINTESTINAL Hx Gastrointestinal Disorders: Yes Hx Hemorrhoids: Yes - GENITOURINARY/GYNECOLOGICAL Hx Genitourinary Disorders: No - PSYCHIATRIC Hx Anxiety: Yes Hx Depression: Yes - SURGICAL HISTORY Hx Coronary Stent: No - ANESTHESIA Hx Anesthesia: Yes Hx Anesthesia Reactions: No Hx Malignant Hyperthermia: No Meds Allergies/Adverse Reactions: Allergies Allergy/AdvReac Type Severity Reaction Status Date / Time sulfamethoxazole Allergy RASH Verified 02/12/18 09:51 [From ] trimethoprim [From ] Allergy RASH Verified 02/12/18 09:51 - Medications Medications: Current Medications Albuterol/Ipratropium (Duoneb 3 Mg/0.5 Mg (3 Ml) Ud) 3 ml INH RTID [facility] Last Admin: 03/30/18 09:11 Dose: 3 ml Aspirin (Aspirin Chewable) 81 mg PO DAILY [facility] Last Admin: 03/30/18 08:51 Dose: 81 mg Atorvastatin Calcium (Lipitor) 20 mg PO DAILY [facility] Last Admin: 03/30/18 08:54 Dose: 20 mg Citalopram Hydrobromide (Celexa) 20 mg PO DAILY [facility] Last Admin: 03/30/18 08:54 Dose: 20 mg Clopidogrel Bisulfate (Plavix) 75 mg PO DAILY [facility] Last Admin: 03/30/18 08:54 Dose: 75 mg Famotidine (Pepcid) 20 mg PO BID [facility] Last Admin: 03/30/18 08:55 Dose: 20 mg Guaifenesin/Dextromethorphan (Mucinex-Dm 600-30 Mg) 1 tab PO BID PRN PRN Reason: Cough Heparin Sodium/Dextrose (Heparin 25,000 Units/250ml In D5w) 25,000 units in 250 mls @ 8 mls/hr IV .Q24H [facility] PRN Reason: Protocol Last Titration: 03/30/18 02:45 Dose: 9 mls/hr Metoprolol Tartrate (Lopressor) 12.5 mg PO Q12 [facility] Last Admin: 03/30/18 08:54 Dose: 12.5 mg Nitroglycerin (Nitro-Bid 2% Oint) 1 ea TOP Q6 PRN PRN Reason: chest pain Fluticasone/Salmeterol (Advair Diskus 500/50) 1 puff INH Q12 [facility] Last Admin: 03/30/18 08:51 Dose: 1 puff Sevelamer HCl (Renagel) 1,600 mg PO TID [facility] Last Admin: 03/30/18 12:20 Dose: 1,600 mg Physical Exam - Constitutional Appears: No Acute Distress - ENT Exam ENT Exam: Mucous Membranes Moist - Neck Exam Neck exam: Negative for: Lymphadenopathy - Respiratory Exam Respiratory Exam: absent: Chest Wall Tenderness, NORMAL BREATHING PATTERN - Cardiovascular Exam Cardiovascular Exam: REGULAR RHYTHM, RRR. absent: Gallop, JVD, Rubs - GI/Abdominal Exam GI & Abdominal Exam: absent: Guarding, Organomegaly - Extremities Exam Extremities exam: Negative for: calf tenderness - Back Exam Back exam: absent: CVA tenderness (L), CVA tenderness (R) - Neurological Exam Neurological exam: Alert - Psychiatric Exam Psychiatric exam: Normal Affect Results - Vital Signs Recent Vital Signs: Last Vital Signs Temp 98.4 F 03/30/18 11:47 Pulse 67 03/30/18 11:47 Resp 18 03/30/18 11:47 BP 121/49 L 03/30/18 11:47 Pulse Ox 97 03/30/18 11:47 - Labs Result Diagrams: 03/30/18 08:45 03/30/18 08:45 Labs: Laboratory Results - last 24 hr 03/29/18 03/29/18 03/29/18 17:05 17:05 18:45 WBC 4.7 L RBC 2.86 L Hgb 9.7 L Hct 29.5 L MCV 102.9 H MCH 33.8 H MCHC 32.8 L RDW 18.5 H Plt Count 124 L D MPV 8.1 Neut % (Auto) 54.2 Lymph % (Auto) 29.9 Laurel % (Auto) 12.2 H Eos % (Auto) 2.7 Baso % (Auto) 1.0 Neut # (Auto) 2.5 Lymph # (Auto) 1.4 Laurel # (Auto) 0.6 Eos # (Auto) 0.1 Baso # (Auto) 0.0 PT 12.1 INR 1.1 APTT 26.4 Sodium 140 Potassium 4.8 Chloride 97 L Carbon Dioxide 30 Anion Gap 18 BUN 25 H Creatinine 3.5 H Est GFR ( Amer) 21 Est GFR (Non-Af Amer) 18 Random Glucose 89 Calcium 8.6 Total Bilirubin 0.7 AST 26 ALT 30 Alkaline Phosphatase 55 Troponin I 0.0180 NT-Pro-B Natriuret Pep 55246 H Total Protein 7.2 Albumin 3.8 Globulin 3.3 Albumin/Globulin Ratio 1.1 03/30/18 03/30/18 03/30/18 01:26 01:26 08:45 WBC 5.4 RBC 3.16 L Hgb 10.6 L Hct 32.5 L MCV 102.8 H MCH 33.4 H MCHC 32.5 L RDW 18.7 H Plt Count 130 MPV 8.2 Neut % (Auto) 60.1 Lymph % (Auto) 26.4 Laurel % (Auto) 8.7 Eos % (Auto) 3.9 Baso % (Auto) 0.9 Neut # (Auto) 3.3 Lymph # (Auto) 1.4 Laurel # (Auto) 0.5 Eos # (Auto) 0.2 Baso # (Auto) 0.1 PT 12.4 INR 1.1 APTT 35.6 D Sodium Potassium Chloride Carbon Dioxide Anion Gap BUN Creatinine Est GFR ( Amer) Est GFR (Non-Af Amer) Random Glucose Calcium Total Bilirubin AST ALT Alkaline Phosphatase Troponin I 0.0270 NT-Pro-B Natriuret Pep Total Protein Albumin Globulin Albumin/Globulin Ratio 03/30/18 03/30/18 03/30/18 08:45 08:45 08:45 WBC RBC Hgb Hct MCV MCH MCHC RDW Plt Count MPV Neut % (Auto) Lymph % (Auto) Laurel % (Auto) Eos % (Auto) Baso % (Auto) Neut # (Auto) Lymph # (Auto) Laurel # (Auto) Eos # (Auto) Baso # (Auto) PT INR APTT 42.5 H D Sodium 140 Potassium 5.2 H Chloride 98 Carbon Dioxide 25 Anion Gap 22 H BUN 35 H Creatinine 5.2 H Est GFR ( Amer) 13 Est GFR (Non-Af Amer) 11 Random Glucose 131 H Calcium 8.7 Total Bilirubin 0.7 AST 18 ALT 28 Alkaline Phosphatase 65 Troponin I 0.0230 NT-Pro-B Natriuret Pep 84800 H Total Protein 7.4 Albumin 4.0 Globulin 3.3 Albumin/Globulin Ratio 1.2 Assessment & Plan - Assessment and Plan (Free Text) Assessment: ESRD on HD TTHS, HTN, COPD, 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 Last echo 10/16/17: LV EF WNL, borderline dilated LV, severe Aortic regurgitation, severe mitral regurgitation, mild tricuspid regurgitation. Cardiac cath 10/17/17 hyperphosphatemia continue phosphorus binder Secondary hyperparathyroidism continue calcitriol and Sensipar Schedule for hemodialysis for tomorrow. Anemia continue EPO
[2018-03-30] MEDS ORDERED: Albuterol-Ipratrop 3 mg / 0.5 (3 ml) UD INH ONE (16:40)
[2018-03-30] MEDS: guaiFENesin-DM 600-30 mg ER Tab PO PRN (17:07)
[2018-03-30] MEDS ORDERED: Heparin 25,000units in D5W 25,000 UNITS/250 ML BAG IV SCH (19:45)
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
[2018-03-31] MEDS ORDERED: Albuterol-Ipratrop 3 mg / 0.5 (3 ml) UD INH STA (02:32)
[2018-03-31] MEDS: Albuterol-Ipratrop 3 mg / 0.5 (3 ml) UD INH SCH ×3 (07:26→18:59)
[2018-03-31] MEDS: Fluticasone-Salmeterol 500-50mcg Diskus INH SCH ×2 (10:26→20:31)
--- NOTE | 2018-03-31 10:59 | CARD ---
APPROVED REPORT EKG Measurement Heart [id number] <Conclusion> Normal sinus rhythm Possible Left atrial enlargement Septal infarct, age undetermined T wave abnormality, consider anterolateral ischemia Prolonged QT Abnormal ECG
--- NOTE | 2018-03-31 11:29 | CP.PCM.PN ---
Subjective - Date & Time of Evaluation Date of Evaluation: 03/31/18 Time of Evaluation: 08:29 - Subjective Subjective: Patient seen and examined at bedside. No acute events overnight. Patient states he feels well overall but complains of sob at rest. Patient has noted increased coughing/sputum. Not using O2 supplementation. Patient states occurs mostly at night laying down. State duoneb treatments provide relief. Denies chest pain, palpitations. No changes in bowel habits. Tolerating PO well. Objective - Vital Signs/Intake and Output Vital Signs (last 24 hours): Temp Pulse Resp BP Pulse Ox 98.1 F 83 18 122/60 93 L 03/31/18 08:00 03/31/18 10:27 03/31/18 08:00 03/31/18 10:27 03/31/18 08:00 Intake and Output: 03/31/18 03/31/18 06:59 18:59 Intake Total 90 Balance 90 - Medications Medications: Current Medications Albuterol/Ipratropium (Duoneb 3 Mg/0.5 Mg (3 Ml) Ud) 3 ml INH RTID [facility] Last Admin: 03/31/18 07:26 Dose: 3 ml Aspirin (Aspirin Chewable) 81 mg PO DAILY [facility] Last Admin: 03/31/18 10:26 Dose: 81 mg Atorvastatin Calcium (Lipitor) 20 mg PO DAILY [facility] Last Admin: 03/31/18 10:27 Dose: 20 mg Cinacalcet (Sensipar) 30 mg PO DAILY [facility] Last Admin: 03/31/18 10:28 Dose: 30 mg Citalopram Hydrobromide (Celexa) 20 mg PO DAILY [facility] Last Admin: 03/31/18 10:27 Dose: 20 mg Clopidogrel Bisulfate (Plavix) 75 mg PO DAILY [facility] Last Admin: 03/31/18 10:28 Dose: 75 mg Epoetin José Manuel (Procrit) 4,000 unit IV TTS [facility] Famotidine (Pepcid) 20 mg PO BID [facility] Last Admin: 03/31/18 10:28 Dose: 20 mg Furosemide (Lasix) 20 mg PO ONCE ONE Stop: 04/01/18 11:19 Guaifenesin/Dextromethorphan (Mucinex-Dm 600-30 Mg) 1 tab PO BID PRN PRN Reason: Cough Last Admin: 03/30/18 17:07 Dose: 1 tab Heparin Sodium/Dextrose (Heparin 25,000 Units/250ml In D5w) 25,000 units in 250 mls @ 11 mls/hr IV .[id number] [facility] PRN Reason: Protocol Last Titration: 03/31/18 06:01 Dose: 12 mls/hr Metoprolol Tartrate (Lopressor) 12.5 mg PO Q12 [facility] Last Admin: 03/31/18 10:27 Dose: 12.5 mg Nitroglycerin (Nitro-Bid 2% Oint) 1 ea TOP Q6 PRN PRN Reason: chest pain Prednisone (Prednisone Tab) 40 mg PO DAILY [facility] Stop: 04/05/18 11:31 Fluticasone/Salmeterol (Advair Diskus 500/50) 1 puff INH Q12 [facility] Last Admin: 03/31/18 10:26 Dose: 1 puff Sevelamer HCl (Renagel) 1,600 mg PO TID [facility] Last Admin: 03/31/18 10:28 Dose: 1,600 mg - Labs Labs: 03/30/18 08:45 03/30/18 08:45 PT 12.4 Seconds (9.8-13.1) 03/30/18 01:26 INR 1.1 (0.9-1.2) 03/30/18 01:26 APTT 43.6 Seconds (25.6-37.1) H D 03/31/18 04:00 - Constitutional Appears: Well, Non-toxic, No Acute Distress - Head Exam Head Exam: ATRAUMATIC, NORMAL INSPECTION, NORMOCEPHALIC - Eye Exam Eye Exam: Normal appearance - Neck Exam Neck Exam: Normal Inspection - Respiratory Exam Respiratory Exam: Decreased Breath Sounds (left lower lobe), Rales (right lower lobe), NORMAL BREATHING PATTERN - Cardiovascular Exam Cardiovascular Exam: REGULAR RHYTHM, +S1, +S2, Murmur (systolic) - GI/Abdominal Exam GI & Abdominal Exam: Soft, Normal Bowel Sounds. absent: Tenderness - Extremities Exam Extremities Exam: Normal Inspection. 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 Plan: (1) Chest pain - Improved, not present at this time - ProBNP on admission is 41,200. Saturating at 98% on room air. No pedal edema, however due to orthopnea, and PE findings, will trial 1 dose of lasix 20mg and re-eval - Last echo 10/16/17: LV EF 55%, borderline dilated LV, severe Aortic regurgitation, severe mitral regurgitation, mild tricuspid regurgitation. - Cardiac cath 10/17/17: has 60-70% stenosis of a small Ramus branch of LAD ( otherwise mild lesions detected) - Troponin x 3 neg - EKG: PVC's and anterolateral ST inversion new compared to old EKG - Cardio consulted, appreciate recommendations - Continue medications including Heparin Drip, plan for Cath this week after eval by psych (2) COPD (chronic obstructive pulmonary disease) with mild exacerbation -no apparent respiratory distress or O2 desaturation. Saturating at 97% on room air -Chest X Ray: small left sided effusion -Will repeat CXR -c/w Duonebs TID -C/w advair -will start prednisone 40mg PO daily (3) ESRD (end stage renal disease) -On HD T//Mon -Nephrology-Dr. Sandoval consult appreciated (4) Left sided pleural effusion most likely secondary to ESRD - Chest X Ray: small left sided effusion - Has preserved EF on last echo - ProBNP on admission is 41,200. Saturating at 98% on room air. No pedal edema - Blood pressure on lower end. Will continue to monitor (5) Hypertension - well controlled, - c/w home medications (6) Severe aortic regurgitation and Mitral regurgitation - Pt was evaluated at [facility] for valve replacement - F/U outpatient (7) DVT prophylaxis -On Heparin drip currently (8) Code Status -Full code
--- NOTE | 2018-03-31 12:13 | RAD ---
HISTORY: COMPARISON: 03/29/2018. TECHNIQUE: Chest PA and lateral FINDINGS: LINES AND TUBES: None. LUNG AND PLEURA: The lungs are well inflated. There is moderate pulmonary venous congestion. There is a small left pleural effusion. No pneumothorax. HEART AND MEDIASTINUM: The heart is not enlarged. The hilar and mediastinal contours are within normal limits. SKELETAL STRUCTURES: The bony structures are within normal limits for the patient's age. VISUALIZED UPPER ABDOMEN: Normal. OTHER FINDINGS: None. IMPRESSION: Moderate pulmonary venous congestion and small left pleural effusion.
--- NOTE | 2018-03-31 13:08 | CP.PCM.CON ---
History of Present Illness - History of Present Illness History of Present Illness: consult requested for evaluation for mood disorder 68 year old male with PMH of ESRD on HD HTN, COPD, s, stable angina presents to ED with chest pain. pt has been noted by staff to be angry , irritable, and hard to redirect on evaluation pt noted initially to be angry then became more interactive as interview progressed, stated feeling down and irritable as he has no support form his brothers, only family member is 37 ys old daughter who occasionaly talks to him, lives by himself, has no friends, pt reported he gets angry with god because of his illness as he is a good person and does not deserve it pt denied changes in appetite, reported decreased sleep because he has to be sitting because of his COPD, denied ANY CURENT SUICIDAL IDEATION, STATING HE IS [employer] AND HIS ONLY RELIEF IS TO GO TO [employer], DENIED MANIC OR PSYCHOTIC SYMPTOMS , DENIED SUBSTANCE USE Past Patient History - Infectious Disease Hx of Infectious Diseases: None - Past Medical History & Family History Past Medical History?: Yes - Past Social History Smoking Status: Former Smoker - CARDIAC Hx Congestive Heart Failure: Yes Hx Hypertension: Yes - PULMONARY Hx Chronic Obstructive Pulmonary Disease (COPD): Yes Hx Pneumonia: Yes - NEUROLOGICAL Hx Seizures: Yes - HEENT Hx HEENT Problems: No - RENAL Hx Chronic Kidney Disease: Yes - ENDOCRINE/METABOLIC Hx Endocrine Disorders: No - HEMATOLOGICAL/ONCOLOGICAL Hx Anemia: Yes Hx Human Immunodeficiency Virus (HIV): No - INTEGUMENTARY Hx Dermatological Problems: No - MUSCULOSKELETAL/RHEUMATOLOGICAL Hx Arthritis: Yes - GASTROINTESTINAL Hx Gastrointestinal Disorders: Yes Hx Hemorrhoids: Yes - GENITOURINARY/GYNECOLOGICAL Hx Genitourinary Disorders: No - PSYCHIATRIC Hx Anxiety: Yes Hx Depression: Yes - SURGICAL HISTORY Hx Coronary Stent: No - ANESTHESIA Hx Anesthesia: Yes Hx Anesthesia Reactions: No Hx Malignant Hyperthermia: No Meds Allergies/Adverse Reactions: Allergies Allergy/AdvReac Type Severity Reaction Status Date / Time sulfamethoxazole Allergy RASH Verified 02/12/18 09:51 [From ] trimethoprim [From ] Allergy RASH Verified 02/12/18 09:51 - Medications Medications: Current Medications Albuterol/Ipratropium (Duoneb 3 Mg/0.5 Mg (3 Ml) Ud) 3 ml INH RTID [facility] Last Admin: 03/31/18 07:26 Dose: 3 ml Aspirin (Aspirin Chewable) 81 mg PO DAILY [facility] Last Admin: 03/31/18 10:26 Dose: 81 mg Atorvastatin Calcium (Lipitor) 20 mg PO DAILY [facility] Last Admin: 03/31/18 10:27 Dose: 20 mg Cinacalcet (Sensipar) 30 mg PO DAILY [facility] Last Admin: 03/31/18 10:28 Dose: 30 mg Citalopram Hydrobromide (Celexa) 20 mg PO DAILY [facility] Last Admin: 03/31/18 10:27 Dose: 20 mg Clopidogrel Bisulfate (Plavix) 75 mg PO DAILY [facility] Last Admin: 03/31/18 10:28 Dose: 75 mg Epoetin José Manuel (Procrit) 4,000 unit IV TTS [facility] Famotidine (Pepcid) 20 mg PO BID [facility] Last Admin: 03/31/18 10:28 Dose: 20 mg Furosemide (Lasix) 20 mg PO ONCE ONE Stop: 04/01/18 11:19 Guaifenesin/Dextromethorphan (Mucinex-Dm 600-30 Mg) 1 tab PO BID PRN PRN Reason: Cough Last Admin: 03/30/18 17:07 Dose: 1 tab Heparin Sodium/Dextrose (Heparin 25,000 Units/250ml In D5w) 25,000 units in 250 mls @ 11 mls/hr IV .[id number] [facility] PRN Reason: Protocol Last Titration: 03/31/18 06:01 Dose: 12 mls/hr Metoprolol Tartrate (Lopressor) 12.5 mg PO Q12 [facility] Last Admin: 03/31/18 10:27 Dose: 12.5 mg Nitroglycerin (Nitro-Bid 2% Oint) 1 ea TOP Q6 PRN PRN Reason: chest pain Prednisone (Prednisone Tab) 40 mg PO DAILY [facility] Stop: 04/05/18 11:31 Last Admin: 03/31/18 12:47 Dose: 40 mg Fluticasone/Salmeterol (Advair Diskus 500/50) 1 puff INH Q12 [facility] Last Admin: 03/31/18 10:26 Dose: 1 puff Sevelamer HCl (Renagel) 1,600 mg PO TID [facility] Last Admin: 03/31/18 12:47 Dose: 1,600 mg Physical Exam - Psychiatric Exam Additional comments: PT seen sitting on hair , cooperative, speech loud and overproductive, reported mood upset affect appropriate, thought form circumstantial deied any current suicidal or omicidal ideation, denied perceptual disturbances alert awake ox3 Results - Vital Signs Recent Vital Signs: Last Vital Signs Temp 98.1 F 03/31/18 08:00 Pulse 83 03/31/18 10:27 Resp 18 03/31/18 08:00 BP 122/60 03/31/18 10:27 Pulse Ox 93 L 03/31/18 08:00 - Labs Result Diagrams: 03/30/18 08:45 03/30/18 08:45 Labs: Laboratory Results - last 24 hr 03/30/18 03/30/18 03/31/18 13:01 18:15 04:00 APTT 37.3 H D 43.6 H D Phosphorus 5.3 H Assessment & Plan - Assessment and Plan (Free Text) Assessment: 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
[2018-03-31] MEDS: Epoetin Alfa 4000 UNIT/ML Inj IV SCH (13:16)
[2018-03-31] MEDS ORDERED: Heparin 25,000units in D5W 25,000 UNITS/250 ML BAG IV SCH (13:50)
[2018-03-31] MEDS: Nitroglycerin 2% Ointment Foilpak UD TOP PRN (18:37)
--- NOTE | 2018-03-31 23:02 | CP.PCM.PN ---
Subjective - Date & Time of Evaluation Date of Evaluation: 03/31/18 Time of Evaluation: 11:00 - Subjective Subjective: renal follow up note no new complaints vitals reviewed heent normal op moist no jvd [id number] no resp distress abd soft skin normal ao times 3 cooperative A&P: esrd/htn/anca vasculitis/anemia/sec hyperpth hd tts cotninue per schedule lytes reviewed anemia stable epo with hd chest pain per primary team continue binders and sensipar Objective - Vital Signs/Intake and Output Vital Signs (last 24 hours): Temp Pulse Resp BP Pulse Ox 97.9 F 80 16 126/53 L 95 03/31/18 20:02 03/31/18 21:00 03/31/18 20:02 03/31/18 20:02 03/31/18 20:02 Intake and Output: 03/31/18 04/01/18 18:59 06:59 Intake Total 600 Output Total 1700 Balance -1100 - Medications Medications: Current Medications Albuterol/Ipratropium (Duoneb 3 Mg/0.5 Mg (3 Ml) Ud) 3 ml INH RTID [facility] Last Admin: 03/31/18 18:59 Dose: 3 ml Aspirin (Aspirin Chewable) 81 mg PO DAILY [facility] Last Admin: 03/31/18 10:26 Dose: 81 mg Atorvastatin Calcium (Lipitor) 20 mg PO DAILY [facility] Last Admin: 03/31/18 10:27 Dose: 20 mg Cinacalcet (Sensipar) 30 mg PO DAILY [facility] Last Admin: 03/31/18 10:28 Dose: 30 mg Citalopram Hydrobromide (Celexa) 20 mg PO DAILY [facility] Last Admin: 03/31/18 10:27 Dose: 20 mg Clopidogrel Bisulfate (Plavix) 75 mg PO DAILY [facility] Last Admin: 03/31/18 10:28 Dose: 75 mg Epoetin José Manuel (Procrit) 4,000 unit IV TTS [facility] Last Admin: 03/31/18 13:16 Dose: 4,000 unit Famotidine (Pepcid) 20 mg PO BID [facility] Last Admin: 03/31/18 17:20 Dose: 20 mg Furosemide (Lasix) 20 mg PO ONCE ONE Stop: 04/01/18 11:19 Guaifenesin/Dextromethorphan (Mucinex-Dm 600-30 Mg) 1 tab PO BID PRN PRN Reason: Cough Last Admin: 03/30/18 17:07 Dose: 1 tab Heparin Sodium (Porcine) (Heparin) 5,000 units SC Q8 [facility] PRN Reason: Protocol Last Admin: 03/31/18 17:19 Dose: 5,000 units Metoprolol Tartrate (Lopressor) 12.5 mg PO Q12 [facility] Last Admin: 03/31/18 10:27 Dose: 12.5 mg Nitroglycerin (Nitro-Bid 2% Oint) 1 ea TOP Q6 PRN PRN Reason: chest pain Last Admin: 03/31/18 18:37 Dose: 1 ea Prednisone (Prednisone Tab) 40 mg PO DAILY [facility] Stop: 04/05/18 11:31 Last Admin: 03/31/18 12:47 Dose: 40 mg Fluticasone/Salmeterol (Advair Diskus 500/50) 1 puff INH Q12 [facility] Last Admin: 03/31/18 20:31 Dose: 1 puff Sevelamer HCl (Renagel) 1,600 mg PO TID [facility] Last Admin: 03/31/18 17:20 Dose: 1,600 mg - Labs Labs: 03/30/18 08:45 03/30/18 08:45 PT 12.4 Seconds (9.8-13.1) 03/30/18 01:26 INR 1.1 (0.9-1.2) 03/30/18 01:26 APTT 32.1 Seconds (25.6-37.1) D 03/31/18 12:01
[2018-04-01 06:55] LABS: HEMOGLOBIN 9.7 g/dL (12.0-18.0); MEAN CELL VOLUME 102.3 fl (80.0-94.0); MEAN CORPUSCULAR HEMOGLOBIN 33.2 pg (27.0-31.0); MEAN CORPUSCULAR HGB CONC 32.5 g/dL (33.0-37.0); RBC 2.91 Mil/uL (4.40-5.90); RED CELL DISTRIBUTION WIDTH 18.4 % (11.5-14.5); WHITE BLOOD COUNT 3.9 K/uL (4.8-10.8)
[2018-04-01 07:03] LABS: CALCIUM 8.1 mg/dL (8.4-10.2)
[2018-04-01] MEDS: Albuterol-Ipratrop 3 mg / 0.5 (3 ml) UD INH SCH ×3 (07:47→16:13)
--- NOTE | 2018-04-01 08:16 | CP.PCM.PN ---
Subjective - Date & Time of Evaluation Date of Evaluation: 04/01/18 Time of Evaluation: 08:45 - Subjective Subjective: Patient seen and examined at bedside this morning. Overnight events reviewed. Pt reports productive cough has improved. States he still feels shortness of breath when he walks to bathroom and has intermittent chest pain which responds mildly to nitroglycerin patch. Breathing comfortably in RA. Denies fever, chills, palpitations, headache, dizziness or focal weakness. No changes in bowel habits. Tolerating PO well. Objective - Vital Signs/Intake and Output Vital Signs (last 24 hours): Temp Pulse Resp BP Pulse Ox 98.3 F 78 18 112/49 L 97 04/01/18 08:00 04/01/18 08:00 04/01/18 08:00 04/01/18 08:00 04/01/18 08:00 - Medications Medications: Current Medications Albuterol/Ipratropium (Duoneb 3 Mg/0.5 Mg (3 Ml) Ud) 3 ml INH RTID [facility] Last Admin: 04/01/18 07:47 Dose: 3 ml Aspirin (Aspirin Chewable) 81 mg PO DAILY [facility] Last Admin: 03/31/18 10:26 Dose: 81 mg Atorvastatin Calcium (Lipitor) 20 mg PO DAILY [facility] Last Admin: 03/31/18 10:27 Dose: 20 mg Cinacalcet (Sensipar) 30 mg PO DAILY [facility] Last Admin: 03/31/18 10:28 Dose: 30 mg Citalopram Hydrobromide (Celexa) 20 mg PO DAILY [facility] Last Admin: 03/31/18 10:27 Dose: 20 mg Clopidogrel Bisulfate (Plavix) 75 mg PO DAILY [facility] Last Admin: 03/31/18 10:28 Dose: 75 mg Epoetin José Manuel (Procrit) 4,000 unit IV TTS [facility] Last Admin: 03/31/18 13:16 Dose: 4,000 unit Famotidine (Pepcid) 20 mg PO BID [facility] Last Admin: 03/31/18 17:20 Dose: 20 mg Furosemide (Lasix) 20 mg PO ONCE ONE Stop: 04/01/18 11:19 Guaifenesin/Dextromethorphan (Mucinex-Dm 600-30 Mg) 1 tab PO BID PRN PRN Reason: Cough Last Admin: 03/30/18 17:07 Dose: 1 tab Heparin Sodium (Porcine) (Heparin) 5,000 units SC Q8 [facility] PRN Reason: Protocol Last Admin: 04/01/18 01:00 Dose: 5,000 units Metoprolol Tartrate (Lopressor) 12.5 mg PO Q12 [facility] Last Admin: 03/31/18 10:27 Dose: 12.5 mg Nitroglycerin (Nitro-Bid 2% Oint) 1 ea TOP Q6 PRN PRN Reason: chest pain Last Admin: 03/31/18 18:37 Dose: 1 ea Prednisone (Prednisone Tab) 40 mg PO DAILY [facility] Stop: 04/05/18 11:31 Last Admin: 03/31/18 12:47 Dose: 40 mg Fluticasone/Salmeterol (Advair Diskus 500/50) 1 puff INH Q12 [facility] Last Admin: 03/31/18 20:31 Dose: 1 puff Sevelamer HCl (Renagel) 1,600 mg PO TID [facility] Last Admin: 03/31/18 17:20 Dose: 1,600 mg - Labs Labs: 04/01/18 06:15 04/01/18 06:15 PT 12.4 Seconds (9.8-13.1) 03/30/18 01:26 INR 1.1 (0.9-1.2) 03/30/18 01:26 APTT 32.1 Seconds (25.6-37.1) D 03/31/18 12:01 - Constitutional Appears: Non-toxic, No Acute Distress - Head Exam Head Exam: NORMAL INSPECTION - Eye Exam Eye Exam: EOMI, Normal appearance - ENT Exam ENT Exam: Mucous Membranes Moist, Normal Oropharynx - Neck Exam Neck Exam: Normal Inspection - Respiratory Exam Respiratory Exam: NORMAL BREATHING PATTERN. absent: Accessory Muscle Use, Rhonchi, Respiratory Distress Additional comments: Mild crackles on right lower lobe. No wheezing or rhonchi. - Cardiovascular Exam Cardiovascular Exam: REGULAR RHYTHM, RRR, +S1, +S2. absent: Murmur - GI/Abdominal Exam GI & Abdominal Exam: Soft, Normal Bowel Sounds. absent: Tenderness - Extremities Exam Extremities Exam: Normal Inspection. 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 Plan: (1) Chest pain - Improved, not present at this time - ProBNP on admission is 41,200. Saturating at 98% on room air. No pedal edema, however due to orthopnea, and PE findings, will trial 1 dose of lasix 20mg and re-eval - Last echo 10/16/17: LV EF 55%, borderline dilated LV, severe Aortic regurgitation, severe mitral regurgitation, mild tricuspid regurgitation. - Cardiac cath 10/17/17: has 60-70% stenosis of a small Ramus branch of LAD ( otherwise mild lesions detected) - Troponin x 3 neg - EKG: PVC's and anterolateral ST inversion new compared to old EKG - Cardio consulted, appreciate recommendations - D/C Heparin Drip - Start heparin 5000 SC Q8 - Plan for Cath on Monday04/03/[address] Miles (2) COPD (chronic obstructive pulmonary disease) with mild exacerbation -no apparent respiratory distress or O2 desaturation. Saturating at 97% on room air -Chest X Ray: small left sided effusion -Repeat CXR on 03/31/18: Moderate pulmonary venous congestion and small left pleural effusion. -c/w Duonebs q8 -C/w advair -Continue prednisone 40mg PO daily (day 2) (3) ESRD (end stage renal disease) -On HD //Mon -s/p dialysis yesterdays -Nephrology-Dr. Sandoval consult appreciated (4) Left sided pleural effusion most likely secondary to ESRD - Chest X Ray: small left sided effusion - Has preserved EF on last echo - ProBNP on admission is 41,200. Saturating at 98% on room air. No pedal edema - Blood pressure on lower end. 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
[2018-04-01] MEDS: Fluticasone-Salmeterol 500-50mcg Diskus INH SCH ×2 (08:39→21:18)
[2018-04-01] MEDS: guaiFENesin-DM 600-30 mg ER Tab PO PRN (08:41)
[2018-04-01] MEDS: Nitroglycerin 2% Ointment Foilpak UD TOP PRN (13:02)
--- NOTE | 2018-04-01 19:14 | PN ---
DATE: 04/01/2018 SUBJECTIVE: The patient complains of chest pain. Denies any shortness of breath. PHYSICAL EXAMINATION VITAL SIGNS: Blood pressure 122/43, heart rate 81, temperature 98.2, and respirations 18. HEENT: Pale conjunctivae. CHEST: Bilateral rhonchi. HEART: S1 and S2 regular. EXTREMITIES: No edema. LABORATORY DATA: SMA-7; sodium 137, potassium 4.3, chloride 96, CO2 26, glucose 114, BUN 28, creatinine 4.6. PTT 32.1. Today's hemoglobin and hematocrit 9.7 and 29.8, white count 3.9, platelet count 118,000. ASSESSMENT: 1. Chest pain, myocardial infarction is ruled out. 2. 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 3. End-stage renal disease on hemodialysis. 4. History of psych disorder. RECOMMENDATIONS: Continue current aspirin 81 mg once a day, subcutaneous heparin 5000 units twice a day, Lopressor 12.5 mg twice a day, Lipitor 20 mg once a day, Plavix 75 mg once a day. Case was discussed with the medical team and I was told that the patient is cleared by psych treatment for the procedure and the patient will be scheduled for next week at [facility]. Hi Miles MD
[2018-04-01 20:31] LABS: SQUAMOUS EPITHIAL 2 /hpf (0-5); URINE BACTERIA RARE (<OCC); URINE BILIRUBIN NEGATIVE (NEGATIVE); URINE BLOOD LARGE (NEGATIVE); URINE CLARITY CLEAR (Clear); URINE COLOR YELLOW (YELLOW); URINE GLUCOSE (UA) 50 mg/dL (Normal); URINE LEUKOCYTE ESTERASE NEGATIVE Leu/uL (Negative); URINE PROTEIN 100 mg/dL (NEGATIVE); URINE UROBILINOGEN 0.2-1.0 mg/dL (0.2-1.0)
[2018-04-02] MEDS: Albuterol-Ipratrop 3 mg / 0.5 (3 ml) UD INH SCH ×3 (00:14→15:09)
[2018-04-02] MEDS ORDERED: Albuterol-Ipratrop 3 mg / 0.5 (3 ml) UD INH PRN (03:46)
[2018-04-02 08:10] LABS: HEPATITIS B SURFACE AG Negative (NEGATIVE)
[2018-04-02 08:15] LABS: HEPATITIS B CORE AB NEGATIVE (NEGATIVE)
[2018-04-02 08:28] LABS: HEPATITIS C ANTIBODY NEGATIVE (NEGATIVE)
[2018-04-02] MEDS: Fluticasone-Salmeterol 500-50mcg Diskus INH SCH ×2 (10:03→21:06)
[2018-04-02] MEDS: guaiFENesin-DM 600-30 mg ER Tab PO PRN (10:04)
[2018-04-02] MEDS ORDERED: Sodium Chloride 3% for Inhalation 4 ML VIAL.NEB IH PRN (14:29)
--- NOTE | 2018-04-02 14:58 | CP.PCM.PN ---
Subjective - Date & Time of Evaluation Date of Evaluation: 04/02/18 Time of Evaluation: 08:00 - Subjective Subjective: Patient seen and examined at bedside this morning. Overnight events reviewed. Patient states orthopnea and dyspnea on exertion worsened overnight. Cough with increased sputum. Using O2 NC. Denies fever, chills, palpitations, headache, dizziness or chest pain. No changes in bowel habits. Tolerating PO well. Patient states hematuria resolved. Denies dysuria, abdominal pain, or polyuria. Objective - Vital Signs/Intake and Output Vital Signs (last 24 hours): Temp Pulse Resp BP Pulse Ox 97.7 F 96 H 18 146/61 98 04/02/18 12:01 04/02/18 12:01 04/02/18 12:01 04/02/18 12:01 04/02/18 12:01 Intake and Output: 04/02/18 04/02/18 06:59 18:59 Intake Total 500 Balance 500 - Medications Medications: Current Medications Albuterol/Ipratropium (Duoneb 3 Mg/0.5 Mg (3 Ml) Ud) 3 ml INH RQ8 [facility] Last Admin: 04/02/18 07:11 Dose: 3 ml Albuterol/Ipratropium (Duoneb 3 Mg/0.5 Mg (3 Ml) Ud) 3 ml INH RQ4 PRN PRN Reason: Shortness of Breath Aspirin (Aspirin Chewable) 81 mg PO DAILY [facility] Last Admin: 04/02/18 10:04 Dose: 81 mg Atorvastatin Calcium (Lipitor) 20 mg PO DAILY [facility] Last Admin: 04/02/18 10:06 Dose: 20 mg Cinacalcet (Sensipar) 30 mg PO DAILY [facility] Last Admin: 04/02/18 10:06 Dose: 30 mg Clopidogrel Bisulfate (Plavix) 75 mg PO DAILY [facility] Last Admin: 04/02/18 10:05 Dose: 75 mg Epoetin José Manuel (Procrit) 4,000 unit IV TTS [facility] Last Admin: 03/31/18 13:16 Dose: 4,000 unit Famotidine (Pepcid) 20 mg PO BID [facility] Last Admin: 04/02/18 10:05 Dose: 20 mg Furosemide (Lasix) 20 mg IVP BID [facility] Guaifenesin/Dextromethorphan (Mucinex-Dm 600-30 Mg) 1 tab PO BID PRN PRN Reason: Cough Last Admin: 04/02/18 10:04 Dose: 1 tab Heparin Sodium (Porcine) (Heparin) 5,000 units SC Q8 [facility] PRN Reason: Protocol Last Admin: 04/02/18 10:08 Dose: Not Given Metoprolol Tartrate (Lopressor) 12.5 mg PO Q12 [facility] Last Admin: 04/02/18 10:09 Dose: Not Given Nitroglycerin (Nitrostat Sl Tab) 0.4 mg SL Q5M PRN PRN Reason: chest pain Last Admin: 04/01/18 14:41 Dose: 0.4 mg Prednisone (Prednisone Tab) 40 mg PO DAILY [facility] Stop: 04/05/18 11:31 Last Admin: 04/02/18 10:05 Dose: 40 mg Fluticasone/Salmeterol (Advair Diskus 500/50) 1 puff INH Q12 [facility] Last Admin: 04/02/18 10:03 Dose: 1 puff Sertraline HCl (Zoloft) 25 mg PO HS [facility] Last Admin: 04/01/18 21:19 Dose: 25 mg Sevelamer HCl (Renagel) 1,600 mg PO TID [facility] Last Admin: 04/02/18 13:03 Dose: 1,600 mg - Labs Labs: 04/01/18 06:15 04/01/18 06:15 PT 12.4 Seconds (9.8-13.1) 03/30/18 01:26 INR 1.1 (0.9-1.2) 03/30/18 01:26 APTT 32.1 Seconds (25.6-37.1) D 03/31/18 12:01 - Constitutional Appears: Non-toxic, No Acute Distress - Head Exam Head Exam: ATRAUMATIC, NORMAL INSPECTION, NORMOCEPHALIC - Eye Exam Eye Exam: Normal appearance - Neck Exam Neck Exam: Normal Inspection - Respiratory Exam Respiratory Exam: Decreased Breath Sounds (left lower lobe), Rales (right lower lobe), NORMAL BREATHING PATTERN. absent: Rhonchi, Wheezes - Cardiovascular Exam Cardiovascular Exam: REGULAR RHYTHM, +S1, +S2, Murmur - GI/Abdominal Exam GI & Abdominal Exam: Soft, Normal Bowel Sounds. absent: Tenderness - Extremities Exam Extremities Exam: Normal Inspection. 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 Plan: (1) Chest pain - Improved, not present at this time - ProBNP on admission is 41,200. No pedal edema, however due to orthopnea, and PE findings, will trial 1 dose of lasix 20mg and re-eval - Last echo 10/16/17: LV EF 55%, borderline dilated LV, severe Aortic regurgitation, severe mitral regurgitation, mild tricuspid regurgitation. - Cardiac cath 10/17/17: has 60-70% stenosis of a small Ramus branch of LAD ( otherwise mild lesions detected) - Troponin x 3 neg - EKG: PVC's and anterolateral ST inversion new compared to old EKG - Cardio consulted, appreciate recommendations, plan for cath possibly Monday (2) COPD (chronic obstructive pulmonary disease) with mild exacerbation -No wheezing/rhonchi noted on exam, sob probably secondary to fluid in lungs -Chest X Ray: small left sided effusion -Repeat CXR on 03/31/18: Moderate pulmonary venous congestion and small left pleural effusion. -c/w Duonebs q8 -C/w advair -Continue prednisone 40mg PO daily (day 3) -will obtain procalcitonin/sputum culture to eval need for IV abx, likely worsening symptoms due to fluid in lungs (3) Severe aortic regurgitation and Mitral regurgitation - Pending evaluation at [facility] for valve replacement - due to worsening orthopnea/monzon, start 20mg IV Lasix BID, spoke with ophthalmology technician, will obtain echo (4) ESRD (end stage renal disease) -On HD T//Mon -Nephrology-Dr. Sandoval consult appreciated (5) Left sided pleural effusion most likely secondary to ESRD - Chest X Ray: small left sided effusion - Has preserved EF on last echo - ProBNP on admission is 41,200. 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
--- NOTE | 2018-04-02 15:37 | PN ---
DATE: 04/02/2018 SUBJECTIVE: The patient still experiencing chest discomfort. PHYSICAL EXAMINATION: VITAL SIGNS: Blood pressure of 146/61, heart rate of 96, temperature of 97.7, and respirations of 18. HEENT: Pale conjunctivae. CHEST: Absent breath sounds over the left base. HEART: S1 and S2 regular. ABDOMEN: Soft. EXTREMITIES: No edema. LABORATORY DATA: No lab works posted for today. DIAGNOSTIC DATA: Chest x-ray PA and lateral was consistent with moderate left pleural effusion as well as prominent central vasculature. ASSESSMENT: 1. Steady chest pain unlikely anginal in type, rule out pleuritic chest pain especially in the view of left pleural effusion noted on the chest x-ray, rule out also pericarditis or pericardial effusion. The patient also has a history of pulmonary tuberculosis that was recent in the past, rule out reactivation of pulmonary tuberculosis. 2. 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 3. End-stage renal disease on hemodialysis. 4. Anemia. RECOMMENDATIONS: Case was discussed with medical device sales. Continue current aspirin, subcutaneous heparin, IV Lasix, Lipitor, Lopressor and Plavix. I did request echocardiography study as well as chest CT scan without contrast. Hi Miles MD
[2018-04-03] MEDS: Albuterol-Ipratrop 3 mg / 0.5 (3 ml) UD INH SCH ×3 (00:21→15:37)
[2018-04-03 05:37] LABS: HEMOGLOBIN 9.2 g/dL (12.0-18.0); MEAN CELL VOLUME 104.3 fl (80.0-94.0); MEAN CORPUSCULAR HEMOGLOBIN 33.4 pg (27.0-31.0); MEAN CORPUSCULAR HGB CONC 32.1 g/dL (33.0-37.0); RBC 2.74 Mil/uL (4.40-5.90); RED CELL DISTRIBUTION WIDTH 18.8 % (11.5-14.5)
[2018-04-03 06:23] LABS: CALCIUM 7.3 mg/dL (8.4-10.2)
--- NOTE | 2018-04-03 08:28 | CP.PCM.PN ---
Subjective - Date & Time of Evaluation Date of Evaluation: 04/03/18 Time of Evaluation: 08:05 - Subjective Subjective: Patient seen and examined at bedside this morning. No acute overnight events. Still reports orthopnea and dyspnea on exertion overnight. Cough with increased sputum. Saturating well on RA. Denies fever, chills, palpitations, headache, dizziness or chest pain. No changes in bowel habits. Tolerating PO well. Patient states hematuria resolved. Denies dysuria, abdominal pain, or polyuria. Objective - Vital Signs/Intake and Output Vital Signs (last 24 hours): Temp Pulse Resp BP Pulse Ox 97.8 F 86 18 133/54 L 96 04/03/18 08:02 04/03/18 08:02 04/03/18 08:02 04/03/18 08:02 04/03/18 08:02 - Medications Medications: Current Medications Albuterol/Ipratropium (Duoneb 3 Mg/0.5 Mg (3 Ml) Ud) 3 ml INH RQ8 [facility] Last Admin: 04/03/18 07:29 Dose: 3 ml Albuterol/Ipratropium (Duoneb 3 Mg/0.5 Mg (3 Ml) Ud) 3 ml INH RQ4 PRN PRN Reason: Shortness of Breath Aspirin (Aspirin Chewable) 81 mg PO DAILY [facility] Last Admin: 04/02/18 10:04 Dose: 81 mg Atorvastatin Calcium (Lipitor) 20 mg PO DAILY [facility] Last Admin: 04/02/18 10:06 Dose: 20 mg Cinacalcet (Sensipar) 30 mg PO DAILY [facility] Last Admin: 04/02/18 10:06 Dose: 30 mg Clopidogrel Bisulfate (Plavix) 75 mg PO DAILY [facility] Last Admin: 04/02/18 10:05 Dose: 75 mg Epoetin José Manuel (Procrit) 4,000 unit IV TTS [facility] Last Admin: 03/31/18 13:16 Dose: 4,000 unit Famotidine (Pepcid) 20 mg PO BID [facility] Last Admin: 04/02/18 17:17 Dose: 20 mg Furosemide (Lasix) 20 mg IVP BID [facility] Last Admin: 04/02/18 17:16 Dose: 20 mg Guaifenesin/Dextromethorphan (Mucinex-Dm 600-30 Mg) 1 tab PO BID PRN PRN Reason: Cough Last Admin: 04/02/18 10:04 Dose: 1 tab Heparin Sodium (Porcine) (Heparin) 5,000 units SC Q8 [facility] PRN Reason: Protocol Last Admin: 04/03/18 01:14 Dose: 5,000 units Metoprolol Tartrate (Lopressor) 12.5 mg PO Q12 [facility] Last Admin: 04/02/18 21:07 Dose: 12.5 mg Nitroglycerin (Nitrostat Sl Tab) 0.4 mg SL Q5M PRN PRN Reason: chest pain Last Admin: 04/01/18 14:41 Dose: 0.4 mg Prednisone (Prednisone Tab) 40 mg PO DAILY [facility] Stop: 04/05/18 11:31 Last Admin: 04/02/18 10:05 Dose: 40 mg Fluticasone/Salmeterol (Advair Diskus 500/50) 1 puff INH Q12 [facility] Last Admin: 04/02/18 21:06 Dose: 1 puff Sertraline HCl (Zoloft) 25 mg PO HS [facility] Last Admin: 04/02/18 21:07 Dose: 25 mg Sevelamer HCl (Renagel) 1,600 mg PO TID [facility] Last Admin: 04/02/18 17:16 Dose: 1,600 mg - Labs Labs: 04/03/18 04:20 04/03/18 04:20 PT 12.4 Seconds (9.8-13.1) 03/30/18 01:26 INR 1.1 (0.9-1.2) 03/30/18 01:26 APTT 32.1 Seconds (25.6-37.1) D 03/31/18 12:01 - Additional Findings Additional findings: - Constitutional Appears: Non-toxic, No Acute Distress - Head Exam Head Exam: ATRAUMATIC, NORMAL INSPECTION, NORMOCEPHALIC - Eye Exam Eye Exam: Normal appearance - Neck Exam Neck Exam: Normal Inspection - Respiratory Exam Respiratory Exam: Decreased Breath Sounds (left lower lobe), diffuse rhonchi B/L , NORMAL BREATHING PATTERN. absent: Wheezes - Cardiovascular Exam Cardiovascular Exam: REGULAR RHYTHM, +S1, +S2, Murmur - GI/Abdominal Exam GI & Abdominal Exam: Soft, Normal Bowel Sounds. absent: Tenderness - Extremities Exam Extremities Exam: Normal Inspection. 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 Plan: (1) Chest pain - Improved, not present at this time - ProBNP on admission is 41,200. No pedal edema. - Last echo 10/16/17: LV EF 55%, borderline dilated LV, severe Aortic regurgitation, severe mitral regurgitation, mild tricuspid regurgitation. - Cardiac cath 10/17/17: has 60-70% stenosis of a small Ramus branch of LAD ( otherwise mild lesions detected) - Troponin x 3 neg - EKG: PVC's and anterolateral ST inversion new compared to old EKG - Cardio consulted, appreciate recommendations, plan for cath possibly on Monday - F/U echo and chest CT (2) Dyspnea on extertion: -Multifactorial likley secondaary to COPD exacerbation and CHF -Continue 20 mg IV Lasix BID -f/u echo (3) COPD (chronic obstructive pulmonary disease) with mild exacerbation -No wheezing/rhonchi noted on exam, sob probably secondary to fluid in lungs -Chest X Ray: small left sided effusion -Repeat CXR on 03/31/18: Moderate pulmonary venous congestion and small left pleural effusion. -c/w Duonebs q8 -C/w advair -Continue prednisone 40mg PO daily (day 4) -will obtain procalcitonin/sputum culture to eval need for IV abx, likely worsening symptoms due to fluid in lungs (4) Severe aortic regurgitation and Mitral regurgitation - Pending evaluation at [facility] for valve replacement (5) ESRD (end stage renal disease) -On HD T//Mon -Nephrology-Dr. Sandoval consult appreciated (6) Left sided pleural effusion most likely secondary to ESRD - Chest X Ray: small left sided effusion - Has preserved EF on last echo - ProBNP on admission is 41,200. 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
[2018-04-03] MEDS: Fluticasone-Salmeterol 500-50mcg Diskus INH SCH ×2 (09:23→21:41)
[2018-04-03] MEDS: guaiFENesin-DM 600-30 mg ER Tab PO PRN (09:23)
--- NOTE | 2018-04-03 09:23 | PN ---
DATE: 03/31/2018 SUBJECTIVE: The patient is currently undergoing hemodialysis. He denies any chest pain. PHYSICAL EXAMINATION: VITAL SIGNS: Blood pressure 122/60, heart rate 83, temperature 98.1, and respirations 18. HEENT: Normocephalic. CARDIOPULMONARY: Heart S1 and S2, regular. LUNGS: Bilateral rhonchi. EXTREMITIES: No edema. LABORATORY DATA: Today's PTT 32.1. ASSESSMENT: 1. Chest pain, myocardial infarction was ruled out. Three sets of troponins are negative. 2. Known borderline disease of the . 3. End-stage renal disease, on hemodialysis. RECOMMENDATIONS: Continue aspirin 81 mg once a day. Continue intravenous heparin and subcutaneous heparin 5000 Units every 8 hours. Continue Lopressor 12.5 mg once a day, Plavix 75 mg once a day. I did discuss the case with , both medical and psychiatry evaluation prior to coronary intervention to assure the fact that the patient will undergo the procedure without any that may interrupt the procedure, or may be after the procedure and it will ensure the patient's compliance with his antiplatelet for at least one month after the procedure. Otherwise, the procedure may benefit. Hi Miles MD
--- NOTE | 2018-04-03 11:57 | CT ---
PROCEDURE: CT Chest without contrast HISTORY: effusion COMPARISON: 03/31/2018 TECHNIQUE: Contiguous axial images were obtained through the chest without intravenous contrast enhancement. Sagittal and coronal reconstructions were performed. Radiation dose (DLP): 364.75 mGy-cm. This CT exam was performed using one or more of the following dose reduction techniques: Automated exposure control, adjustment of the mA and/or kV according to patient size, and/or use of iterative reconstruction technique. FINDINGS: LUNGS: Compressive atelectasis in both lower lobes from the pleural effusions. Multifocal infiltrates affecting the right upper lobe and the left upper lobe. These are mild and alveolar in type. MEDIASTINUM: Unremarkable thoracic aorta. No aneurysm. Normal sized heart. Main pulmonary artery unremarkable. No vascular congestion. Mildly prominent mediastinal/ azygos lymph nodes. PLEURA: Bilateral pleural effusions, small-moderate. Left pleural effusion larger than right. BONES: No fracture. No destructive lesion. UPPER ABDOMEN: Grossly unremarkable. OTHER FINDINGS: None. IMPRESSION: Bilateral pleural effusions left larger than right. Underlying compressive atelectasis primarily affecting both lower lobes. Multifocal primarily upper lobe alveolar infiltrates likely infectious/ inflammatory. Pulmonary edema is a less likely consideration.
--- NOTE | 2018-04-03 12:06 | CARD ---
APPROVED REPORT EXAM: Two-dimensional and M-mode echocardiogram with Doppler and color Doppler. Other Information Quality : GoodRhythm : NSR INDICATION Dyspnea 2D DIMENSIONS IVSd1.35 (0.7-1.1cm)LVDd6.67 (3.9-5.9cm) LVOT Diameter2.33 (1.8-2.4cm)PWd0.90 (0.7-1.1cm) IVSs1.50 (0.8-1.2cm)LVDs5.07 (2.5-4.0cm) FS (%) 24.0 %PWs1.44 (0.8-1.2cm) M-Mode DIMENSIONS Left Atrium (MM)4.21 (2.5-4.0cm)IVSd1.21 (0.7-1.1cm) Aortic Root3.06 (2.2-3.7cm)LVDd7.35 (4.0-5.6cm) Aortic Cusp Exc.1.53 (1.5-2.0cm)PWd1.09 (0.7-1.1cm) IVSs1.62 cmFS (%) 36 % LVDs4.68 (2.0-3.8cm)PWs1.94 cm Aortic Valve AI P 1/2 [id number] Mitral Valve MV E Bmasyvpv286.1cm/sMV DECEL [id number] A Gxfchrub06.0cm/s MV MXF53exC/A ratio3.0MVA (PHT)3.81cm2 TDI Lateral E' Peak V10.02cm/sMedial E' Peak V8.47cm/sE/Lateral E'12.8 E/Medial E'15.1 LEFT VENTRICLE The Left Ventricle is severely dilated. There is mild concentric left ventricular hypertrophy. The left ventricular function is normal. The left ventricular ejection fraction is - 60-65%. There is normal LV segmental wall motion. The left ventricular diastolic function is normal. No left ventricle thrombus noted on this study. There is no ventricular septal defect visualized. There is no left ventricular aneurysm. There is no mass noted in the left ventricle. RIGHT VENTRICLE The right ventricle is normal size. There is normal right ventricular wall thickness. The right ventricular systolic function is normal. ATRIA The left atrium is mildly to moderately dilated on the 2D study. There is no thrombus suspected in the left atrium. The right atrium size is normal. The interatrial septum is intact with no evidence for an atrial septal defect. AORTIC VALVE The aortic valve is mildly thickened. There is severe aortic regurgitation. There is no aortic valvular stenosis. MITRAL VALVE The mitral valve is normal in structure. There is no evidence of mitral valve prolapse. There is no mitral valve stenosis. Mitral regurgitation is severe. TRICUSPID VALVE The tricuspid valve is normal in structure. There is moderate tricuspid regurgitation. There is no tricuspid valve prolapse or vegetation. There is no tricuspid valve stenosis. PULMONIC VALVE The pulmonic valve is not well visualized. Color doppler studies of the PV were not performed. GREAT VESSELS The aortic root is normal in size. The IVC was not visualized. PERICARDIAL EFFUSION There is a tiny posterior pericardial effusion. There is a pleural effusion. <Conclusion> The Left Ventricle is severely dilated. There is mild concentric left ventricular hypertrophy. The left ventricular function is normal. The left ventricular ejection fraction is - 60-65%. The left atrium is mildly to moderately dilated on the 2D study. The aortic valve is mildly thickened but not stenotic. The mitral and tricuspid valves are normal. The is severe mitral regurgitation, severe aortic regurgitation and moderate tricuspid regurgitation.
--- NOTE | 2018-04-03 12:10 | CP.PCM.PN ---
Subjective - Date & Time of Evaluation Date of Evaluation: 04/03/18 Time of Evaluation: 12:08 - Subjective Subjective: Patient in bed appears to be comfortable and no significant shortness of breath difficulty breathing and no chest pain this morning Objective - Vital Signs/Intake and Output Vital Signs (last 24 hours): Temp Pulse Resp BP Pulse Ox 97.8 F 86 18 133/54 L 96 04/03/18 08:02 04/03/18 09:25 04/03/18 08:02 04/03/18 09:25 04/03/18 08:02 - Medications Medications: Current Medications Albuterol/Ipratropium (Duoneb 3 Mg/0.5 Mg (3 Ml) Ud) 3 ml INH RQ8 [facility] Last Admin: 04/03/18 07:29 Dose: 3 ml Albuterol/Ipratropium (Duoneb 3 Mg/0.5 Mg (3 Ml) Ud) 3 ml INH RQ4 PRN PRN Reason: Shortness of Breath Aspirin (Aspirin Chewable) 81 mg PO DAILY [facility] Last Admin: 04/03/18 09:23 Dose: 81 mg Atorvastatin Calcium (Lipitor) 20 mg PO DAILY [facility] Last Admin: 04/03/18 09:25 Dose: 20 mg Cinacalcet (Sensipar) 30 mg PO DAILY [facility] Last Admin: 04/03/18 09:24 Dose: 30 mg Clopidogrel Bisulfate (Plavix) 75 mg PO DAILY [facility] Last Admin: 04/03/18 09:25 Dose: 75 mg Epoetin José Manuel (Procrit) 4,000 unit IV TTS [facility] Last Admin: 03/31/18 13:16 Dose: 4,000 unit Famotidine (Pepcid) 20 mg PO BID [facility] Last Admin: 04/03/18 09:24 Dose: 20 mg Furosemide (Lasix) 20 mg IVP BID [facility] Last Admin: 04/03/18 09:28 Dose: Not Given Guaifenesin/Dextromethorphan (Mucinex-Dm 600-30 Mg) 1 tab PO BID PRN PRN Reason: Cough Last Admin: 04/03/18 09:23 Dose: 1 tab Heparin Sodium (Porcine) (Heparin) 5,000 units SC Q8 [facility] PRN Reason: Protocol Last Admin: 04/03/18 01:14 Dose: 5,000 units Metoprolol Tartrate (Lopressor) 12.5 mg PO Q12 [facility] Last Admin: 04/03/18 09:25 Dose: Not Given Nitroglycerin (Nitrostat Sl Tab) 0.4 mg SL Q5M PRN PRN Reason: chest pain Last Admin: 04/01/18 14:41 Dose: 0.4 mg Prednisone (Prednisone Tab) 40 mg PO DAILY [facility] Stop: 04/05/18 11:31 Last Admin: 04/03/18 09:24 Dose: 40 mg Fluticasone/Salmeterol (Advair Diskus 500/50) 1 puff INH Q12 [facility] Last Admin: 04/03/18 09:23 Dose: 1 puff Sertraline HCl (Zoloft) 25 mg PO HS [facility] Last Admin: 04/02/18 21:07 Dose: 25 mg Sevelamer HCl (Renagel) 1,600 mg PO TID [facility] Last Admin: 04/03/18 09:23 Dose: 1,600 mg - Labs Labs: 04/03/18 04:20 04/03/18 04:20 PT 12.4 Seconds (9.8-13.1) 03/30/18 01:26 INR 1.1 (0.9-1.2) 03/30/18 01:26 APTT 32.1 Seconds (25.6-37.1) D 03/31/18 12:01 - Constitutional Appears: No Acute Distress - Eye Exam Eye Exam: Conjunctival injection - ENT Exam ENT Exam: Mucous Membranes Moist - Neck Exam Neck Exam: absent: Lymphadenopathy - Respiratory Exam Respiratory Exam: NORMAL BREATHING PATTERN. absent: Rales - Cardiovascular Exam Cardiovascular Exam: REGULAR RHYTHM. 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 Last echo 10/16/17: LV EF WNL, borderline dilated LV, severe Aortic regurgitation, severe mitral regurgitation, mild tricuspid regurgitation. Cardiac cath 10/17/17 hyperphosphatemia continue phosphorus binder Secondary hyperparathyroidism continue calcitriol and Sensipar Schedule for hemodialysis for tomorrow. Anemia continue EPO patient scheduled for hemodialysis shortly ultrafiltration about 2500 mL to 3000 Status: Acute
[2018-04-03] MEDS ORDERED: Sod Polystyrene Sulf 15 gm/60 ml Susp PO ONE (18:03)
[2018-04-03] MEDS: Epoetin Alfa 4000 UNIT/ML Inj IV SCH (18:32)
[2018-04-04] MEDS: Albuterol-Ipratrop 3 mg / 0.5 (3 ml) UD INH SCH ×4 (00:45→23:34)
[2018-04-04 05:50] LABS: HEMOGLOBIN 9.4 g/dL (12.0-18.0); MEAN CORPUSCULAR HGB CONC 32.7 g/dL (33.0-37.0); RBC 2.75 Mil/uL (4.40-5.90); RED CELL DISTRIBUTION WIDTH 18.6 % (11.5-14.5); WHITE BLOOD COUNT 6.5 K/uL (4.8-10.8)
[2018-04-04 06:01] LABS: PARTIAL THROMBOPLASTIN TIME 27.2 Seconds (25.6-37.1)
[2018-04-04 06:17] LABS: CALCIUM 7.1 mg/dL (8.4-10.2)
[2018-04-04] MEDS: Fluticasone-Salmeterol 500-50mcg Diskus INH SCH ×3 (08:37→23:03)
--- NOTE | 2018-04-04 08:44 | CP.PCM.PN ---
Subjective - Date & Time of Evaluation Date of Evaluation: 04/04/18 Time of Evaluation: 07:45 - Subjective Subjective: Patient seen and examined this morning. Pt did not receive HD yesterday due to shunt not working. Pt will have Shiley catheter placed today and will have right sided thoracentesis. No acute overnight events. Reports orthopnea and dyspnea on exertion improved. Saturating well on RA. Denies fever, chills, palpitations, headache, dizziness or chest pain. No changes in bowel habits. Tolerating PO well. Patient states hematuria resolved. Denies dysuria, abdominal pain, or polyuria. Objective - Vital Signs/Intake and Output Vital Signs (last 24 hours): Temp Pulse Resp BP Pulse Ox 97.6 F 91 H 18 140/72 95 04/04/18 07:49 04/04/18 07:49 04/04/18 07:49 04/04/18 07:49 04/04/18 07:49 - Medications Medications: Current Medications Albuterol/Ipratropium (Duoneb 3 Mg/0.5 Mg (3 Ml) Ud) 3 ml INH RQ8 [facility] Last Admin: 04/04/18 08:14 Dose: 3 ml Albuterol/Ipratropium (Duoneb 3 Mg/0.5 Mg (3 Ml) Ud) 3 ml INH RQ4 PRN PRN Reason: Shortness of Breath Aspirin (Aspirin Chewable) 81 mg PO DAILY [facility] Last Admin: 04/04/18 08:37 Dose: Not Given Atorvastatin Calcium (Lipitor) 20 mg PO DAILY [facility] Last Admin: 04/04/18 08:38 Dose: Not Given Cinacalcet (Sensipar) 30 mg PO DAILY [facility] Last Admin: 04/04/18 08:38 Dose: Not Given Clopidogrel Bisulfate (Plavix) 75 mg PO DAILY [facility] Last Admin: 04/04/18 08:38 Dose: Not Given Epoetin José Manuel (Procrit) 4,000 unit IV TTS [facility] Last Admin: 04/03/18 18:32 Dose: Not Given Famotidine (Pepcid) 20 mg PO BID [facility] Last Admin: 04/04/18 08:38 Dose: Not Given Furosemide (Lasix) 20 mg IVP BID [facility] Last Admin: 04/04/18 08:37 Dose: Not Given Guaifenesin/Dextromethorphan (Mucinex-Dm 600-30 Mg) 1 tab PO BID PRN PRN Reason: Cough Last Admin: 04/03/18 09:23 Dose: 1 tab Heparin Sodium (Porcine) (Heparin) 5,000 units SC Q8 [facility] PRN Reason: Protocol Last Admin: 04/03/18 09:45 Dose: 5,000 units Metoprolol Tartrate (Lopressor) 12.5 mg PO Q12 [facility] Last Admin: 04/04/18 08:38 Dose: Not Given Nitroglycerin (Nitrostat Sl Tab) 0.4 mg SL Q5M PRN PRN Reason: chest pain Last Admin: 04/04/18 04:27 Dose: 0.4 mg Prednisone (Prednisone Tab) 40 mg PO DAILY [facility] Stop: 04/05/18 11:31 Last Admin: 04/04/18 08:38 Dose: Not Given Fluticasone/Salmeterol (Advair Diskus 500/50) 1 puff INH Q12 [facility] Last Admin: 04/04/18 08:37 Dose: Not Given Sertraline HCl (Zoloft) 25 mg PO HS [facility] Last Admin: 04/03/18 21:51 Dose: 25 mg Sevelamer HCl (Renagel) 1,600 mg PO TID [facility] Last Admin: 04/04/18 08:38 Dose: Not Given - Labs Labs: 04/04/18 04:25 04/04/18 04:25 PT 11.0 Seconds (9.8-13.1) 04/04/18 04:25 INR 1.0 (0.9-1.2) 04/04/18 04:25 APTT 27.2 Seconds (25.6-37.1) 04/04/18 04:25 - Additional Findings Additional findings: - Constitutional Appears: Non-toxic, No Acute Distress - Head Exam Head Exam: ATRAUMATIC, NORMAL INSPECTION, NORMOCEPHALIC - Eye Exam Eye Exam: Normal appearance - Neck Exam Neck Exam: Normal Inspection - Respiratory Exam Respiratory Exam: Decreased Breath Sounds (left lower lobe), diffuse rhonchi B/L , NORMAL BREATHING PATTERN. absent: Wheezes - Cardiovascular Exam Cardiovascular Exam: REGULAR RHYTHM, +S1, +S2, Murmur - GI/Abdominal Exam GI & Abdominal Exam: Soft, Normal Bowel Sounds. absent: Tenderness - Extremities Exam Extremities Exam: Normal Inspection. 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 Plan: (1) Pleural effusion B/L - Chest X Ray: small left sided effusion - Has preserved EF on last echo - ProBNP on admission is 41,200. No pedal edema - CT of chest: IMPRESSION: Bilateral pleural effusions left larger than right. Underlying compressive atelectasis primarily affecting both lower lobes. Multifocal primarily upper lobe alveolar infiltrates likely infectious/ inflammatory. Pulmonary edema is a less likely consideration. -IR : right sided thoracentesis today (2) Chest pain - Improved, not present at this time - ProBNP on admission is 41,200. No pedal edema. - Last echo 10/16/17: LV EF 55%, borderline dilated LV, severe Aortic regurgitation, severe mitral regurgitation, mild tricuspid regurgitation. - Cardiac cath 10/17/17: has 60-70% stenosis of a small Ramus branch of LAD ( otherwise mild lesions detected) - Troponin x 3 neg - EKG: PVC's and anterolateral ST inversion new compared to old EKG - Echo on 04/03/18: LV is severely dilated. EF 60-65%. Severe mitral regurgitation, severe aortic regurgitation and moderate tricuspid regurgitation. - Cardio consulted, appreciate recommendations, plan for cath in the future. (3) Dyspnea on extertion: -Multifactorial likley secondaary to COPD exacerbation and CHF -Continue 20 mg IV Lasix BID (4) COPD (chronic obstructive pulmonary disease) with mild exacerbation -No wheezing/rhonchi noted on exam, sob probably secondary to fluid in lungs -Chest X Ray: small left sided effusion -Repeat CXR on 03/31/18: Moderate pulmonary venous congestion and small left pleural effusion. -c/w Duonebs q8 -C/w advair -Continue prednisone 40mg PO daily (day 5) (5) Severe aortic regurgitation and Mitral regurgitation - Pending evaluation at [facility] for valve replacement (6) ESRD (end stage renal disease) -Did not get HD yesterday -Likely HD today after placement of Shiley catheter -On HD T//Mon -Nephrology-Dr. 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
[2018-04-04] MEDS ORDERED: Sod Polystyrene Sulf 15 gm/60 ml Susp PO ONE (09:07)
--- NOTE | 2018-04-04 12:49 | CP.PCM.PN ---
Subjective - Date & Time of Evaluation Date of Evaluation: 04/04/18 Time of Evaluation: 11:10 - Subjective Subjective: Patient is out of bed feeling good No nausea no vomiting Vital signs stable Objective - Vital Signs/Intake and Output Vital Signs (last 24 hours): Temp Pulse Resp BP Pulse Ox 97.5 F L 85 18 127/64 95 04/04/18 11:58 04/04/18 11:58 04/04/18 11:58 04/04/18 11:58 04/04/18 11:58 - Medications Medications: Current Medications Albuterol/Ipratropium (Duoneb 3 Mg/0.5 Mg (3 Ml) Ud) 3 ml INH RQ8 [facility] Last Admin: 04/04/18 08:14 Dose: 3 ml Albuterol/Ipratropium (Duoneb 3 Mg/0.5 Mg (3 Ml) Ud) 3 ml INH RQ4 PRN PRN Reason: Shortness of Breath Aspirin (Aspirin Chewable) 81 mg PO DAILY [facility] Last Admin: 04/04/18 09:43 Dose: Not Given Atorvastatin Calcium (Lipitor) 20 mg PO DAILY [facility] Last Admin: 04/04/18 09:31 Dose: 20 mg Cinacalcet (Sensipar) 30 mg PO DAILY [facility] Last Admin: 04/04/18 09:33 Dose: 30 mg Clopidogrel Bisulfate (Plavix) 75 mg PO DAILY [facility] Last Admin: 04/04/18 08:38 Dose: Not Given Epoetin José Manuel (Procrit) 4,000 unit IV TTS [facility] Last Admin: 04/03/18 18:32 Dose: Not Given Famotidine (Pepcid) 20 mg PO BID [facility] Last Admin: 04/04/18 09:29 Dose: 20 mg Furosemide (Lasix) 20 mg IVP BID [facility] Last Admin: 04/04/18 09:35 Dose: 20 mg Guaifenesin/Dextromethorphan (Mucinex-Dm 600-30 Mg) 1 tab PO BID PRN PRN Reason: Cough Last Admin: 04/03/18 09:23 Dose: 1 tab Heparin Sodium (Porcine) (Heparin) 5,000 units SC Q8 [facility] PRN Reason: Protocol Last Admin: 04/03/18 09:45 Dose: 5,000 units Metoprolol Tartrate (Lopressor) 12.5 mg PO Q12 [facility] Last Admin: 04/04/18 09:32 Dose: 12.5 mg Nitroglycerin (Nitrostat Sl Tab) 0.4 mg SL Q5M PRN PRN Reason: chest pain Last Admin: 04/04/18 04:27 Dose: 0.4 mg Prednisone (Prednisone Tab) 40 mg PO DAILY [facility] Stop: 04/05/18 11:31 Last Admin: 04/04/18 09:32 Dose: 40 mg Fluticasone/Salmeterol (Advair Diskus 500/50) 1 puff INH Q12 [facility] Last Admin: 04/04/18 09:29 Dose: 1 puff Sertraline HCl (Zoloft) 25 mg PO HS [facility] Last Admin: 04/03/18 21:51 Dose: 25 mg Sevelamer HCl (Renagel) 1,600 mg PO TID [facility] Last Admin: 04/04/18 09:32 Dose: 1,600 mg - Labs Labs: 04/04/18 04:25 04/04/18 04:25 PT 11.0 Seconds (9.8-13.1) 04/04/18 04:25 INR 1.0 (0.9-1.2) 04/04/18 04:25 APTT 27.2 Seconds (25.6-37.1) 04/04/18 04:25 - Constitutional Appears: No Acute Distress - Eye Exam Eye Exam: Conjunctival injection - ENT Exam ENT Exam: Mucous Membranes Moist - Neck Exam Neck Exam: absent: Lymphadenopathy - Respiratory Exam Respiratory Exam: NORMAL BREATHING PATTERN. absent: Chest Wall Tenderness, Rales - Cardiovascular Exam Cardiovascular Exam: REGULAR RHYTHM. absent: Gallop, JVD, Rubs - GI/Abdominal Exam GI & Abdominal Exam: Soft, Normal Bowel Sounds - Extremities Exam Extremities Exam: absent: Calf Tenderness - Back Exam Back Exam: absent: CVA tenderness (L), CVA tenderness (R) - Neurological Exam Neurological Exam: Alert - Psychiatric Exam Psychiatric exam: Normal Affect - Skin Skin Exam: absent: Cyanosis Assessment and Plan (1) CKD (chronic kidney disease) requiring chronic dialysis Assessment & Plan: Patient developed a new problem yesterday which is clotted shunt on the left upper arm he could not have dialysis although there is a bruit in the distal part of the AV fistula. Patient is going for temporary catheter for now and he is going to be seen by vascular for possible thrombectomy. 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 Last echo 10/16/17: LV EF WNL, borderline dilated LV, severe Aortic regurgitation, severe mitral regurgitation, mild tricuspid regurgitation. Cardiac cath 10/17/17 hyperphosphatemia continue phosphorus binder Secondary hyperparathyroidism continue calcitriol and Sensipar Schedule for hemodialysis for tomorrow. Anemia continue EPO patient scheduled for hemodialysis shortly ultrafiltration about 2500 mL to 3000 Status: Acute
--- NOTE | 2018-04-04 13:00 | CP.PCM.CON ---
History of Present Illness - History of Present Illness History of Present Illness: Vascular Surgery Note for Dr. 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 Patient was scheduled for HD yesterday but his shunt did not work. Patient is also scheduled for right sided thoracentesis today. Denies any acute overnight events. States that shortness of breath with exertion is improved. Denies any recent N/V/F/C/CP/SOB/D. Patient states that he experienced hematuria several days ago but it has since resolved. Medications: As per med rec Allergies: TMP/SMX Social: occasional smoker, no etoh use Surgical : AV fistula left arm Family hx denies Review of Systems - Review of Systems All systems: reviewed and no additional remarkable complaints except Review of Systems: as per HPI Past Patient History - Infectious Disease Hx of Infectious Diseases: None - Past Medical History & Family History Past Medical History?: Yes - Past Social History Smoking Status: Former Smoker - CARDIAC Hx Congestive Heart Failure: Yes Hx Hypertension: Yes - PULMONARY Hx Chronic Obstructive Pulmonary Disease (COPD): Yes Hx Pneumonia: Yes - NEUROLOGICAL Hx Seizures: Yes - HEENT Hx HEENT Problems: No - RENAL Hx Chronic Kidney Disease: Yes - ENDOCRINE/METABOLIC Hx Endocrine Disorders: No - HEMATOLOGICAL/ONCOLOGICAL Hx Anemia: Yes Hx Human Immunodeficiency Virus (HIV): No - INTEGUMENTARY Hx Dermatological Problems: No - MUSCULOSKELETAL/RHEUMATOLOGICAL Hx Arthritis: Yes - GASTROINTESTINAL Hx Gastrointestinal Disorders: Yes Hx Hemorrhoids: Yes - GENITOURINARY/GYNECOLOGICAL Hx Genitourinary Disorders: No - PSYCHIATRIC Hx Anxiety: Yes Hx Depression: Yes - SURGICAL HISTORY Hx Coronary Stent: No - ANESTHESIA Hx Anesthesia: Yes Hx Anesthesia Reactions: No Hx Malignant Hyperthermia: No Meds Allergies/Adverse Reactions: Allergies Allergy/AdvReac Type Severity Reaction Status Date / Time sulfamethoxazole Allergy RASH Verified 02/12/18 09:51 [From ] trimethoprim [From ] Allergy RASH Verified 02/12/18 09:51 - Medications Medications: Current Medications Albuterol/Ipratropium (Duoneb 3 Mg/0.5 Mg (3 Ml) Ud) 3 ml INH RQ8 [facility] Last Admin: 04/04/18 08:14 Dose: 3 ml Albuterol/Ipratropium (Duoneb 3 Mg/0.5 Mg (3 Ml) Ud) 3 ml INH RQ4 PRN PRN Reason: Shortness of Breath Aspirin (Aspirin Chewable) 81 mg PO DAILY [facility] Last Admin: 04/04/18 09:43 Dose: Not Given Atorvastatin Calcium (Lipitor) 20 mg PO DAILY [facility] Last Admin: 04/04/18 09:31 Dose: 20 mg Cinacalcet (Sensipar) 30 mg PO DAILY [facility] Last Admin: 04/04/18 09:33 Dose: 30 mg Clopidogrel Bisulfate (Plavix) 75 mg PO DAILY [facility] Last Admin: 04/04/18 08:38 Dose: Not Given Epoetin José Manuel (Procrit) 4,000 unit IV TTS [facility] Last Admin: 04/03/18 18:32 Dose: Not Given Famotidine (Pepcid) 20 mg PO BID [facility] Last Admin: 04/04/18 09:29 Dose: 20 mg Furosemide (Lasix) 20 mg IVP BID [facility] Last Admin: 04/04/18 09:35 Dose: 20 mg Guaifenesin/Dextromethorphan (Mucinex-Dm 600-30 Mg) 1 tab PO BID PRN PRN Reason: Cough Last Admin: 04/03/18 09:23 Dose: 1 tab Heparin Sodium (Porcine) (Heparin) 5,000 units SC Q8 [facility] PRN Reason: Protocol Last Admin: 04/03/18 09:45 Dose: 5,000 units Metoprolol Tartrate (Lopressor) 12.5 mg PO Q12 [facility] Last Admin: 04/04/18 09:32 Dose: 12.5 mg Nitroglycerin (Nitrostat Sl Tab) 0.4 mg SL Q5M PRN PRN Reason: chest pain Last Admin: 04/04/18 04:27 Dose: 0.4 mg Prednisone (Prednisone Tab) 40 mg PO DAILY [facility] Stop: 04/05/18 11:31 Last Admin: 04/04/18 09:32 Dose: 40 mg Fluticasone/Salmeterol (Advair Diskus 500/50) 1 puff INH Q12 [facility] Last Admin: 04/04/18 09:29 Dose: 1 puff Sertraline HCl (Zoloft) 25 mg PO HS [facility] Last Admin: 04/03/18 21:51 Dose: 25 mg Sevelamer HCl (Renagel) 1,600 mg PO TID [facility] Last Admin: 04/04/18 09:32 Dose: 1,600 mg Physical Exam - Constitutional Appears: Well, Non-toxic, No Acute Distress - Head Exam Head Exam: ATRAUMATIC, NORMOCEPHALIC - Respiratory Exam Respiratory Exam: NORMAL BREATHING PATTERN. absent: Respiratory Distress - Neurological Exam Neurological exam: Alert, Oriented x3 - Psychiatric Exam Psychiatric exam: Normal Affect, Normal Mood Results - Vital Signs Recent Vital Signs: Last Vital Signs Temp 97.5 F L 04/04/18 11:58 Pulse 85 04/04/18 11:58 Resp 18 04/04/18 11:58 BP 127/64 04/04/18 11:58 Pulse Ox 95 04/04/18 11:58 - Labs Result Diagrams: 04/04/18 04:25 04/04/18 04:25 Labs: Laboratory Results - last 24 hr 03/30/18 04/03/18 04/03/18 13:01 12:05 15:11 WBC RBC Hgb Hct MCV MCH MCHC RDW Plt Count PT INR APTT Sodium Potassium Chloride Carbon Dioxide Anion Gap BUN Creatinine Est GFR ( Amer) Est GFR (Non-Af Amer) Random Glucose Calcium Lactate Dehydrogenase 405 Total Protein 6.7 PTH Intact Whole Molec 159 H Ur Random Creatinine 59.1 04/04/18 04/04/18 04/04/18 04:25 04:25 04:25 WBC 6.5 RBC 2.75 L Hgb 9.4 L Hct 28.6 L MCV 104.0 H MCH 34.0 H MCHC 32.7 L RDW 18.6 H Plt Count 163 PT 11.0 INR 1.0 APTT 27.2 Sodium 140 Potassium 5.8 H Chloride 101 Carbon Dioxide 18 L Anion Gap 27 H BUN 82 H Creatinine 8.5 H* Est GFR ( Amer) 8 Est GFR (Non-Af Amer) 6 Random Glucose 86 Calcium 7.1 L Lactate Dehydrogenase Total Protein PTH Intact Whole Molec Ur Random Creatinine Assessment & Plan - Assessment and Plan (Free Text) Assessment: 68M seen before placement of permacath with Dr. Cleveland today Plan: Afebrile, absent leukocytosis Continue med management per medicine Renal diet Permacath placed by Dr. Cleveland today without incident No plan for further surgical procedures at this time Will s/o Please reconsult in future as needed - Date & Time Date: 04/04/18 Time: 13:06
[2018-04-04] MEDS ORDERED: LIDOCAINE 2% 10ML 20 MG/ML VIAL IJ ONE ×2 (13:31→14:09)
[2018-04-04] MEDS ORDERED: Cellulose Hemostat 2X3 Sheet ONE (14:32)
--- NOTE | 2018-04-04 15:08 | PCM.SURG1 ---
Surgeon's Initial Post Op Note - Surgeon's Notes Surgeon: Tavares Simeon MD Mixer Whipped Topping: None Type of Anesthesia: Local Pre-Operative Diagnosis: sob Operative Findings: large right pleural effusion Post-Operative Diagnosis: same Operation Performed: US guided RIGHT thoracentesis Specimen/Specimens Removed: 900 cc serosanguinous fluid removed. sample submitted as requested Estimated Blood Loss: EBL {In ML}: 3 Date of Surgery/Procedure: 04/04/18 Time of Surgery/Procedure: 14:00
--- NOTE | 2018-04-04 15:09 | PCM.SURG1 ---
Surgeon's Initial Post Op Note - Surgeon's Notes Surgeon: Tavares Simeon MD Contact Center Team Lead: None Type of Anesthesia: Local Pre-Operative Diagnosis: ESRD requiring HD Operative Findings: patent right internal jugular vein. 14 [place]ian non- tunnelled HD catheter placed Post-Operative Diagnosis: same Operation Performed: Non-tunnelled HD catheter insertion Specimen/Specimens Removed: n/a Estimated Blood Loss: EBL {In ML}: 10 Date of Surgery/Procedure: 04/04/18 Time of Surgery/Procedure: 14:30
--- NOTE | 2018-04-04 15:55 | US ---
PROCEDURE: ULTRASOUND-GUIDED THORACENTESIS CLINICAL HISTORY: 68-year-old male with symptomatic pleural effusion is referred to Interventional Radiology for ultrasound-guided thoracentesis. COMPARISON: T chest dated 04/03/2018 PROCEDURE: 1. Ultrasound-guided right thoracentesis. PRE-PROCEDURE FINDINGS: 1. Large volume pleural effusion. POST-PROCEDURE FINDINGS: 1. No evidence of post-procedural complication. INTERVENTIONAL RADIOLOGIST: Tavares Simeon M.D. (the attending was present for the entire procedure) ANESTHESIA: None. MEDICATION: Lidocaine 1% for local subcutaneous analgesia. COMPLICATIONS: None. PROCEDURE DESCRIPTION AND FINDINGS: The risks, benefits, alternatives and possible complications of the procedure were fully discussed; all questions were answered and informed consent was obtained. The patient was brought into the interventional suite and a pre-procedure 'time-out' was performed. The patient was placed in the seated position. Preliminary ultrasound images of the right hemithorax demonstrate a large simple appearing pleural effusion. The right hemithorax was prepped and draped in the usual sterile fashion. Maximum sterile barrier precautions were maintained throughout the entire procedure. Following subcutaneous infiltration of lidocaine 1% for local analgesia, under ultrasound guidance, a 5 Polish centesis catheter was advanced into right pleural space with real-time visualization of needle entry. The ultrasound images were permanently recorded and submitted to the PACS. The inner stylet was removed with prompt return of serosanguineous fluid. The catheter was attached to gentle vacuum suction. A total of 900 mL of serosanguineous fluid was aspirated. A sample was sent to the laboratory for analysis. The drainage catheter was then removed. A sterile adhesive bandage was placed over the puncture site. The patient tolerated the procedure well without immediate post-procedure complications. IMPRESSION: SUCCESSFUL ULTRASOUND-GUIDED RIGHT DIAGNOSTIC AND THERAPEUTIC THORACENTESIS.
--- NOTE | 2018-04-04 17:13 | CARD ---
APPROVED REPORT EKG Measurement Heart [id number] <Conclusion> Normal sinus rhythm Possible Left atrial enlargement Possible septal infarct, age undetermined T wave abnormality, consider anterolateral ischemia Abnormal ECG
[2018-04-04 19:02] LABS: BODY FLUID TYPE PLEURAL/THORACENTESI
[2018-04-04 19:50] LABS: AMYLASE,BODY FLUID < 30 mg/dL (NONE ESTABLISHED); GLUCOSE,BODY FLUID 91 mg/dL (NONE ESTABLISHED)
[2018-04-04 20:07] LABS: TOTAL PROTEIN,BODY FLUID < 2.0 g/dL (NONE ESTABLISHED)
[2018-04-04 20:24] LABS: BF GROSS APPEARANCE BLOODY (CLEAR)
[2018-04-04 20:53] LABS: BODY FLUID MONO/MACROPHAGE 17 % (0-0); BODY FLUID TOTAL COUNT 100 (0-0)
--- NOTE | 2018-04-04 20:54 | PN ---
DATE: 04/04/2018 SUBJECTIVE: The patient is experiencing left-sided steady chest pain. PHYSICAL EXAMINATION: VITAL SIGNS: Blood pressure of 119/49, heart rate of 82, temperature of 97.6, and respirations of 18. HEENT: Pale conjunctivae. CHEST: Absent breath sounds over the left base. HEART: S1 and S2 regular and distant. EXTREMITIES: No edema. LABORATORY DATA: SMA-7; sodium 140, potassium 5.8, chloride 101, CO2 of 18, glucose 86, BUN 82 and creatinine 8.5. Hemoglobin and hematocrit 9.4 and 28.6, white count and platelet count are within normal limits. Chest CT scan revealed bilateral pleural effusion, left larger than right. Underlying compression atelectasis. Multifocal primarily upper lobe alveolar infiltrate likely infectious/inflammatory. ASSESSMENT: 1. Bilateral pleural effusion, left larger than right with compression atelectasis. 2. Single phase coronary artery disease with borderline stenosis of the ramus intermedius artery. 3. End-stage renal disease on hemodialysis. The patient has a problem with his dialysis access and was evaluated by vascular surgeon Dr. Cleveland, and plan is to perform Perm-A-Cath today. PLAN: Continue current aspirin, subcutaneous heparin, IV Lasix, Lipitor and Lopressor as well as Plavix. Case was discussed at length with Hedy. Coronary intervention should be postponed until the patient's pleural effusion is taken care of especially in view of history of old TB. Performing any intervention at this time will create problems holding antiplatelets for any future thoracocentesis besides that the patient has no dialysis access so far which has to be established and functional prior to any coronary intervention. The steady chest pain that the patient has is not anginal and today's EKG does not show acute ischemic changes as it is related as T wave abnormalities, consider anterolateral ischemia which in my opinion are practically nonspecific and has improved compared to the previous anterolateral ischemic changes on prior EKG on 03/30/2018. Coronary intervention should be postponed until all these other medical issues are taken care of. Hi Miles MD
[2018-04-05 06:39] LABS: HEMOGLOBIN 9.4 g/dL (12.0-18.0); MEAN CELL VOLUME 103.7 fl (80.0-94.0); MEAN CORPUSCULAR HEMOGLOBIN 33.8 pg (27.0-31.0); MEAN CORPUSCULAR HGB CONC 32.6 g/dL (33.0-37.0); RBC 2.78 Mil/uL (4.40-5.90); RED CELL DISTRIBUTION WIDTH 18.2 % (11.5-14.5); WHITE BLOOD COUNT 6.7 K/uL (4.8-10.8)
[2018-04-05 06:49] LABS: CALCIUM 6.9 mg/dL (8.4-10.2)
[2018-04-05] MEDS: Albuterol-Ipratrop 3 mg / 0.5 (3 ml) UD INH SCH ×3 (07:59→23:59)
--- NOTE | 2018-04-05 08:10 | CP.PCM.PN ---
Subjective - Date & Time of Evaluation Date of Evaluation: 04/05/18 Time of Evaluation: 07:20 - Subjective Subjective: Patient seen and examined this morning. No acute overnight events. Pt had non- tunnelled HD catheter placed in right IJV. Pt's had HD yesterday. Pt also had right thoracentesis with 900 cc serosanguinous fluid drained. Reports cough but orthopnea and dyspnea on exertion improved. Denies fever, chills, palpitations, headache, dizziness or chest pain. No changes in bowel habits. Tolerating PO well. Objective - Vital Signs/Intake and Output Vital Signs (last 24 hours): Temp Pulse Resp BP Pulse Ox 97.8 F 74 18 134/50 L 97 04/05/18 07:58 04/05/18 07:58 04/05/18 07:58 04/05/18 07:58 04/05/18 07:58 - Medications Medications: Current Medications Albuterol/Ipratropium (Duoneb 3 Mg/0.5 Mg (3 Ml) Ud) 3 ml INH RQ8 [facility] Last Admin: 04/05/18 07:59 Dose: 3 ml Albuterol/Ipratropium (Duoneb 3 Mg/0.5 Mg (3 Ml) Ud) 3 ml INH RQ4 PRN PRN Reason: Shortness of Breath Aspirin (Aspirin Chewable) 81 mg PO DAILY [facility] Last Admin: 04/04/18 09:43 Dose: Not Given Atorvastatin Calcium (Lipitor) 20 mg PO DAILY [facility] Last Admin: 04/04/18 09:31 Dose: 20 mg Cinacalcet (Sensipar) 30 mg PO DAILY [facility] Last Admin: 04/04/18 09:33 Dose: 30 mg Clopidogrel Bisulfate (Plavix) 75 mg PO DAILY [facility] Last Admin: 04/04/18 08:38 Dose: Not Given Epoetin José Manuel (Procrit) 4,000 unit IV TTS [facility] Last Admin: 04/03/18 18:32 Dose: Not Given Famotidine (Pepcid) 20 mg PO BID [facility] Last Admin: 04/04/18 23:05 Dose: 20 mg Furosemide (Lasix) 20 mg IVP BID [facility] Last Admin: 04/04/18 09:35 Dose: 20 mg Guaifenesin/Dextromethorphan (Mucinex-Dm 600-30 Mg) 1 tab PO BID PRN PRN Reason: Cough Last Admin: 04/03/18 09:23 Dose: 1 tab Heparin Sodium (Porcine) (Heparin) 5,000 units SC Q8 [facility] PRN Reason: Protocol Last Admin: 04/03/18 09:45 Dose: 5,000 units Metoprolol Tartrate (Lopressor) 12.5 mg PO Q12 [facility] Last Admin: 04/04/18 23:04 Dose: 12.5 mg Nitroglycerin (Nitrostat Sl Tab) 0.4 mg SL Q5M PRN PRN Reason: chest pain Last Admin: 04/04/18 04:27 Dose: 0.4 mg Prednisone (Prednisone Tab) 40 mg PO DAILY [facility] Stop: 04/05/18 11:31 Last Admin: 04/04/18 09:32 Dose: 40 mg Fluticasone/Salmeterol (Advair Diskus 500/50) 1 puff INH Q12 [facility] Last Admin: 04/04/18 23:03 Dose: 1 puff Sertraline HCl (Zoloft) 25 mg PO HS [facility] Last Admin: 04/04/18 23:06 Dose: 25 mg Sevelamer HCl (Renagel) 1,600 mg PO TID [facility] Last Admin: 04/04/18 09:32 Dose: 1,600 mg - Labs Labs: 04/05/18 05:20 04/05/18 05:20 PT 11.0 Seconds (9.8-13.1) 04/04/18 04:25 INR 1.0 (0.9-1.2) 04/04/18 04:25 APTT 27.2 Seconds (25.6-37.1) 04/04/18 04:25 - Additional Findings Additional findings: - Constitutional Appears: Non-toxic, No Acute Distress - Head Exam Head Exam: ATRAUMATIC, NORMOCEPHALIC - Neck Exam Neck Exam: Normal Inspection - Respiratory Exam Respiratory Exam: Crackles in the right lower lobe. NORMAL BREATHING PATTERN. absent: Wheezes or rhonchi - Cardiovascular Exam Cardiovascular Exam: REGULAR RHYTHM, +S1, +S2, Murmur - GI/Abdominal Exam GI & Abdominal Exam: Soft, Normal Bowel Sounds. absent: Tenderness - Extremities Exam Extremities Exam: Normal Inspection. absent: Calf Tenderness, Pedal Edema Additional comments: Left arm AV fistula Right IJ catheter site's dressing intact. 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 Plan: (1) Pleural effusion B/L -dyspnea improving - Chest X Ray: small left sided effusion - Has preserved EF on last echo - ProBNP on admission is 41,200. No pedal edema - CT of chest: IMPRESSION: Bilateral pleural effusions left larger than right. Underlying compressive atelectasis primarily affecting both lower lobes. Multifocal primarily upper lobe alveolar infiltrates likely infectious/ inflammatory. Pulmonary edema is a less likely consideration. -IR : right sided thoracentesis yesterday showed 900 cc, possible left thoracentesis today. (2) Chest pain - Improved, not present at this time - ProBNP on admission is 41,200. No pedal edema. - Last echo 10/16/17: LV EF 55%, borderline dilated LV, severe Aortic regurgitation, severe mitral regurgitation, mild tricuspid regurgitation. - Cardiac cath 10/17/17: has 60-70% stenosis of a small Ramus branch of LAD ( otherwise mild lesions detected) - Troponin x 3 neg - EKG: PVC's and anterolateral ST inversion new compared to old EKG - Echo on 04/03/18: LV is severely dilated. EF 60-65%. Severe mitral regurgitation, severe aortic regurgitation and moderate tricuspid regurgitation. - Cardio consulted, appreciate recommendations, plan for cath in the future. (3) Dyspnea on extertion: -Multifactorial likley secondary to COPD exacerbation and CHF -Continue 20 mg IV Lasix BID (4) COPD (chronic obstructive pulmonary disease) with mild exacerbation -No wheezing/rhonchi noted on exam, sob probably secondary to fluid in lungs -Chest X Ray: small left sided effusion -Repeat CXR on 03/31/18: Moderate pulmonary venous congestion and small left pleural effusion. -c/w Duonebs q8 -C/w advair -Continue prednisone 40mg PO daily (day 6) (5) Severe aortic regurgitation and Mitral regurgitation - Pending evaluation at [facility] for valve replacement (6) ESRD (end stage renal disease) -HD yesterday with new non-tunnelled HD catheter -On HD T//Mon -Nephrology-Dr. 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
[2018-04-05] MEDS: Fluticasone-Salmeterol 500-50mcg Diskus INH SCH ×2 (09:56→21:17)
--- NOTE | 2018-04-05 10:26 | CP.PCM.PN ---
Subjective - Date & Time of Evaluation Date of Evaluation: 04/05/18 Time of Evaluation: 10:24 - Subjective Subjective: Patient in bed he appears to be comfortable and not in any acute distress. Vital sign noted to be stable Objective - Vital Signs/Intake and Output Vital Signs (last 24 hours): Temp Pulse Resp BP Pulse Ox 97.8 F 74 18 134/50 L 97 04/05/18 07:58 04/05/18 09:56 04/05/18 07:58 04/05/18 09:56 04/05/18 07:58 - Medications Medications: Current Medications Albuterol/Ipratropium (Duoneb 3 Mg/0.5 Mg (3 Ml) Ud) 3 ml INH RQ8 [facility] Last Admin: 04/05/18 07:59 Dose: 3 ml Albuterol/Ipratropium (Duoneb 3 Mg/0.5 Mg (3 Ml) Ud) 3 ml INH RQ4 PRN PRN Reason: Shortness of Breath Aspirin (Aspirin Chewable) 81 mg PO DAILY [facility] Last Admin: 04/05/18 09:57 Dose: 81 mg Atorvastatin Calcium (Lipitor) 20 mg PO DAILY [facility] Last Admin: 04/05/18 09:56 Dose: 20 mg Cinacalcet (Sensipar) 30 mg PO DAILY [facility] Last Admin: 04/05/18 09:57 Dose: 30 mg Clopidogrel Bisulfate (Plavix) 75 mg PO DAILY [facility] Last Admin: 04/05/18 09:58 Dose: 75 mg Epoetin José Manuel (Procrit) 4,000 unit IV TTS [facility] Last Admin: 04/03/18 18:32 Dose: Not Given Famotidine (Pepcid) 20 mg PO BID [facility] Last Admin: 04/05/18 09:56 Dose: 20 mg Furosemide (Lasix) 20 mg IVP BID [facility] Last Admin: 04/04/18 17:00 Dose: Not Given Guaifenesin/Dextromethorphan (Mucinex-Dm 600-30 Mg) 1 tab PO BID PRN PRN Reason: Cough Last Admin: 04/03/18 09:23 Dose: 1 tab Heparin Sodium (Porcine) (Heparin) 5,000 units SC Q8 [facility] PRN Reason: Protocol Last Admin: 04/03/18 09:45 Dose: 5,000 units Metoprolol Tartrate (Lopressor) 12.5 mg PO Q12 [facility] Last Admin: 04/05/18 09:56 Dose: 12.5 mg Nitroglycerin (Nitrostat Sl Tab) 0.4 mg SL Q5M PRN PRN Reason: chest pain Last Admin: 04/04/18 04:27 Dose: 0.4 mg Prednisone (Prednisone Tab) 40 mg PO DAILY [facility] Stop: 04/05/18 11:31 Last Admin: 04/05/18 09:58 Dose: 40 mg Fluticasone/Salmeterol (Advair Diskus 500/50) 1 puff INH Q12 [facility] Last Admin: 04/05/18 09:56 Dose: 1 puff Sertraline HCl (Zoloft) 25 mg PO HS [facility] Last Admin: 04/04/18 23:06 Dose: 25 mg Sevelamer HCl (Renagel) 1,600 mg PO TID [facility] Last Admin: 04/05/18 09:57 Dose: 1,600 mg - Labs Labs: 04/05/18 05:20 04/05/18 05:20 PT 11.0 Seconds (9.8-13.1) 04/04/18 04:25 INR 1.0 (0.9-1.2) 04/04/18 04:25 APTT 27.2 Seconds (25.6-37.1) 04/04/18 04:25 - Constitutional Appears: No Acute Distress - ENT Exam ENT Exam: Mucous Membranes Moist - Respiratory Exam Respiratory Exam: NORMAL BREATHING PATTERN - Cardiovascular Exam Cardiovascular Exam: REGULAR RHYTHM. absent: Gallop, JVD - GI/Abdominal Exam GI & Abdominal Exam: Soft, Normal Bowel Sounds - Extremities Exam Extremities Exam: absent: Calf Tenderness - Back Exam Back Exam: absent: CVA tenderness (L), CVA tenderness (R) - Neurological Exam Neurological Exam: Alert - Psychiatric Exam Psychiatric exam: Normal Affect - Skin Skin Exam: absent: Cyanosis Assessment and Plan (1) CKD (chronic kidney disease) requiring chronic dialysis Assessment & Plan: End stage renal disease on maintenance hemodialysis. Patient scheduled to have dialysis shortly because he missed his time on Monday. Clotted left AV shunt. I discussed with the resident to call vascular again for further evaluation in meantime suggest to do fistulogram please order fistulogram. 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 Last echo 10/16/17: LV EF WNL, borderline dilated LV, severe Aortic regurgitation, severe mitral regurgitation, mild tricuspid regurgitation. Cardiac cath 10/17/17 hyperphosphatemia continue phosphorus binder Secondary hyperparathyroidism continue calcitriol and Sensipar Schedule for hemodialysis for tomorrow. Anemia continue EPO Status: Acute
[2018-04-05] MEDS: Epoetin Alfa 4000 UNIT/ML Inj IV SCH (13:13)
--- NOTE | 2018-04-05 13:15 | CP.PCM.CON ---
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 Pt underwent R Thoracentesis yesterday with 900cc serosanguineous fluid drained, also s/p Permacath placed at bedside yesterday. Worsening symptoms: GUIDRY. Initially, Pt came to ER [facility] [place] on 03/29/28, c/o of chest pain left sided for 2 month, increased on on DOA, alleviated with Nitrate increased doses. Echo shows severe Mitral and Aortic regurgitation, moderate tricuspid regurgitation. Aggravated factor: movements/exercise. Hx of non compliance with medications. Pt denied: Fever, chills, n/v/d, abdominal pain, headache, dizziness, syncope, palpitations, urinary symptoms, sick contact, recent travel out of [facility] [place]. CT Chest: B/L Pleural effusion, L>R, multifocal infiltrates affecting RUL and GREGORY, these are mild and alveolar in types. Review of Systems - Constitutional Constitutional: Other (negative). absent: Chills, Fever - EENT Eyes: Other (negative) Ears: Other (negative) Nose/Mouth/Throat: Other (negative) - Cardiovascular Cardiovascular: Chest Pain, Dyspnea on Exertion. absent: Leg Edema - Respiratory Respiratory: Dyspnea on Exertion. absent: Hemoptysis - Genitourinary Genitourinary: Other (negative) - Musculoskeletal Musculoskeletal: Other (negative) - Integumentary Integumentary: Other (negative) - Neurological Neurological: Other (negative) - Psychiatric Psychiatric: Other (negative) - Endocrine Endocrine: Other (negative) - Hematologic/Lymphatic Hematologic: Other (negative) Past Patient History - Infectious Disease Hx of Infectious Diseases: None - Past Medical History & Family History Past Medical History?: Yes - Past Social History Smoking Status: Former Smoker Alcohol: Other (Hx of former alcohol abuse) Drugs: Denies Home Situation {Lives}: Alone - CARDIAC Hx Cardiac Disorders: Yes Hx Congestive Heart Failure: Yes Hx Hypertension: Yes - PULMONARY Hx Respiratory Disorders: Yes Hx Chronic Obstructive Pulmonary Disease (COPD): Yes Hx Pneumonia: Yes - NEUROLOGICAL Hx Neurological Disorder: Yes Hx Meningitis: Yes Hx Seizures: Yes - HEENT Hx HEENT Problems: No - RENAL Hx Chronic Kidney Disease: Yes Hx Dialysis: Yes - ENDOCRINE/METABOLIC Hx Endocrine Disorders: No - HEMATOLOGICAL/ONCOLOGICAL Hx Blood Disorders: Yes Hx Anemia: Yes Hx Human Immunodeficiency Virus (HIV): No - INTEGUMENTARY Hx Dermatological Problems: No - MUSCULOSKELETAL/RHEUMATOLOGICAL Hx Musculoskeletal Disorders: Yes Hx Arthritis: Yes - GASTROINTESTINAL Hx Gastrointestinal Disorders: Yes Hx Hemorrhoids: Yes - GENITOURINARY/GYNECOLOGICAL Hx Genitourinary Disorders: No - PSYCHIATRIC Hx Psychophysiologic Disorder: Yes Hx Anxiety: Yes Hx Depression: Yes - SURGICAL HISTORY Hx Surgeries: Yes Hx Coronary Stent: No Other/Comment: L eyebrow laceration - ANESTHESIA Hx Anesthesia: Yes Hx Anesthesia Reactions: No Hx Malignant Hyperthermia: No Meds Allergies/Adverse Reactions: Allergies Allergy/AdvReac Type Severity Reaction Status Date / Time sulfamethoxazole Allergy RASH Verified 02/12/18 09:51 [From ] trimethoprim [From ] Allergy RASH Verified 02/12/18 09:51 - Medications Medications: Current Medications Albuterol/Ipratropium (Duoneb 3 Mg/0.5 Mg (3 Ml) Ud) 3 ml INH RQ8 [facility] Last Admin: 04/05/18 07:59 Dose: 3 ml Albuterol/Ipratropium (Duoneb 3 Mg/0.5 Mg (3 Ml) Ud) 3 ml INH RQ4 PRN PRN Reason: Shortness of Breath Aspirin (Aspirin Chewable) 81 mg PO DAILY [facility] Last Admin: 04/05/18 09:57 Dose: 81 mg Atorvastatin Calcium (Lipitor) 20 mg PO DAILY [facility] Last Admin: 04/05/18 09:56 Dose: 20 mg Cinacalcet (Sensipar) 30 mg PO DAILY [facility] Last Admin: 04/05/18 09:57 Dose: 30 mg Clopidogrel Bisulfate (Plavix) 75 mg PO DAILY [facility] Last Admin: 04/05/18 09:58 Dose: 75 mg Epoetin José Manuel (Procrit) 4,000 unit IV TTS [facility] Last Admin: 04/05/18 13:13 Dose: 4,000 unit Famotidine (Pepcid) 20 mg PO BID [facility] Last Admin: 04/05/18 09:56 Dose: 20 mg Furosemide (Lasix) 20 mg IVP BID [facility] Last Admin: 04/05/18 11:02 Dose: 20 mg Guaifenesin/Dextromethorphan (Mucinex-Dm 600-30 Mg) 1 tab PO BID PRN PRN Reason: Cough Last Admin: 04/03/18 09:23 Dose: 1 tab Heparin Sodium (Porcine) (Heparin) 5,000 units SC Q8 [facility] PRN Reason: Protocol Last Admin: 04/03/18 09:45 Dose: 5,000 units Metoprolol Tartrate (Lopressor) 12.5 mg PO Q12 [facility] Last Admin: 04/05/18 09:56 Dose: 12.5 mg Nitroglycerin (Nitrostat Sl Tab) 0.4 mg SL Q5M PRN PRN Reason: chest pain Last Admin: 04/04/18 04:27 Dose: 0.4 mg Fluticasone/Salmeterol (Advair Diskus 500/50) 1 puff INH Q12 [facility] Last Admin: 04/05/18 09:56 Dose: 1 puff Sertraline HCl (Zoloft) 25 mg PO HS [facility] Last Admin: 04/04/18 23:06 Dose: 25 mg Sevelamer HCl (Renagel) 1,600 mg PO TID [facility] Last Admin: 04/05/18 13:12 Dose: 1,600 mg Physical Exam - Constitutional Appears: No Acute Distress, Chronically Ill - Head Exam Head Exam: NORMAL INSPECTION - Eye Exam Eye Exam: EOMI, PERRL - ENT Exam ENT Exam: Normal Oropharynx - Neck Exam Additional comments: HD Cath RIJ - Respiratory Exam Respiratory Exam: Decreased Breath Sounds (bases, L>R) - Cardiovascular Exam Cardiovascular Exam: REGULAR RHYTHM, Systolic Murmur - GI/Abdominal Exam GI & Abdominal Exam: Normal Bowel Sounds, Soft - Extremities Exam Additional comments: L arm AV fistula - Back Exam Back exam: NORMAL INSPECTION - Neurological Exam Neurological exam: Alert, Oriented x3 - Psychiatric Exam Psychiatric exam: Normal Affect, Normal Mood - Skin Skin Exam: Warm Results - Vital Signs Recent Vital Signs: Last Vital Signs Temp 98.2 F 04/05/18 12:09 Pulse 82 04/05/18 12:09 Resp 18 04/05/18 12:09 BP 123/51 L 04/05/18 12:09 Pulse Ox 97 04/05/18 12:09 reviewed J.P. - Labs Result Diagrams: 04/06/18 04:40 04/06/18 04:40 Labs: Laboratory Results - last 24 hr 04/04/18 04/04/18 04/04/18 18:30 18:30 18:30 WBC RBC Hgb Hct MCV MCH MCHC RDW Plt Count Sodium Potassium Chloride Carbon Dioxide Anion Gap BUN Creatinine Est GFR ( Amer) Est GFR (Non-Af Amer) Random Glucose Calcium Fluid Source Pleural/thoracentesi Fluid Appearance Bloody Fluid WBC 183.0 Fluid RBC 65524.0 H Fluid Tot Cell Count 100 H Fluid Neutrophils 30.0 H Fluid Lymphocytes 53.0 H Fld Monocyte/Macrophag 17 H Fluid Glucose 91 Fluid Total Protein < 2.0 Fluid LDH 228 Fluid Amylase < 30 Fluid Triglycerides < 10 Fluid Comment Bloody Pleural Cholesterol TNP 04/05/18 04/05/18 05:20 05:20 WBC 6.7 RBC 2.78 L Hgb 9.4 L Hct 28.8 L MCV 103.7 H MCH 33.8 H MCHC 32.6 L RDW 18.2 H Plt Count 160 Sodium 137 Potassium 5.0 Chloride 99 Carbon Dioxide 28 Anion Gap 15 BUN 47 H Creatinine 5.2 H Est GFR ( Amer) 13 Est GFR (Non-Af Amer) 11 Random Glucose 80 Calcium 6.9 L Fluid Source Fluid Appearance Fluid WBC Fluid RBC Fluid Tot Cell Count Fluid Neutrophils Fluid Lymphocytes Fld Monocyte/Macrophag Fluid Glucose Fluid Total Protein Fluid LDH Fluid Amylase Fluid Triglycerides Fluid Comment Pleural Cholesterol reviewed J.P. - EKG Data EKG comments: Reviewed J.P. - Impressions Impression: Echo: Reviewed J.P. - Imaging and Cardiology Chest x-ray Status: Report reviewed by me (J.P.) CT scan - chest Status: Report reviewed by me (J.P.) Assessment & Plan (1) Pleural effusion, bilateral Status: Acute Priority: High (2) Status post thoracentesis Status: Acute Comment: R lung (3) SHERRY (acute kidney injury) Status: Acute Priority: Medium (4) CKD (chronic kidney disease) requiring chronic dialysis Status: Acute (5) COPD (chronic obstructive pulmonary disease) Status: Chronic Priority: High (6) Multilobar lung infiltrate Status: Acute - Assessment and Plan (Free Text) Plan: F/U Thoracentesis report., ECHO LV dilated , mild LVH , LVEF 60-65& , severe MR and AR , mod TR , plans for possible L Thoracentesis , repeat CT after dialysis - Date & Time Date: 04/05/18
[2018-04-06 05:33] LABS: HEMOGLOBIN 9.9 g/dL (12.0-18.0); MEAN CELL VOLUME 103.1 fl (80.0-94.0); MEAN CORPUSCULAR HEMOGLOBIN 33.8 pg (27.0-31.0); MEAN CORPUSCULAR HGB CONC 32.8 g/dL (33.0-37.0); RBC 2.93 Mil/uL (4.40-5.90); RED CELL DISTRIBUTION WIDTH 18.4 % (11.5-14.5); WHITE BLOOD COUNT 6.5 K/uL (4.8-10.8)
[2018-04-06 05:39] LABS: CALCIUM 7.1 mg/dL (8.4-10.2)
[2018-04-06] MEDS: Albuterol-Ipratrop 3 mg / 0.5 (3 ml) UD INH SCH ×2 (08:01→15:41)
--- NOTE | 2018-04-06 09:37 | CP.PCM.PN ---
Subjective - Date & Time of Evaluation Date of Evaluation: 04/06/18 Time of Evaluation: 09:31 - Subjective Subjective: Pt is seen and examined by bedside this AM. No acute overnight events. Pt states that his breathing has improved significantly since the thoracentesis, continues to have mild dyspnea when laying flat on bed. Denies chest pain or chest discomfort. Pt ambulating around the room without any difficulties, good PO intake. [place] used, [id number] Objective - Vital Signs/Intake and Output Vital Signs (last 24 hours): Temp Pulse Resp BP Pulse Ox 98.3 F 75 20 126/50 L 97 04/06/18 08:03 04/06/18 08:03 04/06/18 08:03 04/06/18 08:03 04/06/18 08:03 - Medications Medications: Current Medications Albuterol/Ipratropium (Duoneb 3 Mg/0.5 Mg (3 Ml) Ud) 3 ml INH RQ8 [facility] Last Admin: 04/06/18 08:01 Dose: 3 ml Albuterol/Ipratropium (Duoneb 3 Mg/0.5 Mg (3 Ml) Ud) 3 ml INH RQ4 PRN PRN Reason: Shortness of Breath Aspirin (Aspirin Chewable) 81 mg PO DAILY [facility] Last Admin: 04/05/18 09:57 Dose: 81 mg Atorvastatin Calcium (Lipitor) 20 mg PO DAILY [facility] Last Admin: 04/05/18 09:56 Dose: 20 mg Cinacalcet (Sensipar) 30 mg PO DAILY [facility] Last Admin: 04/05/18 09:57 Dose: 30 mg Clopidogrel Bisulfate (Plavix) 75 mg PO DAILY [facility] Last Admin: 04/05/18 09:58 Dose: 75 mg Epoetin José Manuel (Procrit) 4,000 unit IV TTS [facility] Last Admin: 04/05/18 13:13 Dose: 4,000 unit Famotidine (Pepcid) 20 mg PO BID [facility] Last Admin: 04/05/18 16:58 Dose: Not Given Furosemide (Lasix) 20 mg IVP BID [facility] Last Admin: 04/05/18 16:58 Dose: Not Given Guaifenesin/Dextromethorphan (Mucinex-Dm 600-30 Mg) 1 tab PO BID PRN PRN Reason: Cough Last Admin: 04/03/18 09:23 Dose: 1 tab Heparin Sodium (Porcine) (Heparin) 5,000 units SC Q8 [facility] PRN Reason: Protocol Last Admin: 04/03/18 09:45 Dose: 5,000 units Metoprolol Tartrate (Lopressor) 12.5 mg PO Q12 [facility] Last Admin: 04/05/18 21:18 Dose: 12.5 mg Nitroglycerin (Nitrostat Sl Tab) 0.4 mg SL Q5M PRN PRN Reason: chest pain Last Admin: 04/04/18 04:27 Dose: 0.4 mg Fluticasone/Salmeterol (Advair Diskus 500/50) 1 puff INH Q12 [facility] Last Admin: 04/05/18 21:17 Dose: 1 puff Sertraline HCl (Zoloft) 25 mg PO HS [facility] Last Admin: 04/05/18 21:19 Dose: 25 mg Sevelamer HCl (Renagel) 1,600 mg PO TID [facility] Last Admin: 04/05/18 16:58 Dose: Not Given - Labs Labs: 04/06/18 04:40 04/06/18 04:40 PT 11.0 Seconds (9.8-13.1) 04/04/18 04:25 INR 1.0 (0.9-1.2) 04/04/18 04:25 APTT 27.2 Seconds (25.6-37.1) 04/04/18 04:25 - Constitutional Appears: No Acute Distress - Head Exam Head Exam: ATRAUMATIC - Eye Exam Eye Exam: EOMI, Normal appearance - ENT Exam ENT Exam: Mucous Membranes Moist - Respiratory Exam Respiratory Exam: Clear to Ausculation Bilateral, Wheezes (mild wheezing b/l in the lower lobes), NORMAL BREATHING PATTERN. absent: Rales, Rhonchi - Cardiovascular Exam Cardiovascular Exam: REGULAR RHYTHM, +S1, +S2 - GI/Abdominal Exam GI & Abdominal Exam: Soft, Normal Bowel Sounds. absent: Tenderness - Extremities Exam Extremities Exam: Full ROM. 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 Pleural effusion B/L -dyspnea improving -Chest X Ray: small left sided effusion -Has preserved EF on last echo -ProBNP on admission is 41,200. No pedal edema -CT of chest: IMPRESSION: Bilateral pleural effusions left larger than right. Underlying compressive atelectasis primarily affecting both lower lobes. Multifocal primarily upper lobe alveolar infiltrates likely infectious/ inflammatory. Pulmonary edema is a less likely consideration. -pulmonary on board -IR: right sided thoracentesis (04/04) showed 900 cc. L thoracentesis today, 1000cc of sero-sangunious fluid. -R thoracentesis fluid; no fungal growth, no mycobacterium and no culture growth x 24 hrs- follow up. Per Light's criteria, effusion fluid likely transudative -L thoracentesis fluid culture pending Chest pain - Improved, not present at this time - ProBNP on admission is 41,200. No pedal edema. - Last echo 10/16/17: LV EF 55%, borderline dilated LV, severe Aortic regurgitation, severe mitral regurgitation, mild tricuspid regurgitation. - Cardiac cath 10/17/17: has 60-70% stenosis of a small Ramus branch of LAD ( otherwise mild lesions detected) - Troponin x 3 neg - EKG: PVC's and anterolateral ST inversion new compared to old EKG - Echo on 04/03/18: LV is severely dilated. EF 60-65%. Severe mitral regurgitation, severe aortic regurgitation and moderate tricuspid regurgitation. - Cardio consulted, appreciate recommendations, plan for cath in the future. Dyspnea on extertion: -Multifactorial likely secondary to COPD exacerbation and CHF -Continue 20 mg IV Lasix BID COPD (chronic obstructive pulmonary disease) with mild exacerbation -No wheezing/rhonchi noted on exam, sob probably secondary to fluid in lungs -Chest X Ray: small left sided effusion -Repeat CXR on 03/31/18: Moderate pulmonary venous congestion and small left pleural effusion. -c/w Duonebs q8 -C/w advair -Continue prednisone 40mg PO daily (day 7) Severe aortic regurgitation and Mitral regurgitation - Pending evaluation at [facility] for valve replacement ESRD (end stage renal disease) -HD yesterday with new non-tunnelled HD catheter -On HD T//Mon -Left AV shunt clotted; fistulogram today with IR, pending results -Nephrology-Dr. 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
[2018-04-06] MEDS: Fluticasone-Salmeterol 500-50mcg Diskus INH SCH ×2 (09:39→20:29)
--- NOTE | 2018-04-06 11:18 | PCM.SURG1 ---
Surgeon's Initial Post Op Note - Surgeon's Notes Surgeon: Herb Diaz MD Health Care Analyst: NONE Type of Anesthesia: Local Pre-Operative Diagnosis: Left pleural effusion Operative Findings: US showed large left pleural effusion Post-Operative Diagnosis: Left pleural effusion Operation Performed: US guided left thoracentesis Specimen/Specimens Removed: 1000 cc of serosanguinous fluid Estimated Blood Loss: EBL {In ML}: 0 Blood Products Given: N/A Drains Used: No Drains Post-Op Condition: Fair Date of Surgery/Procedure: 04/06/18 Time of Surgery/Procedure: 11:15
[2018-04-06] MEDS ORDERED: Midazolam 2 MG/2 ML VIAL ONE (11:23)
[2018-04-06] MEDS ORDERED: Iodixanol 320 MG/ML 100 ML BOTTLE IV ONE (11:24)
[2018-04-06] MEDS ORDERED: LIDOCAINE 2% 10ML 20 MG/ML VIAL IJ ONE (11:26)
--- NOTE | 2018-04-06 11:40 | VASCULAR ---
PROCEDURE: NON-TUNNELED HEMODIALYSIS CATHETER PLACEMENT CLINICAL HISTORY: 68-year-old male with end-stage renal disease requiring hemodialysis and nonfunctioning AV fistula is referred to Interventional Radiology for non-tunneled hemodialysis catheter placement. PROCEDURE: 1. Focused ultrasound of the right neck vasculature. 2. Ultrasound-guided access. 3. Insertion of non-tunneled hemodialysis catheter. 4. Fluoroscopic localization of catheter tip. PRE-PROCEDURE FINDINGS: 1. Patent right internal jugular vein. POST-PROCEDURE FINDINGS: 1. Placement of 14 Swazi non-tunneled hemodialysis catheter. 2. Catheter tip at cavoatrial junction. INTERVENTIONAL RADIOLOGIST: Tavares Simeon M.D. (the attending was present for the entire procedure) ANESTHESIA: None. MEDICATION: Lidocaine 1% for local subcutaneous analgesia. COMPLICATIONS: None. RADIATION DOSE: Fluoroscopy Time: 86.5 seconds Cumulative Dose: 16.8 mGy PROCEDURE DESCRIPTION AND FINDINGS: The risks, benefits, alternatives and possible complications of the procedure were fully discussed; all questions were answered and informed consent was obtained. The patient was brought into the interventional suite and a pre-procedure 'time-out' was performed. The patient was placed on the fluoroscopy table in the supine position. The right neck was prepped and draped in the usual sterile fashion. Maximum sterile barrier precautions were maintained throughout the entire procedure. Preliminary ultrasound images of the right neck vasculature demonstrate patency of the right internal jugular vein. Following subcutaneous infiltration of 1% lidocaine for local analgesia, under ultrasound guidance, a 21-gauge needle was advanced into the right internal jugular vein with real-time visualization of needle entry. The ultrasound images were permanently recorded and submitted to the PACS. A 0.035 guidewire was advanced centrally to the inferior vena cava. After serial dilatation, a 14 Swazi non-tunneled hemodialysis catheter was advanced over the guidewire with the tip of the catheter at the cavoatrial junction. The catheter was sutured to the skin utilizing 2-0 prolene. A sterile adhesive dressing was applied. Both ports were heparinized. The patient tolerated the procedure well without immediate post-procedure complications and was transferred back to the floor in stable condition. IMPRESSION: SUCCESSFUL INSERTION OF RIGHT INTERNAL JUGULAR ACCESS NON-TUNNELED HEMODIALYSIS CATHETER.
--- NOTE | 2018-04-06 11:53 | PCM.SURG1 ---
Surgeon's Initial Post Op Note - Surgeon's Notes Surgeon: Herb Diaz MD Process Engineering Manager: NONE Type of Anesthesia: IV Sedation Pre-Operative Diagnosis: ESRD, occluded left brachiocephalic AVF Operative Findings: Left AV fistulagram showed collaterals, chronic occlusion of 15 cm cephalic vein segment mid upper arm. Central venogram normal. Juxta- anastomosis 40 % stenosis. Post-Operative Diagnosis: ESRD, occluded left cephalic vein Operation Performed: AV fistulagram, FRONT WORKER cephalic vein with 7 mm x 6 cm balloon. Specimen/Specimens Removed: NONE Estimated Blood Loss: EBL {In ML}: 4 Blood Products Given: N/A Drains Used: No Drains Post-Op Condition: Fair Date of Surgery/Procedure: 04/06/18 Time of Surgery/Procedure: 11:50
[2018-04-06] MEDS ORDERED: Lactated Ringer's 500 ML IV ONE (12:45)
[2018-04-06] MEDS ORDERED: Sodium Chloride 0.9% 250 ML IV ONE (12:45)
--- NOTE | 2018-04-06 13:58 | CP.PCM.PN ---
Subjective - Date & Time of Evaluation Date of Evaluation: 04/06/18 Time of Evaluation: 13:56 - Subjective Subjective: patient is up and around No chest pain reported no shortness of breath Objective - Vital Signs/Intake and Output Vital Signs (last 24 hours): Temp Pulse Resp BP Pulse Ox 97.2 F L 65 18 102/46 L 95 04/06/18 13:10 04/06/18 13:25 04/06/18 13:25 04/06/18 13:25 04/06/18 13:25 Intake and Output: 04/06/18 04/06/18 06:59 18:59 Intake Total 100 Balance 100 - Medications Medications: Current Medications Albuterol/Ipratropium (Duoneb 3 Mg/0.5 Mg (3 Ml) Ud) 3 ml INH RQ8 [facility] Last Admin: 04/06/18 08:01 Dose: 3 ml Albuterol/Ipratropium (Duoneb 3 Mg/0.5 Mg (3 Ml) Ud) 3 ml INH RQ4 PRN PRN Reason: Shortness of Breath Aspirin (Aspirin Chewable) 81 mg PO DAILY [facility] Last Admin: 04/06/18 09:39 Dose: 81 mg Atorvastatin Calcium (Lipitor) 20 mg PO DAILY [facility] Last Admin: 04/05/18 09:56 Dose: 20 mg Cinacalcet (Sensipar) 30 mg PO DAILY [facility] Last Admin: 04/06/18 09:41 Dose: 30 mg Clopidogrel Bisulfate (Plavix) 75 mg PO DAILY [facility] Last Admin: 04/06/18 09:41 Dose: 75 mg Epoetin José Manuel (Procrit) 4,000 unit IV TTS [facility] Last Admin: 04/05/18 13:13 Dose: 4,000 unit Famotidine (Pepcid) 20 mg PO BID [facility] Last Admin: 04/06/18 09:40 Dose: 20 mg Furosemide (Lasix) 20 mg IVP BID [facility] Last Admin: 04/06/18 09:43 Dose: 20 mg Guaifenesin/Dextromethorphan (Mucinex-Dm 600-30 Mg) 1 tab PO BID PRN PRN Reason: Cough Last Admin: 04/03/18 09:23 Dose: 1 tab Heparin Sodium (Porcine) (Heparin) 5,000 units SC Q8 [facility] PRN Reason: Protocol Last Admin: 04/03/18 09:45 Dose: 5,000 units Metoprolol Tartrate (Lopressor) 12.5 mg PO Q12 [facility] Last Admin: 04/06/18 09:40 Dose: 12.5 mg Nitroglycerin (Nitrostat Sl Tab) 0.4 mg SL Q5M PRN PRN Reason: chest pain Last Admin: 04/04/18 04:27 Dose: 0.4 mg Fluticasone/Salmeterol (Advair Diskus 500/50) 1 puff INH Q12 [facility] Last Admin: 04/06/18 09:39 Dose: 1 puff Sertraline HCl (Zoloft) 25 mg PO HS [facility] Last Admin: 04/05/18 21:19 Dose: 25 mg Sevelamer HCl (Renagel) 1,600 mg PO TID [facility] Last Admin: 04/06/18 13:52 Dose: 1,600 mg - Labs Labs: 04/06/18 04:40 04/06/18 04:40 PT 11.0 Seconds (9.8-13.1) 04/04/18 04:25 INR 1.0 (0.9-1.2) 04/04/18 04:25 APTT 27.2 Seconds (25.6-37.1) 04/04/18 04:25 - Constitutional Appears: No Acute Distress - Eye Exam Eye Exam: Conjunctival injection - ENT Exam ENT Exam: absent: Mucous Membranes Moist - Neck Exam Neck Exam: absent: Lymphadenopathy - Respiratory Exam Respiratory Exam: NORMAL BREATHING PATTERN. absent: Chest Wall Tenderness, Rales - Cardiovascular Exam Cardiovascular Exam: REGULAR RHYTHM. absent: Gallop, JVD - GI/Abdominal Exam GI & Abdominal Exam: Soft, Normal Bowel Sounds - Extremities Exam Extremities Exam: absent: Calf Tenderness - Back Exam Back Exam: absent: CVA tenderness (L), CVA tenderness (R) - Neurological Exam Neurological Exam: Alert - Psychiatric Exam Psychiatric exam: Normal Affect - Skin Skin Exam: absent: Cyanosis, Dry Assessment and Plan (1) CKD (chronic kidney disease) requiring chronic dialysis Assessment & Plan: end stage renal disease scheduled to have dialysis tomorrow through the left AV shunt which has been thrombectomize today. Status post closet left AV shunt with stenosis as noted with the interventional radiologist and status post angioplasty to use AV fistula tomorrow on dialysis. bilateral pleural effusion Status post left thoracocentesis and I believe there is going for the right thoracocentesis COPD, ANCA negative vasculitis history. stable angina admitted for rule out ACS. Last echo 10/16/17: LV EF WNL, borderline dilated LV, severe Aortic regurgitation, severe mitral regurgitation, mild tricuspid regurgitation. Cardiac cath 10/17/17 hyperphosphatemia continue phosphorus binder Secondary hyperparathyroidism continue calcitriol and Sensipar Schedule for hemodialysis for tomorrow. Anemia continue EPO Status: Acute
[2018-04-06 14:47] LABS: BODY FLUID TYPE PLEURAL/THORACENTESI
[2018-04-06 15:32] LABS: BF GROSS APPEARANCE BLOODY (CLEAR)
[2018-04-06 16:46] LABS: BODY FLUID MONO/MACROPHAGE 22 % (0-0); BODY FLUID TOTAL COUNT 100 (0-0)
[2018-04-06] MEDS: guaiFENesin-DM 600-30 mg ER Tab PO PRN (20:29)
--- NOTE | 2018-04-06 23:39 | CP.PCM.PN ---
Subjective - Date & Time of Evaluation Date of Evaluation: 04/06/18 Time of Evaluation: 13:30 - Subjective Subjective: S/P L Thoracentesis. No AD , no SOB ,no GUIDRY , no cough , no fever Objective - Vital Signs/Intake and Output Vital Signs (last 24 hours): Temp Pulse Resp BP Pulse Ox 98.5 F 74 16 112/46 L 96 04/06/18 19:57 04/06/18 21:20 04/06/18 19:57 04/06/18 21:20 04/06/18 19:57 Intake and Output: 04/06/18 04/07/18 18:59 06:59 Intake Total 1500 Output Total 1000 Balance 500 - Medications Medications: Current Medications Acetaminophen (Tylenol 325mg Tab) 650 mg PO ONCE ONE Stop: 04/06/18 23:24 Albuterol/Ipratropium (Duoneb 3 Mg/0.5 Mg (3 Ml) Ud) 3 ml INH RQ8 [facility] Last Admin: 04/06/18 15:41 Dose: 3 ml Albuterol/Ipratropium (Duoneb 3 Mg/0.5 Mg (3 Ml) Ud) 3 ml INH RQ4 PRN PRN Reason: Shortness of Breath Aspirin (Aspirin Chewable) 81 mg PO DAILY [facility] Last Admin: 04/06/18 09:39 Dose: 81 mg Atorvastatin Calcium (Lipitor) 20 mg PO DAILY@2200 [facility] Last Admin: 04/06/18 21:20 Dose: 20 mg Cinacalcet (Sensipar) 30 mg PO DAILY [facility] Last Admin: 04/06/18 09:41 Dose: 30 mg Clopidogrel Bisulfate (Plavix) 75 mg PO DAILY [facility] Last Admin: 04/06/18 09:41 Dose: 75 mg Epoetin José Manuel (Procrit) 4,000 unit IV TTS [facility] Last Admin: 04/05/18 13:13 Dose: 4,000 unit Famotidine (Pepcid) 20 mg PO BID [facility] Last Admin: 04/06/18 16:35 Dose: 20 mg Furosemide (Lasix) 20 mg IVP BID [facility] Last Admin: 04/06/18 16:35 Dose: 20 mg Guaifenesin/Dextromethorphan (Mucinex-Dm 600-30 Mg) 1 tab PO BID PRN PRN Reason: Cough Last Admin: 04/06/18 20:29 Dose: 1 tab Heparin Sodium (Porcine) (Heparin) 5,000 units SC Q8 [facility] PRN Reason: Protocol Last Admin: 04/03/18 09:45 Dose: 5,000 units Metoprolol Tartrate (Lopressor) 12.5 mg PO Q12 [facility] Last Admin: 04/06/18 21:20 Dose: 12.5 mg Nitroglycerin (Nitrostat Sl Tab) 0.4 mg SL Q5M PRN PRN Reason: chest pain Last Admin: 04/04/18 04:27 Dose: 0.4 mg Fluticasone/Salmeterol (Advair Diskus 500/50) 1 puff INH Q12 [facility] Last Admin: 04/06/18 20:29 Dose: 1 puff Sertraline HCl (Zoloft) 25 mg PO HS [facility] Last Admin: 04/06/18 21:30 Dose: 25 mg Sevelamer HCl (Renagel) 1,600 mg PO TID [facility] Last Admin: 04/06/18 16:35 Dose: 1,600 mg - Labs Labs: 04/06/18 04:40 04/06/18 04:40 PT 11.0 Seconds (9.8-13.1) 04/04/18 04:25 INR 1.0 (0.9-1.2) 04/04/18 04:25 APTT 27.2 Seconds (25.6-37.1) 04/04/18 04:25 - Constitutional Appears: No Acute Distress - Head Exam Head Exam: NORMAL INSPECTION - Eye Exam Eye Exam: PERRL - ENT Exam ENT Exam: Normal Exam - Neck Exam Additional comments: HD Cath RIJ - Respiratory Exam Respiratory Exam: Decreased Breath Sounds (at bases) - Cardiovascular Exam Cardiovascular Exam: REGULAR RHYTHM, Murmur - GI/Abdominal Exam GI & Abdominal Exam: Soft, Normal Bowel Sounds - Extremities Exam Additional comments: L arm AV fistula with bruit and thrill - Back Exam Back Exam: NORMAL INSPECTION - Neurological Exam Neurological Exam: Alert, Oriented x3. absent: Motor Sensory Deficit - Psychiatric Exam Psychiatric exam: Normal Affect - Skin Skin Exam: Warm Assessment and Plan (1) Pleural effusion, bilateral Status: Acute (2) Status post thoracentesis Assessment & Plan: R 04-04-18 , L 04-06-18 Status: Acute (3) SHERRY (acute kidney injury) Status: Acute (4) CKD (chronic kidney disease) requiring chronic dialysis Status: Acute (5) COPD (chronic obstructive pulmonary disease) Assessment & Plan: s/p L Thoracentesis today Status: Chronic (6) Multilobar lung infiltrate Status: Acute - Assessment and Plan (Free Text) Plan: s/p L Thoracentesis today 6-1 , 1000 cc serosanguineous fluid, s/p AV fistulogram, [employer] cephalic vein , f/u CT Chest post dialysis in am , L AV fistula patent to be use for dialysis in am , R Pleural fluid 5-30 transudate by TP, LDH , C/S neg , L pleural fluid borderline exudate by LDH , f /u C/S , Cytology
[2018-04-07] MEDS: Albuterol-Ipratrop 3 mg / 0.5 (3 ml) UD INH SCH ×4 (00:03→23:17)
[2018-04-07 07:29] LABS: HEMOGLOBIN 9.7 g/dL (12.0-18.0); MEAN CELL VOLUME 102.8 fl (80.0-94.0); RBC 2.86 Mil/uL (4.40-5.90); RED CELL DISTRIBUTION WIDTH 18.1 % (11.5-14.5); WHITE BLOOD COUNT 8.4 K/uL (4.8-10.8)
[2018-04-07 07:41] LABS: ALB/GLOB RATIO 1.2 (1.0-2.1); ALBUMIN 3.4 g/dL (3.5-5.0); CALCIUM 6.8 mg/dL (8.4-10.2)
[2018-04-07] MEDS: Fluticasone-Salmeterol 500-50mcg Diskus INH SCH ×2 (09:10→21:23)
[2018-04-07] MEDS: Epoetin Alfa 4000 UNIT/ML Inj IV SCH (09:15)
[2018-04-07] MEDS: guaiFENesin-DM 600-30 mg ER Tab PO PRN ×2 (09:16→17:12)
--- NOTE | 2018-04-07 10:42 | CP.PCM.PN ---
Subjective - Date & Time of Evaluation Date of Evaluation: 04/07/18 Time of Evaluation: 10:42 - Subjective Subjective: Yesterday had L thoracentesis yesterday and a fistulogram yesterday. No acute overnight events. This morning pt was seen and examined by bedside. Looks comfortable. States that he was very uncomfortable after the thoracentesis. Breathing has improved, no chest pain. [facility] [id number] Objective - Vital Signs/Intake and Output Vital Signs (last 24 hours): Temp Pulse Resp BP Pulse Ox 98.5 F 77 16 117/43 L 95 04/07/18 08:02 04/07/18 09:13 04/07/18 08:02 04/07/18 09:13 04/07/18 08:02 - Medications Medications: Current Medications Albuterol/Ipratropium (Duoneb 3 Mg/0.5 Mg (3 Ml) Ud) 3 ml INH RQ8 [facility] Last Admin: 04/07/18 07:15 Dose: 3 ml Albuterol/Ipratropium (Duoneb 3 Mg/0.5 Mg (3 Ml) Ud) 3 ml INH RQ4 PRN PRN Reason: Shortness of Breath Aspirin (Aspirin Chewable) 81 mg PO DAILY [facility] Last Admin: 04/07/18 09:11 Dose: 81 mg Atorvastatin Calcium (Lipitor) 20 mg PO DAILY@2200 [facility] Last Admin: 04/06/18 21:20 Dose: 20 mg Cinacalcet (Sensipar) 30 mg PO DAILY [facility] Last Admin: 04/06/18 09:41 Dose: 30 mg Clopidogrel Bisulfate (Plavix) 75 mg PO DAILY [facility] Last Admin: 04/07/18 09:14 Dose: 75 mg Epoetin José Manuel (Procrit) 4,000 unit IV TTS [facility] Last Admin: 04/07/18 09:15 Dose: 4,000 unit Famotidine (Pepcid) 20 mg PO BID [facility] Last Admin: 04/07/18 09:14 Dose: 20 mg Furosemide (Lasix) 20 mg IVP BID [facility] Last Admin: 04/07/18 09:13 Dose: Not Given Guaifenesin/Dextromethorphan (Mucinex-Dm 600-30 Mg) 1 tab PO BID PRN PRN Reason: Cough Last Admin: 04/07/18 09:16 Dose: 1 tab Heparin Sodium (Porcine) (Heparin) 5,000 units SC Q8 [facility] PRN Reason: Protocol Last Admin: 04/03/18 09:45 Dose: 5,000 units Metoprolol Tartrate (Lopressor) 12.5 mg PO Q12 [facility] Last Admin: 04/07/18 09:13 Dose: Not Given Nitroglycerin (Nitrostat Sl Tab) 0.4 mg SL Q5M PRN PRN Reason: chest pain Last Admin: 04/04/18 04:27 Dose: 0.4 mg Fluticasone/Salmeterol (Advair Diskus 500/50) 1 puff INH Q12 [facility] Last Admin: 04/07/18 09:10 Dose: 1 puff Sertraline HCl (Zoloft) 25 mg PO HS [facility] Last Admin: 04/06/18 21:30 Dose: 25 mg Sevelamer HCl (Renagel) 1,600 mg PO TID [facility] Last Admin: 04/07/18 09:15 Dose: 1,600 mg - Labs Labs: 04/07/18 06:20 04/07/18 06:20 PT 11.0 Seconds (9.8-13.1) 04/04/18 04:25 INR 1.0 (0.9-1.2) 04/04/18 04:25 APTT 27.2 Seconds (25.6-37.1) 04/04/18 04:25 - Constitutional Appears: No Acute Distress - Head Exam Head Exam: ATRAUMATIC, NORMAL INSPECTION - Eye Exam Eye Exam: EOMI - ENT Exam ENT Exam: Mucous Membranes Moist - Respiratory Exam Respiratory Exam: Clear to Ausculation Bilateral, NORMAL BREATHING PATTERN. absent: Wheezes - Cardiovascular Exam Cardiovascular Exam: REGULAR RHYTHM, +S1, +S2 - GI/Abdominal Exam GI & Abdominal Exam: Soft, Normal Bowel Sounds. absent: Tenderness - Extremities Exam Extremities Exam: Full ROM, Normal Inspection. 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 Pleural effusion B/L -dyspnea improving -Has preserved EF on last echo -ProBNP on admission is 41,200. No pedal edema -CT of chest: IMPRESSION: Bilateral pleural effusions left larger than right. Underlying compressive atelectasis primarily affecting both lower lobes. Multifocal primarily upper lobe alveolar infiltrates likely infectious/ inflammatory. Pulmonary edema is a less likely consideration. -pulmonary on board -repeat CT pending -IR: right sided thoracentesis (04/04) showed 900 cc. L thoracentesis (04/06) 1000cc of sero-sangunious fluid. -R thoracentesis fluid; no fungal growth, no mycobacterium and no culture growth x 24 hrs- follow up. Per Light's criteria, effusion fluid is transudative. Fluid pathology neg for malignancy. -L thoracentesis: fluid culture pending. Per light's criteria fluid is exudate ( LDH fluid/LDH serum--0.68). Chest pain - Resolved, not present at this time - ProBNP on admission is 41,200. No pedal edema. - Last echo 10/16/17: LV EF 55%, borderline dilated LV, severe Aortic regurgitation, severe mitral regurgitation, mild tricuspid regurgitation. - Cardiac cath 10/17/17: has 60-70% stenosis of a small Ramus branch of LAD ( otherwise mild lesions detected) - Troponin x 3 neg - EKG: PVC's and anterolateral ST inversion new compared to old EKG - Echo on 04/03/18: LV is severely dilated. EF 60-65%. Severe mitral regurgitation, severe aortic regurgitation and moderate tricuspid regurgitation. - Cardio consulted, appreciate recommendations, plan for cath in the future. To be seen by Cardiology on Monday. Dyspnea on extertion: -Multifactorial likely secondary to COPD exacerbation and CHF -Continue 20 mg IV Lasix BID COPD (chronic obstructive pulmonary disease) with mild exacerbation -No wheezing/rhonchi noted on exam, sob probably secondary to fluid in lungs -Chest X Ray: small left sided effusion -Repeat CXR on 03/31/18: Moderate pulmonary venous congestion and small left pleural effusion. -c/w Duonebs q8 -C/w advair -Continue prednisone 40mg PO daily (day 8) Severe aortic regurgitation and Mitral regurgitation -Pending evaluation at [facility] for valve replacement ESRD (end stage renal disease) -HD yesterday with new non-tunnelled HD catheter -On HD T//Mon -Left AV shunt clotted; fistulogram 04/06 with IR. An occlusion was noted in the fistula, underwent thrombectomy with IR. -Nephrology-Dr. 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
--- NOTE | 2018-04-07 14:09 | CP.PCM.PN ---
Subjective - Date & Time of Evaluation Date of Evaluation: 04/07/18 Time of Evaluation: 14:06 - Subjective Subjective: Renal Follow up S: seen and examined no complaints pe: vs as below gen: nad sclera: anicteric op: clear neck: supple no thyromegaly cv: +S1+s2 lungs: cta abd: soft no organomegaly ext: no edema neuro: A+OX3 psych: nml affect skin no rash labs reviewed imp: ESRD/ clotted avf/ anemia/ secondary hyperparathyroid / hypertensive kidney disease plan: hd today to use AVF s/p fistulogram cont bp meds continue epo continue phos binders Objective - Vital Signs/Intake and Output Vital Signs (last 24 hours): Temp Pulse Resp BP Pulse Ox 98.2 F 80 16 123/41 L 96 04/07/18 12:20 04/07/18 12:20 04/07/18 12:20 04/07/18 12:20 04/07/18 12:20 - Medications Medications: Current Medications Albuterol/Ipratropium (Duoneb 3 Mg/0.5 Mg (3 Ml) Ud) 3 ml INH RQ8 [facility] Last Admin: 04/07/18 07:15 Dose: 3 ml Albuterol/Ipratropium (Duoneb 3 Mg/0.5 Mg (3 Ml) Ud) 3 ml INH RQ4 PRN PRN Reason: Shortness of Breath Aspirin (Aspirin Chewable) 81 mg PO DAILY [facility] Last Admin: 04/07/18 09:11 Dose: 81 mg Atorvastatin Calcium (Lipitor) 20 mg PO DAILY@2200 [facility] Last Admin: 04/06/18 21:20 Dose: 20 mg Cinacalcet (Sensipar) 30 mg PO DAILY [facility] Last Admin: 04/07/18 13:37 Dose: 30 mg Clopidogrel Bisulfate (Plavix) 75 mg PO DAILY [facility] Last Admin: 04/07/18 09:14 Dose: 75 mg Epoetin José Manuel (Procrit) 4,000 unit IV TTS [facility] Last Admin: 04/07/18 09:15 Dose: 4,000 unit Famotidine (Pepcid) 20 mg PO BID [facility] Last Admin: 04/07/18 09:14 Dose: 20 mg Furosemide (Lasix) 20 mg IVP BID [facility] Last Admin: 04/07/18 09:13 Dose: Not Given Guaifenesin/Dextromethorphan (Mucinex-Dm 600-30 Mg) 1 tab PO BID PRN PRN Reason: Cough Last Admin: 04/07/18 09:16 Dose: 1 tab Heparin Sodium (Porcine) (Heparin) 5,000 units SC Q8 [facility] PRN Reason: Protocol Last Admin: 04/03/18 09:45 Dose: 5,000 units Metoprolol Tartrate (Lopressor) 12.5 mg PO Q12 [facility] Last Admin: 04/07/18 09:13 Dose: Not Given Nitroglycerin (Nitrostat Sl Tab) 0.4 mg SL Q5M PRN PRN Reason: chest pain Last Admin: 04/04/18 04:27 Dose: 0.4 mg Fluticasone/Salmeterol (Advair Diskus 500/50) 1 puff INH Q12 [facility] Last Admin: 04/07/18 09:10 Dose: 1 puff Sertraline HCl (Zoloft) 25 mg PO HS [facility] Last Admin: 04/06/18 21:30 Dose: 25 mg Sevelamer HCl (Renagel) 1,600 mg PO TID [facility] Last Admin: 04/07/18 13:37 Dose: 1,600 mg - Labs Labs: 04/07/18 06:20 04/07/18 06:20 PT 11.0 Seconds (9.8-13.1) 04/04/18 04:25 INR 1.0 (0.9-1.2) 04/04/18 04:25 APTT 27.2 Seconds (25.6-37.1) 04/04/18 04:25
--- NOTE | 2018-04-07 16:00 | CP.PCM.PN ---
Subjective - Date & Time of Evaluation Date of Evaluation: 04/07/18 Time of Evaluation: 15:00 - Subjective Subjective: F/U S/P L Thoracentesis Pt just returned from L sided Thoracentesis and also s/p L arm AV fistulogram angioplasty, cough with scanty yellowish flegm , no hemoptysis , mild L chest wall pain post thoracentesis , no SOB,, no GUIDRY. Objective - Vital Signs/Intake and Output Vital Signs (last 24 hours): Temp Pulse Resp BP Pulse Ox 98.2 F 80 16 123/41 L 96 04/07/18 12:20 04/07/18 12:20 04/07/18 12:20 04/07/18 12:20 04/07/18 12:20 - Medications Medications: Current Medications Albuterol/Ipratropium (Duoneb 3 Mg/0.5 Mg (3 Ml) Ud) 3 ml INH RQ8 [facility] Last Admin: 04/07/18 07:15 Dose: 3 ml Albuterol/Ipratropium (Duoneb 3 Mg/0.5 Mg (3 Ml) Ud) 3 ml INH RQ4 PRN PRN Reason: Shortness of Breath Aspirin (Aspirin Chewable) 81 mg PO DAILY [facility] Last Admin: 04/07/18 09:11 Dose: 81 mg Atorvastatin Calcium (Lipitor) 20 mg PO DAILY@2200 [facility] Last Admin: 04/06/18 21:20 Dose: 20 mg Cinacalcet (Sensipar) 30 mg PO DAILY [facility] Last Admin: 04/07/18 13:37 Dose: 30 mg Clopidogrel Bisulfate (Plavix) 75 mg PO DAILY [facility] Last Admin: 04/07/18 09:14 Dose: 75 mg Epoetin José Manuel (Procrit) 4,000 unit IV TTS [facility] Last Admin: 04/07/18 09:15 Dose: 4,000 unit Famotidine (Pepcid) 20 mg PO BID [facility] Last Admin: 04/07/18 09:14 Dose: 20 mg Furosemide (Lasix) 20 mg IVP BID [facility] Last Admin: 04/07/18 09:13 Dose: Not Given Guaifenesin/Dextromethorphan (Mucinex-Dm 600-30 Mg) 1 tab PO BID PRN PRN Reason: Cough Last Admin: 04/07/18 09:16 Dose: 1 tab Heparin Sodium (Porcine) (Heparin) 5,000 units SC Q8 [facility] PRN Reason: Protocol Last Admin: 04/03/18 09:45 Dose: 5,000 units Metoprolol Tartrate (Lopressor) 12.5 mg PO Q12 [facility] Last Admin: 04/07/18 09:13 Dose: Not Given Nitroglycerin (Nitrostat Sl Tab) 0.4 mg SL Q5M PRN PRN Reason: chest pain Last Admin: 04/04/18 04:27 Dose: 0.4 mg Fluticasone/Salmeterol (Advair Diskus 500/50) 1 puff INH Q12 [facility] Last Admin: 04/07/18 09:10 Dose: 1 puff Sertraline HCl (Zoloft) 25 mg PO HS [facility] Last Admin: 04/06/18 21:30 Dose: 25 mg Sevelamer HCl (Renagel) 1,600 mg PO TID [facility] Last Admin: 04/07/18 13:37 Dose: 1,600 mg - Labs Labs: 04/07/18 06:20 04/07/18 06:20 PT 11.0 Seconds (9.8-13.1) 04/04/18 04:25 INR 1.0 (0.9-1.2) 04/04/18 04:25 APTT 27.2 Seconds (25.6-37.1) 04/04/18 04:25 - Constitutional Appears: No Acute Distress - Head Exam Head Exam: NORMAL INSPECTION - Eye Exam Eye Exam: PERRL - ENT Exam ENT Exam: Normal Exam - Neck Exam Additional comments: HD Cath RIJ - Respiratory Exam Respiratory Exam: Decreased Breath Sounds (L base), Rhonchi (few scattered) Additional comments: mild tenderness L chest wall area of thoracentesis - Cardiovascular Exam Cardiovascular Exam: REGULAR RHYTHM, Murmur - GI/Abdominal Exam GI & Abdominal Exam: Soft, Hypoactive Bowel Sounds, Normal Bowel Sounds - Extremities Exam Additional comments: L arm AV fistula working with bruit and thrill. HD cath RIJ. - Back Exam Back Exam: NORMAL INSPECTION - Neurological Exam Neurological Exam: Alert, Oriented x3. absent: Motor Sensory Deficit - Psychiatric Exam Psychiatric exam: Normal Affect - Skin Skin Exam: Warm Assessment and Plan (1) Pleural effusion, bilateral Status: Acute (2) Status post thoracentesis Status: Acute (3) SHERRY (acute kidney injury) Status: Acute (4) CKD (chronic kidney disease) requiring chronic dialysis Status: Acute (5) COPD (chronic obstructive pulmonary disease) Status: Chronic (6) Multilobar lung infiltrate Status: Acute - Assessment and Plan (Free Text) Plan: CXR , continue current Tx.
--- NOTE | 2018-04-07 16:57 | RAD ---
PROCEDURE: CHEST RADIOGRAPH, 1 VIEW HISTORY: SOB COMPARISON: Comparison is made with 03/31/2018 FINDINGS: LUNGS: Again seen is partial atelectasis of the left lower lobe likely due to pleural effusion. Interval mild to moderate improvement in the pulmonary vascular congestion compared to the previous exam. . PLEURA: Persistent left pleural effusion. No evidence of significant right pleural effusion CARDIOVASCULAR: The cardiac silhouette is upper normal limit in size. OSSEOUS STRUCTURES: No significant abnormalities. VISUALIZED UPPER ABDOMEN: Normal. OTHER FINDINGS: Interval insertion of right sided hemodialysis catheter since the previous exam. IMPRESSION: Interval improvement in the lungs since the previous study. Persistent left pleural effusion.
[2018-04-08] MEDS: Albuterol-Ipratrop 3 mg / 0.5 (3 ml) UD INH SCH ×2 (07:49→15:33)
[2018-04-08 08:07] LABS: HEMOGLOBIN 9.1 g/dL (12.0-18.0); MEAN CELL VOLUME 102.2 fl (80.0-94.0); MEAN CORPUSCULAR HEMOGLOBIN 33.8 pg (27.0-31.0); MEAN CORPUSCULAR HGB CONC 33.1 g/dL (33.0-37.0); RBC 2.68 Mil/uL (4.40-5.90); RED CELL DISTRIBUTION WIDTH 18.1 % (11.5-14.5); WHITE BLOOD COUNT 6.4 K/uL (4.8-10.8)
[2018-04-08 08:18] LABS: ALB/GLOB RATIO 1.2 (1.0-2.1); ALBUMIN 3.4 g/dL (3.5-5.0); CALCIUM 7.2 mg/dL (8.4-10.2)
[2018-04-08] MEDS: Fluticasone-Salmeterol 500-50mcg Diskus INH SCH ×2 (08:49→21:28)
[2018-04-08] MEDS: guaiFENesin-DM 600-30 mg ER Tab PO PRN (08:53)
--- NOTE | 2018-04-08 09:00 | CT ---
PROCEDURE: CT Chest without contrast HISTORY: follow up post thoracentesis COMPARISON: Comparison is made with the previous study dated 04/03/2018 TECHNIQUE: Contiguous axial images were obtained through the chest without intravenous contrast enhancement. Sagittal and coronal reconstructions were performed. Radiation dose (DLP): 290.74 mGy-cm. This CT exam was performed using one or more of the following dose reduction techniques: Automated exposure control, adjustment of the mA and/or kV according to patient size, and/or use of iterative reconstruction technique. FINDINGS: LUNGS: There is interval partial re-expansion of the right lower lobe. There is also partial Roberto expansion of the superior segment of the left lower lobe. No significant interval change in the upper lobes since the previous exam. Mild emphysematous changes are again noted. Interval improvement in the previously seen moderate pulmonary congestion since the previous study. Otherwise no significant interval change in the upper lobes. MEDIASTINUM: Unremarkable thoracic aorta. No aneurysm. The heart is moderately enlarged. The main pulmonary artery is prominent in size. No lymphadenopathy. PLEURA: There is residual small right pleural effusion. There is also residual small left pleural effusion. The left pleural effusion is larger than the right. No evidence of pneumothorax BONES: No fracture. No destructive lesion. UPPER ABDOMEN: Grossly unremarkable. OTHER FINDINGS: None. IMPRESSION: Small bilateral pleural effusion larger on the left. Interval re-expansion of the right lower lobe and mild re-expansion of the left lower lobe. Interval improvement in the pulmonary congestion since the previous study.
--- NOTE | 2018-04-08 10:52 | CP.PCM.PN ---
Subjective - Date & Time of Evaluation Date of Evaluation: 04/08/18 Time of Evaluation: 10:50 - Subjective Subjective: No acute overnight events. This morning pt was seen and examined by bedside. States that he some left sided discomfort. Breathing has improved, no chest pain. Objective - Vital Signs/Intake and Output Vital Signs (last 24 hours): Temp Pulse Resp BP Pulse Ox 98.5 F 109 H 18 132/58 L 97 04/08/18 08:28 04/08/18 09:00 04/08/18 08:28 04/08/18 09:02 04/08/18 08:28 - Medications Medications: Current Medications Albuterol/Ipratropium (Duoneb 3 Mg/0.5 Mg (3 Ml) Ud) 3 ml INH RQ8 [facility] Last Admin: 04/08/18 07:49 Dose: 3 ml Albuterol/Ipratropium (Duoneb 3 Mg/0.5 Mg (3 Ml) Ud) 3 ml INH RQ4 PRN PRN Reason: Shortness of Breath Aspirin (Aspirin Chewable) 81 mg PO DAILY [facility] Last Admin: 04/08/18 08:50 Dose: 81 mg Atorvastatin Calcium (Lipitor) 20 mg PO DAILY@2200 [facility] Last Admin: 04/07/18 21:24 Dose: 20 mg Cinacalcet (Sensipar) 30 mg PO DAILY [facility] Last Admin: 04/08/18 08:53 Dose: 30 mg Clopidogrel Bisulfate (Plavix) 75 mg PO DAILY [facility] Last Admin: 04/08/18 08:53 Dose: 75 mg Epoetin José Manuel (Procrit) 4,000 unit IV TTS [facility] Last Admin: 04/07/18 09:15 Dose: 4,000 unit Famotidine (Pepcid) 20 mg PO BID [facility] Last Admin: 04/08/18 08:53 Dose: 20 mg Furosemide (Lasix) 20 mg IVP BID [facility] Last Admin: 04/08/18 09:02 Dose: 20 mg Guaifenesin/Dextromethorphan (Mucinex-Dm 600-30 Mg) 1 tab PO BID PRN PRN Reason: Cough Last Admin: 04/08/18 08:53 Dose: 1 tab Heparin Sodium (Porcine) (Heparin) 5,000 units SC Q8 [facility] PRN Reason: Protocol Metoprolol Tartrate (Lopressor) 12.5 mg PO Q12 [facility] Last Admin: 04/08/18 08:51 Dose: 12.5 mg Nitroglycerin (Nitrostat Sl Tab) 0.4 mg SL Q5M PRN PRN Reason: chest pain Last Admin: 04/04/18 04:27 Dose: 0.4 mg Fluticasone/Salmeterol (Advair Diskus 500/50) 1 puff INH Q12 [facility] Last Admin: 04/08/18 08:49 Dose: 1 puff Sertraline HCl (Zoloft) 25 mg PO HS [facility] Last Admin: 04/07/18 21:23 Dose: 25 mg Sevelamer HCl (Renagel) 1,600 mg PO TID [facility] Last Admin: 04/08/18 08:52 Dose: 1,600 mg - Labs Labs: 04/08/18 07:10 04/08/18 07:10 PT 11.0 Seconds (9.8-13.1) 04/04/18 04:25 INR 1.0 (0.9-1.2) 04/04/18 04:25 APTT 27.2 Seconds (25.6-37.1) 04/04/18 04:25 - Constitutional Appears: No Acute Distress - Head Exam Head Exam: ATRAUMATIC - Eye Exam Eye Exam: EOMI Pupil Exam: PERRL - ENT Exam ENT Exam: Mucous Membranes Moist - Neck Exam Neck Exam: Full ROM - Respiratory Exam Respiratory Exam: Rhonchi (some rhonchi on left). absent: Accessory Muscle Use , Decreased Breath Sounds, Rales - Cardiovascular Exam Cardiovascular Exam: +S1, +S2 - GI/Abdominal Exam GI & Abdominal Exam: Soft. absent: Tenderness - Extremities Exam Extremities Exam: Full ROM. 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 Pleural effusion B/L -dyspnea much improved -Has preserved EF on last echo -ProBNP on admission is 41,200. No pedal edema -CT of chest: IMPRESSION: Bilateral pleural effusions left larger than right. Underlying compressive atelectasis primarily affecting both lower lobes. Multifocal primarily upper lobe alveolar infiltrates likely infectious/ inflammatory. Pulmonary edema is a less likely consideration. -pulmonary on board -repeat CT pending -IR: right sided thoracentesis (04/04) showed 900 cc. L thoracentesis (04/06) 1000cc of sero-sangunious fluid. -R thoracentesis fluid; no fungal growth, no mycobacterium and no culture growth x 24 hrs- follow up. Per Light's criteria, effusion fluid is transudative. Fluid pathology neg for malignancy. -L thoracentesis: fluid culture pending. Per light's criteria fluid is exudate ( LDH fluid/LDH serum--0.68). Chest pain - Resolved, not present at this time - ProBNP on admission is 41,200. No pedal edema. - Last echo 10/16/17: LV EF 55%, borderline dilated LV, severe Aortic regurgitation, severe mitral regurgitation, mild tricuspid regurgitation. - Cardiac cath 10/17/17: has 60-70% stenosis of a small Ramus branch of LAD ( otherwise mild lesions detected) - Troponin x 3 neg - EKG: PVC's and anterolateral ST inversion new compared to old EKG - Echo on 04/03/18: LV is severely dilated. EF 60-65%. Severe mitral regurgitation, severe aortic regurgitation and moderate tricuspid regurgitation. - Cardio consulted, appreciate recommendations, plan for cath in the future. To be seen by Cardiology on Monday. Dyspnea on extertion: -Multifactorial likely secondary to COPD exacerbation and CHF -Continue 20 mg IV Lasix BID COPD (chronic obstructive pulmonary disease) with mild exacerbation -No wheezing/rhonchi noted on exam, sob probably secondary to fluid in lungs -Chest X Ray: small left sided effusion -Repeat CXR on 03/31/18: Moderate pulmonary venous congestion and small left pleural effusion. -c/w Duonebs q8 -C/w advair -Continue prednisone 40mg PO daily (day 8) Severe aortic regurgitation and Mitral regurgitation -Pending evaluation at [facility] for valve replacement ESRD (end stage renal disease) -HD yesterday with new non-tunnelled HD catheter -On HD T/TH/Sat -Left AV shunt clotted; fistulogram 04/06 with IR. An occlusion was noted in the fistula, underwent thrombectomy with IR. -Nephrology-Dr. 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
--- NOTE | 2018-04-08 14:26 | CP.PCM.PN ---
Subjective - Date & Time of Evaluation Date of Evaluation: 04/08/18 Time of Evaluation: 14:00 - Subjective Subjective: S/P Thoracentesis b/l. no , SOB ,occasional cough with scanty amount of flegm ,mild L chest wall pain Objective - Vital Signs/Intake and Output Vital Signs (last 24 hours): Temp Pulse Resp BP Pulse Ox 98.5 F 73 18 132/59 L 100 04/08/18 12:32 04/08/18 12:32 04/08/18 12:32 04/08/18 12:32 04/08/18 12:32 - Medications Medications: Current Medications Albuterol/Ipratropium (Duoneb 3 Mg/0.5 Mg (3 Ml) Ud) 3 ml INH RQ8 [facility] Last Admin: 04/08/18 07:49 Dose: 3 ml Aspirin (Aspirin Chewable) 81 mg PO DAILY [facility] Last Admin: 04/08/18 08:50 Dose: 81 mg Atorvastatin Calcium (Lipitor) 20 mg PO DAILY@2200 [facility] Last Admin: 04/07/18 21:24 Dose: 20 mg Cinacalcet (Sensipar) 30 mg PO DAILY [facility] Last Admin: 04/08/18 08:53 Dose: 30 mg Clopidogrel Bisulfate (Plavix) 75 mg PO DAILY [facility] Last Admin: 04/08/18 08:53 Dose: 75 mg Epoetin José Manuel (Procrit) 4,000 unit IV TTS [facility] Last Admin: 04/07/18 09:15 Dose: 4,000 unit Famotidine (Pepcid) 20 mg PO BID [facility] Last Admin: 04/08/18 08:53 Dose: 20 mg Furosemide (Lasix) 20 mg IVP BID [facility] Last Admin: 04/08/18 09:02 Dose: 20 mg Guaifenesin/Dextromethorphan (Mucinex-Dm 600-30 Mg) 1 tab PO BID PRN PRN Reason: Cough Last Admin: 04/08/18 08:53 Dose: 1 tab Heparin Sodium (Porcine) (Heparin) 5,000 units SC Q8 [facility] PRN Reason: Protocol Last Admin: 04/08/18 11:09 Dose: 5,000 units Metoprolol Tartrate (Lopressor) 12.5 mg PO Q12 [facility] Last Admin: 04/08/18 08:51 Dose: 12.5 mg Nitroglycerin (Nitrostat Sl Tab) 0.4 mg SL Q5M PRN PRN Reason: chest pain Last Admin: 04/04/18 04:27 Dose: 0.4 mg Fluticasone/Salmeterol (Advair Diskus 500/50) 1 puff INH Q12 [facility] Last Admin: 04/08/18 08:49 Dose: 1 puff Sertraline HCl (Zoloft) 25 mg PO HS [facility] Last Admin: 04/07/18 21:23 Dose: 25 mg Sevelamer HCl (Renagel) 1,600 mg PO TID [facility] Last Admin: 04/08/18 13:46 Dose: 1,600 mg - Labs Labs: 04/08/18 07:10 04/08/18 07:10 PT 11.0 Seconds (9.8-13.1) 04/04/18 04:25 INR 1.0 (0.9-1.2) 04/04/18 04:25 APTT 27.2 Seconds (25.6-37.1) 04/04/18 04:25 - Constitutional Appears: No Acute Distress - Head Exam Head Exam: NORMAL INSPECTION - Eye Exam Eye Exam: PERRL - ENT Exam ENT Exam: Normal Exam - Neck Exam Additional comments: HD Cath RIJ - Respiratory Exam Respiratory Exam: Decreased Breath Sounds (L base), Rhonchi (otis scattered) Additional comments: mild L chest wall pain area of thoracentesis - Cardiovascular Exam Cardiovascular Exam: REGULAR RHYTHM - GI/Abdominal Exam GI & Abdominal Exam: Soft, Normal Bowel Sounds - Extremities Exam Additional comments: L arm AV fistula working with bruit and thrill. - Back Exam Back Exam: NORMAL INSPECTION - Neurological Exam Neurological Exam: Alert, Oriented x3. absent: Motor Sensory Deficit - Psychiatric Exam Psychiatric exam: Normal Mood - Skin Skin Exam: Warm Assessment and Plan (1) Pleural effusion, bilateral Status: Acute (2) Status post thoracentesis Status: Acute (3) SHERRY (acute kidney injury) Status: Acute (4) CKD (chronic kidney disease) requiring chronic dialysis Status: Acute (5) COPD (chronic obstructive pulmonary disease) Status: Chronic (6) Multilobar lung infiltrate Status: Acute - Assessment and Plan (Free Text) Plan: CXR improved vascular congestion , persistant L pleural effusion post- thoracentesis , no R pleural effusion post R thoracentesis , pulmonary congestion , R L LL atelectasis improved post thoracentesis and post-dialysis , continue dialysis and current treatment
[2018-04-09] MEDS: Albuterol-Ipratrop 3 mg / 0.5 (3 ml) UD INH SCH ×4 (00:28→23:19)
[2018-04-09 05:22] LABS: MEAN CELL VOLUME 102.9 fl (80.0-94.0); MEAN CORPUSCULAR HEMOGLOBIN 34.4 pg (27.0-31.0); MEAN CORPUSCULAR HGB CONC 33.4 g/dL (33.0-37.0); RBC 2.61 Mil/uL (4.40-5.90); RED CELL DISTRIBUTION WIDTH 17.6 % (11.5-14.5); WHITE BLOOD COUNT 6.9 K/uL (4.8-10.8)
[2018-04-09 05:52] LABS: ALB/GLOB RATIO 1.2 (1.0-2.1); ALBUMIN 3.3 g/dL (3.5-5.0); CALCIUM 6.9 mg/dL (8.4-10.2)
--- NOTE | 2018-04-09 08:44 | CP.PCM.PN ---
Subjective - Date & Time of Evaluation Date of Evaluation: 04/09/18 Time of Evaluation: 08:41 - Subjective Subjective: No acute overnight events. Pt is seen and examined by bedside this AM. States that he has pain in thoracentesis site with cough and deep breaths. Pt encouraged to continue ambulating and taking deep breaths. Breathing better then previously and occasionally using O2 NC at night. Denies dyspnea, n/v/d/c, chills and fever. Objective - Vital Signs/Intake and Output Vital Signs (last 24 hours): Temp Pulse Resp BP Pulse Ox 98.3 F 88 18 134/51 L 98 04/09/18 07:59 04/09/18 07:59 04/09/18 07:59 04/09/18 07:59 04/09/18 07:59 - Medications Medications: Current Medications Albuterol/Ipratropium (Duoneb 3 Mg/0.5 Mg (3 Ml) Ud) 3 ml INH RQ8 [facility] Last Admin: 04/09/18 07:33 Dose: 3 ml Aspirin (Aspirin Chewable) 81 mg PO DAILY [facility] Last Admin: 04/08/18 08:50 Dose: 81 mg Atorvastatin Calcium (Lipitor) 20 mg PO DAILY@2200 [facility] Last Admin: 04/08/18 21:27 Dose: 20 mg Cinacalcet (Sensipar) 30 mg PO DAILY [facility] Last Admin: 04/08/18 08:53 Dose: 30 mg Clopidogrel Bisulfate (Plavix) 75 mg PO DAILY [facility] Last Admin: 04/08/18 08:53 Dose: 75 mg Docusate Sodium (Colace) 100 mg PO BID [facility] Last Admin: 04/08/18 16:55 Dose: 100 mg Epoetin José Manuel (Procrit) 4,000 unit IV TTS [facility] Last Admin: 04/07/18 09:15 Dose: 4,000 unit Famotidine (Pepcid) 20 mg PO BID [facility] Last Admin: 04/08/18 16:59 Dose: 20 mg Furosemide (Lasix) 20 mg IVP BID [facility] Last Admin: 04/08/18 17:02 Dose: 20 mg Guaifenesin/Dextromethorphan (Mucinex-Dm 600-30 Mg) 1 tab PO BID PRN PRN Reason: Cough Last Admin: 04/08/18 08:53 Dose: 1 tab Heparin Sodium (Porcine) (Heparin) 5,000 units SC Q8 [facility] PRN Reason: Protocol Last Admin: 04/09/18 01:11 Dose: 5,000 units Lactulose (Enulose) 20 gm PO DAILY PRN PRN Reason: Constipation Last Admin: 04/08/18 16:56 Dose: 20 gm Metoprolol Tartrate (Lopressor) 12.5 mg PO Q12 [facility] Last Admin: 04/08/18 21:27 Dose: 12.5 mg Nitroglycerin (Nitrostat Sl Tab) 0.4 mg SL Q5M PRN PRN Reason: chest pain Last Admin: 04/09/18 02:19 Dose: 0.4 mg Fluticasone/Salmeterol (Advair Diskus 500/50) 1 puff INH Q12 [facility] Last Admin: 04/08/18 21:28 Dose: 1 puff Sertraline HCl (Zoloft) 25 mg PO HS [facility] Last Admin: 04/08/18 21:26 Dose: 25 mg Sevelamer HCl (Renagel) 1,600 mg PO TID [facility] Last Admin: 04/08/18 16:59 Dose: 1,600 mg - Labs Labs: 04/09/18 04:20 04/09/18 04:20 PT 11.0 Seconds (9.8-13.1) 04/04/18 04:25 INR 1.0 (0.9-1.2) 04/04/18 04:25 APTT 27.2 Seconds (25.6-37.1) 04/04/18 04:25 - Constitutional Appears: No Acute Distress - Head Exam Head Exam: ATRAUMATIC, NORMAL INSPECTION - Eye Exam Eye Exam: EOMI, Normal appearance - ENT Exam ENT Exam: Mucous Membranes Moist Additional comments: R IJ cath - Neck Exam Neck Exam: Full ROM - Respiratory Exam Respiratory Exam: Decreased Breath Sounds (b/l in the lower lobes ), Rhonchi ( in the lower lobes b/l. L>R), NORMAL BREATHING PATTERN - Cardiovascular Exam Cardiovascular Exam: REGULAR RHYTHM, +S1, +S2, Murmur - GI/Abdominal Exam GI & Abdominal Exam: Soft, Normal Bowel Sounds. absent: Tenderness - Extremities Exam Extremities Exam: Full ROM. 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 Pleural effusion B/L -dyspnea much improved -Has preserved EF on last echo -ProBNP on admission is 41,200. No pedal edema -CT of chest: IMPRESSION: Bilateral pleural effusions left larger than right. Underlying compressive atelectasis primarily affecting both lower lobes. Multifocal primarily upper lobe alveolar infiltrates likely infectious/ inflammatory. Pulmonary edema is a less likely consideration. -pulmonary on board -CXR (04/07/18): interval improvement in the lungs since previous study. Persistent left pleural effusion. -IR: right sided thoracentesis (04/04) showed 900 cc. L thoracentesis (04/06) 1000cc of sero-sangunious fluid. -R thoracentesis fluid; no fungal growth, no mycobacterium and no culture growth x 3 days- follow up. Per Light's criteria, effusion fluid is transudative. Fluid pathology neg for malignancy. -L thoracentesis: fluid culture pending. Per light's criteria fluid is exudative (LDH fluid/LDH serum--0.68). Neg gram stain thus far x 24 hrs. Chest pain - Resolved, not present at this time - ProBNP on admission is 41,200. No pedal edema. - repeat proBNP today - Last echo 10/16/17: LV EF 55%, borderline dilated LV, severe Aortic regurgitation, severe mitral regurgitation, mild tricuspid regurgitation. - Cardiac cath 10/17/17: has 60-70% stenosis of a small Ramus branch of LAD ( otherwise mild lesions detected) - Troponin x 3 neg - EKG: PVC's and anterolateral ST inversion new compared to old EKG - Echo on 04/03/18: LV is severely dilated. EF 60-65%. Severe mitral regurgitation, severe aortic regurgitation and moderate tricuspid regurgitation. - Cardio consulted, appreciate recommendations, plan for cath in the future. Dr. Allen consulted, to be seen by Cardiology. Dyspnea on extertion: -Multifactorial likely secondary to COPD exacerbation and CHF -Continue 20 mg IV Lasix BID COPD (chronic obstructive pulmonary disease) with mild exacerbation -No wheezing/rhonchi noted on exam, sob probably secondary to fluid in lungs -Chest X Ray: small left sided effusion -Repeat CXR on 03/31/18: Moderate pulmonary venous congestion and small left pleural effusion. -c/w Duonebs q8 -C/w advair -Continue prednisone 40mg PO daily (day 10) Severe aortic regurgitation and Mitral regurgitation -Pending evaluation at [facility] for valve replacement ESRD (end stage renal disease) -HD on monday with fistula -On HD //Mon -d/c tunnel cath R IJ today -Left AV shunt clotted; fistulogram 04/06 with IR. An occlusion was noted in the fistula, underwent thrombectomy with IR. -Nephrology- Dr. 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
[2018-04-09] MEDS: Fluticasone-Salmeterol 500-50mcg Diskus INH SCH ×2 (08:59→21:24)
--- NOTE | 2018-04-09 10:37 | CP.PCM.PN ---
Subjective - Date & Time of Evaluation Date of Evaluation: 04/09/18 Time of Evaluation: 10:35 - Subjective Subjective: Patient feeling good Appeared to be comfortable Vital signs stable Objective - Vital Signs/Intake and Output Vital Signs (last 24 hours): Temp Pulse Resp BP Pulse Ox 97.9 F 92 H 18 111/83 99 04/09/18 10:10 04/09/18 10:10 04/09/18 10:10 04/09/18 10:10 04/09/18 10:10 - Medications Medications: Current Medications Albuterol/Ipratropium (Duoneb 3 Mg/0.5 Mg (3 Ml) Ud) 3 ml INH RQ8 [facility] Last Admin: 04/09/18 07:33 Dose: 3 ml Aspirin (Aspirin Chewable) 81 mg PO DAILY [facility] Last Admin: 04/09/18 08:46 Dose: 81 mg Atorvastatin Calcium (Lipitor) 20 mg PO DAILY@2200 [facility] Last Admin: 04/08/18 21:27 Dose: 20 mg Cinacalcet (Sensipar) 30 mg PO DAILY [facility] Last Admin: 04/09/18 08:50 Dose: 30 mg Clopidogrel Bisulfate (Plavix) 75 mg PO DAILY [facility] Last Admin: 04/09/18 08:46 Dose: 75 mg Docusate Sodium (Colace) 100 mg PO BID [facility] Last Admin: 04/09/18 08:50 Dose: 100 mg Epoetin José Manuel (Procrit) 4,000 unit IV TTS [facility] Last Admin: 04/07/18 09:15 Dose: 4,000 unit Famotidine (Pepcid) 20 mg PO BID [facility] Last Admin: 04/09/18 08:49 Dose: 20 mg Furosemide (Lasix) 20 mg IVP BID [facility] Last Admin: 04/09/18 08:54 Dose: 20 mg Guaifenesin/Dextromethorphan (Mucinex-Dm 600-30 Mg) 1 tab PO BID PRN PRN Reason: Cough Last Admin: 04/08/18 08:53 Dose: 1 tab Heparin Sodium (Porcine) (Heparin) 5,000 units SC Q8 [facility] PRN Reason: Protocol Last Admin: 04/09/18 08:50 Dose: 5,000 units Lactulose (Enulose) 20 gm PO DAILY PRN PRN Reason: Constipation Last Admin: 04/08/18 16:56 Dose: 20 gm Metoprolol Tartrate (Lopressor) 12.5 mg PO Q12 [facility] Last Admin: 04/09/18 08:51 Dose: 12.5 mg Nitroglycerin (Nitrostat Sl Tab) 0.4 mg SL Q5M PRN PRN Reason: chest pain Last Admin: 04/09/18 02:19 Dose: 0.4 mg Fluticasone/Salmeterol (Advair Diskus 500/50) 1 puff INH Q12 [facility] Last Admin: 04/09/18 08:59 Dose: 1 puff Sertraline HCl (Zoloft) 25 mg PO HS [facility] Last Admin: 04/08/18 21:26 Dose: 25 mg Sevelamer HCl (Renagel) 1,600 mg PO TID [facility] Last Admin: 04/09/18 08:46 Dose: 1,600 mg - Labs Labs: 04/09/18 04:20 04/09/18 04:20 PT 11.0 Seconds (9.8-13.1) 04/04/18 04:25 INR 1.0 (0.9-1.2) 04/04/18 04:25 APTT 27.2 Seconds (25.6-37.1) 04/04/18 04:25 - Constitutional Appears: No Acute Distress - ENT Exam ENT Exam: Mucous Membranes Moist - Neck Exam Neck Exam: absent: Lymphadenopathy - Respiratory Exam Respiratory Exam: NORMAL BREATHING PATTERN. absent: Rales - GI/Abdominal Exam GI & Abdominal Exam: Soft, Normal Bowel Sounds. absent: Guarding - Extremities Exam Extremities Exam: absent: Calf Tenderness - Back Exam Back Exam: absent: CVA tenderness (L), CVA tenderness (R) - Neurological Exam Neurological Exam: Alert - Psychiatric Exam Psychiatric exam: Normal Affect - Skin Skin Exam: absent: Cyanosis Assessment and Plan (1) CKD (chronic kidney disease) requiring chronic dialysis Assessment & Plan: End stage renal disease patient being dialyze from the left AV shunt Status post thrombectomy of the left AV shunt Patient schedule as per cardiology for further workup To remove the right subclavian catheter because the shunt is working. Status: Acute
--- NOTE | 2018-04-09 11:48 | PCM.SURG1 ---
Surgeon's Initial Post Op Note - Surgeon's Notes Surgeon: Tavares Simeon MD Weaving Teacher: None Type of Anesthesia: Local Pre-Operative Diagnosis: ESRD Operative Findings: indwelling right non-tunnelled HD cath Post-Operative Diagnosis: same Operation Performed: removal of non-tunneled HD cath Specimen/Specimens Removed: n/a Estimated Blood Loss: EBL {In ML}: 0 Date of Surgery/Procedure: 04/09/18 Time of Surgery/Procedure: 10:00
--- NOTE | 2018-04-09 11:57 | US ---
PROCEDURE: Date of procedure: 04/06/2018 Procedure: 1. Ultrasound-guided left thoracentesis, CPT 32152 Medications: 6cc 1% Lidocaine HISTORY: Left pleural effusion, shortness of breath TECHNIQUE: Following informed consent ,the Patients' left chest was marked. Procedure time-out was called, and the patient was placed in the sitting position and limited ultrasound showed a large left effusion. The patient's left back was prepped and draped in the usual sterile fashion. After the skin was anesthetized with lidocaine, a drainage catheter was advanced under ultrasound guidance into the pleural space. Ultrasound-guided thoracentesis was performed. A total of 1100 cubic centimeters of serosanguinous fluid removed without complication. A Xeroform dressing was applied. IMPRESSION: Ultrasound guided left thoracentesis. There were no immediate complications.
--- NOTE | 2018-04-09 16:00 | CP.PCM.PN ---
Subjective - Date & Time of Evaluation Date of Evaluation: 04/09/18 Time of Evaluation: 11:40 - Subjective Subjective: F/U S/P Thoracentesis b/l complaining of chest pain , sharp , retrosternal , relieved inmediately after taking , NTG S/L , no cough , no SOB , GUIDRY Objective - Vital Signs/Intake and Output Vital Signs (last 24 hours): Temp Pulse Resp BP Pulse Ox 98.3 F 111 H 18 119/52 L 96 04/09/18 11:43 04/09/18 11:43 04/09/18 11:43 04/09/18 11:43 04/09/18 11:43 - Medications Medications: Current Medications Albuterol/Ipratropium (Duoneb 3 Mg/0.5 Mg (3 Ml) Ud) 3 ml INH RQ8 [facility] Last Admin: 04/09/18 15:31 Dose: Not Given Aspirin (Aspirin Chewable) 81 mg PO DAILY [facility] Last Admin: 04/09/18 08:46 Dose: 81 mg Atorvastatin Calcium (Lipitor) 20 mg PO DAILY@2200 [facility] Last Admin: 04/08/18 21:27 Dose: 20 mg Cinacalcet (Sensipar) 30 mg PO DAILY [facility] Last Admin: 04/09/18 08:50 Dose: 30 mg Clopidogrel Bisulfate (Plavix) 75 mg PO DAILY [facility] Last Admin: 04/09/18 08:46 Dose: 75 mg Docusate Sodium (Colace) 100 mg PO BID [facility] Last Admin: 04/09/18 08:50 Dose: 100 mg Epoetin José Manuel (Procrit) 4,000 unit IV TTS [facility] Last Admin: 04/07/18 09:15 Dose: 4,000 unit Famotidine (Pepcid) 20 mg PO BID [facility] Last Admin: 04/09/18 08:49 Dose: 20 mg Furosemide (Lasix) 20 mg IVP BID [facility] Last Admin: 04/09/18 08:54 Dose: 20 mg Guaifenesin/Dextromethorphan (Mucinex-Dm 600-30 Mg) 1 tab PO BID PRN PRN Reason: Cough Last Admin: 04/08/18 08:53 Dose: 1 tab Heparin Sodium (Porcine) (Heparin) 5,000 units SC Q8 [facility] PRN Reason: Protocol Last Admin: 04/09/18 08:50 Dose: 5,000 units Lactulose (Enulose) 20 gm PO DAILY PRN PRN Reason: Constipation Last Admin: 04/08/18 16:56 Dose: 20 gm Metoprolol Tartrate (Lopressor) 12.5 mg PO Q12 [facility] Last Admin: 04/09/18 08:51 Dose: 12.5 mg Nitroglycerin (Nitrostat Sl Tab) 0.4 mg SL Q5M PRN PRN Reason: chest pain Last Admin: 04/09/18 11:49 Dose: 0.4 mg Fluticasone/Salmeterol (Advair Diskus 500/50) 1 puff INH Q12 [facility] Last Admin: 04/09/18 08:59 Dose: 1 puff Sertraline HCl (Zoloft) 25 mg PO HS [facility] Last Admin: 04/08/18 21:26 Dose: 25 mg Sevelamer HCl (Renagel) 1,600 mg PO TID [facility] Last Admin: 04/09/18 08:46 Dose: 1,600 mg - Labs Labs: 04/09/18 04:20 04/09/18 04:20 PT 11.0 Seconds (9.8-13.1) 04/04/18 04:25 INR 1.0 (0.9-1.2) 04/04/18 04:25 APTT 27.2 Seconds (25.6-37.1) 04/04/18 04:25 - Constitutional Appears: No Acute Distress - Head Exam Head Exam: NORMAL INSPECTION - Eye Exam Eye Exam: PERRL - ENT Exam ENT Exam: Normal Exam - Neck Exam Neck Exam: Normal Inspection - Respiratory Exam Respiratory Exam: Decreased Breath Sounds (Left base), Rales (crackles L base) , Rhonchi ( scattered) - Cardiovascular Exam Cardiovascular Exam: REGULAR RHYTHM, Murmur - GI/Abdominal Exam GI & Abdominal Exam: Soft, Normal Bowel Sounds - Extremities Exam Additional comments: L arm AV fistula working with bruit and thrill - Back Exam Back Exam: NORMAL INSPECTION - Neurological Exam Neurological Exam: Alert, Oriented x3. absent: Motor Sensory Deficit - Psychiatric Exam Psychiatric exam: Normal Affect - Skin Skin Exam: Warm Assessment and Plan (1) Pleural effusion, bilateral Status: Acute (2) Status post thoracentesis Status: Acute (3) SHERRY (acute kidney injury) Status: Acute (4) CKD (chronic kidney disease) requiring chronic dialysis Status: Acute (5) COPD (chronic obstructive pulmonary disease) Status: Chronic (6) Multilobar lung infiltrate Status: Acute (7) Chest pain Status: Acute - Assessment and Plan (Free Text) Plan: persistant pleural effusion s/p L thoracenresis , no R effusion s/p R thoracentesis , chest pain relieved with NTG , EKG ,troponins x3 , f/u Cardiology
--- NOTE | 2018-04-09 16:52 | RAD ---
HISTORY: Chest pain. COMPARISON: 04/07/2018 FINDINGS: LUNGS: Stable consolidative changes left lower lobe. PLEURA: Stable left pleural effusion. CARDIOVASCULAR: No significant interval change compared to the prior examination(s). OSSEOUS STRUCTURES: No significant abnormalities. VISUALIZED UPPER ABDOMEN: Normal. OTHER FINDINGS: Removal of support apparatus since the prior study: Right IJ catheter IMPRESSION: Stable left lower lobe infiltrate and pleural effusion. The findings however are situated by rotation.
--- NOTE | 2018-04-09 22:25 | CARD ---
APPROVED REPORT EKG Measurement Heart [id number] <Conclusion> Sinus tachycardia Nonspecific lateral ST/T changes Abnormal ECG
[2018-04-10 03:13] LABS: ANCA SCREEN NEGATIVE (NEGATIVE)
[2018-04-10 05:50] LABS: BASO % 0.7 % (0.0-2.0); EOS # 0.1 K/uL (0.0-0.7); HEMOGLOBIN 8.8 g/dL (12.0-18.0); LYMPH # 1.4 K/uL (1.0-4.3); LYMPH % 19.4 % (20.0-40.0); MEAN CELL VOLUME 103.4 fl (80.0-94.0); MEAN CORPUSCULAR HEMOGLOBIN 34.2 pg (27.0-31.0); MEAN CORPUSCULAR HGB CONC 33.1 g/dL (33.0-37.0); MONO # 0.6 K/uL (0.0-0.8); MONO % 9.1 % (0.0-10.0); NEUT # 4.9 K/uL (1.8-7.0); NEUT % 68.8 % (50.0-75.0); RBC 2.56 Mil/uL (4.40-5.90); RED CELL DISTRIBUTION WIDTH 17.7 % (11.5-14.5); WHITE BLOOD COUNT 7.1 K/uL (4.8-10.8)
[2018-04-10 05:58] LABS: TROPONIN I 0.026 ng/mL (0.00-0.120)
[2018-04-10 06:18] LABS: ALB/GLOB RATIO 1.1 (1.0-2.1); ALBUMIN 3.4 g/dL (3.5-5.0); CALCIUM 6.9 mg/dL (8.4-10.2)
[2018-04-10] MEDS: Albuterol-Ipratrop 3 mg / 0.5 (3 ml) UD INH SCH ×3 (07:16→23:22)
--- NOTE | 2018-04-10 08:29 | CP.PCM.PN ---
Subjective - Date & Time of Evaluation Date of Evaluation: 04/10/18 Time of Evaluation: 08:29 - Subjective Subjective: No acute overnight events. Overnight pt had Tmax of 100.9, fever resolved subsequently. Pt states that he does not want to speak and stopped speaking and refuse to answer further questions. [facility] [id number] Objective - Vital Signs/Intake and Output Vital Signs (last 24 hours): Temp Pulse Resp BP Pulse Ox 99.1 F 91 H 18 126/57 L 98 04/10/18 07:49 04/10/18 07:49 04/10/18 07:49 04/10/18 07:49 04/10/18 07:49 - Medications Medications: Current Medications Albuterol/Ipratropium (Duoneb 3 Mg/0.5 Mg (3 Ml) Ud) 3 ml INH RQ8 [facility] Last Admin: 04/10/18 07:16 Dose: 3 ml Aspirin (Aspirin Chewable) 81 mg PO DAILY [facility] Last Admin: 04/09/18 08:46 Dose: 81 mg Atorvastatin Calcium (Lipitor) 20 mg PO DAILY@2200 [facility] Last Admin: 04/09/18 21:25 Dose: 20 mg Cinacalcet (Sensipar) 30 mg PO DAILY [facility] Last Admin: 04/09/18 08:50 Dose: 30 mg Clopidogrel Bisulfate (Plavix) 75 mg PO DAILY [facility] Last Admin: 04/09/18 08:46 Dose: 75 mg Docusate Sodium (Colace) 100 mg PO BID [facility] Last Admin: 04/09/18 17:04 Dose: 100 mg Epoetin José Manuel (Procrit) 4,000 unit IV TTS [facility] Last Admin: 04/07/18 09:15 Dose: 4,000 unit Famotidine (Pepcid) 20 mg PO BID [facility] Last Admin: 04/09/18 17:04 Dose: 20 mg Furosemide (Lasix) 20 mg IVP BID [facility] Last Admin: 04/09/18 18:19 Dose: 20 mg Guaifenesin/Dextromethorphan (Mucinex-Dm 600-30 Mg) 1 tab PO BID PRN PRN Reason: Cough Last Admin: 04/08/18 08:53 Dose: 1 tab Heparin Sodium (Porcine) (Heparin) 5,000 units SC Q8 [facility] PRN Reason: Protocol Last Admin: 04/10/18 00:42 Dose: 5,000 units Lactulose (Enulose) 20 gm PO DAILY PRN PRN Reason: Constipation Last Admin: 04/08/18 16:56 Dose: 20 gm Metoprolol Tartrate (Lopressor) 12.5 mg PO Q12 [facility] Last Admin: 04/09/18 21:25 Dose: 12.5 mg Nitroglycerin (Nitrostat Sl Tab) 0.4 mg SL Q5M PRN PRN Reason: chest pain Last Admin: 04/09/18 11:49 Dose: 0.4 mg Fluticasone/Salmeterol (Advair Diskus 500/50) 1 puff INH Q12 [facility] Last Admin: 04/09/18 21:24 Dose: 1 puff Sertraline HCl (Zoloft) 25 mg PO HS [facility] Last Admin: 04/09/18 21:25 Dose: 25 mg Sevelamer HCl (Renagel) 1,600 mg PO TID [facility] Last Admin: 04/09/18 17:04 Dose: 1,600 mg - Labs Labs: 04/10/18 04:20 04/10/18 04:20 PT 11.0 Seconds (9.8-13.1) 04/04/18 04:25 INR 1.0 (0.9-1.2) 04/04/18 04:25 APTT 27.2 Seconds (25.6-37.1) 04/04/18 04:25 - Constitutional Appears: No Acute Distress, Other (NC @ 2L) - Head Exam Head Exam: ATRAUMATIC, NORMAL INSPECTION - Eye Exam Eye Exam: EOMI - ENT Exam ENT Exam: Mucous Membranes Moist - Neck Exam Neck Exam: Full ROM - Respiratory Exam Respiratory Exam: Rhonchi (b/l in the lower lobes L>R), NORMAL BREATHING PATTERN - Cardiovascular Exam Cardiovascular Exam: REGULAR RHYTHM, +S1, +S2 - GI/Abdominal Exam GI & Abdominal Exam: Soft, Normal Bowel Sounds. absent: Tenderness - Extremities Exam Extremities Exam: Normal Inspection, Pedal Edema. 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 Pleural effusion B/L -dyspnea much improved -Has preserved EF on last echo -ProBNP on admission is 41,200. No pedal edema -CT of chest: IMPRESSION: Bilateral pleural effusions left larger than right. Underlying compressive atelectasis primarily affecting both lower lobes. Multifocal primarily upper lobe alveolar infiltrates likely infectious/ inflammatory. Pulmonary edema is a less likely consideration. -pulmonary on board -CXR (04/07/18): interval improvement in the lungs since previous study. Persistent left pleural effusion. -CXR (04/09/18): stable lower lobe infiltrate and pleural effusion. Situated by rotation. -IR: right sided thoracentesis (04/04) showed 900 cc. L thoracentesis (04/06) 1000cc of sero-sangunious fluid. -R thoracentesis fluid; no fungal growth, no mycobacterium and no culture growth x 3 days- follow up. Per Light's criteria, effusion fluid is transudative. Fluid pathology neg for malignancy. -L thoracentesis: fluid culture pending. Per light's criteria fluid is exudative (LDH fluid/LDH serum--0.68). Neg gram stain and fungal culture thus far. Chest pain -Resolved, not present at this time -ProBNP on admission is 41,200. No pedal edema. -repeat proBNP today -Last echo 10/16/17: LV EF 55%, borderline dilated LV, severe Aortic regurgitation, severe mitral regurgitation, mild tricuspid regurgitation. -Cardiac cath 10/17/17: has 60-70% stenosis of a small Ramus branch of LAD ( otherwise mild lesions detected) -Troponin x 3 neg -repeat trop 04/09/18 neg x 1 -EKG: PVC's and anterolateral ST inversion new compared to old EKG -Echo on 04/03/18: LV is severely dilated. EF 60-65%. Severe mitral regurgitation , severe aortic regurgitation and moderate tricuspid regurgitation. -EKG 04/09: sinus tachycardia with nonspecific lateral ST/T changes -Cardio consulted, appreciate recommendations, plan for cath in the future. -pt seen by Dr. Allen 04/09, waiting further recommendations New infiltrate on CXR -CXR (04/09/18): stable lower lobe infiltrate and pleural effusion. Situated by rotation. -1x episode of low grade fever overnight 100.9 -currently afebrile, WBC 7 -will monitor vitals for now -abx, urine and blood culture with subsequent temperature spike Dyspnea on extertion: -improving -Multifactorial likely secondary to COPD exacerbation and CHF -CXR (04/09/18): stable lower lobe infiltrate and pleural effusion -Continue 20 mg IV Lasix BID COPD (chronic obstructive pulmonary disease) with mild exacerbation -improving -No wheezing/rhonchi noted on exam, sob probably secondary to fluid in lungs -Chest X Ray: small left sided effusion -CXR on 03/31/18: Moderate pulmonary venous congestion and small left pleural effusion. -CXR 04/09/18: stable lower lobe infiltrate and pleural effusion. Situated by rotation. -s/p prednisone 40mg -c/w Duonebs q8 -C/w advair Severe aortic regurgitation and Mitral regurgitation -Pending evaluation at [facility] for valve replacement ESRD (end stage renal disease) -On HD T//Mon -s/p tunnel cath R IJ 04/09/18 -Left AV shunt clotted; fistulogram 04/06 with IR. An occlusion was noted in the fistula, underwent thrombectomy with IR. -Nephrology- Dr. 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
--- NOTE | 2018-04-10 09:54 | CP.PCM.CON ---
History of Present Illness - History of Present Illness History of Present Illness: Consultation for evaluation of chest pain / unstable angina / prior cath in showed moderate RI and LCx disease HPI: Review of Systems - Review of Systems Systems not reviewed;Unavailable: Acuity of Condition - Constitutional Constitutional: As Per HPI - EENT Eyes: As Per HPI Ears: As Per HPI Nose/Mouth/Throat: As Per HPI - Cardiovascular Cardiovascular: As Per HPI - Respiratory Respiratory: As Per HPI - Gastrointestinal Gastrointestinal: As Per HPI - Genitourinary Genitourinary: As Per HPI - Reproductive: Male Reproductive:Male: As Per HPI - Musculoskeletal Musculoskeletal: As Per HPI - Integumentary Integumentary: As Per HPI - Neurological Neurological: As Per HPI - Psychiatric Psychiatric: As Per HPI - Endocrine Endocrine: As Per HPI - Hematologic/Lymphatic Hematologic: As Per HPI Past Patient History - Infectious Disease Hx of Infectious Diseases: None - Past Medical History & Family History Past Medical History?: Yes - Past Social History Smoking Status: Former Smoker Alcohol: Other (Hx of former alcohol abuse) Drugs: Denies Home Situation {Lives}: Alone - CARDIAC Hx Cardiac Disorders: Yes Hx Congestive Heart Failure: Yes Hx Hypertension: Yes - PULMONARY Hx Respiratory Disorders: Yes Hx Chronic Obstructive Pulmonary Disease (COPD): Yes Hx Pneumonia: Yes - NEUROLOGICAL Hx Neurological Disorder: Yes Hx Meningitis: Yes Hx Seizures: Yes - HEENT Hx HEENT Problems: No - RENAL Hx Chronic Kidney Disease: Yes Hx Dialysis: Yes - ENDOCRINE/METABOLIC Hx Endocrine Disorders: No - HEMATOLOGICAL/ONCOLOGICAL Hx Blood Disorders: Yes Hx Anemia: Yes Hx Human Immunodeficiency Virus (HIV): No - INTEGUMENTARY Hx Dermatological Problems: No - MUSCULOSKELETAL/RHEUMATOLOGICAL Hx Musculoskeletal Disorders: Yes Hx Arthritis: Yes - GASTROINTESTINAL Hx Gastrointestinal Disorders: Yes Hx Hemorrhoids: Yes - GENITOURINARY/GYNECOLOGICAL Hx Genitourinary Disorders: No - PSYCHIATRIC Hx Psychophysiologic Disorder: Yes Hx Anxiety: Yes Hx Depression: Yes - SURGICAL HISTORY Hx Surgeries: Yes Hx Coronary Stent: No Other/Comment: L eyebrow laceration - ANESTHESIA Hx Anesthesia: Yes Hx Anesthesia Reactions: No Hx Malignant Hyperthermia: No Meds Allergies/Adverse Reactions: Allergies Allergy/AdvReac Type Severity Reaction Status Date / Time sulfamethoxazole Allergy RASH Verified 02/12/18 09:51 [From ] trimethoprim [From ] Allergy RASH Verified 02/12/18 09:51 - Medications Medications: Current Medications Albuterol/Ipratropium (Duoneb 3 Mg/0.5 Mg (3 Ml) Ud) 3 ml INH RQ8 [facility] Last Admin: 04/10/18 07:16 Dose: 3 ml Aspirin (Aspirin Chewable) 81 mg PO DAILY [facility] Last Admin: 04/09/18 08:46 Dose: 81 mg Atorvastatin Calcium (Lipitor) 20 mg PO DAILY@2200 [facility] Last Admin: 04/09/18 21:25 Dose: 20 mg Cinacalcet (Sensipar) 30 mg PO DAILY [facility] Last Admin: 04/09/18 08:50 Dose: 30 mg Clopidogrel Bisulfate (Plavix) 75 mg PO DAILY [facility] Last Admin: 04/09/18 08:46 Dose: 75 mg Docusate Sodium (Colace) 100 mg PO BID [facility] Last Admin: 04/09/18 17:04 Dose: 100 mg Epoetin José Manuel (Procrit) 4,000 unit IV TTS [facility] Last Admin: 04/07/18 09:15 Dose: 4,000 unit Famotidine (Pepcid) 20 mg PO BID [facility] Last Admin: 04/09/18 17:04 Dose: 20 mg Furosemide (Lasix) 20 mg IVP BID [facility] Last Admin: 04/09/18 18:19 Dose: 20 mg Guaifenesin/Dextromethorphan (Mucinex-Dm 600-30 Mg) 1 tab PO BID PRN PRN Reason: Cough Last Admin: 04/08/18 08:53 Dose: 1 tab Heparin Sodium (Porcine) (Heparin) 5,000 units SC Q8 [facility] PRN Reason: Protocol Last Admin: 04/10/18 00:42 Dose: 5,000 units Lactulose (Enulose) 20 gm PO DAILY PRN PRN Reason: Constipation Last Admin: 04/08/18 16:56 Dose: 20 gm Metoprolol Tartrate (Lopressor) 12.5 mg PO Q12 [facility] Last Admin: 04/09/18 21:25 Dose: 12.5 mg Nitroglycerin (Nitrostat Sl Tab) 0.4 mg SL Q5M PRN PRN Reason: chest pain Last Admin: 04/09/18 11:49 Dose: 0.4 mg Fluticasone/Salmeterol (Advair Diskus 500/50) 1 puff INH Q12 [facility] Last Admin: 04/09/18 21:24 Dose: 1 puff Sertraline HCl (Zoloft) 25 mg PO HS [facility] Last Admin: 04/09/18 21:25 Dose: 25 mg Sevelamer HCl (Renagel) 1,600 mg PO TID [facility] Last Admin: 04/09/18 17:04 Dose: 1,600 mg Physical Exam - Constitutional Appears: Well - Head Exam Head Exam: ATRAUMATIC, NORMAL INSPECTION, NORMOCEPHALIC - Eye Exam Eye Exam: EOMI, Normal appearance, PERRL Pupil Exam: NORMAL ACCOMODATION, PERRL - ENT Exam ENT Exam: Mucous Membranes Moist, Normal Exam - Neck Exam Neck exam: Positive for: Normal Inspection - Respiratory Exam Respiratory Exam: Clear to Auscultation Bilateral, NORMAL BREATHING PATTERN - Cardiovascular Exam Cardiovascular Exam: REGULAR RHYTHM, RRR, Systolic Murmur - GI/Abdominal Exam GI & Abdominal Exam: Normal Bowel Sounds, Soft. absent: Tenderness - Extremities Exam Extremities exam: Positive for: normal inspection - Back Exam Back exam: NORMAL INSPECTION - Neurological Exam Neurological exam: Alert, CN II-XII Intact, Normal Gait, Oriented x3, Reflexes Normal - Psychiatric Exam Psychiatric exam: Normal Affect, Normal Mood - Skin Skin Exam: Dry, Intact, Normal Color, Warm Results - Vital Signs Recent Vital Signs: Last Vital Signs Temp 99.1 F 04/10/18 07:49 Pulse 91 H 04/10/18 07:49 Resp 18 04/10/18 07:49 BP 126/57 L 04/10/18 07:49 Pulse Ox 98 04/10/18 07:49 - Labs Result Diagrams: 04/10/18 04:20 04/10/18 04:20 Labs: Laboratory Results - last 24 hr 04/06/18 04/06/18 04/09/18 16:25 16:25 09:57 WBC RBC Hgb Hct MCV MCH MCHC RDW Plt Count MPV Neut % (Auto) Lymph % (Auto) [place] % (Auto) Eos % (Auto) Baso % (Auto) Neut # (Auto) Lymph # (Auto) [place] # (Auto) Eos # (Auto) Baso # (Auto) Sodium Potassium Chloride Carbon Dioxide Anion Gap BUN Creatinine Est GFR ( Amer) Est GFR (Non-Af Amer) Random Glucose Calcium Total Bilirubin AST ALT Alkaline Phosphatase Troponin I NT-Pro-B Natriuret Pep 82703 H Total Protein Albumin Globulin Albumin/Globulin Ratio ANCA Screen Negative c-ANCA Titer TNP Proteinase 3 (PR3) <1.0 <1.0 p-ANCA Titer TNP Atypical p-ANCA Titer TNP Myeloperoxidase Ab <1.0 <1.0 04/09/18 04/09/18 04/10/18 13:35 21:15 04:20 WBC RBC Hgb Hct MCV MCH MCHC RDW Plt Count MPV Neut % (Auto) Lymph % (Auto) [place] % (Auto) Eos % (Auto) Baso % (Auto) Neut # (Auto) Lymph # (Auto) [place] # (Auto) Eos # (Auto) Baso # (Auto) Sodium 137 Potassium 5.2 H Chloride 100 Carbon Dioxide 23 Anion Gap 19 BUN 54 H Creatinine 7.7 H* D Est GFR ( Amer) 9 Est GFR (Non-Af Amer) 7 Random Glucose 81 Calcium 6.9 L Total Bilirubin 0.5 AST 12 L D ALT 18 L Alkaline Phosphatase 56 Troponin I 0.0200 0.0250 0.0260 NT-Pro-B Natriuret Pep Total Protein 6.4 Albumin 3.4 L Globulin 3.0 Albumin/Globulin Ratio 1.1 ANCA Screen c-ANCA Titer Proteinase 3 (PR3) p-ANCA Titer Atypical p-ANCA Titer Myeloperoxidase Ab 04/10/18 04:20 WBC 7.1 RBC 2.56 L Hgb 8.8 L Hct 26.5 L MCV 103.4 H MCH 34.2 H MCHC 33.1 RDW 17.7 H Plt Count 168 MPV 8.0 Neut % (Auto) 68.8 Lymph % (Auto) 19.4 L [place] % (Auto) 9.1 Eos % (Auto) 2.0 Baso % (Auto) 0.7 Neut # (Auto) 4.9 Lymph # (Auto) 1.4 [place] # (Auto) 0.6 Eos # (Auto) 0.1 Baso # (Auto) 0.0 Sodium Potassium Chloride Carbon Dioxide Anion Gap BUN Creatinine Est GFR ( Amer) Est GFR (Non-Af Amer) Random Glucose Calcium Total Bilirubin AST ALT Alkaline Phosphatase Troponin I NT-Pro-B Natriuret Pep Total Protein Albumin Globulin Albumin/Globulin Ratio ANCA Screen c-ANCA Titer Proteinase 3 (PR3) p-ANCA Titer Atypical p-ANCA Titer Myeloperoxidase Ab Assessment & Plan (1) Unstable angina Assessment and Plan: patient has moderate disease in RI considering hx of mood disorder and concerns with compliance would recommend to do functional study with exercise nuclear stress prior to any revascularization as patient will need to be on DAPT for atleast 1 year if PCI needed would recommend to aggressively titrate meds for angina Status: Acute (2) Chest pain Status: Acute (3) Pleural effusion, bilateral Status: Acute Priority: High (4) Status post thoracentesis Status: Acute (5) CHF (congestive heart failure) Status: Acute (6) ANCA-associated vasculitis Status: Chronic Priority: High
--- NOTE | 2018-04-10 10:05 | CP.PCM.PN ---
Subjective - Date & Time of Evaluation Date of Evaluation: 04/10/18 Time of Evaluation: 10:04 - Subjective Subjective: Patient is out of bed appears to be comfortable No acute distress Objective - Vital Signs/Intake and Output Vital Signs (last 24 hours): Temp Pulse Resp BP Pulse Ox 99.1 F 91 H 18 126/57 L 98 04/10/18 07:49 04/10/18 07:49 04/10/18 07:49 04/10/18 07:49 04/10/18 07:49 - Medications Medications: Current Medications Albuterol/Ipratropium (Duoneb 3 Mg/0.5 Mg (3 Ml) Ud) 3 ml INH RQ8 [facility] Last Admin: 04/10/18 07:16 Dose: 3 ml Aspirin (Aspirin Chewable) 81 mg PO DAILY [facility] Last Admin: 04/09/18 08:46 Dose: 81 mg Atorvastatin Calcium (Lipitor) 20 mg PO DAILY@2200 [facility] Last Admin: 04/09/18 21:25 Dose: 20 mg Cinacalcet (Sensipar) 30 mg PO DAILY [facility] Last Admin: 04/09/18 08:50 Dose: 30 mg Clopidogrel Bisulfate (Plavix) 75 mg PO DAILY [facility] Last Admin: 04/09/18 08:46 Dose: 75 mg Docusate Sodium (Colace) 100 mg PO BID [facility] Last Admin: 04/09/18 17:04 Dose: 100 mg Epoetin José Manuel (Procrit) 4,000 unit IV TTS [facility] Last Admin: 04/07/18 09:15 Dose: 4,000 unit Famotidine (Pepcid) 20 mg PO BID [facility] Last Admin: 04/09/18 17:04 Dose: 20 mg Furosemide (Lasix) 20 mg IVP BID [facility] Last Admin: 04/09/18 18:19 Dose: 20 mg Guaifenesin/Dextromethorphan (Mucinex-Dm 600-30 Mg) 1 tab PO BID PRN PRN Reason: Cough Last Admin: 04/08/18 08:53 Dose: 1 tab Heparin Sodium (Porcine) (Heparin) 5,000 units SC Q8 [facility] PRN Reason: Protocol Last Admin: 04/10/18 00:42 Dose: 5,000 units Lactulose (Enulose) 20 gm PO DAILY PRN PRN Reason: Constipation Last Admin: 06/03/18 16:56 Dose: 20 gm Metoprolol Tartrate (Lopressor) 12.5 mg PO Q12 [facility] Last Admin: 04/09/18 21:25 Dose: 12.5 mg Nitroglycerin (Nitrostat Sl Tab) 0.4 mg SL Q5M PRN PRN Reason: chest pain Last Admin: 04/09/18 11:49 Dose: 0.4 mg Fluticasone/Salmeterol (Advair Diskus 500/50) 1 puff INH Q12 [facility] Last Admin: 04/09/18 21:24 Dose: 1 puff Sertraline HCl (Zoloft) 25 mg PO HS [facility] Last Admin: 04/09/18 21:25 Dose: 25 mg Sevelamer HCl (Renagel) 1,600 mg PO TID [facility] Last Admin: 04/09/18 17:04 Dose: 1,600 mg - Labs Labs: 04/10/18 04:20 04/10/18 04:20 PT 11.0 Seconds (9.8-13.1) 04/04/18 04:25 INR 1.0 (0.9-1.2) 04/04/18 04:25 APTT 27.2 Seconds (25.6-37.1) 04/04/18 04:25 - Constitutional Appears: No Acute Distress - ENT Exam ENT Exam: Mucous Membranes Moist - Respiratory Exam Respiratory Exam: NORMAL BREATHING PATTERN. absent: Chest Wall Tenderness, Rales - Cardiovascular Exam Cardiovascular Exam: REGULAR RHYTHM. absent: JVD, Rubs - GI/Abdominal Exam GI & Abdominal Exam: Soft, Normal Bowel Sounds - Extremities Exam Extremities Exam: absent: Calf Tenderness - Back Exam Back Exam: absent: CVA tenderness (L), CVA tenderness (R) - Neurological Exam Neurological Exam: Alert - Psychiatric Exam Psychiatric exam: Normal Affect - Skin Skin Exam: absent: Cyanosis Assessment and Plan (1) CKD (chronic kidney disease) requiring chronic dialysis Assessment & Plan: Status post thrombectomy of the left AV shunt Patient to have dialysis shortly from the AV shunt Right subclavian catheter removed Patient is stable from the nephrology clinical point of view. 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 stable angina admitted for rule out ACS. Last echo 10/16/17: LV EF WNL, borderline dilated LV, severe Aortic regurgitation, severe mitral regurgitation, mild tricuspid regurgitation. Cardiac cath 10/17/17 hyperphosphatemia continue phosphorus binder Secondary hyperparathyroidism continue calcitriol and Sensipar Schedule for hemodialysis for tomorrow. Anemia continue EPO Status: Acute
[2018-04-10] MEDS: Fluticasone-Salmeterol 500-50mcg Diskus INH SCH ×2 (10:45→21:32)
--- NOTE | 2018-04-10 11:35 | VASCULAR ---
PROCEDURE: Date of procedure: 04/06/2018 1. left upper extremity AV fistula angiogram 2. Percutaneous balloon angioplasty outflow cephalic vein Medication: Anesthesia administered by anesthesiologist along with physiologic monitoring. 3 cc 2 percent lidocaine EBL: 5 cc Contrast: 25 ml Visipaque Fluoro time: 79.8 seconds Radiation: 6.48 mGy HISTORY: End-stage renal disease. Thrombosed left arm AV fistula PHYSICIAN(S): NATHAN PONCE MD TECHNIQUE: Detailed history and physical was performed prior to the case. The relative risks and indications of the procedure were explained to the patient and informed consent obtained. The patient was placed supine on the angiography table and the left arm was prepped and draped in usual sterile fashion. The patient was sedated by the anesthesiologist and monitoring provided throughout the procedure. The left arm AV fistula was punctured near the elbow in an antegrade direction with a micropuncture set. A 5 Greek catheter was placed. An overlapping left upper extremity AV fistula angiogram was performed. Central venous imaging was obtained. A reflux fistulogram was performed to evaluate arterial anastomosis. The catheter was removed and hemostasis obtained. FINDINGS: Left arm AV fistula angiogram showed occluded outflow cephalic vein with multiple large collateral veins present. 40 percent outflow vein stenosis is present near the arterial anastomosis within the cephalic vein. Additionally, a 40 percent cephalic arch stenosis identified. Central venogram is normal. Arterial anastamosis is normal. The 5 Greek dilator was exchanged over a guidewire for a 6 Greek vascular sheath. Through the sheath, an angled glide catheter and a Glidewire was was advanced into the outflow cephalic vein. The occluded cephalic vein segment was successfully crossed. The catheter positioned within the cephalic arch and a venogram again performed. Percutaneous balloon angioplasty was then performed using a 7 mm x 6mm balloon catheter in the stenotic and occluded outflow vein. Following prolonged balloon angioplasty a repeat fistula angiogram was performed. No residual stenosis or occlusion is present within the cephalic vein. IMPRESSION: Left upper extremity AV fistula angiogram occlusion of the cephalic vein along with multiple areas of severe stenoses. The occluded cephalic vein and stenotic cephalic vein segments was successfully treated with 7 millimeter percutaneous balloon angioplasty. There remains a 40 percent juxta-anastomotic stenosis of the outflow cephalic vein. Normal central venogram. A great thrill is present at completion of case.
[2018-04-10] MEDS ORDERED: Promethazine/Cod 6.25mg-10mg/5ml Syr UD PO PRN (12:07)
[2018-04-10] MEDS ORDERED: Cefepime 1 GM in Sodium Chloride 0.9% 100 ML IVPB SCH (12:15)
--- NOTE | 2018-04-10 14:31 | CP.PCM.PN ---
Subjective - Date & Time of Evaluation Date of Evaluation: 04/10/18 Time of Evaluation: 11:40 - Subjective Subjective: S/P Thoracentesis b/l SOB , orthopnea , nausea Objective - Vital Signs/Intake and Output Vital Signs (last 24 hours): Temp Pulse Resp BP Pulse Ox 101.9 F H 100 H 18 127/41 L 96 04/10/18 12:00 04/10/18 12:00 04/10/18 12:00 04/10/18 12:00 04/10/18 12:00 - Medications Medications: Current Medications Albuterol/Ipratropium (Duoneb 3 Mg/0.5 Mg (3 Ml) Ud) 3 ml INH RQ8 [facility] Last Admin: 04/10/18 07:16 Dose: 3 ml Aspirin (Aspirin Chewable) 81 mg PO DAILY [facility] Last Admin: 04/10/18 13:56 Dose: 81 mg Atorvastatin Calcium (Lipitor) 20 mg PO DAILY@2200 [facility] Last Admin: 04/09/18 21:25 Dose: 20 mg Cinacalcet (Sensipar) 30 mg PO DAILY [facility] Last Admin: 04/10/18 13:56 Dose: 30 mg Clopidogrel Bisulfate (Plavix) 75 mg PO DAILY [facility] Last Admin: 04/10/18 13:56 Dose: 75 mg Docusate Sodium (Colace) 100 mg PO BID [facility] Last Admin: 04/10/18 10:49 Dose: Not Given Epoetin José Manuel (Procrit) 4,000 unit IV TTS [facility] Last Admin: 04/07/18 09:15 Dose: 4,000 unit Famotidine (Pepcid) 20 mg PO BID [facility] Last Admin: 04/10/18 10:49 Dose: Not Given Furosemide (Lasix) 20 mg IVP BID [facility] Last Admin: 04/10/18 10:45 Dose: 20 mg Guaifenesin/Dextromethorphan (Mucinex-Dm 600-30 Mg) 1 tab PO BID PRN PRN Reason: Cough Last Admin: 04/08/18 08:53 Dose: 1 tab Heparin Sodium (Porcine) (Heparin) 5,000 units SC Q8 [facility] PRN Reason: Protocol Last Admin: 04/10/18 10:46 Dose: Not Given Cefepime HCl 1 gm/ Sodium (Chloride) 100 mls @ 100 mls/hr IVPB Q8 [facility] PRN Reason: Protocol Last Admin: 04/10/18 13:54 Dose: 100 mls/hr Lactulose (Enulose) 20 gm PO DAILY PRN PRN Reason: Constipation Last Admin: 04/08/18 16:56 Dose: 20 gm Metoprolol Tartrate (Lopressor) 12.5 mg PO Q12 [facility] Last Admin: 04/10/18 09:00 Dose: Not Given Nitroglycerin (Nitrostat Sl Tab) 0.4 mg SL Q5M PRN PRN Reason: chest pain Last Admin: 04/10/18 13:55 Dose: 0.4 mg Promethazine HCl/Codeine (Phenergan/Codeine Oral Syrup) 5 ml PO Q6 PRN PRN Reason: Cough Fluticasone/Salmeterol (Advair Diskus 500/50) 1 puff INH Q12 [facility] Last Admin: 04/10/18 10:45 Dose: 1 puff Sertraline HCl (Zoloft) 25 mg PO HS [facility] Last Admin: 04/09/18 21:25 Dose: 25 mg Sevelamer HCl (Renagel) 1,600 mg PO TID [facility] Last Admin: 04/10/18 10:46 Dose: Not Given - Labs Labs: 04/10/18 04:20 04/10/18 04:20 PT 11.0 Seconds (9.8-13.1) 04/04/18 04:25 INR 1.0 (0.9-1.2) 04/04/18 04:25 APTT 27.2 Seconds (25.6-37.1) 04/04/18 04:25 - Constitutional Appears: Other (mild distress) - Head Exam Head Exam: NORMAL INSPECTION - Eye Exam Eye Exam: PERRL - ENT Exam ENT Exam: Normal Exam - Neck Exam Neck Exam: Normal Inspection Additional comments: R IJ remoed - Respiratory Exam Respiratory Exam: Decreased Breath Sounds (left base, ), Rales (crackels L base , ), Rhonchi - Cardiovascular Exam Cardiovascular Exam: REGULAR RHYTHM, Murmur - GI/Abdominal Exam GI & Abdominal Exam: Soft, Normal Bowel Sounds - Extremities Exam Additional comments: L arm AV fistula working with bruit and thrill - Back Exam Back Exam: NORMAL INSPECTION - Neurological Exam Neurological Exam: Alert, Oriented x3. absent: Motor Sensory Deficit - Psychiatric Exam Psychiatric exam: Normal Affect - Skin Skin Exam: Warm Assessment and Plan (1) Pleural effusion, bilateral Status: Acute (2) Status post thoracentesis Status: Acute (3) SHERRY (acute kidney injury) Status: Acute (4) CKD (chronic kidney disease) requiring chronic dialysis Status: Acute (5) COPD (chronic obstructive pulmonary disease) Status: Chronic (6) Multilobar lung infiltrate Status: Acute (7) Chest pain Status: Acute (8) CHF (congestive heart failure) Status: Acute (9) Chest pain Status: Acute (10) Fever Status: Acute - Assessment and Plan (Free Text) Plan: T 101.9 , had blood C-S x 1 , Chest pain relieved with NTG , CHF acute on chronic diastolic, MR , AR , TR , CAD , for STT , f/u Cardiology,
[2018-04-10] MEDS ORDERED: Sodium Chloride 0.9% 1,000 ML IV SCH (15:30)
[2018-04-10] MEDS: Epoetin Alfa 4000 UNIT/ML Inj IV SCH (17:05)
[2018-04-10 20:14] VITALS: RESP 18
[2018-04-10] MEDS: Cefepime 1 GM in Sodium Chloride 0.9% 100 ML IVPB SCH (21:34)
[2018-04-11] MEDS: Cefepime 1 GM in Sodium Chloride 0.9% 100 ML IVPB SCH ×2 (05:01→13:45)
[2018-04-11 06:00] LABS: BASO % 0.6 % (0.0-2.0); EOS # 0.1 K/uL (0.0-0.7); EOS % 0.7 % (0.0-4.0); HEMOGLOBIN 8.7 g/dL (12.0-18.0); LYMPH # 1.1 K/uL (1.0-4.3); MEAN CELL VOLUME 101.8 fl (80.0-94.0); MEAN CORPUSCULAR HEMOGLOBIN 34.2 pg (27.0-31.0); MEAN CORPUSCULAR HGB CONC 33.5 g/dL (33.0-37.0); MEAN PLATELET VOLUME 8.2 fl (7.2-11.7); MONO # 0.7 K/uL (0.0-0.8); MONO % 10.2 % (0.0-10.0); NEUT # 5.2 K/uL (1.8-7.0); NEUT % 72.5 % (50.0-75.0); RBC 2.55 Mil/uL (4.40-5.90); WHITE BLOOD COUNT 7.2 K/uL (4.8-10.8)
[2018-04-11 07:26] LABS: ALB/GLOB RATIO 1.1 (1.0-2.1); ALBUMIN 3.3 g/dL (3.5-5.0); CALCIUM 7.3 mg/dL (8.4-10.2)
[2018-04-11] MEDS: Albuterol-Ipratrop 3 mg / 0.5 (3 ml) UD INH SCH ×3 (08:06→23:31)
--- NOTE | 2018-04-11 09:23 | CP.PCM.PN ---
Subjective - Date & Time of Evaluation Date of Evaluation: 04/11/18 Time of Evaluation: 09:21 - Subjective Subjective: No acute overnight events. Pt states that his breathing has mildly improved since previous day. Denies chest, palpitations, n/v/d/c. [facility] used [id number] Objective - Vital Signs/Intake and Output Vital Signs (last 24 hours): Temp Pulse Resp BP Pulse Ox 98.4 F 86 18 116/55 L 97 04/11/18 07:44 04/11/18 07:44 04/11/18 07:44 04/11/18 07:44 04/11/18 07:44 Intake and Output: 04/11/18 04/11/18 06:59 18:59 Intake Total 990 Balance 990 - Medications Medications: Current Medications Albuterol/Ipratropium (Duoneb 3 Mg/0.5 Mg (3 Ml) Ud) 3 ml INH RQ8 [facility] Last Admin: 04/11/18 08:06 Dose: 3 ml Aspirin (Aspirin Chewable) 81 mg PO DAILY [facility] Last Admin: 04/10/18 13:56 Dose: 81 mg Atorvastatin Calcium (Lipitor) 20 mg PO DAILY@2200 [facility] Last Admin: 04/10/18 21:33 Dose: 20 mg Cinacalcet (Sensipar) 30 mg PO DAILY [facility] Last Admin: 04/10/18 13:56 Dose: 30 mg Clopidogrel Bisulfate (Plavix) 75 mg PO DAILY [facility] Last Admin: 04/10/18 13:56 Dose: 75 mg Docusate Sodium (Colace) 100 mg PO BID [facility] Last Admin: 04/10/18 17:04 Dose: Not Given Epoetin José Manuel (Procrit) 4,000 unit IV TTS [facility] Last Admin: 04/10/18 17:05 Dose: 4,000 unit Famotidine (Pepcid) 20 mg PO BID [facility] Last Admin: 04/10/18 17:05 Dose: Not Given Furosemide (Lasix) 20 mg IVP BID [facility] Last Admin: 04/10/18 17:06 Dose: Not Given Guaifenesin/Dextromethorphan (Mucinex-Dm 600-30 Mg) 1 tab PO BID PRN PRN Reason: Cough Last Admin: 04/08/18 08:53 Dose: 1 tab Heparin Sodium (Porcine) (Heparin) 5,000 units SC Q8 [facility] PRN Reason: Protocol Last Admin: 04/11/18 00:27 Dose: 5,000 units Cefepime HCl 1 gm/ Sodium (Chloride) 100 mls @ 100 mls/hr IVPB Q8@0600,1400, 2200 [facility] PRN Reason: Protocol Last Admin: 04/11/18 05:01 Dose: 100 mls/hr Lactulose (Enulose) 20 gm PO DAILY PRN PRN Reason: Constipation Last Admin: 04/08/18 16:56 Dose: 20 gm Metoprolol Tartrate (Lopressor) 12.5 mg PO Q12 [facility] Last Admin: 04/10/18 21:33 Dose: 12.5 mg Nitroglycerin (Nitrostat Sl Tab) 0.4 mg SL Q5M PRN PRN Reason: chest pain Last Admin: 04/10/18 13:55 Dose: 0.4 mg Promethazine HCl/Codeine (Phenergan/Codeine Oral Syrup) 5 ml PO Q6 PRN PRN Reason: Cough Fluticasone/Salmeterol (Advair Diskus 500/50) 1 puff INH Q12 [facility] Last Admin: 04/10/18 21:32 Dose: 1 puff Sertraline HCl (Zoloft) 25 mg PO HS [facility] Last Admin: 04/10/18 21:33 Dose: 25 mg Sevelamer HCl (Renagel) 1,600 mg PO TID [facility] Last Admin: 04/10/18 17:10 Dose: Not Given - Labs Labs: 04/11/18 04:20 04/11/18 04:20 PT 11.0 Seconds (9.8-13.1) 04/04/18 04:25 INR 1.0 (0.9-1.2) 04/04/18 04:25 APTT 27.2 Seconds (25.6-37.1) 04/04/18 04:25 - Constitutional Appears: No Acute Distress - Head Exam Head Exam: ATRAUMATIC, NORMAL INSPECTION - Eye Exam Eye Exam: EOMI, Normal appearance - ENT Exam ENT Exam: Mucous Membranes Moist - Respiratory Exam Respiratory Exam: Rhonchi (b/l in the lower lobes), NORMAL BREATHING PATTERN. absent: Wheezes - Cardiovascular Exam Cardiovascular Exam: REGULAR RHYTHM, +S1, +S2 - GI/Abdominal Exam GI & Abdominal Exam: Soft, Normal Bowel Sounds. absent: Tenderness - Extremities Exam Extremities Exam: Full ROM. 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 Pleural effusion B/L -dyspnea much improved -Has preserved EF on last echo -ProBNP on admission is 41,200. No pedal edema -CT of chest: IMPRESSION: Bilateral pleural effusions left larger than right. Underlying compressive atelectasis primarily affecting both lower lobes. Multifocal primarily upper lobe alveolar infiltrates likely infectious/ inflammatory. Pulmonary edema is a less likely consideration. -pulmonary on board -CXR (04/07/18): interval improvement in the lungs since previous study. Persistent left pleural effusion. -CXR (04/09/18): stable lower lobe infiltrate and pleural effusion. Situated by rotation. -IR: right sided thoracentesis (04/04) showed 900 cc. L thoracentesis (04/06) 1000cc of sero-sangunious fluid. -R thoracentesis fluid; no fungal growth, no mycobacterium and no culture growth x 3 days- follow up. Per Light's criteria, effusion fluid is transudative. Fluid pathology neg for malignancy. -L thoracentesis: fluid culture pending. Per light's criteria fluid is exudative (LDH fluid/LDH serum--0.68). Neg gram stain and fungal culture thus far. Chest pain -Resolved, not present at this time -ProBNP on admission is 41,200. Repeat 24,800 -repeat proBNP today -Last echo 10/16/17: LV EF 55%, borderline dilated LV, severe Aortic regurgitation, severe mitral regurgitation, mild tricuspid regurgitation. -Cardiac cath 10/17/17: has 60-70% stenosis of a small Ramus branch of LAD ( otherwise mild lesions detected) -Troponin x 3 neg -repeat trop 04/09/18 neg x 1 -EKG: PVC's and anterolateral ST inversion new compared to old EKG -Echo on 04/03/18: LV is severely dilated. EF 60-65%. Severe mitral regurgitation , severe aortic regurgitation and moderate tricuspid regurgitation. -EKG 04/09: sinus tachycardia with nonspecific lateral ST/T changes -Cardio consulted, appreciate recommendations, plan for cath in the future. -pt seen by Dr. Allen 04/09, myocardial perfusion scan today 04/11, NPO this AM New infiltrate on CXR -CXR (04/09/18): stable lower lobe infiltrate and pleural effusion. Situated by rotation. -T this AM 100.4 -currently afebrile, WBC 7 -blood culture and urine culture pending -cefepime 04/10 D2 -promethazine/codeine for cough -Tylenol for fever -follow up cultures Dyspnea on extertion: -improving -Multifactorial likely secondary to COPD exacerbation and CHF -CXR (04/09/18): stable lower lobe infiltrate and pleural effusion -Continue 20 mg IV Lasix BID COPD (chronic obstructive pulmonary disease) with mild exacerbation -improving -No wheezing/rhonchi noted on exam, sob probably secondary to fluid in lungs -Chest X Ray: small left sided effusion -CXR on 03/31/18: Moderate pulmonary venous congestion and small left pleural effusion. -CXR 04/09/18: stable lower lobe infiltrate and pleural effusion. Situated by rotation. -s/p prednisone 40mg -c/w Duonebs q8 -C/w advair Severe aortic regurgitation and Mitral regurgitation -Pending evaluation at [facility] for valve replacement ESRD (end stage renal disease) -On HD T//Mon -s/p tunnel cath R IJ 04/09/18 -Left AV shunt clotted; fistulogram 04/06 with IR. An occlusion was noted in the fistula, underwent thrombectomy with IR. -Nephrology- Dr. 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
[2018-04-11] MEDS: Fluticasone-Salmeterol 500-50mcg Diskus INH SCH (11:06)
[2018-04-11 11:10] LABS: BASO % 0.4 % (0.0-2.0); EOS % 0.6 % (0.0-4.0); HEMOGLOBIN 9.8 g/dL (12.0-18.0); LYMPH # 0.9 K/uL (1.0-4.3); LYMPH % 12.9 % (20.0-40.0); MEAN CELL VOLUME 102.6 fl (80.0-94.0); MEAN CORPUSCULAR HEMOGLOBIN 33.6 pg (27.0-31.0); MEAN CORPUSCULAR HGB CONC 32.7 g/dL (33.0-37.0); MEAN PLATELET VOLUME 7.4 fl (7.2-11.7); MONO # 0.6 K/uL (0.0-0.8); MONO % 9.2 % (0.0-10.0); NEUT # 5.2 K/uL (1.8-7.0); NEUT % 76.9 % (50.0-75.0); RBC 2.91 Mil/uL (4.40-5.90); RED CELL DISTRIBUTION WIDTH 17.5 % (11.5-14.5); WHITE BLOOD COUNT 6.7 K/uL (4.8-10.8)
[2018-04-11 11:17] LABS: INR 1.3 (0.9-1.2); PROTHROMBIN TIME 13.9 Seconds (9.8-13.1)
--- NOTE | 2018-04-11 11:21 | CP.PCM.PN ---
Subjective - Date & Time of Evaluation Date of Evaluation: 04/11/18 Time of Evaluation: 11:21 - Subjective Subjective: Patient complaining of chest pain and RT called in. Patient has changes in the EKG and he may be going for cardiac catheterization now. Objective - Vital Signs/Intake and Output Vital Signs (last 24 hours): Temp Pulse Resp BP Pulse Ox 98.4 F 86 18 116/55 L 97 04/11/18 07:44 04/11/18 07:44 04/11/18 07:44 04/11/18 07:44 04/11/18 07:44 Intake and Output: 04/11/18 04/11/18 06:59 18:59 Intake Total 990 Balance 990 - Medications Medications: Current Medications Albuterol/Ipratropium (Duoneb 3 Mg/0.5 Mg (3 Ml) Ud) 3 ml INH RQ8 [facility] Last Admin: 04/11/18 08:06 Dose: 3 ml Aspirin (Aspirin Chewable) 81 mg PO DAILY [facility] Last Admin: 04/10/18 13:56 Dose: 81 mg Atorvastatin Calcium (Lipitor) 20 mg PO DAILY@2200 [facility] Last Admin: 04/10/18 21:33 Dose: 20 mg Cinacalcet (Sensipar) 30 mg PO DAILY [facility] Last Admin: 04/10/18 13:56 Dose: 30 mg Clopidogrel Bisulfate (Plavix) 75 mg PO DAILY [facility] Last Admin: 04/11/18 11:02 Dose: 75 mg Docusate Sodium (Colace) 100 mg PO BID [facility] Last Admin: 04/10/18 17:04 Dose: Not Given Epoetin José Manuel (Procrit) 4,000 unit IV TTS [facility] Last Admin: 04/10/18 17:05 Dose: 4,000 unit Famotidine (Pepcid) 20 mg PO BID [facility] Last Admin: 04/10/18 17:05 Dose: Not Given Furosemide (Lasix) 20 mg IVP BID [facility] Last Admin: 04/10/18 17:06 Dose: Not Given Guaifenesin/Dextromethorphan (Mucinex-Dm 600-30 Mg) 1 tab PO BID PRN PRN Reason: Cough Last Admin: 04/08/18 08:53 Dose: 1 tab Heparin Sodium (Porcine) (Heparin) 5,000 units SC Q8 [facility] PRN Reason: Protocol Last Admin: 04/11/18 00:27 Dose: 5,000 units Cefepime HCl 1 gm/ Sodium (Chloride) 100 mls @ 100 mls/hr IVPB Q8@0600,1400, 2200 [facility] PRN Reason: Protocol Last Admin: 04/11/18 05:01 Dose: 100 mls/hr Lactulose (Enulose) 20 gm PO DAILY PRN PRN Reason: Constipation Last Admin: 04/08/18 16:56 Dose: 20 gm Metoprolol Tartrate (Lopressor) 12.5 mg PO Q12 [facility] Last Admin: 04/11/18 11:03 Dose: 12.5 mg Nitroglycerin (Nitrostat Sl Tab) 0.4 mg SL Q5M PRN PRN Reason: chest pain Last Admin: 04/10/18 13:55 Dose: 0.4 mg Promethazine HCl/Codeine (Phenergan/Codeine Oral Syrup) 5 ml PO Q6 PRN PRN Reason: Cough Fluticasone/Salmeterol (Advair Diskus 500/50) 1 puff INH Q12 [facility] Last Admin: 04/11/18 11:06 Dose: 1 puff Sertraline HCl (Zoloft) 25 mg PO HS [facility] Last Admin: 04/10/18 21:33 Dose: 25 mg Sevelamer HCl (Renagel) 1,600 mg PO TID [facility] Last Admin: 04/10/18 17:10 Dose: Not Given - Labs Labs: 04/11/18 04:20 04/11/18 04:20 PT 13.9 Seconds (9.8-13.1) H 04/11/18 10:56 INR 1.3 (0.9-1.2) H 04/11/18 10:56 APTT 27.2 Seconds (25.6-37.1) 04/04/18 04:25 - Constitutional Appears: No Acute Distress - ENT Exam ENT Exam: Mucous Membranes Moist - Neck Exam Neck Exam: absent: Lymphadenopathy - Respiratory Exam Respiratory Exam: absent: Chest Wall Tenderness - Cardiovascular Exam Cardiovascular Exam: REGULAR RHYTHM, RRR. absent: Gallop - GI/Abdominal Exam GI & Abdominal Exam: Soft, Normal Bowel Sounds. absent: Guarding - Extremities Exam Extremities Exam: absent: Calf Tenderness - Back Exam Back Exam: absent: CVA tenderness (L) - Neurological Exam Neurological Exam: Alert - Psychiatric Exam Psychiatric exam: Normal Affect Assessment and Plan (1) CKD (chronic kidney disease) requiring chronic dialysis Assessment & Plan: patient developed chest pain and RT called. Showed abnormal changes in the EKG patient is going for cardiac catheterization. The rest of the medical problem as is and as noted Status post thrombectomy of the left AV shunt Right subclavian catheter removed Patient is stable from the nephrology clinical point of view. 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 stable angina admitted for rule out ACS. Last echo 10/16/17: LV EF WNL, borderline dilated LV, severe Aortic regurgitation, severe mitral regurgitation, mild tricuspid regurgitation. Cardiac cath 10/17/17 hyperphosphatemia continue phosphorus binder Secondary hyperparathyroidism continue calcitriol and Sensipar Schedule for hemodialysis for tomorrow. Anemia continue EPO Status: Acute
[2018-04-11 11:30] LABS: ALB/GLOB RATIO 1.2 (1.0-2.1); ALBUMIN 3.8 g/dL (3.5-5.0); CALCIUM 7.8 mg/dL (8.4-10.2)
[2018-04-11 11:36] LABS: CK-MB 0.85 ng/mL (0.0-3.38)
[2018-04-11 11:38] LABS: TROPONIN I 0.139 ng/mL (0.00-0.120)
[2018-04-11 11:59] VITALS: BP 113/49; PULSE 101; TEMP 98.5; O2SAT 98
--- NOTE | 2018-04-11 12:27 | PCM.RRT ---
<Scarlet Carmichael - Last Filed: 04/11/18 12:33> [address] JUDGE Nurse Assessment - Situation CIRCUIT [facility] JUDGE Responder Arrival Time: 07:[address] Reason for Call: Chest Pain, Tachycardia - IV IV Inserted during CIRCUIT COURT JUDGE?: No - Respiratory Oxygen Delivery Method: Room Air - Ventilator Settings Ventilator Respiratory Rate Settin - Medication Medications Administered During CIRCUIT COURT JUDGE: stat dose of: lopressor, heparin, asa 325mg , nitro SL, lipator, and 1mg of Morphine - Stat Labs Ordered CIRCUIT [facility] JUDGE Stat Labs Ordered: CBC, BMP, PT/PTT, TROPONIN [facility] JUDGE Other Labs Ordered: CK-MB - Vital Signs Vital Signs: HR 130, BP 112/60 - Vital Signs at end of CIRCUIT COURT JUDGE Vital Signs at end of CIRCUIT COURT JUDGE: BP 113/49 HR 101 O2 [address] JUDGE - A) Acute Change in Patient: (Select all that apply): Staff member or family is worried about patient - Neurological Status (Select all that apply): Alert, Responsive, Verbal - Respiratory Oxygen Delivery Method: Room Air - Constitutional Appears: In Acute Distress, Agitated - Head Head Exam: ATRAUMATIC, NORMAL INSPECTION - Eyes Eye Exam: EOMI - Respiratory Exam Respiratory Exam: Rhonchi (b/l), NORMAL BREATHING PATTERN. absent: Wheezes - Cardiovascular Exam Cardiovascular Exam: REGULAR RHYTHM, +S1, +S2 - GI/Abdominal Exam GI & Abdominal Exam: Soft, Normal Bowel Sounds. absent: Tenderness - Neurological Exam Neurological Exam: Alert, Awake - Extremities Exam Extremities Exam: Full ROM. 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 CIRCUIT COURT JUDGE was called this AM for chest pain and tachycardia by RN. RTT team arrived by bedside with Dr. Cavazos. Pt was in cardiology suite and multiple with EKG were taken, which showed acute changes. Significant ST changes were noted in lateral leads. PO meds were administered and pt was transferred back to telemetry. After medication administration, chest pain improved. Vitals at end of CIRCUIT COURT JUDGE was bp 1113/49, O2 98 and HR 101. NSTEMI -significant ST changes noted on EKG from this AM. EKG 04/11: read by me; ST depressions noted in leads V4-V6 -chest pain resolved with SL nitro -Given stat dose of asa, Lopressor, Lipitor, morphine 1mg, Heparin SC -ck-mk wnl, trops x 1 elevated at 0.139 -cardiology aware of acute changes -Per cardiology; keep pt NPO for cath later today <Nicole Cavazos - Last Filed: 04/11/18 17:13> Attending/Attestation - Attestation I have personally seen and examined this patient.: Yes I have fully participated in the care of the patient.: Yes I have reviewed all pertinent clinical information, including history, physical exam and plan: Yes Notes (Text): CIRCUIT COURT JUDGE called in the Cardio Unit bec of chest pain. Pt was scheduled for a Nuclear Stress test however before this could be done, he suddenly complained of chest pain. EKG done showed ST depression on the anterolateral leads A/P: 1. NSTEMI pt actively having chest pain Nitro SL given w.c improved the CP ASA, BB, Statin, stat given EKG showed new ST depression stat labs - Trop , CKMB Dr Allen called immediately, discussed case , he will come to see pt - will be in the hospital in 5 minutes Plan for Cardiac cath
--- NOTE | 2018-04-11 16:04 | CP.PCM.PN ---
Subjective - Date & Time of Evaluation Date of Evaluation: 04/11/18 Time of Evaluation: 12:00 - Subjective Subjective: Pleural effusion, s/p Thoracentesis. Pt had [employer] for chest pain earlier today, was Ex with Morphine and NTG with positive response. On examination, no A/D, no SOB, no CP, feels better after HD yesterday. Objective - Vital Signs/Intake and Output Vital Signs (last 24 hours): Temp Pulse Resp BP Pulse Ox 98.5 F 101 H 18 113/49 L 98 04/11/18 11:58 04/11/18 11:58 04/11/18 11:58 04/11/18 11:58 04/11/18 11:58 Intake and Output: 04/11/18 04/11/18 06:59 18:59 Intake Total 990 Balance 990 - Medications Medications: Current Medications Albuterol/Ipratropium (Duoneb 3 Mg/0.5 Mg (3 Ml) Ud) 3 ml INH RQ8 [facility] Last Admin: 04/11/18 15:44 Dose: Not Given Aspirin (Aspirin Chewable) 81 mg PO DAILY [facility] Last Admin: 04/11/18 11:20 Dose: Not Given Atorvastatin Calcium (Lipitor) 20 mg PO DAILY@2200 [facility] Last Admin: 04/10/18 21:33 Dose: 20 mg Cinacalcet (Sensipar) 30 mg PO DAILY [facility] Last Admin: 04/11/18 11:22 Dose: Not Given Clopidogrel Bisulfate (Plavix) 75 mg PO DAILY [facility] Last Admin: 04/11/18 11:02 Dose: 75 mg Docusate Sodium (Colace) 100 mg PO BID [facility] Last Admin: 04/11/18 11:21 Dose: Not Given Epoetin José Manuel (Procrit) 4,000 unit IV TTS [facility] Last Admin: 04/10/18 17:05 Dose: 4,000 unit Famotidine (Pepcid) 20 mg PO BID [facility] Last Admin: 04/11/18 11:22 Dose: Not Given Furosemide (Lasix) 20 mg IVP BID [facility] Last Admin: 04/11/18 08:56 Dose: 20 mg Guaifenesin/Dextromethorphan (Mucinex-Dm 600-30 Mg) 1 tab PO BID PRN PRN Reason: Cough Last Admin: 04/08/18 08:53 Dose: 1 tab Heparin Sodium (Porcine) (Heparin) 5,000 units SC Q8 [facility] PRN Reason: Protocol Last Admin: 04/11/18 11:21 Dose: Not Given Cefepime HCl 1 gm/ Sodium (Chloride) 100 mls @ 100 mls/hr IVPB Q8@0600,1400, 2200 [facility] PRN Reason: Protocol Last Admin: 04/11/18 13:45 Dose: 100 mls/hr Vancomycin HCl 1 gm/ Sodium (Chloride) 250 mls @ 125 mls/hr IVPB TTS [facility] PRN Reason: Protocol Lactulose (Enulose) 20 gm PO DAILY PRN PRN Reason: Constipation Last Admin: 04/08/18 16:56 Dose: 20 gm Metoprolol Tartrate (Lopressor) 12.5 mg PO Q12 [facility] Last Admin: 04/11/18 11:03 Dose: 12.5 mg Nitroglycerin (Nitrostat Sl Tab) 0.4 mg SL Q5M PRN PRN Reason: chest pain Last Admin: 04/11/18 14:23 Dose: 0.4 mg Promethazine HCl/Codeine (Phenergan/Codeine Oral Syrup) 5 ml PO Q6 PRN PRN Reason: Cough Fluticasone/Salmeterol (Advair Diskus 500/50) 1 puff INH Q12 [facility] Last Admin: 04/11/18 11:06 Dose: 1 puff Sertraline HCl (Zoloft) 25 mg PO HS [facility] Last Admin: 04/10/18 21:33 Dose: 25 mg Sevelamer HCl (Renagel) 1,600 mg PO TID [facility] Last Admin: 04/11/18 13:56 Dose: Not Given - Labs Labs: 04/11/18 10:56 04/11/18 10:56 PT 13.9 Seconds (9.8-13.1) H 04/11/18 10:56 INR 1.3 (0.9-1.2) H 04/11/18 10:56 APTT 27.2 Seconds (25.6-37.1) 04/04/18 04:25 - Constitutional Appears: No Acute Distress - Head Exam Head Exam: NORMAL INSPECTION - Eye Exam Eye Exam: PERRL - ENT Exam ENT Exam: Normal Exam - Neck Exam Neck Exam: Normal Inspection - Respiratory Exam Respiratory Exam: Decreased Breath Sounds (left base), Rales, Rhonchi Additional comments: Crackles L base - Cardiovascular Exam Cardiovascular Exam: REGULAR RHYTHM, Murmur - GI/Abdominal Exam GI & Abdominal Exam: Soft, Normal Bowel Sounds - Extremities Exam Additional comments: L arm AV fistula working with bruit and thrill. - Back Exam Back Exam: NORMAL INSPECTION - Neurological Exam Neurological Exam: Alert, Oriented x3. absent: Motor Sensory Deficit - Psychiatric Exam Psychiatric exam: Normal Affect - Skin Skin Exam: Warm Assessment and Plan (1) Pleural effusion, bilateral Status: Acute (2) Status post thoracentesis Status: Acute (3) SHERRY (acute kidney injury) Status: Acute (4) CKD (chronic kidney disease) requiring chronic dialysis Status: Acute (5) COPD (chronic obstructive pulmonary disease) Status: Chronic (6) Multilobar lung infiltrate Status: Acute (7) Chest pain Status: Acute (8) CHF (congestive heart failure) Status: Acute (9) Chest pain Status: Acute (10) Fever Status: Acute - Assessment and Plan (Free Text) Plan: Pt had STT yesterday, today will have cardiac Cath in [facility], continue current Tx.
--- NOTE | 2018-04-11 16:08 | CARD ---
APPROVED REPORT EKG Measurement Heart [id number] MT [id number] [id number] <Conclusion> Sinus tachycardia Septal infarct, age undetermined ST & T wave abnormality, consider lateral ischemia Abnormal ECG
--- NOTE | 2018-04-11 23:57 | CP.PCM.DIS ---
<Norma Barfield - Last Filed: 04/12/18 00:27> Provider - Provider Date of Admission: 03/29/18 18:12 Attending physician: Aaliyah Knott MD Primary care physician: Dr. Knott Consults: Dr. Echols (pulmonology), Dr. Allen (cardiology), Dr. Sandoval (nephrology), Dr. Diaz (IR), Dr. Simmons (psychiatry), Dr. Cleveland (vascular) Time Spent in preparation of Discharge (in minutes): 30 Diagnosis - Discharge Diagnosis (1) NSTEMI (non-ST elevated myocardial infarction) Status: Acute Priority: High (2) Pleural effusion, bilateral Status: Chronic Priority: Low (3) End stage renal disease Status: Chronic Priority: Medium (4) COPD exacerbation Status: Acute Priority: Low Hospital Course - Lab Results Lab Results: Micro Results 04/10/18 12:45 Blood S.aureus & Coag-Neg Staph PNA FISH - Preliminary 04/10/18 12:45 Blood Blood Culture - Preliminary Gram Positive Cocci 04/10/18 12:45 Blood Gram Stain - Final 04/07/18 12:33 Pleural Fluid Gram Stain - Final 04/07/18 12:33 Pleural Fluid Body Fluid Culture - Final No growth. 04/07/18 12:33 Pleural Fluid Fungal Culture - Preliminary 04/04/18 18:30 Body Fluid - Pleural Fluid Gram Stain - Final 04/04/18 18:30 Body Fluid - Pleural Fluid Body Fluid Culture - Final No growth. 04/04/18 18:30 Pleural Fluid Anaerobic Culture - Final NO ANAEROBES ISOLATED. 04/04/18 18:30 Pleural Fluid Fungal Culture - Preliminary 04/04/18 18:30 Other: Please Indicate Mycobacterial Culture - Preliminary 04/02/18 08:17 Sputum Gram Stain - Final 04/02/18 08:17 Sputum Sputum Culture - Final Yeast Species 04/02/18 07:59 Urine,Clean Catch Urine Culture - Final No Growth (<1,000 CFU/ML) Most Recent Lab Values WBC 6.7 K/uL (4.8-10.8) 04/11/18 10:56 RBC 2.91 Mil/uL (4.40-5.90) L 04/11/18 10:56 Hgb 9.8 g/dL (12.0-18.0) L 04/11/18 10:56 Hct 29.8 % (35.0-51.0) L 04/11/18 10:56 MCV 102.6 fl (80.0-94.0) H 04/11/18 10:56 MCH 33.6 pg (27.0-31.0) H 04/11/18 10:56 MCHC 32.7 g/dL (33.0-37.0) L 04/11/18 10:56 RDW 17.5 % (11.5-14.5) H 04/11/18 10:56 Plt Count 170 K/uL (130-400) 04/11/18 10:56 MPV 7.4 fl (7.2-11.7) 04/11/18 10:56 Neut % (Auto) 76.9 % (50.0-75.0) H 04/11/18 10:56 Lymph % (Auto) 12.9 % (20.0-40.0) L 04/11/18 10:56 [place] % (Auto) 9.2 % (0.0-10.0) 04/11/18 10:56 Eos % (Auto) 0.6 % (0.0-4.0) 04/11/18 10:56 Baso % (Auto) 0.4 % (0.0-2.0) 04/11/18 10:56 Neut # (Auto) 5.2 K/uL (1.8-7.0) 04/11/18 10:56 Lymph # (Auto) 0.9 K/uL (1.0-4.3) L 04/11/18 10:56 [place] # (Auto) 0.6 K/uL (0.0-0.8) 04/11/18 10:56 Eos # (Auto) 0.0 K/uL (0.0-0.7) 04/11/18 10:56 Baso # (Auto) 0.0 K/uL (0.0-0.2) 04/11/18 10:56 PT 13.9 Seconds (9.8-13.1) H 04/11/18 10:56 INR 1.3 (0.9-1.2) H 04/11/18 10:56 APTT 27.2 Seconds (25.6-37.1) 04/04/18 04:25 Sodium 139 mmol/l (132-148) 04/11/18 10:56 Potassium 4.9 MMOL/L (3.6-5.0) 04/11/18 10:56 Chloride 98 mmol/L (98-107) 04/11/18 10:56 Carbon Dioxide 28 mmol/L (22-30) 04/11/18 10:56 Anion Gap 18 (10-20) 04/11/18 10:56 BUN 36 mg/dl (9-20) H 04/11/18 10:56 Creatinine 5.6 mg/dl (0.8-1.5) H 04/11/18 10:56 Est GFR ( Amer) 12 04/11/18 10:56 Est GFR (Non-Af Amer) 10 04/11/18 10:56 Random Glucose 85 mg/dL (75-110) 04/11/18 10:56 Calcium 7.8 mg/dL (8.4-10.2) L 04/11/18 10:56 Phosphorus 5.3 mg/dl (2.5-4.5) H 03/30/18 13:01 Total Bilirubin 0.6 mg/dl (0.2-1.3) 04/11/18 10:56 AST 22 U/L (17-59) 04/11/18 10:56 ALT 29 U/L (21-72) 04/11/18 10:56 Alkaline Phosphatase 67 U/L (38-126) 04/11/18 10:56 Lactate Dehydrogenase 405 U/L (313-618) 04/03/18 15:11 CK-MB (Mass) 0.85 ng/mL (0.0-3.38) 04/11/18 10:56 Troponin I 0.1390 ng/mL (0.00-0.120) H* 04/11/18 10:56 NT-Pro-B Natriuret Pep 73156 pg/ml (0-900) H 04/09/18 09:57 Total Protein 7.1 G/DL (6.3-8.2) 04/11/18 10:56 Albumin 3.8 g/dL (3.5-5.0) 04/11/18 10:56 Globulin 3.3 gm/dL (2.2-3.9) 04/11/18 10:56 Albumin/Globulin Ratio 1.2 (1.0-2.1) 04/11/18 10:56 Procalcitonin 0.17 NG/ML (0.19-0.49) L 04/02/18 15:01 PTH Intact Whole Molec 159 pg/mL (14-64) H 03/30/18 13:01 Urine Color Yellow (YELLOW) 04/01/18 20:00 Urine Clarity Clear (Clear) 04/01/18 20:00 Urine pH 8.0 (5.0-8.0) 04/01/18 20:00 Ur Specific [place] 1.005 (1.003-1.030) 04/01/18 20:00 Urine Protein 100 mg/dL (NEGATIVE) 04/01/18 20:00 Urine Glucose (UA) 50 mg/dL (Normal) 04/01/18 20:00 Urine Ketones Negative mg/dL (NEGATIVE) 04/01/18 20:00 Urine Blood Large (NEGATIVE) 04/01/18 20:00 Urine Nitrate Negative (NEGATIVE) 04/01/18 20:00 Urine Bilirubin Negative (NEGATIVE) 04/01/18 20:00 Urine Urobilinogen 0.2-1.0 mg/dL (0.2-1.0) 04/01/18 20:00 Ur Leukocyte Esterase Negative Thai/uL (Negative) 04/01/18 20:00 Urine RBC (Auto) 104 /hpf (0-3) H 04/01/18 20:00 Urine Microscopic WBC 3 /hpf (0-5) 04/01/18 20:00 Ur Squamous Epith Cells 2 /hpf (0-5) 04/01/18 20:00 Urine Bacteria Rare (<OCC) 04/01/18 20:00 Ur Random Creatinine 59.1 mg/dL 04/03/18 12:05 U Random Total Protein 76.0 mg/dL (0.0-12.0) H 04/08/18 11:16 Fluid Source Pleural/thoracentesi 04/06/18 12:00 Fluid Appearance Bloody (CLEAR) 04/06/18 12:00 Fluid WBC 402.0 /mm3 (0.0-300.0) H 04/06/18 12:00 Fluid RBC 803620.0 /mm3 (0.0-0.0) H 04/06/18 12:00 Fluid Tot Cell Count 100 (0-0) H 04/06/18 12:00 Fluid Neutrophils 50.0 % (0-0) H 04/06/18 12:00 Fluid Lymphocytes 28.0 % (0-0) H 04/06/18 12:00 Fld Monocyte/Macrophag 22 % (0-0) H 04/06/18 12:00 Fluid Glucose 87 mg/dL (NONE ESTABLISHED) 04/06/18 12:00 Fluid Total Protein 3.0 g/dL (NONE ESTABLISHED) 04/06/18 12:00 Fluid LDH 276 IU (NONE ESTABLISHED) 04/06/18 12:00 Fluid Amylase < 30 mg/dL (NONE ESTABLISHED) 04/04/18 18:30 Fluid Triglycerides 15 mg/dL (NONE ESTABLISHED) 04/06/18 12:00 Fluid Comment Turbid 04/06/18 12:00 Pleural Lipase 3.0 U/L (<10) 04/06/18 12:00 Pleural Cholesterol TNP 04/04/18 18:30 Pleur Adenosine Deamin 7.1 U/L (<9.2) 04/06/18 12:00 ANCA Screen Negative (NEGATIVE) 04/06/18 16:25 c-ANCA Titer TNP 04/06/18 16:25 Proteinase 3 (PR3) <1.0 AI (<1.0) 04/06/18 16:25 p-ANCA Titer TNP 04/06/18 16:25 Atypical p-ANCA Titer TNP 04/06/18 16:25 Myeloperoxidase Ab <1.0 AI (<1.0) 04/06/18 16:25 Hep Bs Antigen Negative (NEGATIVE) 03/31/18 12:01 Hep Bs Antibody Negative (NEGATIVE) 03/31/18 12:01 Hep B Core IgM Ab Negative (NEGATIVE) 03/31/18 12:01 Hepatitis C Antibody Negative (NEGATIVE) 03/31/18 12:01 - Hospital Course Hospital Course: 68 yr old M admitted for chest pain with EKG changes and COPD exacerbation with PMHx including ESRD on HD TThS, HTN, COPD, 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 Patient was found to have recurrent bilateral pleural effusions for which he underwent thoracentesis. Patient had bacteremia positive for gram positive cocci and was started on antibiotics. Patient experienced an NSTEMI this AM and was transferred to [place] for cardiac catheterization and underwent coronary stenting. Nursing received report that patient was admitted to ICU at [place] for further observation and management as patient continued to experience chest pain and transient hypotension for which a code blue was called, this code was subsequently cancelled. - Date & Time of H&P Date of H&P: 03/29/18 Time of H&P: 20:47 Discharge Plan - Follow Up Plan Condition: STABLE Disposition: Trans to Other Acute Care Hosp Additional Instructions: Patient discharged to ICU in [place] after undergoing cardiac catheterization with coronary stenting at [place]. <Scarlet Carmichael - Last Filed: 04/12/18 17:50> Provider - Provider Date of Admission: 03/29/18 18:12 Attending physician: Aaliyah Knott MD Hospital Course - Lab Results Lab Results: Micro Results 04/04/18 18:30 Other: Please Indicate Mycobacterial Culture - Preliminary 04/10/18 12:45 Blood S.aureus & Coag-Neg Staph PNA FISH - Preliminary 04/10/18 12:45 Blood Blood Culture - Preliminary Gram Positive Cocci 04/10/18 12:45 Blood Gram Stain - Final 04/07/18 12:33 Pleural Fluid Gram Stain - Final 04/07/18 12:33 Pleural Fluid Body Fluid Culture - Final No growth. 04/07/18 12:33 Pleural Fluid Fungal Culture - Preliminary 04/04/18 18:30 Body Fluid - Pleural Fluid Gram Stain - Final 04/04/18 18:30 Body Fluid - Pleural Fluid Body Fluid Culture - Final No growth. 04/04/18 18:30 Pleural Fluid Anaerobic Culture - Final NO ANAEROBES ISOLATED. 04/04/18 18:30 Pleural Fluid Fungal Culture - Preliminary 04/02/18 08:17 Sputum Gram Stain - Final 04/02/18 08:17 Sputum Sputum Culture - Final Yeast Species 04/02/18 07:59 Urine,Clean Catch Urine Culture - Final No Growth (<1,000 CFU/ML) Most Recent Lab Values WBC 6.7 K/uL (4.8-10.8) 04/11/18 10:56 RBC 2.91 Mil/uL (4.40-5.90) L 04/11/18 10:56 Hgb 9.8 g/dL (12.0-18.0) L 04/11/18 10:56 Hct 29.8 % (35.0-51.0) L 04/11/18 10:56 MCV 102.6 fl (80.0-94.0) H 04/11/18 10:56 MCH 33.6 pg (27.0-31.0) H 04/11/18 10:56 MCHC 32.7 g/dL (33.0-37.0) L 04/11/18 10:56 RDW 17.5 % (11.5-14.5) H 04/11/18 10:56 Plt Count 170 K/uL (130-400) 04/11/18 10:56 MPV 7.4 fl (7.2-11.7) 04/11/18 10:56 Neut % (Auto) 76.9 % (50.0-75.0) H 04/11/18 10:56 Lymph % (Auto) 12.9 % (20.0-40.0) L 04/11/18 10:56 [place] % (Auto) 9.2 % (0.0-10.0) 04/11/18 10:56 Eos % (Auto) 0.6 % (0.0-4.0) 04/11/18 10:56 Baso % (Auto) 0.4 % (0.0-2.0) 04/11/18 10:56 Neut # (Auto) 5.2 K/uL (1.8-7.0) 04/11/18 10:56 Lymph # (Auto) 0.9 K/uL (1.0-4.3) L 04/11/18 10:56 [place] # (Auto) 0.6 K/uL (0.0-0.8) 04/11/18 10:56 Eos # (Auto) 0.0 K/uL (0.0-0.7) 04/11/18 10:56 Baso # (Auto) 0.0 K/uL (0.0-0.2) 04/11/18 10:56 PT 13.9 Seconds (9.8-13.1) H 04/11/18 10:56 INR 1.3 (0.9-1.2) H 04/11/18 10:56 APTT 27.2 Seconds (25.6-37.1) 04/04/18 04:25 Sodium 139 mmol/l (132-148) 04/11/18 10:56 Potassium 4.9 MMOL/L (3.6-5.0) 04/11/18 10:56 Chloride 98 mmol/L (98-107) 04/11/18 10:56 Carbon Dioxide 28 mmol/L (22-30) 04/11/18 10:56 Anion Gap 18 (10-20) 04/11/18 10:56 BUN 36 mg/dl (9-20) H 04/11/18 10:56 Creatinine 5.6 mg/dl (0.8-1.5) H 04/11/18 10:56 Est GFR ( Amer) 12 04/11/18 10:56 Est GFR (Non-Af Amer) 10 04/11/18 10:56 Random Glucose 85 mg/dL (75-110) 04/11/18 10:56 Calcium 7.8 mg/dL (8.4-10.2) L 04/11/18 10:56 Phosphorus 5.3 mg/dl (2.5-4.5) H 03/30/18 13:01 Total Bilirubin 0.6 mg/dl (0.2-1.3) 04/11/18 10:56 AST 22 U/L (17-59) 04/11/18 10:56 ALT 29 U/L (21-72) 04/11/18 10:56 Alkaline Phosphatase 67 U/L (38-126) 04/11/18 10:56 Lactate Dehydrogenase 405 U/L (313-618) 04/03/18 15:11 CK-MB (Mass) 0.85 ng/mL (0.0-3.38) 04/11/18 10:56 Troponin I 0.1390 ng/mL (0.00-0.120) H* 04/11/18 10:56 NT-Pro-B Natriuret Pep 20005 pg/ml (0-900) H 04/09/18 09:57 Total Protein 7.1 G/DL (6.3-8.2) 04/11/18 10:56 Albumin 3.8 g/dL (3.5-5.0) 04/11/18 10:56 Globulin 3.3 gm/dL (2.2-3.9) 04/11/18 10:56 Albumin/Globulin Ratio 1.2 (1.0-2.1) 04/11/18 10:56 Procalcitonin 0.17 NG/ML (0.19-0.49) L 04/02/18 15:01 PTH Intact Whole Molec 159 pg/mL (14-64) H 03/30/18 13:01 Urine Color Yellow (YELLOW) 04/01/18 20:00 Urine Clarity Clear (Clear) 04/01/18 20:00 Urine pH 8.0 (5.0-8.0) 04/01/18 20:00 Ur Specific [place] 1.005 (1.003-1.030) 04/01/18 20:00 Urine Protein 100 mg/dL (NEGATIVE) 04/01/18 20:00 Urine Glucose (UA) 50 mg/dL (Normal) 04/01/18 20:00 Urine Ketones Negative mg/dL (NEGATIVE) 04/01/18 20:00 Urine Blood Large (NEGATIVE) 04/01/18 20:00 Urine Nitrate Negative (NEGATIVE) 04/01/18 20:00 Urine Bilirubin Negative (NEGATIVE) 04/01/18 20:00 Urine Urobilinogen 0.2-1.0 mg/dL (0.2-1.0) 04/01/18 20:00 Ur Leukocyte Esterase Negative Thai/uL (Negative) 04/01/18 20:00 Urine RBC (Auto) 104 /hpf (0-3) H 04/01/18 20:00 Urine Microscopic WBC 3 /hpf (0-5) 04/01/18 20:00 Ur Squamous Epith Cells 2 /hpf (0-5) 04/01/18 20:00 Urine Bacteria Rare (<OCC) 04/01/18 20:00 Ur Random Creatinine 59.1 mg/dL 04/03/18 12:05 U Random Total Protein 76.0 mg/dL (0.0-12.0) H 04/08/18 11:16 Fluid Source Pleural/thoracentesi 04/06/18 12:00 Fluid Appearance Bloody (CLEAR) 04/06/18 12:00 Fluid WBC 402.0 /mm3 (0.0-300.0) H 04/06/18 12:00 Fluid RBC 918900.0 /mm3 (0.0-0.0) H 04/06/18 12:00 Fluid Tot Cell Count 100 (0-0) H 04/06/18 12:00 Fluid Neutrophils 50.0 % (0-0) H 04/06/18 12:00 Fluid Lymphocytes 28.0 % (0-0) H 04/06/18 12:00 Fld Monocyte/Macrophag 22 % (0-0) H 04/06/18 12:00 Fluid Glucose 87 mg/dL (NONE ESTABLISHED) 04/06/18 12:00 Fluid Total Protein 3.0 g/dL (NONE ESTABLISHED) 04/06/18 12:00 Fluid LDH 276 IU (NONE ESTABLISHED) 04/06/18 12:00 Fluid Amylase < 30 mg/dL (NONE ESTABLISHED) 04/04/18 18:30 Fluid Triglycerides 15 mg/dL (NONE ESTABLISHED) 04/06/18 12:00 Fluid Comment Turbid 04/06/18 12:00 Pleural Lipase 3.0 U/L (<10) 04/06/18 12:00 Pleural Cholesterol TNP 04/04/18 18:30 Pleur Adenosine Deamin 7.1 U/L (<9.2) 04/06/18 12:00 ANCA Screen Negative (NEGATIVE) 04/06/18 16:25 c-ANCA Titer TNP 04/06/18 16:25 Proteinase 3 (PR3) <1.0 AI (<1.0) 04/06/18 16:25 p-ANCA Titer TNP 04/06/18 16:25 Atypical p-ANCA Titer TNP 04/06/18 16:25 Myeloperoxidase Ab <1.0 AI (<1.0) 04/06/18 16:25 Hep Bs Antigen Negative (NEGATIVE) 03/31/18 12:01 Hep Bs Antibody Negative (NEGATIVE) 03/31/18 12:01 Hep B Core IgM Ab Negative (NEGATIVE) 03/31/18 12:01 Hepatitis C Antibody Negative (NEGATIVE) 03/31/18 12:01 - Hospital Course Hospital Course: After transfer to [place], pt underwent cardiac categorization. Post procedure pt had chest pain. Per nursing report; Code blue was called for chest pain and transient hypotension. Pt is admitted to ICU at [place] for further medical management. Physical exam is done on 04/11/18 before transfer to [place]. Discharge Exam - Head Exam Head Exam: ATRAUMATIC - Eye Exam Eye Exam: EOMI, Normal appearance - ENT Exam ENT Exam: Mucous Membranes Moist - Respiratory Exam Respiratory Exam: Clear to PA & Lateral, Rhonchi, NORMAL BREATHING PATTERN. absent: Wheezes - Cardiovascular Exam Cardiovascular Exam: REGULAR RHYTHM, +S1, +S2 - GI/Abdominal Exam GI & Abdominal Exam: Normal Bowel Sounds, Soft. absent: Tenderness - Extremities Exam Extremities exam: full ROM, normal inspection - Neurological Exam Neurological exam: Alert - Psychiatric Exam Psychiatric exam: Normal Affect, Normal Mood - Skin Skin Exam: Dry, Intact, Normal Color, Warm
== END 2018-04-12 00:26 | disposition short-term general hospital (02) | DRG 550 ==
LOC: H.ER 16:00 → H.ERHOLD 18:12 → H.TEL 21:59
PROVIDERS: ADMIT Family Medicine Geriatric Medicine; ATTEND Family Medicine Geriatric Medicine
PROC: 5A1D70Z Performance of Urinary Filtration, Intermittent, Less than 6 Hours Per Day (ICD-10-PCS; 2018-03-30)
PROC: 05HM33Z Insertion of Infusion Device into Right Internal Jugular Vein, Percutaneous Approach (ICD-10-PCS; 2018-04-04)
PROC: B513ZZA Fluoroscopy of Right Jugular Veins, Guidance (ICD-10-PCS; 2018-04-04)
PROC: 0W993ZX Drainage of Right Pleural Cavity, Percutaneous Approach, Diagnostic (ICD-10-PCS; 2018-04-04)
PROC: B51W1ZZ Fluoroscopy of Dialysis Shunt/Fistula using Low Osmolar Contrast (ICD-10-PCS; 2018-04-06)
PROC: 0W9B3ZX Drainage of Left Pleural Cavity, Percutaneous Approach, Diagnostic (ICD-10-PCS; 2018-04-06)
PROC: 057F3ZZ Dilation of Left Cephalic Vein, Percutaneous Approach (ICD-10-PCS; principal; 2018-04-06 10:30)
PROC: 05PY33Z Removal of Infusion Device from Upper Vein, Percutaneous Approach (ICD-10-PCS; 2018-04-09)
DX: I34.0 Nonrheumatic mitral (valve) insufficiency (principal); I21.4 Non-ST elevation (NSTEMI) myocardial infarction; I50.32 Chronic diastolic (congestive) heart failure; N17.9 Acute kidney failure, unspecified; R78.81 Bacteremia; I13.2 Hypertensive heart and chronic kidney disease with heart failure and with stage 5 chronic kidney disease, or end stage renal disease; I82.621 Acute embolism and thrombosis of deep veins of right upper extremity; N18.6 End stage renal disease; J90 Pleural effusion, not elsewhere classified; I07.1 Rheumatic tricuspid insufficiency; J44.1 Chronic obstructive pulmonary disease with (acute) exacerbation; I35.1 Nonrheumatic aortic (valve) insufficiency; F06.30 Mood disorder due to known physiological condition, unspecified; E87.5 Hyperkalemia; J98.11 Atelectasis; D64.9 Anemia, unspecified; F41.9 Anxiety disorder, unspecified; I25.10 Atherosclerotic heart disease of native coronary artery without angina pectoris; Z87.01 Personal history of pneumonia (recurrent); F32.9 Major depressive disorder, single episode, unspecified; M19.90 Unspecified osteoarthritis, unspecified site; Z99.2 Dependence on renal dialysis; G40.909 Epilepsy, unspecified, not intractable, without status epilepticus; I25.110 Atherosclerotic heart disease of native coronary artery with unstable angina pectoris; I77.6 Arteritis, unspecified; Z91.14 Patient's other noncompliance with medication regimen; N25.81 Secondary hyperparathyroidism of renal origin; E83.39 Other disorders of phosphorus metabolism; F10.10 Alcohol abuse, uncomplicated; F17.200 Nicotine dependence, unspecified, uncomplicated; Z59.0 Homelessness; F60.2 Antisocial personality disorder; I49.3 Ventricular premature depolarization; Z79.02 Long term (current) use of antithrombotics/antiplatelets; Z79.899 Other long term (current) drug therapy; Z86.11 Personal history of tuberculosis; Z95.2 Presence of prosthetic heart valve; Z95.5 Presence of coronary angioplasty implant and graft